=== PATIENT | male | born 1970 | race Caucasian/White ===

== ENCOUNTER 2019-12-23 07:11 | Outpatient (REF) | payer OTHER, SELFPAY ==
[2019-12-23 08:20] LABS: Cholesterol 139 mg/dL; Glucose Fasting 111 mg/dL (60-99); HDL Cholesterol 47 mg/dL; LDL Cholesterol Calculated 76 mg/dl; Triglycerides 81 mg/dL
== END 2019-12-23 07:12 | disposition home or self-care (01) ==
LOC: HO.LAB 07:11
PROVIDERS: PCP Internal Medicine; Visit Provider Internal Medicine
DX: E78.5 Hyperlipidemia, unspecified (principal)
CPT/HCPCS: 80061; 82947

== ENCOUNTER 2019-12-30 07:09 | Outpatient (REF) | payer OTHER, SELFPAY ==
[2019-12-30 07:51] LABS: MANUAL DIFF FLAG NO
[2019-12-30 07:54] LABS: Basophils Percent Auto 0.4 % (0-2); Eosinophils Absolute Auto 0.1 X10*3/uL (0.0-0.4); Eosinophils Percent Auto 0.7 % (0-4); Hematocrit 39.2 % (42-52); Hemoglobin 12.3 g/dl (14.0-18.0); Imm Gran Abs Auto 0.08 X10*3/uL (0.00-0.03); Imm Gran Pct Auto 0.8 % (0.0-0.4); Lymphocytes Absolute Auto 1.4 X10*3/uL (1.2-4.9); Lymphocytes Percent Auto 13.1 % (20-40); Mean Corpuscular HGB Conc 31.4 g/dl (31.0-36.0); Mean Corpuscular Hemoglobin 32.3 pg (27.0-33.0); Mean Corpuscular Volume 102.9 fL (80-98); Mean Platelet Volume 11.1 fL (9.4-12.4); Monocytes Absolute Auto 0.8 X10*3/uL (0.1-1.2); Monocytes Percent Auto 7.6 % (2-11); Neut%MD 77.4 %; Neutrophils Absolute Auto 8.1 X10*3/uL (2.0-8.3); Neutrophils Percent Auto 77.4 % (45-73); Platelet Count 202 X10*3/uL (160-400); Red Blood Count 3.81 X10*6/uL (4.60-5.80); Red Cell Distribution Width 12.9 % (11.0-16.0); WBCANC 10.4 X10*3/uL; White Blood Count 10.4 X10*3/uL (4.8-10.8)
== END 2019-12-30 07:10 | disposition home or self-care (01) ==
LOC: HO.LABR 07:09
PROVIDERS: PCP Internal Medicine; Visit Provider Psychiatry & Neurology Psychiatry
DX: Z79.899 Other long term (current) drug therapy (principal)
CPT/HCPCS: 36415; 85025

== ENCOUNTER 2020-01-03 14:52 | Outpatient (REF) | payer OTHER, SELFPAY | END 2020-01-03 14:53 | disposition home or self-care (01) | LOC: HO.LAB 14:52 | PROVIDERS: PCP Internal Medicine; Visit Provider Internal Medicine | DX: Z13.89 Encounter for screening for other disorder (principal) ==

== ENCOUNTER 2020-02-06 15:05 | Inpatient (IN) | payer OTHER, SELFPAY ==
[2020-02-06 15:47] VITALS: BP 142/86; PULSE 100; RESP 18; TEMP 37.3; O2SAT 98; BMI 25.6
--- NOTE | 2020-02-06 15:50 | ED.PSYCH ---
HPI - Psych General Chief Complaint: Psychiatric Symptoms Stated Complaint: crisis Time Seen by Provider: 02/06/20 15:50 Source: patient Mode of arrival: ambulatory Limitations: no limitations History of Present Illness HPI Narrative: This is a 50-year-old male presents ambulatory via triage apparently comes to the emergency room as advised by his therapist for disorganized behavior/delusional behavior. Patient reports he has history of schizoaffective disorder however in his primary care note is only documented history of bipolar disorder he is on several mood stabilizers and reports that he feels he is overmedicated and would like to have his medications check. Patient upon interview offers no medical complaints but does states that he was wrongly diagnosed in 1985 with schizoaffective disorder after he reported his suspicions on ?the clearing? of 1975; where airway had their memories ?erased?. Patient is calm states he has been running more poems recently. Denies any suicidal homicidal ideation. complaint: hallucinations Onset (ago): day(s) Relieving factors: none Exacerbating factors: none Related Data Home Medications Medication Instructions Recorded Confirmed albuterol sulfate 2 puff INHALATION Q4H 12/29/19 02/06/20 benztropine 1 tab PO DAILY 12/29/19 02/06/20 docusate sodium [DOK] 1 cap PO BID 12/29/19 02/06/20 famotidine 2 tab PO BID 12/29/19 01/26/20 fluticasone propion-salmeterol 1 puff PO BID 12/29/19 02/06/20 [Wixela Inhub] ibuprofen 1 tab PO Q8H 12/29/19 01/26/20 lithium carbonate 2 tab PO BID 12/29/19 02/06/20 perphenazine 1 tab PO TID 12/29/19 02/06/20 tamsulosin 1 cap PO DAILY 12/29/19 02/06/20 vitamin E 1 cap PO BID 12/29/19 02/06/20 clozapine 100 mg tablet 500 mg PO BEDTIME 01/26/20 02/06/20 hydroxyzine pamoate 1 cap PO TID PRN 02/06/20 02/06/20 perphenazine 2 mg PO BID-TID 02/06/20 02/06/20 Previous Rx's Medication Instructions Recorded cimetidine 300 mg tablet 300 mg PO Q12H #180 tab 10/22/20 lovastatin 40 mg tablet 40 mg PO DAILY #90 tab 01/29/20 Allergies Allergy/AdvReac Type Severity Reaction Status Date / Time divalproex sodium Allergy Severe PANCREATITI Verified 01/26/20 14:46 [From DEPAKOTE] S haloperidol [From Haldol] Allergy Intermediate DYSTONIC Verified 01/26/20 14:46 REACTION Review of Systems Review of Systems: Constitutional: No Weight loss, No Fever, No Chills, No Night Sweats, No Fatigue, No Malaise ENT/Mouth: No Hearing loss, No Ear Pain, No Nasal Congestion, No Sinus Pain, No Hoarseness, No sore throat, No Rhinorrhea, No Swallowing Difficulty Eyes: No Eye Pain, No Swelling, No Redness, No Foreign Body, No Discharge, No Vision Changes Cardiovascular: No Chest Pain, No SOB, No Dyspnea on Exertion, No Orthopnea, No Edema, No Palpitations Respiratory: No Cough, No Sputum, No Wheezing, No Smoke Exposure, No Dyspnea Gastrointestinal: No Nausea, No Vomiting, No Diarrhea, No Constipation, No abdominal Pain, No Hematochezia, No Melena Genitourinary: no irregular bleeding, No Dysuria, No Urinary Frequency, No Hematuria, No Urinary Incontinence, No Urgency, No Flank Pain, No Urinary Flow Changes, No Hesitancy Musculoskeletal: No joint pain, No Myalgias, No Joint Swelling Skin: No Skin Lesions, No rash Neuro: No Weakness, No Numbness, No Paresthesias, No Loss of Consciousness, No Dizziness, No Headache Psych: As noted in HPI, No Depression, No SI/HI/AH/VH, No Social Issues Heme/Lymph: No Bruising, No Bleeding,No Lymphadenopathy Endocrine: No Polyuria, No Polydipsia, No Temperature Intolerance Yes all other systems are reviewed and are negative [facility] Past Medical History Medical History COPD (chronic obstructive pulmonary disease) Elevated cholesterol GERD (gastroesophageal reflux disease) Schizoaffective disorder Surgical History History of bilateral cataract extraction History of bunionectomy History of excision of mass Family History Family History (Updated 12/28/19 @ 10:13 by GARY Moore) Father Diabetes Mother No problems noted. Paternal Grandfather Gastric cancer Social History Social History Alcohol intake: current Alcohol intake frequency: a few times a month Alcohol type: beer Smoking Status: Current every day smoker Packs Per Day: 1 Cigarettes Per Day: 20.0 Years Smoked: 36 Smoked in Last 30 Days: Yes Second Hand Smoke Exposure: No Use of substances other than those prescribed or required for medical reasons: No Advance Directives: No Advance Directives Information Provided: Yes Physical Exam Vital Signs: Vital Signs: Last Vital Signs Temp 99.2 F 02/06/20 16:03 Pulse 100 02/06/20 16:03 Resp 18 02/06/20 16:03 BP 142/86 H 02/06/20 16:03 Pulse Ox 98 02/06/20 16:03 Body Mass Index 25.6 Reviewed Const: Other: disheveled appearing General: cooperative; No acute distress or intoxicated appearing Nutritional Appearance: average body habitus Orientation/consciousness: patient oriented x3 HENMT: Head: Yes normal to inspection Ears: hearing grossly normal bilaterally Eyes: General: appearance normal, both eyes and all related structures Visual Jerez: normal visual jerez by confrontation Neck: Neck: Yes normal visual inspection and No tender Thyroid: Thyroid normal Chest: Chest palpation & inspection: normal inspection of the chest Resp: Effort & Inspection: normal respiratory effort Cardio: Jugular venous distension: no JVD GI: Inspection: Yes normal to inspection Percussion: Yes normal to percussion Auscultation: normal bowel sounds : General: Yes no CVA tenderness Back/Spine/Pelvis: Back: no CVA tenderness Skin: General skin exam: no rashes or lesions noted Neuro: General: patient oriented x3 Extrem: General: Yes normal to inspection Course Course Course Narrative: 1550 Offers no medical complaints. Will go ahead initiate medical screening labs as well as lithium level and COVID-19 for medical clearance and obtain psychiatric evaluation by crisis team. Plan reviewed patient agreeable. 2000 Has remained stable throughout the course of the ED stay here. Lab work overall stable with UA still pending. I was informed that [facility] and had already evaluated patient the field and is a bed search already. Medically clear at this time for psychiatric placement. 2100 Sign-out to Patricia SOFIA pending psychiatric placement offers no other complaints. Med rec completed. He is on Clozaril psych consult placed. MDM - Psych Restraints Face to Face Assessment: Face to Face Assessment: Current Situation: After assessment of the patient, a review of the pertinent medical record and a discussion with nursing staff, I feel the patient requires a restrain intervention. Reaction To: [] Medical Condition: [] Behavioral State: [] Continued Need: [] Lab Data Result diagrams: 02/06/20 16:22 02/06/20 16:22 Labs: Lab Results 02/06/20 02/06/20 02/06/20 Range/Units 16:22 16:22 16:22 WBC 12.1 H (4.8-10.8) X10*3/uL RBC 4.37 L (4.60-5.80) X10*6/uL Hgb 14.0 (14.0-18.0) g/dl Hct 43.3 (42-52) % MCV 99.1 H (80-98) fL MCH 32.0 (27.0-33.0) pg MCHC 32.3 (31.0-36.0) g/dl RDW 12.7 (11.0-16.0) % Plt Count 220 (160-400) X10*3/uL MPV 10.4 (9.4-12.4) fL Immature Gran % (Auto) 0.5 H (0.0-0.4) % Neut % (Auto) 78.2 H (45-73) % Lymph % (Auto) 14.4 L (20-40) % [place] % (Auto) 5.9 (2-11) % Eos % (Auto) 0.7 (0-4) % Baso % (Auto) 0.3 (0-2) % Lymph # (Auto) 1.7 (1.2-4.9) X10*3/uL [place] # (Auto) 0.7 (0.1-1.2) X10*3/uL Eos # (Auto) 0.1 (0.0-0.4) X10*3/uL Baso # (Auto) 0.0 (0.0-0.2) X10*3/uL Abs Immat Gran (auto) 0.06 H (0.00-0.03) X10*3/uL Absolute Neuts (auto) 9.5 H (2.0-8.3) X10*3/uL Absolute Nucleated RBC 0.000 (0.0-0.012) X10*3/uL Nucleated RBC % (auto) 0.0 (0.0-0.2) /100WBC Sodium 138 (135-145) mmol/L Potassium 4.4 (3.3-5.1) mmol/l Chloride 105 (96-108) mmol/L Carbon Dioxide 25 (22-29) mmol/L Anion Gap 12 (12-20) BUN 12 (9-16) mg/dL Creatinine 1.00 (0.5-1.4) mg/dL Estim Creat Clear Calc 105.6 Estimated GFR > 60 Random Glucose 99 (60-115) mg/dL Calcium 9.0 (8.4-10.2) mg/dL Total Bilirubin 1.4 H (0.0-1.0) mg/dL AST 13 (5-37) U/L ALT 19 (0-40) U/L Alkaline Phosphatase 78 (39-117) U/L Total Protein 7.0 (6.5-8.0) g/dL Albumin 4.5 (3.5-5.0) g/dL Urine Color Urine Appearance Urine pH (5.0-8.0) Ur Specific [place] (1.005-1.025) Urine Protein (NEG-TRACE) MG/DL Urine Glucose (UA) (NEG) MG/DL Urine Ketones (NEG) MG/DL Urine Blood (NEG) Urine Nitrite (NEG) Ur Leukocyte Esterase (NEG) Urine Opiates Screen (Not Detect) Ur Barbiturates Screen (Not Detect) Ur Phencyclidine Scrn (Not Detect) Ur Amphetamines Screen (Not Detect) U Benzodiazepines Scrn (Not Detect) [place] 0.88 (0.60-1.20) mmol/L Urine Cocaine Screen (Not Detect) U Marijuana (THC) Screen (Not Detect) Ethyl Alcohol mg/dL COVID-19 (CARLY) (Negative) COVID-19 Clin Com 02/06/20 02/06/20 02/06/20 Range/Units 16:22 16:26 19:46 WBC (4.8-10.8) X10*3/uL RBC (4.60-5.80) X10*6/uL Hgb (14.0-18.0) g/dl Hct (42-52) % MCV (80-98) fL MCH (27.0-33.0) pg MCHC (31.0-36.0) g/dl RDW (11.0-16.0) % Plt Count (160-400) X10*3/uL MPV (9.4-12.4) fL Immature Gran % (Auto) (0.0-0.4) % Neut % (Auto) (45-73) % Lymph % (Auto) (20-40) % [place] % (Auto) (2-11) % Eos % (Auto) (0-4) % Baso % (Auto) (0-2) % Lymph # (Auto) (1.2-4.9) X10*3/uL [place] # (Auto) (0.1-1.2) X10*3/uL Eos # (Auto) (0.0-0.4) X10*3/uL Baso # (Auto) (0.0-0.2) X10*3/uL Abs Immat Gran (auto) (0.00-0.03) X10*3/uL Absolute Neuts (auto) (2.0-8.3) X10*3/uL Absolute Nucleated RBC (0.0-0.012) X10*3/uL Nucleated RBC % (auto) (0.0-0.2) /100WBC Sodium (135-145) mmol/L Potassium (3.3-5.1) mmol/l Chloride (96-108) mmol/L Carbon Dioxide (22-29) mmol/L Anion Gap (12-20) BUN (9-16) mg/dL Creatinine (0.5-1.4) mg/dL Estim Creat Clear Calc Estimated GFR Random Glucose (60-115) mg/dL Calcium (8.4-10.2) mg/dL Total Bilirubin (0.0-1.0) mg/dL AST (5-37) U/L ALT (0-40) U/L Alkaline Phosphatase (39-117) U/L Total Protein (6.5-8.0) g/dL Albumin (3.5-5.0) g/dL Urine Color YELLOW Urine Appearance CLEAR Urine pH 7.0 (5.0-8.0) Ur Specific [place] 1.015 (1.005-1.025) Urine Protein NEG (NEG-TRACE) MG/DL Urine Glucose (UA) NEG (NEG) MG/DL Urine Ketones NEG (NEG) MG/DL Urine Blood NEG (NEG) Urine Nitrite NEG (NEG) Ur Leukocyte Esterase NEG (NEG) Urine Opiates Screen (Not Detect) Ur Barbiturates Screen (Not Detect) Ur Phencyclidine Scrn (Not Detect) Ur Amphetamines Screen (Not Detect) U Benzodiazepines Scrn (Not Detect) [place] (0.60-1.20) mmol/L Urine Cocaine Screen (Not Detect) U Marijuana (THC) Screen (Not Detect) Ethyl Alcohol < 10 mg/dL COVID-19 (CARLY) Negative (Negative) COVID-19 Clin Com See Note 02/06/20 Range/Units 19:46 WBC (4.8-10.8) X10*3/uL RBC (4.60-5.80) X10*6/uL Hgb (14.0-18.0) g/dl Hct (42-52) % MCV (80-98) fL MCH (27.0-33.0) pg MCHC (31.0-36.0) g/dl RDW (11.0-16.0) % Plt Count (160-400) X10*3/uL MPV (9.4-12.4) fL Immature Gran % (Auto) (0.0-0.4) % Neut % (Auto) (45-73) % Lymph % (Auto) (20-40) % [place] % (Auto) (2-11) % Eos % (Auto) (0-4) % Baso % (Auto) (0-2) % Lymph # (Auto) (1.2-4.9) X10*3/uL [place] # (Auto) (0.1-1.2) X10*3/uL Eos # (Auto) (0.0-0.4) X10*3/uL Baso # (Auto) (0.0-0.2) X10*3/uL Abs Immat Gran (auto) (0.00-0.03) X10*3/uL Absolute Neuts (auto) (2.0-8.3) X10*3/uL Absolute Nucleated RBC (0.0-0.012) X10*3/uL Nucleated RBC % (auto) (0.0-0.2) /100WBC Sodium (135-145) mmol/L Potassium (3.3-5.1) mmol/l Chloride (96-108) mmol/L Carbon Dioxide (22-29) mmol/L Anion Gap (12-20) BUN (9-16) mg/dL Creatinine (0.5-1.4) mg/dL Estim Creat Clear Calc Estimated GFR Random Glucose (60-115) mg/dL Calcium (8.4-10.2) mg/dL Total Bilirubin (0.0-1.0) mg/dL AST (5-37) U/L ALT (0-40) U/L Alkaline Phosphatase (39-117) U/L Total Protein (6.5-8.0) g/dL Albumin (3.5-5.0) g/dL Urine Color Urine Appearance Urine pH (5.0-8.0) Ur Specific [place] (1.005-1.025) Urine Protein (NEG-TRACE) MG/DL Urine Glucose (UA) (NEG) MG/DL Urine Ketones (NEG) MG/DL Urine Blood (NEG) Urine Nitrite (NEG) Ur Leukocyte Esterase (NEG) Urine Opiates Screen Not Detected (Not Detect) Ur Barbiturates Screen Not Detected (Not Detect) Ur Phencyclidine Scrn Not Detected (Not Detect) Ur Amphetamines Screen Not Detected (Not Detect) U Benzodiazepines Scrn Not Detected (Not Detect) [place] (0.60-1.20) mmol/L Urine Cocaine Screen Not Detected (Not Detect) U Marijuana (THC) Screen Not Detected (Not Detect) Ethyl Alcohol mg/dL COVID-19 (CARLY) (Negative) COVID-19 Clin Com Discharge Plan Discharge Clinical Impression: Bipolar disorder, Depression Prescriptions: No Action cimetidine 300 mg tablet 300 mg PO Q12H Qty: 180 RF: 8 lovastatin 40 mg tablet 40 mg PO DAILY Qty: 90 RF: 0 perphenazine 4 mg tablet 2 mg PO BID-TID RF: 0 hydroxyzine pamoate 50 mg capsule 1 cap PO TID PRN (Reason: Anxiety) RF: 0 fluticasone propion-salmeterol [Wixela Inhub] 250-50 mcg/dose blister with device 1 puff PO BID RF: 0 ibuprofen 800 mg tablet 1 tab PO Q8H RF: 0 lithium carbonate 300 mg tablet extended release 2 tab PO BID RF: 0 famotidine 20 mg tablet 2 tab PO BID RF: 0 tamsulosin 0.4 mg capsule 1 cap PO DAILY RF: 0 benztropine 1 mg tablet 1 tab PO DAILY RF: 0 docusate sodium [DOK] 100 mg capsule 1 cap PO BID RF: 0 albuterol sulfate 90 mcg/actuation HFA aerosol inhaler 2 puff inhalation Q4H RF: 0 vitamin E 400 unit capsule 1 cap PO BID RF: 0 perphenazine 16 mg tablet 1 tab PO TID RF: 0 clozapine 100 mg tablet 500 mg PO BEDTIME RF: 0
[2020-02-06 16:03] VITALS: BP 142/86; PULSE 100; RESP 18; TEMP 37.3; O2SAT 98
[2020-02-06 16:27] LABS: MANUAL DIFF FLAG NO
[2020-02-06 16:31] LABS: Basophils Percent Auto 0.3 % (0-2); Eosinophils Absolute Auto 0.1 X10*3/uL (0.0-0.4); Eosinophils Percent Auto 0.7 % (0-4); Hematocrit 43.3 % (42-52); Imm Gran Abs Auto 0.06 X10*3/uL (0.00-0.03); Imm Gran Pct Auto 0.5 % (0.0-0.4); Lymphocytes Absolute Auto 1.7 X10*3/uL (1.2-4.9); Lymphocytes Percent Auto 14.4 % (20-40); Mean Corpuscular HGB Conc 32.3 g/dl (31.0-36.0); Mean Corpuscular Volume 99.1 fL (80-98); Mean Platelet Volume 10.4 fL (9.4-12.4); Monocytes Absolute Auto 0.7 X10*3/uL (0.1-1.2); Monocytes Percent Auto 5.9 % (2-11); Neutrophils Absolute Auto 9.5 X10*3/uL (2.0-8.3); Neutrophils Percent Auto 78.2 % (45-73); Platelet Count 220 X10*3/uL (160-400); Red Blood Count 4.37 X10*6/uL (4.60-5.80); Red Cell Distribution Width 12.7 % (11.0-16.0); White Blood Count 12.1 X10*3/uL (4.8-10.8)
[2020-02-06 16:49] LABS: COVID-19 Test Negative (Negative); IDNOW Serial# 9DD0AD1C
[2020-02-06 16:51] LABS: Lithium 0.88 mmol/L (0.60-1.20)
[2020-02-06 16:56] LABS: Ethanol < 10 mg/dL
[2020-02-06 16:58] LABS: Alanine Aminotransferase 19 U/L (0-40); Albumin Level 4.5 g/dL (3.5-5.0); Alkaline Phosphatase 78 U/L (39-117); Anion Gap 12 (12-20); Aspartate Amino Transferase 13 U/L (5-37); Bilirubin Total 1.4 mg/dL (0.0-1.0); Blood Urea Nitrogen 12 mg/dL (9-16); Carbon Dioxide 25 mmol/L (22-29); Chloride 105 mmol/L (96-108); Creatinine Clr Calc Pharmacy 105.6; Estimated Glomerular Filt Rate > 60; Glucose Random 99 mg/dL (60-115); Potassium 4.4 mmol/l (3.3-5.1); Sodium 138 mmol/L (135-145)
--- NOTE | 2020-02-06 19:31 | PC.NURSE ---
Patient just showered/changed attire/provided urine sample/sent to lab/pending result/denied distress/cam & cooperative/communicates need well/will continue to monitor.
[2020-02-06] MEDS: Lithium Carbonate ER 300 MG TABLET.ER 600 MG PO (19:59)
[2020-02-06] MEDS: Docusate Sodium 100 MG CAPSULE PO (19:59)
[2020-02-06] MEDS: Perphenazine 8 MG TABLET 16 MG PO (19:59)
[2020-02-06 20:15] LABS: Glucose Urine UA NEG (NEG); Leukocyte Esterase Urine NEG (NEG); Nitrite Urine NEG (NEG); Specific Gravity - Urine 1.015 (1.005-1.025); Urine Blood NEG (NEG); Urine Ketones NEG (NEG); Urine Protein NEG (NEG-TRACE)
[2020-02-06] MEDS: Famotidine 20 MG TABLET PO (20:15)
[2020-02-06 20:20] LABS: Amphetamine Screen Urine Not Detected (Not Detect); Appearance Urine CLEAR; Barbiturates, Urine Not Detected (Not Detect); Benzodiazepines Screen Urine Not Detected (Not Detect); Cannabinoid Screen Urine Not Detected (Not Detect); Cocaine Screen Urine Not Detected (Not Detect); Color Urine YELLOW; Opiate Screen Urine Not Detected (Not Detect); Phencyclidine Screen Urine Not Detected (Not Detect)
--- NOTE | 2020-02-06 20:38 | PC.NURSE ---
Patient compliant with HS PO medication, patient has good insight of medication, clozaril was not approved by the provider because patient strongly beliefs that SOB that he experienced during night is from Clozaril/ per patient research supports SOB as rare side effects of Clozaril. Patient calm and pleasant. will continue to monitor.
[2020-02-06] MEDS: hydrOXYzine HCL 50 MG TABLET PO (21:03)
--- NOTE | 2020-02-06 21:15 | PC.NURSE ---
Patient reported anxiety 5/10, PRN Atarax 5 mg administered as ordered/accepted/offered warm blanket/patient back to bed, awake, lying on side, will continue to monitor.
[2020-02-06 22:02] LABS: Amorphous Sediment Urine TRACE /LPF; Mucus Urine TRACE /LPF; RBC Urine 0-2 /HPF (0); Squamous Epithelial Cell Urine TRACE /LPF; WBC Urine 0-2 /HPF (0-4)
[2020-02-06 22:03] LABS: Hyaline Casts Urine 0-2 /LPF
[2020-02-06] MEDS: Albuterol Sulfate 90 MCG 8 GM INHALER 2 PUFF INHALE (22:19)
[2020-02-06] MEDS: Perphenazine 4 MG TABLET 2 MG PO (22:19)
--- NOTE | 2020-02-06 22:20 | PC.NURSE ---
Patient in bed appears sleeping at this time, no distress observed/reported, respiration +/=/non-labored bilaterally, will continue to monitor.
[2020-02-06 23:24] VITALS: BP 104/59; PULSE 73; RESP 17; TEMP 36.6; O2SAT 96
--- NOTE | 2020-02-07 | ECG_ITS ---
Test Reason : MEDICAL CLEARANCE Blood Pressure : / mmHG Vent. Rate : 062 BPM Atrial Rate : 062 BPM P-R Int : 168 ms QRS Dur : 096 ms QT Int : 424 ms P-R-T Axes : 073 093 077 degrees QTc Int : 430 ms Normal sinus rhythm Possible Left atrial enlargement Rightward axis Septal infarct (cited on or before 04-NOV-2019) Abnormal ECG When compared with ECG of 04-NOV-2019 19:53, Questionable change in initial forces of Septal leads T wave inversion no longer evident in Inferior leads Referred By: Lovely Fierro Electronically Signed By:EMILEE BECKWITH MD
[2020-02-07 06:48] VITALS: BP 117/71; PULSE 69; RESP 17; TEMP 36.7; O2SAT 98
--- NOTE | 2020-02-07 06:49 | PC.NURSE ---
Report recieved. Pt currently watching tv, calm and cooperative, denies complaints. PT is inpatient bedsearch.
[2020-02-07] MEDS: Albuterol Sulfate 90 MCG 8 GM INHALER 2 PUFF INHALE ×3 (08:43→23:06)
[2020-02-07] MEDS: Tamsulosin HCL 0.4 MG CAPSULE PO (08:43)
[2020-02-07] MEDS: Fluticasone/Vilanterol 100/25 BLST.W.DEV 1 PUFF INHALE (08:43)
[2020-02-07] MEDS: Pravastatin Sodium 40 MG TABLET PO (08:43)
[2020-02-07] MEDS: Famotidine 20 MG TABLET PO ×2 (08:43→21:46)
[2020-02-07] MEDS: Benztropine Mesylate 1 MG TABLET PO (08:43)
[2020-02-07] MEDS: Docusate Sodium 100 MG CAPSULE PO ×2 (08:43→20:44)
[2020-02-07] MEDS: Lithium Carbonate ER 300 MG TABLET.ER 600 MG PO ×2 (08:44→20:43)
[2020-02-07] MEDS: Perphenazine 2 MG TABLET PO ×2 (08:44→20:44)
[2020-02-07] MEDS: Perphenazine 8 MG TABLET 16 MG PO ×3 (08:44→20:44)
[2020-02-07] MEDS: Nicotine Polacrilex 2 MG GUM BUCCAL (09:28)
[2020-02-07 10:40] VITALS: BP 127/84; PULSE 76; RESP 15; TEMP 36.6; O2SAT 99
[2020-02-07] MEDS: hydrOXYzine HCL 50 MG TABLET PO (10:58)
[2020-02-07 15:27] VITALS: BP 119/69; PULSE 80; RESP 18; TEMP 36.3; O2SAT 98
--- NOTE | 2020-02-07 15:36 | PC.NURSE ---
PT currently speaking with staff, calm and cooperative, pleasant in conversation. PT denies complaints, pt aware of plan for admission to later today.
--- NOTE | 2020-02-07 17:51 | MHC.CARE ---
CARE team met with this patient in ED pod room 3 to facilitate transfer/admission to . Patient is being admitted voluntarily and signed CV.
[2020-02-07 18:00] VITALS: BP 90/52; PULSE 65; RESP 16; TEMP 36.4; O2SAT 94
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
[2020-02-07] MEDS: Flu Vacc QS2020-21(6mos up)/PF 0.5 ML SYRINGE IM (20:01)
[2020-02-08 05:10] VITALS: BP 120/74; PULSE 70; RESP 16; TEMP 36.2; O2SAT 98
--- NOTE | 2020-02-08 06:36 | P.HPPS_ITS ---
HPI Chief Complaint: bipolar Sources of Information: patient interviewed, chart reviewed and crisis/core team assessment reviewed Additional Sources of Information: Old records at [facility] not accessible HPI Narrative: Self /therapisr/t referred to ED after having panic attack while driving. States Cedric Ross is messing with his mind and sending satellite signals to affect him. Feels he stops breathing bc of Clozaril. Long Hx of Schizoaffective disorder. States he is 13 the generation relative to Gamaliel Grant and Berry Ngo. Talked about the 1975 clearing when the govt erased peoples memory . Has been med compliant. Was in [facility] 01/13-01/22/20. Is well connected with [facility] providers. Hx grandiosity: I am world famous Past Psychiatric History: Hx X area hospitalizations. Last was at [facility] in 2018. M[facility] in 2008. Cloz (1990), Li (2008), Perphenazine (2012). Sees Pietro Leos APRN. Medical Evaluation Reviewed: Yes [facility] Medical History COPD (chronic obstructive pulmonary disease) Elevated cholesterol GERD (gastroesophageal reflux disease) Schizoaffective disorder Narrative: enlarged prostate Surgical History History of bilateral cataract extraction History of bunionectomy History of excision of mass Family History: None known Social History: single, no kids, never , on SSDI. B and r locally. Has 2 older and 2 younger sister. F is advocate for him. M involved too. Lives in own apt Substance History: None Trauma History: None Diagnostics Vital Signs (24Hr): Vital Signs - 24 hr 02/07/20 06:48 02/07/20 10:40 02/07/20 15:27 Temperature 98.0 F 97.9 F 97.3 F Pulse Rate 69 76 80 Respiratory Rate 17 15 18 Blood Pressure 117/71 127/84 119/69 Pulse Oximetry 98 99 98 02/07/20 18:00 Temperature 97.5 F Pulse Rate 65 Respiratory Rate 16 Blood Pressure 90/52 L Pulse Oximetry 94 Body Mass Index 25.6 Labs Results: 02/06/20 16:22 02/06/20 16:22 Labs: Laboratory Results - last 48 hr 02/06/20 02/06/20 02/06/20 16:22 16:22 16:22 WBC 12.1 H RBC 4.37 L Hgb 14.0 Hct 43.3 MCV 99.1 H MCH 32.0 MCHC 32.3 RDW 12.7 Plt Count 220 MPV 10.4 Immature Gran % (Auto) 0.5 H Neut % (Auto) 78.2 H Lymph % (Auto) 14.4 L Dunn % (Auto) 5.9 Eos % (Auto) 0.7 Baso % (Auto) 0.3 Lymph # (Auto) 1.7 Dunn # (Auto) 0.7 Eos # (Auto) 0.1 Baso # (Auto) 0.0 Abs Immat Gran (auto) 0.06 H Absolute Neuts (auto) 9.5 H Absolute Nucleated RBC 0.000 Nucleated RBC % (auto) 0.0 Sodium 138 Potassium 4.4 Chloride 105 Carbon Dioxide 25 Anion Gap 12 BUN 12 Creatinine 1.00 Estim Creat Clear Calc 105.6 Estimated GFR > 60 Random Glucose 99 Calcium 9.0 Total Bilirubin 1.4 H AST 13 ALT 19 Alkaline Phosphatase 78 Total Protein 7.0 Albumin 4.5 Urine Color Urine Appearance Urine pH Ur Specific [place] Urine Protein Urine Glucose (UA) Urine Ketones Urine Blood Urine Nitrite Ur Leukocyte Esterase Urine RBC Urine WBC Ur Squamous Epith Cells Amorphous Sediment Urine Bacteria Hyaline Casts Urine Mucus Urine Opiates Screen Ur Barbiturates Screen Ur Phencyclidine Scrn Ur Amphetamines Screen U Benzodiazepines Scrn [place] 0.88 Urine Cocaine Screen U Marijuana (THC) Screen Ethyl Alcohol COVID-19 (CARLY) COVID-19 Clin Com 02/06/20 02/06/20 02/06/20 16:22 16:26 19:46 WBC RBC Hgb Hct MCV MCH MCHC RDW Plt Count MPV Immature Gran % (Auto) Neut % (Auto) Lymph % (Auto) Dunn % (Auto) Eos % (Auto) Baso % (Auto) Lymph # (Auto) Dunn # (Auto) Eos # (Auto) Baso # (Auto) Abs Immat Gran (auto) Absolute Neuts (auto) Absolute Nucleated RBC Nucleated RBC % (auto) Sodium Potassium Chloride Carbon Dioxide Anion Gap BUN Creatinine Estim Creat Clear Calc Estimated GFR Random Glucose Calcium Total Bilirubin AST ALT Alkaline Phosphatase Total Protein Albumin Urine Color YELLOW Urine Appearance CLEAR Urine pH 7.0 Ur Specific [place] 1.015 Urine Protein NEG Urine Glucose (UA) NEG Urine Ketones NEG Urine Blood NEG Urine Nitrite NEG Ur Leukocyte Esterase NEG Urine RBC 0-2 Urine WBC 0-2 Ur Squamous Epith Cells TRACE Amorphous Sediment TRACE Urine Bacteria NONE Hyaline Casts 0-2 Urine Mucus TRACE Urine Opiates Screen Ur Barbiturates Screen Ur Phencyclidine Scrn Ur Amphetamines Screen U Benzodiazepines Scrn [place] Urine Cocaine Screen U Marijuana (THC) Screen Ethyl Alcohol < 10 COVID-19 (CARLY) Negative COVID-19 Clin Com See Note 02/06/20 19:46 WBC RBC Hgb Hct MCV MCH MCHC RDW Plt Count MPV Immature Gran % (Auto) Neut % (Auto) Lymph % (Auto) Dunn % (Auto) Eos % (Auto) Baso % (Auto) Lymph # (Auto) Dunn # (Auto) Eos # (Auto) Baso # (Auto) Abs Immat Gran (auto) Absolute Neuts (auto) Absolute Nucleated RBC Nucleated RBC % (auto) Sodium Potassium Chloride Carbon Dioxide Anion Gap BUN Creatinine Estim Creat Clear Calc Estimated GFR Random Glucose Calcium Total Bilirubin AST ALT Alkaline Phosphatase Total Protein Albumin Urine Color Urine Appearance Urine pH Ur Specific [place] Urine Protein Urine Glucose (UA) Urine Ketones Urine Blood Urine Nitrite Ur Leukocyte Esterase Urine RBC Urine WBC Ur Squamous Epith Cells Amorphous Sediment Urine Bacteria Hyaline Casts Urine Mucus Urine Opiates Screen Not Detected Ur Barbiturates Screen Not Detected Ur Phencyclidine Scrn Not Detected Ur Amphetamines Screen Not Detected U Benzodiazepines Scrn Not Detected [place] Urine Cocaine Screen Not Detected U Marijuana (THC) Screen Not Detected Ethyl Alcohol COVID-19 (CARLY) COVID-19 Clin Com Meds/Allergies Meds Home Medications Acetaminophen (Acetaminophen 325 Mg Tablet) 650 mg PO Q6H PRN PRN Reason: Headache/Pain Mild Scale (1-3) Al Hydroxide/Mg Hydroxide (Magnesium Hydrox/Alum Hydrox 30 Ml Oral.Susp) 30 ml PO Q6H PRN PRN Reason: Heartburn/Nausea Albuterol Sulfate (Albuterol Sulfate 90 Mcg 8 Gm Inhaler) 2 puff INHALE Q4H [facility] Last Admin: 02/08/20 11:26 Dose: Not Given Documented by: Benztropine Mesylate (Benztropine Mesylate 1 Mg Tablet) 1 mg PO DAILY [facility] Last Admin: 02/08/20 08:31 Dose: 1 mg Documented by: Docusate Sodium (Docusate Sodium 100 Mg Capsule) 100 mg PO BID [facility] Last Admin: 02/08/20 08:30 Dose: 100 mg Documented by: Famotidine (Famotidine 20 Mg Tablet) 20 mg PO BID [facility] Last Admin: 02/08/20 08:31 Dose: 20 mg Documented by: Fluticasone/Vilanterol (Fluticasone/Vilanterol 100/25 Blst.W.Dev) 1 puff INHALE RDAILY [facility] Last Admin: 02/08/20 08:31 Dose: 1 puff Documented by: Hydroxyzine HCl (Hydroxyzine Hcl 50 Mg Tablet) 50 mg PO TID PRN PRN Reason: Anxiety Last Admin: 02/08/20 10:49 Dose: 50 mg Documented by: [place] Carbonate ([place] Carbonate Er 300 Mg Tablet.Er) 600 mg PO BID [facility] Last Admin: 02/08/20 08:30 Dose: 600 mg Documented by: Magnesium Hydroxide (Milk Of Magnesia 30 Ml Oral.Susp) 30 ml PO DAILY PRN PRN Reason: Constipation Nicotine (Nicotine 21 Mg Patch.Td24) 21 mg TRANSDERMA DAILY [facility] Last Admin: 02/08/20 08:34 Dose: Not Given Documented by: Perphenazine (Perphenazine 8 Mg Tablet) 16 mg PO TID [facility] Last Admin: 02/08/20 08:31 Dose: 16 mg Documented by: Perphenazine (Perphenazine 2 Mg Tablet) 2 mg PO BID [facility] Last Admin: 02/08/20 08:31 Dose: 2 mg Documented by: Pravastatin Sodium (Pravastatin Sodium 40 Mg Tablet) 40 mg PO DAILY [facility] Last Admin: 02/08/20 08:31 Dose: 40 mg Documented by: Tamsulosin HCl (Tamsulosin Hcl 0.4 Mg Capsule) 0.4 mg PO DAILY [facility] Last Admin: 02/08/20 08:31 Dose: 0.4 mg Documented by: Trazodone HCl (Trazodone Hcl 50 Mg Tablet) 50 mg PO BEDTIME PRN PRN Reason: Insomnia Vitamin E (Vitamin E (Dl,Tocopheryl Acet) 180 Mg (400 Unit) Capsule) 180 mg PO DAILY [facility] Last Admin: 02/08/20 08:31 Dose: 180 mg Documented by: Allergies Allergies Allergy/AdvReac Type Severity Reaction Status Date / Time divalproex sodium Allergy Severe PANCREATITI Verified 01/26/20 14:46 [From DEPAKOTE] S haloperidol [From Haldol] Allergy Intermediate DYSTONIC Verified 01/26/20 14:46 REACTION Mental Status Exam Mental Status Exam Patient Appearance: Appropriate and Unkempt Patient Orientation: Person, Place, Time and Situation Level of Consciousness: Awake Patient Behavior: Appropriate, Guarded and Fearful Mood Description: Appropriate and Flat Affect Description: Anxious Patient Cognition Impaired: No Ability to Follow Directions: Excellent Speech Pattern: Clear Memory Description: Intact Hallucinations: None Delusions: Being Controlled, Paranoid Ideation, Grandiose, Thought Insert/Delete, Ideas of Reference and Bizarre Thought Process: Intact Thought Content: positive for Suicidal Ideation (denies) and positive for Homicidal Ideation (denies) Abnormal Motor Activity Signs and Symptoms: Tremors (tics noted) Judgement: Poor Assessment & Plan Assessment & Plan (1) Schizoaffective disorder: Status: Acute Code(s): F25.9 - Schizoaffective disorder, unspecified Assessment and Plan: q15/cv Collateral. I left msg for ALANNA Leos Ct meds Check Cloz level ? early TD. Groups Patient educated on: diagnosis Informed Consent: understands Reason for continued inpatient stay Substantial Risk for: inability to function and rapid decompensation
[2020-02-08 07:00] VITALS: BMI 25.3
[2020-02-08] MEDS: Docusate Sodium 100 MG CAPSULE PO ×2 (08:30→20:13)
[2020-02-08] MEDS: Lithium Carbonate ER 300 MG TABLET.ER 600 MG PO ×2 (08:30→20:13)
[2020-02-08] MEDS: Vitamin E (Dl,Tocopheryl Acet) 180 MG (400 UNIT) CAPSULE PO (08:31)
[2020-02-08] MEDS: Tamsulosin HCL 0.4 MG CAPSULE PO (08:31)
[2020-02-08] MEDS: Pravastatin Sodium 40 MG TABLET PO (08:31)
[2020-02-08] MEDS: Famotidine 20 MG TABLET PO ×2 (08:31→20:13)
[2020-02-08] MEDS: Benztropine Mesylate 1 MG TABLET PO (08:31)
[2020-02-08] MEDS: Perphenazine 2 MG TABLET PO ×2 (08:31→20:13)
[2020-02-08] MEDS: Perphenazine 8 MG TABLET 16 MG PO ×3 (08:31→20:13)
[2020-02-08] MEDS: Fluticasone/Vilanterol 100/25 BLST.W.DEV 1 PUFF INHALE (08:31)
[2020-02-08] MEDS: hydrOXYzine HCL 50 MG TABLET PO ×2 (10:49→16:18)
[2020-02-08] MEDS: Magnesium Citrate 300 ML SOLUTION 150 ML PO (14:15)
[2020-02-08 18:00] VITALS: BP 119/68; PULSE 72; TEMP 36.3
[2020-02-09 05:10] VITALS: BP 117/66; PULSE 60; RESP 16; TEMP 36.4; O2SAT 97
--- NOTE | 2020-02-09 06:22 | HO.PSYCHPN ---
Subjective Subjective Date of Service: 02/09/20 Reason For Visit: bipolar Subjective Notes: Conditional Voluntary Interim History: Remains psychotic but quiet blank look. Responses are delayed. Ct med changes. Cloz pending. Early TD noted Medication Compliance: Yes Side effects from medications: Yes Attending Groups: Yes Review of Systems Review of Systems Constitutional: No Weight loss, No Fever, No Chills, No Night Sweats, No Fatigue, No Malaise ENT/Mouth: No Hearing loss, No Ear Pain, No Nasal Congestion, No Sinus Pain, No Hoarseness, No sore throat, No Rhinorrhea, No Swallowing Difficulty Eyes: No Eye Pain, No Swelling, No Redness, No Foreign Body, No Discharge, No Vision Changes Cardiovascular: No Chest Pain, No SOB, No Dyspnea on Exertion, No Orthopnea, No Edema, No Palpitations Respiratory: No Cough, No Sputum, No Wheezing, No Smoke Exposure, No Dyspnea Gastrointestinal: No Nausea, No Vomiting, No Diarrhea, No Constipation, No abdominal Pain, No Hematochezia, No Melena Genitourinary: no irregular bleeding, No Dysuria, No Urinary Frequency, No Hematuria, No Urinary Incontinence, No Urgency, No Flank Pain, No Urinary Flow Changes, No Hesitancy Musculoskeletal: No joint pain, No Myalgias, No Joint Swelling Skin: No Skin Lesions, No rash Neuro: No Weakness, No Numbness, No Paresthesias, No Loss of Consciousness, No Dizziness, No Headache Psych: As noted in HPI, No Depression, No SI/HI/AH/VH, No Social Issues Heme/Lymph: No Bruising, No Bleeding,No Lymphadenopathy Endocrine: No Polyuria, No Polydipsia, No Temperature Intolerance Mental Status Exam Mental Status Exam Patient Appearance: Appropriate and Unkempt Patient Orientation: Person, Place, Time and Situation Level of Consciousness: Awake Patient Behavior: Appropriate, Guarded and Fearful Mood Description: Appropriate and Flat Affect Description: Anxious Patient Cognition Impaired: No Ability to Follow Directions: Excellent Speech Pattern: Clear Memory Description: Intact Diagnostics Vital Signs (24Hr): Vital Signs - 24 hr 02/08/20 18:00 Temperature 97.4 F Pulse Rate 72 Blood Pressure 119/68 Body Mass Index 25.3 Labs Results: 02/06/20 16:22 02/06/20 16:22 Medications Medications Current Medications Generic Name Dose Route Start Last Admin Trade Name Freq PRN Reason Stop Dose Admin Acetaminophen 650 mg 02/07/20 16:35 Acetaminophen 325 Mg Tablet PO Q6H PRN Headache/Pain Mild Scale (1-3) Al Hydroxide/Mg Hydroxide 30 ml 02/07/20 16:35 Magnesium Hydrox/Alum Hydrox 30 Ml Oral.Susp PO Q6H PRN Heartburn/Nausea Albuterol Sulfate 2 puff 02/08/20 13:43 Albuterol Sulfate 90 Mcg 8 Gm Inhaler INHALE Q4H PRN Shortness of Breath/Wheezing Benztropine Mesylate 1 mg 02/07/20 09:00 02/08/20 08:31 Benztropine Mesylate 1 Mg Tablet PO 1 mg DAILY [facility]Y Administration Docusate Sodium 100 mg 02/06/20 21:00 02/08/20 20:13 Docusate Sodium 100 Mg Capsule PO 100 mg BID [facility]Y Administration Famotidine 20 mg 02/06/20 21:00 02/08/20 20:13 Famotidine 20 Mg Tablet PO 20 mg BID [facility]Y Administration Fluticasone/Vilanterol 1 puff 02/07/20 08:00 02/08/20 08:31 Fluticasone/Vilanterol 100/25 Blst.W.Dev INHALE 1 puff RDAILY [facility] Administration Hydroxyzine HCl 50 mg 02/06/20 18:39 02/08/20 16:18 Hydroxyzine Hcl 50 Mg Tablet PO 50 mg TID PRN Administration Anxiety [place] Carbonate 600 mg 02/06/20 21:00 02/08/20 20:13 [place] Carbonate Er 300 Mg Tablet.Er PO 600 mg BID [facility]Y Administration Magnesium Hydroxide 30 ml 02/07/20 16:35 Milk Of Magnesia 30 Ml Oral.Susp PO DAILY PRN Constipation Nicotine 21 mg 02/07/20 16:40 02/08/20 08:34 Nicotine 21 Mg Patch.Td24 TRANSDERMA Not Given DAILY [facility]Y Perphenazine 16 mg 02/06/20 21:00 02/08/20 20:13 Perphenazine 8 Mg Tablet PO 16 mg TID [facility]Y Administration Perphenazine 2 mg 02/07/20 09:00 02/08/20 20:13 Perphenazine 2 Mg Tablet PO 2 mg BID [facility] Administration Pravastatin Sodium 40 mg 02/07/20 09:00 02/08/20 08:31 Pravastatin Sodium 40 Mg Tablet PO 40 mg DAILY [facility] Administration Tamsulosin HCl 0.4 mg 02/07/20 09:00 02/08/20 08:31 Tamsulosin Hcl 0.4 Mg Capsule PO 0.4 mg DAILY [facility] Administration Trazodone HCl 50 mg 02/07/20 16:35 Trazodone Hcl 50 Mg Tablet PO BEDTIME PRN Insomnia Vitamin E 180 mg 02/08/20 09:00 02/08/20 08:31 Vitamin E (Dl,Tocopheryl Acet) 180 Mg (400 Unit) Capsule PO 180 mg DAILY [facility] Administration Allergies Allergies Allergy/AdvReac Type Severity Reaction Status Date / Time divalproex sodium Allergy Severe PANCREATITI Verified 01/26/20 14:46 [From DEPAKOTE] S haloperidol [From Haldol] Allergy Intermediate DYSTONIC Verified 01/26/20 14:46 REACTION Assessment & Plan Assessment & Plan (1) Schizoaffective disorder: Status: Acute Code(s): F25.9 - Schizoaffective disorder, unspecified Assessment and Plan: q15/cv Collateral. I left ms for ALANNA Leos Ct meds Check Cloz level ? early TD. Groups Greater than 50% of the session was spent on counseling and/or coordination of care
[2020-02-09] MEDS: Lithium Carbonate ER 300 MG TABLET.ER 600 MG PO ×2 (09:20→20:29)
[2020-02-09] MEDS: Benztropine Mesylate 1 MG TABLET PO ×2 (09:20→20:29)
[2020-02-09] MEDS: Fluticasone/Vilanterol 100/25 BLST.W.DEV 1 PUFF INHALE (09:20)
[2020-02-09] MEDS: Perphenazine 2 MG TABLET PO (09:20)
[2020-02-09] MEDS: Perphenazine 8 MG TABLET 16 MG PO ×3 (09:20→20:29)
[2020-02-09] MEDS: Tamsulosin HCL 0.4 MG CAPSULE PO (09:20)
[2020-02-09] MEDS: Docusate Sodium 100 MG CAPSULE PO ×2 (09:20→20:29)
[2020-02-09] MEDS: Vitamin E (Dl,Tocopheryl Acet) 180 MG (400 UNIT) CAPSULE PO (09:20)
[2020-02-09] MEDS: Famotidine 20 MG TABLET PO ×2 (09:20→20:29)
[2020-02-09] MEDS: Pravastatin Sodium 40 MG TABLET PO (09:20)
[2020-02-09 18:00] VITALS: BP 122/66; PULSE 60; TEMP 36
[2020-02-09] MEDS: Albuterol Sulfate 90 MCG 8 GM INHALER 2 PUFF INHALE (20:33)
[2020-02-09] MEDS: hydrOXYzine HCL 50 MG TABLET PO (20:56)
[2020-02-10 06:00] VITALS: BP 130/60; PULSE 99; TEMP 36.2
[2020-02-10] MEDS: Tamsulosin HCL 0.4 MG CAPSULE PO (08:52)
[2020-02-10] MEDS: Pravastatin Sodium 40 MG TABLET PO (08:52)
[2020-02-10] MEDS: Perphenazine 8 MG TABLET 16 MG PO ×3 (08:53→20:40)
[2020-02-10] MEDS: Docusate Sodium 100 MG CAPSULE PO ×2 (08:53→20:40)
[2020-02-10] MEDS: Lithium Carbonate ER 300 MG TABLET.ER 600 MG PO ×2 (08:53→20:41)
[2020-02-10] MEDS: Famotidine 20 MG TABLET PO ×2 (08:53→20:40)
[2020-02-10] MEDS: Vitamin E (Dl,Tocopheryl Acet) 180 MG (400 UNIT) CAPSULE PO (08:53)
[2020-02-10] MEDS: Benztropine Mesylate 1 MG TABLET PO ×2 (08:54→20:40)
[2020-02-10] MEDS: Fluticasone/Vilanterol 100/25 BLST.W.DEV 1 PUFF INHALE (09:54)
[2020-02-10] MEDS: hydrOXYzine HCL 50 MG TABLET PO ×2 (09:55→18:03)
--- NOTE | 2020-02-10 10:53 | HO.PSYCHPN ---
Subjective Subjective Date of Service: 02/10/20 Reason For Visit: bipolar Subjective Notes: Conditional Voluntary Interim History: Standing in [facility] in [facility], and appropriately asking a mask Medication Compliance: Yes Side effects from medications: No Attending Groups: No Review of Systems Acute medical concerns: No Medical Review of Systems: unchanged Review of Systems: denies twitching muscles or eps Review of Systems Review of Systems denies eps/or tics Mental Status Exam Mental Status Exam Patient Appearance: Well Grooomed Patient Orientation: Person, Place and Situation Level of Consciousness: Awake Patient Behavior: Guarded, Posturing and Cooperative Mood Description: Calm Affect Description: Blunted Patient Cognition Impaired: No Ability to Follow Directions: Fair Speech Pattern: Clear and Impoverished Delusions: Paranoid Ideation ( fly me to [place] ) Thought Process: Illogical Thought Content: positive for Slowed Thinking Abnormal Motor Activity Signs and Symptoms: Psychomotor Retardation and Muscle Rigidity Judgement: Fair Diagnostics Vital Signs (24Hr): Vital Signs - 24 hr 02/09/20 18:00 02/10/20 06:00 Temperature 96.8 F 97.1 F Pulse Rate 60 99 Blood Pressure 122/66 130/60 Body Mass Index 25.3 Labs Results: 02/06/20 16:22 02/06/20 16:22 Medications Medications Current Medications Generic Name Dose Route Start Last Admin Trade Name Freq PRN Reason Stop Dose Admin Acetaminophen 650 mg 02/07/20 16:35 Acetaminophen 325 Mg Tablet PO Q6H PRN Headache/Pain Mild Scale (1-3) Al Hydroxide/Mg Hydroxide 30 ml 02/07/20 16:35 Magnesium Hydrox/Alum Hydrox 30 Ml Oral.Susp PO Q6H PRN Heartburn/Nausea Albuterol Sulfate 2 puff 02/08/20 13:43 02/09/20 20:33 Albuterol Sulfate 90 Mcg 8 Gm Inhaler INHALE 2 puff Q4H PRN Administration Shortness of Breath/Wheezing Benztropine Mesylate 1 mg 02/09/20 21:00 02/10/20 08:54 Benztropine Mesylate 1 Mg Tablet PO 1 mg BID [facility]Y Administration Docusate Sodium 100 mg 02/06/20 21:00 02/10/20 08:53 Docusate Sodium 100 Mg Capsule PO 100 mg BID [facility] Administration Famotidine 20 mg 02/06/20 21:00 02/10/20 08:53 Famotidine 20 Mg Tablet PO 20 mg BID [facility] Administration Fluticasone/Vilanterol 1 puff 02/07/20 08:00 02/10/20 09:54 Fluticasone/Vilanterol 100/25 Blst.W.Dev INHALE 1 puff RDAILY [facility] Administration Hydroxyzine HCl 50 mg 02/06/20 18:39 02/10/20 09:55 Hydroxyzine Hcl 50 Mg Tablet PO 50 mg TID PRN Administration Anxiety [place] Carbonate 600 mg 02/06/20 21:00 02/10/20 08:53 [place] Carbonate Er 300 Mg Tablet.Er PO 600 mg BID [facility]Y Administration Magnesium Hydroxide 30 ml 02/07/20 16:35 Milk Of Magnesia 30 Ml Oral.Susp PO DAILY PRN Constipation Nicotine 21 mg 02/07/20 16:40 02/10/20 10:00 Nicotine 21 Mg Patch.Td24 TRANSDERMA Not Given DAILY [facility] Perphenazine 16 mg 02/06/20 21:00 02/10/20 08:53 Perphenazine 8 Mg Tablet PO 16 mg TID [facility] Administration Pravastatin Sodium 40 mg 02/07/20 09:00 02/10/20 08:52 Pravastatin Sodium 40 Mg Tablet PO 40 mg DAILY [facility] Administration Tamsulosin HCl 0.4 mg 02/07/20 09:00 02/10/20 08:52 Tamsulosin Hcl 0.4 Mg Capsule PO 0.4 mg DAILY [facility] Administration Trazodone HCl 50 mg 02/07/20 16:35 Trazodone Hcl 50 Mg Tablet PO BEDTIME PRN Insomnia Vitamin E 180 mg 02/08/20 09:00 02/10/20 08:53 Vitamin E (Dl,Tocopheryl Acet) 180 Mg (400 Unit) Capsule PO 180 mg DAILY [facility] Administration Allergies Allergies Allergy/AdvReac Type Severity Reaction Status Date / Time divalproex sodium Allergy Severe PANCREATITI Verified 01/26/20 14:46 [From DEPAKOTE] S haloperidol [From Haldol] Allergy Intermediate DYSTONIC Verified 01/26/20 14:46 REACTION Assessment & Plan Assessment & Plan (1) Schizoaffective disorder: Status: Acute Code(s): F25.9 - Schizoaffective disorder, unspecified Assessment and Plan: restart clozapine mistakenly off it a few days Greater than 50% of the session was spent on counseling and/or coordination of care
[2020-02-10 16:38] VITALS: BP 147/78; PULSE 101; TEMP 36.6; O2SAT 96
[2020-02-10] MEDS: cloZAPine 25 MG TABLET 50 MG PO (20:40)
[2020-02-11 06:00] VITALS: BP 97/54; PULSE 55; TEMP 36.4
[2020-02-11] MEDS: Fluticasone/Vilanterol 100/25 BLST.W.DEV 1 PUFF INHALE (09:28)
[2020-02-11] MEDS: Vitamin E (Dl,Tocopheryl Acet) 180 MG (400 UNIT) CAPSULE PO (09:30)
[2020-02-11] MEDS: Tamsulosin HCL 0.4 MG CAPSULE PO (09:30)
[2020-02-11] MEDS: Nicotine 21 MG PATCH.TD24 TRANSDERMA (09:30)
[2020-02-11] MEDS: Lithium Carbonate ER 300 MG TABLET.ER 600 MG PO ×2 (09:30→20:42)
[2020-02-11] MEDS: Docusate Sodium 100 MG CAPSULE PO ×2 (09:30→20:43)
[2020-02-11] MEDS: Famotidine 20 MG TABLET PO ×2 (09:31→20:42)
[2020-02-11] MEDS: Perphenazine 8 MG TABLET 16 MG PO ×3 (09:31→20:43)
[2020-02-11] MEDS: Benztropine Mesylate 1 MG TABLET PO ×2 (09:31→20:43)
[2020-02-11] MEDS: Pravastatin Sodium 40 MG TABLET PO (09:31)
--- NOTE | 2020-02-11 11:34 | HO.PSYCHPN ---
Subjective Subjective Date of Service: 02/11/20 Reason For Visit: bipolar Subjective Notes: Conditional Voluntary Interim History: Pt complaining of bilateral edema in his ankles lower legs started back on clozapine 50mg last pm just noticed edema in shower today Medication Compliance: Yes Side effects from medications: Yes (? bilateral +1 edema) Attending Groups: Intermittent Review of Systems Acute medical concerns: Yes bilateral edema Medical Review of Systems: changed Review of Systems: see above, also pt reports he stopped breathing last night-denies hx of sleep apnea Mental Status Exam Mental Status Exam Patient Appearance: Well Grooomed Patient Orientation: Person, Place and Situation Level of Consciousness: Awake Patient Behavior: Guarded, Posturing and Cooperative Mood Description: Calm Affect Description: Blunted Patient Cognition Impaired: No Ability to Follow Directions: Fair Speech Pattern: Clear and Impoverished Delusions: Paranoid Ideation ( fly me to [place] ) Thought Process: Illogical Thought Content: positive for Slowed Thinking Abnormal Motor Activity Signs and Symptoms: Psychomotor Retardation and Muscle Rigidity Judgement: Fair Diagnostics Vital Signs (24Hr): Vital Signs - 24 hr 02/10/20 16:38 02/11/20 06:00 Temperature 97.8 F 97.6 F Pulse Rate 101 H 55 Blood Pressure 147/78 H 97/54 L Pulse Oximetry 96 Body Mass Index 25.3 Labs Results: 02/06/20 16:22 02/06/20 16:22 Medications Medications Current Medications Generic Name Dose Route Start Last Admin Trade Name Freq PRN Reason Stop Dose Admin Acetaminophen 650 mg 02/07/20 16:35 Acetaminophen 325 Mg Tablet PO Q6H PRN Headache/Pain Mild Scale (1-3) Al Hydroxide/Mg Hydroxide 30 ml 02/07/20 16:35 Magnesium Hydrox/Alum Hydrox 30 Ml Oral.Susp PO Q6H PRN Heartburn/Nausea Albuterol Sulfate 2 puff 02/08/20 13:43 02/09/20 20:33 Albuterol Sulfate 90 Mcg 8 Gm Inhaler INHALE 2 puff Q4H PRN Administration Shortness of Breath/Wheezing Benztropine Mesylate 1 mg 02/09/20 21:00 02/11/20 09:31 Benztropine Mesylate 1 Mg Tablet PO 1 mg BID DAVY Administration Clozapine 50 mg 02/10/20 21:00 02/10/20 20:40 Clozapine 25 Mg Tablet PO 50 mg BEDTIME DAVY Administration Docusate Sodium 100 mg 02/06/20 21:00 02/11/20 09:30 Docusate Sodium 100 Mg Capsule PO 100 mg BID DAVY Administration Famotidine 20 mg 02/06/20 21:00 02/11/20 09:31 Famotidine 20 Mg Tablet PO 20 mg BID DAVY Administration Fluticasone/Vilanterol 1 puff 02/07/20 08:00 02/11/20 09:28 Fluticasone/Vilanterol 100/25 Blst.W.Dev INHALE 1 puff RDAILY [facility] Administration Hydroxyzine HCl 50 mg 02/06/20 18:39 02/10/20 18:03 Hydroxyzine Hcl 50 Mg Tablet PO 50 mg TID PRN Administration Anxiety [place] Carbonate 600 mg 02/06/20 21:00 02/11/20 09:30 [place] Carbonate Er 300 Mg Tablet.Er PO 600 mg BID DAVY Administration Magnesium Hydroxide 30 ml 02/07/20 16:35 Milk Of Magnesia 30 Ml Oral.Susp PO DAILY PRN Constipation Nicotine 21 mg 02/07/20 16:40 02/11/20 09:30 Nicotine 21 Mg Patch.Td24 TRANSDERMA 21 mg DAILY [facility]Y Administration Perphenazine 16 mg 02/06/20 21:00 02/11/20 09:31 Perphenazine 8 Mg Tablet PO 16 mg TID DAVY Administration Pravastatin Sodium 40 mg 02/07/20 09:00 02/11/20 09:31 Pravastatin Sodium 40 Mg Tablet PO 40 mg DAILY [facility] Administration Tamsulosin HCl 0.4 mg 02/07/20 09:00 02/11/20 09:30 Tamsulosin Hcl 0.4 Mg Capsule PO 0.4 mg DAILY [facility]Y Administration Trazodone HCl 50 mg 02/07/20 16:35 Trazodone Hcl 50 Mg Tablet PO BEDTIME PRN Insomnia Vitamin E 180 mg 02/08/20 09:00 02/11/20 09:30 Vitamin E (Dl,Tocopheryl Acet) 180 Mg (400 Unit) Capsule PO 180 mg DAILY [facility]Y Administration Allergies Allergies Allergy/AdvReac Type Severity Reaction Status Date / Time divalproex sodium Allergy Severe PANCREATITI Verified 01/26/20 14:46 [From DEPAKOTE] S haloperidol [From Haldol] Allergy Intermediate DYSTONIC Verified 01/26/20 14:46 REACTION Assessment & Plan Assessment & Plan (1) Schizoaffective disorder: Status: Acute Code(s): F25.9 - Schizoaffective disorder, unspecified Assessment and Plan: split dosing on clozapine 25mg bid instead of 50mg qhs (2) Edema leg: Status: Acute Code(s): R60.0 - Localized edema Assessment and Plan: will try elevation and kylah stockings may need to see hospitalist if continues Greater than 50% of the session was spent on counseling and/or coordination of care
[2020-02-11 17:31] VITALS: BP 115/65; PULSE 81; TEMP 37.4; O2SAT 100
[2020-02-11 18:08] VITALS: TEMP 36.9
[2020-02-11] MEDS: hydrOXYzine HCL 50 MG TABLET PO (18:16)
[2020-02-11] MEDS: cloZAPine 25 MG TABLET PO (20:43)
[2020-02-11 20:58] VITALS: TEMP 36.9
[2020-02-11 23:36] VITALS: BP 130/77; PULSE 82; TEMP 36.9; O2SAT 99
[2020-02-12 06:20] VITALS: BP 106/59; PULSE 60; RESP 18; TEMP 36.8; O2SAT 97
--- NOTE | 2020-02-12 06:46 | HO.PSYCHPN ---
Subjective Subjective Date of Service: 02/12/20 Reason For Visit: bipolar Interim History: Back on Clozapine. Thought blocking/delayed responses. Odd affect. Monitor Edema feet. TEDS+ and leg elevation. Review of Systems Review of Systems denies eps/or tics Mental Status Exam Mental Status Exam Patient Appearance: Well Grooomed Patient Orientation: Person, Place and Situation Level of Consciousness: Awake Patient Behavior: Guarded, Posturing and Cooperative Mood Description: Calm Affect Description: Blunted Patient Cognition Impaired: No Ability to Follow Directions: Fair Speech Pattern: Clear and Impoverished Memory Description: Intact Diagnostics Vital Signs (24Hr): Vital Signs - 24 hr 02/11/20 17:31 02/11/20 18:08 02/11/20 20:58 Temperature 99.4 F 98.5 F 98.4 F Pulse Rate 81 Blood Pressure 115/65 Pulse Oximetry 100 02/11/20 23:36 Temperature 98.5 F Pulse Rate 82 Blood Pressure 130/77 Pulse Oximetry 99 Body Mass Index 25.3 Labs Results: 02/06/20 16:22 02/06/20 16:22 Medications Medications Current Medications Generic Name Dose Route Start Last Admin Trade Name Freq PRN Reason Stop Dose Admin Acetaminophen 650 mg 02/07/20 16:35 Acetaminophen 325 Mg Tablet PO Q6H PRN Headache/Pain Mild Scale (1-3) Al Hydroxide/Mg Hydroxide 30 ml 02/07/20 16:35 Magnesium Hydrox/Alum Hydrox 30 Ml Oral.Susp PO Q6H PRN Heartburn/Nausea Albuterol Sulfate 2 puff 02/08/20 13:43 02/09/20 20:33 Albuterol Sulfate 90 Mcg 8 Gm Inhaler INHALE 2 puff Q4H PRN Administration Shortness of Breath/Wheezing Benztropine Mesylate 1 mg 02/09/20 21:00 02/11/20 20:43 Benztropine Mesylate 1 Mg Tablet PO 1 mg BID DAVY Administration Clozapine 25 mg 02/11/20 21:00 02/11/20 20:43 Clozapine 25 Mg Tablet PO 25 mg BID DAVY Administration Docusate Sodium 100 mg 02/06/20 21:00 02/11/20 20:43 Docusate Sodium 100 Mg Capsule PO 100 mg BID DAVY Administration Famotidine 20 mg 02/06/20 21:00 02/11/20 20:42 Famotidine 20 Mg Tablet PO 20 mg BID DAVY Administration Fluticasone/Vilanterol 1 puff 02/07/20 08:00 02/11/20 09:28 Fluticasone/Vilanterol 100/25 Blst.W.Dev INHALE 1 puff RDAILY DAVY Administration Hydroxyzine HCl 50 mg 02/06/20 18:39 02/11/20 18:16 Hydroxyzine Hcl 50 Mg Tablet PO 50 mg TID PRN Administration Anxiety [place] Carbonate 600 mg 02/06/20 21:00 02/11/20 20:42 [place] Carbonate Er 300 Mg Tablet.Er PO 600 mg BID DAVY Administration Magnesium Hydroxide 30 ml 02/07/20 16:35 Milk Of Magnesia 30 Ml Oral.Susp PO DAILY PRN Constipation Nicotine 21 mg 02/07/20 16:40 02/11/20 09:30 Nicotine 21 Mg Patch.Td24 TRANSDERMA 21 mg DAILY DAVY Administration Perphenazine 16 mg 02/06/20 21:00 02/11/20 20:43 Perphenazine 8 Mg Tablet PO 16 mg TID DAVY Administration Pravastatin Sodium 40 mg 02/07/20 09:00 02/11/20 09:31 Pravastatin Sodium 40 Mg Tablet PO 40 mg DAILY DAVY Administration Tamsulosin HCl 0.4 mg 02/07/20 09:00 02/11/20 09:30 Tamsulosin Hcl 0.4 Mg Capsule PO 0.4 mg DAILY DAVY Administration Trazodone HCl 50 mg 02/07/20 16:35 Trazodone Hcl 50 Mg Tablet PO BEDTIME PRN Insomnia Vitamin E 180 mg 02/08/20 09:00 02/11/20 09:30 Vitamin E (Dl,Tocopheryl Acet) 180 Mg (400 Unit) Capsule PO 180 mg DAILY DAVY Administration Allergies Allergies Allergy/AdvReac Type Severity Reaction Status Date / Time divalproex sodium Allergy Severe PANCREATITI Verified 01/26/20 14:46 [From DEPAKOTE] S haloperidol [From Haldol] Allergy Intermediate DYSTONIC Verified 01/26/20 14:46 REACTION Assessment & Plan Assessment & Plan (1) Schizoaffective disorder: Status: Acute Code(s): F25.9 - Schizoaffective disorder, unspecified Assessment and Plan: Increase clozapine (2) Edema leg: Status: Acute Code(s): R60.0 - Localized edema Assessment and Plan: will try elevation and kylah stockings may need to see hospitalist if continues Ct Clozapine Greater than 50% of the session was spent on counseling and/or coordination of care
[2020-02-12] MEDS: Lithium Carbonate ER 300 MG TABLET.ER 600 MG PO ×2 (09:14→20:05)
[2020-02-12] MEDS: Tamsulosin HCL 0.4 MG CAPSULE PO (09:14)
[2020-02-12] MEDS: Docusate Sodium 100 MG CAPSULE PO ×2 (09:14→20:05)
[2020-02-12] MEDS: Famotidine 20 MG TABLET PO ×2 (09:14→20:05)
[2020-02-12] MEDS: cloZAPine 25 MG TABLET PO (09:14)
[2020-02-12] MEDS: Benztropine Mesylate 1 MG TABLET PO ×2 (09:14→20:05)
[2020-02-12] MEDS: Pravastatin Sodium 40 MG TABLET PO (09:14)
[2020-02-12] MEDS: Perphenazine 8 MG TABLET 16 MG PO ×3 (09:14→20:05)
[2020-02-12] MEDS: Vitamin E (Dl,Tocopheryl Acet) 180 MG (400 UNIT) CAPSULE PO (09:15)
[2020-02-12] MEDS: Fluticasone/Vilanterol 100/25 BLST.W.DEV 1 PUFF INHALE (09:15)
[2020-02-12 15:36] LABS: MANUAL DIFF FLAG NO
[2020-02-12 15:37] LABS: Basophils Absolute Auto 0.1 X10*3/uL (0.0-0.2); Basophils Percent Auto 0.4 % (0-2); Eosinophils Absolute Auto 0.1 X10*3/uL (0.0-0.4); Eosinophils Percent Auto 0.7 % (0-4); Hemoglobin 11.9 g/dl (14.0-18.0); Imm Gran Abs Auto 0.09 X10*3/uL (0.00-0.03); Imm Gran Pct Auto 0.6 % (0.0-0.4); Mean Corpuscular HGB Conc 32.2 g/dl (31.0-36.0); Mean Corpuscular Hemoglobin 32.6 pg (27.0-33.0); Mean Corpuscular Volume 101.4 fL (80-98); Mean Platelet Volume 10.6 fL (9.4-12.4); Monocytes Absolute Auto 1.1 X10*3/uL (0.1-1.2); Monocytes Percent Auto 7.2 % (2-11); Neutrophils Absolute Auto 11.8 X10*3/uL (2.0-8.3); Neutrophils Percent Auto 78.1 % (45-73); Platelet Count 165 X10*3/uL (160-400); Red Blood Count 3.65 X10*6/uL (4.60-5.80); Red Cell Distribution Width 12.6 % (11.0-16.0); White Blood Count 15.1 X10*3/uL (4.8-10.8)
[2020-02-12 17:35] VITALS: BP 106/59; PULSE 64; TEMP 36.6
[2020-02-12] MEDS: cloZAPine 100 MG TABLET PO (20:05)
[2020-02-12] MEDS: Albuterol Sulfate 90 MCG 8 GM INHALER 2 PUFF INHALE (20:07)
[2020-02-12] MEDS: hydrOXYzine HCL 50 MG TABLET PO (20:09)
[2020-02-13 06:05] VITALS: BP 114/64; PULSE 56; RESP 18; TEMP 36.4; O2SAT 97
[2020-02-13] MEDS: Perphenazine 8 MG TABLET 16 MG PO ×3 (08:17→20:05)
[2020-02-13] MEDS: Docusate Sodium 100 MG CAPSULE PO ×2 (08:17→20:06)
[2020-02-13] MEDS: Pravastatin Sodium 40 MG TABLET PO (08:17)
[2020-02-13] MEDS: Tamsulosin HCL 0.4 MG CAPSULE PO (08:17)
[2020-02-13] MEDS: Lithium Carbonate ER 300 MG TABLET.ER 600 MG PO ×2 (08:17→20:07)
[2020-02-13] MEDS: Famotidine 20 MG TABLET PO ×2 (08:17→20:08)
[2020-02-13] MEDS: Benztropine Mesylate 1 MG TABLET PO ×2 (08:17→20:08)
[2020-02-13] MEDS: Vitamin E (Dl,Tocopheryl Acet) 180 MG (400 UNIT) CAPSULE PO (08:17)
[2020-02-13] MEDS: Fluticasone/Vilanterol 100/25 BLST.W.DEV 1 PUFF INHALE (08:18)
[2020-02-13 10:28] LABS: Clozapine (Clozaril) 51 mcg/L; Norclozapine 98 mcg/L (25-400)
--- NOTE | 2020-02-13 10:57 | P.PNPSI_ITS ---
Subjective Subjective Date of Service: 02/13/20 Reason For Visit: bipolar Interim History: Remains fixated on Clozaril causing respiratory arrest. Bizarre content. Psychoeducation re Clozapine.Increase dose as tolerated Medication Compliance: Yes Side effects from medications: No Attending Groups: Yes Review of Systems Review of Systems Noted for tics Mental Status Exam Mental Status Exam Patient Appearance: Well Grooomed Patient Orientation: Person, Place and Situation Level of Consciousness: Awake Patient Behavior: Guarded, Posturing and Cooperative Mood Description: Calm Affect Description: Blunted Patient Cognition Impaired: No Ability to Follow Directions: Fair Speech Pattern: Clear and Impoverished Memory Description: Intact Diagnostics Vital Signs (24Hr): Vital Signs - 24 hr 02/13/20 18:10 02/14/20 06:55 Temperature 97.7 F 97.2 F Pulse Rate 69 54 Respiratory Rate 18 Blood Pressure 133/65 106/58 L Pulse Oximetry 98 Body Mass Index 25.3 Labs Results: 02/12/20 15:27 02/06/20 16:22 Labs: Laboratory Results - last 48 hr 02/08/20 02/12/20 07:58 15:27 WBC 15.1 H RBC 3.65 L Hgb 11.9 L Hct 37.0 L MCV 101.4 H MCH 32.6 MCHC 32.2 RDW 12.6 Plt Count 165 MPV 10.6 Immature Gran % (Auto) 0.6 H Neut % (Auto) 78.1 H Lymph % (Auto) 13.0 L [place] % (Auto) 7.2 Eos % (Auto) 0.7 Baso % (Auto) 0.4 Lymph # (Auto) 2.0 [place] # (Auto) 1.1 Eos # (Auto) 0.1 Baso # (Auto) 0.1 Abs Immat Gran (auto) 0.09 H Absolute Neuts (auto) 11.8 H Absolute Nucleated RBC 0.000 Nucleated RBC % (auto) 0.0 Clozapine 51 Norclozapine 98 Medications Medications Current Medications Generic Name Dose Route Start Last Admin Trade Name Freq PRN Reason Stop Dose Admin Acetaminophen 650 mg 02/07/20 16:35 Acetaminophen 325 Mg Tablet PO Q6H PRN Headache/Pain Mild Scale (1-3) Al Hydroxide/Mg Hydroxide 30 ml 02/07/20 16:35 Magnesium Hydrox/Alum Hydrox 30 Ml Oral.Susp PO Q6H PRN Heartburn/Nausea Albuterol Sulfate 2 puff 02/08/20 13:43 02/12/20 20:07 Albuterol Sulfate 90 Mcg 8 Gm Inhaler INHALE 2 puff Q4H PRN Administration Shortness of Breath/Wheezing Benztropine Mesylate 1 mg 02/09/20 21:00 02/14/20 08:40 Benztropine Mesylate 1 Mg Tablet PO 1 mg BID DAVY Administration Clozapine 200 mg 02/14/20 21:00 Clozapine 100 Mg Tablet PO BEDTIME DAVY Docusate Sodium 100 mg 02/06/20 21:00 02/14/20 08:40 Docusate Sodium 100 Mg Capsule PO 100 mg BID DAVY Administration Famotidine 20 mg 02/06/20 21:00 02/14/20 08:40 Famotidine 20 Mg Tablet PO 20 mg BID DAVY Administration Fluticasone/Vilanterol 1 puff 02/07/20 08:00 02/14/20 08:40 Fluticasone/Vilanterol 100/25 Blst.W.Dev INHALE 1 puff RDAILY [facility] Administration Hydroxyzine HCl 50 mg 02/06/20 18:39 02/13/20 20:08 Hydroxyzine Hcl 50 Mg Tablet PO 50 mg TID PRN Administration Anxiety [place] Carbonate 600 mg 02/06/20 21:00 02/14/20 08:40 [place] Carbonate Er 300 Mg Tablet.Er PO 600 mg BID DAVY Administration Magnesium Hydroxide 30 ml 02/07/20 16:35 Milk Of Magnesia 30 Ml Oral.Susp PO DAILY PRN Constipation Nicotine 21 mg 02/07/20 16:40 02/14/20 08:41 Nicotine 21 Mg Patch.Td24 TRANSDERMA Not Given DAILY [facility] Perphenazine 16 mg 02/06/20 21:00 02/14/20 08:40 Perphenazine 8 Mg Tablet PO 16 mg TID [facility] Administration Pravastatin Sodium 40 mg 02/07/20 09:00 02/14/20 08:40 Pravastatin Sodium 40 Mg Tablet PO 40 mg DAILY DAVY Administration Tamsulosin HCl 0.4 mg 02/07/20 09:00 02/14/20 08:40 Tamsulosin Hcl 0.4 Mg Capsule PO 0.4 mg DAILY DAVY Administration Trazodone HCl 50 mg 02/07/20 16:35 Trazodone Hcl 50 Mg Tablet PO BEDTIME PRN Insomnia Vitamin E 180 mg 02/08/20 09:00 02/14/20 08:40 Vitamin E (Dl,Tocopheryl Acet) 180 Mg (400 Unit) Capsule PO 180 mg DAILY DAVY Administration Allergies Allergies Allergy/AdvReac Type Severity Reaction Status Date / Time divalproex sodium Allergy Severe PANCREATITI Verified 01/26/20 14:46 [From DEPAKOTE] S haloperidol [From Haldol] Allergy Intermediate DYSTONIC Verified 01/26/20 14:46 REACTION Assessment & Plan Assessment & Plan (1) Schizoaffective disorder: Status: Acute Code(s): F25.9 - Schizoaffective disorder, unspecified Assessment and Plan: Increase clozapine . Check CBC (2) Edema leg: Status: Acute Code(s): R60.0 - Localized edema Assessment and Plan: will try elevation and kylah stockings may need to see hospitalist if continues Ct Clozapine Greater than 50% of the session was spent on counseling and/or coordination of care
[2020-02-13 18:10] VITALS: BP 133/65; PULSE 69; TEMP 36.5
[2020-02-13] MEDS: cloZAPine 25 MG TABLET 50 MG PO (20:07)
[2020-02-13] MEDS: hydrOXYzine HCL 50 MG TABLET PO (20:08)
[2020-02-13] MEDS: cloZAPine 100 MG TABLET PO (20:08)
[2020-02-14 06:55] VITALS: BP 106/58; PULSE 54; RESP 18; TEMP 36.2; O2SAT 98
[2020-02-14] MEDS: Tamsulosin HCL 0.4 MG CAPSULE PO (08:40)
[2020-02-14] MEDS: Perphenazine 8 MG TABLET 16 MG PO ×3 (08:40→20:17)
[2020-02-14] MEDS: Benztropine Mesylate 1 MG TABLET PO ×2 (08:40→20:16)
[2020-02-14] MEDS: Pravastatin Sodium 40 MG TABLET PO (08:40)
[2020-02-14] MEDS: Famotidine 20 MG TABLET PO ×2 (08:40→20:16)
[2020-02-14] MEDS: Lithium Carbonate ER 300 MG TABLET.ER 600 MG PO ×2 (08:40→20:17)
[2020-02-14] MEDS: Fluticasone/Vilanterol 100/25 BLST.W.DEV 1 PUFF INHALE (08:40)
[2020-02-14] MEDS: Vitamin E (Dl,Tocopheryl Acet) 180 MG (400 UNIT) CAPSULE PO (08:40)
[2020-02-14] MEDS: Docusate Sodium 100 MG CAPSULE PO ×2 (08:40→20:17)
--- NOTE | 2020-02-14 10:43 | P.PNPSI_ITS ---
Subjective Subjective Date of Service: 02/14/20 Reason For Visit: bipolar Interim History: Remains fixated on Clozaril causing respiratory arrest. No hypersalivation. Appeard delusional. Pt showed me his daily poems (word salad noted). Bizarre content. Psychoeducation re Clozapine.Increase dose as tolerated Review of Systems Review of Systems Noted for tics Mental Status Exam Mental Status Exam Patient Appearance: Well Grooomed Patient Orientation: Person, Place and Situation Level of Consciousness: Awake Patient Behavior: Guarded, Posturing and Cooperative Mood Description: Calm Affect Description: Blunted Patient Cognition Impaired: No Ability to Follow Directions: Fair Speech Pattern: Clear and Impoverished Memory Description: Intact Diagnostics Vital Signs (24Hr): Vital Signs - 24 hr 02/13/20 18:10 02/14/20 06:55 Temperature 97.7 F 97.2 F Pulse Rate 69 54 Respiratory Rate 18 Blood Pressure 133/65 106/58 L Pulse Oximetry 98 Body Mass Index 25.3 Labs Results: 02/12/20 15:27 02/06/20 16:22 Labs: Laboratory Results - last 48 hr 02/08/20 02/12/20 07:58 15:27 WBC 15.1 H RBC 3.65 L Hgb 11.9 L Hct 37.0 L MCV 101.4 H MCH 32.6 MCHC 32.2 RDW 12.6 Plt Count 165 MPV 10.6 Immature Gran % (Auto) 0.6 H Neut % (Auto) 78.1 H Lymph % (Auto) 13.0 L [place] % (Auto) 7.2 Eos % (Auto) 0.7 Baso % (Auto) 0.4 Lymph # (Auto) 2.0 [place] # (Auto) 1.1 Eos # (Auto) 0.1 Baso # (Auto) 0.1 Abs Immat Gran (auto) 0.09 H Absolute Neuts (auto) 11.8 H Absolute Nucleated RBC 0.000 Nucleated RBC % (auto) 0.0 Clozapine 51 Norclozapine 98 Medications Medications Current Medications Generic Name Dose Route Start Last Admin Trade Name Freq PRN Reason Stop Dose Admin Acetaminophen 650 mg 02/07/20 16:35 Acetaminophen 325 Mg Tablet PO Q6H PRN Headache/Pain Mild Scale (1-3) Al Hydroxide/Mg Hydroxide 30 ml 02/07/20 16:35 Magnesium Hydrox/Alum Hydrox 30 Ml Oral.Susp PO Q6H PRN Heartburn/Nausea Albuterol Sulfate 2 puff 02/08/20 13:43 02/12/20 20:07 Albuterol Sulfate 90 Mcg 8 Gm Inhaler INHALE 2 puff Q4H PRN Administration Shortness of Breath/Wheezing Benztropine Mesylate 1 mg 02/09/20 21:00 02/14/20 08:40 Benztropine Mesylate 1 Mg Tablet PO 1 mg BID DAVY Administration Clozapine 50 mg 02/13/20 21:00 02/13/20 20:07 Clozapine 25 Mg Tablet PO 50 mg BEDTIME DAVY Administration Clozapine 100 mg 02/13/20 21:00 02/13/20 20:08 Clozapine 100 Mg Tablet PO 100 mg BEDTIME DAVY Administration Docusate Sodium 100 mg 02/06/20 21:00 02/14/20 08:40 Docusate Sodium 100 Mg Capsule PO 100 mg BID DAVY Administration Famotidine 20 mg 02/06/20 21:00 02/14/20 08:40 Famotidine 20 Mg Tablet PO 20 mg BID DAVY Administration Fluticasone/Vilanterol 1 puff 02/07/20 08:00 02/14/20 08:40 Fluticasone/Vilanterol 100/25 Blst.W.Dev INHALE 1 puff RDAILY DAVY Administration Hydroxyzine HCl 50 mg 02/06/20 18:39 02/13/20 20:08 Hydroxyzine Hcl 50 Mg Tablet PO 50 mg TID PRN Administration Anxiety [place] Carbonate 600 mg 02/06/20 21:00 02/14/20 08:40 [place] Carbonate Er 300 Mg Tablet.Er PO 600 mg BID DAVY Administration Magnesium Hydroxide 30 ml 02/07/20 16:35 Milk Of Magnesia 30 Ml Oral.Susp PO DAILY PRN Constipation Nicotine 21 mg 02/07/20 16:40 02/14/20 08:41 Nicotine 21 Mg Patch.Td24 TRANSDERMA Not Given DAILY DAVY Perphenazine 16 mg 02/06/20 21:00 02/14/20 08:40 Perphenazine 8 Mg Tablet PO 16 mg TID DAVY Administration Pravastatin Sodium 40 mg 02/07/20 09:00 02/14/20 08:40 Pravastatin Sodium 40 Mg Tablet PO 40 mg DAILY DAVY Administration Tamsulosin HCl 0.4 mg 02/07/20 09:00 02/14/20 08:40 Tamsulosin Hcl 0.4 Mg Capsule PO 0.4 mg DAILY DAVY Administration Trazodone HCl 50 mg 02/07/20 16:35 Trazodone Hcl 50 Mg Tablet PO BEDTIME PRN Insomnia Vitamin E 180 mg 02/08/20 09:00 02/14/20 08:40 Vitamin E (Dl,Tocopheryl Acet) 180 Mg (400 Unit) Capsule PO 180 mg DAILY DAVY Administration Allergies Allergies Allergy/AdvReac Type Severity Reaction Status Date / Time divalproex sodium Allergy Severe PANCREATITI Verified 01/26/20 14:46 [From DEPAKOTE] S haloperidol [From Haldol] Allergy Intermediate DYSTONIC Verified 01/26/20 14:46 REACTION Assessment & Plan Assessment & Plan (1) Schizoaffective disorder: Status: Acute Code(s): F25.9 - Schizoaffective disorder, unspecified Assessment and Plan: Increase clozapine . Check CBC (2) Edema leg: Status: Acute Code(s): R60.0 - Localized edema Assessment and Plan: will try elevation and kylah stockings may need to see hospitalist if continues Ct Clozapine Greater than 50% of the session was spent on counseling and/or coordination of care
--- NOTE | 2020-02-14 10:57 | HO.PSYCHPN ---
Subjective Subjective Date of Service: 02/14/20 Reason For Visit: bipolar Subjective Notes: Conditional Voluntary Interim History: Remains fixated on Clozaril causing respiratory arrest. No hypersalivation. Appeard delusional. Pt showed me his daily poems (word salad noted). Bizarre content. Psychoeducation re Clozapine.Increase dose as tolerated Medication Compliance: Yes Attending Groups: No Review of Systems Review of Systems Noted for tics Mental Status Exam Mental Status Exam Patient Appearance: Well Grooomed Patient Orientation: Person, Place and Situation Level of Consciousness: Awake Patient Behavior: Guarded, Posturing and Cooperative Mood Description: Calm Affect Description: Blunted Patient Cognition Impaired: No Ability to Follow Directions: Fair Speech Pattern: Clear and Impoverished Memory Description: Intact Diagnostics Vital Signs (24Hr): Vital Signs - 24 hr 02/13/20 18:10 02/14/20 06:55 Temperature 97.7 F 97.2 F Pulse Rate 69 54 Respiratory Rate 18 Blood Pressure 133/65 106/58 L Pulse Oximetry 98 Body Mass Index 25.3 Labs Results: 02/12/20 15:27 02/06/20 16:22 Labs: Laboratory Results - last 48 hr 02/08/20 02/12/20 07:58 15:27 WBC 15.1 H RBC 3.65 L Hgb 11.9 L Hct 37.0 L MCV 101.4 H MCH 32.6 MCHC 32.2 RDW 12.6 Plt Count 165 MPV 10.6 Immature Gran % (Auto) 0.6 H Neut % (Auto) 78.1 H Lymph % (Auto) 13.0 L [place] % (Auto) 7.2 Eos % (Auto) 0.7 Baso % (Auto) 0.4 Lymph # (Auto) 2.0 [place] # (Auto) 1.1 Eos # (Auto) 0.1 Baso # (Auto) 0.1 Abs Immat Gran (auto) 0.09 H Absolute Neuts (auto) 11.8 H Absolute Nucleated RBC 0.000 Nucleated RBC % (auto) 0.0 Clozapine 51 Norclozapine 98 Medications Medications Current Medications Generic Name Dose Route Start Last Admin Trade Name Freq PRN Reason Stop Dose Admin Acetaminophen 650 mg 02/07/20 16:35 Acetaminophen 325 Mg Tablet PO Q6H PRN Headache/Pain Mild Scale (1-3) Al Hydroxide/Mg Hydroxide 30 ml 02/07/20 16:35 Magnesium Hydrox/Alum Hydrox 30 Ml Oral.Susp PO Q6H PRN Heartburn/Nausea Albuterol Sulfate 2 puff 02/08/20 13:43 02/12/20 20:07 Albuterol Sulfate 90 Mcg 8 Gm Inhaler INHALE 2 puff Q4H PRN Administration Shortness of Breath/Wheezing Benztropine Mesylate 1 mg 02/09/20 21:00 02/14/20 08:40 Benztropine Mesylate 1 Mg Tablet PO 1 mg BID DAVY Administration Clozapine 200 mg 02/14/20 21:00 Clozapine 100 Mg Tablet PO BEDTIME DAVY Docusate Sodium 100 mg 02/06/20 21:00 02/14/20 08:40 Docusate Sodium 100 Mg Capsule PO 100 mg BID DAVY Administration Famotidine 20 mg 02/06/20 21:00 02/14/20 08:40 Famotidine 20 Mg Tablet PO 20 mg BID DAVY Administration Fluticasone/Vilanterol 1 puff 02/07/20 08:00 02/14/20 08:40 Fluticasone/Vilanterol 100/25 Blst.W.Dev INHALE 1 puff RDAILY DAVY Administration Hydroxyzine HCl 50 mg 02/06/20 18:39 02/13/20 20:08 Hydroxyzine Hcl 50 Mg Tablet PO 50 mg TID PRN Administration Anxiety [place] Carbonate 600 mg 02/06/20 21:00 02/14/20 08:40 [place] Carbonate Er 300 Mg Tablet.Er PO 600 mg BID DAVY Administration Magnesium Hydroxide 30 ml 02/07/20 16:35 Milk Of Magnesia 30 Ml Oral.Susp PO DAILY PRN Constipation Nicotine 21 mg 02/07/20 16:40 02/14/20 08:41 Nicotine 21 Mg Patch.Td24 TRANSDERMA Not Given DAILY DAVY Perphenazine 16 mg 02/06/20 21:00 02/14/20 08:40 Perphenazine 8 Mg Tablet PO 16 mg TID DAVY Administration Pravastatin Sodium 40 mg 02/07/20 09:00 02/14/20 08:40 Pravastatin Sodium 40 Mg Tablet PO 40 mg DAILY DAVY Administration Tamsulosin HCl 0.4 mg 02/07/20 09:00 02/14/20 08:40 Tamsulosin Hcl 0.4 Mg Capsule PO 0.4 mg DAILY DAVY Administration Trazodone HCl 50 mg 02/07/20 16:35 Trazodone Hcl 50 Mg Tablet PO BEDTIME PRN Insomnia Vitamin E 180 mg 02/08/20 09:00 02/14/20 08:40 Vitamin E (Dl,Tocopheryl Acet) 180 Mg (400 Unit) Capsule PO 180 mg DAILY DAVY Administration Allergies Allergies Allergy/AdvReac Type Severity Reaction Status Date / Time divalproex sodium Allergy Severe PANCREATITI Verified 01/26/20 14:46 [From DEPAKOTE] S haloperidol [From Haldol] Allergy Intermediate DYSTONIC Verified 01/26/20 14:46 REACTION Assessment & Plan Assessment & Plan (1) Schizoaffective disorder: Status: Acute Code(s): F25.9 - Schizoaffective disorder, unspecified Assessment and Plan: Increase clozapine . Check CBC (2) Edema leg: Status: Acute Code(s): R60.0 - Localized edema Assessment and Plan: will try elevation and kylah stockings may need to see hospitalist if continues Ct Clozapine Greater than 50% of the session was spent on counseling and/or coordination of care
[2020-02-14] MEDS: hydrOXYzine HCL 50 MG TABLET PO (16:16)
[2020-02-14 18:00] VITALS: BP 129/86; PULSE 86; TEMP 35.9
[2020-02-14] MEDS: cloZAPine 100 MG TABLET 200 MG PO (20:17)
[2020-02-15 06:00] VITALS: BP 111/63; PULSE 74; RESP 16; TEMP 36.4; O2SAT 98
[2020-02-15 07:00] VITALS: BMI 26.1
--- NOTE | 2020-02-15 07:44 | HO.PSYCHPN ---
Subjective Subjective Date of Service: 02/15/20 Reason For Visit: bipolar Interim History: Remains fixated on Clozaril causing respiratory arrest. Bizarre content. Psychoeducationre Clozapine. However is not refusing Clozaril. Low levels noted Review of Systems Review of Systems Noted for tics Mental Status Exam Mental Status Exam Patient Appearance: Well Grooomed Patient Orientation: Person, Place and Situation Level of Consciousness: Awake Patient Behavior: Guarded, Posturing and Cooperative Mood Description: Calm Affect Description: Blunted Patient Cognition Impaired: No Ability to Follow Directions: Fair Speech Pattern: Clear and Impoverished Memory Description: Intact Diagnostics Vital Signs (24Hr): Vital Signs - 24 hr 02/14/20 18:00 Temperature 96.7 F L Pulse Rate 86 Blood Pressure 129/86 Body Mass Index 25.3 Labs Results: 02/12/20 15:27 02/06/20 16:22 Labs: Laboratory Results - last 48 hr 02/08/20 07:58 Clozapine 51 Norclozapine 98 Medications Medications Current Medications Generic Name Dose Route Start Last Admin Trade Name Freq PRN Reason Stop Dose Admin Acetaminophen 650 mg 02/07/20 16:35 Acetaminophen 325 Mg Tablet PO Q6H PRN Headache/Pain Mild Scale (1-3) Al Hydroxide/Mg Hydroxide 30 ml 02/07/20 16:35 Magnesium Hydrox/Alum Hydrox 30 Ml Oral.Susp PO Q6H PRN Heartburn/Nausea Albuterol Sulfate 2 puff 02/08/20 13:43 02/12/20 20:07 Albuterol Sulfate 90 Mcg 8 Gm Inhaler INHALE 2 puff Q4H PRN Administration Shortness of Breath/Wheezing Benztropine Mesylate 1 mg 02/09/20 21:00 02/14/20 20:16 Benztropine Mesylate 1 Mg Tablet PO 1 mg BID DAVY Administration Clozapine 200 mg 02/14/20 21:00 02/14/20 20:17 Clozapine 100 Mg Tablet PO 200 mg BEDTIME DAVY Administration Docusate Sodium 100 mg 02/06/20 21:00 02/14/20 20:17 Docusate Sodium 100 Mg Capsule PO 100 mg BID DAVY Administration Famotidine 20 mg 02/06/20 21:00 02/14/20 20:16 Famotidine 20 Mg Tablet PO 20 mg BID DAVY Administration Fluticasone/Vilanterol 1 puff 02/07/20 08:00 02/14/20 08:40 Fluticasone/Vilanterol 100/25 Blst.W.Dev INHALE 1 puff RDAILY DAVY Administration Hydroxyzine HCl 50 mg 02/06/20 18:39 02/14/20 16:16 Hydroxyzine Hcl 50 Mg Tablet PO 50 mg TID PRN Administration Anxiety [place] Carbonate 600 mg 02/06/20 21:00 02/14/20 20:17 [place] Carbonate Er 300 Mg Tablet.Er PO 600 mg BID DAVY Administration Magnesium Hydroxide 30 ml 02/07/20 16:35 Milk Of Magnesia 30 Ml Oral.Susp PO DAILY PRN Constipation Nicotine 21 mg 02/07/20 16:40 02/14/20 08:41 Nicotine 21 Mg Patch.Td24 TRANSDERMA Not Given DAILY DAVY Perphenazine 16 mg 02/06/20 21:00 02/14/20 20:17 Perphenazine 8 Mg Tablet PO 16 mg TID DAVY Administration Pravastatin Sodium 40 mg 02/07/20 09:00 02/14/20 08:40 Pravastatin Sodium 40 Mg Tablet PO 40 mg DAILY DAVY Administration Tamsulosin HCl 0.4 mg 02/07/20 09:00 02/14/20 08:40 Tamsulosin Hcl 0.4 Mg Capsule PO 0.4 mg DAILY DAVY Administration Trazodone HCl 50 mg 02/07/20 16:35 Trazodone Hcl 50 Mg Tablet PO BEDTIME PRN Insomnia Vitamin E 180 mg 02/08/20 09:00 02/14/20 08:40 Vitamin E (Dl,Tocopheryl Acet) 180 Mg (400 Unit) Capsule PO 180 mg DAILY DAVY Administration Allergies Allergies Allergy/AdvReac Type Severity Reaction Status Date / Time divalproex sodium Allergy Severe PANCREATITI Verified 01/26/20 14:46 [From DEPAKOTE] S haloperidol [From Haldol] Allergy Intermediate DYSTONIC Verified 01/26/20 14:46 REACTION Assessment & Plan Assessment & Plan (1) Schizoaffective disorder: Status: Acute Code(s): F25.9 - Schizoaffective disorder, unspecified Assessment and Plan: Increase clozapine . Check CBC (2) Edema leg: Status: Acute Code(s): R60.0 - Localized edema Assessment and Plan: will try elevation and kylah stockings may need to see hospitalist if continues Ct Clozapine Greater than 50% of the session was spent on counseling and/or coordination of care
[2020-02-15] MEDS: Vitamin E (Dl,Tocopheryl Acet) 180 MG (400 UNIT) CAPSULE PO (09:57)
[2020-02-15] MEDS: Benztropine Mesylate 1 MG TABLET PO ×2 (09:57→20:22)
[2020-02-15] MEDS: Famotidine 20 MG TABLET PO ×2 (09:57→20:23)
[2020-02-15] MEDS: Docusate Sodium 100 MG CAPSULE PO ×2 (09:58→20:22)
[2020-02-15] MEDS: Tamsulosin HCL 0.4 MG CAPSULE PO (09:58)
[2020-02-15] MEDS: Lithium Carbonate ER 300 MG TABLET.ER 600 MG PO ×2 (09:58→20:22)
[2020-02-15] MEDS: Perphenazine 8 MG TABLET 16 MG PO ×3 (09:58→20:22)
[2020-02-15] MEDS: Pravastatin Sodium 40 MG TABLET PO (09:58)
[2020-02-15] MEDS: Fluticasone/Vilanterol 100/25 BLST.W.DEV 1 PUFF INHALE (10:03)
[2020-02-15] MEDS: hydrOXYzine HCL 50 MG TABLET PO (14:23)
[2020-02-15 17:49] VITALS: BP 110/62; PULSE 60; TEMP 37.1
[2020-02-15 18:00] VITALS: BP 110/62; PULSE 60; TEMP 37.1
[2020-02-15] MEDS: cloZAPine 100 MG TABLET 200 MG PO (20:23)
[2020-02-16 06:15] VITALS: BP 91/53; PULSE 52; RESP 18; TEMP 36.4; O2SAT 97
--- NOTE | 2020-02-16 07:47 | HO.PSYCHPN ---
Subjective Subjective Date of Service: 02/16/20 Reason For Visit: bipolar Interim History: Remains fixated on Clozaril causing respiratory arrest. Bizarre content. Psychoeducationre Clozapine. However is not refusing Clozaril. Low levels noted Review of Systems Review of Systems Noted for tics Mental Status Exam Mental Status Exam Patient Appearance: Well Grooomed Patient Orientation: Person, Place and Situation Level of Consciousness: Awake Patient Behavior: Guarded, Posturing and Cooperative Mood Description: Calm Affect Description: Blunted Patient Cognition Impaired: No Ability to Follow Directions: Fair Speech Pattern: Clear and Impoverished Memory Description: Intact Diagnostics Vital Signs (24Hr): Vital Signs - 24 hr 02/15/20 17:49 02/15/20 18:00 02/16/20 06:15 Temperature 98.8 F 98.8 F 97.5 F Pulse Rate 60 60 52 Respiratory Rate 18 Blood Pressure 110/62 110/62 91/53 L Pulse Oximetry 97 Body Mass Index 26.1 Labs Results: 02/16/20 07:57 02/06/20 16:22 Medications Medications Current Medications Generic Name Dose Route Start Last Admin Trade Name Freq PRN Reason Stop Dose Admin Acetaminophen 650 mg 02/07/20 16:35 Acetaminophen 325 Mg Tablet PO Q6H PRN Headache/Pain Mild Scale (1-3) Al Hydroxide/Mg Hydroxide 30 ml 02/07/20 16:35 Magnesium Hydrox/Alum Hydrox 30 Ml Oral.Susp PO Q6H PRN Heartburn/Nausea Albuterol Sulfate 2 puff 02/08/20 13:43 02/12/20 20:07 Albuterol Sulfate 90 Mcg 8 Gm Inhaler INHALE 2 puff Q4H PRN Administration Shortness of Breath/Wheezing Benztropine Mesylate 1 mg 02/09/20 21:00 02/15/20 20:22 Benztropine Mesylate 1 Mg Tablet PO 1 mg BID DAVY Administration Clozapine 200 mg 02/14/20 21:00 02/15/20 20:23 Clozapine 100 Mg Tablet PO 200 mg BEDTIME DAVY Administration Docusate Sodium 100 mg 02/06/20 21:00 02/15/20 20:22 Docusate Sodium 100 Mg Capsule PO 100 mg BID DAVY Administration Famotidine 20 mg 02/06/20 21:00 02/15/20 20:23 Famotidine 20 Mg Tablet PO 20 mg BID DAVY Administration Fluticasone/Vilanterol 1 puff 02/07/20 08:00 02/15/20 10:03 Fluticasone/Vilanterol 100/25 Blst.W.Dev INHALE 1 puff RDAILY DAVY Administration Hydroxyzine HCl 50 mg 02/06/20 18:39 02/15/20 14:23 Hydroxyzine Hcl 50 Mg Tablet PO 50 mg TID PRN Administration Anxiety [place] Carbonate 600 mg 02/06/20 21:00 02/15/20 20:22 [place] Carbonate Er 300 Mg Tablet.Er PO 600 mg BID DAVY Administration Magnesium Hydroxide 30 ml 02/07/20 16:35 Milk Of Magnesia 30 Ml Oral.Susp PO DAILY PRN Constipation Nicotine 21 mg 02/07/20 16:40 02/15/20 09:58 Nicotine 21 Mg Patch.Td24 TRANSDERMA Not Given DAILY [facility] Perphenazine 16 mg 02/06/20 21:00 02/15/20 20:22 Perphenazine 8 Mg Tablet PO 16 mg TID [facility] Administration Pravastatin Sodium 40 mg 02/07/20 09:00 02/15/20 09:58 Pravastatin Sodium 40 Mg Tablet PO 40 mg DAILY [facility] Administration Tamsulosin HCl 0.4 mg 02/07/20 09:00 02/15/20 09:58 Tamsulosin Hcl 0.4 Mg Capsule PO 0.4 mg DAILY DAVY Administration Trazodone HCl 50 mg 02/07/20 16:35 Trazodone Hcl 50 Mg Tablet PO BEDTIME PRN Insomnia Vitamin E 180 mg 02/08/20 09:00 02/15/20 09:57 Vitamin E (Dl,Tocopheryl Acet) 180 Mg (400 Unit) Capsule PO 180 mg DAILY DAVY Administration Allergies Allergies Allergy/AdvReac Type Severity Reaction Status Date / Time divalproex sodium Allergy Severe PANCREATITI Verified 01/26/20 14:46 [From DEPAKOTE] S haloperidol [From Haldol] Allergy Intermediate DYSTONIC Verified 01/26/20 14:46 REACTION Assessment & Plan Assessment & Plan (1) Schizoaffective disorder: Status: Acute Code(s): F25.9 - Schizoaffective disorder, unspecified Assessment and Plan: Increase clozapine . Check CBC (2) Edema leg: Status: Acute Code(s): R60.0 - Localized edema Assessment and Plan: will try elevation and kylah stockings may need to see hospitalist if continues Ct Clozapine Greater than 50% of the session was spent on counseling and/or coordination of care
[2020-02-16 08:13] LABS: MANUAL DIFF FLAG NO
[2020-02-16 08:18] LABS: Basophils Percent Auto 0.4 % (0-2); Eosinophils Absolute Auto 0.1 X10*3/uL (0.0-0.4); Eosinophils Percent Auto 1.4 % (0-4); Hematocrit 39.6 % (42-52); Hemoglobin 12.5 g/dl (14.0-18.0); Imm Gran Abs Auto 0.04 X10*3/uL (0.00-0.03); Imm Gran Pct Auto 0.6 % (0.0-0.4); Lymphocytes Absolute Auto 1.7 X10*3/uL (1.2-4.9); Lymphocytes Percent Auto 24.1 % (20-40); Mean Corpuscular HGB Conc 31.6 g/dl (31.0-36.0); Mean Corpuscular Hemoglobin 31.9 pg (27.0-33.0); Mean Platelet Volume 10.2 fL (9.4-12.4); Monocytes Absolute Auto 0.6 X10*3/uL (0.1-1.2); Neutrophils Absolute Auto 4.5 X10*3/uL (2.0-8.3); Neutrophils Percent Auto 65.5 % (45-73); Platelet Count 217 X10*3/uL (160-400); Red Blood Count 3.92 X10*6/uL (4.60-5.80); Red Cell Distribution Width 12.6 % (11.0-16.0); White Blood Count 6.9 X10*3/uL (4.8-10.8)
[2020-02-16] MEDS: Vitamin E (Dl,Tocopheryl Acet) 180 MG (400 UNIT) CAPSULE PO (08:25)
[2020-02-16] MEDS: Benztropine Mesylate 1 MG TABLET PO ×2 (08:25→20:20)
[2020-02-16] MEDS: Famotidine 20 MG TABLET PO ×2 (08:25→20:20)
[2020-02-16] MEDS: Tamsulosin HCL 0.4 MG CAPSULE PO (08:25)
[2020-02-16] MEDS: Perphenazine 8 MG TABLET 16 MG PO ×3 (08:25→20:20)
[2020-02-16] MEDS: Docusate Sodium 100 MG CAPSULE PO ×2 (08:25→20:19)
[2020-02-16] MEDS: Lithium Carbonate ER 300 MG TABLET.ER 600 MG PO ×2 (08:25→20:20)
[2020-02-16] MEDS: Pravastatin Sodium 40 MG TABLET PO (08:25)
[2020-02-16] MEDS: Fluticasone/Vilanterol 100/25 BLST.W.DEV 1 PUFF INHALE (08:26)
[2020-02-16 18:00] VITALS: BP 113/54; PULSE 57; TEMP 36.6
[2020-02-16] MEDS: hydrOXYzine HCL 50 MG TABLET PO (18:33)
[2020-02-16] MEDS: cloZAPine 100 MG TABLET 200 MG PO (20:21)
[2020-02-17 05:25] VITALS: BP 100/61; PULSE 82; RESP 18; TEMP 36.2; O2SAT 98
--- NOTE | 2020-02-17 07:21 | HO.PSYCHPN ---
Subjective Subjective Date of Service: 02/17/20 Reason For Visit: bipolar Interim History: Remains fixated on Clozaril causing respiratory arrest. Bizarre content. Psychoeducationre Clozapine. However is not refusing Clozaril. Low levels noted. Increase Cloz as tolerated. Persistent c/o apnea. Will get Pulm conult Review of Systems Review of Systems Noted for tics Mental Status Exam Mental Status Exam Patient Appearance: Well Grooomed Patient Orientation: Person, Place and Situation Level of Consciousness: Awake Patient Behavior: Guarded, Posturing and Cooperative Mood Description: Calm Affect Description: Blunted Patient Cognition Impaired: No Ability to Follow Directions: Fair Speech Pattern: Clear and Impoverished Memory Description: Intact Diagnostics Vital Signs (24Hr): Vital Signs - 24 hr 02/16/20 18:00 02/17/20 05:25 Temperature 98 F 97.2 F Pulse Rate 57 82 Respiratory Rate 18 Blood Pressure 113/54 L 100/61 Pulse Oximetry 98 Body Mass Index 26.1 Labs Results: 02/16/20 07:57 02/06/20 16:22 Labs: Laboratory Results - last 48 hr 02/16/20 07:57 WBC 6.9 RBC 3.92 L Hgb 12.5 L Hct 39.6 L MCV 101.0 H MCH 31.9 MCHC 31.6 RDW 12.6 Plt Count 217 D MPV 10.2 Immature Gran % (Auto) 0.6 H Neut % (Auto) 65.5 Lymph % (Auto) 24.1 [place] % (Auto) 8.0 Eos % (Auto) 1.4 Baso % (Auto) 0.4 Lymph # (Auto) 1.7 [place] # (Auto) 0.6 Eos # (Auto) 0.1 Baso # (Auto) 0.0 Abs Immat Gran (auto) 0.04 H Absolute Neuts (auto) 4.5 Absolute Nucleated RBC 0.000 Nucleated RBC % (auto) 0.0 Medications Medications Current Medications Generic Name Dose Route Start Last Admin Trade Name Freq PRN Reason Stop Dose Admin Acetaminophen 650 mg 02/07/20 16:35 Acetaminophen 325 Mg Tablet PO Q6H PRN Headache/Pain Mild Scale (1-3) Al Hydroxide/Mg Hydroxide 30 ml 02/07/20 16:35 Magnesium Hydrox/Alum Hydrox 30 Ml Oral.Susp PO Q6H PRN Heartburn/Nausea Albuterol Sulfate 2 puff 02/08/20 13:43 02/12/20 20:07 Albuterol Sulfate 90 Mcg 8 Gm Inhaler INHALE 2 puff Q4H PRN Administration Shortness of Breath/Wheezing Benztropine Mesylate 1 mg 02/09/20 21:00 02/16/20 20:20 Benztropine Mesylate 1 Mg Tablet PO 1 mg BID DAVY Administration Clozapine 200 mg 02/14/20 21:00 02/16/20 20:21 Clozapine 100 Mg Tablet PO 200 mg BEDTIME DAVY Administration Docusate Sodium 100 mg 02/06/20 21:00 02/16/20 20:19 Docusate Sodium 100 Mg Capsule PO 100 mg BID DAVY Administration Famotidine 20 mg 02/06/20 21:00 02/16/20 20:20 Famotidine 20 Mg Tablet PO 20 mg BID DAVY Administration Fluticasone/Vilanterol 1 puff 02/07/20 08:00 02/16/20 08:26 Fluticasone/Vilanterol 100/25 Blst.W.Dev INHALE 1 puff RDAILY DAVY Administration Hydroxyzine HCl 50 mg 02/06/20 18:39 02/16/20 18:33 Hydroxyzine Hcl 50 Mg Tablet PO 50 mg TID PRN Administration Anxiety [place] Carbonate 600 mg 02/06/20 21:00 02/16/20 20:20 [place] Carbonate Er 300 Mg Tablet.Er PO 600 mg BID DAVY Administration Magnesium Hydroxide 30 ml 02/07/20 16:35 Milk Of Magnesia 30 Ml Oral.Susp PO DAILY PRN Constipation Nicotine 21 mg 02/07/20 16:40 02/16/20 08:26 Nicotine 21 Mg Patch.Td24 TRANSDERMA Not Given DAILY [facility] Perphenazine 16 mg 02/06/20 21:00 02/16/20 20:20 Perphenazine 8 Mg Tablet PO 16 mg TID DAVY Administration Pravastatin Sodium 40 mg 02/07/20 09:00 02/16/20 08:25 Pravastatin Sodium 40 Mg Tablet PO 40 mg DAILY DAVY Administration Tamsulosin HCl 0.4 mg 02/07/20 09:00 02/16/20 08:25 Tamsulosin Hcl 0.4 Mg Capsule PO 0.4 mg DAILY DAVY Administration Trazodone HCl 50 mg 02/07/20 16:35 Trazodone Hcl 50 Mg Tablet PO BEDTIME PRN Insomnia Vitamin E 180 mg 02/08/20 09:00 02/16/20 08:25 Vitamin E (Dl,Tocopheryl Acet) 180 Mg (400 Unit) Capsule PO 180 mg DAILY DAVY Administration Allergies Allergies Allergy/AdvReac Type Severity Reaction Status Date / Time divalproex sodium Allergy Severe PANCREATITI Verified 01/26/20 14:46 [From DEPAKOTE] S haloperidol [From Haldol] Allergy Intermediate DYSTONIC Verified 01/26/20 14:46 REACTION Assessment & Plan Assessment & Plan (1) Schizoaffective disorder: Status: Acute Code(s): F25.9 - Schizoaffective disorder, unspecified Assessment and Plan: Increase clozapine . Check CBC (2) Edema leg: Status: Acute Code(s): R60.0 - Localized edema Assessment and Plan: will try elevation and kylah stockings may need to see hospitalist if continues Ct Clozapine Greater than 50% of the session was spent on counseling and/or coordination of care
[2020-02-17] MEDS: Fluticasone/Vilanterol 100/25 BLST.W.DEV 1 PUFF INHALE (09:29)
[2020-02-17] MEDS: hydrOXYzine HCL 50 MG TABLET PO (09:29)
[2020-02-17] MEDS: Pravastatin Sodium 40 MG TABLET PO (09:29)
[2020-02-17] MEDS: Benztropine Mesylate 1 MG TABLET PO ×2 (09:29→20:24)
[2020-02-17] MEDS: Vitamin E (Dl,Tocopheryl Acet) 180 MG (400 UNIT) CAPSULE PO (09:29)
[2020-02-17] MEDS: Perphenazine 8 MG TABLET 16 MG PO ×3 (09:29→20:25)
[2020-02-17] MEDS: Lithium Carbonate ER 300 MG TABLET.ER 600 MG PO ×2 (09:29→20:24)
[2020-02-17] MEDS: Tamsulosin HCL 0.4 MG CAPSULE PO (09:29)
[2020-02-17] MEDS: Docusate Sodium 100 MG CAPSULE PO ×2 (09:29→20:24)
[2020-02-17] MEDS: Famotidine 20 MG TABLET PO ×2 (09:29→20:24)
[2020-02-17 16:39] VITALS: BP 108/64; PULSE 88; TEMP 36.6
[2020-02-17] MEDS: cloZAPine 25 MG TABLET 250 MG PO (20:24)
[2020-02-17] MEDS: Albuterol Sulfate 90 MCG 8 GM INHALER 2 PUFF INHALE (21:06)
[2020-02-18 06:05] VITALS: BP 108/68; PULSE 64; RESP 18; TEMP 36.3; O2SAT 98
[2020-02-18] MEDS: Famotidine 20 MG TABLET PO ×2 (08:35→20:14)
[2020-02-18] MEDS: Perphenazine 8 MG TABLET 16 MG PO ×3 (08:35→20:14)
[2020-02-18] MEDS: Benztropine Mesylate 1 MG TABLET PO ×2 (08:35→20:14)
[2020-02-18] MEDS: Vitamin E (Dl,Tocopheryl Acet) 180 MG (400 UNIT) CAPSULE PO (08:35)
[2020-02-18] MEDS: Fluticasone/Vilanterol 100/25 BLST.W.DEV 1 PUFF INHALE (08:35)
[2020-02-18] MEDS: Lithium Carbonate ER 300 MG TABLET.ER 600 MG PO ×2 (08:35→20:14)
[2020-02-18] MEDS: Docusate Sodium 100 MG CAPSULE PO ×2 (08:35→20:14)
[2020-02-18] MEDS: Pravastatin Sodium 40 MG TABLET PO (08:35)
[2020-02-18] MEDS: Tamsulosin HCL 0.4 MG CAPSULE PO (08:35)
[2020-02-18] MEDS: hydrOXYzine HCL 50 MG TABLET PO ×2 (08:39→20:29)
--- NOTE | 2020-02-18 08:45 | HO.PSYCHPN ---
Subjective Subjective Date of Service: 02/18/20 Reason For Visit: bipolar Interim History: Increase Cloz as tolerated. Persistent c/o apnea. Will get Pulm conult. Mood more stable. Accepting Cloz. Edema reduced Review of Systems Review of Systems Noted for tics Mental Status Exam Mental Status Exam Patient Appearance: Well Grooomed Patient Orientation: Person, Place and Situation Level of Consciousness: Awake Patient Behavior: Guarded, Posturing and Cooperative Mood Description: Calm Affect Description: Blunted Patient Cognition Impaired: No Ability to Follow Directions: Fair Speech Pattern: Clear and Impoverished Memory Description: Intact Diagnostics Vital Signs (24Hr): Vital Signs - 24 hr 02/17/20 16:39 02/18/20 06:05 Temperature 97.8 F 97.4 F Pulse Rate 88 64 Respiratory Rate 18 Blood Pressure 108/64 108/68 Pulse Oximetry 98 Body Mass Index 26.1 Labs Results: 02/16/20 07:57 02/06/20 16:22 Medications Medications Current Medications Generic Name Dose Route Start Last Admin Trade Name Freq PRN Reason Stop Dose Admin Acetaminophen 650 mg 02/07/20 16:35 Acetaminophen 325 Mg Tablet PO Q6H PRN Headache/Pain Mild Scale (1-3) Al Hydroxide/Mg Hydroxide 30 ml 02/07/20 16:35 Magnesium Hydrox/Alum Hydrox 30 Ml Oral.Susp PO Q6H PRN Heartburn/Nausea Albuterol Sulfate 2 puff 02/08/20 13:43 02/17/20 21:06 Albuterol Sulfate 90 Mcg 8 Gm Inhaler INHALE 2 puff Q4H PRN Administration Shortness of Breath/Wheezing Benztropine Mesylate 1 mg 02/09/20 21:00 02/18/20 08:35 Benztropine Mesylate 1 Mg Tablet PO 1 mg BID DAVY Administration Clozapine 250 mg 02/17/20 21:00 02/17/20 20:24 Clozapine 25 Mg Tablet PO 250 mg BEDTIME DAVY Administration Docusate Sodium 100 mg 02/06/20 21:00 02/18/20 08:35 Docusate Sodium 100 Mg Capsule PO 100 mg BID DAVY Administration Famotidine 20 mg 02/06/20 21:00 02/18/20 08:35 Famotidine 20 Mg Tablet PO 20 mg BID DAVY Administration Fluticasone/Vilanterol 1 puff 02/07/20 08:00 02/18/20 08:35 Fluticasone/Vilanterol 100/25 Blst.W.Dev INHALE 1 puff RDAILY DAVY Administration Hydroxyzine HCl 50 mg 02/06/20 18:39 02/18/20 08:39 Hydroxyzine Hcl 50 Mg Tablet PO 50 mg TID PRN Administration Anxiety [place] Carbonate 600 mg 02/06/20 21:00 02/18/20 08:35 [place] Carbonate Er 300 Mg Tablet.Er PO 600 mg BID DAVY Administration Magnesium Hydroxide 30 ml 02/07/20 16:35 Milk Of Magnesia 30 Ml Oral.Susp PO DAILY PRN Constipation Nicotine 21 mg 02/07/20 16:40 02/18/20 08:37 Nicotine 21 Mg Patch.Td24 TRANSDERMA Not Given DAILY DAVY Perphenazine 16 mg 02/06/20 21:00 02/18/20 08:35 Perphenazine 8 Mg Tablet PO 16 mg TID DAVY Administration Pravastatin Sodium 40 mg 02/07/20 09:00 02/18/20 08:35 Pravastatin Sodium 40 Mg Tablet PO 40 mg DAILY DAVY Administration Tamsulosin HCl 0.4 mg 02/07/20 09:00 02/18/20 08:35 Tamsulosin Hcl 0.4 Mg Capsule PO 0.4 mg DAILY DAVY Administration Trazodone HCl 50 mg 02/07/20 16:35 Trazodone Hcl 50 Mg Tablet PO BEDTIME PRN Insomnia Vitamin E 180 mg 02/08/20 09:00 02/18/20 08:35 Vitamin E (Dl,Tocopheryl Acet) 180 Mg (400 Unit) Capsule PO 180 mg DAILY DAVY Administration Allergies Allergies Allergy/AdvReac Type Severity Reaction Status Date / Time divalproex sodium Allergy Severe PANCREATITI Verified 01/26/20 14:46 [From DEPAKOTE] S haloperidol [From Haldol] Allergy Intermediate DYSTONIC Verified 01/26/20 14:46 REACTION Assessment & Plan Assessment & Plan (1) Schizoaffective disorder: Status: Acute Code(s): F25.9 - Schizoaffective disorder, unspecified Assessment and Plan: Increase clozapine . Check CBC (2) Edema leg: Status: Acute Code(s): R60.0 - Localized edema Assessment and Plan: will try elevation and kylah stockings may need to see hospitalist if continues Ct Clozapine Greater than 50% of the session was spent on counseling and/or coordination of care
[2020-02-18 18:00] VITALS: BP 102/58; PULSE 67; TEMP 36.8
[2020-02-18] MEDS: cloZAPine 25 MG TABLET 250 MG PO (20:14)
[2020-02-18] MEDS: Albuterol Sulfate 90 MCG 8 GM INHALER 2 PUFF INHALE (20:29)
[2020-02-19 05:45] VITALS: BP 110/60; PULSE 67; RESP 18; TEMP 36.3; O2SAT 97
--- NOTE | 2020-02-19 08:33 | P.PNPSI_ITS ---
Subjective Subjective Date of Service: 02/19/20 Reason For Visit: bipolar Interim History: Increase Cloz as tolerated. Persistent c/o apnea. Will get Pulm conult. Mood more stable. Accepting Cloz. Edema reduced. Odd philosophical preoccupations. Now doubts issues related to Trump. Piano fingers noted. Early TD Review of Systems Review of Systems Noted for tics Mental Status Exam Mental Status Exam Patient Appearance: Well Grooomed Patient Orientation: Person, Place and Situation Level of Consciousness: Awake Patient Behavior: Guarded, Posturing and Cooperative Mood Description: Calm Affect Description: Blunted Patient Cognition Impaired: No Ability to Follow Directions: Fair Speech Pattern: Clear and Impoverished Memory Description: Intact Diagnostics Vital Signs (24Hr): Vital Signs - 24 hr 02/18/20 18:00 02/19/20 05:45 Temperature 98.2 F 97.3 F Pulse Rate 67 67 Respiratory Rate 18 Blood Pressure 102/58 L 110/60 Pulse Oximetry 97 Body Mass Index 26.1 Labs Results: 02/16/20 07:57 02/06/20 16:22 Medications Medications Current Medications Generic Name Dose Route Start Last Admin Trade Name Freq PRN Reason Stop Dose Admin Acetaminophen 650 mg 02/07/20 16:35 Acetaminophen 325 Mg Tablet PO Q6H PRN Headache/Pain Mild Scale (1-3) Al Hydroxide/Mg Hydroxide 30 ml 02/07/20 16:35 Magnesium Hydrox/Alum Hydrox 30 Ml Oral.Susp PO Q6H PRN Heartburn/Nausea Albuterol Sulfate 2 puff 02/08/20 13:43 02/18/20 20:29 Albuterol Sulfate 90 Mcg 8 Gm Inhaler INHALE 2 puff Q4H PRN Administration Shortness of Breath/Wheezing Benztropine Mesylate 1 mg 02/09/20 21:00 02/18/20 20:14 Benztropine Mesylate 1 Mg Tablet PO 1 mg BID DAVY Administration Clozapine 250 mg 02/17/20 21:00 02/18/20 20:14 Clozapine 25 Mg Tablet PO 250 mg BEDTIME DAVY Administration Docusate Sodium 100 mg 02/06/20 21:00 02/18/20 20:14 Docusate Sodium 100 Mg Capsule PO 100 mg BID DAVY Administration Famotidine 20 mg 02/06/20 21:00 02/18/20 20:14 Famotidine 20 Mg Tablet PO 20 mg BID DAVY Administration Fluticasone/Vilanterol 1 puff 02/07/20 08:00 02/18/20 08:35 Fluticasone/Vilanterol 100/25 Blst.W.Dev INHALE 1 puff RDAILY DAVY Administration Hydroxyzine HCl 50 mg 02/06/20 18:39 02/18/20 20:29 Hydroxyzine Hcl 50 Mg Tablet PO 50 mg TID PRN Administration Anxiety [place] Carbonate 600 mg 02/06/20 21:00 02/18/20 20:14 [place] Carbonate Er 300 Mg Tablet.Er PO 600 mg BID DAVY Administration Magnesium Hydroxide 30 ml 02/07/20 16:35 Milk Of Magnesia 30 Ml Oral.Susp PO DAILY PRN Constipation Nicotine 21 mg 02/07/20 16:40 02/18/20 08:37 Nicotine 21 Mg Patch.Td24 TRANSDERMA Not Given DAILY [facility] Perphenazine 16 mg 02/06/20 21:00 02/18/20 20:14 Perphenazine 8 Mg Tablet PO 16 mg TID [facility] Administration Pravastatin Sodium 40 mg 02/07/20 09:00 02/18/20 08:35 Pravastatin Sodium 40 Mg Tablet PO 40 mg DAILY DAVY Administration Tamsulosin HCl 0.4 mg 02/07/20 09:00 02/18/20 08:35 Tamsulosin Hcl 0.4 Mg Capsule PO 0.4 mg DAILY DAVY Administration Trazodone HCl 50 mg 02/07/20 16:35 Trazodone Hcl 50 Mg Tablet PO BEDTIME PRN Insomnia Vitamin E 180 mg 02/08/20 09:00 02/18/20 08:35 Vitamin E (Dl,Tocopheryl Acet) 180 Mg (400 Unit) Capsule PO 180 mg DAILY DAVY Administration Allergies Allergies Allergy/AdvReac Type Severity Reaction Status Date / Time divalproex sodium Allergy Severe PANCREATITI Verified 01/26/20 14:46 [From DEPAKOTE] S haloperidol [From Haldol] Allergy Intermediate DYSTONIC Verified 01/26/20 14:46 REACTION Assessment & Plan Assessment & Plan (1) Schizoaffective disorder: Status: Acute Code(s): F25.9 - Schizoaffective disorder, unspecified Assessment and Plan: Increase clozapine . Check CBC (2) Edema leg: Status: Acute Code(s): R60.0 - Localized edema Assessment and Plan: will try elevation and kylah stockings may need to see hospitalist if continues Ct Clozapine Greater than 50% of the session was spent on counseling and/or coordination of care
[2020-02-19] MEDS: Tamsulosin HCL 0.4 MG CAPSULE PO (08:45)
[2020-02-19] MEDS: Vitamin E (Dl,Tocopheryl Acet) 180 MG (400 UNIT) CAPSULE PO (08:45)
[2020-02-19] MEDS: Docusate Sodium 100 MG CAPSULE PO ×2 (08:45→20:49)
[2020-02-19] MEDS: Benztropine Mesylate 1 MG TABLET PO ×2 (08:45→20:50)
[2020-02-19] MEDS: Lithium Carbonate ER 300 MG TABLET.ER 600 MG PO ×2 (08:45→20:50)
[2020-02-19] MEDS: Famotidine 20 MG TABLET PO ×2 (08:45→20:49)
[2020-02-19] MEDS: Pravastatin Sodium 40 MG TABLET PO (08:45)
[2020-02-19] MEDS: Perphenazine 8 MG TABLET 16 MG PO ×3 (08:46→20:48)
[2020-02-19] MEDS: Fluticasone/Vilanterol 100/25 BLST.W.DEV 1 PUFF INHALE (09:17)
[2020-02-19] MEDS: hydrOXYzine HCL 50 MG TABLET PO ×2 (10:59→20:50)
--- NOTE | 2020-02-19 17:45 | PM.CNPUL ---
History of Present Illness History of Present Illness Consult date: 02/19/20 Requesting physician: Chadd Gaytan Reason for consult: other (Sleep apnea) Chief complaint: bipolar Narrative: 50-year-old gentleman, active 30+ pack-year smoker, with underlying history of COPD, bipolar and schizoaffective disorder currently hospitalized on N5 was complaining of episodes of dyspnea at night the as pulmonary consultation was requested. Of note patient has a normal sleep study from November of 2018 showing no apneas or hypopneas or significant desaturations. Patient believes that he has episodes of dyspnea on apnea at night a related to his psychiatric medications. Review of Systems Constitutional: Constitutional: Denies headache(s), Denies malaise and Reports snoring Eyes: Eyes: Denies change in vision and Denies loss of vision ENT: Denies headache(s) Cardiovascular: Cardiovascular: Denies chest pain, Denies dyspnea, Denies dyspnea on exertion and Denies orthopnea Respiratory: Respiratory: Denies cough, Denies dyspnea, Denies dyspnea on exertion, Reports snoring and Denies wheezing Gastrointestinal: Gastrointestinal: Denies constipation and Denies diarrhea Genitourinary: Genitourinary: Denies dysuria and Denies urinary incontinence Musculoskeletal: Musculoskeletal: Denies muscle weakness and Denies numbness Integumentary/Breasts: Skin/Breast: Denies rash Neurologic: Denies headache(s), Denies loss of vision and Denies numbness Endocrine: Endocrine: Denies cold intolerance and Denies heat intolerance Hematologic/Lymphatic: Hematologic/Lymphatic: Denies easy bleeding and Denies easy bruising PMFSH Past Medical History Medical History COPD (chronic obstructive pulmonary disease) Elevated cholesterol GERD (gastroesophageal reflux disease) Schizoaffective disorder Family History Family History Father Diabetes Mother No problems noted. Paternal Grandfather Gastric cancer Surgical History Surgical History History of bilateral cataract extraction History of bunionectomy History of excision of mass Social History Social History Household Members: None Housing: Apartment Do you presently have visiting nurse or other home services: No Alcohol intake: current Alcohol intake frequency: a few times a month Alcohol type: beer Smoking Status: Current every day smoker Tobacco Type: Cigarette Packs Per Day: 1 Cigarettes Per Day: 20.0 Years Smoked: 36 Smoked in Last 30 Days: Yes Patient Interested in Nicotine Replacement: No Patient Given Instructions on How to Stop Smoking: Yes Date Education Initiated: 02/07/20 Second Hand Smoke Exposure: No Use of substances other than those prescribed or required for medical reasons: No Currently Displaying Signs/Symptoms of Drug Intoxication Withdrawal: No Have you been hit, kicked, punched, or otherwise hurt by someone within the past year? If so, by whom?: No Do you feel safe in your current relationship?: No Current Relationship Is there a partner from a previous relationship who is making you feel unsafe now?: No Are you made to feel afraid or neglected: No Advance Directives: No Advance Directives Information Provided: Yes Do you have thoughts of harming others: None Do you have a plan to hurt others: No Plan Recently lost weight without trying: No service: No Sexual orientation: did not discuss Meds Allergies Allergy/AdvReac Type Severity Reaction Status Date / Time divalproex sodium Allergy Severe PANCREATITI Verified 01/26/20 14:46 [From DEPAKOTE] S haloperidol [From Haldol] Allergy Intermediate DYSTONIC Verified 01/26/20 14:46 REACTION Home Medications Medication Instructions Recorded Confirmed Type albuterol sulfate 2 puff INHALATION Q4H 12/29/19 02/06/20 History benztropine 1 tab PO DAILY 12/29/19 02/06/20 History docusate sodium [DOK] 1 cap PO BID 12/29/19 02/06/20 History famotidine 2 tab PO BID 12/29/19 01/26/20 History fluticasone propion-salmeterol 1 puff PO BID 12/29/19 02/06/20 History [Rajeshela Inhub] ibuprofen 1 tab PO Q8H 12/29/19 01/26/20 History lithium carbonate 2 tab PO BID 12/29/19 02/06/20 History perphenazine 1 tab PO TID 12/29/19 02/06/20 History tamsulosin 1 cap PO DAILY 12/29/19 02/06/20 History vitamin E 1 cap PO BID 12/29/19 02/06/20 History clozapine 100 mg tablet 500 mg PO BEDTIME 01/26/20 02/06/20 History hydroxyzine pamoate 1 cap PO TID PRN 02/06/20 02/06/20 History perphenazine 4 mg PO BID@0900,1400 02/06/20 02/07/20 History perphenazine 8 mg PO BEDTIME 02/07/20 02/07/20 History Physical Exam Vital Signs: Vital Signs: Last Vital Signs Temp 97.3 F 02/19/20 05:45 Pulse 67 02/19/20 05:45 Resp 18 02/19/20 05:45 BP 110/60 02/19/20 05:45 Pulse Ox 97 02/19/20 05:45 Body Mass Index 26.1 Const: General: no acute distress, alert and awake Eyes: Sclerae: sclerae normal EOM: EOMs intact bilaterally Neck: Neck: Yes no lymphadenopathy, Yes trachea midline and Yes supple Resp: Effort & Inspection: normal respiratory effort and no respiratory distress Auscultation: clear to auscultation bilaterally Cardio: Rate: regular rate Rhythm: regular rhythm Heart sounds: no gallops, no murmurs and no rubs GI: Palpation (GI): Soft to palpation and Other GI palpation findings present ( Nontender) Auscultation: normal bowel sounds Extrem: General: Yes no pedal edema, No clubbing and No cyanosis Results Laboratory Findings CBC and BMP: 02/16/20 07:57 02/06/20 16:22 Abnormal lab findings: Abnormal Labs 02/06/20 02/06/20 02/12/20 16:22 16:22 15:27 WBC 12.1 H 15.1 H RBC 4.37 L 3.65 L Hgb 11.9 L Hct 37.0 L MCV 99.1 H 101.4 H Immature Gran % (Auto) 0.5 H 0.6 H Neut % (Auto) 78.2 H 78.1 H Lymph % (Auto) 14.4 L 13.0 L Abs Immat Gran (auto) 0.06 H 0.09 H Absolute Neuts (auto) 9.5 H 11.8 H Total Bilirubin 1.4 H 02/16/20 07:57 WBC RBC 3.92 L Hgb 12.5 L Hct 39.6 L MCV 101.0 H Immature Gran % (Auto) 0.6 H Neut % (Auto) Lymph % (Auto) Abs Immat Gran (auto) 0.04 H Absolute Neuts (auto) Total Bilirubin Assessment and Plan (1) Apnea: Status: Acute Impression: Subjective apnea with essentially normal sleep study 14 months prior. Patient believes that his apnea episodes related to his psychiatric medications. Recommendations: Would performed an overnight oximetry study.
[2020-02-19 18:20] VITALS: PULSE 90; TEMP 36.8
[2020-02-19] MEDS: cloZAPine 100 MG TABLET 300 MG PO (20:49)
--- NOTE | 2020-02-20 05:19 | HO.PSYCHPN ---
Subjective Subjective Date of Service: 02/20/20 Reason For Visit: bipolar Interim History: Appreciate Dr Espinoza input. Overnight oximetry pending Odd philosophical preoccupations. Now doubts issues related to Trump. Piano fingers noted. Early TD Review of Systems Review of Systems Noted for tics Constitutional: Denies headache(s) Eyes: Denies loss of vision Denies headache(s) Musculoskeletal: Denies numbness Denies headache(s), Denies loss of vision and Denies numbness Mental Status Exam Mental Status Exam Patient Appearance: Well Grooomed Patient Orientation: Person, Place and Situation Level of Consciousness: Awake Patient Behavior: Guarded, Posturing and Cooperative Mood Description: Calm Affect Description: Blunted Patient Cognition Impaired: No Ability to Follow Directions: Fair Speech Pattern: Clear and Impoverished Memory Description: Intact Diagnostics Vital Signs (24Hr): Vital Signs - 24 hr 02/19/20 05:45 02/19/20 18:20 Temperature 97.3 F 98.2 F Pulse Rate 67 90 Respiratory Rate 18 Blood Pressure 110/60 Pulse Oximetry 97 Body Mass Index 26.1 Labs Results: 02/20/20 08:06 02/06/20 16:22 Medications Medications Current Medications Generic Name Dose Route Start Last Admin Trade Name Freq PRN Reason Stop Dose Admin Acetaminophen 650 mg 02/07/20 16:35 Acetaminophen 325 Mg Tablet PO Q6H PRN Headache/Pain Mild Scale (1-3) Al Hydroxide/Mg Hydroxide 30 ml 02/07/20 16:35 Magnesium Hydrox/Alum Hydrox 30 Ml Oral.Susp PO Q6H PRN Heartburn/Nausea Albuterol Sulfate 2 puff 02/08/20 13:43 02/18/20 20:29 Albuterol Sulfate 90 Mcg 8 Gm Inhaler INHALE 2 puff Q4H PRN Administration Shortness of Breath/Wheezing Benztropine Mesylate 1 mg 02/09/20 21:00 02/19/20 20:50 Benztropine Mesylate 1 Mg Tablet PO 1 mg BID DAVY Administration Clozapine 300 mg 02/19/20 21:00 02/19/20 20:49 Clozapine 100 Mg Tablet PO 300 mg BEDTIME DAVY Administration Docusate Sodium 100 mg 02/06/20 21:00 02/19/20 20:49 Docusate Sodium 100 Mg Capsule PO 100 mg BID DAVY Administration Famotidine 20 mg 02/06/20 21:00 02/19/20 20:49 Famotidine 20 Mg Tablet PO 20 mg BID DAVY Administration Fluticasone/Vilanterol 1 puff 02/07/20 08:00 02/19/20 09:17 Fluticasone/Vilanterol 100/25 Blst.W.Dev INHALE 1 puff RDAILY DAVY Administration Hydroxyzine HCl 50 mg 02/06/20 18:39 02/19/20 20:50 Hydroxyzine Hcl 50 Mg Tablet PO 50 mg TID PRN Administration Anxiety [place] Carbonate 600 mg 02/06/20 21:00 02/19/20 20:50 [place] Carbonate Er 300 Mg Tablet.Er PO 600 mg BID DAVY Administration Magnesium Hydroxide 30 ml 02/07/20 16:35 Milk Of Magnesia 30 Ml Oral.Susp PO DAILY PRN Constipation Nicotine 21 mg 02/07/20 16:40 02/19/20 08:46 Nicotine 21 Mg Patch.Td24 TRANSDERMA Not Given DAILY [facility] Perphenazine 16 mg 02/06/20 21:00 02/19/20 20:48 Perphenazine 8 Mg Tablet PO 16 mg TID DAVY Administration Pravastatin Sodium 40 mg 02/07/20 09:00 02/19/20 08:45 Pravastatin Sodium 40 Mg Tablet PO 40 mg DAILY DAVY Administration Tamsulosin HCl 0.4 mg 02/07/20 09:00 02/19/20 08:45 Tamsulosin Hcl 0.4 Mg Capsule PO 0.4 mg DAILY DAVY Administration Trazodone HCl 50 mg 02/07/20 16:35 Trazodone Hcl 50 Mg Tablet PO BEDTIME PRN Insomnia Vitamin E 180 mg 02/08/20 09:00 02/19/20 08:45 Vitamin E (Dl,Tocopheryl Acet) 180 Mg (400 Unit) Capsule PO 180 mg DAILY DAVY Administration Allergies Allergies Allergy/AdvReac Type Severity Reaction Status Date / Time divalproex sodium Allergy Severe PANCREATITI Verified 01/26/20 14:46 [From DEPAKOTE] S haloperidol [From Haldol] Allergy Intermediate DYSTONIC Verified 01/26/20 14:46 REACTION Assessment & Plan Assessment & Plan (1) Apnea: Status: Acute Code(s): R06.81 - Apnea, not elsewhere classified (2) Schizoaffective disorder: Status: Acute Code(s): F25.9 - Schizoaffective disorder, unspecified (3) Bipolar disorder: Status: Acute Code(s): F31.9 - Bipolar disorder, unspecified Assessment and Plan: Impression: Subjective apnea with essentially normal sleep study 14 months prior. Patient believes that his apnea episodes related to his psychiatric medications. Recommendations: Would performed an overnight oximetry study. Ct Cloz. Check level Greater than 50% of the session was spent on counseling and/or coordination of care
[2020-02-20 06:25] VITALS: BP 101/57; PULSE 60; RESP 18; TEMP 37.1; O2SAT 95
[2020-02-20 08:22] LABS: MANUAL DIFF FLAG NO
[2020-02-20 08:32] LABS: Basophils Percent Auto 0.4 % (0-2); Eosinophils Absolute Auto 0.1 X10*3/uL (0.0-0.4); Eosinophils Percent Auto 1.2 % (0-4); Hematocrit 39.5 % (42-52); Imm Gran Abs Auto 0.06 X10*3/uL (0.00-0.03); Imm Gran Pct Auto 0.8 % (0.0-0.4); Lymphocytes Absolute Auto 1.7 X10*3/uL (1.2-4.9); Mean Corpuscular HGB Conc 32.9 g/dl (31.0-36.0); Mean Corpuscular Hemoglobin 32.6 pg (27.0-33.0); Mean Platelet Volume 10.2 fL (9.4-12.4); Monocytes Absolute Auto 0.7 X10*3/uL (0.1-1.2); Monocytes Percent Auto 8.8 % (2-11); Neutrophils Absolute Auto 4.9 X10*3/uL (2.0-8.3); Neutrophils Percent Auto 65.8 % (45-73); Platelet Count 205 X10*3/uL (160-400); Red Blood Count 3.99 X10*6/uL (4.60-5.80); Red Cell Distribution Width 12.4 % (11.0-16.0); White Blood Count 7.4 X10*3/uL (4.8-10.8)
[2020-02-20] MEDS: Benztropine Mesylate 1 MG TABLET PO ×2 (09:17→20:28)
[2020-02-20] MEDS: Vitamin E (Dl,Tocopheryl Acet) 180 MG (400 UNIT) CAPSULE PO (09:17)
[2020-02-20] MEDS: Tamsulosin HCL 0.4 MG CAPSULE PO (09:17)
[2020-02-20] MEDS: Famotidine 20 MG TABLET PO ×2 (09:17→20:27)
[2020-02-20] MEDS: Perphenazine 8 MG TABLET 16 MG PO ×3 (09:17→20:27)
[2020-02-20] MEDS: Lithium Carbonate ER 300 MG TABLET.ER 600 MG PO ×2 (09:17→20:30)
[2020-02-20] MEDS: Pravastatin Sodium 40 MG TABLET PO (09:18)
[2020-02-20] MEDS: Docusate Sodium 100 MG CAPSULE PO ×2 (09:18→20:26)
[2020-02-20] MEDS: hydrOXYzine HCL 50 MG TABLET PO ×3 (09:19→20:27)
[2020-02-20] MEDS: Fluticasone/Vilanterol 100/25 BLST.W.DEV 1 PUFF INHALE (09:19)
[2020-02-20 18:00] VITALS: BP 121/70; PULSE 64; TEMP 36.7; O2SAT 97
[2020-02-20] MEDS: cloZAPine 100 MG TABLET 300 MG PO (20:27)
[2020-02-20] MEDS: Albuterol Sulfate 90 MCG 8 GM INHALER 2 PUFF INHALE (21:24)
[2020-02-21 05:50] VITALS: BP 110/70; PULSE 81; RESP 18; TEMP 36.4; O2SAT 97
--- NOTE | 2020-02-21 07:57 | HO.PSYCHPN ---
Subjective Subjective Date of Service: 02/21/20 Reason For Visit: bipolar Interim History: Odd philosophical preoccupations. Now doubts issues related to Trump. Piano fingers noted. Early TD. Defer Dc to Fri. Cloz level pending Review of Systems Review of Systems Noted for tics Constitutional: Denies headache(s) Eyes: Denies loss of vision Denies headache(s) Musculoskeletal: Denies numbness Denies headache(s), Denies loss of vision and Denies numbness Mental Status Exam Mental Status Exam Patient Appearance: Well Grooomed Patient Orientation: Person, Place and Situation Level of Consciousness: Awake Patient Behavior: Guarded, Posturing and Cooperative Mood Description: Calm Affect Description: Blunted Patient Cognition Impaired: No Ability to Follow Directions: Fair Speech Pattern: Clear and Impoverished Memory Description: Intact Diagnostics Vital Signs (24Hr): Vital Signs - 24 hr 02/20/20 18:00 02/21/20 05:50 Temperature 98.0 F 97.6 F Pulse Rate 64 81 Respiratory Rate 18 Blood Pressure 121/70 110/70 Pulse Oximetry 97 97 Body Mass Index 26.1 Labs Results: 02/20/20 08:06 02/06/20 16:22 Labs: Laboratory Results - last 48 hr 02/20/20 08:06 WBC 7.4 RBC 3.99 L Hgb 13.0 L Hct 39.5 L MCV 99.0 H MCH 32.6 MCHC 32.9 RDW 12.4 Plt Count 205 MPV 10.2 Immature Gran % (Auto) 0.8 H Neut % (Auto) 65.8 Lymph % (Auto) 23.0 [place] % (Auto) 8.8 Eos % (Auto) 1.2 Baso % (Auto) 0.4 Lymph # (Auto) 1.7 [place] # (Auto) 0.7 Eos # (Auto) 0.1 Baso # (Auto) 0.0 Abs Immat Gran (auto) 0.06 H Absolute Neuts (auto) 4.9 Absolute Nucleated RBC 0.000 Nucleated RBC % (auto) 0.0 Medications Medications Current Medications Generic Name Dose Route Start Last Admin Trade Name Freq PRN Reason Stop Dose Admin Acetaminophen 650 mg 02/07/20 16:35 Acetaminophen 325 Mg Tablet PO Q6H PRN Headache/Pain Mild Scale (1-3) Al Hydroxide/Mg Hydroxide 30 ml 02/07/20 16:35 Magnesium Hydrox/Alum Hydrox 30 Ml Oral.Susp PO Q6H PRN Heartburn/Nausea Albuterol Sulfate 2 puff 02/08/20 13:43 02/20/20 21:24 Albuterol Sulfate 90 Mcg 8 Gm Inhaler INHALE 2 puff Q4H PRN Administration Shortness of Breath/Wheezing Benztropine Mesylate 1 mg 02/09/20 21:00 02/20/20 20:28 Benztropine Mesylate 1 Mg Tablet PO 1 mg BID DAVY Administration Clozapine 300 mg 02/19/20 21:00 02/20/20 20:27 Clozapine 100 Mg Tablet PO 300 mg BEDTIME DAVY Administration Docusate Sodium 100 mg 02/06/20 21:00 02/20/20 20:26 Docusate Sodium 100 Mg Capsule PO 100 mg BID DAVY Administration Famotidine 20 mg 02/06/20 21:00 02/20/20 20:27 Famotidine 20 Mg Tablet PO 20 mg BID DAVY Administration Fluticasone/Vilanterol 1 puff 02/07/20 08:00 02/20/20 09:19 Fluticasone/Vilanterol 100/25 Blst.W.Dev INHALE 1 puff RDAILY DAVY Administration Hydroxyzine HCl 50 mg 02/06/20 18:39 02/20/20 20:27 Hydroxyzine Hcl 50 Mg Tablet PO 50 mg TID PRN Administration Anxiety [place] Carbonate 600 mg 02/06/20 21:00 02/20/20 20:30 [place] Carbonate Er 300 Mg Tablet.Er PO 600 mg BID DAVY Administration Magnesium Hydroxide 30 ml 02/07/20 16:35 Milk Of Magnesia 30 Ml Oral.Susp PO DAILY PRN Constipation Nicotine 21 mg 02/07/20 16:40 02/20/20 09:20 Nicotine 21 Mg Patch.Td24 TRANSDERMA Not Given DAILY DAVY Perphenazine 16 mg 02/06/20 21:00 02/20/20 20:27 Perphenazine 8 Mg Tablet PO 16 mg TID DAVY Administration Pravastatin Sodium 40 mg 02/07/20 09:00 02/20/20 09:18 Pravastatin Sodium 40 Mg Tablet PO 40 mg DAILY DAVY Administration Tamsulosin HCl 0.4 mg 02/07/20 09:00 02/20/20 09:17 Tamsulosin Hcl 0.4 Mg Capsule PO 0.4 mg DAILY DAVY Administration Trazodone HCl 50 mg 02/07/20 16:35 Trazodone Hcl 50 Mg Tablet PO BEDTIME PRN Insomnia Vitamin E 180 mg 02/08/20 09:00 02/20/20 09:17 Vitamin E (Dl,Tocopheryl Acet) 180 Mg (400 Unit) Capsule PO 180 mg DAILY DAVY Administration Allergies Allergies Allergy/AdvReac Type Severity Reaction Status Date / Time divalproex sodium Allergy Severe PANCREATITI Verified 01/26/20 14:46 [From DEPAKOTE] S haloperidol [From Haldol] Allergy Intermediate DYSTONIC Verified 01/26/20 14:46 REACTION Assessment & Plan Assessment & Plan (1) Apnea: Status: Acute Code(s): R06.81 - Apnea, not elsewhere classified (2) Schizoaffective disorder: Status: Acute Code(s): F25.9 - Schizoaffective disorder, unspecified (3) Bipolar disorder: Status: Acute Code(s): F31.9 - Bipolar disorder, unspecified Assessment and Plan: Impression: Subjective apnea with essentially normal sleep study 14 months prior. Patient believes that his apnea episodes related to his psychiatric medications. Recommendations: Would performed an overnight oximetry study. Ct Cloz. Check level Greater than 50% of the session was spent on counseling and/or coordination of care
[2020-02-21] MEDS: Fluticasone/Vilanterol 100/25 BLST.W.DEV 1 PUFF INHALE (08:32)
[2020-02-21] MEDS: Tamsulosin HCL 0.4 MG CAPSULE PO (08:33)
[2020-02-21] MEDS: Lithium Carbonate ER 300 MG TABLET.ER 600 MG PO ×2 (08:33→20:43)
[2020-02-21] MEDS: Pravastatin Sodium 40 MG TABLET PO (08:34)
[2020-02-21] MEDS: Perphenazine 8 MG TABLET 16 MG PO ×3 (08:35→20:43)
[2020-02-21] MEDS: Docusate Sodium 100 MG CAPSULE PO ×2 (10:56→20:43)
[2020-02-21] MEDS: Benztropine Mesylate 1 MG TABLET PO ×2 (10:56→20:44)
[2020-02-21] MEDS: Famotidine 20 MG TABLET PO ×2 (10:56→20:44)
[2020-02-21] MEDS: Vitamin E (Dl,Tocopheryl Acet) 180 MG (400 UNIT) CAPSULE PO (10:57)
[2020-02-21 18:00] VITALS: BP 150/82; PULSE 76; TEMP 36.6
[2020-02-21] MEDS: cloZAPine 100 MG TABLET 300 MG PO (20:44)
[2020-02-21] MEDS: hydrOXYzine HCL 50 MG TABLET PO (20:44)
[2020-02-21] MEDS: Albuterol Sulfate 90 MCG 8 GM INHALER 2 PUFF INHALE (21:09)
[2020-02-22 05:45] VITALS: BP 117/71; PULSE 73; RESP 16; TEMP 36.4; O2SAT 97
[2020-02-22] MEDS: Famotidine 20 MG TABLET PO ×2 (08:53→20:02)
[2020-02-22] MEDS: Docusate Sodium 100 MG CAPSULE PO ×2 (08:53→20:02)
[2020-02-22] MEDS: Tamsulosin HCL 0.4 MG CAPSULE PO (08:53)
[2020-02-22] MEDS: Fluticasone/Vilanterol 100/25 BLST.W.DEV 1 PUFF INHALE (08:53)
[2020-02-22] MEDS: Pravastatin Sodium 40 MG TABLET PO (08:53)
[2020-02-22] MEDS: Lithium Carbonate ER 300 MG TABLET.ER 600 MG PO ×2 (08:53→20:03)
[2020-02-22] MEDS: Perphenazine 8 MG TABLET 16 MG PO ×3 (08:53→20:02)
[2020-02-22] MEDS: Vitamin E (Dl,Tocopheryl Acet) 180 MG (400 UNIT) CAPSULE PO (08:53)
[2020-02-22] MEDS: Benztropine Mesylate 1 MG TABLET PO ×2 (08:53→20:02)
[2020-02-22 11:31] VITALS: BMI 26.5
[2020-02-22] MEDS: hydrOXYzine HCL 50 MG TABLET PO ×2 (12:17→20:44)
--- NOTE | 2020-02-22 14:05 | HO.PSYCHPN ---
Subjective Subjective Date of Service: 02/22/20 Reason For Visit: bipolar Interim History: Improving but residual psychotic preoccupations remain. DC Tomorrow. noted. Early TD. Review of Systems Review of Systems Noted for tics Constitutional: Denies headache(s) Eyes: Denies loss of vision Denies headache(s) Musculoskeletal: Denies numbness Denies headache(s), Denies loss of vision and Denies numbness Mental Status Exam Mental Status Exam Patient Appearance: Well Grooomed Patient Orientation: Person, Place and Situation Level of Consciousness: Awake Patient Behavior: Guarded, Posturing and Cooperative Mood Description: Calm Affect Description: Blunted Patient Cognition Impaired: No Ability to Follow Directions: Fair Speech Pattern: Clear and Impoverished Memory Description: Intact Diagnostics Vital Signs (24Hr): Vital Signs - 24 hr 02/21/20 18:00 02/22/20 05:45 Temperature 97.8 F 97.6 F Pulse Rate 76 73 Respiratory Rate 16 Blood Pressure 150/82 H 117/71 Pulse Oximetry 97 Body Mass Index 26.5 Labs Results: 02/20/20 08:06 02/06/20 16:22 Medications Medications Current Medications Generic Name Dose Route Start Last Admin Trade Name Freq PRN Reason Stop Dose Admin Acetaminophen 650 mg 02/07/20 16:35 Acetaminophen 325 Mg Tablet PO Q6H PRN Headache/Pain Mild Scale (1-3) Al Hydroxide/Mg Hydroxide 30 ml 02/07/20 16:35 Magnesium Hydrox/Alum Hydrox 30 Ml Oral.Susp PO Q6H PRN Heartburn/Nausea Albuterol Sulfate 2 puff 02/08/20 13:43 02/21/20 21:09 Albuterol Sulfate 90 Mcg 8 Gm Inhaler INHALE 2 puff Q4H PRN Administration Shortness of Breath/Wheezing Benztropine Mesylate 1 mg 02/09/20 21:00 02/22/20 08:53 Benztropine Mesylate 1 Mg Tablet PO 1 mg BID DAVY Administration Clozapine 300 mg 02/19/20 21:00 02/21/20 20:44 Clozapine 100 Mg Tablet PO 300 mg BEDTIME DAVY Administration Docusate Sodium 100 mg 02/06/20 21:00 02/22/20 08:53 Docusate Sodium 100 Mg Capsule PO 100 mg BID DAVY Administration Famotidine 20 mg 02/06/20 21:00 02/22/20 08:53 Famotidine 20 Mg Tablet PO 20 mg BID DAVY Administration Fluticasone/Vilanterol 1 puff 02/07/20 08:00 02/22/20 08:53 Fluticasone/Vilanterol 100/25 Blst.W.Dev INHALE 1 puff RDAILY DAVY Administration Hydroxyzine HCl 50 mg 02/06/20 18:39 02/22/20 12:17 Hydroxyzine Hcl 50 Mg Tablet PO 50 mg TID PRN Administration Anxiety [place] Carbonate 600 mg 02/06/20 21:00 02/22/20 08:53 [place] Carbonate Er 300 Mg Tablet.Er PO 600 mg BID DAVY Administration Magnesium Hydroxide 30 ml 02/07/20 16:35 Milk Of Magnesia 30 Ml Oral.Susp PO DAILY PRN Constipation Nicotine 21 mg 02/07/20 16:40 02/22/20 08:56 Nicotine 21 Mg Patch.Td24 TRANSDERMA Not Given DAILY DAVY Perphenazine 16 mg 02/06/20 21:00 02/22/20 08:53 Perphenazine 8 Mg Tablet PO 16 mg TID DAVY Administration Pravastatin Sodium 40 mg 02/07/20 09:00 02/22/20 08:53 Pravastatin Sodium 40 Mg Tablet PO 40 mg DAILY DAVY Administration Tamsulosin HCl 0.4 mg 02/07/20 09:00 02/22/20 08:53 Tamsulosin Hcl 0.4 Mg Capsule PO 0.4 mg DAILY DAVY Administration Trazodone HCl 50 mg 02/07/20 16:35 Trazodone Hcl 50 Mg Tablet PO BEDTIME PRN Insomnia Vitamin E 180 mg 02/08/20 09:00 02/22/20 08:53 Vitamin E (Dl,Tocopheryl Acet) 180 Mg (400 Unit) Capsule PO 180 mg DAILY DAVY Administration Allergies Allergies Allergy/AdvReac Type Severity Reaction Status Date / Time divalproex sodium Allergy Severe PANCREATITI Verified 01/26/20 14:46 [From DEPAKOTE] S haloperidol [From Haldol] Allergy Intermediate DYSTONIC Verified 01/26/20 14:46 REACTION Assessment & Plan Assessment & Plan (1) Apnea: Status: Acute Code(s): R06.81 - Apnea, not elsewhere classified (2) Schizoaffective disorder: Status: Acute Code(s): F25.9 - Schizoaffective disorder, unspecified (3) Bipolar disorder: Status: Acute Code(s): F31.9 - Bipolar disorder, unspecified Assessment and Plan: Impression: Subjective apnea with essentially normal sleep study 14 months prior. Patient believes that his apnea episodes related to his psychiatric medications. Recommendations: Would performed an overnight oximetry study. Ct Cloz. Check level Greater than 50% of the session was spent on counseling and/or coordination of care
[2020-02-22 18:00] VITALS: BP 120/68; PULSE 63; TEMP 36.6
[2020-02-22] MEDS: cloZAPine 100 MG TABLET 300 MG PO (20:02)
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
[2020-02-23 05:55] VITALS: BP 105/63; PULSE 56; RESP 18; TEMP 36.8; O2SAT 97
[2020-02-23] MEDS: Famotidine 20 MG TABLET PO (08:32)
[2020-02-23] MEDS: Docusate Sodium 100 MG CAPSULE PO (08:33)
[2020-02-23] MEDS: Vitamin E (Dl,Tocopheryl Acet) 180 MG (400 UNIT) CAPSULE PO (08:33)
[2020-02-23] MEDS: Pravastatin Sodium 40 MG TABLET PO (08:33)
[2020-02-23] MEDS: Lithium Carbonate ER 300 MG TABLET.ER 600 MG PO (08:33)
[2020-02-23] MEDS: Fluticasone/Vilanterol 100/25 BLST.W.DEV 1 PUFF INHALE (08:33)
[2020-02-23] MEDS: Tamsulosin HCL 0.4 MG CAPSULE PO (08:33)
[2020-02-23] MEDS: Benztropine Mesylate 1 MG TABLET PO (08:33)
[2020-02-23] MEDS: Perphenazine 8 MG TABLET 16 MG PO (09:08)
[2020-02-25 14:07] LABS: Clozapine (Clozaril) 214 mcg/L; Norclozapine 129 mcg/L (25-400)
== END 2020-02-23 13:00 | disposition home or self-care (01) | DRG 885 ==
LOC: HO.ED 21:40 → HO.PM5 02-07 17:36
PROVIDERS: Nurse Practitioner Primary Care; Admitting Provider Psychiatry & Neurology Psychiatry; Emergency Provider Emergency Medicine Emergency Medical Services; PCP Internal Medicine; Visit Provider Psychiatry & Neurology Psychiatry
DX: F25.0 Schizoaffective disorder, bipolar type (principal); K21.9 Gastro-esophageal reflux disease without esophagitis; Z23 Encounter for immunization; R06.81 Apnea, not elsewhere classified; R60.0 Localized edema; Z20.828 Contact with and (suspected) exposure to other viral communicable diseases; F17.210 Nicotine dependence, cigarettes, uncomplicated; Z71.6 Tobacco abuse counseling; Z79.51 Long term (current) use of inhaled steroids; Z79.899 Other long term (current) drug therapy
CPT/HCPCS: 36415; 80053; 80159; 80178; 80307; 80320; 81001; 85025; 87635; 90686; 93005; 99223; 99232; 99239; 99285

== ENCOUNTER 2020-03-16 07:11 | Outpatient (REF) | payer OTHER, SELFPAY ==
[2020-03-16 07:53] LABS: MANUAL DIFF FLAG NO
[2020-03-16 07:54] LABS: Basophils Percent Auto 0.4 % (0-2); Eosinophils Absolute Auto 0.1 X10*3/uL (0.0-0.4); Eosinophils Percent Auto 0.8 % (0-4); Hematocrit 42.8 % (42-52); Hemoglobin 13.8 g/dl (14.0-18.0); Imm Gran Abs Auto 0.04 X10*3/uL (0.00-0.03); Imm Gran Pct Auto 0.4 % (0.0-0.4); Lymphocytes Absolute Auto 1.5 X10*3/uL (1.2-4.9); Lymphocytes Percent Auto 15.4 % (20-40); Mean Corpuscular HGB Conc 32.2 g/dl (31.0-36.0); Mean Corpuscular Hemoglobin 32.2 pg (27.0-33.0); Mean Platelet Volume 10.6 fL (9.4-12.4); Monocytes Absolute Auto 0.8 X10*3/uL (0.1-1.2); Monocytes Percent Auto 7.9 % (2-11); Neut%MD 75.1 %; Neutrophils Absolute Auto 7.5 X10*3/uL (2.0-8.3); Neutrophils Percent Auto 75.1 % (45-73); Platelet Count 207 X10*3/uL (160-400); Red Blood Count 4.28 X10*6/uL (4.60-5.80); Red Cell Distribution Width 12.9 % (11.0-16.0)
== END 2020-03-16 07:12 | disposition home or self-care (01) ==
LOC: HO.LABR 07:11
PROVIDERS: PCP Internal Medicine; Visit Provider Psychiatry & Neurology Psychiatry
DX: Z79.899 Other long term (current) drug therapy (principal)
CPT/HCPCS: 36415; 85025; 85048

== ENCOUNTER 2020-04-13 07:22 | Outpatient (REF) | payer OTHER, SELFPAY ==
[2020-04-13 08:43] LABS: MANUAL DIFF FLAG NO
[2020-04-13 08:49] LABS: Basophils Absolute Auto 0.1 X10*3/uL (0.0-0.2); Basophils Percent Auto 0.5 % (0-2); Eosinophils Absolute Auto 0.1 X10*3/uL (0.0-0.4); Eosinophils Percent Auto 0.7 % (0-4); Hemoglobin 13.7 g/dl (14.0-18.0); Imm Gran Abs Auto 0.05 X10*3/uL (0.00-0.03); Imm Gran Pct Auto 0.4 % (0.0-0.4); Lymphocytes Absolute Auto 1.8 X10*3/uL (1.2-4.9); Lymphocytes Percent Auto 14.7 % (20-40); Mean Corpuscular HGB Conc 31.9 g/dl (31.0-36.0); Mean Corpuscular Hemoglobin 31.4 pg (27.0-33.0); Mean Corpuscular Volume 98.4 fL (80-98); Mean Platelet Volume 10.9 fL (9.4-12.4); Monocytes Absolute Auto 0.9 X10*3/uL (0.1-1.2); Monocytes Percent Auto 7.5 % (2-11); Neut%MD 76.2 %; Neutrophils Absolute Auto 9.5 X10*3/uL (2.0-8.3); Neutrophils Percent Auto 76.2 % (45-73); Platelet Count 240 X10*3/uL (160-400); Red Blood Count 4.37 X10*6/uL (4.60-5.80); Red Cell Distribution Width 12.7 % (11.0-16.0); WBCANC 12.5 X10*3/uL; White Blood Count 12.5 X10*3/uL (4.8-10.8)
== END 2020-04-13 07:23 | disposition home or self-care (01) ==
LOC: HO.LABR 07:22
PROVIDERS: PCP Internal Medicine; Visit Provider Psychiatry & Neurology Psychiatry
DX: Z79.899 Other long term (current) drug therapy (principal)
CPT/HCPCS: 36415; 85025; 85048

== ENCOUNTER 2020-05-11 06:54 | Outpatient (REF) | payer OTHER, SELFPAY ==
[2020-05-11 07:21] LABS: MANUAL DIFF FLAG NO
[2020-05-11 07:29] LABS: Basophils Absolute Auto 0.1 X10*3/uL (0.0-0.2); Basophils Percent Auto 0.6 % (0-2); Eosinophils Absolute Auto 0.1 X10*3/uL (0.0-0.4); Eosinophils Percent Auto 0.8 % (0-4); Hematocrit 43.9 % (42-52); Hemoglobin 14.4 g/dl (14.0-18.0); Imm Gran Abs Auto 0.05 X10*3/uL (0.00-0.03); Imm Gran Pct Auto 0.5 % (0.0-0.4); Lymphocytes Absolute Auto 1.3 X10*3/uL (1.2-4.9); Lymphocytes Percent Auto 13.5 % (20-40); Mean Corpuscular HGB Conc 32.8 g/dl (31.0-36.0); Mean Corpuscular Hemoglobin 31.9 pg (27.0-33.0); Mean Corpuscular Volume 97.3 fL (80-98); Mean Platelet Volume 10.1 fL (9.4-12.4); Monocytes Absolute Auto 0.6 X10*3/uL (0.1-1.2); Monocytes Percent Auto 5.6 % (2-11); Neutrophils Absolute Auto 7.9 X10*3/uL (2.0-8.3); Platelet Count 198 X10*3/uL (160-400); Red Blood Count 4.51 X10*6/uL (4.60-5.80); Red Cell Distribution Width 12.7 % (11.0-16.0); White Blood Count 9.9 X10*3/uL (4.8-10.8)
[2020-05-11 08:10] LABS: Cholesterol 147 mg/dL; HDL Cholesterol 48 mg/dL; LDL Cholesterol Calculated 77 mg/dl; Triglycerides 111 mg/dL
== END 2020-05-11 06:55 | disposition home or self-care (01) ==
LOC: HO.LABR 06:54
PROVIDERS: PCP Internal Medicine; Visit Provider Psychiatry & Neurology Psychiatry
DX: Z79.899 Other long term (current) drug therapy (principal); E11.9 Type 2 diabetes mellitus without complications
CPT/HCPCS: 36415; 80061; 85025

== ENCOUNTER → 2020-05-28 14:03 | Outpatient (BNVA) | payer OTHER, SELFPAY | PROVIDERS: PCP Internal Medicine; Visit Provider Urology | DX: Z13.89 Encounter for screening for other disorder (principal) | CPT/HCPCS: Q3014 ==

== ENCOUNTER 2020-06-08 07:12 | Outpatient (REF) | payer OTHER, SELFPAY ==
[2020-06-08 07:35] LABS: MANUAL DIFF FLAG NO
[2020-06-08 08:05] LABS: Basophils Percent Auto 0.4 % (0-2); Eosinophils Percent Auto 0.4 % (0-4); Hematocrit 44.3 % (42-52); Hemoglobin 14.2 g/dl (14.0-18.0); Imm Gran Abs Auto 0.04 X10*3/uL (0.00-0.03); Imm Gran Pct Auto 0.4 % (0.0-0.4); Lymphocytes Absolute Auto 1.5 X10*3/uL (1.2-4.9); Lymphocytes Percent Auto 15.5 % (20-40); Mean Corpuscular HGB Conc 32.1 g/dl (31.0-36.0); Mean Corpuscular Hemoglobin 31.1 pg (27.0-33.0); Mean Corpuscular Volume 97.1 fL (80-98); Mean Platelet Volume 10.7 fL (9.4-12.4); Monocytes Absolute Auto 0.7 X10*3/uL (0.1-1.2); Monocytes Percent Auto 7.4 % (2-11); Neut%MD 75.9 %; Neutrophils Absolute Auto 7.1 X10*3/uL (2.0-8.3); Neutrophils Percent Auto 75.9 % (45-73); Platelet Count 233 X10*3/uL (160-400); Red Blood Count 4.56 X10*6/uL (4.60-5.80); Red Cell Distribution Width 12.8 % (11.0-16.0); WBCANC 9.4 X10*3/uL; White Blood Count 9.4 X10*3/uL (4.8-10.8)
== END 2020-06-08 07:13 | disposition home or self-care (01) ==
LOC: HO.LABR 07:12
PROVIDERS: PCP Internal Medicine; Visit Provider Psychiatry & Neurology Psychiatry
DX: Z79.899 Other long term (current) drug therapy (principal)
CPT/HCPCS: 36415; 85025; 85048

== ENCOUNTER 2020-06-10 08:24 | Day surgery (SDC) | payer OTHER, SELFPAY ==
--- NOTE | 2020-06-03 12:57 | HO.ANESPROP2 ---
HPI - Anesthesia Eval Consult details Narrative: 50yo M for Laser Ablation Prostate PMFSH Active Problems Active Problems: All Active Problems (Updated 05/31/20 @ 10:47 by Jessica Wall) Dyspnea (Acute) BPH w urinary obs/LUTS (Acute) Urinary retention with incomplete bladder emptying (Acute) Hyperlipidemia (Acute) Past Medical History Medical History Anxiety COPD (chronic obstructive pulmonary disease) Difficulty sleeping Elevated cholesterol GERD (gastroesophageal reflux disease) Hx of pancreatitis Hyperlipidemia Schizoaffective disorder Smoker Family History Family History Father Diabetes Mother No problems noted. Paternal Grandfather Gastric cancer Family history of problems with anesthesia: No Surgical History Surgical History History of bilateral cataract extraction History of bunionectomy History of excision of mass Hx of colonoscopy History of Problems with Anesthesia: No Social History Social History Household Members: None Housing: Apartment Alcohol intake: current Alcohol intake frequency: a few times a week Alcohol type: beer Smoking Status: Current every day smoker Tobacco Type: Cigarette Packs Per Day: 1 Cigarettes Per Day: 20.0 Years Smoked: ~30 Second Hand Smoke Exposure: No service: No Sexual orientation: did not discuss Narrative Narrative: No recent illness. NO CP/SOB with activity/ADLs. Meds Allergies Allergy/AdvReac Type Severity Reaction Status Date / Time divalproex sodium Allergy Severe PANCREATITI Verified 06/10/20 08:46 [From DEPAKOTE] S haloperidol [From Haldol] Allergy Intermediate DYSTONIC Verified 06/10/20 08:46 REACTION Home Medications Medication Instructions Recorded Confirmed Last Taken Type cimetidine 1 tab PO Q12H 05/31/20 05/31/20 Unknown History hydroxyzine pamoate 1 cap PO TID PRN 05/31/20 05/31/20 Unknown History Exam Exam Date and Time: June 03, 2020 1257 Narrative Narrative: EKG 02/2020 Vent. Rate : 062 BPM Atrial Rate : 062 BPM P-R Int : 168 ms QRS Dur : 096 ms QT Int : 424 ms P-R-T Axes : 073 093 077 degrees QTc Int : 430 ms Normal sinus rhythm Possible Left atrial enlargement Rightward axis Septal infarct (cited on or before 04-NOV-2019) Abnormal ECG When compared with ECG of 04-NOV-2019 19:53, Questionable change in initial forces of Septal leads T wave inversion no longer evident in Inferior leads Airway Mallampati Class: I TM Dist: >3cm Neck ROM: Limited ( Stiff neck for a couple days , denies disc issue) Loose/Missing/Broken Teeth: Yes (8&9 missing, molar missing) Heart: RRR Lungs: Coarse bases, clears with cough Faint expiratory wheeze throughtout. Encouraged inhaler use at home. Assessment and Plan Assessment Anesthesia Assessment: Anesthesia Plan Discussed, Smoking Cess. Discussed and PAT Visit
[2020-06-03 13:08] VITALS: BMI 27.0
[2020-06-10] VITALS (10 sets, daily range): BP systolic 103–129; BP diastolic 66–79; PULSE 62–84; RESP 16–18; TEMP 36.1–37.2; O2SAT 97–99
[2020-06-10] MEDS: Lactated Ringers 1,000 ML 100 ML IVCONT (09:11)
[2020-06-10] MEDS: levoFLOXacin 500 MG TABLET PO (09:15)
--- NOTE | 2020-06-10 10:24 | MHC.SHP ---
Pre-Procedural Eval Section A The patient is an INPATIENT: No Changes since office visit: No Cold of Flu in the past 2 weeks, No New Medical Problems, No Changes in Medication and No Patient answered all questions The History & Physical has been completed within 30 days and I have reviewed it.: Yes Section B Chief Complaint: retention of urine Allergies: Allergies Allergy/AdvReac Type Severity Reaction Status Date / Time divalproex sodium Allergy Severe PANCREATITI Verified 06/10/20 08:46 [From DEPAKOTE] S haloperidol [From Haldol] Allergy Intermediate DYSTONIC Verified 06/10/20 08:46 REACTION Plan Diagnosis/Plan: Unchanged ([employer] laser enucleation of the prostate) I have reviewed the history and physical and performed a pertinent physical examination on my patient. No changes have occurred unless specified.
--- NOTE | 2020-06-10 11:08 | W.PM.OPN ---
Operative Note Operative Note Date of Service: 06/10/20 Narrative: PreOperative Diagnosis: Bladder outlet obstruction Post Operative Diagnosis: Bladder outlet obstruction, prostatic calcifications Procedure: GreenLight laser enucleation of the prostate Surgeon: Dr Rufino Alberto Anesthesia: General Indications for procedure: History of bladder outlet obstruction. Treated with alpha-shayne and other medications. Still with symptoms. On cystoscopy in office has tight bladder neck. Recommendation for prostate procedure with laser enucleation of prostate. It has been discussed. Focus was placed on development of retrograde examination which is a normal part of this procedure. Procedure: After informed consent was verified the patient was brought to the operating room and placed in a supine position. Anesthesia was administered per protocol. Patient was placed in modified dorsal lithotomy position and prepped and draped in a sterile fashion. Safety pause time-out was confirmed. Antibiotics have been given. Twenty-four Estonian laser cystoscope was inserted per urethra. No abnormalities found the anterior posterior urethra. The bladder was filled on both ureteric orifices were seen in normal position away from our area of interest. Using a GreenLight laser settings of 80 w incisions were made at the 5 and 7 o'clock position. They were taken down and then laterally on each side. They were brought from the bladder neck down to the level of the veru. These defined the lateral aspects of the median lobe area. The median lobe was ablated and enucleated tissue removed. During this component the procedure there were a large number of small stones noted on the junction with the surgical capsule. These were freed and released. Decision was made not to proceed with ablation of the lateral lobes as the stones in median lobe will likely the cause of much of his frequency and urgency. When this was completed debris and pieces of prostate removed from the bladder. Both ureteric orifices were reviewed again in shown to be patent in away from any areas of energy damage. The apical area was reviewed in any stray ooze was controlled. A 22 Estonian 30 cc balloon Rodríguez catheter was placed over stylet into the bladder. Clear efflux was obtained. 30 cc was placed in the balloon and gentle traction was placed. A snap was used to hold tension once the patient will be moved and transported. Once transportation its finish this novel be removed. A belladonna and opiate suppository was placed for postprocedure pain management. He tolerated procedure well was extubated in the operating and transferred in a stable condition to the recovery area. Pathology: Prostate tissue Drains: Rodríguez catheter
[2020-06-10] MEDS: ondansetron HCL 4 MG/2 ML VIAL IVPUSH (12:05)
[2020-06-10] MEDS: traMADoL HCL 50 MG TABLET PO (12:31)
== END 2020-06-10 13:20 | disposition home or self-care (01) ==
PROVIDERS: PCP Internal Medicine; Visit Provider Urology
PROC: 0V507ZZ Destruction of Prostate, Via Natural or Artificial Opening (ICD-10-PCS; CPT 52648; principal; 2020-06-10 10:20)
DX: N40.1 Benign prostatic hyperplasia with lower urinary tract symptoms (principal); N32.0 Bladder-neck obstruction; R33.8 Other retention of urine; N42.0 Calculus of prostate; J44.9 Chronic obstructive pulmonary disease, unspecified; F17.210 Nicotine dependence, cigarettes, uncomplicated; Z79.899 Other long term (current) drug therapy
CPT/HCPCS: 52648; 88305; J1100; J2405; J2550; J3010

== ENCOUNTER 2020-06-11 03:48 | Emergency (ER) | payer OTHER, SELFPAY ==
[2020-06-11 04:02] VITALS: PULSE 93; RESP 18; TEMP 37.1; O2SAT 98; BMI 24.4
--- NOTE | 2020-06-11 05:20 | ED_ITS ---
HPI - Male Genitourinary General Chief complaint: Urogenital-Male Stated complaint: F/C ISSUE PER PT Time Seen by Provider: 06/11/20 05:20 History of Present Illness HPI Narrative: 50-year-old male has some issues with his Rodríguez catheter. Came in to ensure that his Rodríguez is working. Patient has no specific complaints. No fever no chills. The Rodríguez catheter is draining. Related Data Home Medications Medication Instructions Recorded Confirmed cimetidine 1 tab PO Q12H 05/31/20 05/31/20 hydroxyzine pamoate 1 cap PO TID PRN 05/31/20 05/31/20 Previous Rx's Medication Instructions Recorded albuterol sulfate 2 puff INHALATION Q4H 30 Days #1 g 02/23/20 benztropine 1 mg PO BID 30 Days #60 tab 02/23/20 clozapine 300 mg PO BEDTIME 30 Days #90 tab 02/23/20 docusate sodium 100 mg PO BID 30 Days #60 cap 02/23/20 fluticasone propion-salmeterol 1 puff PO BID 30 Days #1 ea 02/23/20 [Wixela Inhub] lithium carbonate 600 mg PO BID 30 Days #120 tab 02/23/20 perphenazine 16 mg PO TID 30 Days #180 tab 02/23/20 tamsulosin 1 cap PO DAILY 30 Days #30 cap 02/23/20 vitamin E 1 cap PO BID 30 Days #30 cap 02/23/20 lovastatin 40 mg tablet 40 mg PO DAILY 30 Days #30 tab 06/05/20 tramadol 50 mg PO Q6H PRN #14 tab 06/10/20 trimethoprim 100 mg PO Q12H 10 Days #20 tab 06/10/20 Allergies Allergy/AdvReac Type Severity Reaction Status Date / Time divalproex sodium Allergy Severe PANCREATITI Verified 06/10/20 08:46 [From DEPAKOTE] S haloperidol [From Haldol] Allergy Intermediate DYSTONIC Verified 06/10/20 08:46 REACTION Review of Systems Review of Systems: Constitutional: No Weight loss, No Fever, No Chills, No Night Sweats, No Fatigue, No Malaise ENT/Mouth: No Hearing loss, No Ear Pain, No Nasal Congestion, No Sinus Pain, No Hoarseness, No sore throat, No Rhinorrhea, No Swallowing Difficulty Eyes: No Eye Pain, No Swelling, No Redness, No Foreign Body, No Discharge, No Vision Changes Cardiovascular: No Chest Pain, No SOB, No Dyspnea on Exertion, No Orthopnea, No Edema, No Palpitations Respiratory: No Cough, No Sputum, No Wheezing, No Smoke Exposure, No Dyspnea Gastrointestinal: No Nausea, No Vomiting, No Diarrhea, No Constipation, No abdominal Pain, No Hematochezia, No Melena Genitourinary: no irregular bleeding, No Dysuria, No Urinary Frequency, No Hematuria, No Urinary Incontinence, No Urgency, No Flank Pain, No Urinary Flow Changes, No Hesitancy Musculoskeletal: No joint pain, No Myalgias, No Joint Swelling Skin: No Skin Lesions, No rash Neuro: No Weakness, No Numbness, No Paresthesias, No Loss of Consciousness, No Dizziness, No Headache Psych: No Anxiety/Panic, No Depression, No SI/HI/AH/VH, No Social Issues, Heme/Lymph: No Bruising, No Bleeding,No Lymphadenopathy Endocrine: No Polyuria, No Polydipsia, No Temperature Intolerance [facility] Past Medical History Medical History Anxiety COPD (chronic obstructive pulmonary disease) Difficulty sleeping Elevated cholesterol GERD (gastroesophageal reflux disease) Hx of pancreatitis Hyperlipidemia Schizoaffective disorder Smoker Surgical History History of bilateral cataract extraction History of bunionectomy History of excision of mass Hx of colonoscopy Family History Family History Father Diabetes Mother No problems noted. Paternal Grandfather Gastric cancer Social History Social History Household Members: None Housing: Apartment Alcohol intake: current Alcohol intake frequency: a few times a week Alcohol type: beer Smoking Status: Current every day smoker Tobacco Type: Cigarette Packs Per Day: 1 Cigarettes Per Day: 20.0 Years Smoked: ~30 Second Hand Smoke Exposure: No Advance Directives: No service: No Sexual orientation: did not discuss Physical Exam Vital Signs: Vital Signs: Last Vital Signs Temp 98.7 F 06/11/20 04:02 Pulse 93 06/11/20 04:02 Resp 18 06/11/20 04:02 Pulse Ox 98 06/11/20 04:02 Body Mass Index 24.4 Appearance: Alert. Oriented X3. No acute distress. Eyes: Pupils equal, round and reactive to light. ENT: Pharynx normal. Neck: Normal inspection. Neck supple. No lymph nodes noted. No crepitus CVS: Normal heart rate and rhythm. Pulses normal. Normal S1 and S2 Respiratory: No respiratory distress. Breath sounds normal. No Wheezing. No rales Abdomen: Soft and nontender. No rigidity. No distention. good BS x4 Skin: Skin warm and dry. Normal skin color. Normal skin turgor. Extremities: No lower extremity edema. Neurovascular intact to all extremities. No Lacerations. No Rash Neuro: Oriented X 3. No motor deficit. No sensory deficit. Moving all extermities. No slurred speech MDM - Male Genitourinary MDM Narrative Medical decision making narrative: Well-appearing the Rodríguez catheter is currently working. Draining well. No distress. Patient given reassurance will discharge patient home. Discharge Plan Discharge Clinical Impression: Chronic indwelling Rodríguez catheter Patient Disposition: Home, Self-Care Instructions: Rodríguez Catheter Placement and Care (ED) Prescriptions: No Action lovastatin 40 mg tablet 40 mg PO DAILY 30 Days Qty: 30 RF: 8 clozapine 100 mg Tablet 300 mg PO BEDTIME 30 Days Qty: 90 RF: 0 lithium carbonate 300 mg Tablet Extended Release 600 mg PO BID 30 Days Qty: 120 RF: 0 benztropine 1 mg Tablet 1 mg PO BID 30 Days Qty: 60 RF: 0 docusate sodium 100 mg Capsule 100 mg PO BID 30 Days Qty: 60 RF: 0 perphenazine 8 mg Tablet 16 mg PO TID 30 Days Qty: 180 RF: 0 fluticasone propion-salmeterol [Wixela Inhub] 250-50 mcg/dose blister with device 1 puff PO BID 30 Days Qty: 1 RF: 0 tamsulosin 0.4 mg capsule 1 cap PO DAILY 30 Days Qty: 30 RF: 0 albuterol sulfate 90 mcg/actuation HFA aerosol inhaler 2 puff inhalation Q4H 30 Days Qty: 1 RF: 0 vitamin E 400 unit capsule 1 cap PO BID 30 Days Qty: 30 RF: 0 hydroxyzine pamoate 50 mg capsule 1 cap PO TID PRN (Reason: anxiety) RF: 0 cimetidine 300 mg tablet 1 tab PO Q12H RF: 0 tramadol 50 mg tablet 50 mg PO Q6H PRN (Reason: pain (scale score 4-6)) Qty: 14 RF: 0 trimethoprim 100 mg tablet 100 mg PO Q12H 10 Days Qty: 20 RF: 0 Referrals: Rufino Alberto MD [Physician] - 2 days
== END 2020-06-11 08:50 | disposition home or self-care (01) ==
PROVIDERS: Emergency Provider Emergency Medicine Emergency Medical Services; PCP Internal Medicine
DX: Z03.89 Encounter for observation for other suspected diseases and conditions ruled out (principal); Z96.0 Presence of urogenital implants; E78.5 Hyperlipidemia, unspecified; K21.9 Gastro-esophageal reflux disease without esophagitis; F17.210 Nicotine dependence, cigarettes, uncomplicated
CPT/HCPCS: 99283

== ENCOUNTER → 2020-06-13 08:35 | Outpatient (BNVA) | payer OTHER, SELFPAY | PROVIDERS: PCP Internal Medicine; Visit Provider Urology | DX: N40.1 Benign prostatic hyperplasia with lower urinary tract symptoms (principal); N13.8 Other obstructive and reflux uropathy | CPT/HCPCS: 51700; 99212 ==

== ENCOUNTER 2020-07-06 07:08 | Outpatient (REF) | payer OTHER, SELFPAY ==
[2020-07-06 07:31] LABS: MANUAL DIFF FLAG NO
[2020-07-06 07:43] LABS: Basophils Percent Auto 0.4 % (0-2); Eosinophils Absolute Auto 0.1 X10*3/uL (0.0-0.4); Eosinophils Percent Auto 0.8 % (0-4); Hematocrit 44.3 % (42-52); Hemoglobin 14.3 g/dl (14.0-18.0); Imm Gran Abs Auto 0.03 X10*3/uL (0.00-0.03); Imm Gran Pct Auto 0.3 % (0.0-0.4); Lymphocytes Absolute Auto 1.5 X10*3/uL (1.2-4.9); Lymphocytes Percent Auto 15.8 % (20-40); Mean Corpuscular HGB Conc 32.3 g/dl (31.0-36.0); Mean Corpuscular Hemoglobin 31.6 pg (27.0-33.0); Mean Corpuscular Volume 97.8 fL (80-98); Mean Platelet Volume 10.6 fL (9.4-12.4); Monocytes Absolute Auto 0.6 X10*3/uL (0.1-1.2); Monocytes Percent Auto 6.7 % (2-11); Neutrophils Absolute Auto 7.3 X10*3/uL (2.0-8.3); Platelet Count 207 X10*3/uL (160-400); Red Blood Count 4.53 X10*6/uL (4.60-5.80); Red Cell Distribution Width 13.6 % (11.0-16.0); WBCANC 9.6 X10*3/uL; White Blood Count 9.6 X10*3/uL (4.8-10.8)
== END 2020-07-06 07:09 | disposition home or self-care (01) ==
LOC: HO.LAB 07:08
PROVIDERS: PCP Internal Medicine; Visit Provider Psychiatry & Neurology Psychiatry
DX: Z79.899 Other long term (current) drug therapy (principal)
CPT/HCPCS: 36415; 85025; 85048

== ENCOUNTER → 2020-07-19 13:21 | Outpatient (BNVA) | payer OTHER, SELFPAY | PROVIDERS: PCP Internal Medicine; Visit Provider Urology | DX: N40.1 Benign prostatic hyperplasia with lower urinary tract symptoms (principal); N13.8 Other obstructive and reflux uropathy | CPT/HCPCS: 51798; 99212 ==

== ENCOUNTER 2020-08-03 07:10 | Outpatient (REF) | payer OTHER, SELFPAY ==
[2020-08-03 07:39] LABS: MANUAL DIFF FLAG NO
[2020-08-03 07:48] LABS: Basophils Absolute Auto 0.1 X10*3/uL (0.0-0.2); Basophils Percent Auto 0.3 % (0-2); Eosinophils Absolute Auto 0.1 X10*3/uL (0.0-0.4); Eosinophils Percent Auto 0.6 % (0-4); Hematocrit 45.4 % (42-52); Hemoglobin 14.6 g/dl (14.0-18.0); Imm Gran Pct Auto 0.6 % (0.0-0.4); Lymphocytes Absolute Auto 1.6 X10*3/uL (1.2-4.9); Lymphocytes Percent Auto 9.6 % (20-40); Mean Corpuscular HGB Conc 32.2 g/dl (31.0-36.0); Mean Corpuscular Hemoglobin 31.7 pg (27.0-33.0); Mean Corpuscular Volume 98.5 fL (80-98); Mean Platelet Volume 10.9 fL (9.4-12.4); Monocytes Absolute Auto 0.8 X10*3/uL (0.1-1.2); Monocytes Percent Auto 4.9 % (2-11); Neutrophils Absolute Auto 14.1 X10*3/uL (2.0-8.3); Platelet Count 212 X10*3/uL (160-400); Red Blood Count 4.61 X10*6/uL (4.60-5.80); Red Cell Distribution Width 13.5 % (11.0-16.0); WBCANC 16.8 X10*3/uL; White Blood Count 16.8 X10*3/uL (4.8-10.8)
== END 2020-08-03 07:11 | disposition home or self-care (01) ==
LOC: HO.LABR 07:10
PROVIDERS: PCP Internal Medicine; Visit Provider Psychiatry & Neurology Psychiatry
DX: Z79.899 Other long term (current) drug therapy (principal)
CPT/HCPCS: 36415; 85025; 85048

== ENCOUNTER 2020-08-31 07:00 | Outpatient (REF) | payer OTHER, SELFPAY ==
[2020-08-31 07:39] LABS: MANUAL DIFF FLAG NO
[2020-08-31 07:54] LABS: Basophils Percent Auto 0.4 % (0-2); Eosinophils Absolute Auto 0.1 X10*3/uL (0.0-0.4); Hematocrit 43.2 % (42-52); Imm Gran Abs Auto 0.11 X10*3/uL (0.00-0.03); Lymphocytes Absolute Auto 1.6 X10*3/uL (1.2-4.9); Lymphocytes Percent Auto 14.6 % (20-40); Mean Corpuscular HGB Conc 32.4 g/dl (31.0-36.0); Mean Corpuscular Hemoglobin 31.8 pg (27.0-33.0); Mean Corpuscular Volume 98.2 fL (80-98); Mean Platelet Volume 11.3 fL (9.4-12.4); Monocytes Absolute Auto 0.7 X10*3/uL (0.1-1.2); Neutrophils Absolute Auto 8.6 X10*3/uL (2.0-8.3); Platelet Count 204 X10*3/uL (160-400); Red Cell Distribution Width 13.2 % (11.0-16.0); WBCANC 11.2 X10*3/uL; White Blood Count 11.2 X10*3/uL (4.8-10.8)
== END 2020-08-31 07:01 | disposition home or self-care (01) ==
LOC: HO.LABR 07:00
PROVIDERS: PCP Internal Medicine; Visit Provider Psychiatry & Neurology Psychiatry
DX: Z79.899 Other long term (current) drug therapy (principal)
CPT/HCPCS: 36415; 85025; 85048

== ENCOUNTER 2020-09-28 07:08 | Outpatient (REF) | payer OTHER, SELFPAY ==
[2020-09-28 07:49] LABS: Imm Gran Abs Auto 0.02 X10*3/uL (0.00-0.03); Imm Gran Pct Auto 0.3 % (0.0-0.4); MANUAL DIFF FLAG SCAN; Mean Corpuscular HGB Conc 32.6 g/dl (31.0-36.0); Mean Corpuscular Volume 96.5 fL (80-98); PLT CLUMP 1; SCAN SMEAR FLAG 1
[2020-09-28 07:51] LABS: Basophils Percent Auto 0.3 % (0-2); Hematocrit 40.8 % (42-52); Hemoglobin 13.3 g/dl (14.0-18.0); Mean Corpuscular Hemoglobin 31.4 pg (27.0-33.0); Mean Platelet Volume 11.8 fL (9.4-12.4); Monocytes Absolute Auto 0.7 X10*3/uL (0.1-1.2); Monocytes Percent Auto 9.9 % (2-11); Neut%MD 44.5 %; Neutrophils Percent Auto 44.5 % (45-73); Red Blood Count 4.23 X10*6/uL (4.60-5.80); Red Cell Distribution Width 13.2 % (11.0-16.0); WBCANC 6.7 X10*3/uL; White Blood Count 6.7 X10*3/uL (4.8-10.8)
[2020-09-28 08:32] LABS: Platelet Count 130 X10*3/uL (160-400)
[2020-09-28 12:40] LABS: SLIDE REVIEW VERIFIED
== END 2020-09-28 07:09 | disposition home or self-care (01) ==
LOC: HO.LABR 07:08
PROVIDERS: PCP Internal Medicine; Visit Provider Psychiatry & Neurology Psychiatry
DX: Z79.899 Other long term (current) drug therapy (principal)
CPT/HCPCS: 36415; 85025

== ENCOUNTER 2020-10-26 07:47 | Outpatient (REF) | payer OTHER, SELFPAY ==
[2020-10-26 08:48] LABS: MANUAL DIFF FLAG NO
[2020-10-26 08:59] LABS: Basophils Percent Auto 0.4 % (0-2); Eosinophils Absolute Auto 0.1 X10*3/uL (0.0-0.4); Eosinophils Percent Auto 1.1 % (0-4); Hematocrit 42.8 % (42-52); Imm Gran Abs Auto 0.02 X10*3/uL (0.00-0.03); Imm Gran Pct Auto 0.3 % (0.0-0.4); Lymphocytes Absolute Auto 2.4 X10*3/uL (1.2-4.9); Lymphocytes Percent Auto 31.6 % (20-40); Mean Corpuscular HGB Conc 32.7 g/dl (31.0-36.0); Mean Corpuscular Hemoglobin 31.9 pg (27.0-33.0); Mean Corpuscular Volume 97.5 fL (80-98); Mean Platelet Volume 11.3 fL (9.4-12.4); Monocytes Absolute Auto 0.5 X10*3/uL (0.1-1.2); Neut%MD 59.6 %; Neutrophils Absolute Auto 4.5 X10*3/uL (2.0-8.3); Neutrophils Percent Auto 59.6 % (45-73); Platelet Count 188 X10*3/uL (160-400); Red Blood Count 4.39 X10*6/uL (4.60-5.80); Red Cell Distribution Width 13.6 % (11.0-16.0); WBCANC 7.5 X10*3/uL; White Blood Count 7.5 X10*3/uL (4.8-10.8)
[2020-10-26 09:41] LABS: PSA,Total (Free>4and<10) 0.41 ng/mL (0.00-4.00)
== END 2020-10-26 07:48 | disposition home or self-care (01) ==
LOC: HO.LABR 07:47
PROVIDERS: Urology; PCP Internal Medicine; Visit Provider Psychiatry & Neurology Psychiatry
DX: N40.1 Benign prostatic hyperplasia with lower urinary tract symptoms (principal); N13.8 Other obstructive and reflux uropathy; Z79.899 Other long term (current) drug therapy; Z12.5 Encounter for screening for malignant neoplasm of prostate
CPT/HCPCS: 36415; 84153; 85025

== ENCOUNTER → 2020-10-31 14:03 | Outpatient (BNVA) | payer OTHER, SELFPAY | PROVIDERS: PCP Internal Medicine; Visit Provider Urology | DX: Q55.29 Other congenital malformations of testis and scrotum (principal); N40.1 Benign prostatic hyperplasia with lower urinary tract symptoms; N13.8 Other obstructive and reflux uropathy | CPT/HCPCS: Q3014 ==

== ENCOUNTER 2020-11-23 08:09 | Outpatient (REF) | payer OTHER, SELFPAY ==
[2020-11-23 09:05] LABS: MANUAL DIFF FLAG NO
[2020-11-23 09:12] LABS: Basophils Absolute Auto 0.1 X10*3/uL (0.0-0.2); Basophils Percent Auto 0.5 % (0-2); Eosinophils Absolute Auto 0.1 X10*3/uL (0.0-0.4); Eosinophils Percent Auto 0.8 % (0-4); Hematocrit 45.5 % (42-52); Hemoglobin 14.7 g/dl (14.0-18.0); Imm Gran Abs Auto 0.03 X10*3/uL (0.00-0.03); Imm Gran Pct Auto 0.3 % (0.0-0.4); Lymphocytes Absolute Auto 1.9 X10*3/uL (1.2-4.9); Lymphocytes Percent Auto 19.6 % (20-40); Mean Corpuscular HGB Conc 32.3 g/dl (31.0-36.0); Mean Corpuscular Hemoglobin 32.2 pg (27.0-33.0); Mean Corpuscular Volume 99.8 fL (80-98); Mean Platelet Volume 11.4 fL (9.4-12.4); Monocytes Absolute Auto 0.6 X10*3/uL (0.1-1.2); Monocytes Percent Auto 6.3 % (2-11); Neut%MD 72.5 %; Neutrophils Percent Auto 72.5 % (45-73); Platelet Count 195 X10*3/uL (160-400); Red Blood Count 4.56 X10*6/uL (4.60-5.80); Red Cell Distribution Width 13.5 % (11.0-16.0); WBCANC 9.6 X10*3/uL; White Blood Count 9.6 X10*3/uL (4.8-10.8)
== END 2020-11-23 08:10 | disposition home or self-care (01) ==
LOC: HO.LABR 08:09
PROVIDERS: PCP Internal Medicine; Visit Provider Psychiatry & Neurology Psychiatry
DX: Z79.899 Other long term (current) drug therapy (principal)
CPT/HCPCS: 36415; 85025

== ENCOUNTER 2020-12-19 14:02 | Outpatient (REF) | payer OTHER, SELFPAY ==
--- NOTE | ~2020-12-19 | XR_ITS ---
EXAMINATION: XR CHEST CLINICAL INFORMATION: Hemoptysis. COMPARISON: CT abdomen 11/01/2019. TECHNIQUE: 2 views of the chest were obtained. FINDINGS: No significant abnormality is noted involving the heart, lungs, mediastinum, bony thorax or soft tissues. Some minimal left basilar atelectasis/scarring is seen similar to that which can be seen on the 11/01/2019 CT abdomen. XR/XR chest 2V IMPRESSION: No acute intrathoracic disease. Minimal left basilar atelectasis/scarring.
== END 2020-12-19 14:03 | disposition home or self-care (01) ==
LOC: HO.XRAY 14:02
PROVIDERS: PCP Internal Medicine; Visit Provider Internal Medicine
DX: R04.2 Hemoptysis (principal)
CPT/HCPCS: 71046

== ENCOUNTER 2021-01-04 07:38 | Outpatient (REF) | payer OTHER, SELFPAY ==
[2021-01-04 07:48] LABS: MANUAL DIFF FLAG NO
[2021-01-04 07:58] LABS: Basophils Percent Auto 0.4 % (0-2); Eosinophils Absolute Auto 0.1 X10*3/uL (0.0-0.4); Eosinophils Percent Auto 1.1 % (0-4); Hematocrit 45.7 % (42.0-52.0); Imm Gran Abs Auto 0.03 X10*3/uL (0.00-0.03); Imm Gran Pct Auto 0.3 % (0.0-0.4); Lymphocytes Absolute Auto 2.2 X10*3/uL (1.2-4.9); Lymphocytes Percent Auto 24.8 % (20-40); Mean Corpuscular HGB Conc 32.8 g/dl (31.0-36.0); Mean Corpuscular Hemoglobin 31.8 pg (27.0-33.0); Mean Corpuscular Volume 96.8 fL (80.0-98.0); Mean Platelet Volume 10.5 fL (9.4-12.4); Monocytes Absolute Auto 0.6 X10*3/uL (0.1-1.2); Monocytes Percent Auto 7.1 % (2-11); Neutrophils Absolute Auto 5.96 x10*3/uL (2.0-8.3); Neutrophils Percent Auto 66.3 % (45-73); Platelet Count 189 X10*3/uL (160-400); Red Blood Count 4.72 X10*6/uL (4.60-5.80)
== END 2021-01-04 07:39 | disposition home or self-care (01) ==
LOC: HO.LABR 07:38
PROVIDERS: PCP Internal Medicine; Visit Provider Psychiatry & Neurology Psychiatry
DX: Z79.899 Other long term (current) drug therapy (principal)
CPT/HCPCS: 36415; 85025

== ENCOUNTER 2021-01-06 13:41 | Outpatient (REF) | payer OTHER, SELFPAY | END 2021-01-06 13:42 | disposition home or self-care (01) | LOC: HO.LAB 13:41 | PROVIDERS: PCP Internal Medicine; Visit Provider Internal Medicine | DX: Z20.822 Contact with and (suspected) exposure to COVID-19 (principal); R06.00 Dyspnea, unspecified | CPT/HCPCS: U0003; U0005 ==

== ENCOUNTER 2021-01-11 07:26 | Outpatient (REF) | payer OTHER, SELFPAY ==
[2021-01-11 07:33] LABS: MANUAL DIFF FLAG NO
[2021-01-11 08:10] LABS: Basophils Percent Auto 0.5 % (0-2); Eosinophils Absolute Auto 0.1 X10*3/uL (0.0-0.4); Eosinophils Percent Auto 1.2 % (0-4); Hematocrit 43.7 % (42.0-52.0); Hemoglobin 14.2 g/dl (14.0-18.0); Imm Gran Abs Auto 0.03 X10*3/uL (0.00-0.03); Imm Gran Pct Auto 0.4 % (0.0-0.4); Lymphocytes Absolute Auto 1.8 X10*3/uL (1.2-4.9); Lymphocytes Percent Auto 22.9 % (20-40); Mean Corpuscular HGB Conc 32.5 g/dl (31.0-36.0); Mean Corpuscular Hemoglobin 32.1 pg (27.0-33.0); Mean Corpuscular Volume 98.6 fL (80.0-98.0); Mean Platelet Volume 10.7 fL (9.4-12.4); Monocytes Absolute Auto 0.6 X10*3/uL (0.1-1.2); Monocytes Percent Auto 7.5 % (2-11); Neutrophils Absolute Auto 5.2 x10*3/uL (2.0-8.3); Neutrophils Percent Auto 67.5 % (45-73); Platelet Count 176 X10*3/uL (160-400); Red Blood Count 4.43 X10*6/uL (4.60-5.80); Red Cell Distribution Width 12.5 % (11.0-16.0); White Blood Count 7.7 X10*3/uL (4.8-10.8)
[2021-01-11 08:36] LABS: Alanine Aminotransferase 68 U/L (0-40); Albumin Level 4.3 g/dL (3.5-5.0); Alkaline Phosphatase 69 U/L (39-117); Anion Gap 7 (12-20); Aspartate Amino Transferase 33 U/L (5-37); Bilirubin Total 2.3 mg/dL (0.0-1.0); Blood Urea Nitrogen 11 mg/dL (9-16); Calcium 8.9 mg/dL (8.4-10.2); Carbon Dioxide 29 mmol/L (22-29); Chloride 109 mmol/L (96-108); Cholesterol 154 mg/dL; Estimated Glomerular Filt Rate > 60; Glucose Fasting 109 mg/dL (60-99); HDL Cholesterol 43 mg/dL; LDL Cholesterol Calculated 79 mg/dl; Potassium 4.3 mmol/L (3.3-5.1); Sodium 141 mmol/L (135-145); Total Protein 6.6 g/dL (6.5-8.0); Triglycerides 164 mg/dL
[2021-01-11 08:55] LABS: Thyroid Stimulating Hormone 2.91 uIU/mL (0.32-4.0)
== END 2021-01-11 07:27 | disposition home or self-care (01) ==
LOC: HO.LAB 07:26
PROVIDERS: PCP Internal Medicine; Visit Provider Internal Medicine
DX: Z00.00 Encounter for general adult medical examination without abnormal findings (principal); N39.0 Urinary tract infection, site not specified
CPT/HCPCS: 36415; 80053; 80061; 84443; 85025

== ENCOUNTER 2021-02-08 07:40 | Outpatient (REF) | payer OTHER, SELFPAY ==
[2021-02-08 07:48] LABS: MANUAL DIFF FLAG NO
[2021-02-08 09:39] LABS: Basophils Percent Auto 0.4 % (0-2); Eosinophils Absolute Auto 0.1 X10*3/uL (0.0-0.4); Eosinophils Percent Auto 1.2 % (0-4); Hematocrit 40.9 % (42.0-52.0); Hemoglobin 13.1 g/dl (14.0-18.0); Imm Gran Abs Auto 0.03 X10*3/uL (0.00-0.03); Imm Gran Pct Auto 0.3 % (0.0-0.4); Lymphocytes Absolute Auto 2.3 X10*3/uL (1.2-4.9); Lymphocytes Percent Auto 23.4 % (20-40); Mean Corpuscular Hemoglobin 31.3 pg (27.0-33.0); Mean Corpuscular Volume 97.6 fL (80.0-98.0); Mean Platelet Volume 11.1 fL (9.4-12.4); Monocytes Absolute Auto 0.7 X10*3/uL (0.1-1.2); Monocytes Percent Auto 7.2 % (2-11); Neut%MD 67.5 %; Neutrophils Absolute Auto 6.7 x10*3/uL (2.0-8.3); Neutrophils Percent Auto 67.5 % (45-73); Platelet Count 199 X10*3/uL (160-400); Red Blood Count 4.19 X10*6/uL (4.60-5.80); Red Cell Distribution Width 12.9 % (11.0-16.0)
== END 2021-02-08 07:41 | disposition home or self-care (01) ==
LOC: HO.LAB 07:40
PROVIDERS: PCP Internal Medicine; Visit Provider Psychiatry & Neurology Psychiatry
DX: Z79.899 Other long term (current) drug therapy (principal)
CPT/HCPCS: 36415; 85025

== ENCOUNTER 2021-02-13 15:23 | Outpatient (REF) | payer OTHER, SELFPAY ==
--- NOTE | ~2021-02-13 | US_ITS ---
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 COMPARISON: Ultrasound scrotum, most recent 09/01/2018. TECHNIQUE: A sonogram of the scrotum was performed assessing wagoner-scale appearance and color Doppler flow. Spectral Doppler analysis of the arterial and venous flow were performed in the testes bilaterally. FINDINGS: RIGHT: Right testicle measures 5.0 x 2.3 x 3.5 cm, volume 21.2 mL. No focal testicular parenchymal lesions are visualized. Spectral Doppler analysis of the arterial and venous flow is normal in the right testis. Right epididymal head is normal in size. There is a triangular shaped echogenic area adjacent to the epididymal head is superior testicle that measures 6 x 5 x 6 mm and is unchanged. No right varicocele is seen. There is a small right hydrocele. Right epididymal Doppler flow is normal. LEFT: Left testicle measures 5.1 x 2.2 x 3.4 cm, volume 19.9 mL. No focal testicular parenchymal lesions are visualized. Spectral Doppler analysis of the arterial and venous flow is normal in the left testis. Left epididymal head is normal in size. There is a 6 x 5 x 6 mm left epididymal head cyst. No left varicocele is seen. There is a small left hydrocele. Left epididymal Doppler flow is normal. US/US scrotum IMPRESSION: Stable echogenic area adjacent to the right epididymal head is superior right testicle. Stable small left epididymal head cyst. Small bilateral hydroceles.
== END 2021-02-13 15:24 | disposition home or self-care (01) ==
LOC: HO.US 15:23
PROVIDERS: PCP Internal Medicine; Visit Provider Urology
DX: N43.3 Hydrocele, unspecified (principal)
CPT/HCPCS: 76870

== ENCOUNTER → 2021-02-18 10:28 | Outpatient (BNVA) | payer OTHER, SELFPAY | PROVIDERS: PCP Internal Medicine; Visit Provider Urology | DX: N40.1 Benign prostatic hyperplasia with lower urinary tract symptoms (principal); N13.8 Other obstructive and reflux uropathy | CPT/HCPCS: 51798; 99212 ==

== ENCOUNTER 2021-03-15 09:52 | Outpatient (REF) | payer OTHER, SELFPAY ==
[2021-03-15 10:01] LABS: MANUAL DIFF FLAG NO
[2021-03-15 11:12] LABS: Basophils Percent Auto 0.4 % (0-2); Eosinophils Absolute Auto 0.1 X10*3/uL (0.0-0.4); Eosinophils Percent Auto 0.8 % (0-4); Hematocrit 37.7 % (42.0-52.0); Imm Gran Pct Auto 1.3 % (0.0-0.4); Lymphocytes Absolute Auto 1.8 X10*3/uL (1.2-4.9); Lymphocytes Percent Auto 22.6 % (20-40); Mean Corpuscular HGB Conc 31.8 g/dl (31.0-36.0); Mean Corpuscular Hemoglobin 31.2 pg (27.0-33.0); Mean Corpuscular Volume 97.9 fL (80.0-98.0); Mean Platelet Volume 11.3 fL (9.4-12.4); Monocytes Absolute Auto 0.6 X10*3/uL (0.1-1.2); Neut%MD 66.9 %; Neutrophils Absolute Auto 5.2 x10*3/uL (2.0-8.3); Neutrophils Percent Auto 66.9 % (45-73); Platelet Count 289 X10*3/uL (160-400); Red Blood Count 3.85 X10*6/uL (4.60-5.80); Red Cell Distribution Width 13.2 % (11.0-16.0); WBCANC 7.8 X10*3/uL; White Blood Count 7.8 X10*3/uL (4.8-10.8)
== END 2021-03-15 09:53 | disposition home or self-care (01) ==
LOC: HO.LAB 09:52
PROVIDERS: PCP Internal Medicine; Visit Provider Psychiatry & Neurology Psychiatry
DX: Z79.899 Other long term (current) drug therapy (principal)
CPT/HCPCS: 36415; 85025

== ENCOUNTER 2021-04-19 07:45 | Outpatient (REF) | payer OTHER, SELFPAY ==
[2021-04-19 07:57] LABS: MANUAL DIFF FLAG NO
[2021-04-19 08:41] LABS: Basophils Absolute Auto 0.1 X10*3/uL (0.0-0.2); Basophils Percent Auto 0.5 % (0-2); Eosinophils Absolute Auto 0.2 X10*3/uL (0.0-0.4); Eosinophils Percent Auto 1.7 % (0-4); Hemoglobin 13.6 g/dl (14.0-18.0); Imm Gran Abs Auto 0.06 X10*3/uL (0.00-0.03); Imm Gran Pct Auto 0.6 % (0.0-0.4); Lymphocytes Absolute Auto 2.7 X10*3/uL (1.2-4.9); Lymphocytes Percent Auto 28.2 % (20-40); Mean Corpuscular HGB Conc 32.4 g/dl (31.0-36.0); Mean Corpuscular Hemoglobin 31.6 pg (27.0-33.0); Mean Corpuscular Volume 97.4 fL (80.0-98.0); Mean Platelet Volume 10.8 fL (9.4-12.4); Monocytes Absolute Auto 0.7 X10*3/uL (0.1-1.2); Monocytes Percent Auto 7.1 % (2-11); Neut%MD 61.9 %; Neutrophils Absolute Auto 5.9 x10*3/uL (2.0-8.3); Neutrophils Percent Auto 61.9 % (45-73); Platelet Count 211 X10*3/uL (160-400); Red Blood Count 4.31 X10*6/uL (4.60-5.80); Red Cell Distribution Width 12.5 % (11.0-16.0); WBCANC 9.5 X10*3/uL; White Blood Count 9.5 X10*3/uL (4.8-10.8)
== END 2021-04-19 07:46 | disposition home or self-care (01) ==
LOC: HO.LABR 07:45
PROVIDERS: Clinical Nurse Specialist Psychiatric/Mental Health, Adult; PCP Internal Medicine; Visit Provider Psychiatry & Neurology Psychiatry
DX: Z79.899 Other long term (current) drug therapy (principal)
CPT/HCPCS: 36415; 85025

== ENCOUNTER 2021-06-07 10:27 | Outpatient (REF) | payer OTHER, SELFPAY ==
[2021-06-07 07:58] LABS: MANUAL DIFF FLAG NO
[2021-06-07 09:28] LABS: Basophils Absolute Auto 0.1 X10*3/uL (0.0-0.2); Basophils Percent Auto 0.6 % (0-2); Eosinophils Absolute Auto 0.1 X10*3/uL (0.0-0.4); Eosinophils Percent Auto 0.9 % (0-4); Hematocrit 42.7 % (42.0-52.0); Hemoglobin 13.8 g/dl (14.0-18.0); Imm Gran Abs Auto 0.04 X10*3/uL (0.00-0.03); Imm Gran Pct Auto 0.4 % (0.0-0.4); Lymphocytes Absolute Auto 2.4 X10*3/uL (1.2-4.9); Lymphocytes Percent Auto 26.7 % (20-40); Mean Corpuscular HGB Conc 32.3 g/dl (31.0-36.0); Mean Corpuscular Hemoglobin 31.6 pg (27.0-33.0); Mean Corpuscular Volume 97.7 fL (80.0-98.0); Mean Platelet Volume 11.2 fL (9.4-12.4); Monocytes Absolute Auto 0.6 X10*3/uL (0.1-1.2); Monocytes Percent Auto 6.6 % (2-11); Neut%MD 64.8 %; Neutrophils Absolute Auto 5.9 x10*3/uL (2.0-8.3); Neutrophils Percent Auto 64.8 % (45-73); Platelet Count 209 X10*3/uL (160-400); Red Blood Count 4.37 X10*6/uL (4.60-5.80); Red Cell Distribution Width 12.4 % (11.0-16.0)
== END 2021-06-07 10:28 | disposition home or self-care (01) ==
LOC: HO.LABR 10:27
PROVIDERS: PCP Internal Medicine; Visit Provider Psychiatry & Neurology Psychiatry
DX: Z79.899 Other long term (current) drug therapy (principal)
CPT/HCPCS: 36415; 85025

== ENCOUNTER 2021-07-19 07:41 | Outpatient (REF) | payer OTHER, SELFPAY ==
[2021-07-19 07:55] LABS: MANUAL DIFF FLAG NO
[2021-07-19 08:50] LABS: Basophils Absolute Auto 0.1 X10*3/uL (0.0-0.2); Basophils Percent Auto 0.5 % (0-2); Eosinophils Absolute Auto 0.1 X10*3/uL (0.0-0.4); Eosinophils Percent Auto 1.4 % (0-4); Hematocrit 40.5 % (42.0-52.0); Hemoglobin 13.1 g/dl (14.0-18.0); Imm Gran Abs Auto 0.03 X10*3/uL (0.00-0.03); Imm Gran Pct Auto 0.3 % (0.0-0.4); Lymphocytes Absolute Auto 2.1 X10*3/uL (1.2-4.9); Lymphocytes Percent Auto 22.2 % (20-40); Mean Corpuscular HGB Conc 32.3 g/dl (31.0-36.0); Mean Corpuscular Hemoglobin 31.7 pg (27.0-33.0); Mean Corpuscular Volume 98.1 fL (80.0-98.0); Mean Platelet Volume 10.8 fL (9.4-12.4); Monocytes Absolute Auto 0.7 X10*3/uL (0.1-1.2); Monocytes Percent Auto 6.9 % (2-11); Neut%MD 68.7 %; Neutrophils Absolute Auto 6.6 x10*3/uL (2.0-8.3); Neutrophils Percent Auto 68.7 % (45-73); Platelet Count 228 X10*3/uL (160-400); Red Blood Count 4.13 X10*6/uL (4.60-5.80); Red Cell Distribution Width 12.2 % (11.0-16.0); WBCANC 9.6 X10*3/uL; White Blood Count 9.6 X10*3/uL (4.8-10.8)
== END 2021-07-19 07:42 | disposition home or self-care (01) ==
LOC: HO.LABR 07:41
PROVIDERS: PCP Internal Medicine; Visit Provider Psychiatry & Neurology Psychiatry
DX: Z79.899 Other long term (current) drug therapy (principal)
CPT/HCPCS: 36415; 85025

== ENCOUNTER → 2021-08-14 13:56 | Outpatient (BNVA) | payer OTHER, SELFPAY | PROVIDERS: PCP Internal Medicine; Visit Provider Physician Assistant | DX: R19.7 Diarrhea, unspecified (principal) | CPT/HCPCS: 99202; 99212 ==

== ENCOUNTER 2021-08-16 07:18 | Outpatient (REF) | payer OTHER, SELFPAY ==
[2021-08-16 07:39] LABS: MANUAL DIFF FLAG NO
[2021-08-16 08:35] LABS: Basophils Absolute Auto 0.1 X10*3/uL (0.0-0.2); Basophils Percent Auto 0.7 % (0-2); Eosinophils Absolute Auto 0.2 X10*3/uL (0.0-0.4); Hematocrit 41.3 % (42.0-52.0); Hemoglobin 13.6 g/dl (14.0-18.0); Imm Gran Abs Auto 0.03 X10*3/uL (0.00-0.03); Imm Gran Pct Auto 0.4 % (0.0-0.4); Lymphocytes Absolute Auto 2.4 X10*3/uL (1.2-4.9); Lymphocytes Percent Auto 31.2 % (20-40); Mean Corpuscular HGB Conc 32.9 g/dl (31.0-36.0); Mean Corpuscular Hemoglobin 31.5 pg (27.0-33.0); Mean Corpuscular Volume 95.6 fL (80.0-98.0); Monocytes Absolute Auto 0.5 X10*3/uL (0.1-1.2); Monocytes Percent Auto 6.3 % (2-11); Neutrophils Absolute Auto 4.6 x10*3/uL (2.0-8.3); Neutrophils Percent Auto 59.4 % (45-73); Platelet Count 204 X10*3/uL (160-400); Red Blood Count 4.32 X10*6/uL (4.60-5.80); Red Cell Distribution Width 11.9 % (11.0-16.0); White Blood Count 7.6 X10*3/uL (4.8-10.8)
[2021-08-16 08:58] LABS: C Reactive Protein 0.07 mg/dL (< or = 0.50)
[2021-08-16 09:10] LABS: Thyroid Stimulating Hormone 4.77 uIU/mL (0.32-4.0)
[2021-08-16 09:16] LABS: Erythrocyte Sedimentation Rate 7 MM/HR (0-15)
[2021-08-16 12:39] LABS: CDiff Gene PCR NEGATIVE (Negative)
[2021-08-20 20:36] LABS: Fecal Fat Qualitative Normal (Normal)
[2021-08-23 07:36] LABS: Transglutaminase IgA <1.0 U/mL
[2021-08-23 16:36] LABS: Pancreatic Elastase-1 275 mcg/g
== END 2021-08-16 07:19 | disposition home or self-care (01) ==
LOC: HO.LABR 07:18
PROVIDERS: Physician Assistant; PCP Internal Medicine; Visit Provider Psychiatry & Neurology Psychiatry
DX: R19.7 Diarrhea, unspecified (principal); K59.09 Other constipation; Z79.899 Other long term (current) drug therapy
CPT/HCPCS: 36415; 82656; 82705; 84443; 85025; 85652; 86140; 86364; 87177; 87209; 87493

== ENCOUNTER → 2021-08-21 08:57 | Outpatient (BNVA) | payer OTHER, SELFPAY | PROVIDERS: PCP Internal Medicine; Visit Provider Urology | DX: N40.1 Benign prostatic hyperplasia with lower urinary tract symptoms (principal); N13.8 Other obstructive and reflux uropathy | CPT/HCPCS: 51798; 99212 ==

== ENCOUNTER 2021-09-13 07:23 | Outpatient (REF) | payer OTHER, SELFPAY ==
[2021-09-13 07:34] LABS: MANUAL DIFF FLAG NO
[2021-09-13 07:47] LABS: Basophils Percent Auto 0.5 % (0-2); Eosinophils Absolute Auto 0.1 X10*3/uL (0.0-0.4); Hematocrit 39.4 % (42.0-52.0); Hemoglobin 13.2 g/dl (14.0-18.0); Imm Gran Abs Auto 0.02 X10*3/uL (0.00-0.03); Imm Gran Pct Auto 0.2 % (0.0-0.4); Lymphocytes Absolute Auto 2.3 X10*3/uL (1.2-4.9); Lymphocytes Percent Auto 27.9 % (20-40); Mean Corpuscular HGB Conc 33.5 g/dl (31.0-36.0); Mean Corpuscular Hemoglobin 32.3 pg (27.0-33.0); Mean Corpuscular Volume 96.3 fL (80.0-98.0); Mean Platelet Volume 10.6 fL (9.4-12.4); Monocytes Absolute Auto 0.6 X10*3/uL (0.1-1.2); Monocytes Percent Auto 7.7 % (2-11); Neutrophils Absolute Auto 5.1 x10*3/uL (2.0-8.3); Neutrophils Percent Auto 62.7 % (45-73); Platelet Count 191 X10*3/uL (160-400); Red Blood Count 4.09 X10*6/uL (4.60-5.80); Red Cell Distribution Width 12.2 % (11.0-16.0); White Blood Count 8.1 X10*3/uL (4.8-10.8)
== END 2021-09-13 07:24 | disposition home or self-care (01) ==
LOC: HO.LABR 07:23
PROVIDERS: PCP Internal Medicine; Visit Provider Psychiatry & Neurology Psychiatry
DX: Z79.899 Other long term (current) drug therapy (principal)
CPT/HCPCS: 36415; 85025

== ENCOUNTER 2021-09-27 07:15 | Outpatient (REF) | payer OTHER, SELFPAY ==
[2021-09-27 08:19] LABS: Cholesterol 165 mg/dL; HDL Cholesterol 36 mg/dL; LDL Cholesterol Calculated 59 mg/dl; Triglycerides 351 mg/dL
== END 2021-09-27 07:16 | disposition home or self-care (01) ==
LOC: HO.LAB 07:15
PROVIDERS: PCP Internal Medicine; Visit Provider Internal Medicine
DX: E78.5 Hyperlipidemia, unspecified (principal)
CPT/HCPCS: 36415; 80061

== ENCOUNTER 2021-10-11 07:16 | Outpatient (REF) | payer OTHER, SELFPAY ==
[2021-10-11 07:25] LABS: MANUAL DIFF FLAG NO
[2021-10-11 07:59] LABS: Basophils Percent Auto 0.4 % (0-2); Eosinophils Absolute Auto 0.1 X10*3/uL (0.0-0.4); Eosinophils Percent Auto 0.9 % (0-4); Hematocrit 42.7 % (42.0-52.0); Hemoglobin 14.4 g/dl (14.0-18.0); Imm Gran Abs Auto 0.03 X10*3/uL (0.00-0.03); Imm Gran Pct Auto 0.3 % (0.0-0.4); Lymphocytes Percent Auto 20.6 % (20-40); Mean Corpuscular HGB Conc 33.7 g/dl (31.0-36.0); Mean Corpuscular Hemoglobin 31.4 pg (27.0-33.0); Mean Corpuscular Volume 93.2 fL (80.0-98.0); Mean Platelet Volume 11.3 fL (9.4-12.4); Monocytes Absolute Auto 0.6 X10*3/uL (0.1-1.2); Monocytes Percent Auto 5.7 % (2-11); Neutrophils Absolute Auto 7.1 x10*3/uL (2.0-8.3); Neutrophils Percent Auto 72.1 % (45-73); Platelet Count 194 X10*3/uL (160-400); Red Blood Count 4.58 X10*6/uL (4.60-5.80); White Blood Count 9.9 X10*3/uL (4.8-10.8)
== END 2021-10-11 07:17 | disposition home or self-care (01) ==
LOC: HO.LABR 07:16
PROVIDERS: PCP Internal Medicine; Visit Provider Psychiatry & Neurology Psychiatry
DX: Z79.899 Other long term (current) drug therapy (principal)
CPT/HCPCS: 36415; 85025

== ENCOUNTER 2021-10-14 13:39 | Inpatient (IN) | payer OTHER, SELFPAY ==
[2021-10-14 14:50] VITALS: BP 151/104; PULSE 81; RESP 16; TEMP 37; O2SAT 96; BMI 27.5
--- NOTE | 2021-10-14 16:35 | PC.NURSE ---
patient recollected to t/w that for medical issues he has dx of gerd, elevate cholesterol, schizoaffective, maybe ptsd. he reports that around the time of his fathers there was a gas problem around his house (like a leak). states he doesnt use drugs or etoh excepting beers 3 beers 3-4 times a week. reports smoking cigarettes in the past and being amenable to receiving nicotine gum. denies hallucinations. received covid vaccines, moderna. lives alone. reports current with medications and seems to want help.
[2021-10-14 16:46] LABS: Amphetamine Screen Urine Not Detected (Not Detect); Barbiturates, Urine Not Detected (Not Detect); Benzodiazepines Screen Urine Not Detected (Not Detect); Cannabinoid Screen Urine Not Detected (Not Detect); Cocaine Screen Urine Not Detected (Not Detect); Fentanyl, urine Not Detected (Not Detect); Opiate Screen Urine Not Detected (Not Detect); Phencyclidine Screen Urine Not Detected (Not Detect)
[2021-10-14 16:47] LABS: COVID-19 Test Negative (Negative)
[2021-10-14] MEDS: LORazepam 1 MG TABLET 2 MG PO (17:00)
--- NOTE | 2021-10-14 17:23 | ED_ITS ---
HPI - Psych General Chief Complaint: Psychiatric Symptoms Stated Complaint: Crisis Time Seen by Provider: 10/14/21 16:03 Source: patient Mode of arrival: ambulatory History of Present Illness HPI Narrative: 51-year-old male presents with ?feeling like he is going to have a nervous breakdown? and states that he has taken himself off of closet rule because it is like ?metaphorically being water boarded?. In addition, patient has stop taking lithium as he feels it is leading to him having diarrhea. He states that he is interested in getting started on different medications and states that he really likes Seroquel. He has been feeling sad since the of his father and states that he has hundreds of delusions of grandeur in his mind. He denies any suicidal or homicidal ideation Related Data Home Medications Medication Instructions Recorded Confirmed hydroxyzine pamoate 50 mg capsule 1 cap PO TID PRN anxiety 05/31/20 10/14/21 clozapine 100 mg tablet 200 mg PO DAILY 01/06/21 09/24/21 fluticasone 250 mcg-salmeterol 50 1 inh inhalation BID 08/21/21 10/14/21 mcg/dose blistr powdr for inhalation (Wixela Inhub) benztropine 1 mg tablet 1 mg PO BEDTIME 10/14/21 Previous Rx's Medication Instructions Recorded lithium carbonate 300 mg 600 mg PO BID 30 days #120 tabs 02/23/20 tablet,extended release perphenazine 8 mg tablet 16 mg PO TID 30 days #180 tabs 02/23/20 vitamin E 268 mg (400 unit) capsule 1 cap PO BID 30 days #30 caps 02/23/20 cimetidine 300 mg tablet 300 mg PO Q12H #90 tabs 01/10/21 lovastatin 40 mg tablet 40 mg PO DAILY 30 days #30 tabs 02/27/21 albuterol sulfate 90 mcg/actuation 2 puff inhalation Q4H 30 days #1 g 06/12/21 aerosol inhaler loperamide 2 mg capsule (Imodium 2 mg PO Q6H PRN loose stool #30 07/01/21 A-D) caps nicotine (polacrilex) 4 mg gum 4 mg buccal Q1H #100 ea 08/11/21 methylcellulose (laxative) 500 mg 500 mg PO BID #60 tabs 08/14/21 tablet (Citrucel) Allergies Allergy/AdvReac Type Severity Reaction Status Date / Time divalproex sodium Allergy Severe PANCREATITI Verified 09/24/21 09:22 [From DEPAKOTE] S haloperidol [From Haldol] Allergy Intermediate DYSTONIC Verified 09/24/21 09:22 REACTION Review of Systems Review of Systems: Pertinent positives and negatives as stated in HPI 10 point review of systems is otherwise negative. PMFSH Past Medical History Source: nursing notes reviewed Medical History Anxiety COPD (chronic obstructive pulmonary disease) Difficulty sleeping Elevated cholesterol GERD (gastroesophageal reflux disease) Hx of pancreatitis Hyperlipidemia Obesity Schizoaffective disorder Smoker Surgical History History of bilateral cataract extraction History of bunionectomy History of excision of mass Hx of colonoscopy Family History Family History Father Diabetes Mother No problems noted. Paternal Grandfather Gastric cancer Social History Social History Household Members: None Housing: Apartment Are you a primary director of career services to a significant other at home: No Do you presently have visiting nurse or other home services: No Alcohol intake: current Alcohol intake frequency: a few times a week Alcohol type: beer Patient Tobacco Use Status: Former Tobacco user Tobacco use type: Cigarette Years Smoked: ~30 e-Cigarette/Vaping Use: Never Used Second Hand Smoke Exposure: No Advance Directives: No Advance Directives Information Provided: No service: No Current occupational status: disabled Sexual orientation: did not discuss Cognitive needs: No Hearing needs: No Vision needs: No Physical Exam Vital Signs: Vital Signs: Last Vital Signs Temp 98.6 F 10/14/21 14:50 Pulse 81 10/14/21 14:50 Resp 16 10/14/21 14:50 BP 151/104 H 10/14/21 14:50 Pulse Ox 96 10/14/21 14:50 O2 Del Method 10/14/21 14:50 BMI result Body Mass Index 27.5 VITAL SIGNS: Reviewed. GENERAL: Well developed, well nourished, in no acute distress. HEAD: Normocephalic/atraumatic EYES: PERRLA, EOMI EARS: Ext canals without abnormality OROPHARYNX: no oral lesions noted, posterior pharynx clear LUNGS: Normal breath sounds. No adventitious sounds or accessory muscle use. SpO2<96> CARDIOVASCULAR: Regular rate and rhythm without noted murmurs ABDOMEN: Soft, non-tender, non-distended with bowel sounds. NEUROLOGIC: Alert and oriented x 4. Strength and sensation to light touch were grossly intact x 4, cranial nerves 2-12 are grossly intact. PSYCH: Calm, cooperative, delusional Course Course Course Narrative: 51-year-old male with history and clinical presentation consistent with decompensation and delusions after taking himself off of clozapine and lithium. He denies suicidal homicidal ideation. Reevaluation(s) Reevaluation #1: Patient placed in physician observation because the patient needed more time for medical clearance and N evaluation. At the time observation was started the patient's vital signs were stable, patient is alert, neuro: Nonfocal, CV RRR, lungs clear Time: 17:46 [facility] - Psych Lab Data Labs: Lab Results 10/14/21 10/14/21 Range/Units 16:20 16:22 Urine Opiates Screen Not Detected (Not Detect) Urine Fentanyl Screen Not Detected (Not Detect) Ur Barbiturates Screen Not Detected (Not Detect) Ur Phencyclidine Scrn Not Detected (Not Detect) Ur Amphetamines Screen Not Detected (Not Detect) U Benzodiazepines Scrn Not Detected (Not Detect) Urine Cocaine Screen Not Detected (Not Detect) U Marijuana (THC) Screen Not Detected (Not Detect) COVID-19 (CARLY) Negative (Negative) COVID-19 Clin Com See Note Discharge Plan Discharge Clinical Impression: Schizoaffective disorder, Delusional disorder Patient Disposition: Still a Patient Prescriptions: No Action cimetidine 300 mg tablet 300 mg PO Q12H Qty: 90 8RF lovastatin 40 mg tablet 40 mg PO DAILY 30 Days Qty: 30 8RF albuterol sulfate 90 mcg/actuation HFA aerosol inhaler 2 puff inhalation Q4H 30 Days Qty: 1 7RF nicotine (polacrilex) 4 mg gum 4 mg buccal Q1H Qty: 100 8RF lithium carbonate 300 mg Tablet Extended Release 600 mg PO BID 30 Days Qty: 120 0RF perphenazine 8 mg Tablet 16 mg PO TID 30 Days Qty: 180 0RF vitamin E 400 unit capsule 1 cap PO BID 30 Days Qty: 30 0RF hydroxyzine pamoate 50 mg capsule 1 cap PO TID PRN (Reason: anxiety) benztropine 1 mg tablet 1 mg PO BEDTIME clozapine 100 mg tablet 200 mg PO DAILY loperamide [Imodium A-D] 2 mg capsule 2 mg PO Q6H PRN (Reason: loose stool) Qty: 30 7RF fluticasone propion-salmeterol [Wixela Inhub] 250-50 mcg/dose blister with device 1 inh inhalation BID Citrucel 500 mg tablet 500 mg PO BID Qty: 60 5RF
[2021-10-14] MEDS: Nicotine Polacrilex 2 MG GUM BUCCAL (18:29)
[2021-10-14 19:07] LABS: MANUAL DIFF FLAG NO
[2021-10-14 19:29] LABS: Alanine Aminotransferase 35 U/L (0-40); Albumin Level 4.6 g/dL (3.5-5.0); Alkaline Phosphatase 68 U/L (39-117); Anion Gap 15 (12-20); Aspartate Amino Transferase 24 U/L (5-37); Blood Urea Nitrogen 11 mg/dL (9-16); Calcium 9.3 mg/dL (8.4-10.2); Carbon Dioxide 23 mmol/L (22-29); Chloride 105 mmol/L (96-108); Creatinine Clr Calc Pharmacy 91.6; Estimated Glomerular Filt Rate > 60; Ethanol < 10 mg/dL; Glucose Random 144 mg/dL (60-115); Potassium 3.5 mmol/L (3.3-5.1); Sodium 139 mmol/L (135-145); Total Protein 7.1 g/dL (6.5-8.0)
[2021-10-14 19:34] LABS: Basophils Absolute Auto 0.1 X10*3/uL (0.0-0.2); Basophils Percent Auto 0.7 % (0-2); Eosinophils Absolute Auto 0.1 X10*3/uL (0.0-0.4); Eosinophils Percent Auto 0.6 % (0-4); Hematocrit 40.2 % (42.0-52.0); Hemoglobin 13.6 g/dl (14.0-18.0); Imm Gran Abs Auto 0.06 X10*3/uL (0.00-0.03); Imm Gran Pct Auto 0.7 % (0.0-0.4); Lymphocytes Absolute Auto 2.5 X10*3/uL (1.2-4.9); Lymphocytes Percent Auto 29.2 % (20-40); Mean Corpuscular HGB Conc 33.8 g/dl (31.0-36.0); Mean Corpuscular Hemoglobin 31.1 pg (27.0-33.0); Mean Corpuscular Volume 91.8 fL (80.0-98.0); Mean Platelet Volume 11.2 fL (9.4-12.4); Monocytes Absolute Auto 0.5 X10*3/uL (0.1-1.2); Monocytes Percent Auto 5.6 % (2-11); Neutrophils Absolute Auto 5.3 x10*3/uL (2.0-8.3); Neutrophils Percent Auto 63.2 % (45-73); Platelet Count 192 X10*3/uL (160-400); Red Blood Count 4.38 X10*6/uL (4.60-5.80); Red Cell Distribution Width 12.2 % (11.0-16.0); White Blood Count 8.4 X10*3/uL (4.8-10.8)
[2021-10-14] MEDS: Perphenazine 8 MG TABLET 16 MG PO (21:12)
[2021-10-14] MEDS: hydrOXYzine HCL 50 MG TABLET PO (21:12)
[2021-10-14] MEDS: Nicotine Polacrilex 2 MG GUM 4 MG BUCCAL ×2 (21:13→22:29)
[2021-10-14] MEDS: Famotidine 20 MG TABLET PO (21:13)
--- NOTE | 2021-10-15 | ECG_ITS ---
Test Reason : med clearance Blood Pressure : / mmHG Vent. Rate : 057 BPM Atrial Rate : 057 BPM P-R Int : 166 ms QRS Dur : 102 ms QT Int : 448 ms P-R-T Axes : 045 084 061 degrees QTc Int : 436 ms Sinus bradycardia Otherwise normal ECG When compared with ECG of 07-FEB-2020 08:59, Criteria for Septal infarct are no longer Present Referred By: Cece Shanks Electronically Signed By:KAMILA LEROY
[2021-10-15 00:55] VITALS: BP 121/85; PULSE 80; RESP 16; TEMP 36.3; O2SAT 98
[2021-10-15] MEDS: Nicotine Polacrilex 2 MG GUM 4 MG BUCCAL ×6 (00:57→19:49)
--- NOTE | 2021-10-15 05:51 | PC.NURSE ---
Patient slept through the night, no distress observed/reported, patient engaged well with [facility] clinician during assessment, disposition per [facility] is section 12 inpatient bed search, medication compliant, behavior non concerning, VSS, will continue to monitor.
--- NOTE | 2021-10-15 07:19 | PC.NURSE ---
patient appears to remain at rest at present respirations are even and unlabored patient appears in no distress
[2021-10-15] MEDS: Fluticasone/Vilanterol 100/25 BLST.W.DEV 1 PUFF INHALE (09:30)
[2021-10-15] MEDS: Famotidine 20 MG TABLET PO ×2 (09:31→21:37)
[2021-10-15] MEDS: Perphenazine 8 MG TABLET 16 MG PO ×3 (09:31→21:37)
[2021-10-15 09:32] VITALS: BP 128/78; PULSE 74; RESP 16; TEMP 36.8; O2SAT 97
[2021-10-15 14:46] VITALS: BP 133/67; PULSE 73; RESP 17; TEMP 35.7; O2SAT 99
[2021-10-15 18:00] VITALS: BP 107/101; PULSE 91; RESP 18; TEMP 36.3; O2SAT 96
[2021-10-15] MEDS: hydrOXYzine HCL 25 MG TABLET PO (18:18)
[2021-10-15] MEDS: Pravastatin Sodium 40 MG TABLET PO (21:37)
[2021-10-15] MEDS: Vitamin E (Dl,Tocopheryl Acet) 180 MG (400 UNIT) CAPSULE PO (21:37)
[2021-10-16 06:00] VITALS: BP 136/83; PULSE 63; RESP 20; TEMP 36.9; O2SAT 100
[2021-10-16 09:03] LABS: Estimated Average Glucose 114 mg/dL; Hemoglobin A1C 134.9429 umol/L; Hemoglobin A1c % 5.6 %
[2021-10-16 09:10] LABS: Cholesterol 173 mg/dL; HDL Cholesterol 39 mg/dL; LDL Cholesterol Calculated 93 mg/dl; Magnesium 2.1 mg/dL (1.6-2.6); Triglycerides 208 mg/dL
[2021-10-16] MEDS: Perphenazine 8 MG TABLET 16 MG PO ×3 (09:12→19:47)
[2021-10-16] MEDS: Vitamin E (Dl,Tocopheryl Acet) 180 MG (400 UNIT) CAPSULE PO ×2 (09:12→19:47)
[2021-10-16] MEDS: Famotidine 20 MG TABLET PO ×2 (09:13→19:47)
[2021-10-16] MEDS: Fluticasone/Vilanterol 100/25 BLST.W.DEV 1 PUFF INHALE (09:13)
[2021-10-16 09:34] LABS: Free T4 (Free Thyroxine) 0.88 ng/dL (0.71-1.85); Thyroid Stimulating Hormone 2.68 uIU/mL (0.32-4.0)
[2021-10-16] MEDS: Nicotine Polacrilex 2 MG GUM BUCCAL ×2 (09:34→21:07)
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
[2021-10-16 13:16] LABS: Folate 9.9 ng/mL (> or = 4.0); Vitamin B12 433 pg/mL (200-900)
[2021-10-16] MEDS: Nicotine Polacrilex 2 MG GUM 4 MG BUCCAL ×2 (13:26→16:19)
[2021-10-16] MEDS: QUEtiapine Fumarate 100 MG TABLET PO ×2 (14:16→19:47)
[2021-10-16] MEDS: Acetaminophen 325 MG TABLET 650 MG PO (17:10)
[2021-10-16 18:00] VITALS: BP 126/79; PULSE 76; RESP 16; TEMP 36.6; O2SAT 99
[2021-10-16] MEDS: Pravastatin Sodium 40 MG TABLET PO (19:48)
[2021-10-16] MEDS: hydrOXYzine HCL 50 MG TABLET PO (21:48)
[2021-10-16] MEDS: traZODone HCL 50 MG TABLET PO (23:01)
[2021-10-17] MEDS: Nicotine Polacrilex 2 MG GUM 4 MG BUCCAL ×5 (04:09→17:57)
[2021-10-17 06:00] VITALS: BP 128/76; PULSE 78; RESP 18; TEMP 36.6; O2SAT 99
[2021-10-17] MEDS: Famotidine 20 MG TABLET PO ×2 (08:47→19:50)
[2021-10-17] MEDS: Vitamin E (Dl,Tocopheryl Acet) 180 MG (400 UNIT) CAPSULE PO ×2 (08:47→19:49)
[2021-10-17] MEDS: Fluticasone/Vilanterol 100/25 BLST.W.DEV 1 PUFF INHALE (08:47)
[2021-10-17] MEDS: Perphenazine 8 MG TABLET 16 MG PO ×3 (08:47→19:49)
[2021-10-17] MEDS: QUEtiapine Fumarate 50 MG TABLET PO (14:36)
--- NOTE | 2021-10-17 14:48 | HO.PSYCHPN ---
Subjective Subjective Date of Service: 10/17/21 Reason For Visit: Schizoaffetive disorder, bipolar type Interim History: Patient remains With odd and disorganized behavior, doing Bizarre movements in the hallway, talking to himself, sometimes blurting out Irrelevant words to others as they passed by, sometimes singing to himself, making odd hand gestures. He remains pleasant and friendly on approach. He said he slept well last night. Would like Seroquel to be increased. Manager Of Transportation discussed his recent history and he says he is still hurt and sad about his father's passing. However he explained that he stopped taking both lithium and clozapine several months prior to his father's (database report writer misunderstood and thought it was following his father's ). Denies AVH and says he has never had voices. No SI or HI Mental Status Exam Mental Status Exam Narrative: Pt is alert and oriented; behavior is cooperative, friendly but odd; patient is not in distress; dressed in casual attire unkempt but with adequate hygiene; mood is described as sad...hurt and affect labile; eye contact appropriate; Speech is moderately pressured; normal volume and prosody; moderate psychomotor agitation present; thought process disorganized but can be goal directed; Thought content is on father, medication, and numerous random things; delusional thinking, some paranoia; no SI/HI. Denies AVH; internal preoccupation; Patients insight and judgment are impaired Diagnostics Vital Signs (24Hr): Vital Signs - 24 hr 10/16/21 18:00 10/17/21 06:00 Temperature 97.8 F 97.9 F Pulse Rate 76 78 Respiratory Rate 16 18 Blood Pressure 126/79 128/76 Pulse Oximetry 99 99 Oxygen Delivery Method Room Air BMI result Body Mass Index 27.5 Labs Results: 10/14/21 19:01 10/14/21 19:01 Labs: Laboratory Results - last 48 hr 10/16/21 10/16/21 10/16/21 07:56 07:56 07:56 Estimat Average Glucose 114 Hemoglobin A1c % 5.6 Magnesium 2.1 Triglycerides 208 Cholesterol 173 LDL Cholesterol, Calc 93 HDL Cholesterol 39 Vitamin B12 433 Folate 9.9 TSH 2.68 Free T4 0.88 Medications Medications Current Medications Acetaminophen (Acetaminophen 325 Mg Tablet) 650 mg PO Q6H PRN PRN Reason: Headache/Pain Mild Scale (1-3) Last Admin: 10/16/21 17:10 Dose: 650 mg Al Hydroxide/Mg Hydroxide (Magnesium Hydrox/Alum Hydrox 30 Ml Oral.Susp) 30 ml PO Q6H PRN PRN Reason: Heartburn/Nausea Albuterol Sulfate (Albuterol Sulfate 90 Mcg 8 Gm Inhaler) 2 puff INHALE RQ4H PRN PRN Reason: Shortness of Breath/Wheezing Famotidine (Famotidine 20 Mg Tablet) 20 mg PO Q12H [facility] Last Admin: 10/17/21 08:47 Dose: 20 mg Fluticasone/Vilanterol (Fluticasone/Vilanterol 100/25 Blst.W.Dev) 1 puff INHALE RDAILY [facility] Last Admin: 10/17/21 08:47 Dose: 1 puff Hydroxyzine HCl (Hydroxyzine Hcl 50 Mg Tablet) 50 mg PO TID PRN PRN Reason: anxiety Last Admin: 10/16/21 21:48 Dose: 50 mg Hydroxyzine HCl (Hydroxyzine Hcl 25 Mg Tablet) 25 mg PO Q6H PRN PRN Reason: Anxiety Last Admin: 10/15/21 18:18 Dose: 25 mg Loperamide HCl (Loperamide Hcl 2 Mg Capsule) 2 mg PO Q6H PRN PRN Reason: loose stool Magnesium Hydroxide (Milk Of Magnesia 30 Ml Oral.Susp) 30 ml PO DAILY PRN PRN Reason: Constipation Nicotine Polacrilex (Nicotine Polacrilex 2 Mg Gum) 2 mg BUCCAL QID PRN PRN Reason: Nicotine Cravings Last Admin: 10/16/21 21:07 Dose: 2 mg Nicotine Polacrilex (Nicotine Polacrilex 2 Mg Gum) 4 mg BUCCAL Q1H PRN PRN Reason: Nicotine Cravings Last Admin: 10/17/21 13:27 Dose: 4 mg Perphenazine (Perphenazine 8 Mg Tablet) 16 mg PO TID [facility] Last Admin: 10/17/21 14:36 Dose: 16 mg Pharmacy Consult (Consult Rx Perform Med Rec) 1 each MISCELLANE ONCE PRN PRN Reason: Consult order Pravastatin Sodium (Pravastatin Sodium 40 Mg Tablet) 40 mg PO BEDTIME [facility] Last Admin: 10/16/21 19:48 Dose: 40 mg Quetiapine Fumarate (Quetiapine Fumarate 200 Mg Tablet) 200 mg PO BEDTIME [facility] Quetiapine Fumarate (Quetiapine Fumarate 50 Mg Tablet) 50 mg PO BID@0900,1400 [facility] Last Admin: 10/17/21 14:36 Dose: 50 mg Trazodone HCl (Trazodone Hcl 50 Mg Tablet) 50 mg PO BEDTIME PRN PRN Reason: Insomnia Last Admin: 10/16/21 23:01 Dose: 50 mg Vitamin E (Vitamin E (Dl,Tocopheryl Acet) 180 Mg (400 Unit) Capsule) 180 mg PO BID [facility] Last Admin: 10/17/21 08:47 Dose: 180 mg Allergies Allergies Allergy/AdvReac Type Severity Reaction Status Date / Time divalproex sodium Allergy Severe PANCREATITI Verified 09/24/21 09:22 [From DEPAKOTE] S haloperidol [From Haldol] Allergy Intermediate DYSTONIC Verified 09/24/21 09:22 REACTION Assessment & Plan Assessment & Plan (1) Schizoaffective disorder: Status: Acute Code(s): F25.9 - Schizoaffective disorder, unspecified Plan Patient is a 51-year-old male with history of schizoaffective disorder who presents for increasing symptoms and med noncompliance in the face of his father's recent . Patient reports that his father this past September; he's sad about it but shared a fond memory with database report writer. Since then he stopped taking Clozaril and lithium -patient has odd behaviors, disorganized speech and is [id number] in manic due to the combined effect of dealing with father and coming off Clozaril and lithium; patient is pleasant and friendly however -patient willing to start Seroquel which he said he took decades ago and was helpful; not willing to try much else at the moment 10/17 patient remains mild to moderately manic with somewhat/bizarre behaviors, internally preoccupied; is friendly and polite otherwise. Would like Seroquel increased. Patient used to be client of [facility]; now that his father is gone he may again require such services. Social Work inquiring Plan: CV Q 15 minute checks Continue perphenazine 16 mg t.i.d. Increase to Seroquel 200 mg q.h.s.; Will continue to titrate as needed Added Seroquel 50 mg b.i.d. at not in the morning and 14:00 Will try to get collateral since patient's baseline is unclear Considering re-application for DMH/ACCS services I spent minutes with the patient and/or on the patient floor today, greater than?50% of which was spent counseling/coordinating care. Patient educated on: medication risk/benefits Informed Consent: understands Reason for contiued inpatient stay Substantial Risk for: inability to function
[2021-10-17] MEDS: Nicotine Polacrilex 2 MG GUM BUCCAL (16:09)
[2021-10-17 18:00] VITALS: BP 138/72; PULSE 73
[2021-10-17] MEDS: QUEtiapine Fumarate 200 MG TABLET PO (19:49)
[2021-10-17] MEDS: Pravastatin Sodium 40 MG TABLET PO (19:50)
[2021-10-18] MEDS: Acetaminophen 325 MG TABLET 650 MG PO ×2 (02:49→16:17)
[2021-10-18] MEDS: Nicotine Polacrilex 2 MG GUM BUCCAL ×2 (02:51→22:16)
[2021-10-18 05:47] VITALS: BP 152/84; PULSE 71; RESP 16; TEMP 36.1; O2SAT 99
[2021-10-18] MEDS: Nicotine Polacrilex 2 MG GUM 4 MG BUCCAL ×5 (06:26→20:28)
[2021-10-18] MEDS: Vitamin E (Dl,Tocopheryl Acet) 180 MG (400 UNIT) CAPSULE PO ×2 (08:18→20:28)
[2021-10-18] MEDS: QUEtiapine Fumarate 50 MG TABLET PO (08:18)
[2021-10-18] MEDS: Fluticasone/Vilanterol 100/25 BLST.W.DEV 1 PUFF INHALE (08:18)
[2021-10-18] MEDS: Perphenazine 8 MG TABLET 16 MG PO ×3 (08:18→20:28)
[2021-10-18] MEDS: Famotidine 20 MG TABLET PO ×2 (08:18→20:28)
--- NOTE | 2021-10-18 10:33 | HO.PSYCHPN ---
Subjective Subjective Date of Service: 10/18/21 Reason For Visit: Schizoaffetive disorder, bipolar type Interim History: remains manic, disorganized speech, behavior; little sleep. Has increasingly angry speech and making some violent comments...talked about kicking literary writer's shins like Aroldo Perez; when literary writer confronted this he said I rather say it then do it. Patient was initially angry at literary writer regarding a conversation yesterday about Depakote; he calm down but then started saying random unrelated words and the conversation became difficult. However he did say he wanted increase Seroquel Patient also intermittently muttering under his breath, about murdering people as he walks by peers. Also singing to himself, saying random unrelated words, sometimes to himself sometimes to others, intermittently intrusive with peers. Patient making odd hand gestures and appears internally preoccupied. Patient reports having urinary retention which he says is just in the hospital but that at home he urinates just fine.. A bladder scan revealed excessive urine in the bladder but patient refused straight calf and was able to urinate on his own. It is not clear if he is having urinary retention or if he is holding his bladder causing higher bladder scan values. He says he used to be on Flomax in the community and like to restart that. Mental Status Exam Mental Status Exam Narrative: Pt is alert and oriented; behavior is cooperative, mostly friendly but sometimes has an angry edge; patient is not in distress; dressed in casual attire unkempt but with adequate hygiene; mood is described as i'm pissed and affect labile; eye contact appropriate; Speech is moderately pressured; normal volume and prosody; moderate psychomotor agitation present; thought process disorganized but can be goal directed; Thought content is on father, medication, and numerous random things; delusional thinking, some paranoia; no SI/HI. Denies AVH; internal preoccupation; Patients insight and judgment are impaired Diagnostics Vital Signs (24Hr): Vital Signs - 24 hr 10/17/21 18:00 10/18/21 05:47 Temperature 97 F Pulse Rate 73 71 Respiratory Rate 16 Blood Pressure 138/72 152/84 H Pulse Oximetry 99 Oxygen Delivery Method Room Air BMI result Body Mass Index 27.5 Labs Results: 10/14/21 19:01 10/14/21 19:01 Labs: Laboratory Results - last 48 hr 10/16/21 07:56 Vitamin B12 433 Folate 9.9 Medications Medications Current Medications Acetaminophen (Acetaminophen 325 Mg Tablet) 650 mg PO Q6H PRN PRN Reason: Headache/Pain Mild Scale (1-3) Last Admin: 10/18/21 02:49 Dose: 650 mg Al Hydroxide/Mg Hydroxide (Magnesium Hydrox/Alum Hydrox 30 Ml Oral.Susp) 30 ml PO Q6H PRN PRN Reason: Heartburn/Nausea Albuterol Sulfate (Albuterol Sulfate 90 Mcg 8 Gm Inhaler) 2 puff INHALE RQ4H PRN PRN Reason: Shortness of Breath/Wheezing Famotidine (Famotidine 20 Mg Tablet) 20 mg PO Q12H [facility] Last Admin: 10/18/21 08:18 Dose: 20 mg Fluticasone/Vilanterol (Fluticasone/Vilanterol 100/25 Blst.W.Dev) 1 puff INHALE RDAILY [facility] Last Admin: 10/18/21 08:18 Dose: 1 puff Hydroxyzine HCl (Hydroxyzine Hcl 50 Mg Tablet) 50 mg PO TID PRN PRN Reason: anxiety Last Admin: 10/16/21 21:48 Dose: 50 mg Hydroxyzine HCl (Hydroxyzine Hcl 25 Mg Tablet) 25 mg PO Q6H PRN PRN Reason: Anxiety Last Admin: 10/15/21 18:18 Dose: 25 mg Loperamide HCl (Loperamide Hcl 2 Mg Capsule) 2 mg PO Q6H PRN PRN Reason: loose stool Magnesium Hydroxide (Milk Of Magnesia 30 Ml Oral.Susp) 30 ml PO DAILY PRN PRN Reason: Constipation Nicotine Polacrilex (Nicotine Polacrilex 2 Mg Gum) 2 mg BUCCAL QID PRN PRN Reason: Nicotine Cravings Last Admin: 10/18/21 02:51 Dose: 2 mg Nicotine Polacrilex (Nicotine Polacrilex 2 Mg Gum) 4 mg BUCCAL Q1H PRN PRN Reason: Nicotine Cravings Last Admin: 10/18/21 09:56 Dose: 4 mg Perphenazine (Perphenazine 8 Mg Tablet) 16 mg PO TID [facility] Last Admin: 10/18/21 08:18 Dose: 16 mg Pharmacy Consult (Consult Rx Perform Med Rec) 1 each MISCELLANE ONCE PRN PRN Reason: Consult order Pravastatin Sodium (Pravastatin Sodium 40 Mg Tablet) 40 mg PO BEDTIME [facility] Last Admin: 10/17/21 19:50 Dose: 40 mg Quetiapine Fumarate (Quetiapine Fumarate 400 Mg Tablet) 400 mg PO BEDTIME [facility] Quetiapine Fumarate (Quetiapine Fumarate 100 Mg Tablet) 100 mg PO BID@0900,1400 [facility] Trazodone HCl (Trazodone Hcl 50 Mg Tablet) 50 mg PO BEDTIME PRN PRN Reason: Insomnia Last Admin: 10/16/21 23:01 Dose: 50 mg Vitamin E (Vitamin E (Dl,Tocopheryl Acet) 180 Mg (400 Unit) Capsule) 180 mg PO BID [facility] Last Admin: 10/18/21 08:18 Dose: 180 mg Allergies Allergies Allergy/AdvReac Type Severity Reaction Status Date / Time divalproex sodium Allergy Severe PANCREATITI Verified 09/24/21 09:22 [From DEPAKOTE] S haloperidol [From Haldol] Allergy Intermediate DYSTONIC Verified 09/24/21 09:22 REACTION Assessment & Plan Assessment & Plan (1) Schizoaffective disorder: Status: Acute Code(s): F25.9 - Schizoaffective disorder, unspecified Plan Patient is a 51-year-old male with history of schizoaffective disorder who presents for increasing symptoms and med noncompliance in the face of his father's recent . Patient reports that his father this past September; he's sad about it but shared a fond memory with literary writer. Since then he stopped taking Clozaril and lithium -patient has odd behaviors, disorganized speech and is [id number] in manic due to the combined effect of dealing with father and coming off Clozaril and lithium; patient is pleasant and friendly however -patient willing to start Seroquel which he said he took decades ago and was helpful; not willing to try much else at the moment 10/17 patient remains mild to moderately manic with somewhat/bizarre behaviors, internally preoccupied; is friendly and polite otherwise. Would like Seroquel increased. Patient used to be client of [facility]; now that his father is gone he may again require such services. Social Work inquiring 10/18 increasing angry age to patient's dialoguing; a little more intrusive with others and confrontational but still easily redirected. Would like Flomax which he says he took as an outpatient. Not sure if patient has urinary retention or is just holding his urine as he was able to go on his own to avoid being straight cathed. Agrees to increasing Seroquel Plan: CV Q 15 minute checks Start Flomax 0.4 mg q.h.s. Continue perphenazine 16 mg t.i.d. Increase to Seroquel 400mg q.h.s.; Will continue to titrate as needed Increase daytime Seroquel to Seroquel 100 mg b.i.d. at not in the morning and 14:00 Will try to get collateral since patient's baseline is unclear Considering re-application for DMH/ACCS services I spent minutes with the patient and/or on the patient floor today, greater than?50% of which was spent counseling/coordinating care. Patient educated on: medication risk/benefits and medical condition Reason for contiued inpatient stay Substantial Risk for: inability to function
[2021-10-18] MEDS: QUEtiapine Fumarate 100 MG TABLET PO (14:29)
[2021-10-18 18:00] VITALS: BP 142/78; RESP 136; TEMP 36.6; O2SAT 99
[2021-10-18] MEDS: Tamsulosin HCL 0.4 MG CAPSULE PO (20:28)
[2021-10-18] MEDS: QUEtiapine Fumarate 400 MG TABLET PO (20:28)
[2021-10-18] MEDS: Pravastatin Sodium 40 MG TABLET PO (20:28)
[2021-10-19 06:00] VITALS: BP 122/79; PULSE 87; RESP 16; TEMP 36.6; O2SAT 99
[2021-10-19] MEDS: Nicotine Polacrilex 2 MG GUM BUCCAL (06:32)
[2021-10-19] MEDS: Acetaminophen 325 MG TABLET 650 MG PO ×2 (06:32→17:01)
[2021-10-19] MEDS: Fluticasone/Vilanterol 100/25 BLST.W.DEV 1 PUFF INHALE ×2 (08:12→18:21)
[2021-10-19] MEDS: Famotidine 20 MG TABLET PO ×2 (08:13→19:34)
[2021-10-19] MEDS: Vitamin E (Dl,Tocopheryl Acet) 180 MG (400 UNIT) CAPSULE PO ×2 (08:13→19:35)
[2021-10-19] MEDS: Perphenazine 8 MG TABLET 16 MG PO ×3 (08:13→19:35)
[2021-10-19] MEDS: QUEtiapine Fumarate 100 MG TABLET PO ×2 (08:13→14:13)
[2021-10-19] MEDS: Nicotine Polacrilex 2 MG GUM 4 MG BUCCAL ×4 (09:59→19:45)
--- NOTE | 2021-10-19 12:58 | P.PNPSI_ITS ---
Subjective Subjective Date of Service: 10/19/21 Reason For Visit: Schizoaffetive disorder, bipolar type Interim History: Patient says he slept well last night. He also said he thinks the Flomax helped and that he has been able to go to the bathroom much more easily. Patient remains disorganized, but a little less intense today and little less intrusive. Not rambling as much. Still difficult to engage in a meaningful conversation/discussion Mental Status Exam Mental Status Exam Narrative: Pt is alert and oriented; behavior is cooperative, mostly friendly but sometimes has an angry edge; patient is not in distress; dressed in casual attire unkempt but with adequate hygiene; mood is described as good and affect labile; eye contact appropriate; Speech is moderately pressured; normal volume and prosody; moderate psychomotor agitation present; thought process disorganized but can be goal directed; Thought content is on father, medication, and numerous random thi ngs; delusional thinking, some paranoia; no SI/HI. Denies AVH; internal preoccupation; Patients insight and judgment are impaired Diagnostics Vital Signs (24Hr): Vital Signs - 24 hr 10/18/21 18:00 10/19/21 06:00 Temperature 98 F 97.9 F Pulse Rate 87 Respiratory Rate 136 H 16 Blood Pressure 142/78 H 122/79 Pulse Oximetry 99 99 Oxygen Delivery Method Room Air Room Air BMI result Body Mass Index 27.5 Labs Results: 10/14/21 19:01 10/14/21 19:01 Medications Medications Current Medications Acetaminophen (Acetaminophen 325 Mg Tablet) 650 mg PO Q6H PRN PRN Reason: Headache/Pain Mild Scale (1-3) Last Admin: 10/19/21 06:32 Dose: 650 mg Al Hydroxide/Mg Hydroxide (Magnesium Hydrox/Alum Hydrox 30 Ml Oral.Susp) 30 ml PO Q6H PRN PRN Reason: Heartburn/Nausea Albuterol Sulfate (Albuterol Sulfate 90 Mcg 8 Gm Inhaler) 2 puff INHALE RQ4H PRN PRN Reason: Shortness of Breath/Wheezing Famotidine (Famotidine 20 Mg Tablet) 20 mg PO Q12H [facility] Last Admin: 10/19/21 08:13 Dose: 20 mg Fluticasone/Vilanterol (Fluticasone/Vilanterol 100/25 Blst.W.Dev) 1 puff INHALE RDAILY [facility] Last Admin: 10/19/21 08:12 Dose: 1 puff Hydroxyzine HCl (Hydroxyzine Hcl 50 Mg Tablet) 50 mg PO TID PRN PRN Reason: anxiety Last Admin: 10/16/21 21:48 Dose: 50 mg Hydroxyzine HCl (Hydroxyzine Hcl 25 Mg Tablet) 25 mg PO Q6H PRN PRN Reason: Anxiety Last Admin: 10/15/21 18:18 Dose: 25 mg Loperamide HCl (Loperamide Hcl 2 Mg Capsule) 2 mg PO Q6H PRN PRN Reason: loose stool Magnesium Hydroxide (Milk Of Magnesia 30 Ml Oral.Susp) 30 ml PO DAILY PRN PRN Reason: Constipation Nicotine Polacrilex (Nicotine Polacrilex 2 Mg Gum) 2 mg BUCCAL QID PRN PRN Reason: Nicotine Cravings Last Admin: 10/19/21 06:32 Dose: 2 mg Nicotine Polacrilex (Nicotine Polacrilex 2 Mg Gum) 4 mg BUCCAL Q1H PRN PRN Reason: Nicotine Cravings Last Admin: 10/19/21 09:59 Dose: 4 mg Perphenazine (Perphenazine 8 Mg Tablet) 16 mg PO TID [facility] Last Admin: 10/19/21 08:13 Dose: 16 mg Pharmacy Consult (Consult Rx Perform Med Rec) 1 each MISCELLANE ONCE PRN PRN Reason: Consult order Pravastatin Sodium (Pravastatin Sodium 40 Mg Tablet) 40 mg PO BEDTIME [facility] Last Admin: 10/18/21 20:28 Dose: 40 mg Quetiapine Fumarate (Quetiapine Fumarate 400 Mg Tablet) 400 mg PO BEDTIME [facility] Last Admin: 10/18/21 20:28 Dose: 400 mg Quetiapine Fumarate (Quetiapine Fumarate 100 Mg Tablet) 100 mg PO BID@0900,1400 [facility] Last Admin: 10/19/21 08:13 Dose: 100 mg Tamsulosin HCl (Tamsulosin Hcl 0.4 Mg Capsule) 0.4 mg PO BEDTIME [facility] Last Admin: 10/18/21 20:28 Dose: 0.4 mg Trazodone HCl (Trazodone Hcl 50 Mg Tablet) 50 mg PO BEDTIME PRN PRN Reason: Insomnia Last Admin: 10/16/21 23:01 Dose: 50 mg Vitamin E (Vitamin E (Dl,Tocopheryl Acet) 180 Mg (400 Unit) Capsule) 180 mg PO BID [facility] Last Admin: 10/19/21 08:13 Dose: 180 mg Allergies Allergies Allergy/AdvReac Type Severity Reaction Status Date / Time divalproex sodium Allergy Severe PANCREATITI Verified 09/24/21 09:22 [From DEPAKOTE] S haloperidol [From Haldol] Allergy Intermediate DYSTONIC Verified 09/24/21 09:22 REACTION Assessment & Plan Assessment & Plan (1) Schizoaffective disorder: Status: Acute Code(s): F25.9 - Schizoaffective disorder, unspecified Plan Patient is a 51-year-old male with history of schizoaffective disorder who presents for increasing symptoms and med noncompliance in the face of his father's recent . Patient reports that his father this past September; he's sad about it but shared a fond memory with designer/writer. Since then he stopped taking Clozaril and lithium -patient has odd behaviors, disorganized speech and is mcfz-ko-vagqzlwmwy in manic due to the combined effect of dealing with father and coming off Clozaril and lithium; patient is pleasant and friendly however -patient willing to start Seroquel which he said he took decades ago and was helpful; not willing to try much else at the moment 10/17 patient remains mild to moderately manic with somewhat/bizarre behaviors, internally preoccupied; is friendly and polite otherwise. Would like Seroquel increased. Patient used to be client of [facility]; now that his father is gone he may again require such services. Social Work inquiring 10/18 increasing angry age to patient's dialoguing; a little more intrusive with others and confrontational but still easily redirected. Would like Flomax which he says he took as an outpatient. Not sure if patient has urinary retention or is just holding his urine as he was able to go on his own to avoid being straight cathed. Agrees to increasing Seroquel 10/19 patient reports sleeping well last night; little less intense, a little less manic today. Perhaps increased Seroquel dose is taking effect. Will continue to monitor Plan: CV Q 15 minute checks Continue Flomax 0.4 mg q.h.s.; patient finds helpful Continue perphenazine 16 mg t.i.d. Continue Seroquel 400mg q.h.s.; Will continue to titrate as needed Continue daytime Seroquel to Seroquel 100 mg b.i.d. at not in the morning and 14:00; may consider including this and nighttime dose to help with adherence as an outpatient Will try to get collateral since patient's baseline is unclear Considering re-application for [facility]H/ACCS services I spent minutes with the patient and/or on the patient floor today, greater than?50% of which was spent counseling/coordinating care. Reason for contiued inpatient stay Substantial Risk for: rapid decompensation
[2021-10-19] MEDS: Milk of Magnesia 30 ML ORAL.SUSP PO (14:13)
[2021-10-19 17:11] VITALS: BP 119/78; PULSE 95; RESP 16; TEMP 36.6; O2SAT 99
[2021-10-19] MEDS: Tamsulosin HCL 0.4 MG CAPSULE PO (19:34)
[2021-10-19] MEDS: QUEtiapine Fumarate 400 MG TABLET PO (19:34)
[2021-10-19] MEDS: Pravastatin Sodium 40 MG TABLET PO (19:35)
[2021-10-20 06:00] VITALS: BP 116/68; PULSE 83; RESP 19; TEMP 36.6; O2SAT 99
[2021-10-20] MEDS: Nicotine Polacrilex 2 MG GUM 4 MG BUCCAL ×5 (06:45→21:12)
[2021-10-20] MEDS: Vitamin E (Dl,Tocopheryl Acet) 180 MG (400 UNIT) CAPSULE PO ×2 (08:16→21:12)
[2021-10-20] MEDS: Perphenazine 8 MG TABLET 16 MG PO ×3 (08:16→21:12)
[2021-10-20] MEDS: QUEtiapine Fumarate 100 MG TABLET PO ×2 (08:18→14:07)
[2021-10-20] MEDS: Famotidine 20 MG TABLET PO ×2 (08:18→21:13)
--- NOTE | 2021-10-20 10:15 | HO.PSYCHPN ---
Subjective Subjective Date of Service: 10/20/21 Reason For Visit: Schizoaffetive disorder, bipolar type Interim History: pt reports he's feeling better. He says he's not yet back to his regular self but almost.. He says he thinks he should go up a higher on Seroquel because it would take me [ginny] down a little more. Of note, patient is more organized in speech and behavior; he still will blurt out random, unrelated words, but he's been able to get back to the conversation and overall remain linear for longer time. That said, he made a comment today to staff that he should go to [place] since he had thoughts of wanting to hit a peer on unit (specific peer on unit is loud and intrusive and triggering for patient). Pt himself has not been aggressive, and family reports no hx of aggression he reports sleeping well; able to urinate and no longer constipated. Mental Status Exam Mental Status Exam Narrative: Pt is alert and oriented; behavior is cooperative, little more organized; patient is not in distress; dressed in casual attire unkemt; mood is described as good and affect labile; eye contact appropriate; Speech is no longer pressured; normal volume and prosody; mild psychomotor agitation present; thought process is more linear and for longer; Thought content is on feeling better, numerous random things; some delusional thinking; no SI/HI. Denies AVH; internal preoccupation; Patients insight and judgment are impaired but improved. Diagnostics Vital Signs (24Hr): Vital Signs - 24 hr 10/19/21 17:11 10/20/21 06:00 Temperature 97.8 F 97.8 F Pulse Rate 95 83 Respiratory Rate 16 19 Blood Pressure 119/78 116/68 Pulse Oximetry 99 99 Oxygen Delivery Method Room Air Room Air BMI result Body Mass Index 27.5 Labs Results: 10/14/21 19:01 10/14/21 19:01 Medications Medications Current Medications Acetaminophen (Acetaminophen 325 Mg Tablet) 650 mg PO Q6H PRN PRN Reason: Headache/Pain Mild Scale (1-3) Last Admin: 10/19/21 17:01 Dose: 650 mg Al Hydroxide/Mg Hydroxide (Magnesium Hydrox/Alum Hydrox 30 Ml Oral.Susp) 30 ml PO Q6H PRN PRN Reason: Heartburn/Nausea Albuterol Sulfate (Albuterol Sulfate 90 Mcg 8 Gm Inhaler) 2 puff INHALE RQ4H PRN PRN Reason: Shortness of Breath/Wheezing Famotidine (Famotidine 20 Mg Tablet) 20 mg PO Q12H [facility] Last Admin: 10/20/21 08:18 Dose: 20 mg Fluticasone/Vilanterol (Fluticasone/Vilanterol 100/25 Blst.W.Dev) 1 puff INHALE RDAILY [facility] Last Admin: 10/19/21 18:21 Dose: 1 puff Hydroxyzine HCl (Hydroxyzine Hcl 50 Mg Tablet) 50 mg PO TID PRN PRN Reason: anxiety Last Admin: 10/16/21 21:48 Dose: 50 mg Hydroxyzine HCl (Hydroxyzine Hcl 25 Mg Tablet) 25 mg PO Q6H PRN PRN Reason: Anxiety Last Admin: 10/15/21 18:18 Dose: 25 mg Loperamide HCl (Loperamide Hcl 2 Mg Capsule) 2 mg PO Q6H PRN PRN Reason: loose stool Magnesium Hydroxide (Milk Of Magnesia 30 Ml Oral.Susp) 30 ml PO DAILY PRN PRN Reason: Constipation Last Admin: 10/19/21 14:13 Dose: 30 ml Nicotine Polacrilex (Nicotine Polacrilex 2 Mg Gum) 2 mg BUCCAL QID PRN PRN Reason: Nicotine Cravings Last Admin: 10/19/21 06:32 Dose: 2 mg Nicotine Polacrilex (Nicotine Polacrilex 2 Mg Gum) 4 mg BUCCAL Q1H PRN PRN Reason: Nicotine Cravings Last Admin: 10/20/21 06:45 Dose: 4 mg Perphenazine (Perphenazine 8 Mg Tablet) 16 mg PO TID [facility] Last Admin: 10/20/21 08:16 Dose: 16 mg Pharmacy Consult (Consult Rx Perform Med Rec) 1 each MISCELLANE ONCE PRN PRN Reason: Consult order Pravastatin Sodium (Pravastatin Sodium 40 Mg Tablet) 40 mg PO BEDTIME [facility] Last Admin: 10/19/21 19:35 Dose: 40 mg Quetiapine Fumarate (Quetiapine Fumarate 400 Mg Tablet) 400 mg PO BEDTIME [facility] Last Admin: 10/19/21 19:34 Dose: 400 mg Quetiapine Fumarate (Quetiapine Fumarate 100 Mg Tablet) 100 mg PO BID@0900,1400 [facility] Last Admin: 10/20/21 08:18 Dose: 100 mg Tamsulosin HCl (Tamsulosin Hcl 0.4 Mg Capsule) 0.4 mg PO BEDTIME [facility] Last Admin: 10/19/21 19:34 Dose: 0.4 mg Trazodone HCl (Trazodone Hcl 50 Mg Tablet) 50 mg PO BEDTIME PRN PRN Reason: Insomnia Last Admin: 10/16/21 23:01 Dose: 50 mg Vitamin E (Vitamin E (Dl,Tocopheryl Acet) 180 Mg (400 Unit) Capsule) 180 mg PO BID [facility] Last Admin: 10/20/21 08:16 Dose: 180 mg Allergies Allergies Allergy/AdvReac Type Severity Reaction Status Date / Time divalproex sodium Allergy Severe PANCREATITI Verified 09/24/21 09:22 [From DEPAKOTE] S haloperidol [From Haldol] Allergy Intermediate DYSTONIC Verified 09/24/21 09:22 REACTION Assessment & Plan Assessment & Plan (1) Schizoaffective disorder: Status: Acute Code(s): F25.9 - Schizoaffective disorder, unspecified Plan Patient is a 51-year-old male with history of schizoaffective disorder who presents for increasing symptoms and med noncompliance in the face of his father's recent . Patient reports that his father this past September; he's sad about it but shared a fond memory with sign writer letterer or painter. Since then he stopped taking Clozaril and lithium -patient has odd behaviors, disorganized speech and is inwj-sh-lrmysdpjes in manic due to the combined effect of dealing with father and coming off Clozaril and lithium; patient is pleasant and friendly however -patient willing to start Seroquel which he said he took decades ago and was helpful; not willing to try much else at the moment 10/17 patient remains mild to moderately manic with somewhat/bizarre behaviors, internally preoccupied; is friendly and polite otherwise. Would like Seroquel increased. Patient used to be client of [facility]; now that his father is gone he may again require such services. Social Work inquiring 10/18 increasing angry age to patient's dialoguing; a little more intrusive with others and confrontational but still easily redirected. Would like Flomax which he says he took as an outpatient. Not sure if patient has urinary retention or is just holding his urine as he was able to go on his own to avoid being straight cathed. Agrees to increasing Seroquel 10/19 patient reports sleeping well last night; little less intense, a little less manic today. Perhaps increased Seroquel dose is taking effect. Will continue to monitor 10/20 pt seems a little more organized in both speech and behavior; will see if he can further stabilize on current Seroquel dose before raising Plan: CV Q 15 minute checks Continue Flomax 0.4 mg q.h.s.; patient finds helpful Continue perphenazine 16 mg t.i.d. Continue Seroquel 400mg q.h.s.; Will continue to titrate as needed Continue daytime Seroquel to Seroquel 100 mg b.i.d. at not in the morning and 14:00; may consider including this and nighttime dose to help with adherence as an outpatient Will try to get collateral since patient's baseline is unclear Considering re-application for DMH/ACCS services I spent minutes with the patient and/or on the patient floor today, greater than?50% of which was spent counseling/coordinating care. Patient educated on: diagnosis and medication risk/benefits Informed Consent: understands and further education needed Reason for contiued inpatient stay Substantial Risk for: rapid decompensation
[2021-10-20] MEDS: hydrOXYzine HCL 50 MG TABLET PO (11:57)
[2021-10-20] MEDS: Nicotine Polacrilex 2 MG GUM BUCCAL (16:10)
[2021-10-20 18:00] VITALS: RESP 16; TEMP 36.5
[2021-10-20] MEDS: Acetaminophen 325 MG TABLET 650 MG PO (21:12)
[2021-10-20] MEDS: Tamsulosin HCL 0.4 MG CAPSULE PO (21:13)
[2021-10-20] MEDS: Pravastatin Sodium 40 MG TABLET PO (21:13)
[2021-10-20] MEDS: QUEtiapine Fumarate 400 MG TABLET PO (21:13)
[2021-10-20] MEDS: Fluticasone/Vilanterol 100/25 BLST.W.DEV 1 PUFF INHALE (23:12)
[2021-10-21] MEDS: Nicotine Polacrilex 2 MG GUM 4 MG BUCCAL ×4 (02:47→18:14)
[2021-10-21] MEDS: Acetaminophen 325 MG TABLET 650 MG PO (03:51)
[2021-10-21] MEDS: hydrOXYzine HCL 50 MG TABLET PO ×2 (03:51→18:15)
[2021-10-21 05:23] VITALS: BP 125/70; PULSE 75; RESP 17; TEMP 36; O2SAT 97
[2021-10-21] MEDS: Fluticasone/Vilanterol 100/25 BLST.W.DEV 1 PUFF INHALE (07:52)
[2021-10-21] MEDS: QUEtiapine Fumarate 100 MG TABLET PO ×2 (07:53→14:46)
[2021-10-21] MEDS: Vitamin E (Dl,Tocopheryl Acet) 180 MG (400 UNIT) CAPSULE PO ×2 (07:53→20:08)
[2021-10-21] MEDS: Perphenazine 8 MG TABLET 16 MG PO ×3 (07:53→20:08)
[2021-10-21] MEDS: Famotidine 20 MG TABLET PO ×2 (07:53→20:08)
[2021-10-21 08:23] VITALS: BP 125/70; PULSE 75; RESP 17; TEMP 36; O2SAT 97
--- NOTE | 2021-10-21 16:51 | HO.PSYCHPN ---
Subjective Subjective Date of Service: 10/21/21 Reason For Visit: Schizoaffetive disorder, bipolar type Interim History: Patient more able to have a linear, back and forth conversation without being interrupted by random, irrelevant comments. However continues to be disorganized and start talking about inappropriate sometimes sexual things with staff, unaware of their inappropriateness. Difficult to redirect. Patient thinks that he is leveling out but is thinking he could use higher dose of Seroquel. Mental Status Exam Mental Status Exam Narrative: Pt is alert and oriented; behavior is cooperative, little more organized; patient is not in distress; dressed in casual attire unkemt; mood is described as good and affect labile; eye contact appropriate; Speech is no longer pressured; normal volume and prosody; mild psychomotor agitation present; thought process is more linear and for longer; Thought content is on feeling better, numerous random things; some delusional thinking; no SI/HI. Denies AVH; internal preoccupation; Patients insight and judgment are impaired but improved. Diagnostics Vital Signs (24Hr): Vital Signs - 24 hr 10/20/21 18:00 10/21/21 05:23 10/21/21 08:23 Temperature 97.7 F 96.8 F 96.8 F Pulse Rate 75 75 Respiratory Rate 16 17 17 Blood Pressure 125/70 125/70 Pulse Oximetry 97 97 Oxygen Delivery Method Room Air Room Air BMI result Body Mass Index 27.5 Labs Results: 10/14/21 19:01 10/14/21 19:01 Medications Medications Current Medications Acetaminophen (Acetaminophen 325 Mg Tablet) 650 mg PO Q6H PRN PRN Reason: Headache/Pain Mild Scale (1-3) Last Admin: 10/21/21 03:51 Dose: 650 mg Al Hydroxide/Mg Hydroxide (Magnesium Hydrox/Alum Hydrox 30 Ml Oral.Susp) 30 ml PO Q6H PRN PRN Reason: Heartburn/Nausea Albuterol Sulfate (Albuterol Sulfate 90 Mcg 8 Gm Inhaler) 2 puff INHALE RQ4H PRN PRN Reason: Shortness of Breath/Wheezing Famotidine (Famotidine 20 Mg Tablet) 20 mg PO Q12H [facility] Last Admin: 10/21/21 07:53 Dose: 20 mg Fluticasone/Vilanterol (Fluticasone/Vilanterol 100/25 Blst.W.Dev) 1 puff INHALE BID [facility] Hydroxyzine HCl (Hydroxyzine Hcl 50 Mg Tablet) 50 mg PO TID PRN PRN Reason: anxiety Last Admin: 10/21/21 03:51 Dose: 50 mg Hydroxyzine HCl (Hydroxyzine Hcl 25 Mg Tablet) 25 mg PO Q6H PRN PRN Reason: Anxiety Last Admin: 10/15/21 18:18 Dose: 25 mg Loperamide HCl (Loperamide Hcl 2 Mg Capsule) 2 mg PO Q6H PRN PRN Reason: loose stool Magnesium Hydroxide (Milk Of Magnesia 30 Ml Oral.Susp) 30 ml PO DAILY PRN PRN Reason: Constipation Last Admin: 10/19/21 14:13 Dose: 30 ml Nicotine Polacrilex (Nicotine Polacrilex 2 Mg Gum) 4 mg BUCCAL Q1H PRN PRN Reason: Nicotine Cravings Last Admin: 10/21/21 10:00 Dose: 4 mg Perphenazine (Perphenazine 8 Mg Tablet) 16 mg PO TID [facility] Last Admin: 10/21/21 14:46 Dose: 16 mg Pharmacy Consult (Consult Rx Perform Med Rec) 1 each MISCELLANE ONCE PRN PRN Reason: Consult order Pravastatin Sodium (Pravastatin Sodium 40 Mg Tablet) 40 mg PO BEDTIME [facility] Last Admin: 10/20/21 21:13 Dose: 40 mg Quetiapine Fumarate (Quetiapine Fumarate 100 Mg Tablet) 100 mg PO BID@0900,1400 [facility] Last Admin: 10/21/21 14:46 Dose: 100 mg Quetiapine Fumarate (Quetiapine Fumarate 100 Mg Tablet) 500 mg PO BEDTIME [facility] Tamsulosin HCl (Tamsulosin Hcl 0.4 Mg Capsule) 0.4 mg PO BEDTIME [facility] Last Admin: 10/20/21 21:13 Dose: 0.4 mg Trazodone HCl (Trazodone Hcl 50 Mg Tablet) 50 mg PO BEDTIME PRN PRN Reason: Insomnia Last Admin: 10/16/21 23:01 Dose: 50 mg Vitamin E (Vitamin E (Dl,Tocopheryl Acet) 180 Mg (400 Unit) Capsule) 180 mg PO BID [facility] Last Admin: 10/21/21 07:53 Dose: 180 mg Allergies Allergies Allergy/AdvReac Type Severity Reaction Status Date / Time divalproex sodium Allergy Severe PANCREATITI Verified 09/24/21 09:22 [From DEPAKOTE] S haloperidol [From Haldol] Allergy Intermediate DYSTONIC Verified 09/24/21 09:22 REACTION Assessment & Plan Assessment & Plan (1) Schizoaffective disorder: Status: Acute Code(s): F25.9 - Schizoaffective disorder, unspecified Plan Patient is a 51-year-old male with history of schizoaffective disorder who presents for increasing symptoms and med noncompliance in the face of his father's recent . Patient reports that his father this past September; he's sad about it but shared a fond memory with process description writer. Since then he stopped taking Clozaril and lithium -patient has odd behaviors, disorganized speech and is nure-ze-xuszrnuuus in manic due to the combined effect of dealing with father and coming off Clozaril and lithium; patient is pleasant and friendly however -patient willing to start Seroquel which he said he took decades ago and was helpful; not willing to try much else at the moment 10/17 patient remains mild to moderately manic with somewhat/bizarre behaviors, internally preoccupied; is friendly and polite otherwise. Would like Seroquel increased. Patient used to be client of [facility]; now that his father is gone he may again require such services. Social Work inquiring 10/18 increasing angry age to patient's dialoguing; a little more intrusive with others and confrontational but still easily redirected. Would like Flomax which he says he took as an outpatient. Not sure if patient has urinary retention or is just holding his urine as he was able to go on his own to avoid being straight cathed. Agrees to increasing Seroquel 10/19 patient reports sleeping well last night; little less intense, a little less manic today. Perhaps increased Seroquel dose is taking effect. Will continue to monitor 10/20 pt seems a little more organized in both speech and behavior; will see if he can further stabilize on current Seroquel dose before raising Plan: CV Q 15 minute checks Continue Flomax 0.4 mg q.h.s.; patient finds helpful Continue perphenazine 16 mg t.i.d. Increased to Seroquel 500mg q.h.s.; Will continue to titrate as needed Continue daytime Seroquel to Seroquel 100 mg b.i.d. at not in the morning and 14:00; may consider including this and nighttime dose to help with adherence as an outpatient Will try to get collateral since patient's baseline is unclear Considering re-application for [facility]H/ACCS services I spent minutes with the patient and/or on the patient floor today, greater than?50% of which was spent counseling/coordinating care. Patient educated on: diagnosis and medication risk/benefits Informed Consent: understands Reason for contiued inpatient stay Substantial Risk for: rapid decompensation
[2021-10-21 18:00] VITALS: BP 137/76; PULSE 101; RESP 16; TEMP 36.6; O2SAT 98
[2021-10-21] MEDS: QUEtiapine Fumarate 100 MG TABLET 500 MG PO (20:08)
[2021-10-21] MEDS: Pravastatin Sodium 40 MG TABLET PO (20:08)
[2021-10-21] MEDS: Tamsulosin HCL 0.4 MG CAPSULE PO (20:09)
[2021-10-22] MEDS: Acetaminophen 325 MG TABLET 650 MG PO (05:55)
[2021-10-22] MEDS: Nicotine Polacrilex 2 MG GUM 4 MG BUCCAL ×5 (05:55→18:23)
[2021-10-22] MEDS: hydrOXYzine HCL 50 MG TABLET PO ×2 (05:57→18:22)
[2021-10-22 06:00] VITALS: BP 137/77; PULSE 69; RESP 16; TEMP 36.3; O2SAT 99
[2021-10-22] MEDS: Vitamin E (Dl,Tocopheryl Acet) 180 MG (400 UNIT) CAPSULE PO ×2 (09:27→19:29)
[2021-10-22] MEDS: Perphenazine 8 MG TABLET 16 MG PO ×3 (09:27→19:29)
[2021-10-22] MEDS: QUEtiapine Fumarate 100 MG TABLET PO ×2 (09:27→14:45)
[2021-10-22] MEDS: Famotidine 20 MG TABLET PO ×2 (09:28→19:29)
[2021-10-22] MEDS: Fluticasone/Vilanterol 100/25 BLST.W.DEV 1 PUFF INHALE ×3 (09:33→21:04)
--- NOTE | 2021-10-22 16:01 | HO.PSYCHPN ---
Subjective Subjective Date of Service: 10/22/21 Reason For Visit: Schizoaffetive disorder, bipolar type Interim History: Vacillates between organized and disorganized Mental Status Exam Mental Status Exam Narrative: Pt is alert and oriented; behavior is cooperative, little more organized; patient is not in distress; dressed in casual attire unkemt; mood is described as good and affect labile; eye contact appropriate; Speech is no longer pressured; normal volume and prosody; mild psychomotor agitation present; thought process is more linear and for longer; Thought content is on feeling better, numerous random things; some delusional thinking; no SI/HI. Denies AVH; internal preoccupation; Patients insight and judgment are impaired but improved. Diagnostics Vital Signs (24Hr): Vital Signs - 24 hr 10/21/21 18:00 10/22/21 06:00 Temperature 97.8 F 97.3 F Pulse Rate 101 H 69 Respiratory Rate 16 16 Blood Pressure 137/76 137/77 Pulse Oximetry 98 99 Oxygen Delivery Method Room Air Room Air BMI result Body Mass Index 27.5 Labs Results: 10/14/21 19:01 10/14/21 19:01 Medications Medications Current Medications Acetaminophen (Acetaminophen 325 Mg Tablet) 650 mg PO Q6H PRN PRN Reason: Headache/Pain Mild Scale (1-3) Last Admin: 10/22/21 05:55 Dose: 650 mg Al Hydroxide/Mg Hydroxide (Magnesium Hydrox/Alum Hydrox 30 Ml Oral.Susp) 30 ml PO Q6H PRN PRN Reason: Heartburn/Nausea Albuterol Sulfate (Albuterol Sulfate 90 Mcg 8 Gm Inhaler) 2 puff INHALE RQ4H PRN PRN Reason: Shortness of Breath/Wheezing Famotidine (Famotidine 20 Mg Tablet) 20 mg PO Q12H [facility] Last Admin: 10/22/21 09:28 Dose: 20 mg Fluticasone/Vilanterol (Fluticasone/Vilanterol 100/25 Blst.W.Dev) 1 puff INHALE BID [facility] Last Admin: 10/22/21 09:33 Dose: 1 puff Hydroxyzine HCl (Hydroxyzine Hcl 50 Mg Tablet) 50 mg PO TID PRN PRN Reason: anxiety Last Admin: 10/22/21 05:57 Dose: 50 mg Hydroxyzine HCl (Hydroxyzine Hcl 25 Mg Tablet) 25 mg PO Q6H PRN PRN Reason: Anxiety Last Admin: 10/15/21 18:18 Dose: 25 mg Loperamide HCl (Loperamide Hcl 2 Mg Capsule) 2 mg PO Q6H PRN PRN Reason: loose stool Magnesium Hydroxide (Milk Of Magnesia 30 Ml Oral.Susp) 30 ml PO DAILY PRN PRN Reason: Constipation Last Admin: 10/19/21 14:13 Dose: 30 ml Nicotine Polacrilex (Nicotine Polacrilex 2 Mg Gum) 4 mg BUCCAL Q1H PRN PRN Reason: Nicotine Cravings Last Admin: 10/22/21 14:48 Dose: 4 mg Perphenazine (Perphenazine 8 Mg Tablet) 16 mg PO TID [facility] Last Admin: 10/22/21 14:45 Dose: 16 mg Pharmacy Consult (Consult Rx Perform Med Rec) 1 each MISCELLANE ONCE PRN PRN Reason: Consult order Pravastatin Sodium (Pravastatin Sodium 40 Mg Tablet) 40 mg PO BEDTIME [facility] Last Admin: 10/21/21 20:08 Dose: 40 mg Quetiapine Fumarate (Quetiapine Fumarate 100 Mg Tablet) 100 mg PO BID@0900,1400 [facility] Last Admin: 10/22/21 14:45 Dose: 100 mg Quetiapine Fumarate (Quetiapine Fumarate 100 Mg Tablet) 500 mg PO BEDTIME [facility] Last Admin: 10/21/21 20:08 Dose: 500 mg Tamsulosin HCl (Tamsulosin Hcl 0.4 Mg Capsule) 0.4 mg PO BEDTIME [facility] Last Admin: 10/21/21 20:09 Dose: 0.4 mg Trazodone HCl (Trazodone Hcl 50 Mg Tablet) 50 mg PO BEDTIME PRN PRN Reason: Insomnia Last Admin: 10/16/21 23:01 Dose: 50 mg Vitamin E (Vitamin E (Dl,Tocopheryl Acet) 180 Mg (400 Unit) Capsule) 180 mg PO BID [facility] Last Admin: 10/22/21 09:27 Dose: 180 mg Allergies Allergies Allergy/AdvReac Type Severity Reaction Status Date / Time divalproex sodium Allergy Severe PANCREATITI Verified 09/24/21 09:22 [From DEPAKOTE] S haloperidol [From Haldol] Allergy Intermediate DYSTONIC Verified 09/24/21 09:22 REACTION Assessment & Plan Assessment & Plan (1) Schizoaffective disorder: Status: Acute Code(s): F25.9 - Schizoaffective disorder, unspecified Plan Patient is a 51-year-old male with history of schizoaffective disorder who presents for increasing symptoms and med noncompliance in the face of his father's recent . Patient reports that his father this past September; he's sad about it but shared a fond memory with pattern chart writer. Since then he stopped taking Clozaril and lithium -patient has odd behaviors, disorganized speech and is jciq-[id number] in manic due to the combined effect of dealing with father and coming off Clozaril and lithium; patient is pleasant and friendly however -patient willing to start Seroquel which he said he took decades ago and was helpful; not willing to try much else at the moment 10/17 patient remains mild to moderately manic with somewhat/bizarre behaviors, internally preoccupied; is friendly and polite otherwise. Would like Seroquel increased. Patient used to be client of [facility]; now that his father is gone he may again require such services. Social Work inquiring 10/18 increasing angry age to patient's dialoguing; a little more intrusive with others and confrontational but still easily redirected. Would like Flomax which he says he took as an outpatient. Not sure if patient has urinary retention or is just holding his urine as he was able to go on his own to avoid being straight cathed. Agrees to increasing Seroquel 10/19 patient reports sleeping well last night; little less intense, a little less manic today. Perhaps increased Seroquel dose is taking effect. Will continue to monitor 10/20 pt seems a little more organized in both speech and behavior; will see if he can further stabilize on current Seroquel dose before raising 10/21 remains vacillating between organized/disorganized need more collateral about baseline Plan: CV Q 15 minute checks Continue Flomax 0.4 mg q.h.s.; patient finds helpful Continue perphenazine 16 mg t.i.d. Increased to Seroquel 500mg q.h.s.; Will continue to titrate as needed Continue daytime Seroquel to Seroquel 100 mg b.i.d. at not in the morning and 14:00; may consider including this and nighttime dose to help with adherence as an outpatient Will try to get collateral since patient's baseline is unclear Considering re-application for [facility] services I spent minutes with the patient and/or on the patient floor today, greater than?50% of which was spent counseling/coordinating care. Patient educated on: diagnosis and medication risk/benefits Reason for contiued inpatient stay Substantial Risk for: rapid decompensation
[2021-10-22 18:14] VITALS: BP 120/63; PULSE 85; TEMP 36.1; O2SAT 99
[2021-10-22] MEDS: Ibuprofen 600 MG TABLET PO (18:22)
[2021-10-22] MEDS: hydrOXYzine HCL 25 MG TABLET PO (18:22)
[2021-10-22] MEDS: Pravastatin Sodium 40 MG TABLET PO (19:28)
[2021-10-22] MEDS: QUEtiapine Fumarate 100 MG TABLET 500 MG PO (19:29)
[2021-10-22] MEDS: Tamsulosin HCL 0.4 MG CAPSULE PO (19:29)
[2021-10-23] MEDS: hydrOXYzine HCL 50 MG TABLET PO ×2 (04:10→16:12)
[2021-10-23] MEDS: Nicotine Polacrilex 2 MG GUM 4 MG BUCCAL ×5 (04:10→21:38)
[2021-10-23] MEDS: Ibuprofen 600 MG TABLET PO ×2 (04:10→21:38)
[2021-10-23 06:00] VITALS: BP 128/75; PULSE 72; RESP 17; TEMP 36.3; O2SAT 99
[2021-10-23 07:00] VITALS: BMI 29.2
[2021-10-23] MEDS: Famotidine 20 MG TABLET PO ×2 (08:12→20:05)
[2021-10-23] MEDS: QUEtiapine Fumarate 100 MG TABLET PO ×2 (08:12→14:05)
[2021-10-23] MEDS: Vitamin E (Dl,Tocopheryl Acet) 180 MG (400 UNIT) CAPSULE PO ×2 (08:15→20:05)
[2021-10-23] MEDS: Perphenazine 8 MG TABLET 16 MG PO ×3 (08:15→20:05)
--- NOTE | 2021-10-23 10:20 | P.PNPSI_ITS ---
Subjective Subjective Date of Service: 10/23/21 Reason For Visit: Schizoaffetive disorder, bipolar type Interim History: pt Remains With disorganized speech though it has improved Maisha says 6-09/14 but says it baseline he really hardly ever says anything unusual or disorganized Patient did not sleep last night; he says it is because his roommate had flatulence Mental Status Exam Mental Status Exam Narrative: Pt is alert and oriented; behavior is cooperative, little more organized; patient is not in distress; dressed in casual attire unkemt; mood is described as good and affect labile; eye contact appropriate; Speech is no longer pressured; normal volume and prosody; mild psychomotor agitation present; thought process is more linear and for longer; Thought content is on feeling better, numerous random things; some delusional thinking; no SI/HI. Denies AVH; internal preoccupation; Patients insight and judgment are impaired but improved. Diagnostics Vital Signs (24Hr): Vital Signs - 24 hr 10/22/21 18:14 10/23/21 06:00 Temperature 97 F 97.3 F Pulse Rate 85 72 Respiratory Rate 17 Blood Pressure 120/63 128/75 Pulse Oximetry 99 99 Oxygen Delivery Method Room Air BMI result Body Mass Index 29.2 Labs Results: 10/14/21 19:01 10/14/21 19:01 Medications Medications Current Medications Acetaminophen (Acetaminophen 325 Mg Tablet) 650 mg PO Q6H PRN PRN Reason: Headache/Pain Mild Scale (1-3) Last Admin: 10/22/21 05:55 Dose: 650 mg Al Hydroxide/Mg Hydroxide (Magnesium Hydrox/Alum Hydrox 30 Ml Oral.Susp) 30 ml PO Q6H PRN PRN Reason: Heartburn/Nausea Albuterol Sulfate (Albuterol Sulfate 90 Mcg 8 Gm Inhaler) 2 puff INHALE RQ4H PRN PRN Reason: Shortness of Breath/Wheezing Famotidine (Famotidine 20 Mg Tablet) 20 mg PO Q12H [facility] Last Admin: 10/23/21 08:12 Dose: 20 mg Fluticasone/Vilanterol (Fluticasone/Vilanterol 100/25 Blst.W.Dev) 1 puff INHALE BID [facility] Last Admin: 10/22/21 21:04 Dose: 1 puff Hydroxyzine HCl (Hydroxyzine Hcl 50 Mg Tablet) 50 mg PO TID PRN PRN Reason: anxiety Last Admin: 10/23/21 04:10 Dose: 50 mg Hydroxyzine HCl (Hydroxyzine Hcl 25 Mg Tablet) 25 mg PO Q6H PRN PRN Reason: Anxiety Last Admin: 10/22/21 18:22 Dose: 25 mg Ibuprofen (Ibuprofen 600 Mg Tablet) 600 mg PO Q8H PRN PRN Reason: Pain, Mild (Pain Scale 1-3) Last Admin: 10/23/21 04:10 Dose: 600 mg Loperamide HCl (Loperamide Hcl 2 Mg Capsule) 2 mg PO Q6H PRN PRN Reason: loose stool Magnesium Hydroxide (Milk Of Magnesia 30 Ml Oral.Susp) 30 ml PO DAILY PRN PRN Reason: Constipation Last Admin: 10/19/21 14:13 Dose: 30 ml Nicotine Polacrilex (Nicotine Polacrilex 2 Mg Gum) 4 mg BUCCAL Q1H PRN PRN Reason: Nicotine Cravings Last Admin: 10/23/21 06:55 Dose: 4 mg Perphenazine (Perphenazine 8 Mg Tablet) 16 mg PO TID [facility] Last Admin: 10/23/21 08:15 Dose: 16 mg Pharmacy Consult (Consult Rx Perform Med Rec) 1 each MISCELLANE ONCE PRN PRN Reason: Consult order Pravastatin Sodium (Pravastatin Sodium 40 Mg Tablet) 40 mg PO BEDTIME [facility] Last Admin: 10/22/21 19:28 Dose: 40 mg Quetiapine Fumarate (Quetiapine Fumarate 100 Mg Tablet) 100 mg PO BID@0900,1400 [facility] Last Admin: 10/23/21 08:12 Dose: 100 mg Quetiapine Fumarate (Quetiapine Fumarate 100 Mg Tablet) 500 mg PO BEDTIME [facility] Last Admin: 10/22/21 19:29 Dose: 500 mg Tamsulosin HCl (Tamsulosin Hcl 0.4 Mg Capsule) 0.4 mg PO BEDTIME [facility] Last Admin: 10/22/21 19:29 Dose: 0.4 mg Trazodone HCl (Trazodone Hcl 50 Mg Tablet) 50 mg PO BEDTIME PRN PRN Reason: Insomnia Last Admin: 10/16/21 23:01 Dose: 50 mg Vitamin E (Vitamin E (Dl,Tocopheryl Acet) 180 Mg (400 Unit) Capsule) 180 mg PO BID [facility] Last Admin: 10/23/21 08:15 Dose: 180 mg Allergies Allergies Allergy/AdvReac Type Severity Reaction Status Date / Time divalproex sodium Allergy Severe PANCREATITI Verified 09/24/21 09:22 [From DEPAKOTE] S haloperidol [From Haldol] Allergy Intermediate DYSTONIC Verified 09/24/21 09:22 REACTION Assessment & Plan Assessment & Plan (1) Schizoaffective disorder: Status: Acute Code(s): F25.9 - Schizoaffective disorder, unspecified Plan Patient is a 51-year-old male with history of schizoaffective disorder who presents for increasing symptoms and med noncompliance in the face of his father's recent . Patient reports that his father this past September; he's sad about it but shared a fond memory with auto service writer. Since then he stopped taking Clozaril and lithium -patient has odd behaviors, disorganized speech and is fmbu-ic-eegwmbqkum in manic due to the combined effect of dealing with father and coming off Clozaril and lithium; patient is pleasant and friendly however -patient willing to start Seroquel which he said he took decades ago and was helpful; not willing to try much else at the moment 10/17 patient remains mild to moderately manic with somewhat/bizarre behaviors, internally preoccupied; is friendly and polite otherwise. Would like Seroquel increased. Patient used to be client of [facility]; now that his father is gone he may again require such services. Social Work inquiring 10/18 increasing angry age to patient's dialoguing; a little more intrusive with others and confrontational but still easily redirected. Would like Flomax which he says he took as an outpatient. Not sure if patient has urinary retention or is just holding his urine as he was able to go on his own to avoid being straight cathed. Agrees to increasing Seroquel 10/19 patient reports sleeping well last night; little less intense, a little less manic today. Perhaps increased Seroquel dose is taking effect. Will continue to monitor 10/20 pt seems a little more organized in both speech and behavior; will see if he can further stabilize on current Seroquel dose before raising /16 remains vacillating between organized/disorganized need more collateral about baseline Plan: CV Q 15 minute checks Continue Flomax 0.4 mg q.h.s.; patient finds helpful Continue perphenazine 16 mg t.i.d. Increased to Seroquel 500mg q.h.s.; Will continue to titrate as needed Continue daytime Seroquel to Seroquel 100 mg b.i.d. at not in the morning and 14:00; may consider including this and nighttime dose to help with adherence as an outpatient Will try to get collateral since patient's baseline is unclear Considering re-application for [facility] services I spent minutes with the patient and/or on the patient floor today, greater than?50% of which was spent counseling/coordinating care. Patient educated on: diagnosis and medication risk/benefits Reason for contiued inpatient stay Substantial Risk for: rapid decompensation
[2021-10-23 18:00] VITALS: BP 119/78; PULSE 89; RESP 16; TEMP 36.5; O2SAT 99
[2021-10-23] MEDS: QUEtiapine Fumarate 100 MG TABLET 500 MG PO (20:04)
[2021-10-23] MEDS: Tamsulosin HCL 0.4 MG CAPSULE PO (20:05)
[2021-10-23] MEDS: Pravastatin Sodium 40 MG TABLET PO (20:05)
[2021-10-24] MEDS: hydrOXYzine HCL 25 MG TABLET PO (03:43)
[2021-10-24] MEDS: Nicotine Polacrilex 2 MG GUM 4 MG BUCCAL ×5 (04:50→21:53)
[2021-10-24 06:00] VITALS: BP 129/79; PULSE 97; TEMP 36.3; O2SAT 98
[2021-10-24] MEDS: Ibuprofen 600 MG TABLET PO ×2 (06:04→18:39)
[2021-10-24] MEDS: QUEtiapine Fumarate 100 MG TABLET PO ×2 (08:37→13:19)
[2021-10-24] MEDS: Famotidine 20 MG TABLET PO ×2 (08:37→19:44)
[2021-10-24] MEDS: Perphenazine 8 MG TABLET 16 MG PO ×3 (08:38→19:44)
[2021-10-24] MEDS: Vitamin E (Dl,Tocopheryl Acet) 180 MG (400 UNIT) CAPSULE PO ×2 (08:40→19:43)
[2021-10-24] MEDS: Fluticasone/Vilanterol 100/25 BLST.W.DEV 1 PUFF INHALE ×2 (09:04→10:13)
[2021-10-24] MEDS: QUEtiapine Fumarate 200 MG TABLET PO (14:40)
--- NOTE | 2021-10-24 17:01 | P.PNPSI_ITS ---
Subjective Subjective Date of Service: 10/24/21 Reason For Visit: Schizoaffetive disorder, bipolar type Interim History: Able to be organized while talking 1:1 However this does not last and he will again start talking about bizarre unrelated things. Agrees to go up on Seroquel. Again did not sleep last night he agrees to trazodone (contract writer reviewed risks/side effects include improve priaprism and patient agrees to continue with trial) Mental Status Exam Mental Status Exam Narrative: Pt is alert and oriented; behavior is cooperative, little more organized; patient is not in distress; dressed in casual attire unkemt; mood is described as good and affect labile; eye contact appropriate; Speech is no longer pressured; normal volume and prosody; mild psychomotor agitation present; thought process is more linear and for longer; Thought content is on feeling better, numerous random things; some delusional thinking; no SI/HI. Denies AVH; internal preoccupation; Patients insight and judgment are impaired but improved. Diagnostics Vital Signs (24Hr): Vital Signs - 24 hr 10/23/21 18:00 10/24/21 06:00 Temperature 97.7 F 97.3 F Pulse Rate 89 97 Respiratory Rate 16 Blood Pressure 119/78 129/79 Pulse Oximetry 99 98 Oxygen Delivery Method Room Air BMI result Body Mass Index 29.2 Labs Results: 10/14/21 19:01 10/14/21 19:01 Medications Medications Current Medications Acetaminophen (Acetaminophen 325 Mg Tablet) 650 mg PO Q6H PRN PRN Reason: Headache/Pain Mild Scale (1-3) Last Admin: 10/22/21 05:55 Dose: 650 mg Al Hydroxide/Mg Hydroxide (Magnesium Hydrox/Alum Hydrox 30 Ml Oral.Susp) 30 ml PO Q6H PRN PRN Reason: Heartburn/Nausea Albuterol Sulfate (Albuterol Sulfate 90 Mcg 8 Gm Inhaler) 2 puff INHALE RQ4H PRN PRN Reason: Shortness of Breath/Wheezing Ascorbic Acid (Ascorbic Acid 250 Mg Tablet) 250 mg PO DAILY [facility] Famotidine (Famotidine 20 Mg Tablet) 20 mg PO Q12H [facility] Last Admin: 10/24/21 08:37 Dose: 20 mg Fluticasone/Vilanterol (Fluticasone/Vilanterol 100/25 Blst.W.Dev) 1 puff INHALE RDAILY [facility] Last Admin: 10/24/21 10:13 Dose: 1 puff Hydroxyzine HCl (Hydroxyzine Hcl 50 Mg Tablet) 50 mg PO TID PRN PRN Reason: anxiety Last Admin: 10/23/21 16:12 Dose: 50 mg Hydroxyzine HCl (Hydroxyzine Hcl 25 Mg Tablet) 25 mg PO Q6H PRN PRN Reason: Anxiety Last Admin: 10/24/21 03:43 Dose: 25 mg Ibuprofen (Ibuprofen 600 Mg Tablet) 600 mg PO Q8H PRN PRN Reason: Pain, Mild (Pain Scale 1-3) Last Admin: 10/24/21 06:04 Dose: 600 mg Loperamide HCl (Loperamide Hcl 2 Mg Capsule) 2 mg PO Q6H PRN PRN Reason: loose stool Magnesium Hydroxide (Milk Of Magnesia 30 Ml Oral.Susp) 30 ml PO DAILY PRN PRN Reason: Constipation Last Admin: 10/19/21 14:13 Dose: 30 ml Nicotine Polacrilex (Nicotine Polacrilex 2 Mg Gum) 4 mg BUCCAL Q1H PRN PRN Reason: Nicotine Cravings Last Admin: 10/24/21 13:23 Dose: 4 mg Perphenazine (Perphenazine 8 Mg Tablet) 16 mg PO TID [facility] Last Admin: 10/24/21 14:40 Dose: 16 mg Pharmacy Consult (Consult Rx Perform Med Rec) 1 each MISCELLANE ONCE PRN PRN Reason: Consult order Pravastatin Sodium (Pravastatin Sodium 40 Mg Tablet) 40 mg PO BEDTIME [facility] Last Admin: 10/23/21 20:05 Dose: 40 mg Quetiapine Fumarate (Quetiapine Fumarate 300 Mg Tablet) 600 mg PO BEDTIME [facility] Quetiapine Fumarate (Quetiapine Fumarate 200 Mg Tablet) 200 mg PO BID@0900,1400 [facility] Last Admin: 10/24/21 14:40 Dose: 200 mg Tamsulosin HCl (Tamsulosin Hcl 0.4 Mg Capsule) 0.4 mg PO BEDTIME [facility] Last Admin: 10/23/21 20:05 Dose: 0.4 mg Trazodone HCl (Trazodone Hcl 50 Mg Tablet) 50 mg PO BEDTIME [facility] Vitamin E (Vitamin E (Dl,Tocopheryl Acet) 180 Mg (400 Unit) Capsule) 180 mg PO BID [facility] Last Admin: 10/24/21 08:40 Dose: 180 mg Allergies Allergies Allergy/AdvReac Type Severity Reaction Status Date / Time divalproex sodium Allergy Severe PANCREATITI Verified 09/24/21 09:22 [From DEPAKOTE] S haloperidol [From Haldol] Allergy Intermediate DYSTONIC Verified 09/24/21 09:22 REACTION Assessment & Plan Assessment & Plan (1) Schizoaffective disorder: Status: Acute Code(s): F25.9 - Schizoaffective disorder, unspecified Plan Patient is a 51-year-old male with history of schizoaffective disorder who presents for increasing symptoms and med noncompliance in the face of his father's recent . Patient reports that his father this past September; he's sad about it but shared a fond memory with contract writer. Since then he stopped taking Clozaril and lithium -patient has odd behaviors, disorganized speech and is [id number] in manic due to the combined effect of dealing with father and coming off Clozaril and lithium; patient is pleasant and friendly however -patient willing to start Seroquel which he said he took decades ago and was helpful; not willing to try much else at the moment 10/17 patient remains mild to moderately manic with somewhat/bizarre behaviors, internally preoccupied; is friendly and polite otherwise. Would like Seroquel increased. Patient used to be client of [facility]; now that his father is gone he may again require such services. Social Work inquiring 10/18 increasing angry age to patient's dialoguing; a little more intrusive with others and confrontational but still easily redirected. Would like Flomax which he says he took as an outpatient. Not sure if patient has urinary retention or is just holding his urine as he was able to go on his own to avoid being straight cathed. Agrees to increasing Seroquel 10/19 patient reports sleeping well last night; little less intense, a little less manic today. Perhaps increased Seroquel dose is taking effect. Will continue to monitor 10/20 pt seems a little more organized in both speech and behavior; will see if he can further stabilize on current Seroquel dose before raising 10/21 remains vacillating between organized/disorganized need more collateral about baseline 10/22 agrees to go up on Seroquel; He is already at a high dose of perphenazine; if patient does not further stabilize and go back to sleeping will have to consider another medication Plan: CV Q 15 minute checks Continue Flomax 0.4 mg q.h.s.; patient finds helpful Continue perphenazine 16 mg t.i.d. Increased to Seroquel 200mg BID 0900/1400 and 400mg q.h.s.; start trazodone 50mg qhs scheduled Continue daytime Seroquel to Seroquel 100 mg b.i.d. at not in the morning and 14:00; may consider including this and nighttime dose to help with adherence as an outpatient Will try to get collateral since patient's baseline is unclear Considering re-application for [facility] services I spent minutes with the patient and/or on the patient floor today, greater than?50% of which was spent counseling/coordinating care. Patient educated on: diagnosis and medication risk/benefits Informed Consent: understands Reason for contiued inpatient stay Substantial Risk for: rapid decompensation
[2021-10-24 18:00] VITALS: BP 132/78; PULSE 89; RESP 16; TEMP 36.5; O2SAT 99
[2021-10-24] MEDS: Milk of Magnesia 30 ML ORAL.SUSP PO (19:43)
[2021-10-24] MEDS: Tamsulosin HCL 0.4 MG CAPSULE PO (19:43)
[2021-10-24] MEDS: Pravastatin Sodium 40 MG TABLET PO (19:43)
[2021-10-24] MEDS: QUEtiapine Fumarate 400 MG TABLET PO (19:44)
[2021-10-24] MEDS: traZODone HCL 50 MG TABLET PO ×2 (19:44→23:37)
[2021-10-24] MEDS: hydrOXYzine HCL 50 MG TABLET PO (23:37)
[2021-10-25] MEDS: Nicotine Polacrilex 2 MG GUM 4 MG BUCCAL ×5 (04:12→21:53)
[2021-10-25 04:47] VITALS: BP 127/72; PULSE 87; RESP 16; TEMP 36.1; O2SAT 100
[2021-10-25] MEDS: Fluticasone/Vilanterol 100/25 BLST.W.DEV 1 PUFF INHALE ×2 (08:14→08:23)
[2021-10-25] MEDS: Vitamin E (Dl,Tocopheryl Acet) 180 MG (400 UNIT) CAPSULE PO ×2 (08:15→21:48)
[2021-10-25] MEDS: Ascorbic Acid 250 MG TABLET PO (08:15)
[2021-10-25] MEDS: Perphenazine 8 MG TABLET 16 MG PO ×3 (08:16→21:48)
[2021-10-25] MEDS: Famotidine 20 MG TABLET PO ×2 (08:17→21:48)
[2021-10-25] MEDS: QUEtiapine Fumarate 200 MG TABLET PO ×2 (08:18→14:13)
[2021-10-25 17:07] VITALS: BP 127/64; PULSE 74; RESP 18; TEMP 36.7; O2SAT 98
[2021-10-25] MEDS: hydrOXYzine HCL 50 MG TABLET PO (18:49)
[2021-10-25] MEDS: Ibuprofen 600 MG TABLET PO (18:49)
--- NOTE | 2021-10-25 20:42 | HO.PSYCHPN ---
Subjective Subjective Date of Service: 10/25/21 Reason For Visit: Schizoaffetive disorder, bipolar type Interim History: Patient hardly slept last night. He said he had 3 bad dreams. He is not sure if it is due to the trazodone but he is willing to continue it. [employer] Egg Gatherer discussed the potential need to restart clozapine but maybe just at a low dose. Patient completely refuses and says he rather add Thorazine if needed. Both agree to continue on Seroquel for now and will pursue helping patient get sleep. Mental Status Exam Mental Status Exam Narrative: Pt is alert and oriented; behavior is cooperative, more organized but can become bizarre as well; patient is not in distress; dressed in casual attire unkempt; mood is described as good and affect labile; eye contact appropriate; Speech is no longer pressured; normal volume and prosody; mild psychomotor agitation present; thought process is more linear and for longer; Thought content is on feeling better, numerous random things; some delusional thinking; no SI/HI. Denies AVH; internal preoccupation; Patients insight and judgment are impaired but improved. Diagnostics Vital Signs (24Hr): Vital Signs - 24 hr 10/25/21 04:47 10/25/21 17:07 Temperature 97 F 98.0 F Pulse Rate 87 74 Respiratory Rate 16 18 Blood Pressure 127/72 127/64 Pulse Oximetry 100 98 Oxygen Delivery Method Room Air Room Air BMI result Body Mass Index 29.2 Labs Results: 10/14/21 19:01 10/14/21 19:01 Medications Medications Current Medications Acetaminophen (Acetaminophen 325 Mg Tablet) 650 mg PO Q6H PRN PRN Reason: Headache/Pain Mild Scale (1-3) Last Admin: 10/22/21 05:55 Dose: 650 mg Al Hydroxide/Mg Hydroxide (Magnesium Hydrox/Alum Hydrox 30 Ml Oral.Susp) 30 ml PO Q6H PRN PRN Reason: Heartburn/Nausea Albuterol Sulfate (Albuterol Sulfate 90 Mcg 8 Gm Inhaler) 2 puff INHALE RQ4H PRN PRN Reason: Shortness of Breath/Wheezing Ascorbic Acid (Ascorbic Acid 250 Mg Tablet) 250 mg PO DAILY [facility] Last Admin: 10/25/21 08:15 Dose: 250 mg Famotidine (Famotidine 20 Mg Tablet) 20 mg PO Q12H [facility] Last Admin: 10/25/21 08:17 Dose: 20 mg Fluticasone/Vilanterol (Fluticasone/Vilanterol 100/25 Blst.W.Dev) 1 puff INHALE RDAILY [facility] Last Admin: 10/25/21 08:23 Dose: 1 puff Hydroxyzine HCl (Hydroxyzine Hcl 50 Mg Tablet) 50 mg PO TID PRN PRN Reason: anxiety Last Admin: 10/25/21 18:49 Dose: 50 mg Hydroxyzine HCl (Hydroxyzine Hcl 25 Mg Tablet) 25 mg PO Q6H PRN PRN Reason: Anxiety Last Admin: 10/24/21 03:43 Dose: 25 mg Ibuprofen (Ibuprofen 600 Mg Tablet) 600 mg PO Q8H PRN PRN Reason: Pain, Mild (Pain Scale 1-3) Last Admin: 10/25/21 18:49 Dose: 600 mg Loperamide HCl (Loperamide Hcl 2 Mg Capsule) 2 mg PO Q6H PRN PRN Reason: loose stool Magnesium Hydroxide (Milk Of Magnesia 30 Ml Oral.Susp) 30 ml PO DAILY PRN PRN Reason: Constipation Last Admin: 10/24/21 19:43 Dose: 30 ml Nicotine Polacrilex (Nicotine Polacrilex 2 Mg Gum) 4 mg BUCCAL Q1H PRN PRN Reason: Nicotine Cravings Last Admin: 10/25/21 18:49 Dose: 4 mg Perphenazine (Perphenazine 8 Mg Tablet) 16 mg PO TID [facility] Last Admin: 10/25/21 14:13 Dose: 16 mg Pharmacy Consult (Consult Rx Perform Med Rec) 1 each MISCELLANE ONCE PRN PRN Reason: Consult order Pravastatin Sodium (Pravastatin Sodium 40 Mg Tablet) 40 mg PO BEDTIME [facility] Last Admin: 10/24/21 19:43 Dose: 40 mg Quetiapine Fumarate (Quetiapine Fumarate 200 Mg Tablet) 200 mg PO BID@0900,1400 [facility] Last Admin: 10/25/21 14:13 Dose: 200 mg Quetiapine Fumarate (Quetiapine Fumarate 400 Mg Tablet) 400 mg PO BEDTIME [facility] Last Admin: 10/24/21 19:44 Dose: 400 mg Tamsulosin HCl (Tamsulosin Hcl 0.4 Mg Capsule) 0.4 mg PO BEDTIME [facility] Last Admin: 10/24/21 19:43 Dose: 0.4 mg Trazodone HCl (Trazodone Hcl 50 Mg Tablet) 50 mg PO BEDTIME [facility] Last Admin: 10/24/21 23:37 Dose: 50 mg Vitamin E (Vitamin E (Dl,Tocopheryl Acet) 180 Mg (400 Unit) Capsule) 180 mg PO BID [facility] Last Admin: 10/25/21 08:15 Dose: 180 mg Allergies Allergies Allergy/AdvReac Type Severity Reaction Status Date / Time divalproex sodium Allergy Severe PANCREATITI Verified 09/24/21 09:22 [From DEPAKOTE] S haloperidol [From Haldol] Allergy Intermediate DYSTONIC Verified 09/24/21 09:22 REACTION Assessment & Plan Assessment & Plan (1) Schizoaffective disorder: Status: Acute Code(s): F25.9 - Schizoaffective disorder, unspecified Plan Patient is a 51-year-old male with history of schizoaffective disorder who presents for increasing symptoms and med noncompliance in the face of his father's recent . Patient reports that his father this past September; he's sad about it but shared a fond memory with commercial loan underwriter. Since then he stopped taking Clozaril and lithium -patient has odd behaviors, disorganized speech and is [id number] in manic due to the combined effect of dealing with father and coming off Clozaril and lithium; patient is pleasant and friendly however -patient willing to start Seroquel which he said he took decades ago and was helpful; not willing to try much else at the moment 10/17 patient remains mild to moderately manic with somewhat/bizarre behaviors, internally preoccupied; is friendly and polite otherwise. Would like Seroquel increased. Patient used to be client of [facility]; now that his father is gone he may again require such services. Social Work inquiring 10/18 increasing angry age to patient's dialoguing; a little more intrusive with others and confrontational but still easily redirected. Would like Flomax which he says he took as an outpatient. Not sure if patient has urinary retention or is just holding his urine as he was able to go on his own to avoid being straight cathed. Agrees to increasing Seroquel 10/19 patient reports sleeping well last night; little less intense, a little less manic today. Perhaps increased Seroquel dose is taking effect. Will continue to monitor 10/20 pt seems a little more organized in both speech and behavior; will see if he can further stabilize on current Seroquel dose before raising 10/21 remains vacillating between organized/disorganized need more collateral about baseline 10/22 agrees to go up on Seroquel; He is already at a high dose of perphenazine; if patient does not further stabilize and go back to sleeping will have to consider another medication 10/25 Not sleeping; does not want to get back on clozapine even at a very low dose. Says prefers Thorazine if needed. Still disorganized with speech and behavior though less manicky than on admission Plan: CV Q 15 minute checks Continue Flomax 0.4 mg q.h.s.; patient finds helpful Continue perphenazine 16 mg t.i.d. ContinueSeroquel 200mg BID 0900/1400 and 400mg q.h.s.; Continue trazodone 50mg qhs scheduled Will continue to use collateral Regarding patient's baseline re-application for DMH/ACCS services I spent minutes with the patient and/or on the patient floor today, greater than?50% of which was spent counseling/coordinating care. Patient educated on: diagnosis and medication risk/benefits Informed Consent: understands Reason for contiued inpatient stay Substantial Risk for: inability to function and rapid decompensation
[2021-10-25] MEDS: Tamsulosin HCL 0.4 MG CAPSULE PO (21:48)
[2021-10-25] MEDS: traZODone HCL 50 MG TABLET PO (21:48)
[2021-10-25] MEDS: Pravastatin Sodium 40 MG TABLET PO (21:48)
[2021-10-25] MEDS: QUEtiapine Fumarate 400 MG TABLET PO (21:48)
[2021-10-26] MEDS: hydrOXYzine HCL 25 MG TABLET PO (03:34)
[2021-10-26] MEDS: Ibuprofen 600 MG TABLET PO ×2 (03:34→18:34)
[2021-10-26] MEDS: Nicotine Polacrilex 2 MG GUM 4 MG BUCCAL ×5 (03:35→20:42)
[2021-10-26 05:35] VITALS: BP 140/76; PULSE 70; RESP 16; TEMP 36.2; O2SAT 98
[2021-10-26] MEDS: Vitamin E (Dl,Tocopheryl Acet) 180 MG (400 UNIT) CAPSULE PO ×2 (08:12→20:38)
[2021-10-26] MEDS: Fluticasone/Vilanterol 100/25 BLST.W.DEV 1 PUFF INHALE (08:12)
[2021-10-26] MEDS: Perphenazine 8 MG TABLET 16 MG PO ×3 (08:12→20:38)
[2021-10-26] MEDS: Famotidine 20 MG TABLET PO ×2 (08:13→20:37)
[2021-10-26] MEDS: QUEtiapine Fumarate 200 MG TABLET PO ×2 (08:13→14:04)
[2021-10-26] MEDS: Ascorbic Acid 250 MG TABLET PO (08:13)
--- NOTE | 2021-10-26 14:03 | P.PNPSI_ITS ---
Subjective Subjective Date of Service: 10/26/21 Reason For Visit: Schizoaffetive disorder, bipolar type Interim History: Patient again did not sleep much. He says he did Sleep, but staff says Hardly so. Patient a little more edgy today, accusing abstract writer of lying about something and raising his voice that lying is wrong. A little difficult to redirect but was able to back off. Patient agrees to increased dose of trazodone. Mild tongue fasciculation Mental Status Exam Mental Status Exam Narrative: Pt is alert and oriented; behavior is cooperative but a little more irritable, edgy, little more disorganized; patient is not in distress; dressed in casual attire, unkempt; mood is described as good and affect labile; eye contact A little intense; Speech is a little pressured; normal volume and prosody; mild psychomotor agitation present; thought process is more linear and for longer; Thought content is on feeling better, numerous random things; some delusional t hinking; no SI/HI. Denies AVH; internal preoccupation; Patients insight and judgment are impaired but improved. Diagnostics Vital Signs (24Hr): Vital Signs - 24 hr 10/25/21 17:07 10/26/21 05:35 Temperature 98.0 F 97.2 F Pulse Rate 74 70 Respiratory Rate 18 16 Blood Pressure 127/64 140/76 H Pulse Oximetry 98 98 Oxygen Delivery Method Room Air Room Air BMI result Body Mass Index 29.2 Labs Results: 10/14/21 19:01 10/14/21 19:01 Medications Medications Current Medications Acetaminophen (Acetaminophen 325 Mg Tablet) 650 mg PO Q6H PRN PRN Reason: Headache/Pain Mild Scale (1-3) Last Admin: 10/22/21 05:55 Dose: 650 mg Al Hydroxide/Mg Hydroxide (Magnesium Hydrox/Alum Hydrox 30 Ml Oral.Susp) 30 ml PO Q6H PRN PRN Reason: Heartburn/Nausea Albuterol Sulfate (Albuterol Sulfate 90 Mcg 8 Gm Inhaler) 2 puff INHALE RQ4H PRN PRN Reason: Shortness of Breath/Wheezing Ascorbic Acid (Ascorbic Acid 250 Mg Tablet) 250 mg PO DAILY [facility] Last Admin: 10/26/21 08:13 Dose: 250 mg Famotidine (Famotidine 20 Mg Tablet) 20 mg PO Q12H [facility] Last Admin: 10/26/21 08:13 Dose: 20 mg Fluticasone/Vilanterol (Fluticasone/Vilanterol 100/25 Blst.W.Dev) 1 puff INHALE RDAILY [facility] Last Admin: 10/26/21 08:12 Dose: 1 puff Hydroxyzine HCl (Hydroxyzine Hcl 50 Mg Tablet) 50 mg PO TID PRN PRN Reason: anxiety Last Admin: 10/25/21 18:49 Dose: 50 mg Hydroxyzine HCl (Hydroxyzine Hcl 25 Mg Tablet) 25 mg PO Q6H PRN PRN Reason: Anxiety Last Admin: 10/26/21 03:34 Dose: 25 mg Ibuprofen (Ibuprofen 600 Mg Tablet) 600 mg PO Q8H PRN PRN Reason: Pain, Mild (Pain Scale 1-3) Last Admin: 10/26/21 03:34 Dose: 600 mg Loperamide HCl (Loperamide Hcl 2 Mg Capsule) 2 mg PO Q6H PRN PRN Reason: loose stool Magnesium Hydroxide (Milk Of Magnesia 30 Ml Oral.Susp) 30 ml PO DAILY PRN PRN Reason: Constipation Last Admin: 10/24/21 19:43 Dose: 30 ml Nicotine Polacrilex (Nicotine Polacrilex 2 Mg Gum) 4 mg BUCCAL Q1H PRN PRN Reason: Nicotine Cravings Last Admin: 10/26/21 08:13 Dose: 4 mg Perphenazine (Perphenazine 8 Mg Tablet) 16 mg PO TID [facility] Last Admin: 10/26/21 08:12 Dose: 16 mg Pharmacy Consult (Consult Rx Perform Med Rec) 1 each MISCELLANE ONCE PRN PRN Reason: Consult order Pravastatin Sodium (Pravastatin Sodium 40 Mg Tablet) 40 mg PO BEDTIME [facility] Last Admin: 10/25/21 21:48 Dose: 40 mg Quetiapine Fumarate (Quetiapine Fumarate 200 Mg Tablet) 200 mg PO BID@0900,1400 [facility] Last Admin: 10/26/21 08:13 Dose: 200 mg Quetiapine Fumarate (Quetiapine Fumarate 400 Mg Tablet) 400 mg PO BEDTIME [facility] Last Admin: 10/25/21 21:48 Dose: 400 mg Tamsulosin HCl (Tamsulosin Hcl 0.4 Mg Capsule) 0.4 mg PO BEDTIME [facility] Last Admin: 10/25/21 21:48 Dose: 0.4 mg Trazodone HCl (Trazodone Hcl 100 Mg Tablet) 100 mg PO BEDTIME [facility] Trazodone HCl (Trazodone Hcl 50 Mg Tablet) 50 mg PO BEDTIME PRN PRN Reason: continued insomnia Vitamin E (Vitamin E (Dl,Tocopheryl Acet) 180 Mg (400 Unit) Capsule) 180 mg PO BID [facility] Last Admin: 10/26/21 08:12 Dose: 180 mg Allergies Allergies Allergy/AdvReac Type Severity Reaction Status Date / Time divalproex sodium Allergy Severe PANCREATITI Verified 09/24/21 09:22 [From DEPAKOTE] S haloperidol [From Haldol] Allergy Intermediate DYSTONIC Verified 09/24/21 09:22 REACTION Assessment & Plan Assessment & Plan (1) Schizoaffective disorder: Status: Acute Code(s): F25.9 - Schizoaffective disorder, unspecified Plan Patient is a 51-year-old male with history of schizoaffective disorder who p resents for increasing symptoms and med noncompliance in the face of his father's recent . Patient reports that his father this past September; he's sad about it but shared a fond memory with abstract writer. Since then he stopped taking Clozaril and lithium -patient has odd behaviors, disorganized speech and is [id number] in manic due to the combined effect of dealing with father and coming off Clozaril and lithium; patient is pleasant and friendly however -patient willing to start Seroquel which he said he took decades ago and was helpful; not willing to try much else at the moment 10/17 patient remains mild to moderately manic with somewhat/bizarre behaviors, internally preoccupied; is friendly and polite otherwise. Would like Seroquel increased. Patient used to be client of [facility]; now that his father is gone he may again require such services. Social Work inquiring 10/18 increasing angry age to patient's dialoguing; a little more intrusive with others and confrontational but still easily redirected. Would like Flomax which he says he took as an outpatient. Not sure if patient has urinary retention or is just holding his urine as he was able to go on his own to avoid being straight cathed. Agrees to increasing Seroquel 10/19 patient reports sleeping well last night; little less intense, a little less manic today. Perhaps increased Seroquel dose is taking effect. Will continue to monitor 10/20 pt seems a little more organized in both speech and behavior; will see if he can further stabilize on current Seroquel dose before raising 10/21 remains vacillating between organized/disorganized need more collateral about baseline 10/22 agrees to go up on Seroquel; He is already at a high dose of perphenazine; if patient does not further stabilize and go back to sleeping will have to consider another medication 10/25 Not sleeping; does not want to get back on clozapine even at a very low dose. Says prefers Thorazine if needed. Still disorganized with speech and b ehavior though less manicky than on admission 11/26 again not sleeping; patient a little more edgy and irritable today. Will try to help patient sleep with increased trazodone; hoping not to have to add another antipsychotic Plan: CV Q 15 minute checks Continue Flomax 0.4 mg q.h.s.; patient finds helpful Continue perphenazine 16 mg t.i.d. Continue Seroquel 200mg BID 0900/1400 and 400mg q.h.s.; INCREASED TO trazodone 100mg qhs scheduled with 50mg prn Will continue to use collateral Regarding patient's baseline re-application for DMH/ACCS services I spent minutes with the patient and/or on the patient floor today, greater than?50% of which was spent counseling/coordinating care. Patient educated on: diagnosis and medication risk/benefits Informed Consent: understands Reason for contiued inpatient stay Substantial Risk for: inability to function and rapid decompensation
[2021-10-26 15:49] VITALS: BP 127/80; PULSE 78; RESP 16; TEMP 36.7; O2SAT 96
[2021-10-26] MEDS: Tamsulosin HCL 0.4 MG CAPSULE PO (20:37)
[2021-10-26] MEDS: Pravastatin Sodium 40 MG TABLET PO (20:37)
[2021-10-26] MEDS: QUEtiapine Fumarate 400 MG TABLET PO (20:37)
[2021-10-26] MEDS: traZODone HCL 100 MG TABLET PO (20:38)
[2021-10-27] MEDS: hydrOXYzine HCL 25 MG TABLET PO ×2 (00:04→16:19)
[2021-10-27] MEDS: traZODone HCL 50 MG TABLET PO (00:30)
[2021-10-27 06:00] VITALS: BP 139/82; PULSE 67; RESP 18; TEMP 36; O2SAT 96
[2021-10-27] MEDS: Vitamin E (Dl,Tocopheryl Acet) 180 MG (400 UNIT) CAPSULE PO ×2 (08:38→21:43)
[2021-10-27] MEDS: Famotidine 20 MG TABLET PO ×2 (08:38→21:41)
[2021-10-27] MEDS: QUEtiapine Fumarate 200 MG TABLET PO ×2 (08:38→14:12)
[2021-10-27] MEDS: Ascorbic Acid 250 MG TABLET PO (08:38)
[2021-10-27] MEDS: Perphenazine 8 MG TABLET 16 MG PO ×3 (08:38→21:43)
[2021-10-27] MEDS: Fluticasone/Vilanterol 100/25 BLST.W.DEV 1 PUFF INHALE (08:41)
[2021-10-27] MEDS: Nicotine Polacrilex 2 MG GUM 4 MG BUCCAL ×4 (09:21→22:41)
[2021-10-27] MEDS: Ibuprofen 600 MG TABLET PO ×2 (09:26→19:37)
--- NOTE | 2021-10-27 10:24 | P.PNPSI_ITS ---
Subjective Subjective Date of Service: 10/27/21 Reason For Visit: Schizoaffetive disorder, bipolar type Interim History: pt says he slept last night, first time in a while. He says he still feels some amount of being revved up; race and sports book writer discussed meds and it was agreed to see if increased sleep would help resolve symptoms before starting another mood stabilizer. Remains with odd behavior, punching air. Told race and sports book writer I was doing this and demonstrated to race and sports book writer how he was hitting his palm on the corner of the wall... nurse said i should stop... pt asked if his hand was ok and why it hurt, but accepted writers explanation that it was because he was hitting in on corner. Mental Status Exam Mental Status Exam Narrative: Pt is alert and oriented; behavior is cooperative but a little irritable, little more disorganized; patient is not in distress; dressed in casual attire, unkempt; mood is described as good and affect labile; eye contact A little intense; Speech is a little pressured; normal volume and prosody; mild psychomotor agitation present; thought process is more linear and for longer; Thought content is on feeling better, numerous random things; some delusional thinking; no SI/HI. Denies AVH; internal preoccupation; Patients insight and judgment are impaired but improved. Diagnostics Vital Signs (24Hr): Vital Signs - 24 hr 10/26/21 15:49 10/27/21 06:00 Temperature 98.1 F 96.8 F Pulse Rate 78 67 Respiratory Rate 16 18 Blood Pressure 127/80 139/82 Pulse Oximetry 96 96 Oxygen Delivery Method Room Air Room Air BMI result Body Mass Index 29.2 Labs Results: 10/14/21 19:01 10/14/21 19:01 Medications Medications Current Medications Acetaminophen (Acetaminophen 325 Mg Tablet) 650 mg PO Q6H PRN PRN Reason: Headache/Pain Mild Scale (1-3) Last Admin: 10/22/21 05:55 Dose: 650 mg Al Hydroxide/Mg Hydroxide (Magnesium Hydrox/Alum Hydrox 30 Ml Oral.Susp) 30 ml PO Q6H PRN PRN Reason: Heartburn/Nausea Albuterol Sulfate (Albuterol Sulfate 90 Mcg 8 Gm Inhaler) 2 puff INHALE RQ4H PRN PRN Reason: Shortness of Breath/Wheezing Ascorbic Acid (Ascorbic Acid 250 Mg Tablet) 250 mg PO DAILY [facility] Last Admin: 10/27/21 08:38 Dose: 250 mg Famotidine (Famotidine 20 Mg Tablet) 20 mg PO Q12H [facility] Last Admin: 10/27/21 08:38 Dose: 20 mg Fluticasone/Vilanterol (Fluticasone/Vilanterol 100/25 Blst.W.Dev) 1 puff INHALE RDAILY [facility] Last Admin: 10/27/21 08:41 Dose: 1 puff Hydroxyzine HCl (Hydroxyzine Hcl 50 Mg Tablet) 50 mg PO TID PRN PRN Reason: anxiety Last Admin: 10/25/21 18:49 Dose: 50 mg Hydroxyzine HCl (Hydroxyzine Hcl 25 Mg Tablet) 25 mg PO Q6H PRN PRN Reason: Anxiety Last Admin: 10/27/21 00:04 Dose: 25 mg Ibuprofen (Ibuprofen 600 Mg Tablet) 600 mg PO Q8H PRN PRN Reason: Pain, Mild (Pain Scale 1-3) Last Admin: 10/27/21 09:26 Dose: 600 mg Loperamide HCl (Loperamide Hcl 2 Mg Capsule) 2 mg PO Q6H PRN PRN Reason: loose stool Magnesium Hydroxide (Milk Of Magnesia 30 Ml Oral.Susp) 30 ml PO DAILY PRN PRN Reason: Constipation Last Admin: 10/24/21 19:43 Dose: 30 ml Nicotine Polacrilex (Nicotine Polacrilex 2 Mg Gum) 4 mg BUCCAL Q1H PRN PRN Reason: Nicotine Cravings Last Admin: 10/27/21 09:21 Dose: 4 mg Perphenazine (Perphenazine 8 Mg Tablet) 16 mg PO TID [facility] Last Admin: 10/27/21 08:38 Dose: 16 mg Pharmacy Consult (Consult Rx Perform Med Rec) 1 each MISCELLANE ONCE PRN PRN Reason: Consult order Pravastatin Sodium (Pravastatin Sodium 40 Mg Tablet) 40 mg PO BEDTIME [facility] Last Admin: 10/26/21 20:37 Dose: 40 mg Quetiapine Fumarate (Quetiapine Fumarate 200 Mg Tablet) 200 mg PO BID@0900,1400 [facility] Last Admin: 10/27/21 08:38 Dose: 200 mg Quetiapine Fumarate (Quetiapine Fumarate 400 Mg Tablet) 400 mg PO BEDTIME [facility] Last Admin: 10/26/21 20:37 Dose: 400 mg Tamsulosin HCl (Tamsulosin Hcl 0.4 Mg Capsule) 0.4 mg PO BEDTIME [facility] Last Admin: 10/26/21 20:37 Dose: 0.4 mg Trazodone HCl (Trazodone Hcl 100 Mg Tablet) 100 mg PO BEDTIME [facility] Last Admin: 10/26/21 20:38 Dose: 100 mg Trazodone HCl (Trazodone Hcl 50 Mg Tablet) 50 mg PO BEDTIME PRN PRN Reason: continued insomnia Last Admin: 10/27/21 00:30 Dose: 50 mg Vitamin E (Vitamin E (Dl,Tocopheryl Acet) 180 Mg (400 Unit) Capsule) 180 mg PO BID [facility] Last Admin: 10/27/21 08:38 Dose: 180 mg Allergies Allergies Allergy/AdvReac Type Severity Reaction Status Date / Time divalproex sodium Allergy Severe PANCREATITI Verified 09/24/21 09:22 [From DEPAKOTE] S haloperidol [From Haldol] Allergy Intermediate DYSTONIC Verified 09/24/21 09:22 REACTION Assessment & Plan Assessment & Plan (1) Schizoaffective disorder: Status: Acute Code(s): F25.9 - Schizoaffective disorder, unspecified Plan Patient is a 51-year-old male with history of schizoaffective disorder who prese [facility] for increasing symptoms and med noncompliance in the face of his father's recent . Patient reports that his father this past September; he's sad about it but shared a fond memory with race and sports book writer. Since then he stopped taking Clozaril and lithium -patient has odd behaviors, disorganized speech and is [id number] in manic due to the combined effect of dealing with father and coming off Clozaril and lithium; patient is pleasant and friendly however -patient willing to start Seroquel which he said he took decades ago and was helpful; not willing to try much else at the moment 10/17 patient remains mild to moderately manic with somewhat/bizarre behaviors, internally preoccupied; is friendly and polite otherwise. Would like Seroquel increased. Patient used to be client of [facility]; now that his father is gone he may again require such services. Social Work inquiring 10/18 increasing angry age to patient's dialoguing; a little more intrusive with others and confrontational but still easily redirected. Would like Flomax which he says he took as an outpatient. Not sure if patient has urinary retention or is just holding his urine as he was able to go on his own to avoid being straight cathed. Agrees to increasing Seroquel 10/19 patient reports sleeping well last night; little less intense, a little less manic today. Perhaps increased Seroquel dose is taking effect. Will continue to monitor 10/20 pt seems a little more organized in both speech and behavior; will see if he can further stabilize on current Seroquel dose before raising 10/21 remains vacillating between organized/disorganized need more collateral about baseline 10/22 agrees to go up on Seroquel; He is already at a high dose of perphenazine; if patient does not further stabilize and go back to sleeping will have to consider another medication 10/25 Not sleeping; does not want to get back on clozapine even at a very low dose. Says prefers Thorazine if needed. Still disorganized with speech and behavior though less manicky than on admission 10/26 again not sleeping; patient a little more edgy and irritable today. Will try to help patient sleep with increased trazodone; hoping not to have to add a nother antipsychotic Plan: CV Q 15 minute checks Continue Flomax 0.4 mg q.h.s.; patient finds helpful Continue perphenazine 16 mg t.i.d. Continue Seroquel 200mg BID 0900/1400 and Continue Seroquel 400mg q.h.s.; INCREASED TO trazodone 100mg qhs scheduled with 50mg prn Will continue to use collateral Regarding patient's baseline re-application for DMH/ACCS services I spent minutes with the patient and/or on the patient floor today, greater than?50% of which was spent counseling/coordinating care. Patient educated on: diagnosis and medication risk/benefits Informed Consent: understands Reason for contiued inpatient stay Substantial Risk for: inability to function and rapid decompensation
[2021-10-27 16:15] VITALS: BP 123/71; PULSE 98; TEMP 36.6
[2021-10-27] MEDS: hydrOXYzine HCL 50 MG TABLET PO (21:42)
[2021-10-27] MEDS: QUEtiapine Fumarate 400 MG TABLET PO (21:42)
[2021-10-27] MEDS: Pravastatin Sodium 40 MG TABLET PO (21:44)
[2021-10-27] MEDS: traZODone HCL 100 MG TABLET PO (21:44)
[2021-10-27] MEDS: Tamsulosin HCL 0.4 MG CAPSULE PO (21:44)
[2021-10-28] MEDS: Nicotine Polacrilex 2 MG GUM 4 MG BUCCAL ×4 (04:01→18:18)
[2021-10-28 06:00] VITALS: BP 122/71; PULSE 75; RESP 16; TEMP 36; O2SAT 98
[2021-10-28] MEDS: Ibuprofen 600 MG TABLET PO ×2 (07:45→18:20)
[2021-10-28] MEDS: Perphenazine 8 MG TABLET 16 MG PO ×3 (08:30→21:13)
[2021-10-28] MEDS: Famotidine 20 MG TABLET PO ×2 (08:30→21:10)
[2021-10-28] MEDS: QUEtiapine Fumarate 200 MG TABLET PO ×2 (08:30→13:50)
[2021-10-28] MEDS: Vitamin E (Dl,Tocopheryl Acet) 180 MG (400 UNIT) CAPSULE PO ×2 (08:30→21:13)
[2021-10-28] MEDS: Ascorbic Acid 250 MG TABLET PO (08:30)
[2021-10-28] MEDS: Fluticasone/Vilanterol 100/25 BLST.W.DEV 1 PUFF INHALE (08:30)
--- NOTE | 2021-10-28 15:48 | P.PNPSI_ITS ---
Subjective Subjective Date of Service: 10/28/21 Reason For Visit: Schizoaffetive disorder, bipolar type Interim History: Patient irritable today, started raising his voice to telegraphic typewriter repairer accusing him of trying to get him to take Depakote, misunderstanding the past conversation. Patient did not like the idea of increasing Seroquel. [employer] Worker asked him again if he was willing to try lithium since his sister said during their conversation he was willing to retry it. Initially patient said this was not the case and continued to refuse, citing diarrhea. However he talked to his sister and then approach telegraphic typewriter repairer saying that he be willing to try it at a very low dose to see if he could tolerate it. Mental Status Exam Mental Status Exam Narrative: Pt is alert and oriented; behavior is cooperative but a little irritable, little more disorganized; patient is not in distress; dressed in casual attire, unkempt; mood is described as good and affect labile; eye contact A little intense; Speech is a little pressured; normal volume and prosody; mild psychomotor agitation present; thought process is more linear and for longer; Thought content is on feeling better, numerous random things; some delusional thinking; no SI/HI. Denies AVH; internal preoccupation; Patients insight and judgment are impaired but improved. Diagnostics Vital Signs (24Hr): Vital Signs - 24 hr 10/27/21 16:15 10/28/21 06:00 Temperature 97.8 F 96.8 F Pulse Rate 98 75 Respiratory Rate 16 Blood Pressure 123/71 122/71 Pulse Oximetry 98 Oxygen Delivery Method Room Air BMI result Body Mass Index 29.2 Labs Results: 10/14/21 19:01 10/14/21 19:01 Medications Medications Current Medications Acetaminophen (Acetaminophen 325 Mg Tablet) 650 mg PO Q6H PRN PRN Reason: Headache/Pain Mild Scale (1-3) Last Admin: 10/22/21 05:55 Dose: 650 mg Al Hydroxide/Mg Hydroxide (Magnesium Hydrox/Alum Hydrox 30 Ml Oral.Susp) 30 ml PO Q6H PRN PRN Reason: Heartburn/Nausea Albuterol Sulfate (Albuterol Sulfate 90 Mcg 8 Gm Inhaler) 2 puff INHALE RQ4H PRN PRN Reason: Shortness of Breath/Wheezing Ascorbic Acid (Ascorbic Acid 250 Mg Tablet) 250 mg PO DAILY [facility] Last Admin: 10/28/21 08:30 Dose: 250 mg Famotidine (Famotidine 20 Mg Tablet) 20 mg PO Q12H [facility] Last Admin: 10/28/21 08:30 Dose: 20 mg Fluticasone/Vilanterol (Fluticasone/Vilanterol 100/25 Blst.W.Dev) 1 puff INHALE RDAILY [facility] Last Admin: 10/28/21 08:30 Dose: 1 puff Hydroxyzine HCl (Hydroxyzine Hcl 50 Mg Tablet) 50 mg PO TID PRN PRN Reason: anxiety Last Admin: 10/27/21 21:42 Dose: 50 mg Hydroxyzine HCl (Hydroxyzine Hcl 25 Mg Tablet) 25 mg PO Q6H PRN PRN Reason: Anxiety Last Admin: 10/27/21 16:19 Dose: 25 mg Ibuprofen (Ibuprofen 600 Mg Tablet) 600 mg PO Q8H PRN PRN Reason: Pain, Mild (Pain Scale 1-3) Last Admin: 10/28/21 07:45 Dose: 600 mg [place] Carbonate ([place] Carbonate 300 Mg Tablet) 150 mg PO BEDTIME [facility] Loperamide HCl (Loperamide Hcl 2 Mg Capsule) 2 mg PO Q6H PRN PRN Reason: loose stool Magnesium Hydroxide (Milk Of Magnesia 30 Ml Oral.Susp) 30 ml PO DAILY PRN PRN Reason: Constipation Last Admin: 10/24/21 19:43 Dose: 30 ml Nicotine Polacrilex (Nicotine Polacrilex 2 Mg Gum) 4 mg BUCCAL Q1H PRN PRN Reason: Nicotine Cravings Last Admin: 10/28/21 13:50 Dose: 4 mg Perphenazine (Perphenazine 8 Mg Tablet) 16 mg PO TID [facility] Last Admin: 10/28/21 15:13 Dose: 16 mg Pharmacy Consult (Consult Rx Perform Med Rec) 1 each MISCELLANE ONCE PRN PRN Reason: Consult order Pravastatin Sodium (Pravastatin Sodium 40 Mg Tablet) 40 mg PO BEDTIME [facility] Last Admin: 10/27/21 21:44 Dose: 40 mg Quetiapine Fumarate (Quetiapine Fumarate 200 Mg Tablet) 200 mg PO BID@0900,1400 [facility] Last Admin: 10/28/21 13:50 Dose: 200 mg Quetiapine Fumarate (Quetiapine Fumarate 400 Mg Tablet) 400 mg PO BEDTIME [facility] Tamsulosin HCl (Tamsulosin Hcl 0.4 Mg Capsule) 0.4 mg PO BEDTIME [facility] Last Admin: 10/27/21 21:44 Dose: 0.4 mg Trazodone HCl (Trazodone Hcl 100 Mg Tablet) 100 mg PO BEDTIME [facility] Last Admin: 10/27/21 21:44 Dose: 100 mg Trazodone HCl (Trazodone Hcl 50 Mg Tablet) 50 mg PO BEDTIME PRN PRN Reason: continued insomnia Last Admin: 10/27/21 00:30 Dose: 50 mg Vitamin E (Vitamin E (Dl,Tocopheryl Acet) 180 Mg (400 Unit) Capsule) 180 mg PO BID [facility] Last Admin: 10/28/21 08:30 Dose: 180 mg Allergies Allergies Allergy/AdvReac Type Severity Reaction Status Date / Time divalproex sodium Allergy Severe PANCREATITI Verified 09/24/21 09:22 [From DEPAKOTE] S haloperidol [From Haldol] Allergy Intermediate DYSTONIC Verified 09/24/21 09:22 REACTION Assessment & Plan Assessment & Plan (1) Schizoaffective disorder: Status: Acute Code(s): F25.9 - Schizoaffective disorder, unspecified Plan Patient is a 51-year-old male with history of schizoaffective disorder who presents for increasing symptoms and med noncompliance in the face of his father's recent . 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 Since then he stopped taking Clozaril and lithium -patient has odd behaviors, disorganized speech and is [id number] in manic due to the combined effect of dealing with father and coming off Clozaril and lithium; patient is pleasant and friendly however -patient willing to start Seroquel which he said he took decades ago and was helpful; not willing to try much else at the moment 10/17 patient remains mild to moderately manic with somewhat/bizarre behaviors, internally preoccupied; is friendly and polite otherwise. Would like Seroquel increased. Patient used to be client of [facility]; now that his father is gone he may again require such services. Social Work inquiring 10/18 increasing angry age to patient's dialoguing; a little more intrusive with others and confrontational but still easily redirected. Would like Flomax which he says he took as an outpatient. Not sure if patient has urinary retention or is just holding his urine as he was able to go on his own to avoid being straight cathed. Agrees to increasing Seroquel 10/19 patient reports sleeping well last night; little less intense, a little less manic today. Perhaps increased Seroquel dose is taking effect. Will continue to monitor 10/20 pt seems a little more organized in both speech and behavior; will see if he can further stabilize on current Seroquel dose before raising 10/21 remains vacillating between organized/disorganized need more collateral about baseline 10/22 agrees to go up on Seroquel; He is already at a high dose of perphenazine; if patient does not further stabilize and go back to sleeping will have to consider another medication 10/25 Not sleeping; does not want to get back on clozapine even at a very low dose. Says prefers Thorazine if needed. Still disorganized with speech and behavior though less manicky than on admission 10/26 again not sleeping; patient a little more edgy and irritable today. Will try to help patient sleep with increased trazodone; hoping not to have to add another antipsychotic 10/28 patient irritable; agrees to retry lithium at a low dose to see if it can augment Seroquel and be enough. He says he gets diarrhea he is going to stop lithium Plan: CV Q 15 minute checks START [place] ER 300mgmg qhs; ER which can mitigate side-effects; will see if tolerates Continue Flomax 0.4 mg q.h.s.; patient finds helpful Continue perphenazine 16 mg t.i.d. Continue Seroquel 200mg BID 0900/1400 and Continue Seroquel 400mg q.h.s.; INCREASED TO trazodone 100mg qhs scheduled with 50mg prn Will continue to use collateral Regarding patient's baseline re-application for DMH/ACCS services I spent minutes with the patient and/or on the patient floor today, greater than?50% of which was spent counseling/coordinating care. Patient educated on: medication risk/benefits Reason for contiued inpatient stay Substantial Risk for: rapid decompensation
[2021-10-28 19:30] VITALS: BP 131/85; PULSE 84; TEMP 36.7; O2SAT 100
[2021-10-28] MEDS: Tamsulosin HCL 0.4 MG CAPSULE PO (21:09)
[2021-10-28] MEDS: traZODone HCL 100 MG TABLET PO (21:10)
[2021-10-28] MEDS: QUEtiapine Fumarate 400 MG TABLET PO (21:12)
[2021-10-28] MEDS: Lithium Carbonate 300 MG TABLET 150 MG PO (21:12)
[2021-10-28] MEDS: Pravastatin Sodium 40 MG TABLET PO (21:13)
[2021-10-28] MEDS: hydrOXYzine HCL 50 MG TABLET PO (22:03)
[2021-10-29] MEDS: Nicotine Polacrilex 2 MG GUM 4 MG BUCCAL ×8 (03:34→20:28)
[2021-10-29] MEDS: Ibuprofen 600 MG TABLET PO ×2 (03:35→22:03)
[2021-10-29] MEDS: hydrOXYzine HCL 50 MG TABLET PO ×3 (05:45→21:53)
[2021-10-29 05:47] VITALS: BP 110/68; PULSE 88; RESP 20; TEMP 36.4; O2SAT 98
[2021-10-29] MEDS: Perphenazine 8 MG TABLET 16 MG PO ×3 (08:22→21:54)
[2021-10-29] MEDS: Ascorbic Acid 250 MG TABLET PO (08:22)
[2021-10-29] MEDS: QUEtiapine Fumarate 200 MG TABLET PO ×2 (08:22→14:13)
[2021-10-29] MEDS: Famotidine 20 MG TABLET PO ×2 (08:22→22:02)
[2021-10-29] MEDS: Vitamin E (Dl,Tocopheryl Acet) 180 MG (400 UNIT) CAPSULE PO ×2 (08:22→21:53)
[2021-10-29] MEDS: Fluticasone/Vilanterol 100/25 BLST.W.DEV 1 PUFF INHALE (08:23)
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
[2021-10-29 18:00] VITALS: BP 139/98; PULSE 98; TEMP 36.7; O2SAT 98
[2021-10-29 21:45] VITALS: BP 119/60; PULSE 92; TEMP 36.2
[2021-10-29] MEDS: Prazosin HCL 1 MG CAPSULE 2 MG PO (21:53)
[2021-10-29] MEDS: traZODone HCL 100 MG TABLET PO (22:01)
[2021-10-29] MEDS: Tamsulosin HCL 0.4 MG CAPSULE PO (22:02)
[2021-10-29] MEDS: Pravastatin Sodium 40 MG TABLET PO (22:02)
[2021-10-29] MEDS: Lithium Carbonate 300 MG TABLET 150 MG PO (22:02)
[2021-10-29] MEDS: QUEtiapine Fumarate 400 MG TABLET PO (22:03)
[2021-10-30] MEDS: Nicotine Polacrilex 2 MG GUM 4 MG BUCCAL ×6 (03:50→20:29)
[2021-10-30 06:13] VITALS: BP 128/78; PULSE 71; O2SAT 97
[2021-10-30 07:00] VITALS: BMI 29.4
[2021-10-30] MEDS: QUEtiapine Fumarate 200 MG TABLET PO ×2 (08:33→14:14)
[2021-10-30] MEDS: Ascorbic Acid 250 MG TABLET PO (08:33)
[2021-10-30] MEDS: Perphenazine 8 MG TABLET 16 MG PO ×3 (08:33→21:52)
[2021-10-30] MEDS: Vitamin E (Dl,Tocopheryl Acet) 180 MG (400 UNIT) CAPSULE PO ×2 (08:33→21:52)
[2021-10-30] MEDS: Famotidine 20 MG TABLET PO ×2 (08:33→21:52)
[2021-10-30] MEDS: Fluticasone/Vilanterol 100/25 BLST.W.DEV 1 PUFF INHALE (08:35)
[2021-10-30] MEDS: Ibuprofen 600 MG TABLET PO ×2 (11:40→21:55)
[2021-10-30] MEDS: hydrOXYzine HCL 50 MG TABLET PO ×2 (11:41→22:49)
--- NOTE | 2021-10-30 17:42 | HO.PSYCHPN ---
Subjective Subjective Date of Service: 10/30/21 Reason For Visit: Schizoaffetive disorder, bipolar type Subjective Notes: Andrews Warning and Conditional Voluntary Interim History: I spoke with pt's team and evaluated pt this evening. He reports he has been having problems with my stomach, fearful of diarrhea. Pt asks that I speak with his sister, Maisha. Says I dont want it no more for lithium. Says even if I prescribe it, he will stop taking it when he leaves. Says prazosin helped, knocked me out, no nightmares. Discussed tegretol ER with pt and he is agreeable. Reviewed risks and benefits, provided educational handout. Sister is agreeable with plan, feels seroquel is not gonna cut it and wants it augmented with mood stabilizer as he has historically done well with mood stabilizers. Medication Compliance: Yes Side effects from medications: Yes Attending Groups: Intermittent Review of Systems Acute medical concerns: No Medical Review of Systems: unchanged Mental Status Exam Mental Status Exam Narrative: Pt is alert and oriented; behavior is cooperative but a little irritable, little more disorganized; patient is not in distress; dressed in casual attire, unkempt;? mood is described as good and affect labile; eye contact A little intense; Speech is a little pressured; normal volume and prosody; mild psychomotor agitation present; thought process is more linear and for longer; Thought content is on feeling better, numerous random things; some delusional thinking; no SI/HI. Denies AVH;? internal preoccupation; Patients insight and judgment are impaired but improved. Diagnostics Vital Signs (24Hr): Vital Signs - 24 hr 10/29/21 18:00 10/29/21 21:45 10/30/21 06:13 Temperature 98.1 F 97.2 F Pulse Rate 98 92 71 Blood Pressure 139/98 H 119/60 128/78 Pulse Oximetry 98 97 Oxygen Delivery Method Room Air BMI result Body Mass Index 29.4 Labs Results: 10/14/21 19:01 10/14/21 19:01 Medications Medications Current Medications Acetaminophen (Acetaminophen 325 Mg Tablet) 650 mg PO Q6H PRN PRN Reason: Headache/Pain Mild Scale (1-3) Last Admin: 10/22/21 05:55 Dose: 650 mg Al Hydroxide/Mg Hydroxide (Magnesium Hydrox/Alum Hydrox 30 Ml Oral.Susp) 30 ml PO Q6H PRN PRN Reason: Heartburn/Nausea Albuterol Sulfate (Albuterol Sulfate 90 Mcg 8 Gm Inhaler) 2 puff INHALE RQ4H PRN PRN Reason: Shortness of Breath/Wheezing Ascorbic Acid (Ascorbic Acid 250 Mg Tablet) 250 mg PO DAILY [facility] Last Admin: 10/30/21 08:33 Dose: 250 mg Famotidine (Famotidine 20 Mg Tablet) 20 mg PO Q12H [facility] Last Admin: 10/30/21 08:33 Dose: 20 mg Fluticasone/Vilanterol (Fluticasone/Vilanterol 100/25 Blst.W.Dev) 1 puff INHALE RDAILY [facility] Last Admin: 10/30/21 08:35 Dose: 1 puff Hydroxyzine HCl (Hydroxyzine Hcl 50 Mg Tablet) 50 mg PO TID PRN PRN Reason: anxiety Last Admin: 10/30/21 11:41 Dose: 50 mg Hydroxyzine HCl (Hydroxyzine Hcl 25 Mg Tablet) 25 mg PO Q6H PRN PRN Reason: Anxiety Last Admin: 10/27/21 16:19 Dose: 25 mg Ibuprofen (Ibuprofen 600 Mg Tablet) 600 mg PO Q8H PRN PRN Reason: Pain, Mild (Pain Scale 1-3) Last Admin: 10/30/21 11:40 Dose: 600 mg [place] Carbonate ([place] Carbonate 300 Mg Tablet) 150 mg PO BEDTIME [facility] Last Admin: 10/29/21 22:02 Dose: 150 mg Loperamide HCl (Loperamide Hcl 2 Mg Capsule) 2 mg PO Q6H PRN PRN Reason: loose stool Magnesium Hydroxide (Milk Of Magnesia 30 Ml Oral.Susp) 30 ml PO DAILY PRN PRN Reason: Constipation Last Admin: 10/24/21 19:43 Dose: 30 ml Nicotine Polacrilex (Nicotine Polacrilex 2 Mg Gum) 4 mg BUCCAL Q1H PRN PRN Reason: Nicotine Cravings Last Admin: 10/30/21 16:50 Dose: 4 mg Perphenazine (Perphenazine 8 Mg Tablet) 16 mg PO TID [facility] Last Admin: 10/30/21 14:14 Dose: 16 mg Pharmacy Consult (Consult Rx Perform Med Rec) 1 each MISCELLANE ONCE PRN PRN Reason: Consult order Pravastatin Sodium (Pravastatin Sodium 40 Mg Tablet) 40 mg PO BEDTIME [facility] Last Admin: 10/29/21 22:02 Dose: 40 mg Prazosin HCl (Prazosin Hcl 1 Mg Capsule) 2 mg PO BEDTIME [facility]; Protocol Last Admin: 10/29/21 21:53 Dose: 2 mg Quetiapine Fumarate (Quetiapine Fumarate 200 Mg Tablet) 200 mg PO BID@0900,1400 [facility] Last Admin: 10/30/21 14:14 Dose: 200 mg Quetiapine Fumarate (Quetiapine Fumarate 400 Mg Tablet) 400 mg PO BEDTIME [facility] Last Admin: 10/29/21 22:03 Dose: 400 mg Tamsulosin HCl (Tamsulosin Hcl 0.4 Mg Capsule) 0.4 mg PO BEDTIME [facility] Last Admin: 10/29/21 22:02 Dose: 0.4 mg Trazodone HCl (Trazodone Hcl 100 Mg Tablet) 100 mg PO BEDTIME [facility] Last Admin: 10/29/21 22:01 Dose: 100 mg Trazodone HCl (Trazodone Hcl 50 Mg Tablet) 50 mg PO BEDTIME PRN PRN Reason: continued insomnia Last Admin: 10/27/21 00:30 Dose: 50 mg Vitamin E (Vitamin E (Dl,Tocopheryl Acet) 180 Mg (400 Unit) Capsule) 180 mg PO BID [facility] Last Admin: 10/30/21 08:33 Dose: 180 mg Allergies Allergies Allergy/AdvReac Type Severity Reaction Status Date / Time divalproex sodium Allergy Severe PANCREATITI Verified 09/24/21 09:22 [From DEPAKOTE] S haloperidol [From Haldol] Allergy Intermediate DYSTONIC Verified 09/24/21 09:22 REACTION Assessment & Plan Assessment & Plan (1) Schizoaffective disorder: Status: Acute Code(s): F25.9 - Schizoaffective disorder, unspecified Plan Patient is a 51-year-old male with history of schizoaffective disorder who presents for increasing symptoms and med noncompliance in the face of his father's recent . 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 Since then he stopped taking Clozaril and lithium -patient has odd behaviors, disorganized speech and is [id number] in manic due to the combined effect of dealing with father and coming off Clozaril and lithium; patient is pleasant and friendly however -patient willing to start Seroquel which he said he took decades ago and was helpful; not willing to try much else at the moment 10/17 patient remains mild to moderately manic with somewhat/bizarre behaviors, internally preoccupied; is friendly and polite otherwise. Would like Seroquel increased. Patient used to be client of [facility]; now that his father is gone he may again require such services. Social Work inquiring 10/18 increasing angry age to patient's dialoguing; a little more intrusive with others and confrontational but still easily redirected. Would like Flomax which he says he took as an outpatient. Not sure if patient has urinary retention or is just holding his urine as he was able to go on his own to avoid being straight cathed. Agrees to increasing Seroquel 10/19 patient reports sleeping well last night; little less intense, a little less manic today. Perhaps increased Seroquel dose is taking effect. Will continue to monitor 10/20 pt seems a little more organized in both speech and behavior; will see if he can further stabilize on current Seroquel dose before raising 10/21 remains vacillating between organized/disorganized need more collateral about baseline 10/22 agrees to go up on Seroquel; He is already at a high dose of perphenazine; if patient does not further stabilize and go back to sleeping will have to consider another medication 10/25 Not sleeping; does not want to get back on clozapine even at a very low dose. Says prefers Thorazine if needed. Still disorganized with speech and behavior though less manicky than on admission 10/26 again not sleeping; patient a little more edgy and irritable today. Will try to help patient sleep with increased trazodone; hoping not to have to add another antipsychotic 10/28 patient irritable; agrees to retry lithium at a low dose to see if it can augment Seroquel and be enough. He says he gets diarrhea he is going to stop lithium 10/29 d/c lithium, start tegretol ER 100 mg BID for mood stability Plan: CV Q 15 minute checks START [place] ER 300mgmg qhs; ER which can mitigate side-effects; will see if tolerates Continue Flomax 0.4 mg q.h.s.; patient finds helpful Continue perphenazine 16 mg t.i.d. Continue Seroquel 200mg BID 0900/1400 and Continue Seroquel 400mg q.h.s.; INCREASED TO trazodone 100mg qhs scheduled with 50mg prn Will continue to use collateral Regarding patient's baseline re-application for DMH/ACCS services I spent minutes with the patient and/or on the patient floor today, greater than?50% of which was spent counseling/coordinating care. Patient educated on: diagnosis, medication risk/benefits and therapeutic strategies Reason for contiued inpatient stay Substantial Risk for: inability to function, rapid decompensation and med/psych decompensation
[2021-10-30 18:00] VITALS: BP 149/77; PULSE 92; RESP 18; TEMP 36.6; O2SAT 97
[2021-10-30] MEDS: Prazosin HCL 1 MG CAPSULE 2 MG PO (21:51)
[2021-10-30] MEDS: QUEtiapine Fumarate 400 MG TABLET PO (21:52)
[2021-10-30] MEDS: traZODone HCL 100 MG TABLET PO (21:52)
[2021-10-30] MEDS: carBAMazepine ER 100 MG TAB.ER.12H PO (21:52)
[2021-10-30] MEDS: Pravastatin Sodium 40 MG TABLET PO (21:52)
[2021-10-30] MEDS: Tamsulosin HCL 0.4 MG CAPSULE PO (21:52)
[2021-10-31] MEDS: Nicotine Polacrilex 2 MG GUM 4 MG BUCCAL ×8 (05:13→22:21)
[2021-10-31 05:51] VITALS: BP 99/59; PULSE 88; TEMP 35.9
[2021-10-31] MEDS: Fluticasone/Vilanterol 100/25 BLST.W.DEV 1 PUFF INHALE (08:24)
[2021-10-31] MEDS: Perphenazine 8 MG TABLET 16 MG PO ×3 (08:25→22:21)
[2021-10-31] MEDS: QUEtiapine Fumarate 200 MG TABLET PO ×2 (08:25→14:17)
[2021-10-31] MEDS: Famotidine 20 MG TABLET PO ×2 (08:25→22:21)
[2021-10-31] MEDS: carBAMazepine ER 100 MG TAB.ER.12H PO ×2 (08:25→22:21)
[2021-10-31] MEDS: Ascorbic Acid 250 MG TABLET PO (08:25)
[2021-10-31] MEDS: Vitamin E (Dl,Tocopheryl Acet) 180 MG (400 UNIT) CAPSULE PO ×2 (08:25→22:20)
[2021-10-31] MEDS: Ibuprofen 600 MG TABLET PO ×3 (09:20→22:23)
[2021-10-31] MEDS: hydrOXYzine HCL 50 MG TABLET PO ×3 (09:21→22:23)
[2021-10-31 22:20] VITALS: BP 137/95; PULSE 83; RESP 14; TEMP 36.5
[2021-10-31] MEDS: Prazosin HCL 1 MG CAPSULE 2 MG PO (22:20)
[2021-10-31] MEDS: traZODone HCL 100 MG TABLET PO (22:21)
[2021-10-31] MEDS: QUEtiapine Fumarate 400 MG TABLET PO (22:21)
[2021-10-31] MEDS: Pravastatin Sodium 40 MG TABLET PO (22:21)
[2021-10-31] MEDS: traZODone HCL 50 MG TABLET PO (22:21)
[2021-10-31] MEDS: Tamsulosin HCL 0.4 MG CAPSULE PO (22:21)
--- NOTE | 2021-10-31 23:03 | P.PNPSI_ITS ---
Subjective Subjective Date of Service: 10/31/21 Reason For Visit: Schizoaffetive disorder, bipolar type Interim History: I spoke with pt's team and evaluated him this evening. He says he feels like the tegretol ER is working, took me right down, i'm not getting riled up, denies SE. Says he wants to turn his poetry into music. Continues with bizarre statements but overall appropriate. Says Im such good medication now. Says prazosin is working good, sleep is good, no nightmares. Mood is good. Says he has mostly been in his room but this is so he can read and meditate. Medication Compliance: Yes Side effects from medications: No Attending Groups: Intermittent Review of Systems Acute medical concerns: No Medical Review of Systems: unchanged Mental Status Exam Mental Status Exam Narrative: Pt is alert and oriented; behavior is cooperative but a little irritable, little more disorganized; patient is not in distress; dressed in casual attire, unkempt;? mood is described as good and affect labile; eye contact A little in tense; Speech is a little pressured; normal volume and prosody; mild psychomotor agitation present; thought process is more linear and for longer; Thought content is on feeling better, numerous random things; some delusional thinking; no SI/HI. Denies AVH;? internal preoccupation; Patients insight and judgment are impaired but improved. Diagnostics Vital Signs (24Hr): Vital Signs - 24 hr 10/31/21 05:51 10/31/21 22:20 Temperature 96.7 F L 97.7 F Pulse Rate 88 83 Respiratory Rate 14 Blood Pressure 99/59 L 137/95 H BMI result Body Mass Index 29.4 Labs Results: 10/14/21 19:01 10/14/21 19:01 Medications Medications Current Medications Acetaminophen (Acetaminophen 325 Mg Tablet) 650 mg PO Q6H PRN PRN Reason: Headache/Pain Mild Scale (1-3) Last Admin: 10/22/21 05:55 Dose: 650 mg Al Hydroxide/Mg Hydroxide (Magnesium Hydrox/Alum Hydrox 30 Ml Oral.Susp) 30 ml PO Q6H PRN PRN Reason: Heartburn/Nausea Albuterol Sulfate (Albuterol Sulfate 90 Mcg 8 Gm Inhaler) 2 puff INHALE RQ4H PRN PRN Reason: Shortness of Breath/Wheezing Ascorbic Acid (Ascorbic Acid 250 Mg Tablet) 250 mg PO DAILY [facility] Last Admin: 10/31/21 08:25 Dose: 250 mg Carbamazepine (Carbamazepine Er 100 Mg Tab.Er.12h) 100 mg PO BID [facility] Last Admin: 10/31/21 22:21 Dose: 100 mg Famotidine (Famotidine 20 Mg Tablet) 20 mg PO Q12H [facility] Last Admin: 10/31/21 22:21 Dose: 20 mg Fluticasone/Vilanterol (Fluticasone/Vilanterol 100/25 Blst.W.Dev) 1 puff INHALE RDAILY [facility] Last Admin: 10/31/21 08:24 Dose: 1 puff Hydroxyzine HCl (Hydroxyzine Hcl 50 Mg Tablet) 50 mg PO TID PRN PRN Reason: anxiety Last Admin: 10/31/21 22:23 Dose: 50 mg Hydroxyzine HCl (Hydroxyzine Hcl 25 Mg Tablet) 25 mg PO Q6H PRN PRN Reason: Anxiety Last Admin: 10/27/21 16:19 Dose: 25 mg Ibuprofen (Ibuprofen 600 Mg Tablet) 600 mg PO Q8H PRN PRN Reason: Pain, Mild (Pain Scale 1-3) Last Admin: 10/31/21 22:23 Dose: 600 mg Loperamide HCl (Loperamide Hcl 2 Mg Capsule) 2 mg PO Q6H PRN PRN Reason: loose stool Magnesium Hydroxide (Milk Of Magnesia 30 Ml Oral.Susp) 30 ml PO DAILY PRN PRN Reason: Constipation Last Admin: 10/24/21 19:43 Dose: 30 ml Nicotine Polacrilex (Nicotine Polacrilex 2 Mg Gum) 4 mg BUCCAL Q1H PRN PRN Reason: Nicotine Cravings Last Admin: 10/31/21 22:21 Dose: 4 mg Perphenazine (Perphenazine 8 Mg Tablet) 16 mg PO TID [facility] Last Admin: 10/31/21 22:21 Dose: 16 mg Pravastatin Sodium (Pravastatin Sodium 40 Mg Tablet) 40 mg PO BEDTIME [facility] Last Admin: 10/31/21 22:21 Dose: 40 mg Prazosin HCl (Prazosin Hcl 1 Mg Capsule) 2 mg PO BEDTIME [facility]; Protocol Last Admin: 10/31/21 22:20 Dose: 2 mg Quetiapine Fumarate (Quetiapine Fumarate 200 Mg Tablet) 200 mg PO BID@0900,1400 [facility] Last Admin: 10/31/21 14:17 Dose: 200 mg Quetiapine Fumarate (Quetiapine Fumarate 400 Mg Tablet) 400 mg PO BEDTIME [facility] Last Admin: 10/31/21 22:21 Dose: 400 mg Tamsulosin HCl (Tamsulosin Hcl 0.4 Mg Capsule) 0.4 mg PO BEDTIME [facility] Last Admin: 10/31/21 22:21 Dose: 0.4 mg Trazodone HCl (Trazodone Hcl 100 Mg Tablet) 100 mg PO BEDTIME [facility] Last Admin: 10/31/21 22:21 Dose: 100 mg Trazodone HCl (Trazodone Hcl 50 Mg Tablet) 50 mg PO BEDTIME PRN PRN Reason: continued insomnia Last Admin: 10/31/21 22:21 Dose: 50 mg Vitamin E (Vitamin E (Dl,Tocopheryl Acet) 180 Mg (400 Unit) Capsule) 180 mg PO BID [facility] Last Admin: 10/31/21 22:20 Dose: 180 mg Allergies Allergies Allergy/AdvReac Type Severity Reaction Status Date / Time divalproex sodium Allergy Severe PANCREATITI Verified 09/24/21 09:22 [From DEPAKOTE] S haloperidol [From Haldol] Allergy Intermediate DYSTONIC Verified 09/24/21 09:22 REACTION Assessment & Plan Assessment & Plan (1) Schizoaffective disorder: Status: Acute Code(s): F25.9 - Schizoaffective disorder, unspecified Plan Patient is a 51-year-old male with history of schizoaffective disorder who presents for increasing symptoms and med noncompliance in the face of his father's recent . 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 Since then he stopped taking Clozaril and lithium -patient has odd behaviors, disorganized speech and is [id number] in manic due to the combined effect of dealing with father and coming off Clozaril and lithium; patient is pleasant and friendly however -patient willing to start Seroquel which he said he took decades ago and was helpful; not willing to try much else at the moment 10/17 patient remains mild to moderately manic with somewhat/bizarre behaviors, internally preoccupied; is friendly and polite otherwise. Would like Seroquel increased. Patient used to be client of [facility]; now that his father is gone he may again require such services. Social Work inquiring 10/18 increasing angry age to patient's dialoguing; a little more intrusive with others and confrontational but still easily redirected. Would like Flomax which he says he took as an outpatient. Not sure if patient has urinary retention or is just holding his urine as he was able to go on his own to avoid being straight cathed. Agrees to increasing Seroquel 10/19 patient reports sleeping well last night; little less intense, a little less manic today. Perhaps increased Seroquel dose is taking effect. Will continue to monitor 10/20 pt seems a little more organized in both speech and behavior; will see if he can further stabilize on current Seroquel dose before raising 10/21 remains vacillating between organized/disorganized need more collateral about baseline 10/22 agrees to go up on Seroquel; He is already at a high dose of perphenazine; if patient does not further stabilize and go back to sleeping will have to consider another medication 10/25 Not sleeping; does not want to get back on clozapine even at a very low dose. Says prefers Thorazine if needed. Still disorganized with speech and behavior though less manicky than on admission 10/26 again not sleeping; patient a little more edgy and irritable today. Will try to help patient sleep with increased trazodone; hoping not to have to add another antipsychotic 10/28 patient irritable; agrees to retry lithium at a low dose to see if it can augment Seroquel and be enough. He says he gets diarrhea he is going to stop lithium 10/29 Pt continues lithium trial. Will trial prazosin for nightmares, hyperarousal.d/c lithium, 10/30 start tegretol ER 100 mg BID for mood stability 10/31 continue tegretol ER trial, denies adverse effects Plan: CV Q 15 minute checks START [place] ER 300mgmg qhs; ER which can mitigate side-effects; will see if tolerates Continue Flomax 0.4 mg q.h.s.; patient finds helpful Continue perphenazine 16 mg t.i.d. Continue Seroquel 200mg BID 0900/1400 and Continue Seroquel 400mg q.h.s.; INCREASED TO trazodone 100mg qhs scheduled with 50mg prn Will continue to use collateral Regarding patient's baseline re-application for DMH/ACCS services I spent minutes with the patient and/or on the patient floor today, greater than?50% of which was spent counseling/coordinating care. Patient educated on: diagnosis, medication risk/benefits and therapeutic strategies Reason for contiued inpatient stay Substantial Risk for: rapid decompensation and med/psych decompensation
[2021-11-01] MEDS: Nicotine Polacrilex 2 MG GUM 4 MG BUCCAL ×7 (05:18→22:51)
[2021-11-01 06:00] VITALS: BP 125/81; PULSE 85; RESP 18; TEMP 36.4; O2SAT 97
[2021-11-01] MEDS: Perphenazine 8 MG TABLET 16 MG PO ×3 (07:55→22:49)
[2021-11-01] MEDS: Vitamin E (Dl,Tocopheryl Acet) 180 MG (400 UNIT) CAPSULE PO ×2 (07:56→22:51)
[2021-11-01] MEDS: Ibuprofen 600 MG TABLET PO ×2 (07:56→18:12)
[2021-11-01] MEDS: carBAMazepine ER 100 MG TAB.ER.12H PO ×2 (07:56→22:49)
[2021-11-01] MEDS: Ascorbic Acid 250 MG TABLET PO (07:56)
[2021-11-01] MEDS: QUEtiapine Fumarate 200 MG TABLET PO ×2 (07:56→14:10)
[2021-11-01] MEDS: Famotidine 20 MG TABLET PO ×2 (07:56→22:49)
[2021-11-01] MEDS: hydrOXYzine HCL 25 MG TABLET PO ×2 (07:56→22:51)
[2021-11-01] MEDS: Fluticasone/Vilanterol 100/25 BLST.W.DEV 1 PUFF INHALE (08:28)
[2021-11-01 18:00] VITALS: BP 128/76; PULSE 87; RESP 18; TEMP 36.2
[2021-11-01] MEDS: hydrOXYzine HCL 50 MG TABLET PO (18:12)
--- NOTE | 2021-11-01 20:24 | P.PNPSI_ITS ---
Subjective Subjective Date of Service: 11/01/21 Reason For Visit: Schizoaffetive disorder, bipolar type Interim History: Denies current sx. Reading [place] [employer] which he discussed. Discussed med regime and hx of efficacy with combination of Navane, Platea, Klonopin. Prefers Klonopin as he finds it most effective. Tolerating Tegretol, asks that it not be increased at this time. I feel good . Medication Compliance: Yes Side effects from medications: No Attending Groups: Intermittent Review of Systems Acute medical concerns: No Medical Review of Systems: unchanged Mental Status Exam Mental Status Exam Patient Appearance: Appropriate Patient Orientation: Person, Place, Time and Situation Level of Consciousness: Alert Patient Behavior: Talkative and Good Eye Contact Mood Description: Blunted Affect Description: Blunted Patient Cognition Impaired: No Ability to Follow Directions: Good Speech Pattern: Spontaneous Speech Memory Description: Intact Hallucinations: None Delusions: Grandiose and Present Thought Content: positive for Ethel and positive for Circumstantial Depressive Symptoms: Thoughts of /Suicide (denies) Judgement: Fair Diagnostics Vital Signs (24Hr): Vital Signs - 24 hr 10/31/21 22:20 11/01/21 06:00 Temperature 97.7 F 97.5 F Pulse Rate 83 85 Respiratory Rate 14 18 Blood Pressure 137/95 H 125/81 Pulse Oximetry 97 Oxygen Delivery Method Room Air BMI result Body Mass Index 29.4 Labs Results: 10/14/21 19:01 10/14/21 19:01 Medications Medications Current Medications Acetaminophen (Acetaminophen 325 Mg Tablet) 650 mg PO Q6H PRN PRN Reason: Headache/Pain Mild Scale (1-3) Last Admin: 10/22/21 05:55 Dose: 650 mg Al Hydroxide/Mg Hydroxide (Magnesium Hydrox/Alum Hydrox 30 Ml Oral.Susp) 30 ml PO Q6H PRN PRN Reason: Heartburn/Nausea Albuterol Sulfate (Albuterol Sulfate 90 Mcg 8 Gm Inhaler) 2 puff INHALE RQ4H PRN PRN Reason: Shortness of Breath/Wheezing Ascorbic Acid (Ascorbic Acid 250 Mg Tablet) 250 mg PO DAILY [facility] Last Admin: 11/01/21 07:56 Dose: 250 mg Carbamazepine (Carbamazepine Er 100 Mg Tab.Er.12h) 100 mg PO BID [facility] Last Admin: 11/01/21 07:56 Dose: 100 mg Famotidine (Famotidine 20 Mg Tablet) 20 mg PO Q12H [facility] Last Admin: 11/01/21 07:56 Dose: 20 mg Fluticasone/Vilanterol (Fluticasone/Vilanterol 100/25 Blst.W.Dev) 1 puff INHALE RDAILY [facility] Last Admin: 11/01/21 08:28 Dose: 1 puff Hydroxyzine HCl (Hydroxyzine Hcl 25 Mg Tablet) 25 mg PO Q6H PRN PRN Reason: Anxiety Last Admin: 11/01/21 07:56 Dose: 25 mg Ibuprofen (Ibuprofen 600 Mg Tablet) 600 mg PO Q8H PRN PRN Reason: Pain, Mild (Pain Scale 1-3) Last Admin: 11/01/21 18:12 Dose: 600 mg Loperamide HCl (Loperamide Hcl 2 Mg Capsule) 2 mg PO Q6H PRN PRN Reason: loose stool Magnesium Hydroxide (Milk Of Magnesia 30 Ml Oral.Susp) 30 ml PO DAILY PRN PRN Reason: Constipation Last Admin: 10/24/21 19:43 Dose: 30 ml Nicotine Polacrilex (Nicotine Polacrilex 2 Mg Gum) 4 mg BUCCAL Q1H PRN PRN Reason: Nicotine Cravings Last Admin: 11/01/21 18:12 Dose: 4 mg Perphenazine (Perphenazine 8 Mg Tablet) 16 mg PO TID [facility] Last Admin: 11/01/21 14:10 Dose: 16 mg Pravastatin Sodium (Pravastatin Sodium 40 Mg Tablet) 40 mg PO BEDTIME [facility] Last Admin: 10/31/21 22:21 Dose: 40 mg Prazosin HCl (Prazosin Hcl 1 Mg Capsule) 2 mg PO BEDTIME [facility]; Protocol Last Admin: 10/31/21 22:20 Dose: 2 mg Quetiapine Fumarate (Quetiapine Fumarate 200 Mg Tablet) 200 mg PO BID@0900,1400 [facility] Last Admin: 11/01/21 14:10 Dose: 200 mg Quetiapine Fumarate (Quetiapine Fumarate 400 Mg Tablet) 400 mg PO BEDTIME [facility] Last Admin: 10/31/21 22:21 Dose: 400 mg Tamsulosin HCl (Tamsulosin Hcl 0.4 Mg Capsule) 0.4 mg PO BEDTIME [facility] Last Admin: 10/31/21 22:21 Dose: 0.4 mg Trazodone HCl (Trazodone Hcl 100 Mg Tablet) 100 mg PO BEDTIME [facility] Last Admin: 10/31/21 22:21 Dose: 100 mg Trazodone HCl (Trazodone Hcl 50 Mg Tablet) 50 mg PO BEDTIME PRN PRN Reason: continued insomnia Last Admin: 10/31/21 22:21 Dose: 50 mg Vitamin E (Vitamin E (Dl,Tocopheryl Acet) 180 Mg (400 Unit) Capsule) 180 mg PO BID [facility] Last Admin: 11/01/21 07:56 Dose: 180 mg Allergies Allergies Allergy/AdvReac Type Severity Reaction Status Date / Time divalproex sodium Allergy Severe PANCREATITI Verified 09/24/21 09:22 [From DEPAKOTE] S haloperidol [From Haldol] Allergy Intermediate DYSTONIC Verified 09/24/21 09:22 REACTION Assessment & Plan Assessment & Plan (1) Schizoaffective disorder: Status: Acute Code(s): F25.9 - Schizoaffective disorder, unspecified Plan Patient is a 51-year-old male with history of schizoaffective disorder who pres ents for increasing symptoms and med noncompliance in the face of his father's recent . Patient reports that his father this past September; he's sad about it but shared a fond memory with communications writer. Since then he stopped taking Clozaril and lithium -patient has odd behaviors, disorganized speech and is [id number] in manic due to the combined effect of dealing with father and coming off Clozaril and lithium; patient is pleasant and friendly however -patient willing to start Seroquel which he said he took decades ago and was helpful; not willing to try much else at the moment 10/17 patient remains mild to moderately manic with somewhat/bizarre behaviors, internally preoccupied; is friendly and polite otherwise. Would like Seroquel increased. Patient used to be client of [facility]; now that his father is gone he may again require such services. Social Work inquiring 10/18 increasing angry age to patient's dialoguing; a little more intrusive with others and confrontational but still easily redirected. Would like Flomax which he says he took as an outpatient. Not sure if patient has urinary retention or is just holding his urine as he was able to go on his own to avoid being straight cathed. Agrees to increasing Seroquel 10/19 patient reports sleeping well last night; little less intense, a little less manic today. Perhaps increased Seroquel dose is taking effect. Will continue to monitor 10/20 pt seems a little more organized in both speech and behavior; will see if he can further stabilize on current Seroquel dose before raising 10/21 remains vacillating between organized/disorganized need more collateral about baseline 10/22 agrees to go up on Seroquel; He is already at a high dose of perphenazine; if patient does not further stabilize and go back to sleeping will have to consider another medication 10/25 Not sleeping; does not want to get back on clozapine even at a very low dose. Says prefers Thorazine if needed. Still disorganized with speech and behavior though less manicky than on admission 10/26 again not sleeping; patient a little more edgy and irritable today. Will try to help patient sleep with increased trazodone; hoping not to have to add another antipsychotic 10/28 patient irritable; agrees to retry lithium at a low dose to see if it can augment Seroquel and be enough. He says he gets diarrhea he is going to stop lithium 10/29 Pt continues lithium trial. Will trial prazosin for nightmares, hyperarousal.d/c lithium, 10/30 start tegretol ER 100 mg BID for mood stability 10/31 continue tegretol ER trial, denies adverse effects 11/01/21 Continue current plan of care Plan: CV Q 15 minute checks START Platea ER 300mgmg qhs; ER which can mitigate side-effects; will see if tolerates Continue Flomax 0.4 mg q.h.s.; patient finds helpful Continue perphenazine 16 mg t.i.d. Continue Seroquel 200mg BID 0900/1400 and Continue Seroquel 400mg q.h.s.; INCREASED TO trazodone 100mg qhs scheduled with 50mg prn Will continue to use collateral Regarding patient's baseline re-application for [facility]H/ACCS services I spent minutes with the patient and/or on the patient floor today, greater than?50% of which was spent counseling/coordinating care. Patient educated on: therapeutic strategies Informed Consent: understands and further education needed Reason for contiued inpatient stay Substantial Risk for: rapid decompensation
[2021-11-01] MEDS: Prazosin HCL 1 MG CAPSULE 2 MG PO (22:50)
[2021-11-01] MEDS: Pravastatin Sodium 40 MG TABLET PO (22:50)
[2021-11-01] MEDS: Tamsulosin HCL 0.4 MG CAPSULE PO (22:50)
[2021-11-01] MEDS: QUEtiapine Fumarate 400 MG TABLET PO (22:50)
[2021-11-01] MEDS: traZODone HCL 100 MG TABLET PO (22:51)
[2021-11-02 06:00] VITALS: BP 115/67; PULSE 94; RESP 18; TEMP 35.9; O2SAT 96
[2021-11-02] MEDS: hydrOXYzine HCL 25 MG TABLET PO ×3 (06:42→16:11)
[2021-11-02] MEDS: Ibuprofen 600 MG TABLET PO ×2 (06:47→15:57)
[2021-11-02] MEDS: Nicotine Polacrilex 2 MG GUM 4 MG BUCCAL ×6 (06:47→22:07)
[2021-11-02] MEDS: Vitamin E (Dl,Tocopheryl Acet) 180 MG (400 UNIT) CAPSULE PO ×2 (09:12→22:43)
[2021-11-02] MEDS: Perphenazine 8 MG TABLET 16 MG PO ×3 (09:12→22:41)
[2021-11-02] MEDS: Fluticasone/Vilanterol 100/25 BLST.W.DEV 1 PUFF INHALE (09:12)
[2021-11-02] MEDS: Famotidine 20 MG TABLET PO ×2 (09:12→22:43)
[2021-11-02] MEDS: QUEtiapine Fumarate 200 MG TABLET PO ×2 (09:12→13:21)
[2021-11-02] MEDS: Ascorbic Acid 250 MG TABLET PO (09:12)
[2021-11-02] MEDS: carBAMazepine ER 100 MG TAB.ER.12H PO ×2 (09:12→22:42)
[2021-11-02 09:18] VITALS: BP 128/26; PULSE 93; RESP 18; TEMP 36.3; O2SAT 97
--- NOTE | 2021-11-02 17:44 | P.PNPSI_ITS ---
Subjective Subjective Date of Service: 11/02/21 Reason For Visit: Schizoaffetive disorder, bipolar type Interim History: Atarax increased to 50 mg per pt request as he finds it helpful. No identification of symptoms today. Reports sleep and appetite are intact. Social, visable, tangential at times. Supportive of room-mate, asking about discharge Medication Compliance: Yes Side effects from medications: No Attending Groups: Yes Review of Systems Acute medical concerns: No Medical Review of Systems: unchanged Mental Status Exam Mental Status Exam Patient Appearance: Appropriate Patient Orientation: Person, Place, Time and Situation Level of Consciousness: Alert Patient Behavior: Talkative and Cooperative Mood Description: Labile Affect Description: Labile Patient Cognition Impaired: Yes Ability to Follow Directions: Good Speech Pattern: Spontaneous Speech, Rambling and Rapid Memory Description: Episodic Impaired Hallucinations: None Delusions: Grandiose Perceptual Disturbances: Depersonalization and Derealization Thought Process: Racing, Illogical and Distracted Thought Content: positive for Flight of Ideas, positive for Circumstantial, positive for Loose Associations and positive for Tangential Abnormal Motor Activity Signs and Symptoms: Restlessness Judgement: Fair Diagnostics Vital Signs (24Hr): Vital Signs - 24 hr 11/01/21 18:00 11/02/21 06:00 11/02/21 09:18 Temperature 97.2 F 96.6 F L 97.3 F Pulse Rate 87 94 93 Respiratory Rate 18 18 18 Blood Pressure 128/76 115/67 128/26 L Pulse Oximetry 96 97 Oxygen Delivery Method Room Air Room Air BMI result Body Mass Index 29.4 Labs Results: 10/14/21 19:01 10/14/21 19:01 Medications Medications Current Medications Acetaminophen (Acetaminophen 325 Mg Tablet) 650 mg PO Q6H PRN PRN Reason: Headache/Pain Mild Scale (1-3) Last Admin: 10/22/21 05:55 Dose: 650 mg Al Hydroxide/Mg Hydroxide (Magnesium Hydrox/Alum Hydrox 30 Ml Oral.Susp) 30 ml PO Q6H PRN PRN Reason: Heartburn/Nausea Albuterol Sulfate (Albuterol Sulfate 90 Mcg 8 Gm Inhaler) 2 puff INHALE RQ4H PRN PRN Reason: Shortness of Breath/Wheezing Ascorbic Acid (Ascorbic Acid 250 Mg Tablet) 250 mg PO DAILY [facility] Last Admin: 11/02/21 09:12 Dose: 250 mg Carbamazepine (Carbamazepine Er 100 Mg Tab.Er.12h) 100 mg PO BID [facility] Last Admin: 11/02/21 09:12 Dose: 100 mg Famotidine (Famotidine 20 Mg Tablet) 20 mg PO Q12H [facility] Last Admin: 11/02/21 09:12 Dose: 20 mg Fluticasone/Vilanterol (Fluticasone/Vilanterol 100/25 Blst.W.Dev) 1 puff INHALE RDAILY [facility] Last Admin: 11/02/21 09:12 Dose: 1 puff Hydroxyzine HCl (Hydroxyzine Hcl 50 Mg Tablet) 50 mg PO Q6H PRN PRN Reason: Anxiety Ibuprofen (Ibuprofen 600 Mg Tablet) 600 mg PO Q8H PRN PRN Reason: Pain, Mild (Pain Scale 1-3) Last Admin: 11/02/21 15:57 Dose: 600 mg Loperamide HCl (Loperamide Hcl 2 Mg Capsule) 2 mg PO Q6H PRN PRN Reason: loose stool Magnesium Hydroxide (Milk Of Magnesia 30 Ml Oral.Susp) 30 ml PO DAILY PRN PRN Reason: Constipation Last Admin: 10/24/21 19:43 Dose: 30 ml Nicotine Polacrilex (Nicotine Polacrilex 2 Mg Gum) 4 mg BUCCAL Q1H PRN PRN Reason: Nicotine Cravings Last Admin: 11/02/21 15:57 Dose: 4 mg Perphenazine (Perphenazine 8 Mg Tablet) 16 mg PO TID [facility] Last Admin: 11/02/21 14:32 Dose: 16 mg Pravastatin Sodium (Pravastatin Sodium 40 Mg Tablet) 40 mg PO BEDTIME [facility] Last Admin: 11/01/21 22:50 Dose: 40 mg Prazosin HCl (Prazosin Hcl 1 Mg Capsule) 2 mg PO BEDTIME [facility]; Protocol Last Admin: 11/01/21 22:50 Dose: 2 mg Quetiapine Fumarate (Quetiapine Fumarate 200 Mg Tablet) 200 mg PO BID@0900,1400 [facility] Last Admin: 11/02/21 13:21 Dose: 200 mg Quetiapine Fumarate (Quetiapine Fumarate 400 Mg Tablet) 400 mg PO BEDTIME [facility] Last Admin: 11/01/21 22:50 Dose: 400 mg Tamsulosin HCl (Tamsulosin Hcl 0.4 Mg Capsule) 0.4 mg PO BEDTIME [facility] Last Admin: 11/01/21 22:50 Dose: 0.4 mg Trazodone HCl (Trazodone Hcl 100 Mg Tablet) 100 mg PO BEDTIME [facility] Last Admin: 11/01/21 22:51 Dose: 100 mg Trazodone HCl (Trazodone Hcl 50 Mg Tablet) 50 mg PO BEDTIME PRN PRN Reason: continued insomnia Last Admin: 10/31/21 22:21 Dose: 50 mg Vitamin E (Vitamin E (Dl,Tocopheryl Acet) 180 Mg (400 Unit) Capsule) 180 mg PO BID [facility] Last Admin: 11/02/21 09:12 Dose: 180 mg Allergies Allergies Allergy/AdvReac Type Severity Reaction Status Date / Time divalproex sodium Allergy Severe PANCREATITI Verified 09/24/21 09:22 [From DEPAKOTE] S haloperidol [From Haldol] Allergy Intermediate DYSTONIC Verified 09/24/21 09:22 REACTION Assessment & Plan Assessment & Plan (1) Schizoaffective disorder: Status: Acute Code(s): F25.9 - Schizoaffective disorder, unspecified Plan Patient is a 51-year-old male with history of schizoaffective disorder who presents for increasing symptoms and med noncompliance in the face of his father's recent . Patient reports that his father this past September; he's sad about it but shared a fond memory with freelance copywriter. Since then he stopped taking Clozaril and lithium -patient has odd behaviors, disorganized speech and is [id number] in manic due to the combined effect of dealing with father and coming off Clozaril and lithium; patient is pleasant and friendly however -patient willing to start Seroquel which he said he took decades ago and was helpful; not willing to try much else at the moment 10/17 patient remains mild to moderately manic with somewhat/bizarre behaviors, internally preoccupied; is friendly and polite otherwise. Would like Seroquel increased. Patient used to be client of [facility]; now that his father is gone he may again require such services. Social Work inquiring 10/18 increasing angry age to patient's dialoguing; a little more intrusive with others and confrontational but still easily redirected. Would like Flomax which he says he took as an outpatient. Not sure if patient has urinary retention or is just holding his urine as he was able to go on his own to avoid being straight cathed. Agrees to increasing Seroquel 8/14 patient reports sleeping well last night; little less intense, a little l ess manic today. Perhaps increased Seroquel dose is taking effect. Will continue to monitor 10/20 pt seems a little more organized in both speech and behavior; will see if he can further stabilize on current Seroquel dose before raising 10/21 remains vacillating between organized/disorganized need more collateral about baseline 10/22 agrees to go up on Seroquel; He is already at a high dose of perphenazine; if patient does not further stabilize and go back to sleeping will have to consider another medication 10/25 Not sleeping; does not want to get back on clozapine even at a very low dose. Says prefers Thorazine if needed. Still disorganized with speech and behavior though less manicky than on admission 10/26 again not sleeping; patient a little more edgy and irritable today. Will try to help patient sleep with increased trazodone; hoping not to have to add another antipsychotic 10/28 patient irritable; agrees to retry lithium at a low dose to see if it can augment Seroquel and be enough. He says he gets diarrhea he is going to stop lithium 10/29 Pt continues lithium trial. Will trial prazosin for nightmares, hyperarousal.d/c lithium, 10/30 start tegretol ER 100 mg BID for mood stability 10/31 continue tegretol ER trial, denies adverse effects 11/01/21 Continue current plan of care 11/02/21 Continue current plan of care Plan: CV Q 15 minute checks START [place] ER 300mgmg qhs; ER which can mitigate side-effects; will see if tolerates Continue Flomax 0.4 mg q.h.s.; patient finds helpful Continue perphenazine 16 mg t.i.d. Continue Seroquel 200mg BID 0900/1400 and Continue Seroquel 400mg q.h.s.; INCREASED TO trazodone 100mg qhs scheduled with 50mg prn Will continue to use collateral Regarding patient's baseline re-application for [facility]H/ACCS services I spent minutes with the patient and/or on the patient floor today, greater than?50% of which was spent counseling/coordinating care. Patient educated on: therapeutic strategies Informed Consent: further education needed Reason for contiued inpatient stay Substantial Risk for: inability to function and rapid decompensation
[2021-11-02 18:00] VITALS: BP 135/77; PULSE 143; RESP 20; TEMP 36.6; O2SAT 96
[2021-11-02] MEDS: Pravastatin Sodium 40 MG TABLET PO (22:42)
[2021-11-02] MEDS: traZODone HCL 100 MG TABLET PO (22:42)
[2021-11-02] MEDS: Tamsulosin HCL 0.4 MG CAPSULE PO (22:42)
[2021-11-02] MEDS: hydrOXYzine HCL 50 MG TABLET PO (22:42)
[2021-11-02] MEDS: Prazosin HCL 1 MG CAPSULE 2 MG PO (22:42)
[2021-11-02] MEDS: QUEtiapine Fumarate 400 MG TABLET PO (22:43)
[2021-11-02] MEDS: Milk of Magnesia 30 ML ORAL.SUSP PO (22:44)
[2021-11-03] MEDS: Nicotine Polacrilex 2 MG GUM 4 MG BUCCAL ×9 (02:23→23:24)
[2021-11-03 06:00] VITALS: BP 115/64; PULSE 94; RESP 16; TEMP 35.9; O2SAT 96
[2021-11-03] MEDS: Ibuprofen 600 MG TABLET PO ×2 (06:58→22:18)
[2021-11-03] MEDS: hydrOXYzine HCL 50 MG TABLET PO ×3 (06:58→22:18)
[2021-11-03] MEDS: Perphenazine 8 MG TABLET 16 MG PO ×3 (08:38→22:17)
[2021-11-03] MEDS: Famotidine 20 MG TABLET PO ×2 (08:38→22:17)
[2021-11-03] MEDS: QUEtiapine Fumarate 200 MG TABLET PO ×2 (08:38→14:40)
[2021-11-03] MEDS: Ascorbic Acid 250 MG TABLET PO (08:38)
[2021-11-03] MEDS: carBAMazepine ER 100 MG TAB.ER.12H PO ×2 (08:38→22:18)
[2021-11-03] MEDS: Fluticasone/Vilanterol 100/25 BLST.W.DEV 1 PUFF INHALE (09:21)
[2021-11-03] MEDS: Vitamin E (Dl,Tocopheryl Acet) 180 MG (400 UNIT) CAPSULE PO ×2 (09:21→22:17)
--- NOTE | 2021-11-03 10:26 | P.PNPSI_ITS ---
Subjective Subjective Date of Service: 11/03/21 Reason For Visit: Schizoaffetive disorder, bipolar type Interim History: Patient reports that he is feeling a lot better. He says the medications he is taking now I really taking him down faster and that he feels a lot less hyper. He still is having trouble sleeping and agrees to increasing trazodone. Patient likes the new medication Tegretol and does not to consider lithium again. Throughout the discussion patient was able to have an organized conversation about his medications and about his past manic behaviors. He also offered to have teletypewriter operator read his journal which he says will give teletypewriter operator a better idea of what is in [his] mind. He says that how covering provider diagnosed him with PTSD and started him on prazosin and that he has not had a nightmare for 3 days. Patient thinks that he is ready to go home but is deferring to treatment team and family's perspective. As the conversation went on, patient did have a navas gential moment of sharing about a traumatic experience surfing. Mental Status Exam Mental Status Exam Narrative: Pt is alert and oriented; behavior is cooperative, calm; mostly organized; patient is not in distress; dressed in hospital attire, unkempt lucero but adequate hygiene; mood is described as a lot better and affect congruent, more calm; eye contact appropriate; Speech normal rate, volume and prosody; no psychomotor agitation present; thought process is more linear and for longer; Thought content is on feeling better, treatment; can still get random and tangential;no SI/HI. Denies AVH; some internal preoccupation; Patients insight and judgment are impaired but improved. Diagnostics Vital Signs (24Hr): Vital Signs - 24 hr 11/02/21 18:00 11/03/21 06:00 Temperature 97.8 F 96.6 F L Pulse Rate 143 H 94 Respiratory Rate 20 16 Blood Pressure 135/77 115/64 Pulse Oximetry 96 96 Oxygen Delivery Method Room Air BMI result Body Mass Index 29.4 Labs Results: 10/14/21 19:01 10/14/21 19:01 Medications Medications Current Medications Acetaminophen (Acetaminophen 325 Mg Tablet) 650 mg PO Q6H PRN PRN Reason: Headache/Pain Mild Scale (1-3) Last Admin: 10/22/21 05:55 Dose: 650 mg Al Hydroxide/Mg Hydroxide (Magnesium Hydrox/Alum Hydrox 30 Ml Oral.Susp) 30 ml PO Q6H PRN PRN Reason: Heartburn/Nausea Albuterol Sulfate (Albuterol Sulfate 90 Mcg 8 Gm Inhaler) 2 puff INHALE RQ4H KS N PRN Reason: Shortness of Breath/Wheezing Ascorbic Acid (Ascorbic Acid 250 Mg Tablet) 250 mg PO DAILY [facility] Last Admin: 11/03/21 08:38 Dose: 250 mg Carbamazepine (Carbamazepine Er 100 Mg Tab.Er.12h) 100 mg PO BID [facility] Last Admin: 11/03/21 08:38 Dose: 100 mg Famotidine (Famotidine 20 Mg Tablet) 20 mg PO Q12H [facility] Last Admin: 11/03/21 08:38 Dose: 20 mg Fluticasone/Vilanterol (Fluticasone/Vilanterol 100/25 Blst.W.Dev) 1 puff INHALE RDAILY [facility] Last Admin: 11/03/21 09:21 Dose: 1 puff Hydroxyzine HCl (Hydroxyzine Hcl 50 Mg Tablet) 50 mg PO Q6H PRN PRN Reason: Anxiety Last Admin: 11/03/21 06:58 Dose: 50 mg Ibuprofen (Ibuprofen 600 Mg Tablet) 600 mg PO Q8H PRN PRN Reason: Pain, Mild (Pain Scale 1-3) Last Admin: 11/03/21 06:58 Dose: 600 mg Loperamide HCl (Loperamide Hcl 2 Mg Capsule) 2 mg PO Q6H PRN PRN Reason: loose stool Magnesium Hydroxide (Milk Of Magnesia 30 Ml Oral.Susp) 30 ml PO DAILY PRN PRN Reason: Constipation Last Admin: 11/02/21 22:44 Dose: 30 ml Nicotine Polacrilex (Nicotine Polacrilex 2 Mg Gum) 4 mg BUCCAL Q1H PRN PRN Reason: Nicotine Cravings Last Admin: 11/03/21 06:59 Dose: 4 mg Perphenazine (Perphenazine 8 Mg Tablet) 16 mg PO TID [facility] Last Admin: 11/03/21 08:38 Dose: 16 mg Pravastatin Sodium (Pravastatin Sodium 40 Mg Tablet) 40 mg PO BEDTIME [facility] Last Admin: 11/02/21 22:42 Dose: 40 mg Prazosin HCl (Prazosin Hcl 1 Mg Capsule) 2 mg PO BEDTIME [facility]; Protocol Last Admin: 11/02/21 22:42 Dose: 2 mg Quetiapine Fumarate (Quetiapine Fumarate 200 Mg Tablet) 200 mg PO BID@0900,1400 [facility] Last Admin: 11/03/21 08:38 Dose: 200 mg Quetiapine Fumarate (Quetiapine Fumarate 400 Mg Tablet) 400 mg PO BEDTIME [facility] Last Admin: 11/02/21 22:43 Dose: 400 mg Tamsulosin HCl (Tamsulosin Hcl 0.4 Mg Capsule) 0.4 mg PO BEDTIME [facility] Last Admin: 11/02/21 22:42 Dose: 0.4 mg Trazodone HCl (Trazodone Hcl 100 Mg Tablet) 100 mg PO BEDTIME [facility] Last Admin: 11/02/21 22:42 Dose: 100 mg Trazodone HCl (Trazodone Hcl 50 Mg Tablet) 50 mg PO BEDTIME PRN PRN Reason: continued insomnia Last Admin: 10/31/21 22:21 Dose: 50 mg Vitamin E (Vitamin E (Dl,Tocopheryl Acet) 180 Mg (400 Unit) Capsule) 180 mg PO BID [facility] Last Admin: 11/03/21 09:21 Dose: 180 mg Allergies Allergies Allergy/AdvReac Type Severity Reaction Status Date / Time divalproex sodium Allergy Severe PANCREATITI Verified 09/24/21 09:22 [From DEPAKOTE] S haloperidol [From Haldol] Allergy Intermediate DYSTONIC Verified 09/24/21 09:22 REACTION Assessment & Plan Assessment & Plan (1) Schizoaffective disorder: Status: Acute Code(s): F25.9 - Schizoaffective disorder, unspecified Plan Patient is a 51-year-old male with history of schizoaffective disorder who presents for increasing symptoms and med noncompliance in the face of his father's recent . Patient reports that his father this past September; he's sad about it but shared a fond memory with teletypewriter operator. Since then he stopped taking Clozaril and lithium -patient has odd behaviors, disorganized speech and is [id number] in manic due to the combined effect of dealing with father and coming off Clozaril and lithium; patient is pleasant and friendly however -patient willing to start Seroquel which he said he took decades ago and was helpful; not willing to try much else at the moment 10/17 patient remains mild to moderately manic with somewhat/bizarre behaviors, internally preoccupied; is friendly and polite otherwise. Would like Seroquel increased. Patient used to be client of [facility]; now that his father is gone he may again require such services. Social Work inquiring 10/18 increasing angry age to patient's dialoguing; a little more intrusive with others and confrontational but still easily redirected. Would like Flomax which he says he took as an outpatient. Not sure if patient has urinary retention or is just holding his urine as he was able to go on his own to avoid being straight cathed. Agrees to increasing Seroquel 10/19 patient reports sleeping well last night; little less intense, a little less manic today. Perhaps increased Seroquel dose is taking effect. Will continue to monitor 10/20 pt seems a little more organized in both speech and behavior; will see if he can further stabilize on current Seroquel dose before raising 10/21 remains vacillating between organized/disorganized need more collateral about baseline 10/22 agrees to go up on Seroquel; He is already at a high dose of perphenazine; if patient does not further stabilize and go back to sleeping will have to consider another medication 10/25 Not sleeping; does not want to get back on clozapine even at a very low dose. Says prefers Thorazine if needed. Still disorganized with speech and behavior though less manicky than on admission 10/26 again not sleeping; patient a little more edgy and irritable today. Will try to help patient sleep with increased trazodone; hoping not to have to add another antipsychotic 10/28 patient irritable; agrees to retry lithium at a low dose to see if it can augment Seroquel and be enough. He says he gets diarrhea he is going to stop lithium 10/29 Pt continues lithium trial. Will trial prazosin for nightmares, hyperarousal.d/c lithium, 10/30 start tegretol ER 100 mg BID for mood stability 10/31 continue tegretol ER trial, denies adverse effects 11/01/21 Continue current plan of care 11/02/21 Continue current plan of care 11/03/21 patient did not tolerate lithium; was started on Tegretol and reports he is feeling a lot better and less manic. Patient does is fact seem more organ ized in speech and remains so for longer. No nightmares since starting prazosin. Trouble sleeping and agrees to increase trazodone. Discussed medication dosing and side effects and patient understands and agrees to leave things the way they are for now. Will again get collateral on patient's gayle raj. [facility] being set up Plan: CV Q 15 minute checks Tegretol ER 100 mg b.i.d. Prazosin 1 mg q.h.s. for nightmares Continue Flomax 0.4 mg q.h.s.; patient finds helpful Continue perphenazine 16 mg t.i.d. Continue Seroquel 200mg BID 0900/1400 and Continue Seroquel 400mg q.h.s.; INCREASED TO trazodone 150mg qhs scheduled with 50mg prn Will continue to use collateral Regarding patient's baseline re-application for [facility] services I spent minutes with the patient and/or on the patient floor today, greater than?50% of which was spent counseling/coordinating care. Patient educated on: diagnosis and medication risk/benefits Informed Consent: understands Reason for contiued inpatient stay Substantial Risk for: stable for discharge
[2021-11-03 21:30] VITALS: BP 147/93; PULSE 83; RESP 16; TEMP 36.6; O2SAT 98
[2021-11-03] MEDS: Tamsulosin HCL 0.4 MG CAPSULE PO (22:17)
[2021-11-03] MEDS: Prazosin HCL 1 MG CAPSULE 2 MG PO (22:17)
[2021-11-03] MEDS: QUEtiapine Fumarate 400 MG TABLET PO (22:17)
[2021-11-03] MEDS: traZODone HCL 50 MG TABLET 150 MG PO (22:18)
[2021-11-03] MEDS: Pravastatin Sodium 40 MG TABLET PO (22:18)
[2021-11-04] MEDS: hydrOXYzine HCL 50 MG TABLET PO ×2 (05:18→13:18)
[2021-11-04] MEDS: Nicotine Polacrilex 2 MG GUM 4 MG BUCCAL ×5 (05:18→22:01)
[2021-11-04 06:00] VITALS: BP 121/72; PULSE 86; RESP 18; TEMP 36.4; O2SAT 97
[2021-11-04] MEDS: Vitamin E (Dl,Tocopheryl Acet) 180 MG (400 UNIT) CAPSULE PO ×2 (07:52→19:46)
[2021-11-04] MEDS: Ascorbic Acid 250 MG TABLET PO (07:52)
[2021-11-04] MEDS: Perphenazine 8 MG TABLET 16 MG PO ×3 (07:52→19:45)
[2021-11-04] MEDS: carBAMazepine ER 100 MG TAB.ER.12H PO ×2 (07:52→19:44)
[2021-11-04] MEDS: Famotidine 20 MG TABLET PO ×2 (07:52→19:45)
[2021-11-04] MEDS: QUEtiapine Fumarate 200 MG TABLET PO ×2 (07:52→13:18)
[2021-11-04] MEDS: Albuterol Sulfate 90 MCG 8 GM INHALER 2 PUFF INHALE (07:57)
[2021-11-04] MEDS: Fluticasone/Vilanterol 100/25 BLST.W.DEV 1 PUFF INHALE (08:41)
[2021-11-04 08:45] LABS: MANUAL DIFF FLAG NO
[2021-11-04 08:50] LABS: Basophils Percent Auto 0.5 % (0-2); Eosinophils Absolute Auto 0.1 X10*3/uL (0.0-0.4); Eosinophils Percent Auto 1.1 % (0-4); Hematocrit 40.1 % (42.0-52.0); Hemoglobin 13.4 g/dl (14.0-18.0); Imm Gran Abs Auto 0.03 X10*3/uL (0.00-0.03); Imm Gran Pct Auto 0.5 % (0.0-0.4); Lymphocytes Absolute Auto 1.6 X10*3/uL (1.2-4.9); Lymphocytes Percent Auto 24.9 % (20-40); Mean Corpuscular HGB Conc 33.4 g/dl (31.0-36.0); Mean Corpuscular Hemoglobin 31.4 pg (27.0-33.0); Mean Corpuscular Volume 93.9 fL (80.0-98.0); Mean Platelet Volume 10.6 fL (9.4-12.4); Monocytes Absolute Auto 0.6 X10*3/uL (0.1-1.2); Neutrophils Absolute Auto 4.1 x10*3/uL (2.0-8.3); Platelet Count 208 X10*3/uL (160-400); Red Blood Count 4.27 X10*6/uL (4.60-5.80); Red Cell Distribution Width 13.1 % (11.0-16.0); White Blood Count 6.5 X10*3/uL (4.8-10.8)
--- NOTE | 2021-11-04 09:04 | P.PNPSI_ITS ---
Subjective Subjective Date of Service: 11/04/21 Reason For Visit: Schizoaffetive disorder, bipolar type Interim History: Pt Slept better last night. Less odd in the milieu. Patient made an inappropriate joke with instructional writer but was redirectable. Mental Status Exam Mental Status Exam Narrative: Pt is alert and oriented; behavior is cooperative, calm; mostly organized; patient is not in distress; dressed in hospital attire, unkempt lucero but adequate hygiene; mood is described as good and affect congruent, more calm; eye contact appropriate; Speech normal rate, volume and prosody; no psychomotor agitation present; thought process is more linear and for longer; Thought content is on feeling better, treatment; can still get random and tangential;no SI/HI. Denies AVH; some internal preoccupation; Patients insight and judgment are impaired but improved and possibly at baseline. Diagnostics Vital Signs (24Hr): Vital Signs - 24 hr 11/03/21 21:30 11/04/21 06:00 Temperature 98 F 97.6 F Pulse Rate 83 86 Respiratory Rate 16 18 Blood Pressure 147/93 H 121/72 Pulse Oximetry 98 97 Oxygen Delivery Method Room Air BMI result Body Mass Index 29.4 Labs Results: 11/04/21 08:25 11/04/21 08:25 Labs: Laboratory Results - last 48 hr 11/04/21 08:25 WBC 6.5 RBC 4.27 L Hgb 13.4 L Hct 40.1 L MCV 93.9 MCH 31.4 MCHC 33.4 RDW 13.1 Plt Count 208 MPV 10.6 Immature Gran % (Auto) 0.5 H Neut % (Auto) 64.0 Lymph % (Auto) 24.9 Randolph % (Auto) 9.0 Eos % (Auto) 1.1 Baso % (Auto) 0.5 Lymph # (Auto) 1.6 Randolph # (Auto) 0.6 Eos # (Auto) 0.1 Baso # (Auto) 0.0 Abs Immat Gran (auto) 0.03 Absolute Neuts (auto) 4.1 Absolute Nucleated RBC 0.000 Nucleated RBC % (auto) 0.0 Medications Medications Current Medications Acetaminophen (Acetaminophen 325 Mg Tablet) 650 mg PO Q6H PRN PRN Reason: Headache/Pain Mild Scale (1-3) Last Admin: 10/22/21 05:55 Dose: 650 mg Al Hydroxide/Mg Hydroxide (Magnesium Hydrox/Alum Hydrox 30 Ml Oral.Susp) 30 ml PO Q6H PRN PRN Reason: Heartburn/Nausea Albuterol Sulfate (Albuterol Sulfate 90 Mcg 8 Gm Inhaler) 2 puff INHALE RQ4H PRN PRN Reason: Shortness of Breath/Wheezing Last Admin: 11/04/21 07:57 Dose: 2 puff Ascorbic Acid (Ascorbic Acid 250 Mg Tablet) 250 mg PO DAILY [facility] Last Admin: 11/04/21 07:52 Dose: 250 mg Carbamazepine (Carbamazepine Er 100 Mg Tab.Er.12h) 100 mg PO BID [facility] Last Admin: 11/04/21 07:52 Dose: 100 mg Famotidine (Famotidine 20 Mg Tablet) 20 mg PO Q12H [facility] Last Admin: 11/04/21 07:52 Dose: 20 mg Fluticasone/Vilanterol (Fluticasone/Vilanterol 100/25 Blst.W.Dev) 1 puff INHALE RDAILY [facility] Last Admin: 11/04/21 08:41 Dose: 1 puff Hydroxyzine HCl (Hydroxyzine Hcl 50 Mg Tablet) 50 mg PO Q6H PRN PRN Reason: Anxiety Last Admin: 11/04/21 05:18 Dose: 50 mg Ibuprofen (Ibuprofen 600 Mg Tablet) 600 mg PO Q8H PRN PRN Reason: Pain, Mild (Pain Scale 1-3) Last Admin: 11/03/21 22:18 Dose: 600 mg Loperamide HCl (Loperamide Hcl 2 Mg Capsule) 2 mg PO Q6H PRN PRN Reason: loose stool Magnesium Hydroxide (Milk Of Magnesia 30 Ml Oral.Susp) 30 ml PO DAILY PRN PRN Reason: Constipation Last Admin: 11/02/21 22:44 Dose: 30 ml Nicotine Polacrilex (Nicotine Polacrilex 2 Mg Gum) 4 mg BUCCAL Q1H PRN PRN Reason: Nicotine Cravings Last Admin: 11/04/21 07:53 Dose: 4 mg Perphenazine (Perphenazine 8 Mg Tablet) 16 mg PO TID [facility] Last Admin: 11/04/21 07:52 Dose: 16 mg Pravastatin Sodium (Pravastatin Sodium 40 Mg Tablet) 40 mg PO BEDTIME [facility] Last Admin: 11/03/21 22:18 Dose: 40 mg Prazosin HCl (Prazosin Hcl 1 Mg Capsule) 2 mg PO BEDTIME [facility]; Protocol Last Admin: 11/03/21 22:17 Dose: 2 mg Quetiapine Fumarate (Quetiapine Fumarate 200 Mg Tablet) 200 mg PO BID@0900,1400 [facility] Last Admin: 11/04/21 07:52 Dose: 200 mg Quetiapine Fumarate (Quetiapine Fumarate 400 Mg Tablet) 400 mg PO BEDTIME [facility] Last Admin: 11/03/21 22:17 Dose: 400 mg Tamsulosin HCl (Tamsulosin Hcl 0.4 Mg Capsule) 0.4 mg PO BEDTIME [facility] Last Admin: 11/03/21 22:17 Dose: 0.4 mg Trazodone HCl (Trazodone Hcl 50 Mg Tablet) 50 mg PO BEDTIME PRN PRN Reason: continued insomnia Last Admin: 10/31/21 22:21 Dose: 50 mg Trazodone HCl (Trazodone Hcl 50 Mg Tablet) 150 mg PO BEDTIME [facility] Last Admin: 11/03/21 22:18 Dose: 150 mg Vitamin E (Vitamin E (Dl,Tocopheryl Acet) 180 Mg (400 Unit) Capsule) 180 mg PO BID [facility] Last Admin: 11/04/21 07:52 Dose: 180 mg Allergies Allergies Allergy/AdvReac Type Severity Reaction Status Date / Time divalproex sodium Allergy Severe PANCREATITI Verified 09/24/21 09:22 [From DEPAKOTE] S haloperidol [From Haldol] Allergy Intermediate DYSTONIC Verified 09/24/21 09:22 REACTION Assessment & Plan Assessment & Plan (1) Schizoaffective disorder: Status: Acute Code(s): F25.9 - Schizoaffective disorder, unspecified Plan Patient is a 51-year-old male with history of schizoaffective disorder who presents for increasing symptoms and med noncompliance in the face of his father's recent . Patient reports that his father this past September; he's sad about it but shared a fond memory with instructional writer. Since then he stopped taking Clozaril and lithium -patient has odd behaviors, disorganized speech and is [id number] in manic due to the combined effect of dealing with father and coming off Clozaril and lithium; patient is pleasant and friendly however -patient willing to start Seroquel which he said he took decades ago and was helpful; not willing to try much else at the moment 10/17 patient remains mild to moderately manic with somewhat/bizarre behaviors, internally preoccupied; is friendly and polite otherwise. Would like Seroquel increased. Patient used to be client of [facility]; now that his father is gone he may again require such services. Social Work inquiring 10/18 increasing angry age to patient's dialoguing; a little more intrusive with others and confrontational but still easily redirected. Would like Flomax which he says he took as an outpatient. Not sure if patient has urinary retention or is just holding his urine as he was able to go on his own to avoid being straight cathed. Agrees to increasing Seroquel 10/19 patient reports sleeping well last night; little less intense, a little less manic today. Perhaps increased Seroquel dose is taking effect. Will continue to monitor 10/20 pt seems a little more organized in both speech and behavior; will see if he can further stabilize on current Seroquel dose before raising 10/21 remains vacillating between organized/disorganized need more collateral about baseline 10/22 agrees to go up on Seroquel; He is already at a high dose of perphenazine; if patient does not further stabilize and go back to sleeping will have to consider another medication 10/25 Not sleeping; does not want to get back on clozapine even at a very low dose. Says prefers Thorazine if needed. Still disorganized with speech and behavior though less manicky than on admission 10/26 again not sleeping; patient a little more edgy and irritable today. Will try to help patient sleep with increased trazodone; hoping not to have to add another antipsychotic 10/28 patient irritable; agrees to retry lithium at a low dose to see if it can augment Seroquel and be enough. He says he gets diarrhea he is going to stop li thium 10/29 Pt continues lithium trial. Will trial prazosin for nightmares, hyperarousal.d/c lithium, 10/30 start tegretol ER 100 mg BID for mood stability 10/31 continue tegretol ER trial, denies adverse effects 11/01/21 Continue current plan of care 11/02/21 Continue current plan of care 11/03/21 patient did not tolerate lithium; was started on Tegretol and reports he is feeling a lot better and less manic. Patient does is fact seem more organized in speech and remains so for longer. No nightmares since starting prazosin. Trouble sleeping and agrees to increase trazodone. Discussed medication dosing and side effects and patient understands and agrees to leave things the way they are for now. Will again get collateral on patient's baseline. [facility] being set up 11/04 slept through night last night; remains cooperative overall organized. Plan: CV Q 15 minute checks Tegretol ER 100 mg b.i.d. LABS reviewed: CBC, Lytes, Liver WNL Tegeretol level: 2.7 Which is subtherapeutic, however patient seems to be stable; will leave here for now this medication can be titrated as an outpatient if needed Prazosin 1 mg q.h.s. for nightmares Continue Flomax 0.4 mg q.h.s.; patient finds helpful Continue perphenazine 16 mg t.i.d. Continue Seroquel 200mg BID 0900/1400 and Continue Seroquel 400mg q.h.s.; INCREASED TO trazodone 150mg qhs scheduled with 50mg prn Will continue to use collateral Regarding patient's baseline re-application for [facility]/ACCS services I spent minutes with the patient and/or on the patient floor today, greater than?50% of which was spent counseling/coordinating care. Patient educated on: diagnosis Informed Consent: understands Reason for contiued inpatient stay Substantial Risk for: stable for discharge
[2021-11-04 09:09] LABS: Alanine Aminotransferase 34 U/L (0-40); Albumin Level 4.4 g/dL (3.5-5.0); Alkaline Phosphatase 72 U/L (39-117); Anion Gap 12 (12-20); Aspartate Amino Transferase 22 U/L (5-37); Bilirubin Direct 0.3 mg/dL (0.0-0.5); Bilirubin Total 0.7 mg/dL (0.0-1.0); Carbon Dioxide 26 mmol/L (22-29); Chloride 105 mmol/L (96-108); Potassium 4.8 mmol/L (3.3-5.1); Sodium 138 mmol/L (135-145); Total Protein 6.8 g/dL (6.5-8.0)
[2021-11-04 10:28] LABS: Carbamazepine Tegretol 2.7 mcg/mL (5.0-12.0)
--- NOTE | 2021-11-04 10:57 | TAR.NOTE ---
critical lab value of 2.7 MD cruz aware
[2021-11-04] MEDS: Ibuprofen 600 MG TABLET PO (13:17)
[2021-11-04 18:00] VITALS: BP 133/77; PULSE 88; TEMP 36.8; O2SAT 99
[2021-11-04] MEDS: Prazosin HCL 1 MG CAPSULE 2 MG PO (19:44)
[2021-11-04] MEDS: Tamsulosin HCL 0.4 MG CAPSULE PO (19:44)
[2021-11-04] MEDS: traZODone HCL 50 MG TABLET 150 MG PO (19:45)
[2021-11-04] MEDS: Pravastatin Sodium 40 MG TABLET PO (19:45)
[2021-11-04] MEDS: QUEtiapine Fumarate 400 MG TABLET PO (19:46)
[2021-11-05] MEDS: Nicotine Polacrilex 2 MG GUM 4 MG BUCCAL ×9 (03:34→22:05)
[2021-11-05] MEDS: Ibuprofen 600 MG TABLET PO ×2 (03:39→18:52)
[2021-11-05] MEDS: hydrOXYzine HCL 50 MG TABLET PO (03:40)
[2021-11-05 05:27] VITALS: BP 121/74; PULSE 77; RESP 18; TEMP 36.6; O2SAT 96
[2021-11-05] MEDS: Famotidine 20 MG TABLET PO ×2 (08:01→20:56)
[2021-11-05] MEDS: Vitamin E (Dl,Tocopheryl Acet) 180 MG (400 UNIT) CAPSULE PO ×2 (08:01→20:57)
[2021-11-05] MEDS: carBAMazepine ER 100 MG TAB.ER.12H PO ×2 (08:01→20:56)
[2021-11-05] MEDS: QUEtiapine Fumarate 200 MG TABLET PO ×2 (08:01→14:05)
[2021-11-05] MEDS: Ascorbic Acid 250 MG TABLET PO (08:01)
[2021-11-05] MEDS: Fluticasone/Vilanterol 100/25 BLST.W.DEV 1 PUFF INHALE (08:01)
[2021-11-05] MEDS: Perphenazine 8 MG TABLET 16 MG PO ×3 (08:01→20:56)
--- NOTE | 2021-11-05 14:05 | HO.PSYCHPN ---
Subjective Subjective Date of Service: 11/05/21 Reason For Visit: Schizoaffetive disorder, bipolar type Interim History: Sat with patient in read patient's poetry from A journal he entitled [employer] which he has been keeping for quite a while; underwriter solicitation director found protrude to be mostly random on associated words. Patient explained them to be just a words the came to his mind. Also looked through the Bible, patient wanting to find certain verses. Patient said he had trouble sleeping last night but does not want any increasing trazodone at this time. He earlier had said something to a staff person to the effect of I am going to torture staff with my mind. Student Life Dean asked what he meant and he said that there are certain staff people and he named 2 specific female staff, who have evil in their eyes... I look at her eyes [which] are so fucking evil... I know they [Eyes] are doing something evil... belittling, controlling. Student Life Dean Tried reality testing which was unsuccessful. No SI or HI. Patient agrees to increase in Tegretol and underwriter solicitation director reviewed dosing with him using [employer] michael. Patient sister will come for family meeting tomorrow Mental Status Exam Mental Status Exam Narrative: Pt is alert and oriented; behavior is cooperative, calm; mostly organized; patient is not in distress; dressed in hospital attire, unkempt lucero but adequate hygiene; mood is described as good and affect congruent, more calm; eye contact appropriate; Speech normal rate, volume and prosody; no psychomotor agitation present; thought process is more linear and for longer; Thought content is on feeling better, treatment; can still get random and tangential; Paranoid and delusional thinking present; no SI/HI. Denies AVH; some internal preoccupation; Patients insight and judgment are Improved but still impaired. Diagnostics Vital Signs (24Hr): Vital Signs - 24 hr 11/04/21 18:00 11/05/21 05:27 Temperature 98.2 F 97.8 F Pulse Rate 88 77 Respiratory Rate 18 Blood Pressure 133/77 121/74 Pulse Oximetry 99 96 Oxygen Delivery Method Room Air BMI result Body Mass Index 29.4 Labs Results: 11/04/21 08:25 11/04/21 08:25 Labs: Laboratory Results - last 48 hr 11/04/21 11/04/21 08:25 08:25 WBC 6.5 RBC 4.27 L Hgb 13.4 L Hct 40.1 L MCV 93.9 MCH 31.4 MCHC 33.4 RDW 13.1 Plt Count 208 MPV 10.6 Immature Gran % (Auto) 0.5 H Neut % (Auto) 64.0 Lymph % (Auto) 24.9 Gregory % (Auto) 9.0 Eos % (Auto) 1.1 Baso % (Auto) 0.5 Lymph # (Auto) 1.6 Gregory # (Auto) 0.6 Eos # (Auto) 0.1 Baso # (Auto) 0.0 Abs Immat Gran (auto) 0.03 Absolute Neuts (auto) 4.1 Absolute Nucleated RBC 0.000 Nucleated RBC % (auto) 0.0 Sodium 138 Potassium 4.8 D Chloride 105 Carbon Dioxide 26 Anion Gap 12 Total Bilirubin 0.7 Direct Bilirubin 0.3 AST 22 ALT 34 Alkaline Phosphatase 72 Total Protein 6.8 Albumin 4.4 Carbamazepine 2.7 L* Medications Medications Current Medications Acetaminophen (Acetaminophen 325 Mg Tablet) 650 mg PO Q6H PRN PRN Reason: Headache/Pain Mild Scale (1-3) Last Admin: 10/22/21 05:55 Dose: 650 mg Al Hydroxide/Mg Hydroxide (Magnesium Hydrox/Alum Hydrox 30 Ml Oral.Susp) 30 ml PO Q6H PRN PRN Reason: Heartburn/Nausea Albuterol Sulfate (Albuterol Sulfate 90 Mcg 8 Gm Inhaler) 2 puff INHALE RQ4H PRN PRN Reason: Shortness of Breath/Wheezing Last Admin: 11/04/21 07:57 Dose: 2 puff Ascorbic Acid (Ascorbic Acid 250 Mg Tablet) 250 mg PO DAILY [facility] Last Admin: 11/05/21 08:01 Dose: 250 mg Carbamazepine (Carbamazepine Er 100 Mg Tab.Er.12h) 150 mg PO BID [facility] Famotidine (Famotidine 20 Mg Tablet) 20 mg PO Q12H [facility] Last Admin: 11/05/21 08:01 Dose: 20 mg Fluticasone/Vilanterol (Fluticasone/Vilanterol 100/25 Blst.W.Dev) 1 puff INHALE RDAILY [facility] Last Admin: 11/05/21 08:01 Dose: 1 puff Hydroxyzine HCl (Hydroxyzine Hcl 50 Mg Tablet) 50 mg PO Q6H PRN PRN Reason: Anxiety Last Admin: 11/05/21 03:40 Dose: 50 mg Ibuprofen (Ibuprofen 600 Mg Tablet) 600 mg PO Q8H PRN PRN Reason: Pain, Mild (Pain Scale 1-3) Last Admin: 11/05/21 03:39 Dose: 600 mg Loperamide HCl (Loperamide Hcl 2 Mg Capsule) 2 mg PO Q6H PRN PRN Reason: loose stool Magnesium Hydroxide (Milk Of Magnesia 30 Ml Oral.Susp) 30 ml PO DAILY PRN PRN Reason: Constipation Last Admin: 11/02/21 22:44 Dose: 30 ml Nicotine Polacrilex (Nicotine Polacrilex 2 Mg Gum) 4 mg BUCCAL Q1H PRN PRN Reason: Nicotine Cravings Last Admin: 11/05/21 11:44 Dose: 4 mg Perphenazine (Perphenazine 8 Mg Tablet) 16 mg PO TID [facility] Last Admin: 11/05/21 08:01 Dose: 16 mg Pravastatin Sodium (Pravastatin Sodium 40 Mg Tablet) 40 mg PO BEDTIME [facility] Last Admin: 11/04/21 19:45 Dose: 40 mg Prazosin HCl (Prazosin Hcl 1 Mg Capsule) 2 mg PO BEDTIME [facility]; Protocol Last Admin: 11/04/21 19:44 Dose: 2 mg Quetiapine Fumarate (Quetiapine Fumarate 200 Mg Tablet) 200 mg PO BID@0900,1400 [facility] Last Admin: 11/05/21 08:01 Dose: 200 mg Quetiapine Fumarate (Quetiapine Fumarate 400 Mg Tablet) 400 mg PO BEDTIME [facility] Last Admin: 11/04/21 19:46 Dose: 400 mg Tamsulosin HCl (Tamsulosin Hcl 0.4 Mg Capsule) 0.4 mg PO BEDTIME [facility] Last Admin: 11/04/21 19:44 Dose: 0.4 mg Trazodone HCl (Trazodone Hcl 50 Mg Tablet) 50 mg PO BEDTIME PRN PRN Reason: continued insomnia Last Admin: 10/31/21 22:21 Dose: 50 mg Trazodone HCl (Trazodone Hcl 50 Mg Tablet) 150 mg PO BEDTIME [facility] Last Admin: 11/04/21 19:45 Dose: 150 mg Vitamin E (Vitamin E (Dl,Tocopheryl Acet) 180 Mg (400 Unit) Capsule) 180 mg PO BID [facility] Last Admin: 11/05/21 08:01 Dose: 180 mg Allergies Allergies Allergy/AdvReac Type Severity Reaction Status Date / Time divalproex sodium Allergy Severe PANCREATITI Verified 09/24/21 09:22 [From DEPAKOTE] S haloperidol [From Haldol] Allergy Intermediate DYSTONIC Verified 09/24/21 09:22 REACTION Assessment & Plan Assessment & Plan (1) Schizoaffective disorder: Status: Acute Code(s): F25.9 - Schizoaffective disorder, unspecified Plan Patient is a 51-year-old male with history of schizoaffective disorder who presents for increasing symptoms and med noncompliance in the face of his father's recent . Patient reports that his father this past September; he's sad about it but shared a fond memory with underwriter solicitation director. Since then he stopped taking Clozaril and lithium -patient has odd behaviors, disorganized speech and is [id number] in manic due to the combined effect of dealing with father and coming off Clozaril and lithium; patient is pleasant and friendly however -patient willing to start Seroquel which he said he took decades ago and was helpful; not willing to try much else at the moment 10/17 patient remains mild to moderately manic with somewhat/bizarre behaviors, internally preoccupied; is friendly and polite otherwise. Would like Seroquel increased. Patient used to be client of [facility]; now that his father is gone he may again require such services. Social Work inquiring 10/18 increasing angry age to patient's dialoguing; a little more intrusive with others and confrontational but still easily redirected. Would like Flomax which he says he took as an outpatient. Not sure if patient has urinary retention or is just holding his urine as he was able to go on his own to avoid being straight cathed. Agrees to increasing Seroquel 10/19 patient reports sleeping well last night; little less intense, a little less manic today. Perhaps increased Seroquel dose is taking effect. Will continue to monitor 10/20 pt seems a little more organized in both speech and behavior; will see if he can further stabilize on current Seroquel dose before raising 10/21 remains vacillating between organized/disorganized need more collateral about baseline 10/22 agrees to go up on Seroquel; He is already at a high dose of perphenazine; if patient does not further stabilize and go back to sleeping will have to consider another medication 10/25 Not sleeping; does not want to get back on clozapine even at a very low dose. Says prefers Thorazine if needed. Still disorganized with speech and behavior though less manicky than on admission 10/26 again not sleeping; patient a little more edgy and irritable today. Will try to help patient sleep with increased trazodone; hoping not to have to add another antipsychotic 10/28 patient irritable; agrees to retry lithium at a low dose to see if it can augment Seroquel and be enough. He says he gets diarrhea he is going to stop lithium 10/29 Pt continues lithium trial. Will trial prazosin for nightmares, hyperarousal.d/c lithium, 10/30 start tegretol ER 100 mg BID for mood stability 10/31 continue tegretol ER trial, denies adverse effects 11/01/21 Continue current plan of care 11/02/21 Continue current plan of care 11/03/21 patient did not tolerate lithium; was started on Tegretol and reports he is feeling a lot better and less manic. Patient does is fact seem more organized in speech and remains so for longer. No nightmares since starting prazosin. Trouble sleeping and agrees to increase trazodone. Discussed medication dosing and side effects and patient understands and agrees to leave things the way they are for now. Will again get collateral on patient's baseline. [facility] being set up 11/04 slept through night last night; remains cooperative overall organized. 11/05 Given continued paranoid delusional thinking, discussed and patient agreed with increasing Tegretol Plan: CV Q 15 minute checks INCREAsE TO Tegretol ER 100 mg daily AND 200mg qhs LABS reviewed: CBC, Lytes, Liver WNL Tegeretol level (on 100mg bid): 2.7 subtherapeutic, Prazosin 1 mg q.h.s. for nightmares Continue Flomax 0.4 mg q.h.s.; patient finds helpful Continue perphenazine 16 mg t.i.d. Continue Seroquel 200mg BID 0900/1400 and Continue Seroquel 400mg q.h.s.; INCREASED TO trazodone 150mg qhs scheduled with 50mg prn Will continue to use collateral Regarding patient's baseline re-application for [facility] services I spent minutes with the patient and/or on the patient floor today, greater than?50% of which was spent counseling/coordinating care. Patient educated on: diagnosis and medication risk/benefits Informed Consent: understands Reason for contiued inpatient stay Substantial Risk for: med/psych decompensation
[2021-11-05 17:11] VITALS: BP 129/76; PULSE 84; RESP 16; TEMP 36; O2SAT 97
[2021-11-05] MEDS: traZODone HCL 50 MG TABLET 150 MG PO (20:55)
[2021-11-05] MEDS: Pravastatin Sodium 40 MG TABLET PO (20:55)
[2021-11-05] MEDS: Tamsulosin HCL 0.4 MG CAPSULE PO (20:55)
[2021-11-05] MEDS: QUEtiapine Fumarate 400 MG TABLET PO (20:56)
[2021-11-05] MEDS: carBAMazepine ER 200 MG TAB.ER.12H PO (20:56)
[2021-11-05] MEDS: Prazosin HCL 1 MG CAPSULE 2 MG PO (20:59)
[2021-11-06] MEDS: hydrOXYzine HCL 50 MG TABLET PO ×4 (00:15→22:30)
[2021-11-06] MEDS: Nicotine Polacrilex 2 MG GUM 4 MG BUCCAL ×8 (04:35→21:57)
[2021-11-06 05:47] VITALS: BP 128/74; PULSE 80; TEMP 36.2; O2SAT 99
[2021-11-06] MEDS: Ibuprofen 600 MG TABLET PO ×2 (06:29→16:24)
[2021-11-06] MEDS: Famotidine 20 MG TABLET PO ×2 (08:07→22:28)
[2021-11-06] MEDS: Fluticasone/Vilanterol 100/25 BLST.W.DEV 1 PUFF INHALE (08:07)
[2021-11-06] MEDS: Perphenazine 8 MG TABLET 16 MG PO ×3 (08:07→22:28)
[2021-11-06] MEDS: Vitamin E (Dl,Tocopheryl Acet) 180 MG (400 UNIT) CAPSULE PO ×2 (08:07→22:30)
[2021-11-06] MEDS: QUEtiapine Fumarate 200 MG TABLET PO ×2 (08:07→13:59)
[2021-11-06] MEDS: Ascorbic Acid 250 MG TABLET PO (08:08)
[2021-11-06] MEDS: carBAMazepine ER 100 MG TAB.ER.12H PO ×2 (08:08→16:04)
[2021-11-06 08:28] VITALS: BMI 29.3
--- NOTE | 2021-11-06 15:23 | P.PNPSI_ITS ---
Subjective Subjective Date of Service: 11/06/21 Reason For Visit: Schizoaffetive disorder, bipolar type Interim History: Family meeting with patient's sister. Sister feels that Patient still revved up to which real estate underwriter agrees. Patient again talked about certain staff people having evil eyes however he says that today they must be behaving better because they know people are watching. Patient hardly slept last night however he said he did get a total of 6 hours since he takes naps during the day. At home it is his normal routine to go to sleep early in get up around 02:00 and read his books. During the meeting patient was very tangential and talking about various historical events with his father, with other kids, and was difficult to redirect to the discussion. He agrees to increased titration of Tegretol. Sister thinks to some degree that acuity on the unit is somewhat triggering for patient and that at home where it is more calm he will do better; however she agrees that medication needs to be titrated further before he stable enough Mental Status Exam Mental Status Exam Narrative: Pt is alert and oriented; behavior is cooperative, somewhat hyper; more disorganized today; patient is not in distress; dressed in casual attire, scruffy facial hair but adequate hygiene; mood is described as ok and affect more expansive; eye contact appropriate; Speech moderately pressured; normal volume, prosody; some psychomotor agitation present; thought process is goal oriented on some topics but becomes tangential; Thought content is on various past events; tangential; Paranoid and delusional thinking present; no SI/HI. Denies AVH; some internal preoccupation; Patients insight and judgment are Improved but still impaired. Diagnostics Vital Signs (24Hr): Vital Signs - 24 hr 11/05/21 17:11 11/06/21 05:47 Temperature 96.8 F 97.2 F Pulse Rate 84 80 Respiratory Rate 16 Blood Pressure 129/76 128/74 Pulse Oximetry 97 99 Oxygen Delivery Method Room Air Room Air BMI result Body Mass Index 29.3 Labs Results: 11/04/21 08:25 11/04/21 08:25 Medications Medications Current Medications Acetaminophen (Acetaminophen 325 Mg Tablet) 650 mg PO Q6H PRN PRN Reason: Headache/Pain Mild Scale (1-3) Last Admin: 10/22/21 05:55 Dose: 650 mg Al Hydroxide/Mg Hydroxide (Magnesium Hydrox/Alum Hydrox 30 Ml Oral.Susp) 30 ml PO Q6H PRN PRN Reason: Heartburn/Nausea Albuterol Sulfate (Albuterol Sulfate 90 Mcg 8 Gm Inhaler) 2 puff INHALE RQ4H PRN PRN Reason: Shortness of Breath/Wheezing Last Admin: 11/04/21 07:57 Dose: 2 puff Artificial Tears (Artificial Tears 15 Ml Drops) 2 drop EYE-BOTH Q4H PRN PRN Reason: Dry Eyes Ascorbic Acid (Ascorbic Acid 250 Mg Tablet) 250 mg PO DAILY [facility] Last Admin: 11/06/21 08:08 Dose: 250 mg Famotidine (Famotidine 20 Mg Tablet) 20 mg PO Q12H [facility] Last Admin: 11/06/21 08:07 Dose: 20 mg Fluticasone/Vilanterol (Fluticasone/Vilanterol 100/25 Blst.W.Dev) 1 puff INHALE RDAILY [facility] Last Admin: 11/06/21 08:07 Dose: 1 puff Hydroxyzine HCl (Hydroxyzine Hcl 50 Mg Tablet) 50 mg PO Q6H PRN PRN Reason: Anxiety Last Admin: 11/06/21 13:40 Dose: 50 mg Ibuprofen (Ibuprofen 600 Mg Tablet) 600 mg PO Q8H PRN PRN Reason: Pain, Mild (Pain Scale 1-3) Last Admin: 11/06/21 06:29 Dose: 600 mg Loperamide HCl (Loperamide Hcl 2 Mg Capsule) 2 mg PO Q6H PRN PRN Reason: loose stool Magnesium Hydroxide (Milk Of Magnesia 30 Ml Oral.Susp) 30 ml PO DAILY PRN PRN Reason: Constipation Last Admin: 11/02/21 22:44 Dose: 30 ml Nicotine Polacrilex (Nicotine Polacrilex 2 Mg Gum) 4 mg BUCCAL Q1H PRN PRN Reason: Nicotine Cravings Last Admin: 11/06/21 13:40 Dose: 4 mg Perphenazine (Perphenazine 8 Mg Tablet) 16 mg PO TID [facility] Last Admin: 11/06/21 13:59 Dose: 16 mg Pravastatin Sodium (Pravastatin Sodium 40 Mg Tablet) 40 mg PO BEDTIME [facility] Last Admin: 11/05/21 20:55 Dose: 40 mg Prazosin HCl (Prazosin Hcl 1 Mg Capsule) 2 mg PO BEDTIME [facility]; Protocol Last Admin: 08/31/22 20:59 Dose: 2 mg Quetiapine Fumarate (Quetiapine Fumarate 200 Mg Tablet) 200 mg PO BID@0900,1400 [facility] Last Admin: 11/06/21 13:59 Dose: 200 mg Quetiapine Fumarate (Quetiapine Fumarate 400 Mg Tablet) 400 mg PO BEDTIME [facility] Last Admin: 11/05/21 20:56 Dose: 400 mg Tamsulosin HCl (Tamsulosin Hcl 0.4 Mg Capsule) 0.4 mg PO BEDTIME [facility] Last Admin: 11/05/21 20:55 Dose: 0.4 mg Trazodone HCl (Trazodone Hcl 50 Mg Tablet) 50 mg PO BEDTIME PRN PRN Reason: continued insomnia Last Admin: 10/31/21 22:21 Dose: 50 mg Trazodone HCl (Trazodone Hcl 50 Mg Tablet) 150 mg PO BEDTIME [facility] Last Admin: 11/05/21 20:55 Dose: 150 mg Vitamin E (Vitamin E (Dl,Tocopheryl Acet) 180 Mg (400 Unit) Capsule) 180 mg PO BID [facility] Last Admin: 11/06/21 08:07 Dose: 180 mg Allergies Allergies Allergy/AdvReac Type Severity Reaction Status Date / Time divalproex sodium Allergy Severe PANCREATITI Verified 09/24/21 09:22 [From DEPAKOTE] S haloperidol [From Haldol] Allergy Intermediate DYSTONIC Verified 09/24/21 09:22 REACTION Assessment & Plan Assessment & Plan (1) Schizoaffective disorder: Status: Acute Code(s): F25.9 - Schizoaffective disorder, unspecified Plan Patient is a 51-year-old male with history of schizoaffective disorder who presents for increasing symptoms and med noncompliance in the face of his father's recent . Patient reports that his father this past September; he's sad about it but shared a fond memory with real estate underwriter. Since then he stopped taking Clozaril and lithium -patient has odd behaviors, disorganized speech and is [id number] in manic due to the combined effect of dealing with father and coming off Clozaril and lithium; patient is pleasant and friendly however -patient willing to start Seroquel which he said he took decades ago and was helpful; not willing to try much else at the moment 10/17 patient remains mild to moderately manic with somewhat/bizarre behaviors, internally preoccupied; is friendly and polite otherwise. Would like Seroquel increased. Patient used to be client of [facility]; now that his father is gone he may again require such services. Social Work inquiring 10/18 increasing angry age to patient's dialoguing; a little more intrusive with others and confrontational but still easily redirected. Would like Flomax which he says he took as an outpatient. Not sure if patient has urinary retention or is just holding his urine as he was able to go on his own to avoid being straight cathed. Agrees to increasing Seroquel 10/19 patient reports sleeping well last night; little less intense, a little less manic today. Perhaps increased Seroquel dose is taking effect. Will continue to monitor 10/20 pt seems a little more organized in both speech and behavior; will see if he can further stabilize on current Seroquel dose before raising 10/21 remains vacillating between organized/disorganized need more collateral about baseline 10/22 agrees to go up on Seroquel; He is already at a high dose of perphenazine; if patient does not further stabilize and go back to sleeping will have to consider another medication 10/25 Not sleeping; does not want to get back on clozapine even at a very low dose. Says prefers Thorazine if needed. Still disorganized with speech and behavior though less manicky than on admission 10/26 again not sleeping; patient a little more edgy and irritable today. Will try to help patient sleep with increased trazodone; hoping not to have to add another antipsychotic 10/28 patient irritable; agrees to retry lithium at a low dose to see if it can augment Seroquel and be enough. He says he gets diarrhea he is going to stop lithium 10/29 Pt continues lithium trial. Will trial prazosin for nightmares, hyperarousal.d/c lithium, 10/30 start tegretol ER 100 mg BID for mood stability 10/31 continue tegretol ER trial, denies adverse effects 11/01/21 Continue current plan of care 11/02/21 Continue current plan of care 11/03/21 patient did not tolerate lithium; was started on Tegretol and reports he is feeling a lot better and less manic. Patient does is fact seem more organized in speech and remains so for longer. No nightmares since starting prazosin. Trouble sleeping and agrees to increase trazodone. Discussed medication dosing and side effects and patient understands and agrees to leave things the way they are for now. Will again get collateral on patient's baseline. [facility] being set up 11/04 slept through night last night; remains cooperative overall organized. 11/05 Given continued paranoid delusional thinking, discussed and patient agreed with increasing Tegretol Plan: CV Q 15 minute checks INCREAsE TO Tegretol ER 200mg BID LABS reviewed: CBC, Lytes, Liver WNL Tegeretol level (on 100mg bid): 2.7 subtherapeutic, Prazosin 1 mg q.h.s. for nightmares Continue Flomax 0.4 mg q.h.s.; patient finds helpful Continue perphenazine 16 mg t.i.d. Continue Seroquel 200mg BID 0900/1400 and Continue Seroquel 400mg q.h.s.; INCREASED TO trazodone 150mg qhs scheduled with 50mg prn Will continue to use collateral Regarding patient's baseline re-application for DM/ACCS services I spent minutes with the patient and/or on the patient floor today, greater than?50% of which was spent counseling/coordinating care. Patient educated on: diagnosis and medication risk/benefits Informed Consent: understands Reason for contiued inpatient stay Substantial Risk for: rapid decompensation
[2021-11-06 17:12] VITALS: BP 128/82; PULSE 94; RESP 16; TEMP 36.6; O2SAT 99
[2021-11-06] MEDS: Artificial Tears 15 ML DROPS 2 DROP EYE-BOTH (18:49)
[2021-11-06] MEDS: carBAMazepine ER 200 MG TAB.ER.12H PO (22:28)
[2021-11-06] MEDS: Prazosin HCL 1 MG CAPSULE 2 MG PO (22:29)
[2021-11-06] MEDS: QUEtiapine Fumarate 400 MG TABLET PO (22:29)
[2021-11-06] MEDS: Pravastatin Sodium 40 MG TABLET PO (22:29)
[2021-11-06] MEDS: traZODone HCL 50 MG TABLET 150 MG PO (22:30)
[2021-11-06] MEDS: Tamsulosin HCL 0.4 MG CAPSULE PO (22:30)
[2021-11-06] MEDS: Albuterol Sulfate 90 MCG 8 GM INHALER 2 PUFF INHALE (22:34)
[2021-11-07] MEDS: Nicotine Polacrilex 2 MG GUM 4 MG BUCCAL ×8 (04:05→23:49)
[2021-11-07 05:44] VITALS: BP 138/78; PULSE 80; RESP 16; TEMP 36.3; O2SAT 97
[2021-11-07] MEDS: Perphenazine 8 MG TABLET 16 MG PO ×3 (08:52→19:32)
[2021-11-07] MEDS: Famotidine 20 MG TABLET PO ×2 (08:52→19:30)
[2021-11-07] MEDS: Vitamin E (Dl,Tocopheryl Acet) 180 MG (400 UNIT) CAPSULE PO ×2 (08:52→19:30)
[2021-11-07] MEDS: Ascorbic Acid 250 MG TABLET PO (08:52)
[2021-11-07] MEDS: QUEtiapine Fumarate 200 MG TABLET PO ×2 (08:52→13:24)
[2021-11-07] MEDS: carBAMazepine ER 200 MG TAB.ER.12H PO (08:52)
[2021-11-07] MEDS: Albuterol Sulfate 90 MCG 8 GM INHALER 2 PUFF INHALE (08:59)
[2021-11-07] MEDS: Artificial Tears 15 ML DROPS 2 DROP EYE-BOTH (08:59)
[2021-11-07] MEDS: Fluticasone/Vilanterol 100/25 BLST.W.DEV 1 PUFF INHALE (08:59)
[2021-11-07] MEDS: hydrOXYzine HCL 50 MG TABLET PO ×3 (09:36→23:49)
[2021-11-07] MEDS: Ibuprofen 600 MG TABLET PO ×3 (09:36→23:49)
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
[2021-11-07 16:33] VITALS: BP 125/70; PULSE 102; RESP 18; TEMP 36.7; O2SAT 97
[2021-11-07] MEDS: traZODone HCL 50 MG TABLET 150 MG PO (19:30)
[2021-11-07] MEDS: Tamsulosin HCL 0.4 MG CAPSULE PO (19:31)
[2021-11-07] MEDS: Prazosin HCL 1 MG CAPSULE 2 MG PO (19:31)
[2021-11-07] MEDS: Pravastatin Sodium 40 MG TABLET PO (19:31)
[2021-11-07] MEDS: QUEtiapine Fumarate 400 MG TABLET PO (19:31)
[2021-11-07] MEDS: carBAMazepine ER 100 MG TAB.ER.12H 300 MG PO (19:32)
[2021-11-08] MEDS: Albuterol Sulfate 90 MCG 8 GM INHALER 2 PUFF INHALE ×4 (03:43→20:10)
[2021-11-08] MEDS: Nicotine Polacrilex 2 MG GUM 4 MG BUCCAL ×8 (03:52→21:59)
[2021-11-08] MEDS: hydrOXYzine HCL 50 MG TABLET PO ×3 (03:52→22:45)
[2021-11-08 06:00] VITALS: BP 122/72; PULSE 84; RESP 16; TEMP 36.6; O2SAT 99
[2021-11-08] MEDS: Fluticasone/Vilanterol 100/25 BLST.W.DEV 1 PUFF INHALE (08:38)
[2021-11-08] MEDS: Artificial Tears 15 ML DROPS 2 DROP EYE-BOTH ×3 (08:38→20:14)
[2021-11-08] MEDS: Perphenazine 8 MG TABLET 16 MG PO ×3 (08:39→22:45)
[2021-11-08] MEDS: Ascorbic Acid 250 MG TABLET PO (08:39)
[2021-11-08] MEDS: Famotidine 20 MG TABLET PO ×2 (08:39→22:46)
[2021-11-08] MEDS: Ibuprofen 600 MG TABLET PO ×2 (08:39→18:40)
[2021-11-08] MEDS: carBAMazepine ER 100 MG TAB.ER.12H 300 MG PO ×2 (08:39→22:45)
[2021-11-08] MEDS: Vitamin E (Dl,Tocopheryl Acet) 180 MG (400 UNIT) CAPSULE PO ×2 (08:39→22:45)
[2021-11-08] MEDS: QUEtiapine Fumarate 200 MG TABLET PO ×2 (08:39→13:06)
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
[2021-11-08 16:41] VITALS: BP 152/91; PULSE 96; TEMP 36.7; O2SAT 97
[2021-11-08 22:45] VITALS: BP 162/94; PULSE 85; RESP 14; TEMP 36.9
[2021-11-08] MEDS: Pravastatin Sodium 40 MG TABLET PO (22:45)
[2021-11-08] MEDS: Tamsulosin HCL 0.4 MG CAPSULE PO (22:45)
[2021-11-08] MEDS: Prazosin HCL 1 MG CAPSULE 2 MG PO (22:45)
[2021-11-08] MEDS: QUEtiapine Fumarate 400 MG TABLET PO (22:46)
[2021-11-08] MEDS: traZODone HCL 50 MG TABLET 150 MG PO (22:46)
[2021-11-09] MEDS: Nicotine Polacrilex 2 MG GUM 4 MG BUCCAL ×7 (02:56→22:01)
[2021-11-09] MEDS: Ibuprofen 600 MG TABLET PO ×2 (03:00→16:14)
[2021-11-09] MEDS: Albuterol Sulfate 90 MCG 8 GM INHALER 2 PUFF INHALE ×4 (03:03→20:18)
[2021-11-09] MEDS: Artificial Tears 15 ML DROPS 2 DROP EYE-BOTH ×4 (03:03→20:17)
[2021-11-09] MEDS: hydrOXYzine HCL 50 MG TABLET PO ×3 (05:15→20:16)
[2021-11-09] MEDS: Milk of Magnesia 30 ML ORAL.SUSP PO ×2 (05:18→14:15)
[2021-11-09 06:00] VITALS: BP 116/63; PULSE 73; RESP 16; TEMP 36.4; O2SAT 98
[2021-11-09] MEDS: QUEtiapine Fumarate 200 MG TABLET PO ×2 (09:02→13:05)
[2021-11-09] MEDS: Perphenazine 8 MG TABLET 16 MG PO ×3 (09:02→22:35)
[2021-11-09] MEDS: Vitamin E (Dl,Tocopheryl Acet) 180 MG (400 UNIT) CAPSULE PO ×2 (09:02→22:35)
[2021-11-09] MEDS: Famotidine 20 MG TABLET PO ×2 (09:02→22:34)
[2021-11-09] MEDS: Ascorbic Acid 250 MG TABLET PO (09:02)
[2021-11-09] MEDS: Fluticasone/Vilanterol 100/25 BLST.W.DEV 1 PUFF INHALE (09:02)
[2021-11-09] MEDS: carBAMazepine ER 100 MG TAB.ER.12H 300 MG PO ×2 (10:01→22:35)
--- NOTE | 2021-11-09 15:40 | P.PNPSI_ITS ---
Subjective Subjective Date of Service: 11/09/21 Reason For Visit: Schizoaffetive disorder, bipolar type Interim History: hyperverbal, making bizarre claims. wandering the halls, seeks out MD several times on unit to inform MD of numerous implausibilities. per staff, verbal aggression with peer, able to be redirected. bizarre statements. attending to ADLs, taking meds. up all NOC. Mental Status Exam Mental Status Exam Narrative: Adequately dressed and groomed.? Cooperative, PMA of pacing the halls.? Speech incr rate, incr amount, nml loudness, nml tone, decr latency.? Thoughts d isorganized and bizarre.? Affect constricted, normo-intense, non-labile.? Mood not assessed.? No SI/HI/AVH expressed. Diagnostics Vital Signs (24Hr): Vital Signs - 24 hr 11/08/21 16:41 11/08/21 22:45 11/09/21 06:00 Temperature 98.1 F 98.5 F 97.6 F Pulse Rate 96 85 73 Respiratory Rate 14 16 Blood Pressure 152/91 H 162/94 H 116/63 Pulse Oximetry 97 98 Oxygen Delivery Method Room Air BMI result Body Mass Index 29.3 Labs Results: 11/04/21 08:25 11/04/21 08:25 Medications Medications Current Medications Acetaminophen (Acetaminophen 325 Mg Tablet) 650 mg PO Q6H PRN PRN Reason: Headache/Pain Mild Scale (1-3) Last Admin: 10/22/21 05:55 Dose: 650 mg Al Hydroxide/Mg Hydroxide (Magnesium Hydrox/Alum Hydrox 30 Ml Oral.Susp) 30 ml PO Q6H PRN PRN Reason: Heartburn/Nausea Albuterol Sulfate (Albuterol Sulfate 90 Mcg 8 Gm Inhaler) 2 puff INHALE RQ4H PRN PRN Reason: Shortness of Breath/Wheezing Last Admin: 11/09/21 09:01 Dose: 2 puff Artificial Tears (Artificial Tears 15 Ml Drops) 2 drop EYE-BOTH Q4H PRN PRN Reason: Dry Eyes Last Admin: 11/09/21 09:01 Dose: 2 drop Ascorbic Acid (Ascorbic Acid 250 Mg Tablet) 250 mg PO DAILY DAVY Last Admin: 11/09/21 09:02 Dose: 250 mg Carbamazepine (Carbamazepine Er 100 Mg Tab.Er.12h) 300 mg PO BID [facility] Last Admin: 11/09/21 10:01 Dose: 300 mg Famotidine (Famotidine 20 Mg Tablet) 20 mg PO Q12H [facility] Last Admin: 11/09/21 09:02 Dose: 20 mg Fluticasone/Vilanterol (Fluticasone/Vilanterol 100/25 Blst.W.Dev) 1 puff INHALE RDAILY [facility] Last Admin: 11/09/21 09:02 Dose: 1 puff Hydroxyzine HCl (Hydroxyzine Hcl 50 Mg Tablet) 50 mg PO Q6H PRN PRN Reason: Anxiety Last Admin: 11/09/21 13:05 Dose: 50 mg Ibuprofen (Ibuprofen 600 Mg Tablet) 600 mg PO Q8H PRN PRN Reason: Pain, Mild (Pain Scale 1-3) Last Admin: 11/09/21 03:00 Dose: 600 mg Loperamide HCl (Loperamide Hcl 2 Mg Capsule) 2 mg PO Q6H PRN PRN Reason: loose stool Magnesium Hydroxide (Milk Of Magnesia 30 Ml Oral.Susp) 30 ml PO DAILY PRN PRN Reason: Constipation Last Admin: 11/09/21 14:15 Dose: 30 ml Nicotine Polacrilex (Nicotine Polacrilex 2 Mg Gum) 4 mg BUCCAL Q1H PRN PRN Reason: Nicotine Cravings Last Admin: 11/09/21 14:16 Dose: 4 mg Perphenazine (Perphenazine 8 Mg Tablet) 16 mg PO TID [facility] Last Admin: 11/09/21 14:16 Dose: 16 mg Pravastatin Sodium (Pravastatin Sodium 40 Mg Tablet) 40 mg PO BEDTIME [facility] Last Admin: 11/08/21 22:45 Dose: 40 mg Prazosin HCl (Prazosin Hcl 1 Mg Capsule) 2 mg PO BEDTIME [facility]; Protocol Last Admin: 11/08/21 22:45 Dose: 2 mg Quetiapine Fumarate (Quetiapine Fumarate 200 Mg Tablet) 200 mg PO BID@0900,1400 [facility] Last Admin: 11/09/21 13:05 Dose: 200 mg Quetiapine Fumarate (Quetiapine Fumarate 400 Mg Tablet) 400 mg PO BEDTIME [facility] Last Admin: 11/08/21 22:46 Dose: 400 mg Tamsulosin HCl (Tamsulosin Hcl 0.4 Mg Capsule) 0.4 mg PO BEDTIME [facility] Last Admin: 11/08/21 22:45 Dose: 0.4 mg Trazodone HCl (Trazodone Hcl 50 Mg Tablet) 50 mg PO BEDTIME PRN PRN Reason: continued insomnia Last Admin: 10/31/21 22:21 Dose: 50 mg Trazodone HCl (Trazodone Hcl 50 Mg Tablet) 150 mg PO BEDTIME [facility] Last Admin: 11/08/21 22:46 Dose: 150 mg Vitamin E (Vitamin E (Dl,Tocopheryl Acet) 180 Mg (400 Unit) Capsule) 180 mg PO BID [facility] Last Admin: 11/09/21 09:02 Dose: 180 mg Allergies Allergies Allergy/AdvReac Type Severity Reaction Status Date / Time divalproex sodium Allergy Severe PANCREATITI Verified 09/24/21 09:22 [From DEPAKOTE] S haloperidol [From Haldol] Allergy Intermediate DYSTONIC Verified 09/24/21 09:22 REACTION Assessment & Plan Assessment & Plan (1) Schizoaffective disorder: Status: Acute Code(s): F25.9 - Schizoaffective disorder, unspecified Plan Patient is a 51-year-old male with history of schizoaffective disorder who presents for increasing symptoms and med noncompliance in the face of his father's recent . Patient reports that his father this past September; he's sad about it but shared a fond memory with lead technical writer. Since then he stopped taking Clozaril and lithium -patient has odd behaviors, disorganized speech and is [id number] in manic due to the combined effect of dealing with father and coming off Clozaril and lithium; patient is pleasant and friendly however -patient willing to start Seroquel which he said he took decades ago and was helpful; not willing to try much else at the moment 10/17 patient remains mild to moderately manic with somewhat/bizarre behaviors, internally preoccupied; is friendly and polite otherwise. Would like Seroquel increased. Patient used to be client of [facility]; now that his father is gone he may again require such services. Social Work inquiring 10/18 increasing angry age to patient's dialoguing; a little more intrusive with others and confrontational but still easily redirected. Would like Flomax which he says he took as an outpatient. Not sure if patient has urinary retention or is just holding his urine as he was able to go on his own to avoid being straight cathed. Agrees to increasing Seroquel 10/19 patient reports sleeping well last night; little less intense, a little less manic today. Perhaps increased Seroquel dose is taking effect. Will continue to monitor 10/20 pt seems a little more organized in both speech and behavior; will see if he can further stabilize on current Seroquel dose before raising 10/21 remains vacillating between organized/disorganized need more collateral about baseline 10/22 agrees to go up on Seroquel; He is already at a high dose of perphenazine; if patient does not further stabilize and go back to sleeping will have to consider another medication 10/25 Not sleeping; does not want to get back on clozapine even at a very low dose. Says prefers Thorazine if needed. Still disorganized with speech and behavior though less manicky than on admission 10/26 again not sleeping; patient a little more edgy and irritable today. Will try to help patient sleep with increased trazodone; hoping not to have to add another antipsychotic 10/28 patient irritable; agrees to retry lithium at a low dose to see if it can augment Seroquel and be enough. He says he gets diarrhea he is going to stop lithium 10/29 Pt continues lithium trial. Will trial prazosin for nightmares, hyperarousal.d/c lithium, 10/30 start tegretol ER 100 mg BID for mood stability 10/31 continue tegretol ER trial, denies adverse effects 11/01/21 Continue current plan of care 11/02/21 Continue current plan of care 11/03/21 patient did not tolerate lithium; was started on Tegretol and reports he is feeling a lot better and less manic. Patient does is fact seem more organized in speech and remains so for longer. No nightmares since starting prazosin. Trouble sleeping and agrees to increase trazodone. Discussed medication dosing and side effects and patient understands and agrees to leave things the way they are for now. Will again get collateral on patient's baseline. [facility] being set up 11/04 slept through night last night; remains cooperative overall organized. 11/05 Given continued paranoid delusional thinking, discussed and patient agreed with increasing Tegretol 11/08: continue current mgmt 11/09: continue current regimen. if pt does not sleep tonight, increase tegretol to 400 BID tomorrow. Plan: CV Q 15 minute checks INCREAsE TO Tegretol ER 200mg BID LABS reviewed: CBC, Lytes, Liver WNL Tegeretol level (on 100mg bid): 2.7 subtherapeutic, Prazosin 1 mg q.h.s. for nightmares Continue Flomax 0.4 mg q.h.s.; patient finds helpful Continue perphenazine 16 mg t.i.d. Continue Seroquel 200mg BID 0900/1400 and Continue Seroquel 400mg q.h.s.; INCREASED TO trazodone 150mg qhs scheduled with 50mg prn Will continue to use collateral Regarding patient's baseline re-application for [facility] services I spent ___20___ minutes with the patient and/or on the patient floor today, greater than?50% of which was spent counseling/coordinating care. Reason for contiued inpatient stay Substantial Risk for: harm to others, inability to function and rapid decompensation
[2021-11-09 18:00] VITALS: BP 123/72; PULSE 82; RESP 16; TEMP 36.5
[2021-11-09] MEDS: polyethylene glycoL 3350 17 GM POWD.PACK PO (20:36)
[2021-11-09] MEDS: Tamsulosin HCL 0.4 MG CAPSULE PO (22:34)
[2021-11-09] MEDS: Prazosin HCL 1 MG CAPSULE 2 MG PO (22:34)
[2021-11-09] MEDS: QUEtiapine Fumarate 400 MG TABLET PO (22:35)
[2021-11-09] MEDS: traZODone HCL 50 MG TABLET 150 MG PO (22:35)
[2021-11-09] MEDS: Pravastatin Sodium 40 MG TABLET PO (22:36)
[2021-11-10] MEDS: Magnesium Hydrox/Alum Hydrox 30 ML ORAL.SUSP PO ×2 (00:02→19:07)
[2021-11-10] MEDS: traZODone HCL 50 MG TABLET PO ×2 (00:02→23:55)
[2021-11-10] MEDS: Albuterol Sulfate 90 MCG 8 GM INHALER 2 PUFF INHALE ×4 (03:23→23:06)
[2021-11-10] MEDS: Artificial Tears 15 ML DROPS 2 DROP EYE-BOTH ×4 (03:23→23:06)
[2021-11-10] MEDS: Nicotine Polacrilex 2 MG GUM 4 MG BUCCAL ×7 (03:28→19:07)
[2021-11-10 06:00] VITALS: BP 121/76; PULSE 86; RESP 16; TEMP 36.7; O2SAT 99
[2021-11-10] MEDS: Fluticasone/Vilanterol 100/25 BLST.W.DEV 1 PUFF INHALE (08:33)
[2021-11-10] MEDS: carBAMazepine ER 100 MG TAB.ER.12H 300 MG PO (08:34)
[2021-11-10] MEDS: Perphenazine 8 MG TABLET 16 MG PO ×3 (08:34→22:42)
[2021-11-10] MEDS: hydrOXYzine HCL 50 MG TABLET PO ×2 (08:34→16:13)
[2021-11-10] MEDS: Vitamin E (Dl,Tocopheryl Acet) 180 MG (400 UNIT) CAPSULE PO ×2 (08:34→22:42)
[2021-11-10] MEDS: Ascorbic Acid 250 MG TABLET PO (08:34)
[2021-11-10] MEDS: Famotidine 20 MG TABLET PO ×2 (08:34→22:42)
[2021-11-10] MEDS: QUEtiapine Fumarate 200 MG TABLET PO ×2 (08:34→14:34)
--- NOTE | 2021-11-10 13:14 | P.PNPSI_ITS ---
Subjective Subjective Date of Service: 11/10/21 Reason For Visit: Schizoaffetive disorder, bipolar type Interim History: found sleeping in his room midday. rousable. c/o constipation (he got miralax last boris and then was ordered a suppository this morning). suggests increasing the tegretol dosing, as pt has not been sleeping at NOC, and pt agrees. per staff, bizarre, disorganized, broken sleep. had a visitor. Mental Status Exam Mental Status Exam Narrative: Adequately dressed and groomed.? Cooperative, PMA of pacing the halls.? Speech incr rate, incr amount, nml loudness, nml tone, decr latency.? Thoughts disorganized and bizarre.? Affect constricted, normo-intense, non-labile.? Mood not assessed.? No SI/HI/AVH expressed. Diagnostics Vital Signs (24Hr): Vital Signs - 24 hr 11/09/21 18:00 11/10/21 06:00 Temperature 97.7 F 98.1 F Pulse Rate 82 86 Respiratory Rate 16 16 Blood Pressure 123/72 121/76 Pulse Oximetry 99 BMI result Body Mass Index 29.3 Labs Results: 11/04/21 08:25 11/04/21 08:25 Medications Medications Current Medications Acetaminophen (Acetaminophen 325 Mg Tablet) 650 mg PO Q6H PRN PRN Reason: Headache/Pain Mild Scale (1-3) Last Admin: 10/22/21 05:55 Dose: 650 mg Al Hydroxide/Mg Hydroxide (Magnesium Hydrox/Alum Hydrox 30 Ml Oral.Susp) 30 ml PO Q6H PRN PRN Reason: Heartburn/Nausea Last Admin: 11/10/21 00:02 Dose: 30 ml Albuterol Sulfate (Albuterol Sulfate 90 Mcg 8 Gm Inhaler) 2 puff INHALE RQ4H PRN PRN Reason: Shortness of Breath/Wheezing Last Admin: 11/10/21 03:23 Dose: 2 puff Artificial Tears (Artificial Tears 15 Ml Drops) 2 drop EYE-BOTH Q4H PRN PRN Reason: Dry Eyes Last Admin: 11/10/21 12:15 Dose: 2 drop Ascorbic Acid (Ascorbic Acid 250 Mg Tablet) 250 mg PO DAILY DAVY Last Admin: 11/10/21 08:34 Dose: 250 mg Carbamazepine (Carbamazepine Er 100 Mg Tab.Er.12h) 300 mg PO BID DAVY Last Admin: 11/10/21 08:34 Dose: 300 mg Famotidine (Famotidine 20 Mg Tablet) 20 mg PO Q12H [facility] Last Admin: 11/10/21 08:34 Dose: 20 mg Fluticasone/Vilanterol (Fluticasone/Vilanterol 100/25 Blst.W.Dev) 1 puff INHALE RDAILY [facility] Last Admin: 11/10/21 08:33 Dose: 1 puff Hydroxyzine HCl (Hydroxyzine Hcl 50 Mg Tablet) 50 mg PO Q6H PRN PRN Reason: Anxiety Last Admin: 11/10/21 08:34 Dose: 50 mg Ibuprofen (Ibuprofen 600 Mg Tablet) 600 mg PO Q8H PRN PRN Reason: Pain, Mild (Pain Scale 1-3) Last Admin: 11/09/21 16:14 Dose: 600 mg Loperamide HCl (Loperamide Hcl 2 Mg Capsule) 2 mg PO Q6H PRN PRN Reason: loose stool Magnesium Hydroxide (Milk Of Magnesia 30 Ml Oral.Susp) 30 ml PO DAILY PRN PRN Reason: Constipation Last Admin: 11/09/21 14:15 Dose: 30 ml Nicotine Polacrilex (Nicotine Polacrilex 2 Mg Gum) 4 mg BUCCAL Q1H PRN PRN Reason: Nicotine Cravings Last Admin: 11/10/21 12:14 Dose: 4 mg Perphenazine (Perphenazine 8 Mg Tablet) 16 mg PO TID [facility] Last Admin: 11/10/21 08:34 Dose: 16 mg Pravastatin Sodium (Pravastatin Sodium 40 Mg Tablet) 40 mg PO BEDTIME [facility] Last Admin: 11/09/21 22:36 Dose: 40 mg Prazosin HCl (Prazosin Hcl 1 Mg Capsule) 2 mg PO BEDTIME [facility]; Protocol Last Admin: 11/09/21 22:34 Dose: 2 mg Quetiapine Fumarate (Quetiapine Fumarate 200 Mg Tablet) 200 mg PO BID@0900,1400 [facility] Last Admin: 11/10/21 08:34 Dose: 200 mg Quetiapine Fumarate (Quetiapine Fumarate 400 Mg Tablet) 400 mg PO BEDTIME [facility] Last Admin: 11/09/21 22:35 Dose: 400 mg Tamsulosin HCl (Tamsulosin Hcl 0.4 Mg Capsule) 0.4 mg PO BEDTIME [facility] Last Admin: 11/09/21 22:34 Dose: 0.4 mg Trazodone HCl (Trazodone Hcl 50 Mg Tablet) 50 mg PO BEDTIME PRN PRN Reason: continued insomnia Last Admin: 11/10/21 00:02 Dose: 50 mg Trazodone HCl (Trazodone Hcl 50 Mg Tablet) 150 mg PO BEDTIME [facility]Y Last Admin: 11/09/21 22:35 Dose: 150 mg Vitamin E (Vitamin E (Dl,Tocopheryl Acet) 180 Mg (400 Unit) Capsule) 180 mg PO BID [facility] Last Admin: 11/10/21 08:34 Dose: 180 mg Allergies Allergies Allergy/AdvReac Type Severity Reaction Status Date / Time divalproex sodium Allergy Severe PANCREATITI Verified 09/24/21 09:22 [From DEPAKOTE] S haloperidol [From Haldol] Allergy Intermediate DYSTONIC Verified 09/24/21 09:22 REACTION Assessment & Plan Assessment & Plan (1) Schizoaffective disorder: Status: Acute Code(s): F25.9 - Schizoaffective disorder, unspecified Plan Patient is a 51-year-old male with history of schizoaffective disorder who presents for increasing symptoms and med noncompliance in the face of his father's recent . Patient reports that his father this past September; he's sad about it but shared a fond memory with underwriter solicitation director. Since then he stopped taking Clozaril and lithium -patient has odd behaviors, disorganized speech and is [id number] in manic due to the combined effect of dealing with father and coming off Clozaril and lithium; patient is pleasant and friendly however -patient willing to start Seroquel which he said he took decades ago and was helpful; not willing to try much else at the moment 10/17 patient remains mild to moderately manic with somewhat/bizarre behaviors, internally preoccupied; is friendly and polite otherwise. Would like Seroquel increased. Patient used to be client of [facility]; now that his father is gone he may again require such services. Social Work inquiring 10/18 increasing angry age to patient's dialoguing; a little more intrusive with others and confrontational but still easily redirected. Would like Flomax which he says he took as an outpatient. Not sure if patient has urinary retention or is just holding his urine as he was able to go on his own to avoid being straight cathed. Agrees to increasing Seroquel 10/19 patient reports sleeping well last night; little less intense, a little less manic today. Perhaps increased Seroquel dose is taking effect. Will continue to monitor 10/20 pt seems a little more organized in both speech and behavior; will see if he can further stabilize on current Seroquel dose before raising 10/21 remains vacillating between organized/disorganized need more collateral about baseline 10/22 agrees to go up on Seroquel; He is already at a high dose of perphenazine; if patient does not further stabilize and go back to sleeping will have to consider another medication 10/25 Not sleeping; does not want to get back on clozapine even at a very low dose. Says prefers Thorazine if needed. Still disorganized with speech and behavior though less manicky than on admission 10/26 again not sleeping; patient a little more edgy and irritable today. Will try to help patient sleep with increased trazodone; hoping not to have to add another antipsychotic 10/28 patient irritable; agrees to retry lithium at a low dose to see if it can augment Seroquel and be enough. He says he gets diarrhea he is going to stop lithium 10/29 Pt continues lithium trial. Will trial prazosin for nightmares, hyperarousal.d/c lithium, 10/30 start tegretol ER 100 mg BID for mood stability 10/31 continue tegretol ER trial, denies adverse effects 11/01/21 Continue current plan of care 11/02/21 Continue current plan of care 11/03/21 patient did not tolerate lithium; was started on Tegretol and reports he is feeling a lot better and less manic. Patient does is fact seem more organized in speech and remains so for longer. No nightmares since starting prazosin. Trouble sleeping and agrees to increase trazodone. Discussed medication dosing and side effects and patient understands and agrees to leave things the way they are for now. Will again get collateral on patient's baseline. [facility] being set up 11/04 slept through night last night; remains cooperative overall organized. 11/05 Given continued paranoid delusional thinking, discussed and patient agreed with increasing Tegretol 11/08: continue current mgmt 11/09: continue current regimen. if pt does not sleep tonight, increase tegretol to 400 BID tomorrow. 11/10: no change in presentation. incr tegretol to 400 BID. Plan: CV Q 15 minute checks INCREAsE TO Tegretol ER 200mg BID LABS reviewed: CBC, Lytes, Liver WNL Tegeretol level (on 100mg bid): 2.7 subtherapeutic, Prazosin 1 mg q.h.s. for nightmares Continue Flomax 0.4 mg q.h.s.; patient finds helpful Continue perphenazine 16 mg t.i.d. Continue Seroquel 200mg BID 0900/1400 and Continue Seroquel 400mg q.h.s.; INCREASED TO trazodone 150mg qhs scheduled with 50mg prn Will continue to use collateral Regarding patient's baseline re-application for [facility] services I spent __20____ minutes with the patient and/or on the patient floor today, greater than?50% of which was spent counseling/coordinating care. Reason for contiued inpatient stay Substantial Risk for: inability to function and rapid decompensation
[2021-11-10 18:00] VITALS: BP 128/86; PULSE 77; TEMP 36.7; O2SAT 95
[2021-11-10] MEDS: Ibuprofen 600 MG TABLET PO (19:07)
[2021-11-10] MEDS: carBAMazepine ER 200 MG TAB.ER.12H 400 MG PO (22:37)
[2021-11-10] MEDS: Tamsulosin HCL 0.4 MG CAPSULE PO (22:37)
[2021-11-10] MEDS: Pravastatin Sodium 40 MG TABLET PO (22:37)
[2021-11-10] MEDS: QUEtiapine Fumarate 400 MG TABLET PO (22:38)
[2021-11-10] MEDS: traZODone HCL 50 MG TABLET 150 MG PO (22:38)
[2021-11-10] MEDS: Prazosin HCL 1 MG CAPSULE 2 MG PO (22:38)
[2021-11-11] MEDS: Albuterol Sulfate 90 MCG 8 GM INHALER 2 PUFF INHALE ×2 (01:39→18:25)
[2021-11-11] MEDS: Nicotine Polacrilex 2 MG GUM 4 MG BUCCAL ×8 (01:45→22:55)
[2021-11-11] MEDS: traZODone HCL 50 MG TABLET PO ×2 (03:11→23:41)
[2021-11-11] MEDS: hydrOXYzine HCL 50 MG TABLET PO ×3 (03:11→23:41)
[2021-11-11] MEDS: Ascorbic Acid 250 MG TABLET PO (08:30)
[2021-11-11] MEDS: Perphenazine 8 MG TABLET 16 MG PO ×3 (08:30→20:31)
[2021-11-11] MEDS: Famotidine 20 MG TABLET PO ×2 (08:30→20:31)
[2021-11-11] MEDS: QUEtiapine Fumarate 200 MG TABLET PO ×2 (08:30→14:22)
[2021-11-11] MEDS: Vitamin E (Dl,Tocopheryl Acet) 180 MG (400 UNIT) CAPSULE PO ×2 (08:30→20:30)
[2021-11-11] MEDS: carBAMazepine ER 200 MG TAB.ER.12H 400 MG PO ×2 (08:30→20:32)
[2021-11-11] MEDS: Fluticasone/Vilanterol 100/25 BLST.W.DEV 1 PUFF INHALE (08:31)
[2021-11-11 08:47] LABS: MANUAL DIFF FLAG NO
[2021-11-11 08:53] LABS: Basophils Percent Auto 0.7 % (0-2); Eosinophils Absolute Auto 0.1 X10*3/uL (0.0-0.4); Eosinophils Percent Auto 1.4 % (0-4); Hemoglobin 13.5 g/dl (14.0-18.0); Imm Gran Abs Auto 0.02 X10*3/uL (0.00-0.03); Imm Gran Pct Auto 0.3 % (0.0-0.4); Lymphocytes Absolute Auto 1.9 X10*3/uL (1.2-4.9); Lymphocytes Percent Auto 32.8 % (20-40); Mean Corpuscular HGB Conc 32.9 g/dl (31.0-36.0); Mean Corpuscular Hemoglobin 31.3 pg (27.0-33.0); Mean Corpuscular Volume 94.9 fL (80.0-98.0); Mean Platelet Volume 10.8 fL (9.4-12.4); Monocytes Absolute Auto 0.5 X10*3/uL (0.1-1.2); Monocytes Percent Auto 7.8 % (2-11); Neutrophils Absolute Auto 3.3 x10*3/uL (2.0-8.3); Platelet Count 220 X10*3/uL (160-400); Red Blood Count 4.32 X10*6/uL (4.60-5.80); Red Cell Distribution Width 12.9 % (11.0-16.0); White Blood Count 5.8 X10*3/uL (4.8-10.8)
[2021-11-11 09:18] LABS: Alanine Aminotransferase 27 U/L (0-40); Albumin Level 4.3 g/dL (3.5-5.0); Alkaline Phosphatase 74 U/L (39-117); Aspartate Amino Transferase 19 U/L (5-37); Bilirubin Direct 0.2 mg/dL (0.0-0.5); Bilirubin Total 0.6 mg/dL (0.0-1.0); Total Protein 6.7 g/dL (6.5-8.0)
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
[2021-11-11 10:32] LABS: Carbamazepine Tegretol 6.7 mcg/mL (5.0-12.0)
[2021-11-11 18:00] VITALS: BP 128/82; PULSE 82; RESP 16; TEMP 37; O2SAT 99
[2021-11-11] MEDS: Artificial Tears 15 ML DROPS 2 DROP EYE-BOTH (18:25)
[2021-11-11] MEDS: Prazosin HCL 1 MG CAPSULE 2 MG PO (20:30)
[2021-11-11] MEDS: Tamsulosin HCL 0.4 MG CAPSULE PO (20:30)
[2021-11-11] MEDS: Pravastatin Sodium 40 MG TABLET PO (20:31)
[2021-11-11] MEDS: QUEtiapine Fumarate 400 MG TABLET PO (20:31)
[2021-11-11] MEDS: traZODone HCL 50 MG TABLET 150 MG PO (20:32)
[2021-11-11] MEDS: Ibuprofen 600 MG TABLET PO (23:08)
[2021-11-12] MEDS: Nicotine Polacrilex 2 MG GUM 4 MG BUCCAL ×7 (04:39→22:09)
[2021-11-12] MEDS: Albuterol Sulfate 90 MCG 8 GM INHALER 2 PUFF INHALE ×3 (04:40→18:27)
[2021-11-12] MEDS: Artificial Tears 15 ML DROPS 2 DROP EYE-BOTH ×3 (04:40→18:27)
[2021-11-12 06:00] VITALS: BP 119/71; PULSE 85; RESP 18; TEMP 36; O2SAT 98
[2021-11-12] MEDS: Perphenazine 8 MG TABLET 16 MG PO ×3 (08:49→21:09)
[2021-11-12] MEDS: Ascorbic Acid 250 MG TABLET PO (08:49)
[2021-11-12] MEDS: Fluticasone/Vilanterol 100/25 BLST.W.DEV 1 PUFF INHALE (08:49)
[2021-11-12] MEDS: QUEtiapine Fumarate 200 MG TABLET PO ×2 (08:49→13:00)
[2021-11-12] MEDS: carBAMazepine ER 200 MG TAB.ER.12H 400 MG PO (08:49)
[2021-11-12] MEDS: Famotidine 20 MG TABLET PO ×2 (08:49→21:11)
[2021-11-12] MEDS: Vitamin E (Dl,Tocopheryl Acet) 180 MG (400 UNIT) CAPSULE PO ×2 (08:49→21:09)
--- NOTE | 2021-11-12 08:55 | P.PNPSI_ITS ---
Subjective Subjective Date of Service: 11/12/21 Reason For Visit: Schizoaffetive disorder, bipolar type Interim History: Patient walking around unit with some AH behaviors but mostly keeping to himself. In group the of the day he made a not comment about using a rubber band to strangulate 1 self. Steel Loader asked and he said well patient has come here wanting to kill himself I was just telling him how. He accepted that this is not appropriate; he has no SI himself. Discussed medications again and he feels that current medications are helping. He talked about history with Clozaril and says that he almost choked to on his own saliva because of excess elevation. This is why he does not want to return to the medication Patient placed 3 day notice says he feels ready to go home Mental Status Exam Mental Status Exam Narrative: Pt is alert and oriented; behavior is cooperative, organized mostly; sometimes odd behaviors at other times; intermittently makes inappropriate remarks to others but is redirectable; patient is not in distress; dressed in casual att [place], scruffy facial hair but adequate hygiene; mood is described as ok and affect congruent; eye contact appropriate; intermittent tongue fasciculation, likely TD; Speech normal rate, volume, prosody; no psychomotor agitation; thought process is goal oriented on some topics but can become tangential; Thought content is on discharge home; also on various past events; can be goal oriented when discussing specific topics; intermittent Paranoid and delusional thinking present; no SI/HI. Denies AVH; some internal preoccupation; Patients insight and judgment are Improved but still impaired however per family approaching baseline Diagnostics Vital Signs (24Hr): Vital Signs - 24 hr 11/11/21 18:00 11/12/21 06:00 Temperature 98.6 F 96.8 F Pulse Rate 82 85 Respiratory Rate 16 18 Blood Pressure 128/82 119/71 Pulse Oximetry 99 98 Oxygen Delivery Method Room Air Room Air BMI result Body Mass Index 29.3 Labs Results: 11/11/21 07:59 11/04/21 08:25 Labs: Laboratory Results - last 48 hr 11/11/21 11/11/21 07:59 07:59 WBC 5.8 RBC 4.32 L Hgb 13.5 L Hct 41.0 L MCV 94.9 MCH 31.3 MCHC 32.9 RDW 12.9 Plt Count 220 MPV 10.8 Immature Gran % (Auto) 0.3 Neut % (Auto) 57.0 Lymph % (Auto) 32.8 [place] % (Auto) 7.8 Eos % (Auto) 1.4 Baso % (Auto) 0.7 Lymph # (Auto) 1.9 [place] # (Auto) 0.5 Eos # (Auto) 0.1 Baso # (Auto) 0.0 Abs Immat Gran (auto) 0.02 Absolute Neuts (auto) 3.3 Absolute Nucleated RBC 0.000 Nucleated RBC % (auto) 0.0 Total Bilirubin 0.6 Direct Bilirubin 0.2 AST 19 ALT 27 Alkaline Phosphatase 74 Total Protein 6.7 Albumin 4.3 Carbamazepine 6.7 Medications Medications Current Medications Acetaminophen (Acetaminophen 325 Mg Tablet) 650 mg PO Q6H PRN PRN Reason: Headache/Pain Mild Scale (1-3) Last Admin: 10/22/21 05:55 Dose: 650 mg Al Hydroxide/Mg Hydroxide (Magnesium Hydrox/Alum Hydrox 30 Ml Oral.Susp) 30 ml PO Q6H PRN PRN Reason: Heartburn/Nausea Last Admin: 11/10/21 19:07 Dose: 30 ml Albuterol Sulfate (Albuterol Sulfate 90 Mcg 8 Gm Inhaler) 2 puff INHALE RQ4H PRN PRN Reason: Shortness of Breath/Wheezing Last Admin: 11/12/21 04:40 Dose: 2 puff Artificial Tears (Artificial Tears 15 Ml Drops) 2 drop EYE-BOTH Q4H PRN PRN Reason: Dry Eyes Last Admin: 11/12/21 04:40 Dose: 2 drop Ascorbic Acid (Ascorbic Acid 250 Mg Tablet) 250 mg PO DAILY [facility] Last Admin: 11/11/21 08:30 Dose: 250 mg Carbamazepine (Carbamazepine Er 200 Mg Tab.Er.12h) 400 mg PO BID [facility] Last Admin: 11/11/21 20:32 Dose: 400 mg Famotidine (Famotidine 20 Mg Tablet) 20 mg PO Q12H [facility] Last Admin: 11/11/21 20:31 Dose: 20 mg Fluticasone/Vilanterol (Fluticasone/Vilanterol 100/25 Blst.W.Dev) 1 puff INHALE RDAILY [facility] Last Admin: 11/11/21 08:31 Dose: 1 puff Hydroxyzine HCl (Hydroxyzine Hcl 50 Mg Tablet) 50 mg PO Q6H PRN PRN Reason: Anxiety Last Admin: 11/11/21 23:41 Dose: 50 mg Ibuprofen (Ibuprofen 600 Mg Tablet) 600 mg PO Q8H PRN PRN Reason: Pain, Mild (Pain Scale 1-3) Last Admin: 11/11/21 23:08 Dose: 600 mg Loperamide HCl (Loperamide Hcl 2 Mg Capsule) 2 mg PO Q6H PRN PRN Reason: loose stool Magnesium Hydroxide (Milk Of Magnesia 30 Ml Oral.Susp) 30 ml PO DAILY PRN PRN Reason: Constipation Last Admin: 11/09/21 14:15 Dose: 30 ml Nicotine Polacrilex (Nicotine Polacrilex 2 Mg Gum) 4 mg BUCCAL Q1H PRN PRN Reason: Nicotine Cravings Last Admin: 11/12/21 04:39 Dose: 4 mg Perphenazine (Perphenazine 8 Mg Tablet) 16 mg PO TID [facility] Last Admin: 11/11/21 20:31 Dose: 16 mg Pravastatin Sodium (Pravastatin Sodium 40 Mg Tablet) 40 mg PO BEDTIME [facility] Last Admin: 11/11/21 20:31 Dose: 40 mg Prazosin HCl (Prazosin Hcl 1 Mg Capsule) 2 mg PO BEDTIME [facility]; Protocol Last Admin: 11/11/21 20:30 Dose: 2 mg Quetiapine Fumarate (Quetiapine Fumarate 200 Mg Tablet) 200 mg PO BID@0900,1400 [facility] Last Admin: 11/11/21 14:22 Dose: 200 mg Quetiapine Fumarate (Quetiapine Fumarate 400 Mg Tablet) 400 mg PO BEDTIME [facility] Last Admin: 11/11/21 20:31 Dose: 400 mg Tamsulosin HCl (Tamsulosin Hcl 0.4 Mg Capsule) 0.4 mg PO BEDTIME [facility] Last Admin: 11/11/21 20:30 Dose: 0.4 mg Trazodone HCl (Trazodone Hcl 50 Mg Tablet) 50 mg PO BEDTIME PRN PRN Reason: continued insomnia Last Admin: 11/11/21 23:41 Dose: 50 mg Trazodone HCl (Trazodone Hcl 50 Mg Tablet) 150 mg PO BEDTIME [facility] Last Admin: 11/11/21 20:32 Dose: 150 mg Vitamin E (Vitamin E (Dl,Tocopheryl Acet) 180 Mg (400 Unit) Capsule) 180 mg PO BID [facility] Last Admin: 11/11/21 20:30 Dose: 180 mg Allergies Allergies Allergy/AdvReac Type Severity Reaction Status Date / Time divalproex sodium Allergy Severe PANCREATITI Verified 09/24/21 09:22 [From DEPAKOTE] S haloperidol [From Haldol] Allergy Intermediate DYSTONIC Verified 09/24/21 09:22 REACTION Assessment & Plan Assessment & Plan (1) Schizoaffective disorder: Status: Acute Code(s): F25.9 - Schizoaffective disorder, unspecified Plan Patient is a 51-year-old male with history of schizoaffective disorder who presents for increasing symptoms and med noncompliance in the face of his father's recent . Patient reports that his father this past September; he's sad about it but shared a fond memory with commercial insurance underwriter. Since then he stopped taking Clozaril and lithium -patient has odd behaviors, disorganized speech and is keij-od-hseplgymre in manic due to the combined effect of dealing with father and coming off Clozaril and lithium; patient is pleasant and friendly however -patient willing to start Seroquel which he said he took decades ago and was helpful; not willing to try much else at the moment 10/17 patient remains mild to moderately manic with somewhat/bizarre behaviors, internally preoccupied; is friendly and polite otherwise. Would like Seroquel increased. [facility]; now that his father is gone he may again require such services. Social Work inquiring 10/18 increasing angry age to patient's dialoguing; a little more intrusive with others and confrontational but still easily redirected. Would like Flomax which he says he took as an outpatient. Not sure if patient has urinary retention or is just holding his urine as he was able to go on his own to avoid being straight cathed. Agrees to increasing Seroquel 10/19 patient reports sleeping well last night; little less intense, a little less manic today. Perhaps increased Seroquel dose is taking effect. Will continue to monitor 10/20 pt seems a little more organized in both speech and behavior; will see if he can further stabilize on current Seroquel dose before raising 10/21 remains vacillating between organized/disorganized need more collateral about baseline 10/22 agrees to go up on Seroquel; He is already at a high dose of perphenazine; if patient does not further stabilize and go back to sleeping will have to consider another medication 10/25 Not sleeping; does not want to get back on clozapine even at a very low dose. Says prefers Thorazine if needed. Still disorganized with speech and behavior though less manicky than on admission 10/26 again not sleeping; patient a little more edgy and irritable today. Will try to help patient sleep with increased trazodone; hoping not to have to add another antipsychotic 10/28 patient irritable; agrees to retry lithium at a low dose to see if it can augment Seroquel and be enough. He says he gets diarrhea he is going to stop lithium 10/29 Pt continues lithium trial. Will trial prazosin for nightmares, h yperarousal.d/c lithium, 10/30 start tegretol ER 100 mg BID for mood stability 10/31 continue tegretol ER trial, denies adverse effects 11/01/21 Continue current plan of care 11/02/21 Continue current plan of care 11/03/21 patient did not tolerate lithium; was started on Tegretol and reports he is feeling a lot better and less manic. Patient does is fact seem more organized in speech and remains so for longer. No nightmares since starting prazosin. Trouble sleeping and agrees to increase trazodone. Discussed medication dosing and side effects and patient understands and agrees to leave things the way they are for now. Will again get collateral on patient's baseline. [facility] 11/04 slept through night last night; remains cooperative overall organized. 11/05 Given continued paranoid delusional thinking, discussed and patient agreed with increasing Tegretol 11/08: continue current mgmt 11/09: continue current regimen.? if pt does not sleep tonight, increase tegretol to 400 BID tomorrow. 11/10: no change in presentation.? incr tegretol to 400 BID. 11/11 patient is better than on admission though not at baseline. It is not clear if he will be able to achieve baseline without clozapine. Also not clear if targeted symptoms are decreasing hypomania or decreasing disorganized/psychotic symptoms which is complicated by the theoretical risk that increasing Tegretol can lower the efficacy of Seroquel. Patient amenable to increasing Tegretol but wary of increasing Seroquel passed FDA recommended max dose. Will leave Tegretol at 400 b.i.d. for another day or so; patient's sister said she is going to get another family member to try to convince patient to take a little bit of clozapine. 11/12 stabilizing Plan: 3 day notice Q 15 minute checks INCREAsEd TO Tegretol ER 500mg BID *(may lower efficacy of Seroquel) LABS reviewed: CBC, Lytes, Liver WNL Tegeretol level (on 100mg bid): 2.7 subtherapeutic, Prazosin 1 mg q.h.s. for nightmares Continue Flomax 0.4 mg q.h.s.; patient finds helpful Continue perphenazine 16 mg t.i.d. Continue Seroquel 200mg BID 0900/1400 and Continue Seroquel 400mg q.h.s.; INCREASED TO trazodone 150mg qhs scheduled with 50mg prn Will continue to use collateral Regarding patient's baseline re-application for [facility] services I spent minutes with the patient and/or on the patient floor today, greater than?50% of which was spent counseling/coordinating care. Patient educated on: diagnosis and medication risk/benefits Informed Consent: understands Reason for contiued inpatient stay Substantial Risk for: med/psych decompensation
[2021-11-12] MEDS: hydrOXYzine HCL 50 MG TABLET PO ×2 (10:41→18:28)
[2021-11-12 17:44] VITALS: BP 132/82; PULSE 95; RESP 16; TEMP 36.4; O2SAT 99
[2021-11-12] MEDS: Ibuprofen 600 MG TABLET PO (18:27)
[2021-11-12] MEDS: traZODone HCL 50 MG TABLET 150 MG PO (21:09)
[2021-11-12] MEDS: Prazosin HCL 1 MG CAPSULE 2 MG PO (21:09)
[2021-11-12] MEDS: QUEtiapine Fumarate 400 MG TABLET PO (21:09)
[2021-11-12] MEDS: Tamsulosin HCL 0.4 MG CAPSULE PO (21:09)
[2021-11-12] MEDS: Pravastatin Sodium 40 MG TABLET PO (21:09)
[2021-11-12] MEDS: carBAMazepine ER 100 MG TAB.ER.12H 500 MG PO (21:10)
--- NOTE | 2021-11-12 23:56 | PC.NURSE ---
pt signed a 3 day notice on wednesday11/12/2021. up on wednesday11/17/2021.
[2021-11-13] MEDS: Nicotine Polacrilex 2 MG GUM 4 MG BUCCAL ×6 (03:21→23:58)
[2021-11-13] MEDS: Artificial Tears 15 ML DROPS 2 DROP EYE-BOTH ×2 (05:06→23:58)
[2021-11-13] MEDS: Albuterol Sulfate 90 MCG 8 GM INHALER 2 PUFF INHALE ×2 (05:06→23:57)
[2021-11-13] MEDS: hydrOXYzine HCL 50 MG TABLET PO ×2 (05:22→23:58)
[2021-11-13 06:00] VITALS: BP 132/79; PULSE 83; RESP 16; TEMP 36.4; O2SAT 97
[2021-11-13 07:00] VITALS: BMI 29.6
[2021-11-13] MEDS: Ascorbic Acid 250 MG TABLET PO (08:03)
[2021-11-13] MEDS: Perphenazine 8 MG TABLET 16 MG PO ×3 (08:03→22:19)
[2021-11-13] MEDS: Vitamin E (Dl,Tocopheryl Acet) 180 MG (400 UNIT) CAPSULE PO ×2 (08:03→22:23)
[2021-11-13] MEDS: Famotidine 20 MG TABLET PO ×2 (08:03→22:21)
[2021-11-13] MEDS: carBAMazepine ER 100 MG TAB.ER.12H 500 MG PO ×2 (08:03→22:21)
[2021-11-13] MEDS: QUEtiapine Fumarate 200 MG TABLET PO ×2 (08:03→14:17)
[2021-11-13] MEDS: Fluticasone/Vilanterol 100/25 BLST.W.DEV 1 PUFF INHALE (08:04)
--- NOTE | 2021-11-13 12:36 | HO.PSYCHPN ---
Subjective Subjective Date of Service: 11/13/21 Reason For Visit: Schizoaffetive disorder, bipolar type Interim History: Late entry for patient seen 11/13 Patient remains mostly the same; some odd behaviors but not intrusive to others. Says he wants to continue with the Tegretol; discussed that his sister called and talked about lithium but patient says he rather not and wants to stay with Tegretol. Mental Status Exam Mental Status Exam Narrative: Pt is alert and oriented; behavior is cooperative, organized mostly; sometimes odd behaviors at other times; intermittently makes inappropriate remarks to others but is redirectable; patient is not in distress; dressed in casual attire, scruffy facial hair but adequate hygiene; mood is described as ok and affect congruent; eye contact appropriate; intermittent tongue fasciculation, likely TD; Speech normal rate, volume, prosody; no psychomotor agitation; thought process is goal oriented on some topics but can become tangential; Thought content is on discharge home; also on various past events; can be goal oriented when discussing specific topics; intermittent Paranoid and delusional thinking present; no SI/HI. Denies AVH; some internal preoccupation; Patients insight and judgment are Improved but still impaired however per family approaching baseline Diagnostics Vital Signs (24Hr): Vital Signs - 24 hr 11/13/21 18:10 11/14/21 06:00 Temperature 97.2 F 97.4 F Pulse Rate 89 88 Respiratory Rate 18 Blood Pressure 115/73 124/78 Pulse Oximetry 99 BMI result Body Mass Index 29.6 Labs Results: 11/11/21 07:59 11/04/21 08:25 Medications Medications Current Medications Acetaminophen (Acetaminophen 325 Mg Tablet) 650 mg PO Q6H PRN PRN Reason: Headache/Pain Mild Scale (1-3) Last Admin: 10/22/21 05:55 Dose: 650 mg Al Hydroxide/Mg Hydroxide (Magnesium Hydrox/Alum Hydrox 30 Ml Oral.Susp) 30 ml PO Q6H PRN PRN Reason: Heartburn/Nausea Last Admin: 11/13/21 16:51 Dose: 30 ml Albuterol Sulfate (Albuterol Sulfate 90 Mcg 8 Gm Inhaler) 2 puff INHALE RQ4H PRN PRN Reason: Shortness of Breath/Wheezing Last Admin: 11/14/21 06:07 Dose: 2 puff Artificial Tears (Artificial Tears 15 Ml Drops) 2 drop EYE-BOTH Q4H PRN PRN Reason: Dry Eyes Last Admin: 11/14/21 06:07 Dose: 2 drop Ascorbic Acid (Ascorbic Acid 250 Mg Tablet) 250 mg PO DAILY [facility] Last Admin: 11/14/21 08:28 Dose: 250 mg Bacitracin (Bacitracin Oint 14 Gm Tube) 1 appl TOPICAL DAILY [facility]; Protocol Last Admin: 11/14/21 10:12 Dose: 1 appl Carbamazepine (Carbamazepine Er 100 Mg Tab.Er.12h) 500 mg PO BID [facility] Last Admin: 11/14/21 10:02 Dose: 500 mg Famotidine (Famotidine 20 Mg Tablet) 20 mg PO Q12H [facility] Last Admin: 11/14/21 08:28 Dose: 20 mg Fluticasone/Vilanterol (Fluticasone/Vilanterol 100/25 Blst.W.Dev) 1 puff INHALE RDAILY [facility] Last Admin: 11/14/21 10:02 Dose: 1 puff Hydroxyzine HCl (Hydroxyzine Hcl 50 Mg Tablet) 50 mg PO Q6H PRN PRN Reason: Anxiety Last Admin: 11/14/21 06:07 Dose: 50 mg Ibuprofen (Ibuprofen 600 Mg Tablet) 600 mg PO Q8H PRN PRN Reason: Pain, Mild (Pain Scale 1-3) Last Admin: 11/13/21 23:58 Dose: 600 mg Loperamide HCl (Loperamide Hcl 2 Mg Capsule) 2 mg PO Q6H PRN PRN Reason: loose stool Magnesium Hydroxide (Milk Of Magnesia 30 Ml Oral.Susp) 30 ml PO DAILY PRN PRN Reason: Constipation Last Admin: 11/09/21 14:15 Dose: 30 ml Nicotine Polacrilex (Nicotine Polacrilex 2 Mg Gum) 4 mg BUCCAL Q1H PRN PRN Reason: Nicotine Cravings Last Admin: 11/14/21 06:07 Dose: 4 mg Perphenazine (Perphenazine 8 Mg Tablet) 16 mg PO TID [facility] Last Admin: 11/14/21 08:28 Dose: 16 mg Pravastatin Sodium (Pravastatin Sodium 40 Mg Tablet) 40 mg PO BEDTIME [facility] Last Admin: 11/13/21 22:23 Dose: 40 mg Prazosin HCl (Prazosin Hcl 1 Mg Capsule) 2 mg PO BEDTIME [facility]; Protocol Last Admin: 11/13/21 22:24 Dose: 2 mg Quetiapine Fumarate (Quetiapine Fumarate 200 Mg Tablet) 200 mg PO BID@0900,1400 [facility] Last Admin: 11/14/21 08:28 Dose: 200 mg Quetiapine Fumarate (Quetiapine Fumarate 400 Mg Tablet) 400 mg PO BEDTIME [facility] Last Admin: 11/13/21 22:23 Dose: 400 mg Tamsulosin HCl (Tamsulosin Hcl 0.4 Mg Capsule) 0.4 mg PO BEDTIME [facility] Last Admin: 11/13/21 22:24 Dose: 0.4 mg Trazodone HCl (Trazodone Hcl 50 Mg Tablet) 50 mg PO BEDTIME PRN PRN Reason: continued insomnia Last Admin: 11/11/21 23:41 Dose: 50 mg Trazodone HCl (Trazodone Hcl 50 Mg Tablet) 150 mg PO BEDTIME [facility] Last Admin: 11/13/21 22:20 Dose: 150 mg Vitamin E (Vitamin E (Dl,Tocopheryl Acet) 180 Mg (400 Unit) Capsule) 180 mg PO BID [facility] Last Admin: 11/14/21 08:28 Dose: 180 mg Allergies Allergies Allergy/AdvReac Type Severity Reaction Status Date / Time divalproex sodium Allergy Severe PANCREATITI Verified 09/24/21 09:22 [From DEPAKOTE] S haloperidol [From Haldol] Allergy Intermediate DYSTONIC Verified 09/24/21 09:22 REACTION Assessment & Plan Assessment & Plan (1) Schizoaffective disorder: Status: Acute Code(s): F25.9 - Schizoaffective disorder, unspecified Plan Patient is a 51-year-old male with history of schizoaffective disorder who presents for increasing symptoms and med noncompliance in the face of his father's recent . Patient reports that his father this past September; he's sad about it but shared a fond memory with adjusto writer operator. Since then he stopped taking Clozaril and lithium -patient has odd behaviors, disorganized speech and is [id number] in manic due to the combined effect of dealing with father and coming off Clozaril and lithium; patient is pleasant and friendly however -patient willing to start Seroquel which he said he took decades ago and was helpful; not willing to try much else at the moment 10/17 patient remains mild to moderately manic with somewhat/bizarre behaviors, internally preoccupied; is friendly and polite otherwise. Would like Seroquel increased. Patient used to be client of [facility]; now that his father is gone he may again require such services. Social Work inquiring 10/18 increasing angry age to patient's dialoguing; a little more intrusive with others and confrontational but still easily redirected. Would like Flomax which he says he took as an outpatient. Not sure if patient has urinary retention or is just holding his urine as he was able to go on his own to avoid being straight cathed. Agrees to increasing Seroquel 10/19 patient reports sleeping well last night; little less intense, a little less manic today. Perhaps increased Seroquel dose is taking effect. Will continue to monitor 10/20 pt seems a little more organized in both speech and behavior; will see if he can further stabilize on current Seroquel dose before raising 10/21 remains vacillating between organized/disorganized need more collateral about baseline 10/22 agrees to go up on Seroquel; He is already at a high dose of perphenazine; if patient does not further stabilize and go back to sleeping will have to consider another medication 10/25 Not sleeping; does not want to get back on clozapine even at a very low dose. Says prefers Thorazine if needed. Still disorganized with speech and behavior though less manicky than on admission 10/26 again not sleeping; patient a little more edgy and irritable today. Will try to help patient sleep with increased trazodone; hoping not to have to add another antipsychotic 10/28 patient irritable; agrees to retry lithium at a low dose to see if it can augment Seroquel and be enough. He says he gets diarrhea he is going to stop lithium 10/29 Pt continues lithium trial. Will trial prazosin for nightmares, hyperarousal.d/c lithium, 10/30 start tegretol ER 100 mg BID for mood stability 10/31 continue tegretol ER trial, denies adverse effects 11/01/21 Continue current plan of care 11/02/21 Continue current plan of care 11/03/21 patient did not tolerate lithium; was started on Tegretol and reports he is feeling a lot better and less manic. Patient does is fact seem more organized in speech and remains so for longer. No nightmares since starting prazosin. Trouble sleeping and agrees to increase trazodone. Discussed medication dosing and side effects and patient understands and agrees to leave things the way they are for now. Will again get collateral on patient's baseline. [facility] being set up 11/04 slept through night last night; remains cooperative overall organized. 11/05 Given continued paranoid delusional thinking, discussed and patient agreed with increasing Tegretol 11/08: continue current mgmt 11/09: continue current regimen.? if pt does not sleep tonight, increase tegretol to 400 BID tomorrow. 11/10: no change in presentation.? incr tegretol to 400 BID. 11/11 patient is better than on admission though not at baseline. It is not clear if he will be able to achieve baseline without clozapine. Also not clear if targeted symptoms are decreasing hypomania or decreasing disorganized/psychotic symptoms which is complicated by the theoretical risk that increasing Tegretol can lower the efficacy of Seroquel. Patient amenable to increasing Tegretol but wary of increasing Seroquel passed FDA recommended max dose. Will leave Tegretol at 400 b.i.d. for another day or so; patient's sister said she is going to get another family member to try to convince patient to take a little bit of clozapine. 11/12 stabilizing Plan: 3 day notice Q 15 minute checks Tegretol ER 500mg BID *(may lower efficacy of Seroquel) LABS reviewed: CBC, Lytes, Liver WNL Tegeretol level (on 100mg bid): 2.7 subtherapeutic, Prazosin 1 mg q.h.s. for nightmares Continue Flomax 0.4 mg q.h.s.; patient finds helpful Continue perphenazine 16 mg t.i.d. Continue Seroquel 200mg BID 0900/1400 and Continue Seroquel 400mg q.h.s.; INCREASED TO trazodone 150mg qhs scheduled with 50mg prn Will continue to use collateral Regarding patient's baseline re-application for [facility]/ACCS services I spent minutes with the patient and/or on the patient floor today, greater than?50% of which was spent counseling/coordinating care. Patient educated on: medication risk/benefits Informed Consent: understands Reason for contiued inpatient stay Substantial Risk for: stable for discharge
[2021-11-13] MEDS: Magnesium Hydrox/Alum Hydrox 30 ML ORAL.SUSP PO (16:51)
[2021-11-13 18:10] VITALS: BP 115/73; PULSE 89; TEMP 36.2
[2021-11-13] MEDS: traZODone HCL 50 MG TABLET 150 MG PO (22:20)
[2021-11-13] MEDS: Pravastatin Sodium 40 MG TABLET PO (22:23)
[2021-11-13] MEDS: QUEtiapine Fumarate 400 MG TABLET PO (22:23)
[2021-11-13] MEDS: Prazosin HCL 1 MG CAPSULE 2 MG PO (22:24)
[2021-11-13] MEDS: Tamsulosin HCL 0.4 MG CAPSULE PO (22:24)
[2021-11-13] MEDS: Ibuprofen 600 MG TABLET PO (23:58)
[2021-11-14 06:00] VITALS: BP 124/78; PULSE 88; RESP 18; TEMP 36.3; O2SAT 99
[2021-11-14] MEDS: Nicotine Polacrilex 2 MG GUM 4 MG BUCCAL ×6 (06:07→23:50)
[2021-11-14] MEDS: hydrOXYzine HCL 50 MG TABLET PO ×4 (06:07→22:50)
[2021-11-14] MEDS: Artificial Tears 15 ML DROPS 2 DROP EYE-BOTH ×4 (06:07→23:44)
[2021-11-14] MEDS: Albuterol Sulfate 90 MCG 8 GM INHALER 2 PUFF INHALE ×4 (06:07→23:44)
[2021-11-14] MEDS: Perphenazine 8 MG TABLET 16 MG PO ×3 (08:28→22:49)
[2021-11-14] MEDS: Vitamin E (Dl,Tocopheryl Acet) 180 MG (400 UNIT) CAPSULE PO ×2 (08:28→22:49)
[2021-11-14] MEDS: Ascorbic Acid 250 MG TABLET PO (08:28)
[2021-11-14] MEDS: Famotidine 20 MG TABLET PO ×2 (08:28→22:50)
[2021-11-14] MEDS: QUEtiapine Fumarate 200 MG TABLET PO ×2 (08:28→14:29)
[2021-11-14] MEDS: carBAMazepine ER 100 MG TAB.ER.12H 500 MG PO ×2 (10:02→22:49)
[2021-11-14] MEDS: Fluticasone/Vilanterol 100/25 BLST.W.DEV 1 PUFF INHALE (10:02)
[2021-11-14] MEDS: Bacitracin Oint 14 GM TUBE 1 APPL TOPICAL (10:12)
[2021-11-14] MEDS: Ibuprofen 600 MG TABLET PO ×2 (12:35→22:50)
--- NOTE | 2021-11-14 12:39 | HO.PSYCHPN ---
Subjective Subjective Date of Service: 11/14/21 Reason For Visit: Schizoaffetive disorder, bipolar type Interim History: Patient reports good mood, enjoying doing art work. No complaints and no requests. Says he is looking forward to going Wednesday. Not intrusive to others. Patient's sister reports that he is pretty much back to his regular self Mental Status Exam Mental Status Exam Narrative: Pt is alert and oriented; behavior is cooperative, organized mostly; sometimes odd behaviors at other times; intermittently makes inappropriate remarks to others but is redirectable; patient is not in distress; dressed in casual attire, scruffy facial hair but adequate hygiene; mood is described as ok and affect congruent; eye contact appropriate; intermittent tongue fasciculation, likely TD; Speech normal rate, volume, prosody; no psychomotor agitation; thought process is goal oriented on some topics but can become tangential; Thought content is on discharge home; also on various past events; can be goal oriented when discussing specific topics; intermittent Paranoid and delusional thinking present; no SI/HI. Denies AVH; some internal preoccupation; Patients insight and judgment are adequate and at baseline Diagnostics Vital Signs (24Hr): Vital Signs - 24 hr 11/13/21 18:10 11/14/21 06:00 Temperature 97.2 F 97.4 F Pulse Rate 89 88 Respiratory Rate 18 Blood Pressure 115/73 124/78 Pulse Oximetry 99 BMI result Body Mass Index 29.6 Labs Results: 11/11/21 07:59 11/04/21 08:25 Medications Medications Current Medications Acetaminophen (Acetaminophen 325 Mg Tablet) 650 mg PO Q6H PRN PRN Reason: Headache/Pain Mild Scale (1-3) Last Admin: 10/22/21 05:55 Dose: 650 mg Al Hydroxide/Mg Hydroxide (Magnesium Hydrox/Alum Hydrox 30 Ml Oral.Susp) 30 ml PO Q6H PRN PRN Reason: Heartburn/Nausea Last Admin: 11/13/21 16:51 Dose: 30 ml Albuterol Sulfate (Albuterol Sulfate 90 Mcg 8 Gm Inhaler) 2 puff INHALE RQ4H PRN PRN Reason: Shortness of Breath/Wheezing Last Admin: 11/14/21 12:37 Dose: 2 puff Artificial Tears (Artificial Tears 15 Ml Drops) 2 drop EYE-BOTH Q4H PRN PRN Reason: Dry Eyes Last Admin: 11/14/21 12:37 Dose: 2 drop Ascorbic Acid (Ascorbic Acid 250 Mg Tablet) 250 mg PO DAILY [facility] Last Admin: 11/14/21 08:28 Dose: 250 mg Bacitracin (Bacitracin Oint 14 Gm Tube) 1 appl TOPICAL DAILY [facility]; Protocol Last Admin: 11/14/21 10:12 Dose: 1 appl Carbamazepine (Carbamazepine Er 100 Mg Tab.Er.12h) 500 mg PO BID [facility] Last Admin: 11/14/21 10:02 Dose: 500 mg Famotidine (Famotidine 20 Mg Tablet) 20 mg PO Q12H [facility] Last Admin: 11/14/21 08:28 Dose: 20 mg Fluticasone/Vilanterol (Fluticasone/Vilanterol 100/25 Blst.W.Dev) 1 puff INHALE RDAILY [facility] Last Admin: 11/14/21 10:02 Dose: 1 puff Hydroxyzine HCl (Hydroxyzine Hcl 50 Mg Tablet) 50 mg PO Q6H PRN PRN Reason: Anxiety Last Admin: 11/14/21 12:35 Dose: 50 mg Ibuprofen (Ibuprofen 600 Mg Tablet) 600 mg PO Q8H PRN PRN Reason: Pain, Mild (Pain Scale 1-3) Last Admin: 11/14/21 12:35 Dose: 600 mg Loperamide HCl (Loperamide Hcl 2 Mg Capsule) 2 mg PO Q6H PRN PRN Reason: loose stool Magnesium Hydroxide (Milk Of Magnesia 30 Ml Oral.Susp) 30 ml PO DAILY PRN PRN Reason: Constipation Last Admin: 11/09/21 14:15 Dose: 30 ml Nicotine Polacrilex (Nicotine Polacrilex 2 Mg Gum) 4 mg BUCCAL Q1H PRN PRN Reason: Nicotine Cravings Last Admin: 11/14/21 06:07 Dose: 4 mg Perphenazine (Perphenazine 8 Mg Tablet) 16 mg PO TID [facility] Last Admin: 11/14/21 08:28 Dose: 16 mg Pravastatin Sodium (Pravastatin Sodium 40 Mg Tablet) 40 mg PO BEDTIME [facility] Last Admin: 11/13/21 22:23 Dose: 40 mg Prazosin HCl (Prazosin Hcl 1 Mg Capsule) 2 mg PO BEDTIME [facility]; Protocol Last Admin: 11/13/21 22:24 Dose: 2 mg Quetiapine Fumarate (Quetiapine Fumarate 200 Mg Tablet) 200 mg PO BID@0900,1400 [facility] Last Admin: 11/14/21 08:28 Dose: 200 mg Quetiapine Fumarate (Quetiapine Fumarate 400 Mg Tablet) 400 mg PO BEDTIME [facility] Last Admin: 11/13/21 22:23 Dose: 400 mg Tamsulosin HCl (Tamsulosin Hcl 0.4 Mg Capsule) 0.4 mg PO BEDTIME [facility] Last Admin: 11/13/21 22:24 Dose: 0.4 mg Trazodone HCl (Trazodone Hcl 50 Mg Tablet) 50 mg PO BEDTIME PRN PRN Reason: continued insomnia Last Admin: 11/11/21 23:41 Dose: 50 mg Trazodone HCl (Trazodone Hcl 50 Mg Tablet) 150 mg PO BEDTIME [facility] Last Admin: 11/13/21 22:20 Dose: 150 mg Vitamin E (Vitamin E (Dl,Tocopheryl Acet) 180 Mg (400 Unit) Capsule) 180 mg PO BID [facility] Last Admin: 11/14/21 08:28 Dose: 180 mg Allergies Allergies Allergy/AdvReac Type Severity Reaction Status Date / Time divalproex sodium Allergy Severe PANCREATITI Verified 09/24/21 09:22 [From DEPAKOTE] S haloperidol [From Haldol] Allergy Intermediate DYSTONIC Verified 09/24/21 09:22 REACTION Assessment & Plan Assessment & Plan (1) Schizoaffective disorder: Status: Acute Code(s): F25.9 - Schizoaffective disorder, unspecified Plan Patient is a 51-year-old male with history of schizoaffective disorder who presents for increasing symptoms and med noncompliance in the face of his father's recent . Patient reports that his father this past September; he's sad about it but shared a fond memory with resume writer. Since then he stopped taking Clozaril and lithium -patient has odd behaviors, disorganized speech and is [id number] in manic due to the combined effect of dealing with father and coming off Clozaril and lithium; patient is pleasant and friendly however -patient willing to start Seroquel which he said he took decades ago and was helpful; not willing to try much else at the moment 10/17 patient remains mild to moderately manic with somewhat/bizarre behaviors, internally preoccupied; is friendly and polite otherwise. Would like Seroquel increased. Patient used to be client of [facility]; now that his father is gone he may again require such services. Social Work inquiring 10/18 increasing angry age to patient's dialoguing; a little more intrusive with others and confrontational but still easily redirected. Would like Flomax which he says he took as an outpatient. Not sure if patient has urinary retention or is just holding his urine as he was able to go on his own to avoid being straight cathed. Agrees to increasing Seroquel 10/19 patient reports sleeping well last night; little less intense, a little less manic today. Perhaps increased Seroquel dose is taking effect. Will continue to monitor 10/20 pt seems a little more organized in both speech and behavior; will see if he can further stabilize on current Seroquel dose before raising 10/21 remains vacillating between organized/disorganized need more collateral about baseline 10/22 agrees to go up on Seroquel; He is already at a high dose of perphenazine; if patient does not further stabilize and go back to sleeping will have to consider another medication 10/25 Not sleeping; does not want to get back on clozapine even at a very low dose. Says prefers Thorazine if needed. Still disorganized with speech and behavior though less manicky than on admission 10/26 again not sleeping; patient a little more edgy and irritable today. Will try to help patient sleep with increased trazodone; hoping not to have to add another antipsychotic 10/28 patient irritable; agrees to retry lithium at a low dose to see if it can augment Seroquel and be enough. He says he gets diarrhea he is going to stop lithium 10/29 Pt continues lithium trial. Will trial prazosin for nightmares, hyperarousal.d/c lithium, 10/30 start tegretol ER 100 mg BID for mood stability 10/31 continue tegretol ER trial, denies adverse effects 11/01/21 Continue current plan of care 11/02/21 Continue current plan of care 11/03/21 patient did not tolerate lithium; was started on Tegretol and reports he is feeling a lot better and less manic. Patient does is fact seem more organized in speech and remains so for longer. No nightmares since starting prazosin. Trouble sleeping and agrees to increase trazodone. Discussed medication dosing and side effects and patient understands and agrees to leave things the way they are for now. Will again get collateral on patient's baseline. [facility] being set up 11/04 slept through night last night; remains cooperative overall organized. 11/05 Given continued paranoid delusional thinking, discussed and patient agreed with increasing Tegretol 11/08: continue current mgmt 11/09: continue current regimen.? if pt does not sleep tonight, increase tegretol to 400 BID tomorrow. 11/10: no change in presentation.? incr tegretol to 400 BID. 11/11 patient is better than on admission though not at baseline. It is not clear if he will be able to achieve baseline without clozapine. Also not clear if targeted symptoms are decreasing hypomania or decreasing disorganized/psychotic symptoms which is complicated by the theoretical risk that increasing Tegretol can lower the efficacy of Seroquel. Patient amenable to increasing Tegretol but wary of increasing Seroquel passed FDA recommended max dose. Will leave Tegretol at 400 b.i.d. for another day or so; patient's sister said she is going to get another family member to try to convince patient to take a little bit of clozapine. 11/12 stabilizing 11/14 less odd, and calm; still makes odd comments and has odd behaviors at times but not really intrusive to others. Family says he is pretty much at baseline Plan: 3 day notice Q 15 minute checks Tegretol ER 500mg BID *(may lower efficacy of Seroquel) LABS reviewed: CBC, Lytes, Liver WNL Tegeretol level (on 100mg bid): 2.7 subtherapeutic, Prazosin 1 mg q.h.s. for nightmares Continue Flomax 0.4 mg q.h.s.; patient finds helpful Continue perphenazine 16 mg t.i.d. Continue Seroquel 200mg BID 0900/1400 and Continue Seroquel 400mg q.h.s.; INCREASED TO trazodone 150mg qhs scheduled with 50mg prn Will continue to use collateral Regarding patient's baseline re-application for [facility]CS services I spent minutes with the patient and/or on the patient floor today, greater than?50% of which was spent counseling/coordinating care. Patient educated on: medication risk/benefits Informed Consent: understands Reason for contiued inpatient stay Substantial Risk for: stable for discharge
[2021-11-14 18:00] VITALS: BP 149/79; PULSE 73; RESP 16; TEMP 36.9
[2021-11-14] MEDS: traZODone HCL 50 MG TABLET 150 MG PO (22:49)
[2021-11-14] MEDS: Prazosin HCL 1 MG CAPSULE 2 MG PO (22:49)
[2021-11-14] MEDS: QUEtiapine Fumarate 400 MG TABLET PO (22:50)
[2021-11-14] MEDS: Tamsulosin HCL 0.4 MG CAPSULE PO (22:50)
[2021-11-14] MEDS: Pravastatin Sodium 40 MG TABLET PO (22:50)
[2021-11-14] MEDS: traZODone HCL 50 MG TABLET PO (23:45)
[2021-11-15] MEDS: Nicotine Polacrilex 2 MG GUM 4 MG BUCCAL ×9 (04:33→23:12)
[2021-11-15] MEDS: Artificial Tears 15 ML DROPS 2 DROP EYE-BOTH ×4 (04:37→23:52)
[2021-11-15 06:00] VITALS: BP 138/85; PULSE 78; RESP 16; TEMP 36.1; O2SAT 98
[2021-11-15] MEDS: hydrOXYzine HCL 50 MG TABLET PO ×3 (06:46→23:50)
[2021-11-15] MEDS: Albuterol Sulfate 90 MCG 8 GM INHALER 2 PUFF INHALE ×4 (06:48→23:52)
[2021-11-15] MEDS: Ibuprofen 600 MG TABLET PO ×3 (06:50→23:53)
[2021-11-15] MEDS: Fluticasone/Vilanterol 100/25 BLST.W.DEV 1 PUFF INHALE (08:24)
[2021-11-15] MEDS: carBAMazepine ER 100 MG TAB.ER.12H 500 MG PO ×2 (08:25→20:07)
[2021-11-15] MEDS: Ascorbic Acid 250 MG TABLET PO (08:25)
[2021-11-15] MEDS: QUEtiapine Fumarate 200 MG TABLET PO ×2 (08:25→14:50)
[2021-11-15] MEDS: Vitamin E (Dl,Tocopheryl Acet) 180 MG (400 UNIT) CAPSULE PO ×2 (08:25→20:08)
[2021-11-15] MEDS: Perphenazine 8 MG TABLET 16 MG PO ×3 (08:25→20:08)
[2021-11-15] MEDS: Famotidine 20 MG TABLET PO ×2 (08:26→20:08)
--- NOTE | 2021-11-15 14:13 | P.PNPSI_ITS ---
Subjective Subjective Date of Service: 11/15/21 Reason For Visit: Schizoaffetive disorder, bipolar type Subjective Notes: 3 Day Interim History: Met with patient. Discussed with Nursing. per note 11/14/21: less odd, and calm; still makes odd comments and has odd behaviors at times but not really intrusive to others. Family says he is pretty much at baseline Has been hypersexual. Sleep poor. Today he reports wanting discharge but is extremely difficult to make out in terms of having an organized conversation. Was talking about philosphy and his name is Gokul, then talked about we had then having a female dentist then having a cousin that was on the [place]. Review of Systems Review of Systems Yes Unobtainable due to mental status Mental Status Exam Mental Status Exam Narrative: Fair self-care. Pressured. Loose associations. No evidence of SI or HI. Does appear internally preoccupied. Insight and judgment limited Diagnostics Vital Signs (24Hr): Vital Signs - 24 hr 11/14/21 18:00 11/15/21 06:00 Temperature 98.4 F 97.0 F Pulse Rate 73 78 Respiratory Rate 16 16 Blood Pressure 149/79 H 138/85 Pulse Oximetry 98 BMI result Body Mass Index 29.6 Labs Results: 11/11/21 07:59 11/04/21 08:25 Medications Medications Current Medications Acetaminophen (Acetaminophen 325 Mg Tablet) 650 mg PO Q6H PRN PRN Reason: Headache/Pain Mild Scale (1-3) Last Admin: 10/22/21 05:55 Dose: 650 mg Al Hydroxide/Mg Hydroxide (Magnesium Hydrox/Alum Hydrox 30 Ml Oral.Susp) 30 ml PO Q6H PRN PRN Reason: Heartburn/Nausea Last Admin: 11/13/21 16:51 Dose: 30 ml Albuterol Sulfate (Albuterol Sulfate 90 Mcg 8 Gm Inhaler) 2 puff INHALE RQ4H PRN PRN Reason: Shortness of Breath/Wheezing Last Admin: 11/15/21 11:46 Dose: 2 puff Artificial Tears (Artificial Tears 15 Ml Drops) 2 drop EYE-BOTH Q4H PRN PRN Reason: Dry Eyes Last Admin: 11/15/21 11:46 Dose: 2 drop Ascorbic Acid (Ascorbic Acid 250 Mg Tablet) 250 mg PO DAILY DAVY Last Admin: 11/15/21 08:25 Dose: 250 mg Bacitracin (Bacitracin Oint 14 Gm Tube) 1 appl TOPICAL DAILY [facility]; Protocol Last Admin: 11/15/21 09:36 Dose: Not Given Carbamazepine (Carbamazepine Er 100 Mg Tab.Er.12h) 500 mg PO BID [facility] Last Admin: 11/15/21 08:25 Dose: 500 mg Famotidine (Famotidine 20 Mg Tablet) 20 mg PO Q12H [facility] Last Admin: 11/15/21 08:26 Dose: 20 mg Fluticasone/Vilanterol (Fluticasone/Vilanterol 100/25 Blst.W.Dev) 1 puff INHALE RDAILY [facility] Last Admin: 11/15/21 08:24 Dose: 1 puff Hydroxyzine HCl (Hydroxyzine Hcl 50 Mg Tablet) 50 mg PO Q6H PRN PRN Reason: Anxiety Last Admin: 11/15/21 06:46 Dose: 50 mg Ibuprofen (Ibuprofen 600 Mg Tablet) 600 mg PO Q8H PRN PRN Reason: Pain, Mild (Pain Scale 1-3) Last Admin: 11/15/21 06:50 Dose: 600 mg Loperamide HCl (Loperamide Hcl 2 Mg Capsule) 2 mg PO Q6H PRN PRN Reason: loose stool Magnesium Hydroxide (Milk Of Magnesia 30 Ml Oral.Susp) 30 ml PO DAILY PRN PRN Reason: Constipation Last Admin: 11/09/21 14:15 Dose: 30 ml Nicotine Polacrilex (Nicotine Polacrilex 2 Mg Gum) 4 mg BUCCAL Q1H PRN PRN Reason: Nicotine Cravings Last Admin: 11/15/21 11:40 Dose: 4 mg Perphenazine (Perphenazine 8 Mg Tablet) 16 mg PO TID [facility]Y Last Admin: 11/15/21 08:25 Dose: 16 mg Pravastatin Sodium (Pravastatin Sodium 40 Mg Tablet) 40 mg PO BEDTIME [facility] Last Admin: 11/14/21 22:50 Dose: 40 mg Prazosin HCl (Prazosin Hcl 1 Mg Capsule) 2 mg PO BEDTIME [facility]; Protocol Last Admin: 11/14/21 22:49 Dose: 2 mg Quetiapine Fumarate (Quetiapine Fumarate 200 Mg Tablet) 200 mg PO BID@0900,1400 [facility] Last Admin: 11/15/21 08:25 Dose: 200 mg Quetiapine Fumarate (Quetiapine Fumarate 400 Mg Tablet) 400 mg PO BEDTIME [facility] Last Admin: 11/14/21 22:50 Dose: 400 mg Sodium Biphosphate/Sodium Phosphate (Sodium Phosphate,[place]-Dibasic 133 Ml Enema) 133 ml [place] DAILY PRN PRN Reason: Constipation Tamsulosin HCl (Tamsulosin Hcl 0.4 Mg Capsule) 0.4 mg PO BEDTIME [facility] Last Admin: 11/14/21 22:50 Dose: 0.4 mg Trazodone HCl (Trazodone Hcl 50 Mg Tablet) 50 mg PO BEDTIME PRN PRN Reason: continued insomnia Last Admin: 11/14/21 23:45 Dose: 50 mg Trazodone HCl (Trazodone Hcl 50 Mg Tablet) 150 mg PO BEDTIME [facility] Last Admin: 11/14/21 22:49 Dose: 150 mg Vitamin E (Vitamin E (Dl,Tocopheryl Acet) 180 Mg (400 Unit) Capsule) 180 mg PO BID [facility] Last Admin: 11/15/21 08:25 Dose: 180 mg Allergies Allergies Allergy/AdvReac Type Severity Reaction Status Date / Time divalproex sodium Allergy Severe PANCREATITI Verified 09/24/21 09:22 [From DEPAKOTE] S haloperidol [From Haldol] Allergy Intermediate DYSTONIC Verified 09/24/21 09:22 REACTION Assessment & Plan Assessment & Plan (1) Schizoaffective disorder: Status: Acute Code(s): F25.9 - Schizoaffective disorder, unspecified Plan Patient is a 51-year-old male with history of schizoaffective disorder who presents for increasing symptoms and med noncompliance in the face of his father's recent . Patient reports that his father this past September; he's sad about it but shared a fond memory with creative services writer. Since then he stopped taking Clozaril and lithium -patient has odd behaviors, disorganized speech and is [id number] in manic due to the combined effect of dealing with father and coming off Clozaril and lithium; patient is pleasant and friendly however -patient willing to start Seroquel which he said he took decades ago and was helpful; not willing to try much else at the moment 10/17 patient remains mild to moderately manic with somewhat/bizarre behaviors, internally preoccupied; is friendly and polite otherwise. Would like Seroquel increased. Patient used to be client of [facility]; now that his father is gone he may again require such services. Social Work inquiring 10/18 increasing angry age to patient's dialoguing; a little more intrusive with others and confrontational but still easily redirected. Would like Flomax which he says he took as an outpatient. Not sure if patient has urinary retention or is just holding his urine as he was able to go on his own to avoid being straight cathed. Agrees to increasing Seroquel 10/19 patient reports sleeping well last night; little less intense, a little less manic today. Perhaps increased Seroquel dose is taking effect. Will continue to monitor 10/20 pt seems a little more organized in both speech and behavior; will see if he can further stabilize on current Seroquel dose before raising 10/21 remains vacillating between organized/disorganized need more collateral about baseline 10/22 agrees to go up on Seroquel; He is already at a high dose of perphenazine; if patient does not further stabilize and go back to sleeping will have to consider another medication 10/25 Not sleeping; does not want to get back on clozapine even at a very low dose. Says prefers Thorazine if needed. Still disorganized with speech and behavior though less manicky than on admission 10/26 again not sleeping; patient a little more edgy and irritable today. Will try to help patient sleep with increased trazodone; hoping not to have to add another antipsychotic 10/28 patient irritable; agrees to retry lithium at a low dose to see if it can augment Seroquel and be enough. He says he gets diarrhea he is going to stop lithium 10/29 Pt continues lithium trial. Will trial prazosin for nightmares, hyperarousal.d/c lithium, 10/30 start tegretol ER 100 mg BID for mood stability 10/31 continue tegretol ER trial, denies adverse effects 11/01/21 Continue current plan of care 11/02/21 Continue current plan of care 11/03/21 patient did not tolerate lithium; was started on Tegretol and reports he is feeling a lot better and less manic. Patient does is fact seem more organized in speech and remains so for longer. No nightmares since starting prazosin. Trouble sleeping and agrees to increase trazodone. Discussed medication dosing and side effects and patient understands and agrees to leave things the way they are for now. Will again get collateral on patient's baseline. [facility] being set up 11/04 slept through night last night; remains cooperative overall organized. 11/05 Given continued paranoid delusional thinking, discussed and patient agreed with increasing Tegretol 11/08: continue current mgmt 11/09: continue current regimen.? if pt does not sleep tonight, increase tegretol to 400 BID tomorrow. 11/10: no change in presentation.? incr tegretol to 400 BID. 11/11 patient is better than on admission though not at baseline. It is not clear if he will be able to achieve baseline without clozapine. Also not clear if targeted symptoms are decreasing hypomania or decreasing disorganized/psychotic symptoms which is complicated by the theoretical risk that increasing Tegretol can lower the efficacy of Seroquel. Patient amenable to increasing Tegretol but wary of increasing Seroquel passed FDA recommended max dose. Will leave Tegretol at 400 b.i.d. for another day or so; patient's sister said she is going to get another family member to try to convince patient to take a little bit of clozapine. 11/12 stabilizing 11/14 less odd, and calm; still makes odd comments and has odd behaviors at times but not really intrusive to others. Family says he is pretty much at baseline 11/15/2021: No changes to current treatment plan Plan: 3 day notice Q 15 minute checks Tegretol ER 500mg BID *(may lower efficacy of Seroquel) LABS reviewed: CBC, Lytes, Liver WNL Tegeretol level (on 100mg bid): 2.7 subtherapeutic, Prazosin 1 mg q.h.s. for nightmares Continue Flomax 0.4 mg q.h.s.; patient finds helpful Continue perphenazine 16 mg t.i.d. Continue Seroquel 200mg BID 0900/1400 and Continue Seroquel 400mg q.h.s.; INCREASED TO trazodone 150mg qhs scheduled with 50mg prn Will continue to use collateral Regarding patient's baseline re-application for DM/ACCS services I spent minutes with the patient and/or on the patient floor today, soo parkinson?50% of which was spent counseling/coordinating care. Reason for contiued inpatient stay Substantial Risk for: rapid decompensation
[2021-11-15 18:00] VITALS: BP 119/78; PULSE 82; RESP 16; TEMP 36.4; O2SAT 98
[2021-11-15] MEDS: Bacitracin Oint 14 GM TUBE 1 APPL TOPICAL (18:31)
[2021-11-15] MEDS: Pravastatin Sodium 40 MG TABLET PO (20:07)
[2021-11-15] MEDS: Tamsulosin HCL 0.4 MG CAPSULE PO (20:08)
[2021-11-15] MEDS: Prazosin HCL 1 MG CAPSULE 2 MG PO (20:08)
[2021-11-15] MEDS: QUEtiapine Fumarate 400 MG TABLET PO (20:08)
[2021-11-15] MEDS: traZODone HCL 50 MG TABLET 150 MG PO (20:09)
[2021-11-16] MEDS: Nicotine Polacrilex 2 MG GUM 4 MG BUCCAL ×7 (00:19→20:54)
[2021-11-16] MEDS: traZODone HCL 50 MG TABLET PO (00:44)
--- NOTE | 2021-11-16 02:45 | PC.NURSE ---
Pt was at the med window numerous times throughout the shift, including every hour for nicotine gum. He was not receptive to reminders on the recommended method of using the gum, but after several attempts to encourage him to stop chewing the gum nonstop, he agreed to try ?pocketing? per recommended use and accepted written instructions as a reminder. ??Pt requested ointment for several short fingernails he said was the result of ?self-mutilation.? Pt was observed continuing to chew his fingernails even while describing it as self-mutilation. He was not receptive to redirection. ??Pt was educated Trazodone has a short window of effectiveness and to take it only if he is going to bed. Pt verbalized understanding and agreed.
[2021-11-16] MEDS: hydrOXYzine HCL 50 MG TABLET PO ×2 (06:24→17:01)
[2021-11-16] MEDS: carBAMazepine ER 100 MG TAB.ER.12H 500 MG PO ×2 (08:32→22:45)
[2021-11-16] MEDS: Ascorbic Acid 250 MG TABLET PO (08:32)
[2021-11-16] MEDS: Famotidine 20 MG TABLET PO ×2 (08:32→22:46)
[2021-11-16] MEDS: Vitamin E (Dl,Tocopheryl Acet) 180 MG (400 UNIT) CAPSULE PO ×2 (08:32→22:46)
[2021-11-16] MEDS: Fluticasone/Vilanterol 100/25 BLST.W.DEV 1 PUFF INHALE (08:32)
[2021-11-16] MEDS: QUEtiapine Fumarate 200 MG TABLET PO ×2 (08:33→14:16)
[2021-11-16] MEDS: Perphenazine 8 MG TABLET 16 MG PO ×3 (08:33→22:46)
--- NOTE | 2021-11-16 11:35 | P.PNPSI_ITS ---
Subjective Subjective Date of Service: 11/16/21 Reason For Visit: Schizoaffetive disorder, bipolar type Subjective Notes: 3 Day Interim History: Met with patient. Discussed with Nursing. Did appear more organized today. It has been less hypersexual. Remains focused on discharge. Still internally preoccupied at times. Note this is likely consistent with baseline. Has cuts on his hands, that appear to be healing okay without evidence of cellulitis.. Medication Compliance: Yes Side effects from medications: No Attending Groups: No Review of Systems Acute medical concerns: No Review of Systems Review of Systems Unremarkable Mental Status Exam Mental Status Exam Narrative: Fair self-care. Less pressure. More organized. Denied depression. No evidence of SI or HI. Does appear internally preoccupied. Insight and judgment limited Diagnostics Vital Signs (24Hr): Vital Signs - 24 hr 11/15/21 18:00 Temperature 97.6 F Pulse Rate 82 Respiratory Rate 16 Blood Pressure 119/78 Pulse Oximetry 98 Oxygen Delivery Method Room Air BMI result Body Mass Index 29.6 Labs Results: 11/11/21 07:59 11/04/21 08:25 Medications Medications Current Medications Acetaminophen (Acetaminophen 325 Mg Tablet) 650 mg PO Q6H PRN PRN Reason: Headache/Pain Mild Scale (1-3) Last Admin: 10/22/21 05:55 Dose: 650 mg Al Hydroxide/Mg Hydroxide (Magnesium Hydrox/Alum Hydrox 30 Ml Oral.Susp) 30 ml PO Q6H PRN PRN Reason: Heartburn/Nausea Last Admin: 11/13/21 16:51 Dose: 30 ml Albuterol Sulfate (Albuterol Sulfate 90 Mcg 8 Gm Inhaler) 2 puff INHALE RQ4H PRN PRN Reason: Shortness of Breath/Wheezing Last Admin: 11/15/21 23:52 Dose: 2 puff Artificial Tears (Artificial Tears 15 Ml Drops) 2 drop EYE-BOTH Q4H PRN PRN Reason: Dry Eyes Last Admin: 11/15/21 23:52 Dose: 2 drop Ascorbic Acid (Ascorbic Acid 250 Mg Tablet) 250 mg PO DAILY DAVY Last Admin: 11/16/21 08:32 Dose: 250 mg Bacitracin (Bacitracin Oint 14 Gm Tube) 1 appl TOPICAL DAILY [facility]; Protocol Last Admin: 11/16/21 08:35 Dose: Not Given Carbamazepine (Carbamazepine Er 100 Mg Tab.Er.12h) 500 mg PO BID [facility] Last Admin: 11/16/21 08:32 Dose: 500 mg Famotidine (Famotidine 20 Mg Tablet) 20 mg PO Q12H [facility] Last Admin: 11/16/21 08:32 Dose: 20 mg Fluticasone/Vilanterol (Fluticasone/Vilanterol 100/25 Blst.W.Dev) 1 puff INHALE RDAILY [facility] Last Admin: 11/16/21 08:32 Dose: 1 puff Hydroxyzine HCl (Hydroxyzine Hcl 50 Mg Tablet) 50 mg PO Q6H PRN PRN Reason: Anxiety Last Admin: 11/16/21 06:24 Dose: 50 mg Ibuprofen (Ibuprofen 600 Mg Tablet) 600 mg PO Q8H PRN PRN Reason: Pain, Mild (Pain Scale 1-3) Last Admin: 11/15/21 23:53 Dose: 600 mg Loperamide HCl (Loperamide Hcl 2 Mg Capsule) 2 mg PO Q6H PRN PRN Reason: loose stool Magnesium Hydroxide (Milk Of Magnesia 30 Ml Oral.Susp) 30 ml PO DAILY PRN PRN Reason: Constipation Last Admin: 11/09/21 14:15 Dose: 30 ml Nicotine Polacrilex (Nicotine Polacrilex 2 Mg Gum) 4 mg BUCCAL Q1H PRN PRN Reason: Nicotine Cravings Last Admin: 11/16/21 08:33 Dose: 4 mg Perphenazine (Perphenazine 8 Mg Tablet) 16 mg PO TID [facility] Last Admin: 11/16/21 08:33 Dose: 16 mg Pravastatin Sodium (Pravastatin Sodium 40 Mg Tablet) 40 mg PO BEDTIME [facility] Last Admin: 11/15/21 20:07 Dose: 40 mg Prazosin HCl (Prazosin Hcl 1 Mg Capsule) 2 mg PO BEDTIME [facility]; Protocol Last Admin: 11/15/21 20:08 Dose: 2 mg Quetiapine Fumarate (Quetiapine Fumarate 200 Mg Tablet) 200 mg PO BID@0900,1400 [facility] Last Admin: 11/16/21 08:33 Dose: 200 mg Quetiapine Fumarate (Quetiapine Fumarate 400 Mg Tablet) 400 mg PO BEDTIME [facility] Last Admin: 11/15/21 20:08 Dose: 400 mg Sodium Biphosphate/Sodium Phosphate (Sodium Phosphate,[place]-Dibasic 133 Ml Enema) 133 ml [place] DAILY PRN PRN Reason: Constipation Tamsulosin HCl (Tamsulosin Hcl 0.4 Mg Capsule) 0.4 mg PO BEDTIME [facility] Last Admin: 11/15/21 20:08 Dose: 0.4 mg Trazodone HCl (Trazodone Hcl 50 Mg Tablet) 50 mg PO BEDTIME PRN PRN Reason: continued insomnia Last Admin: 11/16/21 00:44 Dose: 50 mg Trazodone HCl (Trazodone Hcl 50 Mg Tablet) 150 mg PO BEDTIME [facility] Last Admin: 11/15/21 20:09 Dose: 150 mg Vitamin E (Vitamin E (Dl,Tocopheryl Acet) 180 Mg (400 Unit) Capsule) 180 mg PO BID [facility] Last Admin: 11/16/21 08:32 Dose: 180 mg Allergies Allergies Allergy/AdvReac Type Severity Reaction Status Date / Time divalproex sodium Allergy Severe PANCREATITI Verified 09/24/21 09:22 [From DEPAKOTE] S haloperidol [From Haldol] Allergy Intermediate DYSTONIC Verified 09/24/21 09:22 REACTION Assessment & Plan Assessment & Plan (1) Schizoaffective disorder: Status: Acute Code(s): F25.9 - Schizoaffective disorder, unspecified Plan Patient is a 51-year-old male with history of schizoaffective disorder who presents for increasing symptoms and med noncompliance in the face of his father's recent . Patient reports that his father this past September; he's sad about it but shared a fond memory with com writer. Since then he stopped taking Clozaril and lithium -patient has odd behaviors, disorganized speech and is [id number] in manic due to the combined effect of dealing with father and coming off Clozaril and lithium; patient is pleasant and friendly however -patient willing to start Seroquel which he said he took decades ago and was helpful; not willing to try much else at the moment 10/17 patient remains mild to moderately manic with somewhat/bizarre behaviors, internally preoccupied; is friendly and polite otherwise. Would like Seroquel increased. Patient used to be client of [facility]; now that his father is gone he may again require such services. Social Work inquiring 10/18 increasing angry age to patient's dialoguing; a little more intrusive with others and confrontational but still easily redirected. Would like Flomax which he says he took as an outpatient. Not sure if patient has urinary retention or is just holding his urine as he was able to go on his own to avoid being straight cathed. Agrees to increasing Seroquel 10/19 patient reports sleeping well last night; little less intense, a little less manic today. Perhaps increased Seroquel dose is taking effect. Will continue to monitor 10/20 pt seems a little more organized in both speech and behavior; will see if he can further stabilize on current Seroquel dose before raising 10/21 remains vacillating between organized/disorganized need more collateral about baseline 10/22 agrees to go up on Seroquel; He is already at a high dose of perphenazine; if patient does not further stabilize and go back to sleeping will have to consider another medication 10/25 Not sleeping; does not want to get back on clozapine even at a very low dose. Says prefers Thorazine if needed. Still disorganized with speech and behavior though less manicky than on admission 10/26 again not sleeping; patient a little more edgy and irritable today. Will try to help patient sleep with increased trazodone; hoping not to have to add another antipsychotic 10/28 patient irritable; agrees to retry lithium at a low dose to see if it can augment Seroquel and be enough. He says he gets diarrhea he is going to stop lithium 10/29 Pt continues lithium trial. Will trial prazosin for nightmares, hyperarousal.d/c lithium, 10/30 start tegretol ER 100 mg BID for mood stability 10/31 continue tegretol ER trial, denies adverse effects 11/01/21 Continue current plan of care 11/02/21 Continue current plan of care 11/03/21 patient did not tolerate lithium; was started on Tegretol and reports he is feeling a lot better and less manic. Patient does is fact seem more organized in speech and remains so for longer. No nightmares since starting prazosin. Trouble sleeping and agrees to increase trazodone. Discussed medication dosing and side effects and patient understands and agrees to leave things the way they are for now. Will again get collateral on patient's baseline. [facility] being set up 11/04 slept through night last night; remains cooperative overall organized. 11/05 Given continued paranoid delusional thinking, discussed and patient agreed with increasing Tegretol 11/08: continue current mgmt 11/09: continue current regimen.? if pt does not sleep tonight, increase tegretol to 400 BID tomorrow. 11/10: no change in presentation.? incr tegretol to 400 BID. 11/11 patient is better than on admission though not at baseline. It is not clear if he will be able to achieve baseline without clozapine. Also not clear if targeted symptoms are decreasing hypomania or decreasing disorganized/psychotic symptoms which is complicated by the theoretical risk that increasing Tegretol can lower the efficacy of Seroquel. Patient amenable to increasing Tegretol but wary of increasing Seroquel passed FDA recommended max dose. Will leave Tegretol at 400 b.i.d. for another day or so; patient's sister said she is going to get another family member to try to convince patient to take a little bit of clozapine. 11/12 stabilizing 11/14 less odd, and calm; still makes odd comments and has odd behaviors at times but not really intrusive to others. Family says he is pretty much at baseline 11/16/2021: No changes to current treatment plan Plan: 3 day notice Q 15 minute checks Tegretol ER 500mg BID *(may lower efficacy of Seroquel) LABS reviewed: CBC, Lytes, Liver WNL Tegeretol level (on 100mg bid): 2.7 subtherapeutic, Prazosin 1 mg q.h.s. for nightmares Continue Flomax 0.4 mg q.h.s.; patient finds helpful Continue perphenazine 16 mg t.i.d. Continue Seroquel 200mg BID 0900/1400 and Continue Seroquel 400mg q.h.s.; INCREASED TO trazodone 150mg qhs scheduled with 50mg prn Will continue to use collateral Regarding patient's baseline re-application for [facility] services I spent minutes with the patient and/or on the patient floor today, greater than?50% of which was spent counseling/coordinating care. Reason for contiued inpatient stay Substantial Risk for: inability to function
[2021-11-16 19:09] VITALS: BP 149/88; PULSE 94; RESP 18; TEMP 36.7; O2SAT 98
[2021-11-16] MEDS: Pravastatin Sodium 40 MG TABLET PO (22:45)
[2021-11-16] MEDS: QUEtiapine Fumarate 400 MG TABLET PO (22:46)
[2021-11-16] MEDS: Tamsulosin HCL 0.4 MG CAPSULE PO (22:46)
[2021-11-17] MEDS: traZODone HCL 50 MG TABLET 150 MG PO (00:09)
[2021-11-17] MEDS: Prazosin HCL 1 MG CAPSULE 2 MG PO (00:10)
[2021-11-17] MEDS: Ibuprofen 600 MG TABLET PO (00:11)
[2021-11-17] MEDS: hydrOXYzine HCL 50 MG TABLET PO (00:14)
[2021-11-17] MEDS: Artificial Tears 15 ML DROPS 2 DROP EYE-BOTH (00:15)
[2021-11-17] MEDS: Nicotine Polacrilex 2 MG GUM 4 MG BUCCAL ×3 (04:27→11:00)
[2021-11-17 06:00] VITALS: BP 131/82; PULSE 84; RESP 18; TEMP 36.4; O2SAT 98
[2021-11-17] MEDS: Ascorbic Acid 250 MG TABLET PO (08:03)
[2021-11-17] MEDS: QUEtiapine Fumarate 200 MG TABLET PO (08:03)
[2021-11-17] MEDS: carBAMazepine ER 100 MG TAB.ER.12H 500 MG PO (08:03)
[2021-11-17] MEDS: Perphenazine 8 MG TABLET 16 MG PO (08:03)
[2021-11-17] MEDS: Vitamin E (Dl,Tocopheryl Acet) 180 MG (400 UNIT) CAPSULE PO (08:03)
[2021-11-17] MEDS: Famotidine 20 MG TABLET PO (08:04)
[2021-11-17 08:12] LABS: Alanine Aminotransferase 31 U/L (0-40); Albumin Level 4.4 g/dL (3.5-5.0); Alkaline Phosphatase 80 U/L (39-117); Aspartate Amino Transferase 23 U/L (5-37); Bilirubin Direct 0.2 mg/dL (0.0-0.5); Bilirubin Total 0.4 mg/dL (0.0-1.0); Total Protein 6.9 g/dL (6.5-8.0)
[2021-11-17 08:30] LABS: Carbamazepine Tegretol 6.8 mcg/mL (5.0-12.0)
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
[2021-11-17] MEDS: Fluticasone/Vilanterol 100/25 BLST.W.DEV 1 PUFF INHALE (09:34)
== END 2021-11-17 13:35 | disposition home or self-care (01) | DRG 885 ==
LOC: HO.ED 17:48 → HO.PM5 10-15 13:31
PROVIDERS: Clinical Nurse Specialist Psychiatric/Mental Health, Adult; Admitting Provider Psychiatry & Neurology Psychiatry; Emergency Provider Student in an Organized Health Care Education/Training Program; PCP Internal Medicine; Visit Provider Psychiatry & Neurology Psychiatry
DX: F25.0 Schizoaffective disorder, bipolar type (principal); J44.9 Chronic obstructive pulmonary disease, unspecified; K21.9 Gastro-esophageal reflux disease without esophagitis; E78.5 Hyperlipidemia, unspecified; K59.00 Constipation, unspecified; Z20.822 Contact with and (suspected) exposure to COVID-19; Z91.14 Patient's other noncompliance with medication regimen; Z87.891 Personal history of nicotine dependence; Z88.8 Allergy status to other drugs, medicaments and biological substances; Z79.51 Long term (current) use of inhaled steroids; Z79.899 Other long term (current) drug therapy
CPT/HCPCS: 36415; 80051; 80053; 80061; 80076; 80156; 80307; 82077; 82607; 82746; 83036; 83735; 84439; 84443; 85025; 87635; 93005; 99285

== ENCOUNTER 2021-11-24 15:04 | Outpatient (REF) | payer OTHER, SELFPAY ==
--- NOTE | ~2021-11-24 | XR_ITS ---
EXAMINATION: XR HAND, RIGHT CLINICAL INFORMATION: Right hand pain COMPARISON: None TECHNIQUE: PA, lateral, and oblique views of the right hand. FINDINGS: The bones and soft tissues are normal. No fracture. Alignment is anatomic. Joint spaces are maintained. No erosions or soft tissue calcifications. XR/XR hand RT 2V IMPRESSION: Normal right hand.
[2021-11-24 16:21] LABS: Cholesterol 202 mg/dL; HDL Cholesterol 44 mg/dL; LDL Cholesterol Calculated 137 mg/dl; Triglycerides 108 mg/dL
== END 2021-11-24 15:05 | disposition home or self-care (01) ==
LOC: HO.XRAY 15:04
PROVIDERS: PCP Internal Medicine; Visit Provider Internal Medicine
DX: E78.5 Hyperlipidemia, unspecified (principal); M79.641 Pain in right hand
CPT/HCPCS: 36415; 73120; 80061

== ENCOUNTER 2021-12-01 13:23 | Inpatient (IN) | payer OTHER, SELFPAY ==
[2021-12-01] VITALS (16 sets, daily range): BP systolic 118–138; BP diastolic 77–92; PULSE 70–109; RESP 16–22; O2SAT 96–99; BMI 26.2
--- NOTE | ~2021-12-01 | US_ITS ---
EXAMINATION: US VENOUS ULTRASOUND WITH DOPPLER LOWER EXTREMITY, BILATERAL CLINICAL INFORMATION:Pedal edema bilaterally COMPARISON: None TECHNIQUE: Ultrasound of the deep veins is performed from the hip to the calf with compression sonography and color and pulse Doppler assessment. Spectral analysis with color-flow imaging is performed. FINDINGS: RIGHT: There is normal venous compression and respiratory variation and augmented flow. The visualized common femoral vein, superficial femoral vein, profunda femoral vein, popliteal vein, and the trifurcation region shows no evidence of deep venous thrombosis. There is no significant popliteal fossa cyst. Right femoral vein is dilated. The right peroneal vein is not seen LEFT: There is normal venous compression and respiratory variation and augmented flow. The visualized common femoral vein, superficial femoral vein, profunda femoral vein, popliteal vein, and the trifurcation region shows no evidence of deep venous thrombosis. There is no significant popliteal fossa cyst. Left peroneal vein and left posterior tibial vein are not seen If the patient's symptoms persist, followup ultrasound in 5 days 7 days might be of value to exclude proximal propagation from a non-visualized calf vein. US/US venous duplex LE IMPRESSION: No DVT demonstrated in the bilateral lower extremity.
--- NOTE | 2021-12-01 13:54 | ED.PSYCH ---
HPI - Psych General Chief Complaint: Psychiatric Symptoms Stated Complaint: SECTION 12 CRISIS Time Seen by Provider: 12/01/21 13:45 Source: patient, EMS and police Mode of arrival: EMS Limitations: no limitations History of Present Illness HPI Narrative: 51-year-old male came in for evaluation of acute psychosis patient was under Section 12 by the police. Patient with known history of schizoaffective disorder found to have increasing symptoms and med noncompliance, patient came in with pressured speech on interrupt bowl, patient is not redirectable, difficult to focus with the examiner. Related Data Previous Rx's Medication Instructions Recorded lovastatin 40 mg tablet 40 mg PO DAILY 30 days #30 tabs 02/27/21 albuterol sulfate 90 mcg/actuation 2 puff inhalation Q4H PRN 11/17/21 aerosol inhaler shortness of breath or wheezing 30 days #1 g ascorbic acid (vitamin C) 250 mg 250 mg PO DAILY 30 days #30 tabs 11/17/21 tablet carbamazepine 400 mg 400 mg PO BID 30 days #60 tabs 11/17/21 tablet,extended release,12 hr cimetidine 300 mg tablet 300 mg PO Q12H 30 days #60 tabs 11/17/21 fluticasone 250 mcg-salmeterol 50 1 inh inhalation BID 30 days #60 ea 11/17/21 mcg/dose blistr powdr for inhalation hydroxyzine pamoate 50 mg capsule 50 mg PO TID PRN anxiety 30 days 11/17/21 #90 caps magnesium hydroxide 400 mg/5 mL 30 ml PO DAILY PRN Constipation 30 11/17/21 oral suspension (Milk of Magnesia) days #355 mL methylcellulose (laxative) 500 mg 500 mg PO BID 30 days #60 tabs 11/17/21 tablet (Citrucel) nicotine (polacrilex) 4 mg gum 4 mg buccal Q1H 30 days #100 ea 11/17/21 perphenazine 8 mg tablet 16 mg PO TID 30 days #180 tabs 11/17/21 polyvinyl alcohol 1.4 % eye drops 2 drp ophthalmic (eye) Q4H PRN Dry 11/17/21 (Artificial Tears (polyvinyl Eyes 30 days #15 mL alcohol)) prazosin 2 mg capsule 2 mg PO BEDTIME 30 days #30 caps 11/17/21 quetiapine 200 mg tablet 200 mg PO BID@0900,1400 30 days 11/17/21 #60 tabs quetiapine 400 mg tablet 400 mg PO BEDTIME 30 days #30 tabs 11/17/21 tamsulosin 0.4 mg capsule 0.4 mg PO BEDTIME 30 days #30 caps 11/17/21 trazodone 150 mg tablet 150 mg PO BEDTIME 30 days #30 tabs 11/17/21 vitamin E 268 mg (400 unit) capsule 1 cap PO BID 30 days #30 caps 11/17/21 carbamazepine 200 mg 400 mg PO BID 30 days #120 caps 11/18/21 capsule,extended release [id number] perphenazine 16 mg tablet 16 mg PO TID 30 days #90 tabs 11/18/21 prazosin 2 mg capsule 2 mg PO BEDTIME 30 days #30 caps 11/18/21 quetiapine 200 mg tablet (Seroquel) 200 mg PO BID@0900,1400 30 days 11/18/21 #60 tabs quetiapine 400 mg tablet (Seroquel) 400 mg PO BEDTIME 30 days #30 tabs 11/18/21 trazodone 150 mg tablet 150 mg PO BEDTIME insomnia 30 days 11/18/21 #30 tabs Allergies Allergy/AdvReac Type Severity Reaction Status Date / Time divalproex sodium Allergy Severe PANCREATITI Verified 11/24/21 14:34 [From DEPAKOTE] S haloperidol [From Haldol] Allergy Intermediate DYSTONIC Verified 11/24/21 14:34 REACTION Review of Systems Review of Systems: Yes Unobtainable due to mental status [facility] Past Medical History Medical History Anxiety COPD (chronic obstructive pulmonary disease) Difficulty sleeping Elevated cholesterol GERD (gastroesophageal reflux disease) Hx of pancreatitis Hyperlipidemia Obesity Schizoaffective disorder Smoker Surgical History History of bilateral cataract extraction History of bunionectomy History of excision of mass Hx of colonoscopy Family History Family History Father Diabetes Mother No problems noted. Paternal Grandfather Gastric cancer Social History Social History Household Members: None Housing: Apartment Are you a primary adult caregiver to a significant other at home: No Do you presently have visiting nurse or other home services: No Alcohol intake: current Alcohol intake frequency: a few times a week Alcohol type: beer Patient Tobacco Use Status: Former Tobacco user Tobacco use type: Cigarette Years Smoked: ~30 e-Cigarette/Vaping Use: Never Used Second Hand Smoke Exposure: No Advance Directives: No Advance Directives Information Provided: No service: No Current occupational status: disabled Sexual orientation: Did not discuss Cognitive needs: No Hearing needs: No Vision needs: No Physical Exam Vital Signs: Vital Signs: Last Vital Signs Pulse 76 12/01/21 19:19 Resp 19 12/01/21 19:19 BP 129/88 12/01/21 19:19 Pulse Ox 97 12/01/21 19:19 O2 Del Method 12/01/21 19:19 BMI result Body Mass Index 26.2 Vital signs have been reviewed as appeared to be correct. Blood pressure normal. Heart rate normal. Respiration rate normal. Temperature normal. Oxygen saturation normal. Appearance: No acute distress. Head: Normal external exam. Normocephalic. Atraumatic. No Jeronimo signs noted. No raccoon eyes noted Eyes: PERRLA. EOMI. Conjunctiva and sclera normal. Eyelids normal. ENT: TM's Normal. Pharynx normal. Uvula midline. Moist mucous membranes. No trismus noted. No drooling noted. No muffled voice noted. Neck: Normal inspection. Neck supple. FROM. No adenopathy. Thyroid Normal. No meningeal signs. No neck mass noted. CVS: Normal heart rate and rhythm. Heart sound normal. No murmurs noted. Pulses normal throughout. Respiratory: No respiratory distress. Painless inspiration. Breath sounds normal. No wheezes/rales/rhonchi noted. Chest nontender. No accessory muscle usage noted or decreased air movement noted. Abdomen: Soft and nontender. Bowel sounds normal in all 4 quadrants. No distention noted. No organomegaly noted. No visible injury noted. Back: No CVA tenderness. Full range of motion noted. Skin: Skin warm and dry. Normal skin color. Normal skin turgor. No rashes/lesions/lacerations noted. Extremities: No lower extremity edema. Extremities exhibit normal range of motion. Extremities nontender. Neuro: Oriented X 3. Cranial nerve exam: II-XII are grossly intact No motor deficit. No sensory deficit. Reflexes normal. Patient Orientation: Person, Place, Time and Situation, okay hygiene and grooming. Fair eye contact, attentive, no tics or tremors. Level of Consciousness: Awake, Appropriate and Alert Patient Behavior: Guarded, unCooperative and Anxious Mood Description: Constricted, Blunted and Apprehensive Affect Description: Constricted, Blunted and Apprehensive Patient Cognition Impaired: No Ability to Follow Directions: Excellent Speech Pattern: pressured speech, uninterrupt below, Memory Description: Intact, Immediate Intact and Short Term Intact Hallucinations: None Delusions: Not Present Thought Process: Intact Thought Content: denies Suicidal Ideation and denies Homicidal Ideation. Depressive Symptoms: Not present. Judgement and Insight: Limited . Course Course Course Narrative: 18:30; 51-year-old male came in with acute psychosis required multiple doses of Zyprexa to calm down, patient was placed in position observation until then evaluated and seen by Chrissie. Reevaluation(s) Reevaluation #1: Evaluated by Chrissie, inpatient bed psych is underway. Time: 21:00 [facility] - Psych Restraints 1: Face to Face Assessment: Current Situation: After assessment of the patient, a review of the pertinent medical record and a discussion with nursing staff, I feel the patient requires a restraint intervention. Reaction To: [] Medical Condition: [] Behavioral State: [] Continued Need: [] Lab Data Attestation: I reviewed the patient's lab results. Result diagrams: 12/01/21 14:30 12/01/21 14:30 Labs: Lab Results 12/01/21 12/01/21 12/01/21 Range/Units 14:30 14:30 14:50 WBC 7.5 (4.8-10.8) X10*3/uL RBC 4.06 L (4.60-5.80) X10*6/uL Hgb 12.5 L (14.0-18.0) g/dl Hct 38.4 L (42.0-52.0) % MCV 94.6 (80.0-98.0) fL MCH 30.8 (27.0-33.0) pg MCHC 32.6 (31.0-36.0) g/dl RDW 12.8 (11.0-16.0) % Plt Count 209 (160-400) X10*3/uL MPV 10.4 (9.4-12.4) fL Immature Gran % (Auto) 0.4 (0.0-0.4) % Neut % (Auto) 81.8 H (45-73) % Lymph % (Auto) 10.7 L (20-40) % [place] % (Auto) 6.4 (2-11) % Eos % (Auto) 0.3 (0-4) % Baso % (Auto) 0.4 (0-2) % Lymph # (Auto) 0.8 L (1.2-4.9) X10*3/uL [place] # (Auto) 0.5 (0.1-1.2) X10*3/uL Eos # (Auto) 0.0 (0.0-0.4) X10*3/uL Baso # (Auto) 0.0 (0.0-0.2) X10*3/uL Abs Immat Gran (auto) 0.03 (0.00-0.03) X10*3/uL Absolute Neuts (auto) 6.2 (2.0-8.3) x10*3/uL Absolute Nucleated RBC 0.000 (0.0-0.012) X10*3/uL Nucleated RBC % (auto) 0.0 (0.0-0.2) /100WBC Sodium 142 (135-145) mmol/L Potassium 4.5 (3.3-5.1) mmol/L Chloride 109 H (96-108) mmol/L Carbon Dioxide 23 (22-29) mmol/L Anion Gap 15 (12-20) BUN 12 (9-16) mg/dL Creatinine 0.89 (0.5-1.4) mg/dL Estim Creat Clear Calc 117.3 Estimated GFR > 60 Random Glucose 106 (60-115) mg/dL Calcium 8.9 (8.4-10.2) mg/dL Total Bilirubin 0.4 (0.0-1.0) mg/dL Direct Bilirubin 0.2 (0.0-0.5) mg/dL AST 20 (5-37) U/L ALT 33 (0-40) U/L Alkaline Phosphatase 68 (39-117) U/L Total Protein 6.2 L (6.5-8.0) g/dL Albumin 4.1 (3.5-5.0) g/dL Lipase 9 (8-78) U/L TSH 1.26 (0.32-4.0) uIU/mL Urine Color Urine Appearance Urine pH (5.0-9.0) Ur Specific [place] (1.005-1.025) Urine Protein (Neg-Trace) mg/dL Urine Glucose (UA) (Negative) mg/dL Urine Ketones (Negative) mg/dL Urine Blood (Negative) Urine Nitrite (Negative) Ur Leukocyte Esterase (Negative) Urine Opiates Screen (Not Detect) Urine Fentanyl Screen (Not Detect) Ur Barbiturates Screen (Not Detect) Ur Phencyclidine Scrn (Not Detect) Ur Amphetamines Screen (Not Detect) U Benzodiazepines Scrn (Not Detect) Urine Cocaine Screen (Not Detect) U Marijuana (THC) Screen (Not Detect) COVID-19 (CARLY) Negative (Negative) COVID-19 Clin Com See Note 12/01/21 12/01/21 Range/Units 16:52 16:52 WBC (4.8-10.8) X10*3/uL RBC (4.60-5.80) X10*6/uL Hgb (14.0-18.0) g/dl Hct (42.0-52.0) % MCV (80.0-98.0) fL MCH (27.0-33.0) pg MCHC (31.0-36.0) g/dl RDW (11.0-16.0) % Plt Count (160-400) X10*3/uL MPV (9.4-12.4) fL Immature Gran % (Auto) (0.0-0.4) % Neut % (Auto) (45-73) % Lymph % (Auto) (20-40) % [place] % (Auto) (2-11) % Eos % (Auto) (0-4) % Baso % (Auto) (0-2) % Lymph # (Auto) (1.2-4.9) X10*3/uL [place] # (Auto) (0.1-1.2) X10*3/uL Eos # (Auto) (0.0-0.4) X10*3/uL Baso # (Auto) (0.0-0.2) X10*3/uL Abs Immat Gran (auto) (0.00-0.03) X10*3/uL Absolute Neuts (auto) (2.0-8.3) x10*3/uL Absolute Nucleated RBC (0.0-0.012) X10*3/uL Nucleated RBC % (auto) (0.0-0.2) /100WBC Sodium (135-145) mmol/L Potassium (3.3-5.1) mmol/L Chloride (96-108) mmol/L Carbon Dioxide (22-29) mmol/L Anion Gap (12-20) BUN (9-16) mg/dL Creatinine (0.5-1.4) mg/dL Estim Creat Clear Calc Estimated GFR Random Glucose (60-115) mg/dL Calcium (8.4-10.2) mg/dL Total Bilirubin (0.0-1.0) mg/dL Direct Bilirubin (0.0-0.5) mg/dL AST (5-37) U/L ALT (0-40) U/L Alkaline Phosphatase (39-117) U/L Total Protein (6.5-8.0) g/dL Albumin (3.5-5.0) g/dL Lipase (8-78) U/L TSH (0.32-4.0) uIU/mL Urine Color Yellow Urine Appearance Clear Urine pH 7.0 (5.0-9.0) Ur Specific [place] 1.010 (1.005-1.025) Urine Protein Negative (Neg-Trace) mg/dL Urine Glucose (UA) Negative (Negative) mg/dL Urine Ketones Negative (Negative) mg/dL Urine Blood Negative (Negative) Urine Nitrite Negative (Negative) Ur Leukocyte Esterase Negative (Negative) Urine Opiates Screen Not Detected (Not Detect) Urine Fentanyl Screen Not Detected (Not Detect) Ur Barbiturates Screen Not Detected (Not Detect) Ur Phencyclidine Scrn Not Detected (Not Detect) Ur Amphetamines Screen Not Detected (Not Detect) U Benzodiazepines Scrn Not Detected (Not Detect) Urine Cocaine Screen Not Detected (Not Detect) U Marijuana (THC) Screen Not Detected (Not Detect) COVID-19 (CARLY) (Negative) COVID-19 Clin Com Discharge Plan Discharge Clinical Impression: Schizoaffective disorder, Acute psychosis Patient Disposition: Admitted As Inpatient
--- NOTE | 2021-12-01 14:02 | ECG_ITS ---
Test Reason : ACCUTE PSYCHOSIS Blood Pressure : / mmHG Vent. Rate : 076 BPM Atrial Rate : 076 BPM P-R Int : 178 ms QRS Dur : 096 ms QT Int : 378 ms P-R-T Axes : 036 091 016 degrees QTc Int : 425 ms Normal sinus rhythm Rightward axis Borderline ECG When compared with ECG of 15-OCT-2021 11:21, Heart rate has increased Referred By: Tres Torres Electronically Signed By:LAVELLE BARROS
[2021-12-01] MEDS: OLANZapine 10 MG VIAL IM ×2 (14:45→17:39)
[2021-12-01 14:52] LABS: Basophils Percent Auto 0.4 % (0-2); Eosinophils Percent Auto 0.3 % (0-4); Hematocrit 38.4 % (42.0-52.0); Hemoglobin 12.5 g/dl (14.0-18.0); Imm Gran Abs Auto 0.03 X10*3/uL (0.00-0.03); Imm Gran Pct Auto 0.4 % (0.0-0.4); Lymphocytes Absolute Auto 0.8 X10*3/uL (1.2-4.9); Lymphocytes Percent Auto 10.7 % (20-40); MANUAL DIFF FLAG NO; Mean Corpuscular HGB Conc 32.6 g/dl (31.0-36.0); Mean Corpuscular Hemoglobin 30.8 pg (27.0-33.0); Mean Corpuscular Volume 94.6 fL (80.0-98.0); Mean Platelet Volume 10.4 fL (9.4-12.4); Monocytes Absolute Auto 0.5 X10*3/uL (0.1-1.2); Monocytes Percent Auto 6.4 % (2-11); Neutrophils Absolute Auto 6.2 x10*3/uL (2.0-8.3); Neutrophils Percent Auto 81.8 % (45-73); Platelet Count 209 X10*3/uL (160-400); Red Blood Count 4.06 X10*6/uL (4.60-5.80); Red Cell Distribution Width 12.8 % (11.0-16.0); White Blood Count 7.5 X10*3/uL (4.8-10.8)
[2021-12-01 15:09] LABS: Alanine Aminotransferase 33 U/L (0-40); Albumin Level 4.1 g/dL (3.5-5.0); Alkaline Phosphatase 68 U/L (39-117); Anion Gap 15 (12-20); Aspartate Amino Transferase 20 U/L (5-37); Bilirubin Direct 0.2 mg/dL (0.0-0.5); Bilirubin Total 0.4 mg/dL (0.0-1.0); Blood Urea Nitrogen 12 mg/dL (9-16); Calcium 8.9 mg/dL (8.4-10.2); Carbon Dioxide 23 mmol/L (22-29); Chloride 109 mmol/L (96-108); Creatinine Clr Calc Pharmacy 117.3; Estimated Glomerular Filt Rate > 60; Glucose Random 106 mg/dL (60-115); Lipase 9 U/L (8-78); Potassium 4.5 mmol/L (3.3-5.1); Sodium 142 mmol/L (135-145); Total Protein 6.2 g/dL (6.5-8.0)
[2021-12-01 15:31] LABS: Thyroid Stimulating Hormone 1.26 uIU/mL (0.32-4.0)
[2021-12-01 15:37] LABS: COVID-19 Test Negative (Negative); IDNOW Serial# 55D5AD1C
--- NOTE | 2021-12-01 16:29 | PC.NURSE ---
Pt resting comfortably on stretcher, speaking nonsensically. no apparent distress, pt states i'm feeling pretty good for right now
[2021-12-01 17:02] LABS: Appearance Urine Clear; Color Urine Yellow; Glucose Urine UA Negative (Negative); Leukocyte Esterase Urine Negative (Negative); Nitrite Urine Negative (Negative); Urine Blood Negative (Negative); Urine Ketones Negative (Negative); Urine Protein Negative (Neg-Trace)
[2021-12-01] MEDS: Nicotine Polacrilex Lozenge 4 MG LOZENGE BUCCAL (17:06)
[2021-12-01 17:19] LABS: Amphetamine Screen Urine Not Detected (Not Detect); Barbiturates, Urine Not Detected (Not Detect); Benzodiazepines Screen Urine Not Detected (Not Detect); Cannabinoid Screen Urine Not Detected (Not Detect); Cocaine Screen Urine Not Detected (Not Detect); Fentanyl, urine Not Detected (Not Detect); Opiate Screen Urine Not Detected (Not Detect); Phencyclidine Screen Urine Not Detected (Not Detect)
[2021-12-01] MEDS: Nicotine Polacrilex 2 MG GUM BUCCAL (20:49)
[2021-12-02 00:03] VITALS: BP 143/87; PULSE 70; RESP 18; TEMP 36.7; O2SAT 99
[2021-12-02 01:01] VITALS: BP 170/101; PULSE 76; RESP 18; TEMP 36.4; O2SAT 98
[2021-12-02] MEDS: Nicotine Polacrilex 2 MG GUM BUCCAL (01:04)
[2021-12-02] MEDS: traZODone HCL 50 MG TABLET 150 MG PO ×2 (02:52→22:36)
[2021-12-02] MEDS: Nicotine Polacrilex 2 MG GUM 4 MG BUCCAL ×10 (02:52→22:11)
[2021-12-02] MEDS: Prazosin HCL 1 MG CAPSULE 2 MG PO ×2 (02:52→22:35)
[2021-12-02] MEDS: Tamsulosin HCL 0.4 MG CAPSULE PO ×2 (02:52→22:35)
[2021-12-02] MEDS: QUEtiapine Fumarate 400 MG TABLET PO ×2 (02:52→22:35)
[2021-12-02] MEDS: Famotidine 20 MG TABLET PO ×2 (02:52→14:42)
[2021-12-02] MEDS: Perphenazine 8 MG TABLET 16 MG PO ×4 (03:04→22:35)
--- NOTE | 2021-12-02 06:44 | PC.NURSE ---
Patient slept 3 + hours, no distress observed/reported, medication compliant, thought content grossly paranoid and deeply preoccupied by yarsani thought, thought process incoherent, patient was assessed by care team, disposition is section 12 inpatient Bed search, behavior unpredictable, VSS, will continue to monitor.
--- NOTE | 2021-12-02 07:20 | PC.NURSE ---
patient appears to remain at rest but at present chats with staff talking about sary cunningham, kate, ways to kill self, drugs... pressured FOI chat...patient appears primarily not distressed.
[2021-12-02] MEDS: QUEtiapine Fumarate 200 MG TABLET PO ×2 (09:11→13:25)
[2021-12-02] MEDS: carBAMazepine ER 200 MG TAB.ER.12H 400 MG PO ×2 (09:11→22:34)
[2021-12-02] MEDS: Ascorbic Acid 250 MG TABLET PO (09:19)
[2021-12-02] MEDS: Vitamin E (Dl,Tocopheryl Acet) 180 MG (400 UNIT) CAPSULE PO ×2 (09:20→22:36)
[2021-12-02] MEDS: Pravastatin Sodium 40 MG TABLET PO (10:30)
--- NOTE | 2021-12-02 12:58 | PC.NURSE ---
client seems to try and provoke staff sometimes when he doesnt like an answer but overall resilient.
[2021-12-02 13:05] VITALS: BP 139/95; PULSE 95; RESP 18; TEMP 36.7; O2SAT 95
[2021-12-02] MEDS: hydrOXYzine HCL 50 MG TABLET PO ×2 (13:25→23:58)
--- NOTE | 2021-12-02 16:48 | PC.ADMIT ---
Patient is an 51 y/o [place] speaking male admitted to the [facility] ED and admitted to the M[facility] unit at 1545 on a CV. Pt was driving erratically outside the [employer] office, doing donuts on the lawn. Pt was agitated, disorganized, delusional and not redirectable. Pt was brought to the ED by EMS on a sect 12. Pt was recently discharged from on 11/27/21. Pt was on [place] and Clozaril which he stopped taking due to side effects this past summer and is believed to have recently stopped his medication after being at [facility]. Medical history includes Asthma, COPD, GERD, hx of Pancreatitis. Allergies are Haldol and Depakote. Pt presented with pressured speech, disorganized, restlessness, perseverative on politics and the , Flight of ideas, and distractability. Most the admission was completed from [facility] as pt was unable to remain focus. Pt was angry that he was on M3 or [facility]. Pt continued to say, you have a lot of high up people at you for putting on here! Pt also said, when I was here on they turned the chip off in my head, you better not turn it on . Pt refused to sign REINIER or belongings. Pt left interview to pace on the unit.
[2021-12-02] MEDS: traZODone HCL 50 MG TABLET PO (23:58)
[2021-12-03] MEDS: Nicotine Polacrilex 2 MG GUM 4 MG BUCCAL ×10 (04:30→22:37)
[2021-12-03 06:00] VITALS: BP 155/92; PULSE 79; RESP 20; TEMP 36.5; O2SAT 98
[2021-12-03] MEDS: Vitamin E (Dl,Tocopheryl Acet) 180 MG (400 UNIT) CAPSULE PO ×2 (08:12→22:02)
[2021-12-03] MEDS: Perphenazine 8 MG TABLET 16 MG PO ×3 (08:12→22:01)
[2021-12-03] MEDS: QUEtiapine Fumarate 200 MG TABLET PO ×2 (08:12→13:33)
[2021-12-03] MEDS: Famotidine 20 MG TABLET PO ×2 (08:13→22:02)
[2021-12-03] MEDS: Ascorbic Acid 250 MG TABLET PO (08:13)
[2021-12-03] MEDS: carBAMazepine ER 200 MG TAB.ER.12H 400 MG PO (08:13)
[2021-12-03 09:24] LABS: Alanine Aminotransferase 36 U/L (0-40); Albumin Level 4.5 g/dL (3.5-5.0); Alkaline Phosphatase 81 U/L (39-117); Anion Gap 14 (12-20); Aspartate Amino Transferase 24 U/L (5-37); Bilirubin Total 0.8 mg/dL (0.0-1.0); Blood Urea Nitrogen 13 mg/dL (9-16); Calcium 9.6 mg/dL (8.4-10.2); Carbon Dioxide 25 mmol/L (22-29); Chloride 103 mmol/L (96-108); Cholesterol 244 mg/dL; Creatinine Clr Calc Pharmacy 130.5; Estimated Glomerular Filt Rate > 60; Glucose Fasting 113 mg/dL (60-99); HDL Cholesterol 38 mg/dL; LDL Cholesterol Calculated 169 mg/dl; Potassium 4.4 mmol/L (3.3-5.1); Sodium 138 mmol/L (135-145); Total Protein 6.9 g/dL (6.5-8.0); Triglycerides 186 mg/dL
[2021-12-03 09:44] LABS: Thyroid Stimulating Hormone 1.89 uIU/mL (0.32-4.0)
[2021-12-03] MEDS: Fluticasone/Vilanterol 100/25 BLST.W.DEV 1 PUFF INHALE (10:14)
[2021-12-03] MEDS: Artificial Tears 15 ML DROPS 2 DROP EYE-BOTH (10:14)
[2021-12-03 10:36] LABS: Folate 11.6 ng/mL (> or = 4.0); Vitamin B12 355 pg/mL (200-900)
[2021-12-03] MEDS: Ibuprofen 600 MG TABLET PO (13:33)
[2021-12-03] MEDS: hydrOXYzine HCL 50 MG TABLET PO (13:36)
--- NOTE | 2021-12-03 13:56 | HO.PSYADMNOT ---
HPI Date of Service: 12/03/21 Chief Complaint: psychosis HPI Narrative: pt was BIBA to ED after having been found doing donuts in his vehicle outside [facility] [place] offices. he was described in the crisis note as agitated, disorganized, delusional, and not redirectable. he reported he has a chip in his head, that he is a direct relative of the Ngo family and heir to the throne. per crisis eval, during the interview pt made several vague, aggressive, statements directed at political figures. on interview with MD, pt presented as disorganized, delusional (chip in head), pressured. he was aware he was in a psychiatric facility, but he was not sure whether or not he has a mental illness. he was very clear that he is not hear for treatment or help, but rather that he is here to help others. he specifically mentioned trying to convince peers to take their medications. he reports his mood is fine and denies SI/HI/AVH. c/o side effects of clozaril (choking, constipation, thinking he was having sex with little kids with my toes ) and lithium (diarrhea). Past Psychiatric History: schizoaffective disorder, bipolar type Dx. Hx X area hospitalizations. Last was at [facility] 10/15/21 - 11/17/21, before that Prov in 2018. M5 in 2008. Cloz (1991), Li (2009), Perphenazine (2013). Sees Pietro Leos APRN. h/o physical aggression, agitated behaviors. no known h/o SA. has reported SIB of self-mutilation of his fingers, covered by bandaids, but it is unclear if this is delusional. Medical Evaluation Reviewed: Yes [facility] Medical History Anxiety COPD (chronic obstructive pulmonary disease) Difficulty sleeping Elevated cholesterol GERD (gastroesophageal reflux disease) Hx of pancreatitis Hyperlipidemia Obesity Schizoaffective disorder Smoker Surgical History History of bilateral cataract extraction History of bunionectomy History of excision of mass Hx of colonoscopy Family History: None known Social History: single, no kids, never , on SSDI. Completed [facility] locally. Has 2 older and 2 younger sister. F is advocate for him. M involved too. Lives in own apt but had much support from his father who is now (as of 09/2021). Substance History: reportedly occasionally uses alcohol Trauma History: None Diagnostics Vital Signs (24Hr): Vital Signs - 24 hr 12/03/21 06:00 Temperature 97.7 F Pulse Rate 79 Respiratory Rate 20 Blood Pressure 155/92 H Pulse Oximetry 98 Oxygen Delivery Method Room Air BMI result Body Mass Index 26.2 Labs Results: 12/01/21 14:30 12/03/21 08:33 Labs: Laboratory Results - last 48 hr 12/01/21 12/01/21 12/01/21 14:30 14:30 14:50 WBC 7.5 RBC 4.06 L Hgb 12.5 L Hct 38.4 L MCV 94.6 MCH 30.8 MCHC 32.6 RDW 12.8 Plt Count 209 MPV 10.4 Immature Gran % (Auto) 0.4 Neut % (Auto) 81.8 H Lymph % (Auto) 10.7 L [place] % (Auto) 6.4 Eos % (Auto) 0.3 Baso % (Auto) 0.4 Lymph # (Auto) 0.8 L [place] # (Auto) 0.5 Eos # (Auto) 0.0 Baso # (Auto) 0.0 Abs Immat Gran (auto) 0.03 Absolute Neuts (auto) 6.2 Absolute Nucleated RBC 0.000 Nucleated RBC % (auto) 0.0 Sodium 142 Potassium 4.5 Chloride 109 H Carbon Dioxide 23 Anion Gap 15 BUN 12 Creatinine 0.89 Estim Creat Clear Calc 117.3 Estimated GFR > 60 Random Glucose 106 Fasting Glucose Calcium 8.9 Total Bilirubin 0.4 Direct Bilirubin 0.2 AST 20 ALT 33 Alkaline Phosphatase 68 Total Protein 6.2 L Albumin 4.1 Triglycerides Cholesterol LDL Cholesterol, Calc HDL Cholesterol Lipase 9 Vitamin B12 Folate TSH 1.26 Urine Color Urine Appearance Urine pH Ur Specific [place] Urine Protein Urine Glucose (UA) Urine Ketones Urine Blood Urine Nitrite Ur Leukocyte Esterase Urine Opiates Screen Urine Fentanyl Screen Ur Barbiturates Screen Ur Phencyclidine Scrn Ur Amphetamines Screen U Benzodiazepines Scrn Urine Cocaine Screen U Marijuana (THC) Screen COVID-19 (CARLY) Negative COVID-19 Clin Com See Note 12/01/21 12/01/21 12/03/21 16:52 16:52 08:33 WBC RBC Hgb Hct MCV MCH MCHC RDW Plt Count MPV Immature Gran % (Auto) Neut % (Auto) Lymph % (Auto) [place] % (Auto) Eos % (Auto) Baso % (Auto) Lymph # (Auto) [place] # (Auto) Eos # (Auto) Baso # (Auto) Abs Immat Gran (auto) Absolute Neuts (auto) Absolute Nucleated RBC Nucleated RBC % (auto) Sodium 138 Potassium 4.4 Chloride 103 Carbon Dioxide 25 Anion Gap 14 BUN 13 Creatinine 0.80 Estim Creat Clear Calc 130.5 Estimated GFR > 60 Random Glucose Fasting Glucose 113 H Calcium 9.6 D Total Bilirubin 0.8 Direct Bilirubin AST 24 ALT 36 Alkaline Phosphatase 81 Total Protein 6.9 Albumin 4.5 Triglycerides 186 Cholesterol 244 D LDL Cholesterol, Calc 169 HDL Cholesterol 38 Lipase Vitamin B12 Folate TSH 1.89 Urine Color Yellow Urine Appearance Clear Urine pH 7.0 Ur Specific [place] 1.010 Urine Protein Negative Urine Glucose (UA) Negative Urine Ketones Negative Urine Blood Negative Urine Nitrite Negative Ur Leukocyte Esterase Negative Urine Opiates Screen Not Detected Urine Fentanyl Screen Not Detected Ur Barbiturates Screen Not Detected Ur Phencyclidine Scrn Not Detected Ur Amphetamines Screen Not Detected U Benzodiazepines Scrn Not Detected Urine Cocaine Screen Not Detected U Marijuana (THC) Screen Not Detected COVID-19 (CARLY) COVID-19 [employer] 12/03/21 08:33 WBC RBC Hgb Hct MCV MCH MCHC RDW Plt Count MPV Immature Gran % (Auto) Neut % (Auto) Lymph % (Auto) [place] % (Auto) Eos % (Auto) Baso % (Auto) Lymph # (Auto) [place] # (Auto) Eos # (Auto) Baso # (Auto) Abs Immat Gran (auto) Absolute Neuts (auto) Absolute Nucleated RBC Nucleated RBC % (auto) Sodium Potassium Chloride Carbon Dioxide Anion Gap BUN Creatinine Estim Creat Clear Calc Estimated GFR Random Glucose Fasting Glucose Calcium Total Bilirubin Direct Bilirubin AST ALT Alkaline Phosphatase Total Protein Albumin Triglycerides Cholesterol LDL Cholesterol, Calc HDL Cholesterol Lipase Vitamin B12 355 Folate 11.6 TSH Urine Color Urine Appearance Urine pH Ur Specific [place] Urine Protein Urine Glucose (UA) Urine Ketones Urine Blood Urine Nitrite Ur Leukocyte Esterase Urine Opiates Screen Urine Fentanyl Screen Ur Barbiturates Screen Ur Phencyclidine Scrn Ur Amphetamines Screen U Benzodiazepines Scrn Urine Cocaine Screen U Marijuana (THC) Screen COVID-19 (CARLY) COVID-19 Clin Com Meds/Allergies Allergies Allergies Allergy/AdvReac Type Severity Reaction Status Date / Time divalproex sodium Allergy Severe PANCREATITI Verified 11/24/21 14:34 [From DEPAKOTE] S haloperidol [From Haldol] Allergy Intermediate DYSTONIC Verified 11/24/21 14:34 REACTION Mental Status Exam Mental Status Exam Narrative: Pt is alert and oriented; behavior is cooperative, disorganized, intermittently agitated; dressed in hospital [place], adequate hygiene; mood is described as fine and affect variable; eye contact appropriate; Speech incr rate, volume. nml prosody, decr latency; psychomotor agitation; thought process disorganized; delusional thinking present; no SI/HI. Denies SI/HI/AVH. Patients insight and judgment are impaired. Assessment & Plan Assessment & Plan (1) Schizoaffective disorder: Status: Acute Code(s): F25.9 - Schizoaffective disorder, unspecified Plan continue home meds for now. CV rejected as pt unable to appreciate the circumstances of his admission. will need commitment and benedicto's order. T/C restarting clozaril and lithium, on which pt did well for many years, reportedly. Patient educated on: diagnosis and medication risk/benefits Reason for continued inpatient stay Substantial Risk for: harm to self, harm to others and inability to function
[2021-12-03] MEDS: Simethicone 80 MG TAB.CHEW PO (16:49)
[2021-12-03] MEDS: Tamsulosin HCL 0.4 MG CAPSULE PO (22:00)
[2021-12-03] MEDS: Prazosin HCL 1 MG CAPSULE 2 MG PO (22:01)
[2021-12-03] MEDS: carBAMazepine ER 200 MG TAB.ER.12H 600 MG PO (22:01)
[2021-12-03] MEDS: traZODone HCL 50 MG TABLET 150 MG PO (22:01)
[2021-12-03] MEDS: QUEtiapine Fumarate 400 MG TABLET PO (22:02)
[2021-12-03 22:12] VITALS: BP 141/98; PULSE 85; TEMP 36.3; O2SAT 97
[2021-12-04] MEDS: traZODone HCL 50 MG TABLET PO ×2 (00:06→22:33)
[2021-12-04] MEDS: hydrOXYzine HCL 50 MG TABLET PO ×3 (00:06→22:35)
[2021-12-04] MEDS: Nicotine Polacrilex 2 MG GUM 4 MG BUCCAL ×12 (00:43→23:23)
[2021-12-04] MEDS: Acetaminophen 325 MG TABLET 650 MG PO ×3 (03:27→22:33)
[2021-12-04] MEDS: Magnesium Hydrox/Alum Hydrox 30 ML ORAL.SUSP PO (03:50)
[2021-12-04] MEDS: Artificial Tears 15 ML DROPS 2 DROP EYE-BOTH (06:15)
[2021-12-04] MEDS: Albuterol Sulfate 90 MCG 8 GM INHALER 2 PUFF INHALE (06:49)
[2021-12-04] MEDS: Simethicone 80 MG TAB.CHEW PO ×2 (07:59→20:14)
[2021-12-04] MEDS: Perphenazine 8 MG TABLET 16 MG PO ×3 (08:20→22:32)
[2021-12-04] MEDS: carBAMazepine ER 200 MG TAB.ER.12H 600 MG PO ×2 (08:20→22:33)
[2021-12-04] MEDS: Ascorbic Acid 250 MG TABLET PO (08:20)
[2021-12-04] MEDS: QUEtiapine Fumarate 200 MG TABLET PO ×2 (08:20→13:24)
[2021-12-04] MEDS: Famotidine 20 MG TABLET PO ×2 (08:20→22:31)
[2021-12-04] MEDS: Vitamin E (Dl,Tocopheryl Acet) 180 MG (400 UNIT) CAPSULE PO ×2 (08:20→22:32)
[2021-12-04 09:00] VITALS: BP 140/87; PULSE 80; RESP 18; TEMP 36.6; O2SAT 99
[2021-12-04] MEDS: Fluticasone/Vilanterol 100/25 BLST.W.DEV 1 PUFF INHALE (12:18)
[2021-12-04] MEDS: clonazePAM 0.5 MG TABLET PO (14:02)
--- NOTE | 2021-12-04 14:49 | HO.PSYCHPN ---
Subjective Subjective Date of Service: 12/04/21 Reason For Visit: psychosis Interim History: pt seen sleeping in bed, not rousable to loud voice. per staff, wandering, bizarre. eating well. c/o restless sleep. no anx/dep. pressured. scratched head until it bled. sexualized talk. did not sleep overnight. asking for klonopin, dosing of 1 mg TID started 11/25 by outpt provider verified. also c/o painful ulcers in his mouth, asking for oral anti-fungal. no other complaints or requests. per collateral from sister, she believes pt needs to be on lithium. Mental Status Exam Mental Status Exam Narrative: sleeping in bed, reposeful. Diagnostics Vital Signs (24Hr): Vital Signs - 24 hr 12/03/21 22:12 Temperature 97.4 F Pulse Rate 85 Blood Pressure 141/98 H Pulse Oximetry 97 Oxygen Delivery Method Room Air BMI result Body Mass Index 26.2 Labs Results: 12/01/21 14:30 12/03/21 08:33 Labs: Laboratory Results - last 48 hr 12/03/21 12/03/21 08:33 08:33 Sodium 138 Potassium 4.4 Chloride 103 Carbon Dioxide 25 Anion Gap 14 BUN 13 Creatinine 0.80 Estim Creat Clear Calc 130.5 Estimated GFR > 60 Fasting Glucose 113 H Calcium 9.6 D Total Bilirubin 0.8 AST 24 ALT 36 Alkaline Phosphatase 81 Total Protein 6.9 Albumin 4.5 Triglycerides 186 Cholesterol 244 D LDL Cholesterol, Calc 169 HDL Cholesterol 38 Vitamin B12 355 Folate 11.6 TSH 1.89 Medications Medications Current Medications Acetaminophen (Acetaminophen 325 Mg Tablet) 650 mg PO Q6H PRN PRN Reason: Headache/Pain Mild Scale (1-3) Last Admin: 12/04/21 13:42 Dose: 650 mg Al Hydroxide/Mg Hydroxide (Magnesium Hydrox/Alum Hydrox 30 Ml Oral.Susp) 30 ml PO Q6H PRN PRN Reason: Heartburn/Nausea Last Admin: 12/04/21 03:50 Dose: 30 ml Albuterol Sulfate (Albuterol Sulfate 90 Mcg 8 Gm Inhaler) 2 puff INHALE Q4H PRN PRN Reason: shortness of breath or wheezing Last Admin: 12/04/21 06:49 Dose: 2 puff Artificial Tears (Artificial Tears 15 Ml Drops) 2 drop EYE-BOTH Q4H PRN PRN Reason: Dry Eyes Last Admin: 12/04/21 06:15 Dose: 2 drop Ascorbic Acid (Ascorbic Acid 250 Mg Tablet) 250 mg PO DAILY [facility] Last Admin: 12/04/21 08:20 Dose: 250 mg Carbamazepine (Carbamazepine Er 200 Mg Tab.Er.12h) 600 mg PO BID [facility] Last Admin: 12/04/21 08:20 Dose: 600 mg Clonazepam (Clonazepam 0.5 Mg Tablet) 0.5 mg PO BID@0900,1500 [facility] Last Admin: 12/04/21 14:02 Dose: 0.5 mg Clonazepam (Clonazepam 1 Mg Tablet) 1 mg PO BEDTIME [facility] Famotidine (Famotidine 20 Mg Tablet) 20 mg PO BID [facility] Last Admin: 12/04/21 08:20 Dose: 20 mg Fluticasone/Vilanterol (Fluticasone/Vilanterol 100/25 Blst.W.Dev) 1 puff INHALE DAILY [facility] Last Admin: 12/04/21 12:18 Dose: 1 puff Hydroxyzine HCl (Hydroxyzine Hcl 50 Mg Tablet) 50 mg PO TID PRN PRN Reason: anxiety Last Admin: 12/03/21 13:36 Dose: 50 mg Hydroxyzine HCl (Hydroxyzine Hcl 50 Mg Tablet) 50 mg PO Q6H PRN PRN Reason: Anxiety Last Admin: 12/04/21 00:06 Dose: 50 mg Lidocaine/Diphenhydr/Alum/Mg/Simeth (Mag&Al/Sim/Diphenhyd/Lidocaine 10 Ml Oral.Susp) 10 ml PO Q4H PRN; Protocol PRN Reason: oral mucous membrane ulcer jeremiah Magnesium Hydroxide (Milk Of Magnesia 30 Ml Oral.Susp) 30 ml PO DAILY PRN PRN Reason: Constipation Magnesium Hydroxide (Milk Of Magnesia 30 Ml Oral.Susp) 30 ml PO DAILY PRN PRN Reason: Constipation Nicotine Polacrilex (Nicotine Polacrilex 2 Mg Gum) 4 mg BUCCAL Q1H PRN PRN Reason: Nicotine Cravings Last Admin: 12/04/21 13:29 Dose: 4 mg Perphenazine (Perphenazine 8 Mg Tablet) 16 mg PO TID [facility] Last Admin: 12/04/21 14:02 Dose: 16 mg Pravastatin Sodium (Pravastatin Sodium 40 Mg Tablet) 40 mg PO DAILY [facility] Last Admin: 12/04/21 08:23 Dose: Not Given Prazosin HCl (Prazosin Hcl 1 Mg Capsule) 2 mg PO BEDTIME [facility]; Protocol Last Admin: 12/03/21 22:01 Dose: 2 mg Psyllium Hydrophilic Mucilloid (Psyllium Seed 3.4 Gm Powd.Pack) 3.4 gm PO BID [facility] Last Admin: 12/04/21 09:34 Dose: Not Given Quetiapine Fumarate (Quetiapine Fumarate 200 Mg Tablet) 200 mg PO BID@0900,1400 [facility] Last Admin: 12/04/21 13:24 Dose: 200 mg Quetiapine Fumarate (Quetiapine Fumarate 400 Mg Tablet) 400 mg PO BEDTIME [facility] Last Admin: 12/03/21 22:02 Dose: 400 mg Simethicone (Simethicone 80 Mg Tab.Chew) 80 mg PO QIDWMHS PRN PRN Reason: flatulence Last Admin: 12/04/21 07:59 Dose: 80 mg Tamsulosin HCl (Tamsulosin Hcl 0.4 Mg Capsule) 0.4 mg PO BEDTIME [facility] Last Admin: 12/03/21 22:00 Dose: 0.4 mg Trazodone HCl (Trazodone Hcl 50 Mg Tablet) 150 mg PO BEDTIME [facility] Last Admin: 12/03/21 22:01 Dose: 150 mg Trazodone HCl (Trazodone Hcl 50 Mg Tablet) 50 mg PO BEDTIME PRN PRN Reason: Insomnia Last Admin: 12/04/21 00:06 Dose: 50 mg Vitamin E (Vitamin E (Dl,Tocopheryl Acet) 180 Mg (400 Unit) Capsule) 180 mg PO BID [facility] Last Admin: 12/04/21 08:20 Dose: 180 mg Allergies Allergies Allergy/AdvReac Type Severity Reaction Status Date / Time divalproex sodium Allergy Severe PANCREATITI Verified 11/24/21 14:34 [From DEPAKOTE] S haloperidol [From Haldol] Allergy Intermediate DYSTONIC Verified 11/24/21 14:34 REACTION Assessment & Plan Assessment & Plan (1) Schizoaffective disorder: Status: Acute Code(s): F25.9 - Schizoaffective disorder, unspecified Plan continue home meds for now. CV rejected as pt unable to appreciate the circumstances of his admission. will need commitment and benedicto's order. T/C restarting clozaril and lithium, on which pt did well for many years, reportedly. tegretol increased from 400 BID to 600 BID at admission. klonopin 0.5/0.5/1 reinstated 12/04 (outpt provider had started it 11/25 at 1 mg TID). magic mouthwash started for oral ulcers. I spent __25____ minutes with the patient and/or on the patient floor today, greater than?50% of which was spent counseling/coordinating care. Reason for contiued inpatient stay Substantial Risk for: harm to self, harm to others, inability to function and rapid decompensation
[2021-12-04] MEDS: Mag&Al/Sim/Diphenhyd/Lidocaine 10 ML ORAL.SUSP PO ×2 (15:28→21:08)
[2021-12-04] MEDS: Milk of Magnesia 30 ML ORAL.SUSP PO (18:30)
[2021-12-04 20:50] VITALS: BP 130/84; PULSE 75; RESP 16; TEMP 36.4; O2SAT 97
[2021-12-04] MEDS: Prazosin HCL 1 MG CAPSULE 2 MG PO (21:03)
[2021-12-04] MEDS: QUEtiapine Fumarate 400 MG TABLET PO (22:31)
[2021-12-04] MEDS: traZODone HCL 50 MG TABLET 150 MG PO (22:32)
[2021-12-04] MEDS: clonazePAM 1 MG TABLET PO (22:32)
[2021-12-04] MEDS: Tamsulosin HCL 0.4 MG CAPSULE PO (22:33)
[2021-12-05] MEDS: Nicotine Polacrilex 2 MG GUM 4 MG BUCCAL ×8 (00:34→23:42)
[2021-12-05] MEDS: Artificial Tears 15 ML DROPS 2 DROP EYE-BOTH ×2 (00:34→20:24)
[2021-12-05] MEDS: Albuterol Sulfate 90 MCG 8 GM INHALER 2 PUFF INHALE ×2 (00:34→20:23)
[2021-12-05 08:15] VITALS: BP 131/82; PULSE 89; RESP 17; TEMP 36.3; O2SAT 99
[2021-12-05] MEDS: Vitamin E (Dl,Tocopheryl Acet) 180 MG (400 UNIT) CAPSULE PO ×2 (08:27→22:39)
[2021-12-05] MEDS: Perphenazine 8 MG TABLET 16 MG PO ×3 (08:27→22:39)
[2021-12-05] MEDS: Pravastatin Sodium 40 MG TABLET PO (08:28)
[2021-12-05] MEDS: Ascorbic Acid 250 MG TABLET PO (08:28)
[2021-12-05] MEDS: Famotidine 20 MG TABLET PO ×2 (08:28→22:39)
[2021-12-05] MEDS: clonazePAM 0.5 MG TABLET PO ×2 (08:28→14:39)
[2021-12-05] MEDS: QUEtiapine Fumarate 200 MG TABLET PO ×2 (08:29→14:39)
[2021-12-05] MEDS: Fluticasone/Vilanterol 100/25 BLST.W.DEV 1 PUFF INHALE (08:31)
[2021-12-05] MEDS: carBAMazepine ER 200 MG TAB.ER.12H 600 MG PO ×2 (08:39→22:38)
[2021-12-05] MEDS: Acetaminophen 325 MG TABLET 650 MG PO ×3 (08:39→20:19)
[2021-12-05] MEDS: hydrOXYzine HCL 50 MG TABLET PO ×2 (08:39→14:39)
--- NOTE | 2021-12-05 14:19 | P.PNPSI_ITS ---
Subjective Subjective Date of Service: 12/05/21 Reason For Visit: psychosis Interim History: pt in bed asleep, as he was yesterday, does not rouse himself to loud voice. per staff, slept well last night. showered. bacitracin to head. pressured speech. Mental Status Exam Mental Status Exam Narrative: sleeping in bed, reposeful. Diagnostics Vital Signs (24Hr): Vital Signs - 24 hr 12/04/21 20:50 12/05/21 08:15 Temperature 97.6 F 97.3 F Pulse Rate 75 89 Respiratory Rate 16 17 Blood Pressure 130/84 131/82 Pulse Oximetry 97 99 Oxygen Delivery Method Room Air Room Air BMI result Body Mass Index 26.2 Labs Results: 12/01/21 14:30 12/03/21 08:33 Medications Medications Current Medications Acetaminophen (Acetaminophen 325 Mg Tablet) 650 mg PO Q6H PRN PRN Reason: Headache/Pain Mild Scale (1-3) Last Admin: 12/05/21 08:39 Dose: 650 mg Al Hydroxide/Mg Hydroxide (Magnesium Hydrox/Alum Hydrox 30 Ml Oral.Susp) 30 ml PO Q6H PRN PRN Reason: Heartburn/Nausea Last Admin: 12/04/21 03:50 Dose: 30 ml Albuterol Sulfate (Albuterol Sulfate 90 Mcg 8 Gm Inhaler) 2 puff INHALE Q4H PRN PRN Reason: shortness of breath or wheezing Last Admin: 12/05/21 00:34 Dose: 2 puff Artificial Tears (Artificial Tears 15 Ml Drops) 2 drop EYE-BOTH Q4H PRN PRN Reason: Dry Eyes Last Admin: 12/05/21 00:34 Dose: 2 drop Ascorbic Acid (Ascorbic Acid 250 Mg Tablet) 250 mg PO DAILY [facility] [place] Last Admin: 12/05/21 08:28 Dose: 250 mg Carbamazepine (Carbamazepine Er 200 Mg Tab.Er.12h) 600 mg PO BID [facility] [place] Last Admin: 12/05/21 08:39 Dose: 600 mg Clonazepam (Clonazepam 0.5 Mg Tablet) 0.5 mg PO BID@0900,1500 [facility] [place] Last Admin: 12/05/21 08:28 Dose: 0.5 mg Clonazepam (Clonazepam 1 Mg Tablet) 1 mg PO BEDTIME [facility] Last Admin: 12/04/21 22:32 Dose: 1 mg Famotidine (Famotidine 20 Mg Tablet) 20 mg PO BID [facility] [place] Last Admin: 12/05/21 08:28 Dose: 20 mg Fluticasone/Vilanterol (Fluticasone/Vilanterol 100/25 Blst.W.Dev) 1 puff INHALE DAILY [facility] [place] Last Admin: 12/05/21 08:31 Dose: 1 puff Hydroxyzine HCl (Hydroxyzine Hcl 50 Mg Tablet) 50 mg PO TID PRN PRN Reason: anxiety Last Admin: 12/05/21 08:39 Dose: 50 mg Hydroxyzine HCl (Hydroxyzine Hcl 50 Mg Tablet) 50 mg PO Q6H PRN PRN Reason: Anxiety Last Admin: 12/04/21 21:03 Dose: 50 mg Lidocaine/Diphenhydr/Alum/Mg/Simeth (Mag&Al/Sim/Diphenhyd/Lidocaine 10 Ml Oral.Susp) 10 ml PO Q4H PRN; Protocol PRN Reason: oral mucous membrane ulcer jeremiah Last Admin: 12/04/21 21:08 Dose: 10 ml Magnesium Hydroxide (Milk Of Magnesia 30 Ml Oral.Susp) 30 ml PO DAILY PRN PRN Reason: Constipation Last Admin: 12/04/21 18:30 Dose: 30 ml Magnesium Hydroxide (Milk Of Magnesia 30 Ml Oral.Susp) 30 ml PO DAILY PRN PRN Reason: Constipation Nicotine Polacrilex (Nicotine Polacrilex 2 Mg Gum) 4 mg BUCCAL Q1H PRN PRN Reason: Nicotine Cravings Last Admin: 12/05/21 08:39 Dose: 4 mg Perphenazine (Perphenazine 8 Mg Tablet) 16 mg PO TID [facility] Last Admin: 12/05/21 08:27 Dose: 16 mg Pravastatin Sodium (Pravastatin Sodium 40 Mg Tablet) 40 mg PO DAILY [facility] Last Admin: 12/05/21 08:28 Dose: 40 mg Prazosin HCl (Prazosin Hcl 1 Mg Capsule) 2 mg PO BEDTIME [facility]; Protocol Last Admin: 12/04/21 21:03 Dose: 2 mg Psyllium Hydrophilic Mucilloid (Psyllium Seed 3.4 Gm Powd.Pack) 3.4 gm PO BID [facility] Last Admin: 12/05/21 08:31 Dose: Not Given Quetiapine Fumarate (Quetiapine Fumarate 200 Mg Tablet) 200 mg PO BID@0900,1400 [facility] Last Admin: 09/30/22 08:29 Dose: 200 mg Quetiapine Fumarate (Quetiapine Fumarate 400 Mg Tablet) 400 mg PO BEDTIME [facility] Last Admin: 12/04/21 22:31 Dose: 400 mg Simethicone (Simethicone 80 Mg Tab.Chew) 80 mg PO QIDWMHS PRN PRN Reason: flatulence Last Admin: 12/04/21 20:14 Dose: 80 mg Tamsulosin HCl (Tamsulosin Hcl 0.4 Mg Capsule) 0.4 mg PO BEDTIME [facility] Last Admin: 12/04/21 22:33 Dose: 0.4 mg Trazodone HCl (Trazodone Hcl 50 Mg Tablet) 150 mg PO BEDTIME [facility] Last Admin: 12/04/21 22:32 Dose: 150 mg Trazodone HCl (Trazodone Hcl 50 Mg Tablet) 50 mg PO BEDTIME PRN PRN Reason: Insomnia Last Admin: 12/04/21 22:33 Dose: 50 mg Vitamin E (Vitamin E (Dl,Tocopheryl Acet) 180 Mg (400 Unit) Capsule) 180 mg PO BID [facility] Last Admin: 12/05/21 08:27 Dose: 180 mg Allergies Allergies Allergy/AdvReac Type Severity Reaction Status Date / Time divalproex sodium Allergy Severe PANCREATITI Verified 11/24/21 14:34 [From DEPAKOTE] S haloperidol [From Haldol] Allergy Intermediate DYSTONIC Verified 11/24/21 14:34 REACTION Assessment & Plan Assessment & Plan (1) Schizoaffective disorder: Status: Acute Code(s): F25.9 - Schizoaffective disorder, unspecified Plan 12/03: continue home meds for now. CV rejected as pt unable to appreciate the circumstances of his admission. will need commitment and benedicto's order. T/C restarting clozaril and lithium, on which pt did well for many years, reportedly. tegretol increased from 400 BID to 600 BID at admission. 12/04: klonopin 0.5/0.5/1 reinstated 12/04 (outpt provider had started it 11/25 at 1 mg TID). magic mouthwash started for oral ulcers. 12/05: slept well last night, still pressured and disorganized. continue current mgmt. I spent __15____ minutes with the patient and/or on the patient floor today, greater than?50% of which was spent counseling/coordinating care. Reason for contiued inpatient stay Substantial Risk for: inability to function and rapid decompensation
[2021-12-05] MEDS: Simethicone 80 MG TAB.CHEW PO ×2 (15:27→20:20)
[2021-12-05] MEDS: Mag&Al/Sim/Diphenhyd/Lidocaine 10 ML ORAL.SUSP PO (15:56)
[2021-12-05 22:35] VITALS: BP 162/80; PULSE 84; RESP 18; TEMP 36.7; O2SAT 98
[2021-12-05] MEDS: Prazosin HCL 1 MG CAPSULE 2 MG PO (22:39)
[2021-12-05] MEDS: QUEtiapine Fumarate 400 MG TABLET PO (22:39)
[2021-12-05] MEDS: Tamsulosin HCL 0.4 MG CAPSULE PO (22:39)
[2021-12-05] MEDS: clonazePAM 1 MG TABLET PO (22:39)
[2021-12-05] MEDS: traZODone HCL 50 MG TABLET 150 MG PO (22:39)
[2021-12-06] MEDS: Mag&Al/Sim/Diphenhyd/Lidocaine 10 ML ORAL.SUSP PO ×3 (00:41→16:27)
[2021-12-06] MEDS: Nicotine Polacrilex 2 MG GUM 4 MG BUCCAL ×12 (01:17→23:27)
[2021-12-06] MEDS: Magnesium Hydrox/Alum Hydrox 30 ML ORAL.SUSP PO (01:17)
[2021-12-06] MEDS: Acetaminophen 325 MG TABLET 650 MG PO ×2 (07:21→14:06)
[2021-12-06] MEDS: Simethicone 80 MG TAB.CHEW PO (07:21)
[2021-12-06] MEDS: hydrOXYzine HCL 50 MG TABLET PO ×2 (07:22→16:27)
[2021-12-06 08:40] VITALS: BP 136/79; PULSE 87; RESP 18; TEMP 36.5; O2SAT 99
[2021-12-06] MEDS: Vitamin E (Dl,Tocopheryl Acet) 180 MG (400 UNIT) CAPSULE PO ×2 (09:09→23:50)
[2021-12-06] MEDS: carBAMazepine ER 200 MG TAB.ER.12H 600 MG PO ×2 (09:10→23:50)
[2021-12-06] MEDS: Famotidine 20 MG TABLET PO ×2 (09:15→23:50)
[2021-12-06] MEDS: Ascorbic Acid 250 MG TABLET PO (09:17)
[2021-12-06] MEDS: Perphenazine 8 MG TABLET 16 MG PO ×3 (09:17→23:50)
[2021-12-06] MEDS: clonazePAM 0.5 MG TABLET PO ×2 (09:17→14:08)
[2021-12-06] MEDS: QUEtiapine Fumarate 200 MG TABLET PO ×2 (09:18→14:08)
[2021-12-06] MEDS: Fluticasone/Vilanterol 100/25 BLST.W.DEV 1 PUFF INHALE (09:20)
[2021-12-06] MEDS: Albuterol Sulfate 90 MCG 8 GM INHALER 2 PUFF INHALE ×3 (11:31→23:58)
[2021-12-06] MEDS: Artificial Tears 15 ML DROPS 2 DROP EYE-BOTH ×3 (11:33→23:57)
[2021-12-06 13:57] VITALS: BP 147/71; PULSE 74; RESP 18; TEMP 36.6; O2SAT 100
[2021-12-06] MEDS: Milk of Magnesia 30 ML ORAL.SUSP PO (14:56)
--- NOTE | 2021-12-06 15:52 | HO.PSYCHPN ---
Subjective Subjective Date of Service: 12/06/21 Reason For Visit: psychosis Subjective Notes: Section 12B Healthcare Proxy: No Guardianship: No Medical Problems Affecting Mental Status: No Interim History: Pt shows provider his writing, wants to know if they can understand it , as only particular people can- identifies it as poetry - encouraged pt to write down his thoughts- but this provider might not get it- it was still good to have a place for them. Pt reported to nursing no bm in 5 days- would like ducolax suppository that works for him Unable to ask him the standard questions about sleep, risk to self- he just talks right through anything provider said Medication Compliance: Yes Side effects from medications: Yes (constipation) Attending Groups: Intermittent Review of Systems Acute medical concerns: No Mental Status Exam Mental Status Exam Narrative: mostly kempt, mildly unshaven , intense eye contact Patient Orientation: Person, Place, Time and Situation Level of Consciousness: Awake and Appropriate Patient Behavior: Talkative and Hypersexual Mood Description: Expansive Affect Description: Calm Ability to Follow Directions: Fair (hard to redirect) Speech Pattern: Rambling, Animated and Pressured Thought Process: Illogical Thought Content: positive for Disoriented, positive for Racing, positive for Loose Associations and positive for Disorganized Judgement: Fair Diagnostics Vital Signs (24Hr): Vital Signs - 24 hr 12/05/21 22:35 12/06/21 08:40 12/06/21 13:57 Temperature 98.0 F 97.7 F 97.8 F Pulse Rate 84 87 74 Respiratory Rate 18 18 18 Blood Pressure 162/80 H 136/79 147/71 H Pulse Oximetry 98 99 100 Oxygen Delivery Method Room Air Room Air Room Air BMI result Body Mass Index 26.2 Labs Results: 12/01/21 14:30 12/03/21 08:33 Medications Medications Current Medications Acetaminophen (Acetaminophen 325 Mg Tablet) 650 mg PO Q6H PRN PRN Reason: Headache/Pain Mild Scale (1-3) Last Admin: 12/06/21 14:06 Dose: 650 mg Al Hydroxide/Mg Hydroxide (Magnesium Hydrox/Alum Hydrox 30 Ml Oral.Susp) 30 ml PO Q6H PRN PRN Reason: Heartburn/Nausea Last Admin: 12/06/21 01:17 Dose: 30 ml Albuterol Sulfate (Albuterol Sulfate 90 Mcg 8 Gm Inhaler) 2 puff INHALE Q4H PRN PRN Reason: shortness of breath or wheezing Last Admin: 12/06/21 11:31 Dose: 2 puff Artificial Tears (Artificial Tears 15 Ml Drops) 2 drop EYE-BOTH Q4H PRN PRN Reason: Dry Eyes Last Admin: 12/06/21 11:33 Dose: 2 drop Ascorbic Acid (Ascorbic Acid 250 Mg Tablet) 250 mg PO DAILY [facility] [place] Last Admin: 12/06/21 09:17 Dose: 250 mg Carbamazepine (Carbamazepine Er 200 Mg Tab.Er.12h) 600 mg PO BID [facility] [place] Last Admin: 12/06/21 09:10 Dose: 600 mg Clonazepam (Clonazepam 0.5 Mg Tablet) 0.5 mg PO BID@0900,1500 [facility] [place] Last Admin: 12/06/21 14:08 Dose: 0.5 mg Clonazepam (Clonazepam 1 Mg Tablet) 1 mg PO BEDTIME [facility] Last Admin: 12/05/21 22:39 Dose: 1 mg Famotidine (Famotidine 20 Mg Tablet) 20 mg PO BID [facility] [place] Last Admin: 12/06/21 09:15 Dose: 20 mg Fluticasone/Vilanterol (Fluticasone/Vilanterol 100/25 Blst.W.Dev) 1 puff INHALE DAILY [facility] [place] Last Admin: 12/06/21 09:20 Dose: 1 puff Hydroxyzine HCl (Hydroxyzine Hcl 50 Mg Tablet) 50 mg PO TID PRN PRN Reason: anxiety Last Admin: 12/05/21 14:39 Dose: 50 mg Hydroxyzine HCl (Hydroxyzine Hcl 50 Mg Tablet) 50 mg PO Q6H PRN PRN Reason: Anxiety Last Admin: 12/06/21 07:22 Dose: 50 mg Lidocaine/Diphenhydr/Alum/Mg/Simeth (Mag&Al/Sim/Diphenhyd/Lidocaine 10 Ml Oral.Susp) 10 ml PO Q4H PRN; Protocol PRN Reason: oral mucous membrane ulcer jeremiah Last Admin: 12/06/21 11:34 Dose: 10 ml Magnesium Hydroxide (Milk Of Magnesia 30 Ml Oral.Susp) 30 ml PO DAILY PRN PRN Reason: Constipation Last Admin: 12/06/21 14:56 Dose: 30 ml Magnesium Hydroxide (Milk Of Magnesia 30 Ml Oral.Susp) 30 ml PO DAILY PRN PRN Reason: Constipation Nicotine Polacrilex (Nicotine Polacrilex 2 Mg Gum) 4 mg BUCCAL Q1H PRN PRN Reason: Nicotine Cravings Last Admin: 12/06/21 14:43 Dose: 4 mg Perphenazine (Perphenazine 8 Mg Tablet) 16 mg PO TID [facility] [place] Last Admin: 12/06/21 14:07 Dose: 16 mg Pravastatin Sodium (Pravastatin Sodium 40 Mg Tablet) 40 mg PO DAILY [facility] Last Admin: 12/06/21 09:26 Dose: Not Given Prazosin HCl (Prazosin Hcl 1 Mg Capsule) 2 mg PO BEDTIME [facility] [place]; Protocol Last Admin: 12/05/21 22:39 Dose: 2 mg Psyllium Hydrophilic Mucilloid (Psyllium Seed 3.4 Gm Powd.Pack) 3.4 gm PO BID [facility] [place] Last Admin: 12/06/21 11:40 Dose: Not Given Quetiapine Fumarate (Quetiapine Fumarate 200 Mg Tablet) 200 mg PO BID@0900,1400 [facility] [place] Last Admin: 12/06/21 14:08 Dose: 200 mg Quetiapine Fumarate (Quetiapine Fumarate 400 Mg Tablet) 400 mg PO BEDTIME [facility] Last Admin: 12/05/21 22:39 Dose: 400 mg Simethicone (Simethicone 80 Mg Tab.Chew) 80 mg PO QIDWMHS PRN PRN Reason: flatulence Last Admin: 12/06/21 07:21 Dose: 80 mg Tamsulosin HCl (Tamsulosin Hcl 0.4 Mg Capsule) 0.4 mg PO BEDTIME [facility] Last Admin: 12/05/21 22:39 Dose: 0.4 mg Trazodone HCl (Trazodone Hcl 50 Mg Tablet) 150 mg PO BEDTIME [facility] Last Admin: 12/05/21 22:39 Dose: 150 mg Trazodone HCl (Trazodone Hcl 50 Mg Tablet) 50 mg PO BEDTIME PRN PRN Reason: Insomnia Last Admin: 12/04/21 22:33 Dose: 50 mg Vitamin E (Vitamin E (Dl,Tocopheryl Acet) 180 Mg (400 Unit) Capsule) 180 mg PO BID [facility] Last Admin: 12/06/21 09:09 Dose: 180 mg Allergies Allergies Allergy/AdvReac Type Severity Reaction Status Date / Time divalproex sodium Allergy Severe PANCREATITI Verified 11/24/21 14:34 [From DEPAKOTE] S haloperidol [From Haldol] Allergy Intermediate DYSTONIC Verified 11/24/21 14:34 REACTION Assessment & Plan Assessment & Plan (1) Schizoaffective disorder: Status: Acute Code(s): F25.9 - Schizoaffective disorder, unspecified Assessment and Plan: has has alot of recent med changes will wait and see effects other than current co constipation- Plan 12/03: continue home meds for now. CV rejected as pt unable to appreciate the circumstances of his admission. will need commitment and benedicto's order. T/C restarting clozaril and lithium, on which pt did well for many years, reportedly. tegretol increased from 400 BID to 600 BID at admission. 12/04: klonopin 0.5/0.5/1 reinstated 12/04 (outpt provider had started it 11/25 at 1 mg TID). magic mouthwash started for oral ulcers. 12/05: slept well last night, still pressured and disorganized. continue current mgmt. I spent minutes with the patient and/or on the patient floor today, greater than?50% of which was spent counseling/coordinating care. Patient educated on: therapeutic strategies Informed Consent: further education needed Reason for contiued inpatient stay Substantial Risk for: inability to function and rapid decompensation
[2021-12-06] MEDS: bisacodyL 10 MG SUPP.RECT PR (21:14)
[2021-12-06 23:45] VITALS: BP 155/83; PULSE 84; RESP 18; TEMP 36.2; O2SAT 98
[2021-12-06] MEDS: traZODone HCL 50 MG TABLET 150 MG PO (23:49)
[2021-12-06] MEDS: QUEtiapine Fumarate 400 MG TABLET PO (23:50)
[2021-12-06] MEDS: Tamsulosin HCL 0.4 MG CAPSULE PO (23:50)
[2021-12-06] MEDS: clonazePAM 1 MG TABLET PO (23:50)
[2021-12-06] MEDS: Prazosin HCL 1 MG CAPSULE 2 MG PO (23:50)
[2021-12-07] MEDS: Nicotine Polacrilex 2 MG GUM 4 MG BUCCAL ×11 (00:29→22:36)
[2021-12-07] MEDS: Acetaminophen 325 MG TABLET 650 MG PO ×2 (06:02→23:28)
[2021-12-07] MEDS: hydrOXYzine HCL 50 MG TABLET PO ×2 (06:02→23:28)
[2021-12-07 08:30] VITALS: BP 142/79; PULSE 79; RESP 18; TEMP 36.5; O2SAT 99
[2021-12-07] MEDS: Famotidine 20 MG TABLET PO ×2 (08:57→22:33)
[2021-12-07] MEDS: QUEtiapine Fumarate 200 MG TABLET PO ×2 (08:58→14:29)
[2021-12-07] MEDS: Perphenazine 8 MG TABLET 16 MG PO ×3 (08:59→22:34)
[2021-12-07] MEDS: clonazePAM 0.5 MG TABLET PO (09:00)
[2021-12-07] MEDS: Vitamin E (Dl,Tocopheryl Acet) 180 MG (400 UNIT) CAPSULE PO ×2 (09:00→22:35)
[2021-12-07] MEDS: Ascorbic Acid 250 MG TABLET PO (09:01)
[2021-12-07] MEDS: Simethicone 80 MG TAB.CHEW PO (09:32)
[2021-12-07] MEDS: carBAMazepine ER 200 MG TAB.ER.12H 600 MG PO ×2 (09:53→22:31)
[2021-12-07] MEDS: Fluticasone/Vilanterol 100/25 BLST.W.DEV 1 PUFF INHALE (10:04)
[2021-12-07] MEDS: Albuterol Sulfate 90 MCG 8 GM INHALER 2 PUFF INHALE ×3 (10:06→23:27)
[2021-12-07] MEDS: Artificial Tears 15 ML DROPS 2 DROP EYE-BOTH ×3 (10:09→23:28)
--- NOTE | 2021-12-07 10:35 | HO.PSYCHPN ---
Subjective Subjective Date of Service: 12/07/21 Reason For Visit: psychosis Subjective Notes: Section 12B Healthcare Proxy: No Guardianship: No Medical Problems Affecting Mental Status: No Interim History: Pt had episode of soiling after mom and ducolax suppository- reported no bm x 5 days- scartched at his head- till bleeding- has some scabs/bandaids on top of head Pt also reported by nursing to be hyperverbal, hypersexual telling a staff that he might rape her. Pt cotinued hyperverbal with loose assoications that are hard to follow- Medication Compliance: Yes Side effects from medications: Yes (constipation) Attending Groups: Intermittent Review of Systems Acute medical concerns: No Medical Review of Systems: unchanged Mental Status Exam Mental Status Exam Patient Appearance: Disheveled, Inappropriate and Unkempt Patient Orientation: Person, Place, Time and Situation Level of Consciousness: Awake, Alert and Inappropriate Patient Behavior: Talkative, Distractible and Good Eye Contact Mood Description: Labile and Expansive Ability to Follow Directions: Fair Speech Pattern: Rambling, Pressured and Includes Profanity Hallucinations: Auditory Delusions: Paranoid Ideation Thought Process: Illogical Thought Content: positive for Loose Associations Abnormal Motor Activity Signs and Symptoms: Aggression (verbal to staff) Judgement: Poor Diagnostics Vital Signs (24Hr): Vital Signs - 24 hr 12/06/21 13:57 12/06/21 23:45 Temperature 97.8 F 97.2 F Pulse Rate 74 84 Respiratory Rate 18 18 Blood Pressure 147/71 H 155/83 H Pulse Oximetry 100 98 Oxygen Delivery Method Room Air Room Air BMI result Body Mass Index 26.2 Labs Results: 12/01/21 14:30 12/03/21 08:33 Medications Medications Current Medications Acetaminophen (Acetaminophen 325 Mg Tablet) 650 mg PO Q6H PRN PRN Reason: Headache/Pain Mild Scale (1-3) Last Admin: 12/07/21 06:02 Dose: 650 mg Al Hydroxide/Mg Hydroxide (Magnesium Hydrox/Alum Hydrox 30 Ml Oral.Susp) 30 ml PO Q6H PRN PRN Reason: Heartburn/Nausea Last Admin: 12/06/21 01:17 Dose: 30 ml Albuterol Sulfate (Albuterol Sulfate 90 Mcg 8 Gm Inhaler) 2 puff INHALE Q4H PRN PRN Reason: shortness of breath or wheezing Last Admin: 12/07/21 10:06 Dose: 2 puff Artificial Tears (Artificial Tears 15 Ml Drops) 2 drop EYE-BOTH Q4H PRN PRN Reason: Dry Eyes Last Admin: 12/07/21 10:09 Dose: 2 drop Ascorbic Acid (Ascorbic Acid 250 Mg Tablet) 250 mg PO DAILY [facility] Last Admin: 12/07/21 09:01 Dose: 250 mg Bisacodyl (Bisacodyl 10 Mg Supp.Rect) 10 mg [place] BEDTIME PRN PRN Reason: Constipation Last Admin: 12/06/21 21:14 Dose: 10 mg Carbamazepine (Carbamazepine Er 200 Mg Tab.Er.12h) 600 mg PO BID [facility] Last Admin: 12/07/21 09:53 Dose: 600 mg Clonazepam (Clonazepam 1 Mg Tablet) 1 mg PO BEDTIME [facility] Last Admin: 12/06/21 23:50 Dose: 1 mg Famotidine (Famotidine 20 Mg Tablet) 20 mg PO BID [facility] Last Admin: 12/07/21 08:57 Dose: 20 mg Fluticasone/Vilanterol (Fluticasone/Vilanterol 100/25 Blst.W.Dev) 1 puff INHALE DAILY [facility] Last Admin: 12/07/21 10:04 Dose: 1 puff Hydroxyzine HCl (Hydroxyzine Hcl 50 Mg Tablet) 50 mg PO Q6H PRN PRN Reason: Anxiety Last Admin: 12/07/21 06:02 Dose: 50 mg Lidocaine/Diphenhydr/Alum/Mg/Simeth (Mag&Al/Sim/Diphenhyd/Lidocaine 10 Ml Oral.Susp) 10 ml PO Q4H PRN; Protocol PRN Reason: oral mucous membrane ulcer jeremiah Last Admin: 12/06/21 16:27 Dose: 10 ml Magnesium Hydroxide (Milk Of Magnesia 30 Ml Oral.Susp) 30 ml PO DAILY PRN PRN Reason: Constipation Last Admin: 12/06/21 14:56 Dose: 30 ml Magnesium Hydroxide (Milk Of Magnesia 30 Ml Oral.Susp) 30 ml PO DAILY PRN PRN Reason: Constipation Nicotine Polacrilex (Nicotine Polacrilex 2 Mg Gum) 4 mg BUCCAL Q1H PRN PRN Reason: Nicotine Cravings Last Admin: 12/07/21 09:54 Dose: 4 mg Olanzapine (Olanzapine 5 Mg Tablet) 5 mg PO Q4H PRN PRN Reason: ginny/psychosis Perphenazine (Perphenazine 8 Mg Tablet) 16 mg PO TID [facility] Last Admin: 12/07/21 08:59 Dose: 16 mg Pravastatin Sodium (Pravastatin Sodium 40 Mg Tablet) 40 mg PO DAILY [facility] Last Admin: 12/07/21 09:57 Dose: Not Given Prazosin HCl (Prazosin Hcl 1 Mg Capsule) 2 mg PO BEDTIME [facility]; Protocol Last Admin: 12/06/21 23:50 Dose: 2 mg Psyllium Hydrophilic Mucilloid (Psyllium Seed 3.4 Gm Powd.Pack) 3.4 gm PO BID [facility] Last Admin: 12/07/21 10:06 Dose: Not Given Quetiapine Fumarate (Quetiapine Fumarate 200 Mg Tablet) 200 mg PO BID@0900,1400 [facility] Last Admin: 12/07/21 08:58 Dose: 200 mg Quetiapine Fumarate (Quetiapine Fumarate 400 Mg Tablet) 400 mg PO BEDTIME [facility] Last Admin: 12/06/21 23:50 Dose: 400 mg Simethicone (Simethicone 80 Mg Tab.Chew) 80 mg PO QIDWMHS PRN PRN Reason: flatulence Last Admin: 12/07/21 09:32 Dose: 80 mg Tamsulosin HCl (Tamsulosin Hcl 0.4 Mg Capsule) 0.4 mg PO BEDTIME [facility] Last Admin: 12/06/21 23:50 Dose: 0.4 mg Trazodone HCl (Trazodone Hcl 50 Mg Tablet) 150 mg PO BEDTIME [facility] Last Admin: 12/06/21 23:49 Dose: 150 mg Trazodone HCl (Trazodone Hcl 50 Mg Tablet) 50 mg PO BEDTIME PRN PRN Reason: Insomnia Last Admin: 12/04/21 22:33 Dose: 50 mg Vitamin E (Vitamin E (Dl,Tocopheryl Acet) 180 Mg (400 Unit) Capsule) 180 mg PO BID [facility] Last Admin: 12/07/21 09:00 Dose: 180 mg Allergies Allergies Allergy/AdvReac Type Severity Reaction Status Date / Time divalproex sodium Allergy Severe PANCREATITI Verified 11/24/21 14:34 [From DEPAKOTE] S haloperidol [From Haldol] Allergy Intermediate DYSTONIC Verified 11/24/21 14:34 REACTION Assessment & Plan Assessment & Plan (1) Schizoaffective disorder: Status: Acute Code(s): F25.9 - Schizoaffective disorder, unspecified Assessment and Plan: \continues really quite manic and disorganized, inc clonazepam and add prn of olanzapine for psychosis already on max seroquel Plan 12/03: continue home meds for now. CV rejected as pt unable to appreciate the circumstances of his admission. will need commitment and benedicto's order. T/C restarting clozaril and lithium, on which pt did well for many years, reportedly. tegretol increased from 400 BID to 600 BID at admission. 12/04: klonopin 0.5/0.5/1 reinstated 12/04 (outpt provider had started it 11/25 at 1 mg TID). magic mouthwash started for oral ulcers. 12/05: slept well last night, still pressured and disorganized. continue current mgmt. I spent minutes with the patient and/or on the patient floor today, greater than?50% of which was spent counseling/coordinating care. Patient educated on: medication risk/benefits and therapeutic strategies Informed Consent: further education needed Reason for contiued inpatient stay Substantial Risk for: harm to others and rapid decompensation
[2021-12-07] MEDS: Mag&Al/Sim/Diphenhyd/Lidocaine 10 ML ORAL.SUSP PO ×2 (11:42→15:30)
[2021-12-07 14:16] VITALS: BP 134/63; PULSE 79; RESP 18; TEMP 36.6; O2SAT 100
[2021-12-07] MEDS: clonazePAM 1 MG TABLET PO ×2 (14:31→22:32)
[2021-12-07] MEDS: Prazosin HCL 1 MG CAPSULE 2 MG PO (22:33)
[2021-12-07] MEDS: Tamsulosin HCL 0.4 MG CAPSULE PO (22:34)
[2021-12-07] MEDS: QUEtiapine Fumarate 400 MG TABLET PO (22:35)
[2021-12-07] MEDS: traZODone HCL 50 MG TABLET 150 MG PO (22:35)
[2021-12-07 22:40] VITALS: BP 158/101; PULSE 101; RESP 18; TEMP 36.6; O2SAT 97
[2021-12-08] MEDS: Mag&Al/Sim/Diphenhyd/Lidocaine 10 ML ORAL.SUSP PO ×3 (00:58→21:52)
[2021-12-08] MEDS: Nicotine Polacrilex 2 MG GUM 4 MG BUCCAL ×8 (01:40→22:48)
[2021-12-08 09:23] VITALS: BP 135/87; PULSE 84; RESP 18; TEMP 36.4; O2SAT 99
[2021-12-08] MEDS: Fluticasone/Vilanterol 100/25 BLST.W.DEV 1 PUFF INHALE (09:23)
[2021-12-08] MEDS: carBAMazepine ER 200 MG TAB.ER.12H 600 MG PO ×2 (09:24→22:35)
[2021-12-08] MEDS: QUEtiapine Fumarate 200 MG TABLET PO ×2 (09:25→14:27)
[2021-12-08] MEDS: Ascorbic Acid 250 MG TABLET PO (09:25)
[2021-12-08] MEDS: Perphenazine 8 MG TABLET 16 MG PO ×3 (09:25→22:36)
[2021-12-08] MEDS: clonazePAM 1 MG TABLET PO ×3 (09:25→22:37)
[2021-12-08] MEDS: Vitamin E (Dl,Tocopheryl Acet) 180 MG (400 UNIT) CAPSULE PO ×2 (09:25→22:36)
[2021-12-08] MEDS: Famotidine 20 MG TABLET PO ×2 (09:26→22:36)
--- NOTE | 2021-12-08 09:54 | PC.NURSE ---
Patient got upset when given pravastatin with morning medications. Patient threw pill at this RN and stated That is poison that eats at your insides. Why would you try to poison me .
[2021-12-08] MEDS: Simethicone 80 MG TAB.CHEW PO ×2 (14:30→20:36)
[2021-12-08] MEDS: Albuterol Sulfate 90 MCG 8 GM INHALER 2 PUFF INHALE ×2 (14:32→20:25)
[2021-12-08] MEDS: Artificial Tears 15 ML DROPS 2 DROP EYE-BOTH ×2 (14:32→20:25)
[2021-12-08] MEDS: Acetaminophen 325 MG TABLET 650 MG PO ×2 (14:32→20:35)
--- NOTE | 2021-12-08 15:41 | HO.PSYCHPN ---
Subjective Subjective Date of Service: 12/08/21 Reason For Visit: psychosis Interim History: pressured, disorganized. moderately labile. unable to feel that mutually cogent communication is taking place. 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 reports he is working on power and coping skills here. moderately agitated when commitment and medications order are discussed. pt's sister yanely called, spent 10 minutes discussing case with her. per staff, 12b up today. making sexualized comments to female staff. sister visited. up late playing cards. per MARVEL melton, pt said to her this morning, let's just go to the sex room. let's have sex. also per MARVEL melton, he threatened to kick his roommate in the balls and kill him. Mental Status Exam Mental Status Exam Narrative: Pt is alert and oriented; behavior is cooperative, disorganized, intermittently agitated; dressed in hospital carlin, adequate hygiene; affect variable, hyper-intense, mod-labile; eye contact intense; Speech incr rate, volume. nml prosody, decr latency; psychomotor agitation; thought process disorganized; delusional thinking present; no SI/HI/AVH expressed. Patients insight and judgment are impaired. Diagnostics Vital Signs (24Hr): Vital Signs - 24 hr 12/07/21 22:40 12/08/21 09:23 Temperature 97.9 F 97.6 F Pulse Rate 101 H 84 Respiratory Rate 18 18 Blood Pressure 158/101 H 135/87 Pulse Oximetry 97 99 Oxygen Delivery Method Room Air Room Air BMI result Body Mass Index 26.2 Labs Results: 12/01/21 14:30 12/03/21 08:33 Medications Medications Current Medications Acetaminophen (Acetaminophen 325 Mg Tablet) 650 mg PO Q6H PRN PRN Reason: Headache/Pain Mild Scale (1-3) Last Admin: 12/08/21 14:32 Dose: 650 mg Al Hydroxide/Mg Hydroxide (Magnesium Hydrox/Alum Hydrox 30 Ml Oral.Susp) 30 ml PO Q6H PRN PRN Reason: Heartburn/Nausea Last Admin: 12/06/21 01:17 Dose: 30 ml Albuterol Sulfate (Albuterol Sulfate 90 Mcg 8 Gm Inhaler) 2 puff INHALE Q4H PRN PRN Reason: shortness of breath or wheezing Last Admin: 12/08/21 14:32 Dose: 2 puff Artificial Tears (Artificial Tears 15 Ml Drops) 2 drop EYE-BOTH Q4H PRN PRN Reason: Dry Eyes Last Admin: 12/08/21 14:32 Dose: 2 drop Ascorbic Acid (Ascorbic Acid 250 Mg Tablet) 250 mg PO DAILY [facility] Last Admin: 12/08/21 09:25 Dose: 250 mg Bisacodyl (Bisacodyl 10 Mg Supp.Rect) 10 mg [place] BEDTIME PRN PRN Reason: Constipation Last Admin: 12/06/21 21:14 Dose: 10 mg Carbamazepine (Carbamazepine Er 200 Mg Tab.Er.12h) 600 mg PO BID [facility] Last Admin: 12/08/21 09:24 Dose: 600 mg Clonazepam (Clonazepam 1 Mg Tablet) 1 mg PO BEDTIME [facility] Last Admin: 12/07/21 22:32 Dose: 1 mg Clonazepam (Clonazepam 1 Mg Tablet) 1 mg PO BID@0900,1500 [facility] Last Admin: 12/08/21 14:26 Dose: 1 mg Famotidine (Famotidine 20 Mg Tablet) 20 mg PO BID [facility] Last Admin: 12/08/21 09:26 Dose: 20 mg Fluticasone/Vilanterol (Fluticasone/Vilanterol 100/25 Blst.W.Dev) 1 puff INHALE DAILY [facility] Last Admin: 12/08/21 09:23 Dose: 1 puff Hydroxyzine HCl (Hydroxyzine Hcl 50 Mg Tablet) 50 mg PO Q6H PRN PRN Reason: Anxiety Last Admin: 12/07/21 23:28 Dose: 50 mg Lidocaine/Diphenhydr/Alum/Mg/Simeth (Mag&Al/Sim/Diphenhyd/Lidocaine 10 Ml Oral.Susp) 10 ml PO Q4H PRN; Protocol PRN Reason: oral mucous membrane ulcer jeremiah Last Admin: 12/08/21 15:29 Dose: 10 ml Magnesium Hydroxide (Milk Of Magnesia 30 Ml Oral.Susp) 30 ml PO DAILY PRN PRN Reason: Constipation Last Admin: 12/06/21 14:56 Dose: 30 ml Nicotine Polacrilex (Nicotine Polacrilex 2 Mg Gum) 4 mg BUCCAL Q1H PRN PRN Reason: Nicotine Cravings Last Admin: 12/08/21 13:51 Dose: 4 mg Olanzapine (Olanzapine 5 Mg Tablet) 5 mg PO Q4H PRN PRN Reason: ginny/psychosis Perphenazine (Perphenazine 8 Mg Tablet) 16 mg PO TID [facility] Last Admin: 12/08/21 14:27 Dose: 16 mg Pravastatin Sodium (Pravastatin Sodium 40 Mg Tablet) 40 mg PO DAILY [facility] Last Admin: 12/08/21 09:29 Dose: Not Given Prazosin HCl (Prazosin Hcl 1 Mg Capsule) 2 mg PO BEDTIME [facility]; Protocol Last Admin: 12/07/21 22:33 Dose: 2 mg Psyllium Hydrophilic Mucilloid (Psyllium Seed 3.4 Gm Powd.Pack) 3.4 gm PO BID [facility] Last Admin: 12/08/21 09:26 Dose: Not Given Quetiapine Fumarate (Quetiapine Fumarate 200 Mg Tablet) 200 mg PO BID@0900,1400 [facility] Last Admin: 12/08/21 14:27 Dose: 200 mg Quetiapine Fumarate (Quetiapine Fumarate 400 Mg Tablet) 400 mg PO BEDTIME [facility] Last Admin: 12/07/21 22:35 Dose: 400 mg Simethicone (Simethicone 80 Mg Tab.Chew) 80 mg PO QIDWMHS PRN PRN Reason: flatulence Last Admin: 12/08/21 14:30 Dose: 80 mg Tamsulosin HCl (Tamsulosin Hcl 0.4 Mg Capsule) 0.4 mg PO BEDTIME [facility] Last Admin: 12/07/21 22:34 Dose: 0.4 mg Trazodone HCl (Trazodone Hcl 50 Mg Tablet) 150 mg PO BEDTIME [facility] Last Admin: 12/07/21 22:35 Dose: 150 mg Trazodone HCl (Trazodone Hcl 50 Mg Tablet) 50 mg PO BEDTIME PRN PRN Reason: Insomnia Last Admin: 12/04/21 22:33 Dose: 50 mg Vitamin E (Vitamin E (Dl,Tocopheryl Acet) 180 Mg (400 Unit) Capsule) 180 mg PO BID [facility] Last Admin: 12/08/21 09:25 Dose: 180 mg Allergies Allergies Allergy/AdvReac Type Severity Reaction Status Date / Time divalproex sodium Allergy Severe PANCREATITI Verified 11/24/21 14:34 [From DEPAKOTE] S haloperidol [From Haldol] Allergy Intermediate DYSTONIC Verified 11/24/21 14:34 REACTION Assessment & Plan Assessment & Plan (1) Schizoaffective disorder: Status: Acute Code(s): F25.9 - Schizoaffective disorder, unspecified Assessment and Plan: continues really quite manic and disorganized, inc clonazepam and add prn of olanzapine for psychosis already on max seroquel Plan 12/03: continue home meds for now. CV rejected as pt unable to appreciate the circumstances of his admission. will need commitment and benedicto's order. T/C restarting clozaril and lithium, on which pt did well for many years, reportedly. tegretol increased from 400 BID to 600 BID at admission. 12/04: klonopin 0.5/0.5/1 reinstated 12/04 (outpt provider had started it 11/25 at 1 mg TID). magic mouthwash started for oral ulcers. 12/05: slept well last night, still pressured and disorganized. continue current mgmt. 12/08: 12b up, applied for commitment and meds. making sexually inappropriate comments/suggestions to staff, threatening violence and toward male peer. I spent ___35___ minutes with the patient and/or on the patient floor today, greater than?50% of which was spent counseling/coordinating care. Reason for contiued inpatient stay Substantial Risk for: harm to self, harm to others and inability to function
--- NOTE | 2021-12-08 15:54 | PC.NURSE ---
Late entry note for 11:00: Patient and roommate got into verbal alteration. Cedric stated to roommate I am going to kick you in the balls , and I am going to kill you . Patients had to be and room changes were made. Patient then stated to this RN lets go to the sex room. Lets have sex .
[2021-12-08] MEDS: hydrOXYzine HCL 50 MG TABLET PO (20:25)
[2021-12-08 22:30] VITALS: BP 142/88; PULSE 83; RESP 18; TEMP 36.6; O2SAT 100
[2021-12-08] MEDS: Prazosin HCL 1 MG CAPSULE 2 MG PO (22:35)
[2021-12-08] MEDS: Tamsulosin HCL 0.4 MG CAPSULE PO (22:36)
[2021-12-08] MEDS: QUEtiapine Fumarate 400 MG TABLET PO (22:36)
[2021-12-08] MEDS: traZODone HCL 50 MG TABLET 150 MG PO (22:36)
[2021-12-09] MEDS: traZODone HCL 50 MG TABLET PO (00:06)
[2021-12-09] MEDS: Nicotine Polacrilex 2 MG GUM 4 MG BUCCAL ×8 (04:00→22:42)
[2021-12-09] MEDS: Mag&Al/Sim/Diphenhyd/Lidocaine 10 ML ORAL.SUSP PO (04:37)
[2021-12-09 09:48] VITALS: BP 131/77; PULSE 73; RESP 16; TEMP 36.6; O2SAT 98
[2021-12-09] MEDS: Fluticasone/Vilanterol 100/25 BLST.W.DEV 1 PUFF INHALE (09:49)
[2021-12-09] MEDS: Perphenazine 8 MG TABLET 16 MG PO ×3 (09:50→22:32)
[2021-12-09] MEDS: carBAMazepine ER 200 MG TAB.ER.12H 600 MG PO ×2 (09:50→22:31)
[2021-12-09] MEDS: Ascorbic Acid 250 MG TABLET PO (09:50)
[2021-12-09] MEDS: Vitamin E (Dl,Tocopheryl Acet) 180 MG (400 UNIT) CAPSULE PO ×2 (09:50→22:32)
[2021-12-09] MEDS: Famotidine 20 MG TABLET PO ×2 (09:51→22:33)
[2021-12-09] MEDS: clonazePAM 1 MG TABLET PO ×2 (09:51→13:59)
[2021-12-09] MEDS: QUEtiapine Fumarate 200 MG TABLET PO ×2 (09:51→13:59)
[2021-12-09] MEDS: Lithium Carbonate ER 450 MG TABLET.ER PO ×2 (09:58→22:33)
[2021-12-09] MEDS: Artificial Tears 15 ML DROPS 2 DROP EYE-BOTH ×2 (11:05→19:54)
[2021-12-09] MEDS: Acetaminophen 325 MG TABLET 650 MG PO ×2 (11:05→19:54)
[2021-12-09] MEDS: hydrOXYzine HCL 50 MG TABLET PO ×2 (11:05→19:54)
[2021-12-09] MEDS: Albuterol Sulfate 90 MCG 8 GM INHALER 2 PUFF INHALE ×2 (11:05→19:54)
--- NOTE | 2021-12-09 15:12 | P.PNPSI_ITS ---
Subjective Subjective Date of Service: 12/09/21 Reason For Visit: psychosis Interim History: stable presentation. pressured, disorganized. intermittent ability to communicate something germane or meaningful. seems amenable to taking lithium. per staff, needing redirection for inappropriate gestures, language. standing on chairs. denying Sx. Mental Status Exam Mental Status Exam Narrative: Pt is alert and oriented; behavior is cooperative, disorganized, intermittently agitated; dressed in hospital carlin, adequate hygiene; affect variable, hyper- intense, mod-labile; eye contact intense; Speech incr rate, volume. nml prosody, decr latency; psychomotor agitation; thought process disorganized; delusional thinking present; no SI/HI/AVH expressed. Patients insight and judgm ent are impaired. Diagnostics Vital Signs (24Hr): Vital Signs - 24 hr 12/08/21 22:30 12/09/21 09:48 Temperature 97.9 F 97.9 F Pulse Rate 83 73 Respiratory Rate 18 16 Blood Pressure 142/88 H 131/77 Pulse Oximetry 100 98 Oxygen Delivery Method Room Air Room Air BMI result Body Mass Index 26.2 Labs Results: 12/01/21 14:30 12/03/21 08:33 Medications Medications Current Medications Acetaminophen (Acetaminophen 325 Mg Tablet) 650 mg PO Q6H PRN PRN Reason: Headache/Pain Mild Scale (1-3) Last Admin: 12/09/21 11:05 Dose: 650 mg Al Hydroxide/Mg Hydroxide (Magnesium Hydrox/Alum Hydrox 30 Ml Oral.Susp) 30 ml PO Q6H PRN PRN Reason: Heartburn/Nausea Last Admin: 12/06/21 01:17 Dose: 30 ml Albuterol Sulfate (Albuterol Sulfate 90 Mcg 8 Gm Inhaler) 2 puff INHALE Q4H PRN PRN Reason: shortness of breath or wheezing Last Admin: 12/09/21 11:05 Dose: 2 puff Artificial Tears (Artificial Tears 15 Ml Drops) 2 drop EYE-BOTH Q4H PRN PRN Reason: Dry Eyes Last Admin: 12/09/21 11:05 Dose: 2 drop Ascorbic Acid (Ascorbic Acid 250 Mg Tablet) 250 mg PO DAILY [facility] Last Admin: 12/09/21 09:50 Dose: 250 mg Bisacodyl (Bisacodyl 10 Mg Supp.Rect) 10 mg [place] BEDTIME PRN PRN Reason: Constipation Last Admin: 12/06/21 21:14 Dose: 10 mg Carbamazepine (Carbamazepine Er 200 Mg Tab.Er.12h) 600 mg PO BID [facility] Last Admin: 12/09/21 09:50 Dose: 600 mg Clonazepam (Clonazepam 1 Mg Tablet) 1 mg PO BEDTIME [facility] Last Admin: 12/08/21 22:37 Dose: 1 mg Clonazepam (Clonazepam 1 Mg Tablet) 1 mg PO BID@0900,1500 [facility] Last Admin: 12/09/21 13:59 Dose: 1 mg Famotidine (Famotidine 20 Mg Tablet) 20 mg PO BID [facility] Last Admin: 12/09/21 09:51 Dose: 20 mg Fluticasone/Vilanterol (Fluticasone/Vilanterol 100/25 Blst.W.Dev) 1 puff INHALE DAILY [facility] Last Admin: 12/09/21 09:49 Dose: 1 puff Hydroxyzine HCl (Hydroxyzine Hcl 50 Mg Tablet) 50 mg PO Q6H PRN PRN Reason: Anxiety Last Admin: 12/09/21 11:05 Dose: 50 mg Lidocaine/Diphenhydr/Alum/Mg/Simeth (Mag&Al/Sim/Diphenhyd/Lidocaine 10 Ml Oral. Susp) 10 ml PO Q4H PRN; Protocol PRN Reason: oral mucous membrane ulcer jeremiah Last Admin: 12/09/21 04:37 Dose: 10 ml Arion Carbonate (Arion Carbonate Er 450 Mg Tablet.Er) 450 mg PO BID [facility] Last Admin: 12/09/21 09:58 Dose: 450 mg Magnesium Hydroxide (Milk Of Magnesia 30 Ml Oral.Susp) 30 ml PO DAILY PRN PRN Reason: Constipation Last Admin: 12/06/21 14:56 Dose: 30 ml Nicotine Polacrilex (Nicotine Polacrilex 2 Mg Gum) 4 mg BUCCAL Q1H PRN PRN Reason: Nicotine Cravings Last Admin: 12/09/21 13:58 Dose: 4 mg Olanzapine (Olanzapine 5 Mg Tablet) 5 mg PO Q4H PRN PRN Reason: ginny/psychosis Perphenazine (Perphenazine 8 Mg Tablet) 16 mg PO TID [facility] Last Admin: 12/09/21 14:00 Dose: 16 mg Pravastatin Sodium (Pravastatin Sodium 40 Mg Tablet) 40 mg PO DAILY [facility] Last Admin: 12/09/21 09:52 Dose: Not Given Prazosin HCl (Prazosin Hcl 1 Mg Capsule) 2 mg PO BEDTIME [facility]; Protocol Last Admin: 12/08/21 22:35 Dose: 2 mg Psyllium Hydrophilic Mucilloid (Psyllium Seed 3.4 Gm Powd.Pack) 3.4 gm PO BID [facility] Last Admin: 12/09/21 09:52 Dose: Not Given Quetiapine Fumarate (Quetiapine Fumarate 200 Mg Tablet) 200 mg PO BID@0900,1400 [facility] Last Admin: 12/09/21 13:59 Dose: 200 mg Quetiapine Fumarate (Quetiapine Fumarate 400 Mg Tablet) 400 mg PO BEDTIME [facility] Last Admin: 12/08/21 22:36 Dose: 400 mg Simethicone (Simethicone 80 Mg Tab.Chew) 80 mg PO QIDWMHS PRN PRN Reason: flatulence Last Admin: 12/08/21 20:36 Dose: 80 mg Tamsulosin HCl (Tamsulosin Hcl 0.4 Mg Capsule) 0.4 mg PO BEDTIME [facility] Last Admin: 12/08/21 22:36 Dose: 0.4 mg Trazodone HCl (Trazodone Hcl 50 Mg Tablet) 150 mg PO BEDTIME [facility] Last Admin: 12/08/21 22:36 Dose: 150 mg Trazodone HCl (Trazodone Hcl 50 Mg Tablet) 50 mg PO BEDTIME PRN PRN Reason: Insomnia Last Admin: 12/09/21 00:06 Dose: 50 mg Vitamin E (Vitamin E (Dl,Tocopheryl Acet) 180 Mg (400 Unit) Capsule) 180 mg PO BID [facility] Last Admin: 12/09/21 09:50 Dose: 180 mg Allergies Allergies Allergy/AdvReac Type Severity Reaction Status Date / Time divalproex sodium Allergy Severe PANCREATITI Verified 11/24/21 14:34 [From DEPAKOTE] S haloperidol [From Haldol] Allergy Intermediate DYSTONIC Verified 11/24/21 14:34 REACTION Assessment & Plan Assessment & Plan (1) Schizoaffective disorder: Status: Acute Code(s): F25.9 - Schizoaffective disorder, unspecified Assessment and Plan: continues really quite manic and disorganized, inc clonazepam and add prn of olanzapine for psychosis already on max seroquel Plan 12/03: continue home meds for now. CV rejected as pt unable to appreciate the circumstances of his admission. will need commitment and benedicto's order. T/C restarting clozaril and lithium, on which pt did well for many years, reportedly. tegretol increased from 400 BID to 600 BID at admission. 12/04: klonopin 0.5/0.5/1 reinstated 12/04 (outpt provider had started it 11/25 at 1 mg TID). magic mouthwash started for oral ulcers. 12/05: slept well last night, still pressured and disorganized. continue current mgmt. 12/08: 12b up, applied for commitment and meds. making sexually inappropriate comments/suggestions to staff, threatening violence and toward male peer. 12/09: same presentation as yesterday. started lithium 450 mg BID today. I spent __20____ minutes with the patient and/or on the patient floor today, greater than?50% of which was spent counseling/coordinating care. Reason for contiued inpatient stay Substantial Risk for: harm to self, harm to others, inability to function and rapid decompensation
[2021-12-09] MEDS: OLANZapine 5 MG TABLET PO (19:59)
[2021-12-09 20:00] VITALS: BP 120/77; PULSE 83; TEMP 36.6; O2SAT 100
[2021-12-09] MEDS: traZODone HCL 50 MG TABLET 150 MG PO (22:32)
[2021-12-09] MEDS: Prazosin HCL 1 MG CAPSULE 2 MG PO (22:32)
[2021-12-09] MEDS: Tamsulosin HCL 0.4 MG CAPSULE PO (22:33)
[2021-12-09] MEDS: QUEtiapine Fumarate 400 MG TABLET PO (22:33)
[2021-12-10] MEDS: Nicotine Polacrilex 2 MG GUM 4 MG BUCCAL ×8 (01:00→22:42)
[2021-12-10] MEDS: Artificial Tears 15 ML DROPS 2 DROP EYE-BOTH ×3 (01:34→23:29)
[2021-12-10] MEDS: Acetaminophen 325 MG TABLET 650 MG PO ×2 (01:34→13:36)
[2021-12-10] MEDS: Albuterol Sulfate 90 MCG 8 GM INHALER 2 PUFF INHALE ×3 (01:35→23:29)
[2021-12-10] MEDS: OLANZapine 5 MG TABLET PO ×3 (01:35→23:14)
[2021-12-10] MEDS: hydrOXYzine HCL 50 MG TABLET PO ×3 (01:35→23:13)
[2021-12-10] MEDS: Simethicone 80 MG TAB.CHEW PO ×3 (01:35→20:53)
[2021-12-10] MEDS: traZODone HCL 50 MG TABLET PO (01:35)
[2021-12-10 08:25] VITALS: BP 136/80; PULSE 75; TEMP 36.3; O2SAT 100
[2021-12-10] MEDS: Lithium Carbonate ER 450 MG TABLET.ER PO ×2 (08:52→23:15)
[2021-12-10] MEDS: carBAMazepine ER 200 MG TAB.ER.12H 600 MG PO ×2 (08:53→23:13)
[2021-12-10] MEDS: Ascorbic Acid 250 MG TABLET PO (08:53)
[2021-12-10] MEDS: Perphenazine 8 MG TABLET 16 MG PO ×3 (08:53→23:15)
[2021-12-10] MEDS: QUEtiapine Fumarate 200 MG TABLET PO ×2 (08:53→13:36)
[2021-12-10] MEDS: clonazePAM 1 MG TABLET PO ×2 (08:54→15:31)
[2021-12-10] MEDS: Vitamin E (Dl,Tocopheryl Acet) 180 MG (400 UNIT) CAPSULE PO ×2 (08:54→23:13)
[2021-12-10] MEDS: Famotidine 20 MG TABLET PO ×2 (08:54→23:15)
[2021-12-10] MEDS: Fluticasone/Vilanterol 100/25 BLST.W.DEV 1 PUFF INHALE (08:59)
--- NOTE | 2021-12-10 14:18 | HO.PSYCHPN ---
Subjective Subjective Date of Service: 12/10/21 Reason For Visit: psychosis Interim History: asleep in bed, minimally rousable. no questions or concerns for MD. per staff, anxious and restless yesterday. hyper-verbal. disorganized with pacing. no SI/HI. states he is only sleeping 4 hours. sexually inappropriate comments. went to bed at 0200. got extra zyprexa for sleep. Mental Status Exam Mental Status Exam Narrative: Pt is asleep in bed, minimally rousable. repeatedly falling back asleep. no questions or complaints for MD. Diagnostics Vital Signs (24Hr): Vital Signs - 24 hr 12/09/21 20:00 12/10/21 08:25 Temperature 97.8 F 97.3 F Pulse Rate 83 75 Blood Pressure 120/77 136/80 Pulse Oximetry 100 100 Oxygen Delivery Method Room Air Room Air BMI result Body Mass Index 26.2 Labs Results: 12/01/21 14:30 12/03/21 08:33 Medications Medications Current Medications Acetaminophen (Acetaminophen 325 Mg Tablet) 650 mg PO Q6H PRN PRN Reason: Headache/Pain Mild Scale (1-3) Last Admin: 12/10/21 13:36 Dose: 650 mg Al Hydroxide/Mg Hydroxide (Magnesium Hydrox/Alum Hydrox 30 Ml Oral.Susp) 30 ml PO Q6H PRN PRN Reason: Heartburn/Nausea Last Admin: 12/06/21 01:17 Dose: 30 ml Albuterol Sulfate (Albuterol Sulfate 90 Mcg 8 Gm Inhaler) 2 puff INHALE Q4H PRN PRN Reason: shortness of breath or wheezing Last Admin: 12/10/21 13:40 Dose: 2 puff Artificial Tears (Artificial Tears 15 Ml Drops) 2 drop EYE-BOTH Q4H PRN PRN Reason: Dry Eyes Last Admin: 12/10/21 13:39 Dose: 2 drop Ascorbic Acid (Ascorbic Acid 250 Mg Tablet) 250 mg PO DAILY DAVY Last Admin: 12/10/21 08:53 Dose: 250 mg Bisacodyl (Bisacodyl 10 Mg Supp.Rect) 10 mg [place] BEDTIME PRN PRN Reason: Constipation Last Admin: 12/06/21 21:14 Dose: 10 mg Carbamazepine (Carbamazepine Er 200 Mg Tab.Er.12h) 600 mg PO BID DAVY Last Admin: 12/10/21 08:53 Dose: 600 mg Clonazepam (Clonazepam 1 Mg Tablet) 1 mg PO BID@0900,1500 [facility] [place] Last Admin: 12/10/21 08:54 Dose: 1 mg Famotidine (Famotidine 20 Mg Tablet) 20 mg PO BID [facility] [place] Last Admin: 12/10/21 08:54 Dose: 20 mg Fluticasone/Vilanterol (Fluticasone/Vilanterol 100/25 Blst.W.Dev) 1 puff INHALE DAILY [facility] [place] Last Admin: 12/10/21 08:59 Dose: 1 puff Hydroxyzine HCl (Hydroxyzine Hcl 50 Mg Tablet) 50 mg PO Q6H PRN PRN Reason: Anxiety Last Admin: 12/10/21 13:36 Dose: 50 mg Lidocaine/Diphenhydr/Alum/Mg/Simeth (Mag&Al/Sim/Diphenhyd/Lidocaine 10 Ml Oral.Susp) 10 ml PO Q4H PRN; Protocol PRN Reason: oral mucous membrane ulcer jeremiah Last Admin: 12/09/21 04:37 Dose: 10 ml [place] Carbonate ([place] Carbonate Er 450 Mg Tablet.Er) 450 mg PO BID [facility] [place] Last Admin: 12/10/21 08:52 Dose: 450 mg Magnesium Hydroxide (Milk Of Magnesia 30 Ml Oral.Susp) 30 ml PO DAILY PRN PRN Reason: Constipation Last Admin: 12/06/21 14:56 Dose: 30 ml Nicotine Polacrilex (Nicotine Polacrilex 2 Mg Gum) 4 mg [place]CCAL Q1H PRN PRN Reason: Nicotine Cravings Last Admin: 12/10/21 13:36 Dose: 4 mg Olanzapine (Olanzapine 5 Mg Tablet) 5 mg PO Q4H PRN PRN Reason: ginny/psychosis Last Admin: 12/10/21 13:36 Dose: 5 mg Perphenazine (Perphenazine 8 Mg Tablet) 16 mg PO TID [facility] [place] Last Admin: 12/10/21 08:53 Dose: 16 mg Pravastatin Sodium (Pravastatin Sodium 40 Mg Tablet) 40 mg PO DAILY [facility] [place] Last Admin: 12/10/21 08:52 Dose: Not Given Prazosin HCl (Prazosin Hcl 1 Mg Capsule) 2 mg PO BEDTIME [facility] [place]; Protocol Last Admin: 12/09/21 22:32 Dose: 2 mg Psyllium Hydrophilic Mucilloid (Psyllium Seed 3.4 Gm Powd.Pack) 3.4 gm PO BID [facility] [place] Last Admin: 12/10/21 08:51 Dose: Not Given Quetiapine Fumarate (Quetiapine Fumarate 200 Mg Tablet) 200 mg PO BID@0900,1400 [facility] [place] Last Admin: 12/10/21 13:36 Dose: 200 mg Quetiapine Fumarate (Quetiapine Fumarate 400 Mg Tablet) 400 mg PO BEDTIME [facility] [place] Last Admin: 12/09/21 22:33 Dose: 400 mg Simethicone (Simethicone 80 Mg Tab.Chew) 80 mg PO QIDWMHS PRN PRN Reason: flatulence Last Admin: 12/10/21 13:37 Dose: 80 mg Tamsulosin HCl (Tamsulosin Hcl 0.4 Mg Capsule) 0.4 mg PO BEDTIME [facility] [place] Last Admin: 12/09/21 22:33 Dose: 0.4 mg Trazodone HCl (Trazodone Hcl 50 Mg Tablet) 150 mg PO BEDTIME [facility] [place] Last Admin: 12/09/21 22:32 Dose: 150 mg Trazodone HCl (Trazodone Hcl 50 Mg Tablet) 50 mg PO BEDTIME PRN PRN Reason: Insomnia Last Admin: 12/10/21 01:35 Dose: 50 mg Vitamin E (Vitamin E (Dl,Tocopheryl Acet) 180 Mg (400 Unit) Capsule) 180 mg PO BID [facility] [place] Last Admin: 12/10/21 08:54 Dose: 180 mg Allergies Allergies Allergy/AdvReac Type Severity Reaction Status Date / Time divalproex sodium Allergy Severe PANCREATITI Verified 11/24/21 14:34 [From DEPAKOTE] S haloperidol [From Haldol] Allergy Intermediate DYSTONIC Verified 11/24/21 14:34 REACTION Assessment & Plan Assessment & Plan (1) Schizoaffective disorder: Status: Acute Code(s): F25.9 - Schizoaffective disorder, unspecified Assessment and Plan: continues really quite manic and disorganized, inc clonazepam and add prn of olanzapine for psychosis already on max seroquel Plan 12/03: continue home meds for now. CV rejected as pt unable to appreciate the circumstances of his admission. will need commitment and benedicto's order. T/C restarting clozaril and lithium, on which pt did well for many years, reportedly. tegretol increased from 400 BID to 600 BID at admission. 12/04: klonopin 0.5/0.5/1 reinstated 12/04 (outpt provider had started it 11/25 at 1 mg TID). magic mouthwash started for oral ulcers. 12/05: slept well last night, still pressured and disorganized. continue current mgmt. 12/08: 12b up, applied for commitment and meds. making sexually inappropriate comments/suggestions to staff, threatening violence and toward male peer. 12/09: same presentation as yesterday. started lithium 450 mg BID today. 12/10: no change in presentation, compliant with lithium. I spent ___20___ minutes with the patient and/or on the patient floor today, greater than?50% of which was spent counseling/coordinating care. Reason for contiued inpatient stay Substantial Risk for: harm to self, harm to others, inability to function and rapid decompensation
[2021-12-10] MEDS: Mag&Al/Sim/Diphenhyd/Lidocaine 10 ML ORAL.SUSP PO (16:10)
[2021-12-10] MEDS: Magnesium Hydrox/Alum Hydrox 30 ML ORAL.SUSP PO (19:22)
[2021-12-10] MEDS: Prazosin HCL 1 MG CAPSULE 2 MG PO (23:12)
[2021-12-10] MEDS: QUEtiapine Fumarate 400 MG TABLET PO (23:12)
[2021-12-10] MEDS: traZODone HCL 50 MG TABLET 150 MG PO (23:13)
[2021-12-10] MEDS: Tamsulosin HCL 0.4 MG CAPSULE PO (23:14)
[2021-12-10 23:22] VITALS: BP 129/67; PULSE 75; TEMP 36.2; O2SAT 98
[2021-12-11] MEDS: Nicotine Polacrilex 2 MG GUM 4 MG BUCCAL ×4 (00:20→11:41)
[2021-12-11] MEDS: traZODone HCL 50 MG TABLET PO ×2 (02:49→23:51)
[2021-12-11] MEDS: OLANZapine 5 MG TABLET PO ×2 (02:49→23:56)
[2021-12-11] MEDS: Acetaminophen 325 MG TABLET 650 MG PO ×3 (02:49→23:49)
[2021-12-11 07:00] VITALS: BMI 29.8
[2021-12-11 08:45] VITALS: BP 140/93; PULSE 92; RESP 18; TEMP 36.1; O2SAT 96
[2021-12-11] MEDS: Vitamin E (Dl,Tocopheryl Acet) 180 MG (400 UNIT) CAPSULE PO ×2 (08:47→23:50)
[2021-12-11] MEDS: carBAMazepine ER 200 MG TAB.ER.12H 600 MG PO ×2 (08:47→23:48)
[2021-12-11] MEDS: Ascorbic Acid 250 MG TABLET PO (08:48)
[2021-12-11] MEDS: clonazePAM 1 MG TABLET PO ×2 (08:48→15:12)
[2021-12-11] MEDS: Famotidine 20 MG TABLET PO ×2 (08:49→23:50)
[2021-12-11] MEDS: Lithium Carbonate ER 450 MG TABLET.ER PO ×2 (08:49→23:50)
[2021-12-11] MEDS: QUEtiapine Fumarate 200 MG TABLET PO ×2 (08:50→13:35)
[2021-12-11] MEDS: Perphenazine 8 MG TABLET 16 MG PO ×3 (08:50→23:52)
[2021-12-11] MEDS: Fluticasone/Vilanterol 100/25 BLST.W.DEV 1 PUFF INHALE (08:52)
[2021-12-11] MEDS: Artificial Tears 15 ML DROPS 2 DROP EYE-BOTH ×2 (15:11→23:53)
[2021-12-11] MEDS: Albuterol Sulfate 90 MCG 8 GM INHALER 2 PUFF INHALE ×2 (15:11→23:53)
[2021-12-11] MEDS: hydrOXYzine HCL 50 MG TABLET PO ×2 (15:13→23:49)
--- NOTE | 2021-12-11 16:35 | HO.PSYCHPN ---
Subjective Subjective Date of Service: 12/11/21 Reason For Visit: psychosis Interim History: little change in presentation, perhaps slightly less pressured, better able to attend to interaction and communicate. looked at pt's legs, which did appear to be mildly edematous. he was unable to provide a reasonable Hx for when they became so, but seemed to mention lithium in connection. also viewed plantar fissure. pt denied any tongue swelling or problems, only saying he has been biting it repeatedly, accidentally, due to chewing nicorette. MD offered to switch his Rx to lozenges so as to avoid this problem, and he agreed. also suggested DC of prazosin to see if edema improved and pravachol bcse pt was refusing to take it anyway. per staff, bizarre gestures. lightly punching grossman. attended art group. loose, racing thoughts, RIS. says he is eating and sleeping well. mostly calm and cooperative. Mental Status Exam Mental Status Exam Narrative: Pt is alert and oriented; behavior is cooperative, disorganized, non-agitated; dressed in hospital carlin, adequate hygiene; affect variable, hyper-intense, non-labile; eye contact intense; Speech incr rate, nml loudness. nml prosody, decr latency; thought process disorganized; delusional thinking present; no SI/HI/AVH expressed. Patients insight and judgment are impaired. Diagnostics Vital Signs (24Hr): Vital Signs - 24 hr 12/10/21 23:22 12/11/21 08:45 Temperature 97.2 F 96.9 F Pulse Rate 75 92 Respiratory Rate 18 Blood Pressure 129/67 140/93 H Pulse Oximetry 98 96 Oxygen Delivery Method Room Air Room Air BMI result Body Mass Index 29.8 Labs Results: 12/01/21 14:30 12/03/21 08:33 Medications Medications Current Medications Acetaminophen (Acetaminophen 325 Mg Tablet) 650 mg PO Q6H PRN PRN Reason: Headache/Pain Mild Scale (1-3) Last Admin: 12/11/21 15:13 Dose: 650 mg Al Hydroxide/Mg Hydroxide (Magnesium Hydrox/Alum Hydrox 30 Ml Oral.Susp) 30 ml PO Q6H PRN PRN Reason: Heartburn/Nausea Last Admin: 12/10/21 19:22 Dose: 30 ml Albuterol Sulfate (Albuterol Sulfate 90 Mcg 8 Gm Inhaler) 2 puff INHALE Q4H PRN PRN Reason: shortness of breath or wheezing Last Admin: 12/11/21 15:11 Dose: 2 puff Artificial Tears (Artificial Tears 15 Ml Drops) 2 drop EYE-BOTH Q4H PRN PRN Reason: Dry Eyes Last Admin: 12/11/21 15:11 Dose: 2 drop Ascorbic Acid (Ascorbic Acid 250 Mg Tablet) 250 mg PO DAILY [facility] Last Admin: 12/11/21 08:48 Dose: 250 mg Bisacodyl (Bisacodyl 10 Mg Supp.Rect) 10 mg [place] BEDTIME PRN PRN Reason: Constipation Last Admin: 12/06/21 21:14 Dose: 10 mg Carbamazepine (Carbamazepine Er 200 Mg Tab.Er.12h) 600 mg PO BID [facility] Last Admin: 12/11/21 08:47 Dose: 600 mg Clonazepam (Clonazepam 1 Mg Tablet) 1 mg PO BID@0900,1500 [facility] Last Admin: 12/11/21 15:12 Dose: 1 mg Famotidine (Famotidine 20 Mg Tablet) 20 mg PO BID [facility] Last Admin: 12/11/21 08:49 Dose: 20 mg Fluticasone/Vilanterol (Fluticasone/Vilanterol 100/25 Blst.W.Dev) 1 puff INHALE DAILY [facility] Last Admin: 12/11/21 08:52 Dose: 1 puff Hydroxyzine HCl (Hydroxyzine Hcl 50 Mg Tablet) 50 mg PO Q6H PRN PRN Reason: Anxiety Last Admin: 12/11/21 15:13 Dose: 50 mg Lidocaine/Diphenhydr/Alum/Mg/Simeth (Mag&Al/Sim/Diphenhyd/Lidocaine 10 Ml Oral.Susp) 10 ml PO Q4H PRN; Protocol PRN Reason: oral mucous membrane ulcer jeremiah Last Admin: 12/10/21 16:10 Dose: 10 ml [place] Carbonate ([place] Carbonate Er 450 Mg Tablet.Er) 450 mg PO BID [facility] Last Admin: 12/11/21 08:49 Dose: 450 mg Magnesium Hydroxide (Milk Of Magnesia 30 Ml Oral.Susp) 30 ml PO DAILY PRN PRN Reason: Constipation Last Admin: 12/06/21 14:56 Dose: 30 ml Nicotine Polacrilex (Nicotine Polacrilex Lozenge 4 Mg Lozenge) 4 mg BUCCAL Q1H PRN PRN Reason: Nicotine Cravings Olanzapine (Olanzapine 5 Mg Tablet) 5 mg PO Q4H PRN PRN Reason: ginny/psychosis Last Admin: 12/11/21 02:49 Dose: 5 mg Perphenazine (Perphenazine 8 Mg Tablet) 16 mg PO TID [facility] Last Admin: 12/11/21 15:12 Dose: 16 mg Psyllium Hydrophilic Mucilloid (Psyllium Seed 3.4 Gm Powd.Pack) 3.4 gm PO BID [facility] Last Admin: 12/11/21 08:55 Dose: Not Given Quetiapine Fumarate (Quetiapine Fumarate 200 Mg Tablet) 200 mg PO BID@0900,1400 [facility] Last Admin: 12/11/21 13:35 Dose: 200 mg Quetiapine Fumarate (Quetiapine Fumarate 400 Mg Tablet) 400 mg PO BEDTIME [facility] Last Admin: 12/10/21 23:12 Dose: 400 mg Simethicone (Simethicone 80 Mg Tab.Chew) 80 mg PO QIDWMHS PRN PRN Reason: flatulence Last Admin: 12/10/21 20:53 Dose: 80 mg Tamsulosin HCl (Tamsulosin Hcl 0.4 Mg Capsule) 0.4 mg PO BEDTIME [facility] Last Admin: 12/10/21 23:14 Dose: 0.4 mg Trazodone HCl (Trazodone Hcl 50 Mg Tablet) 150 mg PO BEDTIME [facility] Last Admin: 12/10/21 23:13 Dose: 150 mg Trazodone HCl (Trazodone Hcl 50 Mg Tablet) 50 mg PO BEDTIME PRN PRN Reason: Insomnia Last Admin: 12/11/21 02:49 Dose: 50 mg Vitamin E (Vitamin E (Dl,Tocopheryl Acet) 180 Mg (400 Unit) Capsule) 180 mg PO BID [facility] Last Admin: 12/11/21 08:47 Dose: 180 mg Allergies Allergies Allergy/AdvReac Type Severity Reaction Status Date / Time divalproex sodium Allergy Severe PANCREATITI Verified 11/24/21 14:34 [From DEPAKOTE] S haloperidol [From Haldol] Allergy Intermediate DYSTONIC Verified 11/24/21 14:34 REACTION Assessment & Plan Assessment & Plan (1) Schizoaffective disorder: Status: Acute Code(s): F25.9 - Schizoaffective disorder, unspecified Assessment and Plan: continues really quite manic and disorganized, inc clonazepam and add prn of olanzapine for psychosis already on max seroquel Plan 12/03: continue home meds for now. CV rejected as pt unable to appreciate the circumstances of his admission. will need commitment and benedicto's order. T/C restarting clozaril and lithium, on which pt did well for many years, reportedly. tegretol increased from 400 BID to 600 BID at admission. 12/04: klonopin 0.5/0.5/1 reinstated 12/04 (outpt provider had started it 11/25 at 1 mg TID). magic mouthwash started for oral ulcers. 12/05: slept well last night, still pressured and disorganized. continue current mgmt. 12/08: 12b up, applied for commitment and meds. making sexually inappropriate comments/suggestions to staff, threatening violence and toward male peer. 12/09: same presentation as yesterday. started lithium 450 mg BID today. 12/10: no change in presentation, compliant with lithium. 12/11: DC prazosin to see if B/L pedal edema decreases. DC pravachol as pt is refusing it. order lac-hydrin for plantar fissure. otherwise continue previous mgmt. perhaps slight decrease in pressure and disorganization. I spent ___35___ minutes with the patient and/or on the patient floor today, greater than?50% of which was spent counseling/coordinating care. Reason for contiued inpatient stay Substantial Risk for: harm to self, harm to others, inability to function and med/psych decompensation
[2021-12-11] MEDS: Nicotine Polacrilex Lozenge 4 MG LOZENGE BUCCAL ×3 (19:23→23:49)
[2021-12-11] MEDS: Ammonium Lactate 12 % Lotion 226 GM BOTTLE 1 APPL TOPICAL ×2 (19:23→23:46)
[2021-12-11 23:47] VITALS: BP 123/79; PULSE 82; RESP 18; TEMP 36.4; O2SAT 96
[2021-12-11] MEDS: Simethicone 80 MG TAB.CHEW PO (23:47)
[2021-12-11] MEDS: Tamsulosin HCL 0.4 MG CAPSULE PO (23:48)
[2021-12-11] MEDS: traZODone HCL 50 MG TABLET 150 MG PO (23:51)
[2021-12-11] MEDS: QUEtiapine Fumarate 400 MG TABLET PO (23:51)
[2021-12-12] MEDS: traZODone HCL 50 MG TABLET PO (01:41)
[2021-12-12] MEDS: Nicotine Polacrilex Lozenge 4 MG LOZENGE BUCCAL ×2 (05:28→10:24)
[2021-12-12 09:00] VITALS: BP 149/90; PULSE 92; RESP 16; TEMP 36.4; O2SAT 99
[2021-12-12] MEDS: Perphenazine 8 MG TABLET 16 MG PO ×3 (10:06→22:43)
[2021-12-12] MEDS: Fluticasone/Vilanterol 100/25 BLST.W.DEV 1 PUFF INHALE (10:06)
[2021-12-12] MEDS: Ascorbic Acid 250 MG TABLET PO (10:07)
[2021-12-12] MEDS: QUEtiapine Fumarate 200 MG TABLET PO ×2 (10:07→14:00)
[2021-12-12] MEDS: Vitamin E (Dl,Tocopheryl Acet) 180 MG (400 UNIT) CAPSULE PO ×2 (10:07→22:43)
[2021-12-12] MEDS: Famotidine 20 MG TABLET PO ×2 (10:07→22:43)
[2021-12-12] MEDS: Lithium Carbonate ER 450 MG TABLET.ER PO ×2 (10:07→22:43)
[2021-12-12] MEDS: clonazePAM 1 MG TABLET PO (10:08)
[2021-12-12] MEDS: carBAMazepine ER 200 MG TAB.ER.12H 600 MG PO ×2 (10:08→22:42)
[2021-12-12] MEDS: Acetaminophen 325 MG TABLET 650 MG PO (10:23)
[2021-12-12] MEDS: Artificial Tears 15 ML DROPS 2 DROP EYE-BOTH ×2 (10:24→23:00)
[2021-12-12] MEDS: Nicotine Polacrilex 2 MG GUM BUCCAL (12:08)
--- NOTE | 2021-12-12 12:31 | HO.PSYCHPN ---
Subjective Subjective Date of Service: 12/12/21 Reason For Visit: psychosis Interim History: same presentation as yesterday, a bit better ability to get his meaning across. yet remains very pressured and disorganized. no GI complaints. per staff, denying psych Sx. less inappropriate. slept 0100 - 0530. Mental Status Exam Mental Status Exam Narrative: Pt is alert and oriented; behavior is cooperative, disorganized, non-agitated; dressed in hospital carlin, adequate hygiene; affect variable, hyper-intense, min-labile; eye contact intense; Speech incr rate, nml loudness. nml prosody, decr latency; thought process disorganized; delusional thinking present; no SI/HI/AVH expressed. Patients insight and judgment are impaired. Diagnostics Vital Signs (24Hr): Vital Signs - 24 hr 12/11/21 23:47 Temperature 97.5 F Pulse Rate 82 Respiratory Rate 18 Blood Pressure 123/79 Pulse Oximetry 96 Oxygen Delivery Method Room Air BMI result Body Mass Index 29.8 Labs Results: 12/01/21 14:30 12/03/21 08:33 Medications Medications Current Medications Acetaminophen (Acetaminophen 325 Mg Tablet) 650 mg PO Q6H PRN PRN Reason: Headache/Pain Mild Scale (1-3) Last Admin: 12/12/21 10:23 Dose: 650 mg Al Hydroxide/Mg Hydroxide (Magnesium Hydrox/Alum Hydrox 30 Ml Oral.Susp) 30 ml PO Q6H PRN PRN Reason: Heartburn/Nausea Last Admin: 12/10/21 19:22 Dose: 30 ml Albuterol Sulfate (Albuterol Sulfate 90 Mcg 8 Gm Inhaler) 2 puff INHALE Q4H PRN PRN Reason: shortness of breath or wheezing Last Admin: 12/11/21 23:53 Dose: 2 puff Artificial Tears (Artificial Tears 15 Ml Drops) 2 drop EYE-BOTH Q4H PRN PRN Reason: Dry Eyes Last Admin: 12/12/21 10:24 Dose: 2 drop Ascorbic Acid (Ascorbic Acid 250 Mg Tablet) 250 mg PO DAILY DAVY Last Admin: 12/12/21 10:07 Dose: 250 mg Bisacodyl (Bisacodyl 10 Mg Supp.Rect) 10 mg [place] BEDTIME PRN PRN Reason: Constipation Last Admin: 12/06/21 21:14 Dose: 10 mg Carbamazepine (Carbamazepine Er 200 Mg Tab.Er.12h) 600 mg PO BID [facility] Last Admin: 12/12/21 10:08 Dose: 600 mg Clonazepam (Clonazepam 1 Mg Tablet) 1 mg PO BID@0900,1500 [facility] Last Admin: 12/12/21 10:08 Dose: 1 mg Famotidine (Famotidine 20 Mg Tablet) 20 mg PO BID [facility] Last Admin: 12/12/21 10:07 Dose: 20 mg Fluticasone/Vilanterol (Fluticasone/Vilanterol 100/25 Blst.W.Dev) 1 puff INHALE DAILY [facility] Last Admin: 12/12/21 10:06 Dose: 1 puff Hydroxyzine HCl (Hydroxyzine Hcl 50 Mg Tablet) 50 mg PO Q6H PRN PRN Reason: Anxiety Last Admin: 12/11/21 23:49 Dose: 50 mg Lactic Acid (Ammonium Lactate 12 % Lotion 226 Gm Bottle) 1 appl TOPICAL BID [facility]; Protocol Last Admin: 12/11/21 23:46 Dose: 1 appl Lidocaine/Diphenhydr/Alum/Mg/Simeth (Mag&Al/Sim/Diphenhyd/Lidocaine 10 Ml Oral.Susp) 10 ml PO Q4H PRN; Protocol PRN Reason: oral mucous membrane ulcer jeremiah Last Admin: 12/10/21 16:10 Dose: 10 ml [place] Carbonate ([place] Carbonate Er 450 Mg Tablet.Er) 450 mg PO BID [facility] Last Admin: 12/12/21 10:07 Dose: 450 mg Magnesium Hydroxide (Milk Of Magnesia 30 Ml Oral.Susp) 30 ml PO DAILY PRN PRN Reason: Constipation Last Admin: 12/06/21 14:56 Dose: 30 ml Nicotine Polacrilex (Nicotine Polacrilex 2 Mg Gum) 4 mg [place] Q1H PRN PRN Reason: Nicotine Cravings Olanzapine (Olanzapine 5 Mg Tablet) 5 mg PO Q4H PRN PRN Reason: ginny/psychosis Last Admin: 12/11/21 23:56 Dose: 5 mg Perphenazine (Perphenazine 8 Mg Tablet) 16 mg PO TID [facility] Last Admin: 12/12/21 10:06 Dose: 16 mg Psyllium Hydrophilic Mucilloid (Psyllium Seed 3.4 Gm Powd.Pack) 3.4 gm PO BID [facility] Last Admin: 12/12/21 10:14 Dose: Not Given Quetiapine Fumarate (Quetiapine Fumarate 200 Mg Tablet) 200 mg PO BID@0900,1400 [facility] Last Admin: 12/12/21 10:07 Dose: 200 mg Quetiapine Fumarate (Quetiapine Fumarate 400 Mg Tablet) 400 mg PO BEDTIME [facility] Last Admin: 12/11/21 23:51 Dose: 400 mg Simethicone (Simethicone 80 Mg Tab.Chew) 80 mg PO QIDWMHS PRN PRN Reason: flatulence Last Admin: 12/11/21 23:47 Dose: 80 mg Tamsulosin HCl (Tamsulosin Hcl 0.4 Mg Capsule) 0.4 mg PO BEDTIME [facility] Last Admin: 12/11/21 23:48 Dose: 0.4 mg Trazodone HCl (Trazodone Hcl 50 Mg Tablet) 150 mg PO BEDTIME [facility] Last Admin: 12/11/21 23:51 Dose: 150 mg Trazodone HCl (Trazodone Hcl 50 Mg Tablet) 50 mg PO BEDTIME PRN PRN Reason: Insomnia Last Admin: 12/12/21 01:41 Dose: 50 mg Vitamin E (Vitamin E (Dl,Tocopheryl Acet) 180 Mg (400 Unit) Capsule) 180 mg PO BID [facility] Last Admin: 12/12/21 10:07 Dose: 180 mg Allergies Allergies Allergy/AdvReac Type Severity Reaction Status Date / Time divalproex sodium Allergy Severe PANCREATITI Verified 11/24/21 14:34 [From DEPAKOTE] S haloperidol [From Haldol] Allergy Intermediate DYSTONIC Verified 11/24/21 14:34 REACTION Assessment & Plan Assessment & Plan (1) Schizoaffective disorder: Status: Acute Code(s): F25.9 - Schizoaffective disorder, unspecified Assessment and Plan: continues really quite manic and disorganized, inc clonazepam and add prn of olanzapine for psychosis already on max seroquel Plan 12/03: continue home meds for now. CV rejected as pt unable to appreciate the circumstances of his admission. will need commitment and benedicto's order. T/C restarting clozaril and lithium, on which pt did well for many years, reportedly. tegretol increased from 400 BID to 600 BID at admission. 12/04: klonopin 0.5/0.5/1 reinstated 12/04 (outpt provider had started it 9/20 at 1 mg TID). magic mouthwash started for oral ulcers. 12/05: slept well last night, still pressured and disorganized. continue current mgmt. 12/08: 12b up, applied for commitment and meds. making sexually inappropriate comments/suggestions to staff, threatening violence and toward male peer. 12/09: same presentation as yesterday. started lithium 450 mg BID today. 12/10: no change in presentation, compliant with lithium. 12/11: DC prazosin to see if B/L pedal edema decreases. DC pravachol as pt is refusing it. order lac-hydrin for plantar fissure. otherwise continue previous mgmt. perhaps slight decrease in pressure and disorganization. 12/12: pedal edema no worse, perhaps better. no GI side effects from lithium. fissure looks improved with cream. check lithium, tegretol, associated labs on wednesday (ordered). titrate lithium as indicated. I spent ___25___ minutes with the patient and/or on the patient floor today, greater than?50% of which was spent counseling/coordinating care. Reason for contiued inpatient stay Substantial Risk for: harm to self, harm to others, inability to function and rapid decompensation
[2021-12-12] MEDS: Ammonium Lactate 12 % Lotion 226 GM BOTTLE 1 APPL TOPICAL (13:44)
[2021-12-12] MEDS: Nicotine Polacrilex 2 MG GUM 4 MG BUCCAL ×5 (14:11→23:00)
[2021-12-12] MEDS: Mag&Al/Sim/Diphenhyd/Lidocaine 10 ML ORAL.SUSP PO (18:49)
[2021-12-12 21:02] VITALS: BP 131/78; PULSE 76; RESP 16; TEMP 36.6; O2SAT 100
[2021-12-12] MEDS: traZODone HCL 50 MG TABLET 150 MG PO (22:42)
[2021-12-12] MEDS: Tamsulosin HCL 0.4 MG CAPSULE PO (22:43)
[2021-12-12] MEDS: QUEtiapine Fumarate 400 MG TABLET PO (22:43)
[2021-12-12] MEDS: Albuterol Sulfate 90 MCG 8 GM INHALER 2 PUFF INHALE (23:00)
[2021-12-12] MEDS: OLANZapine 5 MG TABLET PO (23:00)
[2021-12-13] MEDS: hydrOXYzine HCL 50 MG TABLET PO ×2 (00:53→09:15)
[2021-12-13] MEDS: traZODone HCL 50 MG TABLET PO ×2 (00:53→02:12)
[2021-12-13] MEDS: Nicotine Polacrilex 2 MG GUM 4 MG BUCCAL ×10 (01:28→23:40)
[2021-12-13 06:00] VITALS: BP 137/77; PULSE 66; RESP 20; TEMP 36.4; O2SAT 100
[2021-12-13] MEDS: Vitamin E (Dl,Tocopheryl Acet) 180 MG (400 UNIT) CAPSULE PO ×2 (08:50→22:37)
[2021-12-13] MEDS: Fluticasone/Vilanterol 100/25 BLST.W.DEV 1 PUFF INHALE (08:51)
[2021-12-13] MEDS: carBAMazepine ER 200 MG TAB.ER.12H 600 MG PO ×2 (08:51→22:35)
[2021-12-13] MEDS: QUEtiapine Fumarate 200 MG TABLET PO ×2 (08:51→15:20)
[2021-12-13] MEDS: Ascorbic Acid 250 MG TABLET PO (08:51)
[2021-12-13] MEDS: Lithium Carbonate ER 450 MG TABLET.ER PO ×2 (08:51→22:35)
[2021-12-13] MEDS: Perphenazine 8 MG TABLET 16 MG PO ×3 (08:51→22:35)
[2021-12-13] MEDS: Famotidine 20 MG TABLET PO ×2 (08:51→22:36)
[2021-12-13] MEDS: Artificial Tears 15 ML DROPS 2 DROP EYE-BOTH (08:54)
[2021-12-13] MEDS: Albuterol Sulfate 90 MCG 8 GM INHALER 2 PUFF INHALE (08:54)
[2021-12-13] MEDS: Acetaminophen 325 MG TABLET 650 MG PO ×2 (09:15→22:36)
--- NOTE | 2021-12-13 12:29 | HO.PSYCHPN ---
Subjective Subjective Date of Service: 12/13/21 Reason For Visit: psychosis Interim History: manic, bizarre, intrusive, somewhat threatening posturing, blaming underwriter solicitation director for something, but not clear what. Made threat about breaking writers neck. Said to underwriter solicitation director you broke my heart and made me hate you. Then stuck his tongue out and did a little dance. He said he has not gotten diarrhea yet from [place] but is expecting it to come soon. sister visited wondering if needing to change antipsychotic, doubting seroqeul is working Diagnostics Vital Signs (24Hr): Vital Signs - 24 hr 12/12/21 21:02 12/13/21 06:00 Temperature 97.9 F 97.6 F Pulse Rate 76 66 Respiratory Rate 16 20 Blood Pressure 131/78 137/77 Pulse Oximetry 100 100 Oxygen Delivery Method Room Air Room Air BMI result Body Mass Index 29.8 Labs Results: 12/01/21 14:30 12/03/21 08:33 Medications Medications Current Medications Acetaminophen (Acetaminophen 325 Mg Tablet) 650 mg PO Q6H PRN PRN Reason: Headache/Pain Mild Scale (1-3) Last Admin: 12/13/21 09:15 Dose: 650 mg Al Hydroxide/Mg Hydroxide (Magnesium Hydrox/Alum Hydrox 30 Ml Oral.Susp) 30 ml PO Q6H PRN PRN Reason: Heartburn/Nausea Last Admin: 12/10/21 19:22 Dose: 30 ml Albuterol Sulfate (Albuterol Sulfate 90 Mcg 8 Gm Inhaler) 2 puff INHALE Q4H PRN PRN Reason: shortness of breath or wheezing Last Admin: 12/13/21 08:54 Dose: 2 puff Artificial Tears (Artificial Tears 15 Ml Drops) 2 drop EYE-BOTH Q4H PRN PRN Reason: Dry Eyes Last Admin: 12/13/21 08:54 Dose: 2 drop Ascorbic Acid (Ascorbic Acid 250 Mg Tablet) 250 mg PO DAILY [facility] Last Admin: 12/13/21 08:51 Dose: 250 mg Bisacodyl (Bisacodyl 10 Mg Supp.Rect) 10 mg MS BEDTIME PRN PRN Reason: Constipation Last Admin: 12/06/21 21:14 Dose: 10 mg Carbamazepine (Carbamazepine Er 200 Mg Tab.Er.12h) 600 mg PO BID [facility] Last Admin: 10/08/22 08:51 Dose: 600 mg Famotidine (Famotidine 20 Mg Tablet) 20 mg PO BID [facility] Last Admin: 12/13/21 08:51 Dose: 20 mg Fluticasone/Vilanterol (Fluticasone/Vilanterol 100/25 Blst.W.Dev) 1 puff INHALE DAILY [facility] Last Admin: 12/13/21 08:51 Dose: 1 puff Hydroxyzine HCl (Hydroxyzine Hcl 50 Mg Tablet) 50 mg PO Q6H PRN PRN Reason: Anxiety Last Admin: 12/13/21 09:15 Dose: 50 mg Lactic Acid (Ammonium Lactate 12 % Lotion 226 Gm Bottle) 1 appl TOPICAL BID [facility]; Protocol Last Admin: 12/13/21 10:12 Dose: Not Given Lidocaine/Diphenhydr/Alum/Mg/Simeth (Mag&Al/Sim/Diphenhyd/Lidocaine 10 Ml Oral.Susp) 10 ml PO Q4H PRN; Protocol PRN Reason: oral mucous membrane ulcer jeremiah Last Admin: 12/12/21 18:49 Dose: 10 ml [place] Carbonate ([place] Carbonate Er 450 Mg Tablet.Er) 450 mg PO BID [facility] Last Admin: 12/13/21 08:51 Dose: 450 mg Magnesium Hydroxide (Milk Of Magnesia 30 Ml Oral.Susp) 30 ml PO DAILY PRN PRN Reason: Constipation Last Admin: 12/06/21 14:56 Dose: 30 ml Nicotine Polacrilex (Nicotine Polacrilex 2 Mg Gum) 4 mg BUCCAL Q1H PRN PRN Reason: Nicotine Cravings Last Admin: 12/13/21 10:13 Dose: 4 mg Olanzapine (Olanzapine 5 Mg Tablet) 5 mg PO Q4H PRN PRN Reason: ginny/psychosis Last Admin: 12/12/21 23:00 Dose: 5 mg Perphenazine (Perphenazine 8 Mg Tablet) 16 mg PO TID [facility] Last Admin: 12/13/21 08:51 Dose: 16 mg Psyllium Hydrophilic Mucilloid (Psyllium Seed 3.4 Gm Powd.Pack) 3.4 gm PO BID [facility] Last Admin: 12/13/21 10:12 Dose: Not Given Quetiapine Fumarate (Quetiapine Fumarate 200 Mg Tablet) 200 mg PO BID@0900,1400 [facility] Last Admin: 12/13/21 08:51 Dose: 200 mg Quetiapine Fumarate (Quetiapine Fumarate 400 Mg Tablet) 400 mg PO BEDTIME [facility] Last Admin: 12/12/21 22:43 Dose: 400 mg Simethicone (Simethicone 80 Mg Tab.Chew) 80 mg PO QIDWMHS PRN PRN Reason: flatulence Last Admin: 12/11/21 23:47 Dose: 80 mg Tamsulosin HCl (Tamsulosin Hcl 0.4 Mg Capsule) 0.4 mg PO BEDTIME [facility] Last Admin: 12/12/21 22:43 Dose: 0.4 mg Trazodone HCl (Trazodone Hcl 50 Mg Tablet) 150 mg PO BEDTIME [facility] Last Admin: 12/12/21 22:42 Dose: 150 mg Trazodone HCl (Trazodone Hcl 50 Mg Tablet) 50 mg PO BEDTIME PRN PRN Reason: Insomnia Last Admin: 12/13/21 02:12 Dose: 50 mg Vitamin E (Vitamin E (Dl,Tocopheryl Acet) 180 Mg (400 Unit) Capsule) 180 mg PO BID [facility] Last Admin: 12/13/21 08:50 Dose: 180 mg Allergies Allergies Allergy/AdvReac Type Severity Reaction Status Date / Time divalproex sodium Allergy Severe PANCREATITI Verified 11/24/21 14:34 [From DEPAKOTE] S haloperidol [From Haldol] Allergy Intermediate DYSTONIC Verified 11/24/21 14:34 REACTION Assessment & Plan Assessment & Plan (1) Schizoaffective disorder: Status: Acute Code(s): F25.9 - Schizoaffective disorder, unspecified Assessment and Plan: continues really quite manic and disorganized, inc clonazepam and add prn of olanzapine for psychosis already on max seroquel Plan 12/03: continue home meds for now. CV rejected as pt unable to appreciate the circumstances of his admission. will need commitment and benedicto's order. T/C restarting clozaril and lithium, on which pt did well for many years, reportedly. tegretol increased from 400 BID to 600 BID at admission. 12/04: klonopin 0.5/0.5/1 reinstated 12/04 (outpt provider had started it 11/25 at 1 mg TID). magic mouthwash started for oral ulcers. 12/05: slept well last night, still pressured and disorganized. continue current mgmt. 12/08: 12b up, applied for commitment and meds. making sexually inappropriate comments/suggestions to staff, threatening violence and toward male peer. 12/09: same presentation as yesterday. started lithium 450 mg BID today. 12/10: no change in presentation, compliant with lithium. 12/11: DC prazosin to see if B/L pedal edema decreases. DC pravachol as pt is refusing it. order lac-hydrin for plantar fissure. otherwise continue previous mgmt. perhaps slight decrease in pressure and disorganization. 12/12: pedal edema no worse, perhaps better. no GI side effects from lithium. fissure looks improved with cream. check lithium, tegretol, associated labs on wednesday (ordered). titrate lithium as indicated. 12/13 pt manic, disorganized, intrusive, blaming, threatening (told underwriter solicitation director someone would come over and break his neck) -consider switching to Zyprexa from seroquel I spent minutes with the patient and/or on the patient floor today, greater than?50% of which was spent counseling/coordinating care. Reason for contiued inpatient stay Substantial Risk for: inability to function
[2021-12-13 18:00] VITALS: BP 139/80; PULSE 78; RESP 16; TEMP 36.6; O2SAT 98
[2021-12-13] MEDS: traZODone HCL 50 MG TABLET 150 MG PO (22:35)
[2021-12-13] MEDS: Tamsulosin HCL 0.4 MG CAPSULE PO (22:36)
[2021-12-13] MEDS: QUEtiapine Fumarate 400 MG TABLET PO (22:36)
[2021-12-14] MEDS: traZODone HCL 50 MG TABLET PO ×2 (01:05→22:29)
[2021-12-14] MEDS: Albuterol Sulfate 90 MCG 8 GM INHALER 2 PUFF INHALE ×2 (01:06→08:53)
[2021-12-14] MEDS: hydrOXYzine HCL 50 MG TABLET PO ×3 (01:06→22:30)
[2021-12-14] MEDS: Artificial Tears 15 ML DROPS 2 DROP EYE-BOTH ×3 (01:06→22:48)
[2021-12-14] MEDS: Ammonium Lactate 12 % Lotion 226 GM BOTTLE 1 APPL TOPICAL ×3 (01:07→22:49)
[2021-12-14] MEDS: Nicotine Polacrilex 2 MG GUM 4 MG BUCCAL ×12 (04:16→23:54)
[2021-12-14 08:35] VITALS: BP 127/80; PULSE 88; RESP 20; TEMP 36.2; O2SAT 95
[2021-12-14 08:39] LABS: MANUAL DIFF FLAG NO
[2021-12-14] MEDS: Perphenazine 8 MG TABLET 16 MG PO ×3 (08:46→22:30)
[2021-12-14] MEDS: Famotidine 20 MG TABLET PO ×2 (08:46→22:31)
[2021-12-14] MEDS: Vitamin E (Dl,Tocopheryl Acet) 180 MG (400 UNIT) CAPSULE PO ×2 (08:46→22:30)
[2021-12-14] MEDS: carBAMazepine ER 200 MG TAB.ER.12H 600 MG PO ×2 (08:46→22:29)
[2021-12-14] MEDS: Ascorbic Acid 250 MG TABLET PO (08:46)
[2021-12-14 08:47] LABS: Basophils Percent Auto 0.4 % (0-2); Eosinophils Absolute Auto 0.1 X10*3/uL (0.0-0.4); Eosinophils Percent Auto 1.2 % (0-4); Hematocrit 42.9 % (42.0-52.0); Imm Gran Abs Auto 0.04 X10*3/uL (0.00-0.03); Imm Gran Pct Auto 0.5 % (0.0-0.4); Lymphocytes Absolute Auto 1.2 X10*3/uL (1.2-4.9); Lymphocytes Percent Auto 16.9 % (20-40); Mean Corpuscular HGB Conc 32.6 g/dl (31.0-36.0); Mean Corpuscular Hemoglobin 30.7 pg (27.0-33.0); Mean Corpuscular Volume 94.1 fL (80.0-98.0); Mean Platelet Volume 10.2 fL (9.4-12.4); Monocytes Absolute Auto 0.5 X10*3/uL (0.1-1.2); Monocytes Percent Auto 7.2 % (2-11); Neutrophils Absolute Auto 5.4 x10*3/uL (2.0-8.3); Neutrophils Percent Auto 73.8 % (45-73); Platelet Count 222 X10*3/uL (160-400); Red Blood Count 4.56 X10*6/uL (4.60-5.80); Red Cell Distribution Width 13.1 % (11.0-16.0); White Blood Count 7.4 X10*3/uL (4.8-10.8)
[2021-12-14] MEDS: Lithium Carbonate ER 450 MG TABLET.ER PO ×2 (08:47→22:32)
[2021-12-14] MEDS: Fluticasone/Vilanterol 100/25 BLST.W.DEV 1 PUFF INHALE (08:53)
[2021-12-14 08:55] LABS: Lithium 0.54 mmol/L (0.60-1.20)
[2021-12-14 09:00] LABS: Alanine Aminotransferase 32 U/L (0-40); Albumin Level 4.4 g/dL (3.5-5.0); Alkaline Phosphatase 77 U/L (39-117); Anion Gap 13 (12-20); Aspartate Amino Transferase 22 U/L (5-37); Bilirubin Direct 0.2 mg/dL (0.0-0.5); Bilirubin Total 0.4 mg/dL (0.0-1.0); Blood Urea Nitrogen 18 mg/dL (9-16); Calcium 9.4 mg/dL (8.4-10.2); Carbon Dioxide 26 mmol/L (22-29); Chloride 105 mmol/L (96-108); Creatinine Clr Calc Pharmacy 135.1; Estimated Glomerular Filt Rate > 60; Glucose Random 105 mg/dL (60-115); Potassium 4.3 mmol/L (3.3-5.1); Sodium 140 mmol/L (135-145); Total Protein 6.8 g/dL (6.5-8.0)
[2021-12-14 10:01] LABS: Carbamazepine Tegretol 7.7 mcg/mL (5.0-12.0)
[2021-12-14] MEDS: Acetaminophen 325 MG TABLET 650 MG PO ×2 (10:44→22:32)
[2021-12-14] MEDS: QUEtiapine Fumarate 200 MG TABLET PO ×2 (10:45→14:10)
--- NOTE | 2021-12-14 15:08 | HO.PSYCHPN ---
Subjective Subjective Date of Service: 12/14/21 Reason For Visit: psychosis Interim History: remains manic, intrusive, disorganized and grandiose; says he is going to take away writers power referencing that he and his family are 2nd to the throne. Reviewed labs and lithium level with patient who said he is very anxious that he will eventually get diarrhea with lithium. He does not want increased. He is also upset that prazosin was not continued and said he has been having nightmares. Patient reports he is constipated and wants an enema; however he has been refusing all p.o. medication for constipation and continues to refuse it, saying he wants an enema. As patient has been sexually inappropriate with staff over this admission, will hold off an enema for now and continue to encourage p.o. medication. Mental Status Exam Mental Status Exam Narrative: Pt is alert and oriented; behavior is marginally cooperative, intrusive, argumentative and hyper; patient is not in distress; dressed in hospital gown, adequate hygiene; mood is described as ok and affect constricted; eye contact appropriate but can also be intense; Speech moderately pressured; normal volume, prosody; psychomotor agitation present; thought process is goal oriented on some topics but becomes tangential; Thought content is on various past events and on treatment; Paranoid and delusional and grandiose thinking present; no SI/HI. Denies AVH, though internal preoccupation; Patients insight and judgment are impaired. Diagnostics Vital Signs (24Hr): Vital Signs - 24 hr 12/13/21 18:00 12/14/21 08:35 Temperature 97.9 F 97.2 F Pulse Rate 78 88 Respiratory Rate 16 20 Blood Pressure 139/80 127/80 Pulse Oximetry 98 95 Oxygen Delivery Method Room Air Room Air BMI result Body Mass Index 29.8 Labs Results: 12/14/21 07:58 12/14/21 07:58 Labs: Laboratory Results - last 48 hr 12/14/21 12/14/21 12/14/21 07:58 07:58 07:58 WBC 7.4 RBC 4.56 L Hgb 14.0 Hct 42.9 MCV 94.1 MCH 30.7 MCHC 32.6 RDW 13.1 Plt Count 222 MPV 10.2 Immature Gran % (Auto) 0.5 H Neut % (Auto) 73.8 H Lymph % (Auto) 16.9 L [place] % (Auto) 7.2 Eos % (Auto) 1.2 Baso % (Auto) 0.4 Lymph # (Auto) 1.2 [place] # (Auto) 0.5 Eos # (Auto) 0.1 Baso # (Auto) 0.0 Abs Immat Gran (auto) 0.04 H Absolute Neuts (auto) 5.4 Absolute Nucleated RBC 0.000 Nucleated RBC % (auto) 0.0 Sodium 140 Potassium 4.3 Chloride 105 Carbon Dioxide 26 Anion Gap 13 BUN 18 H Creatinine 0.86 Estim Creat Clear Calc 135.1 Estimated GFR > 60 Random Glucose 105 Calcium 9.4 Total Bilirubin 0.4 Direct Bilirubin 0.2 AST 22 ALT 32 Alkaline Phosphatase 77 Total Protein 6.8 Albumin 4.4 Carbamazepine 7.7 [place] 0.54 L Medications Medications Current Medications Acetaminophen (Acetaminophen 325 Mg Tablet) 650 mg PO Q6H PRN PRN Reason: Headache/Pain Mild Scale (1-3) Last Admin: 12/14/21 10:44 Dose: 650 mg Al Hydroxide/Mg Hydroxide (Magnesium Hydrox/Alum Hydrox 30 Ml Oral.Susp) 30 ml PO Q6H PRN PRN Reason: Heartburn/Nausea Last Admin: 12/10/21 19:22 Dose: 30 ml Albuterol Sulfate (Albuterol Sulfate 90 Mcg 8 Gm Inhaler) 2 puff INHALE Q4H PRN PRN Reason: shortness of breath or wheezing Last Admin: 12/14/21 08:53 Dose: 2 puff Artificial Tears (Artificial Tears 15 Ml Drops) 2 drop EYE-BOTH Q4H PRN PRN Reason: Dry Eyes Last Admin: 12/14/21 08:53 Dose: 2 drop Ascorbic Acid (Ascorbic Acid 250 Mg Tablet) 250 mg PO DAILY [facility] Last Admin: 12/14/21 08:46 Dose: 250 mg Bisacodyl (Bisacodyl 10 Mg Supp.Rect) 10 mg UT BEDTIME PRN PRN Reason: Constipation Last Admin: 12/06/21 21:14 Dose: 10 mg Carbamazepine (Carbamazepine Er 200 Mg Tab.Er.12h) 600 mg PO BID [facility] Last Admin: 12/14/21 08:46 Dose: 600 mg Famotidine (Famotidine 20 Mg Tablet) 20 mg PO BID [facility] Last Admin: 12/14/21 08:46 Dose: 20 mg Fluticasone/Vilanterol (Fluticasone/Vilanterol 100/25 Blst.W.Dev) 1 puff INHALE DAILY [facility] Last Admin: 12/14/21 08:53 Dose: 1 puff Hydroxyzine HCl (Hydroxyzine Hcl 50 Mg Tablet) 50 mg PO Q6H PRN PRN Reason: Anxiety Last Admin: 12/14/21 10:44 Dose: 50 mg Lactic Acid (Ammonium Lactate 12 % Lotion 226 Gm Bottle) 1 appl TOPICAL BID [facility]; Protocol Last Admin: 12/14/21 10:47 Dose: 1 appl Lidocaine/Diphenhydr/Alum/Mg/Simeth (Mag&Al/Sim/Diphenhyd/Lidocaine 10 Ml Oral.Susp) 10 ml PO Q4H PRN; Protocol PRN Reason: oral mucous membrane ulcer jeremiah Last Admin: 12/12/21 18:49 Dose: 10 ml [place] Carbonate ([place] Carbonate Er 450 Mg Tablet.Er) 450 mg PO BID [facility] Last Admin: 12/14/21 08:47 Dose: 450 mg Magnesium Hydroxide (Milk Of Magnesia 30 Ml Oral.Susp) 30 ml PO DAILY PRN PRN Reason: Constipation Last Admin: 12/06/21 14:56 Dose: 30 ml Nicotine Polacrilex (Nicotine Polacrilex 2 Mg Gum) 4 mg BUCCAL Q1H PRN PRN Reason: Nicotine Cravings Last Admin: 12/14/21 14:10 Dose: 4 mg Olanzapine (Olanzapine 5 Mg Tablet) 5 mg PO Q4H PRN PRN Reason: ginny/psychosis Last Admin: 12/12/21 23:00 Dose: 5 mg Perphenazine (Perphenazine 8 Mg Tablet) 16 mg PO TID [facility] Last Admin: 12/14/21 14:10 Dose: 16 mg Psyllium Hydrophilic Mucilloid (Psyllium Seed 3.4 Gm Powd.Pack) 3.4 gm PO BID [facility] Last Admin: 12/14/21 10:39 Dose: Not Given Quetiapine Fumarate (Quetiapine Fumarate 200 Mg Tablet) 200 mg PO BID@0900,1400 [facility] Last Admin: 12/14/21 14:10 Dose: 200 mg Quetiapine Fumarate (Quetiapine Fumarate 400 Mg Tablet) 400 mg PO BEDTIME [facility] Last Admin: 12/13/21 22:36 Dose: 400 mg Simethicone (Simethicone 80 Mg Tab.Chew) 80 mg PO QIDWMHS PRN PRN Reason: flatulence Last Admin: 12/11/21 23:47 Dose: 80 mg Tamsulosin HCl (Tamsulosin Hcl 0.4 Mg Capsule) 0.4 mg PO BEDTIME [facility] Last Admin: 12/13/21 22:36 Dose: 0.4 mg Trazodone HCl (Trazodone Hcl 50 Mg Tablet) 150 mg PO BEDTIME [facility] Last Admin: 12/13/21 22:35 Dose: 150 mg Trazodone HCl (Trazodone Hcl 50 Mg Tablet) 50 mg PO BEDTIME PRN PRN Reason: Insomnia Last Admin: 12/14/21 01:05 Dose: 50 mg Vitamin E (Vitamin E (Dl,Tocopheryl Acet) 180 Mg (400 Unit) Capsule) 180 mg PO BID [facility] Last Admin: 12/14/21 08:46 Dose: 180 mg Allergies Allergies Allergy/AdvReac Type Severity Reaction Status Date / Time divalproex sodium Allergy Severe PANCREATITI Verified 11/24/21 14:34 [From DEPAKOTE] S haloperidol [From Haldol] Allergy Intermediate DYSTONIC Verified 11/24/21 14:34 REACTION Assessment & Plan Assessment & Plan (1) Schizoaffective disorder: Status: Acute Code(s): F25.9 - Schizoaffective disorder, unspecified Assessment and Plan: continues really quite manic and disorganized, inc clonazepam and add prn of olanzapine for psychosis already on max seroquel Plan 12/03: continue home meds for now. CV rejected as pt unable to appreciate the circumstances of his admission. will need commitment and benedicto's order. T/C restarting clozaril and lithium, on which pt did well for many years, reportedly. tegretol increased from 400 BID to 600 BID at admission. 12/04: klonopin 0.5/0.5/1 reinstated 12/04 (outpt provider had started it 11/25 at 1 mg TID). magic mouthwash started for oral ulcers. 12/05: slept well last night, still pressured and disorganized. continue current mgmt. 12/08: 12b up, applied for commitment and meds. making sexually inappropriate comments/suggestions to staff, threatening violence and toward male peer. 12/09: same presentation as yesterday. started lithium 450 mg BID today. 12/10: no change in presentation, compliant with lithium. 12/11: DC prazosin to see if B/L pedal edema decreases. DC pravachol as pt is refusing it. order lac-hydrin for plantar fissure. otherwise continue previous mgmt. perhaps slight decrease in pressure and disorganization. 12/12: pedal edema no worse, perhaps better. no GI side effects from lithium. fissure looks improved with cream. check lithium, tegretol, associated labs on wednesday (ordered). titrate lithium as indicated. 12/13 pt manic, disorganized, intrusive, blaming, threatening (told abstract writer someone would come over and break his neck) -consider switching to Zyprexa from seroquel 12/14 her is manic, intrusive irritable, grandiose Felida level subtherapeutic; however patient is very anxious about this medication causing side effects and at this time abstract writer thinks it might be better to leave it is current dose since patient continues to take it and trying to increase it may very well cause him to refuse it altogether; he is also on Tegretol. Perhaps switching antipsychotics to Zyprexa is warranted. Patient says he has never taken Zyprexa before. Patient typically knows his medication history however usually when someone gets on clozapine it is because most other medications have not worked. Felida has just reached at steady state so will hold off making medication adjustments right now to see if there can be any further benefit observed from currently lithium dose and medication regimen. Patient reports constipation and wants an enema; however he has been consistently refusing all p.o. medications for constipation; since patient has been intermittently sexually inappropriate with staff, abstract writer continues to encourage patient taking p.o. medications before ordering an enema I spent minutes with the patient and/or on the patient floor today, greater than?50% of which was spent counseling/coordinating care. Patient educated on: diagnosis, medication risk/benefits and medical condition Informed Consent: does not understand and further education needed Reason for contiued inpatient stay Substantial Risk for: inability to function
[2021-12-14] MEDS: Milk of Magnesia 30 ML ORAL.SUSP PO (16:16)
[2021-12-14 21:37] VITALS: BP 157/92; PULSE 84; RESP 18; TEMP 36.4; O2SAT 99
[2021-12-14] MEDS: traZODone HCL 50 MG TABLET 150 MG PO (22:29)
[2021-12-14] MEDS: Simethicone 80 MG TAB.CHEW PO (22:30)
[2021-12-14] MEDS: Tamsulosin HCL 0.4 MG CAPSULE PO (22:30)
[2021-12-14] MEDS: QUEtiapine Fumarate 400 MG TABLET PO (22:31)
[2021-12-14] MEDS: OLANZapine 5 MG TABLET PO (22:32)
[2021-12-14] MEDS: Mag&Al/Sim/Diphenhyd/Lidocaine 10 ML ORAL.SUSP PO (22:33)
--- NOTE | 2021-12-14 23:44 | PC.NURSE ---
BM-reports multiple lg BM's this evening
[2021-12-15] MEDS: Nicotine Polacrilex 2 MG GUM 4 MG BUCCAL ×9 (01:23→23:18)
--- NOTE | 2021-12-15 03:15 | PC.NURSE ---
mental status-pt presenting as verbally pressured and agitated. ''I'm going to hit that psychiatrist (Arabella) can you believe he wanted to give me clozaril?'' ''who the hell does he think he is'' ''they are all fucking wacks'' intrusive with peers causing others around him to become dysregulated. eye contact intense, does not allow for push back from staff due to being hyperverbal. ''I can destroy this place with my mind'' there appears to be an intensity/tenseness about his presentation.
[2021-12-15] MEDS: hydrOXYzine HCL 50 MG TABLET PO ×2 (03:58→23:27)
[2021-12-15] MEDS: Acetaminophen 325 MG TABLET 650 MG PO ×3 (03:59→23:14)
[2021-12-15 08:15] VITALS: BP 138/91; PULSE 76; RESP 16; TEMP 36.6; O2SAT 98
[2021-12-15] MEDS: Famotidine 20 MG TABLET PO ×2 (09:06→23:15)
[2021-12-15] MEDS: Perphenazine 8 MG TABLET 16 MG PO ×3 (09:06→23:13)
[2021-12-15] MEDS: Fluticasone/Vilanterol 100/25 BLST.W.DEV 1 PUFF INHALE (09:06)
[2021-12-15] MEDS: Ascorbic Acid 250 MG TABLET PO (09:07)
[2021-12-15] MEDS: Lithium Carbonate ER 450 MG TABLET.ER PO ×2 (09:07→23:12)
[2021-12-15] MEDS: Vitamin E (Dl,Tocopheryl Acet) 180 MG (400 UNIT) CAPSULE PO ×2 (09:07→23:12)
[2021-12-15] MEDS: carBAMazepine ER 200 MG TAB.ER.12H 600 MG PO ×2 (09:07→23:11)
[2021-12-15] MEDS: QUEtiapine Fumarate 200 MG TABLET PO ×2 (09:07→15:33)
[2021-12-15] MEDS: Artificial Tears 15 ML DROPS 2 DROP EYE-BOTH ×2 (09:13→23:17)
[2021-12-15] MEDS: Ammonium Lactate 12 % Lotion 226 GM BOTTLE 1 APPL TOPICAL ×2 (09:17→23:17)
--- NOTE | 2021-12-15 10:44 | PC.NURSE ---
ll nursing documentation in this chart from 12/15/2021 0800am through 10:30 am was completed by Clary Dobbs RN. I was loggied in in error as Mei Nichols RN.
[2021-12-15] MEDS: clonazePAM 1 MG TABLET PO ×3 (12:46→23:14)
--- NOTE | 2021-12-15 15:13 | P.PNPSI_ITS ---
Subjective Subjective Date of Service: 12/15/21 Reason For Visit: psychosis Interim History: Initially talking nonsense to journalists and other writers on approach. He then stopped and said that he did have a bowel movement yesterday and was grateful for the p.o. medication. Patient remains intrusive, disorganized speech and behavior. Still very anxious about lithium. Clonazepam had fallen off and was restarted Mental Status Exam Mental Status Exam Narrative: Pt is alert and oriented; behavior is marginally cooperative, intrusive, argumentative and hyper; patient is not in distress; dressed in hospital gown, adequate hygiene; mood is described as ok and affect constricted; eye cont act appropriate but can also be intense; Speech moderately pressured; normal volume, prosody; psychomotor agitation present; thought process is goal oriented on some topics but becomes tangential; Thought content is on various past events and on treatment; Paranoid and delusional and grandiose thinking present; no SI/HI. Denies AVH, though internal preoccupation; Patients insight and judgment are impaired. Diagnostics Vital Signs (24Hr): Vital Signs - 24 hr 12/14/21 21:37 12/15/21 08:15 Temperature 97.6 F 97.9 F Pulse Rate 84 76 Respiratory Rate 18 16 Blood Pressure 157/92 H 138/91 H Pulse Oximetry 99 98 Oxygen Delivery Method Room Air Room Air BMI result Body Mass Index 29.8 Labs Results: 12/14/21 07:58 12/14/21 07:58 Labs: Laboratory Results - last 48 hr 12/14/21 12/14/21 12/14/21 07:58 07:58 07:58 WBC 7.4 RBC 4.56 L Hgb 14.0 Hct 42.9 MCV 94.1 MCH 30.7 MCHC 32.6 RDW 13.1 Plt Count 222 MPV 10.2 Immature Gran % (Auto) 0.5 H Neut % (Auto) 73.8 H Lymph % (Auto) 16.9 L [place] % (Auto) 7.2 Eos % (Auto) 1.2 Baso % (Auto) 0.4 Lymph # (Auto) 1.2 [place] # (Auto) 0.5 Eos # (Auto) 0.1 Baso # (Auto) 0.0 Abs Immat Gran (auto) 0.04 H Absolute Neuts (auto) 5.4 Absolute Nucleated RBC 0.000 Nucleated RBC % (auto) 0.0 Sodium 140 Potassium 4.3 Chloride 105 Carbon Dioxide 26 Anion Gap 13 BUN 18 H Creatinine 0.86 Estim Creat Clear Calc 135.1 Estimated GFR > 60 Random Glucose 105 Calcium 9.4 Total Bilirubin 0.4 Direct Bilirubin 0.2 AST 22 ALT 32 Alkaline Phosphatase 77 Total Protein 6.8 Albumin 4.4 Carbamazepine 7.7 [place] 0.54 L Medications Medications Current Medications Acetaminophen (Acetaminophen 325 Mg Tablet) 650 mg PO Q6H PRN PRN Reason: Headache/Pain Mild Scale (1-3) Last Admin: 12/15/21 03:59 Dose: 650 mg Al Hydroxide/Mg Hydroxide (Magnesium Hydrox/Alum Hydrox 30 Ml Oral.Susp) 30 ml PO Q6H PRN PRN Reason: Heartburn/Nausea Last Admin: 12/10/21 19:22 Dose: 30 ml Albuterol Sulfate (Albuterol Sulfate 90 Mcg 8 Gm Inhaler) 2 puff INHALE Q4H PRN PRN Reason: shortness of breath or wheezing Last Admin: 12/14/21 08:53 Dose: 2 puff Artificial Tears (Artificial Tears 15 Ml Drops) 2 drop EYE-BOTH Q4H PRN PRN Reason: Dry Eyes Last Admin: 12/15/21 09:13 Dose: 2 drop Ascorbic Acid (Ascorbic Acid 250 Mg Tablet) 250 mg PO DAILY [facility] Last Admin: 12/15/21 09:07 Dose: 250 mg Bisacodyl (Bisacodyl 10 Mg Supp.Rect) 10 mg HI BEDTIME PRN PRN Reason: Constipation Last Admin: 12/06/21 21:14 Dose: 10 mg Carbamazepine (Carbamazepine Er 200 Mg Tab.Er.12h) 600 mg PO BID [facility] Last Admin: 12/15/21 09:07 Dose: 600 mg Clonazepam (Clonazepam 1 Mg Tablet) 1 mg PO TID [facility] Famotidine (Famotidine 20 Mg Tablet) 20 mg PO BID [facility] Last Admin: 12/15/21 09:06 Dose: 20 mg Fluticasone/Vilanterol (Fluticasone/Vilanterol 100/25 Blst.W.Dev) 1 puff INHALE DAILY [facility] Last Admin: 12/15/21 09:06 Dose: 1 puff Hydroxyzine HCl (Hydroxyzine Hcl 50 Mg Tablet) 50 mg PO Q6H PRN PRN Reason: Anxiety Last Admin: 12/15/21 03:58 Dose: 50 mg Lactic Acid (Ammonium Lactate 12 % Lotion 226 Gm Bottle) 1 appl TOPICAL BID [facility]; Protocol Last Admin: 12/15/21 09:17 Dose: 1 appl Lidocaine/Diphenhydr/Alum/Mg/Simeth (Mag&Al/Sim/Diphenhyd/Lidocaine 10 Ml Oral.Susp) 10 ml PO Q4H PRN; Protocol PRN Reason: oral mucous membrane ulcer jeremiah Last Admin: 12/14/21 22:33 Dose: 10 ml [place] Carbonate ([place] Carbonate Er 450 Mg Tablet.Er) 450 mg PO BID [facility] Last Admin: 12/15/21 09:07 Dose: 450 mg Magnesium Hydroxide (Milk Of Magnesia 30 Ml Oral.Susp) 30 ml PO DAILY PRN PRN Reason: Constipation Last Admin: 12/14/21 16:16 Dose: 30 ml Nicotine Polacrilex (Nicotine Polacrilex 2 Mg Gum) 4 mg BUCCAL Q1H PRN PRN Reason: Nicotine Cravings Last Admin: 12/15/21 12:38 Dose: 4 mg Olanzapine (Olanzapine 5 Mg Tablet) 5 mg PO Q4H PRN PRN Reason: ginny/psychosis Last Admin: 12/14/21 22:32 Dose: 5 mg Perphenazine (Perphenazine 8 Mg Tablet) 16 mg PO TID [facility] Last Admin: 12/15/21 09:06 Dose: 16 mg Prazosin HCl (Prazosin Hcl 1 Mg Capsule) 1 mg PO BEDTIME [facility]; Protocol Last Admin: 12/14/21 22:50 Dose: Not Given Psyllium Hydrophilic Mucilloid (Psyllium Seed 3.4 Gm Powd.Pack) 3.4 gm PO BID [facility] Last Admin: 12/15/21 09:27 Dose: Not Given Quetiapine Fumarate (Quetiapine Fumarate 200 Mg Tablet) 200 mg PO BID@0900,1400 [facility] Last Admin: 12/15/21 09:07 Dose: 200 mg Quetiapine Fumarate (Quetiapine Fumarate 400 Mg Tablet) 400 mg PO BEDTIME [facility] Last Admin: 12/14/21 22:31 Dose: 400 mg Simethicone (Simethicone 80 Mg Tab.Chew) 80 mg PO QIDWMHS PRN PRN Reason: flatulence Last Admin: 12/14/21 22:30 Dose: 80 mg Tamsulosin HCl (Tamsulosin Hcl 0.4 Mg Capsule) 0.4 mg PO BEDTIME [facility] Last Admin: 12/14/21 22:30 Dose: 0.4 mg Trazodone HCl (Trazodone Hcl 50 Mg Tablet) 150 mg PO BEDTIME [facility] Last Admin: 12/14/21 22:29 Dose: 150 mg Trazodone HCl (Trazodone Hcl 50 Mg Tablet) 50 mg PO BEDTIME PRN PRN Reason: Insomnia Last Admin: 12/14/21 22:29 Dose: 50 mg Vitamin E (Vitamin E (Dl,Tocopheryl Acet) 180 Mg (400 Unit) Capsule) 180 mg PO BID [facility] Last Admin: 12/15/21 09:07 Dose: 180 mg Allergies Allergies Allergy/AdvReac Type Severity Reaction Status Date / Time divalproex sodium Allergy Severe PANCREATITI Verified 11/24/21 14:34 [From DEPAKOTE] S haloperidol [From Haldol] Allergy Intermediate DYSTONIC Verified 11/24/21 14:34 REACTION Assessment & Plan Assessment & Plan (1) Schizoaffective disorder: Status: Acute Code(s): F25.9 - Schizoaffective disorder, unspecified Assessment and Plan: continues really quite manic and disorganized, inc clonazepam and add prn of olanzapine for psychosis already on max seroquel Plan 12/03: continue home meds for now. CV rejected as pt unable to appreciate the circumstances of his admission. will need commitment and benedicto's order. T/C restarting clozaril and lithium, on which pt did well for many years, reportedly. tegretol increased from 400 BID to 600 BID at admission. 12/04: klonopin 0.5/0.5/1 reinstated 12/04 (outpt provider had started it 11/25 at 1 mg TID). magic mouthwash started for oral ulcers. 12/05: slept well last night, still pressured and disorganized. continue current mgmt. 12/08: 12b up, applied for commitment and meds. making sexually inappropriate comments/suggestions to staff, threatening violence and toward male peer. 12/09: same presentation as yesterday. started lithium 450 mg BID today. 12/10: no change in presentation, compliant with lithium. 12/11: DC prazosin to see if B/L pedal edema decreases. DC pravachol as pt is refusing it. order lac-hydrin for plantar fissure. otherwise continue previous mgmt. perhaps slight decrease in pressure and disorganization. 12/12: pedal edema no worse, perhaps better. no GI side effects from lithium. fissure looks improved with cream. check lithium, tegretol, associated labs on wednesday (ordered). titrate lithium as indicated. 12/13 pt manic, disorganized, intrusive, blaming, threatening (told journalists and other writers someone would come over and break his neck) -consider switching to Zyprexa from seroquel 12/14 her is manic, intrusive irritable, grandiose [place] level subtherapeutic; however patient is very anxious about this medication causing side effects and at this time journalists and other writers thinks it might be better to leave it is current dose since patient continues to take it and trying to increase it may very well cause him to refuse it altogether; he is also on Tegretol. Perhaps switching antipsychotics to Zyprexa is warranted. Patient says he has never taken Zyprexa before. Patient typically knows his medication history however usually when someone gets on clozapine it is because most other medications have not worked. [place] has just reached at steady state so will hold off making medication adjustments right now to see if there can be any further benefit observed from currently lithium dose and medication regimen. 12/15 no change; clonazepam at started off and was not restarted. Patient did take p.o. laxatives and had a bowel movement says he feels better. I spent minutes with the patient and/or on the patient floor today, greater than?50% of which was spent counseling/coordinating care. Patient educated on: diagnosis and medication risk/benefits Reason for contiued inpatient stay Substantial Risk for: inability to function
[2021-12-15 21:00] VITALS: BP 124/66; PULSE 79; RESP 18; TEMP 36.8; O2SAT 97
[2021-12-15] MEDS: Mag&Al/Sim/Diphenhyd/Lidocaine 10 ML ORAL.SUSP PO (21:39)
[2021-12-15] MEDS: OLANZapine 5 MG TABLET PO (23:11)
[2021-12-15] MEDS: QUEtiapine Fumarate 400 MG TABLET PO (23:12)
[2021-12-15] MEDS: traZODone HCL 50 MG TABLET PO (23:15)
[2021-12-15] MEDS: traZODone HCL 50 MG TABLET 150 MG PO (23:15)
[2021-12-15] MEDS: Tamsulosin HCL 0.4 MG CAPSULE PO (23:15)
[2021-12-15] MEDS: Albuterol Sulfate 90 MCG 8 GM INHALER 2 PUFF INHALE (23:18)
[2021-12-15] MEDS: Simethicone 80 MG TAB.CHEW PO (23:27)
[2021-12-16] MEDS: Nicotine Polacrilex 2 MG GUM 4 MG BUCCAL ×7 (06:00→21:03)
[2021-12-16 08:00] VITALS: BP 126/75; PULSE 70; RESP 16; TEMP 36.2; O2SAT 99
[2021-12-16] MEDS: Ascorbic Acid 250 MG TABLET PO (08:00)
[2021-12-16] MEDS: Famotidine 20 MG TABLET PO ×2 (08:00→22:45)
[2021-12-16] MEDS: Vitamin E (Dl,Tocopheryl Acet) 180 MG (400 UNIT) CAPSULE PO ×2 (08:00→22:44)
[2021-12-16] MEDS: QUEtiapine Fumarate 200 MG TABLET PO ×2 (08:01→14:05)
[2021-12-16] MEDS: clonazePAM 1 MG TABLET PO ×2 (08:01→14:04)
[2021-12-16] MEDS: Lithium Carbonate ER 450 MG TABLET.ER PO ×2 (08:01→22:44)
[2021-12-16] MEDS: carBAMazepine ER 200 MG TAB.ER.12H 600 MG PO (08:01)
[2021-12-16] MEDS: Perphenazine 8 MG TABLET 16 MG PO ×3 (08:01→22:44)
[2021-12-16] MEDS: Fluticasone/Vilanterol 100/25 BLST.W.DEV 1 PUFF INHALE (08:06)
[2021-12-16] MEDS: Ammonium Lactate 12 % Lotion 226 GM BOTTLE 1 APPL TOPICAL (08:06)
[2021-12-16] MEDS: Artificial Tears 15 ML DROPS 2 DROP EYE-BOTH ×2 (08:06→23:06)
[2021-12-16] MEDS: hydrOXYzine HCL 50 MG TABLET PO ×3 (08:06→23:04)
[2021-12-16] MEDS: Mag&Al/Sim/Diphenhyd/Lidocaine 10 ML ORAL.SUSP PO ×2 (08:06→23:05)
[2021-12-16] MEDS: Acetaminophen 325 MG TABLET 650 MG PO ×2 (08:08→23:05)
[2021-12-16] MEDS: Albuterol Sulfate 90 MCG 8 GM INHALER 2 PUFF INHALE ×2 (08:09→23:06)
--- NOTE | 2021-12-16 16:20 | HO.PSYCHPN ---
Subjective Subjective Date of Service: 12/16/21 Reason For Visit: psychosis Interim History: remains pressured, difficult to understand, bizarre, tangential, delusional. yet, some nuggets of intelligible communication are embedded in the background noise. agreeable to increase tegretol to see if it improves his condition, as he appears to have edema from lithium. had been off prazosin for several days, which did not appear to improve his edema at all. prazosin restarted at 1 mg QHS by dulce over w/, increase back to prior dose of 2 mg tonight. per staff, active, appropriate in groups. klonopin fell off over w/ resulting in some decompensation but was restarted yesterday to good effect. slept overnight. pedal edema continues. Mental Status Exam Mental Status Exam Narrative: Pt is alert and oriented; behavior is cooperative, disorganized, non-agitated; dressed in hospital carlin, adequate hygiene; affect variable, hyper-intense, min-labile; eye contact intense; Speech incr rate, nml loudness. nml prosody, decr latency; thought process disorganized; delusional thinking present; no SI/HI/AVH expressed. Patients insight and judgment are impaired. Diagnostics Vital Signs (24Hr): Vital Signs - 24 hr 12/15/21 21:00 12/16/21 08:00 Temperature 98.2 F 97.2 F Pulse Rate 79 70 Respiratory Rate 18 16 Blood Pressure 124/66 126/75 Pulse Oximetry 97 99 Oxygen Delivery Method Room Air Room Air BMI result Body Mass Index 29.8 Labs Results: 12/14/21 07:58 12/14/21 07:58 Medications Medications Current Medications Acetaminophen (Acetaminophen 325 Mg Tablet) 650 mg PO Q6H PRN PRN Reason: Headache/Pain Mild Scale (1-3) Last Admin: 12/16/21 08:08 Dose: 650 mg Al Hydroxide/Mg Hydroxide (Magnesium Hydrox/Alum Hydrox 30 Ml Oral.Susp) 30 ml PO Q6H PRN PRN Reason: Heartburn/Nausea Last Admin: 12/10/21 19:22 Dose: 30 ml Albuterol Sulfate (Albuterol Sulfate 90 Mcg 8 Gm Inhaler) 2 puff INHALE Q4H PRN PRN Reason: shortness of breath or wheezing Last Admin: 12/16/21 08:09 Dose: 2 puff Artificial Tears (Artificial Tears 15 Ml Drops) 2 drop EYE-BOTH Q4H PRN PRN Reason: Dry Eyes Last Admin: 12/16/21 08:06 Dose: 2 drop Ascorbic Acid (Ascorbic Acid 250 Mg Tablet) 250 mg PO DAILY [facility] Last Admin: 12/16/21 08:00 Dose: 250 mg Bisacodyl (Bisacodyl 10 Mg Supp.Rect) 10 mg DC BEDTIME PRN PRN Reason: Constipation Last Admin: 12/06/21 21:14 Dose: 10 mg Carbamazepine (Carbamazepine Er 200 Mg Tab.Er.12h) 600 mg PO DAILY [facility] Carbamazepine (Carbamazepine Er 200 Mg Tab.Er.12h) 800 mg PO BEDTIME [facility] Famotidine (Famotidine 20 Mg Tablet) 20 mg PO BID [facility] Last Admin: 12/16/21 08:00 Dose: 20 mg Fluticasone/Vilanterol (Fluticasone/Vilanterol 100/25 Blst.W.Dev) 1 puff INHALE DAILY [facility] Last Admin: 12/16/21 08:06 Dose: 1 puff Hydroxyzine HCl (Hydroxyzine Hcl 50 Mg Tablet) 50 mg PO Q6H PRN PRN Reason: Anxiety Last Admin: 12/16/21 08:06 Dose: 50 mg Lactic Acid (Ammonium Lactate 12 % Lotion 226 Gm Bottle) 1 appl TOPICAL BID [facility]; Protocol Last Admin: 12/16/21 08:06 Dose: 1 appl Lidocaine/Diphenhydr/Alum/Mg/Simeth (Mag&Al/Sim/Diphenhyd/Lidocaine 10 Ml Oral.Susp) 10 ml PO Q4H PRN; Protocol PRN Reason: oral mucous membrane ulcer jeremiah Last Admin: 12/16/21 08:06 Dose: 10 ml [place] Carbonate ([place] Carbonate Er 450 Mg Tablet.Er) 450 mg PO BID [facility] Last Admin: 12/16/21 08:01 Dose: 450 mg Magnesium Hydroxide (Milk Of Magnesia 30 Ml Oral.Susp) 30 ml PO DAILY PRN PRN Reason: Constipation Last Admin: 12/14/21 16:16 Dose: 30 ml Nicotine Polacrilex (Nicotine Polacrilex 2 Mg Gum) 4 mg BUCCAL Q1H PRN PRN Reason: Nicotine Cravings Last Admin: 12/16/21 15:00 Dose: 4 mg Olanzapine (Olanzapine 5 Mg Tablet) 5 mg PO Q4H PRN PRN Reason: ginny/psychosis Last Admin: 12/15/21 23:11 Dose: 5 mg Perphenazine (Perphenazine 8 Mg Tablet) 16 mg PO TID [facility] Last Admin: 12/16/21 14:04 Dose: 16 mg Prazosin HCl (Prazosin Hcl 1 Mg Capsule) 2 mg PO BEDTIME [facility]; Protocol Psyllium Hydrophilic Mucilloid (Psyllium Seed 3.4 Gm Powd.Pack) 3.4 gm PO BID [facility] Last Admin: 12/16/21 08:04 Dose: Not Given Quetiapine Fumarate (Quetiapine Fumarate 200 Mg Tablet) 200 mg PO BID@0900,1400 [facility] Last Admin: 12/16/21 14:05 Dose: 200 mg Quetiapine Fumarate (Quetiapine Fumarate 400 Mg Tablet) 400 mg PO BEDTIME [facility] Last Admin: 12/15/21 23:12 Dose: 400 mg Simethicone (Simethicone 80 Mg Tab.Chew) 80 mg PO QIDWMHS PRN PRN Reason: flatulence Last Admin: 12/15/21 23:27 Dose: 80 mg Tamsulosin HCl (Tamsulosin Hcl 0.4 Mg Capsule) 0.4 mg PO BEDTIME [facility] Last Admin: 12/15/21 23:15 Dose: 0.4 mg Trazodone HCl (Trazodone Hcl 50 Mg Tablet) 150 mg PO BEDTIME [facility] Last Admin: 12/15/21 23:15 Dose: 150 mg Trazodone HCl (Trazodone Hcl 50 Mg Tablet) 50 mg PO BEDTIME PRN PRN Reason: Insomnia Last Admin: 12/15/21 23:15 Dose: 50 mg Vitamin E (Vitamin E (Dl,Tocopheryl Acet) 180 Mg (400 Unit) Capsule) 180 mg PO BID [facility] Last Admin: 12/16/21 08:00 Dose: 180 mg Allergies Allergies Allergy/AdvReac Type Severity Reaction Status Date / Time divalproex sodium Allergy Severe PANCREATITI Verified 11/24/21 14:34 [From DEPAKOTE] S haloperidol [From Haldol] Allergy Intermediate DYSTONIC Verified 11/24/21 14:34 REACTION Assessment & Plan Assessment & Plan (1) Schizoaffective disorder: Status: Acute Code(s): F25.9 - Schizoaffective disorder, unspecified Assessment and Plan: continues really quite manic and disorganized, inc clonazepam and add prn of olanzapine for psychosis already on max seroquel Plan 12/03: continue home meds for now. CV rejected as pt unable to appreciate the circumstances of his admission. will need commitment and benedicto's order. T/C restarting clozaril and lithium, on which pt did well for many years, reportedly. tegretol increased from 400 BID to 600 BID at admission. 12/04: klonopin 0.5/0.5/1 reinstated 12/04 (outpt provider had started it 11/25 at 1 mg TID). magic mouthwash started for oral ulcers. 12/05: slept well last night, still pressured and disorganized. continue current mgmt. 12/08: 12b up, applied for commitment and meds. making sexually inappropriate comments/suggestions to staff, threatening violence and toward male peer. 12/09: same presentation as yesterday. started lithium 450 mg BID today. 12/10: no change in presentation, compliant with lithium. 12/11: DC prazosin to see if B/L pedal edema decreases. DC pravachol as pt is refusing it. order lac-hydrin for plantar fissure. otherwise continue previous mgmt. perhaps slight decrease in pressure and disorganization. 12/12: pedal edema no worse, perhaps better. no GI side effects from lithium. fissure looks improved with cream. check lithium, tegretol, associated labs on wednesday (ordered). titrate lithium as indicated. 12/13 pt manic, disorganized, intrusive, blaming, threatening (told ad copy writer someone would come over and break his neck) -consider switching to Zyprexa from seroquel 12/14 her is manic, intrusive irritable, grandiose [place] level subtherapeutic; however patient is very anxious about this medication causing side effects and at this time ad copy writer thinks it might be better to leave it is current dose since patient continues to take it and trying to increase it may very well cause him to refuse it altogether; he is also on Tegretol. Perhaps switching antipsychotics to Zyprexa is warranted. Patient says he has never taken Zyprexa before. Patient typically knows his medication history however usually when someone gets on clozapine it is because most other medications have not worked. [place] has just reached at steady state so will hold off making medication adjustments right now to see if there can be any further benefit observed from currently lithium dose and medication regimen. 12/15 no change; clonazepam at started off and was not restarted. Patient did take p.o. laxatives and had a bowel movement says he feels better. 12/16: increase tegretol from 600 BID to 600/800 tonight, as level around 7. lithium sub-therapeutic but pt resistant to increase, will see how much better he can get on higher tegretol dosing. T/C switching anti-psychotic to zyprexa, as pt has done well on clozaril in the past. TEDs obtained for pedal edema. I spent __25____ minutes with the patient and/or on the patient floor today, greater than?50% of which was spent counseling/coordinating care. Reason for contiued inpatient stay Substantial Risk for: harm to self, harm to others, inability to function and rapid decompensation
[2021-12-16] MEDS: QUEtiapine Fumarate 400 MG TABLET PO (22:42)
[2021-12-16] MEDS: Prazosin HCL 1 MG CAPSULE 2 MG PO (22:42)
[2021-12-16] MEDS: traZODone HCL 50 MG TABLET 150 MG PO (22:43)
[2021-12-16] MEDS: carBAMazepine ER 200 MG TAB.ER.12H 800 MG PO (22:45)
[2021-12-16] MEDS: Tamsulosin HCL 0.4 MG CAPSULE PO (22:45)
[2021-12-16 23:00] VITALS: BP 120/73; PULSE 86; RESP 18; TEMP 36.6; O2SAT 99
[2021-12-16] MEDS: OLANZapine 5 MG TABLET PO (23:04)
[2021-12-16] MEDS: Simethicone 80 MG TAB.CHEW PO (23:04)
[2021-12-17] MEDS: Nicotine Polacrilex 2 MG GUM 4 MG BUCCAL ×10 (00:06→22:09)
--- NOTE | 2021-12-17 03:48 | PC.NURSE ---
Cedric has refused to go to bed. Patient presents with hyperverbal speech making delusional statements about persons in the hospital accessing his chip in his brain. Patient has remained in behavioral control.
[2021-12-17] MEDS: Simethicone 80 MG TAB.CHEW PO (04:07)
[2021-12-17 09:12] VITALS: BP 140/91; PULSE 91; RESP 20; TEMP 36.6; O2SAT 95
[2021-12-17] MEDS: Vitamin E (Dl,Tocopheryl Acet) 180 MG (400 UNIT) CAPSULE PO ×2 (10:46→22:56)
[2021-12-17] MEDS: Lithium Carbonate ER 450 MG TABLET.ER PO ×2 (10:46→22:55)
[2021-12-17] MEDS: QUEtiapine Fumarate 200 MG TABLET PO ×2 (10:46→14:44)
[2021-12-17] MEDS: Ascorbic Acid 250 MG TABLET PO (10:46)
[2021-12-17] MEDS: Perphenazine 8 MG TABLET 16 MG PO ×3 (10:46→22:57)
[2021-12-17] MEDS: carBAMazepine ER 200 MG TAB.ER.12H 600 MG PO (10:46)
[2021-12-17] MEDS: Famotidine 20 MG TABLET PO ×2 (10:46→22:55)
[2021-12-17] MEDS: Fluticasone/Vilanterol 100/25 BLST.W.DEV 1 PUFF INHALE (10:49)
[2021-12-17] MEDS: Artificial Tears 15 ML DROPS 2 DROP EYE-BOTH ×2 (10:50→23:08)
[2021-12-17 13:59] LABS: COVID-19 Test Negative (Negative)
[2021-12-17] MEDS: Mag&Al/Sim/Diphenhyd/Lidocaine 10 ML ORAL.SUSP PO (14:45)
[2021-12-17] MEDS: hydrOXYzine HCL 50 MG TABLET PO (14:47)
[2021-12-17] MEDS: Acetaminophen 325 MG TABLET 650 MG PO ×2 (14:47→23:08)
--- NOTE | 2021-12-17 16:28 | P.PNPSI_ITS ---
Subjective Subjective Date of Service: 12/17/21 Reason For Visit: psychosis Interim History: continues less verbose and more cooperative, at least until the end of the interview when pt began gesturing as if sticking his fingers into MD's temples and talking about being able to kill someone just by placing high pressure on both sides of the skull with his fingers. NA staff sufficiently alarmed at pt's loud voice and gestures as seen from the hernández that NA remained outside the doorway until interview was completed. until that point, pt interacted with MD in a [id number], business-like, sort of fashion, betraying a bit of stand- offishness. it is unclear what elicited this aggression from pt at the end of the interview. nicotine dosing decreased, pt aware, as he reportedly received 48 mg of nicotine yesterday. per staff, pleasant, redirectable. wearing TEDs. attended art group. disorganized, talkative.; med-compliant. safe. c/o having a microchip implanted in his head on eves. Mental Status Exam Mental Status Exam Narrative: Pt is alert and oriented; behavior is cooperative, disorganized, variably agitated; dressed in hospital carlin, adequate hygiene; affect variable, hyper- intense, min-labile; eye contact intense; Speech incr rate, loudness. nml prosody, decr latency; thought process disorganized; delusional thinking present; no SI/HI/AVH expressed. Patients insight and judgment are impaired. Diagnostics Vital Signs (24Hr): Vital Signs - 24 hr 12/16/21 23:00 12/17/21 09:12 Temperature 97.8 F 97.8 F Pulse Rate 86 91 Respiratory Rate 18 20 Blood Pressure 120/73 140/91 H Pulse Oximetry 99 95 Oxygen Delivery Method Room Air Room Air BMI result Body Mass Index 29.8 Labs Results: 12/14/21 07:58 12/14/21 07:58 Labs: Laboratory Results - last 48 hr 12/17/21 13:00 COVID-19 (CARLY) Negative COVID-19 Clin Com See Note Medications Medications Current Medications Acetaminophen (Acetaminophen 325 Mg Tablet) 650 mg PO Q6H PRN PRN Reason: Headache/Pain Mild Scale (1-3) Last Admin: 12/17/21 14:47 Dose: 650 mg Al Hydroxide/Mg Hydroxide (Magnesium Hydrox/Alum Hydrox 30 Ml Oral.Susp) 30 ml PO Q6H PRN PRN Reason: Heartburn/Nausea Last Admin: 12/10/21 19:22 Dose: 30 ml Albuterol Sulfate (Albuterol Sulfate 90 Mcg 8 Gm Inhaler) 2 puff INHALE Q4H PRN PRN Reason: shortness of breath or wheezing Last Admin: 12/16/21 23:06 Dose: 2 puff Artificial Tears (Artificial Tears 15 Ml Drops) 2 drop EYE-BOTH Q4H PRN PRN Reason: Dry Eyes Last Admin: 12/17/21 10:50 Dose: 2 drop Ascorbic Acid (Ascorbic Acid 250 Mg Tablet) 250 mg PO DAILY DAVY Last Admin: 12/17/21 10:46 Dose: 250 mg Bisacodyl (Bisacodyl 10 Mg Supp.Rect) 10 mg ND BEDTIME PRN PRN Reason: Constipation Last Admin: 12/06/21 21:14 Dose: 10 mg Carbamazepine (Carbamazepine Er 200 Mg Tab.Er.12h) 600 mg PO DAILY DAVY Last Admin: 12/17/21 10:46 Dose: 600 mg Carbamazepine (Carbamazepine Er 200 Mg Tab.Er.12h) 800 mg PO BEDTIME DAVY Last Admin: 12/16/21 22:45 Dose: 800 mg Famotidine (Famotidine 20 Mg Tablet) 20 mg PO BID DAVY Last Admin: 12/17/21 10:46 Dose: 20 mg Fluticasone/Vilanterol (Fluticasone/Vilanterol 100/25 Blst.W.Dev) 1 puff INHALE DAILY [facility] Last Admin: 12/17/21 10:49 Dose: 1 puff Hydroxyzine HCl (Hydroxyzine Hcl 50 Mg Tablet) 50 mg PO Q6H PRN PRN Reason: Anxiety Last Admin: 12/17/21 14:47 Dose: 50 mg Lactic Acid (Ammonium Lactate 12 % Lotion 226 Gm Bottle) 1 appl TOPICAL BID DAVY; Protocol Last Admin: 12/17/21 10:49 Dose: Not Given Lidocaine/Diphenhydr/Alum/Mg/Simeth (Mag&Al/Sim/Diphenhyd/Lidocaine 10 Ml Oral.Susp) 10 ml PO Q4H PRN; Protocol PRN Reason: oral mucous membrane ulcer jeremiah Last Admin: 12/17/21 14:45 Dose: 10 ml [place] Carbonate ([place] Carbonate Er 450 Mg Tablet.Er) 450 mg PO BID DAVY Last Admin: 12/17/21 10:46 Dose: 450 mg Magnesium Hydroxide (Milk Of Magnesia 30 Ml Oral.Susp) 30 ml PO DAILY PRN PRN Reason: Constipation Last Admin: 12/14/21 16:16 Dose: 30 ml Nicotine Polacrilex (Nicotine Polacrilex 2 Mg Gum) 4 mg BUCCAL Q2H PRN PRN Reason: Nicotine Cravings Last Admin: 12/17/21 16:14 Dose: 4 mg Olanzapine (Olanzapine 5 Mg Tablet) 5 mg PO Q4H PRN PRN Reason: ginny/psychosis Last Admin: 12/16/21 23:04 Dose: 5 mg Perphenazine (Perphenazine 8 Mg Tablet) 16 mg PO TID [facility] Last Admin: 12/17/21 14:44 Dose: 16 mg Prazosin HCl (Prazosin Hcl 1 Mg Capsule) 2 mg PO BEDTIME [facility]; Protocol Last Admin: 12/16/21 22:42 Dose: 2 mg Psyllium Hydrophilic Mucilloid (Psyllium Seed 3.4 Gm Powd.Pack) 3.4 gm PO BID [facility] Last Admin: 12/17/21 10:53 Dose: Not Given Quetiapine Fumarate (Quetiapine Fumarate 200 Mg Tablet) 200 mg PO BID@0900,1400 [facility] Last Admin: 12/17/21 14:44 Dose: 200 mg Quetiapine Fumarate (Quetiapine Fumarate 400 Mg Tablet) 400 mg PO BEDTIME [facility] Last Admin: 12/16/21 22:42 Dose: 400 mg Simethicone (Simethicone 80 Mg Tab.Chew) 80 mg PO QIDWMHS PRN PRN Reason: flatulence Last Admin: 12/17/21 04:07 Dose: 80 mg Tamsulosin HCl (Tamsulosin Hcl 0.4 Mg Capsule) 0.4 mg PO BEDTIME DAVY Last Admin: 12/16/21 22:45 Dose: 0.4 mg Trazodone HCl (Trazodone Hcl 50 Mg Tablet) 150 mg PO BEDTIME DAVY Last Admin: 12/16/21 22:43 Dose: 150 mg Trazodone HCl (Trazodone Hcl 50 Mg Tablet) 50 mg PO BEDTIME PRN PRN Reason: Insomnia Last Admin: 12/15/21 23:15 Dose: 50 mg Vitamin E (Vitamin E (Dl,Tocopheryl Acet) 180 Mg (400 Unit) Capsule) 180 mg PO BID [facility] Last Admin: 12/17/21 10:46 Dose: 180 mg Allergies Allergies Allergy/AdvReac Type Severity Reaction Status Date / Time divalproex sodium Allergy Severe PANCREATITI Verified 11/24/21 14:34 [From DEPAKOTE] S haloperidol [From Haldol] Allergy Intermediate DYSTONIC Verified 11/24/21 14:34 REACTION Assessment & Plan Assessment & Plan (1) Schizoaffective disorder: Status: Acute Code(s): F25.9 - Schizoaffective disorder, unspecified Assessment and Plan: continues really quite manic and disorganized, inc clonazepam and add prn of olanzapine for psychosis already on max seroquel Plan 12/03: continue home meds for now. CV rejected as pt unable to appreciate the circumstances of his admission. will need commitment and benedicto's order. T/C restarting clozaril and lithium, on which pt did well for many years, reportedly. tegretol increased from 400 BID to 600 BID at admission. 12/04: klonopin 0.5/0.5/1 reinstated 12/04 (outpt provider had started it 11/25 at 1 mg TID). magic mouthwash started for oral ulcers. 12/05: slept well last night, still pressured and disorganized. continue current mgmt. 12/08: 12b up, applied for commitment and meds. making sexually inappropriate comments/suggestions to staff, threatening violence and toward male peer. 12/09: same presentation as yesterday. started lithium 450 mg BID today. 12/10: no change in presentation, compliant with lithium. 12/11: DC prazosin to see if B/L pedal edema decreases. DC pravachol as pt is refusing it. order lac-hydrin for plantar fissure. otherwise continue previous mgmt. perhaps slight decrease in pressure and disorganization. 12/12: pedal edema no worse, perhaps better. no GI side effects from lithium. fissure looks improved with cream. check lithium, tegretol, associated labs on wednesday (ordered). titrate lithium as indicated. 12/13 pt manic, disorganized, intrusive, blaming, threatening (told poem writer someone would come over and break his neck) -consider switching to Zyprexa from seroquel 12/14 her is manic, intrusive irritable, grandiose [place] level subtherapeutic; however patient is very anxious about this medication causing side effects and at this time poem writer thinks it might be better to leave it is current dose since patient continues to take it and trying to increase it may very well cause him to refuse it altogether; he is also on Tegretol. Perhaps switching antipsychotics to Zyprexa is warranted. Patient says he has never taken Zyprexa before. Patient typically knows his medication history however usually when someone gets on clozapine it is because most other medications have not worked. [place] has just reached at steady state so will hold off making medication adjustments right now to see if there can be any further benefit observed from currently lithium dose and medication regimen. 12/15 no change; clonazepam at started off and was not restarted. Patient did take p.o. laxatives and had a bowel movement says he feels better. 12/16: increase tegretol from 600 BID to 600/800 tonight, as level around 7. lithium sub-therapeutic but pt resistant to increase, will see how much better he can get on higher tegretol dosing. T/C switching anti-psychotic to zyprexa, as pt has done well on clozaril in the past. TEDs obtained for pedal edema. 12/17: no change in mgmt. presentation not substantially changed. some agitation today. I spent ___25___ minutes with the patient and/or on the patient floor today, greater than?50% of which was spent counseling/coordinating care. Reason for contiued inpatient stay Substantial Risk for: harm to self, harm to others, inability to function and rapid decompensation
[2021-12-17 22:55] VITALS: BP 141/96; PULSE 80; RESP 16; TEMP 36.4; O2SAT 100
[2021-12-17] MEDS: Prazosin HCL 1 MG CAPSULE 2 MG PO (22:56)
[2021-12-17] MEDS: carBAMazepine ER 200 MG TAB.ER.12H 800 MG PO (22:56)
[2021-12-17] MEDS: traZODone HCL 50 MG TABLET 150 MG PO (22:57)
[2021-12-17] MEDS: QUEtiapine Fumarate 400 MG TABLET PO (22:57)
[2021-12-17] MEDS: Tamsulosin HCL 0.4 MG CAPSULE PO (22:57)
[2021-12-17] MEDS: OLANZapine 5 MG TABLET PO (23:08)
[2021-12-17] MEDS: Albuterol Sulfate 90 MCG 8 GM INHALER 2 PUFF INHALE (23:08)
[2021-12-18] MEDS: Nicotine Polacrilex 2 MG GUM 4 MG BUCCAL ×9 (00:09→22:39)
[2021-12-18] MEDS: Artificial Tears 15 ML DROPS 2 DROP EYE-BOTH ×3 (04:12→22:42)
[2021-12-18] MEDS: hydrOXYzine HCL 50 MG TABLET PO ×3 (04:12→22:39)
[2021-12-18] MEDS: Simethicone 80 MG TAB.CHEW PO ×3 (04:14→22:37)
[2021-12-18 07:00] VITALS: BMI 30.3
[2021-12-18 08:15] VITALS: BP 128/82; PULSE 76; RESP 20; TEMP 36.6; O2SAT 99
[2021-12-18] MEDS: Albuterol Sulfate 90 MCG 8 GM INHALER 2 PUFF INHALE ×2 (08:30→22:42)
[2021-12-18] MEDS: Fluticasone/Vilanterol 100/25 BLST.W.DEV 1 PUFF INHALE (08:30)
[2021-12-18] MEDS: QUEtiapine Fumarate 200 MG TABLET PO ×2 (08:31→14:03)
[2021-12-18] MEDS: Ascorbic Acid 250 MG TABLET PO (08:31)
[2021-12-18] MEDS: Famotidine 20 MG TABLET PO ×2 (08:31→22:39)
[2021-12-18] MEDS: carBAMazepine ER 200 MG TAB.ER.12H 600 MG PO (08:31)
[2021-12-18] MEDS: Vitamin E (Dl,Tocopheryl Acet) 180 MG (400 UNIT) CAPSULE PO ×2 (08:31→22:39)
[2021-12-18] MEDS: Lithium Carbonate ER 450 MG TABLET.ER PO ×2 (08:31→22:39)
[2021-12-18] MEDS: Perphenazine 8 MG TABLET 16 MG PO ×3 (08:31→22:39)
[2021-12-18] MEDS: OLANZapine 5 MG TABLET PO ×2 (14:02→22:38)
[2021-12-18] MEDS: Acetaminophen 325 MG TABLET 650 MG PO ×2 (14:02→22:39)
--- NOTE | 2021-12-18 15:06 | HO.PSYCHPN ---
Subjective Subjective Date of Service: 12/18/21 Reason For Visit: psychosis Interim History: no substantial change in presentation. found sleeping in bed late morning. some meaningful communication under the constant disorganized chatter. informed his tegretol dosing will be increased as of tomorrow. per staff, isolative. not attending groups. eating, c/o restless sleep. hyperverbal overnight. took all PRNs. slept about 2 hours overnight. Mental Status Exam Mental Status Exam Narrative: Pt is found sleeping in bed but is rousable to voice; behavior is cooperative, disorganized, not agitated; dressed in hospital carlin, adequate hygiene; affect hyper-intense, non-labile; eye contact intense; Speech incr rate, nml loudness. nml prosody, decr latency; thought process disorganized; delusional thinking present; no SI/HI/AVH expressed. Patients insight and judgment are impaired. Diagnostics Vital Signs (24Hr): Vital Signs - 24 hr 12/17/21 22:55 12/18/21 08:15 Temperature 97.6 F 97.8 F Pulse Rate 80 76 Respiratory Rate 16 20 Blood Pressure 141/96 H 128/82 Pulse Oximetry 100 99 Oxygen Delivery Method Room Air Room Air BMI result Body Mass Index 30.3 Labs Results: 12/14/21 07:58 12/14/21 07:58 Labs: Laboratory Results - last 48 hr 12/17/21 13:00 COVID-19 ([facility]) Negative COVID-19 Clin Com See Note Medications Medications Current Medications Acetaminophen (Acetaminophen 325 Mg Tablet) 650 mg PO Q6H PRN PRN Reason: Headache/Pain Mild Scale (1-3) Last Admin: 12/18/21 14:02 Dose: 650 mg Al Hydroxide/Mg Hydroxide (Magnesium Hydrox/Alum Hydrox 30 Ml Oral.Susp) 30 ml PO Q6H PRN PRN Reason: Heartburn/Nausea Last Admin: 12/10/21 19:22 Dose: 30 ml Albuterol Sulfate (Albuterol Sulfate 90 Mcg 8 Gm Inhaler) 2 puff INHALE Q4H PRN PRN Reason: shortness of breath or wheezing Last Admin: 12/18/21 08:30 Dose: 2 puff Artificial Tears (Artificial Tears 15 Ml Drops) 2 drop EYE-BOTH Q4H PRN PRN Reason: Dry Eyes Last Admin: 12/18/21 08:31 Dose: 2 drop Ascorbic Acid (Ascorbic Acid 250 Mg Tablet) 250 mg PO DAILY [facility] Last Admin: 12/18/21 08:31 Dose: 250 mg Bisacodyl (Bisacodyl 10 Mg Supp.Rect) 10 mg DE BEDTIME PRN PRN Reason: Constipation Last Admin: 12/06/21 21:14 Dose: 10 mg Carbamazepine (Carbamazepine Er 200 Mg Tab.Er.12h) 800 mg PO BEDTIME DAVY Last Admin: 12/17/21 22:56 Dose: 800 mg Carbamazepine (Carbamazepine Er 200 Mg Tab.Er.12h) 800 mg PO DAILY [facility] Famotidine (Famotidine 20 Mg Tablet) 20 mg PO BID DAVY Last Admin: 12/18/21 08:31 Dose: 20 mg Fluticasone/Vilanterol (Fluticasone/Vilanterol 100/25 Blst.W.Dev) 1 puff INHALE DAILY [facility] Last Admin: 12/18/21 08:30 Dose: 1 puff Hydroxyzine HCl (Hydroxyzine Hcl 50 Mg Tablet) 50 mg PO Q6H PRN PRN Reason: Anxiety Last Admin: 12/18/21 14:02 Dose: 50 mg Lactic Acid (Ammonium Lactate 12 % Lotion 226 Gm Bottle) 1 appl TOPICAL BID [facility]; Protocol Last Admin: 12/18/21 10:37 Dose: Not Given Lidocaine/Diphenhydr/Alum/Mg/Simeth (Mag&Al/Sim/Diphenhyd/Lidocaine 10 Ml Oral.Susp) 10 ml PO Q4H PRN; Protocol PRN Reason: oral mucous membrane ulcer jeremiah Last Admin: 12/17/21 14:45 Dose: 10 ml [place] Carbonate ([place] Carbonate Er 450 Mg Tablet.Er) 450 mg PO BID [facility] Last Admin: 12/18/21 08:31 Dose: 450 mg Magnesium Hydroxide (Milk Of Magnesia 30 Ml Oral.Susp) 30 ml PO DAILY PRN PRN Reason: Constipation Last Admin: 12/14/21 16:16 Dose: 30 ml Nicotine Polacrilex (Nicotine Polacrilex 2 Mg Gum) 4 mg BUCCAL Q2H PRN PRN Reason: Nicotine Cravings Last Admin: 12/18/21 14:03 Dose: 4 mg Olanzapine (Olanzapine 5 Mg Tablet) 5 mg PO Q4H PRN PRN Reason: ginny/psychosis Last Admin: 12/18/21 14:02 Dose: 5 mg Perphenazine (Perphenazine 8 Mg Tablet) 16 mg PO TID [facility] Last Admin: 12/18/21 14:03 Dose: 16 mg Prazosin HCl (Prazosin Hcl 1 Mg Capsule) 2 mg PO BEDTIME [facility]; Protocol Last Admin: 12/17/21 22:56 Dose: 2 mg Psyllium Hydrophilic Mucilloid (Psyllium Seed 3.4 Gm Powd.Pack) 3.4 gm PO BID [facility] Last Admin: 12/18/21 08:32 Dose: Not Given Quetiapine Fumarate (Quetiapine Fumarate 200 Mg Tablet) 200 mg PO BID@0900,1400 [facility] Last Admin: 12/18/21 14:03 Dose: 200 mg Quetiapine Fumarate (Quetiapine Fumarate 400 Mg Tablet) 400 mg PO BEDTIME [facility] Last Admin: 12/17/21 22:57 Dose: 400 mg Simethicone (Simethicone 80 Mg Tab.Chew) 80 mg PO QIDWMHS PRN PRN Reason: flatulence Last Admin: 12/18/21 14:02 Dose: 80 mg Tamsulosin HCl (Tamsulosin Hcl 0.4 Mg Capsule) 0.4 mg PO BEDTIME [facility] Last Admin: 12/17/21 22:57 Dose: 0.4 mg Trazodone HCl (Trazodone Hcl 50 Mg Tablet) 150 mg PO BEDTIME [facility] Last Admin: 12/17/21 22:57 Dose: 150 mg Trazodone HCl (Trazodone Hcl 50 Mg Tablet) 50 mg PO BEDTIME PRN PRN Reason: Insomnia Last Admin: 12/15/21 23:15 Dose: 50 mg Vitamin E (Vitamin E (Dl,Tocopheryl Acet) 180 Mg (400 Unit) Capsule) 180 mg PO BID [facility] Last Admin: 12/18/21 08:31 Dose: 180 mg Allergies Allergies Allergy/AdvReac Type Severity Reaction Status Date / Time divalproex sodium Allergy Severe PANCREATITI Verified 11/24/21 14:34 [From DEPAKOTE] S haloperidol [From Haldol] Allergy Intermediate DYSTONIC Verified 11/24/21 14:34 REACTION Assessment & Plan Assessment & Plan (1) Schizoaffective disorder: Status: Acute Code(s): F25.9 - Schizoaffective disorder, unspecified Assessment and Plan: continues really quite manic and disorganized, inc clonazepam and add prn of olanzapine for psychosis already on max seroquel Plan 12/03: continue home meds for now. CV rejected as pt unable to appreciate the circumstances of his admission. will need commitment and benedicto's order. T/C restarting clozaril and lithium, on which pt did well for many years, reportedly. tegretol increased from 400 BID to 600 BID at admission. 12/04: klonopin 0.5/0.5/1 reinstated 12/04 (outpt provider had started it 11/25 at 1 mg TID). magic mouthwash started for oral ulcers. 12/05: slept well last night, still pressured and disorganized. continue current mgmt. 12/08: 12b up, applied for commitment and meds. making sexually inappropriate comments/suggestions to staff, threatening violence and toward male peer. 12/09: same presentation as yesterday. started lithium 450 mg BID today. 12/10: no change in presentation, compliant with lithium. 12/11: DC prazosin to see if B/L pedal edema decreases. DC pravachol as pt is refusing it. order lac-hydrin for plantar fissure. otherwise continue previous mgmt. perhaps slight decrease in pressure and disorganization. 12/12: pedal edema no worse, perhaps better. no GI side effects from lithium. fissure looks improved with cream. check lithium, tegretol, associated labs on wednesday (ordered). titrate lithium as indicated. 12/13 pt manic, disorganized, intrusive, blaming, threatening (told technical writer and editor someone would come over and break his neck) -consider switching to Zyprexa from seroquel 12/14 her is manic, intrusive irritable, grandiose [place] level subtherapeutic; however patient is very anxious about this medication causing side effects and at this time technical writer and editor thinks it might be better to leave it is current dose since patient continues to take it and trying to increase it may very well cause him to refuse it altogether; he is also on Tegretol. Perhaps switching antipsychotics to Zyprexa is warranted. Patient says he has never taken Zyprexa before. Patient typically knows his medication history however usually when someone gets on clozapine it is because most other medications have not worked. [place] has just reached at steady state so will hold off making medication adjustments right now to see if there can be any further benefit observed from currently lithium dose and medication regimen. 12/15 no change; clonazepam at started off and was not restarted. Patient did take p.o. laxatives and had a bowel movement says he feels better. 12/16: increase tegretol from 600 BID to 600/800 tonight, as level around 7. lithium sub-therapeutic but pt resistant to increase, will see how much better he can get on higher tegretol dosing. T/C switching anti-psychotic to zyprexa, as pt has done well on clozaril in the past. TEDs obtained for pedal edema. 12/17: no change in mgmt. presentation not substantially changed. some agitation today. 12/18: presentation essentially unchanged. no agitation today, sleeping late morning. I spent ___20___ minutes with the patient and/or on the patient floor today, greater than?50% of which was spent counseling/coordinating care. Reason for contiued inpatient stay Substantial Risk for: inability to function and rapid decompensation
[2021-12-18] MEDS: clonazePAM 1 MG TABLET PO ×2 (15:47→22:38)
[2021-12-18 20:00] VITALS: BP 138/75; PULSE 70; RESP 16; O2SAT 100
[2021-12-18] MEDS: QUEtiapine Fumarate 400 MG TABLET PO (22:38)
[2021-12-18] MEDS: traZODone HCL 50 MG TABLET 150 MG PO (22:38)
[2021-12-18] MEDS: carBAMazepine ER 200 MG TAB.ER.12H 800 MG PO (22:38)
[2021-12-18] MEDS: Tamsulosin HCL 0.4 MG CAPSULE PO (22:39)
[2021-12-18] MEDS: Prazosin HCL 1 MG CAPSULE 2 MG PO (22:39)
[2021-12-19] MEDS: Nicotine Polacrilex 2 MG GUM 4 MG BUCCAL ×7 (00:42→20:44)
[2021-12-19 06:00] VITALS: BP 132/77; PULSE 72; RESP 18; TEMP 36.6; O2SAT 100
[2021-12-19] MEDS: Ammonium Lactate 12 % Lotion 226 GM BOTTLE 1 APPL TOPICAL ×2 (06:32→20:36)
[2021-12-19] MEDS: Acetaminophen 325 MG TABLET 650 MG PO ×3 (07:51→20:38)
[2021-12-19] MEDS: Fluticasone/Vilanterol 100/25 BLST.W.DEV 1 PUFF INHALE (08:39)
[2021-12-19] MEDS: carBAMazepine ER 200 MG TAB.ER.12H 800 MG PO ×2 (08:40→20:38)
[2021-12-19] MEDS: clonazePAM 1 MG TABLET PO ×3 (08:40→20:44)
[2021-12-19] MEDS: Perphenazine 8 MG TABLET 16 MG PO ×3 (08:40→20:37)
[2021-12-19] MEDS: Ascorbic Acid 250 MG TABLET PO (08:41)
[2021-12-19] MEDS: Lithium Carbonate ER 450 MG TABLET.ER PO ×2 (08:41→20:38)
[2021-12-19] MEDS: Famotidine 20 MG TABLET PO ×2 (08:41→20:37)
[2021-12-19] MEDS: QUEtiapine Fumarate 200 MG TABLET PO ×2 (08:41→14:28)
[2021-12-19] MEDS: OLANZapine 5 MG TABLET PO ×3 (08:42→20:39)
[2021-12-19] MEDS: Vitamin E (Dl,Tocopheryl Acet) 180 MG (400 UNIT) CAPSULE PO ×2 (08:43→20:44)
[2021-12-19] MEDS: hydrOXYzine HCL 50 MG TABLET PO ×3 (08:53→20:39)
[2021-12-19 11:48] LABS: COVID-19 Test Negative (Negative)
--- NOTE | 2021-12-19 17:20 | P.PNPSI_ITS ---
Subjective Subjective Date of Service: 12/19/21 Reason For Visit: psychosis Subjective Notes: Andresw Warning Interim History: I spoke with pt's team. Pt's RN concerned with bilateral pedal edema. Discussed with hospitalist. Per pt, im trying. He does not like his meds, says he is willing to take anything but lithium (due to diarrhea), clozaril, (due to sedation), or depakote (pancreatitis). Pt is still concerned with diarrhea, insists no matter what happens it is inevitable. Noticed that pt's speech is slurred, says its because he just took mediation. Mood is alright. Says he is trying to get enough sleep. Has been writing in his journal, 6 pages in but says he cant read, says he needs an eye doctor, not a new issue. 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 dizziness, headache GI: No c/o Nausea, Vomiting, diarrhea, constipation or heartburn Diagnostics Vital Signs (24Hr): Vital Signs - 24 hr 12/18/21 20:00 12/19/21 06:00 Temperature 97.8 F Pulse Rate 70 72 Respiratory Rate 16 18 Blood Pressure 138/75 132/77 Pulse Oximetry 100 100 Oxygen Delivery Method Room Air Room Air BMI result Body Mass Index 30.3 Labs Results: 12/14/21 07:58 12/19/21 18:51 Labs: Laboratory Results - last 48 hr 12/19/21 11:00 COVID-19 (CARLY) Negative COVID-19 Clin Com See Note Medications Medications Current Medications Acetaminophen (Acetaminophen 325 Mg Tablet) 650 mg PO Q6H PRN PRN Reason: Headache/Pain Mild Scale (1-3) Last Admin: 12/19/21 14:36 Dose: 650 mg Al Hydroxide/Mg Hydroxide (Magnesium Hydrox/Alum Hydrox 30 Ml Oral.Susp) 30 ml PO Q6H PRN PRN Reason: Heartburn/Nausea Last Admin: 12/10/21 19:22 Dose: 30 ml Albuterol Sulfate (Albuterol Sulfate 90 Mcg 8 Gm Inhaler) 2 puff INHALE Q4H PRN PRN Reason: shortness of breath or wheezing Last Admin: 12/18/21 22:42 Dose: 2 puff Artificial Tears (Artificial Tears 15 Ml Drops) 2 drop EYE-BOTH Q4H PRN PRN Reason: Dry Eyes Last Admin: 12/18/21 22:42 Dose: 2 drop Ascorbic Acid (Ascorbic Acid 250 Mg Tablet) 250 mg PO DAILY DAVY Last Admin: 12/19/21 08:41 Dose: 250 mg Bisacodyl (Bisacodyl 10 Mg Supp.Rect) 10 mg FL BEDTIME PRN PRN Reason: Constipation Last Admin: 12/06/21 21:14 Dose: 10 mg Carbamazepine (Carbamazepine Er 200 Mg Tab.Er.12h) 800 mg PO BEDTIME DAVY Last Admin: 12/18/21 22:38 Dose: 800 mg Carbamazepine (Carbamazepine Er 200 Mg Tab.Er.12h) 800 mg PO DAILY DAVY Last Admin: 12/19/21 08:40 Dose: 800 mg Clonazepam (Clonazepam 1 Mg Tablet) 1 mg PO TID DAVY Last Admin: 12/19/21 14:28 Dose: 1 mg Famotidine (Famotidine 20 Mg Tablet) 20 mg PO BID DAVY Last Admin: 12/19/21 08:41 Dose: 20 mg Fluticasone/Vilanterol (Fluticasone/Vilanterol 100/25 Blst.W.Dev) 1 puff INHALE DAILY [facility] Last Admin: 12/19/21 08:39 Dose: 1 puff Hydroxyzine HCl (Hydroxyzine Hcl 50 Mg Tablet) 50 mg PO Q6H PRN PRN Reason: Anxiety Last Admin: 12/19/21 14:28 Dose: 50 mg Lactic Acid (Ammonium Lactate 12 % Lotion 226 Gm Bottle) 1 appl TOPICAL BID DAVY; Protocol Last Admin: 12/19/21 06:32 Dose: 1 appl Lidocaine/Diphenhydr/Alum/Mg/Simeth (Mag&Al/Sim/Diphenhyd/Lidocaine 10 Ml Oral.Susp) 10 ml PO Q4H PRN; Protocol PRN Reason: oral mucous membrane ulcer jeremiah Last Admin: 12/17/21 14:45 Dose: 10 ml [place] Carbonate ([place] Carbonate Er 450 Mg Tablet.Er) 450 mg PO BID DAVY Last Admin: 12/19/21 08:41 Dose: 450 mg Magnesium Hydroxide (Milk Of Magnesia 30 Ml Oral.Susp) 30 ml PO DAILY PRN PRN Reason: Constipation Last Admin: 12/14/21 16:16 Dose: 30 ml Nicotine Polacrilex (Nicotine Polacrilex 2 Mg Gum) 4 mg BUCCAL Q2H PRN PRN Reason: Nicotine Cravings Last Admin: 12/19/21 17:15 Dose: 4 mg Olanzapine (Olanzapine 5 Mg Tablet) 5 mg PO Q4H PRN PRN Reason: ginny/psychosis Last Admin: 12/19/21 14:28 Dose: 5 mg Perphenazine (Perphenazine 8 Mg Tablet) 16 mg PO TID DAVY Last Admin: 12/19/21 14:28 Dose: 16 mg Prazosin HCl (Prazosin Hcl 1 Mg Capsule) 2 mg PO BEDTIME [facility]; Protocol Last Admin: 12/18/21 22:39 Dose: 2 mg Psyllium Hydrophilic Mucilloid (Psyllium Seed 3.4 Gm Powd.Pack) 3.4 gm PO BID DAVY Last Admin: 12/19/21 08:39 Dose: 3.4 gm Quetiapine Fumarate (Quetiapine Fumarate 200 Mg Tablet) 200 mg PO BID@0900,1400 [facility] Last Admin: 12/19/21 14:28 Dose: 200 mg Quetiapine Fumarate (Quetiapine Fumarate 400 Mg Tablet) 400 mg PO BEDTIME DAVY Last Admin: 12/18/21 22:38 Dose: 400 mg Simethicone (Simethicone 80 Mg Tab.Chew) 80 mg PO QIDWMHS PRN PRN Reason: flatulence Last Admin: 12/18/21 22:37 Dose: 80 mg Tamsulosin HCl (Tamsulosin Hcl 0.4 Mg Capsule) 0.4 mg PO BEDTIME DAVY Last Admin: 12/18/21 22:39 Dose: 0.4 mg Trazodone HCl (Trazodone Hcl 50 Mg Tablet) 150 mg PO BEDTIME DAVY Last Admin: 12/18/21 22:38 Dose: 150 mg Trazodone HCl (Trazodone Hcl 50 Mg Tablet) 50 mg PO BEDTIME PRN PRN Reason: Insomnia Last Admin: 12/15/21 23:15 Dose: 50 mg Vitamin E (Vitamin E (Dl,Tocopheryl Acet) 180 Mg (400 Unit) Capsule) 180 mg PO BID [facility] Last Admin: 12/19/21 08:43 Dose: 180 mg Allergies Allergies Allergy/AdvReac Type Severity Reaction Status Date / Time divalproex sodium Allergy Severe PANCREATITI Verified 11/24/21 14:34 [From DEPAKOTE] S haloperidol [From Haldol] Allergy Intermediate DYSTONIC Verified 11/24/21 14:34 REACTION Assessment & Plan Assessment & Plan (1) Schizoaffective disorder: Status: Acute Code(s): F25.9 - Schizoaffective disorder, unspecified Assessment and Plan: continues really quite manic and disorganized, inc clonazepam and add prn of olanzapine for psychosis already on max seroquel Plan 12/03: continue home meds for now. CV rejected as pt unable to appreciate the circumstances of his admission. will need commitment and benedicto's order. T/C restarting clozaril and lithium, on which pt did well for many years, reportedly. tegretol increased from 400 BID to 600 BID at admission. 12/04: klonopin 0.5/0.5/1 reinstated 12/04 (outpt provider had started it 11/25 at 1 mg TID). magic mouthwash started for oral ulcers. 12/05: slept well last night, still pressured and disorganized. continue current mgmt. 12/08: 12b up, applied for commitment and meds. making sexually inappropriate comments/suggestions to staff, threatening violence and toward male peer. 12/09: same presentation as yesterday. started lithium 450 mg BID today. 12/10: no change in presentation, compliant with lithium. 12/11: DC prazosin to see if B/L pedal edema decreases. DC pravachol as pt is refusing it. order lac-hydrin for plantar fissure. otherwise continue previous mgmt. perhaps slight decrease in pressure and disorganization. 12/12: pedal edema no worse, perhaps better. no GI side effects from lithium. fissure looks improved with cream. check lithium, tegretol, associated labs on wednesday (ordered). titrate lithium as indicated. 12/13 pt manic, disorganized, intrusive, blaming, threatening (told freelance writer someone would come over and break his neck) -consider switching to Zyprexa from seroquel 12/14 her is manic, intrusive irritable, grandiose [place] level subtherapeutic; however patient is very anxious about this medication causing side effects and at this time freelance writer thinks it might be better to leave it is current dose since patient continues to take it and trying to increase it may very well cause him to refuse it altogether; he is also on Tegretol. Perhaps switching antipsychotics to Zyprexa is warranted. Patient says he has never taken Zyprexa before. Patient typically knows his medication history however usually when someone gets on clozapine it is because most other medications have not worked. [place] has just reached at steady state so will hold off making medication adjustments right now to see if there can be any further benefit observed from currently lithium dose and medication regimen. 12/15 no change; clonazepam at started off and was not restarted. Patient did take p.o. laxatives and had a bowel movement says he feels better. 12/16: increase tegretol from 600 BID to 600/800 tonight, as level around 7. lithium sub-therapeutic but pt resistant to increase, will see how much better he can get on higher tegretol dosing. T/C switching anti-psychotic to zyprexa, as pt has done well on clozaril in the past. TEDs obtained for pedal edema. 12/17: no change in mgmt. presentation not substantially changed. some agitation today. 12/18: presentation essentially unchanged. no agitation today, sleeping late morning. 12/19: Assessed for pedal edema, spoke with hospitalist, BNP, BMP wnl, venous doppler wnl. Per hospitalist, continue with TEDs, may consider low dose lasix. I spent minutes with the patient and/or on the patient floor today, greater than?50% of which was spent counseling/coordinating care. Patient educated on: diagnosis, medication risk/benefits and therapeutic strategies Reason for contiued inpatient stay Substantial Risk for: inability to function, rapid decompensation and med/psych decompensation
[2021-12-19 19:19] LABS: Anion Gap 11 (12-20); Blood Urea Nitrogen 15 mg/dL (9-16); Calcium 8.5 mg/dL (8.4-10.2); Carbon Dioxide 28 mmol/L (22-29); Chloride 106 mmol/L (96-108); Creatinine Clr Calc Pharmacy 123.2; Estimated Glomerular Filt Rate > 60; Glucose Random 168 mg/dL (60-115); Potassium 4.3 mmol/L (3.3-5.1); Sodium 141 mmol/L (135-145)
[2021-12-19 19:24] LABS: B Type Natriuretic Peptide 21 pg/mL (<100)
[2021-12-19 20:36] VITALS: BP 160/85; PULSE 82; RESP 18; TEMP 36.2; O2SAT 99
[2021-12-19] MEDS: Albuterol Sulfate 90 MCG 8 GM INHALER 2 PUFF INHALE (20:36)
[2021-12-19] MEDS: Simethicone 80 MG TAB.CHEW PO (20:37)
[2021-12-19] MEDS: traZODone HCL 50 MG TABLET 150 MG PO (20:37)
[2021-12-19] MEDS: Artificial Tears 15 ML DROPS 2 DROP EYE-BOTH (20:37)
[2021-12-19] MEDS: traZODone HCL 50 MG TABLET PO ×2 (20:38→22:20)
[2021-12-19] MEDS: Tamsulosin HCL 0.4 MG CAPSULE PO (20:39)
[2021-12-19] MEDS: QUEtiapine Fumarate 400 MG TABLET PO (20:39)
[2021-12-19] MEDS: Prazosin HCL 1 MG CAPSULE 2 MG PO (20:39)
[2021-12-20] MEDS: Nicotine Polacrilex 2 MG GUM 4 MG BUCCAL ×9 (00:12→22:53)
[2021-12-20] MEDS: Artificial Tears 15 ML DROPS 2 DROP EYE-BOTH ×2 (00:15→22:46)
[2021-12-20] MEDS: Mag&Al/Sim/Diphenhyd/Lidocaine 10 ML ORAL.SUSP PO (02:20)
[2021-12-20 06:00] VITALS: BP 141/84; PULSE 79; RESP 16; TEMP 36.7; O2SAT 100
[2021-12-20] MEDS: Ammonium Lactate 12 % Lotion 226 GM BOTTLE 1 APPL TOPICAL ×2 (06:55→22:54)
[2021-12-20] MEDS: Famotidine 20 MG TABLET PO ×2 (08:15→22:51)
[2021-12-20] MEDS: Lithium Carbonate ER 450 MG TABLET.ER PO ×2 (08:15→22:51)
[2021-12-20] MEDS: Fluticasone/Vilanterol 100/25 BLST.W.DEV 1 PUFF INHALE (08:15)
[2021-12-20] MEDS: Ascorbic Acid 250 MG TABLET PO (08:15)
[2021-12-20] MEDS: carBAMazepine ER 200 MG TAB.ER.12H 800 MG PO ×2 (08:16→22:51)
[2021-12-20] MEDS: Perphenazine 8 MG TABLET 16 MG PO ×3 (08:16→22:50)
[2021-12-20] MEDS: clonazePAM 1 MG TABLET PO ×3 (08:16→22:51)
[2021-12-20] MEDS: Vitamin E (Dl,Tocopheryl Acet) 180 MG (400 UNIT) CAPSULE PO ×2 (08:16→22:52)
[2021-12-20] MEDS: QUEtiapine Fumarate 200 MG TABLET PO ×2 (08:16→14:59)
[2021-12-20] MEDS: Acetaminophen 325 MG TABLET 650 MG PO ×3 (08:27→22:48)
[2021-12-20] MEDS: OLANZapine 5 MG TABLET PO ×3 (08:27→22:50)
[2021-12-20] MEDS: hydrOXYzine HCL 50 MG TABLET PO ×3 (08:27→22:48)
--- NOTE | 2021-12-20 15:21 | HO.PSYCHPN ---
Subjective Subjective Date of Service: 12/20/21 Reason For Visit: psychosis Interim History: no change in presentation from recent days, but trend is that he is more calm. bizarre unintelligible statements for the most part. per staff, slept 10:30 - 12 last night and has been awake since. pleasantly psychotic. some talk today about being able to harm others, generally speaking, but not in a directed or threatening way. pedal edema continues, wearing TEDs. Mental Status Exam Mental Status Exam Narrative: up and about the unit; behavior is cooperative, disorganized, not agitated; dressed in hospital carlin, adequate hygiene; affect hyper-intense, non-labile; eye contact intense; Speech incr rate, nml loudness. nml prosody, decr latency; thought process disorganized; delusional thinking present; no SI/HI/AVH expressed. Patients insight and judgment are impaired. Diagnostics Vital Signs (24Hr): Vital Signs - 24 hr 12/19/21 20:36 12/20/21 06:00 Temperature 97.2 F 98.1 F Pulse Rate 82 79 Respiratory Rate 18 16 Blood Pressure 160/85 H 141/84 H Pulse Oximetry 99 100 Oxygen Delivery Method Room Air Room Air BMI result Body Mass Index 30.3 Labs Results: 12/14/21 07:58 12/19/21 18:51 Labs: Laboratory Results - last 48 hr 12/19/21 12/19/21 12/19/21 11:00 18:51 18:51 Sodium 141 Potassium 4.3 Chloride 106 Carbon Dioxide 28 Anion Gap 11 L BUN 15 Creatinine 0.95 Estim Creat Clear Calc 123.2 Estimated GFR > 60 Random Glucose 168 H D Calcium 8.5 D B-Natriuretic Peptide 21 COVID-19 (CARLY) Negative COVID-19 Clin Com See Note Imaging Radiology Impressions: ITS Impressions Venous Duplex 12/19/21 20:16 IMPRESSION: No DVT demonstrated in the bilateral lower extremity. Medications Medications Current Medications Acetaminophen (Acetaminophen 325 Mg Tablet) 650 mg PO Q6H PRN PRN Reason: Headache/Pain Mild Scale (1-3) Last Admin: 12/20/21 14:59 Dose: 650 mg Al Hydroxide/Mg Hydroxide (Magnesium Hydrox/Alum Hydrox 30 Ml Oral.Susp) 30 ml PO Q6H PRN PRN Reason: Heartburn/Nausea Last Admin: 12/10/21 19:22 Dose: 30 ml Albuterol Sulfate (Albuterol Sulfate 90 Mcg 8 Gm Inhaler) 2 puff INHALE Q4H PRN PRN Reason: shortness of breath or wheezing Last Admin: 12/19/21 20:36 Dose: 2 puff Artificial Tears (Artificial Tears 15 Ml Drops) 2 drop EYE-BOTH Q4H PRN PRN Reason: Dry Eyes Last Admin: 12/20/21 00:15 Dose: 2 drop Ascorbic Acid (Ascorbic Acid 250 Mg Tablet) 250 mg PO DAILY DAVY Last Admin: 12/20/21 08:15 Dose: 250 mg Bisacodyl (Bisacodyl 10 Mg Supp.Rect) 10 mg OK BEDTIME PRN PRN Reason: Constipation Last Admin: 12/06/21 21:14 Dose: 10 mg Carbamazepine (Carbamazepine Er 200 Mg Tab.Er.12h) 800 mg PO BEDTIME DAVY Last Admin: 12/19/21 20:38 Dose: 800 mg Carbamazepine (Carbamazepine Er 200 Mg Tab.Er.12h) 800 mg PO DAILY DAVY Last Admin: 12/20/21 08:16 Dose: 800 mg Clonazepam (Clonazepam 1 Mg Tablet) 1 mg PO TID DAVY Last Admin: 12/20/21 14:59 Dose: 1 mg Famotidine (Famotidine 20 Mg Tablet) 20 mg PO BID DAVY Last Admin: 12/20/21 08:15 Dose: 20 mg Fluticasone/Vilanterol (Fluticasone/Vilanterol 100/25 Blst.W.Dev) 1 puff INHALE DAILY [facility]Y Last Admin: 12/20/21 08:15 Dose: 1 puff Hydroxyzine HCl (Hydroxyzine Hcl 50 Mg Tablet) 50 mg PO Q6H PRN PRN Reason: Anxiety Last Admin: 12/20/21 14:59 Dose: 50 mg Lactic Acid (Ammonium Lactate 12 % Lotion 226 Gm Bottle) 1 appl TOPICAL BID DAVY; Protocol Last Admin: 12/20/21 06:55 Dose: 1 appl Lidocaine/Diphenhydr/Alum/Mg/Simeth (Mag&Al/Sim/Diphenhyd/Lidocaine 10 Ml Oral.Susp) 10 ml PO Q4H PRN; Protocol PRN Reason: oral mucous membrane ulcer jeremiah Last Admin: 12/20/21 02:20 Dose: 10 ml [place] Carbonate ([place] Carbonate Er 450 Mg Tablet.Er) 450 mg PO BID [facility] Last Admin: 12/20/21 08:15 Dose: 450 mg Magnesium Hydroxide (Milk Of Magnesia 30 Ml Oral.Susp) 30 ml PO DAILY PRN PRN Reason: Constipation Last Admin: 12/14/21 16:16 Dose: 30 ml Nicotine Polacrilex (Nicotine Polacrilex 2 Mg Gum) 4 mg BUCCAL Q2H PRN PRN Reason: Nicotine Cravings Last Admin: 12/20/21 14:06 Dose: 4 mg Olanzapine (Olanzapine 5 Mg Tablet) 5 mg PO Q4H PRN PRN Reason: ginny/psychosis Last Admin: 12/20/21 14:59 Dose: 5 mg Perphenazine (Perphenazine 8 Mg Tablet) 16 mg PO TID DAVY Last Admin: 12/20/21 14:59 Dose: 16 mg Prazosin HCl (Prazosin Hcl 1 Mg Capsule) 2 mg PO BEDTIME DAVY; Protocol Last Admin: 12/19/21 20:39 Dose: 2 mg Psyllium Hydrophilic Mucilloid (Psyllium Seed 3.4 Gm Powd.Pack) 3.4 gm PO BID DAVY Last Admin: 12/20/21 08:27 Dose: 3.4 gm Quetiapine Fumarate (Quetiapine Fumarate 200 Mg Tablet) 200 mg PO BID@0900,1400 [facility] Last Admin: 12/20/21 14:59 Dose: 200 mg Quetiapine Fumarate (Quetiapine Fumarate 400 Mg Tablet) 400 mg PO BEDTIME DAVY Last Admin: 12/19/21 20:39 Dose: 400 mg Simethicone (Simethicone 80 Mg Tab.Chew) 80 mg PO QIDWMHS PRN PRN Reason: flatulence Last Admin: 12/19/21 20:37 Dose: 80 mg Tamsulosin HCl (Tamsulosin Hcl 0.4 Mg Capsule) 0.4 mg PO BEDTIME DAVY Last Admin: 12/19/21 20:39 Dose: 0.4 mg Trazodone HCl (Trazodone Hcl 50 Mg Tablet) 150 mg PO BEDTIME DAVY Last Admin: 12/19/21 20:37 Dose: 150 mg Trazodone HCl (Trazodone Hcl 50 Mg Tablet) 50 mg PO BEDTIME PRN PRN Reason: Insomnia Last Admin: 12/19/21 22:20 Dose: 50 mg Vitamin E (Vitamin E (Dl,Tocopheryl Acet) 180 Mg (400 Unit) Capsule) 180 mg PO BID DAVY Last Admin: 12/20/21 08:16 Dose: 180 mg Allergies Allergies Allergy/AdvReac Type Severity Reaction Status Date / Time divalproex sodium Allergy Severe PANCREATITI Verified 11/24/21 14:34 [From DEPAKOTE] S haloperidol [From Haldol] Allergy Intermediate DYSTONIC Verified 11/24/21 14:34 REACTION Assessment & Plan Assessment & Plan (1) Schizoaffective disorder: Status: Acute Code(s): F25.9 - Schizoaffective disorder, unspecified Assessment and Plan: continues really quite manic and disorganized, inc clonazepam and add prn of olanzapine for psychosis already on max seroquel Plan 12/03: continue home meds for now. CV rejected as pt unable to appreciate the circumstances of his admission. will need commitment and benedicto's order. T/C restarting clozaril and lithium, on which pt did well for many years, reportedly. tegretol increased from 400 BID to 600 BID at admission. 12/04: klonopin 0.5/0.5/1 reinstated 12/04 (outpt provider had started it 11/25 at 1 mg TID). magic mouthwash started for oral ulcers. 12/05: slept well last night, still pressured and disorganized. continue current mgmt. 12/08: 12b up, applied for commitment and meds. making sexually inappropriate comments/suggestions to staff, threatening violence and toward male peer. 12/09: same presentation as yesterday. started lithium 450 mg BID today. 12/10: no change in presentation, compliant with lithium. 12/11: DC prazosin to see if B/L pedal edema decreases. DC pravachol as pt is refusing it. order lac-hydrin for plantar fissure. otherwise continue previous mgmt. perhaps slight decrease in pressure and disorganization. 12/12: pedal edema no worse, perhaps better. no GI side effects from lithium. fissure looks improved with cream. check lithium, tegretol, associated labs on wednesday (ordered). titrate lithium as indicated. 12/13 pt manic, disorganized, intrusive, blaming, threatening (told writer editor someone would come over and break his neck) -consider switching to Zyprexa from seroquel 12/14 her is manic, intrusive irritable, grandiose [place] level subtherapeutic; however patient is very anxious about this medication causing side effects and at this time writer editor thinks it might be better to leave it is current dose since patient continues to take it and trying to increase it may very well cause him to refuse it altogether; he is also on Tegretol. Perhaps switching antipsychotics to Zyprexa is warranted. Patient says he has never taken Zyprexa before. Patient typically knows his medication history however usually when someone gets on clozapine it is because most other medications have not worked. [place] has just reached at steady state so will hold off making medication adjustments right now to see if there can be any further benefit observed from currently lithium dose and medication regimen. 12/15 no change; clonazepam at started off and was not restarted. Patient did take p.o. laxatives and had a bowel movement says he feels better. 12/16: increase tegretol from 600 BID to 600/800 tonight, as level around 7. lithium sub-therapeutic but pt resistant to increase, will see how much better he can get on higher tegretol dosing. T/C switching anti-psychotic to zyprexa, as pt has done well on clozaril in the past. TEDs obtained for pedal edema. 12/17: no change in mgmt. presentation not substantially changed. some agitation today. 12/18: presentation essentially unchanged. no agitation today, sleeping late morning. 12/19: Assessed for pedal edema, spoke with hospitalist, BNP, BMP wnl, venous doppler wnl. Per hospitalist, continue with TEDs, may consider low dose lasix. 12/20: stable presentation. continue current mgmt. check tegretol level about a week after dose increase. trending more calm than earlier in his stay but remains very psychotic. T/C trial of olanzapine. I spent ___15___ minutes with the patient and/or on the patient floor today, greater than?50% of which was spent counseling/coordinating care. Reason for contiued inpatient stay Substantial Risk for: harm to self, harm to others, inability to function and rapid decompensation
[2021-12-20] MEDS: Milk of Magnesia 30 ML ORAL.SUSP PO (15:28)
[2021-12-20 20:33] VITALS: BP 139/73; PULSE 78; RESP 18; TEMP 37.1; O2SAT 100
[2021-12-20 22:48] VITALS: BP 145/77; PULSE 81; RESP 18; TEMP 36.6; O2SAT 98
[2021-12-20] MEDS: Simethicone 80 MG TAB.CHEW PO (22:49)
[2021-12-20] MEDS: traZODone HCL 50 MG TABLET 150 MG PO (22:50)
[2021-12-20] MEDS: traZODone HCL 50 MG TABLET PO (22:50)
[2021-12-20] MEDS: QUEtiapine Fumarate 400 MG TABLET PO (22:51)
[2021-12-20] MEDS: Prazosin HCL 1 MG CAPSULE 2 MG PO (22:52)
[2021-12-20] MEDS: Tamsulosin HCL 0.4 MG CAPSULE PO (22:53)
[2021-12-21] MEDS: Nicotine Polacrilex 2 MG GUM 4 MG BUCCAL ×5 (00:20→20:16)
[2021-12-21 08:05] VITALS: BP 117/62; PULSE 70; RESP 18; TEMP 36.8; O2SAT 98
[2021-12-21] MEDS: Acetaminophen 325 MG TABLET 650 MG PO ×2 (10:30→18:36)
[2021-12-21] MEDS: Perphenazine 8 MG TABLET 16 MG PO ×3 (10:31→20:15)
[2021-12-21] MEDS: QUEtiapine Fumarate 200 MG TABLET PO ×2 (10:31→14:53)
[2021-12-21] MEDS: hydrOXYzine HCL 50 MG TABLET PO (10:31)
[2021-12-21] MEDS: Ascorbic Acid 250 MG TABLET PO (10:31)
[2021-12-21] MEDS: carBAMazepine ER 200 MG TAB.ER.12H 800 MG PO ×2 (10:31→20:15)
[2021-12-21] MEDS: Lithium Carbonate ER 450 MG TABLET.ER PO (10:31)
[2021-12-21] MEDS: Vitamin E (Dl,Tocopheryl Acet) 180 MG (400 UNIT) CAPSULE PO ×2 (10:31→20:16)
[2021-12-21] MEDS: clonazePAM 1 MG TABLET PO ×3 (10:31→20:16)
[2021-12-21] MEDS: OLANZapine 5 MG TABLET PO (10:31)
[2021-12-21] MEDS: Famotidine 20 MG TABLET PO ×2 (10:32→20:15)
[2021-12-21 11:02] LABS: COVID-19 Test Positive (Negative); IDNOW Serial# 55D5AD1C
[2021-12-21] MEDS: Throat Lozenge, Medicated LOZENGE 1 LOZENGE MUCOUS MEM ×2 (11:05→18:45)
[2021-12-21] MEDS: Fluticasone/Vilanterol 100/25 BLST.W.DEV 1 PUFF INHALE (11:05)
[2021-12-21 13:26] VITALS: BP 93/54; PULSE 74; RESP 17; TEMP 36.7; O2SAT 94
--- NOTE | 2021-12-21 14:53 | P.PNPSI_ITS ---
Subjective Subjective Date of Service: 12/21/21 Reason For Visit: psychosis Interim History: sleeping in his room, easily rousable. shows MD his foot. swollen, red, tender RLE. denies other problems, no other questions. per staff COVID POS. possible right foot cellulitis. slept 5.5 hours pleasant and not hyperverbal. satting 94% on RA. Mental Status Exam Mental Status Exam Narrative: sleeping in his room. behavior is cooperative, not agitated; dressed in hospital carlin, adequate hygiene; affect normo-intense, non-labile; Speech incr rate, decr loudness. nml prosody, incr latency; thought process largely organized; no SI/HI/AVH expressed. Patients insight and judgment are impaired. Diagnostics Vital Signs (24Hr): Vital Signs - 24 hr 12/20/21 22:48 12/20/21 20:33 12/21/21 08:05 Temperature 97.8 F 98.7 F 98.3 F Pulse Rate 81 78 70 Respiratory Rate 18 18 18 Blood Pressure 145/77 H 139/73 117/62 Pulse Oximetry 98 100 98 Oxygen Delivery Method Room Air Room Air Room Air 12/21/21 13:26 Temperature 98.1 F Pulse Rate 74 Respiratory Rate 17 Blood Pressure 93/54 L Pulse Oximetry 94 Oxygen Delivery Method Room Air BMI result Body Mass Index 30.3 Labs Results: 12/14/21 07:58 12/19/21 18:51 Labs: Laboratory Results - last 48 hr 12/19/21 12/19/21 12/21/21 18:51 18:51 10:18 Sodium 141 Potassium 4.3 Chloride 106 Carbon Dioxide 28 Anion Gap 11 L BUN 15 Creatinine 0.95 Estim Creat Clear Calc 123.2 Estimated GFR > 60 Random Glucose 168 H D Calcium 8.5 D B-Natriuretic Peptide 21 COVID-19 (CARLY) Positive A COVID-19 Clin Com See Note Imaging Radiology Impressions: ITS Impressions Venous Duplex 12/19/21 20:16 IMPRESSION: No DVT demonstrated in the bilateral lower extremity. Medications Medications Current Medications Acetaminophen (Acetaminophen 325 Mg Tablet) 650 mg PO Q6H PRN PRN Reason: Headache/Pain Mild Scale (1-3) Last Admin: 12/21/21 10:30 Dose: 650 mg Al Hydroxide/Mg Hydroxide (Magnesium Hydrox/Alum Hydrox 30 Ml Oral.Susp) 30 ml PO Q6H PRN PRN Reason: Heartburn/Nausea Last Admin: 12/10/21 19:22 Dose: 30 ml Albuterol Sulfate (Albuterol Sulfate 90 Mcg 8 Gm Inhaler) 2 puff INHALE Q4H PRN PRN Reason: shortness of breath or wheezing Last Admin: 12/19/21 20:36 Dose: 2 puff Artificial Tears (Artificial Tears 15 Ml Drops) 2 drop EYE-BOTH Q4H PRN PRN Reason: Dry Eyes Last Admin: 12/20/21 22:46 Dose: 2 drop Ascorbic Acid (Ascorbic Acid 250 Mg Tablet) 250 mg PO DAILY [facility] Last Admin: 12/21/21 10:31 Dose: 250 mg Benzocaine (Throat Lozenge, Medicated Lozenge) 1 lozenge MUCOUS MEM Q1H PRN PRN Reason: Sore Throat Last Admin: 12/21/21 11:05 Dose: 1 lozenge Bisacodyl (Bisacodyl 10 Mg Supp.Rect) 10 mg [place] BEDTIME PRN PRN Reason: Constipation Last Admin: 12/06/21 21:14 Dose: 10 mg Carbamazepine (Carbamazepine Er 200 Mg Tab.Er.12h) 800 mg PO BEDTIME [facility] Last Admin: 12/20/21 22:51 Dose: 800 mg Carbamazepine (Carbamazepine Er 200 Mg Tab.Er.12h) 800 mg PO DAILY [facility] Last Admin: 12/21/21 10:31 Dose: 800 mg Clonazepam (Clonazepam 1 Mg Tablet) 1 mg PO TID [facility] Last Admin: 12/21/21 10:31 Dose: 1 mg Famotidine (Famotidine 20 Mg Tablet) 20 mg PO BID [facility] Last Admin: 12/21/21 10:32 Dose: 20 mg Fluticasone/Vilanterol (Fluticasone/Vilanterol 100/25 Blst.W.Dev) 1 puff INHALE DAILY [facility] Last Admin: 12/21/21 11:05 Dose: 1 puff Hydroxyzine HCl (Hydroxyzine Hcl 50 Mg Tablet) 50 mg PO Q6H PRN PRN Reason: Anxiety Last Admin: 12/21/21 10:31 Dose: 50 mg Lactic Acid (Ammonium Lactate 12 % Lotion 226 Gm Bottle) 1 appl TOPICAL BID [facility]; Protocol Last Admin: 12/21/21 10:32 Dose: Not Given Lidocaine/Diphenhydr/Alum/Mg/Simeth (Mag&Al/Sim/Diphenhyd/Lidocaine 10 Ml Oral.Susp) 10 ml PO Q4H PRN; Protocol PRN Reason: oral mucous membrane ulcer jeremiah Last Admin: 12/20/21 02:20 Dose: 10 ml Amasa Carbonate (Amasa Carbonate Er 450 Mg Tablet.Er) 450 mg PO BID [facility] Last Admin: 12/21/21 10:31 Dose: 450 mg Magnesium Hydroxide (Milk Of Magnesia 30 Ml Oral.Susp) 30 ml PO DAILY PRN PRN Reason: Constipation Last Admin: 12/20/21 15:28 Dose: 30 ml Nicotine Polacrilex (Nicotine Polacrilex 2 Mg Gum) 4 mg BUCCAL Q2H PRN PRN Reason: Nicotine Cravings Last Admin: 12/21/21 07:42 Dose: 4 mg Olanzapine (Olanzapine 5 Mg Tablet) 5 mg PO Q4H PRN PRN Reason: ginny/psychosis Last Admin: 12/21/21 10:31 Dose: 5 mg Perphenazine (Perphenazine 8 Mg Tablet) 16 mg PO TID [facility] Last Admin: 12/21/21 10:31 Dose: 16 mg Prazosin HCl (Prazosin Hcl 1 Mg Capsule) 2 mg PO BEDTIME [facility]; Protocol Last Admin: 12/20/21 22:52 Dose: 2 mg Psyllium Hydrophilic Mucilloid (Psyllium Seed 3.4 Gm Powd.Pack) 3.4 gm PO BID [facility] Last Admin: 12/21/21 10:31 Dose: 3.4 gm Quetiapine Fumarate (Quetiapine Fumarate 200 Mg Tablet) 200 mg PO BID@0900,1400 [facility] Last Admin: 12/21/21 10:31 Dose: 200 mg Quetiapine Fumarate (Quetiapine Fumarate 400 Mg Tablet) 400 mg PO BEDTIME [facility] Last Admin: 12/20/21 22:51 Dose: 400 mg Simethicone (Simethicone 80 Mg Tab.Chew) 80 mg PO QIDWMHS PRN PRN Reason: flatulence Last Admin: 12/20/21 22:49 Dose: 80 mg Tamsulosin HCl (Tamsulosin Hcl 0.4 Mg Capsule) 0.4 mg PO BEDTIME [facility] Last Admin: 12/20/21 22:53 Dose: 0.4 mg Trazodone HCl (Trazodone Hcl 50 Mg Tablet) 150 mg PO BEDTIME [facility] Last Admin: 12/20/21 22:50 Dose: 150 mg Trazodone HCl (Trazodone Hcl 50 Mg Tablet) 50 mg PO BEDTIME PRN PRN Reason: Insomnia Last Admin: 12/20/21 22:50 Dose: 50 mg Vitamin E (Vitamin E (Dl,Tocopheryl Acet) 180 Mg (400 Unit) Capsule) 180 mg PO BID [facility] Last Admin: 12/21/21 10:31 Dose: 180 mg Allergies Allergies Allergy/AdvReac Type Severity Reaction Status Date / Time divalproex sodium Allergy Severe PANCREATITI Verified 11/24/21 14:34 [From DEPAKOTE] S haloperidol [From Haldol] Allergy Intermediate DYSTONIC Verified 11/24/21 14:34 REACTION Assessment & Plan Assessment & Plan (1) Schizoaffective disorder: Status: Acute Code(s): F25.9 - Schizoaffective disorder, unspecified Assessment and Plan: continues really quite manic and disorganized, inc clonazepam and add prn of olanzapine for psychosis already on max seroquel Plan 12/03: continue home meds for now. CV rejected as pt unable to appreciate the circumstances of his admission. will need commitment and benedicto's order. T/C restarting clozaril and lithium, on which pt did well for many years, reportedly. tegretol increased from 400 BID to 600 BID at admission. 12/04: klonopin 0.5/0.5/1 reinstated 12/04 (outpt provider had started it 11/25 at 1 mg TID). magic mouthwash started for oral ulcers. 12/05: slept well last night, still pressured and disorganized. continue current mgmt. 12/08: 12b up, applied for commitment and meds. making sexually inappropriate comments/suggestions to staff, threatening violence and toward male peer. 12/09: same presentation as yesterday. started lithium 450 mg BID today. 12/10: no change in presentation, compliant with lithium. 12/11: DC prazosin to see if B/L pedal edema decreases. DC pravachol as pt is refusing it. order lac-hydrin for plantar fissure. otherwise continue previous mgmt. perhaps slight decrease in pressure and disorganization. 12/12: pedal edema no worse, perhaps better. no GI side effects from lithium. fissure looks improved with cream. check lithium, tegretol, associated labs on wednesday (ordered). titrate lithium as indicated. 12/13 pt manic, disorganized, intrusive, blaming, threatening (told resume writer some one would come over and break his neck) -consider switching to Zyprexa from seroquel 12/14 her is manic, intrusive irritable, grandiose Amasa level subtherapeutic; however patient is very anxious about this medication causing side effects and at this time resume writer thinks it might be better to leave it is current dose since patient continues to take it and trying to increase it may very well cause him to refuse it altogether; he is also on Tegretol. Perhaps switching antipsychotics to Zyprexa is warranted. Patient says he has never taken Zyprexa before. Patient typically knows his medication history however usually when someone gets on clozapine it is because most other medications have not worked. Amasa has just reached at steady state so will hold off making medication adjustments right now to see if there can be any further benefit observed from currently lithium dose and medication regimen. 12/15 no change; clonazepam at started off and was not restarted. Patient did take p.o. laxatives and had a bowel movement says he feels better. 12/16: increase tegretol from 600 BID to 600/800 tonight, as level around 7. lithium sub-therapeutic but pt resistant to increase, will see how much better he can get on higher tegretol dosing. T/C switching anti-psychotic to zyprexa, as pt has done well on clozaril in the past. TEDs obtained for pedal edema. 12/17: no change in mgmt. presentation not substantially changed. some agitation today. 12/18: presentation essentially unchanged. no agitation today, sleeping late morning. 12/19: Assessed for pedal edema, spoke with hospitalist, BNP, BMP wnl, venous doppler wnl. Per hospitalist, continue with TEDs, may consider low dose lasix. 12/20: stable presentation. continue current mgmt. check tegretol level about a week after dose increase. trending more calm than earlier in his stay but remains very psychotic. T/C trial of olanzapine. 12/21: taper and DC lithium and it appears to be having unsustainable physical side effects (B/L LE edema, now possibly with cellulitis). also tested COVID POS today, satting mid 902 on RA. hospitalist consult placed for eval of COVID severity and R/O cellulitis. T/C olanzapine trial once lithium has been DCed. I spent ___25___ minutes with the patient and/or on the patient floor today, greater than?50% of which was spent counseling/coordinating care. Reason for contiued inpatient stay Substantial Risk for: harm to self, harm to others, inability to function and rapid decompensation
[2021-12-21 15:03] VITALS: BP 127/65; PULSE 80; RESP 18; TEMP 36.1; O2SAT 100
--- NOTE | 2021-12-21 15:31 | PC.NURSE ---
Cedric slept the large majority of this shift. (8:30 am to 3 pm)This morning near 8am he complained, I don't feel good. VSS. I put his DEBORAH stockings on - bilateral feet, lower legs 3+ pitting edema. Right foot is red, hot to touch, painful to touch. Cedric fell asleep after I put his teds on, slept through breakfast. I woke him to give am meds at which time he c/o sore throat. He had a productive cough with thick yellow mucous. At that time he was swabbed and tested positive for covid. He was moved into a single room at which time he demonstrated unsteady gait and difficulty staying awake. Cedric was unable to participate in contact meeting due to illness. Dr Jimenez informed of all above information
--- NOTE | 2021-12-21 16:43 | HO.HSGERICON ---
History of Present Illness Data of Consult Service Date: 12/21/21 Primary Care Provider: Unknown Physician HPI Reason for consult: concern for R foot infection, symptomatic Covid-19 infection 51yo M with bipolar-type schizoaffective disorder admitted to on 12/03/21. Restarted on lithium and developed pedal edema. Using TEDs. Developed red area on dorsum of R foot today that is painful. Denies fevers or purulent drainage. No hx of MRSA infection or other abscesses, though he is not the best historian. Denies chills. Not a diabetic. He also tested positive for Covid-19 infection today. He's been exposed to other patients on with Covid-19. He tested negative on 12/19/21. Last night he develoepd a sore throat. Denies fever, chills, cough, or dyspnea. SaO2 on room air is 100%. He does have COPD. Review of Systems Review of Systems: Yes all other systems are reviewed and are negative [facility] Medical History Anxiety COPD (chronic obstructive pulmonary disease) Difficulty sleeping Elevated cholesterol GERD (gastroesophageal reflux disease) Hx of pancreatitis Hyperlipidemia Obesity Schizoaffective disorder Smoker Family History Father Diabetes Mother No problems noted. Paternal Grandfather Gastric cancer Surgical History History of bilateral cataract extraction History of bunionectomy History of excision of mass Hx of colonoscopy Social History Household Members: None Housing: Apartment Are you a primary home care liaison to a significant other at home: No Do you presently have visiting nurse or other home services: No Unable to assess alcohol history related to: Unknown Alcohol intake: current Alcohol intake frequency: a few times a week Alcohol type: beer Patient Tobacco Use Status: Former Tobacco user Quit Date: 12/2020 Tobacco use type: Cigarette Cigarettes Per Day: 0.5 Years Smoked: unknown Smoked in Last 30 Days: No e-Cigarette/Vaping Use: Never Used Patient Interested in Nicotine Replacement: No Patient Given Instructions on How to Stop Smoking: Yes Date Education Initiated: 12/02/21 Second Hand Smoke Exposure: No Use of substances other than those prescribed or required for medical reasons: No Currently Displaying Signs/Symptoms of Drug Intoxication Withdrawal: No Any prior treatment program specific to substance use: No Have you been hit, kicked, punched, or otherwise hurt by someone within the past year? If so, by whom?: No Do you feel safe in your current relationship?: No Current Relationship Is there a partner from a previous relationship who is making you feel unsafe now?: No Are you made to feel afraid or neglected: No Advance Directives: No Advance Directives Information Provided: No Guardian: No Do you have thoughts of harming others: None Do you have a plan to hurt others: No Plan Recently lost weight without trying: No Eating poorly because of decreased appetite: No Nutrition Risks: No Nutritional Risk Poor oral hygiene: Yes service: No Current occupational status: disabled Sexual orientation: Straight/Heterosexual Cognitive needs: No Hearing needs: No Vision needs: No Meds Allergies Allergy/AdvReac Type Severity Reaction Status Date / Time divalproex sodium Allergy Severe PANCREATITI Verified 11/24/21 14:34 [From DEPAKOTE] S haloperidol [From Haldol] Allergy Intermediate DYSTONIC Verified 11/24/21 14:34 REACTION Active Medications: Current Medications Acetaminophen (Acetaminophen 325 Mg Tablet) 650 mg PO Q6H PRN PRN Reason: Headache/Pain Mild Scale (1-3) Last Admin: 12/21/21 10:30 Dose: 650 mg Al Hydroxide/Mg Hydroxide (Magnesium Hydrox/Alum Hydrox 30 Ml Oral.Susp) 30 ml PO Q6H PRN PRN Reason: Heartburn/Nausea Last Admin: 12/10/21 19:22 Dose: 30 ml Albuterol Sulfate (Albuterol Sulfate 90 Mcg 8 Gm Inhaler) 2 puff INHALE Q4H PRN PRN Reason: shortness of breath or wheezing Last Admin: 12/19/21 20:36 Dose: 2 puff Artificial Tears (Artificial Tears 15 Ml Drops) 2 drop EYE-BOTH Q4H PRN PRN Reason: Dry Eyes Last Admin: 12/20/21 22:46 Dose: 2 drop Ascorbic Acid (Ascorbic Acid 250 Mg Tablet) 250 mg PO DAILY [facility] Last Admin: 12/21/21 10:31 Dose: 250 mg Benzocaine (Throat Lozenge, Medicated Lozenge) 1 lozenge MUCOUS MEM Q1H PRN PRN Reason: Sore Throat Last Admin: 12/21/21 11:05 Dose: 1 lozenge Bisacodyl (Bisacodyl 10 Mg Supp.Rect) 10 mg [place] BEDTIME PRN PRN Reason: Constipation Last Admin: 12/06/21 21:14 Dose: 10 mg Carbamazepine (Carbamazepine Er 200 Mg Tab.Er.12h) 800 mg PO BEDTIME [facility]Y Last Admin: 12/20/21 22:51 Dose: 800 mg Carbamazepine (Carbamazepine Er 200 Mg Tab.Er.12h) 800 mg PO DAILY [facility] Last Admin: 12/21/21 10:31 Dose: 800 mg Clonazepam (Clonazepam 1 Mg Tablet) 1 mg PO TID [facility] Last Admin: 12/21/21 14:53 Dose: 1 mg Famotidine (Famotidine 20 Mg Tablet) 20 mg PO BID [facility] Last Admin: 12/21/21 10:32 Dose: 20 mg Fluticasone/Vilanterol (Fluticasone/Vilanterol 100/25 Blst.W.Dev) 1 puff INHALE DAILY [facility] Last Admin: 12/21/21 11:05 Dose: 1 puff Hydroxyzine HCl (Hydroxyzine Hcl 50 Mg Tablet) 50 mg PO Q6H PRN PRN Reason: Anxiety Last Admin: 12/21/21 10:31 Dose: 50 mg Lactic Acid (Ammonium Lactate 12 % Lotion 226 Gm Bottle) 1 appl TOPICAL BID [facility]; Protocol Last Admin: 12/21/21 10:32 Dose: Not Given Lidocaine/Diphenhydr/Alum/Mg/Simeth (Mag&Al/Sim/Diphenhyd/Lidocaine 10 Ml Oral.Susp) 10 ml PO Q4H PRN; Protocol PRN Reason: oral mucous membrane ulcer jeremiah Last Admin: 12/20/21 02:20 Dose: 10 ml [place] Carbonate ([place] Carbonate Er 300 Mg Tablet.Er) 300 mg PO BID [facility] Magnesium Hydroxide (Milk Of Magnesia 30 Ml Oral.Susp) 30 ml PO DAILY PRN PRN Reason: Constipation Last Admin: 12/20/21 15:28 Dose: 30 ml Nicotine Polacrilex (Nicotine Polacrilex 2 Mg Gum) 4 mg BUCCAL Q2H PRN PRN Reason: Nicotine Cravings Last Admin: 12/21/21 14:53 Dose: 4 mg Olanzapine (Olanzapine 5 Mg Tablet) 5 mg PO Q4H PRN PRN Reason: ginny/psychosis Last Admin: 12/21/21 10:31 Dose: 5 mg Perphenazine (Perphenazine 8 Mg Tablet) 16 mg PO TID [facility] Last Admin: 12/21/21 14:53 Dose: 16 mg Prazosin HCl (Prazosin Hcl 1 Mg Capsule) 2 mg PO BEDTIME [facility]; Protocol Last Admin: 12/20/21 22:52 Dose: 2 mg Psyllium Hydrophilic Mucilloid (Psyllium Seed 3.4 Gm Powd.Pack) 3.4 gm PO BID [facility] Last Admin: 12/21/21 10:31 Dose: 3.4 gm Quetiapine Fumarate (Quetiapine Fumarate 200 Mg Tablet) 200 mg PO BID@0900,1400 [facility] Last Admin: 12/21/21 14:53 Dose: 200 mg Quetiapine Fumarate (Quetiapine Fumarate 400 Mg Tablet) 400 mg PO BEDTIME [facility] Last Admin: 12/20/21 22:51 Dose: 400 mg Simethicone (Simethicone 80 Mg Tab.Chew) 80 mg PO QIDWMHS PRN PRN Reason: flatulence Last Admin: 12/20/21 22:49 Dose: 80 mg Tamsulosin HCl (Tamsulosin Hcl 0.4 Mg Capsule) 0.4 mg PO BEDTIME [facility] Last Admin: 12/20/21 22:53 Dose: 0.4 mg Trazodone HCl (Trazodone Hcl 50 Mg Tablet) 150 mg PO BEDTIME [facility] Last Admin: 12/20/21 22:50 Dose: 150 mg Trazodone HCl (Trazodone Hcl 50 Mg Tablet) 50 mg PO BEDTIME PRN PRN Reason: Insomnia Last Admin: 12/20/21 22:50 Dose: 50 mg Vitamin E (Vitamin E (Dl,Tocopheryl Acet) 180 Mg (400 Unit) Capsule) 180 mg PO BID [facility] Last Admin: 12/21/21 10:31 Dose: 180 mg Results Labs CBC and Chem 7: 12/14/21 07:58 12/19/21 18:51 Labs: Laboratory Results - last 24 hr 12/21/21 10:18 COVID-19 (CARLY) Positive A COVID-19 Clin Com See Note Assessment and Plan (1) Cellulitis: Status: Acute (2) COVID-19: Status: Acute Plan 51yo M with COPD, HLD, obesity, BPH, ex-smoker, bipolar-type schizoaffective disorder admitted to [facility]. Developed infection of R foot yesterday as well as symptomatic Covid-19 infection without hypoxia. # nonpurulent cellulitis - doxycycline x7d. no need for blood culture. monitor clinically for improvement. # Covid-19 infection - not hypoxic; no steroids indicated. Paxlovid contraindicated by use of carbamezapine. can give 3 days of IV remdesivir as alternative. Monitor SaO2 qshift. beginning 12/20/21, isolation x5d then mask-wearing x5d Thank you for this consultation. We are signing off the case at this time. Please communicate with us if any new medical questions arise. Physical Exam Vital Signs: Last Vital Signs Temp 96.9 F 12/21/21 15:03 Pulse 80 12/21/21 15:03 Resp 188 H 12/21/21 15:03 BP 127/65 12/21/21 15:03 Pulse Ox 100 12/21/21 15:03 O2 Del Method 12/21/21 15:03 BMI result Body Mass Index 30.3 Gen: in no acute distress HEENT: sclera anicteric, moist mucus membranes Neck: supple Lungs: clear to auscultation bilaterally Heart: regular rate and rhythm, no murmurs Abd: soft, non-tender, non-distended Ext: 1+ bilateral extremity edema Skin: warm/well-perfused; on the dorsum of the R foot is an area of edema, induration, and tenderness without fluctuance Neuro: alert, no focal findings Psych: impaired insight Neuro Cranial nerves: Yes CN's II-XII intact bilaterally
[2021-12-21] MEDS: Remdesivir 200 MG in 0.9 % Sodium Chloride 210 ML 105 MG IV (18:13)
[2021-12-21 18:34] VITALS: RESP 19; TEMP 37.2; O2SAT 91
--- NOTE | 2021-12-21 18:37 | PC.NURSE ---
Patient has spent the whole day in bed - atypical for him. He ate breakfast, declined lunch and dinner also atypical for him. Seen by Dr Puga, IV antiviral started. During IV access placement he was noted coughing. O2 sat 91% and Temp 99. He is diaphoretic. Dr Jimenez informed. He is in communication with Dr Puga.
[2021-12-21] MEDS: Lithium Carbonate ER 300 MG TABLET.ER PO (20:15)
[2021-12-21] MEDS: traZODone HCL 50 MG TABLET 150 MG PO (20:16)
[2021-12-21] MEDS: Tamsulosin HCL 0.4 MG CAPSULE PO (20:16)
[2021-12-21] MEDS: QUEtiapine Fumarate 400 MG TABLET PO (20:16)
[2021-12-21] MEDS: Prazosin HCL 1 MG CAPSULE 2 MG PO (20:16)
[2021-12-21 21:00] VITALS: BP 107/56; PULSE 80; RESP 20; TEMP 37.1; O2SAT 90
--- NOTE | 2021-12-22 00:41 | PC.NURSE ---
12/21/21 - 2099 spO2 at 90%. Pt able to sit up w/assistance and eat some of his dinner. Took PO meds, drank 12oz po fluids. Later on assessment, spO2 87-90%, RR 24, pt drowsy but rouses to voice. Hospitalist consulted. While awake, spO2 91-93%, advised to monitor and may need to start O2 if it stays below 90%. RR while asleep 26.
[2021-12-22 01:46] VITALS: O2SAT 91
[2021-12-22] MEDS: Nicotine Polacrilex 2 MG GUM 4 MG BUCCAL ×8 (02:36→21:42)
[2021-12-22] MEDS: Fluticasone/Vilanterol 100/25 BLST.W.DEV 1 PUFF INHALE (08:02)
[2021-12-22] MEDS: carBAMazepine ER 200 MG TAB.ER.12H 800 MG PO ×2 (08:03→21:28)
[2021-12-22] MEDS: Vitamin E (Dl,Tocopheryl Acet) 180 MG (400 UNIT) CAPSULE PO ×2 (08:04→21:28)
[2021-12-22] MEDS: Lithium Carbonate ER 300 MG TABLET.ER PO (08:04)
[2021-12-22] MEDS: clonazePAM 1 MG TABLET PO ×3 (08:04→21:27)
[2021-12-22] MEDS: QUEtiapine Fumarate 200 MG TABLET PO ×2 (08:04→15:11)
[2021-12-22] MEDS: Ascorbic Acid 250 MG TABLET PO (08:04)
[2021-12-22] MEDS: Famotidine 20 MG TABLET PO ×2 (08:05→21:27)
[2021-12-22] MEDS: Perphenazine 8 MG TABLET 16 MG PO ×3 (08:05→21:29)
[2021-12-22 08:19] VITALS: BP 123/70; PULSE 80; RESP 18; TEMP 36.9; O2SAT 94
[2021-12-22 12:19] VITALS: BP 115/66; PULSE 75; RESP 19; TEMP 35.7; O2SAT 94
[2021-12-22] MEDS: Acetaminophen 325 MG TABLET 650 MG PO ×2 (12:21→20:12)
--- NOTE | 2021-12-22 14:20 | HO.PSYCHPN ---
Subjective Subjective Date of Service: 12/22/21 Reason For Visit: psychosis Interim History: found resting in bed, IV access placed. calm, cooperative. less voluble and tangential today. notes decrease in lithium dosing, MD explains taper, pt thanks MD for that. c/o rhinorrhea and aches/pains. MD offers to start ibuprofen, as lithium is being tapered and is currently at a very low dose. no other complaints or requests. Mental Status Exam Mental Status Exam Narrative: supine on his bed. behavior is cooperative, not agitated; dressed in hospital carlin, adequate hygiene; affect normo-intense, non-labile; Speech incr rate, nml loudness. nml prosody, latency; thought process largely organized; no SI/HI/AVH expressed. Patients insight and judgment are impaired. Diagnostics Vital Signs (24Hr): Vital Signs - 24 hr 12/21/21 15:03 12/21/21 18:34 12/21/21 21:00 Temperature 96.9 F 99.0 F 98.8 F Pulse Rate 80 80 Respiratory Rate 18 19 20 Blood Pressure 127/65 107/56 L Pulse Oximetry 100 91 L 90 L Oxygen Delivery Method Room Air Room Air Room Air 12/22/21 01:46 12/22/21 08:19 12/22/21 12:19 Temperature 98.5 F 96.3 F L Pulse Rate 80 75 Respiratory Rate 18 19 Blood Pressure 123/70 115/66 Pulse Oximetry 91 L 94 94 Oxygen Delivery Method Room Air Room Air Room Air BMI result Body Mass Index 30.3 Labs Results: 12/14/21 07:58 12/19/21 18:51 Labs: Laboratory Results - last 48 hr 12/21/21 10:18 COVID-19 ([facility]) Positive A COVID-19 Clin Com See Note Imaging Radiology Impressions: ITS Impressions Venous Duplex 12/19/21 20:16 IMPRESSION: No DVT demonstrated in the bilateral lower extremity. Medications Medications Current Medications Acetaminophen (Acetaminophen 325 Mg Tablet) 650 mg PO Q6H PRN PRN Reason: Headache/Pain Mild Scale (1-3) Last Admin: 12/22/21 12:21 Dose: 650 mg Al Hydroxide/Mg Hydroxide (Magnesium Hydrox/Alum Hydrox 30 Ml Oral.Susp) 30 ml PO Q6H PRN PRN Reason: Heartburn/Nausea Last Admin: 12/10/21 19:22 Dose: 30 ml Albuterol Sulfate (Albuterol Sulfate 90 Mcg 8 Gm Inhaler) 2 puff INHALE Q4H PRN PRN Reason: shortness of breath or wheezing Last Admin: 12/19/21 20:36 Dose: 2 puff Artificial Tears (Artificial Tears 15 Ml Drops) 2 drop EYE-BOTH Q4H PRN PRN Reason: Dry Eyes Last Admin: 12/20/21 22:46 Dose: 2 drop Ascorbic Acid (Ascorbic Acid 250 Mg Tablet) 250 mg PO DAILY [facility] Last Admin: 12/22/21 08:04 Dose: 250 mg Benzocaine (Throat Lozenge, Medicated Lozenge) 1 lozenge MUCOUS MEM Q1H PRN PRN Reason: Sore Throat Last Admin: 12/21/21 18:45 Dose: 1 lozenge Bisacodyl (Bisacodyl 10 Mg Supp.Rect) 10 mg NC BEDTIME PRN PRN Reason: Constipation Last Admin: 12/06/21 21:14 Dose: 10 mg Carbamazepine (Carbamazepine Er 200 Mg Tab.Er.12h) 800 mg PO BEDTIME [facility] Last Admin: 12/21/21 20:15 Dose: 800 mg Carbamazepine (Carbamazepine Er 200 Mg Tab.Er.12h) 800 mg PO DAILY [facility] Last Admin: 12/22/21 08:03 Dose: 800 mg Clonazepam (Clonazepam 1 Mg Tablet) 1 mg PO TID [facility] Last Admin: 12/22/21 08:04 Dose: 1 mg Doxycycline Hyclate (Doxycycline Hyclate 100 Mg Tablet) 100 mg PO Q12H [facility] Stop: 12/28/21 06:01 Last Admin: 12/22/21 05:32 Dose: 100 mg Famotidine (Famotidine 20 Mg Tablet) 20 mg PO BID [facility] Last Admin: 12/22/21 08:05 Dose: 20 mg Fluticasone/Vilanterol (Fluticasone/Vilanterol 100/25 Blst.W.Dev) 1 puff INHALE DAILY [facility] Last Admin: 12/22/21 08:02 Dose: 1 puff Hydroxyzine HCl (Hydroxyzine Hcl 50 Mg Tablet) 50 mg PO Q6H PRN PRN Reason: Anxiety Last Admin: 12/21/21 10:31 Dose: 50 mg Remdesivir 100 mg/ Sodium (Chloride) 230 mls @ 115 mls/hr IV Q24H [facility] Stop: 12/23/21 19:59 Ibuprofen (Ibuprofen 600 Mg Tablet) 600 mg PO Q6H PRN PRN Reason: aches and pains Lactic Acid (Ammonium Lactate 12 % Lotion 226 Gm Bottle) 1 appl TOPICAL BID [facility]; Protocol Last Admin: 12/22/21 08:05 Dose: Not Given Lidocaine/Diphenhydr/Alum/Mg/Simeth (Mag&Al/Sim/Diphenhyd/Lidocaine 10 Ml Oral.Susp) 10 ml PO Q4H PRN; Protocol PRN Reason: oral mucous membrane ulcer jeremiah Last Admin: 12/20/21 02:20 Dose: 10 ml [place] Carbonate ([place] Carbonate Er 300 Mg Tablet.Er) 150 mg PO BID [facility] Magnesium Hydroxide (Milk Of Magnesia 30 Ml Oral.Susp) 30 ml PO DAILY PRN PRN Reason: Constipation Last Admin: 12/20/21 15:28 Dose: 30 ml Nicotine Polacrilex (Nicotine Polacrilex 2 Mg Gum) 4 mg BUCCAL Q2H PRN PRN Reason: Nicotine Cravings Last Admin: 12/22/21 13:19 Dose: 4 mg Olanzapine (Olanzapine 5 Mg Tablet) 5 mg PO Q4H PRN PRN Reason: ginny/psychosis Last Admin: 12/21/21 10:31 Dose: 5 mg Perphenazine (Perphenazine 8 Mg Tablet) 16 mg PO TID [facility] Last Admin: 12/22/21 08:05 Dose: 16 mg Prazosin HCl (Prazosin Hcl 1 Mg Capsule) 2 mg PO BEDTIME [facility]; Protocol Last Admin: 12/21/21 20:16 Dose: 2 mg Psyllium Hydrophilic Mucilloid (Psyllium Seed 3.4 Gm Powd.Pack) 3.4 gm PO BID [facility] Last Admin: 12/22/21 08:19 Dose: Not Given Quetiapine Fumarate (Quetiapine Fumarate 200 Mg Tablet) 200 mg PO BID@0900,1400 [facility] Last Admin: 12/22/21 08:04 Dose: 200 mg Quetiapine Fumarate (Quetiapine Fumarate 400 Mg Tablet) 400 mg PO BEDTIME [facility] Last Admin: 12/21/21 20:16 Dose: 400 mg Simethicone (Simethicone 80 Mg Tab.Chew) 80 mg PO QIDWMHS PRN PRN Reason: flatulence Last Admin: 12/20/21 22:49 Dose: 80 mg Tamsulosin HCl (Tamsulosin Hcl 0.4 Mg Capsule) 0.4 mg PO BEDTIME [facility] Last Admin: 12/21/21 20:16 Dose: 0.4 mg Trazodone HCl (Trazodone Hcl 50 Mg Tablet) 150 mg PO BEDTIME [facility] Last Admin: 12/21/21 20:16 Dose: 150 mg Trazodone HCl (Trazodone Hcl 50 Mg Tablet) 50 mg PO BEDTIME PRN PRN Reason: Insomnia Last Admin: 12/20/21 22:50 Dose: 50 mg Vitamin E (Vitamin E (Dl,Tocopheryl Acet) 180 Mg (400 Unit) Capsule) 180 mg PO BID [facility] Last Admin: 12/22/21 08:04 Dose: 180 mg Allergies Allergies Allergy/AdvReac Type Severity Reaction Status Date / Time divalproex sodium Allergy Severe PANCREATITI Verified 11/24/21 14:34 [From DEPAKOTE] S haloperidol [From Haldol] Allergy Intermediate DYSTONIC Verified 11/24/21 14:34 REACTION Assessment & Plan Assessment & Plan (1) Cellulitis: Status: Acute Code(s): L03.90 - Cellulitis, unspecified Assessment and Plan: 51yo M with COPD, HLD, obesity, BPH, ex-smoker, bipolar-type schizoaffective disorder admitted to [facility]. Developed infection of R foot yesterday as well as symptomatic Covid-19 infection without hypoxia. # nonpurulent cellulitis - doxycycline x7d. no need for blood culture. monitor clinically for improvement. (2) COVID-19: Status: Acute Code(s): U07.1 - COVID-19 Assessment and Plan: 51yo M with COPD, HLD, obesity, BPH, ex-smoker, bipolar-type schizoaffective disorder admitted to [facility]. Developed infection of R foot yesterday as well as symptomatic Covid-19 infection without hypoxia. # Covid-19 infection - not hypoxic; no steroids indicated. Paxlovid contraindicated by use of carbamezapine. can give 3 days of IV remdesivir as alternative. Monitor SaO2 qshift. beginning 12/20/21, isolation x5d then mask-wearing x5d (3) Schizoaffective disorder: Status: Acute Code(s): F25.9 - Schizoaffective disorder, unspecified Plan 12/03: continue home meds for now. CV rejected as pt unable to appreciate the circumstances of his admission. will need commitment and benedicto's order. T/C restarting clozaril and lithium, on which pt did well for many years, reportedly. tegretol increased from 400 BID to 600 BID at admission. 12/04: klonopin 0.5/0.5/1 reinstated 12/04 (outpt provider had started it 11/25 at 1 mg TID). magic mouthwash started for oral ulcers. 12/05: slept well last night, still pressured and disorganized.? continue current mgmt. 12/08: 12b up, applied for commitment and meds.? making sexually inappropriate comments/suggestions to staff, threatening violence and toward male peer. 12/09: same presentation as yesterday.? started lithium 450 mg BID today. 12/10: no change in presentation, compliant with lithium. 12/11: DC prazosin to see if B/L pedal edema decreases.? DC pravachol as pt is refusing it.? order lac-hydrin for plantar fissure.? otherwise continue previous mgmt.? perhaps slight decrease in pressure and disorganization. 12/12: pedal edema no worse, perhaps better.? no GI side effects from lithium.? fissure looks improved with cream.? check lithium, tegretol, associated labs on wednesday (ordered).? titrate lithium as indicated. 12/13 pt manic, disorganized, intrusive, blaming, threatening (told radio script writer someone would come over and break his neck) -consider switching to Zyprexa from seroquel 12/14 her is manic, intrusive irritable, grandiose [place] level subtherapeutic; however patient is very anxious about this medication causing side effects and at this time radio script writer thinks it might be better to leave it is current dose since patient continues to take it and trying to increase it may very well cause him to refuse it altogether; he is also on Tegretol.? Perhaps switching antipsychotics to Zyprexa is warranted.? Patient says he has never taken Zyprexa before.? Patient typically knows his medication history however usually when someone gets on clozapine it is because most other medications have not worked.? [place] has just reached at steady state so will hold off making medication adjustments right now to see if there can be any further benefit observed from currently lithium dose and medication regimen. 12/15 no change; clonazepam at started off and was not restarted.? Patient did take p.o. laxatives and had a bowel movement says he feels better. 12/16:? increase tegretol from 600 BID to 600/800 tonight, as level around 7.? lithium sub-therapeutic but pt resistant to increase, will see how much better he can get on higher tegretol dosing.? T/C switching anti-psychotic to zyprexa, as pt has done well on clozaril in the past.? TEDs obtained for pedal edema. 12/17: no change in mgmt.? presentation not substantially changed.? some agitation today. 12/18: presentation essentially unchanged.? no agitation today, sleeping late morning. 12/19: Assessed for pedal edema, spoke with hospitalist, BNP, BMP wnl, venous doppler wnl. Per hospitalist, continue with TEDs, may consider low dose lasix. 12/20: stable presentation.? continue current mgmt.? check tegretol level about a week after dose increase.? trending more calm than earlier in his stay but remains very psychotic.? T/C trial of olanzapine. 12/21:? taper and DC lithium and it appears to be having unsustainable physical side effects (B/L LE edema, now possibly with cellulitis).? also tested COVID POS today, satting mid 902 on RA.? hospitalist consult placed for eval of COVID severity and R/O cellulitis.? T/C olanzapine trial once lithium has been DCed. 12/22: stable, appears medically better than yesterday. continue lithium taper, to 150 BID tonight and tomorrow morning. start ibuprofen for better pain control with COVID. continue antibiotic and antiviral. I spent ___20___ minutes with the patient and/or on the patient floor today, greater than?50% of which was spent counseling/coordinating care. Reason for contiued inpatient stay Substantial Risk for: inability to function and rapid decompensation
[2021-12-22 15:22] VITALS: BP 134/70; PULSE 74; RESP 18; TEMP 35.9; O2SAT 93
[2021-12-22] MEDS: Remdesivir 100 MG in 0.9 % Sodium Chloride 230 ML 115 MG IV (18:42)
[2021-12-22] MEDS: Ibuprofen 600 MG TABLET PO (19:43)
[2021-12-22 20:30] VITALS: BP 120/72; PULSE 74; RESP 18; TEMP 36.4; O2SAT 93
[2021-12-22] MEDS: Lithium Carbonate ER 300 MG TABLET.ER 150 MG PO (21:27)
[2021-12-22] MEDS: Prazosin HCL 1 MG CAPSULE 2 MG PO (21:28)
[2021-12-22] MEDS: traZODone HCL 50 MG TABLET 150 MG PO (21:28)
[2021-12-22] MEDS: Tamsulosin HCL 0.4 MG CAPSULE PO (21:28)
[2021-12-22] MEDS: QUEtiapine Fumarate 400 MG TABLET PO (21:28)
[2021-12-22] MEDS: hydrOXYzine HCL 50 MG TABLET PO (21:28)
[2021-12-23] VITALS: O2SAT 93
[2021-12-23] MEDS: Ibuprofen 600 MG TABLET PO ×3 (01:55→22:10)
[2021-12-23] MEDS: traZODone HCL 50 MG TABLET PO (01:55)
[2021-12-23] MEDS: OLANZapine 5 MG TABLET PO ×2 (01:55→22:09)
[2021-12-23] MEDS: Nicotine Polacrilex 2 MG GUM 4 MG BUCCAL ×7 (01:55→22:37)
[2021-12-23] MEDS: Artificial Tears 15 ML DROPS 2 DROP EYE-BOTH (02:03)
[2021-12-23] MEDS: Throat Lozenge, Medicated LOZENGE 1 LOZENGE MUCOUS MEM (03:04)
[2021-12-23 04:00] VITALS: O2SAT 93
[2021-12-23 08:00] VITALS: BP 142/83; PULSE 75; RESP 16; TEMP 35.7; O2SAT 100
[2021-12-23] MEDS: carBAMazepine ER 200 MG TAB.ER.12H 800 MG PO ×2 (08:59→22:10)
[2021-12-23] MEDS: Vitamin E (Dl,Tocopheryl Acet) 180 MG (400 UNIT) CAPSULE PO ×2 (08:59→22:09)
[2021-12-23] MEDS: Ascorbic Acid 250 MG TABLET PO (08:59)
[2021-12-23] MEDS: QUEtiapine Fumarate 200 MG TABLET PO ×2 (08:59→14:28)
[2021-12-23] MEDS: Lithium Carbonate ER 300 MG TABLET.ER 150 MG PO (09:00)
[2021-12-23] MEDS: clonazePAM 1 MG TABLET PO ×3 (09:00→22:10)
[2021-12-23] MEDS: Perphenazine 8 MG TABLET 16 MG PO ×3 (09:00→22:10)
[2021-12-23] MEDS: Famotidine 20 MG TABLET PO ×2 (09:01→22:09)
[2021-12-23] MEDS: Fluticasone/Vilanterol 100/25 BLST.W.DEV 1 PUFF INHALE (09:01)
[2021-12-23] MEDS: hydrOXYzine HCL 50 MG TABLET PO ×2 (10:53→22:09)
[2021-12-23 12:00] VITALS: O2SAT 99
[2021-12-23] MEDS: Remdesivir 100 MG in 0.9 % Sodium Chloride 230 ML 115 MG IV (17:57)
[2021-12-23 20:00] VITALS: O2SAT 98
[2021-12-23] MEDS: traZODone HCL 50 MG TABLET 150 MG PO (22:09)
[2021-12-23] MEDS: Tamsulosin HCL 0.4 MG CAPSULE PO (22:10)
[2021-12-23] MEDS: Prazosin HCL 1 MG CAPSULE 2 MG PO (22:10)
[2021-12-23] MEDS: QUEtiapine Fumarate 400 MG TABLET PO (22:10)
[2021-12-23 22:40] VITALS: BP 133/79; PULSE 71; RESP 20; TEMP 36.1; O2SAT 99
[2021-12-24] VITALS: O2SAT 94
[2021-12-24] MEDS: Throat Lozenge, Medicated LOZENGE 1 LOZENGE MUCOUS MEM ×2 (03:31→06:56)
[2021-12-24] MEDS: Nicotine Polacrilex 2 MG GUM 4 MG BUCCAL ×6 (03:32→22:17)
[2021-12-24] MEDS: Albuterol Sulfate 90 MCG 8 GM INHALER 2 PUFF INHALE (03:32)
[2021-12-24] MEDS: Artificial Tears 15 ML DROPS 2 DROP EYE-BOTH (03:32)
[2021-12-24 03:56] VITALS: BP 126/69; PULSE 84; RESP 14; TEMP 36.3; O2SAT 94
[2021-12-24] MEDS: Famotidine 20 MG TABLET PO ×2 (08:04→20:45)
[2021-12-24] MEDS: Perphenazine 8 MG TABLET 16 MG PO ×3 (08:05→20:46)
[2021-12-24] MEDS: QUEtiapine Fumarate 200 MG TABLET PO ×2 (08:05→16:49)
[2021-12-24] MEDS: carBAMazepine ER 200 MG TAB.ER.12H 800 MG PO ×2 (08:05→20:45)
[2021-12-24] MEDS: Vitamin E (Dl,Tocopheryl Acet) 180 MG (400 UNIT) CAPSULE PO ×2 (08:05→20:45)
[2021-12-24] MEDS: clonazePAM 1 MG TABLET PO ×3 (08:05→20:46)
[2021-12-24] MEDS: Ascorbic Acid 250 MG TABLET PO (08:06)
[2021-12-24] MEDS: Fluticasone/Vilanterol 100/25 BLST.W.DEV 1 PUFF INHALE (08:07)
[2021-12-24 08:20] VITALS: BP 118/78; PULSE 66; RESP 17; TEMP 37.1; O2SAT 98
--- NOTE | 2021-12-24 12:12 | HO.PSYCHPN ---
Subjective Subjective Date of Service: 12/24/21 Reason For Visit: psychosis Subjective Notes: Conditional Voluntary Interim History: Pt in bed, reporting feeling tired but better than previous days. Afebrile, O2 sats>93 on room air. Pt denies SI/HI. Interview limited as pt reported that he is tired and wants to sleep. Per nursing, pt more active in evening, non sensical at times, writing poems. No aggression towards self or others. Medication Compliance: Yes Side effects from medications: No Attending Groups: No Review of Systems Review of Systems CVS: No c/o chest pain, palpitations, no SOB TEST CELL TECHNICIAN: No c/o dizziness, headache GI: No c/o Nausea, Vomiting, diarrhea, constipation or heartburn Yes all other systems are reviewed and are negative and Unobtainable due to mental status Mental Status Exam Mental Status Exam Narrative: supine on his bed. behavior is cooperative, not agitated; dressed in hospital carlin, adequate hygiene; affect normo-intense, non-labile; Speech incr rate, nml loudness. nml prosody, latency; thought process largely organized; no SI/HI/AVH expressed. Patients insight and judgment are impaired. Diagnostics Vital Signs (24Hr): Vital Signs - 24 hr 12/23/21 20:00 12/23/21 22:40 12/24/21 00:00 Temperature 97.0 F Pulse Rate 71 Respiratory Rate 20 Blood Pressure 133/79 Pulse Oximetry 98 99 94 Oxygen Delivery Method Room Air Room Air Room Air 12/24/21 03:56 12/24/21 08:20 Temperature 97.4 F 98.7 F Pulse Rate 84 66 Respiratory Rate 14 17 Blood Pressure 126/69 118/78 Pulse Oximetry 94 98 Oxygen Delivery Method Room Air Room Air BMI result Body Mass Index 30.3 Labs Results: 12/14/21 07:58 12/19/21 18:51 Imaging Radiology Impressions: ITS Impressions Venous Duplex 12/19/21 20:16 IMPRESSION: No DVT demonstrated in the bilateral lower extremity. Medications Medications Current Medications Acetaminophen (Acetaminophen 325 Mg Tablet) 650 mg PO Q6H PRN PRN Reason: Headache/Pain Mild Scale (1-3) Last Admin: 12/22/21 20:12 Dose: 650 mg Al Hydroxide/Mg Hydroxide (Magnesium Hydrox/Alum Hydrox 30 Ml Oral.Susp) 30 ml PO Q6H PRN PRN Reason: Heartburn/Nausea Last Admin: 12/10/21 19:22 Dose: 30 ml Albuterol Sulfate (Albuterol Sulfate 90 Mcg 8 Gm Inhaler) 2 puff INHALE Q4H PRN PRN Reason: shortness of breath or wheezing Last Admin: 12/24/21 03:32 Dose: 2 puff Artificial Tears (Artificial Tears 15 Ml Drops) 2 drop EYE-BOTH Q4H PRN PRN Reason: Dry Eyes Last Admin: 12/24/21 03:32 Dose: 2 drop Ascorbic Acid (Ascorbic Acid 250 Mg Tablet) 250 mg PO DAILY [facility] Last Admin: 12/24/21 08:06 Dose: 250 mg Benzocaine (Throat Lozenge, Medicated Lozenge) 1 lozenge MUCOUS MEM Q1H PRN PRN Reason: Sore Throat Last Admin: 12/24/21 06:56 Dose: 1 lozenge Bisacodyl (Bisacodyl 10 Mg Supp.Rect) 10 mg MS BEDTIME PRN PRN Reason: Constipation Last Admin: 12/06/21 21:14 Dose: 10 mg Carbamazepine (Carbamazepine Er 200 Mg Tab.Er.12h) 800 mg PO BEDTIME [facility] Last Admin: 12/23/21 22:10 Dose: 800 mg Carbamazepine (Carbamazepine Er 200 Mg Tab.Er.12h) 800 mg PO DAILY [facility] Last Admin: 12/24/21 08:05 Dose: 800 mg Clonazepam (Clonazepam 1 Mg Tablet) 1 mg PO TID [facility] Last Admin: 12/24/21 08:05 Dose: 1 mg Doxycycline Hyclate (Doxycycline Hyclate 100 Mg Tablet) 100 mg PO Q12H [facility] Stop: 12/28/21 06:01 Last Admin: 12/24/21 06:45 Dose: 100 mg Famotidine (Famotidine 20 Mg Tablet) 20 mg PO BID [facility] Last Admin: 12/24/21 08:04 Dose: 20 mg Fluticasone/Vilanterol (Fluticasone/Vilanterol 100/25 Blst.W.Dev) 1 puff INHALE DAILY [facility] Last Admin: 12/24/21 08:07 Dose: 1 puff Hydroxyzine HCl (Hydroxyzine Hcl 50 Mg Tablet) 50 mg PO Q6H PRN PRN Reason: Anxiety Last Admin: 12/23/21 22:09 Dose: 50 mg Ibuprofen (Ibuprofen 600 Mg Tablet) 600 mg PO Q6H PRN PRN Reason: aches and pains Last Admin: 12/23/21 22:10 Dose: 600 mg Lactic Acid (Ammonium Lactate 12 % Lotion 226 Gm Bottle) 1 appl TOPICAL BID [facility]; Protocol Last Admin: 12/24/21 08:20 Dose: Not Given Lidocaine/Diphenhydr/Alum/Mg/Simeth (Mag&Al/Sim/Diphenhyd/Lidocaine 10 Ml Oral.Susp) 10 ml PO Q4H PRN; Protocol PRN Reason: oral mucous membrane ulcer jeremiah Last Admin: 12/20/21 02:20 Dose: 10 ml Magnesium Hydroxide (Milk Of Magnesia 30 Ml Oral.Susp) 30 ml PO DAILY PRN PRN Reason: Constipation Last Admin: 12/20/21 15:28 Dose: 30 ml Nicotine Polacrilex (Nicotine Polacrilex 2 Mg Gum) 4 mg BUCCAL Q2H PRN PRN Reason: Nicotine Cravings Last Admin: 12/24/21 08:02 Dose: 4 mg Olanzapine (Olanzapine 5 Mg Tablet) 5 mg PO Q4H PRN PRN Reason: ginny/psychosis Last Admin: 12/23/21 22:09 Dose: 5 mg Perphenazine (Perphenazine 8 Mg Tablet) 16 mg PO TID [facility] Last Admin: 12/24/21 08:05 Dose: 16 mg Prazosin HCl (Prazosin Hcl 1 Mg Capsule) 2 mg PO BEDTIME [facility]; Protocol Last Admin: 12/23/21 22:10 Dose: 2 mg Psyllium Hydrophilic Mucilloid (Psyllium Seed 3.4 Gm Powd.Pack) 3.4 gm PO BID [facility] Last Admin: 12/24/21 08:02 Dose: 3.4 gm Quetiapine Fumarate (Quetiapine Fumarate 200 Mg Tablet) 200 mg PO BID@0900,1400 [facility] Last Admin: 12/24/21 08:05 Dose: 200 mg Quetiapine Fumarate (Quetiapine Fumarate 400 Mg Tablet) 400 mg PO BEDTIME [facility] Last Admin: 12/23/21 22:10 Dose: 400 mg Simethicone (Simethicone 80 Mg Tab.Chew) 80 mg PO QIDWMHS PRN PRN Reason: flatulence Last Admin: 12/20/21 22:49 Dose: 80 mg Tamsulosin HCl (Tamsulosin Hcl 0.4 Mg Capsule) 0.4 mg PO BEDTIME [facility] Last Admin: 12/23/21 22:10 Dose: 0.4 mg Trazodone HCl (Trazodone Hcl 50 Mg Tablet) 150 mg PO BEDTIME [facility] Last Admin: 12/23/21 22:09 Dose: 150 mg Trazodone HCl (Trazodone Hcl 50 Mg Tablet) 50 mg PO BEDTIME PRN PRN Reason: Insomnia Last Admin: 12/23/21 01:55 Dose: 50 mg Vitamin E (Vitamin E (Dl,Tocopheryl Acet) 180 Mg (400 Unit) Capsule) 180 mg PO BID [facility] Last Admin: 12/24/21 08:05 Dose: 180 mg Allergies Allergies Allergy/AdvReac Type Severity Reaction Status Date / Time divalproex sodium Allergy Severe PANCREATITI Verified 11/24/21 14:34 [From DEPAKOTE] S haloperidol [From Haldol] Allergy Intermediate DYSTONIC Verified 11/24/21 14:34 REACTION Assessment & Plan Assessment & Plan (1) Schizoaffective disorder: Status: Acute Code(s): F25.9 - Schizoaffective disorder, unspecified (2) Cellulitis: Status: Acute Code(s): L03.90 - Cellulitis, unspecified Assessment and Plan: 51yo M with COPD, HLD, obesity, BPH, ex-smoker, bipolar-type schizoaffective disorder admitted to [facility]. Developed infection of R foot yesterday as well as symptomatic Covid-19 infection without hypoxia. # nonpurulent cellulitis - doxycycline x7d. no need for blood culture. monitor clinically for improvement. (3) COVID-19: Status: Acute Code(s): U07.1 - COVID-19 Assessment and Plan: 51yo M with COPD, HLD, obesity, BPH, ex-smoker, bipolar-type schizoaffective disorder admitted to [facility]. Developed infection of R foot yesterday as well as symptomatic Covid-19 infection without hypoxia. # Covid-19 infection - not hypoxic; no steroids indicated. Paxlovid contraindicated by use of carbamezapine. can give 3 days of IV remdesivir as alternative. Monitor SaO2 qshift. beginning 12/20/21, isolation x5d then mask-wearing x5d Plan 12/03: continue home meds for now. CV rejected as pt unable to appreciate the circumstances of his admission. will need commitment and benedicto's order. T/C restarting clozaril and lithium, on which pt did well for many years, reportedly. tegretol increased from 400 BID to 600 BID at admission. 12/04: klonopin 0.5/0.5/1 reinstated 12/04 (outpt provider had started it 11/25 at 1 mg TID). magic mouthwash started for oral ulcers. 12/05: slept well last night, still pressured and disorganized.? continue current mgmt. 12/08: 12b up, applied for commitment and meds.? making sexually inappropriate comments/suggestions to staff, threatening violence and toward male peer. 12/09: same presentation as yesterday.? started lithium 450 mg BID today. 12/10: no change in presentation, compliant with lithium. 12/11: DC prazosin to see if B/L pedal edema decreases.? DC pravachol as pt is refusing it.? order lac-hydrin for plantar fissure.? otherwise continue previous mgmt.? perhaps slight decrease in pressure and disorganization. 12/12: pedal edema no worse, perhaps better.? no GI side effects from lithium.? fissure looks improved with cream.? check lithium, tegretol, associated labs on wednesday (ordered).? titrate lithium as indicated. 12/13 pt manic, disorganized, intrusive, blaming, threatening (told sports writer someone would come over and break his neck) -consider switching to Zyprexa from seroquel 12/14 her is manic, intrusive irritable, grandiose [place] level subtherapeutic; however patient is very anxious about this medication causing side effects and at this time sports writer thinks it might be better to leave it is current dose since patient continues to take it and trying to increase it may very well cause him to refuse it altogether; he is also on Tegretol.? Perhaps switching antipsychotics to Zyprexa is warranted.? Patient says he has never taken Zyprexa before.? Patient typically knows his medication history however usually when someone gets on clozapine it is because most other medications have not worked.? [place] has just reached at steady state so will hold off making medication adjustments right now to see if there can be any further benefit observed from currently lithium dose and medication regimen. 12/15 no change; clonazepam at started off and was not restarted.? Patient did take p.o. laxatives and had a bowel movement says he feels better. 12/16:? increase tegretol from 600 BID to 600/800 tonight, as level around 7.? lithium sub-therapeutic but pt resistant to increase, will see how much better he can get on higher tegretol dosing.? T/C switching anti-psychotic to zyprexa, as pt has done well on clozaril in the past.? TEDs obtained for pedal edema. 12/17: no change in mgmt.? presentation not substantially changed.? some agitation today. 12/18: presentation essentially unchanged.? no agitation today, sleeping late morning. 12/19: Assessed for pedal edema, spoke with hospitalist, BNP, BMP wnl, venous doppler wnl. Per hospitalist, continue with TEDs, may consider low dose lasix. 12/20: stable presentation.? continue current mgmt.? check tegretol level about a week after dose increase.? trending more calm than earlier in his stay but remains very psychotic.? T/C trial of olanzapine. 12/21:? taper and DC lithium and it appears to be having unsustainable physical side effects (B/L LE edema, now possibly with cellulitis).? also tested COVID POS today, satting mid 902 on RA.? hospitalist consult placed for eval of COVID severity and R/O cellulitis.? T/C olanzapine trial once lithium has been DCed. 12/22: stable, appears medically better than yesterday. continue lithium taper, to 150 BID tonight and tomorrow morning. start ibuprofen for better pain control with COVID. continue antibiotic and antiviral. 12/24 continue current tx. O2 sat >93, no s/s of respiratory distress. afebrile. I spent minutes with the patient and/or on the patient floor today, greater than?50% of which was spent counseling/coordinating care. Reason for contiued inpatient stay Substantial Risk for: inability to function
[2021-12-24 13:30] VITALS: O2SAT 99
[2021-12-24] MEDS: Ibuprofen 600 MG TABLET PO (13:48)
[2021-12-24] MEDS: hydrOXYzine HCL 50 MG TABLET PO (13:48)
[2021-12-24 16:00] VITALS: RESP 16
[2021-12-24 20:00] VITALS: BP 111/53; PULSE 69; RESP 16; TEMP 37; O2SAT 98
[2021-12-24] MEDS: QUEtiapine Fumarate 400 MG TABLET PO (20:45)
[2021-12-24] MEDS: Tamsulosin HCL 0.4 MG CAPSULE PO (20:46)
[2021-12-24] MEDS: Prazosin HCL 1 MG CAPSULE 2 MG PO (20:46)
[2021-12-24] MEDS: traZODone HCL 50 MG TABLET 150 MG PO (20:46)
[2021-12-25] VITALS: O2SAT 95
[2021-12-25] MEDS: Nicotine Polacrilex 2 MG GUM 4 MG BUCCAL ×6 (03:14→21:09)
[2021-12-25] MEDS: Ammonium Lactate 12 % Lotion 226 GM BOTTLE 1 APPL TOPICAL ×2 (03:15→05:54)
[2021-12-25 03:31] VITALS: BP 131/70; PULSE 79; TEMP 36.4; O2SAT 96
[2021-12-25] MEDS: Throat Lozenge, Medicated LOZENGE 1 LOZENGE MUCOUS MEM (05:54)
[2021-12-25] MEDS: Ibuprofen 600 MG TABLET PO ×2 (08:15→16:27)
[2021-12-25] MEDS: Vitamin E (Dl,Tocopheryl Acet) 180 MG (400 UNIT) CAPSULE PO ×2 (08:28→21:09)
[2021-12-25] MEDS: Ascorbic Acid 250 MG TABLET PO (08:28)
[2021-12-25] MEDS: carBAMazepine ER 200 MG TAB.ER.12H 800 MG PO ×2 (08:29→21:13)
[2021-12-25] MEDS: clonazePAM 1 MG TABLET PO ×3 (08:29→21:09)
[2021-12-25] MEDS: Perphenazine 8 MG TABLET 16 MG PO ×3 (08:29→21:09)
[2021-12-25] MEDS: Famotidine 20 MG TABLET PO ×2 (08:29→21:10)
[2021-12-25] MEDS: QUEtiapine Fumarate 200 MG TABLET PO ×2 (08:29→13:55)
[2021-12-25] MEDS: Fluticasone/Vilanterol 100/25 BLST.W.DEV 1 PUFF INHALE (09:26)
[2021-12-25 10:36] VITALS: BP 127/76; PULSE 72; TEMP 35.9; O2SAT 97
[2021-12-25] MEDS: Acetaminophen 325 MG TABLET 650 MG PO ×2 (11:57→21:08)
[2021-12-25] MEDS: Milk of Magnesia 30 ML ORAL.SUSP PO (12:09)
--- NOTE | 2021-12-25 13:06 | HO.PSYCHPN ---
Subjective Subjective Date of Service: 12/25/21 Reason For Visit: psychosis Interim History: found seated at his desk coloring. offers his poetry to be read by , MD humors him for a page. shows MD his LLE, on which rash has not progressed and which has become less purpuric and more red in areas as well as appearing as bruised over much of the surface. edema mildly improved, erythematous patch on volar surface of foot as well. asks for expectorant. no other complaints or requests at the moment. per staff, denies anx/dep. appears to be RIS. med and meal compliant. pleasant, tangential. slept 11-3. Mental Status Exam Mental Status Exam Narrative: seated at desk coloring. behavior is cooperative, not agitated; dressed in hospital carlin, adequate hygiene; affect normo-intense, non-labile; Speech incr rate, nml loudness, nml amount. nml prosody, latency; thought process largely organized; no SI/HI/AVH expressed. Patients insight and judgment are impaired. Diagnostics Vital Signs (24Hr): Vital Signs - 24 hr 12/24/21 13:30 12/24/21 20:00 12/24/21 16:00 Temperature 98.6 F Pulse Rate 69 Respiratory Rate 16 16 Blood Pressure 111/53 L Pulse Oximetry 99 98 Oxygen Delivery Method Room Air Room Air 12/25/21 00:00 12/25/21 03:31 12/25/21 10:36 Temperature 97.5 F 96.7 F L Pulse Rate 79 72 Respiratory Rate Blood Pressure 131/70 127/76 Pulse Oximetry 95 96 97 Oxygen Delivery Method Room Air Room Air Room Air BMI result Body Mass Index 30.3 Labs Results: 12/14/21 07:58 12/19/21 18:51 Imaging Radiology Impressions: ITS Impressions Venous Duplex 12/19/21 20:16 IMPRESSION: No DVT demonstrated in the bilateral lower extremity. Medications Medications Current Medications Acetaminophen (Acetaminophen 325 Mg Tablet) 650 mg PO Q6H PRN PRN Reason: Headache/Pain Mild Scale (1-3) Last Admin: 12/25/21 11:57 Dose: 650 mg Al Hydroxide/Mg Hydroxide (Magnesium Hydrox/Alum Hydrox 30 Ml Oral.Susp) 30 ml PO Q6H PRN PRN Reason: Heartburn/Nausea Last Admin: 12/10/21 19:22 Dose: 30 ml Albuterol Sulfate (Albuterol Sulfate 90 Mcg 8 Gm Inhaler) 2 puff INHALE Q4H PRN PRN Reason: shortness of breath or wheezing Last Admin: 12/24/21 03:32 Dose: 2 puff Artificial Tears (Artificial Tears 15 Ml Drops) 2 drop EYE-BOTH Q4H PRN PRN Reason: Dry Eyes Last Admin: 12/24/21 03:32 Dose: 2 drop Ascorbic Acid (Ascorbic Acid 250 Mg Tablet) 250 mg PO DAILY [facility] Last Admin: 12/25/21 08:28 Dose: 250 mg Benzocaine (Throat Lozenge, Medicated Lozenge) 1 lozenge MUCOUS MEM Q1H PRN PRN Reason: Sore Throat Last Admin: 12/25/21 05:54 Dose: 1 lozenge Bisacodyl (Bisacodyl 10 Mg Supp.Rect) 10 mg [place] BEDTIME PRN PRN Reason: Constipation Last Admin: 12/06/21 21:14 Dose: 10 mg Carbamazepine (Carbamazepine Er 200 Mg Tab.Er.12h) 800 mg PO BEDTIME [facility] Last Admin: 12/24/21 20:45 Dose: 800 mg Carbamazepine (Carbamazepine Er 200 Mg Tab.Er.12h) 800 mg PO DAILY [facility] Last Admin: 12/25/21 08:29 Dose: 800 mg Clonazepam (Clonazepam 1 Mg Tablet) 1 mg PO TID [facility] Last Admin: 12/25/21 08:29 Dose: 1 mg Doxycycline Hyclate (Doxycycline Hyclate 100 Mg Tablet) 100 mg PO Q12H [facility] Stop: 12/28/21 06:01 Last Admin: 12/25/21 05:54 Dose: 100 mg Famotidine (Famotidine 20 Mg Tablet) 20 mg PO BID [facility] Last Admin: 12/25/21 08:29 Dose: 20 mg Fluticasone/Vilanterol (Fluticasone/Vilanterol 100/25 Blst.W.Dev) 1 puff INHALE DAILY [facility] Last Admin: 12/25/21 09:26 Dose: 1 puff Guaifenesin (Guaifenesin La 600 Mg Tab.Er.12h) 600 mg PO BID PRN PRN Reason: thick secretions Hydroxyzine HCl (Hydroxyzine Hcl 50 Mg Tablet) 50 mg PO Q6H PRN PRN Reason: Anxiety Last Admin: 12/24/21 13:48 Dose: 50 mg Ibuprofen (Ibuprofen 600 Mg Tablet) 600 mg PO Q6H PRN PRN Reason: aches and pains Last Admin: 12/25/21 08:15 Dose: 600 mg Lactic Acid (Ammonium Lactate 12 % Lotion 226 Gm Bottle) 1 appl TOPICAL BID [facility]; Protocol Last Admin: 12/25/21 05:54 Dose: 1 appl Lidocaine/Diphenhydr/Alum/Mg/Simeth (Mag&Al/Sim/Diphenhyd/Lidocaine 10 Ml Oral.Susp) 10 ml PO Q4H PRN; Protocol PRN Reason: oral mucous membrane ulcer jeremiah Last Admin: 12/20/21 02:20 Dose: 10 ml Magnesium Hydroxide (Milk Of Magnesia 30 Ml Oral.Susp) 30 ml PO DAILY PRN PRN Reason: Constipation Last Admin: 12/25/21 12:09 Dose: 30 ml Nicotine Polacrilex (Nicotine Polacrilex 2 Mg Gum) 4 mg BUCCAL Q2H PRN PRN Reason: Nicotine Cravings Last Admin: 12/25/21 11:57 Dose: 4 mg Olanzapine (Olanzapine 5 Mg Tablet) 5 mg PO Q4H PRN PRN Reason: ginny/psychosis Last Admin: 12/23/21 22:09 Dose: 5 mg Perphenazine (Perphenazine 8 Mg Tablet) 16 mg PO TID [facility] Last Admin: 12/25/21 08:29 Dose: 16 mg Prazosin HCl (Prazosin Hcl 1 Mg Capsule) 2 mg PO BEDTIME [facility]; Protocol Last Admin: 12/24/21 20:46 Dose: 2 mg Psyllium Hydrophilic Mucilloid (Psyllium Seed 3.4 Gm Powd.Pack) 3.4 gm PO BID [facility] Last Admin: 12/25/21 09:27 Dose: 3.4 gm Quetiapine Fumarate (Quetiapine Fumarate 200 Mg Tablet) 200 mg PO BID@0900,1400 [facility] Last Admin: 12/25/21 08:29 Dose: 200 mg Quetiapine Fumarate (Quetiapine Fumarate 400 Mg Tablet) 400 mg PO BEDTIME [facility] Last Admin: 12/24/21 20:45 Dose: 400 mg Simethicone (Simethicone 80 Mg Tab.Chew) 80 mg PO QIDWMHS PRN PRN Reason: flatulence Last Admin: 12/20/21 22:49 Dose: 80 mg Tamsulosin HCl (Tamsulosin Hcl 0.4 Mg Capsule) 0.4 mg PO BEDTIME [facility] Last Admin: 12/24/21 20:46 Dose: 0.4 mg Trazodone HCl (Trazodone Hcl 50 Mg Tablet) 150 mg PO BEDTIME [facility] Last Admin: 12/24/21 20:46 Dose: 150 mg Trazodone HCl (Trazodone Hcl 50 Mg Tablet) 50 mg PO BEDTIME PRN PRN Reason: Insomnia Last Admin: 12/23/21 01:55 Dose: 50 mg Vitamin E (Vitamin E (Dl,Tocopheryl Acet) 180 Mg (400 Unit) Capsule) 180 mg PO BID [facility] Last Admin: 12/25/21 08:28 Dose: 180 mg Allergies Allergies Allergy/AdvReac Type Severity Reaction Status Date / Time divalproex sodium Allergy Severe PANCREATITI Verified 11/24/21 14:34 [From DEPAKOTE] S haloperidol [From Haldol] Allergy Intermediate DYSTONIC Verified 11/24/21 14:34 REACTION Assessment & Plan Assessment & Plan (1) Schizoaffective disorder: Status: Acute Code(s): F25.9 - Schizoaffective disorder, unspecified (2) Cellulitis: Status: Acute Code(s): L03.90 - Cellulitis, unspecified Assessment and Plan: 51yo M with COPD, HLD, obesity, BPH, ex-smoker, bipolar-type schizoaffective disorder admitted to [facility]. Developed infection of R foot yesterday as well as symptomatic Covid-19 infection without hypoxia. # nonpurulent cellulitis - doxycycline x7d. no need for blood culture. monitor clinically for improvement. (3) COVID-19: Status: Acute Code(s): U07.1 - COVID-19 Assessment and Plan: 51yo M with COPD, HLD, obesity, BPH, ex-smoker, bipolar-type schizoaffective disorder admitted to [facility]. Developed infection of R foot yesterday as well as symptomatic Covid-19 infection without hypoxia. # Covid-19 infection - not hypoxic; no steroids indicated. Paxlovid contraindicated by use of carbamezapine. can give 3 days of IV remdesivir as alternative. Monitor SaO2 qshift. beginning 12/20/21, isolation x5d then mask-wearing x5d Plan 12/03: continue home meds for now. CV rejected as pt unable to appreciate the circumstances of his admission. will need commitment and benedicto's order. T/C restarting clozaril and lithium, on which pt did well for many years, reportedly. tegretol increased from 400 BID to 600 BID at admission. 12/04: klonopin 0.5/0.5/1 reinstated 12/04 (outpt provider had started it 11/25 at 1 mg TID). magic mouthwash started for oral ulcers. 12/05: slept well last night, still pressured and disorganized.? continue current mgmt. 12/08: 12b up, applied for commitment and meds.? making sexually inappropriate comments/suggestions to staff, threatening violence and toward male peer. 12/09: same presentation as yesterday.? started lithium 450 mg BID today. 12/10: no change in presentation, compliant with lithium. 12/11: DC prazosin to see if B/L pedal edema decreases.? DC pravachol as pt is refusing it.? order lac-hydrin for plantar fissure.? otherwise continue previous mgmt.? perhaps slight decrease in pressure and disorganization. 12/12: pedal edema no worse, perhaps better.? no GI side effects from lithium.? fissure looks improved with cream.? check lithium, tegretol, associated labs on wednesday (ordered).? titrate lithium as indicated. 12/13 pt manic, disorganized, intrusive, blaming, threatening (told board writer someone would come over and break his neck) -consider switching to Zyprexa from seroquel 12/14 her is manic, intrusive irritable, grandiose Radley level subtherapeutic; however patient is very anxious about this medication causing side effects and at this time board writer thinks it might be better to leave it is current dose since patient continues to take it and trying to increase it may very well cause him to refuse it altogether; he is also on Tegretol.? Perhaps switching antipsychotics to Zyprexa is warranted.? Patient says he has never taken Zyprexa before.? Patient typically knows his medication history however usually when someone gets on clozapine it is because most other medications have not worked.? Radley has just reached at steady state so will hold off making medication adjustments right now to see if there can be any further benefit observed from currently lithium dose and medication regimen. 12/15 no change; clonazepam at started off and was not restarted.? Patient did take p.o. laxatives and had a bowel movement says he feels better. 12/16:? increase tegretol from 600 BID to 600/800 tonight, as level around 7.? lithium sub-therapeutic but pt resistant to increase, will see how much better he can get on higher tegretol dosing.? T/C switching anti-psychotic to zyprexa, as pt has done well on clozaril in the past.? TEDs obtained for pedal edema. 12/17: no change in mgmt.? presentation not substantially changed.? some agitation today. 12/18: presentation essentially unchanged.? no agitation today, sleeping late morning. 12/19: Assessed for pedal edema, spoke with hospitalist, BNP, BMP wnl, venous doppler wnl. Per hospitalist, continue with TEDs, may consider low dose lasix. 12/20: stable presentation.? continue current mgmt.? check tegretol level about a week after dose increase.? trending more calm than earlier in his stay but remains very psychotic.? T/C trial of olanzapine. 12/21:? taper and DC lithium and it appears to be having unsustainable physical side effects (B/L LE edema, now possibly with cellulitis).? also tested COVID POS today, satting mid 902 on RA.? hospitalist consult placed for eval of COVID severity and R/O cellulitis.? T/C olanzapine trial once lithium has been DCed. 12/22: stable, appears medically better than yesterday. continue lithium taper, to 150 BID tonight and tomorrow morning. start ibuprofen for better pain control with COVID. continue antibiotic and antiviral. 12/24 continue current tx. O2 sat >93, no s/s of respiratory distress. afebrile. 12/25: course of remdesivir complete, doxy ongoing. rash has not spread, likely related to edema and dependent limbs. less purpuric and more pinpoint red with bruising. edema improved. c/o productive cough, expectorant Rx'ed. otherwise continue current mgmt. per CDC guidelines, persons with moderate COVID (which includes having oxygen saturation less than 94%) should isolate for 10 days. I spent ___25___ minutes with the patient and/or on the patient floor today, greater than?50% of which was spent counseling/coordinating care. Reason for contiued inpatient stay Substantial Risk for: inability to function and rapid decompensation
[2021-12-25 21:05] VITALS: BP 147/85; PULSE 70; RESP 20; TEMP 35.4; O2SAT 96
[2021-12-25] MEDS: Tamsulosin HCL 0.4 MG CAPSULE PO (21:08)
[2021-12-25] MEDS: traZODone HCL 50 MG TABLET 150 MG PO (21:09)
[2021-12-25] MEDS: QUEtiapine Fumarate 400 MG TABLET PO (21:10)
[2021-12-25] MEDS: Prazosin HCL 1 MG CAPSULE 2 MG PO (21:10)
[2021-12-26] MEDS: Nicotine Polacrilex 2 MG GUM 4 MG BUCCAL ×8 (00:11→17:27)
[2021-12-26] MEDS: OLANZapine 5 MG TABLET PO ×3 (02:16→17:27)
[2021-12-26] MEDS: traZODone HCL 50 MG TABLET PO (02:17)
[2021-12-26 06:00] VITALS: BP 150/85; PULSE 88; TEMP 36.7; O2SAT 97
[2021-12-26] MEDS: Albuterol Sulfate 90 MCG 8 GM INHALER 2 PUFF INHALE ×2 (08:41→21:31)
[2021-12-26] MEDS: Fluticasone/Vilanterol 100/25 BLST.W.DEV 1 PUFF INHALE (08:41)
[2021-12-26] MEDS: Perphenazine 8 MG TABLET 16 MG PO ×3 (08:42→21:31)
[2021-12-26] MEDS: Vitamin E (Dl,Tocopheryl Acet) 180 MG (400 UNIT) CAPSULE PO ×2 (08:42→21:31)
[2021-12-26] MEDS: Acetaminophen 325 MG TABLET 650 MG PO ×2 (08:42→14:36)
[2021-12-26] MEDS: QUEtiapine Fumarate 200 MG TABLET PO ×2 (08:42→14:37)
[2021-12-26] MEDS: clonazePAM 1 MG TABLET PO ×3 (08:42→21:32)
[2021-12-26] MEDS: carBAMazepine ER 200 MG TAB.ER.12H 800 MG PO ×2 (08:42→21:32)
[2021-12-26] MEDS: Ascorbic Acid 250 MG TABLET PO (08:42)
[2021-12-26] MEDS: Famotidine 20 MG TABLET PO ×2 (08:43→21:31)
[2021-12-26] MEDS: Ammonium Lactate 12 % Lotion 226 GM BOTTLE 1 APPL TOPICAL (08:44)
[2021-12-26] MEDS: Ibuprofen 600 MG TABLET PO ×2 (12:29→21:32)
[2021-12-26] MEDS: hydrOXYzine HCL 50 MG TABLET PO ×2 (12:29→21:31)
--- NOTE | 2021-12-26 12:47 | P.PNPSI_ITS ---
Subjective Subjective Date of Service: 12/26/21 Reason For Visit: psychosis Interim History: calm, cooperative. asleep but rousable. shares coloring of what he describes as [place] americ[place]. allows MD to read a page of his poetry. notes his feet remain edematous and rash remains, but neither has worsened. no other complaints or requests. MD informed pt labs to be drawn on wednesday. per staff, COVID POS, in quarantine. flight of ideas, cooperative with care. edema 2+ in LE B/L. wearing TEDs. up all NOC. had zyprexa and trazodone PRNs at 0200. sleeping during days however. Mental Status Exam Mental Status Exam Narrative: asleep in his bed, rousable to loud voice. behavior is cooperative, not agitated; dressed in hospital carlin, adequate hygiene; affect normo-intense, non-labile; Speech incr rate, nml loudness, nml amount. nml prosody, latency; thought process largely organized; no SI/HI/AVH expressed. Patients insight and judgment are impaired. Diagnostics Vital Signs (24Hr): Vital Signs - 24 hr 12/25/21 21:05 12/26/21 06:00 Temperature 95.7 F L 98.1 F Pulse Rate 70 88 Respiratory Rate 20 Blood Pressure 147/85 H 150/85 H Pulse Oximetry 96 97 Oxygen Delivery Method Room Air Room Air BMI result Body Mass Index 30.3 Labs Results: 12/14/21 07:58 12/19/21 18:51 Imaging Radiology Impressions: ITS Impressions Venous Duplex 12/19/21 20:16 IMPRESSION: No DVT demonstrated in the bilateral lower extremity. Medications Medications Current Medications Acetaminophen (Acetaminophen 325 Mg Tablet) 650 mg PO Q6H PRN PRN Reason: Headache/Pain Mild Scale (1-3) Last Admin: 12/26/21 08:42 Dose: 650 mg Al Hydroxide/Mg Hydroxide (Magnesium Hydrox/Alum Hydrox 30 Ml Oral.Susp) 30 ml PO Q6H PRN PRN Reason: Heartburn/Nausea Last Admin: 12/10/21 19:22 Dose: 30 ml Albuterol Sulfate (Albuterol Sulfate 90 Mcg 8 Gm Inhaler) 2 puff INHALE Q4H PRN PRN Reason: shortness of breath or wheezing Last Admin: 12/26/21 08:41 Dose: 2 puff Artificial Tears (Artificial Tears 15 Ml Drops) 2 drop EYE-BOTH Q4H PRN PRN Reason: Dry Eyes Last Admin: 12/24/21 03:32 Dose: 2 drop Ascorbic Acid (Ascorbic Acid 250 Mg Tablet) 250 mg PO DAILY [facility] Last Admin: 12/26/21 08:42 Dose: 250 mg Benzocaine (Throat Lozenge, Medicated Lozenge) 1 lozenge MUCOUS MEM Q1H PRN PRN Reason: Sore Throat Last Admin: 12/25/21 05:54 Dose: 1 lozenge Bisacodyl (Bisacodyl 10 Mg Supp.Rect) 10 mg [place] BEDTIME PRN PRN Reason: Constipation Last Admin: 12/06/21 21:14 Dose: 10 mg Carbamazepine (Carbamazepine Er 200 Mg Tab.Er.12h) 800 mg PO BEDTIME [facility] Last Admin: 12/25/21 21:13 Dose: 800 mg Carbamazepine (Carbamazepine Er 200 Mg Tab.Er.12h) 800 mg PO DAILY [facility] Last Admin: 12/26/21 08:42 Dose: 800 mg Clonazepam (Clonazepam 1 Mg Tablet) 1 mg PO TID [facility] Last Admin: 12/26/21 08:42 Dose: 1 mg Doxycycline Hyclate (Doxycycline Hyclate 100 Mg Tablet) 100 mg PO Q12H [facility] Stop: 12/28/21 06:01 Last Admin: 12/26/21 07:12 Dose: 100 mg Famotidine (Famotidine 20 Mg Tablet) 20 mg PO BID [facility] Last Admin: 12/26/21 08:43 Dose: 20 mg Fluticasone/Vilanterol (Fluticasone/Vilanterol 100/25 Blst.W.Dev) 1 puff INHALE DAILY [facility] Last Admin: 12/26/21 08:41 Dose: 1 puff Guaifenesin (Guaifenesin La 600 Mg Tab.Er.12h) 600 mg PO BID PRN PRN Reason: thick secretions Hydroxyzine HCl (Hydroxyzine Hcl 50 Mg Tablet) 50 mg PO Q6H PRN PRN Reason: Anxiety Last Admin: 12/26/21 12:29 Dose: 50 mg Ibuprofen (Ibuprofen 600 Mg Tablet) 600 mg PO Q6H PRN PRN Reason: aches and pains Last Admin: 12/26/21 12:29 Dose: 600 mg Lactic Acid (Ammonium Lactate 12 % Lotion 226 Gm Bottle) 1 appl TOPICAL BID [facility]; Protocol Last Admin: 12/26/21 08:44 Dose: 1 appl Lidocaine/Diphenhydr/Alum/Mg/Simeth (Mag&Al/Sim/Diphenhyd/Lidocaine 10 Ml Oral.Susp) 10 ml PO Q4H PRN; Protocol PRN Reason: oral mucous membrane ulcer jeremiah Last Admin: 12/20/21 02:20 Dose: 10 ml Magnesium Hydroxide (Milk Of Magnesia 30 Ml Oral.Susp) 30 ml PO DAILY PRN PRN Reason: Constipation Last Admin: 12/25/21 12:09 Dose: 30 ml Nicotine Polacrilex (Nicotine Polacrilex 2 Mg Gum) 4 mg BUCCAL Q2H PRN PRN Reason: Nicotine Cravings Last Admin: 12/26/21 12:29 Dose: 4 mg Olanzapine (Olanzapine 5 Mg Tablet) 5 mg PO Q4H PRN PRN Reason: ginny/psychosis Last Admin: 12/26/21 12:29 Dose: 5 mg Perphenazine (Perphenazine 8 Mg Tablet) 16 mg PO TID [facility] Last Admin: 12/26/21 08:42 Dose: 16 mg Prazosin HCl (Prazosin Hcl 1 Mg Capsule) 2 mg PO BEDTIME [facility]; Protocol Last Admin: 12/25/21 21:10 Dose: 2 mg Psyllium Hydrophilic Mucilloid (Psyllium Seed 3.4 Gm Powd.Pack) 3.4 gm PO BID [facility] Last Admin: 12/26/21 08:41 Dose: 3.4 gm Quetiapine Fumarate (Quetiapine Fumarate 200 Mg Tablet) 200 mg PO BID@0900,1400 [facility] Last Admin: 12/26/21 08:42 Dose: 200 mg Quetiapine Fumarate (Quetiapine Fumarate 400 Mg Tablet) 400 mg PO BEDTIME [facility] Last Admin: 12/25/21 21:10 Dose: 400 mg Simethicone (Simethicone 80 Mg Tab.Chew) 80 mg PO QIDWMHS PRN PRN Reason: flatulence Last Admin: 12/20/21 22:49 Dose: 80 mg Tamsulosin HCl (Tamsulosin Hcl 0.4 Mg Capsule) 0.4 mg PO BEDTIME [facility] Last Admin: 12/25/21 21:08 Dose: 0.4 mg Trazodone HCl (Trazodone Hcl 50 Mg Tablet) 150 mg PO BEDTIME [facility] Last Admin: 12/25/21 21:09 Dose: 150 mg Trazodone HCl (Trazodone Hcl 50 Mg Tablet) 50 mg PO BEDTIME PRN PRN Reason: Insomnia Last Admin: 12/26/21 02:17 Dose: 50 mg Vitamin E (Vitamin E (Dl,Tocopheryl Acet) 180 Mg (400 Unit) Capsule) 180 mg PO BID [facility] Last Admin: 12/26/21 08:42 Dose: 180 mg Allergies Allergies Allergy/AdvReac Type Severity Reaction Status Date / Time divalproex sodium Allergy Severe PANCREATITI Verified 11/24/21 14:34 [From DEPAKOTE] S haloperidol [From Haldol] Allergy Intermediate DYSTONIC Verified 11/24/21 14:34 REACTION Assessment & Plan Assessment & Plan (1) Schizoaffective disorder: Status: Acute Code(s): F25.9 - Schizoaffective disorder, unspecified (2) Cellulitis: Status: Acute Code(s): L03.90 - Cellulitis, unspecified Assessment and Plan: 51yo M with COPD, HLD, obesity, BPH, ex-smoker, bipolar-type schizoaffective disorder admitted to [facility]. Developed infection of R foot yesterday as well as symptomatic Covid-19 infection without hypoxia. # nonpurulent cellulitis - doxycycline x7d. no need for blood culture. monitor clinically for i mprovement. (3) COVID-19: Status: Acute Code(s): U07.1 - COVID-19 Assessment and Plan: 51yo M with COPD, HLD, obesity, BPH, ex-smoker, bipolar-type schizoaffective disorder admitted to [facility]. Developed infection of R foot yesterday as well as symptomatic Covid-19 infection without hypoxia. # Covid-19 infection - not hypoxic; no steroids indicated. Paxlovid contraindicated by use of carbamezapine. can give 3 days of IV remdesivir as alternative. Monitor SaO2 qshift. beginning 12/20/21, isolation x5d then mask-wearing x5d Plan 12/03: continue home meds for now. CV rejected as pt unable to appreciate the circumstances of his admission. will need commitment and benedicto's order. T/C restarting clozaril and lithium, on which pt did well for many years, reportedly. tegretol increased from 400 BID to 600 BID at admission. 12/04: klonopin 0.5/0.5/1 reinstated 12/04 (outpt provider had started it 11/25 at 1 mg TID). magic mouthwash started for oral ulcers. 12/05: slept well last night, still pressured and disorganized.? continue current mgmt. 12/08: 12b up, applied for commitment and meds.? making sexually inappropriate comments/suggestions to staff, threatening violence and toward male peer. 12/09: same presentation as yesterday.? started lithium 450 mg BID today. 12/10: no change in presentation, compliant with lithium. 12/11: DC prazosin to see if B/L pedal edema decreases.? DC pravachol as pt is refusing it.? order lac-hydrin for plantar fissure.? otherwise continue previous mgmt.? perhaps slight decrease in pressure and disorganization. 12/12: pedal edema no worse, perhaps better.? no GI side effects from lithium.? fissure looks improved with cream.? check lithium, tegretol, associated labs on wednesday (ordered).? titrate lithium as indicated. 12/13 pt manic, disorganized, intrusive, blaming, threatening (told fiction and nonfiction writer prose someone would come over and break his neck) -consider switching to Zyprexa from seroquel 12/14 her is manic, intrusive irritable, grandiose Azle level subtherapeutic; however patient is very anxious about this medication causing side effects and at this time fiction and nonfiction writer prose thinks it might be better to leave it is current dose since patient continues to take it and trying to increase it may very well cause him to refuse it altogether; he is also on Tegretol.? Perhaps switching antipsychotics to Zyprexa is warranted.? Patient says he has never taken Zyprexa before.? Patient typically knows his medication history however usually when someone gets on clozapine it is because most other medications have not worked.? Azle has just reached at steady state so will hold off making medication adjustments right now to see if there can be any further benefit observed from currently lithium dose and medication regimen. 12/15 no change; clonazepam at started off and was not restarted.? Patient did take p.o. laxatives and had a bowel movement says he feels better. 12/16:? increase tegretol from 600 BID to 600/800 tonight, as level around 7.? lithium sub-therapeutic but pt resistant to increase, will see how much better he can get on higher tegretol dosing.? T/C switching anti-psychotic to zyprexa, as pt has done well on clozaril in the past.? TEDs obtained for pedal edema. 12/17: no change in mgmt.? presentation not substantially changed.? some agitation today. 12/18: presentation essentially unchanged.? no agitation today, sleeping late morning. 12/19: Assessed for pedal edema, spoke with hospitalist, BNP, BMP wnl, venous doppler wnl. Per hospitalist, continue with TEDs, may consider low dose lasix. 12/20: stable presentation.? continue current mgmt.? check tegretol level about a week after dose increase.? trending more calm than earlier in his stay but remains very psychotic.? T/C trial of olanzapine. 12/21:? taper and DC lithium and it appears to be having unsustainable physical side effects (B/L LE edema, now possibly with cellulitis).? also tested COVID POS today, satting mid 902 on RA.? hospitalist consult placed for eval of COVID severity and R/O cellulitis.? T/C olanzapine trial once lithium has been DCed. 12/22: stable, appears medically better than yesterday. continue lithium taper, to 150 BID tonight and tomorrow morning. start ibuprofen for better pain control with COVID. continue antibiotic and antiviral. 12/24 continue current tx. O2 sat >93, no s/s of respiratory distress. afebrile. 12/25: course of remdesivir complete, doxy ongoing. rash has not spread, likely related to edema and dependent limbs. less purpuric and more pinpoint red with bruising. edema improved. c/o productive cough, expectorant Rx'ed. otherwise continue current mgmt. per CDC guidelines, persons with moderate COVID (which includes having oxygen saturation less than 94%) should isolate for 10 days. 12/26: stable, in quarantine day #6 of . continue current mgmt. check labs on wednesday morning. I spent ___20___ minutes with the patient and/or on the patient floor today, greater than?50% of which was spent counseling/coordinating care. Reason for contiued inpatient stay Substantial Risk for: inability to function and rapid decompensation
[2021-12-26] MEDS: Throat Lozenge, Medicated LOZENGE 1 LOZENGE MUCOUS MEM (14:37)
[2021-12-26] MEDS: guaiFENesin LA 600 MG TAB.ER.12H PO (14:37)
[2021-12-26 20:30] VITALS: BP 148/88; PULSE 70; RESP 18; TEMP 36.1; O2SAT 100
[2021-12-26] MEDS: Artificial Tears 15 ML DROPS 2 DROP EYE-BOTH (21:31)
[2021-12-26] MEDS: Prazosin HCL 1 MG CAPSULE 2 MG PO (21:31)
[2021-12-26] MEDS: QUEtiapine Fumarate 400 MG TABLET PO (21:32)
[2021-12-26] MEDS: traZODone HCL 50 MG TABLET 150 MG PO (21:32)
[2021-12-26] MEDS: Tamsulosin HCL 0.4 MG CAPSULE PO (21:32)
[2021-12-27] MEDS: Nicotine Polacrilex 2 MG GUM 4 MG BUCCAL ×9 (01:15→21:47)
[2021-12-27 06:00] VITALS: BP 166/93; PULSE 76; TEMP 35.5
[2021-12-27] MEDS: Throat Lozenge, Medicated LOZENGE 1 LOZENGE MUCOUS MEM (06:54)
[2021-12-27] MEDS: carBAMazepine ER 200 MG TAB.ER.12H 800 MG PO ×2 (08:48→21:46)
[2021-12-27] MEDS: clonazePAM 1 MG TABLET PO ×3 (08:48→21:45)
[2021-12-27] MEDS: Famotidine 20 MG TABLET PO ×2 (08:48→21:45)
[2021-12-27] MEDS: QUEtiapine Fumarate 200 MG TABLET PO ×2 (08:48→13:31)
[2021-12-27] MEDS: Perphenazine 8 MG TABLET 16 MG PO ×3 (08:48→21:46)
[2021-12-27] MEDS: Ascorbic Acid 250 MG TABLET PO (08:48)
--- NOTE | 2021-12-27 10:04 | HO.PSYCHPN ---
Subjective Subjective Date of Service: 12/27/21 Reason For Visit: psychosis Subjective Notes: Conditional Voluntary Healthcare Proxy: No Guardianship: No Medical Problems Affecting Mental Status: Yes (COVID+) Interim History: Patient was seen and discussed in rounds today. Records and plans were reviewed. He continues to be in isolation because of being COVID positive. He has been pleasant. Continues to be somewhat hyperverbal. Eating and sleeping adequately. Using his PRNs adequately but is requesting to increase his neck or at to q.1 hour which is what he was taking previously. This was changed. No SI. Continues to have lower extremity edema and he is off lithium for now. Medication Compliance: Yes Side effects from medications: No Attending Groups: No Review of Systems Review of Systems Lower extremity edema Yes all other systems are reviewed and are negative Diagnostics Vital Signs (24Hr): Vital Signs - 24 hr 12/26/21 20:30 12/27/21 06:00 Temperature 96.9 F 96 F L Pulse Rate 70 76 Respiratory Rate 18 Blood Pressure 148/88 H 166/93 H Pulse Oximetry 100 Oxygen Delivery Method Room Air BMI result Body Mass Index 30.3 Labs Results: 12/14/21 07:58 12/19/21 18:51 Imaging Radiology Impressions: ITS Impressions Venous Duplex 12/19/21 20:16 IMPRESSION: No DVT demonstrated in the bilateral lower extremity. Medications Medications Current Medications Acetaminophen (Acetaminophen 325 Mg Tablet) 650 mg PO Q6H PRN PRN Reason: Headache/Pain Mild Scale (1-3) Last Admin: 12/26/21 14:36 Dose: 650 mg Al Hydroxide/Mg Hydroxide (Magnesium Hydrox/Alum Hydrox 30 Ml Oral.Susp) 30 ml PO Q6H PRN PRN Reason: Heartburn/Nausea Last Admin: 12/10/21 19:22 Dose: 30 ml Albuterol Sulfate (Albuterol Sulfate 90 Mcg 8 Gm Inhaler) 2 puff INHALE Q4H PRN PRN Reason: shortness of breath or wheezing Last Admin: 12/26/21 21:31 Dose: 2 puff Artificial Tears (Artificial Tears 15 Ml Drops) 2 drop EYE-BOTH Q4H PRN PRN Reason: Dry Eyes Last Admin: 12/26/21 21:31 Dose: 2 drop Ascorbic Acid (Ascorbic Acid 250 Mg Tablet) 250 mg PO DAILY [facility] Last Admin: 12/27/21 08:48 Dose: 250 mg Benzocaine (Throat Lozenge, Medicated Lozenge) 1 lozenge MUCOUS MEM Q1H PRN PRN Reason: Sore Throat Last Admin: 12/27/21 06:54 Dose: 1 lozenge Bisacodyl (Bisacodyl 10 Mg Supp.Rect) 10 mg [place] BEDTIME PRN PRN Reason: Constipation Last Admin: 12/06/21 21:14 Dose: 10 mg Carbamazepine (Carbamazepine Er 200 Mg Tab.Er.12h) 800 mg PO BEDTIME [facility]Y Last Admin: 12/26/21 21:32 Dose: 800 mg Carbamazepine (Carbamazepine Er 200 Mg Tab.Er.12h) 800 mg PO DAILY [facility] Last Admin: 12/27/21 08:48 Dose: 800 mg Clonazepam (Clonazepam 1 Mg Tablet) 1 mg PO TID [facility] Last Admin: 12/27/21 08:48 Dose: 1 mg Doxycycline Hyclate (Doxycycline Hyclate 100 Mg Tablet) 100 mg PO Q12H [facility] Stop: 12/28/21 06:01 Last Admin: 12/27/21 06:43 Dose: 100 mg Famotidine (Famotidine 20 Mg Tablet) 20 mg PO BID [facility] Last Admin: 12/27/21 08:48 Dose: 20 mg Fluticasone/Vilanterol (Fluticasone/Vilanterol 100/25 Blst.W.Dev) 1 puff INHALE DAILY [facility] Last Admin: 12/26/21 08:41 Dose: 1 puff Guaifenesin (Guaifenesin La 600 Mg Tab.Er.12h) 600 mg PO BID PRN PRN Reason: thick secretions Last Admin: 12/26/21 14:37 Dose: 600 mg Hydroxyzine HCl (Hydroxyzine Hcl 50 Mg Tablet) 50 mg PO Q6H PRN PRN Reason: Anxiety Last Admin: 12/26/21 21:31 Dose: 50 mg Ibuprofen (Ibuprofen 600 Mg Tablet) 600 mg PO Q6H PRN PRN Reason: aches and pains Last Admin: 12/26/21 21:32 Dose: 600 mg Lactic Acid (Ammonium Lactate 12 % Lotion 226 Gm Bottle) 1 appl TOPICAL BID [facility]; Protocol Last Admin: 12/27/21 08:50 Dose: Not Given Lidocaine/Diphenhydr/Alum/Mg/Simeth (Mag&Al/Sim/Diphenhyd/Lidocaine 10 Ml Oral.Susp) 10 ml PO Q4H PRN; Protocol PRN Reason: oral mucous membrane ulcer jeremiah Last Admin: 12/20/21 02:20 Dose: 10 ml Magnesium Hydroxide (Milk Of Magnesia 30 Ml Oral.Susp) 30 ml PO DAILY PRN PRN Reason: Constipation Last Admin: 12/25/21 12:09 Dose: 30 ml Nicotine Polacrilex (Nicotine Polacrilex 2 Mg Gum) 4 mg BUCCAL Q2H PRN PRN Reason: Nicotine Cravings Last Admin: 12/27/21 06:54 Dose: 4 mg Olanzapine (Olanzapine 5 Mg Tablet) 5 mg PO Q4H PRN PRN Reason: ginny/psychosis Last Admin: 12/26/21 17:27 Dose: 5 mg Perphenazine (Perphenazine 8 Mg Tablet) 16 mg PO TID [facility] Last Admin: 12/27/21 08:48 Dose: 16 mg Prazosin HCl (Prazosin Hcl 1 Mg Capsule) 2 mg PO BEDTIME [facility]; Protocol Last Admin: 12/26/21 21:31 Dose: 2 mg Psyllium Hydrophilic Mucilloid (Psyllium Seed 3.4 Gm Powd.Pack) 3.4 gm PO BID [facility] Last Admin: 12/27/21 08:47 Dose: Not Given Quetiapine Fumarate (Quetiapine Fumarate 200 Mg Tablet) 200 mg PO BID@0900,1400 [facility] Last Admin: 12/27/21 08:48 Dose: 200 mg Quetiapine Fumarate (Quetiapine Fumarate 400 Mg Tablet) 400 mg PO BEDTIME [facility] Last Admin: 12/26/21 21:32 Dose: 400 mg Simethicone (Simethicone 80 Mg Tab.Chew) 80 mg PO QIDWMHS PRN PRN Reason: flatulence Last Admin: 12/20/21 22:49 Dose: 80 mg Tamsulosin HCl (Tamsulosin Hcl 0.4 Mg Capsule) 0.4 mg PO BEDTIME [facility] Last Admin: 12/26/21 21:32 Dose: 0.4 mg Trazodone HCl (Trazodone Hcl 50 Mg Tablet) 150 mg PO BEDTIME [facility] Last Admin: 12/26/21 21:32 Dose: 150 mg Trazodone HCl (Trazodone Hcl 50 Mg Tablet) 50 mg PO BEDTIME PRN PRN Reason: Insomnia Last Admin: 12/26/21 02:17 Dose: 50 mg Vitamin E (Vitamin E (Dl,Tocopheryl Acet) 180 Mg (400 Unit) Capsule) 180 mg PO BID [facility] Last Admin: 12/26/21 21:31 Dose: 180 mg Allergies Allergies Allergy/AdvReac Type Severity Reaction Status Date / Time divalproex sodium Allergy Severe PANCREATITI Verified 11/24/21 14:34 [From DEPAKOTE] S haloperidol [From Haldol] Allergy Intermediate DYSTONIC Verified 11/24/21 14:34 REACTION Assessment & Plan Assessment & Plan (1) Schizoaffective disorder: Status: Acute Code(s): F25.9 - Schizoaffective disorder, unspecified (2) Cellulitis: Status: Acute Code(s): L03.90 - Cellulitis, unspecified Assessment and Plan: 51yo M with COPD, HLD, obesity, BPH, ex-smoker, bipolar-type schizoaffective disorder admitted to [facility]. Developed infection of R foot yesterday as well as symptomatic Covid-19 infection without hypoxia. # nonpurulent cellulitis - doxycycline x7d. no need for blood culture. monitor clinically for improvement. (3) COVID-19: Status: Acute Code(s): U07.1 - COVID-19 Assessment and Plan: 51yo M with COPD, HLD, obesity, BPH, ex-smoker, bipolar-type schizoaffective disorder admitted to [facility]. Developed infection of R foot yesterday as well as symptomatic Covid-19 infection without hypoxia. # Covid-19 infection - not hypoxic; no steroids indicated. Paxlovid contraindicated by use of carbamezapine. can give 3 days of IV remdesivir as alternative. Monitor SaO2 qshift. beginning 12/20/21, isolation x5d then mask-wearing x5d Plan 12/03: continue home meds for now. CV rejected as pt unable to appreciate the circumstances of his admission. will need commitment and benedicto's order. T/C restarting clozaril and lithium, on which pt did well for many years, reportedly. tegretol increased from 400 BID to 600 BID at admission. 12/04: klonopin 0.5/0.5/1 reinstated 12/04 (outpt provider had started it 11/25 at 1 mg TID). magic mouthwash started for oral ulcers. 12/05: slept well last night, still pressured and disorganized.? continue current mgmt. 12/08: 12b up, applied for commitment and meds.? making sexually inappropriate comments/suggestions to staff, threatening violence and toward male peer. 12/09: same presentation as yesterday.? started lithium 450 mg BID today. 12/10: no change in presentation, compliant with lithium. 12/11: DC prazosin to see if B/L pedal edema decreases.? DC pravachol as pt is refusing it.? order lac-hydrin for plantar fissure.? otherwise continue previous mgmt.? perhaps slight decrease in pressure and disorganization. 12/12: pedal edema no worse, perhaps better.? no GI side effects from lithium.? fissure looks improved with cream.? check lithium, tegretol, associated labs on wednesday (ordered).? titrate lithium as indicated. 12/13 pt manic, disorganized, intrusive, blaming, threatening (told copywriter someone would come over and break his neck) -consider switching to Zyprexa from seroquel 12/14 her is manic, intrusive irritable, grandiose [place] level subtherapeutic; however patient is very anxious about this medication causing side effects and at this time copywriter thinks it might be better to leave it is current dose since patient continues to take it and trying to increase it may very well cause him to refuse it altogether; he is also on Tegretol.? Perhaps switching antipsychotics to Zyprexa is warranted.? Patient says he has never taken Zyprexa before.? Patient typically knows his medication history however usually when someone gets on clozapine it is because most other medications have not worked.? [place] has just reached at steady state so will hold off making medication adjustments right now to see if there can be any further benefit observed from currently lithium dose and medication regimen. 12/15 no change; clonazepam at started off and was not restarted.? Patient did take p.o. laxatives and had a bowel movement says he feels better. 12/16:? increase tegretol from 600 BID to 600/800 tonight, as level around 7.? lithium sub-therapeutic but pt resistant to increase, will see how much better he can get on higher tegretol dosing.? T/C switching anti-psychotic to zyprexa, as pt has done well on clozaril in the past.? TEDs obtained for pedal edema. 12/17: no change in mgmt.? presentation not substantially changed.? some agitation today. 12/18: presentation essentially unchanged.? no agitation today, sleeping late morning. 12/19: Assessed for pedal edema, spoke with hospitalist, BNP, BMP wnl, venous doppler wnl. Per hospitalist, continue with TEDs, may consider low dose lasix. 12/20: stable presentation.? continue current mgmt.? check tegretol level about a week after dose increase.? trending more calm than earlier in his stay but remains very psychotic.? T/C trial of olanzapine. 12/21:? taper and DC lithium and it appears to be having unsustainable physical side effects (B/L LE edema, now possibly with cellulitis).? also tested COVID POS today, satting mid 902 on RA.? hospitalist consult placed for eval of COVID severity and R/O cellulitis.? T/C olanzapine trial once lithium has been DCed. 12/22: stable, appears medically better than yesterday. continue lithium taper, to 150 BID tonight and tomorrow morning. start ibuprofen for better pain control with COVID. continue antibiotic and antiviral. 12/24 continue current tx. O2 sat >93, no s/s of respiratory distress. afebrile. 12/25: course of remdesivir complete, doxy ongoing. rash has not spread, likely related to edema and dependent limbs. less purpuric and more pinpoint red with bruising. edema improved. c/o productive cough, expectorant Rx'ed. otherwise continue current mgmt. per CDC guidelines, persons with moderate COVID (which includes having oxygen saturation less than 94%) should isolate for 10 days. 12/26: stable, in quarantine day #6 of . continue current mgmt. check labs on wednesday morning. 12/27: Continue current regimen and plans. Continue quarantine. I spent minutes with the patient and/or on the patient floor today, greater than?50% of which was spent counseling/coordinating care. Reason for contiued inpatient stay Substantial Risk for: med/psych decompensation
[2021-12-27] MEDS: Vitamin E (Dl,Tocopheryl Acet) 180 MG (400 UNIT) CAPSULE PO ×2 (10:35→21:47)
[2021-12-27] MEDS: hydrOXYzine HCL 50 MG TABLET PO ×2 (11:24→21:49)
[2021-12-27] MEDS: Ibuprofen 600 MG TABLET PO ×2 (11:24→21:47)
[2021-12-27 21:30] VITALS: BP 146/76; PULSE 72; RESP 169; TEMP 35.5; O2SAT 99
[2021-12-27] MEDS: Prazosin HCL 1 MG CAPSULE 2 MG PO (21:46)
[2021-12-27] MEDS: traZODone HCL 50 MG TABLET 150 MG PO (21:46)
[2021-12-27] MEDS: Tamsulosin HCL 0.4 MG CAPSULE PO (21:46)
[2021-12-27] MEDS: OLANZapine 5 MG TABLET PO (21:46)
[2021-12-27] MEDS: Artificial Tears 15 ML DROPS 2 DROP EYE-BOTH (21:47)
[2021-12-27] MEDS: QUEtiapine Fumarate 400 MG TABLET PO (21:47)
[2021-12-27] MEDS: guaiFENesin LA 600 MG TAB.ER.12H PO (22:33)
[2021-12-28] MEDS: Nicotine Polacrilex 2 MG GUM 4 MG BUCCAL ×7 (00:30→22:52)
[2021-12-28] MEDS: carBAMazepine ER 200 MG TAB.ER.12H 800 MG PO ×2 (09:14→22:32)
[2021-12-28] MEDS: Ascorbic Acid 250 MG TABLET PO (09:14)
[2021-12-28] MEDS: QUEtiapine Fumarate 200 MG TABLET PO ×2 (09:14→14:15)
[2021-12-28] MEDS: Perphenazine 8 MG TABLET 16 MG PO ×3 (09:14→22:32)
[2021-12-28] MEDS: Famotidine 20 MG TABLET PO ×2 (09:14→22:33)
[2021-12-28] MEDS: clonazePAM 1 MG TABLET PO ×3 (09:14→22:32)
[2021-12-28] MEDS: Vitamin E (Dl,Tocopheryl Acet) 180 MG (400 UNIT) CAPSULE PO ×2 (09:14→22:32)
[2021-12-28 09:34] VITALS: BP 153/87; PULSE 73; RESP 16; TEMP 36.1; O2SAT 99
--- NOTE | 2021-12-28 10:10 | P.PNPSI_ITS ---
Subjective Subjective Date of Service: 12/28/21 Reason For Visit: psychosis Subjective Notes: Conditional Voluntary Healthcare Proxy: No Guardianship: No Medical Problems Affecting Mental Status: Yes (COVID+) Interim History: Patient was seen and discussed in rounds today. Records and plans were reviewed. He continues to be in isolation because of being COVID positive. He has been stable physically. No complaints or symptoms. He continues to have some edema, 3+. He has been taking his neck red gums hourly and I suggested for him to start decreasing get because the increase was a temporary step and he states that this is the dose he is used to and he will never stop using Nicoret te gums. He denies any side effects. No SI. No changes were made today. Eating and sleeping adequately. Medication Compliance: Yes Side effects from medications: No Attending Groups: No Review of Systems Review of Systems Lower extremity edema Yes all other systems are reviewed and are negative Mental Status Exam Mental Status Exam Narrative: In today's visit he is alert, pleasant and interactive. Normal speech. Moderate eye contact. Affect is appropriate and varied. No acute signs of psychosis. No SI. No auditory or visual hallucinations. No overt delusions. He is grossly cognitively intact. Judgment is marginally intact Diagnostics Vital Signs (24Hr): Vital Signs - 24 hr 12/27/21 21:30 12/28/21 09:34 Temperature 96 F L 97 F Pulse Rate 72 73 Respiratory Rate 169 H 16 Blood Pressure 146/76 H 153/87 H Pulse Oximetry 99 99 Oxygen Delivery Method Room Air Room Air BMI result Body Mass Index 30.3 Labs Results: 12/14/21 07:58 12/19/21 18:51 Imaging Radiology Impressions: ITS Impressions Venous Duplex 12/19/21 20:16 IMPRESSION: No DVT demonstrated in the bilateral lower extremity. Medications Medications Current Medications Acetaminophen (Acetaminophen 325 Mg Tablet) 650 mg PO Q6H PRN PRN Reason: Headache/Pain Mild Scale (1-3) Last Admin: 12/26/21 14:36 Dose: 650 mg Al Hydroxide/Mg Hydroxide (Magnesium Hydrox/Alum Hydrox 30 Ml Oral.Susp) 30 ml PO Q6H PRN PRN Reason: Heartburn/Nausea Last Admin: 12/10/21 19:22 Dose: 30 ml Albuterol Sulfate (Albuterol Sulfate 90 Mcg 8 Gm Inhaler) 2 puff INHALE Q4H PRN PRN Reason: shortness of breath or wheezing Last Admin: 12/26/21 21:31 Dose: 2 puff Artificial Tears (Artificial Tears 15 Ml Drops) 2 drop EYE-BOTH Q4H PRN PRN Reason: Dry Eyes Last Admin: 12/27/21 21:47 Dose: 2 drop Ascorbic Acid (Ascorbic Acid 250 Mg Tablet) 250 mg PO DAILY [facility] Last Admin: 12/28/21 09:14 Dose: 250 mg Benzocaine (Throat Lozenge, Medicated Lozenge) 1 lozenge MUCOUS MEM Q1H PRN PRN Reason: Sore Throat Last Admin: 12/27/21 06:54 Dose: 1 lozenge Bisacodyl (Bisacodyl 10 Mg Supp.Rect) 10 mg [place] BEDTIME PRN PRN Reason: Constipation Last Admin: 12/06/21 21:14 Dose: 10 mg Carbamazepine (Carbamazepine Er 200 Mg Tab.Er.12h) 800 mg PO BEDTIME [facility] Last Admin: 12/27/21 21:46 Dose: 800 mg Carbamazepine (Carbamazepine Er 200 Mg Tab.Er.12h) 800 mg PO DAILY [facility] Last Admin: 12/28/21 09:14 Dose: 800 mg Clonazepam (Clonazepam 1 Mg Tablet) 1 mg PO TID [facility] Last Admin: 12/28/21 09:14 Dose: 1 mg Famotidine (Famotidine 20 Mg Tablet) 20 mg PO BID [facility] Last Admin: 12/28/21 09:14 Dose: 20 mg Fluticasone/Vilanterol (Fluticasone/Vilanterol 100/25 Blst.W.Dev) 1 puff INHALE DAILY [facility] Last Admin: 12/28/21 09:33 Dose: Not Given Guaifenesin (Guaifenesin La 600 Mg Tab.Er.12h) 600 mg PO BID PRN PRN Reason: thick secretions Last Admin: 12/27/21 22:33 Dose: 600 mg Hydroxyzine HCl (Hydroxyzine Hcl 50 Mg Tablet) 50 mg PO Q6H PRN PRN Reason: Anxiety Last Admin: 12/27/21 21:49 Dose: 50 mg Ibuprofen (Ibuprofen 600 Mg Tablet) 600 mg PO Q6H PRN PRN Reason: aches and pains Last Admin: 12/27/21 21:47 Dose: 600 mg Lactic Acid (Ammonium Lactate 12 % Lotion 226 Gm Bottle) 1 appl TOPICAL BID [facility]; Protocol Last Admin: 12/28/21 09:33 Dose: Not Given Lidocaine/Diphenhydr/Alum/Mg/Simeth (Mag&Al/Sim/Diphenhyd/Lidocaine 10 Ml Oral.Susp) 10 ml PO Q4H PRN; Protocol PRN Reason: oral mucous membrane ulcer jeremiah Last Admin: 12/20/21 02:20 Dose: 10 ml Magnesium Hydroxide (Milk Of Magnesia 30 Ml Oral.Susp) 30 ml PO DAILY PRN PRN Reason: Constipation Last Admin: 12/25/21 12:09 Dose: 30 ml Nicotine Polacrilex (Nicotine Polacrilex 2 Mg Gum) 4 mg BUCCAL Q1H PRN PRN Reason: Nicotine Cravings Last Admin: 12/28/21 05:19 Dose: 4 mg Olanzapine (Olanzapine 5 Mg Tablet) 5 mg PO Q4H PRN PRN Reason: ginny/psychosis Last Admin: 12/27/21 21:46 Dose: 5 mg Perphenazine (Perphenazine 8 Mg Tablet) 16 mg PO TID [facility] Last Admin: 12/28/21 09:14 Dose: 16 mg Prazosin HCl (Prazosin Hcl 1 Mg Capsule) 2 mg PO BEDTIME [facility]; Protocol Last Admin: 12/27/21 21:46 Dose: 2 mg Psyllium Hydrophilic Mucilloid (Psyllium Seed 3.4 Gm Powd.Pack) 3.4 gm PO BID [facility] Last Admin: 12/28/21 09:14 Dose: Not Given Quetiapine Fumarate (Quetiapine Fumarate 200 Mg Tablet) 200 mg PO BID@0900,1400 [facility] Last Admin: 12/28/21 09:14 Dose: 200 mg Quetiapine Fumarate (Quetiapine Fumarate 400 Mg Tablet) 400 mg PO BEDTIME [facility] Last Admin: 12/27/21 21:47 Dose: 400 mg Simethicone (Simethicone 80 Mg Tab.Chew) 80 mg PO QIDWMHS PRN PRN Reason: flatulence Last Admin: 12/20/21 22:49 Dose: 80 mg Tamsulosin HCl (Tamsulosin Hcl 0.4 Mg Capsule) 0.4 mg PO BEDTIME [facility] Last Admin: 12/27/21 21:46 Dose: 0.4 mg Trazodone HCl (Trazodone Hcl 50 Mg Tablet) 150 mg PO BEDTIME [facility] Last Admin: 12/27/21 21:46 Dose: 150 mg Trazodone HCl (Trazodone Hcl 50 Mg Tablet) 50 mg PO BEDTIME PRN PRN Reason: Insomnia Last Admin: 12/26/21 02:17 Dose: 50 mg Vitamin E (Vitamin E (Dl,Tocopheryl Acet) 180 Mg (400 Unit) Capsule) 180 mg PO BID [facility] Last Admin: 12/28/21 09:14 Dose: 180 mg Allergies Allergies Allergy/AdvReac Type Severity Reaction Status Date / Time divalproex sodium Allergy Severe PANCREATITI Verified 11/24/21 14:34 [From DEPAKOTE] S haloperidol [From Haldol] Allergy Intermediate DYSTONIC Verified 11/24/21 14:34 REACTION Assessment & Plan Assessment & Plan (1) Schizoaffective disorder: Status: Acute Code(s): F25.9 - Schizoaffective disorder, unspecified (2) Cellulitis: Status: Acute Code(s): L03.90 - Cellulitis, unspecified Assessment and Plan: 51yo M with COPD, HLD, obesity, BPH, ex-smoker, bipolar-type schizoaffective disorder admitted to [facility]. Developed infection of R foot yesterday as well as symptomatic Covid-19 infection without hypoxia. # nonpurulent cellulitis - doxycycline x7d. no need for blood culture. monitor clinically for improvement. (3) COVID-19: Status: Acute Code(s): U07.1 - COVID-19 Assessment and Plan: 51yo M with COPD, HLD, obesity, BPH, ex-smoker, bipolar-type schizoaffective disorder admitted to [facility]. Developed infection of R foot yesterday as well as sy mptomatic Covid-19 infection without hypoxia. # Covid-19 infection - not hypoxic; no steroids indicated. Paxlovid contraindicated by use of carbamezapine. can give 3 days of IV remdesivir as alternative. Monitor SaO2 qshift. beginning 12/20/21, isolation x5d then mask-wearing x5d Plan 12/03: continue home meds for now. CV rejected as pt unable to appreciate the circumstances of his admission. will need commitment and benedicto's order. T/C restarting clozaril and lithium, on which pt did well for many years, reportedly. tegretol increased from 400 BID to 600 BID at admission. 12/04: klonopin 0.5/0.5/1 reinstated 12/04 (outpt provider had started it 11/25 at 1 mg TID). magic mouthwash started for oral ulcers. 12/05: slept well last night, still pressured and disorganized.? continue current mgmt. 12/08: 12b up, applied for commitment and meds.? making sexually inappropriate comments/suggestions to staff, threatening violence and toward male peer. 12/09: same presentation as yesterday.? started lithium 450 mg BID today. 12/10: no change in presentation, compliant with lithium. 12/11: DC prazosin to see if B/L pedal edema decreases.? DC pravachol as pt is refusing it.? order lac-hydrin for plantar fissure.? otherwise continue previous mgmt.? perhaps slight decrease in pressure and disorganization. 12/12: pedal edema no worse, perhaps better.? no GI side effects from lithium.? fissure looks improved with cream.? check lithium, tegretol, associated labs on wednesday (ordered).? titrate lithium as indicated. 12/13 pt manic, disorganized, intrusive, blaming, threatening (told technical document writer someone would come over and break his neck) -consider switching to Zyprexa from seroquel 12/14 her is manic, intrusive irritable, grandiose [place] level subtherapeutic; however patient is very anxious about this medication causing side effects and at this time technical document writer thinks it might be better to leave it is current dose since patient continues to take it and trying to increase it may very well cause him to refuse it altogether; he is also on Tegretol.? Perhaps switching antipsychotics to Zyprexa is warranted.? Patient says he has never taken Zyprexa before.? Patient typically knows his medication history however usually when someone gets on clozapine it is because most other medications have not worked.? [place] has just reached at steady state so will hold off making medication adjustments right now to see if there can be any further benefit observed from currently lithium dose and medication regimen. 12/15 no change; clonazepam at started off and was not restarted.? Patient did take p.o. laxatives and had a bowel movement says he feels better. 12/16:? increase tegretol from 600 BID to 600/800 tonight, as level around 7.? lithium sub-therapeutic but pt resistant to increase, will see how much better he can get on higher tegretol dosing.? T/C switching anti-psychotic to zyprexa, as pt has done well on clozaril in the past.? TEDs obtained for pedal edema. 12/17: no change in mgmt.? presentation not substantially changed.? some [place]sl[place] tation today. 12/18: presentation essentially unchanged.? no agitation today, sleeping late morning. 12/19: Assessed for pedal edema, spoke with hospitalist, BNP, BMP wnl, venous doppler wnl. Per hospitalist, continue with TEDs, may consider low dose lasix. 12/20: stable presentation.? continue current mgmt.? check tegretol level about a week after dose increase.? trending more calm than earlier in his stay but remains very psychotic.? T/C trial of olanzapine. 12/21:? taper and DC lithium and it appears to be having unsustainable physical side effects (B/L LE edema, now possibly with cellulitis).? also tested COVID POS today, satting mid 902 on RA.? hospitalist consult placed for eval of COVID severity and R/O cellulitis.? T/C olanzapine trial once lithium has been DCed. 12/22: stable, appears medically better than yesterday. continue lithium taper, to 150 BID tonight and tomorrow morning. start ibuprofen for better pain control with COVID. continue antibiotic and antiviral. 12/24 continue current tx. O2 sat >93, no s/s of respiratory distress. afebrile. 12/25: course of remdesivir complete, doxy ongoing. rash has not spread, likely related to edema and dependent limbs. less purpuric and more pinpoint red with bruising. edema improved. c/o productive cough, expectorant Rx'ed. otherwise continue current mgmt. per CDC guidelines, persons with moderate COVID (which includes having oxygen saturation less than 94%) should isolate for 10 days. 12/26: stable, in quarantine day #6 of 10. continue current mgmt. check labs on wednesday morning. 12/27: Continue current regimen and plans. Continue quarantine. 12/28: Continue current plans and regimen I spent minutes with the patient and/or on the patient floor today, greater than?50% of which was spent counseling/coordinating care. Reason for contiued inpatient stay Substantial Risk for: med/psych decompensation
[2021-12-28] MEDS: OLANZapine 5 MG TABLET PO (14:26)
[2021-12-28] MEDS: hydrOXYzine HCL 50 MG TABLET PO (14:26)
[2021-12-28] MEDS: Ibuprofen 600 MG TABLET PO ×2 (14:26→22:33)
[2021-12-28 21:00] VITALS: BP 148/83; PULSE 75; RESP 18; TEMP 36.1; O2SAT 100
[2021-12-28] MEDS: Prazosin HCL 1 MG CAPSULE 2 MG PO (22:31)
[2021-12-28] MEDS: Tamsulosin HCL 0.4 MG CAPSULE PO (22:31)
[2021-12-28] MEDS: traZODone HCL 50 MG TABLET 150 MG PO (22:32)
[2021-12-28] MEDS: QUEtiapine Fumarate 400 MG TABLET PO (22:32)
[2021-12-29] MEDS: Nicotine Polacrilex 2 MG GUM 4 MG BUCCAL ×8 (01:40→20:42)
[2021-12-29] MEDS: Ammonium Lactate 12 % Lotion 226 GM BOTTLE 1 APPL TOPICAL (02:30)
[2021-12-29] MEDS: Vitamin E (Dl,Tocopheryl Acet) 180 MG (400 UNIT) CAPSULE PO ×2 (08:36→20:59)
[2021-12-29] MEDS: carBAMazepine ER 200 MG TAB.ER.12H 800 MG PO ×2 (08:36→20:59)
[2021-12-29] MEDS: Perphenazine 8 MG TABLET 16 MG PO ×3 (08:36→20:59)
[2021-12-29] MEDS: Ibuprofen 600 MG TABLET PO ×3 (08:37→20:59)
[2021-12-29] MEDS: QUEtiapine Fumarate 200 MG TABLET PO ×2 (08:37→14:39)
[2021-12-29] MEDS: Ascorbic Acid 250 MG TABLET PO (08:37)
[2021-12-29] MEDS: hydrOXYzine HCL 50 MG TABLET PO ×3 (08:37→20:59)
[2021-12-29] MEDS: clonazePAM 1 MG TABLET PO ×3 (08:37→20:59)
[2021-12-29] MEDS: Famotidine 20 MG TABLET PO (08:38)
[2021-12-29 08:53] VITALS: BP 128/79; PULSE 78; RESP 18; TEMP 35.7; O2SAT 99
[2021-12-29 09:04] LABS: MANUAL DIFF FLAG NO
[2021-12-29 09:14] LABS: Basophils Percent Auto 0.3 % (0-2); Eosinophils Absolute Auto 0.2 X10*3/uL (0.0-0.4); Eosinophils Percent Auto 2.6 % (0-4); Hemoglobin 13.2 g/dl (14.0-18.0); Imm Gran Abs Auto 0.03 X10*3/uL (0.00-0.03); Imm Gran Pct Auto 0.5 % (0.0-0.4); Lymphocytes Absolute Auto 1.6 X10*3/uL (1.2-4.9); Lymphocytes Percent Auto 26.7 % (20-40); Mean Corpuscular HGB Conc 32.2 g/dl (31.0-36.0); Mean Corpuscular Hemoglobin 30.1 pg (27.0-33.0); Mean Corpuscular Volume 93.4 fL (80.0-98.0); Mean Platelet Volume 9.9 fL (9.4-12.4); Monocytes Absolute Auto 0.5 X10*3/uL (0.1-1.2); Monocytes Percent Auto 8.9 % (2-11); Neutrophils Absolute Auto 3.7 x10*3/uL (2.0-8.3); Platelet Count 246 X10*3/uL (160-400); Red Blood Count 4.39 X10*6/uL (4.60-5.80); Red Cell Distribution Width 12.6 % (11.0-16.0)
[2021-12-29 09:47] LABS: Alanine Aminotransferase 30 U/L (0-40); Alkaline Phosphatase 73 U/L (39-117); Anion Gap 15 (12-20); Aspartate Amino Transferase 20 U/L (5-37); Bilirubin Direct 0.2 mg/dL (0.0-0.5); Bilirubin Total 0.3 mg/dL (0.0-1.0); Blood Urea Nitrogen 16 mg/dL (9-16); Calcium 8.9 mg/dL (8.4-10.2); Carbon Dioxide 26 mmol/L (22-29); Chloride 105 mmol/L (96-108); Creatinine Clr Calc Pharmacy 134.5; Estimated Glomerular Filt Rate > 60; Glucose Random 92 mg/dL (60-115); Potassium 4.6 mmol/L (3.3-5.1); Sodium 141 mmol/L (135-145); Total Protein 6.3 g/dL (6.5-8.0)
--- NOTE | 2021-12-29 14:08 | P.PNPSI_ITS ---
Subjective Subjective Date of Service: 12/29/21 Reason For Visit: psychosis Interim History: pt roused from a sound slumber in his bed in early afternoon. calm and cooperative until MD leaving room, when pt throws ball very hard against the wall. MD counsels pt bouncing ball calmly an din a controlled manner is OK, but not as he just did it. non-sequitur response. pt appears substantially worse than he was last week (when still having some lithium in his system). tegretol level 8. disorganized spontaneously but also able to have brief bits of directed and productive conversation. Mental Status Exam Mental Status Exam Narrative: prone on his bed asleep, rousable to loud voice. behavior is cooperative and calm, mildly agitated at the end of the interview; dressed in hospital carlin, adequate hygiene; affect normo-intense, min-labile; Speech incr rate, nml loudness. nml prosody, decr latency; thought process largely disorganized; no SI/HI/AVH expressed. Patients insight and judgment are impaired. Diagnostics Vital Signs (24Hr): Vital Signs - 24 hr 12/28/21 21:00 12/29/21 08:53 Temperature 96.9 F 96.2 F L Pulse Rate 75 78 Respiratory Rate 18 18 Blood Pressure 148/83 H 128/79 Pulse Oximetry 100 99 Oxygen Delivery Method Room Air Room Air BMI result Body Mass Index 30.3 Labs Results: 12/29/21 08:55 12/29/21 08:55 Labs: Laboratory Results - last 48 hr 12/29/21 12/29/21 08:55 08:55 WBC 6.0 RBC 4.39 L Hgb 13.2 L Hct 41.0 L MCV 93.4 MCH 30.1 MCHC 32.2 RDW 12.6 Plt Count 246 MPV 9.9 Immature Gran % (Auto) 0.5 H Neut % (Auto) 61.0 Lymph % (Auto) 26.7 [place] % (Auto) 8.9 Eos % (Auto) 2.6 Baso % (Auto) 0.3 Lymph # (Auto) 1.6 [place] # (Auto) 0.5 Eos # (Auto) 0.2 Baso # (Auto) 0.0 Abs Immat Gran (auto) 0.03 Absolute Neuts (auto) 3.7 Absolute Nucleated RBC 0.000 Nucleated RBC % (auto) 0.0 Sodium 141 Potassium 4.6 Chloride 105 Carbon Dioxide 26 Anion Gap 15 BUN 16 Creatinine 0.87 Estim Creat Clear Calc 134.5 Estimated GFR > 60 Random Glucose 92 D Calcium 8.9 Total Bilirubin 0.3 Direct Bilirubin 0.2 AST 20 ALT 30 Alkaline Phosphatase 73 Total Protein 6.3 L Albumin 4.0 Carbamazepine 8.0 Imaging Radiology Impressions: ITS Impressions Venous Duplex 12/19/21 20:16 IMPRESSION: No DVT demonstrated in the bilateral lower extremity. Medications Medications Current Medications Acetaminophen (Acetaminophen 325 Mg Tablet) 650 mg PO Q6H PRN PRN Reason: Headache/Pain Mild Scale (1-3) Last Admin: 12/26/21 14:36 Dose: 650 mg Al Hydroxide/Mg Hydroxide (Magnesium Hydrox/Alum Hydrox 30 Ml Oral.Susp) 30 ml PO Q6H PRN PRN Reason: Heartburn/Nausea Last Admin: 12/10/21 19:22 Dose: 30 ml Albuterol Sulfate (Albuterol Sulfate 90 Mcg 8 Gm Inhaler) 2 puff INHALE Q4H PRN PRN Reason: shortness of breath or wheezing Last Admin: 12/26/21 21:31 Dose: 2 puff Artificial Tears (Artificial Tears 15 Ml Drops) 2 drop EYE-BOTH Q4H PRN PRN Reason: Dry Eyes Last Admin: 12/27/21 21:47 Dose: 2 drop Ascorbic Acid (Ascorbic Acid 250 Mg Tablet) 250 mg PO DAILY [facility] Last Admin: 12/29/21 08:37 Dose: 250 mg Benzocaine (Throat Lozenge, Medicated Lozenge) 1 lozenge MUCOUS MEM Q1H PRN PRN Reason: Sore Throat Last Admin: 12/27/21 06:54 Dose: 1 lozenge Bisacodyl (Bisacodyl 10 Mg Supp.Rect) 10 mg TX BEDTIME PRN PRN Reason: Constipation Last Admin: 12/06/21 21:14 Dose: 10 mg Carbamazepine (Carbamazepine Er 200 Mg Tab.Er.12h) 800 mg PO BEDTIME [facility]Y Last Admin: 12/28/21 22:32 Dose: 800 mg Carbamazepine (Carbamazepine Er 200 Mg Tab.Er.12h) 800 mg PO DAILY [facility] [place] Last Admin: 12/29/21 08:36 Dose: 800 mg Clonazepam (Clonazepam 1 Mg Tablet) 1 mg PO TID [facility] Last Admin: 12/29/21 08:37 Dose: 1 mg Famotidine (Famotidine 20 Mg Tablet) 20 mg PO BID DAVY Last Admin: 12/29/21 08:38 Dose: 20 mg Fluticasone/Vilanterol (Fluticasone/Vilanterol 100/25 Blst.W.Dev) 1 puff INHALE DAILY [facility] Last Admin: 12/29/21 09:01 Dose: Not Given Guaifenesin (Guaifenesin La 600 Mg Tab.Er.12h) 600 mg PO BID PRN PRN Reason: thick secretions Last Admin: 12/27/21 22:33 Dose: 600 mg Hydroxyzine HCl (Hydroxyzine Hcl 50 Mg Tablet) 50 mg PO Q6H PRN PRN Reason: Anxiety Last Admin: 12/29/21 08:37 Dose: 50 mg Ibuprofen (Ibuprofen 600 Mg Tablet) 600 mg PO Q6H PRN PRN Reason: aches and pains Last Admin: 12/29/21 08:37 Dose: 600 mg Lactic Acid (Ammonium Lactate 12 % Lotion 226 Gm Bottle) 1 appl TOPICAL BID DAVY; Protocol Last Admin: 12/29/21 09:01 Dose: Not Given Lidocaine/Diphenhydr/Alum/Mg/Simeth (Mag&Al/Sim/Diphenhyd/Lidocaine 10 Ml Oral.Susp) 10 ml PO Q4H PRN; Protocol PRN Reason: oral mucous membrane ulcer jeremiah Last Admin: 12/20/21 02:20 Dose: 10 ml Magnesium Hydroxide (Milk Of Magnesia 30 Ml Oral.Susp) 30 ml PO DAILY PRN PRN Reason: Constipation Last Admin: 12/25/21 12:09 Dose: 30 ml Nicotine Polacrilex (Nicotine Polacrilex 2 Mg Gum) 4 mg BUCCAL Q1H PRN PRN Reason: Nicotine Cravings Last Admin: 12/29/21 08:35 Dose: 4 mg Olanzapine (Olanzapine 5 Mg Tablet) 5 mg PO Q4H PRN PRN Reason: ginny/psychosis Last Admin: 12/28/21 14:26 Dose: 5 mg Perphenazine (Perphenazine 8 Mg Tablet) 16 mg PO TID DAVY Last Admin: 12/29/21 08:36 Dose: 16 mg Prazosin HCl (Prazosin Hcl 1 Mg Capsule) 2 mg PO BEDTIME DAVY; Protocol Last Admin: 12/28/21 22:31 Dose: 2 mg Psyllium Hydrophilic Mucilloid (Psyllium Seed 3.4 Gm Powd.Pack) 3.4 gm PO BID [facility] Last Admin: 12/29/21 09:01 Dose: Not Given Quetiapine Fumarate (Quetiapine Fumarate 200 Mg Tablet) 200 mg PO BID@0900,1400 [facility] Last Admin: 12/29/21 08:37 Dose: 200 mg Quetiapine Fumarate (Quetiapine Fumarate 400 Mg Tablet) 400 mg PO BEDTIME [facility] [place] Last Admin: 12/28/21 22:32 Dose: 400 mg Simethicone (Simethicone 80 Mg Tab.Chew) 80 mg PO QIDWMHS PRN PRN Reason: flatulence Last Admin: 12/20/21 22:49 Dose: 80 mg Tamsulosin HCl (Tamsulosin Hcl 0.4 Mg Capsule) 0.4 mg PO BEDTIME [facility] [place] Last Admin: 12/28/21 22:31 Dose: 0.4 mg Trazodone HCl (Trazodone Hcl 50 Mg Tablet) 150 mg PO BEDTIME [facility] [place] Last Admin: 12/28/21 22:32 Dose: 150 mg Trazodone HCl (Trazodone Hcl 50 Mg Tablet) 50 mg PO BEDTIME PRN PRN Reason: Insomnia Last Admin: 12/26/21 02:17 Dose: 50 mg Vitamin E (Vitamin E (Dl,Tocopheryl Acet) 180 Mg (400 Unit) Capsule) 180 mg PO BID [facility] [place] Last Admin: 12/29/21 08:36 Dose: 180 mg Allergies Allergies Allergy/AdvReac Type Severity Reaction Status Date / Time divalproex sodium Allergy Severe PANCREATITI Verified 11/24/21 14:34 [From DEPAKOTE] S haloperidol [From Haldol] Allergy Intermediate DYSTONIC Verified 11/24/21 14:34 REACTION Assessment & Plan Assessment & Plan (1) Schizoaffective disorder: Status: Acute Code(s): F25.9 - Schizoaffective disorder, unspecified (2) Cellulitis: Status: Acute Code(s): L03.90 - Cellulitis, unspecified Assessment and Plan: 51yo M with COPD, HLD, obesity, BPH, ex-smoker, bipolar-type schizoaffective disorder admitted to [facility]. Developed infection of R foot yesterday as well as symptomatic Covid-19 infection without hypoxia. # nonpurulent cellulitis - doxycycline x7d. no need for blood culture. monitor clinically for improvement. (3) COVID-19: Status: Acute Code(s): U07.1 - COVID-19 Assessment and Plan: 51yo M with COPD, HLD, obesity, BPH, ex-smoker, bipolar-type schizoaffective disorder admitted to [facility]. Developed infection of R foot yesterday as well as symptomatic Covid-19 infection without hypoxia. # Covid-19 infection - not hypoxic; no steroids indicated. Paxlovid contraindicated by use of carbamezapine. can give 3 days of IV remdesivir as alternative. Monitor SaO2 qshift. beginning 12/20/21, isolation x5d then mask-wearing x5d Plan 12/03: continue home meds for now. CV rejected as pt unable to appreciate the circumstances of his admission. will need commitment and benedicto's order. T/C restarting clozaril and lithium, on which pt did well for many years, reportedly. tegretol increased from 400 BID to 600 BID at admission. 12/04: klonopin 0.5/0.5/1 reinstated 12/04 (outpt provider had started it 11/25 at 1 mg TID). magic mouthwash started for oral ulcers. 12/05: slept well last night, still pressured and disorganized.? continue current mgmt. 12/08: 12b up, applied for commitment and meds.? making sexually inappropriate comments/suggestions to staff, threatening violence and toward male peer. 12/09: same presentation as yesterday.? started lithium 450 mg BID today. 12/10: no change in presentation, compliant with lithium. 12/11: DC prazosin to see if B/L pedal edema decreases.? DC pravachol as pt is refusing it.? order lac-hydrin for plantar fissure.? otherwise continue previous mgmt.? perhaps slight decrease in pressure and disorganization. 12/12: pedal edema no worse, perhaps better.? no GI side effects from lithium.? fissure looks improved with cream.? check lithium, tegretol, associated labs on wednesday (ordered).? titrate lithium as indicated. 12/13 pt manic, disorganized, intrusive, blaming, threatening (told radio news writer someone would come over and break his neck) -consider switching to Zyprexa from seroquel 12/14 her is manic, intrusive irritable, grandiose [place] level subtherapeutic; however patient is very anxious about this medication causing side effects and at this time radio news writer thinks it might be better to leave it is current dose since patient continues to take it and trying to increase it may very well cause him to refuse it altogether; he is also on Tegretol.? Perhaps switching antipsychotics to Zyprexa is warranted.? Patient says he has never taken Zyprexa before.? Patient typically knows his medication history however usually when someone gets on clozapine it is because most other medications have not worked.? [place] has just reached at steady state so will hold off making medication adjustments right now to see if there can be any further benefit observed from currently lithium dose and medication regimen. 12/15 no change; clonazepam at started off and was not restarted.? Patient did take p.o. laxatives and had a bowel movement says he feels better. 12/16:? increase tegretol from 600 BID to 600/800 tonight, as level around 7.? lithium sub-therapeutic but pt resistant to increase, will see how much better he can get on higher tegretol dosing.? T/C switching anti-psychotic to zyprexa, as pt has done well on clozaril in the past.? TEDs obtained for pedal edema. 12/17: no change in mgmt.? presentation not substantially changed.? some agitation today. 12/18: presentation essentially unchanged.? no agitation today, sleeping late morning. 12/19: Assessed for pedal edema, spoke with hospitalist, BNP, BMP wnl, venous doppler wnl. Per hospitalist, continue with TEDs, may consider low dose lasix. 12/20: stable presentation.? continue current mgmt.? check tegretol level about a week after dose increase.? trending more calm than earlier in his stay but remains very psychotic.? T/C trial of olanzapine. 12/21:? taper and DC lithium and it appears to be having unsustainable physical side effects (B/L LE edema, now possibly with cellulitis).? also tested COVID POS today, satting mid 902 on RA.? hospitalist consult placed for eval of COVID severity and R/O cellulitis.? T/C olanzapine trial once lithium has been DCed. 12/22: stable, appears medically better than yesterday. continue lithium taper, to 150 BID tonight and tomorrow morning. start ibuprofen for better pain contr ol with COVID. continue antibiotic and antiviral. 12/24 continue current tx. O2 sat >93, no s/s of respiratory distress. afebrile. 12/25: course of remdesivir complete, doxy ongoing. rash has not spread, likely related to edema and dependent limbs. less purpuric and more pinpoint red with bruising. edema improved. c/o productive cough, expectorant Rx'ed. otherwise continue current mgmt. per CDC guidelines, persons with moderate COVID (which includes having oxygen saturation less than 94%) should isolate for 10 days. 12/26: stable, in quarantine day #6 of . continue current mgmt. check labs on wednesday morning. 12/27: Continue current regimen and plans. Continue quarantine. 12/28: Continue current plans and regimen 12/29: increasingly disorganized and hyperverbal since DC of lithium. B/L pedal edema dose seem to be improving. day #9 of quarantine. tegretol level 8, other labs unremarkable aside from anemia. I spent ___25___ minutes with the patient and/or on the patient floor today, greater than?50% of which was spent counseling/coordinating care. Reason for contiued inpatient stay Substantial Risk for: inability to function and rapid decompensation
[2021-12-29] MEDS: OLANZapine 5 MG TABLET PO ×2 (14:39→20:59)
[2021-12-29 19:30] VITALS: BP 135/86; PULSE 70; RESP 18; TEMP 36.1; O2SAT 99
[2021-12-29] MEDS: traZODone HCL 50 MG TABLET 150 MG PO (20:58)
[2021-12-29] MEDS: Prazosin HCL 1 MG CAPSULE 2 MG PO (20:58)
[2021-12-29] MEDS: QUEtiapine Fumarate 400 MG TABLET PO (20:59)
[2021-12-29] MEDS: Tamsulosin HCL 0.4 MG CAPSULE PO (20:59)
[2021-12-29] MEDS: traZODone HCL 50 MG TABLET PO (20:59)
[2021-12-30] MEDS: Milk of Magnesia 30 ML ORAL.SUSP PO (00:14)
[2021-12-30] MEDS: Nicotine Polacrilex 2 MG GUM 4 MG BUCCAL ×11 (00:14→23:59)
[2021-12-30] MEDS: Vitamin E (Dl,Tocopheryl Acet) 180 MG (400 UNIT) CAPSULE PO ×2 (08:27→21:53)
[2021-12-30] MEDS: clonazePAM 1 MG TABLET PO ×3 (08:27→21:53)
[2021-12-30] MEDS: Ascorbic Acid 250 MG TABLET PO (08:27)
[2021-12-30] MEDS: hydrOXYzine HCL 50 MG TABLET PO ×3 (08:27→22:30)
[2021-12-30] MEDS: Perphenazine 8 MG TABLET 16 MG PO ×3 (08:27→21:52)
[2021-12-30] MEDS: carBAMazepine ER 200 MG TAB.ER.12H 800 MG PO ×2 (08:28→21:54)
[2021-12-30] MEDS: Ibuprofen 600 MG TABLET PO ×2 (08:28→14:22)
[2021-12-30] MEDS: QUEtiapine Fumarate 200 MG TABLET PO ×3 (08:28→22:30)
[2021-12-30] MEDS: Famotidine 20 MG TABLET PO ×2 (08:28→21:54)
[2021-12-30 08:49] VITALS: BP 130/78; PULSE 76; RESP 16; TEMP 35.8; O2SAT 100
--- NOTE | 2021-12-30 15:48 | HO.PSYCHPN ---
Subjective Subjective Date of Service: 12/30/21 Reason For Visit: psychosis Interim History: found sleeping in his bed late morning, rousable to loud voice. calm, cooperative. shows MD his lower extremities, which appear ever less edematous. some blotchy erythema visible. discuss trying zyprexa in place of another of his anti-psychotics. pt appears ambivalent. continues more disorganized and hyperverbal than when on lithium. discussed exiting quarantine . per staff, perseverative re cleanliness. cleaned and scrubbed floor of his room overnight. hyperverbal, positive interactions. no sleep overnight. Mental Status Exam Mental Status Exam Narrative: prone on his bed asleep, rousable to loud voice. behavior is cooperative and calm; dressed in hospital carlin, adequate hygiene; affect normo-intense, non-labile; Speech incr rate, nml loudness. nml prosody, decr latency; thought process largely disorganized; no SI/HI/AVH expressed. Patients insight and judgment are impaired. Diagnostics Vital Signs (24Hr): Vital Signs - 24 hr 12/29/21 19:30 12/30/21 08:49 Temperature 97 F 96.5 F L Pulse Rate 70 76 Respiratory Rate 18 16 Blood Pressure 135/86 130/78 Pulse Oximetry 99 100 Oxygen Delivery Method Room Air Room Air BMI result Body Mass Index 30.3 Labs Results: 12/29/21 08:55 12/29/21 08:55 Labs: Laboratory Results - last 48 hr 12/29/21 12/29/21 08:55 08:55 WBC 6.0 RBC 4.39 L Hgb 13.2 L Hct 41.0 L MCV 93.4 MCH 30.1 MCHC 32.2 RDW 12.6 Plt Count 246 MPV 9.9 Immature Gran % (Auto) 0.5 H Neut % (Auto) 61.0 Lymph % (Auto) 26.7 Barnes % (Auto) 8.9 Eos % (Auto) 2.6 Baso % (Auto) 0.3 Lymph # (Auto) 1.6 Barnes # (Auto) 0.5 Eos # (Auto) 0.2 Baso # (Auto) 0.0 Abs Immat Gran (auto) 0.03 Absolute Neuts (auto) 3.7 Absolute Nucleated RBC 0.000 Nucleated RBC % (auto) 0.0 Sodium 141 Potassium 4.6 Chloride 105 Carbon Dioxide 26 Anion Gap 15 BUN 16 Creatinine 0.87 Estim Creat Clear Calc 134.5 Estimated GFR > 60 Random Glucose 92 D Calcium 8.9 Total Bilirubin 0.3 Direct Bilirubin 0.2 AST 20 ALT 30 Alkaline Phosphatase 73 Total Protein 6.3 L Albumin 4.0 Carbamazepine 8.0 Imaging Radiology Impressions: ITS Impressions Venous Duplex 12/19/21 20:16 IMPRESSION: No DVT demonstrated in the bilateral lower extremity. Medications Medications Current Medications Acetaminophen (Acetaminophen 325 Mg Tablet) 650 mg PO Q6H PRN PRN Reason: Headache/Pain Mild Scale (1-3) Last Admin: 12/26/21 14:36 Dose: 650 mg Al Hydroxide/Mg Hydroxide (Magnesium Hydrox/Alum Hydrox 30 Ml Oral.Susp) 30 ml PO Q6H PRN PRN Reason: Heartburn/Nausea Last Admin: 12/10/21 19:22 Dose: 30 ml Albuterol Sulfate (Albuterol Sulfate 90 Mcg 8 Gm Inhaler) 2 puff INHALE Q4H PRN PRN Reason: shortness of breath or wheezing Last Admin: 12/26/21 21:31 Dose: 2 puff Artificial Tears (Artificial Tears 15 Ml Drops) 2 drop EYE-BOTH Q4H PRN PRN Reason: Dry Eyes Last Admin: 12/27/21 21:47 Dose: 2 drop Ascorbic Acid (Ascorbic Acid 250 Mg Tablet) 250 mg PO DAILY [facility] Last Admin: 12/30/21 08:27 Dose: 250 mg Benzocaine (Throat Lozenge, Medicated Lozenge) 1 lozenge MUCOUS MEM Q1H PRN PRN Reason: Sore Throat Last Admin: 12/27/21 06:54 Dose: 1 lozenge Bisacodyl (Bisacodyl 10 Mg Supp.Rect) 10 mg NC BEDTIME PRN PRN Reason: Constipation Last Admin: 12/06/21 21:14 Dose: 10 mg Carbamazepine (Carbamazepine Er 200 Mg Tab.Er.12h) 800 mg PO BEDTIME [facility] Last Admin: 12/29/21 20:59 Dose: 800 mg Carbamazepine (Carbamazepine Er 200 Mg Tab.Er.12h) 800 mg PO DAILY [facility] Last Admin: 12/30/21 08:28 Dose: 800 mg Famotidine (Famotidine 20 Mg Tablet) 20 mg PO BID [facility] Last Admin: 12/30/21 08:28 Dose: 20 mg Fluticasone/Vilanterol (Fluticasone/Vilanterol 100/25 Blst.W.Dev) 1 puff INHALE DAILY [facility] Last Admin: 12/30/21 10:05 Dose: Not Given Guaifenesin (Guaifenesin La 600 Mg Tab.Er.12h) 600 mg PO BID PRN PRN Reason: thick secretions Last Admin: 12/27/21 22:33 Dose: 600 mg Hydroxyzine HCl (Hydroxyzine Hcl 50 Mg Tablet) 50 mg PO Q6H PRN PRN Reason: Anxiety Last Admin: 12/30/21 14:22 Dose: 50 mg Ibuprofen (Ibuprofen 600 Mg Tablet) 600 mg PO Q6H PRN PRN Reason: aches and pains Last Admin: 12/30/21 14:22 Dose: 600 mg Lactic Acid (Ammonium Lactate 12 % Lotion 226 Gm Bottle) 1 appl TOPICAL BID [facility]Y; Protocol Last Admin: 12/30/21 08:51 Dose: Not Given Lidocaine/Diphenhydr/Alum/Mg/Simeth (Mag&Al/Sim/Diphenhyd/Lidocaine 10 Ml Oral.Susp) 10 ml PO Q4H PRN; Protocol PRN Reason: oral mucous membrane ulcer jeremiah Last Admin: 12/20/21 02:20 Dose: 10 ml Magnesium Hydroxide (Milk Of Magnesia 30 Ml Oral.Susp) 30 ml PO DAILY PRN PRN Reason: Constipation Last Admin: 12/30/21 00:14 Dose: 30 ml Nicotine Polacrilex (Nicotine Polacrilex 2 Mg Gum) 4 mg BUCCAL Q1H PRN PRN Reason: Nicotine Cravings Last Admin: 12/30/21 14:22 Dose: 4 mg Olanzapine (Olanzapine 5 Mg Tablet) 5 mg PO Q4H PRN PRN Reason: ginny/psychosis Last Admin: 12/29/21 20:59 Dose: 5 mg Olanzapine (Olanzapine Odt 10 Mg Tab.Rapdis) 30 mg TRANSLINGU BEDTIME [facility] Perphenazine (Perphenazine 8 Mg Tablet) 16 mg PO TID [facility] Last Admin: 12/30/21 14:22 Dose: 16 mg Prazosin HCl (Prazosin Hcl 1 Mg Capsule) 2 mg PO BEDTIME [facility]; Protocol Last Admin: 12/29/21 20:58 Dose: 2 mg Psyllium Hydrophilic Mucilloid (Psyllium Seed 3.4 Gm Powd.Pack) 3.4 gm PO BID [facility] Last Admin: 12/30/21 08:29 Dose: 3.4 gm Quetiapine Fumarate (Quetiapine Fumarate 200 Mg Tablet) 200 mg PO BID@0900,1400 [facility] Last Admin: 12/30/21 14:22 Dose: 200 mg Quetiapine Fumarate (Quetiapine Fumarate 400 Mg Tablet) 400 mg PO BEDTIME [facility] Last Admin: 12/29/21 20:59 Dose: 400 mg Simethicone (Simethicone 80 Mg Tab.Chew) 80 mg PO QIDWMHS PRN PRN Reason: flatulence Last Admin: 12/20/21 22:49 Dose: 80 mg Tamsulosin HCl (Tamsulosin Hcl 0.4 Mg Capsule) 0.4 mg PO BEDTIME [facility] Last Admin: 12/29/21 20:59 Dose: 0.4 mg Trazodone HCl (Trazodone Hcl 50 Mg Tablet) 150 mg PO BEDTIME [facility] Last Admin: 12/29/21 20:58 Dose: 150 mg Trazodone HCl (Trazodone Hcl 50 Mg Tablet) 50 mg PO BEDTIME PRN PRN Reason: Insomnia Last Admin: 12/29/21 20:59 Dose: 50 mg Vitamin E (Vitamin E (Dl,Tocopheryl Acet) 180 Mg (400 Unit) Capsule) 180 mg PO BID [facility] Last Admin: 12/30/21 08:27 Dose: 180 mg Allergies Allergies Allergy/AdvReac Type Severity Reaction Status Date / Time divalproex sodium Allergy Severe PANCREATITI Verified 11/24/21 14:34 [From DEPAKOTE] S haloperidol [From Haldol] Allergy Intermediate DYSTONIC Verified 11/24/21 14:34 REACTION Assessment & Plan Assessment & Plan (1) Schizoaffective disorder: Status: Acute Code(s): F25.9 - Schizoaffective disorder, unspecified (2) Cellulitis: Status: Acute Code(s): L03.90 - Cellulitis, unspecified Assessment and Plan: 51yo M with COPD, HLD, obesity, BPH, ex-smoker, bipolar-type schizoaffective disorder admitted to [facility]. Developed infection of R foot yesterday as well as symptomatic Covid-19 infection without hypoxia. # nonpurulent cellulitis - doxycycline x7d. no need for blood culture. monitor clinically for improvement. (3) COVID-19: Status: Acute Code(s): U07.1 - COVID-19 Assessment and Plan: 51yo M with COPD, HLD, obesity, BPH, ex-smoker, bipolar-type schizoaffective disorder admitted to [facility]. Developed infection of R foot yesterday as well as symptomatic Covid-19 infection without hypoxia. # Covid-19 infection - not hypoxic; no steroids indicated. Paxlovid contraindicated by use of carbamezapine. can give 3 days of IV remdesivir as alternative. Monitor SaO2 qshift. beginning 12/20/21, isolation x5d then mask-wearing x5d Plan 12/03: continue home meds for now. CV rejected as pt unable to appreciate the circumstances of his admission. will need commitment and benedicto's order. T/C restarting clozaril and lithium, on which pt did well for many years, reportedly. tegretol increased from 400 BID to 600 BID at admission. 12/04: klonopin 0.5/0.5/1 reinstated 12/04 (outpt provider had started it 11/25 at 1 mg TID). magic mouthwash started for oral ulcers. 12/05: slept well last night, still pressured and disorganized.? continue current mgmt. 12/08: 12b up, applied for commitment and meds.? making sexually inappropriate comments/suggestions to staff, threatening violence and toward male peer. 12/09: same presentation as yesterday.? started lithium 450 mg BID today. 12/10: no change in presentation, compliant with lithium. 12/11: DC prazosin to see if B/L pedal edema decreases.? DC pravachol as pt is refusing it.? order lac-hydrin for plantar fissure.? otherwise continue previous mgmt.? perhaps slight decrease in pressure and disorganization. 12/12: pedal edema no worse, perhaps better.? no GI side effects from lithium.? fissure looks improved with cream.? check lithium, tegretol, associated labs on wednesday (ordered).? titrate lithium as indicated. 12/13 pt manic, disorganized, intrusive, blaming, threatening (told remote mortgage underwriter someone would come over and break his neck) -consider switching to Zyprexa from seroquel 12/14 her is manic, intrusive irritable, grandiose Mccall level subtherapeutic; however patient is very anxious about this medication causing side effects and at this time remote mortgage underwriter thinks it might be better to leave it is current dose since patient continues to take it and trying to increase it may very well cause him to refuse it altogether; he is also on Tegretol.? Perhaps switching antipsychotics to Zyprexa is warranted.? Patient says he has never taken Zyprexa before.? Patient typically knows his medication history however usually when someone gets on clozapine it is because most other medications have not worked.? Mccall has just reached at steady state so will hold off making medication adjustments right now to see if there can be any further benefit observed from currently lithium dose and medication regimen. 12/15 no change; clonazepam at started off and was not restarted.? Patient did take p.o. laxatives and had a bowel movement says he feels better. 12/16:? increase tegretol from 600 BID to 600/800 tonight, as level around 7.? lithium sub-therapeutic but pt resistant to increase, will see how much better he can get on higher tegretol dosing.? T/C switching anti-psychotic to zyprexa, as pt has done well on clozaril in the past.? TEDs obtained for pedal edema. 12/17: no change in mgmt.? presentation not substantially changed.? some agitation today. 12/18: presentation essentially unchanged.? no agitation today, sleeping late morning. 12/19: Assessed for pedal edema, spoke with hospitalist, BNP, BMP wnl, venous doppler wnl. Per hospitalist, continue with TEDs, may consider low dose lasix. 12/20: stable presentation.? continue current mgmt.? check tegretol level about a week after dose increase.? trending more calm than earlier in his stay but remains very psychotic.? T/C trial of olanzapine. 12/21:? taper and DC lithium and it appears to be having unsustainable physical side effects (B/L LE edema, now possibly with cellulitis).? also tested COVID POS today, satting mid 902 on RA.? hospitalist consult placed for eval of COVID severity and R/O cellulitis.? T/C olanzapine trial once lithium has been DCed. 12/22: stable, appears medically better than yesterday. continue lithium taper, to 150 BID tonight and tomorrow morning. start ibuprofen for better pain control with COVID. continue antibiotic and antiviral. 12/24 continue current tx. O2 sat >93, no s/s of respiratory distress. afebrile. 12/25: course of remdesivir complete, doxy ongoing. rash has not spread, likely related to edema and dependent limbs. less purpuric and more pinpoint red with bruising. edema improved. c/o productive cough, expectorant Rx'ed. otherwise continue current mgmt. per CDC guidelines, persons with moderate COVID (which includes having oxygen saturation less than 94%) should isolate for 10 days. 12/26: stable, in quarantine day #6 of . continue current mgmt. check labs on wednesday morning. 12/27: Continue current regimen and plans. Continue quarantine. 12/28: Continue current plans and regimen 12/29: increasingly disorganized and hyperverbal since DC of lithium. B/L pedal edema dose seem to be improving. day #9 of quarantine. tegretol level 8, other labs unremarkable aside from anemia. 12/30: obsessively scrubbing floor overnight, up all NOC. sleeping during day. more disorganized, hyperverbal. DC seroquel and start olanzapine 30 mg QHS. seroquel 200 mg PRNs for insomnia. I spent __25____ minutes with the patient and/or on the patient floor today, greater than?50% of which was spent counseling/coordinating care. Reason for contiued inpatient stay Substantial Risk for: inability to function and rapid decompensation
[2021-12-30] MEDS: Acetaminophen 325 MG TABLET 650 MG PO (18:04)
[2021-12-30] MEDS: OLANZapine ODT 10 MG TAB.RAPDIS 30 MG TRANSLINGU (21:52)
[2021-12-30] MEDS: Prazosin HCL 1 MG CAPSULE 2 MG PO (21:53)
[2021-12-30] MEDS: traZODone HCL 50 MG TABLET 150 MG PO (21:53)
[2021-12-30] MEDS: Tamsulosin HCL 0.4 MG CAPSULE PO (21:53)
[2021-12-30 22:00] VITALS: BP 143/89; PULSE 75; RESP 18; O2SAT 99
[2021-12-30] MEDS: Artificial Tears 15 ML DROPS 2 DROP EYE-BOTH (22:30)
[2021-12-30] MEDS: Ammonium Lactate 12 % Lotion 226 GM BOTTLE 1 APPL TOPICAL (23:59)
[2021-12-31] MEDS: Magnesium Hydrox/Alum Hydrox 30 ML ORAL.SUSP PO (00:09)
[2021-12-31] MEDS: Nicotine Polacrilex 2 MG GUM 4 MG BUCCAL ×9 (02:26→23:38)
[2021-12-31] MEDS: Ibuprofen 600 MG TABLET PO (04:58)
[2021-12-31] MEDS: Vitamin E (Dl,Tocopheryl Acet) 180 MG (400 UNIT) CAPSULE PO ×2 (10:34→23:30)
[2021-12-31] MEDS: Fluticasone/Vilanterol 100/25 BLST.W.DEV 1 PUFF INHALE (10:34)
[2021-12-31] MEDS: clonazePAM 1 MG TABLET PO ×3 (10:34→22:29)
[2021-12-31] MEDS: Famotidine 20 MG TABLET PO ×2 (10:35→22:30)
[2021-12-31] MEDS: carBAMazepine ER 200 MG TAB.ER.12H 800 MG PO ×2 (10:35→22:29)
[2021-12-31] MEDS: Perphenazine 8 MG TABLET 16 MG PO ×3 (10:35→22:30)
[2021-12-31] MEDS: Ascorbic Acid 250 MG TABLET PO (10:35)
[2021-12-31 11:47] VITALS: BP 138/89; PULSE 69; RESP 14; TEMP 35.9; O2SAT 100
[2021-12-31] MEDS: Ammonium Lactate 12 % Lotion 226 GM BOTTLE 1 APPL TOPICAL ×2 (11:58→23:38)
--- NOTE | 2021-12-31 14:40 | P.PNPSI_ITS ---
Subjective Subjective Date of Service: 12/31/21 Reason For Visit: psychosis Interim History: allowed out of quarantine today. disorganized, bizarre, non-sensical at times. at other times able to reply to questions with cogent responses. states his pedal edema is just not getting that much better; interested in a one-time dose of lasix tomorrow, which will be accommodated. states the medication last night knocked me right out. no other requests or complaints. per staff, compliant, pleasant. non-sensical, bizarre. eating/sleeping. med-compliant. Mental Status Exam Mental Status Exam Narrative: up and about the unit, dressed in [facility]. behavior is cooperative with mild agitation of lightly punching/hitting grossman; adequate hygiene; affect normo-intense, non-labile; Speech incr rate, nml loudness. nml prosody, decr latency; thought process largely disorganized; no SI/HI/AVH expressed. Patients insight and judgment are impaired. Diagnostics Vital Signs (24Hr): Vital Signs - 24 hr 12/30/21 22:00 12/31/21 11:47 Temperature 96.6 F L Pulse Rate 75 69 Respiratory Rate 18 14 Blood Pressure 143/89 H 138/89 Pulse Oximetry 99 100 Oxygen Delivery Method Room Air Room Air BMI result Body Mass Index 30.3 Labs Results: 12/29/21 08:55 12/29/21 08:55 Imaging Radiology Impressions: ITS Impressions Venous Duplex 12/19/21 20:16 IMPRESSION: No DVT demonstrated in the bilateral lower extremity. Medications Medications Current Medications Acetaminophen (Acetaminophen 325 Mg Tablet) 650 mg PO Q6H PRN PRN Reason: Headache/Pain Mild Scale (1-3) Last Admin: 12/30/21 18:04 Dose: 650 mg Al Hydroxide/Mg Hydroxide (Magnesium Hydrox/Alum Hydrox 30 Ml Oral.Susp) 30 ml PO Q6H PRN PRN Reason: Heartburn/Nausea Last Admin: 12/31/21 00:09 Dose: 30 ml Albuterol Sulfate (Albuterol Sulfate 90 Mcg 8 Gm Inhaler) 2 puff INHALE Q4H PRN PRN Reason: shortness of breath or wheezing Last Admin: 12/26/21 21:31 Dose: 2 puff Artificial Tears (Artificial Tears 15 Ml Drops) 2 drop EYE-BOTH Q4H PRN PRN Reason: Dry Eyes Last Admin: 12/30/21 22:30 Dose: 2 drop Ascorbic Acid (Ascorbic Acid 250 Mg Tablet) 250 mg PO DAILY REPLACED BY [facility] Last Admin: 12/31/21 10:35 Dose: 250 mg Benzocaine (Throat Lozenge, Medicated Lozenge) 1 lozenge MUCOUS MEM Q1H PRN PRN Reason: Sore Throat Last Admin: 12/27/21 06:54 Dose: 1 lozenge Bisacodyl (Bisacodyl 10 Mg Supp.Rect) 10 mg [place] BEDTIME PRN PRN Reason: Constipation Last Admin: 12/06/21 21:14 Dose: 10 mg Carbamazepine (Carbamazepine Er 200 Mg Tab.Er.12h) 800 mg PO BEDTIME DAVY Last Admin: 12/30/21 21:54 Dose: 800 mg Carbamazepine (Carbamazepine Er 200 Mg Tab.Er.12h) 800 mg PO DAILY REPLACED BY [facility] Last Admin: 12/31/21 10:35 Dose: 800 mg Clonazepam (Clonazepam 1 Mg Tablet) 1 mg PO TID REPLACED BY [facility] Last Admin: 12/31/21 10:34 Dose: 1 mg Famotidine (Famotidine 20 Mg Tablet) 20 mg PO BID REPLACED BY [facility] Last Admin: 12/31/21 10:35 Dose: 20 mg Fluticasone/Vilanterol (Fluticasone/Vilanterol 100/25 Blst.W.Dev) 1 puff INHALE DAILY REPLACED BY [facility] Last Admin: 12/31/21 10:34 Dose: 1 puff Guaifenesin (Guaifenesin La 600 Mg Tab.Er.12h) 600 mg PO BID PRN PRN Reason: thick secretions Last Admin: 12/27/21 22:33 Dose: 600 mg Hydroxyzine HCl (Hydroxyzine Hcl 50 Mg Tablet) 50 mg PO Q6H PRN PRN Reason: Anxiety Last Admin: 12/30/21 22:30 Dose: 50 mg Ibuprofen (Ibuprofen 600 Mg Tablet) 600 mg PO Q6H PRN PRN Reason: aches and pains Last Admin: 12/31/21 04:58 Dose: 600 mg Lactic Acid (Ammonium Lactate 12 % Lotion 226 Gm Bottle) 1 appl TOPICAL BID DAVY; Protocol Last Admin: 12/31/21 11:58 Dose: 1 appl Lidocaine/Diphenhydr/Alum/Mg/Simeth (Mag&Al/Sim/Diphenhyd/Lidocaine 10 Ml Oral.Susp) 10 ml PO Q4H PRN; Protocol PRN Reason: oral mucous membrane ulcer jermeiah Last Admin: 12/20/21 02:20 Dose: 10 ml Magnesium Hydroxide (Milk Of Magnesia 30 Ml Oral.Susp) 30 ml PO DAILY PRN PRN Reason: Constipation Last Admin: 12/30/21 00:14 Dose: 30 ml Nicotine Polacrilex (Nicotine Polacrilex 2 Mg Gum) 4 mg BUCCAL Q1H PRN PRN Reason: Nicotine Cravings Last Admin: 12/31/21 10:35 Dose: 4 mg Olanzapine (Olanzapine 5 Mg Tablet) 5 mg PO Q4H PRN PRN Reason: ginny/psychosis Last Admin: 12/29/21 20:59 Dose: 5 mg Olanzapine (Olanzapine Odt 10 Mg Tab.Rapdis) 30 mg TRANSLINGU BEDTIME DAVY Last Admin: 12/30/21 21:52 Dose: 30 mg Perphenazine (Perphenazine 8 Mg Tablet) 16 mg PO TID DAVY Last Admin: 12/31/21 10:35 Dose: 16 mg Prazosin HCl (Prazosin Hcl 1 Mg Capsule) 2 mg PO BEDTIME DAVY; Protocol Last Admin: 12/30/21 21:53 Dose: 2 mg Psyllium Hydrophilic Mucilloid (Psyllium Seed 3.4 Gm Powd.Pack) 3.4 gm PO BID DAVY Last Admin: 12/31/21 10:34 Dose: 3.4 gm Quetiapine Fumarate (Quetiapine Fumarate 200 Mg Tablet) 200 mg PO BID@0900,1400 DAVY Last Admin: 12/30/21 14:22 Dose: 200 mg Quetiapine Fumarate (Quetiapine Fumarate 400 Mg Tablet) 400 mg PO BEDTIME DAVY Last Admin: 12/29/21 20:59 Dose: 400 mg Quetiapine Fumarate (Quetiapine Fumarate 200 Mg Tablet) 200 mg PO Q2H PRN PRN Reason: insomnia Last Admin: 12/30/21 22:30 Dose: 200 mg Simethicone (Simethicone 80 Mg Tab.Chew) 80 mg PO QIDWMHS PRN PRN Reason: flatulence Last Admin: 12/20/21 22:49 Dose: 80 mg Tamsulosin HCl (Tamsulosin Hcl 0.4 Mg Capsule) 0.4 mg PO BEDTIME DAVY Last Admin: 12/30/21 21:53 Dose: 0.4 mg Trazodone HCl (Trazodone Hcl 50 Mg Tablet) 150 mg PO BEDTIME DAVY Last Admin: 12/30/21 21:53 Dose: 150 mg Trazodone HCl (Trazodone Hcl 50 Mg Tablet) 50 mg PO BEDTIME PRN PRN Reason: Insomnia Last Admin: 12/29/21 20:59 Dose: 50 mg Vitamin E (Vitamin E (Dl,Tocopheryl Acet) 180 Mg (400 Unit) Capsule) 180 mg PO BID DAVY Last Admin: 12/31/21 10:34 Dose: 180 mg Allergies Allergies Allergy/AdvReac Type Severity Reaction Status Date / Time divalproex sodium Allergy Severe PANCREATITI Verified 11/24/21 14:34 [From DEPAKOTE] S haloperidol [From Haldol] Allergy Intermediate DYSTONIC Verified 11/24/21 14:34 REACTION Assessment & Plan Assessment & Plan (1) Schizoaffective disorder: Status: Acute Code(s): F25.9 - Schizoaffective disorder, unspecified (2) Cellulitis: Status: Acute Code(s): L03.90 - Cellulitis, unspecified Assessment and Plan: 51yo M with COPD, HLD, obesity, BPH, ex-smoker, bipolar-type schizoaffective disorder admitted to [facility]. Developed infection of R foot yesterday as well as symptomatic Covid-19 infection without hypoxia. # nonpurulent cellulitis - doxycycline x7d. no need for blood culture. monitor clinically for improvement. (3) COVID-19: Status: Acute Code(s): U07.1 - COVID-19 Assessment and Plan: 51yo M with COPD, HLD, obesity, BPH, ex-smoker, bipolar-type schizoaffective disorder admitted to [facility]. Developed infection of R foot yesterday as well as symptomatic Covid-19 infection without hypoxia. # Covid-19 infection - not hypoxic; no steroids indicated. Paxlovid contraindicated by use of carbamezapine. can give 3 days of IV remdesivir as alternative. Monitor SaO2 qshift. beginning 12/20/21, isolation x5d then mask-wearing x5d Plan 12/03: continue home meds for now. CV rejected as pt unable to appreciate the circumstances of his admission. will need commitment and benedicto's order. T/C restarting clozaril and lithium, on which pt did well for many years, reportedly. tegretol increased from 400 BID to 600 BID at admission. 12/04: klonopin 0.5/0.5/1 reinstated 12/04 (outpt provider had started it 11/25 at 1 mg TID). magic mouthwash started for oral ulcers. 12/05: slept well last night, still pressured and disorganized.? continue current mgmt. 12/08: 12b up, applied for commitment and meds.? making sexually inappropriate comments/suggestions to staff, threatening violence and toward male peer. 12/09: same presentation as yesterday.? started lithium 450 mg BID today. 12/10: no change in presentation, compliant with lithium. 12/11: DC prazosin to see if B/L pedal edema decreases.? DC pravachol as pt is refusing it.? order lac-hydrin for plantar fissure.? otherwise continue previous mgmt.? perhaps slight decrease in pressure and disorganization. 12/12: pedal edema no worse, perhaps better.? no GI side effects from lithium.? fissure looks improved with cream.? check lithium, tegretol, associated labs on wednesday (ordered).? titrate lithium as indicated. 12/13 pt manic, disorganized, intrusive, blaming, threatening (told magazine writer someon e would come over and break his neck) -consider switching to Zyprexa from seroquel 12/14 her is manic, intrusive irritable, grandiose Grenelefe level subtherapeutic; however patient is very anxious about this medication causing side effects and at this time magazine writer thinks it might be better to leave it is current dose since patient continues to take it and trying to increase it may very well cause him to refuse it altogether; he is also on Tegretol.? Perhaps switching antipsychotics to Zyprexa is warranted.? Patient says he has never taken Zyprexa before.? Patient typically knows his medication history however usually when someone gets on clozapine it is because most other medications have not worked.? Grenelefe has just reached at steady state so will hold off making medication adjustments right now to see if there can be any further benefit observed from currently lithium dose and medication regimen. 12/15 no change; clonazepam at started off and was not restarted.? Patient did take p.o. laxatives and had a bowel movement says he feels better. 12/16:? increase tegretol from 600 BID to 600/800 tonight, as level around 7.? lithium sub-therapeutic but pt resistant to increase, will see how much better he can get on higher tegretol dosing.? T/C switching anti-psychotic to zyprexa, as pt has done well on clozaril in the past.? TEDs obtained for pedal edema. 12/17: no change in mgmt.? presentation not substantially changed.? some agitation today. 12/18: presentation essentially unchanged.? no agitation today, sleeping late morning. 12/19: Assessed for pedal edema, spoke with hospitalist, BNP, BMP wnl, venous doppler wnl. Per hospitalist, continue with TEDs, may consider low dose lasix. 12/20: stable presentation.? continue current mgmt.? check tegretol level about a week after dose increase.? trending more calm than earlier in his stay but remains very psychotic.? T/C trial of olanzapine. 12/21:? taper and DC lithium and it appears to be having unsustainable physical side effects (B/L LE edema, now possibly with cellulitis).? also tested COVID POS today, satting mid 902 on RA.? hospitalist consult placed for eval of COVID severity and R/O cellulitis.? T/C olanzapine trial once lithium has been DCed. 12/22: stable, appears medically better than yesterday. continue lithium taper, to 150 BID tonight and tomorrow morning. start ibuprofen for better pain control with COVID. continue antibiotic and antiviral. 12/24 continue current tx. O2 sat >93, no s/s of respiratory distress. afebrile. 12/25: course of remdesivir complete, doxy ongoing. rash has not spread, likely related to edema and dependent limbs. less purpuric and more pinpoint red with bruising. edema improved. c/o productive cough, expectorant Rx'ed. otherwise continue current mgmt. per CDC guidelines, persons with moderate COVID (which includes having oxygen saturation less than 94%) should isolate for 10 days. 12/26: stable, in quarantine day #6 of 10. continue current mgmt. check labs o n wednesday morning. 12/27: Continue current regimen and plans. Continue quarantine. 12/28: Continue current plans and regimen 12/29: increasingly disorganized and hyperverbal since DC of lithium. B/L pedal edema dose seem to be improving. day #9 of quarantine. tegretol level 8, other labs unremarkable aside from anemia. 12/30: obsessively scrubbing floor overnight, up all NOC. sleeping during day. more disorganized, hyperverbal. DC seroquel and start olanzapine 30 mg QHS. seroquel 200 mg PRNs for insomnia. 12/31: c/o persisting edema. perhaps lithium is not the largest offender; the only other change has been increasing tegretol dosing (edema identified as a side effect only in post-marketing, [facility] las[facility] 20 mg one time tomorrow morning. otherwise continue current mgmt. slept well last night with zyprexa at HS. I spent ___20___ minutes with the patient and/or on the patient floor today, greater than?50% of which was spent counseling/coordinating care. Reason for contiued inpatient stay Substantial Risk for: inability to function and rapid decompensation
[2021-12-31] MEDS: OLANZapine ODT 10 MG TAB.RAPDIS 30 MG TRANSLINGU (22:29)
[2021-12-31] MEDS: traZODone HCL 50 MG TABLET 150 MG PO (22:30)
[2021-12-31] MEDS: Tamsulosin HCL 0.4 MG CAPSULE PO (22:30)
[2021-12-31] MEDS: Prazosin HCL 1 MG CAPSULE 2 MG PO (22:30)
[2021-12-31 22:34] VITALS: BP 146/81; PULSE 80; TEMP 36.7; O2SAT 100
[2022-01-01] MEDS: Nicotine Polacrilex 2 MG GUM 4 MG BUCCAL ×9 (01:16→22:54)
[2022-01-01] MEDS: Ammonium Lactate 12 % Lotion 226 GM BOTTLE 1 APPL TOPICAL (06:58)
[2022-01-01 07:00] VITALS: BMI 31.4
[2022-01-01 08:00] VITALS: BP 140/92; PULSE 84; RESP 18; TEMP 36.7; O2SAT 98
[2022-01-01] MEDS: Perphenazine 8 MG TABLET 16 MG PO ×3 (08:01→22:30)
[2022-01-01] MEDS: carBAMazepine ER 200 MG TAB.ER.12H 800 MG PO ×2 (08:01→22:29)
[2022-01-01] MEDS: Vitamin E (Dl,Tocopheryl Acet) 180 MG (400 UNIT) CAPSULE PO ×2 (08:02→22:30)
[2022-01-01] MEDS: clonazePAM 1 MG TABLET PO ×3 (08:02→22:29)
[2022-01-01] MEDS: Furosemide 20 MG TABLET PO (08:02)
[2022-01-01] MEDS: Ascorbic Acid 250 MG TABLET PO (08:03)
[2022-01-01] MEDS: Famotidine 20 MG TABLET PO ×2 (08:03→22:28)
[2022-01-01] MEDS: Ibuprofen 600 MG TABLET PO (08:07)
[2022-01-01] MEDS: hydrOXYzine HCL 50 MG TABLET PO (08:07)
[2022-01-01] MEDS: Milk of Magnesia 30 ML ORAL.SUSP PO (08:52)
--- NOTE | 2022-01-01 13:38 | P.PNPSI_ITS ---
Subjective Subjective Date of Service: 01/01/22 Reason For Visit: psychosis Interim History: seems less hyperverbal, more organized today. c/o abd pain 1-3/10 in the past 24H which he thinks may be related to straining his muscles while defecating yesterday. also c/o toe dyscoloration. encouraged to wear stockings while up and about but to take them off when in bed and to raise his legs above his heart level by placing them on pillows. c/o pedal edema, which appears to still be th e case below the ankle. agreeable to three days of lasix 40 mg after reporting that he did not urinate much after the 20 mg this morning. per staff, pleasant, calm, cooperative. tangential. denies AH. eating and sleeping well. IOPR, paranoia. c/o sore feet. slept [id number]. Mental Status Exam Mental Status Exam Narrative: up and about the unit, dressed in [facility]. behavior is cooperative with mild agitation of lightly punching/hitting grossman; adequate hygiene; affect normo-intense, non-labile; Speech incr rate, nmlo amount, nml loudness. nml prosody, decr latency; thought process more organized than in recent days. no SI/HI/AVH expressed. Patients insight and judgment are impaired. Diagnostics Vital Signs (24Hr): Vital Signs - 24 hr 12/31/21 22:34 01/01/22 08:00 Temperature 98.1 F 98.1 F Pulse Rate 80 84 Respiratory Rate 18 Blood Pressure 146/81 H 140/92 H Pulse Oximetry 100 98 Oxygen Delivery Method Room Air Room Air BMI result Body Mass Index 31.4 Labs Results: 12/29/21 08:55 12/29/21 08:55 Imaging Radiology Impressions: ITS Impressions Venous Duplex 12/19/21 20:16 IMPRESSION: No DVT demonstrated in the bilateral lower extremity. Medications Medications Current Medications Acetaminophen (Acetaminophen 325 Mg Tablet) 650 mg PO Q6H PRN PRN Reason: Headache/Pain Mild Scale (1-3) Last Admin: 12/30/21 18:04 Dose: 650 mg Al Hydroxide/Mg Hydroxide (Magnesium Hydrox/Alum Hydrox 30 Ml Oral.Susp) 30 ml PO Q6H PRN PRN Reason: Heartburn/Nausea Last Admin: 12/31/21 00:09 Dose: 30 ml Albuterol Sulfate (Albuterol Sulfate 90 Mcg 8 Gm Inhaler) 2 puff INHALE Q4H PRN PRN Reason: shortness of breath or wheezing Last Admin: 12/26/21 21:31 Dose: 2 puff Artificial Tears (Artificial Tears 15 Ml Drops) 2 drop EYE-BOTH Q4H PRN PRN Reason: Dry Eyes Last Admin: 12/30/21 22:30 Dose: 2 drop Ascorbic Acid (Ascorbic Acid 250 Mg Tablet) 250 mg PO DAILY [facility] Last Admin: 01/01/22 08:03 Dose: 250 mg Benzocaine (Throat Lozenge, Medicated Lozenge) 1 lozenge MUCOUS MEM Q1H PRN PRN Reason: Sore Throat Last Admin: 12/27/21 06:54 Dose: 1 lozenge Bisacodyl (Bisacodyl 10 Mg Supp.Rect) 10 mg [place] BEDTIME PRN PRN Reason: Constipation Last Admin: 12/06/21 21:14 Dose: 10 mg Carbamazepine (Carbamazepine Er 200 Mg Tab.Er.12h) 800 mg PO BEDTIME DAVY Last Admin: 12/31/21 22:29 Dose: 800 mg Carbamazepine (Carbamazepine Er 200 Mg Tab.Er.12h) 800 mg PO DAILY [facility] Last Admin: 01/01/22 08:01 Dose: 800 mg Clonazepam (Clonazepam 1 Mg Tablet) 1 mg PO TID [facility] Last Admin: 01/01/22 08:02 Dose: 1 mg Famotidine (Famotidine 20 Mg Tablet) 20 mg PO BID [facility] Last Admin: 01/01/22 08:03 Dose: 20 mg Fluticasone/Vilanterol (Fluticasone/Vilanterol 100/25 Blst.W.Dev) 1 puff INHALE DAILY [facility] Last Admin: 01/01/22 08:12 Dose: Not Given Furosemide (Furosemide 40 Mg Tablet) 40 mg PO DAILY [facility]; Protocol Stop: 01/04/22 09:01 Guaifenesin (Guaifenesin La 600 Mg Tab.Er.12h) 600 mg PO BID PRN PRN Reason: thick secretions Last Admin: 12/27/21 22:33 Dose: 600 mg Hydroxyzine HCl (Hydroxyzine Hcl 50 Mg Tablet) 50 mg PO Q6H PRN PRN Reason: Anxiety Last Admin: 01/01/22 08:07 Dose: 50 mg Ibuprofen (Ibuprofen 600 Mg Tablet) 600 mg PO Q6H PRN PRN Reason: aches and pains Last Admin: 01/01/22 08:07 Dose: 600 mg Lactic Acid (Ammonium Lactate 12 % Lotion 226 Gm Bottle) 1 appl TOPICAL BID DAVY; Protocol Last Admin: 01/01/22 06:58 Dose: 1 appl Lidocaine/Diphenhydr/Alum/Mg/Simeth (Mag&Al/Sim/Diphenhyd/Lidocaine 10 Ml Oral.Susp) 10 ml PO Q4H PRN; Protocol PRN Reason: oral mucous membrane ulcer jeremiah Last Admin: 12/20/21 02:20 Dose: 10 ml Magnesium Hydroxide (Milk Of Magnesia 30 Ml Oral.Susp) 30 ml PO DAILY PRN PRN Reason: Constipation Last Admin: 01/01/22 08:52 Dose: 30 ml Nicotine Polacrilex (Nicotine Polacrilex 2 Mg Gum) 4 mg BUCCAL Q1H PRN PRN Reason: Nicotine Cravings Last Admin: 01/01/22 11:59 Dose: 4 mg Olanzapine (Olanzapine 5 Mg Tablet) 5 mg PO Q4H PRN PRN Reason: ginny/psychosis Last Admin: 12/29/21 20:59 Dose: 5 mg Olanzapine (Olanzapine Odt 10 Mg Tab.Rapdis) 30 mg TRANSLINGU BEDTIME DAVY Last Admin: 12/31/21 22:29 Dose: 30 mg Perphenazine (Perphenazine 8 Mg Tablet) 16 mg PO TID DAVY Last Admin: 01/01/22 08:01 Dose: 16 mg Prazosin HCl (Prazosin Hcl 1 Mg Capsule) 2 mg PO BEDTIME DAVY; Protocol Last Admin: 12/31/21 22:30 Dose: 2 mg Psyllium Hydrophilic Mucilloid (Psyllium Seed 3.4 Gm Powd.Pack) 3.4 gm PO BID DAVY Last Admin: 01/01/22 08:12 Dose: Not Given Quetiapine Fumarate (Quetiapine Fumarate 200 Mg Tablet) 200 mg PO BID@0900,1400 DAVY Last Admin: 12/30/21 14:22 Dose: 200 mg Quetiapine Fumarate (Quetiapine Fumarate 400 Mg Tablet) 400 mg PO BEDTIME DAVY Last Admin: 12/29/21 20:59 Dose: 400 mg Quetiapine Fumarate (Quetiapine Fumarate 200 Mg Tablet) 200 mg PO Q2H PRN PRN Reason: insomnia Last Admin: 12/30/21 22:30 Dose: 200 mg Simethicone (Simethicone 80 Mg Tab.Chew) 80 mg PO QIDWMHS PRN PRN Reason: flatulence Last Admin: 12/20/21 22:49 Dose: 80 mg Tamsulosin HCl (Tamsulosin Hcl 0.4 Mg Capsule) 0.4 mg PO BEDTIME DAVY Last Admin: 12/31/21 22:30 Dose: 0.4 mg Trazodone HCl (Trazodone Hcl 50 Mg Tablet) 150 mg PO BEDTIME DAVY Last Admin: 12/31/21 22:30 Dose: 150 mg Trazodone HCl (Trazodone Hcl 50 Mg Tablet) 50 mg PO BEDTIME PRN PRN Reason: Insomnia Last Admin: 12/29/21 20:59 Dose: 50 mg Vitamin E (Vitamin E (Dl,Tocopheryl Acet) 180 Mg (400 Unit) Capsule) 180 mg PO BID DAVY Last Admin: 01/01/22 08:02 Dose: 180 mg Allergies Allergies Allergy/AdvReac Type Severity Reaction Status Date / Time divalproex sodium Allergy Severe PANCREATITI Verified 11/24/21 14:34 [From DEPAKOTE] S haloperidol [From Haldol] Allergy Intermediate DYSTONIC Verified 11/24/21 14:34 REACTION Assessment & Plan Assessment & Plan (1) Schizoaffective disorder: Status: Acute Code(s): F25.9 - Schizoaffective disorder, unspecified (2) Cellulitis: Status: Acute Code(s): L03.90 - Cellulitis, unspecified Assessment and Plan: 51yo M with COPD, HLD, obesity, BPH, ex-smoker, bipolar-type schizoaffective disorder admitted to [facility]. Developed infection of R foot yesterday as well as symptomatic Covid-19 infection without hypoxia. # nonpurulent cellulitis - doxycycline x7d. no need for blood culture. monitor clinically for improvement. (3) COVID-19: Status: Acute Code(s): U07.1 - COVID-19 Assessment and Plan: 51yo M with COPD, HLD, obesity, BPH, ex-smoker, bipolar-type schizoaffective disorder admitted to [facility]. Developed infection of R foot yesterday as well as symptomatic Covid-19 infection without hypoxia. # Covid-19 infection - not hypoxic; no steroids indicated. Paxlovid contraindicated by use of carbamezapine. can give 3 days of IV remdesivir as alternative. Monitor SaO2 qshift. beginning 12/20/21, isolation x5d then mask-wearing x5d Plan 12/03: continue home meds for now. CV rejected as pt unable to appreciate the circumstances of his admission. will need commitment and benedicto's order. T/C restarting clozaril and lithium, on which pt did well for many years, reportedly. tegretol increased from 400 BID to 600 BID at admission. 12/04: klonopin 0.5/0.5/1 reinstated 12/04 (outpt provider had started it 11/25 at 1 mg TID). magic mouthwash started for oral ulcers. 12/05: slept well last night, still pressured and disorganized.? continue current mgmt. 12/08: 12b up, applied for commitment and meds.? making sexually inappropriate comments/suggestions to staff, threatening violence and toward male peer. 12/09: same presentation as yesterday.? started lithium 450 mg BID today. 12/10: no change in presentation, compliant with lithium. 12/11: DC prazosin to see if B/L pedal edema decreases.? DC pravachol as pt is refusing it.? order lac-hydrin for plantar fissure.? otherwise continue previous mgmt.? perhaps slight decrease in pressure and disorganization. 12/12: pedal edema no worse, perhaps better.? no GI side effects from lithium.? fissure looks improved with cream.? check lithium, tegretol, associated labs on wednesday (ordered).? titrate lithium as indicated. 12/13 pt manic, disorganized, intrusive, blaming, threatening (told [facility] underwriter someone would come over and break his neck) -consider switching to Zyprexa from seroquel 12/14 her is manic, intrusive irritable, grandiose [place] level subtherapeutic; however patient is very anxious about this medication causing side effects and at this time va underwriter thinks it might be better to leave it is current dose since patient continues to take it and trying to increase it may very well cause him to refuse it altogether; he is also on Tegretol.? Perhaps switching antipsychotics to Zyprexa is warranted.? Patient says he has never taken Zyprexa before.? Patient typically knows his medication history however usually when someone gets on clozapine it is because most other medications have not worked.? [place] has just reached at steady state so will hold off making medication adjustments right now to see if there can be any further benefit observed from currently lithium dose and medication regimen. 12/15 no change; clonazepam at started off and was not restarted.? Patient did take p.o. laxatives and had a bowel movement says he feels better. 12/16:? increase tegretol from 600 BID to 600/800 tonight, as level around 7.? lithium sub-therapeutic but pt resistant to increase, will see how much better he can get on higher tegretol dosing.? T/C switching anti-psychotic to zyprexa, as pt has done well on clozaril in the past.? TEDs obtained for pedal edema. 12/17: no change in mgmt.? presentation not substantially changed.? some agitat ion today. 12/18: presentation essentially unchanged.? no agitation today, sleeping late morning. 12/19: Assessed for pedal edema, spoke with hospitalist, BNP, BMP wnl, venous doppler wnl. Per hospitalist, continue with TEDs, may consider low dose lasix. 12/20: stable presentation.? continue current mgmt.? check tegretol level about a week after dose increase.? trending more calm than earlier in his stay but remains very psychotic.? T/C trial of olanzapine. 12/21:? taper and DC lithium and it appears to be having unsustainable physical side effects (B/L LE edema, now possibly with cellulitis).? also tested COVID POS today, satting mid 902 on RA.? hospitalist consult placed for eval of COVID severity and R/O cellulitis.? T/C olanzapine trial once lithium has been DCed. 12/22: stable, appears medically better than yesterday. continue lithium taper, to 150 BID tonight and tomorrow morning. start ibuprofen for better pain control with COVID. continue antibiotic and antiviral. 12/24 continue current tx. O2 sat >93, no s/s of respiratory distress. afebrile. 12/25: course of remdesivir complete, doxy ongoing. rash has not spread, likely related to edema and dependent limbs. less purpuric and more pinpoint red with bruising. edema improved. c/o productive cough, expectorant Rx'ed. otherwise continue current mgmt. per CDC guidelines, persons with moderate COVID (which includes having oxygen saturation less than 94%) should isolate for 10 days. 12/26: stable, in quarantine day #6 of . continue current mgmt. check labs on wednesday morning. 12/27: Continue current regimen and plans. Continue quarantine. 12/28: Continue current plans and regimen 12/29: increasingly disorganized and hyperverbal since DC of lithium. B/L pedal edema dose seem to be improving. day #9 of quarantine. tegretol level 8, other labs unremarkable aside from anemia. 12/30: obsessively scrubbing floor overnight, up all NOC. sleeping during day. more disorganized, hyperverbal. DC seroquel and start olanzapine 30 mg QHS. seroquel 200 mg PRNs for insomnia. 12/31: c/o persisting edema. perhaps lithium is not the largest offender; the only other change has been increasing tegretol dosing (edema identified as a side effect only in post-marketing, [facility] lasix 20 mg one time tomorrow morning. otherwise continue current mgmt. slept well last night with zyprexa at HS. 01/01: slept 3 hours overnight. give lasix 40 mg daily x 3 days as 20 mg dose this morning was not effective. pedal edema remains below the ankle. continue current mgmt otherwise. I spent __20____ minutes with the patient and/or on the patient floor today, gre ater than?50% of which was spent counseling/coordinating care. Reason for contiued inpatient stay Substantial Risk for: inability to function and rapid decompensation
[2022-01-01 21:05] VITALS: BP 154/81; PULSE 81; RESP 16; TEMP 36.8; O2SAT 100
[2022-01-01] MEDS: Prazosin HCL 1 MG CAPSULE 2 MG PO (22:28)
[2022-01-01] MEDS: Tamsulosin HCL 0.4 MG CAPSULE PO (22:29)
[2022-01-01] MEDS: OLANZapine ODT 10 MG TAB.RAPDIS 30 MG TRANSLINGU (22:29)
[2022-01-01] MEDS: traZODone HCL 50 MG TABLET 150 MG PO (22:38)
[2022-01-02] MEDS: Nicotine Polacrilex 2 MG GUM 4 MG BUCCAL ×11 (00:42→23:04)
[2022-01-02 08:00] VITALS: BP 147/85; PULSE 84; TEMP 36.2; O2SAT 99
[2022-01-02] MEDS: carBAMazepine ER 200 MG TAB.ER.12H 800 MG PO ×2 (08:11→22:52)
[2022-01-02] MEDS: Fluticasone/Vilanterol 100/25 BLST.W.DEV 1 PUFF INHALE (08:11)
[2022-01-02] MEDS: Furosemide 40 MG TABLET PO (08:12)
[2022-01-02] MEDS: Perphenazine 8 MG TABLET 16 MG PO ×3 (08:12→22:53)
[2022-01-02] MEDS: Ascorbic Acid 250 MG TABLET PO (08:13)
[2022-01-02] MEDS: Vitamin E (Dl,Tocopheryl Acet) 180 MG (400 UNIT) CAPSULE PO ×2 (08:13→22:53)
[2022-01-02] MEDS: Famotidine 20 MG TABLET PO ×2 (08:13→22:55)
[2022-01-02] MEDS: clonazePAM 1 MG TABLET PO ×3 (08:18→22:57)
--- NOTE | 2022-01-02 14:42 | HO.PSYCHPN ---
Subjective Subjective Date of Service: 01/02/22 Reason For Visit: psychosis Interim History: displays some lability and tangentiality, but generally calm and able to have reality-based and productive interactions. reports feet remain swollen but he took the lasix 40 mg this morning and did urinate a lot afterward. agrees to continue the plan to diurese for the weekend and follow below the ankle edema B/L and to see how 30 mg zyprexa at HS dose for him. per staff, visible, pleasant. some kicking of the wall. denies SI/AVH/ rapid speech. up until 0340. Mental Status Exam Mental Status Exam Narrative: up and about the unit, dressed in [facility]. behavior is cooperative; adequate hygiene; affect normo-intense, min-labile; Speech incr rate, nml amount, nml loudness. nml prosody, decr latency; thought process continues more organized. no SI/HI/AVH expressed. Patients insight and judgment are impaired. Diagnostics Vital Signs (24Hr): Vital Signs - 24 hr 01/01/22 21:05 01/02/22 08:00 Temperature 98.2 F 97.2 F Pulse Rate 81 84 Respiratory Rate 16 Blood Pressure 154/81 H 147/85 H Pulse Oximetry 100 99 Oxygen Delivery Method Room Air Room Air BMI result Body Mass Index 31.4 Labs Results: 12/29/21 08:55 12/29/21 08:55 Imaging Radiology Impressions: ITS Impressions Venous Duplex 12/19/21 20:16 IMPRESSION: No DVT demonstrated in the bilateral lower extremity. Medications Medications Current Medications Acetaminophen (Acetaminophen 325 Mg Tablet) 650 mg PO Q6H PRN PRN Reason: Headache/Pain Mild Scale (1-3) Last Admin: 12/30/21 18:04 Dose: 650 mg Al Hydroxide/Mg Hydroxide (Magnesium Hydrox/Alum Hydrox 30 Ml Oral.Susp) 30 ml PO Q6H PRN PRN Reason: Heartburn/Nausea Last Admin: 12/31/21 00:09 Dose: 30 ml Albuterol Sulfate (Albuterol Sulfate 90 Mcg 8 Gm Inhaler) 2 puff INHALE Q4H PRN PRN Reason: shortness of breath or wheezing Last Admin: 12/26/21 21:31 Dose: 2 puff Artificial Tears (Artificial Tears 15 Ml Drops) 2 drop EYE-BOTH Q4H PRN PRN Reason: Dry Eyes Last Admin: 12/30/21 22:30 Dose: 2 drop Ascorbic Acid (Ascorbic Acid 250 Mg Tablet) 250 mg PO DAILY DAVY Last Admin: 01/02/22 08:13 Dose: 250 mg Benzocaine (Throat Lozenge, Medicated Lozenge) 1 lozenge MUCOUS MEM Q1H PRN PRN Reason: Sore Throat Last Admin: 12/27/21 06:54 Dose: 1 lozenge Bisacodyl (Bisacodyl 10 Mg Supp.Rect) 10 mg MN BEDTIME PRN PRN Reason: Constipation Last Admin: 12/06/21 21:14 Dose: 10 mg Carbamazepine (Carbamazepine Er 200 Mg Tab.Er.12h) 800 mg PO BEDTIME DAVY Last Admin: 01/01/22 22:29 Dose: 800 mg Carbamazepine (Carbamazepine Er 200 Mg Tab.Er.12h) 800 mg PO DAILY [facility] Last Admin: 01/02/22 08:11 Dose: 800 mg Clonazepam (Clonazepam 1 Mg Tablet) 1 mg PO TID [facility] Last Admin: 01/02/22 08:18 Dose: 1 mg Famotidine (Famotidine 20 Mg Tablet) 20 mg PO BID [facility] Last Admin: 01/02/22 08:13 Dose: 20 mg Fluticasone/Vilanterol (Fluticasone/Vilanterol 100/25 Blst.W.Dev) 1 puff INHALE DAILY [facility] Last Admin: 01/02/22 08:11 Dose: 1 puff Furosemide (Furosemide 40 Mg Tablet) 40 mg PO DAILY DAVY; Protocol Stop: 01/04/22 09:01 Last Admin: 01/02/22 08:12 Dose: 40 mg Guaifenesin (Guaifenesin La 600 Mg Tab.Er.12h) 600 mg PO BID PRN PRN Reason: thick secretions Last Admin: 12/27/21 22:33 Dose: 600 mg Hydroxyzine HCl (Hydroxyzine Hcl 50 Mg Tablet) 50 mg PO Q6H PRN PRN Reason: Anxiety Last Admin: 01/01/22 08:07 Dose: 50 mg Ibuprofen (Ibuprofen 600 Mg Tablet) 600 mg PO Q6H PRN PRN Reason: aches and pains Last Admin: 01/01/22 08:07 Dose: 600 mg Lactic Acid (Ammonium Lactate 12 % Lotion 226 Gm Bottle) 1 appl TOPICAL BID DAVY; Protocol Last Admin: 01/02/22 08:20 Dose: Not Given Lidocaine/Diphenhydr/Alum/Mg/Simeth (Mag&Al/Sim/Diphenhyd/Lidocaine 10 Ml Oral.Susp) 10 ml PO Q4H PRN; Protocol PRN Reason: oral mucous membrane ulcer jeremiah Last Admin: 12/20/21 02:20 Dose: 10 ml Magnesium Hydroxide (Milk Of Magnesia 30 Ml Oral.Susp) 30 ml PO DAILY PRN PRN Reason: Constipation Last Admin: 01/01/22 08:52 Dose: 30 ml Nicotine Polacrilex (Nicotine Polacrilex 2 Mg Gum) 4 mg BUCCAL Q1H PRN PRN Reason: Nicotine Cravings Last Admin: 01/02/22 13:19 Dose: 4 mg Olanzapine (Olanzapine 5 Mg Tablet) 5 mg PO Q4H PRN PRN Reason: ginny/psychosis Last Admin: 12/29/21 20:59 Dose: 5 mg Olanzapine (Olanzapine Odt 10 Mg Tab.Rapdis) 30 mg TRANSLINGU BEDTIME DAVY Last Admin: 01/01/22 22:29 Dose: 30 mg Perphenazine (Perphenazine 8 Mg Tablet) 16 mg PO TID DAVY Last Admin: 01/02/22 08:12 Dose: 16 mg Prazosin HCl (Prazosin Hcl 1 Mg Capsule) 2 mg PO BEDTIME DAVY; Protocol Last Admin: 01/01/22 22:28 Dose: 2 mg Psyllium Hydrophilic Mucilloid (Psyllium Seed 3.4 Gm Powd.Pack) 3.4 gm PO BID DAVY Last Admin: 01/02/22 08:21 Dose: Not Given Quetiapine Fumarate (Quetiapine Fumarate 200 Mg Tablet) 200 mg PO BID@0900,1400 DAVY Last Admin: 12/30/21 14:22 Dose: 200 mg Quetiapine Fumarate (Quetiapine Fumarate 400 Mg Tablet) 400 mg PO BEDTIME DAVY Last Admin: 12/29/21 20:59 Dose: 400 mg Quetiapine Fumarate (Quetiapine Fumarate 200 Mg Tablet) 200 mg PO Q2H PRN PRN Reason: insomnia Last Admin: 12/30/21 22:30 Dose: 200 mg Simethicone (Simethicone 80 Mg Tab.Chew) 80 mg PO QIDWMHS PRN PRN Reason: flatulence Last Admin: 12/20/21 22:49 Dose: 80 mg Tamsulosin HCl (Tamsulosin Hcl 0.4 Mg Capsule) 0.4 mg PO BEDTIME [facility] Last Admin: 01/01/22 22:29 Dose: 0.4 mg Trazodone HCl (Trazodone Hcl 50 Mg Tablet) 150 mg PO BEDTIME [facility] Last Admin: 01/01/22 22:38 Dose: 150 mg Trazodone HCl (Trazodone Hcl 50 Mg Tablet) 50 mg PO BEDTIME PRN PRN Reason: Insomnia Last Admin: 12/29/21 20:59 Dose: 50 mg Vitamin E (Vitamin E (Dl,Tocopheryl Acet) 180 Mg (400 Unit) Capsule) 180 mg PO BID [facility] Last Admin: 01/02/22 08:13 Dose: 180 mg Allergies Allergies Allergy/AdvReac Type Severity Reaction Status Date / Time divalproex sodium Allergy Severe PANCREATITI Verified 11/24/21 14:34 [From DEPAKOTE] S haloperidol [From Haldol] Allergy Intermediate DYSTONIC Verified 11/24/21 14:34 REACTION Assessment & Plan Assessment & Plan (1) Schizoaffective disorder: Status: Acute Code(s): F25.9 - Schizoaffective disorder, unspecified (2) Cellulitis: Status: Acute Code(s): L03.90 - Cellulitis, unspecified Assessment and Plan: 51yo M with COPD, HLD, obesity, BPH, ex-smoker, bipolar-type schizoaffective disorder admitted to [facility]. Developed infection of R foot yesterday as well as symptomatic Covid-19 infection without hypoxia. # nonpurulent cellulitis - doxycycline x7d. no need for blood culture. monitor clinically for improvement. (3) COVID-19: Status: Acute Code(s): U07.1 - COVID-19 Assessment and Plan: 51yo M with COPD, HLD, obesity, BPH, ex-smoker, bipolar-type schizoaffective disorder admitted to [facility]. Developed infection of R foot yesterday as well as symptomatic Covid-19 infection without hypoxia. # Covid-19 infection - not hypoxic; no steroids indicated. Paxlovid contraindicated by use of carbamezapine. can give 3 days of IV remdesivir as alternative. Monitor SaO2 qshift. beginning 12/20/21, isolation x5d then mask-wearing x5d Plan 12/03: continue home meds for now. CV rejected as pt unable to appreciate the circumstances of his admission. will need commitment and benedicto's order. T/C restarting clozaril and lithium, on which pt did well for many years, reportedly. tegretol increased from 400 BID to 600 BID at admission. 12/04: klonopin 0.5/0.5/1 reinstated 12/04 (outpt provider had started it 11/25 at 1 mg TID). magic mouthwash started for oral ulcers. 12/05: slept well last night, still pressured and disorganized.? continue current mgmt. 12/08: 12b up, applied for commitment and meds.? making sexually inappropriate comments/suggestions to staff, threatening violence and toward male peer. 12/09: same presentation as yesterday.? started lithium 450 mg BID today. 12/10: no change in presentation, compliant with lithium. 12/11: DC prazosin to see if B/L pedal edema decreases.? DC pravachol as pt is refusing it.? order lac-hydrin for plantar fissure.? otherwise continue previous mgmt.? perhaps slight decrease in pressure and disorganization. 12/12: pedal edema no worse, perhaps better.? no GI side effects from lithium.? fissure looks improved with cream.? check lithium, tegretol, associated labs on wednesday (ordered).? titrate lithium as indicated. 12/13 pt manic, disorganized, intrusive, blaming, threatening (told press writer someone would come over and break his neck) -consider switching to Zyprexa from seroquel 12/14 her is manic, intrusive irritable, grandiose [place] level subtherapeutic; however patient is very anxious about this medication causing side effects and at this time press writer thinks it might be better to leave it is current dose since patient continues to take it and trying to increase it may very well cause him to refuse it altogether; he is also on Tegretol.? Perhaps switching antipsychotics to Zyprexa is warranted.? Patient says he has never taken Zyprexa before.? Patient typically knows his medication history however usually when someone gets on clozapine it is because most other medications have not worked.? [place] has just reached at steady state so will hold off making medication adjustments right now to see if there can be any further benefit observed from currently lithium dose and medication regimen. 12/15 no change; clonazepam at started off and was not restarted.? Patient did take p.o. laxatives and had a bowel movement says he feels better. 12/16:? increase tegretol from 600 BID to 600/800 tonight, as level around 7.? lithium sub-therapeutic but pt resistant to increase, will see how much better he can get on higher tegretol dosing.? T/C switching anti-psychotic to zyprexa, as pt has done well on clozaril in the past.? TEDs obtained for pedal edema. 12/17: no change in mgmt.? presentation not substantially changed.? some agitation today. 12/18: presentation essentially unchanged.? no agitation today, sleeping late morning. 12/19: Assessed for pedal edema, spoke with hospitalist, BNP, BMP wnl, venous doppler wnl. Per hospitalist, continue with TEDs, may consider low dose lasix. 12/20: stable presentation.? continue current mgmt.? check tegretol level about a week after dose increase.? trending more calm than earlier in his stay but remains very psychotic.? T/C trial of olanzapine. 12/21:? taper and DC lithium and it appears to be having unsustainable physical side effects (B/L LE edema, now possibly with cellulitis).? also tested COVID POS today, satting mid 902 on RA.? hospitalist consult placed for eval of COVID severity and R/O cellulitis.? T/C olanzapine trial once lithium has been DCed. 12/22: stable, appears medically better than yesterday. continue lithium taper, to 150 BID tonight and tomorrow morning. start ibuprofen for better pain control with COVID. continue antibiotic and antiviral. 12/24 continue current tx. O2 sat >93, no s/s of respiratory distress. afebrile. 12/25: course of remdesivir complete, doxy ongoing. rash has not spread, likely related to edema and dependent limbs. less purpuric and more pinpoint red with bruising. edema improved. c/o productive cough, expectorant Rx'ed. otherwise continue current mgmt. per CDC guidelines, persons with moderate COVID (which includes having oxygen saturation less than 94%) should isolate for 10 days. 12/26: stable, in quarantine day #6 of . continue current mgmt. check labs on wednesday morning. 12/27: Continue current regimen and plans. Continue quarantine. 12/28: Continue current plans and regimen 12/29: increasingly disorganized and hyperverbal since DC of lithium. B/L pedal edema dose seem to be improving. day #9 of quarantine. tegretol level 8, other labs unremarkable aside from anemia. 12/30: obsessively scrubbing floor overnight, up all NOC. sleeping during day. more disorganized, hyperverbal. DC seroquel and start olanzapine 30 mg QHS. seroquel 200 mg PRNs for insomnia. 12/31: c/o persisting edema. perhaps lithium is not the largest offender; the only other change has been increasing tegretol dosing (edema identified as a side effect only in post-marketing, frequency not provided by update). lasix 20 mg one time tomorrow morning. otherwise continue current mgmt. slept well last night with zyprexa at HS. 01/01: slept 3 hours overnight. give lasix 40 mg daily x 3 days as 20 mg dose this morning was not effective. pedal edema remains below the ankle. continue current mgmt otherwise. 01/02: continues to have only several hours of sleep at night. reports good diuresis on lasix 40. continue to monitor pedal edema and efficacy of olanzapine + tegretol (and perphenazine) regimen. I spent __20____ minutes with the patient and/or on the patient floor today, greater than?50% of which was spent counseling/coordinating care. Reason for contiued inpatient stay Substantial Risk for: harm to self, harm to others, inability to function and rapid decompensation
[2022-01-02 22:40] VITALS: BP 129/88; PULSE 102; RESP 18; TEMP 36.5; O2SAT 96
[2022-01-02] MEDS: Artificial Tears 15 ML DROPS 2 DROP EYE-BOTH (22:42)
[2022-01-02] MEDS: OLANZapine ODT 10 MG TAB.RAPDIS 30 MG TRANSLINGU (22:49)
[2022-01-02] MEDS: Tamsulosin HCL 0.4 MG CAPSULE PO (22:53)
[2022-01-02] MEDS: traZODone HCL 50 MG TABLET 150 MG PO (22:53)
[2022-01-02] MEDS: Prazosin HCL 1 MG CAPSULE 2 MG PO (22:54)
[2022-01-02] MEDS: traZODone HCL 50 MG TABLET PO (22:54)
[2022-01-02] MEDS: OLANZapine 5 MG TABLET PO (22:55)
[2022-01-02] MEDS: hydrOXYzine HCL 50 MG TABLET PO (22:55)
[2022-01-02] MEDS: Ibuprofen 600 MG TABLET PO (23:11)
[2022-01-03] MEDS: Nicotine Polacrilex 2 MG GUM 4 MG BUCCAL ×10 (01:01→23:24)
[2022-01-03] MEDS: Ammonium Lactate 12 % Lotion 226 GM BOTTLE 1 APPL TOPICAL (02:15)
[2022-01-03] MEDS: OLANZapine 5 MG TABLET PO ×2 (06:46→23:31)
[2022-01-03] MEDS: guaiFENesin LA 600 MG TAB.ER.12H PO ×2 (06:46→23:25)
[2022-01-03] MEDS: Ibuprofen 600 MG TABLET PO ×2 (06:47→23:31)
[2022-01-03] MEDS: hydrOXYzine HCL 50 MG TABLET PO (06:48)
[2022-01-03 08:00] VITALS: BP 133/85; PULSE 84; RESP 18; TEMP 36.6; O2SAT 100
[2022-01-03] MEDS: carBAMazepine ER 200 MG TAB.ER.12H 800 MG PO ×2 (08:34→23:25)
[2022-01-03] MEDS: Vitamin E (Dl,Tocopheryl Acet) 180 MG (400 UNIT) CAPSULE PO ×2 (08:34→23:28)
[2022-01-03] MEDS: Perphenazine 8 MG TABLET 16 MG PO ×3 (08:35→23:28)
[2022-01-03] MEDS: Furosemide 40 MG TABLET PO (08:36)
[2022-01-03] MEDS: clonazePAM 1 MG TABLET PO ×3 (08:38→23:32)
[2022-01-03] MEDS: Famotidine 20 MG TABLET PO ×2 (08:39→23:31)
[2022-01-03] MEDS: Ascorbic Acid 250 MG TABLET PO (08:39)
[2022-01-03] MEDS: Fluticasone/Vilanterol 100/25 BLST.W.DEV 1 PUFF INHALE (08:40)
--- NOTE | 2022-01-03 09:04 | HO.PSYCHPN ---
Subjective Subjective Date of Service: 01/03/22 Reason For Visit: psychosis Subjective Notes: Conditional Voluntary Interim History: Pt in bed. He denies any concerns other than bilat edema, some suspiciousness about it stating I don't trust anyone here, but later reassured by statement that his primary psychiatrist will be back on Wednesday. He denies SI/HI. Speech at times is unintelligible. No aggression towards self or others. Medication Compliance: Yes Side effects from medications: No Review of Systems Review of Systems Lower extremity edema Yes all other systems are reviewed and are negative and Unobtainable due to mental status Mental Status Exam Mental Status Exam Narrative: up and about the unit, dressed in [facility]. behavior is cooperative; adequate hygiene; affect normo-intense, min-labile; Speech incr rate, nml amount, nml loudness. nml prosody, decr latency; thought process continues more organized. no SI/HI/AVH expressed. Patients insight and judgment are impaired. Diagnostics Vital Signs (24Hr): Vital Signs - 24 hr 01/04/22 08:05 Temperature 97.7 F Pulse Rate 68 Respiratory Rate 18 Blood Pressure 115/63 Pulse Oximetry 95 Oxygen Delivery Method Room Air BMI result Body Mass Index 31.4 Labs Results: 12/29/21 08:55 12/29/21 08:55 Imaging Radiology Impressions: ITS Impressions Venous Duplex 12/19/21 20:16 IMPRESSION: No DVT demonstrated in the bilateral lower extremity. Medications Medications Current Medications Acetaminophen (Acetaminophen 325 Mg Tablet) 650 mg PO Q6H PRN PRN Reason: Headache/Pain Mild Scale (1-3) Last Admin: 12/30/21 18:04 Dose: 650 mg Al Hydroxide/Mg Hydroxide (Magnesium Hydrox/Alum Hydrox 30 Ml Oral.Susp) 30 ml PO Q6H PRN PRN Reason: Heartburn/Nausea Last Admin: 12/31/21 00:09 Dose: 30 ml Albuterol Sulfate (Albuterol Sulfate 90 Mcg 8 Gm Inhaler) 2 puff INHALE Q4H PRN PRN Reason: shortness of breath or wheezing Last Admin: 12/26/21 21:31 Dose: 2 puff Artificial Tears (Artificial Tears 15 Ml Drops) 2 drop EYE-BOTH Q4H PRN PRN Reason: Dry Eyes Last Admin: 01/04/22 22:55 Dose: 2 drop Ascorbic Acid (Ascorbic Acid 250 Mg Tablet) 250 mg PO DAILY [facility] Last Admin: 01/04/22 09:06 Dose: 250 mg Benzocaine (Throat Lozenge, Medicated Lozenge) 1 lozenge MUCOUS MEM Q1H PRN PRN Reason: Sore Throat Last Admin: 12/27/21 06:54 Dose: 1 lozenge Bisacodyl (Bisacodyl 10 Mg Supp.Rect) 10 mg WA BEDTIME PRN PRN Reason: Constipation Last Admin: 12/06/21 21:14 Dose: 10 mg Carbamazepine (Carbamazepine Er 200 Mg Tab.Er.12h) 800 mg PO BEDTIME [facility] Last Admin: 01/04/22 22:52 Dose: 800 mg Carbamazepine (Carbamazepine Er 200 Mg Tab.Er.12h) 800 mg PO DAILY [facility] Last Admin: 01/04/22 09:05 Dose: 800 mg Clonazepam (Clonazepam 1 Mg Tablet) 1 mg PO TID [facility] Last Admin: 01/05/22 00:07 Dose: 1 mg Famotidine (Famotidine 20 Mg Tablet) 20 mg PO BID [facility] Last Admin: 01/04/22 22:53 Dose: 20 mg Fluticasone/Vilanterol (Fluticasone/Vilanterol 100/25 Blst.W.Dev) 1 puff INHALE DAILY [facility] Last Admin: 01/04/22 09:05 Dose: 1 puff Guaifenesin (Guaifenesin La 600 Mg Tab.Er.12h) 600 mg PO BID PRN PRN Reason: thick secretions Last Admin: 01/03/22 23:25 Dose: 600 mg Hydroxyzine HCl (Hydroxyzine Hcl 50 Mg Tablet) 50 mg PO Q6H PRN PRN Reason: Anxiety Last Admin: 01/03/22 06:48 Dose: 50 mg Ibuprofen (Ibuprofen 600 Mg Tablet) 600 mg PO Q6H PRN PRN Reason: aches and pains Last Admin: 01/04/22 14:28 Dose: 600 mg Lactic Acid (Ammonium Lactate 12 % Lotion 226 Gm Bottle) 1 appl TOPICAL BID [facility]; Protocol Last Admin: 01/04/22 23:18 Dose: Not Given Lidocaine/Diphenhydr/Alum/Mg/Simeth (Mag&Al/Sim/Diphenhyd/Lidocaine 10 Ml Oral.Susp) 10 ml PO Q4H PRN; Protocol PRN Reason: oral mucous membrane ulcer jeremiah Last Admin: 12/20/21 02:20 Dose: 10 ml Magnesium Hydroxide (Milk Of Magnesia 30 Ml Oral.Susp) 30 ml PO DAILY PRN PRN Reason: Constipation Last Admin: 01/04/22 14:27 Dose: 30 ml Nicotine Polacrilex (Nicotine Polacrilex 2 Mg Gum) 4 mg BUCCAL Q1H PRN PRN Reason: Nicotine Cravings Last Admin: 01/05/22 04:29 Dose: 4 mg Olanzapine (Olanzapine 5 Mg Tablet) 5 mg PO Q4H PRN PRN Reason: ginny/psychosis Last Admin: 01/03/22 23:31 Dose: 5 mg Olanzapine (Olanzapine Odt 10 Mg Tab.Rapdis) 30 mg TRANSLINGU BEDTIME [facility] Last Admin: 01/04/22 22:52 Dose: 30 mg Perphenazine (Perphenazine 8 Mg Tablet) 16 mg PO TID [facility] Last Admin: 01/04/22 22:52 Dose: 16 mg Prazosin HCl (Prazosin Hcl 1 Mg Capsule) 2 mg PO BEDTIME [facility]; Protocol Last Admin: 01/04/22 22:52 Dose: 2 mg Psyllium Hydrophilic Mucilloid (Psyllium Seed 3.4 Gm Powd.Pack) 3.4 gm PO BID [facility] Last Admin: 01/04/22 22:55 Dose: 3.4 gm Quetiapine Fumarate (Quetiapine Fumarate 200 Mg Tablet) 200 mg PO BID@0900,1400 [facility] Last Admin: 12/30/21 14:22 Dose: 200 mg Quetiapine Fumarate (Quetiapine Fumarate 400 Mg Tablet) 400 mg PO BEDTIME [facility] Last Admin: 12/29/21 20:59 Dose: 400 mg Quetiapine Fumarate (Quetiapine Fumarate 200 Mg Tablet) 200 mg PO Q2H PRN PRN Reason: insomnia Last Admin: 12/30/21 22:30 Dose: 200 mg Simethicone (Simethicone 80 Mg Tab.Chew) 80 mg PO QIDWMHS PRN PRN Reason: flatulence Last Admin: 12/20/21 22:49 Dose: 80 mg Tamsulosin HCl (Tamsulosin Hcl 0.4 Mg Capsule) 0.4 mg PO BEDTIME [facility] Last Admin: 01/04/22 22:52 Dose: 0.4 mg Trazodone HCl (Trazodone Hcl 50 Mg Tablet) 150 mg PO BEDTIME [facility] Last Admin: 01/04/22 22:52 Dose: 150 mg Trazodone HCl (Trazodone Hcl 50 Mg Tablet) 50 mg PO BEDTIME PRN PRN Reason: Insomnia Last Admin: 01/02/22 22:54 Dose: 50 mg Vitamin E (Vitamin E (Dl,Tocopheryl Acet) 180 Mg (400 Unit) Capsule) 180 mg PO BID [facility] Last Admin: 01/04/22 22:51 Dose: 180 mg Allergies Allergies Allergy/AdvReac Type Severity Reaction Status Date / Time divalproex sodium Allergy Severe PANCREATITI Verified 11/24/21 14:34 [From DEPAKOTE] S haloperidol [From Haldol] Allergy Intermediate DYSTONIC Verified 11/24/21 14:34 REACTION Assessment & Plan Assessment & Plan (1) Schizoaffective disorder: Status: Acute Code(s): F25.9 - Schizoaffective disorder, unspecified (2) Cellulitis: Status: Acute Code(s): L03.90 - Cellulitis, unspecified Assessment and Plan: 51yo M with COPD, HLD, obesity, BPH, ex-smoker, bipolar-type schizoaffective disorder admitted to [facility]. Developed infection of R foot yesterday as well as symptomatic Covid-19 infection without hypoxia. # nonpurulent cellulitis - doxycycline x7d. no need for blood culture. monitor clinically for improvement. (3) COVID-19: Status: Acute Code(s): U07.1 - COVID-19 Assessment and Plan: 51yo M with COPD, HLD, obesity, BPH, ex-smoker, bipolar-type schizoaffective disorder admitted to [facility]. Developed infection of R foot yesterday as well as symptomatic Covid-19 infection without hypoxia. # Covid-19 infection - not hypoxic; no steroids indicated. Paxlovid contraindicated by use of carbamezapine. can give 3 days of IV remdesivir as alternative. Monitor SaO2 qshift. beginning 12/20/21, isolation x5d then mask-wearing x5d Plan 12/03: continue home meds for now. CV rejected as pt unable to appreciate the circumstances of his admission. will need commitment and benedicto's order. T/C restarting clozaril and lithium, on which pt did well for many years, reportedly. tegretol increased from 400 BID to 600 BID at admission. 12/04: klonopin 0.5/0.5/1 reinstated 12/04 (outpt provider had started it 11/25 at 1 mg TID). magic mouthwash started for oral ulcers. 12/05: slept well last night, still pressured and disorganized.? continue current mgmt. 12/08: 12b up, applied for commitment and meds.? making sexually inappropriate comments/suggestions to staff, threatening violence and toward male peer. 12/09: same presentation as yesterday.? started lithium 450 mg BID today. 12/10: no change in presentation, compliant with lithium. 12/11: DC prazosin to see if B/L pedal edema decreases.? DC pravachol as pt is refusing it.? order lac-hydrin for plantar fissure.? otherwise continue previous mgmt.? perhaps slight decrease in pressure and disorganization. 12/12: pedal edema no worse, perhaps better.? no GI side effects from lithium.? fissure looks improved with cream.? check lithium, tegretol, associated labs on wednesday (ordered).? titrate lithium as indicated. 12/13 pt manic, disorganized, intrusive, blaming, threatening (told filing writer someone would come over and break his neck) -consider switching to Zyprexa from seroquel 12/14 her is manic, intrusive irritable, grandiose [place] level subtherapeutic; however patient is very anxious about this medication causing side effects and at this time filing writer thinks it might be better to leave it is current dose since patient continues to take it and trying to increase it may very well cause him to refuse it altogether; he is also on Tegretol.? Perhaps switching antipsychotics to Zyprexa is warranted.? Patient says he has never taken Zyprexa before.? Patient typically knows his medication history however usually when someone gets on clozapine it is because most other medications have not worked.? [place] has just reached at steady state so will hold off making medication adjustments right now to see if there can be any further benefit observed from currently lithium dose and medication regimen. 12/15 no change; clonazepam at started off and was not restarted.? Patient did take p.o. laxatives and had a bowel movement says he feels better. 12/16:? increase tegretol from 600 BID to 600/800 tonight, as level around 7.? lithium sub-therapeutic but pt resistant to increase, will see how much better he can get on higher tegretol dosing.? T/C switching anti-psychotic to zyprexa, as pt has done well on clozaril in the past.? TEDs obtained for pedal edema. 12/17: no change in mgmt.? presentation not substantially changed.? some agitation today. 12/18: presentation essentially unchanged.? no agitation today, sleeping late morning. 12/19: Assessed for pedal edema, spoke with hospitalist, BNP, BMP wnl, venous doppler wnl. Per hospitalist, continue with TEDs, may consider low dose lasix. 12/20: stable presentation.? continue current mgmt.? check tegretol level about a week after dose increase.? trending more calm than earlier in his stay but remains very psychotic.? T/C trial of olanzapine. 12/21:? taper and DC lithium and it appears to be having unsustainable physical side effects (B/L LE edema, now possibly with cellulitis).? also tested COVID POS today, satting mid 902 on RA.? hospitalist consult placed for eval of COVID severity and R/O cellulitis.? T/C olanzapine trial once lithium has been DCed. 12/22: stable, appears medically better than yesterday. continue lithium taper, to 150 BID tonight and tomorrow morning. start ibuprofen for better pain control with COVID. continue antibiotic and antiviral. 12/24 continue current tx. O2 sat >93, no s/s of respiratory distress. afebrile. 12/25: course of remdesivir complete, doxy ongoing. rash has not spread, likely related to edema and dependent limbs. less purpuric and more pinpoint red with bruising. edema improved. c/o productive cough, expectorant Rx'ed. otherwise continue current mgmt. per CDC guidelines, persons with moderate COVID (which includes having oxygen saturation less than 94%) should isolate for 10 days. 12/26: stable, in quarantine day #6 of . continue current mgmt. check labs on wednesday morning. 12/27: Continue current regimen and plans. Continue quarantine. 12/28: Continue current plans and regimen 12/29: increasingly disorganized and hyperverbal since DC of lithium. B/L pedal edema dose seem to be improving. day #9 of quarantine. tegretol level 8, other labs unremarkable aside from anemia. 12/30: obsessively scrubbing floor overnight, up all NOC. sleeping during day. more disorganized, hyperverbal. DC seroquel and start olanzapine 30 mg QHS. seroquel 200 mg PRNs for insomnia. 12/31: c/o persisting edema. perhaps lithium is not the largest offender; the only other change has been increasing tegretol dosing (edema identified as a side effect only in post-marketing, frequency not provided by [facility]). lasix 20 mg one time tomorrow morning. otherwise continue current mgmt. slept well last night with zyprexa at HS. 01/01: slept 3 hours overnight. give lasix 40 mg daily x 3 days as 20 mg dose this morning was not effective. pedal edema remains below the ankle. continue current mgmt otherwise. 01/02: continues to have only several hours of sleep at night. reports good diuresis on lasix 40. continue to monitor pedal edema and efficacy of olanzapine + tegretol (and perphenazine) regimen. 01/03 continue current plan. I spent minutes with the patient and/or on the patient floor today, greater than?50% of which was spent counseling/coordinating care. Reason for contiued inpatient stay Substantial Risk for: inability to function
[2022-01-03] MEDS: Milk of Magnesia 30 ML ORAL.SUSP PO (18:43)
[2022-01-03] MEDS: OLANZapine ODT 10 MG TAB.RAPDIS 30 MG TRANSLINGU (23:28)
[2022-01-03] MEDS: Tamsulosin HCL 0.4 MG CAPSULE PO (23:29)
[2022-01-03] MEDS: Artificial Tears 15 ML DROPS 2 DROP EYE-BOTH (23:49)
[2022-01-03 23:50] VITALS: BP 108/79; PULSE 77; RESP 18; TEMP 36.4; O2SAT 96
[2022-01-03] MEDS: Prazosin HCL 1 MG CAPSULE 2 MG PO (23:51)
[2022-01-04] MEDS: Nicotine Polacrilex 2 MG GUM 4 MG BUCCAL ×9 (02:33→22:48)
[2022-01-04 08:05] VITALS: BP 115/63; PULSE 68; RESP 18; TEMP 36.5; O2SAT 95
[2022-01-04] MEDS: Vitamin E (Dl,Tocopheryl Acet) 180 MG (400 UNIT) CAPSULE PO ×2 (09:03→22:51)
[2022-01-04] MEDS: Perphenazine 8 MG TABLET 16 MG PO ×3 (09:03→22:52)
[2022-01-04] MEDS: clonazePAM 1 MG TABLET PO ×2 (09:04→14:28)
[2022-01-04] MEDS: carBAMazepine ER 200 MG TAB.ER.12H 800 MG PO ×2 (09:05→22:52)
[2022-01-04] MEDS: Fluticasone/Vilanterol 100/25 BLST.W.DEV 1 PUFF INHALE (09:05)
[2022-01-04] MEDS: Ascorbic Acid 250 MG TABLET PO (09:06)
[2022-01-04] MEDS: Furosemide 40 MG TABLET PO (09:06)
[2022-01-04] MEDS: Famotidine 20 MG TABLET PO ×2 (09:08→22:53)
[2022-01-04] MEDS: Ammonium Lactate 12 % Lotion 226 GM BOTTLE 1 APPL TOPICAL (09:08)
--- NOTE | 2022-01-04 11:08 | HO.PSYCHPN ---
Subjective Subjective Date of Service: 01/04/22 Reason For Visit: psychosis Subjective Notes: Conditional Voluntary Interim History: Pt visible on the unit. Again reports concern about edema of ember LE. When this junior technical writer asked if I can take a look, pt declined and again reassured he will be seeing his psychiatrist on Wednesday. He denies SI/HI. Some suspiciousness. Slept through the night. No behavioral concerns. Speech at times unintelligible. Medication Compliance: Yes Side effects from medications: No Review of Systems Review of Systems Lower extremity edema Yes all other systems are reviewed and are negative and Unobtainable due to mental status Mental Status Exam Mental Status Exam Narrative: up and about the unit, dressed in [facility]. behavior is cooperative; adequate hygiene; affect normo-intense, min-labile; Speech incr rate, nml amount, nml loudness. nml prosody, decr latency; thought process continues more organized. no SI/HI/AVH expressed. Patients insight and judgment are impaired. Diagnostics Vital Signs (24Hr): Vital Signs - 24 hr 01/04/22 08:05 Temperature 97.7 F Pulse Rate 68 Respiratory Rate 18 Blood Pressure 115/63 Pulse Oximetry 95 Oxygen Delivery Method Room Air BMI result Body Mass Index 31.4 Labs Results: 12/29/21 08:55 12/29/21 08:55 Imaging Radiology Impressions: ITS Impressions Venous Duplex 12/19/21 20:16 IMPRESSION: No DVT demonstrated in the bilateral lower extremity. Medications Medications Current Medications Acetaminophen (Acetaminophen 325 Mg Tablet) 650 mg PO Q6H PRN PRN Reason: Headache/Pain Mild Scale (1-3) Last Admin: 12/30/21 18:04 Dose: 650 mg Al Hydroxide/Mg Hydroxide (Magnesium Hydrox/Alum Hydrox 30 Ml Oral.Susp) 30 ml PO Q6H PRN PRN Reason: Heartburn/Nausea Last Admin: 12/31/21 00:09 Dose: 30 ml Albuterol Sulfate (Albuterol Sulfate 90 Mcg 8 Gm Inhaler) 2 puff INHALE Q4H PRN PRN Reason: shortness of breath or wheezing Last Admin: 12/26/21 21:31 Dose: 2 puff Artificial Tears (Artificial Tears 15 Ml Drops) 2 drop EYE-BOTH Q4H PRN PRN Reason: Dry Eyes Last Admin: 01/04/22 22:55 Dose: 2 drop Ascorbic Acid (Ascorbic Acid 250 Mg Tablet) 250 mg PO DAILY [facility] Last Admin: 01/04/22 09:06 Dose: 250 mg Benzocaine (Throat Lozenge, Medicated Lozenge) 1 lozenge MUCOUS MEM Q1H PRN PRN Reason: Sore Throat Last Admin: 12/27/21 06:54 Dose: 1 lozenge Bisacodyl (Bisacodyl 10 Mg Supp.Rect) 10 mg NC BEDTIME PRN PRN Reason: Constipation Last Admin: 12/06/21 21:14 Dose: 10 mg Carbamazepine (Carbamazepine Er 200 Mg Tab.Er.12h) 800 mg PO BEDTIME [facility] Last Admin: 01/04/22 22:52 Dose: 800 mg Carbamazepine (Carbamazepine Er 200 Mg Tab.Er.12h) 800 mg PO DAILY [facility] Last Admin: 01/04/22 09:05 Dose: 800 mg Clonazepam (Clonazepam 1 Mg Tablet) 1 mg PO TID [facility] Last Admin: 01/05/22 00:07 Dose: 1 mg Famotidine (Famotidine 20 Mg Tablet) 20 mg PO BID [facility] Last Admin: 01/04/22 22:53 Dose: 20 mg Fluticasone/Vilanterol (Fluticasone/Vilanterol 100/25 Blst.W.Dev) 1 puff INHALE DAILY [facility] Last Admin: 01/04/22 09:05 Dose: 1 puff Guaifenesin (Guaifenesin La 600 Mg Tab.Er.12h) 600 mg PO BID PRN PRN Reason: thick secretions Last Admin: 01/03/22 23:25 Dose: 600 mg Hydroxyzine HCl (Hydroxyzine Hcl 50 Mg Tablet) 50 mg PO Q6H PRN PRN Reason: Anxiety Last Admin: 01/03/22 06:48 Dose: 50 mg Ibuprofen (Ibuprofen 600 Mg Tablet) 600 mg PO Q6H PRN PRN Reason: aches and pains Last Admin: 01/04/22 14:28 Dose: 600 mg Lactic Acid (Ammonium Lactate 12 % Lotion 226 Gm Bottle) 1 appl TOPICAL BID [facility]; Protocol Last Admin: 01/04/22 23:18 Dose: Not Given Lidocaine/Diphenhydr/Alum/Mg/Simeth (Mag&Al/Sim/Diphenhyd/Lidocaine 10 Ml Oral.Susp) 10 ml PO Q4H PRN; Protocol PRN Reason: oral mucous membrane ulcer jeremiah Last Admin: 12/20/21 02:20 Dose: 10 ml Magnesium Hydroxide (Milk Of Magnesia 30 Ml Oral.Susp) 30 ml PO DAILY PRN PRN Reason: Constipation Last Admin: 01/04/22 14:27 Dose: 30 ml Nicotine Polacrilex (Nicotine Polacrilex 2 Mg Gum) 4 mg BUCCAL Q1H PRN PRN Reason: Nicotine Cravings Last Admin: 01/05/22 04:29 Dose: 4 mg Olanzapine (Olanzapine 5 Mg Tablet) 5 mg PO Q4H PRN PRN Reason: ginny/psychosis Last Admin: 01/03/22 23:31 Dose: 5 mg Olanzapine (Olanzapine Odt 10 Mg Tab.Rapdis) 30 mg TRANSLINGU BEDTIME [facility] Last Admin: 01/04/22 22:52 Dose: 30 mg Perphenazine (Perphenazine 8 Mg Tablet) 16 mg PO TID [facility] Last Admin: 01/04/22 22:52 Dose: 16 mg Prazosin HCl (Prazosin Hcl 1 Mg Capsule) 2 mg PO BEDTIME [facility]; Protocol Last Admin: 01/04/22 22:52 Dose: 2 mg Psyllium Hydrophilic Mucilloid (Psyllium Seed 3.4 Gm Powd.Pack) 3.4 gm PO BID [facility] Last Admin: 01/04/22 22:55 Dose: 3.4 gm Quetiapine Fumarate (Quetiapine Fumarate 200 Mg Tablet) 200 mg PO BID@0900,1400 [facility] Last Admin: 12/30/21 14:22 Dose: 200 mg Quetiapine Fumarate (Quetiapine Fumarate 400 Mg Tablet) 400 mg PO BEDTIME [facility] Last Admin: 12/29/21 20:59 Dose: 400 mg Quetiapine Fumarate (Quetiapine Fumarate 200 Mg Tablet) 200 mg PO Q2H PRN PRN Reason: insomnia Last Admin: 12/30/21 22:30 Dose: 200 mg Simethicone (Simethicone 80 Mg Tab.Chew) 80 mg PO QIDWMHS PRN PRN Reason: flatulence Last Admin: 12/20/21 22:49 Dose: 80 mg Tamsulosin HCl (Tamsulosin Hcl 0.4 Mg Capsule) 0.4 mg PO BEDTIME [facility] Last Admin: 01/04/22 22:52 Dose: 0.4 mg Trazodone HCl (Trazodone Hcl 50 Mg Tablet) 150 mg PO BEDTIME [facility] Last Admin: 01/04/22 22:52 Dose: 150 mg Trazodone HCl (Trazodone Hcl 50 Mg Tablet) 50 mg PO BEDTIME PRN PRN Reason: Insomnia Last Admin: 01/02/22 22:54 Dose: 50 mg Vitamin E (Vitamin E (Dl,Tocopheryl Acet) 180 Mg (400 Unit) Capsule) 180 mg PO BID [facility] Last Admin: 01/04/22 22:51 Dose: 180 mg Allergies Allergies Allergy/AdvReac Type Severity Reaction Status Date / Time divalproex sodium Allergy Severe PANCREATITI Verified 11/24/21 14:34 [From DEPAKOTE] S haloperidol [From Haldol] Allergy Intermediate DYSTONIC Verified 11/24/21 14:34 REACTION Assessment & Plan Assessment & Plan (1) Schizoaffective disorder: Status: Acute Code(s): F25.9 - Schizoaffective disorder, unspecified (2) Cellulitis: Status: Acute Code(s): L03.90 - Cellulitis, unspecified Assessment and Plan: 51yo M with COPD, HLD, obesity, BPH, ex-smoker, bipolar-type schizoaffective disorder admitted to [facility]. Developed infection of R foot yesterday as well as symptomatic Covid-19 infection without hypoxia. # nonpurulent cellulitis - doxycycline x7d. no need for blood culture. monitor clinically for improvement. (3) COVID-19: Status: Acute Code(s): U07.1 - COVID-19 Assessment and Plan: 51yo M with COPD, HLD, obesity, BPH, ex-smoker, bipolar-type schizoaffective disorder admitted to [facility]. Developed infection of R foot yesterday as well as symptomatic Covid-19 infection without hypoxia. # Covid-19 infection - not hypoxic; no steroids indicated. Paxlovid contraindicated by use of carbamezapine. can give 3 days of IV remdesivir as alternative. Monitor SaO2 qshift. beginning 12/20/21, isolation x5d then mask-wearing x5d Plan 12/03: continue home meds for now. CV rejected as pt unable to appreciate the circumstances of his admission. will need commitment and benedicto's order. T/C restarting clozaril and lithium, on which pt did well for many years, reportedly. tegretol increased from 400 BID to 600 BID at admission. 12/04: klonopin 0.5/0.5/1 reinstated 12/04 (outpt provider had started it 11/25 at 1 mg TID). magic mouthwash started for oral ulcers. 12/05: slept well last night, still pressured and disorganized.? continue current mgmt. 12/08: 12b up, applied for commitment and meds.? making sexually inappropriate comments/suggestions to staff, threatening violence and toward male peer. 12/09: same presentation as yesterday.? started lithium 450 mg BID today. 12/10: no change in presentation, compliant with lithium. 12/11: DC prazosin to see if B/L pedal edema decreases.? DC pravachol as pt is refusing it.? order lac-hydrin for plantar fissure.? otherwise continue previous mgmt.? perhaps slight decrease in pressure and disorganization. 12/12: pedal edema no worse, perhaps better.? no GI side effects from lithium.? fissure looks improved with cream.? check lithium, tegretol, associated labs on wednesday (ordered).? titrate lithium as indicated. 12/13 pt manic, disorganized, intrusive, blaming, threatening (told junior technical writer someone would come over and break his neck) -consider switching to Zyprexa from seroquel 12/14 her is manic, intrusive irritable, grandiose [place] level subtherapeutic; however patient is very anxious about this medication causing side effects and at this time junior technical writer thinks it might be better to leave it is current dose since patient continues to take it and trying to increase it may very well cause him to refuse it altogether; he is also on Tegretol.? Perhaps switching antipsychotics to Zyprexa is warranted.? Patient says he has never taken Zyprexa before.? Patient typically knows his medication history however usually when someone gets on clozapine it is because most other medications have not worked.? [place] has just reached at steady state so will hold off making medication adjustments right now to see if there can be any further benefit observed from currently lithium dose and medication regimen. 12/15 no change; clonazepam at started off and was not restarted.? Patient did take p.o. laxatives and had a bowel movement says he feels better. 12/16:? increase tegretol from 600 BID to 600/800 tonight, as level around 7.? lithium sub-therapeutic but pt resistant to increase, will see how much better he can get on higher tegretol dosing.? T/C switching anti-psychotic to zyprexa, as pt has done well on clozaril in the past.? TEDs obtained for pedal edema. 12/17: no change in mgmt.? presentation not substantially changed.? some agitation today. 12/18: presentation essentially unchanged.? no agitation today, sleeping late morning. 12/19: Assessed for pedal edema, spoke with hospitalist, BNP, BMP wnl, venous doppler wnl. Per hospitalist, continue with TEDs, may consider low dose lasix. 12/20: stable presentation.? continue current mgmt.? check tegretol level about a week after dose increase.? trending more calm than earlier in his stay but remains very psychotic.? T/C trial of olanzapine. 12/21:? taper and DC lithium and it appears to be having unsustainable physical side effects (B/L LE edema, now possibly with cellulitis).? also tested COVID POS today, satting mid 902 on RA.? hospitalist consult placed for eval of COVID severity and R/O cellulitis.? T/C olanzapine trial once lithium has been DCed. 12/22: stable, appears medically better than yesterday. continue lithium taper, to 150 BID tonight and tomorrow morning. start ibuprofen for better pain control with COVID. continue antibiotic and antiviral. 12/24 continue current tx. O2 sat >93, no s/s of respiratory distress. afebrile. 12/25: course of remdesivir complete, doxy ongoing. rash has not spread, likely related to edema and dependent limbs. less purpuric and more pinpoint red with bruising. edema improved. c/o productive cough, expectorant Rx'ed. otherwise continue current mgmt. per CDC guidelines, persons with moderate COVID (which includes having oxygen saturation less than 94%) should isolate for 10 days. 12/26: stable, in quarantine day #6 of . continue current mgmt. check labs on wednesday morning. 12/27: Continue current regimen and plans. Continue quarantine. 12/28: Continue current plans and regimen 12/29: increasingly disorganized and hyperverbal since DC of lithium. B/L pedal edema dose seem to be improving. day #9 of quarantine. tegretol level 8, other labs unremarkable aside from anemia. 12/30: obsessively scrubbing floor overnight, up all NOC. sleeping during day. more disorganized, hyperverbal. DC seroquel and start olanzapine 30 mg QHS. seroquel 200 mg PRNs for insomnia. 12/31: c/o persisting edema. perhaps lithium is not the largest offender; the only other change has been increasing tegretol dosing (edema identified as a side effect only in post-marketing, [facility] lasix 20 mg one time tomorrow morning. otherwise continue current mgmt. slept well last night with zyprexa at HS. 01/01: slept 3 hours overnight. give lasix 40 mg daily x 3 days as 20 mg dose this morning was not effective. pedal edema remains below the ankle. continue current mgmt otherwise. 01/02: continues to have only several hours of sleep at night. reports good diuresis on lasix 40. continue to monitor pedal edema and efficacy of olanzapine + tegretol (and perphenazine) regimen. 01/03 continue current plan. 01/04 continue tx. I spent minutes with the patient and/or on the patient floor today, greater than?50% of which was spent counseling/coordinating care. Reason for contiued inpatient stay Substantial Risk for: inability to function
[2022-01-04] MEDS: Milk of Magnesia 30 ML ORAL.SUSP PO (14:27)
[2022-01-04] MEDS: Ibuprofen 600 MG TABLET PO (14:28)
[2022-01-04] MEDS: Tamsulosin HCL 0.4 MG CAPSULE PO (22:52)
[2022-01-04] MEDS: traZODone HCL 50 MG TABLET 150 MG PO (22:52)
[2022-01-04] MEDS: OLANZapine ODT 10 MG TAB.RAPDIS 30 MG TRANSLINGU (22:52)
[2022-01-04] MEDS: Prazosin HCL 1 MG CAPSULE 2 MG PO (22:52)
[2022-01-04] MEDS: Artificial Tears 15 ML DROPS 2 DROP EYE-BOTH (22:55)
[2022-01-05] MEDS: clonazePAM 1 MG TABLET PO ×4 (00:07→23:20)
[2022-01-05] MEDS: Nicotine Polacrilex 2 MG GUM 4 MG BUCCAL ×7 (00:32→23:19)
[2022-01-05] MEDS: hydrOXYzine HCL 50 MG TABLET PO ×3 (05:16→23:19)
[2022-01-05] MEDS: Ibuprofen 600 MG TABLET PO ×2 (05:16→14:09)
[2022-01-05] MEDS: OLANZapine 5 MG TABLET PO ×2 (05:18→14:09)
[2022-01-05] MEDS: Artificial Tears 15 ML DROPS 2 DROP EYE-BOTH ×3 (05:18→23:36)
[2022-01-05 06:00] VITALS: BP 134/72; PULSE 87; RESP 17; TEMP 36.2; O2SAT 98
[2022-01-05] MEDS: Ammonium Lactate 12 % Lotion 226 GM BOTTLE 1 APPL TOPICAL (09:59)
[2022-01-05] MEDS: carBAMazepine ER 200 MG TAB.ER.12H 800 MG PO ×2 (10:00→23:22)
[2022-01-05] MEDS: Perphenazine 8 MG TABLET 16 MG PO ×3 (10:00→23:20)
[2022-01-05] MEDS: Vitamin E (Dl,Tocopheryl Acet) 180 MG (400 UNIT) CAPSULE PO ×2 (10:01→23:23)
[2022-01-05] MEDS: Ascorbic Acid 250 MG TABLET PO (10:01)
[2022-01-05] MEDS: Famotidine 20 MG TABLET PO ×2 (10:02→23:23)
[2022-01-05] MEDS: Fluticasone/Vilanterol 100/25 BLST.W.DEV 1 PUFF INHALE (10:04)
--- NOTE | 2022-01-05 14:10 | P.PNPSI_ITS ---
Subjective Subjective Date of Service: 01/05/22 Reason For Visit: psychosis Interim History: found seated at his desk coloring. calm, cooperative. not irritable, but pleasant in general. asking about discharge. reporting his feet continue to be red and swollen. no other complaints or requests. per staff, visible, social. hyperverbal. c/o fingers poking him in the butt. tangential. responds to redirection. slept 7-9 last night, up until 0430. Mental Status Exam Mental Status Exam Narrative: up and about the unit, dressed in [facility]. behavior is cooperative; adequate hygiene; affect normo-intense, non-labile; Speech incr rate, nml amount, nml loudness. nml prosody, decr latency; thought process continues more organized. delusional. no SI/HI/AVH expressed. Patients insight and judgment are impaired. Diagnostics Vital Signs (24Hr): Vital Signs - 24 hr 01/05/22 06:00 Temperature 97.2 F Pulse Rate 87 Respiratory Rate 17 Blood Pressure 134/72 Pulse Oximetry 98 Oxygen Delivery Method Room Air BMI result Body Mass Index 31.4 Labs Results: 12/29/21 08:55 12/29/21 08:55 Imaging Radiology Impressions: ITS Impressions Venous Duplex 12/19/21 20:16 IMPRESSION: No DVT demonstrated in the bilateral lower extremity. Medications Medications Current Medications Acetaminophen (Acetaminophen 325 Mg Tablet) 650 mg PO Q6H PRN PRN Reason: Headache/Pain Mild Scale (1-3) Last Admin: 12/30/21 18:04 Dose: 650 mg Al Hydroxide/Mg Hydroxide (Magnesium Hydrox/Alum Hydrox 30 Ml Oral.Susp) 30 ml PO Q6H PRN PRN Reason: Heartburn/Nausea Last Admin: 12/31/21 00:09 Dose: 30 ml Albuterol Sulfate (Albuterol Sulfate 90 Mcg 8 Gm Inhaler) 2 puff INHALE Q4H PRN PRN Reason: shortness of breath or wheezing Last Admin: 12/26/21 21:31 Dose: 2 puff Artificial Tears (Artificial Tears 15 Ml Drops) 2 drop EYE-BOTH Q4H PRN PRN Reason: Dry Eyes Last Admin: 01/05/22 05:18 Dose: 2 drop Ascorbic Acid (Ascorbic Acid 250 Mg Tablet) 250 mg PO DAILY DAVY Last Admin: 01/05/22 10:01 Dose: 250 mg Benzocaine (Throat Lozenge, Medicated Lozenge) 1 lozenge MUCOUS MEM Q1H PRN PRN Reason: Sore Throat Last Admin: 12/27/21 06:54 Dose: 1 lozenge Bisacodyl (Bisacodyl 10 Mg Supp.Rect) 10 mg OR BEDTIME PRN PRN Reason: Constipation Last Admin: 12/06/21 21:14 Dose: 10 mg Carbamazepine (Carbamazepine Er 200 Mg Tab.Er.12h) 800 mg PO BEDTIME DAVY Last Admin: 01/04/22 22:52 Dose: 800 mg Carbamazepine (Carbamazepine Er 200 Mg Tab.Er.12h) 800 mg PO DAILY DAVY Last Admin: 01/05/22 10:00 Dose: 800 mg Clonazepam (Clonazepam 1 Mg Tablet) 1 mg PO TID DAVY Last Admin: 01/05/22 10:01 Dose: 1 mg Famotidine (Famotidine 20 Mg Tablet) 20 mg PO BID DAVY Last Admin: 01/05/22 10:02 Dose: 20 mg Fluticasone/Vilanterol (Fluticasone/Vilanterol 100/25 Blst.W.Dev) 1 puff INHALE DAILY DAVY Last Admin: 01/05/22 10:04 Dose: 1 puff Guaifenesin (Guaifenesin La 600 Mg Tab.Er.12h) 600 mg PO BID PRN PRN Reason: thick secretions Last Admin: 01/03/22 23:25 Dose: 600 mg Hydroxyzine HCl (Hydroxyzine Hcl 50 Mg Tablet) 50 mg PO Q6H PRN PRN Reason: Anxiety Last Admin: 01/05/22 05:16 Dose: 50 mg Ibuprofen (Ibuprofen 600 Mg Tablet) 600 mg PO Q6H PRN PRN Reason: aches and pains Last Admin: 01/05/22 05:16 Dose: 600 mg Lactic Acid (Ammonium Lactate 12 % Lotion 226 Gm Bottle) 1 appl TOPICAL BID DAVY; Protocol Last Admin: 01/05/22 09:59 Dose: 1 appl Lidocaine/Diphenhydr/Alum/Mg/Simeth (Mag&Al/Sim/Diphenhyd/Lidocaine 10 Ml Oral.Susp) 10 ml PO Q4H PRN; Protocol PRN Reason: oral mucous membrane ulcer jeremiah Last Admin: 12/20/21 02:20 Dose: 10 ml Magnesium Hydroxide (Milk Of Magnesia 30 Ml Oral.Susp) 30 ml PO DAILY PRN PRN Reason: Constipation Last Admin: 01/04/22 14:27 Dose: 30 ml Nicotine Polacrilex (Nicotine Polacrilex 2 Mg Gum) 4 mg BUCCAL Q1H PRN PRN Reason: Nicotine Cravings Last Admin: 01/05/22 10:04 Dose: 4 mg Olanzapine (Olanzapine 5 Mg Tablet) 5 mg PO Q4H PRN PRN Reason: ginny/psychosis Last Admin: 01/05/22 05:18 Dose: 5 mg Olanzapine (Olanzapine Odt 10 Mg Tab.Rapdis) 30 mg TRANSLINGU BEDTIME DAVY Last Admin: 01/04/22 22:52 Dose: 30 mg Perphenazine (Perphenazine 8 Mg Tablet) 16 mg PO TID DAVY Last Admin: 01/05/22 10:00 Dose: 16 mg Prazosin HCl (Prazosin Hcl 1 Mg Capsule) 2 mg PO BEDTIME DAVY; Protocol Last Admin: 01/04/22 22:52 Dose: 2 mg Psyllium Hydrophilic Mucilloid (Psyllium Seed 3.4 Gm Powd.Pack) 3.4 gm PO BID DAVY Last Admin: 01/05/22 09:59 Dose: 3.4 gm Quetiapine Fumarate (Quetiapine Fumarate 200 Mg Tablet) 200 mg PO BID@0900,1400 DAVY Last Admin: 12/30/21 14:22 Dose: 200 mg Quetiapine Fumarate (Quetiapine Fumarate 400 Mg Tablet) 400 mg PO BEDTIME DAVY Last Admin: 12/29/21 20:59 Dose: 400 mg Quetiapine Fumarate (Quetiapine Fumarate 200 Mg Tablet) 200 mg PO Q2H PRN PRN Reason: insomnia Last Admin: 12/30/21 22:30 Dose: 200 mg Simethicone (Simethicone 80 Mg Tab.Chew) 80 mg PO QIDWMHS PRN PRN Reason: flatulence Last Admin: 12/20/21 22:49 Dose: 80 mg Tamsulosin HCl (Tamsulosin Hcl 0.4 Mg Capsule) 0.4 mg PO BEDTIME DAVY Last Admin: 01/04/22 22:52 Dose: 0.4 mg Trazodone HCl (Trazodone Hcl 50 Mg Tablet) 150 mg PO BEDTIME DAVY Last Admin: 01/04/22 22:52 Dose: 150 mg Trazodone HCl (Trazodone Hcl 50 Mg Tablet) 50 mg PO BEDTIME PRN PRN Reason: Insomnia Last Admin: 01/02/22 22:54 Dose: 50 mg Vitamin E (Vitamin E (Dl,Tocopheryl Acet) 180 Mg (400 Unit) Capsule) 180 mg PO BID DAVY Last Admin: 01/05/22 10:01 Dose: 180 mg Allergies Allergies Allergy/AdvReac Type Severity Reaction Status Date / Time divalproex sodium Allergy Severe PANCREATITI Verified 11/24/21 14:34 [From DEPAKOTE] S haloperidol [From Haldol] Allergy Intermediate DYSTONIC Verified 11/24/21 14:34 REACTION Assessment & Plan Assessment & Plan (1) Schizoaffective disorder: Status: Acute Code(s): F25.9 - Schizoaffective disorder, unspecified (2) Cellulitis: Status: Acute Code(s): L03.90 - Cellulitis, unspecified Assessment and Plan: 51yo M with COPD, HLD, obesity, BPH, ex-smoker, bipolar-type schizoaffective disorder admitted to [facility]. Developed infection of R foot yesterday as well as symptomatic Covid-19 infection without hypoxia. # nonpurulent cellulitis - doxycycline x7d. no need for blood culture. monitor clinically for improvement. (3) COVID-19: Status: Acute Code(s): U07.1 - COVID-19 Assessment and Plan: 51yo M with COPD, HLD, obesity, BPH, ex-smoker, bipolar-type schizoaffective dis order admitted to [facility]. Developed infection of R foot yesterday as well as symptomatic Covid-19 infection without hypoxia. # Covid-19 infection - not hypoxic; no steroids indicated. Paxlovid contraindicated by use of carbamezapine. can give 3 days of IV remdesivir as alternative. Monitor SaO2 qshift. beginning 12/20/21, isolation x5d then mask-wearing x5d Plan 12/03: continue home meds for now. CV rejected as pt unable to appreciate the circumstances of his admission. will need commitment and benedicto's order. T/C restarting clozaril and lithium, on which pt did well for many years, reportedly. tegretol increased from 400 BID to 600 BID at admission. 12/04: klonopin 0.5/0.5/1 reinstated 12/04 (outpt provider had started it 11/25 at 1 mg TID). magic mouthwash started for oral ulcers. 12/05: slept well last night, still pressured and disorganized.? continue current mgmt. 12/08: 12b up, applied for commitment and meds.? making sexually inappropriate comments/suggestions to staff, threatening violence and toward male peer. 12/09: same presentation as yesterday.? started lithium 450 mg BID today. 12/10: no change in presentation, compliant with lithium. 12/11: DC prazosin to see if B/L pedal edema decreases.? DC pravachol as pt is refusing it.? order lac-hydrin for plantar fissure.? otherwise continue previous mgmt.? perhaps slight decrease in pressure and disorganization. 12/12: pedal edema no worse, perhaps better.? no GI side effects from lithium.? fissure looks improved with cream.? check lithium, tegretol, associated labs on wednesday (ordered).? titrate lithium as indicated. 12/13 pt manic, disorganized, intrusive, blaming, threatening (told ad copy writer someone would come over and break his neck) -consider switching to Zyprexa from seroquel 12/14 her is manic, intrusive irritable, grandiose Sublette level subtherapeutic; however patient is very anxious about this medication causing side effects and at this time ad copy writer thinks it might be better to leave it is current dose since patient continues to take it and trying to increase it may very well cause him to refuse it altogether; he is also on Tegretol.? Perhaps switching antipsychotics to Zyprexa is warranted.? Patient says he has never taken Zyprexa before.? Patient typically knows his medication history however usually when someone gets on clozapine it is because most other medications have not worked.? Sublette has just reached at steady state so will hold off making medication adjustments right now to see if there can be any further benefit observed from currently lithium dose and medication regimen. 12/15 no change; clonazepam at started off and was not restarted.? Patient did take p.o. laxatives and had a bowel movement says he feels better. 12/16:? increase tegretol from 600 BID to 600/800 tonight, as level around 7.? lithium sub-therapeutic but pt resistant to increase, will see how much better he can get on higher tegretol dosing.? T/C switching anti-psychotic to zyprexa, as pt has done well on clozaril in the past.? TEDs obtained for pedal edema. 12/17: no change in mgmt.? presentation not substantially changed.? some agitation today. 12/18: presentation essentially unchanged.? no agitation today, sleeping late morning. 12/19: Assessed for pedal edema, spoke with hospitalist, BNP, BMP wnl, venous doppler wnl. Per hospitalist, continue with TEDs, may consider low dose lasix. 12/20: stable presentation.? continue current mgmt.? check tegretol level about a week after dose increase.? trending more calm than earlier in his stay but remains very psychotic.? T/C trial of olanzapine. 12/21:? taper and DC lithium and it appears to be having unsustainable physical side effects (B/L LE edema, now possibly with cellulitis).? also tested COVID P OS today, satting mid 902 on RA.? hospitalist consult placed for eval of COVID severity and R/O cellulitis.? T/C olanzapine trial once lithium has been DCed. 12/22: stable, appears medically better than yesterday. continue lithium taper, to 150 BID tonight and tomorrow morning. start ibuprofen for better pain control with COVID. continue antibiotic and antiviral. 12/24 continue current tx. O2 sat >93, no s/s of respiratory distress. afebrile. 12/25: course of remdesivir complete, doxy ongoing. rash has not spread, likely related to edema and dependent limbs. less purpuric and more pinpoint red with bruising. edema improved. c/o productive cough, expectorant Rx'ed. otherwise continue current mgmt. per CDC guidelines, persons with moderate COVID (which includes having oxygen saturation less than 94%) should isolate for 10 days. 12/26: stable, in quarantine day #6 of 10. continue current mgmt. check labs on wednesday morning. 12/27: Continue current regimen and plans. Continue quarantine. 12/28: Continue current plans and regimen 10/24: increasingly disorganized and hyperverbal since DC of lithium. B/L pedal edema dose seem to be improving. day #9 of quarantine. tegretol level 8, other labs unremarkable aside from anemia. 12/30: obsessively scrubbing floor overnight, up all NOC. sleeping during day. more disorganized, hyperverbal. DC seroquel and start olanzapine 30 mg QHS. seroquel 200 mg PRNs for insomnia. 12/31: c/o persisting edema. perhaps lithium is not the largest offender; the only other change has been increasing tegretol dosing (edema identified as a side effect only in post-marketing, frequency not provided by [facility]). lasix 20 mg one time tomorrow morning. otherwise continue current mgmt. slept well last night with zyprexa at HS. 01/01: slept 3 hours overnight. give lasix 40 mg daily x 3 days as 20 mg dose this morning was not effective. pedal edema remains below the ankle. continue current mgmt otherwise. 01/02: continues to have only several hours of sleep at night. reports good diuresis on lasix 40. continue to monitor pedal edema and efficacy of olanzapine + tegretol (and perphenazine) regimen. 01/03 continue current plan. 01/04 continue tx. 01/05: no change to Tx plan. I spent __25____ minutes with the patient and/or on the patient floor today, greater than?50% of which was spent counseling/coordinating care. Reason for contiued inpatient stay Substantial Risk for: inability to function and rapid decompensation
[2022-01-05 23:13] VITALS: BP 124/95; PULSE 83; RESP 16; TEMP 36.4; O2SAT 96
[2022-01-05] MEDS: Tamsulosin HCL 0.4 MG CAPSULE PO (23:19)
[2022-01-05] MEDS: Prazosin HCL 1 MG CAPSULE 2 MG PO (23:19)
[2022-01-05] MEDS: OLANZapine ODT 10 MG TAB.RAPDIS 30 MG TRANSLINGU (23:20)
[2022-01-05] MEDS: traZODone HCL 50 MG TABLET 150 MG PO (23:24)
[2022-01-05] MEDS: Albuterol Sulfate 90 MCG 8 GM INHALER 2 PUFF INHALE (23:33)
[2022-01-06] MEDS: Nicotine Polacrilex 2 MG GUM 4 MG BUCCAL ×10 (02:42→20:02)
[2022-01-06] MEDS: Ibuprofen 600 MG TABLET PO ×2 (06:15→14:38)
[2022-01-06] MEDS: hydrOXYzine HCL 50 MG TABLET PO (06:15)
[2022-01-06] MEDS: OLANZapine 5 MG TABLET PO (06:15)
[2022-01-06 08:04] VITALS: BP 144/73; PULSE 64; RESP 17; TEMP 36.2; O2SAT 99
[2022-01-06] MEDS: Vitamin E (Dl,Tocopheryl Acet) 180 MG (400 UNIT) CAPSULE PO ×2 (08:05→21:17)
[2022-01-06] MEDS: carBAMazepine ER 200 MG TAB.ER.12H 800 MG PO ×2 (08:06→21:15)
[2022-01-06] MEDS: Perphenazine 8 MG TABLET 16 MG PO ×3 (08:06→21:17)
[2022-01-06] MEDS: Ascorbic Acid 250 MG TABLET PO (08:06)
[2022-01-06] MEDS: Famotidine 20 MG TABLET PO ×2 (08:06→21:17)
[2022-01-06] MEDS: Ammonium Lactate 12 % Lotion 226 GM BOTTLE 1 APPL TOPICAL (08:07)
[2022-01-06] MEDS: Fluticasone/Vilanterol 100/25 BLST.W.DEV 1 PUFF INHALE (08:07)
[2022-01-06] MEDS: clonazePAM 1 MG TABLET PO ×3 (08:07→21:16)
[2022-01-06] MEDS: Furosemide 20 MG TABLET PO (11:07)
--- NOTE | 2022-01-06 12:23 | HO.PSYCHPN ---
Subjective Subjective Date of Service: 01/06/22 Reason For Visit: psychosis Interim History: calm, cooperative. not pressured, more organized than prior. appears improved. agreeable to increase HS zyprexa to 40 mg and to restart lasix 20 mg daily. no complaints or requests. per staff, visible. reading in his room. hyperverbal, disorganized. slept much of the the day yesterday. went to bed at 11, slept well. 1+ pitting edema in legs B/L. Mental Status Exam Mental Status Exam Narrative: up and about the unit, dressed in [facility]. behavior is cooperative; adequate hygiene; affect normo-intense, non-labile; Speech incr rate, nml amount, nml loudness. nml prosody, nml latency; thought process continues more organized. delusional. no SI/HI/AVH expressed. Patients insight and judgment are impaired. Diagnostics Vital Signs (24Hr): Vital Signs - 24 hr 01/05/22 23:13 01/06/22 08:04 Temperature 97.6 F 97.1 F Pulse Rate 83 64 Respiratory Rate 16 17 Blood Pressure 124/95 H 144/73 H Pulse Oximetry 96 99 Oxygen Delivery Method Room Air Room Air BMI result Body Mass Index 31.4 Labs Results: 12/29/21 08:55 12/29/21 08:55 Imaging Radiology Impressions: ITS Impressions Venous Duplex 12/19/21 20:16 IMPRESSION: No DVT demonstrated in the bilateral lower extremity. Medications Medications Current Medications Acetaminophen (Acetaminophen 325 Mg Tablet) 650 mg PO Q6H PRN PRN Reason: Headache/Pain Mild Scale (1-3) Last Admin: 12/30/21 18:04 Dose: 650 mg Al Hydroxide/Mg Hydroxide (Magnesium Hydrox/Alum Hydrox 30 Ml Oral.Susp) 30 ml PO Q6H PRN PRN Reason: Heartburn/Nausea Last Admin: 12/31/21 00:09 Dose: 30 ml Albuterol Sulfate (Albuterol Sulfate 90 Mcg 8 Gm Inhaler) 2 puff INHALE Q4H PRN PRN Reason: shortness of breath or wheezing Last Admin: 01/05/22 23:33 Dose: 2 puff Artificial Tears (Artificial Tears 15 Ml Drops) 2 drop EYE-BOTH Q4H PRN PRN Reason: Dry Eyes Last Admin: 01/05/22 23:36 Dose: 2 drop Ascorbic Acid (Ascorbic Acid 250 Mg Tablet) 250 mg PO DAILY ADVY Last Admin: 01/06/22 08:06 Dose: 250 mg Benzocaine (Throat Lozenge, Medicated Lozenge) 1 lozenge MUCOUS MEM Q1H PRN PRN Reason: Sore Throat Last Admin: 12/27/21 06:54 Dose: 1 lozenge Bisacodyl (Bisacodyl 10 Mg Supp.Rect) 10 mg OR BEDTIME PRN PRN Reason: Constipation Last Admin: 12/06/21 21:14 Dose: 10 mg Carbamazepine (Carbamazepine Er 200 Mg Tab.Er.12h) 800 mg PO BEDTIME DAVY Last Admin: 01/05/22 23:22 Dose: 800 mg Carbamazepine (Carbamazepine Er 200 Mg Tab.Er.12h) 800 mg PO DAILY DAVY Last Admin: 01/06/22 08:06 Dose: 800 mg Clonazepam (Clonazepam 1 Mg Tablet) 1 mg PO TID DAVY Last Admin: 01/06/22 08:07 Dose: 1 mg Famotidine (Famotidine 20 Mg Tablet) 20 mg PO BID DAVY Last Admin: 01/06/22 08:06 Dose: 20 mg Fluticasone/Vilanterol (Fluticasone/Vilanterol 100/25 Blst.W.Dev) 1 puff INHALE DAILY [facility] Last Admin: 01/06/22 08:07 Dose: 1 puff Furosemide (Furosemide 20 Mg Tablet) 20 mg PO DAILY DAVY; Protocol Last Admin: 01/06/22 11:07 Dose: 20 mg Guaifenesin (Guaifenesin La 600 Mg Tab.Er.12h) 600 mg PO BID PRN PRN Reason: thick secretions Last Admin: 01/03/22 23:25 Dose: 600 mg Hydroxyzine HCl (Hydroxyzine Hcl 50 Mg Tablet) 50 mg PO Q6H PRN PRN Reason: Anxiety Last Admin: 01/06/22 06:15 Dose: 50 mg Ibuprofen (Ibuprofen 600 Mg Tablet) 600 mg PO Q6H PRN PRN Reason: aches and pains Last Admin: 01/06/22 06:15 Dose: 600 mg Lactic Acid (Ammonium Lactate 12 % Lotion 226 Gm Bottle) 1 appl TOPICAL BID DAVY; Protocol Last Admin: 01/06/22 08:07 Dose: 1 appl Lidocaine/Diphenhydr/Alum/Mg/Simeth (Mag&Al/Sim/Diphenhyd/Lidocaine 10 Ml Oral.Susp) 10 ml PO Q4H PRN; Protocol PRN Reason: oral mucous membrane ulcer jeremiah Last Admin: 12/20/21 02:20 Dose: 10 ml Magnesium Hydroxide (Milk Of Magnesia 30 Ml Oral.Susp) 30 ml PO DAILY PRN PRN Reason: Constipation Last Admin: 01/04/22 14:27 Dose: 30 ml Nicotine Polacrilex (Nicotine Polacrilex 2 Mg Gum) 4 mg BUCCAL Q1H PRN PRN Reason: Nicotine Cravings Last Admin: 01/06/22 11:08 Dose: 4 mg Olanzapine (Olanzapine Odt 10 Mg Tab.Rapdis) 40 mg TRANSLINGU BEDTIME DAVY Perphenazine (Perphenazine 8 Mg Tablet) 16 mg PO TID DAVY Last Admin: 01/06/22 08:06 Dose: 16 mg Prazosin HCl (Prazosin Hcl 1 Mg Capsule) 2 mg PO BEDTIME DAVY; Protocol Last Admin: 01/05/22 23:19 Dose: 2 mg Psyllium Hydrophilic Mucilloid (Psyllium Seed 3.4 Gm Powd.Pack) 3.4 gm PO BID DAVY Last Admin: 01/06/22 08:05 Dose: 3.4 gm Quetiapine Fumarate (Quetiapine Fumarate 200 Mg Tablet) 200 mg PO BID@0900,1400 DAVY Last Admin: 12/30/21 14:22 Dose: 200 mg Quetiapine Fumarate (Quetiapine Fumarate 400 Mg Tablet) 400 mg PO BEDTIME DAVY Last Admin: 12/29/21 20:59 Dose: 400 mg Quetiapine Fumarate (Quetiapine Fumarate 200 Mg Tablet) 200 mg PO Q2H PRN PRN Reason: insomnia Last Admin: 12/30/21 22:30 Dose: 200 mg Simethicone (Simethicone 80 Mg Tab.Chew) 80 mg PO QIDWMHS PRN PRN Reason: flatulence Last Admin: 12/20/21 22:49 Dose: 80 mg Tamsulosin HCl (Tamsulosin Hcl 0.4 Mg Capsule) 0.4 mg PO BEDTIME DAVY Last Admin: 01/05/22 23:19 Dose: 0.4 mg Trazodone HCl (Trazodone Hcl 50 Mg Tablet) 150 mg PO BEDTIME DAVY Last Admin: 01/05/22 23:24 Dose: 150 mg Trazodone HCl (Trazodone Hcl 50 Mg Tablet) 50 mg PO BEDTIME PRN PRN Reason: Insomnia Last Admin: 01/02/22 22:54 Dose: 50 mg Vitamin E (Vitamin E (Dl,Tocopheryl Acet) 180 Mg (400 Unit) Capsule) 180 mg PO BID DAVY Last Admin: 01/06/22 08:05 Dose: 180 mg Allergies Allergies Allergy/AdvReac Type Severity Reaction Status Date / Time divalproex sodium Allergy Severe PANCREATITI Verified 11/24/21 14:34 [From DEPAKOTE] S haloperidol [From Haldol] Allergy Intermediate DYSTONIC Verified 11/24/21 14:34 REACTION Assessment & Plan Assessment & Plan (1) Schizoaffective disorder: Status: Acute Code(s): F25.9 - Schizoaffective disorder, unspecified (2) Cellulitis: Status: Acute Code(s): L03.90 - Cellulitis, unspecified Assessment and Plan: 51yo M with COPD, HLD, obesity, BPH, ex-smoker, bipolar-type schizoaffective disorder admitted to [facility]. Developed infection of R foot yesterday as well as symptomatic Covid-19 infection without hypoxia. # nonpurulent cellulitis - doxycycline x7d. no need for blood culture. monitor clinically for improvement. (3) COVID-19: Status: Acute Code(s): U07.1 - COVID-19 Assessment and Plan: 51yo M with COPD, HLD, obesity, BPH, ex-smoker, bipolar-type schizoaffective disorder admitted to [facility]. Developed infection of R foot yesterday as well as symptomatic Covid-19 infection without hypoxia. # Covid-19 infection - not hypoxic; no steroids indicated. Paxlovid contraindicated by use of carbamezapine. can give 3 days of IV remdesivir as alternative. Monitor SaO2 qshift. beginning 12/20/21, isolation x5d then mask-wearing x5d Plan 12/03: continue home meds for now. CV rejected as pt unable to appreciate the circumstances of his admission. will need commitment and benedicto's order. T/C restarting clozaril and lithium, on which pt did well for many years, reportedly. tegretol increased from 400 BID to 600 BID at admission. 12/04: klonopin 0.5/0.5/1 reinstated 12/04 (outpt provider had started it 11/25 at 1 mg TID). magic mouthwash started for oral ulcers. 12/05: slept well last night, still pressured and disorganized.? continue current mgmt. 12/08: 12b up, applied for commitment and meds.? making sexually inappropriate comments/suggestions to staff, threatening violence and toward male peer. 12/09: same presentation as yesterday.? started lithium 450 mg BID today. 12/10: no change in presentation, compliant with lithium. 12/11: DC prazosin to see if B/L pedal edema decreases.? DC pravachol as pt is refusing it.? order lac-hydrin for plantar fissure.? otherwise continue previous mgmt.? perhaps slight decrease in pressure and disorganization. 12/12: pedal edema no worse, perhaps better.? no GI side effects from lithium.? fissure looks improved with cream.? check lithium, tegretol, associated labs on wednesday (ordered).? titrate lithium as indicated. 12/13 pt manic, disorganized, intrusive, blaming, threatening (told signwriter someone would come over and break his neck) -consider switching to Zyprexa from seroquel 12/14 her is manic, intrusive irritable, grandiose [place] level subtherapeutic; however patient is very anxious about this medication causing side effects and at this time signwriter thinks it might be better to leave it is current dose since patient continues to take it and trying to increase it may very well cause him to refuse it altogether; he is also on Tegretol.? Perhaps switching antipsychotics to Zyprexa is warranted.? Patient says he has never taken Zyprexa before.? Patient typically knows his medication history however usually when someone gets on clozapine it is because most other medications have not worked.? [place] has just reached at steady state so will hold off making medication adjustments right now to see if there can be any further benefit observed from currently lithium dose and medication regimen. 12/15 no change; clonazepam at started off and was not restarted.? Patient did take p.o. laxatives and had a bowel movement says he feels better. 12/16:? increase tegretol from 600 BID to 600/800 tonight, as level around 7.? lithium sub-therapeutic but pt resistant to increase, will see how much better he can get on higher tegretol dosing.? T/C switching anti-psychotic to zyprexa, as pt has done well on clozaril in the past.? TEDs obtained for pedal edema. 12/17: no change in mgmt.? presentation not substantially changed.? some agitation today. 12/18: presentation essentially unchanged.? no agitation today, sleeping late morning. 12/19: Assessed for pedal edema, spoke with hospitalist, BNP, BMP wnl, venous doppler wnl. Per hospitalist, continue with TEDs, may consider low dose lasix. 12/20: stable presentation.? continue current mgmt.? check tegretol level about a week after dose increase.? trending more calm than earlier in his stay but remains very psychotic.? T/C trial of olanzapine. 12/21:? taper and DC lithium and it appears to be having unsustainable physical side effects (B/L LE edema, now possibly with cellulitis).? also tested COVID POS today, satting mid 902 on RA.? hospitalist consult placed for eval of COVID severity and R/O cellulitis.? T/C olanzapine trial once lithium has been DCed. 12/22: stable, appears medically better than yesterday. continue lithium taper, to 150 BID tonight and tomorrow morning. start ibuprofen for better pain control with COVID. continue antibiotic and antiviral. 12/24 continue current tx. O2 sat >93, no s/s of respiratory distress. afebrile. 12/25: course of remdesivir complete, doxy ongoing. rash has not spread, likely related to edema and dependent limbs. less purpuric and more pinpoint red with bruising. edema improved. c/o productive cough, expectorant Rx'ed. otherwise continue current mgmt. per CDC guidelines, persons with moderate COVID (which includes having oxygen saturation less than 94%) should isolate for 10 days. 12/26: stable, in quarantine day #6 of . continue current mgmt. check labs on wednesday morning. 12/27: Continue current regimen and plans. Continue quarantine. 12/28: Continue current plans and regimen 12/29: increasingly disorganized and hyperverbal since DC of lithium. B/L pedal edema dose seem to be improving. day #9 of quarantine. tegretol level 8, other labs unremarkable aside from anemia. 12/30: obsessively scrubbing floor overnight, up all NOC. sleeping during day. more disorganized, hyperverbal. DC seroquel and start olanzapine 30 mg QHS. seroquel 200 mg PRNs for insomnia. 12/31: c/o persisting edema. perhaps lithium is not the largest offender; the only other change has been increasing tegretol dosing (edema identified as a side effect only in post-marketing, frequency not provided by [facility]). lasix 20 mg one time tomorrow morning. otherwise continue current mgmt. slept well last night with zyprexa at HS. 01/01: slept 3 hours overnight. give lasix 40 mg daily x 3 days as 20 mg dose this morning was not effective. pedal edema remains below the ankle. continue current mgmt otherwise. 01/02: continues to have only several hours of sleep at night. reports good diuresis on lasix 40. continue to monitor pedal edema and efficacy of olanzapine + tegretol (and perphenazine) regimen. 01/03 continue current plan. 01/04 continue tx. 01/05: no change to Tx plan. 01/06: increase zyprexa to 40 mg at HS, restart lasix 20 mg daily for pedal edema. trending more organized and less pressured, but by no means well. I spent __20____ minutes with the patient and/or on the patient floor today, greater than?50% of which was spent counseling/coordinating care. Reason for contiued inpatient stay Substantial Risk for: inability to function and rapid decompensation
[2022-01-06 21:13] VITALS: BP 109/60; PULSE 70; TEMP 36.3; O2SAT 96
[2022-01-06] MEDS: OLANZapine ODT 10 MG TAB.RAPDIS 40 MG TRANSLINGU (21:16)
[2022-01-06] MEDS: traZODone HCL 50 MG TABLET 150 MG PO (21:16)
[2022-01-06] MEDS: Prazosin HCL 1 MG CAPSULE 2 MG PO (21:17)
[2022-01-06] MEDS: Tamsulosin HCL 0.4 MG CAPSULE PO (21:17)
[2022-01-07] MEDS: Nicotine Polacrilex 2 MG GUM 4 MG BUCCAL ×10 (00:23→18:26)
[2022-01-07] MEDS: Ammonium Lactate 12 % Lotion 226 GM BOTTLE 1 APPL TOPICAL (06:09)
[2022-01-07] MEDS: carBAMazepine ER 200 MG TAB.ER.12H 800 MG PO ×2 (08:50→21:54)
[2022-01-07] MEDS: Furosemide 20 MG TABLET PO (08:51)
[2022-01-07] MEDS: Famotidine 20 MG TABLET PO ×2 (08:51→21:55)
[2022-01-07] MEDS: Perphenazine 8 MG TABLET 16 MG PO ×3 (08:51→21:54)
[2022-01-07] MEDS: Ascorbic Acid 250 MG TABLET PO (08:51)
[2022-01-07] MEDS: clonazePAM 1 MG TABLET PO ×3 (08:51→21:54)
[2022-01-07] MEDS: Fluticasone/Vilanterol 100/25 BLST.W.DEV 1 PUFF INHALE (09:43)
[2022-01-07] MEDS: Albuterol Sulfate 90 MCG 8 GM INHALER 2 PUFF INHALE (09:43)
[2022-01-07] MEDS: Vitamin E (Dl,Tocopheryl Acet) 180 MG (400 UNIT) CAPSULE PO ×2 (09:44→21:54)
[2022-01-07 09:54] VITALS: BP 155/81; PULSE 77; RESP 20; TEMP 36.6; O2SAT 100
--- NOTE | 2022-01-07 13:54 | P.PNPSI_ITS ---
Subjective Subjective Date of Service: 01/07/22 Reason For Visit: psychosis Interim History: pt reports staff member said something mean to his roommate and that is why pt threatened to break staff's neck. he stated he of course wouldn't do that and doesn't even know how. otherwise states he feels reasonably well. feet remain edematous but he is elevating at HS and wearing stockings during the day. states his sister told him he may be ready to return home by next week. per staff, expressed paranoia that someone spat in his food so didn't eat the meal. talkative, intrusive. i'll break your fucking neck to counselor. slept 12:30 to 04:30. Mental Status Exam Mental Status Exam Narrative: up and about the unit, dressed in [facility]. behavior is cooperative; adequate hygiene; affect normo-intense, non-labile; Speech incr rate, nml amount, nml loudness. nml prosody, nml latency; thought process continues more organized. delusional. no SI/HI/AVH expressed. Patients insight and judgment are impaired. Diagnostics Vital Signs (24Hr): Vital Signs - 24 hr 01/06/22 21:13 01/07/22 09:54 Temperature 97.4 F 97.9 F Pulse Rate 70 77 Respiratory Rate 20 Blood Pressure 109/60 155/81 H Pulse Oximetry 96 100 Oxygen Delivery Method Room Air Room Air BMI result Body Mass Index 31.4 Labs Results: 12/29/21 08:55 12/29/21 08:55 Imaging Radiology Impressions: ITS Impressions Venous Duplex 12/19/21 20:16 IMPRESSION: No DVT demonstrated in the bilateral lower extremity. Medications Medications Current Medications Acetaminophen (Acetaminophen 325 Mg Tablet) 650 mg PO Q6H PRN PRN Reason: Headache/Pain Mild Scale (1-3) Last Admin: 12/30/21 18:04 Dose: 650 mg Al Hydroxide/Mg Hydroxide (Magnesium Hydrox/Alum Hydrox 30 Ml Oral.Susp) 30 ml PO Q6H PRN PRN Reason: Heartburn/Nausea Last Admin: 12/31/21 00:09 Dose: 30 ml Albuterol Sulfate (Albuterol Sulfate 90 Mcg 8 Gm Inhaler) 2 puff INHALE Q4H PRN PRN Reason: shortness of breath or wheezing Last Admin: 01/07/22 09:43 Dose: 2 puff Artificial Tears (Artificial Tears 15 Ml Drops) 2 drop EYE-BOTH Q4H PRN PRN Reason: Dry Eyes Last Admin: 01/05/22 23:36 Dose: 2 drop Ascorbic Acid (Ascorbic Acid 250 Mg Tablet) 250 mg PO DAILY COUNT INCLUDES THE [facility] Last Admin: 01/07/22 08:51 Dose: 250 mg Benzocaine (Throat Lozenge, Medicated Lozenge) 1 lozenge MUCOUS MEM Q1H PRN PRN Reason: Sore Throat Last Admin: 12/27/21 06:54 Dose: 1 lozenge Bisacodyl (Bisacodyl 10 Mg Supp.Rect) 10 mg AK BEDTIME PRN PRN Reason: Constipation Last Admin: 12/06/21 21:14 Dose: 10 mg Carbamazepine (Carbamazepine Er 200 Mg Tab.Er.12h) 800 mg PO BEDTIME DAVY Last Admin: 01/06/22 21:15 Dose: 800 mg Carbamazepine (Carbamazepine Er 200 Mg Tab.Er.12h) 800 mg PO DAILY COUNT INCLUDES THE [facility] Last Admin: 01/07/22 08:50 Dose: 800 mg Clonazepam (Clonazepam 1 Mg Tablet) 1 mg PO TID COUNT INCLUDES THE [facility] Last Admin: 01/07/22 08:51 Dose: 1 mg Famotidine (Famotidine 20 Mg Tablet) 20 mg PO BID COUNT INCLUDES THE [facility] Last Admin: 01/07/22 08:51 Dose: 20 mg Fluticasone/Vilanterol (Fluticasone/Vilanterol 100/25 Blst.W.Dev) 1 puff INHALE DAILY COUNT INCLUDES THE [facility] Last Admin: 01/07/22 09:43 Dose: 1 puff Furosemide (Furosemide 20 Mg Tablet) 20 mg PO DAILY COUNT INCLUDES THE [facility]; Protocol Last Admin: 01/07/22 08:51 Dose: 20 mg Guaifenesin (Guaifenesin La 600 Mg Tab.Er.12h) 600 mg PO BID PRN PRN Reason: thick secretions Last Admin: 01/03/22 23:25 Dose: 600 mg Hydroxyzine HCl (Hydroxyzine Hcl 50 Mg Tablet) 50 mg PO Q6H PRN PRN Reason: Anxiety Last Admin: 01/06/22 06:15 Dose: 50 mg Ibuprofen (Ibuprofen 600 Mg Tablet) 600 mg PO Q6H PRN PRN Reason: aches and pains Last Admin: 01/06/22 14:38 Dose: 600 mg Lactic Acid (Ammonium Lactate 12 % Lotion 226 Gm Bottle) 1 appl TOPICAL BID DAVY; Protocol Last Admin: 01/07/22 06:09 Dose: 1 appl Lidocaine/Diphenhydr/Alum/Mg/Simeth (Mag&Al/Sim/Diphenhyd/Lidocaine 10 Ml Oral.Susp) 10 ml PO Q4H PRN; Protocol PRN Reason: oral mucous membrane ulcer jeremiah Last Admin: 12/20/21 02:20 Dose: 10 ml Magnesium Hydroxide (Milk Of Magnesia 30 Ml Oral.Susp) 30 ml PO DAILY PRN PRN Reason: Constipation Last Admin: 01/04/22 14:27 Dose: 30 ml Nicotine Polacrilex (Nicotine Polacrilex 2 Mg Gum) 4 mg BUCCAL Q1H PRN PRN Reason: Nicotine Cravings Last Admin: 01/07/22 11:57 Dose: 4 mg Olanzapine (Olanzapine Odt 10 Mg Tab.Rapdis) 40 mg TRANSLINGU BEDTIME DAVY Last Admin: 01/06/22 21:16 Dose: 40 mg Perphenazine (Perphenazine 8 Mg Tablet) 16 mg PO TID DAVY Last Admin: 01/07/22 08:51 Dose: 16 mg Prazosin HCl (Prazosin Hcl 1 Mg Capsule) 2 mg PO BEDTIME DAVY; Protocol Last Admin: 01/06/22 21:17 Dose: 2 mg Psyllium Hydrophilic Mucilloid (Psyllium Seed 3.4 Gm Powd.Pack) 3.4 gm PO BID DAVY Last Admin: 01/07/22 08:50 Dose: 3.4 gm Quetiapine Fumarate (Quetiapine Fumarate 200 Mg Tablet) 200 mg PO BID@0900,1400 DAVY Last Admin: 12/30/21 14:22 Dose: 200 mg Quetiapine Fumarate (Quetiapine Fumarate 400 Mg Tablet) 400 mg PO BEDTIME DAVY Last Admin: 12/29/21 20:59 Dose: 400 mg Quetiapine Fumarate (Quetiapine Fumarate 200 Mg Tablet) 200 mg PO Q2H PRN PRN Reason: insomnia/agitation Simethicone (Simethicone 80 Mg Tab.Chew) 80 mg PO QIDWMHS PRN PRN Reason: flatulence Last Admin: 12/20/21 22:49 Dose: 80 mg Tamsulosin HCl (Tamsulosin Hcl 0.4 Mg Capsule) 0.4 mg PO BEDTIME DAVY Last Admin: 01/06/22 21:17 Dose: 0.4 mg Trazodone HCl (Trazodone Hcl 50 Mg Tablet) 150 mg PO BEDTIME DAVY Last Admin: 01/06/22 21:16 Dose: 150 mg Trazodone HCl (Trazodone Hcl 50 Mg Tablet) 50 mg PO BEDTIME PRN PRN Reason: Insomnia Last Admin: 01/02/22 22:54 Dose: 50 mg Vitamin E (Vitamin E (Dl,Tocopheryl Acet) 180 Mg (400 Unit) Capsule) 180 mg PO BID COUNT INCLUDES THE [facility] Last Admin: 01/07/22 09:44 Dose: 180 mg Allergies Allergies Allergy/AdvReac Type Severity Reaction Status Date / Time divalproex sodium Allergy Severe PANCREATITI Verified 11/24/21 14:34 [From DEPAKOTE] S haloperidol [From Haldol] Allergy Intermediate DYSTONIC Verified 11/24/21 14:34 REACTION Assessment & Plan Assessment & Plan (1) Schizoaffective disorder: Status: Acute Code(s): F25.9 - Schizoaffective disorder, unspecified (2) Cellulitis: Status: Acute Code(s): L03.90 - Cellulitis, unspecified Assessment and Plan: 51yo M with COPD, HLD, obesity, BPH, ex-smoker, bipolar-type schizoaffective disorder admitted to [facility]. Developed infection of R foot yesterday as well as symptomatic Covid-19 infection without hypoxia. # nonpurulent cellulitis - doxycycline x7d. no need for blood culture. monitor clinically for improvement. (3) COVID-19: Status: Acute Code(s): U07.1 - COVID-19 Assessment and Plan: 51yo M with COPD, HLD, obesity, BPH, ex-smoker, bipolar-type schizoaffective disorder admitted to [facility]. Developed infection of R foot yesterday as well as symptomatic Covid-19 infection without hypoxia. # Covid-19 infection - not hypoxic; no steroids indicated. Paxlovid contraindicated by use of carbamezapine. can give 3 days of IV remdesivir as alternative. Monitor SaO2 qshift. beginning 12/20/21, isolation x5d then mask-wearing x5d Plan 12/03: continue home meds for now. CV rejected as pt unable to appreciate the circumstances of his admission. will need commitment and benedicto's order. T/C restarting clozaril and lithium, on which pt did well for many years, reportedly. tegretol increased from 400 BID to 600 BID at admission. 12/04: klonopin 0.5/0.5/1 reinstated 12/04 (outpt provider had started it 11/25 at 1 mg TID). magic mouthwash started for oral ulcers. 12/05: slept well last night, still pressured and disorganized.? continue current mgmt. 12/08: 12b up, applied for commitment and meds.? making sexually inappropriate comments/suggestions to staff, threatening violence and toward male peer. 12/09: same presentation as yesterday.? started lithium 450 mg BID today. 12/10: no change in presentation, compliant with lithium. 12/11: DC prazosin to see if B/L pedal edema decreases.? DC pravachol as pt is refusing it.? order lac-hydrin for plantar fissure.? otherwise continue previous mgmt.? perhaps slight decrease in pressure and disorganization. 12/12: pedal edema no worse, perhaps better.? no GI side effects from lithium.? fissure looks improved with cream.? check lithium, tegretol, associated labs on wednesday (ordered).? titrate lithium as indicated. 12/13 pt manic, disorganized, intrusive, blaming, threatening (told technical writer and editor someone would come over and break his neck) -consider switching to Zyprexa from seroquel 12/14 her is manic, intrusive irritable, grandiose [place] level subtherapeutic; however patient is very anxious about this medication causing side effects and at this time technical writer and editor thinks it might be better to leave it is current dose since patient continues to take it and trying to increase it may very well cause him to refuse it altogether; he is also on Tegretol.? Perhaps switching antipsychotics to Zyprexa is warranted.? Patient says he has never taken Zyprexa before.? Patient typically knows his medication history however usually when someone gets on clozapine it is because most other medications have not worked.? [place] has just reached at steady state so will hold off making medication adjustments right now to see if there can be any further benefit observed from currently lithium dose and medication regimen. 12/15 no change; clonazepam at started off and was not restarted.? Patient did take p.o. laxatives and had a bowel movement says he feels better. 12/16:? increase tegretol from 600 BID to 600/800 tonight, as level around 7.? lithium sub-therapeutic but pt resistant to increase, will see how much better he can get on higher tegretol dosing.? T/C switching anti-psychotic to zyprexa, as pt has done well on clozaril in the past.? TEDs obtained for pedal edema. 12/17: no change in mgmt.? presentation not substantially changed.? some agitation today. 12/18: presentation essentially unchanged.? no agitation today, sleeping late morning. 12/19: Assessed for pedal edema, spoke with hospitalist, BNP, BMP wnl, venous doppler wnl. Per hospitalist, continue with TEDs, may consider low dose lasix. 12/20: stable presentation.? continue current mgmt.? check tegretol level about a week after dose increase.? trending more calm than earlier in his stay but remains very psychotic.? T/C trial of olanzapine. 12/21:? taper and DC lithium and it appears to be having unsustainable physical side effects (B/L LE edema, now possibly with cellulitis).? also tested COVID POS today, satting mid 902 on RA.? hospitalist consult placed for eval of COVID severity and R/O cellulitis.? T/C olanzapine trial once lithium has been DCed. 12/22: stable, appears medically better than yesterday. continue lithium taper, to 150 BID tonight and tomorrow morning. start ibuprofen for better pain control with COVID. continue antibiotic and antiviral. 12/24 continue current tx. O2 sat >93, no s/s of respiratory distress. afebrile. 12/25: course of remdesivir complete, doxy ongoing. rash has not spread, likely related to edema and dependent limbs. less purpuric and more pinpoint red with bruising. edema improved. c/o productive cough, expectorant Rx'ed. otherwise continue current mgmt. per CDC guidelines, persons with moderate COVID (which includes having oxygen saturation less than 94%) should isolate for 10 days. 12/26: stable, in quarantine day #6 of . continue current mgmt. check labs on wednesday morning. 12/27: Continue current regimen and plans. Continue quarantine. 12/28: Continue current plans and regimen 12/29: increasingly disorganized and hyperverbal since DC of lithium. B/L pedal edema dose seem to be improving. day #9 of quarantine. tegretol level 8, other labs unremarkable aside from anemia. 12/30: obsessively scrubbing floor overnight, up all NOC. sleeping during day. more disorganized, hyperverbal. DC seroquel and start olanzapine 30 mg QHS. seroquel 200 mg PRNs for insomnia. 12/31: c/o persisting edema. perhaps lithium is not the largest offender; the only other change has been increasing tegretol dosing (edema identified as a sabine e effect only in post-marketing, frequency not provided by update). lasix 20 mg one time tomorrow morning. otherwise continue current mgmt. slept well last night with zyprexa at HS. 01/01: slept 3 hours overnight. give lasix 40 mg daily x 3 days as 20 mg dose this morning was not effective. pedal edema remains below the ankle. continue current mgmt otherwise. 01/02: continues to have only several hours of sleep at night. reports good diuresis on lasix 40. continue to monitor pedal edema and efficacy of olanzapine + tegretol (and perphenazine) regimen. 01/03 continue current plan. 01/04 continue tx. 01/05: no change to Tx plan. 01/06: increase zyprexa to 40 mg at HS, restart lasix 20 mg daily for pedal edema. trending more organized and less pressured, but by no means well. 01/07: continues to appear less pressured and more organized. paranoia persists. I spent ___20___ minutes with the patient and/or on the patient floor today, greater than?50% of which was spent counseling/coordinating care. Reason for contiued inpatient stay Substantial Risk for: inability to function and rapid decompensation
[2022-01-07] MEDS: Ibuprofen 600 MG TABLET PO (15:07)
[2022-01-07] MEDS: hydrOXYzine HCL 50 MG TABLET PO (15:08)
[2022-01-07] MEDS: Magnesium Hydrox/Alum Hydrox 30 ML ORAL.SUSP PO (15:08)
--- NOTE | 2022-01-07 16:47 | PC.NURSE ---
Pt has 2+edema on bilateral lower legs. Skin is dry and intact. Pt c/o pain, using Motrin with good effect. Pt wearing knee high TEDS and elevating feet.
[2022-01-07] MEDS: OLANZapine ODT 10 MG TAB.RAPDIS 40 MG TRANSLINGU (21:54)
[2022-01-07] MEDS: traZODone HCL 50 MG TABLET 150 MG PO (21:54)
[2022-01-07] MEDS: Tamsulosin HCL 0.4 MG CAPSULE PO (21:55)
[2022-01-07] MEDS: Prazosin HCL 1 MG CAPSULE 2 MG PO (21:55)
[2022-01-07 22:03] VITALS: BP 120/60; PULSE 78; TEMP 36.3; O2SAT 96
[2022-01-08] MEDS: Nicotine Polacrilex 2 MG GUM 4 MG BUCCAL ×12 (00:06→22:52)
[2022-01-08] MEDS: Ammonium Lactate 12 % Lotion 226 GM BOTTLE 1 APPL TOPICAL ×3 (01:01→22:39)
[2022-01-08] MEDS: Ibuprofen 600 MG TABLET PO ×2 (04:14→22:44)
[2022-01-08] MEDS: QUEtiapine Fumarate 200 MG TABLET PO ×2 (04:14→22:46)
[2022-01-08] MEDS: hydrOXYzine HCL 50 MG TABLET PO ×3 (04:14→22:39)
[2022-01-08 07:00] VITALS: BMI 30.7
[2022-01-08 08:00] VITALS: BP 146/86; PULSE 74; RESP 16; TEMP 36.9; O2SAT 99
[2022-01-08] MEDS: carBAMazepine ER 200 MG TAB.ER.12H 800 MG PO ×2 (08:36→22:40)
[2022-01-08] MEDS: Vitamin E (Dl,Tocopheryl Acet) 180 MG (400 UNIT) CAPSULE PO ×2 (08:37→22:44)
[2022-01-08] MEDS: Fluticasone/Vilanterol 100/25 BLST.W.DEV 1 PUFF INHALE (08:37)
[2022-01-08] MEDS: Famotidine 20 MG TABLET PO ×2 (08:37→22:44)
[2022-01-08] MEDS: Ascorbic Acid 250 MG TABLET PO (08:37)
[2022-01-08] MEDS: Furosemide 20 MG TABLET PO (08:37)
[2022-01-08] MEDS: Perphenazine 8 MG TABLET 16 MG PO ×3 (08:37→22:46)
[2022-01-08] MEDS: clonazePAM 1 MG TABLET PO ×3 (08:37→22:45)
--- NOTE | 2022-01-08 14:42 | P.PNPSI_ITS ---
Subjective Subjective Date of Service: 01/08/22 Reason For Visit: psychosis Interim History: calm, cooperative. hyperverbal, digressive/bizarre content. seen with RENEE rivera, who is new to the case. discuss pt's edema and BP, pt aware of lasix dose increase and in agreement. no other complaints or requests. discuss upcoming [facility] mtg next wednesday. no other complaints or requests. per staff, visible, groups, social. eating, safe. napping days, slept on and off last night. Mental Status Exam Mental Status Exam Narrative: up and about the unit, dressed in [facility]. behavior is cooperative; adequate hygiene; affect normo-intense, non-labile; Speech incr rate and amou nt, nml loudness. nml prosody, decr latency; thought process more disorganized today. no SI/HI/AVH expressed. Patients insight and judgment are impaired. Diagnostics Vital Signs (24Hr): Vital Signs - 24 hr 01/07/22 22:03 01/08/22 08:00 Temperature 97.4 F 98.4 F Pulse Rate 78 74 Respiratory Rate 16 Blood Pressure 120/60 146/86 H Pulse Oximetry 96 99 Oxygen Delivery Method Room Air Room Air BMI result Body Mass Index 30.7 Labs Results: 12/29/21 08:55 12/29/21 08:55 Imaging Radiology Impressions: ITS Impressions Venous Duplex 12/19/21 20:16 IMPRESSION: No DVT demonstrated in the bilateral lower extremity. Medications Medications Current Medications Acetaminophen (Acetaminophen 325 Mg Tablet) 650 mg PO Q6H PRN PRN Reason: Headache/Pain Mild Scale (1-3) Last Admin: 12/30/21 18:04 Dose: 650 mg Al Hydroxide/Mg Hydroxide (Magnesium Hydrox/Alum Hydrox 30 Ml Oral.Susp) 30 ml PO Q6H PRN PRN Reason: Heartburn/Nausea Last Admin: 01/07/22 15:08 Dose: 30 ml Albuterol Sulfate (Albuterol Sulfate 90 Mcg 8 Gm Inhaler) 2 puff INHALE Q4H PRN PRN Reason: shortness of breath or wheezing Last Admin: 01/07/22 09:43 Dose: 2 puff Artificial Tears (Artificial Tears 15 Ml Drops) 2 drop EYE-BOTH Q4H PRN PRN Reason: Dry Eyes Last Admin: 01/05/22 23:36 Dose: 2 drop Ascorbic Acid (Ascorbic Acid 250 Mg Tablet) 250 mg PO DAILY DAVY Last Admin: 01/08/22 08:37 Dose: 250 mg Benzocaine (Throat Lozenge, Medicated Lozenge) 1 lozenge MUCOUS MEM Q1H PRN PRN Reason: Sore Throat Last Admin: 12/27/21 06:54 Dose: 1 lozenge Bisacodyl (Bisacodyl 10 Mg Supp.Rect) 10 mg OK BEDTIME PRN PRN Reason: Constipation Last Admin: 12/06/21 21:14 Dose: 10 mg Carbamazepine (Carbamazepine Er 200 Mg Tab.Er.12h) 800 mg PO BEDTIME DAVY Last Admin: 01/07/22 21:54 Dose: 800 mg Carbamazepine (Carbamazepine Er 200 Mg Tab.Er.12h) 800 mg PO DAILY [facility] Last Admin: 01/08/22 08:36 Dose: 800 mg Clonazepam (Clonazepam 1 Mg Tablet) 1 mg PO TID DAVY Last Admin: 01/08/22 08:37 Dose: 1 mg Famotidine (Famotidine 20 Mg Tablet) 20 mg PO BID [facility] Last Admin: 01/08/22 08:37 Dose: 20 mg Fluticasone/Vilanterol (Fluticasone/Vilanterol 100/25 Blst.W.Dev) 1 puff INHALE DAILY [facility] Last Admin: 01/08/22 08:37 Dose: 1 puff Furosemide (Furosemide 40 Mg Tablet) 40 mg PO DAILY [facility]; Protocol Guaifenesin (Guaifenesin La 600 Mg Tab.Er.12h) 600 mg PO BID PRN PRN Reason: thick secretions Last Admin: 01/03/22 23:25 Dose: 600 mg Hydroxyzine HCl (Hydroxyzine Hcl 50 Mg Tablet) 50 mg PO Q6H PRN PRN Reason: Anxiety Last Admin: 01/08/22 04:14 Dose: 50 mg Ibuprofen (Ibuprofen 600 Mg Tablet) 600 mg PO Q6H PRN PRN Reason: aches and pains Last Admin: 01/08/22 04:14 Dose: 600 mg Lactic Acid (Ammonium Lactate 12 % Lotion 226 Gm Bottle) 1 appl TOPICAL BID DAVY; Protocol Last Admin: 01/08/22 10:41 Dose: 1 appl Lidocaine/Diphenhydr/Alum/Mg/Simeth (Mag&Al/Sim/Diphenhyd/Lidocaine 10 Ml Oral.Susp) 10 ml PO Q4H PRN; Protocol PRN Reason: oral mucous membrane ulcer jeremiah Last Admin: 12/20/21 02:20 Dose: 10 ml Magnesium Hydroxide (Milk Of Magnesia 30 Ml Oral.Susp) 30 ml PO DAILY PRN PRN Reason: Constipation Last Admin: 01/04/22 14:27 Dose: 30 ml Nicotine Polacrilex (Nicotine Polacrilex 2 Mg Gum) 4 mg BUCCAL Q1H PRN PRN Reason: Nicotine Cravings Last Admin: 01/08/22 14:24 Dose: 4 mg Olanzapine (Olanzapine Odt 10 Mg Tab.Rapdis) 40 mg TRANSLINGU BEDTIME DAVY Last Admin: 01/07/22 21:54 Dose: 40 mg Perphenazine (Perphenazine 8 Mg Tablet) 16 mg PO TID DAVY Last Admin: 01/08/22 08:37 Dose: 16 mg Prazosin HCl (Prazosin Hcl 1 Mg Capsule) 2 mg PO BEDTIME DAVY; Protocol Last Admin: 01/07/22 21:55 Dose: 2 mg Psyllium Hydrophilic Mucilloid (Psyllium Seed 3.4 Gm Powd.Pack) 3.4 gm PO BID DAVY Last Admin: 01/08/22 08:37 Dose: 3.4 gm Quetiapine Fumarate (Quetiapine Fumarate 200 Mg Tablet) 200 mg PO BID@0900,1400 DAVY Last Admin: 12/30/21 14:22 Dose: 200 mg Quetiapine Fumarate (Quetiapine Fumarate 400 Mg Tablet) 400 mg PO BEDTIME DAVY Last Admin: 12/29/21 20:59 Dose: 400 mg Quetiapine Fumarate (Quetiapine Fumarate 200 Mg Tablet) 200 mg PO Q2H PRN PRN Reason: insomnia/agitation Last Admin: 01/08/22 04:14 Dose: 200 mg Simethicone (Simethicone 80 Mg Tab.Chew) 80 mg PO QIDWMHS PRN PRN Reason: flatulence Last Admin: 12/20/21 22:49 Dose: 80 mg Tamsulosin HCl (Tamsulosin Hcl 0.4 Mg Capsule) 0.4 mg PO BEDTIME DAVY Last Admin: 01/07/22 21:55 Dose: 0.4 mg Trazodone HCl (Trazodone Hcl 50 Mg Tablet) 150 mg PO BEDTIME DAVY Last Admin: 01/07/22 21:54 Dose: 150 mg Trazodone HCl (Trazodone Hcl 50 Mg Tablet) 50 mg PO BEDTIME PRN PRN Reason: Insomnia Last Admin: 01/02/22 22:54 Dose: 50 mg Vitamin E (Vitamin E (Dl,Tocopheryl Acet) 180 Mg (400 Unit) Capsule) 180 mg PO BID DAVY Last Admin: 01/08/22 08:37 Dose: 180 mg Allergies Allergies Allergy/AdvReac Type Severity Reaction Status Date / Time divalproex sodium Allergy Severe PANCREATITI Verified 11/24/21 14:34 [From DEPAKOTE] S haloperidol [From Haldol] Allergy Intermediate DYSTONIC Verified 11/24/21 14:34 REACTION Assessment & Plan Assessment & Plan (1) Schizoaffective disorder: Status: Acute Code(s): F25.9 - Schizoaffective disorder, unspecified (2) Cellulitis: Status: Acute Code(s): L03.90 - Cellulitis, unspecified Assessment and Plan: 51yo M with COPD, HLD, obesity, BPH, ex-smoker, bipolar-type schizoaffective disorder admitted to [facility]. Developed infection of R foot yesterday as well as symptomatic Covid-19 infection without hypoxia. # nonpurulent cellulitis - doxycycline x7d. no need for blood culture. monitor clinically for improvement. (3) COVID-19: Status: Acute Code(s): U07.1 - COVID-19 Assessment and Plan: 51yo M with COPD, HLD, obesity, BPH, ex-smoker, bipolar-type schizoaffective disorder admitted to [facility]. Developed infection of R foot yesterday as well as symptomatic Covid-19 infection without hypoxia. # Covid-19 infection - not hypoxic; no steroids indicated. Paxlovid contraindicated by use of carbamezapine. can give 3 days of IV remdesivir as alternative. Monitor SaO2 qshift. beginning 12/20/21, isolation x5d then mask-wearing x5d Plan 12/03: continue home meds for now. CV rejected as pt unable to appreciate the circumstances of his admission. will need commitment and benedicto's order. T/C restarting clozaril and lithium, on which pt did well for many years, reportedly. tegretol increased from 400 BID to 600 BID at admission. 12/04: klonopin 0.5/0.5/1 reinstated 12/04 (outpt provider had started it 11/25 at 1 mg TID). magic mouthwash started for oral ulcers. 12/05: slept well last night, still pressured and disorganized.? continue current mgmt. 12/08: 12b up, applied for commitment and meds.? making sexually inappropriate comments/suggestions to staff, threatening violence and toward male peer. 12/09: same presentation as yesterday.? started lithium 450 mg BID today. 12/10: no change in presentation, compliant with lithium. 12/11: DC prazosin to see if B/L pedal edema decreases.? DC pravachol as pt is refusing it.? order lac-hydrin for plantar fissure.? otherwise continue previous mgmt.? perhaps slight decrease in pressure and disorganization. 12/12: pedal edema no worse, perhaps better.? no GI side effects from lithium.? fissure looks improved with cream.? check lithium, tegretol, associated labs on wednesday (ordered).? titrate lithium as indicated. 12/13 pt manic, disorganized, intrusive, blaming, threatening (told commercial lines underwriter someone would come over and break his neck) -consider switching to Zyprexa from seroquel 12/14 her is manic, intrusive irritable, grandiose [place] level subtherapeutic; however patient is very anxious about this medication causing side effects and at this time commercial lines underwriter thinks it might be better to leave it is current dose since patient continues to take it and trying to increase it may very well cause him to refuse it altogether; he is also on Tegretol.? Perhaps switching antipsychotics to Zyprexa is warranted.? Patient says he has never taken Zyprexa before.? Patient typically knows his medication history however usually when someone gets on clozapine it is because most other medications have not worked.? [place] has just reached at steady state so will hold off making medication adjustments right now to see if there can be any further benefit observed from currently lithium dose and medication regimen. 12/15 no change; clonazepam at started off and was not restarted.? Patient did take p.o. laxatives and had a bowel movement says he feels better. 12/16:? increase tegretol from 600 BID to 600/800 tonight, as level around 7.? lithium sub-therapeutic but pt resistant to increase, will see how much better he can get on higher tegretol dosing.? T/C switching anti-psychotic to zyprexa, as pt has done well on clozaril in the past.? TEDs obtained for pedal edema. 12/17: no change in mgmt.? presentation not substantially changed.? some agitation today. 12/18: presentation essentially unchanged.? no agitation today, sleeping late morning. 12/19: Assessed for pedal edema, spoke with hospitalist, BNP, BMP wnl, venous doppler wnl. Per hospitalist, continue with TEDs, may consider low dose lasix. 12/20: stable presentation.? continue current mgmt.? check tegretol level about a week after dose increase.? trending more calm than earlier in his stay but remains very psychotic.? T/C trial of olanzapine. 12/21:? taper and DC lithium and it appears to be having unsustainable physical side effects (B/L LE edema, now possibly with cellulitis).? also tested COVID POS today, satting mid 902 on RA.? hospitalist consult placed for eval of COVID severity and R/O cellulitis.? T/C olanzapine trial once lithium has been DCed. 12/22: stable, appears medically better than yesterday. continue lithium taper, to 150 BID tonight and tomorrow morning. start ibuprofen for better pain control with COVID. continue antibiotic and antiviral. 12/24 continue current tx. O2 sat >93, no s/s of respiratory distress. afebrile. 12/25: course of remdesivir complete, doxy ongoing. rash has not spread, likely related to edema and dependent limbs. less purpuric and more pinpoint red with bruising. edema improved. c/o productive cough, expectorant Rx'ed. otherwise continue current mgmt. per CDC guidelines, persons with moderate COVID (which includes having oxygen saturation less than 94%) should isolate for 10 days. 12/26: stable, in quarantine day #6 of 10. continue current mgmt. check labs on wednesday morning. 12/27: Continue current regimen and plans. Continue quarantine. 10/23: Continue current plans and regimen 12/29: increasingly disorganized and hyperverbal since DC of lithium. B/L pedal edema dose seem to be improving. day #9 of quarantine. tegretol level 8, other labs unremarkable aside from anemia. 12/30: obsessively scrubbing floor overnight, up all NOC. sleeping during day. more disorganized, hyperverbal. DC seroquel and start olanzapine 30 mg QHS. seroquel 200 mg PRNs for insomnia. 12/31: c/o persisting edema. perhaps lithium is not the largest offender; the only other change has been increasing tegretol dosing (edema identified as a side effect only in post-marketing, frequency not provided by [facility]). lasix 20 mg one time tomorrow morning. otherwise continue current mgmt. slept well last night with zyprexa at HS. 01/01: slept 3 hours overnight. give lasix 40 mg daily x 3 days as 20 mg dose this morning was not effective. pedal edema remains below the ankle. continue current mgmt otherwise. 01/02: continues to have only several hours of sleep at night. reports good diuresis on lasix 40. continue to monitor pedal edema and efficacy of olanzapine + tegretol (and perphenazine) regimen. 01/03 continue current plan. 01/04 continue tx. 01/05: no change to Tx plan. 01/06: increase zyprexa to 40 mg at HS, restart lasix 20 mg daily for pedal edema. trending more organized and less pressured, but by no means well. 01/07: continues to appear less pressured and more organized. paranoia persists. 01/08: more disorganized and pressured today. met with new RENEE. [facility] mtg next wednesday. lasix increased to 40 mg to combat edema. I spent __25____ minutes with the patient and/or on the patient floor today, greater than?50% of which was spent counseling/coordinating care. Reason for contiued inpatient stay Substantial Risk for: harm to others, inability to function and rapid decompensation
[2022-01-08 21:00] VITALS: BP 119/74; PULSE 101; RESP 20; TEMP 36.5; O2SAT 95
[2022-01-08] MEDS: Tamsulosin HCL 0.4 MG CAPSULE PO (22:41)
[2022-01-08] MEDS: OLANZapine ODT 10 MG TAB.RAPDIS 40 MG TRANSLINGU (22:41)
[2022-01-08] MEDS: Prazosin HCL 1 MG CAPSULE 2 MG PO (22:46)
[2022-01-08] MEDS: traZODone HCL 50 MG TABLET 150 MG PO (22:47)
[2022-01-08] MEDS: traZODone HCL 50 MG TABLET PO (22:47)
[2022-01-08] MEDS: Artificial Tears 15 ML DROPS 2 DROP EYE-BOTH (23:09)
[2022-01-09] MEDS: Nicotine Polacrilex 2 MG GUM 4 MG BUCCAL ×7 (04:54→22:29)
[2022-01-09 06:00] VITALS: BP 134/78; PULSE 95; RESP 18; TEMP 36.7; O2SAT 95
[2022-01-09] MEDS: Albuterol Sulfate 90 MCG 8 GM INHALER 2 PUFF INHALE (06:34)
[2022-01-09] MEDS: Ibuprofen 600 MG TABLET PO (06:35)
[2022-01-09] MEDS: QUEtiapine Fumarate 200 MG TABLET PO ×3 (06:35→16:56)
[2022-01-09] MEDS: hydrOXYzine HCL 50 MG TABLET PO (06:35)
[2022-01-09] MEDS: Ammonium Lactate 12 % Lotion 226 GM BOTTLE 1 APPL TOPICAL ×2 (08:30→22:36)
[2022-01-09] MEDS: Perphenazine 8 MG TABLET 16 MG PO ×3 (08:30→22:17)
[2022-01-09] MEDS: Fluticasone/Vilanterol 100/25 BLST.W.DEV 1 PUFF INHALE (08:30)
[2022-01-09] MEDS: carBAMazepine ER 200 MG TAB.ER.12H 800 MG PO ×2 (08:31→22:18)
[2022-01-09] MEDS: Ascorbic Acid 250 MG TABLET PO (08:31)
[2022-01-09] MEDS: clonazePAM 1 MG TABLET PO ×3 (08:31→22:17)
[2022-01-09] MEDS: Vitamin E (Dl,Tocopheryl Acet) 180 MG (400 UNIT) CAPSULE PO ×2 (08:32→22:17)
[2022-01-09] MEDS: Famotidine 20 MG TABLET PO ×2 (08:32→22:18)
[2022-01-09] MEDS: Furosemide 40 MG TABLET PO (08:32)
--- NOTE | 2022-01-09 16:10 | HO.PSYCHPN ---
Subjective Subjective Date of Service: 01/09/22 Reason For Visit: psychosis Interim History: pt sleeping in his bed, not rousable to loud voice. not observed in the milieu later in the day. per staff, hyperverbal, rapid speech. active, appropriate. good appetite, good sleep (11:45 - 0500). Mental Status Exam Mental Status Exam Narrative: sleeping soundly under the covers of his bed, face placid and serene Diagnostics Vital Signs (24Hr): Vital Signs - 24 hr 01/08/22 21:00 01/09/22 06:00 Temperature 97.7 F 98.1 F Pulse Rate 101 H 95 Respiratory Rate 20 18 Blood Pressure 119/74 134/78 Pulse Oximetry 95 95 Oxygen Delivery Method Room Air Room Air BMI result Body Mass Index 30.7 Labs Results: 12/29/21 08:55 12/29/21 08:55 Imaging Radiology Impressions: ITS Impressions Venous Duplex 12/19/21 20:16 IMPRESSION: No DVT demonstrated in the bilateral lower extremity. Medications Medications Current Medications Acetaminophen (Acetaminophen 325 Mg Tablet) 650 mg PO Q6H PRN PRN Reason: Headache/Pain Mild Scale (1-3) Last Admin: 12/30/21 18:04 Dose: 650 mg Al Hydroxide/Mg Hydroxide (Magnesium Hydrox/Alum Hydrox 30 Ml Oral.Susp) 30 ml PO Q6H PRN PRN Reason: Heartburn/Nausea Last Admin: 01/07/22 15:08 Dose: 30 ml Albuterol Sulfate (Albuterol Sulfate 90 Mcg 8 Gm Inhaler) 2 puff INHALE Q4H PRN PRN Reason: shortness of breath or wheezing Last Admin: 01/09/22 06:34 Dose: 2 puff Artificial Tears (Artificial Tears 15 Ml Drops) 2 drop EYE-BOTH Q4H PRN PRN Reason: Dry Eyes Last Admin: 01/08/22 23:09 Dose: 2 drop Ascorbic Acid (Ascorbic Acid 250 Mg Tablet) 250 mg PO DAILY DAVY Last Admin: 01/09/22 08:31 Dose: 250 mg Benzocaine (Throat Lozenge, Medicated Lozenge) 1 lozenge MUCOUS MEM Q1H PRN PRN Reason: Sore Throat Last Admin: 12/27/21 06:54 Dose: 1 lozenge Bisacodyl (Bisacodyl 10 Mg Supp.Rect) 10 mg MS BEDTIME PRN PRN Reason: Constipation Last Admin: 12/06/21 21:14 Dose: 10 mg Carbamazepine (Carbamazepine Er 200 Mg Tab.Er.12h) 800 mg PO BEDTIME DAVY Last Admin: 01/08/22 22:40 Dose: 800 mg Carbamazepine (Carbamazepine Er 200 Mg Tab.Er.12h) 800 mg PO DAILY DAVY Last Admin: 01/09/22 08:31 Dose: 800 mg Clonazepam (Clonazepam 1 Mg Tablet) 1 mg PO TID DAVY Last Admin: 01/09/22 14:48 Dose: 1 mg Famotidine (Famotidine 20 Mg Tablet) 20 mg PO BID DAVY Last Admin: 01/09/22 08:32 Dose: 20 mg Fluticasone/Vilanterol (Fluticasone/Vilanterol 100/25 Blst.W.Dev) 1 puff INHALE DAILY [facility] Last Admin: 01/09/22 08:30 Dose: 1 puff Furosemide (Furosemide 40 Mg Tablet) 40 mg PO DAILY DAVY; Protocol Last Admin: 01/09/22 08:32 Dose: 40 mg Guaifenesin (Guaifenesin La 600 Mg Tab.Er.12h) 600 mg PO BID PRN PRN Reason: thick secretions Last Admin: 01/03/22 23:25 Dose: 600 mg Hydroxyzine HCl (Hydroxyzine Hcl 50 Mg Tablet) 50 mg PO Q6H PRN PRN Reason: Anxiety Last Admin: 01/09/22 06:35 Dose: 50 mg Ibuprofen (Ibuprofen 600 Mg Tablet) 600 mg PO Q6H PRN PRN Reason: aches and pains Last Admin: 01/09/22 06:35 Dose: 600 mg Lactic Acid (Ammonium Lactate 12 % Lotion 226 Gm Bottle) 1 appl TOPICAL BID DAVY; Protocol Last Admin: 01/09/22 08:30 Dose: 1 appl Lidocaine/Diphenhydr/Alum/Mg/Simeth (Mag&Al/Sim/Diphenhyd/Lidocaine 10 Ml Oral.Susp) 10 ml PO Q4H PRN; Protocol PRN Reason: oral mucous membrane ulcer jeremiah Last Admin: 12/20/21 02:20 Dose: 10 ml Magnesium Hydroxide (Milk Of Magnesia 30 Ml Oral.Susp) 30 ml PO DAILY PRN PRN Reason: Constipation Last Admin: 01/04/22 14:27 Dose: 30 ml Nicotine Polacrilex (Nicotine Polacrilex 2 Mg Gum) 4 mg BUCCAL Q1H PRN PRN Reason: Nicotine Cravings Last Admin: 01/09/22 14:48 Dose: 4 mg Olanzapine (Olanzapine Odt 10 Mg Tab.Rapdis) 40 mg TRANSLINGU BEDTIME [facility] Last Admin: 01/08/22 22:41 Dose: 40 mg Perphenazine (Perphenazine 8 Mg Tablet) 16 mg PO TID [facility] Last Admin: 01/09/22 14:48 Dose: 16 mg Prazosin HCl (Prazosin Hcl 1 Mg Capsule) 2 mg PO BEDTIME DAVY; Protocol Last Admin: 01/08/22 22:46 Dose: 2 mg Psyllium Hydrophilic Mucilloid (Psyllium Seed 3.4 Gm Powd.Pack) 3.4 gm PO BID [facility] Last Admin: 01/09/22 08:30 Dose: 3.4 gm Quetiapine Fumarate (Quetiapine Fumarate 200 Mg Tablet) 200 mg PO BID@0900,1400 [facility] Last Admin: 12/30/21 14:22 Dose: 200 mg Quetiapine Fumarate (Quetiapine Fumarate 400 Mg Tablet) 400 mg PO BEDTIME [facility] Last Admin: 12/29/21 20:59 Dose: 400 mg Quetiapine Fumarate (Quetiapine Fumarate 200 Mg Tablet) 200 mg PO Q2H PRN PRN Reason: insomnia/agitation Last Admin: 01/09/22 08:32 Dose: 200 mg Simethicone (Simethicone 80 Mg Tab.Chew) 80 mg PO QIDWMHS PRN PRN Reason: flatulence Last Admin: 12/20/21 22:49 Dose: 80 mg Tamsulosin HCl (Tamsulosin Hcl 0.4 Mg Capsule) 0.4 mg PO BEDTIME [facility] Last Admin: 01/08/22 22:41 Dose: 0.4 mg Trazodone HCl (Trazodone Hcl 50 Mg Tablet) 150 mg PO BEDTIME DAVY Last Admin: 01/08/22 22:47 Dose: 150 mg Trazodone HCl (Trazodone Hcl 50 Mg Tablet) 50 mg PO BEDTIME PRN PRN Reason: Insomnia Last Admin: 01/08/22 22:47 Dose: 50 mg Vitamin E (Vitamin E (Dl,Tocopheryl Acet) 180 Mg (400 Unit) Capsule) 180 mg PO BID [facility] Last Admin: 01/09/22 08:32 Dose: 180 mg Allergies Allergies Allergy/AdvReac Type Severity Reaction Status Date / Time divalproex sodium Allergy Severe PANCREATITI Verified 11/24/21 14:34 [From DEPAKOTE] S haloperidol [From Haldol] Allergy Intermediate DYSTONIC Verified 11/24/21 14:34 REACTION Assessment & Plan Assessment & Plan (1) Schizoaffective disorder: Status: Acute Code(s): F25.9 - Schizoaffective disorder, unspecified (2) Cellulitis: Status: Acute Code(s): L03.90 - Cellulitis, unspecified Assessment and Plan: 51yo M with COPD, HLD, obesity, BPH, ex-smoker, bipolar-type schizoaffective disorder admitted to [facility]. Developed infection of R foot yesterday as well as symptomatic Covid-19 infection without hypoxia. # nonpurulent cellulitis - doxycycline x7d. no need for blood culture. monitor clinically for improvement. (3) COVID-19: Status: Acute Code(s): U07.1 - COVID-19 Assessment and Plan: 51yo M with COPD, HLD, obesity, BPH, ex-smoker, bipolar-type schizoaffective disorder admitted to [facility]. Developed infection of R foot yesterday as well as symptomatic Covid-19 infection without hypoxia. # Covid-19 infection - not hypoxic; no steroids indicated. Paxlovid contraindicated by use of carbamezapine. can give 3 days of IV remdesivir as alternative. Monitor SaO2 qshift. beginning 12/20/21, isolation x5d then mask-wearing x5d Plan 12/03: continue home meds for now. CV rejected as pt unable to appreciate the circumstances of his admission. will need commitment and benedicto's order. T/C restarting clozaril and lithium, on which pt did well for many years, reportedly. tegretol increased from 400 BID to 600 BID at admission. 12/04: klonopin 0.5/0.5/1 reinstated 12/04 (outpt provider had started it 11/25 at 1 mg TID). magic mouthwash started for oral ulcers. 12/05: slept well last night, still pressured and disorganized.? continue current mgmt. 12/08: 12b up, applied for commitment and meds.? making sexually inappropriate comments/suggestions to staff, threatening violence and toward male peer. 12/09: same presentation as yesterday.? started lithium 450 mg BID today. 12/10: no change in presentation, compliant with lithium. 12/11: DC prazosin to see if B/L pedal edema decreases.? DC pravachol as pt is refusing it.? order lac-hydrin for plantar fissure.? otherwise continue previous mgmt.? perhaps slight decrease in pressure and disorganization. 12/12: pedal edema no worse, perhaps better.? no GI side effects from lithium.? fissure looks improved with cream.? check lithium, tegretol, associated labs on wednesday (ordered).? titrate lithium as indicated. 12/13 pt manic, disorganized, intrusive, blaming, threatening (told ghost writer someone would come over and break his neck) -consider switching to Zyprexa from seroquel 12/14 her is manic, intrusive irritable, grandiose [place] level subtherapeutic; however patient is very anxious about this medication causing side effects and at this time ghost writer thinks it might be better to leave it is current dose since patient continues to take it and trying to increase it may very well cause him to refuse it altogether; he is also on Tegretol.? Perhaps switching antipsychotics to Zyprexa is warranted.? Patient says he has never taken Zyprexa before.? Patient typically knows his medication history however usually when someone gets on clozapine it is because most other medications have not worked.? [place] has just reached at steady state so will hold off making medication adjustments right now to see if there can be any further benefit observed from currently lithium dose and medication regimen. 12/15 no change; clonazepam at started off and was not restarted.? Patient did take p.o. laxatives and had a bowel movement says he feels better. 12/16:? increase tegretol from 600 BID to 600/800 tonight, as level around 7.? lithium sub-therapeutic but pt resistant to increase, will see how much better he can get on higher tegretol dosing.? T/C switching anti-psychotic to zyprexa, as pt has done well on clozaril in the past.? TEDs obtained for pedal edema. 12/17: no change in mgmt.? presentation not substantially changed.? some agitation today. 12/18: presentation essentially unchanged.? no agitation today, sleeping late morning. 12/19: Assessed for pedal edema, spoke with hospitalist, BNP, BMP wnl, venous doppler wnl. Per hospitalist, continue with TEDs, may consider low dose lasix. 12/20: stable presentation.? continue current mgmt.? check tegretol level about a week after dose increase.? trending more calm than earlier in his stay but remains very psychotic.? T/C trial of olanzapine. 12/21:? taper and DC lithium and it appears to be having unsustainable physical side effects (B/L LE edema, now possibly with cellulitis).? also tested COVID POS today, satting mid 902 on RA.? hospitalist consult placed for eval of COVID severity and R/O cellulitis.? T/C olanzapine trial once lithium has been DCed. 12/22: stable, appears medically better than yesterday. continue lithium taper, to 150 BID tonight and tomorrow morning. start ibuprofen for better pain control with COVID. continue antibiotic and antiviral. 12/24 continue current tx. O2 sat >93, no s/s of respiratory distress. afebrile. 12/25: course of remdesivir complete, doxy ongoing. rash has not spread, likely related to edema and dependent limbs. less purpuric and more pinpoint red with bruising. edema improved. c/o productive cough, expectorant Rx'ed. otherwise continue current mgmt. per CDC guidelines, persons with moderate COVID (which includes having oxygen saturation less than 94%) should isolate for 10 days. 12/26: stable, in quarantine day #6 of . continue current mgmt. check labs on wednesday morning. 12/27: Continue current regimen and plans. Continue quarantine. 12/28: Continue current plans and regimen 12/29: increasingly disorganized and hyperverbal since DC of lithium. B/L pedal edema dose seem to be improving. day #9 of quarantine. tegretol level 8, other labs unremarkable aside from anemia. 12/30: obsessively scrubbing floor overnight, up all NOC. sleeping during day. more disorganized, hyperverbal. DC seroquel and start olanzapine 30 mg QHS. seroquel 200 mg PRNs for insomnia. 12/31: c/o persisting edema. perhaps lithium is not the largest offender; the only other change has been increasing tegretol dosing (edema identified as a side effect only in post-marketing, frequency not provided by update). lasix 20 mg one time tomorrow morning. otherwise continue current mgmt. slept well last night with zyprexa at HS. 01/01: slept 3 hours overnight. give lasix 40 mg daily x 3 days as 20 mg dose this morning was not effective. pedal edema remains below the ankle. continue current mgmt otherwise. 01/02: continues to have only several hours of sleep at night. reports good diuresis on lasix 40. continue to monitor pedal edema and efficacy of olanzapine + tegretol (and perphenazine) regimen. 01/03 continue current plan. 01/04 continue tx. 01/05: no change to Tx plan. 01/06: increase zyprexa to 40 mg at HS, restart lasix 20 mg daily for pedal edema. trending more organized and less pressured, but by no means well. 01/07: continues to appear less pressured and more organized. paranoia persists. 01/08: more disorganized and pressured today. met with new [facility] mtg next wednesday. lasix increased to 40 mg to combat edema. 01/09: sleeping day shift. reportedly slept 5 hours last night. no change in presentation otherwise. continue current mgmt. I spent ___15___ minutes with the patient and/or on the patient floor today, greater than?50% of which was spent counseling/coordinating care. Reason for contiued inpatient stay Substantial Risk for: inability to function and rapid decompensation
[2022-01-09] MEDS: Prazosin HCL 1 MG CAPSULE 2 MG PO (22:16)
[2022-01-09] MEDS: OLANZapine ODT 10 MG TAB.RAPDIS 40 MG TRANSLINGU (22:17)
[2022-01-09] MEDS: traZODone HCL 50 MG TABLET 150 MG PO (22:17)
[2022-01-09] MEDS: Tamsulosin HCL 0.4 MG CAPSULE PO (22:18)
[2022-01-09 22:26] VITALS: BP 142/77; PULSE 74; TEMP 35.9; O2SAT 100
[2022-01-10] MEDS: Nicotine Polacrilex 2 MG GUM 4 MG BUCCAL ×10 (02:11→22:54)
[2022-01-10 08:38] VITALS: BP 133/85; PULSE 85; RESP 17; TEMP 36.4; O2SAT 97
[2022-01-10] MEDS: Fluticasone/Vilanterol 100/25 BLST.W.DEV 1 PUFF INHALE (08:40)
[2022-01-10] MEDS: Ammonium Lactate 12 % Lotion 226 GM BOTTLE 1 APPL TOPICAL ×2 (08:40→22:53)
[2022-01-10] MEDS: carBAMazepine ER 200 MG TAB.ER.12H 800 MG PO ×2 (08:42→22:39)
[2022-01-10] MEDS: hydrOXYzine HCL 50 MG TABLET PO (08:43)
[2022-01-10] MEDS: Ibuprofen 600 MG TABLET PO (08:43)
[2022-01-10] MEDS: Vitamin E (Dl,Tocopheryl Acet) 180 MG (400 UNIT) CAPSULE PO ×2 (08:43→22:39)
[2022-01-10] MEDS: Ascorbic Acid 250 MG TABLET PO (08:44)
[2022-01-10] MEDS: Furosemide 40 MG TABLET PO (08:44)
[2022-01-10] MEDS: Perphenazine 8 MG TABLET 16 MG PO ×3 (08:44→22:40)
[2022-01-10] MEDS: Famotidine 20 MG TABLET PO ×2 (08:44→22:40)
--- NOTE | 2022-01-10 10:22 | P.PNPSI_ITS ---
Subjective Subjective Date of Service: 01/10/22 Reason For Visit: psychosis Interim History: pt walking in hallway; pt still hyperverbal, rapid speech. active, appropriate. good appetite, good sleep (11:45 - 0500). not wanting to wear Sukumar stocking because stretch out and worn and unable to understand that nursing can help him wash them. Medication Compliance: Yes Side effects from medications: No Attending Groups: No Review of Systems Acute medical concerns: No Medical Review of Systems: unchanged Review of Systems Review of Systems Lower extremity edema Yes all other systems are reviewed and are negative and Unobtainable due to mental status Mental Status Exam Mental Status Exam Patient Appearance: Disheveled, Inappropriate and Unkempt Patient Orientation: Person, Place, Time and Situation Level of Consciousness: Awake, Alert and Inappropriate Patient Behavior: Talkative, Distractible and Good Eye Contact Mood Description: Labile and Expansive Affect Description: Calm Ability to Follow Directions: Fair Speech Pattern: Rambling, Pressured and Includes Profanity Thought Content: positive for Preoccupation Abnormal Motor Activity Signs and Symptoms: Restlessness Judgement: Poor Diagnostics Vital Signs (24Hr): Vital Signs - 24 hr 01/09/22 22:26 01/10/22 08:38 Temperature 96.7 F L 97.6 F Pulse Rate 74 85 Respiratory Rate 17 Blood Pressure 142/77 H 133/85 Pulse Oximetry 100 97 Oxygen Delivery Method Room Air Room Air BMI result Body Mass Index 30.7 Labs Results: 12/29/21 08:55 12/29/21 08:55 Imaging Radiology Impressions: ITS Impressions Venous Duplex 12/19/21 20:16 IMPRESSION: No DVT demonstrated in the bilateral lower extremity. Medications Medications Current Medications Acetaminophen (Acetaminophen 325 Mg Tablet) 650 mg PO Q6H PRN PRN Reason: Headache/Pain Mild Scale (1-3) Last Admin: 12/30/21 18:04 Dose: 650 mg Al Hydroxide/Mg Hydroxide (Magnesium Hydrox/Alum Hydrox 30 Ml Oral.Susp) 30 ml PO Q6H PRN PRN Reason: Heartburn/Nausea Last Admin: 01/07/22 15:08 Dose: 30 ml Albuterol Sulfate (Albuterol Sulfate 90 Mcg 8 Gm Inhaler) 2 puff INHALE Q4H PRN PRN Reason: shortness of breath or wheezing Last Admin: 01/09/22 06:34 Dose: 2 puff Artificial Tears (Artificial Tears 15 Ml Drops) 2 drop EYE-BOTH Q4H PRN PRN Reason: Dry Eyes Last Admin: 01/08/22 23:09 Dose: 2 drop Ascorbic Acid (Ascorbic Acid 250 Mg Tablet) 250 mg PO DAILY DAVY Last Admin: 01/10/22 08:44 Dose: 250 mg Benzocaine (Throat Lozenge, Medicated Lozenge) 1 lozenge MUCOUS MEM Q1H PRN PRN Reason: Sore Throat Last Admin: 12/27/21 06:54 Dose: 1 lozenge Bisacodyl (Bisacodyl 10 Mg Supp.Rect) 10 mg WI BEDTIME PRN PRN Reason: Constipation Last Admin: 12/06/21 21:14 Dose: 10 mg Carbamazepine (Carbamazepine Er 200 Mg Tab.Er.12h) 800 mg PO BEDTIME DAVY Last Admin: 01/09/22 22:18 Dose: 800 mg Carbamazepine (Carbamazepine Er 200 Mg Tab.Er.12h) 800 mg PO DAILY DAVY Last Admin: 01/10/22 08:42 Dose: 800 mg Famotidine (Famotidine 20 Mg Tablet) 20 mg PO BID [facility] Last Admin: 01/10/22 08:44 Dose: 20 mg Fluticasone/Vilanterol (Fluticasone/Vilanterol 100/25 Blst.W.Dev) 1 puff INHALE DAILY [facility] Last Admin: 01/10/22 08:40 Dose: 1 puff Furosemide (Furosemide 40 Mg Tablet) 40 mg PO DAILY [facility]; Protocol Last Admin: 01/10/22 08:44 Dose: 40 mg Guaifenesin (Guaifenesin La 600 Mg Tab.Er.12h) 600 mg PO BID PRN PRN Reason: thick secretions Last Admin: 01/03/22 23:25 Dose: 600 mg Hydroxyzine HCl (Hydroxyzine Hcl 50 Mg Tablet) 50 mg PO Q6H PRN PRN Reason: Anxiety Last Admin: 01/10/22 08:43 Dose: 50 mg Ibuprofen (Ibuprofen 600 Mg Tablet) 600 mg PO Q6H PRN PRN Reason: aches and pains Last Admin: 01/10/22 08:43 Dose: 600 mg Lactic Acid (Ammonium Lactate 12 % Lotion 226 Gm Bottle) 1 appl TOPICAL BID DAVY; Protocol Last Admin: 01/10/22 08:40 Dose: 1 appl Lidocaine/Diphenhydr/Alum/Mg/Simeth (Mag&Al/Sim/Diphenhyd/Lidocaine 10 Ml Oral.Susp) 10 ml PO Q4H PRN; Protocol PRN Reason: oral mucous membrane ulcer jeremiah Last Admin: 12/20/21 02:20 Dose: 10 ml Magnesium Hydroxide (Milk Of Magnesia 30 Ml Oral.Susp) 30 ml PO DAILY PRN PRN Reason: Constipation Last Admin: 01/04/22 14:27 Dose: 30 ml Nicotine Polacrilex (Nicotine Polacrilex 2 Mg Gum) 4 mg BUCCAL Q1H PRN PRN Reason: Nicotine Cravings Last Admin: 01/10/22 10:20 Dose: 4 mg Olanzapine (Olanzapine Odt 10 Mg Tab.Rapdis) 40 mg TRANSLINGU BEDTIME DAVY Last Admin: 01/09/22 22:17 Dose: 40 mg Perphenazine (Perphenazine 8 Mg Tablet) 16 mg PO TID DAVY Last Admin: 01/10/22 08:44 Dose: 16 mg Prazosin HCl (Prazosin Hcl 1 Mg Capsule) 2 mg PO BEDTIME DAVY; Protocol Last Admin: 01/09/22 22:16 Dose: 2 mg Psyllium Hydrophilic Mucilloid (Psyllium Seed 3.4 Gm Powd.Pack) 3.4 gm PO BID DAVY Last Admin: 01/10/22 08:41 Dose: 3.4 gm Quetiapine Fumarate (Quetiapine Fumarate 200 Mg Tablet) 200 mg PO BID@0900,1400 DAVY Last Admin: 12/30/21 14:22 Dose: 200 mg Quetiapine Fumarate (Quetiapine Fumarate 400 Mg Tablet) 400 mg PO BEDTIME DAVY Last Admin: 12/29/21 20:59 Dose: 400 mg Quetiapine Fumarate (Quetiapine Fumarate 200 Mg Tablet) 200 mg PO Q2H PRN PRN Reason: insomnia/agitation Last Admin: 01/09/22 16:56 Dose: 200 mg Simethicone (Simethicone 80 Mg Tab.Chew) 80 mg PO QIDWMHS PRN PRN Reason: flatulence Last Admin: 12/20/21 22:49 Dose: 80 mg Tamsulosin HCl (Tamsulosin Hcl 0.4 Mg Capsule) 0.4 mg PO BEDTIME DAVY Last Admin: 01/09/22 22:18 Dose: 0.4 mg Trazodone HCl (Trazodone Hcl 50 Mg Tablet) 150 mg PO BEDTIME DAVY Last Admin: 01/09/22 22:17 Dose: 150 mg Trazodone HCl (Trazodone Hcl 50 Mg Tablet) 50 mg PO BEDTIME PRN PRN Reason: Insomnia Last Admin: 01/08/22 22:47 Dose: 50 mg Vitamin E (Vitamin E (Dl,Tocopheryl Acet) 180 Mg (400 Unit) Capsule) 180 mg PO BID DAVY Last Admin: 01/10/22 08:43 Dose: 180 mg Allergies Allergies Allergy/AdvReac Type Severity Reaction Status Date / Time divalproex sodium Allergy Severe PANCREATITI Verified 11/24/21 14:34 [From DEPAKOTE] S haloperidol [From Haldol] Allergy Intermediate DYSTONIC Verified 11/24/21 14:34 REACTION Assessment & Plan Assessment & Plan (1) Schizoaffective disorder: Status: Acute Code(s): F25.9 - Schizoaffective disorder, unspecified (2) Cellulitis: Status: Acute Code(s): L03.90 - Cellulitis, unspecified Assessment and Plan: 51yo M with COPD, HLD, obesity, BPH, ex-smoker, bipolar-type schizoaffective disorder admitted to [facility]. Developed infection of R foot yesterday as well as symptomatic Covid-19 infection without hypoxia. # nonpurulent cellulitis - doxycycline x7d. no need for blood culture. monitor clinically for improvement. (3) COVID-19: Status: Acute Code(s): U07.1 - COVID-19 Assessment and Plan: 51yo M with COPD, HLD, obesity, BPH, ex-smoker, bipolar-type schizoaffective disorder admitted to [facility]. Developed infection of R foot yesterday as well as symptomatic Covid-19 infection without hypoxia. # Covid-19 infection - not hypoxic; no steroids indicated. Paxlovid contraindicated by use of carbamezapine. can give 3 days of IV remdesivir as alternative. Monitor SaO2 qshift. beginning 12/20/21, isolation x5d then mask-wearing x5d Plan 12/03: continue home meds for now. CV rejected as pt unable to appreciate the circumstances of his admission. will need commitment and benedicto's order. T/C restarting clozaril and lithium, on which pt did well for many years, reportedly. tegretol increased from 400 BID to 600 BID at admission. 12/04: klonopin 0.5/0.5/1 reinstated 12/04 (outpt provider had started it 11/25 at 1 mg TID). magic mouthwash started for oral ulcers. 12/05: slept well last night, still pressured and disorganized.? continue current mgmt. 12/08: 12b up, applied for commitment and meds.? making sexually inappropriate comments/suggestions to staff, threatening violence and toward male peer. 12/09: same presentation as yesterday.? started lithium 450 mg BID today. 12/10: no change in presentation, compliant with lithium. 12/11: DC prazosin to see if B/L pedal edema decreases.? DC pravachol as pt is refusing it.? order lac-hydrin for plantar fissure.? otherwise continue previous mgmt.? perhaps slight decrease in pressure and disorganization. 12/12: pedal edema no worse, perhaps better.? no GI side effects from lithium.? fissure looks improved with cream.? check lithium, tegretol, associated labs on wednesday (ordered).? titrate lithium as indicated. 12/13 pt manic, disorganized, intrusive, blaming, threatening (told underwriter someone would come over and break his neck) -consider switching to Zyprexa from seroquel 12/14 her is manic, intrusive irritable, grandiose [place] level subtherapeutic; however patient is very anxious about this medication causing side effects and at this time underwriter thinks it might be better to leave it is current dose since patient continues to take it and trying to increase it may very well cause him to refuse it altogether; he is also on Tegretol.? Perhaps switching antipsychotics to Zyprexa is warranted.? Patient says he has never taken Zyprexa before.? Patient typically knows his medication history however usually when someone gets on clozapine it is because most other medications have not worked.? [place] has just reached at steady state so will hold off making medication adjustments right now to see if there can be any f urther benefit observed from currently lithium dose and medication regimen. 12/15 no change; clonazepam at started off and was not restarted.? Patient did take p.o. laxatives and had a bowel movement says he feels better. 12/16:? increase tegretol from 600 BID to 600/800 tonight, as level around 7.? lithium sub-therapeutic but pt resistant to increase, will see how much better he can get on higher tegretol dosing.? T/C switching anti-psychotic to zyprexa, as pt has done well on clozaril in the past.? TEDs obtained for pedal edema. 12/17: no change in mgmt.? presentation not substantially changed.? some agitation today. 12/18: presentation essentially unchanged.? no agitation today, sleeping late morning. 12/19: Assessed for pedal edema, spoke with hospitalist, BNP, BMP wnl, venous doppler wnl. Per hospitalist, continue with TEDs, may consider low dose lasix. 12/20: stable presentation.? continue current mgmt.? check tegretol level about a week after dose increase.? trending more calm than earlier in his stay but remains very psychotic.? T/C trial of olanzapine. 12/21:? taper and DC lithium and it appears to be having unsustainable physical side effects (B/L LE edema, now possibly with cellulitis).? also tested COVID POS today, satting mid 902 on RA.? hospitalist consult placed for eval of COVID severity and R/O cellulitis.? T/C olanzapine trial once lithium has been DCed. 12/22: stable, appears medically better than yesterday. continue lithium taper, to 150 BID tonight and tomorrow morning. start ibuprofen for better pain control with COVID. continue antibiotic and antiviral. 12/24 continue current tx. O2 sat >93, no s/s of respiratory distress. afebrile. 12/25: course of remdesivir complete, doxy ongoing. rash has not spread, likely related to edema and dependent limbs. less purpuric and more pinpoint red with bruising. edema improved. c/o productive cough, expectorant Rx'ed. otherwise continue current mgmt. per CDC guidelines, persons with moderate COVID (which includes having oxygen saturation less than 94%) should isolate for 10 days. 12/26: stable, in quarantine day #6 of . continue current mgmt. check labs on wednesday morning. 12/27: Continue current regimen and plans. Continue quarantine. 12/28: Continue current plans and regimen 12/29: increasingly disorganized and hyperverbal since DC of lithium. B/L pedal edema dose seem to be improving. day #9 of quarantine. tegretol level 8, other labs unremarkable aside from anemia. 12/30: obsessively scrubbing floor overnight, up all NOC. sleeping during day. more disorganized, hyperverbal. DC seroquel and start olanzapine 30 mg QHS. seroquel 200 mg PRNs for insomnia. 12/31: c/o persisting edema. perhaps lithium is not the largest offender; the only other change has been increasing tegretol dosing (edema identified as a side effect only in post-marketing, frequency not provided by update). lasix 20 mg one time tomorrow morning. otherwise continue current mgmt. slept well last night with zyprexa at HS. 01/01: slept 3 hours overnight. give lasix 40 mg daily x 3 days as 20 mg dose this morning was not effective. pedal edema remains below the ankle. continue current mgmt otherwise. 01/02: continues to have only several hours of sleep at night. reports good diuresis on lasix 40. continue to monitor pedal edema and efficacy of olanzapine + tegretol (and perphenazine) regimen. 01/03 continue current plan. 01/04 continue tx. 01/05: no change to Tx plan. 01/06: increase zyprexa to 40 mg at HS, restart lasix 20 mg daily for pedal edema. trending more organized and less pressured, but by no means well. 01/07: continues to appear less pressured and more organized. paranoia persists. 01/08: more disorganized and pressured today. met with new [facility] mtg next wednesday. lasix increased to 40 mg to combat edema. 01/09: sleeping day shift. reportedly slept 5 hours last night. no change in presentation otherwise. continue current mgmt. 01/10/Continue treatment plan including HOLD on scheduled seroquel I spent ___15___ minutes with the patient and/or on the patient floor today, greater than?50% of which was spent counseling/coordinating care. Reason for contiued inpatient stay Substantial Risk for: harm to self, harm to others, inability to function and ra pid decompensation
[2022-01-10] MEDS: clonazePAM 1 MG TABLET PO ×3 (11:04→22:40)
[2022-01-10 22:15] VITALS: BP 140/74; PULSE 73; TEMP 36.6; O2SAT 97
[2022-01-10] MEDS: Tamsulosin HCL 0.4 MG CAPSULE PO (22:38)
[2022-01-10] MEDS: traZODone HCL 50 MG TABLET 150 MG PO (22:39)
[2022-01-10] MEDS: OLANZapine ODT 10 MG TAB.RAPDIS 40 MG TRANSLINGU (22:40)
[2022-01-10] MEDS: Prazosin HCL 1 MG CAPSULE 2 MG PO (22:41)
[2022-01-11] MEDS: Nicotine Polacrilex 2 MG GUM 4 MG BUCCAL ×8 (00:35→23:17)
[2022-01-11] MEDS: QUEtiapine Fumarate 200 MG TABLET PO ×2 (00:44→08:31)
[2022-01-11] MEDS: hydrOXYzine HCL 50 MG TABLET PO ×3 (00:44→15:41)
[2022-01-11 08:27] VITALS: BP 141/80; PULSE 76; RESP 19; TEMP 36.4; O2SAT 99
[2022-01-11] MEDS: Fluticasone/Vilanterol 100/25 BLST.W.DEV 1 PUFF INHALE (08:28)
[2022-01-11] MEDS: Ammonium Lactate 12 % Lotion 226 GM BOTTLE 1 APPL TOPICAL (08:28)
[2022-01-11] MEDS: clonazePAM 1 MG TABLET PO ×2 (08:31→15:20)
[2022-01-11] MEDS: Perphenazine 8 MG TABLET 16 MG PO ×2 (08:31→15:20)
[2022-01-11] MEDS: Vitamin E (Dl,Tocopheryl Acet) 180 MG (400 UNIT) CAPSULE PO (08:31)
[2022-01-11] MEDS: carBAMazepine ER 200 MG TAB.ER.12H 800 MG PO (08:32)
[2022-01-11] MEDS: Ibuprofen 600 MG TABLET PO (08:32)
[2022-01-11] MEDS: Famotidine 20 MG TABLET PO (08:33)
[2022-01-11] MEDS: Furosemide 40 MG TABLET PO (08:33)
[2022-01-11] MEDS: Ascorbic Acid 250 MG TABLET PO (08:34)
--- NOTE | 2022-01-11 18:16 | HO.PSYCHPN ---
Subjective Subjective Date of Service: 01/11/22 Reason For Visit: psychosis Interim History: pt walking in hallway; pt a bit more organized today; less hyperverbal, rapid speech. denies hallucinations. reports he feels safe on unit; denies SI or HI. He is more active, appropriate. good appetite, good sleep Medication Compliance: Yes Side effects from medications: No Attending Groups: No Review of Systems Acute medical concerns: No Medical Review of Systems: unchanged Review of Systems Review of Systems Lower extremity edema Yes all other systems are reviewed and are negative and Unobtainable due to mental status Mental Status Exam Mental Status Exam Narrative: sleeping soundly under the covers of his bed, face placid and serene Patient Appearance: Disheveled, Inappropriate and Unkempt Patient Orientation: Person, Place, Time and Situation Level of Consciousness: Awake, Alert and Inappropriate Patient Behavior: Talkative, Distractible and Good Eye Contact Mood Description: Labile and Expansive Affect Description: Calm Ability to Follow Directions: Fair Speech Pattern: Rambling, Pressured and Includes Profanity Abnormal Motor Activity Signs and Symptoms: Restlessness Judgement: Fair Diagnostics Vital Signs (24Hr): Vital Signs - 24 hr 01/10/22 22:15 01/11/22 08:27 Temperature 97.8 F 97.6 F Pulse Rate 73 76 Respiratory Rate 19 Blood Pressure 140/74 H 141/80 H Pulse Oximetry 97 99 Oxygen Delivery Method Room Air Room Air BMI result Body Mass Index 30.7 Labs Results: 12/29/21 08:55 12/29/21 08:55 Imaging Radiology Impressions: ITS Impressions Venous Duplex 12/19/21 20:16 IMPRESSION: No DVT demonstrated in the bilateral lower extremity. Medications Medications Current Medications Acetaminophen (Acetaminophen 325 Mg Tablet) 650 mg PO Q6H PRN PRN Reason: Headache/Pain Mild Scale (1-3) Last Admin: 12/30/21 18:04 Dose: 650 mg Al Hydroxide/Mg Hydroxide (Magnesium Hydrox/Alum Hydrox 30 Ml Oral.Susp) 30 ml PO Q6H PRN PRN Reason: Heartburn/Nausea Last Admin: 01/07/22 15:08 Dose: 30 ml Albuterol Sulfate (Albuterol Sulfate 90 Mcg 8 Gm Inhaler) 2 puff INHALE Q4H PRN PRN Reason: shortness of breath or wheezing Last Admin: 01/09/22 06:34 Dose: 2 puff Artificial Tears (Artificial Tears 15 Ml Drops) 2 drop EYE-BOTH Q4H PRN PRN Reason: Dry Eyes Last Admin: 01/08/22 23:09 Dose: 2 drop Ascorbic Acid (Ascorbic Acid 250 Mg Tablet) 250 mg PO DAILY [facility] Last Admin: 01/11/22 08:34 Dose: 250 mg Benzocaine (Throat Lozenge, Medicated Lozenge) 1 lozenge MUCOUS MEM Q1H PRN PRN Reason: Sore Throat Last Admin: 12/27/21 06:54 Dose: 1 lozenge Bisacodyl (Bisacodyl 10 Mg Supp.Rect) 10 mg VT BEDTIME PRN PRN Reason: Constipation Last Admin: 12/06/21 21:14 Dose: 10 mg Carbamazepine (Carbamazepine Er 200 Mg Tab.Er.12h) 800 mg PO BEDTIME DAVY Last Admin: 01/10/22 22:39 Dose: 800 mg Carbamazepine (Carbamazepine Er 200 Mg Tab.Er.12h) 800 mg PO DAILY [facility] Last Admin: 01/11/22 08:32 Dose: 800 mg Clonazepam (Clonazepam 1 Mg Tablet) 1 mg PO TID [facility] Last Admin: 01/11/22 15:20 Dose: 1 mg Famotidine (Famotidine 20 Mg Tablet) 20 mg PO BID [facility] Last Admin: 01/11/22 08:33 Dose: 20 mg Fluticasone/Vilanterol (Fluticasone/Vilanterol 100/25 Blst.W.Dev) 1 puff INHALE DAILY [facility] Last Admin: 01/11/22 08:28 Dose: 1 puff Furosemide (Furosemide 40 Mg Tablet) 40 mg PO DAILY [facility]; Protocol Last Admin: 01/11/22 08:33 Dose: 40 mg Guaifenesin (Guaifenesin La 600 Mg Tab.Er.12h) 600 mg PO BID PRN PRN Reason: thick secretions Last Admin: 01/03/22 23:25 Dose: 600 mg Hydroxyzine HCl (Hydroxyzine Hcl 50 Mg Tablet) 50 mg PO Q6H PRN PRN Reason: Anxiety Last Admin: 01/11/22 15:41 Dose: 50 mg Ibuprofen (Ibuprofen 600 Mg Tablet) 600 mg PO Q6H PRN PRN Reason: aches and pains Last Admin: 01/11/22 08:32 Dose: 600 mg Lactic Acid (Ammonium Lactate 12 % Lotion 226 Gm Bottle) 1 appl TOPICAL BID DAVY; Protocol Last Admin: 01/11/22 08:28 Dose: 1 appl Lidocaine/Diphenhydr/Alum/Mg/Simeth (Mag&Al/Sim/Diphenhyd/Lidocaine 10 Ml Oral.Susp) 10 ml PO Q4H PRN; Protocol PRN Reason: oral mucous membrane ulcer jeremiah Last Admin: 12/20/21 02:20 Dose: 10 ml Magnesium Hydroxide (Milk Of Magnesia 30 Ml Oral.Susp) 30 ml PO DAILY PRN PRN Reason: Constipation Last Admin: 01/04/22 14:27 Dose: 30 ml Nicotine Polacrilex (Nicotine Polacrilex 2 Mg Gum) 4 mg BUCCAL Q1H PRN PRN Reason: Nicotine Cravings Last Admin: 01/11/22 15:20 Dose: 4 mg Olanzapine (Olanzapine Odt 10 Mg Tab.Rapdis) 40 mg TRANSLINGU BEDTIME DAVY Last Admin: 01/10/22 22:40 Dose: 40 mg Perphenazine (Perphenazine 8 Mg Tablet) 16 mg PO TID DAVY Last Admin: 01/11/22 15:20 Dose: 16 mg Prazosin HCl (Prazosin Hcl 1 Mg Capsule) 2 mg PO BEDTIME DAVY; Protocol Last Admin: 01/10/22 22:41 Dose: 2 mg Psyllium Hydrophilic Mucilloid (Psyllium Seed 3.4 Gm Powd.Pack) 3.4 gm PO BID DAVY Last Admin: 01/11/22 08:30 Dose: 3.4 gm Quetiapine Fumarate (Quetiapine Fumarate 200 Mg Tablet) 200 mg PO BID@0900,1400 [facility] Last Admin: 12/30/21 14:22 Dose: 200 mg Quetiapine Fumarate (Quetiapine Fumarate 400 Mg Tablet) 400 mg PO BEDTIME DAVY Last Admin: 12/29/21 20:59 Dose: 400 mg Quetiapine Fumarate (Quetiapine Fumarate 200 Mg Tablet) 200 mg PO Q2H PRN PRN Reason: insomnia/agitation Last Admin: 01/11/22 08:31 Dose: 200 mg Simethicone (Simethicone 80 Mg Tab.Chew) 80 mg PO QIDWMHS PRN PRN Reason: flatulence Last Admin: 12/20/21 22:49 Dose: 80 mg Tamsulosin HCl (Tamsulosin Hcl 0.4 Mg Capsule) 0.4 mg PO BEDTIME [facility] Last Admin: 01/10/22 22:38 Dose: 0.4 mg Trazodone HCl (Trazodone Hcl 50 Mg Tablet) 150 mg PO BEDTIME [facility] Last Admin: 01/10/22 22:39 Dose: 150 mg Trazodone HCl (Trazodone Hcl 50 Mg Tablet) 50 mg PO BEDTIME PRN PRN Reason: Insomnia Last Admin: 01/08/22 22:47 Dose: 50 mg Vitamin E (Vitamin E (Dl,Tocopheryl Acet) 180 Mg (400 Unit) Capsule) 180 mg PO BID [facility] Last Admin: 01/11/22 08:31 Dose: 180 mg Allergies Allergies Allergy/AdvReac Type Severity Reaction Status Date / Time divalproex sodium Allergy Severe PANCREATITI Verified 11/24/21 14:34 [From DEPAKOTE] S haloperidol [From Haldol] Allergy Intermediate DYSTONIC Verified 11/24/21 14:34 REACTION Assessment & Plan Assessment & Plan (1) Schizoaffective disorder: Status: Acute Code(s): F25.9 - Schizoaffective disorder, unspecified (2) Cellulitis: Status: Acute Code(s): L03.90 - Cellulitis, unspecified Assessment and Plan: 51yo M with COPD, HLD, obesity, BPH, ex-smoker, bipolar-type schizoaffective disorder admitted to [facility]. Developed infection of R foot yesterday as well as symptomatic Covid-19 infection without hypoxia. # nonpurulent cellulitis - doxycycline x7d. no need for blood culture. monitor clinically for improvement. (3) COVID-19: Status: Acute Code(s): U07.1 - COVID-19 Assessment and Plan: 51yo M with COPD, HLD, obesity, BPH, ex-smoker, bipolar-type schizoaffective disorder admitted to [facility]. Developed infection of R foot yesterday as well as symptomatic Covid-19 infection without hypoxia. # Covid-19 infection - not hypoxic; no steroids indicated. Paxlovid contraindicated by use of carbamezapine. can give 3 days of IV remdesivir as alternative. Monitor SaO2 qshift. beginning 12/20/21, isolation x5d then mask-wearing x5d Plan 12/03: continue home meds for now. CV rejected as pt unable to appreciate the circumstances of his admission. will need commitment and benedicto's order. T/C restarting clozaril and lithium, on which pt did well for many years, reportedly. tegretol increased from 400 BID to 600 BID at admission. 12/04: klonopin 0.5/0.5/1 reinstated 12/04 (outpt provider had started it 11/25 at 1 mg TID). magic mouthwash started for oral ulcers. 12/05: slept well last night, still pressured and disorganized.? continue current mgmt. 12/08: 12b up, applied for commitment and meds.? making sexually inappropriate comments/suggestions to staff, threatening violence and toward male peer. 12/09: same presentation as yesterday.? started lithium 450 mg BID today. 12/10: no change in presentation, compliant with lithium. 12/11: DC prazosin to see if B/L pedal edema decreases.? DC pravachol as pt is refusing it.? order lac-hydrin for plantar fissure.? otherwise continue previous mgmt.? perhaps slight decrease in pressure and disorganization. 12/12: pedal edema no worse, perhaps better.? no GI side effects from lithium.? fissure looks improved with cream.? check lithium, tegretol, associated labs on wednesday (ordered).? titrate lithium as indicated. 12/13 pt manic, disorganized, intrusive, blaming, threatening (told health underwriter someone would come over and break his neck) -consider switching to Zyprexa from seroquel 12/14 her is manic, intrusive irritable, grandiose Adwolf level subtherapeutic; however patient is very anxious about this medication causing side effects and at this time health underwriter thinks it might be better to leave it is current dose since patient continues to take it and trying to increase it may very well cause him to refuse it altogether; he is also on Tegretol.? Perhaps switching antipsychotics to Zyprexa is warranted.? Patient says he has never taken Zyprexa before.? Patient typically knows his medication history however usually when someone gets on clozapine it is because most other medications have not worked.? Adwolf has just reached at steady state so will hold off making medication adjustments right now to see if there can be any further benefit observed from currently lithium dose and medication regimen. 12/15 no change; clonazepam at started off and was not restarted.? Patient did take p.o. laxatives and had a bowel movement says he feels better. 12/16:? increase tegretol from 600 BID to 600/800 tonight, as level around 7.? lithium sub-therapeutic but pt resistant to increase, will see how much better he can get on higher tegretol dosing.? T/C switching anti-psychotic to zyprexa, as pt has done well on clozaril in the past.? TEDs obtained for pedal edema. 12/17: no change in mgmt.? presentation not substantially changed.? some agitation today. 12/18: presentation essentially unchanged.? no agitation today, sleeping late morning. 12/19: Assessed for pedal edema, spoke with hospitalist, BNP, BMP wnl, venous doppler wnl. Per hospitalist, continue with TEDs, may consider low dose lasix. 12/20: stable presentation.? continue current mgmt.? check tegretol level about a week after dose increase.? trending more calm than earlier in his stay but remains very psychotic.? T/C trial of olanzapine. 12/21:? taper and DC lithium and it appears to be having unsustainable physical side effects (B/L LE edema, now possibly with cellulitis).? also tested COVID POS today, satting mid 902 on RA.? hospitalist consult placed for eval of COVID severity and R/O cellulitis.? T/C olanzapine trial once lithium has been DCed. 12/22: stable, appears medically better than yesterday. continue lithium taper, to 150 BID tonight and tomorrow morning. start ibuprofen for better pain control with COVID. continue antibiotic and antiviral. 12/24 continue current tx. O2 sat >93, no s/s of respiratory distress. afebrile. 12/25: course of remdesivir complete, doxy ongoing. rash has not spread, likely related to edema and dependent limbs. less purpuric and more pinpoint red with bruising. edema improved. c/o productive cough, expectorant Rx'ed. otherwise continue current mgmt. per CDC guidelines, persons with moderate COVID (which includes having oxygen saturation less than 94%) should isolate for 10 days. 10/21: stable, in quarantine day #6 of . continue current mgmt. check labs on wednesday morning. 12/27: Continue current regimen and plans. Continue quarantine. 12/28: Continue current plans and regimen 12/29: increasingly disorganized and hyperverbal since DC of lithium. B/L pedal edema dose seem to be improving. day #9 of quarantine. tegretol level 8, other labs unremarkable aside from anemia. 12/30: obsessively scrubbing floor overnight, up all NOC. sleeping during day. more disorganized, hyperverbal. DC seroquel and start olanzapine 30 mg QHS. seroquel 200 mg PRNs for insomnia. 12/31: c/o persisting edema. perhaps lithium is not the largest offender; the only other change has been increasing tegretol dosing (edema identified as a side effect only in post-marketing, frequency not provided by update). lasix 20 mg one time tomorrow morning. otherwise continue current mgmt. slept well last night with zyprexa at HS. 01/01: slept 3 hours overnight. give lasix 40 mg daily x 3 days as 20 mg dose this morning was not effective. pedal edema remains below the ankle. continue current mgmt otherwise. 01/02: continues to have only several hours of sleep at night. reports good diuresis on lasix 40. continue to monitor pedal edema and efficacy of olanzapine + tegretol (and perphenazine) regimen. 01/03 continue current plan. 01/04 continue tx. 01/05: no change to Tx plan. 01/06: increase zyprexa to 40 mg at HS, restart lasix 20 mg daily for pedal edema. trending more organized and less pressured, but by no means well. 01/07: continues to appear less pressured and more organized. paranoia persists. 01/08: more disorganized and pressured today. met with new RENEE[facility] mtg next wednesday. lasix increased to 40 mg to combat edema. 01/09: sleeping day shift. reportedly slept 5 hours last night. no change in presentation otherwise. continue current mgmt. 01/10/Continue treatment plan including HOLD on scheduled seroquel 01/11 Contnue current treatment plan I spent ___15___ minutes with the patient and/or on the patient floor today, greater than?50% of which was spent counseling/coordinating care. Reason for contiued inpatient stay Substantial Risk for: harm to self, harm to others, inability to function and rapid decompensation
[2022-01-12 00:35] VITALS: BP 138/83; PULSE 91; RESP 18; TEMP 36.4; O2SAT 95
[2022-01-12] MEDS: Vitamin E (Dl,Tocopheryl Acet) 180 MG (400 UNIT) CAPSULE PO ×3 (00:39→21:25)
[2022-01-12] MEDS: carBAMazepine ER 200 MG TAB.ER.12H 800 MG PO ×3 (00:39→21:25)
[2022-01-12] MEDS: Famotidine 20 MG TABLET PO ×3 (00:39→21:24)
[2022-01-12] MEDS: clonazePAM 1 MG TABLET PO ×4 (00:39→21:27)
[2022-01-12] MEDS: traZODone HCL 50 MG TABLET 150 MG PO ×2 (00:39→21:24)
[2022-01-12] MEDS: Tamsulosin HCL 0.4 MG CAPSULE PO ×2 (00:39→21:25)
[2022-01-12] MEDS: Perphenazine 8 MG TABLET 16 MG PO ×4 (00:40→21:24)
[2022-01-12] MEDS: Prazosin HCL 1 MG CAPSULE 2 MG PO ×2 (00:40→21:24)
[2022-01-12] MEDS: OLANZapine ODT 10 MG TAB.RAPDIS 40 MG TRANSLINGU ×2 (00:40→21:25)
[2022-01-12] MEDS: Nicotine Polacrilex 2 MG GUM 4 MG BUCCAL ×10 (00:53→20:22)
[2022-01-12] MEDS: Ammonium Lactate 12 % Lotion 226 GM BOTTLE 1 APPL TOPICAL ×2 (01:00→08:19)
[2022-01-12 08:17] VITALS: BP 137/85; PULSE 76; RESP 18; TEMP 36.4; O2SAT 99
[2022-01-12] MEDS: Fluticasone/Vilanterol 100/25 BLST.W.DEV 1 PUFF INHALE (08:19)
[2022-01-12] MEDS: Ibuprofen 600 MG TABLET PO ×2 (08:21→21:44)
[2022-01-12] MEDS: Ascorbic Acid 250 MG TABLET PO (08:22)
[2022-01-12] MEDS: hydrOXYzine HCL 50 MG TABLET PO ×3 (08:22→21:25)
[2022-01-12] MEDS: Furosemide 40 MG TABLET PO (08:22)
[2022-01-12] MEDS: Magnesium Hydrox/Alum Hydrox 30 ML ORAL.SUSP PO (08:43)
[2022-01-12] MEDS: Artificial Tears 15 ML DROPS 2 DROP EYE-BOTH (15:29)
--- NOTE | 2022-01-12 16:08 | HO.PSYCHPN ---
Subjective Subjective Date of Service: 01/12/22 Reason For Visit: psychosis Interim History: calm, cooperative. lying in bed reading. reports he is feeling relatively well. asks his meds be changed so he doesn't get seroquel during the day bcse taking it with klonopin knocked him out all day. aks about D/C. proposes mtg with his sister, to which he agrees. per staff, edema in L/E B/L. eating, sleeping well. reading, writing. SW arranged for mtg with sister wednesday. Mental Status Exam Mental Status Exam Narrative: mostly in his room, dressed in [facility]. behavior is cooperative; adequate hygiene; affect normo-intense, non-labile; Speech incr rate, nml amount, nml loudness. nml prosody, decr latency; thought process more organized today. no delusions expressed. no SI/HI/AVH expressed. Patients insight and judgment are impaired. Diagnostics Vital Signs (24Hr): Vital Signs - 24 hr 01/12/22 00:35 01/12/22 08:17 Temperature 97.6 F 97.5 F Pulse Rate 91 76 Respiratory Rate 18 18 Blood Pressure 138/83 137/85 Pulse Oximetry 95 99 Oxygen Delivery Method Room Air Room Air BMI result Body Mass Index 30.7 Labs Results: 12/29/21 08:55 12/29/21 08:55 Imaging Radiology Impressions: ITS Impressions Venous Duplex 12/19/21 20:16 IMPRESSION: No DVT demonstrated in the bilateral lower extremity. Medications Medications Current Medications Acetaminophen (Acetaminophen 325 Mg Tablet) 650 mg PO Q6H PRN PRN Reason: Headache/Pain Mild Scale (1-3) Last Admin: 12/30/21 18:04 Dose: 650 mg Al Hydroxide/Mg Hydroxide (Magnesium Hydrox/Alum Hydrox 30 Ml Oral.Susp) 30 ml PO Q6H PRN PRN Reason: Heartburn/Nausea Last Admin: 01/12/22 08:43 Dose: 30 ml Albuterol Sulfate (Albuterol Sulfate 90 Mcg 8 Gm Inhaler) 2 puff INHALE Q4H PRN PRN Reason: shortness of breath or wheezing Last Admin: 01/09/22 06:34 Dose: 2 puff Artificial Tears (Artificial Tears 15 Ml Drops) 2 drop EYE-BOTH Q4H PRN PRN Reason: Dry Eyes Last Admin: 01/12/22 15:29 Dose: 2 drop Ascorbic Acid (Ascorbic Acid 250 Mg Tablet) 250 mg PO DAILY DAVY Last Admin: 01/12/22 08:22 Dose: 250 mg Benzocaine (Throat Lozenge, Medicated Lozenge) 1 lozenge MUCOUS MEM Q1H PRN PRN Reason: Sore Throat Last Admin: 12/27/21 06:54 Dose: 1 lozenge Bisacodyl (Bisacodyl 10 Mg Supp.Rect) 10 mg DC BEDTIME PRN PRN Reason: Constipation Last Admin: 12/06/21 21:14 Dose: 10 mg Carbamazepine (Carbamazepine Er 200 Mg Tab.Er.12h) 800 mg PO BEDTIME DAVY Last Admin: 01/12/22 00:39 Dose: 800 mg Carbamazepine (Carbamazepine Er 200 Mg Tab.Er.12h) 800 mg PO DAILY DAVY Last Admin: 01/12/22 08:21 Dose: 800 mg Clonazepam (Clonazepam 1 Mg Tablet) 1 mg PO TID DAVY Last Admin: 01/12/22 13:59 Dose: 1 mg Famotidine (Famotidine 20 Mg Tablet) 20 mg PO BID DAVY Last Admin: 01/12/22 08:22 Dose: 20 mg Fluticasone/Vilanterol (Fluticasone/Vilanterol 100/25 Blst.W.Dev) 1 puff INHALE DAILY DAVY Last Admin: 01/12/22 08:19 Dose: 1 puff Furosemide (Furosemide 40 Mg Tablet) 40 mg PO DAILY DAVY; Protocol Last Admin: 01/12/22 08:22 Dose: 40 mg Guaifenesin (Guaifenesin La 600 Mg Tab.Er.12h) 600 mg PO BID PRN PRN Reason: thick secretions Last Admin: 01/03/22 23:25 Dose: 600 mg Hydroxyzine HCl (Hydroxyzine Hcl 50 Mg Tablet) 50 mg PO Q6H PRN PRN Reason: Anxiety Last Admin: 01/12/22 15:29 Dose: 50 mg Ibuprofen (Ibuprofen 600 Mg Tablet) 600 mg PO Q6H PRN PRN Reason: aches and pains Last Admin: 01/12/22 08:21 Dose: 600 mg Lactic Acid (Ammonium Lactate 12 % Lotion 226 Gm Bottle) 1 appl TOPICAL BID DAVY; Protocol Last Admin: 01/12/22 08:19 Dose: 1 appl Lidocaine/Diphenhydr/Alum/Mg/Simeth (Mag&Al/Sim/Diphenhyd/Lidocaine 10 Ml Oral.Susp) 10 ml PO Q4H PRN; Protocol PRN Reason: oral mucous membrane ulcer jeremiah Last Admin: 12/20/21 02:20 Dose: 10 ml Magnesium Hydroxide (Milk Of Magnesia 30 Ml Oral.Susp) 30 ml PO DAILY PRN PRN Reason: Constipation Last Admin: 01/04/22 14:27 Dose: 30 ml Nicotine Polacrilex (Nicotine Polacrilex 2 Mg Gum) 4 mg BUCCAL Q1H PRN PRN Reason: Nicotine Cravings Last Admin: 01/12/22 15:29 Dose: 4 mg Olanzapine (Olanzapine Odt 10 Mg Tab.Rapdis) 40 mg TRANSLINGU BEDTIME DAVY Last Admin: 01/12/22 00:40 Dose: 40 mg Perphenazine (Perphenazine 8 Mg Tablet) 16 mg PO TID DAVY Last Admin: 01/12/22 13:59 Dose: 16 mg Prazosin HCl (Prazosin Hcl 1 Mg Capsule) 2 mg PO BEDTIME DAVY; Protocol Last Admin: 01/12/22 00:40 Dose: 2 mg Psyllium Hydrophilic Mucilloid (Psyllium Seed 3.4 Gm Powd.Pack) 3.4 gm PO BID DAVY Last Admin: 01/12/22 08:19 Dose: 3.4 gm Quetiapine Fumarate (Quetiapine Fumarate 200 Mg Tablet) 200 mg PO Q2H PRN PRN Reason: insomnia/agitation Last Admin: 01/11/22 08:31 Dose: 200 mg Simethicone (Simethicone 80 Mg Tab.Chew) 80 mg PO QIDWMHS PRN PRN Reason: flatulence Last Admin: 12/20/21 22:49 Dose: 80 mg Tamsulosin HCl (Tamsulosin Hcl 0.4 Mg Capsule) 0.4 mg PO BEDTIME DAVY Last Admin: 01/12/22 00:39 Dose: 0.4 mg Trazodone HCl (Trazodone Hcl 50 Mg Tablet) 150 mg PO BEDTIME DAVY Last Admin: 01/12/22 00:39 Dose: 150 mg Trazodone HCl (Trazodone Hcl 50 Mg Tablet) 50 mg PO BEDTIME PRN PRN Reason: Insomnia Last Admin: 01/08/22 22:47 Dose: 50 mg Vitamin E (Vitamin E (Dl,Tocopheryl Acet) 180 Mg (400 Unit) Capsule) 180 mg PO BID DAVY Last Admin: 01/12/22 08:22 Dose: 180 mg Allergies Allergies Allergy/AdvReac Type Severity Reaction Status Date / Time divalproex sodium Allergy Severe PANCREATITI Verified 11/24/21 14:34 [From DEPAKOTE] S haloperidol [From Haldol] Allergy Intermediate DYSTONIC Verified 11/24/21 14:34 REACTION Assessment & Plan Assessment & Plan (1) Schizoaffective disorder: Status: Acute Code(s): F25.9 - Schizoaffective disorder, unspecified (2) Cellulitis: Status: Acute Code(s): L03.90 - Cellulitis, unspecified Assessment and Plan: 51yo M with COPD, HLD, obesity, BPH, ex-smoker, bipolar-type schizoaffective disorder admitted to [facility]. Developed infection of R foot yesterday as well as symptomatic Covid-19 infection without hypoxia. # nonpurulent cellulitis - doxycycline x7d. no need for blood culture. monitor clinically for improvement. (3) COVID-19: Status: Acute Code(s): U07.1 - COVID-19 Assessment and Plan: 51yo M with COPD, HLD, obesity, BPH, ex-smoker, bipolar-type schizoaffective disorder admitted to [facility]. Developed infection of R foot yesterday as well as symptomatic Covid-19 infection without hypoxia. # Covid-19 infection - not hypoxic; no steroids indicated. Paxlovid contraindicated by use of carbamezapine. can give 3 days of IV remdesivir as alternative. Monitor SaO2 qshift. beginning 12/20/21, isolation x5d then mask-wearing x5d Plan 12/03: continue home meds for now. CV rejected as pt unable to appreciate the circumstances of his admission. will need commitment and benedicto's order. T/C restarting clozaril and lithium, on which pt did well for many years, reportedly. tegretol increased from 400 BID to 600 BID at admission. 12/04: klonopin 0.5/0.5/1 reinstated 12/04 (outpt provider had started it 11/25 at 1 mg TID). magic mouthwash started for oral ulcers. 12/05: slept well last night, still pressured and disorganized.? continue current mgmt. 12/08: 12b up, applied for commitment and meds.? making sexually inappropriate comments/suggestions to staff, threatening violence and toward male peer. 12/09: same presentation as yesterday.? started lithium 450 mg BID today. 12/10: no change in presentation, compliant with lithium. 12/11: DC prazosin to see if B/L pedal edema decreases.? DC pravachol as pt is refusing it.? order lac-hydrin for plantar fissure.? otherwise continue previous mgmt.? perhaps slight decrease in pressure and disorganization. 12/12: pedal edema no worse, perhaps better.? no GI side effects from lithium.? fissure looks improved with cream.? check lithium, tegretol, associated labs on wednesday (ordered).? titrate lithium as indicated. 12/13 pt manic, disorganized, intrusive, blaming, threatening (told selling underwriter someone would come over and break his neck) -consider switching to Zyprexa from seroquel 12/14 her is manic, intrusive irritable, grandiose [place] level subtherapeutic; however patient is very anxious about this medication causing side effects and at this time selling underwriter thinks it might be better to leave it is current dose since patient continues to take it and trying to increase it may very well cause him to refuse it altogether; he is also on Tegretol.? Perhaps switching antipsychotics to Zyprexa is warranted.? Patient says he has never taken Zyprexa before.? Patient typically knows his medication history however usually when someone gets on clozapine it is because most other medications have not worked.? [place] has just reached at steady state so will hold off making medication adjustments right now to see if there can be any further benefit observed from currently lithium dose and medication regimen. 12/15 no change; clonazepam at started off and was not restarted.? Patient did take p.o. laxatives and had a bowel movement says he feels better. 12/16:? increase tegretol from 600 BID to 600/800 tonight, as level around 7.? lithium sub-therapeutic but pt resistant to increase, will see how much better he can get on higher tegretol dosing.? T/C switching anti-psychotic to zyprexa, as pt has done well on clozaril in the past.? TEDs obtained for pedal edema. 12/17: no change in mgmt.? presentation not substantially changed.? some agitation today. 12/18: presentation essentially unchanged.? no agitation today, sleeping late morning. 12/19: Assessed for pedal edema, spoke with hospitalist, BNP, BMP wnl, venous doppler wnl. Per hospitalist, continue with TEDs, may consider low dose lasix. 12/20: stable presentation.? continue current mgmt.? check tegretol level about a week after dose increase.? trending more calm than earlier in his stay but remains very psychotic.? T/C trial of olanzapine. 12/21:? taper and DC lithium and it appears to be having unsustainable physical side effects (B/L LE edema, now possibly with cellulitis).? also tested COVID POS today, satting mid 902 on RA.? hospitalist consult placed for eval of COVID severity and R/O cellulitis.? T/C olanzapine trial once lithium has been DCed. 12/22: stable, appears medically better than yesterday. continue lithium taper, to 150 BID tonight and tomorrow morning. start ibuprofen for better pain control with COVID. continue antibiotic and antiviral. 12/24 continue current tx. O2 sat >93, no s/s of respiratory distress. afebrile. 12/25: course of remdesivir complete, doxy ongoing. rash has not spread, likely related to edema and dependent limbs. less purpuric and more pinpoint red with bruising. edema improved. c/o productive cough, expectorant Rx'ed. otherwise continue current mgmt. per CDC guidelines, persons with moderate COVID (which includes having oxygen saturation less than 94%) should isolate for 10 days. 12/26: stable, in quarantine day #6 of . continue current mgmt. check labs on wednesday morning. 12/27: Continue current regimen and plans. Continue quarantine. 12/28: Continue current plans and regimen 12/29: increasingly disorganized and hyperverbal since DC of lithium. B/L pedal edema dose seem to be improving. day #9 of quarantine. tegretol level 8, other labs unremarkable aside from anemia. 12/30: obsessively scrubbing floor overnight, up all NOC. sleeping during day. more disorganized, hyperverbal. DC seroquel and start olanzapine 30 mg QHS. seroquel 200 mg PRNs for insomnia. 12/31: c/o persisting edema. perhaps lithium is not the largest offender; the only other change has been increasing tegretol dosing (edema identified as a side effect only in post-marketing, frequency not provided by update). lasix 20 mg one time tomorrow morning. otherwise continue current mgmt. slept well last night with zyprexa at HS. 01/01: slept 3 hours overnight. give lasix 40 mg daily x 3 days as 20 mg dose this morning was not effective. pedal edema remains below the ankle. continue current mgmt otherwise. 01/02: continues to have only several hours of sleep at night. reports good diuresis on lasix 40. continue to monitor pedal edema and efficacy of olanzapine + tegretol (and perphenazine) regimen. 01/03 continue current plan. 01/04 continue tx. 01/05: no change to Tx plan. 01/06: increase zyprexa to 40 mg at HS, restart lasix 20 mg daily for pedal edema. trending more organized and less pressured, but by no means well. 01/07: continues to appear less pressured and more organized. paranoia persists. 01/08: more disorganized and pressured today. met with new [facility] mtg next wednesday. lasix increased to 40 mg to combat edema. 01/09: sleeping day shift. reportedly slept 5 hours last night. no change in presentation otherwise. continue current mgmt. 01/10/Continue treatment plan including HOLD on scheduled seroquel 01/11 Contnue current treatment plan 01/12: continue current mgmt. more calm and organized today than last week. mtg with sister tuesday 01/16. I spent ___25___ minutes with the patient and/or on the patient floor today, greater than?50% of which was spent counseling/coordinating care. Reason for contiued inpatient stay Substantial Risk for: inability to function and rapid decompensation
[2022-01-12 20:45] VITALS: BP 130/73; PULSE 74; RESP 18; TEMP 36.2; O2SAT 99
[2022-01-12] MEDS: QUEtiapine Fumarate 200 MG TABLET PO (21:24)
[2022-01-13] MEDS: Nicotine Polacrilex 2 MG GUM 4 MG BUCCAL ×12 (01:11→20:32)
[2022-01-13] MEDS: carBAMazepine ER 200 MG TAB.ER.12H 800 MG PO ×2 (08:07→21:16)
[2022-01-13] MEDS: Vitamin E (Dl,Tocopheryl Acet) 180 MG (400 UNIT) CAPSULE PO ×2 (08:08→21:17)
[2022-01-13] MEDS: Furosemide 40 MG TABLET PO (08:08)
[2022-01-13] MEDS: Ascorbic Acid 250 MG TABLET PO (08:08)
[2022-01-13] MEDS: Famotidine 20 MG TABLET PO ×2 (08:08→21:17)
[2022-01-13] MEDS: Perphenazine 8 MG TABLET 16 MG PO ×3 (08:08→21:16)
[2022-01-13] MEDS: clonazePAM 1 MG TABLET PO ×3 (08:09→21:16)
[2022-01-13] MEDS: Ammonium Lactate 12 % Lotion 226 GM BOTTLE 1 APPL TOPICAL ×2 (08:13→22:14)
[2022-01-13] MEDS: Fluticasone/Vilanterol 100/25 BLST.W.DEV 1 PUFF INHALE (08:13)
[2022-01-13 08:15] VITALS: BP 127/76; PULSE 77; RESP 18; TEMP 36.8; O2SAT 100
--- NOTE | 2022-01-13 16:25 | HO.PSYCHPN ---
Subjective Subjective Date of Service: 01/13/22 Reason For Visit: psychosis Interim History: pt is calm and cooperative. rapid and dysarthric speech makes him a bit difficult to understand. defensive, initially states he will not do GINNA bcse he feels MD is trying to prove he is unable to live on his own. MD assures him it is to do the opposite - to prove that he CAN live on his own. he states he will do it. MD informs pt of visit from sister scheduled for this wednesday, pt has no objections. pt spontaneously describes a recent conflict with a peer that arose from a misunderstanding and which he was able to work out satisfactorily directly with the peer. per staff, pedal edema improving. med and meal compliant. loose, no SI/HI. slept most of 7 hours overnight. reading in his room. head-banging this morning to music. Mental Status Exam Mental Status Exam Narrative: dressed in street clothes. behavior is cooperative; adequate hygiene; affect normo-intense, non-labile, somewhat defensive/irritable; Speech incr rate, nml amount, nml loudness. nml prosody, decr latency; thought process more organized today. no delusions expressed. no SI/HI/AVH expressed. Patients insight and judgment are impaired. Diagnostics Vital Signs (24Hr): Vital Signs - 24 hr 01/12/22 20:45 01/13/22 08:15 Temperature 97.1 F 98.2 F Pulse Rate 74 77 Respiratory Rate 18 18 Blood Pressure 130/73 127/76 Pulse Oximetry 99 100 Oxygen Delivery Method Room Air Room Air BMI result Body Mass Index 30.7 Labs Results: 12/29/21 08:55 12/29/21 08:55 Imaging Radiology Impressions: ITS Impressions Venous Duplex 12/19/21 20:16 IMPRESSION: No DVT demonstrated in the bilateral lower extremity. Medications Medications Current Medications Acetaminophen (Acetaminophen 325 Mg Tablet) 650 mg PO Q6H PRN PRN Reason: Headache/Pain Mild Scale (1-3) Last Admin: 12/30/21 18:04 Dose: 650 mg Al Hydroxide/Mg Hydroxide (Magnesium Hydrox/Alum Hydrox 30 Ml Oral.Susp) 30 ml PO Q6H PRN PRN Reason: Heartburn/Nausea Last Admin: 01/12/22 08:43 Dose: 30 ml Albuterol Sulfate (Albuterol Sulfate 90 Mcg 8 Gm Inhaler) 2 puff INHALE Q4H PRN PRN Reason: shortness of breath or wheezing Last Admin: 01/09/22 06:34 Dose: 2 puff Artificial Tears (Artificial Tears 15 Ml Drops) 2 drop EYE-BOTH Q4H PRN PRN Reason: Dry Eyes Last Admin: 01/12/22 15:29 Dose: 2 drop Ascorbic Acid (Ascorbic Acid 250 Mg Tablet) 250 mg PO DAILY [facility] Last Admin: 01/13/22 08:08 Dose: 250 mg Benzocaine (Throat Lozenge, Medicated Lozenge) 1 lozenge MUCOUS MEM Q1H PRN PRN Reason: Sore Throat Last Admin: 12/27/21 06:54 Dose: 1 lozenge Bisacodyl (Bisacodyl 10 Mg Supp.Rect) 10 mg OK BEDTIME PRN PRN Reason: Constipation Last Admin: 12/06/21 21:14 Dose: 10 mg Carbamazepine (Carbamazepine Er 200 Mg Tab.Er.12h) 800 mg PO BEDTIME [facility] Last Admin: 01/12/22 21:25 Dose: 800 mg Carbamazepine (Carbamazepine Er 200 Mg Tab.Er.12h) 800 mg PO DAILY [facility] Last Admin: 01/13/22 08:07 Dose: 800 mg Clonazepam (Clonazepam 1 Mg Tablet) 1 mg PO TID [facility] Last Admin: 01/13/22 15:13 Dose: 1 mg Famotidine (Famotidine 20 Mg Tablet) 20 mg PO BID [facility] Last Admin: 01/13/22 08:08 Dose: 20 mg Fluticasone/Vilanterol (Fluticasone/Vilanterol 100/25 Blst.W.Dev) 1 puff INHALE DAILY [facility] Last Admin: 01/13/22 08:13 Dose: 1 puff Furosemide (Furosemide 40 Mg Tablet) 40 mg PO DAILY [facility]; Protocol Last Admin: 01/13/22 08:08 Dose: 40 mg Guaifenesin (Guaifenesin La 600 Mg Tab.Er.12h) 600 mg PO BID PRN PRN Reason: thick secretions Last Admin: 01/03/22 23:25 Dose: 600 mg Hydroxyzine HCl (Hydroxyzine Hcl 50 Mg Tablet) 50 mg PO Q6H PRN PRN Reason: Anxiety Last Admin: 01/12/22 21:25 Dose: 50 mg Ibuprofen (Ibuprofen 600 Mg Tablet) 600 mg PO Q6H PRN PRN Reason: aches and pains Last Admin: 01/12/22 21:44 Dose: 600 mg Lactic Acid (Ammonium Lactate 12 % Lotion 226 Gm Bottle) 1 appl TOPICAL BID [facility]Y; Protocol Last Admin: 01/13/22 08:13 Dose: 1 appl Lidocaine/Diphenhydr/Alum/Mg/Simeth (Mag&Al/Sim/Diphenhyd/Lidocaine 10 Ml Oral.Susp) 10 ml PO Q4H PRN; Protocol PRN Reason: oral mucous membrane ulcer jeremiah Last Admin: 12/20/21 02:20 Dose: 10 ml Magnesium Hydroxide (Milk Of Magnesia 30 Ml Oral.Susp) 30 ml PO DAILY PRN PRN Reason: Constipation Last Admin: 01/04/22 14:27 Dose: 30 ml Nicotine Polacrilex (Nicotine Polacrilex 2 Mg Gum) 4 mg BUCCAL Q1H PRN PRN Reason: Nicotine Cravings Last Admin: 01/13/22 15:26 Dose: 4 mg Olanzapine (Olanzapine Odt 10 Mg Tab.Rapdis) 40 mg TRANSLINGU BEDTIME [facility] Last Admin: 01/12/22 21:25 Dose: 40 mg Perphenazine (Perphenazine 8 Mg Tablet) 16 mg PO TID [facility] Last Admin: 01/13/22 15:13 Dose: 16 mg Prazosin HCl (Prazosin Hcl 1 Mg Capsule) 2 mg PO BEDTIME [facility]; Protocol Last Admin: 01/12/22 21:24 Dose: 2 mg Psyllium Hydrophilic Mucilloid (Psyllium Seed 3.4 Gm Powd.Pack) 3.4 gm PO BID [facility] Last Admin: 01/13/22 08:07 Dose: 3.4 gm Quetiapine Fumarate (Quetiapine Fumarate 200 Mg Tablet) 200 mg PO Q2H PRN PRN Reason: insomnia/agitation Last Admin: 01/12/22 21:24 Dose: 200 mg Simethicone (Simethicone 80 Mg Tab.Chew) 80 mg PO QIDWMHS PRN PRN Reason: flatulence Last Admin: 12/20/21 22:49 Dose: 80 mg Tamsulosin HCl (Tamsulosin Hcl 0.4 Mg Capsule) 0.4 mg PO BEDTIME [facility] Last Admin: 01/12/22 21:25 Dose: 0.4 mg Trazodone HCl (Trazodone Hcl 50 Mg Tablet) 150 mg PO BEDTIME [facility] Last Admin: 01/12/22 21:24 Dose: 150 mg Trazodone HCl (Trazodone Hcl 50 Mg Tablet) 50 mg PO BEDTIME PRN PRN Reason: Insomnia Last Admin: 01/08/22 22:47 Dose: 50 mg Vitamin E (Vitamin E (Dl,Tocopheryl Acet) 180 Mg (400 Unit) Capsule) 180 mg PO BID [facility] Last Admin: 01/13/22 08:08 Dose: 180 mg Allergies Allergies Allergy/AdvReac Type Severity Reaction Status Date / Time divalproex sodium Allergy Severe PANCREATITI Verified 11/24/21 14:34 [From DEPAKOTE] S haloperidol [From Haldol] Allergy Intermediate DYSTONIC Verified 11/24/21 14:34 REACTION Assessment & Plan Assessment & Plan (1) Schizoaffective disorder: Status: Acute Code(s): F25.9 - Schizoaffective disorder, unspecified (2) Cellulitis: Status: Acute Code(s): L03.90 - Cellulitis, unspecified Assessment and Plan: 51yo M with COPD, HLD, obesity, BPH, ex-smoker, bipolar-type schizoaffective disorder admitted to [facility]. Developed infection of R foot yesterday as well as symptomatic Covid-19 infection without hypoxia. # nonpurulent cellulitis - doxycycline x7d. no need for blood culture. monitor clinically for improvement. (3) COVID-19: Status: Acute Code(s): U07.1 - COVID-19 Assessment and Plan: 51yo M with COPD, HLD, obesity, BPH, ex-smoker, bipolar-type schizoaffective disorder admitted to [facility]. Developed infection of R foot yesterday as well as symptomatic Covid-19 infection without hypoxia. # Covid-19 infection - not hypoxic; no steroids indicated. Paxlovid contraindicated by use of carbamezapine. can give 3 days of IV remdesivir as alternative. Monitor SaO2 qshift. beginning 12/20/21, isolation x5d then mask-wearing x5d Plan 12/03: continue home meds for now. CV rejected as pt unable to appreciate the circumstances of his admission. will need commitment and benedicto's order. T/C restarting clozaril and lithium, on which pt did well for many years, reportedly. tegretol increased from 400 BID to 600 BID at admission. 12/04: klonopin 0.5/0.5/1 reinstated 12/04 (outpt provider had started it 11/25 at 1 mg TID). magic mouthwash started for oral ulcers. 12/05: slept well last night, still pressured and disorganized.? continue current mgmt. 12/08: 12b up, applied for commitment and meds.? making sexually inappropriate comments/suggestions to staff, threatening violence and toward male peer. 12/09: same presentation as yesterday.? started lithium 450 mg BID today. 12/10: no change in presentation, compliant with lithium. 12/11: DC prazosin to see if B/L pedal edema decreases.? DC pravachol as pt is refusing it.? order lac-hydrin for plantar fissure.? otherwise continue previous mgmt.? perhaps slight decrease in pressure and disorganization. 12/12: pedal edema no worse, perhaps better.? no GI side effects from lithium.? fissure looks improved with cream.? check lithium, tegretol, associated labs on wednesday (ordered).? titrate lithium as indicated. 12/13 pt manic, disorganized, intrusive, blaming, threatening (told keno writer/runner someone would come over and break his neck) -consider switching to Zyprexa from seroquel 12/14 her is manic, intrusive irritable, grandiose [place] level subtherapeutic; however patient is very anxious about this medication causing side effects and at this time keno writer/runner thinks it might be better to leave it is current dose since patient continues to take it and trying to increase it may very well cause him to refuse it altogether; he is also on Tegretol.? Perhaps switching antipsychotics to Zyprexa is warranted.? Patient says he has never taken Zyprexa before.? Patient typically knows his medication history however usually when someone gets on clozapine it is because most other medications have not worked.? [place] has just reached at steady state so will hold off making medication adjustments right now to see if there can be any further benefit observed from currently lithium dose and medication regimen. 12/15 no change; clonazepam at started off and was not restarted.? Patient did take p.o. laxatives and had a bowel movement says he feels better. 12/16:? increase tegretol from 600 BID to 600/800 tonight, as level around 7.? lithium sub-therapeutic but pt resistant to increase, will see how much better he can get on higher tegretol dosing.? T/C switching anti-psychotic to zyprexa, as pt has done well on clozaril in the past.? TEDs obtained for pedal edema. 12/17: no change in mgmt.? presentation not substantially changed.? some agitation today. 12/18: presentation essentially unchanged.? no agitation today, sleeping late morning. 12/19: Assessed for pedal edema, spoke with hospitalist, BNP, BMP wnl, venous doppler wnl. Per hospitalist, continue with TEDs, may consider low dose lasix. 12/20: stable presentation.? continue current mgmt.? check tegretol level about a week after dose increase.? trending more calm than earlier in his stay but remains very psychotic.? T/C trial of olanzapine. 12/21:? taper and DC lithium and it appears to be having unsustainable physical side effects (B/L LE edema, now possibly with cellulitis).? also tested COVID POS today, satting mid 902 on RA.? hospitalist consult placed for eval of COVID severity and R/O cellulitis.? T/C olanzapine trial once lithium has been DCed. 12/22: stable, appears medically better than yesterday. continue lithium taper, to 150 BID tonight and tomorrow morning. start ibuprofen for better pain control with COVID. continue antibiotic and antiviral. 12/24 continue current tx. O2 sat >93, no s/s of respiratory distress. afebrile. 12/25: course of remdesivir complete, doxy ongoing. rash has not spread, likely related to edema and dependent limbs. less purpuric and more pinpoint red with bruising. edema improved. c/o productive cough, expectorant Rx'ed. otherwise continue current mgmt. per CDC guidelines, persons with moderate COVID (which includes having oxygen saturation less than 94%) should isolate for 10 days. 12/26: stable, in quarantine day #6 of . continue current mgmt. check labs on wednesday morning. 12/27: Continue current regimen and plans. Continue quarantine. 12/28: Continue current plans and regimen 12/29: increasingly disorganized and hyperverbal since DC of lithium. B/L pedal edema dose seem to be improving. day #9 of quarantine. tegretol level 8, other labs unremarkable aside from anemia. 12/30: obsessively scrubbing floor overnight, up all NOC. sleeping during day. more disorganized, hyperverbal. DC seroquel and start olanzapine 30 mg QHS. seroquel 200 mg PRNs for insomnia. 12/31: c/o persisting edema. perhaps lithium is not the largest offender; the only other change has been increasing tegretol dosing (edema identified as a side effect only in post-marketing, frequency not provided by update). lasix 20 mg one time tomorrow morning. otherwise continue current mgmt. slept well last night with zyprexa at HS. 01/01: slept 3 hours overnight. give lasix 40 mg daily x 3 days as 20 mg dose this morning was not effective. pedal edema remains below the ankle. continue current mgmt otherwise. 01/02: continues to have only several hours of sleep at night. reports good diuresis on lasix 40. continue to monitor pedal edema and efficacy of olanzapine + tegretol (and perphenazine) regimen. 01/03 continue current plan. 01/04 continue tx. 01/05: no change to Tx plan. 01/06: increase zyprexa to 40 mg at HS, restart lasix 20 mg daily for pedal edema. trending more organized and less pressured, but by no means well. 01/07: continues to appear less pressured and more organized. paranoia persists. 01/08: more disorganized and pressured today. met with new RENEE. [facility] mtg next wednesday. lasix increased to 40 mg to combat edema. 01/09: sleeping day shift. reportedly slept 5 hours last night. no change in presentation otherwise. continue current mgmt. 01/10/Continue treatment plan including HOLD on scheduled seroquel 01/11 Contnue current treatment plan 01/12: continue current mgmt. more calm and organized today than last week. mtg with sister tuesday 01/16. 01/13: continue current mgmt. continues more organized and calm. pursuing GINNA. I spent ___25___ minutes with the patient and/or on the patient floor today, greater than?50% of which was spent counseling/coordinating care. Reason for contiued inpatient stay Substantial Risk for: inability to function and rapid decompensation
[2022-01-13 20:55] VITALS: BP 113/72; PULSE 97; TEMP 36.1; O2SAT 100
[2022-01-13] MEDS: OLANZapine ODT 10 MG TAB.RAPDIS 40 MG TRANSLINGU (21:15)
[2022-01-13] MEDS: traZODone HCL 50 MG TABLET 150 MG PO (21:15)
[2022-01-13] MEDS: QUEtiapine Fumarate 200 MG TABLET PO (21:16)
[2022-01-13] MEDS: hydrOXYzine HCL 50 MG TABLET PO (21:16)
[2022-01-13] MEDS: Prazosin HCL 1 MG CAPSULE 2 MG PO (21:16)
[2022-01-13] MEDS: Tamsulosin HCL 0.4 MG CAPSULE PO (21:17)
[2022-01-14] MEDS: Nicotine Polacrilex 2 MG GUM 4 MG BUCCAL ×12 (04:22→23:35)
[2022-01-14 08:10] VITALS: BP 137/69; PULSE 84; RESP 18; TEMP 36.7; O2SAT 98
[2022-01-14] MEDS: Vitamin E (Dl,Tocopheryl Acet) 180 MG (400 UNIT) CAPSULE PO ×2 (08:13→21:07)
[2022-01-14] MEDS: Furosemide 40 MG TABLET PO (08:14)
[2022-01-14] MEDS: Ascorbic Acid 250 MG TABLET PO (08:14)
[2022-01-14] MEDS: Famotidine 20 MG TABLET PO ×2 (08:14→21:08)
[2022-01-14] MEDS: carBAMazepine ER 200 MG TAB.ER.12H 800 MG PO ×2 (08:14→21:05)
[2022-01-14] MEDS: clonazePAM 1 MG TABLET PO ×3 (08:14→21:09)
[2022-01-14] MEDS: Ammonium Lactate 12 % Lotion 226 GM BOTTLE 1 APPL TOPICAL (08:16)
[2022-01-14] MEDS: Fluticasone/Vilanterol 100/25 BLST.W.DEV 1 PUFF INHALE (08:16)
[2022-01-14] MEDS: Perphenazine 8 MG TABLET 16 MG PO ×3 (08:16→21:06)
--- NOTE | 2022-01-14 15:03 | P.PNPSI_ITS ---
Subjective Subjective Date of Service: 01/14/22 Reason For Visit: psychosis Interim History: calm, cooperative. rapid, dysarthric speech. linear and logical as far as could be ascertained, however, and germane to present circumstances. states he took seroquel and klonopin last night and slept very well. per staff, visible, talkative. attending groups. spinning in the hernández. pleasant. reading, eating. slept 10:30 through 0500. Mental Status Exam Mental Status Exam Narrative: dressed in street clothes. behavior is cooperative; adequate hygiene; affect normo-intense, non-labile; Speech incr rate, nml amount, nml loudness. nml prosody, decr latency; thought process more organized today. no delusions expressed. no SI/HI/AVH expressed. Patients insight and judgment are impaired. Diagnostics Vital Signs (24Hr): Vital Signs - 24 hr 01/13/22 20:55 01/14/22 08:10 Temperature 97.0 F 98.0 F Pulse Rate 97 84 Respiratory Rate 18 Blood Pressure 113/72 137/69 Pulse Oximetry 100 98 Oxygen Delivery Method Room Air Room Air BMI result Body Mass Index 30.7 Labs Results: 12/29/21 08:55 12/29/21 08:55 Imaging Radiology Impressions: ITS Impressions Venous Duplex 12/19/21 20:16 IMPRESSION: No DVT demonstrated in the bilateral lower extremity. Medications Medications Current Medications Acetaminophen (Acetaminophen 325 Mg Tablet) 650 mg PO Q6H PRN PRN Reason: Headache/Pain Mild Scale (1-3) Last Admin: 12/30/21 18:04 Dose: 650 mg Al Hydroxide/Mg Hydroxide (Magnesium Hydrox/Alum Hydrox 30 Ml Oral.Susp) 30 ml PO Q6H PRN PRN Reason: Heartburn/Nausea Last Admin: 01/12/22 08:43 Dose: 30 ml Albuterol Sulfate (Albuterol Sulfate 90 Mcg 8 Gm Inhaler) 2 puff INHALE Q4H PRN PRN Reason: shortness of breath or wheezing Last Admin: 01/09/22 06:34 Dose: 2 puff Artificial Tears (Artificial Tears 15 Ml Drops) 2 drop EYE-BOTH Q4H PRN PRN Reason: Dry Eyes Last Admin: 01/12/22 15:29 Dose: 2 drop Ascorbic Acid (Ascorbic Acid 250 Mg Tablet) 250 mg PO DAILY DAVY Last Admin: 01/14/22 08:14 Dose: 250 mg Benzocaine (Throat Lozenge, Medicated Lozenge) 1 lozenge MUCOUS MEM Q1H PRN PRN Reason: Sore Throat Last Admin: 12/27/21 06:54 Dose: 1 lozenge Bisacodyl (Bisacodyl 10 Mg Supp.Rect) 10 mg HI BEDTIME PRN PRN Reason: Constipation Last Admin: 12/06/21 21:14 Dose: 10 mg Carbamazepine (Carbamazepine Er 200 Mg Tab.Er.12h) 800 mg PO BEDTIME DAVY Last Admin: 01/13/22 21:16 Dose: 800 mg Carbamazepine (Carbamazepine Er 200 Mg Tab.Er.12h) 800 mg PO DAILY DAVY Last Admin: 01/14/22 08:14 Dose: 800 mg Clonazepam (Clonazepam 1 Mg Tablet) 1 mg PO TID DAVY Last Admin: 01/14/22 15:00 Dose: 1 mg Famotidine (Famotidine 20 Mg Tablet) 20 mg PO BID [facility] Last Admin: 01/14/22 08:14 Dose: 20 mg Fluticasone/Vilanterol (Fluticasone/Vilanterol 100/25 Blst.W.Dev) 1 puff INHALE DAILY [facility] Last Admin: 01/14/22 08:16 Dose: 1 puff Furosemide (Furosemide 40 Mg Tablet) 40 mg PO DAILY [facility]; Protocol Last Admin: 01/14/22 08:14 Dose: 40 mg Guaifenesin (Guaifenesin La 600 Mg Tab.Er.12h) 600 mg PO BID PRN PRN Reason: thick secretions Last Admin: 01/03/22 23:25 Dose: 600 mg Hydroxyzine HCl (Hydroxyzine Hcl 50 Mg Tablet) 50 mg PO Q6H PRN PRN Reason: Anxiety Last Admin: 01/13/22 21:16 Dose: 50 mg Ibuprofen (Ibuprofen 600 Mg Tablet) 600 mg PO Q6H PRN PRN Reason: aches and pains Last Admin: 01/12/22 21:44 Dose: 600 mg Lactic Acid (Ammonium Lactate 12 % Lotion 226 Gm Bottle) 1 appl TOPICAL BID DAVY; Protocol Last Admin: 01/14/22 08:16 Dose: 1 appl Lidocaine/Diphenhydr/Alum/Mg/Simeth (Mag&Al/Sim/Diphenhyd/Lidocaine 10 Ml Oral.Susp) 10 ml PO Q4H PRN; Protocol PRN Reason: oral mucous membrane ulcer jeremiah Last Admin: 12/20/21 02:20 Dose: 10 ml Magnesium Hydroxide (Milk Of Magnesia 30 Ml Oral.Susp) 30 ml PO DAILY PRN PRN Reason: Constipation Last Admin: 01/04/22 14:27 Dose: 30 ml Nicotine Polacrilex (Nicotine Polacrilex 2 Mg Gum) 4 mg BUCCAL Q1H PRN PRN Reason: Nicotine Cravings Last Admin: 01/14/22 15:00 Dose: 4 mg Olanzapine (Olanzapine Odt 10 Mg Tab.Rapdis) 40 mg TRANSLINGU BEDTIME DAVY Last Admin: 01/13/22 21:15 Dose: 40 mg Perphenazine (Perphenazine 8 Mg Tablet) 16 mg PO TID DAVY Last Admin: 01/14/22 15:00 Dose: 16 mg Prazosin HCl (Prazosin Hcl 1 Mg Capsule) 2 mg PO BEDTIME DAVY; Protocol Last Admin: 01/13/22 21:16 Dose: 2 mg Psyllium Hydrophilic Mucilloid (Psyllium Seed 3.4 Gm Powd.Pack) 3.4 gm PO BID DAVY Last Admin: 01/14/22 08:14 Dose: 3.4 gm Quetiapine Fumarate (Quetiapine Fumarate 200 Mg Tablet) 200 mg PO Q2H PRN PRN Reason: insomnia/agitation Last Admin: 01/13/22 21:16 Dose: 200 mg Simethicone (Simethicone 80 Mg Tab.Chew) 80 mg PO QIDWMHS PRN PRN Reason: flatulence Last Admin: 12/20/21 22:49 Dose: 80 mg Tamsulosin HCl (Tamsulosin Hcl 0.4 Mg Capsule) 0.4 mg PO BEDTIME DAVY Last Admin: 01/13/22 21:17 Dose: 0.4 mg Trazodone HCl (Trazodone Hcl 50 Mg Tablet) 150 mg PO BEDTIME DAVY Last Admin: 01/13/22 21:15 Dose: 150 mg Trazodone HCl (Trazodone Hcl 50 Mg Tablet) 50 mg PO BEDTIME PRN PRN Reason: Insomnia Last Admin: 01/08/22 22:47 Dose: 50 mg Vitamin E (Vitamin E (Dl,Tocopheryl Acet) 180 Mg (400 Unit) Capsule) 180 mg PO BID DAVY Last Admin: 01/14/22 08:13 Dose: 180 mg Allergies Allergies Allergy/AdvReac Type Severity Reaction Status Date / Time divalproex sodium Allergy Severe PANCREATITI Verified 11/24/21 14:34 [From DEPAKOTE] S haloperidol [From Haldol] Allergy Intermediate DYSTONIC Verified 11/24/21 14:34 REACTION Assessment & Plan Assessment & Plan (1) Schizoaffective disorder: Status: Acute Code(s): F25.9 - Schizoaffective disorder, unspecified (2) Cellulitis: Status: Acute Code(s): L03.90 - Cellulitis, unspecified Assessment and Plan: 51yo M with COPD, HLD, obesity, BPH, ex-smoker, bipolar-type schizoaffective disorder admitted to [facility]. Developed infection of R foot yesterday as well as symptomatic Covid-19 infection without hypoxia. # nonpurulent cellulitis - doxycycline x7d. no need for blood culture. monitor clinically for improvement. (3) COVID-19: Status: Acute Code(s): U07.1 - COVID-19 Assessment and Plan: 51yo M with COPD, HLD, obesity, BPH, ex-smoker, bipolar-type schizoaffective disorder admitted to [facility]. Developed infection of R foot yesterday as well as symptomatic Covid-19 infection without hypoxia. # Covid-19 infection - not hypoxic; no steroids indicated. Paxlovid contraindicated by use of carbamezapine. can give 3 days of IV remdesivir as alternative. Monitor SaO2 qshift. beginning 12/20/21, isolation x5d then mask-wearing x5d Plan 12/03: continue home meds for now. CV rejected as pt unable to appreciate the circumstances of his admission. will need commitment and benedicto's order. T/C restarting clozaril and lithium, on which pt did well for many years, reportedly. tegretol increased from 400 BID to 600 BID at admission. 12/04: klonopin 0.5/0.5/1 reinstated 12/04 (outpt provider had started it 11/25 at 1 mg TID). magic mouthwash started for oral ulcers. 12/05: slept well last night, still pressured and disorganized.? continue current mgmt. 10/3: 12b up, applied for commitment and meds.? making sexually inappropriate comments/suggestions to staff, threatening violence and toward male peer. 12/09: same presentation as yesterday.? started lithium 450 mg BID today. 12/10: no change in presentation, compliant with lithium. 12/11: DC prazosin to see if B/L pedal edema decreases.? DC pravachol as pt is refusing it.? order lac-hydrin for plantar fissure.? otherwise continue previous mgmt.? perhaps slight decrease in pressure and disorganization. 12/12: pedal edema no worse, perhaps better.? no GI side effects from lithium.? fissure looks improved with cream.? check lithium, tegretol, associated labs on wednesday (ordered).? titrate lithium as indicated. 12/13 pt manic, disorganized, intrusive, blaming, threatening (told proposal manager writer someone would come over and break his neck) -consider switching to Zyprexa from seroquel 12/14 her is manic, intrusive irritable, grandiose [place] level subtherapeutic; however patient is very anxious about this medication causing side effects and at this time proposal manager writer thinks it might be better to leave it is current dose since patient continues to take it and trying to increase it may very well cause him to refuse it altogether; he is also on T egretol.? Perhaps switching antipsychotics to Zyprexa is warranted.? Patient says he has never taken Zyprexa before.? Patient typically knows his medication history however usually when someone gets on clozapine it is because most other medications have not worked.? [place] has just reached at steady state so will hold off making medication adjustments right now to see if there can be any further benefit observed from currently lithium dose and medication regimen. 12/15 no change; clonazepam at started off and was not restarted.? Patient did take p.o. laxatives and had a bowel movement says he feels better. 12/16:? increase tegretol from 600 BID to 600/800 tonight, as level around 7.? lithium sub-therapeutic but pt resistant to increase, will see how much better he can get on higher tegretol dosing.? T/C switching anti-psychotic to zyprexa, as pt has done well on clozaril in the past.? TEDs obtained for pedal edema. 12/17: no change in mgmt.? presentation not substantially changed.? some agitation today. 12/18: presentation essentially unchanged.? no agitation today, sleeping late mo rning. 12/19: Assessed for pedal edema, spoke with hospitalist, BNP, BMP wnl, venous doppler wnl. Per hospitalist, continue with TEDs, may consider low dose lasix. 12/20: stable presentation.? continue current mgmt.? check tegretol level about a week after dose increase.? trending more calm than earlier in his stay but remains very psychotic.? T/C trial of olanzapine. 12/21:? taper and DC lithium and it appears to be having unsustainable physical side effects (B/L LE edema, now possibly with cellulitis).? also tested COVID POS today, satting mid 902 on RA.? hospitalist consult placed for eval of COVID severity and R/O cellulitis.? T/C olanzapine trial once lithium has been DCed. 12/22: stable, appears medically better than yesterday. continue lithium taper, to 150 BID tonight and tomorrow morning. start ibuprofen for better pain control with COVID. continue antibiotic and antiviral. 12/24 continue current tx. O2 sat >93, no s/s of respiratory distress. afebrile. 12/25: course of remdesivir complete, doxy ongoing. rash has not spread, likely related to edema and dependent limbs. less purpuric and more pinpoint red with bruising. edema improved. c/o productive cough, expectorant Rx'ed. otherwise continue current mgmt. per CDC guidelines, persons with moderate COVID (which includes having oxygen saturation less than 94%) should isolate for 10 days. 12/26: stable, in quarantine day #6 of . continue current mgmt. check labs on wednesday morning. 12/27: Continue current regimen and plans. Continue quarantine. 12/28: Continue current plans and regimen 12/29: increasingly disorganized and hyperverbal since DC of lithium. B/L pedal edema dose seem to be improving. day #9 of quarantine. tegretol level 8, other labs unremarkable aside from anemia. 12/30: obsessively scrubbing floor overnight, up all NOC. sleeping during day. more disorganized, hyperverbal. DC seroquel and start olanzapine 30 mg QHS. seroquel 200 mg PRNs for insomnia. 12/31: c/o persisting edema. perhaps lithium is not the largest offender; the only other change has been increasing tegretol dosing (edema identified as a side effect only in post-marketing, frequency not provided by update). lasix 20 mg one time tomorrow morning. otherwise continue current mgmt. slept well last night with zyprexa at HS. 01/01: slept 3 hours overnight. give lasix 40 mg daily x 3 days as 20 mg dose this morning was not effective. pedal edema remains below the ankle. continue current mgmt otherwise. 01/02: continues to have only several hours of sleep at night. reports good diuresis on lasix 40. continue to monitor pedal edema and efficacy of olanzapine + tegretol (and perphenazine) regimen. 01/03 continue current plan. 01/04 continue tx. 01/05: no change to Tx plan. 01/06: increase zyprexa to 40 mg at HS, restart lasix 20 mg daily for pedal edema. trending more organized and less pressured, but by no means well. 01/07: continues to appear less pressured and more organized. paranoia persists. 01/08: more disorganized and pressured today. met with new [facility] mtg next wednesday. lasix increased to 40 mg to combat edema. 01/09: sleeping day shift. reportedly slept 5 hours last night. no change in presentation otherwise. continue current mgmt. 01/10/Continue treatment plan including HOLD on scheduled seroquel 01/11 Contnue current treatment plan 01/12: continue current mgmt. more calm and organized today than last week. mtg with sister tuesday 01/16. 01/13: continue current mgmt. continues more organized and calm. pursuing GINNA. 01/14: no change in mgmt. continues more linear, logical, topical. awaiting OT testing results. mtg with sister wednesday. I spent ___20___ minutes with the patient and/or on the patient floor today, greater than?50% of which was spent counseling/coordinating care. Reason for contiued inpatient stay Substantial Risk for: inability to function and rapid decompensation
[2022-01-14 18:00] VITALS: BP 150/78; PULSE 75; RESP 18; TEMP 36.1; O2SAT 99
[2022-01-14] MEDS: Ibuprofen 600 MG TABLET PO (21:05)
[2022-01-14] MEDS: traZODone HCL 50 MG TABLET 150 MG PO (21:07)
[2022-01-14] MEDS: Prazosin HCL 1 MG CAPSULE 2 MG PO (21:08)
[2022-01-14] MEDS: OLANZapine ODT 10 MG TAB.RAPDIS 40 MG TRANSLINGU (21:08)
[2022-01-14] MEDS: Tamsulosin HCL 0.4 MG CAPSULE PO (21:09)
[2022-01-14] MEDS: hydrOXYzine HCL 50 MG TABLET PO (21:09)
[2022-01-15] MEDS: Ammonium Lactate 12 % Lotion 226 GM BOTTLE 1 APPL TOPICAL ×2 (00:01→13:04)
[2022-01-15 06:00] VITALS: BP 154/91; PULSE 85; RESP 20; TEMP 36.6; O2SAT 100
[2022-01-15] MEDS: Nicotine Polacrilex 2 MG GUM 4 MG BUCCAL ×8 (06:05→20:39)
[2022-01-15 07:00] VITALS: BMI 30.7
[2022-01-15] MEDS: Famotidine 20 MG TABLET PO (08:32)
[2022-01-15] MEDS: clonazePAM 1 MG TABLET PO ×2 (08:32→17:20)
[2022-01-15] MEDS: carBAMazepine ER 200 MG TAB.ER.12H 800 MG PO (08:32)
[2022-01-15] MEDS: Furosemide 40 MG TABLET PO (08:32)
[2022-01-15] MEDS: Ascorbic Acid 250 MG TABLET PO (08:32)
[2022-01-15] MEDS: Perphenazine 8 MG TABLET 16 MG PO ×2 (08:32→15:57)
[2022-01-15] MEDS: Vitamin E (Dl,Tocopheryl Acet) 180 MG (400 UNIT) CAPSULE PO (08:32)
[2022-01-15] MEDS: Fluticasone/Vilanterol 100/25 BLST.W.DEV 1 PUFF INHALE (09:50)
--- NOTE | 2022-01-15 14:33 | HO.PSYCHPN ---
Subjective Subjective Date of Service: 01/15/22 Reason For Visit: psychosis Interim History: calm, cooperative. able to be linear and topical in directed conversation, spontaneously tangential and loose. feeling well, no complaints or requests. per staff, distractible, psychotic. reading and writing. concerned he failed his OT test. slept from [place] to 0630. paranoid about new staff doing CO in [place] for peer. Mental Status Exam Mental Status Exam Narrative: dressed in street clothes. behavior is cooperative; adequate hygiene; affect normo-intense, non-labile; Speech incr rate, nml amount, nml loudness. nml prosody, decr latency; thought process linear in directed conversation, spontaneously tangential and loose. no delusions expressed. no SI/HI/AVH expressed. Patients insight and judgment are impaired. Diagnostics Vital Signs (24Hr): Vital Signs - 24 hr 01/14/22 18:00 01/15/22 06:00 Temperature 97 F 97.8 F Pulse Rate 75 85 Respiratory Rate 18 20 Blood Pressure 150/78 H 154/91 H Pulse Oximetry 99 100 Oxygen Delivery Method Room Air Room Air BMI result Body Mass Index 30.7 Labs Results: 12/29/21 08:55 12/29/21 08:55 Imaging Radiology Impressions: ITS Impressions Venous Duplex 12/19/21 20:16 IMPRESSION: No DVT demonstrated in the bilateral lower extremity. Medications Medications Current Medications Acetaminophen (Acetaminophen 325 Mg Tablet) 650 mg PO Q6H PRN PRN Reason: Headache/Pain Mild Scale (1-3) Last Admin: 12/30/21 18:04 Dose: 650 mg Al Hydroxide/Mg Hydroxide (Magnesium Hydrox/Alum Hydrox 30 Ml Oral.Susp) 30 ml PO Q6H PRN PRN Reason: Heartburn/Nausea Last Admin: 01/12/22 08:43 Dose: 30 ml Albuterol Sulfate (Albuterol Sulfate 90 Mcg 8 Gm Inhaler) 2 puff INHALE Q4H PRN PRN Reason: shortness of breath or wheezing Last Admin: 01/09/22 06:34 Dose: 2 puff Artificial Tears (Artificial Tears 15 Ml Drops) 2 drop EYE-BOTH Q4H PRN PRN Reason: Dry Eyes Last Admin: 01/12/22 15:29 Dose: 2 drop Ascorbic Acid (Ascorbic Acid 250 Mg Tablet) 250 mg PO DAILY DAVY Last Admin: 01/15/22 08:32 Dose: 250 mg Benzocaine (Throat Lozenge, Medicated Lozenge) 1 lozenge MUCOUS MEM Q1H PRN PRN Reason: Sore Throat Last Admin: 12/27/21 06:54 Dose: 1 lozenge Bisacodyl (Bisacodyl 10 Mg Supp.Rect) 10 mg WA BEDTIME PRN PRN Reason: Constipation Last Admin: 12/06/21 21:14 Dose: 10 mg Carbamazepine (Carbamazepine Er 200 Mg Tab.Er.12h) 800 mg PO BEDTIME DAVY Last Admin: 01/14/22 21:05 Dose: 800 mg Carbamazepine (Carbamazepine Er 200 Mg Tab.Er.12h) 800 mg PO DAILY DAVY Last Admin: 01/15/22 08:32 Dose: 800 mg Famotidine (Famotidine 20 Mg Tablet) 20 mg PO BID DAVY Last Admin: 01/15/22 08:32 Dose: 20 mg Fluticasone/Vilanterol (Fluticasone/Vilanterol 100/25 Blst.W.Dev) 1 puff INHALE DAILY DAVY Last Admin: 01/15/22 09:50 Dose: 1 puff Furosemide (Furosemide 40 Mg Tablet) 40 mg PO DAILY DAVY; Protocol Last Admin: 01/15/22 08:32 Dose: 40 mg Guaifenesin (Guaifenesin La 600 Mg Tab.Er.12h) 600 mg PO BID PRN PRN Reason: thick secretions Last Admin: 01/03/22 23:25 Dose: 600 mg Hydroxyzine HCl (Hydroxyzine Hcl 50 Mg Tablet) 50 mg PO Q6H PRN PRN Reason: Anxiety Last Admin: 01/14/22 21:09 Dose: 50 mg Ibuprofen (Ibuprofen 600 Mg Tablet) 600 mg PO Q6H PRN PRN Reason: aches and pains Last Admin: 01/14/22 21:05 Dose: 600 mg Lactic Acid (Ammonium Lactate 12 % Lotion 226 Gm Bottle) 1 appl TOPICAL BID DAVY; Protocol Last Admin: 01/15/22 13:04 Dose: 1 appl Lidocaine/Diphenhydr/Alum/Mg/Simeth (Mag&Al/Sim/Diphenhyd/Lidocaine 10 Ml Oral.Susp) 10 ml PO Q4H PRN; Protocol PRN Reason: oral mucous membrane ulcer jeremiah Last Admin: 12/20/21 02:20 Dose: 10 ml Magnesium Hydroxide (Milk Of Magnesia 30 Ml Oral.Susp) 30 ml PO DAILY PRN PRN Reason: Constipation Last Admin: 01/04/22 14:27 Dose: 30 ml Nicotine Polacrilex (Nicotine Polacrilex 2 Mg Gum) 4 mg BUCCAL Q1H PRN PRN Reason: Nicotine Cravings Last Admin: 01/15/22 13:57 Dose: 4 mg Olanzapine (Olanzapine Odt 10 Mg Tab.Rapdis) 40 mg TRANSLINGU BEDTIME DAVY Last Admin: 01/14/22 21:08 Dose: 40 mg Perphenazine (Perphenazine 8 Mg Tablet) 16 mg PO TID DAVY Last Admin: 01/15/22 08:32 Dose: 16 mg Prazosin HCl (Prazosin Hcl 1 Mg Capsule) 2 mg PO BEDTIME DAVY; Protocol Last Admin: 01/14/22 21:08 Dose: 2 mg Psyllium Hydrophilic Mucilloid (Psyllium Seed 3.4 Gm Powd.Pack) 3.4 gm PO BID DAVY Last Admin: 01/15/22 08:33 Dose: 3.4 gm Quetiapine Fumarate (Quetiapine Fumarate 200 Mg Tablet) 200 mg PO Q2H PRN PRN Reason: insomnia/agitation Last Admin: 01/13/22 21:16 Dose: 200 mg Simethicone (Simethicone 80 Mg Tab.Chew) 80 mg PO QIDWMHS PRN PRN Reason: flatulence Last Admin: 12/20/21 22:49 Dose: 80 mg Tamsulosin HCl (Tamsulosin Hcl 0.4 Mg Capsule) 0.4 mg PO BEDTIME DAVY Last Admin: 01/14/22 21:09 Dose: 0.4 mg Trazodone HCl (Trazodone Hcl 50 Mg Tablet) 150 mg PO BEDTIME DAVY Last Admin: 01/14/22 21:07 Dose: 150 mg Trazodone HCl (Trazodone Hcl 50 Mg Tablet) 50 mg PO BEDTIME PRN PRN Reason: Insomnia Last Admin: 01/08/22 22:47 Dose: 50 mg Vitamin E (Vitamin E (Dl,Tocopheryl Acet) 180 Mg (400 Unit) Capsule) 180 mg PO BID DAVY Last Admin: 01/15/22 08:32 Dose: 180 mg Allergies Allergies Allergy/AdvReac Type Severity Reaction Status Date / Time divalproex sodium Allergy Severe PANCREATITI Verified 11/24/21 14:34 [From DEPAKOTE] S haloperidol [From Haldol] Allergy Intermediate DYSTONIC Verified 11/24/21 14:34 REACTION Assessment & Plan Assessment & Plan (1) Schizoaffective disorder: Status: Acute Code(s): F25.9 - Schizoaffective disorder, unspecified (2) Cellulitis: Status: Acute Code(s): L03.90 - Cellulitis, unspecified Assessment and Plan: 51yo M with COPD, HLD, obesity, BPH, ex-smoker, bipolar-type schizoaffective disorder admitted to [facility]. Developed infection of R foot yesterday as well as symptomatic Covid-19 infection without hypoxia. # nonpurulent cellulitis - doxycycline x7d. no need for blood culture. monitor clinically for improvement. (3) COVID-19: Status: Acute Code(s): U07.1 - COVID-19 Assessment and Plan: 51yo M with COPD, HLD, obesity, BPH, ex-smoker, bipolar-type schizoaffective disorder admitted to [facility]. Developed infection of R foot yesterday as well as symptomatic Covid-19 infection without hypoxia. # Covid-19 infection - not hypoxic; no steroids indicated. Paxlovid contraindicated by use of carbamezapine. can give 3 days of IV remdesivir as alternative. Monitor SaO2 qshift. beginning 12/20/21, isolation x5d then mask-wearing x5d Plan 12/03: continue home meds for now. CV rejected as pt unable to appreciate the circumstances of his admission. will need commitment and benedicto's order. T/C restarting clozaril and lithium, on which pt did well for many years, reportedly. tegretol increased from 400 BID to 600 BID at admission. 12/04: klonopin 0.5/0.5/1 reinstated 12/04 (outpt provider had started it 11/25 at 1 mg TID). magic mouthwash started for oral ulcers. 12/05: slept well last night, still pressured and disorganized.? continue current mgmt. 12/08: 12b up, applied for commitment and meds.? making sexually inappropriate comments/suggestions to staff, threatening violence and toward male peer. 12/09: same presentation as yesterday.? started lithium 450 mg BID today. 12/10: no change in presentation, compliant with lithium. 12/11: DC prazosin to see if B/L pedal edema decreases.? DC pravachol as pt is refusing it.? order lac-hydrin for plantar fissure.? otherwise continue previous mgmt.? perhaps slight decrease in pressure and disorganization. 12/12: pedal edema no worse, perhaps better.? no GI side effects from lithium.? fissure looks improved with cream.? check lithium, tegretol, associated labs on wednesday (ordered).? titrate lithium as indicated. 12/13 pt manic, disorganized, intrusive, blaming, threatening (told engineering technical writer someone would come over and break his neck) -consider switching to Zyprexa from seroquel 12/14 her is manic, intrusive irritable, grandiose [place] level subtherapeutic; however patient is very anxious about this medication causing side effects and at this time engineering technical writer thinks it might be better to leave it is current dose since patient continues to take it and trying to increase it may very well cause him to refuse it altogether; he is also on Tegretol.? Perhaps switching antipsychotics to Zyprexa is warranted.? Patient says he has never taken Zyprexa before.? Patient typically knows his medication history however usually when someone gets on clozapine it is because most other medications have not worked.? [place] has just reached at steady state so will hold off making medication adjustments right now to see if there can be any further benefit observed from currently lithium dose and medication regimen. 12/15 no change; clonazepam at started off and was not restarted.? Patient did take p.o. laxatives and had a bowel movement says he feels better. 12/16:? increase tegretol from 600 BID to 600/800 tonight, as level around 7.? lithium sub-therapeutic but pt resistant to increase, will see how much better he can get on higher tegretol dosing.? T/C switching anti-psychotic to zyprexa, as pt has done well on clozaril in the past.? TEDs obtained for pedal edema. 12/17: no change in mgmt.? presentation not substantially changed.? some agitation today. 12/18: presentation essentially unchanged.? no agitation today, sleeping late morning. 12/19: Assessed for pedal edema, spoke with hospitalist, BNP, BMP wnl, venous doppler wnl. Per hospitalist, continue with TEDs, may consider low dose lasix. 12/20: stable presentation.? continue current mgmt.? check tegretol level about a week after dose increase.? trending more calm than earlier in his stay but remains very psychotic.? T/C trial of olanzapine. 12/21:? taper and DC lithium and it appears to be having unsustainable physical side effects (B/L LE edema, now possibly with cellulitis).? also tested COVID POS today, satting mid 902 on RA.? hospitalist consult placed for eval of COVID severity and R/O cellulitis.? T/C olanzapine trial once lithium has been DCed. 12/22: stable, appears medically better than yesterday. continue lithium taper, to 150 BID tonight and tomorrow morning. start ibuprofen for better pain control with COVID. continue antibiotic and antiviral. 12/24 continue current tx. O2 sat >93, no s/s of respiratory distress. afebrile. 12/25: course of remdesivir complete, doxy ongoing. rash has not spread, likely related to edema and dependent limbs. less purpuric and more pinpoint red with bruising. edema improved. c/o productive cough, expectorant Rx'ed. otherwise continue current mgmt. per CDC guidelines, persons with moderate COVID (which includes having oxygen saturation less than 94%) should isolate for 10 days. 12/26: stable, in quarantine day #6 of . continue current mgmt. check labs on wednesday morning. 12/27: Continue current regimen and plans. Continue quarantine. 12/28: Continue current plans and regimen 12/29: increasingly disorganized and hyperverbal since DC of lithium. B/L pedal edema dose seem to be improving. day #9 of quarantine. tegretol level 8, other labs unremarkable aside from anemia. 12/30: obsessively scrubbing floor overnight, up all NOC. sleeping during day. more disorganized, hyperverbal. DC seroquel and start olanzapine 30 mg QHS. seroquel 200 mg PRNs for insomnia. 12/31: c/o persisting edema. perhaps lithium is not the largest offender; the only other change has been increasing tegretol dosing (edema identified as a side effect only in post-marketing, [facility] lasix 20 mg one time tomorrow morning. otherwise continue current mgmt. slept well last night with zyprexa at HS. 01/01: slept 3 hours overnight. give lasix 40 mg daily x 3 days as 20 mg dose this morning was not effective. pedal edema remains below the ankle. continue current mgmt otherwise. 01/02: continues to have only several hours of sleep at night. reports good diuresis on lasix 40. continue to monitor pedal edema and efficacy of olanzapine + tegretol (and perphenazine) regimen. 01/03 continue current plan. 01/04 continue tx. 01/05: no change to Tx plan. 01/06: increase zyprexa to 40 mg at HS, restart lasix 20 mg daily for pedal edema. trending more organized and less pressured, but by no means well. 01/07: continues to appear less pressured and more organized. paranoia persists. 01/08: more disorganized and pressured today. met with new [facility] mtg next wednesday. lasix increased to 40 mg to combat edema. 01/09: sleeping day shift. reportedly slept 5 hours last night. no change in presentation otherwise. continue current mgmt. 01/10/Continue treatment plan including HOLD on scheduled seroquel 01/11 Contnue current treatment plan 01/12: continue current mgmt. more calm and organized today than last week. mtg with sister tuesday 01/16. 01/13: continue current mgmt. continues more organized and calm. pursuing GINNA. 01/14: no change in mgmt. continues more linear, logical, topical. awaiting OT testing results. mtg with sister wednesday. 01/15: stable, no complaints or requests. scored 4.6 on OT testing, meaning he may live on his own with support at the level of check-ins weekly. mtg with sister tomorrow. I spent __25____ minutes with the patient and/or on the patient floor today, greater than?50% of which was spent counseling/coordinating care. Reason for contiued inpatient stay Substantial Risk for: inability to function and rapid decompensation
[2022-01-16 01:50] VITALS: BP 128/74; PULSE 67; RESP 16; TEMP 36.4; O2SAT 97
[2022-01-16] MEDS: carBAMazepine ER 200 MG TAB.ER.12H 800 MG PO ×3 (01:51→23:09)
[2022-01-16] MEDS: Nicotine Polacrilex 2 MG GUM 4 MG BUCCAL ×9 (01:52→22:40)
[2022-01-16] MEDS: Perphenazine 8 MG TABLET 16 MG PO ×4 (01:52→23:10)
[2022-01-16] MEDS: Vitamin E (Dl,Tocopheryl Acet) 180 MG (400 UNIT) CAPSULE PO ×3 (01:52→23:08)
[2022-01-16] MEDS: hydrOXYzine HCL 50 MG TABLET PO ×3 (01:53→23:09)
[2022-01-16] MEDS: Ibuprofen 600 MG TABLET PO ×3 (01:53→23:09)
[2022-01-16] MEDS: Famotidine 20 MG TABLET PO ×3 (01:53→23:09)
[2022-01-16] MEDS: Tamsulosin HCL 0.4 MG CAPSULE PO ×2 (01:54→23:09)
[2022-01-16] MEDS: clonazePAM 1 MG TABLET PO ×4 (01:54→23:09)
[2022-01-16] MEDS: Prazosin HCL 1 MG CAPSULE 2 MG PO ×2 (01:54→23:10)
[2022-01-16] MEDS: OLANZapine ODT 10 MG TAB.RAPDIS 40 MG TRANSLINGU ×2 (01:54→23:36)
[2022-01-16] MEDS: traZODone HCL 50 MG TABLET 150 MG PO ×2 (01:55→23:10)
[2022-01-16] MEDS: traZODone HCL 50 MG TABLET PO ×2 (01:55→23:10)
[2022-01-16] MEDS: Artificial Tears 15 ML DROPS 2 DROP EYE-BOTH (03:32)
[2022-01-16 10:16] VITALS: BP 132/72; PULSE 81; RESP 18; TEMP 36.2; O2SAT 98
[2022-01-16] MEDS: Ammonium Lactate 12 % Lotion 226 GM BOTTLE 1 APPL TOPICAL (10:16)
[2022-01-16] MEDS: Fluticasone/Vilanterol 100/25 BLST.W.DEV 1 PUFF INHALE (10:16)
[2022-01-16] MEDS: Ascorbic Acid 250 MG TABLET PO (10:18)
[2022-01-16] MEDS: Furosemide 40 MG TABLET PO (10:19)
[2022-01-16 12:27] LABS: MANUAL DIFF FLAG NO
[2022-01-16 12:41] LABS: Basophils Percent Auto 0.7 % (0-2); Eosinophils Absolute Auto 0.2 X10*3/uL (0.0-0.4); Eosinophils Percent Auto 3.8 % (0-4); Hematocrit 42.6 % (42.0-52.0); Hemoglobin 13.8 g/dl (14.0-18.0); Imm Gran Abs Auto 0.03 X10*3/uL (0.00-0.03); Imm Gran Pct Auto 0.5 % (0.0-0.4); Lymphocytes Absolute Auto 1.2 X10*3/uL (1.2-4.9); Lymphocytes Percent Auto 21.3 % (20-40); Mean Corpuscular HGB Conc 32.4 g/dl (31.0-36.0); Mean Corpuscular Hemoglobin 30.9 pg (27.0-33.0); Mean Corpuscular Volume 95.3 fL (80.0-98.0); Mean Platelet Volume 10.2 fL (9.4-12.4); Monocytes Absolute Auto 0.7 X10*3/uL (0.1-1.2); Monocytes Percent Auto 11.3 % (2-11); Neutrophils Absolute Auto 3.6 x10*3/uL (2.0-8.3); Neutrophils Percent Auto 62.4 % (45-73); Platelet Count 202 X10*3/uL (160-400); Red Blood Count 4.47 X10*6/uL (4.60-5.80); Red Cell Distribution Width 13.1 % (11.0-16.0); White Blood Count 5.7 X10*3/uL (4.8-10.8)
--- NOTE | 2022-01-16 14:15 | P.PNPSI_ITS ---
Subjective Subjective Date of Service: 01/16/22 Reason For Visit: psychosis Interim History: mtg held with pt and his sister, RENEE ARTIS, and . pt reactive, irritable today at any discussion of his ability to live independently. talking about someone's head being on a platter and it's not going to be his, or saying RENEE ARTIS, and will be electrocuted. sister also generally reactive and rigid regarding discussion of patient's ability to live on his own, although more receptive to explanation and education. ultimately, sister felt it was imperative that pt get back on clozaril, a position MD supported and to which pt ultimately agreed. clozapine to be restarted this evening at 25 mg. per staff, some lability, loose and racing thoughts. not attending groups. eating and sleeping well. reported bad thoughts eves. slept about 6 hours overnight. Mental Status Exam Mental Status Exam Narrative: dressed in street clothes. behavior is cooperative; adequate hygiene; affect h yper-intense, labile; Speech incr rate, amount, loudness. nml prosody, decr latency; thought process tangential and loose. no delusions explicitly expressed. no SI/HI/AVH expressed. Patients insight and judgment are impaired. Diagnostics Vital Signs (24Hr): Vital Signs - 24 hr 01/16/22 01:50 01/16/22 10:16 Temperature 97.5 F 97.2 F Pulse Rate 67 81 Respiratory Rate 16 18 Blood Pressure 128/74 132/72 Pulse Oximetry 97 98 Oxygen Delivery Method Room Air Room Air BMI result Body Mass Index 30.7 Labs Results: 01/16/22 12:21 12/29/21 08:55 Labs: Laboratory Results - last 48 hr 01/16/22 12:21 WBC 5.7 RBC 4.47 L Hgb 13.8 L Hct 42.6 MCV 95.3 MCH 30.9 MCHC 32.4 RDW 13.1 Plt Count 202 MPV 10.2 Immature Gran % (Auto) 0.5 H Neut % (Auto) 62.4 Lymph % (Auto) 21.3 [place] % (Auto) 11.3 H Eos % (Auto) 3.8 Baso % (Auto) 0.7 Lymph # (Auto) 1.2 [place] # (Auto) 0.7 Eos # (Auto) 0.2 Baso # (Auto) 0.0 Abs Immat Gran (auto) 0.03 Absolute Neuts (auto) 3.6 Absolute Nucleated RBC 0.000 Nucleated RBC % (auto) 0.0 Imaging Radiology Impressions: ITS Impressions Venous Duplex 12/19/21 20:16 IMPRESSION: No DVT demonstrated in the bilateral lower extremity. Medications Medications Current Medications Acetaminophen (Acetaminophen 325 Mg Tablet) 650 mg PO Q6H PRN PRN Reason: Headache/Pain Mild Scale (1-3) Last Admin: 12/30/21 18:04 Dose: 650 mg Al Hydroxide/Mg Hydroxide (Magnesium Hydrox/Alum Hydrox 30 Ml Oral.Susp) 30 ml PO Q6H PRN PRN Reason: Heartburn/Nausea Last Admin: 01/12/22 08:43 Dose: 30 ml Albuterol Sulfate (Albuterol Sulfate 90 Mcg 8 Gm Inhaler) 2 puff INHALE Q4H PRN PRN Reason: shortness of breath or wheezing Last Admin: 01/09/22 06:34 Dose: 2 puff Artificial Tears (Artificial Tears 15 Ml Drops) 2 drop EYE-BOTH Q4H PRN PRN Reason: Dry Eyes Last Admin: 01/16/22 03:32 Dose: 2 drop Ascorbic Acid (Ascorbic Acid 250 Mg Tablet) 250 mg PO DAILY DAVY Last Admin: 01/16/22 10:18 Dose: 250 mg Benzocaine (Throat Lozenge, Medicated Lozenge) 1 lozenge MUCOUS MEM Q1H PRN PRN Reason: Sore Throat Last Admin: 12/27/21 06:54 Dose: 1 lozenge Bisacodyl (Bisacodyl 10 Mg Supp.Rect) 10 mg IA BEDTIME PRN PRN Reason: Constipation Last Admin: 12/06/21 21:14 Dose: 10 mg Carbamazepine (Carbamazepine Er 200 Mg Tab.Er.12h) 800 mg PO BEDTIME DAVY Last Admin: 01/16/22 01:51 Dose: 800 mg Carbamazepine (Carbamazepine Er 200 Mg Tab.Er.12h) 800 mg PO DAILY DAVY Last Admin: 01/16/22 10:17 Dose: 800 mg Clonazepam (Clonazepam 1 Mg Tablet) 1 mg PO TID DAVY Last Admin: 01/16/22 10:18 Dose: 1 mg Clozapine (Clozapine 25 Mg Tablet) 25 mg PO BEDTIME DAVY Famotidine (Famotidine 20 Mg Tablet) 20 mg PO BID DAVY Last Admin: 01/16/22 10:19 Dose: 20 mg Fluticasone/Vilanterol (Fluticasone/Vilanterol 100/25 Blst.W.Dev) 1 puff INHALE DAILY DAVY Last Admin: 01/16/22 10:16 Dose: 1 puff Furosemide (Furosemide 40 Mg Tablet) 40 mg PO DAILY DAVY; Protocol Last Admin: 01/16/22 10:19 Dose: 40 mg Guaifenesin (Guaifenesin La 600 Mg Tab.Er.12h) 600 mg PO BID PRN PRN Reason: thick secretions Last Admin: 01/03/22 23:25 Dose: 600 mg Hydroxyzine HCl (Hydroxyzine Hcl 50 Mg Tablet) 50 mg PO Q6H PRN PRN Reason: Anxiety Last Admin: 01/16/22 10:19 Dose: 50 mg Ibuprofen (Ibuprofen 600 Mg Tablet) 600 mg PO Q6H PRN PRN Reason: aches and pains Last Admin: 01/16/22 10:19 Dose: 600 mg Lactic Acid (Ammonium Lactate 12 % Lotion 226 Gm Bottle) 1 appl TOPICAL BID DAVY; Protocol Last Admin: 01/16/22 10:16 Dose: 1 appl Lidocaine/Diphenhydr/Alum/Mg/Simeth (Mag&Al/Sim/Diphenhyd/Lidocaine 10 Ml Oral.Susp) 10 ml PO Q4H PRN; Protocol PRN Reason: oral mucous membrane ulcer jeremiah Last Admin: 12/20/21 02:20 Dose: 10 ml Magnesium Hydroxide (Milk Of Magnesia 30 Ml Oral.Susp) 30 ml PO DAILY PRN PRN Reason: Constipation Last Admin: 01/04/22 14:27 Dose: 30 ml Nicotine Polacrilex (Nicotine Polacrilex 2 Mg Gum) 4 mg BUCCAL Q1H PRN PRN Reason: Nicotine Cravings Last Admin: 01/16/22 12:36 Dose: 4 mg Olanzapine (Olanzapine Odt 10 Mg Tab.Rapdis) 40 mg TRANSLINGU BEDTIME DAVY Last Admin: 01/16/22 01:54 Dose: 40 mg Perphenazine (Perphenazine 8 Mg Tablet) 16 mg PO TID DAVY Last Admin: 01/16/22 10:18 Dose: 16 mg Prazosin HCl (Prazosin Hcl 1 Mg Capsule) 2 mg PO BEDTIME DAVY; Protocol Last Admin: 01/16/22 01:54 Dose: 2 mg Psyllium Hydrophilic Mucilloid (Psyllium Seed 3.4 Gm Powd.Pack) 3.4 gm PO BID [facility] Last Admin: 01/16/22 10:17 Dose: 3.4 gm Quetiapine Fumarate (Quetiapine Fumarate 200 Mg Tablet) 200 mg PO Q2H PRN PRN Reason: insomnia/agitation Last Admin: 01/13/22 21:16 Dose: 200 mg Simethicone (Simethicone 80 Mg Tab.Chew) 80 mg PO QIDWMHS PRN PRN Reason: flatulence Last Admin: 12/20/21 22:49 Dose: 80 mg Tamsulosin HCl (Tamsulosin Hcl 0.4 Mg Capsule) 0.4 mg PO BEDTIME [facility] Last Admin: 01/16/22 01:54 Dose: 0.4 mg Trazodone HCl (Trazodone Hcl 50 Mg Tablet) 150 mg PO BEDTIME DAVY Last Admin: 01/16/22 01:55 Dose: 150 mg Trazodone HCl (Trazodone Hcl 50 Mg Tablet) 50 mg PO BEDTIME PRN PRN Reason: Insomnia Last Admin: 01/16/22 01:55 Dose: 50 mg Vitamin E (Vitamin E (Dl,Tocopheryl Acet) 180 Mg (400 Unit) Capsule) 180 mg PO BID [facility] Last Admin: 01/16/22 10:18 Dose: 180 mg Allergies Allergies Allergy/AdvReac Type Severity Reaction Status Date / Time divalproex sodium Allergy Severe PANCREATITI Verified 11/24/21 14:34 [From DEPAKOTE] S haloperidol [From Haldol] Allergy Intermediate DYSTONIC Verified 11/24/21 14:34 REACTION Assessment & Plan Assessment & Plan (1) Schizoaffective disorder: Status: Acute Code(s): F25.9 - Schizoaffective disorder, unspecified (2) Cellulitis: Status: Acute Code(s): L03.90 - Cellulitis, unspecified Assessment and Plan: 51yo M with COPD, HLD, obesity, BPH, ex-smoker, bipolar-type schizoaffective disorder admitted to [facility]. Developed infection of R foot yesterday as well as symptomatic Covid-19 infection without hypoxia. # nonpurulent cellulitis - doxycycline x7d. no need for blood culture. monitor clinically for improvement. (3) COVID-19: Status: Acute Code(s): U07.1 - COVID-19 Assessment and Plan: 51yo M with COPD, HLD, obesity, BPH, ex-smoker, bipolar-type schizoaffective disorder admitted to [facility]. Developed infection of R foot yesterday as well as sym ptomatic Covid-19 infection without hypoxia. # Covid-19 infection - not hypoxic; no steroids indicated. Paxlovid contraindicated by use of carbamezapine. can give 3 days of IV remdesivir as alternative. Monitor SaO2 qshift. beginning 12/20/21, isolation x5d then mask-wearing x5d Plan 12/03: continue home meds for now. CV rejected as pt unable to appreciate the circumstances of his admission. will need commitment and benedicto's order. T/C restarting clozaril and lithium, on which pt did well for many years, reportedly. tegretol increased from 400 BID to 600 BID at admission. 12/04: klonopin 0.5/0.5/1 reinstated 12/04 (outpt provider had started it 11/25 at 1 mg TID). magic mouthwash started for oral ulcers. 12/05: slept well last night, still pressured and disorganized.? continue current mgmt. 12/08: 12b up, applied for commitment and meds.? making sexually inappropriate comments/suggestions to staff, threatening violence and toward male peer. 12/09: same presentation as yesterday.? started lithium 450 mg BID today. 12/10: no change in presentation, compliant with lithium. 12/11: DC prazosin to see if B/L pedal edema decreases.? DC pravachol as pt is refusing it.? order lac-hydrin for plantar fissure.? otherwise continue previous mgmt.? perhaps slight decrease in pressure and disorganization. 12/12: pedal edema no worse, perhaps better.? no GI side effects from lithium.? fissure looks improved with cream.? check lithium, tegretol, associated labs on wednesday (ordered).? titrate lithium as indicated. 12/13 pt manic, disorganized, intrusive, blaming, threatening (told fha underwriter someone would come over and break his neck) -consider switching to Zyprexa from seroquel 12/14 her is manic, intrusive irritable, grandiose [place] level subtherapeutic; however patient is very anxious about this medication causing side effects and at this time fha underwriter thinks it might be better to leave it is current dose since patient continues to take it and trying to increase it may very well cause him to refuse it altogether; he is also on Tegretol.? Perhaps switching antipsychotics to Zyprexa is warranted.? Patient says he has never taken Zyprexa before.? Patient typically knows his medication history however usually when someone gets on clozapine it is because most other medications have not worked.? [place] has just reached at steady state so will hold off making medication adjustments right now to see if there can be any further benefit observed from currently lithium dose and medication regimen. 12/15 no change; clonazepam at started off and was not restarted.? Patient did take p.o. laxatives and had a bowel movement says he feels better. 12/16:? increase tegretol from 600 BID to 600/800 tonight, as level around 7.? lithium sub-therapeutic but pt resistant to increase, will see how much better he can get on higher tegretol dosing.? T/C switching anti-psychotic to zyprexa, as pt has done well on clozaril in the past.? TEDs obtained for pedal edema. 12/17: no change in mgmt.? presentation not substantially changed.? some agit ation today. 12/18: presentation essentially unchanged.? no agitation today, sleeping late morning. 12/19: Assessed for pedal edema, spoke with hospitalist, BNP, BMP wnl, venous doppler wnl. Per hospitalist, continue with TEDs, may consider low dose lasix. 12/20: stable presentation.? continue current mgmt.? check tegretol level about a week after dose increase.? trending more calm than earlier in his stay but remains very psychotic.? T/C trial of olanzapine. 12/21:? taper and DC lithium and it appears to be having unsustainable physical side effects (B/L LE edema, now possibly with cellulitis).? also tested COVID POS today, satting mid 902 on RA.? hospitalist consult placed for eval of COVID severity and R/O cellulitis.? T/C olanzapine trial once lithium has been DCed. 12/22: stable, appears medically better than yesterday. continue lithium taper, to 150 BID tonight and tomorrow morning. start ibuprofen for better pain control with COVID. continue antibiotic and antiviral. 12/24 continue current tx. O2 sat >93, no s/s of respiratory distress. afebrile. 12/25: course of remdesivir complete, doxy ongoing. rash has not spread, likely related to edema and dependent limbs. less purpuric and more pinpoint red with bruising. edema improved. c/o productive cough, expectorant Rx'ed. otherwise continue current mgmt. per CDC guidelines, persons with moderate COVID (which includes having oxygen saturation less than 94%) should isolate for 10 days. 12/26: stable, in quarantine day #6 of . continue current mgmt. check labs on wednesday morning. 12/27: Continue current regimen and plans. Continue quarantine. 12/28: Continue current plans and regimen 12/29: increasingly disorganized and hyperverbal since DC of lithium. B/L pedal edema dose seem to be improving. day #9 of quarantine. tegretol level 8, other labs unremarkable aside from anemia. 12/30: obsessively scrubbing floor overnight, up all NOC. sleeping during day. more disorganized, hyperverbal. DC seroquel and start olanzapine 30 mg QHS. seroquel 200 mg PRNs for insomnia. 12/31: c/o persisting edema. perhaps lithium is not the largest offender; the only other change has been increasing tegretol dosing (edema identified as a side effect only in post-marketing, frequency not provided by update). lasix 20 mg one time tomorrow morning. otherwise continue current mgmt. slept well last night with zyprexa at HS. 01/01: slept 3 hours overnight. give lasix 40 mg daily x 3 days as 20 mg dose this morning was not effective. pedal edema remains below the ankle. continue current mgmt otherwise. 01/02: continues to have only several hours of sleep at night. reports good diuresis on lasix 40. continue to monitor pedal edema and efficacy of olanzapine + tegretol (and perphenazine) regimen. 01/03 continue current plan. 01/04 continue tx. 01/05: no change to Tx plan. 01/06: increase zyprexa to 40 mg at HS, restart lasix 20 mg daily for pedal edema. trending more organized and less pressured, but by no means well. 01/07: continues to appear less pressured and more organized. paranoia persists. 01/08: more disorganized and pressured today. met with new RENEE. [facility] mtg next wednesday. lasix increased to 40 mg to combat edema. 01/09: sleeping day shift. reportedly slept 5 hours last night. no change in presentation otherwise. continue current mgmt. 01/10/Continue treatment plan including HOLD on scheduled seroquel 01/11 Contnue current treatment plan 01/12: continue current mgmt. more calm and organized today than last week. mtg with sister tuesday 01/16. 01/13: continue current mgmt. continues more organized and calm. pursuing GINNA. 01/14: no change in mgmt. continues more linear, logical, topical. awaiting OT testing results. mtg with sister wednesday. 01/15: stable, no complaints or requests. scored 4.6 on OT testing, meaning he may live on his own with support at the level of check-ins weekly. mtg with sister tomorrow. 01/16: mtg with sister, OT, MD RENEE. pt reactive, labile, disorganized, bizarre in the face of any discussion of his ability or lack thereof to live in dependently. at sister's urging, pt agreed to restart clozaril at 25 mg daily. I spent ___50___ minutes with the patient and/or on the patient floor today, greater than?50% of which was spent counseling/coordinating care. Reason for contiued inpatient stay Substantial Risk for: harm to self, harm to others, inability to function and rapid decompensation
[2022-01-16 22:55] VITALS: BP 137/77; PULSE 69; RESP 18; TEMP 36.4; O2SAT 100
[2022-01-16] MEDS: cloZAPine 25 MG TABLET PO (23:10)
[2022-01-17] MEDS: Nicotine Polacrilex 2 MG GUM 4 MG BUCCAL ×12 (00:19→23:54)
[2022-01-17] MEDS: Artificial Tears 15 ML DROPS 2 DROP EYE-BOTH ×2 (00:36→23:38)
[2022-01-17 09:45] VITALS: BP 136/84; PULSE 80; RESP 18; TEMP 36.6; O2SAT 98
[2022-01-17] MEDS: Fluticasone/Vilanterol 100/25 BLST.W.DEV 1 PUFF INHALE (09:47)
[2022-01-17] MEDS: Ammonium Lactate 12 % Lotion 226 GM BOTTLE 1 APPL TOPICAL (09:47)
[2022-01-17] MEDS: Ascorbic Acid 250 MG TABLET PO (09:48)
[2022-01-17] MEDS: Perphenazine 8 MG TABLET 16 MG PO ×3 (09:48→23:43)
[2022-01-17] MEDS: carBAMazepine ER 200 MG TAB.ER.12H 800 MG PO ×2 (09:49→23:42)
[2022-01-17] MEDS: Famotidine 20 MG TABLET PO ×2 (09:49→23:39)
[2022-01-17] MEDS: Vitamin E (Dl,Tocopheryl Acet) 180 MG (400 UNIT) CAPSULE PO ×2 (09:49→23:42)
[2022-01-17] MEDS: clonazePAM 1 MG TABLET PO ×3 (09:49→23:39)
[2022-01-17] MEDS: Furosemide 40 MG TABLET PO (09:49)
--- NOTE | 2022-01-17 13:18 | HO.PSYCHPN ---
Subjective Subjective Date of Service: 01/17/22 Reason For Visit: psychosis Interim History: pacing the halls. somewhat paranoid appearing, tense. once meeting with MD does become physiologically aroused, elevating voice, speaking over MD, pressured, angry affect, making vaguely threatening or menacing remarks to MD. the context is recently restarting clozapine last evening. pt states he will soon get edematous legs and will hold MD responsible. per staff, took clozaril last night. stable presentation. legs improved. Mental Status Exam Mental Status Exam Narrative: dressed in street clothes. behavior is cooperative; adequate hygiene; affect hyper-intense, labile; Speech incr rate, amount, loudness. nml prosody, decr latency; thought process tangential and loose. no delusions explicitly expressed. no SI/HI/AVH expressed. Patients insight and judgment are impaired. Diagnostics Vital Signs (24Hr): Vital Signs - 24 hr 01/16/22 22:55 01/17/22 09:45 Temperature 97.6 F 97.9 F Pulse Rate 69 80 Respiratory Rate 18 18 Blood Pressure 137/77 136/84 Pulse Oximetry 100 98 Oxygen Delivery Method Room Air Room Air BMI result Body Mass Index 30.7 Labs Results: 01/16/22 12:21 12/29/21 08:55 Labs: Laboratory Results - last 48 hr 01/16/22 12:21 WBC 5.7 RBC 4.47 L Hgb 13.8 L Hct 42.6 MCV 95.3 MCH 30.9 MCHC 32.4 RDW 13.1 Plt Count 202 MPV 10.2 Immature Gran % (Auto) 0.5 H Neut % (Auto) 62.4 Lymph % (Auto) 21.3 [place] % (Auto) 11.3 H Eos % (Auto) 3.8 Baso % (Auto) 0.7 Lymph # (Auto) 1.2 [place] # (Auto) 0.7 Eos # (Auto) 0.2 Baso # (Auto) 0.0 Abs Immat Gran (auto) 0.03 Absolute Neuts (auto) 3.6 Absolute Nucleated RBC 0.000 Nucleated RBC % (auto) 0.0 Imaging Radiology Impressions: ITS Impressions Venous Duplex 12/19/21 20:16 IMPRESSION: No DVT demonstrated in the bilateral lower extremity. Medications Medications Current Medications Acetaminophen (Acetaminophen 325 Mg Tablet) 650 mg PO Q6H PRN PRN Reason: Headache/Pain Mild Scale (1-3) Last Admin: 12/30/21 18:04 Dose: 650 mg Al Hydroxide/Mg Hydroxide (Magnesium Hydrox/Alum Hydrox 30 Ml Oral.Susp) 30 ml PO Q6H PRN PRN Reason: Heartburn/Nausea Last Admin: 01/12/22 08:43 Dose: 30 ml Albuterol Sulfate (Albuterol Sulfate 90 Mcg 8 Gm Inhaler) 2 puff INHALE Q4H PRN PRN Reason: shortness of breath or wheezing Last Admin: 01/09/22 06:34 Dose: 2 puff Artificial Tears (Artificial Tears 15 Ml Drops) 2 drop EYE-BOTH Q4H PRN PRN Reason: Dry Eyes Last Admin: 01/17/22 00:36 Dose: 2 drop Ascorbic Acid (Ascorbic Acid 250 Mg Tablet) 250 mg PO DAILY [facility] Last Admin: 01/17/22 09:48 Dose: 250 mg Benzocaine (Throat Lozenge, Medicated Lozenge) 1 lozenge MUCOUS MEM Q1H PRN PRN Reason: Sore Throat Last Admin: 12/27/21 06:54 Dose: 1 lozenge Bisacodyl (Bisacodyl 10 Mg Supp.Rect) 10 mg MA BEDTIME PRN PRN Reason: Constipation Last Admin: 12/06/21 21:14 Dose: 10 mg Carbamazepine (Carbamazepine Er 200 Mg Tab.Er.12h) 800 mg PO BEDTIME [facility] Last Admin: 01/16/22 23:09 Dose: 800 mg Carbamazepine (Carbamazepine Er 200 Mg Tab.Er.12h) 800 mg PO DAILY [facility] Last Admin: 01/17/22 09:49 Dose: 800 mg Clonazepam (Clonazepam 1 Mg Tablet) 1 mg PO TID [facility] Last Admin: 01/17/22 09:49 Dose: 1 mg Clozapine (Clozapine 25 Mg Tablet) 25 mg PO BEDTIME [facility] Last Admin: 01/16/22 23:10 Dose: 25 mg Famotidine (Famotidine 20 Mg Tablet) 20 mg PO BID [facility] Last Admin: 01/17/22 09:49 Dose: 20 mg Fluticasone/Vilanterol (Fluticasone/Vilanterol 100/25 Blst.W.Dev) 1 puff INHALE DAILY [facility] Last Admin: 01/17/22 09:47 Dose: 1 puff Furosemide (Furosemide 40 Mg Tablet) 40 mg PO DAILY [facility]; Protocol Last Admin: 01/17/22 09:49 Dose: 40 mg Guaifenesin (Guaifenesin La 600 Mg Tab.Er.12h) 600 mg PO BID PRN PRN Reason: thick secretions Last Admin: 01/03/22 23:25 Dose: 600 mg Hydroxyzine HCl (Hydroxyzine Hcl 50 Mg Tablet) 50 mg PO Q6H PRN PRN Reason: Anxiety Last Admin: 01/16/22 23:09 Dose: 50 mg Ibuprofen (Ibuprofen 600 Mg Tablet) 600 mg PO Q6H PRN PRN Reason: aches and pains Last Admin: 01/16/22 23:09 Dose: 600 mg Lactic Acid (Ammonium Lactate 12 % Lotion 226 Gm Bottle) 1 appl TOPICAL BID [facility]; Protocol Last Admin: 01/17/22 09:47 Dose: 1 appl Lidocaine/Diphenhydr/Alum/Mg/Simeth (Mag&Al/Sim/Diphenhyd/Lidocaine 10 Ml Oral.Susp) 10 ml PO Q4H PRN; Protocol PRN Reason: oral mucous membrane ulcer jeremiah Last Admin: 12/20/21 02:20 Dose: 10 ml Magnesium Hydroxide (Milk Of Magnesia 30 Ml Oral.Susp) 30 ml PO DAILY PRN PRN Reason: Constipation Last Admin: 01/04/22 14:27 Dose: 30 ml Nicotine Polacrilex (Nicotine Polacrilex 2 Mg Gum) 4 mg BUCCAL Q1H PRN PRN Reason: Nicotine Cravings Last Admin: 01/17/22 11:26 Dose: 4 mg Olanzapine (Olanzapine Odt 10 Mg Tab.Rapdis) 40 mg TRANSLINGU BEDTIME [facility] Last Admin: 01/16/22 23:36 Dose: 40 mg Perphenazine (Perphenazine 8 Mg Tablet) 16 mg PO TID [facility] Last Admin: 01/17/22 09:48 Dose: 16 mg Prazosin HCl (Prazosin Hcl 1 Mg Capsule) 2 mg PO BEDTIME [facility]; Protocol Last Admin: 01/16/22 23:10 Dose: 2 mg Psyllium Hydrophilic Mucilloid (Psyllium Seed 3.4 Gm Powd.Pack) 3.4 gm PO BID [facility] Last Admin: 01/17/22 09:48 Dose: 3.4 gm Quetiapine Fumarate (Quetiapine Fumarate 200 Mg Tablet) 200 mg PO Q2H PRN PRN Reason: insomnia/agitation Last Admin: 01/13/22 21:16 Dose: 200 mg Simethicone (Simethicone 80 Mg Tab.Chew) 80 mg PO QIDWMHS PRN PRN Reason: flatulence Last Admin: 12/20/21 22:49 Dose: 80 mg Tamsulosin HCl (Tamsulosin Hcl 0.4 Mg Capsule) 0.4 mg PO BEDTIME [facility] Last Admin: 01/16/22 23:09 Dose: 0.4 mg Trazodone HCl (Trazodone Hcl 50 Mg Tablet) 150 mg PO BEDTIME [facility] Last Admin: 01/16/22 23:10 Dose: 150 mg Trazodone HCl (Trazodone Hcl 50 Mg Tablet) 50 mg PO BEDTIME PRN PRN Reason: Insomnia Last Admin: 01/16/22 23:10 Dose: 50 mg Vitamin E (Vitamin E (Dl,Tocopheryl Acet) 180 Mg (400 Unit) Capsule) 180 mg PO BID [facility] Last Admin: 01/17/22 09:49 Dose: 180 mg Allergies Allergies Allergy/AdvReac Type Severity Reaction Status Date / Time divalproex sodium Allergy Severe PANCREATITI Verified 11/24/21 14:34 [From DEPAKOTE] S haloperidol [From Haldol] Allergy Intermediate DYSTONIC Verified 11/24/21 14:34 REACTION Assessment & Plan Assessment & Plan (1) Schizoaffective disorder: Status: Acute Code(s): F25.9 - Schizoaffective disorder, unspecified (2) Cellulitis: Status: Acute Code(s): L03.90 - Cellulitis, unspecified Assessment and Plan: 51yo M with COPD, HLD, obesity, BPH, ex-smoker, bipolar-type schizoaffective disorder admitted to [facility]. Developed infection of R foot yesterday as well as symptomatic Covid-19 infection without hypoxia. # nonpurulent cellulitis - doxycycline x7d. no need for blood culture. monitor clinically for improvement. (3) COVID-19: Status: Acute Code(s): U07.1 - COVID-19 Assessment and Plan: 51yo M with COPD, HLD, obesity, BPH, ex-smoker, bipolar-type schizoaffective disorder admitted to [facility]. Developed infection of R foot yesterday as well as symptomatic Covid-19 infection without hypoxia. # Covid-19 infection - not hypoxic; no steroids indicated. Paxlovid contraindicated by use of carbamezapine. can give 3 days of IV remdesivir as alternative. Monitor SaO2 qshift. beginning 12/20/21, isolation x5d then mask-wearing x5d Plan 12/03: continue home meds for now. CV rejected as pt unable to appreciate the circumstances of his admission. will need commitment and benedicto's order. T/C restarting clozaril and lithium, on which pt did well for many years, reportedly. tegretol increased from 400 BID to 600 BID at admission. 12/04: klonopin 0.5/0.5/1 reinstated 12/04 (outpt provider had started it 11/25 at 1 mg TID). magic mouthwash started for oral ulcers. 12/05: slept well last night, still pressured and disorganized.? continue current mgmt. 12/08: 12b up, applied for commitment and meds.? making sexually inappropriate comments/suggestions to staff, threatening violence and toward male peer. 12/09: same presentation as yesterday.? started lithium 450 mg BID today. 12/10: no change in presentation, compliant with lithium. 12/11: DC prazosin to see if B/L pedal edema decreases.? DC pravachol as pt is refusing it.? order lac-hydrin for plantar fissure.? otherwise continue previous mgmt.? perhaps slight decrease in pressure and disorganization. 12/12: pedal edema no worse, perhaps better.? no GI side effects from lithium.? fissure looks improved with cream.? check lithium, tegretol, associated labs on wednesday (ordered).? titrate lithium as indicated. 12/13 pt manic, disorganized, intrusive, blaming, threatening (told radio script writer someone would come over and break his neck) -consider switching to Zyprexa from seroquel 12/14 her is manic, intrusive irritable, grandiose [place] level subtherapeutic; however patient is very anxious about this medication causing side effects and at this time radio script writer thinks it might be better to leave it is current dose since patient continues to take it and trying to increase it may very well cause him to refuse it altogether; he is also on Tegretol.? Perhaps switching antipsychotics to Zyprexa is warranted.? Patient says he has never taken Zyprexa before.? Patient typically knows his medication history however usually when someone gets on clozapine it is because most other medications have not worked.? [place] has just reached at steady state so will hold off making medication adjustments right now to see if there can be any further benefit observed from currently lithium dose and medication regimen. 12/15 no change; clonazepam at started off and was not restarted.? Patient did take p.o. laxatives and had a bowel movement says he feels better. 12/16:? increase tegretol from 600 BID to 600/800 tonight, as level around 7.? lithium sub-therapeutic but pt resistant to increase, will see how much better he can get on higher tegretol dosing.? T/C switching anti-psychotic to zyprexa, as pt has done well on clozaril in the past.? TEDs obtained for pedal edema. 12/17: no change in mgmt.? presentation not substantially changed.? some agitation today. 12/18: presentation essentially unchanged.? no agitation today, sleeping late morning. 12/19: Assessed for pedal edema, spoke with hospitalist, BNP, BMP wnl, venous doppler wnl. Per hospitalist, continue with TEDs, may consider low dose lasix. 12/20: stable presentation.? continue current mgmt.? check tegretol level about a week after dose increase.? trending more calm than earlier in his stay but remains very psychotic.? T/C trial of olanzapine. 12/21:? taper and DC lithium and it appears to be having unsustainable physical side effects (B/L LE edema, now possibly with cellulitis).? also tested COVID POS today, satting mid 902 on RA.? hospitalist consult placed for eval of COVID severity and R/O cellulitis.? T/C olanzapine trial once lithium has been DCed. 12/22: stable, appears medically better than yesterday. continue lithium taper, to 150 BID tonight and tomorrow morning. start ibuprofen for better pain control with COVID. continue antibiotic and antiviral. 12/24 continue current tx. O2 sat >93, no s/s of respiratory distress. afebrile. 12/25: course of remdesivir complete, doxy ongoing. rash has not spread, likely related to edema and dependent limbs. less purpuric and more pinpoint red with bruising. edema improved. c/o productive cough, expectorant Rx'ed. otherwise continue current mgmt. per CDC guidelines, persons with moderate COVID (which includes having oxygen saturation less than 94%) should isolate for 10 days. 12/26: stable, in quarantine day #6 of . continue current mgmt. check labs on wednesday morning. 12/27: Continue current regimen and plans. Continue quarantine. 12/28: Continue current plans and regimen 12/29: increasingly disorganized and hyperverbal since DC of lithium. B/L pedal edema dose seem to be improving. day #9 of quarantine. tegretol level 8, other labs unremarkable aside from anemia. 12/30: obsessively scrubbing floor overnight, up all NOC. sleeping during day. more disorganized, hyperverbal. DC seroquel and start olanzapine 30 mg QHS. seroquel 200 mg PRNs for insomnia. 12/31: c/o persisting edema. perhaps lithium is not the largest offender; the only other change has been increasing tegretol dosing (edema identified as a side effect only in post-marketing, frequency not provided by update). lasix 20 mg one time tomorrow morning. otherwise continue current mgmt. slept well last night with zyprexa at HS. 01/01: slept 3 hours overnight. give lasix 40 mg daily x 3 days as 20 mg dose this morning was not effective. pedal edema remains below the ankle. continue current mgmt otherwise. 01/02: continues to have only several hours of sleep at night. reports good diuresis on lasix 40. continue to monitor pedal edema and efficacy of olanzapine + tegretol (and perphenazine) regimen. 01/03 continue current plan. 01/04 continue tx. 01/05: no change to Tx plan. 01/06: increase zyprexa to 40 mg at HS, restart lasix 20 mg daily for pedal edema. trending more organized and less pressured, but by no means well. 01/07: continues to appear less pressured and more organized. paranoia persists. 01/08: more disorganized and pressured today. met with new RENEE. [facility] mtg next wednesday. lasix increased to 40 mg to combat edema. 01/09: sleeping day shift. reportedly slept 5 hours last night. no change in presentation otherwise. continue current mgmt. 01/10/Continue treatment plan including HOLD on scheduled seroquel 01/11 Contnue current treatment plan 01/12: continue current mgmt. more calm and organized today than last week. mtg with sister tuesday 01/16. 01/13: continue current mgmt. continues more organized and calm. pursuing GINNA. 01/14: no change in mgmt. continues more linear, logical, topical. awaiting OT testing results. mtg with sister wednesday. 01/15: stable, no complaints or requests. scored 4.6 on OT testing, meaning he may live on his own with support at the level of check-ins weekly. mtg with sister tomorrow. 01/16: mtg with sister, OT, RENEE, . pt reactive, labile, disorganized, bizarre in the face of any discussion of his ability or lack thereof to live independently. at sister's urging, pt agreed to restart clozaril at 25 mg daily. 01/17: took clozapine 25 last night. increase dose again tomorrow. clearly agitated at the idea of being back on clozapine, quite hyper-aroused during interview with MD today. I spent ___15___ minutes with the patient and/or on the patient floor today, greater than?50% of which was spent counseling/coordinating care. Reason for contiued inpatient stay Substantial Risk for: harm to self, harm to others, inability to function and rapid decompensation
[2022-01-17] MEDS: hydrOXYzine HCL 50 MG TABLET PO ×2 (16:11→23:53)
[2022-01-17] MEDS: Milk of Magnesia 30 ML ORAL.SUSP PO (17:31)
[2022-01-17 23:38] VITALS: BP 119/67; PULSE 67; RESP 16; TEMP 36.4; O2SAT 97
[2022-01-17] MEDS: traZODone HCL 50 MG TABLET PO (23:39)
[2022-01-17] MEDS: traZODone HCL 50 MG TABLET 150 MG PO (23:39)
[2022-01-17] MEDS: cloZAPine 25 MG TABLET PO (23:39)
[2022-01-17] MEDS: OLANZapine ODT 10 MG TAB.RAPDIS 40 MG TRANSLINGU (23:40)
[2022-01-17] MEDS: Tamsulosin HCL 0.4 MG CAPSULE PO (23:40)
[2022-01-17] MEDS: Ibuprofen 600 MG TABLET PO (23:42)
[2022-01-17] MEDS: Prazosin HCL 1 MG CAPSULE 2 MG PO (23:47)
[2022-01-18] MEDS: Nicotine Polacrilex 2 MG GUM 4 MG BUCCAL ×9 (07:57→22:46)
[2022-01-18 08:12] VITALS: BP 117/76; PULSE 72; RESP 18; TEMP 36.6; O2SAT 99
[2022-01-18] MEDS: carBAMazepine ER 200 MG TAB.ER.12H 800 MG PO ×2 (08:24→22:01)
[2022-01-18] MEDS: Perphenazine 8 MG TABLET 16 MG PO ×3 (08:24→22:01)
[2022-01-18] MEDS: Vitamin E (Dl,Tocopheryl Acet) 180 MG (400 UNIT) CAPSULE PO ×2 (08:24→22:02)
[2022-01-18] MEDS: Furosemide 40 MG TABLET PO (08:25)
[2022-01-18] MEDS: Ascorbic Acid 250 MG TABLET PO (08:25)
[2022-01-18] MEDS: clonazePAM 1 MG TABLET PO ×3 (08:25→22:01)
[2022-01-18] MEDS: Famotidine 20 MG TABLET PO ×2 (08:25→22:00)
[2022-01-18] MEDS: Fluticasone/Vilanterol 100/25 BLST.W.DEV 1 PUFF INHALE (08:27)
[2022-01-18] MEDS: Ammonium Lactate 12 % Lotion 226 GM BOTTLE 1 APPL TOPICAL (08:27)
--- NOTE | 2022-01-18 17:57 | P.PNPSI_ITS ---
Subjective Subjective Date of Service: 01/18/22 Reason For Visit: psychosis Interim History: calm, cooperative initially. as interview progresses, pt becomes more agitated and paranoid toward MD. 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 he does note that the clozaril seems to be allowing him to talk less and exercise more of a filter over what he says. he describes it as it's shuttin' me up. he says, i'm not talking about things i shouldn't be talking about. per staff, denies Sx. fatigued. napping more. still spending much time in milieu. appears more bizarre than i nrecent days. Mental Status Exam Mental Status Exam Narrative: dressed in street clothes. behavior is cooperative; adequate hygiene; affect hyper-intense, labile; Speech incr rate, amount, loudness. nml prosody, decr latency; thought process tangential and loose. no delusions explicitly expressed. no SI/HI/AVH expressed. Patients insight and judgment are impaired. Diagnostics Vital Signs (24Hr): Vital Signs - 24 hr 01/17/22 23:38 01/18/22 08:12 Temperature 97.6 F 97.9 F Pulse Rate 67 72 Respiratory Rate 16 18 Blood Pressure 119/67 117/76 Pulse Oximetry 97 99 Oxygen Delivery Method Room Air Room Air BMI result Body Mass Index 30.7 Labs Results: 01/16/22 12:21 12/29/21 08:55 Imaging Radiology Impressions: ITS Impressions Venous Duplex 12/19/21 20:16 IMPRESSION: No DVT demonstrated in the bilateral lower extremity. Medications Medications Current Medications Acetaminophen (Acetaminophen 325 Mg Tablet) 650 mg PO Q6H PRN PRN Reason: Headache/Pain Mild Scale (1-3) Last Admin: 12/30/21 18:04 Dose: 650 mg Al Hydroxide/Mg Hydroxide (Magnesium Hydrox/Alum Hydrox 30 Ml Oral.Susp) 30 ml PO Q6H PRN PRN Reason: Heartburn/Nausea Last Admin: 01/12/22 08:43 Dose: 30 ml Albuterol Sulfate (Albuterol Sulfate 90 Mcg 8 Gm Inhaler) 2 puff INHALE Q4H PRN PRN Reason: shortness of breath or wheezing Last Admin: 01/09/22 06:34 Dose: 2 puff Artificial Tears (Artificial Tears 15 Ml Drops) 2 drop EYE-BOTH Q4H PRN PRN Reason: Dry Eyes Last Admin: 01/17/22 23:38 Dose: 2 drop Ascorbic Acid (Ascorbic Acid 250 Mg Tablet) 250 mg PO DAILY [facility] Last Admin: 01/18/22 08:25 Dose: 250 mg Benzocaine (Throat Lozenge, Medicated Lozenge) 1 lozenge MUCOUS MEM Q1H PRN PRN Reason: Sore Throat Last Admin: 12/27/21 06:54 Dose: 1 lozenge Bisacodyl (Bisacodyl 10 Mg Supp.Rect) 10 mg NC BEDTIME PRN PRN Reason: Constipation Last Admin: 12/06/21 21:14 Dose: 10 mg Carbamazepine (Carbamazepine Er 200 Mg Tab.Er.12h) 800 mg PO BEDTIME DAVY Last Admin: 01/17/22 23:42 Dose: 800 mg Carbamazepine (Carbamazepine Er 200 Mg Tab.Er.12h) 800 mg PO DAILY [facility] Last Admin: 01/18/22 08:24 Dose: 800 mg Clonazepam (Clonazepam 1 Mg Tablet) 1 mg PO TID [facility] Last Admin: 01/18/22 14:36 Dose: 1 mg Clozapine (Clozapine 25 Mg Tablet) 50 mg PO BEDTIME DAVY Famotidine (Famotidine 20 Mg Tablet) 20 mg PO BID [facility] Last Admin: 01/18/22 08:25 Dose: 20 mg Fluticasone/Vilanterol (Fluticasone/Vilanterol 100/25 Blst.W.Dev) 1 puff INHALE DAILY [facility] Last Admin: 01/18/22 08:27 Dose: 1 puff Furosemide (Furosemide 40 Mg Tablet) 40 mg PO DAILY [facility]; Protocol Last Admin: 01/18/22 08:25 Dose: 40 mg Guaifenesin (Guaifenesin La 600 Mg Tab.Er.12h) 600 mg PO BID PRN PRN Reason: thick secretions Last Admin: 01/03/22 23:25 Dose: 600 mg Hydroxyzine HCl (Hydroxyzine Hcl 50 Mg Tablet) 50 mg PO Q6H PRN PRN Reason: Anxiety Last Admin: 01/17/22 23:53 Dose: 50 mg Ibuprofen (Ibuprofen 600 Mg Tablet) 600 mg PO Q6H PRN PRN Reason: aches and pains Last Admin: 01/17/22 23:42 Dose: 600 mg Lactic Acid (Ammonium Lactate 12 % Lotion 226 Gm Bottle) 1 appl TOPICAL BID DAVY; Protocol Last Admin: 01/18/22 08:27 Dose: 1 appl Lidocaine/Diphenhydr/Alum/Mg/Simeth (Mag&Al/Sim/Diphenhyd/Lidocaine 10 Ml Oral. Susp) 10 ml PO Q4H PRN; Protocol PRN Reason: oral mucous membrane ulcer jeremiah Last Admin: 12/20/21 02:20 Dose: 10 ml Magnesium Hydroxide (Milk Of Magnesia 30 Ml Oral.Susp) 30 ml PO DAILY PRN PRN Reason: Constipation Last Admin: 01/17/22 17:31 Dose: 30 ml Nicotine Polacrilex (Nicotine Polacrilex 2 Mg Gum) 4 mg BUCCAL Q1H PRN PRN Reason: Nicotine Cravings Last Admin: 01/18/22 17:19 Dose: 4 mg Olanzapine (Olanzapine Odt 10 Mg Tab.Rapdis) 40 mg TRANSLINGU BEDTIME DAVY Last Admin: 01/17/22 23:40 Dose: 40 mg Perphenazine (Perphenazine 8 Mg Tablet) 16 mg PO TID DAVY Last Admin: 01/18/22 14:36 Dose: 16 mg Prazosin HCl (Prazosin Hcl 1 Mg Capsule) 2 mg PO BEDTIME DAVY; Protocol Last Admin: 01/17/22 23:47 Dose: 2 mg Psyllium Hydrophilic Mucilloid (Psyllium Seed 3.4 Gm Powd.Pack) 3.4 gm PO BID DAVY Last Admin: 01/18/22 08:24 Dose: 3.4 gm Quetiapine Fumarate (Quetiapine Fumarate 200 Mg Tablet) 200 mg PO Q2H PRN PRN Reason: insomnia/agitation Last Admin: 01/13/22 21:16 Dose: 200 mg Simethicone (Simethicone 80 Mg Tab.Chew) 80 mg PO QIDWMHS PRN PRN Reason: flatulence Last Admin: 12/20/21 22:49 Dose: 80 mg Tamsulosin HCl (Tamsulosin Hcl 0.4 Mg Capsule) 0.4 mg PO BEDTIME DAVY Last Admin: 01/17/22 23:40 Dose: 0.4 mg Trazodone HCl (Trazodone Hcl 50 Mg Tablet) 150 mg PO BEDTIME DAVY Last Admin: 01/17/22 23:39 Dose: 150 mg Trazodone HCl (Trazodone Hcl 50 Mg Tablet) 50 mg PO BEDTIME PRN PRN Reason: Insomnia Last Admin: 01/17/22 23:39 Dose: 50 mg Vitamin E (Vitamin E (Dl,Tocopheryl Acet) 180 Mg (400 Unit) Capsule) 180 mg PO BID DAVY Last Admin: 01/18/22 08:24 Dose: 180 mg Allergies Allergies Allergy/AdvReac Type Severity Reaction Status Date / Time divalproex sodium Allergy Severe PANCREATITI Verified 11/24/21 14:34 [From DEPAKOTE] S haloperidol [From Haldol] Allergy Intermediate DYSTONIC Verified 11/24/21 14:34 REACTION Assessment & Plan Assessment & Plan (1) Schizoaffective disorder: Status: Acute Code(s): F25.9 - Schizoaffective disorder, unspecified (2) Cellulitis: Status: Acute Code(s): L03.90 - Cellulitis, unspecified Assessment and Plan: 51yo M with COPD, HLD, obesity, BPH, ex-smoker, bipolar-type schizoaffective disorder admitted to [facility]. Developed infection of R foot yesterday as well as symptomatic Covid-19 infection without hypoxia. # nonpurulent cellulitis - doxycycline x7d. no need for blood culture. monitor clinically for improvement. (3) COVID-19: Status: Acute Code(s): U07.1 - COVID-19 Assessment and Plan: 51yo M with COPD, HLD, obesity, BPH, ex-smoker, bipolar-type schizoaffective disorder admitted to [facility]. Developed infection of R foot yesterday as well as symptomatic Covid-19 infection without hypoxia. # Covid-19 infection - not hypoxic; no steroids indicated. Paxlovid contraindicated by use of carbamezapine. can give 3 days of IV remdesivir as alternative. Monitor SaO2 qshift. beginning 12/20/21, isolation x5d then mask-wearing x5d Plan 12/03: continue home meds for now. CV rejected as pt unable to appreciate the circumstances of his admission. will need commitment and benedicto's order. T/C restarting clozaril and lithium, on which pt did well for many years, reportedly. tegretol increased from 400 BID to 600 BID at admission. 12/04: klonopin 0.5/0.5/1 reinstated 12/04 (outpt provider had started it 11/25 at 1 mg TID). magic mouthwash started for oral ulcers. 12/05: slept well last night, still pressured and disorganized.? continue current mgmt. 12/08: 12b up, applied for commitment and meds.? making sexually inappropriate comments/suggestions to staff, threatening violence and toward male peer. 12/09: same presentation as yesterday.? started lithium 450 mg BID today. 12/10: no change in presentation, compliant with lithium. 12/11: DC prazosin to see if B/L pedal edema decreases.? DC pravachol as pt is refusing it.? order lac-hydrin for plantar fissure.? otherwise continue previous mgmt.? perhaps slight decrease in pressure and disorganization. 12/12: pedal edema no worse, perhaps better.? no GI side effects from lithium.? fissure looks improved with cream.? check lithium, tegretol, associated labs on wednesday (ordered).? titrate lithium as indicated. 12/13 pt manic, disorganized, intrusive, blaming, threatening (told telegraphic typewriter operator chief someone would come over and break his neck) -consider switching to Zyprexa from seroquel 12/14 her is manic, intrusive irritable, grandiose Ludlow level subtherapeutic; however patient is very anxious about this medication causing side effects and at this time telegraphic typewriter operator chief thinks it might be better to leave it is current dose since patient continues to take it and trying to increase it may very well cause him to refuse it altogether; he is also on Tegretol.? Perhaps switching antipsychotics to Zyprexa is warranted.? Patient says he has never taken Zyprexa before.? Patient typically knows his medication history however usually when someone gets on clozapine it is because most other medications have not worked.? Ludlow has just reached at steady state so will hold off making medication adjustments right now to see if there can be any further benefit observed from currently lithium dose and medication regimen. 12/15 no change; clonazepam at started off and was not restarted.? Patient did take p.o. laxatives and had a bowel movement says he feels better. 12/16:? increase tegretol from 600 BID to 600/800 tonight, as level around 7.? lithium sub-therapeutic but pt resistant to increase, will see how much better he can get on higher tegretol dosing.? T/C switching anti-psychotic to zyprexa, as pt has done well on clozaril in the past.? TEDs obtained for pedal edema. 12/17: no change in mgmt.? presentation not substantially changed.? some agitation today. 12/18: presentation essentially unchanged.? no agitation today, sleeping late morning. 12/19: Assessed for pedal edema, spoke with hospitalist, BNP, BMP wnl, venous d oppler wnl. Per hospitalist, continue with TEDs, may consider low dose lasix. 12/20: stable presentation.? continue current mgmt.? check tegretol level about a week after dose increase.? trending more calm than earlier in his stay but remains very psychotic.? T/C trial of olanzapine. 12/21:? taper and DC lithium and it appears to be having unsustainable physical side effects (B/L LE edema, now possibly with cellulitis).? also tested COVID POS today, satting mid 902 on RA.? hospitalist consult placed for eval of COVID severity and R/O cellulitis.? T/C olanzapine trial once lithium has been DCed. 12/22: stable, appears medically better than yesterday. continue lithium taper, to 150 BID tonight and tomorrow morning. start ibuprofen for better pain control with COVID. continue antibiotic and antiviral. 12/24 continue current tx. O2 sat >93, no s/s of respiratory distress. afebrile. 12/25: course of remdesivir complete, doxy ongoing. rash has not spread, likely related to edema and dependent limbs. less purpuric and more pinpoint red with bruising. edema improved. c/o productive cough, expectorant Rx'ed. otherwise continue current mgmt. per CDC guidelines, persons with moderate COVID (which includes having oxygen saturation less than 94%) should isolate for 10 days. 12/26: stable, in quarantine day #6 of 10. continue current mgmt. check labs on wednesday morning. 12/27: Continue current regimen and plans. Continue quarantine. 12/28: Continue current plans and regimen 12/29: increasingly disorganized and hyperverbal since DC of lithium. B/L pedal edema dose seem to be improving. day #9 of quarantine. tegretol level 8, other labs unremarkable aside from anemia. 12/30: obsessively scrubbing floor overnight, up all NOC. sleeping during day. more disorganized, hyperverbal. DC seroquel and start olanzapine 30 mg QHS. seroquel 200 mg PRNs for insomnia. 12/31: c/o persisting edema. perhaps lithium is not the largest offender; the only other change has been increasing tegretol dosing (edema identified as a side effect only in post-marketing, frequency not provided by [facility]). lasix 20 mg one time tomorrow morning. otherwise continue current mgmt. slept well last night with zyprexa at HS. 01/01: slept 3 hours overnight. give lasix 40 mg daily x 3 days as 20 mg dose this morning was not effective. pedal edema remains below the ankle. continue current mgmt otherwise. 01/02: continues to have only several hours of sleep at night. reports good diuresis on lasix 40. continue to monitor pedal edema and efficacy of olanzapine + tegretol (and perphenazine) regimen. 01/03 continue current plan. 01/04 continue tx. 01/05: no change to Tx plan. 01/06: increase zyprexa to 40 mg at HS, restart lasix 20 mg daily for pedal edema. trending more organized and less pressured, but by no means well. 01/07: continues to appear less pressured and more organized. paranoia persists. 01/08: more disorganized and pressured today. met with new [facility] mtg next wednesday. lasix increased to 40 mg to combat edema. 01/09: sleeping day shift. reportedly slept 5 hours last night. no change in presentation otherwise. continue current mgmt. 01/10/Continue treatment plan including HOLD on scheduled seroquel 01/11 Contnue current treatment plan 01/12: continue current mgmt. more calm and organized today than last week. mtg with sister tuesday 01/16. 01/13: continue current mgmt. continues more organized and calm. pursuing GINNA. 01/14: no change in mgmt. continues more linear, logical, topical. awaiting OT testing results. mtg with sister wednesday. 01/15: stable, no complaints or requests. scored 4.6 on OT testing, meaning he may live on his own with support at the level of check-ins weekly. mtg with sister tomorrow. 01/16: mtg with sister, OT, SW, . pt reactive, labile, disorganized, bizarre in the face of any discussion of his ability or lack thereof to live independently. at sister's urging, pt agreed to restart clozaril at 25 mg daily. 01/17: took clozapine 25 last night. increase dose again tomorrow. clearly agitated at the idea of being back on clozapine, quite hyper-aroused during interview with MD today. 01/18: increase clozapine to 50 mg QHS as of tonight. pt reports subjective improvement since restarting clozapine, no such improvement observed by clinical staff. I spent ___15___ minutes with the patient and/or on the patient floor today, greater than?50% of which was spent counseling/coordinating care. Reason for contiued inpatient stay Substantial Risk for: inability to function and med/psych decompensation
[2022-01-18 18:00] VITALS: BP 132/81; PULSE 86; RESP 16; TEMP 36.7; O2SAT 93
[2022-01-18] MEDS: hydrOXYzine HCL 50 MG TABLET PO (20:38)
[2022-01-18] MEDS: cloZAPine 25 MG TABLET 50 MG PO (22:00)
[2022-01-18] MEDS: Prazosin HCL 1 MG CAPSULE 2 MG PO (22:01)
[2022-01-18] MEDS: Tamsulosin HCL 0.4 MG CAPSULE PO (22:01)
[2022-01-18] MEDS: traZODone HCL 50 MG TABLET 150 MG PO (22:02)
[2022-01-18] MEDS: OLANZapine ODT 10 MG TAB.RAPDIS 40 MG TRANSLINGU (22:02)
[2022-01-18] MEDS: traZODone HCL 50 MG TABLET PO ×2 (22:02→23:31)
[2022-01-18] MEDS: Albuterol Sulfate 90 MCG 8 GM INHALER 2 PUFF INHALE (22:20)
[2022-01-18] MEDS: Artificial Tears 15 ML DROPS 2 DROP EYE-BOTH (22:20)
[2022-01-19] MEDS: Nicotine Polacrilex 2 MG GUM 4 MG BUCCAL ×12 (06:43→22:57)
[2022-01-19 07:50] VITALS: BP 134/80; PULSE 73; RESP 17; TEMP 36.6; O2SAT 97
[2022-01-19] MEDS: Ammonium Lactate 12 % Lotion 226 GM BOTTLE 1 APPL TOPICAL (07:52)
[2022-01-19] MEDS: Fluticasone/Vilanterol 100/25 BLST.W.DEV 1 PUFF INHALE (07:52)
[2022-01-19] MEDS: Famotidine 20 MG TABLET PO ×2 (07:53→21:00)
[2022-01-19] MEDS: carBAMazepine ER 200 MG TAB.ER.12H 800 MG PO ×2 (07:53→21:00)
[2022-01-19] MEDS: clonazePAM 1 MG TABLET PO ×3 (07:54→22:52)
[2022-01-19] MEDS: Vitamin E (Dl,Tocopheryl Acet) 180 MG (400 UNIT) CAPSULE PO ×2 (07:54→21:00)
[2022-01-19] MEDS: Ascorbic Acid 250 MG TABLET PO (07:54)
[2022-01-19] MEDS: Furosemide 40 MG TABLET PO (07:54)
[2022-01-19] MEDS: Ibuprofen 600 MG TABLET PO ×2 (07:55→22:39)
[2022-01-19] MEDS: hydrOXYzine HCL 50 MG TABLET PO ×3 (07:55→22:39)
[2022-01-19] MEDS: Perphenazine 8 MG TABLET 16 MG PO ×3 (07:55→20:59)
--- NOTE | 2022-01-19 13:20 | HO.PSYCHPN ---
Subjective Subjective Date of Service: 01/19/22 Reason For Visit: psychosis Interim History: calm, cooperative. seen in his room, where he was holding a copy of iron goetz's Siddharta. he said he prefers [place], as they are shorter, and he digests the books he reads. states he is doing reasonably well, states the clozapine is shutting him up and making him stronger because he is revealing less about himself as a result. no questions or complaints otherwise. per staff, denies AVH. safe. +RIS. sleeping, eating. belly-bucked wall last night for no apparent reason, just for fun. Mental Status Exam Mental Status Exam Narrative: dressed in street clothes. behavior is cooperative; adequate hygiene; affect normo-intense, non-labile; Speech incr rate, nml amount, nml loudness. nml prosody, decr latency; thought process tangential and loose. no delusions explicitly expressed. no SI/HI/AVH expressed. Patients insight and judgment are impaired. Diagnostics Vital Signs (24Hr): Vital Signs - 24 hr 01/18/22 18:00 01/19/22 07:50 Temperature 98.0 F 97.9 F Pulse Rate 86 73 Respiratory Rate 16 17 Blood Pressure 132/81 134/80 Pulse Oximetry 93 97 Oxygen Delivery Method Room Air Room Air BMI result Body Mass Index 30.7 Labs Results: 01/16/22 12:21 12/29/21 08:55 Imaging Radiology Impressions: ITS Impressions Venous Duplex 12/19/21 20:16 IMPRESSION: No DVT demonstrated in the bilateral lower extremity. Medications Medications Current Medications Acetaminophen (Acetaminophen 325 Mg Tablet) 650 mg PO Q6H PRN PRN Reason: Headache/Pain Mild Scale (1-3) Last Admin: 12/30/21 18:04 Dose: 650 mg Al Hydroxide/Mg Hydroxide (Magnesium Hydrox/Alum Hydrox 30 Ml Oral.Susp) 30 ml PO Q6H PRN PRN Reason: Heartburn/Nausea Last Admin: 01/12/22 08:43 Dose: 30 ml Albuterol Sulfate (Albuterol Sulfate 90 Mcg 8 Gm Inhaler) 2 puff INHALE Q4H PRN PRN Reason: shortness of breath or wheezing Last Admin: 01/18/22 22:20 Dose: 2 puff Artificial Tears (Artificial Tears 15 Ml Drops) 2 drop EYE-BOTH Q4H PRN PRN Reason: Dry Eyes Last Admin: 01/18/22 22:20 Dose: 2 drop Ascorbic Acid (Ascorbic Acid 250 Mg Tablet) 250 mg PO DAILY [facility] Last Admin: 01/19/22 07:54 Dose: 250 mg Benzocaine (Throat Lozenge, Medicated Lozenge) 1 lozenge MUCOUS MEM Q1H PRN PRN Reason: Sore Throat Last Admin: 12/27/21 06:54 Dose: 1 lozenge Bisacodyl (Bisacodyl 10 Mg Supp.Rect) 10 mg NE BEDTIME PRN PRN Reason: Constipation Last Admin: 12/06/21 21:14 Dose: 10 mg Carbamazepine (Carbamazepine Er 200 Mg Tab.Er.12h) 800 mg PO BEDTIME DAVY Last Admin: 01/18/22 22:01 Dose: 800 mg Carbamazepine (Carbamazepine Er 200 Mg Tab.Er.12h) 800 mg PO DAILY [facility] Last Admin: 01/19/22 07:53 Dose: 800 mg Clonazepam (Clonazepam 1 Mg Tablet) 1 mg PO TID DAVY Last Admin: 01/19/22 07:54 Dose: 1 mg Clozapine (Clozapine 25 Mg Tablet) 50 mg PO BEDTIME DAVY Last Admin: 01/18/22 22:00 Dose: 50 mg Famotidine (Famotidine 20 Mg Tablet) 20 mg PO BID [facility] Last Admin: 01/19/22 07:53 Dose: 20 mg Fluticasone/Vilanterol (Fluticasone/Vilanterol 100/25 Blst.W.Dev) 1 puff INHALE DAILY [facility] Last Admin: 01/19/22 07:52 Dose: 1 puff Furosemide (Furosemide 40 Mg Tablet) 40 mg PO DAILY [facility]; Protocol Last Admin: 01/19/22 07:54 Dose: 40 mg Guaifenesin (Guaifenesin La 600 Mg Tab.Er.12h) 600 mg PO BID PRN PRN Reason: thick secretions Last Admin: 01/03/22 23:25 Dose: 600 mg Hydroxyzine HCl (Hydroxyzine Hcl 50 Mg Tablet) 50 mg PO Q6H PRN PRN Reason: Anxiety Last Admin: 01/19/22 07:55 Dose: 50 mg Ibuprofen (Ibuprofen 600 Mg Tablet) 600 mg PO Q6H PRN PRN Reason: aches and pains Last Admin: 01/19/22 07:55 Dose: 600 mg Lactic Acid (Ammonium Lactate 12 % Lotion 226 Gm Bottle) 1 appl TOPICAL BID DAVY; Protocol Last Admin: 01/19/22 07:52 Dose: 1 appl Lidocaine/Diphenhydr/Alum/Mg/Simeth (Mag&Al/Sim/Diphenhyd/Lidocaine 10 Ml Oral.Susp) 10 ml PO Q4H PRN; Protocol PRN Reason: oral mucous membrane ulcer jeremiah Last Admin: 12/20/21 02:20 Dose: 10 ml Magnesium Hydroxide (Milk Of Magnesia 30 Ml Oral.Susp) 30 ml PO DAILY PRN PRN Reason: Constipation Last Admin: 01/17/22 17:31 Dose: 30 ml Nicotine Polacrilex (Nicotine Polacrilex 2 Mg Gum) 4 mg BUCCAL Q1H PRN PRN Reason: Nicotine Cravings Last Admin: 01/19/22 11:59 Dose: 4 mg Olanzapine (Olanzapine Odt 10 Mg Tab.Rapdis) 40 mg TRANSLINGU BEDTIME DAVY Last Admin: 01/18/22 22:02 Dose: 40 mg Perphenazine (Perphenazine 8 Mg Tablet) 16 mg PO TID DAVY Last Admin: 01/19/22 07:55 Dose: 16 mg Prazosin HCl (Prazosin Hcl 1 Mg Capsule) 2 mg PO BEDTIME DAVY; Protocol Last Admin: 01/18/22 22:01 Dose: 2 mg Psyllium Hydrophilic Mucilloid (Psyllium Seed 3.4 Gm Powd.Pack) 3.4 gm PO BID DAVY Last Admin: 01/19/22 07:52 Dose: 3.4 gm Quetiapine Fumarate (Quetiapine Fumarate 200 Mg Tablet) 200 mg PO Q2H PRN PRN Reason: insomnia/agitation Last Admin: 01/13/22 21:16 Dose: 200 mg Simethicone (Simethicone 80 Mg Tab.Chew) 80 mg PO QIDWMHS PRN PRN Reason: flatulence Last Admin: 12/20/21 22:49 Dose: 80 mg Tamsulosin HCl (Tamsulosin Hcl 0.4 Mg Capsule) 0.4 mg PO BEDTIME DAVY Last Admin: 01/18/22 22:01 Dose: 0.4 mg Trazodone HCl (Trazodone Hcl 50 Mg Tablet) 150 mg PO BEDTIME DAVY Last Admin: 01/18/22 22:02 Dose: 150 mg Trazodone HCl (Trazodone Hcl 50 Mg Tablet) 50 mg PO BEDTIME PRN PRN Reason: Insomnia Last Admin: 01/18/22 23:31 Dose: 50 mg Vitamin E (Vitamin E (Dl,Tocopheryl Acet) 180 Mg (400 Unit) Capsule) 180 mg PO BID DAVY Last Admin: 01/19/22 07:54 Dose: 180 mg Allergies Allergies Allergy/AdvReac Type Severity Reaction Status Date / Time divalproex sodium Allergy Severe PANCREATITI Verified 11/24/21 14:34 [From DEPAKOTE] S haloperidol [From Haldol] Allergy Intermediate DYSTONIC Verified 11/24/21 14:34 REACTION Assessment & Plan Assessment & Plan (1) Schizoaffective disorder: Status: Acute Code(s): F25.9 - Schizoaffective disorder, unspecified (2) Cellulitis: Status: Acute Code(s): L03.90 - Cellulitis, unspecified Assessment and Plan: 51yo M with COPD, HLD, obesity, BPH, ex-smoker, bipolar-type schizoaffective disorder admitted to [facility]. Developed infection of R foot yesterday as well as symptomatic Covid-19 infection without hypoxia. # nonpurulent cellulitis - doxycycline x7d. no need for blood culture. monitor clinically for improvement. (3) COVID-19: Status: Acute Code(s): U07.1 - COVID-19 Assessment and Plan: 51yo M with COPD, HLD, obesity, BPH, ex-smoker, bipolar-type schizoaffective disorder admitted to [facility]. Developed infection of R foot yesterday as well as symptomatic Covid-19 infection without hypoxia. # Covid-19 infection - not hypoxic; no steroids indicated. Paxlovid contraindicated by use of carbamezapine. can give 3 days of IV remdesivir as alternative. Monitor SaO2 qshift. beginning 12/20/21, isolation x5d then mask-wearing x5d Plan 12/03: continue home meds for now. CV rejected as pt unable to appreciate the circumstances of his admission. will need commitment and benedicto's order. T/C restarting clozaril and lithium, on which pt did well for many years, reportedly. tegretol increased from 400 BID to 600 BID at admission. 12/04: klonopin 0.5/0.5/1 reinstated 12/04 (outpt provider had started it 11/25 at 1 mg TID). magic mouthwash started for oral ulcers. 12/05: slept well last night, still pressured and disorganized.? continue current mgmt. 12/08: 12b up, applied for commitment and meds.? making sexually inappropriate comments/suggestions to staff, threatening violence and toward male peer. 12/09: same presentation as yesterday.? started lithium 450 mg BID today. 12/10: no change in presentation, compliant with lithium. 12/11: DC prazosin to see if B/L pedal edema decreases.? DC pravachol as pt is refusing it.? order lac-hydrin for plantar fissure.? otherwise continue previous mgmt.? perhaps slight decrease in pressure and disorganization. 12/12: pedal edema no worse, perhaps better.? no GI side effects from lithium.? fissure looks improved with cream.? check lithium, tegretol, associated labs on wednesday (ordered).? titrate lithium as indicated. 12/13 pt manic, disorganized, intrusive, blaming, threatening (told senior underwriter someone would come over and break his neck) -consider switching to Zyprexa from seroquel 12/14 her is manic, intrusive irritable, grandiose Runge level subtherapeutic; however patient is very anxious about this medication causing side effects and at this time senior underwriter thinks it might be better to leave it is current dose since patient continues to take it and trying to increase it may very well cause him to refuse it altogether; he is also on Tegretol.? Perhaps switching antipsychotics to Zyprexa is warranted.? Patient says he has never taken Zyprexa before.? Patient typically knows his medication history however usually when someone gets on clozapine it is because most other medications have not worked.? Runge has just reached at steady state so will hold off making medication adjustments right now to see if there can be any further benefit observed from currently lithium dose and medication regimen. 12/15 no change; clonazepam at started off and was not restarted.? Patient did take p.o. laxatives and had a bowel movement says he feels better. 12/16:? increase tegretol from 600 BID to 600/800 tonight, as level around 7.? lithium sub-therapeutic but pt resistant to increase, will see how much better he can get on higher tegretol dosing.? T/C switching anti-psychotic to zyprexa, as pt has done well on clozaril in the past.? TEDs obtained for pedal edema. 12/17: no change in mgmt.? presentation not substantially changed.? some agitation today. 12/18: presentation essentially unchanged.? no agitation today, sleeping late morning. 12/19: Assessed for pedal edema, spoke with hospitalist, BNP, BMP wnl, venous doppler wnl. Per hospitalist, continue with TEDs, may consider low dose lasix. 12/20: stable presentation.? continue current mgmt.? check tegretol level about a week after dose increase.? trending more calm than earlier in his stay but remains very psychotic.? T/C trial of olanzapine. 12/21:? taper and DC lithium and it appears to be having unsustainable physical side effects (B/L LE edema, now possibly with cellulitis).? also tested COVID POS today, satting mid 902 on RA.? hospitalist consult placed for eval of COVID severity and R/O cellulitis.? T/C olanzapine trial once lithium has been DCed. 12/22: stable, appears medically better than yesterday. continue lithium taper, to 150 BID tonight and tomorrow morning. start ibuprofen for better pain control with COVID. continue antibiotic and antiviral. 12/24 continue current tx. O2 sat >93, no s/s of respiratory distress. afebrile. 12/25: course of remdesivir complete, doxy ongoing. rash has not spread, likely related to edema and dependent limbs. less purpuric and more pinpoint red with bruising. edema improved. c/o productive cough, expectorant Rx'ed. otherwise continue current mgmt. per CDC guidelines, persons with moderate COVID (which includes having oxygen saturation less than 94%) should isolate for 10 days. 12/26: stable, in quarantine day #6 of . continue current mgmt. check labs on wednesday morning. 12/27: Continue current regimen and plans. Continue quarantine. 12/28: Continue current plans and regimen 12/29: increasingly disorganized and hyperverbal since DC of lithium. B/L pedal edema dose seem to be improving. day #9 of quarantine. tegretol level 8, other labs unremarkable aside from anemia. 12/30: obsessively scrubbing floor overnight, up all NOC. sleeping during day. more disorganized, hyperverbal. DC seroquel and start olanzapine 30 mg QHS. seroquel 200 mg PRNs for insomnia. 12/31: c/o persisting edema. perhaps lithium is not the largest offender; the only other change has been increasing tegretol dosing (edema identified as a side effect only in post-marketing, frequency not provided by [facility]). lasix 20 mg one time tomorrow morning. otherwise continue current mgmt. slept well last night with zyprexa at HS. 01/01: slept 3 hours overnight. give lasix 40 mg daily x 3 days as 20 mg dose this morning was not effective. pedal edema remains below the ankle. continue current mgmt otherwise. 01/02: continues to have only several hours of sleep at night. reports good diuresis on lasix 40. continue to monitor pedal edema and efficacy of olanzapine + tegretol (and perphenazine) regimen. 01/03 continue current plan. 01/04 continue tx. 01/05: no change to Tx plan. 01/06: increase zyprexa to 40 mg at HS, restart lasix 20 mg daily for pedal edema. trending more organized and less pressured, but by no means well. 01/07: continues to appear less pressured and more organized. paranoia persists. 01/08: more disorganized and pressured today. met with new RENEE. [facility] mtg next wednesday. lasix increased to 40 mg to combat edema. 01/09: sleeping day shift. reportedly slept 5 hours last night. no change in presentation otherwise. continue current mgmt. 01/10/Continue treatment plan including HOLD on scheduled seroquel 01/11 Contnue current treatment plan 01/12: continue current mgmt. more calm and organized today than last week. mtg with sister tuesday 01/16. 01/13: continue current mgmt. continues more organized and calm. pursuing GINNA. 01/14: no change in mgmt. continues more linear, logical, topical. awaiting OT testing results. mtg with sister wednesday. 01/15: stable, no complaints or requests. scored 4.6 on OT testing, meaning he may live on his own with support at the level of check-ins weekly. mtg with sister tomorrow. 01/16: mtg with sister, OT, SW, . pt reactive, labile, disorganized, bizarre in the face of any discussion of his ability or lack thereof to live independently. at sister's urging, pt agreed to restart clozaril at 25 mg daily. 01/17: took clozapine 25 last night. increase dose again tomorrow. clearly agitated at the idea of being back on clozapine, quite hyper-aroused during interview with MD today. 01/18: increase clozapine to 50 mg QHS as of tonight. pt reports subjective improvement since restarting clozapine, no such improvement observed by clinical staff. 01/19: continue current mgmt. increase clozapine to 75 mg tomorrow. less labile and paranoid today. I spent ___15___ minutes with the patient and/or on the patient floor today, greater than?50% of which was spent counseling/coordinating care. Reason for contiued inpatient stay Substantial Risk for: inability to function and rapid decompensation
[2022-01-19] MEDS: Simethicone 80 MG TAB.CHEW PO (17:29)
[2022-01-19 19:22] VITALS: BP 125/68; PULSE 67; RESP 16; TEMP 36.4; O2SAT 98
[2022-01-19] MEDS: cloZAPine 25 MG TABLET 50 MG PO (20:58)
[2022-01-19] MEDS: traZODone HCL 50 MG TABLET 150 MG PO ×2 (20:59→22:39)
[2022-01-19] MEDS: Tamsulosin HCL 0.4 MG CAPSULE PO (20:59)
[2022-01-19] MEDS: OLANZapine ODT 10 MG TAB.RAPDIS 40 MG TRANSLINGU (20:59)
[2022-01-19] MEDS: Prazosin HCL 1 MG CAPSULE 2 MG PO (21:00)
[2022-01-19] MEDS: Albuterol Sulfate 90 MCG 8 GM INHALER 2 PUFF INHALE (22:39)
[2022-01-19] MEDS: Artificial Tears 15 ML DROPS 2 DROP EYE-BOTH (22:40)
[2022-01-20] MEDS: Nicotine Polacrilex 2 MG GUM 4 MG BUCCAL ×9 (05:36→23:12)
[2022-01-20] MEDS: Ibuprofen 600 MG TABLET PO (06:05)
[2022-01-20] MEDS: hydrOXYzine HCL 50 MG TABLET PO (06:05)
[2022-01-20 08:18] VITALS: BP 120/68; PULSE 73; RESP 20; TEMP 36.2; O2SAT 97
[2022-01-20] MEDS: Furosemide 40 MG TABLET PO (08:20)
[2022-01-20] MEDS: Famotidine 20 MG TABLET PO ×2 (08:20→22:47)
[2022-01-20] MEDS: carBAMazepine ER 200 MG TAB.ER.12H 800 MG PO ×2 (08:20→22:47)
[2022-01-20] MEDS: Perphenazine 8 MG TABLET 16 MG PO ×3 (08:21→22:49)
[2022-01-20] MEDS: clonazePAM 1 MG TABLET PO ×2 (08:21→14:31)
[2022-01-20] MEDS: Ascorbic Acid 250 MG TABLET PO (08:21)
[2022-01-20] MEDS: Vitamin E (Dl,Tocopheryl Acet) 180 MG (400 UNIT) CAPSULE PO ×2 (08:21→22:49)
[2022-01-20] MEDS: Fluticasone/Vilanterol 100/25 BLST.W.DEV 1 PUFF INHALE (09:59)
--- NOTE | 2022-01-20 14:14 | P.PNPSI_ITS ---
Subjective Subjective Date of Service: 01/20/22 Reason For Visit: psychosis Interim History: calm, cooperative. seated in his room eating a roast beef sandwich his sister brought in for him. denies any side effects from clozaril, informed we will increase to 75 mg tonight. no other complaints or requests. informed MD will be out for a week and kin will be covering. per staff, eating and sleeping well. denying all psych Sx but appear to be RIS. attending groups. slept 5.5 hrs overnight. Mental Status Exam Mental Status Exam Narrative: dressed in street clothes. behavior is cooperative; adequate hygiene; affect normo-intense, non-labile; Speech incr rate, nml amount, nml loudness. nml prosody, decr latency; thought process tangential and loose. no delusions explicitly expressed. no SI/HI/AVH expressed. Patients insight and judgment are impaired. Diagnostics Vital Signs (24Hr): Vital Signs - 24 hr 01/19/22 19:22 01/20/22 08:18 Temperature 97.5 F 97.1 F Pulse Rate 67 73 Respiratory Rate 16 20 Blood Pressure 125/68 120/68 Pulse Oximetry 98 97 Oxygen Delivery Method Room Air Room Air BMI result Body Mass Index 30.7 Labs Results: 01/16/22 12:21 12/29/21 08:55 Imaging Radiology Impressions: ITS Impressions Venous Duplex 12/19/21 20:16 IMPRESSION: No DVT demonstrated in the bilateral lower extremity. Medications Medications Current Medications Acetaminophen (Acetaminophen 325 Mg Tablet) 650 mg PO Q6H PRN PRN Reason: Headache/Pain Mild Scale (1-3) Last Admin: 12/30/21 18:04 Dose: 650 mg Al Hydroxide/Mg Hydroxide (Magnesium Hydrox/Alum Hydrox 30 Ml Oral.Susp) 30 ml PO Q6H PRN PRN Reason: Heartburn/Nausea Last Admin: 01/12/22 08:43 Dose: 30 ml Albuterol Sulfate (Albuterol Sulfate 90 Mcg 8 Gm Inhaler) 2 puff INHALE Q4H PRN PRN Reason: shortness of breath or wheezing Last Admin: 01/19/22 22:39 Dose: 2 puff Artificial Tears (Artificial Tears 15 Ml Drops) 2 drop EYE-BOTH Q4H PRN PRN Reason: Dry Eyes Last Admin: 01/19/22 22:40 Dose: 2 drop Ascorbic Acid (Ascorbic Acid 250 Mg Tablet) 250 mg PO DAILY DAVY Last Admin: 01/20/22 08:21 Dose: 250 mg Benzocaine (Throat Lozenge, Medicated Lozenge) 1 lozenge MUCOUS MEM Q1H PRN PRN Reason: Sore Throat Last Admin: 12/27/21 06:54 Dose: 1 lozenge Bisacodyl (Bisacodyl 10 Mg Supp.Rect) 10 mg OR BEDTIME PRN PRN Reason: Constipation Last Admin: 12/06/21 21:14 Dose: 10 mg Carbamazepine (Carbamazepine Er 200 Mg Tab.Er.12h) 800 mg PO BEDTIME DAVY Last Admin: 01/19/22 21:00 Dose: 800 mg Carbamazepine (Carbamazepine Er 200 Mg Tab.Er.12h) 800 mg PO DAILY DAVY Last Admin: 01/20/22 08:20 Dose: 800 mg Clonazepam (Clonazepam 1 Mg Tablet) 1 mg PO TID DAVY Last Admin: 01/20/22 08:21 Dose: 1 mg Clozapine (Clozapine 25 Mg Tablet) 75 mg PO BEDTIME DAVY Famotidine (Famotidine 20 Mg Tablet) 20 mg PO BID DAVY Last Admin: 01/20/22 08:20 Dose: 20 mg Fluticasone/Vilanterol (Fluticasone/Vilanterol 100/25 Blst.W.Dev) 1 puff INHALE DAILY [facility] Last Admin: 01/20/22 09:59 Dose: 1 puff Furosemide (Furosemide 40 Mg Tablet) 40 mg PO DAILY DAVY; Protocol Last Admin: 01/20/22 08:20 Dose: 40 mg Guaifenesin (Guaifenesin La 600 Mg Tab.Er.12h) 600 mg PO BID PRN PRN Reason: thick secretions Last Admin: 01/03/22 23:25 Dose: 600 mg Hydroxyzine HCl (Hydroxyzine Hcl 50 Mg Tablet) 50 mg PO Q6H PRN PRN Reason: Anxiety Last Admin: 01/20/22 06:05 Dose: 50 mg Ibuprofen (Ibuprofen 600 Mg Tablet) 600 mg PO Q6H PRN PRN Reason: aches and pains Last Admin: 01/20/22 06:05 Dose: 600 mg Lactic Acid (Ammonium Lactate 12 % Lotion 226 Gm Bottle) 1 appl TOPICAL BID DAVY; Protocol Last Admin: 01/20/22 08:21 Dose: Not Given Lidocaine/Diphenhydr/Alum/Mg/Simeth (Mag&Al/Sim/Diphenhyd/Lidocaine 10 Ml Oral.Susp) 10 ml PO Q4H PRN; Protocol PRN Reason: oral mucous membrane ulcer jeremiah Last Admin: 12/20/21 02:20 Dose: 10 ml Magnesium Hydroxide (Milk Of Magnesia 30 Ml Oral.Susp) 30 ml PO DAILY PRN PRN Reason: Constipation Last Admin: 01/17/22 17:31 Dose: 30 ml Nicotine Polacrilex (Nicotine Polacrilex 2 Mg Gum) 4 mg BUCCAL Q1H PRN PRN Reason: Nicotine Cravings Last Admin: 01/20/22 12:54 Dose: 4 mg Olanzapine (Olanzapine Odt 10 Mg Tab.Rapdis) 40 mg TRANSLINGU BEDTIME DAVY Last Admin: 01/19/22 20:59 Dose: 40 mg Perphenazine (Perphenazine 8 Mg Tablet) 16 mg PO TID DAVY Last Admin: 01/20/22 08:21 Dose: 16 mg Prazosin HCl (Prazosin Hcl 1 Mg Capsule) 2 mg PO BEDTIME DAVY; Protocol Last Admin: 01/19/22 21:00 Dose: 2 mg Psyllium Hydrophilic Mucilloid (Psyllium Seed 3.4 Gm Powd.Pack) 3.4 gm PO BID DAVY Last Admin: 01/20/22 08:22 Dose: 3.4 gm Quetiapine Fumarate (Quetiapine Fumarate 200 Mg Tablet) 200 mg PO Q2H PRN PRN Reason: insomnia/agitation Last Admin: 01/13/22 21:16 Dose: 200 mg Simethicone (Simethicone 80 Mg Tab.Chew) 80 mg PO QIDWMHS PRN PRN Reason: flatulence Last Admin: 01/19/22 17:29 Dose: 80 mg Tamsulosin HCl (Tamsulosin Hcl 0.4 Mg Capsule) 0.4 mg PO BEDTIME DAVY Last Admin: 01/19/22 20:59 Dose: 0.4 mg Trazodone HCl (Trazodone Hcl 50 Mg Tablet) 150 mg PO BEDTIME DAVY Last Admin: 01/19/22 22:39 Dose: 150 mg Trazodone HCl (Trazodone Hcl 50 Mg Tablet) 50 mg PO BEDTIME PRN PRN Reason: Insomnia Last Admin: 01/18/22 23:31 Dose: 50 mg Vitamin E (Vitamin E (Dl,Tocopheryl Acet) 180 Mg (400 Unit) Capsule) 180 mg PO BID DAVY Last Admin: 01/20/22 08:21 Dose: 180 mg Allergies Allergies Allergy/AdvReac Type Severity Reaction Status Date / Time divalproex sodium Allergy Severe PANCREATITI Verified 11/24/21 14:34 [From DEPAKOTE] S haloperidol [From Haldol] Allergy Intermediate DYSTONIC Verified 11/24/21 14:34 REACTION Assessment & Plan Assessment & Plan (1) Schizoaffective disorder: Status: Acute Code(s): F25.9 - Schizoaffective disorder, unspecified (2) Cellulitis: Status: Acute Code(s): L03.90 - Cellulitis, unspecified Assessment and Plan: 51yo M with COPD, HLD, obesity, BPH, ex-smoker, bipolar-type schizoaffective disorder admitted to [facility]. Developed infection of R foot yesterday as well as symptomatic Covid-19 infection without hypoxia. # nonpurulent cellulitis - doxycycline x7d. no need for blood culture. monitor clinically for improvement. (3) COVID-19: Status: Acute Code(s): U07.1 - COVID-19 Assessment and Plan: 51yo M with COPD, HLD, obesity, BPH, ex-smoker, bipolar-type schizoaffective disorder admitted to [facility]. Developed infection of R foot yesterday as well as symptomatic Covid-19 infection without hypoxia. # Covid-19 infection - not hypoxic; no steroids indicated. Paxlovid contraindicated by use of carbam ezapine. can give 3 days of IV remdesivir as alternative. Monitor SaO2 qshift. beginning 12/20/21, isolation x5d then mask-wearing x5d Plan 12/03: continue home meds for now. CV rejected as pt unable to appreciate the circumstances of his admission. will need commitment and benedicto's order. T/C restarting clozaril and lithium, on which pt did well for many years, reportedly. tegretol increased from 400 BID to 600 BID at admission. 12/04: klonopin 0.5/0.5/1 reinstated 12/04 (outpt provider had started it 11/25 at 1 mg TID). magic mouthwash started for oral ulcers. 12/05: slept well last night, still pressured and disorganized.? continue current mgmt. 12/08: 12b up, applied for commitment and meds.? making sexually inappropriate comments/suggestions to staff, threatening violence and toward male peer. 12/09: same presentation as yesterday.? started lithium 450 mg BID today. 12/10: no change in presentation, compliant with lithium. 12/11: DC prazosin to see if B/L pedal edema decreases.? DC pravachol as pt is refusing it.? order lac-hydrin for plantar fissure.? otherwise continue previous mgmt.? perhaps slight decrease in pressure and disorganization. 12/12: pedal edema no worse, perhaps better.? no GI side effects from lithium.? fissure looks improved with cream.? check lithium, tegretol, associated labs on wednesday (ordered).? titrate lithium as indicated. 12/13 pt manic, disorganized, intrusive, blaming, threatening (told typewriter aligner so meone would come over and break his neck) -consider switching to Zyprexa from seroquel 12/14 her is manic, intrusive irritable, grandiose [place] level subtherapeutic; however patient is very anxious about this medication causing side effects and at this time typewriter aligner thinks it might be better to leave it is current dose since patient continues to take it and trying to increase it may very well cause him to refuse it altogether; he is also on Tegretol.? Perhaps switching antipsychotics to Zyprexa is warranted.? Patient says he has never taken Zyprexa before.? Patient typically knows his medication history however usually when someone gets on clozapine it is because most other medications have not worked.? [place] has just reached at steady state so will hold off making medication adjustments right now to see if there can be any further benefit observed from currently lithium dose and medication regimen. 12/15 no change; clonazepam at started off and was not restarted.? Patient did take p.o. laxatives and had a bowel movement says he feels better. 12/16:? increase tegretol from 600 BID to 600/800 tonight, as level around 7.? lithium sub-therapeutic but pt resistant to increase, will see how much better he can get on higher tegretol dosing.? T/C switching anti-psychotic to zyprexa, as pt has done well on clozaril in the past.? TEDs obtained for pedal edema. 12/17: no change in mgmt.? presentation not substantially changed.? some agitation today. 12/18: presentation essentially unchanged.? no agitation today, sleeping late morning. 12/19: Assessed for pedal edema, spoke with hospitalist, BNP, BMP wnl, venous doppler wnl. Per hospitalist, continue with TEDs, may consider low dose lasix. 12/20: stable presentation.? continue current mgmt.? check tegretol level about a week after dose increase.? trending more calm than earlier in his stay but remains very psychotic.? T/C trial of olanzapine. 12/21:? taper and DC lithium and it appears to be having unsustainable physical side effects (B/L LE edema, now possibly with cellulitis).? also tested COVID POS today, satting mid 902 on RA.? hospitalist consult placed for eval of COVID severity and R/O cellulitis.? T/C olanzapine trial once lithium has been DCed. 12/22: stable, appears medically better than yesterday. continue lithium taper, to 150 BID tonight and tomorrow morning. start ibuprofen for better pain control with COVID. continue antibiotic and antiviral. 12/24 continue current tx. O2 sat >93, no s/s of respiratory distress. afebrile. 12/25: course of remdesivir complete, doxy ongoing. rash has not spread, likely related to edema and dependent limbs. less purpuric and more pinpoint red with bruising. edema improved. c/o productive cough, expectorant Rx'ed. otherwise continue current mgmt. per CDC guidelines, persons with moderate COVID (which includes having oxygen saturation less than 94%) should isolate for 10 days. 12/26: stable, in quarantine day #6 of . continue current mgmt. check labs on wednesday morning. 12/27: Continue current regimen and plans. Continue quarantine. 12/28: Continue current plans and regimen 12/29: increasingly disorganized and hyperverbal since DC of lithium. B/L pedal edema dose seem to be improving. day #9 of quarantine. tegretol level 8, other labs unremarkable aside from anemia. 12/30: obsessively scrubbing floor overnight, up all NOC. sleeping during day. more disorganized, hyperverbal. DC seroquel and start olanzapine 30 mg QHS. seroquel 200 mg PRNs for insomnia. 12/31: c/o persisting edema. perhaps lithium is not the largest offender; the only other change has been increasing tegretol dosing (edema identified as a side effect only in post-marketing, frequency not provided by [facility]). lasix 20 mg one time tomorrow morning. otherwise continue current mgmt. slept well last night with zyprexa at HS. 01/01: slept 3 hours overnight. give lasix 40 mg daily x 3 days as 20 mg dose this morning was not effective. pedal edema remains below the ankle. continue current mgmt otherwise. 01/02: continues to have only several hours of sleep at night. reports good diuresis on lasix 40. continue to monitor pedal edema and efficacy of o lanzapine + tegretol (and perphenazine) regimen. 01/03 continue current plan. 01/04 continue tx. 01/05: no change to Tx plan. 01/06: increase zyprexa to 40 mg at HS, restart lasix 20 mg daily for pedal edema. trending more organized and less pressured, but by no means well. 01/07: continues to appear less pressured and more organized. paranoia persists. 01/08: more disorganized and pressured today. met with new RENEE. [facility] mtg next wednesday. lasix increased to 40 mg to combat edema. 01/09: sleeping day shift. reportedly slept 5 hours last night. no change in presentation otherwise. continue current mgmt. 01/10/Continue treatment plan including HOLD on scheduled seroquel 01/11 Contnue current treatment plan 01/12: continue current mgmt. more calm and organized today than last week. mtg with sister tuesday 01/16. 01/13: continue current mgmt. continues more organized and calm. pursuing GINNA. 01/14: no change in mgmt. continues more linear, logical, topical. awaiting OT testing results. mtg with sister wednesday. 01/15: stable, no complaints or requests. scored 4.6 on OT testing, meaning he may live on his own with support at the level of check-ins weekly. mtg with sister tomorrow. 01/16: mtg with sister, OT, SWMD. pt reactive, labile, disorganized, bizarre in the face of any discussion of his ability or lack thereof to live independently. at sister's urging, pt agreed to restart clozaril at 25 mg daily. 01/17: took clozapine 25 last night. increase dose again tomorrow. clearly agitated at the idea of being back on clozapine, quite hyper-aroused during interview with MD today. 01/18: increase clozapine to 50 mg QHS as of tonight. pt reports subjective improvement since restarting clozapine, no such improvement observed by clinical staff. 01/19: continue current mgmt. increase clozapine to 75 mg tomorrow. less labile and paranoid today. 01/20: presentation as per yesterday. denies side effects from medication. increase clozapine to 75 mg as of this evening. I spent ___20___ minutes with the patient and/or on the patient floor today, greater than?50% of which was spent counseling/coordinating care. Reason for contiued inpatient stay Substantial Risk for: inability to function and rapid decompensation
[2022-01-20] MEDS: Simethicone 80 MG TAB.CHEW PO (16:37)
[2022-01-20 18:00] VITALS: BP 125/73; PULSE 70; RESP 16; TEMP 36.5; O2SAT 98
[2022-01-20] MEDS: Tamsulosin HCL 0.4 MG CAPSULE PO (22:47)
[2022-01-20] MEDS: traZODone HCL 50 MG TABLET 150 MG PO (22:48)
[2022-01-20] MEDS: cloZAPine 25 MG TABLET 75 MG PO (22:48)
[2022-01-20] MEDS: Prazosin HCL 1 MG CAPSULE 2 MG PO (22:49)
[2022-01-20] MEDS: OLANZapine ODT 10 MG TAB.RAPDIS 40 MG TRANSLINGU (22:49)
[2022-01-21] MEDS: Nicotine Polacrilex 2 MG GUM 4 MG BUCCAL ×10 (00:58→22:17)
--- NOTE | 2022-01-21 05:50 | PC.NURSE ---
(Late entry) 01/20/22 - At approx 2300, as this RN was attempting to give pt his medications, pt made an inappropriate comment with seemingly no relavance to the conversation. Pt stated you wanna come to this room for some fornication, some adultery? You wanna have sex? Pt was firmly redirected and told this was inappropriate. He then changed the subject. Later when staff made attempt to debrief about this incident he reported having no memory of saying this and was unsure why he would have said it.
[2022-01-21 08:37] VITALS: BP 132/70; PULSE 81; RESP 20; TEMP 36.7; O2SAT 94
[2022-01-21] MEDS: Furosemide 40 MG TABLET PO (08:38)
[2022-01-21] MEDS: Perphenazine 8 MG TABLET 16 MG PO ×3 (08:38→22:05)
[2022-01-21] MEDS: Vitamin E (Dl,Tocopheryl Acet) 180 MG (400 UNIT) CAPSULE PO ×2 (08:38→22:05)
[2022-01-21] MEDS: carBAMazepine ER 200 MG TAB.ER.12H 800 MG PO ×2 (08:39→22:04)
[2022-01-21] MEDS: Ascorbic Acid 250 MG TABLET PO (08:39)
[2022-01-21] MEDS: Famotidine 20 MG TABLET PO ×2 (08:39→22:04)
[2022-01-21] MEDS: Fluticasone/Vilanterol 100/25 BLST.W.DEV 1 PUFF INHALE (10:40)
--- NOTE | 2022-01-21 13:32 | P.PNPSI_ITS ---
Subjective Subjective Date of Service: 01/21/22 Reason For Visit: psychosis Subjective Notes: Section 8 Interim History: Pt reports difficulty sleeping in his room, due to roommate having excessive gas. Pt slept in sensory room. Per nursing, he had innapropriate boundaries with female RN asking her to have sex with him. No intrusive or physical advances and was able to be redirected. Today, pt reports doing well. He agrees to increase of clozaril to 100mg po qhs. Pt asks to monitor bilat swelling of legs with medication changes. He reports eating well. Speech more organized. No SI/HI. No behavioral concerns. Medication Compliance: Yes Review of Systems Review of Systems Lower extremity edema Yes all other systems are reviewed and are negative and Unobtainable due to mental status Mental Status Exam Mental Status Exam Narrative: dressed in street clothes. behavior is cooperative; adequate hygiene; affect normo-intense, non-labile; Speech incr rate, nml amount, nml loudness. nml prosody, decr latency; thought process tangential and loose. no delusions explicitly expressed. no SI/HI/AVH expressed. Patients insight and judgment are impaired. Diagnostics Vital Signs (24Hr): Vital Signs - 24 hr 01/20/22 18:00 01/21/22 08:37 Temperature 97.7 F 98.0 F Pulse Rate 70 81 Respiratory Rate 16 20 Blood Pressure 125/73 132/70 Pulse Oximetry 98 94 Oxygen Delivery Method Room Air Room Air BMI result Body Mass Index 30.7 Labs Results: 01/16/22 12:21 12/29/21 08:55 Imaging Radiology Impressions: ITS Impressions Venous Duplex 12/19/21 20:16 IMPRESSION: No DVT demonstrated in the bilateral lower extremity. Medications Medications Current Medications Acetaminophen (Acetaminophen 325 Mg Tablet) 650 mg PO Q6H PRN PRN Reason: Headache/Pain Mild Scale (1-3) Last Admin: 12/30/21 18:04 Dose: 650 mg Al Hydroxide/Mg Hydroxide (Magnesium Hydrox/Alum Hydrox 30 Ml Oral.Susp) 30 ml PO Q6H PRN PRN Reason: Heartburn/Nausea Last Admin: 01/12/22 08:43 Dose: 30 ml Albuterol Sulfate (Albuterol Sulfate 90 Mcg 8 Gm Inhaler) 2 puff INHALE Q4H PRN PRN Reason: shortness of breath or wheezing Last Admin: 01/19/22 22:39 Dose: 2 puff Artificial Tears (Artificial Tears 15 Ml Drops) 2 drop EYE-BOTH Q4H PRN PRN Reason: Dry Eyes Last Admin: 01/19/22 22:40 Dose: 2 drop Ascorbic Acid (Ascorbic Acid 250 Mg Tablet) 250 mg PO DAILY DAVY Last Admin: 01/21/22 08:39 Dose: 250 mg Benzocaine (Throat Lozenge, Medicated Lozenge) 1 lozenge MUCOUS MEM Q1H PRN PRN Reason: Sore Throat Last Admin: 12/27/21 06:54 Dose: 1 lozenge Bisacodyl (Bisacodyl 10 Mg Supp.Rect) 10 mg HI BEDTIME PRN PRN Reason: Constipation Last Admin: 12/06/21 21:14 Dose: 10 mg Carbamazepine (Carbamazepine Er 200 Mg Tab.Er.12h) 800 mg PO BEDTIME DAVY Last Admin: 01/20/22 22:47 Dose: 800 mg Carbamazepine (Carbamazepine Er 200 Mg Tab.Er.12h) 800 mg PO DAILY [facility] Last Admin: 01/21/22 08:39 Dose: 800 mg Clonazepam (Clonazepam 0.125 Mg Tab.Rapdis) 1 mg PO TID DAVY Clozapine (Clozapine 100 Mg Tablet) 100 mg PO BEDTIME DAVY Famotidine (Famotidine 20 Mg Tablet) 20 mg PO BID [facility] Last Admin: 01/21/22 08:39 Dose: 20 mg Fluticasone/Vilanterol (Fluticasone/Vilanterol 100/25 Blst.W.Dev) 1 puff INHALE DAILY [facility] Last Admin: 01/21/22 10:40 Dose: 1 puff Furosemide (Furosemide 40 Mg Tablet) 40 mg PO DAILY [facility]; Protocol Last Admin: 01/21/22 08:38 Dose: 40 mg Guaifenesin (Guaifenesin La 600 Mg Tab.Er.12h) 600 mg PO BID PRN PRN Reason: thick secretions Last Admin: 01/03/22 23:25 Dose: 600 mg Hydroxyzine HCl (Hydroxyzine Hcl 50 Mg Tablet) 50 mg PO Q6H PRN PRN Reason: Anxiety Last Admin: 01/20/22 06:05 Dose: 50 mg Ibuprofen (Ibuprofen 600 Mg Tablet) 600 mg PO Q6H PRN PRN Reason: aches and pains Last Admin: 01/20/22 06:05 Dose: 600 mg Lactic Acid (Ammonium Lactate 12 % Lotion 226 Gm Bottle) 1 appl TOPICAL BID DAVY; Protocol Last Admin: 01/21/22 08:39 Dose: Not Given Lidocaine/Diphenhydr/Alum/Mg/Simeth (Mag&Al/Sim/Diphenhyd/Lidocaine 10 Ml Oral.Susp) 10 ml PO Q4H PRN; Protocol PRN Reason: oral mucous membrane ulcer jeremiah Last Admin: 12/20/21 02:20 Dose: 10 ml Magnesium Hydroxide (Milk Of Magnesia 30 Ml Oral.Susp) 30 ml PO DAILY PRN PRN Reason: Constipation Last Admin: 01/17/22 17:31 Dose: 30 ml Nicotine Polacrilex (Nicotine Polacrilex 2 Mg Gum) 4 mg BUCCAL Q1H PRN PRN Reason: Nicotine Cravings Last Admin: 01/21/22 14:24 Dose: 4 mg Olanzapine (Olanzapine Odt 10 Mg Tab.Rapdis) 40 mg TRANSLINGU BEDTIME DAVY Last Admin: 01/20/22 22:49 Dose: 40 mg Perphenazine (Perphenazine 8 Mg Tablet) 16 mg PO TID DAVY Last Admin: 01/21/22 14:39 Dose: 16 mg Prazosin HCl (Prazosin Hcl 1 Mg Capsule) 2 mg PO BEDTIME DAVY; Protocol Last Admin: 01/20/22 22:49 Dose: 2 mg Psyllium Hydrophilic Mucilloid (Psyllium Seed 3.4 Gm Powd.Pack) 3.4 gm PO BID DAVY Last Admin: 01/21/22 09:01 Dose: 3.4 gm Quetiapine Fumarate (Quetiapine Fumarate 200 Mg Tablet) 200 mg PO Q2H PRN PRN Reason: insomnia/agitation Last Admin: 01/13/22 21:16 Dose: 200 mg Simethicone (Simethicone 80 Mg Tab.Chew) 80 mg PO QIDWMHS PRN PRN Reason: flatulence Last Admin: 01/20/22 16:37 Dose: 80 mg Tamsulosin HCl (Tamsulosin Hcl 0.4 Mg Capsule) 0.4 mg PO BEDTIME DAVY Last Admin: 01/20/22 22:47 Dose: 0.4 mg Trazodone HCl (Trazodone Hcl 50 Mg Tablet) 150 mg PO BEDTIME DAVY Last Admin: 01/20/22 22:48 Dose: 150 mg Trazodone HCl (Trazodone Hcl 50 Mg Tablet) 50 mg PO BEDTIME PRN PRN Reason: Insomnia Last Admin: 01/18/22 23:31 Dose: 50 mg Vitamin E (Vitamin E (Dl,Tocopheryl Acet) 180 Mg (400 Unit) Capsule) 180 mg PO BID DAVY Last Admin: 01/21/22 08:38 Dose: 180 mg Allergies Allergies Allergy/AdvReac Type Severity Reaction Status Date / Time divalproex sodium Allergy Severe PANCREATITI Verified 11/24/21 14:34 [From DEPAKOTE] S haloperidol [From Haldol] Allergy Intermediate DYSTONIC Verified 11/24/21 14:34 REACTION Assessment & Plan Assessment & Plan (1) Schizoaffective disorder: Status: Acute Code(s): F25.9 - Schizoaffective disorder, unspecified (2) Cellulitis: Status: Acute Code(s): L03.90 - Cellulitis, unspecified Assessment and Plan: 51yo M with COPD, HLD, obesity, BPH, ex-smoker, bipolar-type schizoaffective disorder admitted to [facility]. Developed infection of R foot yesterday as well as symptomatic Covid-19 infection without hypoxia. # nonpurulent cellulitis - doxycycline x7d. no need for blood culture. monitor clinically for improvement. (3) COVID-19: Status: Acute Code(s): U07.1 - COVID-19 Assessment and Plan: 51yo M with COPD, HLD, obesity, BPH, ex-smoker, bipolar-type schizoaffective disorder admitted to [facility]. Developed infection of R foot yesterday as well as symptomatic Covid-19 infection without hypoxia. # Covid-19 infection - not hypoxic; no steroids indicated. Paxlovid contraindicated by use of carbamezapine. can give 3 days of IV remdesivir as alternative. Monitor SaO2 qshift. beginning 12/20/21, isolation x5d then mask-wearing x5d Plan 12/03: continue home meds for now. CV rejected as pt unable to appreciate the circumstances of his admission. will need commitment and benedicto's order. T/C restarting clozaril and lithium, on which pt did well for many years, re portedly. tegretol increased from 400 BID to 600 BID at admission. 12/04: klonopin 0.5/0.5/1 reinstated 12/04 (outpt provider had started it 11/25 at 1 mg TID). magic mouthwash started for oral ulcers. 12/05: slept well last night, still pressured and disorganized.? continue current mgmt. 12/08: 12b up, applied for commitment and meds.? making sexually inappropriate comments/suggestions to staff, threatening violence and toward male peer. 12/09: same presentation as yesterday.? started lithium 450 mg BID today. 12/10: no change in presentation, compliant with lithium. 12/11: DC prazosin to see if B/L pedal edema decreases.? DC pravachol as pt is refusing it.? order lac-hydrin for plantar fissure.? otherwise continue previous mgmt.? perhaps slight decrease in pressure and disorganization. 12/12: pedal edema no worse, perhaps better.? no GI side effects from lithium.? fissure looks improved with cream.? check lithium, tegretol, associated labs on wednesday (ordered).? titrate lithium as indicated. 12/13 pt manic, disorganized, intrusive, blaming, threatening (told telegraphic typewriter operator someone would come over and break his neck) -consider switching to Zyprexa from seroquel 12/14 her is manic, intrusive irritable, grandiose Harmony level subtherapeutic; however patient is very anxious about this medication causing side effects and at this time telegraphic typewriter operator thinks it might be better to leave it is current dose since patient continues to take it and trying to increase it may very well cause him to refuse it altogether; he is also on Tegretol.? Perhaps switching antipsychotics to Zyprexa is warranted.? Patient says he has never taken Zyprexa before.? Patient typically knows his medication history however usually when someone gets on clozapine it is because most other medications have not worked.? Harmony has just reached at steady state so will hold off making medication adjustments right now to see if there can be any further benefit observed from currently lithium dose and medication regimen. 12/15 no change; clonazepam at started off and was not restarted.? Patient did take p.o. laxatives and had a bowel movement says he feels better. 12/16:? increase tegretol from 600 BID to 600/800 tonight, as level around 7.? lithium sub-therapeutic but pt resistant to increase, will see how much better he can get on higher tegretol dosing.? T/C switching anti-psychotic to zyprexa, as pt has done well on clozaril in the past.? TEDs obtained for pedal edema. 12/17: no change in mgmt.? presentation not substantially changed.? some agitation today. 12/18: presentation essentially unchanged.? no agitation today, sleeping late morning. 12/19: Assessed for pedal edema, spoke with hospitalist, BNP, BMP wnl, venous doppler wnl. Per hospitalist, continue with TEDs, may consider low dose lasix. 12/20: stable presentation.? continue current mgmt.? check tegretol level about a week after dose increase.? trending more calm than earlier in his stay but remains very psychotic.? T/C trial of olanzapine. 12/21:? taper and DC lithium and it appears to be having unsustainable physical side effects (B/L LE edema, now possibly with cellulitis).? also tested COVID POS today, satting mid 902 on RA.? hospitalist consult placed for eval of COVID severity and R/O cellulitis.? T/C olanzapine trial once lithium has been DCed. 12/22: stable, appears medically better than yesterday. continue lithium taper, to 150 BID tonight and tomorrow morning. start ibuprofen for better pain control with COVID. continue antibiotic and antiviral. 12/24 continue current tx. O2 sat >93, no s/s of respiratory distress. afebrile. 12/25: course of remdesivir complete, doxy ongoing. rash has not spread, likely related to edema and dependent limbs. less purpuric and more pinpoint red with bruising. edema improved. c/o productive cough, expectorant Rx'ed. otherwise continue current mgmt. per CDC guidelines, persons with moderate COVID (which includes having oxygen saturation less than 94%) should isolate for 10 days. 12/26: stable, in quarantine day #6 of 10. continue current mgmt. check labs on wednesday morning. 12/27: Continue current regimen and plans. Continue quarantine. 12/28: Continue current plans and regimen 12/29: increasingly disorganized and hyperverbal since DC of lithium. B/L pedal edema dose seem to be improving. day #9 of quarantine. tegretol level 8, other labs unremarkable aside from anemia. 12/30: obsessively scrubbing floor overnight, up all NOC. sleeping during day. more disorganized, hyperverbal. DC seroquel and start olanzapine 30 mg QHS. seroquel 200 mg PRNs for insomnia. 12/31: c/o persisting edema. perhaps lithium is not the largest offender; the only other change has been increasing tegretol dosing (edema identified as a side effect only in post-marketing, frequency not provided by [facility]). lasix 20 mg one time tomorrow morning. otherwise continue current mgmt. slept well last night with zyprexa at HS. 01/01: slept 3 hours overnight. give lasix 40 mg daily x 3 days as 20 mg dose this morning was not effective. pedal edema remains below the ankle. continue current mgmt otherwise. 01/02: continues to have only several hours of sleep at night. reports good diuresis on lasix 40. continue to monitor pedal edema and efficacy of olanzapine + tegretol (and perphenazine) regimen. 01/03 continue current plan. 01/04 continue tx. 01/05: no change to Tx plan. 01/06: increase zyprexa to 40 mg at HS, restart lasix 20 mg daily for pedal edema. trending more organized and less pressured, but by no means well. 01/07: continues to appear less pressured and more organized. paranoia persists. 01/08: more disorganized and pressured today. met with new RENEE. [facility] mtg next wednesday. lasix increased to 40 mg to combat edema. 01/09: sleeping day shift. reportedly slept 5 hours last night. no change in presentation otherwise. continue current mgmt. 01/10/Continue treatment plan including HOLD on scheduled seroquel 01/11 Contnue current treatment plan 01/12: continue current mgmt. more calm and organized today than last week. mtg with sister tuesday 01/16. 01/13: continue current mgmt. continues more organized and calm. pursuing GINNA. 01/14: no change in mgmt. continues more linear, logical, topical. awaiting OT testing results. mtg with sister wednesday. 01/15: stable, no complaints or requests. scored 4.6 on OT testing, meaning he may live on his own with support at the level of check-ins weekly. mtg with sister tomorrow. 01/16: mtg with sister, OT, MD RENEE. pt reactive, labile, disorganized, bizarre in the face of any discussion of his ability or lack thereof to live independently. at sister's urging, pt agreed to restart clozaril at 25 mg daily. 01/17: took clozapine 25 last night. increase dose again tomorrow. clearly agitated at the idea of being back on clozapine, quite hyper-aroused during interview with MD today. 01/18: increase clozapine to 50 mg QHS as of tonight. pt reports subjective improvement since restarting clozapine, no such improvement observed by clinical staff. 01/19: continue current mgmt. increase clozapine to 75 mg tomorrow. less labile and paranoid today. 01/20: presentation as per yesterday. denies side effects from medication. increase clozapine to 75 mg as of this evening. 01/21 increase clozaril to 100mg po qhs. continue other medications. I spent minutes with the patient and/or on the patient floor today, greater than?50% of which was spent counseling/coordinating care. Reason for contiued inpatient stay Substantial Risk for: inability to function
[2022-01-21] MEDS: clonazePAM 1 MG TABLET PO ×2 (17:03→22:53)
[2022-01-21] MEDS: hydrOXYzine HCL 50 MG TABLET PO (21:05)
[2022-01-21 21:50] VITALS: BP 132/84; PULSE 74; RESP 18; O2SAT 100
[2022-01-21] MEDS: Tamsulosin HCL 0.4 MG CAPSULE PO (22:04)
[2022-01-21] MEDS: OLANZapine ODT 10 MG TAB.RAPDIS 40 MG TRANSLINGU (22:04)
[2022-01-21] MEDS: cloZAPine 100 MG TABLET PO (22:05)
[2022-01-21] MEDS: Prazosin HCL 1 MG CAPSULE 2 MG PO (22:05)
[2022-01-21] MEDS: Artificial Tears 15 ML DROPS 2 DROP EYE-BOTH (22:15)
[2022-01-21] MEDS: traZODone HCL 50 MG TABLET 150 MG PO (22:53)
[2022-01-21] MEDS: Ammonium Lactate 12 % Lotion 226 GM BOTTLE 1 APPL TOPICAL (23:02)
[2022-01-21] MEDS: Magnesium Hydrox/Alum Hydrox 30 ML ORAL.SUSP PO (23:03)
[2022-01-22] MEDS: carBAMazepine ER 200 MG TAB.ER.12H 800 MG PO ×2 (10:05→23:23)
[2022-01-22] MEDS: Perphenazine 8 MG TABLET 16 MG PO ×3 (10:06→23:23)
[2022-01-22] MEDS: clonazePAM 1 MG TABLET PO ×3 (10:06→23:21)
[2022-01-22] MEDS: hydrOXYzine HCL 50 MG TABLET PO ×2 (10:06→16:22)
[2022-01-22] MEDS: Vitamin E (Dl,Tocopheryl Acet) 180 MG (400 UNIT) CAPSULE PO ×2 (10:06→23:22)
[2022-01-22] MEDS: Furosemide 40 MG TABLET PO (10:07)
[2022-01-22] MEDS: Ascorbic Acid 250 MG TABLET PO (10:07)
[2022-01-22] MEDS: Artificial Tears 15 ML DROPS 2 DROP EYE-BOTH (10:08)
[2022-01-22] MEDS: Famotidine 20 MG TABLET PO ×2 (10:08→23:22)
[2022-01-22] MEDS: Nicotine Polacrilex 2 MG GUM 4 MG BUCCAL ×7 (10:08→21:42)
[2022-01-22] MEDS: Fluticasone/Vilanterol 100/25 BLST.W.DEV 1 PUFF INHALE (10:08)
--- NOTE | 2022-01-22 10:42 | HO.PSYCHPN ---
Subjective Subjective Date of Service: 01/22/22 Reason For Visit: psychosis Subjective Notes: Conditional Voluntary Interim History: Pt reports itchiness on right arm. Pt reports sleep is better. He has been visible on the unit and appropriate with peers and staff. He denies SI/HI. Speech is disorganized at times and difficult to understand- mostly derailment. He is taking medications as prescribed, will add benadryl for itchiness, no signs of rash, but will continue monitor. Medication Compliance: Yes Review of Systems Review of Systems Lower extremity edema Yes all other systems are reviewed and are negative and Unobtainable due to mental status Mental Status Exam Mental Status Exam Narrative: dressed in street clothes.? behavior is cooperative; adequate hygiene;? affect normo-intense, non-labile;? Speech incr rate, nml amount, nml loudness.? nml prosody, decr latency; thought process tangential and loose. no delusions explicitly expressed.? no SI/HI/AVH expressed.? Patients insight and judgment are impaired. Diagnostics Vital Signs (24Hr): Vital Signs - 24 hr 01/23/22 08:32 01/23/22 21:01 Temperature 96.9 F 97.6 F Pulse Rate 81 82 Blood Pressure 132/76 135/74 Pulse Oximetry 98 99 Oxygen Delivery Method Room Air Room Air BMI result Body Mass Index 30.7 Labs Results: 01/16/22 12:21 12/29/21 08:55 Labs: Laboratory Results - last 48 hr 01/23/22 08:11 Absolute Neuts (auto) 3.5 Imaging Radiology Impressions: ITS Impressions Venous Duplex 12/19/21 20:16 IMPRESSION: No DVT demonstrated in the bilateral lower extremity. Medications Medications Current Medications Acetaminophen (Acetaminophen 325 Mg Tablet) 650 mg PO Q6H PRN PRN Reason: Headache/Pain Mild Scale (1-3) Last Admin: 12/30/21 18:04 Dose: 650 mg Al Hydroxide/Mg Hydroxide (Magnesium Hydrox/Alum Hydrox 30 Ml Oral.Susp) 30 ml PO Q6H PRN PRN Reason: Heartburn/Nausea Last Admin: 01/21/22 23:03 Dose: 30 ml Albuterol Sulfate (Albuterol Sulfate 90 Mcg 8 Gm Inhaler) 2 puff INHALE Q4H PRN PRN Reason: shortness of breath or wheezing Last Admin: 01/19/22 22:39 Dose: 2 puff Artificial Tears (Artificial Tears 15 Ml Drops) 2 drop EYE-BOTH Q4H PRN PRN Reason: Dry Eyes Last Admin: 01/22/22 10:08 Dose: 2 drop Ascorbic Acid (Ascorbic Acid 250 Mg Tablet) 250 mg PO DAILY [facility] Last Admin: 01/23/22 08:35 Dose: 250 mg Benzocaine (Throat Lozenge, Medicated Lozenge) 1 lozenge MUCOUS MEM Q1H PRN PRN Reason: Sore Throat Last Admin: 12/27/21 06:54 Dose: 1 lozenge Bisacodyl (Bisacodyl 10 Mg Supp.Rect) 10 mg ND BEDTIME PRN PRN Reason: Constipation Last Admin: 12/06/21 21:14 Dose: 10 mg Carbamazepine (Carbamazepine Er 200 Mg Tab.Er.12h) 800 mg PO BEDTIME [facility] Last Admin: 01/23/22 20:54 Dose: 800 mg Carbamazepine (Carbamazepine Er 200 Mg Tab.Er.12h) 800 mg PO DAILY [facility] Last Admin: 01/23/22 08:34 Dose: 800 mg Clonazepam (Clonazepam 1 Mg Tablet) 1 mg PO TID DAVY Last Admin: 01/23/22 20:55 Dose: 1 mg Clozapine (Clozapine 100 Mg Tablet) 100 mg PO BEDTIME [facility]Y Last Admin: 01/23/22 20:55 Dose: 100 mg Diphenhydramine HCl (Diphenhydramine Hcl 25 Mg Capsule) 50 mg PO Q6H PRN PRN Reason: Itching Last Admin: 01/24/22 05:52 Dose: 50 mg Famotidine (Famotidine 20 Mg Tablet) 20 mg PO BID DAVY Last Admin: 01/23/22 20:55 Dose: 20 mg Fluticasone/Vilanterol (Fluticasone/Vilanterol 100/25 Blst.W.Dev) 1 puff INHALE DAILY [facility]Y Last Admin: 01/23/22 08:37 Dose: 1 puff Furosemide (Furosemide 40 Mg Tablet) 40 mg PO DAILY [facility]; Protocol Last Admin: 01/23/22 08:35 Dose: 40 mg Guaifenesin (Guaifenesin La 600 Mg Tab.Er.12h) 600 mg PO BID PRN PRN Reason: thick secretions Last Admin: 01/03/22 23:25 Dose: 600 mg Hydroxyzine HCl (Hydroxyzine Hcl 50 Mg Tablet) 50 mg PO Q6H PRN PRN Reason: Anxiety Last Admin: 01/22/22 16:22 Dose: 50 mg Ibuprofen (Ibuprofen 600 Mg Tablet) 600 mg PO Q6H PRN PRN Reason: aches and pains Last Admin: 01/22/22 23:43 Dose: 600 mg Lactic Acid (Ammonium Lactate 12 % Lotion 226 Gm Bottle) 1 appl TOPICAL BID DAVY; Protocol Last Admin: 01/23/22 21:33 Dose: Not Given Lidocaine/Diphenhydr/Alum/Mg/Simeth (Mag&Al/Sim/Diphenhyd/Lidocaine 10 Ml Oral.Susp) 10 ml PO Q4H PRN; Protocol PRN Reason: oral mucous membrane ulcer jeremiah Last Admin: 12/20/21 02:20 Dose: 10 ml Magnesium Hydroxide (Milk Of Magnesia 30 Ml Oral.Susp) 30 ml PO DAILY PRN PRN Reason: Constipation Last Admin: 01/17/22 17:31 Dose: 30 ml Nicotine Polacrilex (Nicotine Polacrilex 2 Mg Gum) 4 mg BUCCAL Q1H PRN PRN Reason: Nicotine Cravings Last Admin: 01/24/22 06:55 Dose: 4 mg Olanzapine (Olanzapine Odt 10 Mg Tab.Rapdis) 40 mg TRANSLINGU BEDTIME DAVY Last Admin: 01/23/22 20:54 Dose: 40 mg Perphenazine (Perphenazine 8 Mg Tablet) 16 mg PO TID DAVY Last Admin: 01/23/22 20:55 Dose: 16 mg Prazosin HCl (Prazosin Hcl 1 Mg Capsule) 2 mg PO BEDTIME DAVY; Protocol Last Admin: 01/23/22 20:54 Dose: 2 mg Quetiapine Fumarate (Quetiapine Fumarate 200 Mg Tablet) 200 mg PO Q2H PRN PRN Reason: insomnia/agitation Last Admin: 01/13/22 21:16 Dose: 200 mg Senna/Docusate Sodium (Sennosides/Docusate Sodium Tablet) 1 tab PO BID DAVY Simethicone (Simethicone 80 Mg Tab.Chew) 80 mg PO QIDWMHS PRN PRN Reason: flatulence Last Admin: 01/20/22 16:37 Dose: 80 mg Tamsulosin HCl (Tamsulosin Hcl 0.4 Mg Capsule) 0.4 mg PO BEDTIME DAVY Last Admin: 01/23/22 20:54 Dose: 0.4 mg Trazodone HCl (Trazodone Hcl 50 Mg Tablet) 150 mg PO BEDTIME DAVY Last Admin: 01/23/22 20:54 Dose: 150 mg Trazodone HCl (Trazodone Hcl 50 Mg Tablet) 50 mg PO BEDTIME PRN PRN Reason: Insomnia Last Admin: 01/18/22 23:31 Dose: 50 mg Vitamin E (Vitamin E (Dl,Tocopheryl Acet) 180 Mg (400 Unit) Capsule) 180 mg PO BID DAVY Last Admin: 01/23/22 20:55 Dose: 180 mg Allergies Allergies Allergy/AdvReac Type Severity Reaction Status Date / Time divalproex sodium Allergy Severe PANCREATITI Verified 11/24/21 14:34 [From DEPAKOTE] S haloperidol [From Haldol] Allergy Intermediate DYSTONIC Verified 11/24/21 14:34 REACTION Assessment & Plan Assessment & Plan (1) Schizoaffective disorder: Status: Acute Code(s): F25.9 - Schizoaffective disorder, unspecified (2) Cellulitis: Status: Acute Code(s): L03.90 - Cellulitis, unspecified Assessment and Plan: 51yo M with COPD, HLD, obesity, BPH, ex-smoker, bipolar-type schizoaffective disorder admitted to [facility]. Developed infection of R foot yesterday as well as symptomatic Covid-19 infection without hypoxia. # nonpurulent cellulitis - doxycycline x7d. no need for blood culture. monitor clinically for improvement. (3) COVID-19: Status: Acute Code(s): U07.1 - COVID-19 Assessment and Plan: 51yo M with COPD, HLD, obesity, BPH, ex-smoker, bipolar-type schizoaffective disorder admitted to [facility]. Developed infection of R foot yesterday as well as symptomatic Covid-19 infection without hypoxia. # Covid-19 infection - not hypoxic; no steroids indicated. Paxlovid contraindicated by use of carbamezapine. can give 3 days of IV remdesivir as alternative. Monitor SaO2 qshift. beginning 12/20/21, isolation x5d then mask-wearing x5d Plan 12/03: continue home meds for now. CV rejected as pt unable to appreciate the circumstances of his admission. will need commitment and benedicto's order. T/C restarting clozaril and lithium, on which pt did well for many years, reportedly. tegretol increased from 400 BID to 600 BID at admission. 12/04: klonopin 0.5/0.5/1 reinstated 12/04 (outpt provider had started it 11/25 at 1 mg TID). magic mouthwash started for oral ulcers. 12/05: slept well last night, still pressured and disorganized.? continue current mgmt. 12/08: 12b up, applied for commitment and meds.? making sexually inappropriate comments/suggestions to staff, threatening violence and toward male peer. 12/09: same presentation as yesterday.? started lithium 450 mg BID today. 12/10: no change in presentation, compliant with lithium. 12/11: DC prazosin to see if B/L pedal edema decreases.? DC pravachol as pt is refusing it.? order lac-hydrin for plantar fissure.? otherwise continue previous mgmt.? perhaps slight decrease in pressure and disorganization. 12/12: pedal edema no worse, perhaps better.? no GI side effects from lithium.? fissure looks improved with cream.? check lithium, tegretol, associated labs on wednesday (ordered).? titrate lithium as indicated. 12/13 pt manic, disorganized, intrusive, blaming, threatening (told mortgage underwriter someone would come over and break his neck) -consider switching to Zyprexa from seroquel 12/14 her is manic, intrusive irritable, grandiose [place] level subtherapeutic; however patient is very anxious about this medication causing side effects and at this time mortgage underwriter thinks it might be better to leave it is current dose since patient continues to take it and trying to increase it may very well cause him to refuse it altogether; he is also on Tegretol.? Perhaps switching antipsychotics to Zyprexa is warranted.? Patient says he has never taken Zyprexa before.? Patient typically knows his medication history however usually when someone gets on clozapine it is because most other medications have not worked.? [place] has just reached at steady state so will hold off making medication adjustments right now to see if there can be any further benefit observed from currently lithium dose and medication regimen. 12/15 no change; clonazepam at started off and was not restarted.? Patient did take p.o. laxatives and had a bowel movement says he feels better. 12/16:? increase tegretol from 600 BID to 600/800 tonight, as level around 7.? lithium sub-therapeutic but pt resistant to increase, will see how much better he can get on higher tegretol dosing.? T/C switching anti-psychotic to zyprexa, as pt has done well on clozaril in the past.? TEDs obtained for pedal edema. 12/17: no change in mgmt.? presentation not substantially changed.? some agitation today. 12/18: presentation essentially unchanged.? no agitation today, sleeping late morning. 12/19: Assessed for pedal edema, spoke with hospitalist, BNP, BMP wnl, venous doppler wnl. Per hospitalist, continue with TEDs, may consider low dose lasix. 12/20: stable presentation.? continue current mgmt.? check tegretol level about a week after dose increase.? trending more calm than earlier in his stay but remains very psychotic.? T/C trial of olanzapine. 12/21:? taper and DC lithium and it appears to be having unsustainable physical side effects (B/L LE edema, now possibly with cellulitis).? also tested COVID POS today, satting mid 902 on RA.? hospitalist consult placed for eval of COVID severity and R/O cellulitis.? T/C olanzapine trial once lithium has been DCed. 12/22: stable, appears medically better than yesterday. continue lithium taper, to 150 BID tonight and tomorrow morning. start ibuprofen for better pain control with COVID. continue antibiotic and antiviral. 12/24 continue current tx. O2 sat >93, no s/s of respiratory distress. afebrile. 12/25: course of remdesivir complete, doxy ongoing. rash has not spread, likely related to edema and dependent limbs. less purpuric and more pinpoint red with bruising. edema improved. c/o productive cough, expectorant Rx'ed. otherwise continue current mgmt. per CDC guidelines, persons with moderate COVID (which includes having oxygen saturation less than 94%) should isolate for 10 days. 12/26: stable, in quarantine day #6 of 10. continue current mgmt. check labs on wednesday morning. 12/27: Continue current regimen and plans. Continue quarantine. 12/28: Continue current plans and regimen 12/29: increasingly disorganized and hyperverbal since DC of lithium. B/L pedal edema dose seem to be improving. day #9 of quarantine. tegretol level 8, other labs unremarkable aside from anemia. 12/30: obsessively scrubbing floor overnight, up all NOC. sleeping during day. more disorganized, hyperverbal. DC seroquel and start olanzapine 30 mg QHS. seroquel 200 mg PRNs for insomnia. 12/31: c/o persisting edema. perhaps lithium is not the largest offender; the only other change has been increasing tegretol dosing (edema identified as a side effect only in post-marketing, frequency not provided by update). lasix 20 mg one time tomorrow morning. otherwise continue current mgmt. slept well last night with zyprexa at HS. 01/01: slept 3 hours overnight. give lasix 40 mg daily x 3 days as 20 mg dose this morning was not effective. pedal edema remains below the ankle. continue current mgmt otherwise. 01/02: continues to have only several hours of sleep at night. reports good diuresis on lasix 40. continue to monitor pedal edema and efficacy of olanzapine + tegretol (and perphenazine) regimen. 01/03 continue current plan. 01/04 continue tx. 01/05: no change to Tx plan. 01/06: increase zyprexa to 40 mg at HS, restart lasix 20 mg daily for pedal edema. trending more organized and less pressured, but by no means well. 01/07: continues to appear less pressured and more organized. paranoia persists. 01/08: more disorganized and pressured today. met with new RENEE. [facility] mtg next wednesday. lasix increased to 40 mg to combat edema. 01/09: sleeping day shift. reportedly slept 5 hours last night. no change in presentation otherwise. continue current mgmt. 01/10/Continue treatment plan including HOLD on scheduled seroquel 01/11 Contnue current treatment plan 01/12: continue current mgmt. more calm and organized today than last week. mtg with sister tuesday 01/16. 01/13: continue current mgmt. continues more organized and calm. pursuing GINNA. 01/14: no change in mgmt. continues more linear, logical, topical. awaiting OT testing results. mtg with sister wednesday. 01/15: stable, no complaints or requests. scored 4.6 on OT testing, meaning he may live on his own with support at the level of check-ins weekly. mtg with sister tomorrow. 01/16: mtg with sister, OT, MD RENEE. pt reactive, labile, disorganized, bizarre in the face of any discussion of his ability or lack thereof to live independently. at sister's urging, pt agreed to restart clozaril at 25 mg daily. 01/17: took clozapine 25 last night. increase dose again tomorrow. clearly agitated at the idea of being back on clozapine, quite hyper-aroused during interview with MD today. 01/18: increase clozapine to 50 mg QHS as of tonight. pt reports subjective improvement since restarting clozapine, no such improvement observed by clinical staff. 01/19: continue current mgmt. increase clozapine to 75 mg tomorrow. less labile and paranoid today. 01/20: presentation as per yesterday. denies side effects from medication. increase clozapine to 75 mg as of this evening. 01/21 increase clozaril to 100mg po qhs. continue other medications. 01/22 continue current medications. add benadryl for itchiness. I spent minutes with the patient and/or on the patient floor today, greater than?50% of which was spent counseling/coordinating care. Reason for contiued inpatient stay Substantial Risk for: inability to function
[2022-01-22] MEDS: Ammonium Lactate 12 % Lotion 226 GM BOTTLE 1 APPL TOPICAL ×2 (10:52→23:41)
[2022-01-22] MEDS: diphenhydrAMINE HCL 25 MG CAPSULE 50 MG PO ×2 (17:26→23:42)
[2022-01-22 23:18] VITALS: BP 124/68; PULSE 70; RESP 18; TEMP 36.7; O2SAT 97
[2022-01-22] MEDS: OLANZapine ODT 10 MG TAB.RAPDIS 40 MG TRANSLINGU (23:21)
[2022-01-22] MEDS: Prazosin HCL 1 MG CAPSULE 2 MG PO (23:21)
[2022-01-22] MEDS: traZODone HCL 50 MG TABLET 150 MG PO (23:22)
[2022-01-22] MEDS: cloZAPine 100 MG TABLET PO (23:22)
[2022-01-22] MEDS: Tamsulosin HCL 0.4 MG CAPSULE PO (23:22)
[2022-01-22] MEDS: Ibuprofen 600 MG TABLET PO (23:43)
[2022-01-23] MEDS: Nicotine Polacrilex 2 MG GUM 4 MG BUCCAL ×9 (06:34→21:07)
[2022-01-23] MEDS: diphenhydrAMINE HCL 25 MG CAPSULE 50 MG PO ×2 (07:41→16:28)
[2022-01-23 08:27] LABS: Neut%MD 61.5 %; Neutrophils Absolute Auto 3.5 x10*3/uL (2.0-8.3); WBCANC 5.7 X10*3/uL
[2022-01-23 08:32] VITALS: BP 132/76; PULSE 81; TEMP 36.1; O2SAT 98
[2022-01-23] MEDS: Perphenazine 8 MG TABLET 16 MG PO ×3 (08:33→20:55)
[2022-01-23] MEDS: Vitamin E (Dl,Tocopheryl Acet) 180 MG (400 UNIT) CAPSULE PO ×2 (08:34→20:55)
[2022-01-23] MEDS: carBAMazepine ER 200 MG TAB.ER.12H 800 MG PO ×2 (08:34→20:54)
[2022-01-23] MEDS: Ascorbic Acid 250 MG TABLET PO (08:35)
[2022-01-23] MEDS: Furosemide 40 MG TABLET PO (08:35)
[2022-01-23] MEDS: Famotidine 20 MG TABLET PO ×2 (08:35→20:55)
[2022-01-23] MEDS: clonazePAM 1 MG TABLET PO ×3 (08:35→20:55)
[2022-01-23] MEDS: Fluticasone/Vilanterol 100/25 BLST.W.DEV 1 PUFF INHALE (08:37)
--- NOTE | 2022-01-23 13:45 | HO.PSYCHPN ---
Subjective Subjective Date of Service: 01/23/22 Reason For Visit: psychosis Subjective Notes: Section 8 Interim History: Pt reports increased itchiness, although reports benadryl helped somewhat and is less at least on arms. Otherwise, pt denies SI/HI. His speech still with derailment at times but much more able to have breif periods of meaningful conversation related to his medications and potential side effects. Per nursing, no behavioral concerns. Medication Compliance: Yes Side effects from medications: No Review of Systems Review of Systems Lower extremity edema Yes all other systems are reviewed and are negative and Unobtainable due to mental status Mental Status Exam Mental Status Exam Narrative: dressed in street clothes.? behavior is cooperative; adequate hygiene;? affect normo-intense, non-labile;? Speech incr rate, nml amount, nml loudness.? nml prosody, decr latency; thought process tangential and loose. no delusions explicitly expressed.? no SI/HI/AVH expressed.? Patients insight and judgment are impaired. Diagnostics Vital Signs (24Hr): Vital Signs - 24 hr 01/23/22 08:32 01/23/22 21:01 Temperature 96.9 F 97.6 F Pulse Rate 81 82 Blood Pressure 132/76 135/74 Pulse Oximetry 98 99 Oxygen Delivery Method Room Air Room Air BMI result Body Mass Index 30.7 Labs Results: 01/16/22 12:21 12/29/21 08:55 Labs: Laboratory Results - last 48 hr 01/23/22 08:11 Absolute Neuts (auto) 3.5 Imaging Radiology Impressions: ITS Impressions Venous Duplex 12/19/21 20:16 IMPRESSION: No DVT demonstrated in the bilateral lower extremity. Medications Medications Current Medications Acetaminophen (Acetaminophen 325 Mg Tablet) 650 mg PO Q6H PRN PRN Reason: Headache/Pain Mild Scale (1-3) Last Admin: 12/30/21 18:04 Dose: 650 mg Al Hydroxide/Mg Hydroxide (Magnesium Hydrox/Alum Hydrox 30 Ml Oral.Susp) 30 ml PO Q6H PRN PRN Reason: Heartburn/Nausea Last Admin: 01/21/22 23:03 Dose: 30 ml Albuterol Sulfate (Albuterol Sulfate 90 Mcg 8 Gm Inhaler) 2 puff INHALE Q4H PRN PRN Reason: shortness of breath or wheezing Last Admin: 01/19/22 22:39 Dose: 2 puff Artificial Tears (Artificial Tears 15 Ml Drops) 2 drop EYE-BOTH Q4H PRN PRN Reason: Dry Eyes Last Admin: 01/22/22 10:08 Dose: 2 drop Ascorbic Acid (Ascorbic Acid 250 Mg Tablet) 250 mg PO DAILY [facility] Last Admin: 01/23/22 08:35 Dose: 250 mg Benzocaine (Throat Lozenge, Medicated Lozenge) 1 lozenge MUCOUS MEM Q1H PRN PRN Reason: Sore Throat Last Admin: 12/27/21 06:54 Dose: 1 lozenge Bisacodyl (Bisacodyl 10 Mg Supp.Rect) 10 mg MI BEDTIME PRN PRN Reason: Constipation Last Admin: 12/06/21 21:14 Dose: 10 mg Carbamazepine (Carbamazepine Er 200 Mg Tab.Er.12h) 800 mg PO BEDTIME DAVY Last Admin: 01/23/22 20:54 Dose: 800 mg Carbamazepine (Carbamazepine Er 200 Mg Tab.Er.12h) 800 mg PO DAILY [facility] Last Admin: 01/23/22 08:34 Dose: 800 mg Clonazepam (Clonazepam 1 Mg Tablet) 1 mg PO TID DAVY Last Admin: 01/23/22 20:55 Dose: 1 mg Clozapine (Clozapine 100 Mg Tablet) 100 mg PO BEDTIME DAVY Last Admin: 01/23/22 20:55 Dose: 100 mg Diphenhydramine HCl (Diphenhydramine Hcl 25 Mg Capsule) 50 mg PO Q6H PRN PRN Reason: Itching Last Admin: 01/24/22 05:52 Dose: 50 mg Famotidine (Famotidine 20 Mg Tablet) 20 mg PO BID DAVY Last Admin: 01/23/22 20:55 Dose: 20 mg Fluticasone/Vilanterol (Fluticasone/Vilanterol 100/25 Blst.W.Dev) 1 puff INHALE DAILY DAVY Last Admin: 01/23/22 08:37 Dose: 1 puff Furosemide (Furosemide 40 Mg Tablet) 40 mg PO DAILY DAVY; Protocol Last Admin: 01/23/22 08:35 Dose: 40 mg Guaifenesin (Guaifenesin La 600 Mg Tab.Er.12h) 600 mg PO BID PRN PRN Reason: thick secretions Last Admin: 01/03/22 23:25 Dose: 600 mg Hydrocortisone (Hydrocortisone 1 % Ointment 28.35 Gm Tube) 1 appl TOPICAL BID DAVY; Protocol Hydroxyzine HCl (Hydroxyzine Hcl 50 Mg Tablet) 50 mg PO Q6H PRN PRN Reason: Anxiety Last Admin: 01/22/22 16:22 Dose: 50 mg Ibuprofen (Ibuprofen 600 Mg Tablet) 600 mg PO Q6H PRN PRN Reason: aches and pains Last Admin: 01/22/22 23:43 Dose: 600 mg Lactic Acid (Ammonium Lactate 12 % Lotion 226 Gm Bottle) 1 appl TOPICAL BID DAVY; Protocol Last Admin: 01/23/22 21:33 Dose: Not Given Lidocaine/Diphenhydr/Alum/Mg/Simeth (Mag&Al/Sim/Diphenhyd/Lidocaine 10 Ml Oral.Susp) 10 ml PO Q4H PRN; Protocol PRN Reason: oral mucous membrane ulcer jeremiah Last Admin: 12/20/21 02:20 Dose: 10 ml Magnesium Hydroxide (Milk Of Magnesia 30 Ml Oral.Susp) 30 ml PO DAILY PRN PRN Reason: Constipation Last Admin: 01/17/22 17:31 Dose: 30 ml Nicotine Polacrilex (Nicotine Polacrilex 2 Mg Gum) 4 mg BUCCAL Q1H PRN PRN Reason: Nicotine Cravings Last Admin: 01/24/22 06:55 Dose: 4 mg Olanzapine (Olanzapine Odt 10 Mg Tab.Rapdis) 40 mg TRANSLINGU BEDTIME DAVY Last Admin: 01/23/22 20:54 Dose: 40 mg Perphenazine (Perphenazine 8 Mg Tablet) 16 mg PO TID DAVY Last Admin: 01/23/22 20:55 Dose: 16 mg Prazosin HCl (Prazosin Hcl 1 Mg Capsule) 2 mg PO BEDTIME DAVY; Protocol Last Admin: 01/23/22 20:54 Dose: 2 mg Quetiapine Fumarate (Quetiapine Fumarate 200 Mg Tablet) 200 mg PO Q2H PRN PRN Reason: insomnia/agitation Last Admin: 01/13/22 21:16 Dose: 200 mg Senna/Docusate Sodium (Sennosides/Docusate Sodium Tablet) 1 tab PO BID DAVY Simethicone (Simethicone 80 Mg Tab.Chew) 80 mg PO QIDWMHS PRN PRN Reason: flatulence Last Admin: 01/20/22 16:37 Dose: 80 mg Tamsulosin HCl (Tamsulosin Hcl 0.4 Mg Capsule) 0.4 mg PO BEDTIME [facility] Last Admin: 01/23/22 20:54 Dose: 0.4 mg Trazodone HCl (Trazodone Hcl 50 Mg Tablet) 150 mg PO BEDTIME DAVY Last Admin: 01/23/22 20:54 Dose: 150 mg Trazodone HCl (Trazodone Hcl 50 Mg Tablet) 50 mg PO BEDTIME PRN PRN Reason: Insomnia Last Admin: 01/18/22 23:31 Dose: 50 mg Vitamin E (Vitamin E (Dl,Tocopheryl Acet) 180 Mg (400 Unit) Capsule) 180 mg PO BID [facility] Last Admin: 01/23/22 20:55 Dose: 180 mg Allergies Allergies Allergy/AdvReac Type Severity Reaction Status Date / Time divalproex sodium Allergy Severe PANCREATITI Verified 11/24/21 14:34 [From DEPAKOTE] S haloperidol [From Haldol] Allergy Intermediate DYSTONIC Verified 11/24/21 14:34 REACTION Assessment & Plan Assessment & Plan (1) Schizoaffective disorder: Status: Acute Code(s): F25.9 - Schizoaffective disorder, unspecified (2) Cellulitis: Status: Acute Code(s): L03.90 - Cellulitis, unspecified Assessment and Plan: 51yo M with COPD, HLD, obesity, BPH, ex-smoker, bipolar-type schizoaffective disorder admitted to [facility]. Developed infection of R foot yesterday as well as symptomatic Covid-19 infection without hypoxia. # nonpurulent cellulitis - doxycycline x7d. no need for blood culture. monitor clinically for improvement. (3) COVID-19: Status: Acute Code(s): U07.1 - COVID-19 Assessment and Plan: 51yo M with COPD, HLD, obesity, BPH, ex-smoker, bipolar-type schizoaffective disorder admitted to [facility]. Developed infection of R foot yesterday as well as symptomatic Covid-19 infection without hypoxia. # Covid-19 infection - not hypoxic; no steroids indicated. Paxlovid contraindicated by use of carbamezapine. can give 3 days of IV remdesivir as alternative. Monitor SaO2 qshift. beginning 12/20/21, isolation x5d then mask-wearing x5d Plan 12/03: continue home meds for now. CV rejected as pt unable to appreciate the circumstances of his admission. will need commitment and benedicto's order. T/C restarting clozaril and lithium, on which pt did well for many years, reportedly. tegretol increased from 400 BID to 600 BID at admission. 12/04: klonopin 0.5/0.5/1 reinstated 12/04 (outpt provider had started it 11/25 at 1 mg TID). magic mouthwash started for oral ulcers. 12/05: slept well last night, still pressured and disorganized.? continue current mgmt. 12/08: 12b up, applied for commitment and meds.? making sexually inappropriate comments/suggestions to staff, threatening violence and toward male peer. 12/09: same presentation as yesterday.? started lithium 450 mg BID today. 12/10: no change in presentation, compliant with lithium. 12/11: DC prazosin to see if B/L pedal edema decreases.? DC pravachol as pt is refusing it.? order lac-hydrin for plantar fissure.? otherwise continue previous mgmt.? perhaps slight decrease in pressure and disorganization. 12/12: pedal edema no worse, perhaps better.? no GI side effects from lithium.? fissure looks improved with cream.? check lithium, tegretol, associated labs on wednesday (ordered).? titrate lithium as indicated. 12/13 pt manic, disorganized, intrusive, blaming, threatening (told grant writer someone would come over and break his neck) -consider switching to Zyprexa from seroquel 12/14 her is manic, intrusive irritable, grandiose [place] level subtherapeutic; however patient is very anxious about this medication causing side effects and at this time grant writer thinks it might be better to leave it is current dose since patient continues to take it and trying to increase it may very well cause him to refuse it altogether; he is also on Tegretol.? Perhaps switching antipsychotics to Zyprexa is warranted.? Patient says he has never taken Zyprexa before.? Patient typically knows his medication history however usually when someone gets on clozapine it is because most other medications have not worked.? [place] has just reached at steady state so will hold off making medication adjustments right now to see if there can be any further benefit observed from currently lithium dose and medication regimen. 12/15 no change; clonazepam at started off and was not restarted.? Patient did take p.o. laxatives and had a bowel movement says he feels better. 12/16:? increase tegretol from 600 BID to 600/800 tonight, as level around 7.? lithium sub-therapeutic but pt resistant to increase, will see how much better he can get on higher tegretol dosing.? T/C switching anti-psychotic to zyprexa, as pt has done well on clozaril in the past.? TEDs obtained for pedal edema. 12/17: no change in mgmt.? presentation not substantially changed.? some agitation today. 12/18: presentation essentially unchanged.? no agitation today, sleeping late morning. 12/19: Assessed for pedal edema, spoke with hospitalist, BNP, BMP wnl, venous doppler wnl. Per hospitalist, continue with TEDs, may consider low dose lasix. 12/20: stable presentation.? continue current mgmt.? check tegretol level about a week after dose increase.? trending more calm than earlier in his stay but remains very psychotic.? T/C trial of olanzapine. 12/21:? taper and DC lithium and it appears to be having unsustainable physical side effects (B/L LE edema, now possibly with cellulitis).? also tested COVID POS today, satting mid 902 on RA.? hospitalist consult placed for eval of COVID severity and R/O cellulitis.? T/C olanzapine trial once lithium has been DCed. 12/22: stable, appears medically better than yesterday. continue lithium taper, to 150 BID tonight and tomorrow morning. start ibuprofen for better pain control with COVID. continue antibiotic and antiviral. 12/24 continue current tx. O2 sat >93, no s/s of respiratory distress. afebrile. 12/25: course of remdesivir complete, doxy ongoing. rash has not spread, likely related to edema and dependent limbs. less purpuric and more pinpoint red with bruising. edema improved. c/o productive cough, expectorant Rx'ed. otherwise continue current mgmt. per CDC guidelines, persons with moderate COVID (which includes having oxygen saturation less than 94%) should isolate for 10 days. 12/26: stable, in quarantine day #6 of . continue current mgmt. check labs on wednesday morning. 12/27: Continue current regimen and plans. Continue quarantine. 12/28: Continue current plans and regimen 12/29: increasingly disorganized and hyperverbal since DC of lithium. B/L pedal edema dose seem to be improving. day #9 of quarantine. tegretol level 8, other labs unremarkable aside from anemia. 12/30: obsessively scrubbing floor overnight, up all NOC. sleeping during day. more disorganized, hyperverbal. DC seroquel and start olanzapine 30 mg QHS. seroquel 200 mg PRNs for insomnia. 12/31: c/o persisting edema. perhaps lithium is not the largest offender; the only other change has been increasing tegretol dosing (edema identified as a side effect only in post-marketing, frequency not provided by update). lasix 20 mg one time tomorrow morning. otherwise continue current mgmt. slept well last night with zyprexa at HS. 01/01: slept 3 hours overnight. give lasix 40 mg daily x 3 days as 20 mg dose this morning was not effective. pedal edema remains below the ankle. continue current mgmt otherwise. 01/02: continues to have only several hours of sleep at night. reports good diuresis on lasix 40. continue to monitor pedal edema and efficacy of olanzapine + tegretol (and perphenazine) regimen. 01/03 continue current plan. 01/04 continue tx. 01/05: no change to Tx plan. 01/06: increase zyprexa to 40 mg at HS, restart lasix 20 mg daily for pedal edema. trending more organized and less pressured, but by no means well. 01/07: continues to appear less pressured and more organized. paranoia persists. 01/08: more disorganized and pressured today. met with new [facility] mtg next wednesday. lasix increased to 40 mg to combat edema. 01/09: sleeping day shift. reportedly slept 5 hours last night. no change in presentation otherwise. continue current mgmt. 01/10/Continue treatment plan including HOLD on scheduled seroquel 01/11 Contnue current treatment plan 11/7: continue current mgmt. more calm and organized today than last week. mtg with sister tuesday 01/16. 01/13: continue current mgmt. continues more organized and calm. pursuing GINNA. 01/14: no change in mgmt. continues more linear, logical, topical. awaiting OT testing results. mtg with sister wednesday. 01/15: stable, no complaints or requests. scored 4.6 on OT testing, meaning he may live on his own with support at the level of check-ins weekly. mtg with sister tomorrow. 01/16: mtg with sister, OT, SW, . pt reactive, labile, disorganized, bizarre in the face of any discussion of his ability or lack thereof to live independently. at sister's urging, pt agreed to restart clozaril at 25 mg daily. 01/17: took clozapine 25 last night. increase dose again tomorrow. clearly agitated at the idea of being back on clozapine, quite hyper-aroused during interview with MD today. 01/18: increase clozapine to 50 mg QHS as of tonight. pt reports subjective improvement since restarting clozapine, no such improvement observed by clinical staff. 01/19: continue current mgmt. increase clozapine to 75 mg tomorrow. less labile and paranoid today. 01/20: presentation as per yesterday. denies side effects from medication. increase clozapine to 75 mg as of this evening. 01/21 increase clozaril to 100mg po qhs. continue other medications. 01/22 continue current medications. add benadryl for itchiness. 01/23 continue tx. add cortisone lotion, will check cbcy, if continues to worsen, will ask hospitalist consult. I spent minutes with the patient and/or on the patient floor today, greater than?50% of which was spent counseling/coordinating care. Reason for contiued inpatient stay Substantial Risk for: inability to function
[2022-01-23] MEDS: traZODone HCL 50 MG TABLET 150 MG PO (20:54)
[2022-01-23] MEDS: OLANZapine ODT 10 MG TAB.RAPDIS 40 MG TRANSLINGU (20:54)
[2022-01-23] MEDS: Prazosin HCL 1 MG CAPSULE 2 MG PO (20:54)
[2022-01-23] MEDS: Tamsulosin HCL 0.4 MG CAPSULE PO (20:54)
[2022-01-23] MEDS: cloZAPine 100 MG TABLET PO (20:55)
[2022-01-23 21:01] VITALS: BP 135/74; PULSE 82; TEMP 36.4; O2SAT 99
--- NOTE | 2022-01-24 00:50 | HO.PSYCHPN ---
Subjective Subjective Date of Service: 01/24/22 Reason For Visit: psychosis Interim History: Discussed with team. Has self inflicted skin excoriation, question of eczema, has bacitracin, hydrocortisone. Has been scratching himself on the leg and hands. Says his meds are alright. Sleep is good. Appetite is good. No GI issues. No questions or concerns. Medication Compliance: Yes Side effects from medications: No Attending Groups: Intermittent Review of Systems Acute medical concerns: No Medical Review of Systems: unchanged Mental Status Exam Mental Status Exam Narrative: dressed in street clothes.? behavior is cooperative; adequate hygiene;? affect normo-intense, non-labile;? Speech incr rate, nml amount, nml loudness.? nml prosody, decr latency; thought process tangential and loose. no delusions explicitly expressed.? no SI/HI/AVH expressed.? Patients insight and judgment are impaired. Diagnostics Vital Signs (24Hr): Vital Signs - 24 hr 01/23/22 08:32 01/23/22 21:01 Temperature 96.9 F 97.6 F Pulse Rate 81 82 Blood Pressure 132/76 135/74 Pulse Oximetry 98 99 Oxygen Delivery Method Room Air Room Air BMI result Body Mass Index 30.7 Labs Results: 01/24/22 08:44 12/29/21 08:55 Labs: Laboratory Results - last 48 hr 01/23/22 08:11 Absolute Neuts (auto) 3.5 Imaging Radiology Impressions: ITS Impressions Venous Duplex 12/19/21 20:16 IMPRESSION: No DVT demonstrated in the bilateral lower extremity. Medications Medications Current Medications Acetaminophen (Acetaminophen 325 Mg Tablet) 650 mg PO Q6H PRN PRN Reason: Headache/Pain Mild Scale (1-3) Last Admin: 12/30/21 18:04 Dose: 650 mg Al Hydroxide/Mg Hydroxide (Magnesium Hydrox/Alum Hydrox 30 Ml Oral.Susp) 30 ml PO Q6H PRN PRN Reason: Heartburn/Nausea Last Admin: 01/21/22 23:03 Dose: 30 ml Albuterol Sulfate (Albuterol Sulfate 90 Mcg 8 Gm Inhaler) 2 puff INHALE Q4H PRN PRN Reason: shortness of breath or wheezing Last Admin: 01/19/22 22:39 Dose: 2 puff Artificial Tears (Artificial Tears 15 Ml Drops) 2 drop EYE-BOTH Q4H PRN PRN Reason: Dry Eyes Last Admin: 01/22/22 10:08 Dose: 2 drop Ascorbic Acid (Ascorbic Acid 250 Mg Tablet) 250 mg PO DAILY [facility] Last Admin: 01/23/22 08:35 Dose: 250 mg Benzocaine (Throat Lozenge, Medicated Lozenge) 1 lozenge MUCOUS MEM Q1H PRN PRN Reason: Sore Throat Last Admin: 12/27/21 06:54 Dose: 1 lozenge Bisacodyl (Bisacodyl 10 Mg Supp.Rect) 10 mg HI BEDTIME PRN PRN Reason: Constipation Last Admin: 12/06/21 21:14 Dose: 10 mg Carbamazepine (Carbamazepine Er 200 Mg Tab.Er.12h) 800 mg PO BEDTIME DAVY Last Admin: 01/23/22 20:54 Dose: 800 mg Carbamazepine (Carbamazepine Er 200 Mg Tab.Er.12h) 800 mg PO DAILY [facility] Last Admin: 01/23/22 08:34 Dose: 800 mg Clonazepam (Clonazepam 1 Mg Tablet) 1 mg PO TID DAVY Last Admin: 01/23/22 20:55 Dose: 1 mg Clozapine (Clozapine 100 Mg Tablet) 100 mg PO BEDTIME DAVY Last Admin: 01/23/22 20:55 Dose: 100 mg Diphenhydramine HCl (Diphenhydramine Hcl 25 Mg Capsule) 50 mg PO Q6H PRN PRN Reason: Itching Last Admin: 01/23/22 16:28 Dose: 50 mg Famotidine (Famotidine 20 Mg Tablet) 20 mg PO BID DAVY Last Admin: 01/23/22 20:55 Dose: 20 mg Fluticasone/Vilanterol (Fluticasone/Vilanterol 100/25 Blst.W.Dev) 1 puff INHALE DAILY [facility] Last Admin: 01/23/22 08:37 Dose: 1 puff Furosemide (Furosemide 40 Mg Tablet) 40 mg PO DAILY DAVY; Protocol Last Admin: 01/23/22 08:35 Dose: 40 mg Guaifenesin (Guaifenesin La 600 Mg Tab.Er.12h) 600 mg PO BID PRN PRN Reason: thick secretions Last Admin: 01/03/22 23:25 Dose: 600 mg Hydroxyzine HCl (Hydroxyzine Hcl 50 Mg Tablet) 50 mg PO Q6H PRN PRN Reason: Anxiety Last Admin: 01/22/22 16:22 Dose: 50 mg Ibuprofen (Ibuprofen 600 Mg Tablet) 600 mg PO Q6H PRN PRN Reason: aches and pains Last Admin: 01/22/22 23:43 Dose: 600 mg Lactic Acid (Ammonium Lactate 12 % Lotion 226 Gm Bottle) 1 appl TOPICAL BID DAVY; Protocol Last Admin: 01/23/22 21:33 Dose: Not Given Lidocaine/Diphenhydr/Alum/Mg/Simeth (Mag&Al/Sim/Diphenhyd/Lidocaine 10 Ml Oral.Susp) 10 ml PO Q4H PRN; Protocol PRN Reason: oral mucous membrane ulcer jeremiah Last Admin: 12/20/21 02:20 Dose: 10 ml Magnesium Hydroxide (Milk Of Magnesia 30 Ml Oral.Susp) 30 ml PO DAILY PRN PRN Reason: Constipation Last Admin: 01/17/22 17:31 Dose: 30 ml Nicotine Polacrilex (Nicotine Polacrilex 2 Mg Gum) 4 mg BUCCAL Q1H PRN PRN Reason: Nicotine Cravings Last Admin: 01/23/22 21:07 Dose: 4 mg Olanzapine (Olanzapine Odt 10 Mg Tab.Rapdis) 40 mg TRANSLINGU BEDTIME DAVY Last Admin: 01/23/22 20:54 Dose: 40 mg Perphenazine (Perphenazine 8 Mg Tablet) 16 mg PO TID DAVY Last Admin: 01/23/22 20:55 Dose: 16 mg Prazosin HCl (Prazosin Hcl 1 Mg Capsule) 2 mg PO BEDTIME DAVY; Protocol Last Admin: 01/23/22 20:54 Dose: 2 mg Psyllium Hydrophilic Mucilloid (Psyllium Seed 3.4 Gm Powd.Pack) 3.4 gm PO BID DAVY Last Admin: 01/23/22 20:53 Dose: 3.4 gm Quetiapine Fumarate (Quetiapine Fumarate 200 Mg Tablet) 200 mg PO Q2H PRN PRN Reason: insomnia/agitation Last Admin: 01/13/22 21:16 Dose: 200 mg Simethicone (Simethicone 80 Mg Tab.Chew) 80 mg PO QIDWMHS PRN PRN Reason: flatulence Last Admin: 01/20/22 16:37 Dose: 80 mg Tamsulosin HCl (Tamsulosin Hcl 0.4 Mg Capsule) 0.4 mg PO BEDTIME DAVY Last Admin: 01/23/22 20:54 Dose: 0.4 mg Trazodone HCl (Trazodone Hcl 50 Mg Tablet) 150 mg PO BEDTIME DAVY Last Admin: 01/23/22 20:54 Dose: 150 mg Trazodone HCl (Trazodone Hcl 50 Mg Tablet) 50 mg PO BEDTIME PRN PRN Reason: Insomnia Last Admin: 01/18/22 23:31 Dose: 50 mg Vitamin E (Vitamin E (Dl,Tocopheryl Acet) 180 Mg (400 Unit) Capsule) 180 mg PO BID DAVY Last Admin: 01/23/22 20:55 Dose: 180 mg Allergies Allergies Allergy/AdvReac Type Severity Reaction Status Date / Time divalproex sodium Allergy Severe PANCREATITI Verified 11/24/21 14:34 [From DEPAKOTE] S haloperidol [From Haldol] Allergy Intermediate DYSTONIC Verified 11/24/21 14:34 REACTION Assessment & Plan Assessment & Plan (1) Schizoaffective disorder: Status: Acute Code(s): F25.9 - Schizoaffective disorder, unspecified (2) Cellulitis: Status: Acute Code(s): L03.90 - Cellulitis, unspecified Assessment and Plan: 51yo M with COPD, HLD, obesity, BPH, ex-smoker, bipolar-type schizoaffective disorder admitted to [facility]. Developed infection of R foot yesterday as well as symptomatic Covid-19 infection without hypoxia. # nonpurulent cellulitis - doxycycline x7d. no need for blood culture. monitor clinically for improvement. (3) COVID-19: Status: Acute Code(s): U07.1 - COVID-19 Assessment and Plan: 51yo M with COPD, HLD, obesity, BPH, ex-smoker, bipolar-type schizoaffective disorder admitted to [facility]. Developed infection of R foot yesterday as well as symptomatic Covid-19 infection without hypoxia. # Covid-19 infection - not hypoxic; no steroids indicated. Paxlovid contraindicated by use of carbamezapine. can give 3 days of IV remdesivir as alternative. Monitor SaO2 qshift. beginning 12/20/21, isolation x5d then mask-wearing x5d Plan 12/03: continue home meds for now. CV rejected as pt unable to appreciate the circumstances of his admission. will need commitment and benedicto's order. T/C restarting clozaril and lithium, on which pt did well for many years, reportedly. tegretol increased from 400 BID to 600 BID at admission. 12/04: klonopin 0.5/0.5/ reinstated 12/04 (outpt provider had started it 11/25 at 1 mg TID). magic mouthwash started for oral ulcers. 12/05: slept well last night, still pressured and disorganized.? continue current mgmt. 12/08: 12b up, applied for commitment and meds.? making sexually inappropriate comments/suggestions to staff, threatening violence and toward male peer. 12/09: same presentation as yesterday.? started lithium 450 mg BID today. 12/10: no change in presentation, compliant with lithium. 12/11: DC prazosin to see if B/L pedal edema decreases.? DC pravachol as pt is refusing it.? order lac-hydrin for plantar fissure.? otherwise continue previous mgmt.? perhaps slight decrease in pressure and disorganization. 12/12: pedal edema no worse, perhaps better.? no GI side effects from lithium.? fissure looks improved with cream.? check lithium, tegretol, associated labs on wednesday (ordered).? titrate lithium as indicated. 12/13 pt manic, disorganized, intrusive, blaming, threatening (told investment underwriter someone would come over and break his neck) -consider switching to Zyprexa from seroquel 12/14 her is manic, intrusive irritable, grandiose [place] level subtherapeutic; however patient is very anxious about this medication causing side effects and at this time investment underwriter thinks it might be better to leave it is current dose since patient continues to take it and trying to increase it may very well cause him to refuse it altogether; he is also on Tegretol.? Perhaps switching antipsychotics to Zyprexa is warranted.? Patient says he has never taken Zyprexa before.? Patient typically knows his medication history however usually when someone gets on clozapine it is because most other medications have not worked.? [place] has just reached at steady state so will hold off making medication adjustments right now to see if there can be any further benefit observed from currently lithium dose and medication regimen. 12/15 no change; clonazepam at started off and was not restarted.? Patient did take p.o. laxatives and had a bowel movement says he feels better. 12/16:? increase tegretol from 600 BID to 600/800 tonight, as level around 7.? lithium sub-therapeutic but pt resistant to increase, will see how much better he can get on higher tegretol dosing.? T/C switching anti-psychotic to zyprexa, as pt has done well on clozaril in the past.? TEDs obtained for pedal edema. 12/17: no change in mgmt.? presentation not substantially changed.? some agitation today. 12/18: presentation essentially unchanged.? no agitation today, sleeping late morning. 12/19: Assessed for pedal edema, spoke with hospitalist, BNP, BMP wnl, venous doppler wnl. Per hospitalist, continue with TEDs, may consider low dose lasix. 12/20: stable presentation.? continue current mgmt.? check tegretol level about a week after dose increase.? trending more calm than earlier in his stay but remains very psychotic.? T/C trial of olanzapine. 12/21:? taper and DC lithium and it appears to be having unsustainable physical side effects (B/L LE edema, now possibly with cellulitis).? also tested COVID POS today, satting mid 902 on RA.? hospitalist consult placed for eval of COVID severity and R/O cellulitis.? T/C olanzapine trial once lithium has been DCed. 12/22: stable, appears medically better than yesterday. continue lithium taper, to 150 BID tonight and tomorrow morning. start ibuprofen for better pain control with COVID. continue antibiotic and antiviral. 12/24 continue current tx. O2 sat >93, no s/s of respiratory distress. afebrile. 12/25: course of remdesivir complete, doxy ongoing. rash has not spread, likely related to edema and dependent limbs. less purpuric and more pinpoint red with bruising. edema improved. c/o productive cough, expectorant Rx'ed. otherwise continue current mgmt. per CDC guidelines, persons with moderate COVID (which includes having oxygen saturation less than 94%) should isolate for 10 days. 12/26: stable, in quarantine day #6 of . continue current mgmt. check labs on wednesday morning. 12/27: Continue current regimen and plans. Continue quarantine. 12/28: Continue current plans and regimen 12/29: increasingly disorganized and hyperverbal since DC of lithium. B/L pedal edema dose seem to be improving. day #9 of quarantine. tegretol level 8, other labs unremarkable aside from anemia. 12/30: obsessively scrubbing floor overnight, up all NOC. sleeping during day. more disorganized, hyperverbal. DC seroquel and start olanzapine 30 mg QHS. seroquel 200 mg PRNs for insomnia. 12/31: c/o persisting edema. perhaps lithium is not the largest offender; the only other change has been increasing tegretol dosing (edema identified as a side effect only in post-marketing, frequency not provided by [facility]da). lasix 20 mg one time tomorrow morning. otherwise continue current mgmt. slept well last night with zyprexa at HS. 01/01: slept 3 hours overnight. give lasix 40 mg daily x 3 days as 20 mg dose this morning was not effective. pedal edema remains below the ankle. continue current mgmt otherwise. 01/02: continues to have only several hours of sleep at night. reports good diuresis on lasix 40. continue to monitor pedal edema and efficacy of olanzapine + tegretol (and perphenazine) regimen. 01/03 continue current plan. 01/04 continue tx. 01/05: no change to Tx plan. 01/06: increase zyprexa to 40 mg at HS, restart lasix 20 mg daily for pedal edema. trending more organized and less pressured, but by no means well. 01/07: continues to appear less pressured and more organized. paranoia persists. 01/08: more disorganized and pressured today. met with new RENEE. [facility] mtg next wednesday. lasix increased to 40 mg to combat edema. 01/09: sleeping day shift. reportedly slept 5 hours last night. no change in presentation otherwise. continue current mgmt. 01/10/Continue treatment plan including HOLD on scheduled seroquel 01/11 Contnue current treatment plan 01/12: continue current mgmt. more calm and organized today than last week. mtg with sister tuesday 01/16. 01/13: continue current mgmt. continues more organized and calm. pursuing GINNA. 01/14: no change in mgmt. continues more linear, logical, topical. awaiting OT testing results. mtg with sister wednesday. 01/15: stable, no complaints or requests. scored 4.6 on OT testing, meaning he may live on his own with support at the level of check-ins weekly. mtg with sister tomorrow. 01/16: mtg with sister, OT, RENEE, . pt reactive, labile, disorganized, bizarre in the face of any discussion of his ability or lack thereof to live independently. at sister's urging, pt agreed to restart clozaril at 25 mg daily. 01/17: took clozapine 25 last night. increase dose again tomorrow. clearly agitated at the idea of being back on clozapine, quite hyper-aroused during interview with MD today. 01/18: increase clozapine to 50 mg QHS as of tonight. pt reports subjective improvement since restarting clozapine, no such improvement observed by clinical staff. 01/19: continue current mgmt. increase clozapine to 75 mg tomorrow. less labile and paranoid today. 01/20: presentation as per yesterday. denies side effects from medication. increase clozapine to 75 mg as of this evening. 01/21 increase clozaril to 100mg po qhs. continue other medications. 01/22 continue current medications. add benadryl for itchiness. 01/23 continue tx. add cortisone lotion, will check cbcy, if continues to worsen, will ask hospitalist consult. 01/24: No med changes, skin excoriation areas are not infected, using bacitracin I spent minutes with the patient and/or on the patient floor today, greater than?50% of which was spent counseling/coordinating care. Patient educated on: therapeutic strategies Reason for contiued inpatient stay Substantial Risk for: inability to function, rapid decompensation and med/psych decompensation
[2022-01-24] MEDS: Nicotine Polacrilex 2 MG GUM 4 MG BUCCAL ×10 (04:01→20:23)
[2022-01-24] MEDS: diphenhydrAMINE HCL 25 MG CAPSULE 50 MG PO ×3 (05:52→20:44)
[2022-01-24 08:30] VITALS: BP 125/73; PULSE 71; RESP 20; TEMP 36.4; O2SAT 100
[2022-01-24] MEDS: Famotidine 20 MG TABLET PO ×2 (08:40→20:44)
[2022-01-24] MEDS: Vitamin E (Dl,Tocopheryl Acet) 180 MG (400 UNIT) CAPSULE PO ×2 (08:40→22:07)
[2022-01-24] MEDS: Ascorbic Acid 250 MG TABLET PO (08:40)
[2022-01-24] MEDS: carBAMazepine ER 200 MG TAB.ER.12H 800 MG PO ×2 (08:40→20:44)
[2022-01-24] MEDS: Fluticasone/Vilanterol 100/25 BLST.W.DEV 1 PUFF INHALE (08:40)
[2022-01-24] MEDS: Sennosides/Docusate Sodium TABLET 1 TAB PO ×2 (08:40→20:45)
[2022-01-24] MEDS: Furosemide 40 MG TABLET PO (08:40)
[2022-01-24] MEDS: clonazePAM 1 MG TABLET PO ×3 (08:40→20:44)
[2022-01-24 09:12] LABS: MANUAL DIFF FLAG NO
[2022-01-24] MEDS: Perphenazine 8 MG TABLET 16 MG PO ×3 (09:12→20:44)
[2022-01-24 09:19] LABS: Basophils Percent Auto 0.5 % (0-2); Eosinophils Absolute Auto 0.2 X10*3/uL (0.0-0.4); Eosinophils Percent Auto 3.1 % (0-4); Hematocrit 42.4 % (42.0-52.0); Hemoglobin 13.7 g/dl (14.0-18.0); Imm Gran Abs Auto 0.02 X10*3/uL (0.00-0.03); Imm Gran Pct Auto 0.3 % (0.0-0.4); Lymphocytes Absolute Auto 1.2 X10*3/uL (1.2-4.9); Lymphocytes Percent Auto 20.9 % (20-40); Mean Corpuscular HGB Conc 32.3 g/dl (31.0-36.0); Mean Corpuscular Hemoglobin 30.7 pg (27.0-33.0); Mean Corpuscular Volume 95.1 fL (80.0-98.0); Mean Platelet Volume 10.5 fL (9.4-12.4); Monocytes Absolute Auto 0.5 X10*3/uL (0.1-1.2); Monocytes Percent Auto 8.7 % (2-11); Neutrophils Absolute Auto 3.9 x10*3/uL (2.0-8.3); Neutrophils Percent Auto 66.5 % (45-73); Platelet Count 203 X10*3/uL (160-400); Red Blood Count 4.46 X10*6/uL (4.60-5.80); Red Cell Distribution Width 13.1 % (11.0-16.0); White Blood Count 5.9 X10*3/uL (4.8-10.8)
[2022-01-24] MEDS: Hydrocortisone 1 % Ointment 28.35 GM TUBE 1 APPL TOPICAL ×2 (11:07→21:36)
[2022-01-24] MEDS: Ammonium Lactate 12 % Lotion 226 GM BOTTLE 1 APPL TOPICAL ×2 (11:07→21:36)
[2022-01-24] MEDS: Artificial Tears 15 ML DROPS 2 DROP EYE-BOTH ×2 (13:54→21:04)
[2022-01-24 20:40] VITALS: BP 111/80; PULSE 80; RESP 16; TEMP 35.7; O2SAT 99
[2022-01-24] MEDS: Prazosin HCL 1 MG CAPSULE 2 MG PO (20:44)
[2022-01-24] MEDS: OLANZapine ODT 10 MG TAB.RAPDIS 40 MG TRANSLINGU (20:44)
[2022-01-24] MEDS: Ibuprofen 600 MG TABLET PO (20:45)
[2022-01-24] MEDS: cloZAPine 100 MG TABLET PO (20:45)
[2022-01-24] MEDS: traZODone HCL 50 MG TABLET 150 MG PO (22:07)
[2022-01-24] MEDS: Tamsulosin HCL 0.4 MG CAPSULE PO (22:07)
--- NOTE | 2022-01-25 01:48 | P.PNPSI_ITS ---
Subjective Subjective Date of Service: 01/25/22 Reason For Visit: psychosis Subjective Notes: Andrews Warning and Conditional Voluntary Interim History: Discussed with team. Spoke with pt, says he is doing alright, wants to go home, asks when he is discharging. He is found reading, says he is focused on reading his books. He is tangential and difficult to follow, still disorganized speech but no behavioral issues, appropriate. Mental Status Exam Mental Status Exam Narrative: dressed in street clothes.? behavior is cooperative; adequate hygiene;? affect normo-intense, non-labile;? Speech incr rate, nml amount, nml loudness.? nml prosody, decr latency; thought process tangential and loose. no delusions explicitly expressed.? no SI/HI/AVH expressed.? Patients insight and judgment are impaired. Diagnostics Vital Signs (24Hr): Vital Signs - 24 hr 01/24/22 08:30 01/24/22 20:40 Temperature 97.5 F 96.2 F L Pulse Rate 71 80 Respiratory Rate 20 16 Blood Pressure 125/73 111/80 Pulse Oximetry 100 99 Oxygen Delivery Method Room Air Room Air BMI result Body Mass Index 30.7 Labs Results: 01/24/22 08:44 12/29/21 08:55 Labs: Laboratory Results - last 48 hr 01/23/22 01/24/22 08:11 08:44 WBC 5.9 RBC 4.46 L Hgb 13.7 L Hct 42.4 MCV 95.1 MCH 30.7 MCHC 32.3 RDW 13.1 Plt Count 203 MPV 10.5 Immature Gran % (Auto) 0.3 Neut % (Auto) 66.5 Lymph % (Auto) 20.9 [place] % (Auto) 8.7 Eos % (Auto) 3.1 Baso % (Auto) 0.5 Lymph # (Auto) 1.2 [place] # (Auto) 0.5 Eos # (Auto) 0.2 Baso # (Auto) 0.0 Abs Immat Gran (auto) 0.02 Absolute Neuts (auto) 3.5 3.9 Absolute Nucleated RBC 0.000 Nucleated RBC % (auto) 0.0 Imaging Radiology Impressions: ITS Impressions Venous Duplex 12/19/21 20:16 IMPRESSION: No DVT demonstrated in the bilateral lower extremity. Medications Medications Current Medications Acetaminophen (Acetaminophen 325 Mg Tablet) 650 mg PO Q6H PRN PRN Reason: Headache/Pain Mild Scale (1-3) Last Admin: 12/30/21 18:04 Dose: 650 mg Al Hydroxide/Mg Hydroxide (Magnesium Hydrox/Alum Hydrox 30 Ml Oral.Susp) 30 ml PO Q6H PRN PRN Reason: Heartburn/Nausea Last Admin: 01/21/22 23:03 Dose: 30 ml Albuterol Sulfate (Albuterol Sulfate 90 Mcg 8 Gm Inhaler) 2 puff INHALE Q4H PRN PRN Reason: shortness of breath or wheezing Last Admin: 01/19/22 22:39 Dose: 2 puff Artificial Tears (Artificial Tears 15 Ml Drops) 2 drop EYE-BOTH Q4H PRN PRN Reason: Dry Eyes Last Admin: 01/24/22 21:04 Dose: 2 drop Ascorbic Acid (Ascorbic Acid 250 Mg Tablet) 250 mg PO DAILY [facility] Last Admin: 01/24/22 08:40 Dose: 250 mg Benzocaine (Throat Lozenge, Medicated Lozenge) 1 lozenge MUCOUS MEM Q1H PRN PRN Reason: Sore Throat Last Admin: 12/27/21 06:54 Dose: 1 lozenge Bisacodyl (Bisacodyl 10 Mg Supp.Rect) 10 mg WA BEDTIME PRN PRN Reason: Constipation Last Admin: 12/06/21 21:14 Dose: 10 mg Carbamazepine (Carbamazepine Er 200 Mg Tab.Er.12h) 800 mg PO BEDTIME [facility] Last Admin: 01/24/22 20:44 Dose: 800 mg Carbamazepine (Carbamazepine Er 200 Mg Tab.Er.12h) 800 mg PO DAILY [facility] Last Admin: 01/24/22 08:40 Dose: 800 mg Clonazepam (Clonazepam 1 Mg Tablet) 1 mg PO TID [facility] Last Admin: 01/24/22 20:44 Dose: 1 mg Clozapine (Clozapine 100 Mg Tablet) 100 mg PO BEDTIME [facility] Last Admin: 01/24/22 20:45 Dose: 100 mg Diphenhydramine HCl (Diphenhydramine Hcl 25 Mg Capsule) 50 mg PO Q6H PRN PRN Reason: Itching Last Admin: 01/24/22 20:44 Dose: 50 mg Famotidine (Famotidine 20 Mg Tablet) 20 mg PO BID [facility] Last Admin: 01/24/22 20:44 Dose: 20 mg Fluticasone/Vilanterol (Fluticasone/Vilanterol 100/25 Blst.W.Dev) 1 puff INHALE DAILY [facility] Last Admin: 01/24/22 08:40 Dose: 1 puff Furosemide (Furosemide 40 Mg Tablet) 40 mg PO DAILY [facility]; Protocol Last Admin: 01/24/22 08:40 Dose: 40 mg Guaifenesin (Guaifenesin La 600 Mg Tab.Er.12h) 600 mg PO BID PRN PRN Reason: thick secretions Last Admin: 01/03/22 23:25 Dose: 600 mg Hydrocortisone (Hydrocortisone 1 % Ointment 28.35 Gm Tube) 1 appl TOPICAL BID [facility]Y; Protocol Last Admin: 01/24/22 21:36 Dose: 1 appl Hydroxyzine HCl (Hydroxyzine Hcl 50 Mg Tablet) 50 mg PO Q6H PRN PRN Reason: Anxiety Last Admin: 01/22/22 16:22 Dose: 50 mg Ibuprofen (Ibuprofen 600 Mg Tablet) 600 mg PO Q6H PRN PRN Reason: aches and pains Last Admin: 01/24/22 20:45 Dose: 600 mg Lactic Acid (Ammonium Lactate 12 % Lotion 226 Gm Bottle) 1 appl TOPICAL BID [facility]Y; Protocol Last Admin: 01/24/22 21:36 Dose: 1 appl Lidocaine/Diphenhydr/Alum/Mg/Simeth (Mag&Al/Sim/Diphenhyd/Lidocaine 10 Ml Oral.Susp) 10 ml PO Q4H PRN; Protocol PRN Reason: oral mucous membrane ulcer jeremiah Last Admin: 12/20/21 02:20 Dose: 10 ml Magnesium Hydroxide (Milk Of Magnesia 30 Ml Oral.Susp) 30 ml PO DAILY PRN PRN Reason: Constipation Last Admin: 01/17/22 17:31 Dose: 30 ml Nicotine Polacrilex (Nicotine Polacrilex 2 Mg Gum) 4 mg BUCCAL Q1H PRN PRN Reason: Nicotine Cravings Last Admin: 01/24/22 20:23 Dose: 4 mg Olanzapine (Olanzapine Odt 10 Mg Tab.Rapdis) 40 mg TRANSLINGU BEDTIME [facility] Last Admin: 01/24/22 20:44 Dose: 40 mg Perphenazine (Perphenazine 8 Mg Tablet) 16 mg PO TID [facility] Last Admin: 01/24/22 20:44 Dose: 16 mg Prazosin HCl (Prazosin Hcl 1 Mg Capsule) 2 mg PO BEDTIME [facility]; Protocol Last Admin: 01/24/22 20:44 Dose: 2 mg Quetiapine Fumarate (Quetiapine Fumarate 200 Mg Tablet) 200 mg PO Q2H PRN PRN Reason: insomnia/agitation Last Admin: 01/13/22 21:16 Dose: 200 mg Senna/Docusate Sodium (Sennosides/Docusate Sodium Tablet) 1 tab PO BID [facility] Last Admin: 01/24/22 20:45 Dose: 1 tab Simethicone (Simethicone 80 Mg Tab.Chew) 80 mg PO QIDWMHS PRN PRN Reason: flatulence Last Admin: 01/20/22 16:37 Dose: 80 mg Tamsulosin HCl (Tamsulosin Hcl 0.4 Mg Capsule) 0.4 mg PO BEDTIME [facility] Last Admin: 01/24/22 22:07 Dose: 0.4 mg Trazodone HCl (Trazodone Hcl 50 Mg Tablet) 150 mg PO BEDTIME [facility] Last Admin: 01/24/22 22:07 Dose: 150 mg Trazodone HCl (Trazodone Hcl 50 Mg Tablet) 50 mg PO BEDTIME PRN PRN Reason: Insomnia Last Admin: 01/18/22 23:31 Dose: 50 mg Vitamin E (Vitamin E (Dl,Tocopheryl Acet) 180 Mg (400 Unit) Capsule) 180 mg PO BID [facility] Last Admin: 01/24/22 22:07 Dose: 180 mg Allergies Allergies Allergy/AdvReac Type Severity Reaction Status Date / Time divalproex sodium Allergy Severe PANCREATITI Verified 11/24/21 14:34 [From DEPAKOTE] S haloperidol [From Haldol] Allergy Intermediate DYSTONIC Verified 11/24/21 14:34 REACTION Assessment & Plan Assessment & Plan (1) Schizoaffective disorder: Status: Acute Code(s): F25.9 - Schizoaffective disorder, unspecified (2) Cellulitis: Status: Acute Code(s): L03.90 - Cellulitis, unspecified Assessment and Plan: 51yo M with COPD, HLD, obesity, BPH, ex-smoker, bipolar-type schizoaffective disorder admitted to [facility]. Developed infection of R foot yesterday as well as symptomatic Covid-19 infection without hypoxia. # nonpurulent cellulitis - doxycycline x7d. no need for blood culture. monitor clinically for improvement. (3) COVID-19: Status: Acute Code(s): U07.1 - COVID-19 Assessment and Plan: 51yo M with COPD, HLD, obesity, BPH, ex-smoker, bipolar-type schizoaffective disorder admitted to [facility]. Developed infection of R foot yesterday as well as symptomatic Covid-19 infection without hypoxia. # Covid-19 infection - not hypoxic; no steroids indicated. Paxlovid contraindicated by use of carbamezapine. can give 3 days of IV remdesivir as alternative. Monitor SaO2 qshift. beginning 12/20/21, isolation x5d then mask-wearing x5d Plan 12/03: continue home meds for now. CV rejected as pt unable to appreciate the circumstances of his admission. will need commitment and benedicto's order. T/C restarting clozaril and lithium, on which pt did well for many years, reportedly. tegretol increased from 400 BID to 600 BID at admission. 12/04: klonopin 0.5/0.5/1 reinstated 12/04 (outpt provider had started it 11/25 at 1 mg TID). magic mouthwash started for oral ulcers. 12/05: slept well last night, still pressured and disorganized.? continue current mgmt. 12/08: 12b up, applied for commitment and meds.? making sexually inappropriate comments/suggestions to staff, threatening violence and toward male peer. 12/09: same presentation as yesterday.? started lithium 450 mg BID today. 12/10: no change in presentation, compliant with lithium. 12/11: DC prazosin to see if B/L pedal edema decreases.? DC pravachol as pt is refusing it.? order lac-hydrin for plantar fissure.? otherwise continue previous mgmt.? perhaps slight decrease in pressure and disorganization. 12/12: pedal edema no worse, perhaps better.? no GI side effects from lithium.? fissure looks improved with cream.? check lithium, tegretol, associated labs on wednesday (ordered).? titrate lithium as indicated. 12/13 pt manic, disorganized, intrusive, blaming, threatening (told [employer] someone would come over and break his neck) -consider switching to Zyprexa from seroquel 12/14 her is manic, intrusive irritable, grandiose [place] level subtherapeutic; however patient is very anxious about this medication causing side effects and at this time [employer] thinks it might be better to leave it is current dose since patient continues to take it and trying to increase it may very well cause him to refuse it altogether; he is also on Tegretol.? Perhaps switching antipsychotics to Zyprexa is warranted.? Patient says he has never taken Zyprexa before.? Patient typically knows his medication history however usually when someone gets on clozapine it is because most other medications have not worked.? [place] has just reached at steady state so will hold off making medication adjustments right now to see if there can be any further benefit observed from currently lithium dose and medication regimen. 12/15 no change; clonazepam at started off and was not restarted.? Patient did take p.o. laxatives and had a bowel movement says he feels better. 12/16:? increase tegretol from 600 BID to 600/800 tonight, as level around 7.? lithium sub-therapeutic but pt resistant to increase, will see how much better he can get on higher tegretol dosing.? T/C switching anti-psychotic to zyprexa, as pt has done well on clozaril in the past.? TEDs obtained for pedal edema. 12/17: no change in mgmt.? presentation not substantially changed.? some agitation today. 12/18: presentation essentially unchanged.? no agitation today, sleeping late morning. 12/19: Assessed for pedal edema, spoke with hospitalist, BNP, BMP wnl, venous doppler wnl. Per hospitalist, continue with TEDs, may consider low dose lasix. 12/20: stable presentation.? continue current mgmt.? check tegretol level about a week after dose increase.? trending more calm than earlier in his stay but remains very psychotic.? T/C trial of olanzapine. 12/21:? taper and DC lithium and it appears to be having unsustainable physical side effects (B/L LE edema, now possibly with cellulitis).? also tested COVID POS today, satting mid 902 on RA.? hospitalist consult placed for eval of COVID severity and R/O cellulitis.? T/C olanzapine trial once lithium has been DCed. 12/22: stable, appears medically better than yesterday. continue lithium taper, to 150 BID tonight and tomorrow morning. start ibuprofen for better pain control with COVID. continue antibiotic and antiviral. 12/24 continue current tx. O2 sat >93, no s/s of respiratory distress. afebrile. 12/25: course of remdesivir complete, doxy ongoing. rash has not spread, likely related to edema and dependent limbs. less purpuric and more pinpoint red with bruising. edema improved. c/o productive cough, expectorant Rx'ed. otherwise continue current mgmt. per CDC guidelines, persons with moderate COVID (which includes having oxygen saturation less than 94%) should isolate for 10 days. 12/26: stable, in quarantine day #6 of . continue current mgmt. check labs on wednesday morning. 12/27: Continue current regimen and plans. Continue quarantine. 12/28: Continue current plans and regimen 12/29: increasingly disorganized and hyperverbal since DC of lithium. B/L pedal edema dose seem to be improving. day #9 of quarantine. tegretol level 8, other labs unremarkable aside from anemia. 12/30: obsessively scrubbing floor overnight, up all NOC. sleeping during day. more disorganized, hyperverbal. DC seroquel and start olanzapine 30 mg QHS. seroquel 200 mg PRNs for insomnia. 12/31: c/o persisting edema. perhaps lithium is not the largest offender; the only other change has been increasing tegretol dosing (edema identified as a side effect only in post-marketing, frequency not provided by update). lasix 20 mg one time tomorrow morning. otherwise continue current mgmt. slept well last night with zyprexa at HS. 01/01: slept 3 hours overnight. give lasix 40 mg daily x 3 days as 20 mg dose this morning was not effective. pedal edema remains below the ankle. continue current mgmt otherwise. 01/02: continues to have only several hours of sleep at night. reports good diuresis on lasix 40. continue to monitor pedal edema and efficacy of olanzapine + tegretol (and perphenazine) regimen. 01/03 continue current plan. 01/04 continue tx. 01/05: no change to Tx plan. 01/06: increase zyprexa to 40 mg at HS, restart lasix 20 mg daily for pedal edema. trending more organized and less pressured, but by no means well. 01/07: continues to appear less pressured and more organized. paranoia persists. 01/08: more disorganized and pressured today. met with new RENEE. [facility] mtg next wednesday. lasix increased to 40 mg to combat edema. 01/09: sleeping day shift. reportedly slept 5 hours last night. no change in presentation otherwise. continue current mgmt. 01/10/Continue treatment plan including HOLD on scheduled seroquel 01/11 Contnue current treatment plan 01/12: continue current mgmt. more calm and organized today than last week. mtg with sister tuesday 01/16. 01/13: continue current mgmt. continues more organized and calm. pursuing GINNA. 01/14: no change in mgmt. continues more linear, logical, topical. awaiting OT testing results. mtg with sister wednesday. 01/15: stable, no complaints or requests. scored 4.6 on OT testing, meaning he may live on his own with support at the level of check-ins weekly. mtg with sister tomorrow. 01/16: mtg with sister, OT, MD RENEE. pt reactive, labile, disorganized, bizarre in the face of any discussion of his ability or lack thereof to live independently. at sister's urging, pt agreed to restart clozaril at 25 mg daily. 01/17: took clozapine 25 last night. increase dose again tomorrow. clearly agitated at the idea of being back on clozapine, quite hyper-aroused during interview with MD today. 01/18: increase clozapine to 50 mg QHS as of tonight. pt reports subjective improvement since restarting clozapine, no such improvement observed by clinical staff. 01/19: continue current mgmt. increase clozapine to 75 mg tomorrow. less labile and paranoid today. 01/20: presentation as per yesterday. denies side effects from medication. increase clozapine to 75 mg as of this evening. 01/21 increase clozaril to 100mg po qhs. continue other medications. 01/22 continue current medications. add benadryl for itchiness. 01/23 continue tx. add cortisone lotion, will check cbcy, if continues to worsen, will ask hospitalist consult. 01/24: No med changes, skin excoriation areas are not infected, using bacitracin 01/25: no med changes I spent minutes with the patient and/or on the patient floor today, greater than?50% of which was spent counseling/coordinating care. Patient educated on: therapeutic strategies Reason for contiued inpatient stay Substantial Risk for: rapid decompensation and med/psych decompensation
[2022-01-25] MEDS: Nicotine Polacrilex 2 MG GUM 4 MG BUCCAL ×10 (06:06→22:52)
[2022-01-25 08:33] VITALS: BP 130/74; PULSE 70; RESP 20; TEMP 36.4; O2SAT 99
[2022-01-25] MEDS: carBAMazepine ER 200 MG TAB.ER.12H 800 MG PO ×2 (08:34→22:18)
[2022-01-25] MEDS: Perphenazine 8 MG TABLET 16 MG PO ×3 (08:35→22:18)
[2022-01-25] MEDS: Vitamin E (Dl,Tocopheryl Acet) 180 MG (400 UNIT) CAPSULE PO ×2 (08:35→22:18)
[2022-01-25] MEDS: clonazePAM 1 MG TABLET PO ×3 (08:35→22:19)
[2022-01-25] MEDS: Sennosides/Docusate Sodium TABLET 1 TAB PO ×2 (08:35→22:19)
[2022-01-25] MEDS: Ascorbic Acid 250 MG TABLET PO (08:35)
[2022-01-25] MEDS: Furosemide 40 MG TABLET PO (08:35)
[2022-01-25] MEDS: Famotidine 20 MG TABLET PO ×2 (08:35→22:18)
[2022-01-25] MEDS: Fluticasone/Vilanterol 100/25 BLST.W.DEV 1 PUFF INHALE (10:33)
[2022-01-25] MEDS: Ammonium Lactate 12 % Lotion 226 GM BOTTLE 1 APPL TOPICAL ×2 (12:25→23:07)
[2022-01-25] MEDS: Hydrocortisone 1 % Ointment 28.35 GM TUBE 1 APPL TOPICAL ×2 (12:25→23:07)
[2022-01-25 22:00] VITALS: BP 125/65; PULSE 65; RESP 16; TEMP 36.9; O2SAT 99
[2022-01-25] MEDS: diphenhydrAMINE HCL 25 MG CAPSULE 50 MG PO (22:17)
[2022-01-25] MEDS: OLANZapine ODT 10 MG TAB.RAPDIS 40 MG TRANSLINGU (22:17)
[2022-01-25] MEDS: Prazosin HCL 1 MG CAPSULE 2 MG PO (22:18)
[2022-01-25] MEDS: traZODone HCL 50 MG TABLET 150 MG PO (22:18)
[2022-01-25] MEDS: Tamsulosin HCL 0.4 MG CAPSULE PO (22:18)
[2022-01-25] MEDS: cloZAPine 100 MG TABLET PO (22:19)
[2022-01-25] MEDS: Artificial Tears 15 ML DROPS 2 DROP EYE-BOTH (22:23)
[2022-01-25] MEDS: QUEtiapine Fumarate 200 MG TABLET PO (23:36)
[2022-01-25] MEDS: traZODone HCL 50 MG TABLET PO (23:39)
[2022-01-26 06:00] VITALS: BP 122/76; PULSE 77; RESP 16; TEMP 36.6; O2SAT 99
[2022-01-26] MEDS: Nicotine Polacrilex 2 MG GUM 4 MG BUCCAL ×8 (06:59→20:30)
[2022-01-26] MEDS: Ammonium Lactate 12 % Lotion 226 GM BOTTLE 1 APPL TOPICAL ×2 (08:27→21:08)
[2022-01-26] MEDS: carBAMazepine ER 200 MG TAB.ER.12H 800 MG PO ×2 (08:27→20:58)
[2022-01-26] MEDS: Artificial Tears 15 ML DROPS 2 DROP EYE-BOTH ×2 (08:27→21:08)
[2022-01-26] MEDS: Hydrocortisone 1 % Ointment 28.35 GM TUBE 1 APPL TOPICAL ×2 (08:27→21:08)
[2022-01-26] MEDS: Fluticasone/Vilanterol 100/25 BLST.W.DEV 1 PUFF INHALE (08:27)
[2022-01-26] MEDS: Famotidine 20 MG TABLET PO ×2 (08:28→21:04)
[2022-01-26] MEDS: Sennosides/Docusate Sodium TABLET 1 TAB PO ×2 (08:28→20:57)
[2022-01-26] MEDS: Vitamin E (Dl,Tocopheryl Acet) 180 MG (400 UNIT) CAPSULE PO ×2 (08:28→21:01)
[2022-01-26] MEDS: Perphenazine 8 MG TABLET 16 MG PO ×3 (08:28→20:57)
[2022-01-26] MEDS: diphenhydrAMINE HCL 25 MG CAPSULE 50 MG PO ×3 (08:28→21:00)
[2022-01-26] MEDS: clonazePAM 1 MG TABLET PO ×3 (08:29→21:01)
[2022-01-26] MEDS: Furosemide 40 MG TABLET PO (08:29)
[2022-01-26] MEDS: Ibuprofen 600 MG TABLET PO (08:29)
[2022-01-26] MEDS: QUEtiapine Fumarate 200 MG TABLET PO (08:29)
[2022-01-26] MEDS: Ascorbic Acid 250 MG TABLET PO (08:29)
[2022-01-26] MEDS: Simethicone 80 MG TAB.CHEW PO (12:20)
--- NOTE | 2022-01-26 12:33 | P.PNPSI_ITS ---
Subjective Subjective Date of Service: 01/26/22 Reason For Visit: psychosis Subjective Notes: Conditional Voluntary Interim History: Pt calm and cooperative. He reports less itchiness, using cortisone cream and benadryl. His speech is somewhat tangential and at times loose association but much more coherent. He denies SI/HI. He is sleeping through the night, some residual paranoia but no behavioral concerns. Medication Compliance: Yes Review of Systems Review of Systems Lower extremity edema Yes all other systems are reviewed and are negative and Unobtainable due to mental status Mental Status Exam Mental Status Exam Narrative: dressed in street clothes.? behavior is cooperative; adequate hygiene;? affect normo-intense, non-labile;? Speech incr rate, nml amount, nml loudness.? nml prosody, decr latency; thought process tangential and loose. no delusions explicitly expressed.? no SI/HI/AVH expressed.? Patients insight and judgment are impaired. Diagnostics Vital Signs (24Hr): Vital Signs - 24 hr 01/26/22 20:51 01/27/22 08:13 Temperature 97.2 F 97.1 F Pulse Rate 74 78 Respiratory Rate 18 Blood Pressure 140/82 H 144/81 H Pulse Oximetry 99 98 Oxygen Delivery Method Room Air Room Air BMI result Body Mass Index 30.7 Labs Results: 01/24/22 08:44 12/29/21 08:55 Imaging Radiology Impressions: ITS Impressions Venous Duplex 12/19/21 20:16 IMPRESSION: No DVT demonstrated in the bilateral lower extremity. Medications Medications Current Medications Acetaminophen (Acetaminophen 325 Mg Tablet) 650 mg PO Q6H PRN PRN Reason: Headache/Pain Mild Scale (1-3) Last Admin: 12/30/21 18:04 Dose: 650 mg Al Hydroxide/Mg Hydroxide (Magnesium Hydrox/Alum Hydrox 30 Ml Oral.Susp) 30 ml PO Q6H PRN PRN Reason: Heartburn/Nausea Last Admin: 01/21/22 23:03 Dose: 30 ml Albuterol Sulfate (Albuterol Sulfate 90 Mcg 8 Gm Inhaler) 2 puff INHALE Q4H PRN PRN Reason: shortness of breath or wheezing Last Admin: 01/19/22 22:39 Dose: 2 puff Artificial Tears (Artificial Tears 15 Ml Drops) 2 drop EYE-BOTH Q4H PRN PRN Reason: Dry Eyes Last Admin: 01/26/22 21:08 Dose: 2 drop Ascorbic Acid (Ascorbic Acid 250 Mg Tablet) 250 mg PO DAILY DAVY Last Admin: 01/27/22 08:14 Dose: 250 mg Benzocaine (Throat Lozenge, Medicated Lozenge) 1 lozenge MUCOUS MEM Q1H PRN PRN Reason: Sore Throat Last Admin: 12/27/21 06:54 Dose: 1 lozenge Bisacodyl (Bisacodyl 10 Mg Supp.Rect) 10 mg CA BEDTIME PRN PRN Reason: Constipation Last Admin: 12/06/21 21:14 Dose: 10 mg Carbamazepine (Carbamazepine Er 200 Mg Tab.Er.12h) 800 mg PO BEDTIME DAVY Last Admin: 01/26/22 20:58 Dose: 800 mg Carbamazepine (Carbamazepine Er 200 Mg Tab.Er.12h) 800 mg PO DAILY DAVY Last Admin: 01/27/22 08:14 Dose: 800 mg Clozapine (Clozapine 100 Mg Tablet) 100 mg PO BEDTIME DAVY Last Admin: 01/26/22 21:04 Dose: 100 mg Diphenhydramine HCl (Diphenhydramine Hcl 25 Mg Capsule) 50 mg PO Q6H PRN PRN Reason: Itching Last Admin: 01/26/22 21:00 Dose: 50 mg Famotidine (Famotidine 20 Mg Tablet) 20 mg PO BID DAVY Last Admin: 01/27/22 08:15 Dose: 20 mg Fluticasone/Vilanterol (Fluticasone/Vilanterol 100/25 Blst.W.Dev) 1 puff INHALE DAILY DAVY Last Admin: 01/26/22 08:27 Dose: 1 puff Furosemide (Furosemide 40 Mg Tablet) 40 mg PO DAILY DAVY; Protocol Last Admin: 01/27/22 08:14 Dose: 40 mg Guaifenesin (Guaifenesin La 600 Mg Tab.Er.12h) 600 mg PO BID PRN PRN Reason: thick secretions Last Admin: 01/03/22 23:25 Dose: 600 mg Hydrocortisone (Hydrocortisone 1 % Ointment 28.35 Gm Tube) 1 appl TOPICAL BID DAVY; Protocol Last Admin: 01/26/22 21:08 Dose: 1 appl Hydroxyzine HCl (Hydroxyzine Hcl 50 Mg Tablet) 50 mg PO Q6H PRN PRN Reason: Anxiety Last Admin: 01/22/22 16:22 Dose: 50 mg Ibuprofen (Ibuprofen 600 Mg Tablet) 600 mg PO Q6H PRN PRN Reason: aches and pains Last Admin: 01/26/22 08:29 Dose: 600 mg Lactic Acid (Ammonium Lactate 12 % Lotion 226 Gm Bottle) 1 appl TOPICAL BID DAVY; Protocol Last Admin: 01/26/22 21:08 Dose: 1 appl Lidocaine/Diphenhydr/Alum/Mg/Simeth (Mag&Al/Sim/Diphenhyd/Lidocaine 10 Ml Oral.Susp) 10 ml PO Q4H PRN; Protocol PRN Reason: oral mucous membrane ulcer jeremiah Last Admin: 12/20/21 02:20 Dose: 10 ml Magnesium Hydroxide (Milk Of Magnesia 30 Ml Oral.Susp) 30 ml PO DAILY PRN PRN Reason: Constipation Last Admin: 01/17/22 17:31 Dose: 30 ml Nicotine Polacrilex (Nicotine Polacrilex 2 Mg Gum) 4 mg BUCCAL Q1H PRN PRN Reason: Nicotine Cravings Last Admin: 01/27/22 06:40 Dose: 4 mg Olanzapine (Olanzapine Odt 10 Mg Tab.Rapdis) 40 mg TRANSLINGU BEDTIME DAVY Last Admin: 01/26/22 21:02 Dose: 40 mg Perphenazine (Perphenazine 8 Mg Tablet) 16 mg PO TID DAVY Last Admin: 01/27/22 08:14 Dose: 16 mg Prazosin HCl (Prazosin Hcl 1 Mg Capsule) 2 mg PO BEDTIME DAVY; Protocol Last Admin: 01/26/22 20:57 Dose: 2 mg Quetiapine Fumarate (Quetiapine Fumarate 200 Mg Tablet) 200 mg PO Q2H PRN PRN Reason: insomnia/agitation Last Admin: 01/26/22 08:29 Dose: 200 mg Senna/Docusate Sodium (Sennosides/Docusate Sodium Tablet) 1 tab PO BID DAVY Last Admin: 01/27/22 08:14 Dose: 1 tab Simethicone (Simethicone 80 Mg Tab.Chew) 80 mg PO QIDWMHS PRN PRN Reason: flatulence Last Admin: 01/26/22 12:20 Dose: 80 mg Tamsulosin HCl (Tamsulosin Hcl 0.4 Mg Capsule) 0.4 mg PO BEDTIME DAVY Last Admin: 01/26/22 21:01 Dose: 0.4 mg Trazodone HCl (Trazodone Hcl 50 Mg Tablet) 150 mg PO BEDTIME DAVY Last Admin: 01/26/22 21:04 Dose: 150 mg Trazodone HCl (Trazodone Hcl 50 Mg Tablet) 50 mg PO BEDTIME PRN PRN Reason: Insomnia Last Admin: 01/25/22 23:39 Dose: 50 mg Vitamin E (Vitamin E (Dl,Tocopheryl Acet) 180 Mg (400 Unit) Capsule) 180 mg PO BID DAVY Last Admin: 01/27/22 08:14 Dose: 180 mg Allergies Allergies Allergy/AdvReac Type Severity Reaction Status Date / Time divalproex sodium Allergy Severe PANCREATITI Verified 11/24/21 14:34 [From DEPAKOTE] S haloperidol [From Haldol] Allergy Intermediate DYSTONIC Verified 11/24/21 14:34 REACTION Assessment & Plan Assessment & Plan (1) Schizoaffective disorder: Status: Acute Code(s): F25.9 - Schizoaffective disorder, unspecified (2) Cellulitis: Status: Acute Code(s): L03.90 - Cellulitis, unspecified Assessment and Plan: 51yo M with COPD, HLD, obesity, BPH, ex-smoker, bipolar-type schizoaffective disorder admitted to [facility]. Developed infection of R foot yesterday as well as symptomatic Covid-19 infection without hypoxia. # nonpurulent cellulitis - doxycycline x7d. no need for blood culture. monitor clinically for improv ement. (3) COVID-19: Status: Acute Code(s): U07.1 - COVID-19 Assessment and Plan: 51yo M with COPD, HLD, obesity, BPH, ex-smoker, bipolar-type schizoaffective disorder admitted to [facility]. Developed infection of R foot yesterday as well as symptomatic Covid-19 infection without hypoxia. # Covid-19 infection - not hypoxic; no steroids indicated. Paxlovid contraindicated by use of carbamezapine. can give 3 days of IV remdesivir as alternative. Monitor SaO2 qshift. beginning 12/20/21, isolation x5d then mask-wearing x5d Plan 12/03: continue home meds for now. CV rejected as pt unable to appreciate the circumstances of his admission. will need commitment and benedicto's order. T/C restarting clozaril and lithium, on which pt did well for many years, reportedly. tegretol increased from 400 BID to 600 BID at admission. 12/04: klonopin 0.5/0.5/ reinstated 12/04 (outpt provider had started it 11/25 at 1 mg TID). magic mouthwash started for oral ulcers. 12/05: slept well last night, still pressured and disorganized.? continue current mgmt. 12/08: 12b up, applied for commitment and meds.? making sexually inappropriate comments/suggestions to staff, threatening violence and toward male peer. 12/09: same presentation as yesterday.? started lithium 450 mg BID today. 12/10: no change in presentation, compliant with lithium. 12/11: DC prazosin to see if B/L pedal edema decreases.? DC pravachol as pt is refusing it.? order lac-hydrin for plantar fissure.? otherwise continue previous mgmt.? perhaps slight decrease in pressure and disorganization. 12/12: pedal edema no worse, perhaps better.? no GI side effects from lithium.? fissure looks improved with cream.? check lithium, tegretol, associated labs on wednesday (ordered).? titrate lithium as indicated. 12/13 pt manic, disorganized, intrusive, blaming, threatening (told rewriter someone would come over and break his neck) -consider switching to Zyprexa from seroquel 12/14 her is manic, intrusive irritable, grandiose [place] level subtherapeutic; however patient is very anxious about this medication causing side effects and at this time rewriter thinks it might be better to leave it is current dose since patient continues to take it and trying to increase it may very well cause him to refuse it altogether; he is also on Tegretol.? Perhaps switching antipsychotics to Zyprexa is warranted.? Patient says he has never taken Zyprexa before.? Patient typically knows his medication history however usually when someone gets on clozapine it is because most other medications have not worked.? [place] has just reached at steady state so will hold off making medication adjustments right now to see if there can be any further benefit observed from currently lithium dose and medication regimen. 12/15 no change; clonazepam at started off and was not restarted.? Patient did take p.o. laxatives and had a bowel movement says he feels better. 12/16:? increase tegretol from 600 BID to 600/800 tonight, as level around 7.? lithium sub-therapeutic but pt resistant to increase, will see how much better he can get on higher tegretol dosing.? T/C switching anti-psychotic to zyprexa, as pt has done well on clozaril in the past.? TEDs obtained for pedal edema. 12/17: no change in mgmt.? presentation not substantially changed.? some agitation today. 12/18: presentation essentially unchanged.? no agitation today, sleeping late morning. 12/19: Assessed for pedal edema, spoke with hospitalist, BNP, BMP wnl, venous doppler wnl. Per hospitalist, continue with TEDs, may consider low dose lasix. 12/20: stable presentation.? continue current mgmt.? check tegretol level about a week after dose increase.? trending more calm than earlier in his stay but remains very psychotic.? T/C trial of olanzapine. 12/21:? taper and DC lithium and it appears to be having unsustainable physical side effects (B/L LE edema, now possibly with cellulitis).? also tested COVID POS today, satting mid 902 on RA.? hospitalist consult placed for eval of COVID severity and R/O cellulitis.? T/C olanzapine trial once lithium has been DCed. 12/22: stable, appears medically better than yesterday. continue lithium taper, to 150 BID tonight and tomorrow morning. start ibuprofen for better pain control with COVID. continue antibiotic and antiviral. 12/24 continue current tx. O2 sat >93, no s/s of respiratory distress. afebrile. 12/25: course of remdesivir complete, doxy ongoing. rash has not spread, likely related to edema and dependent limbs. less purpuric and more pinpoint red with bruising. edema improved. c/o productive cough, expectorant Rx'ed. otherwise continue current mgmt. per CDC guidelines, persons with moderate COVID (which includes having oxygen saturation less than 94%) should isolate for 10 days. 12/26: stable, in quarantine day #6 of 10. continue current mgmt. check labs on wednesday morning. 12/27: Continue current regimen and plans. Continue quarantine. 12/28: Continue current plans and regimen 12/29: increasingly disorganized and hyperverbal since DC of lithium. B/L pedal edema dose seem to be improving. day #9 of quarantine. tegretol level 8, other labs unremarkable aside from anemia. 12/30: obsessively scrubbing floor overnight, up all NOC. sleeping during day. more disorganized, hyperverbal. DC seroquel and start olanzapine 30 mg QHS. seroquel 200 mg PRNs for insomnia. 12/31: c/o persisting edema. perhaps lithium is not the largest offender; the only other change has been increasing tegretol dosing (edema identified as a side effect only in post-marketing, frequency not provided by [facility]). lasix 20 mg one time tomorrow morning. otherwise continue current mgmt. slept well last night with zyprexa at HS. 01/01: slept 3 hours overnight. give lasix 40 mg daily x 3 days as 20 mg dose this morning was not effective. pedal edema remains below the ankle. continue current mgmt otherwise. 01/02: continues to have only several hours of sleep at night. reports good diuresis on lasix 40. continue to monitor pedal edema and efficacy of olanzapine + tegretol (and perphenazine) regimen. 01/03 continue current plan. 01/04 continue tx. 01/05: no change to Tx plan. 01/06: increase zyprexa to 40 mg at HS, restart lasix 20 mg daily for pedal edema. trending more organized and less pressured, but by no means well. 01/07: continues to appear less pressured and more organized. paranoia persists. 01/08: more disorganized and pressured today. met with new RENEE. [facility] mtg next wednesday. lasix increased to 40 mg to combat edema. 01/09: sleeping day shift. reportedly slept 5 hours last night. no change in presentation otherwise. continue current mgmt. 01/10/Continue treatment plan including HOLD on scheduled seroquel 01/11 Contnue current treatment plan 01/12: continue current mgmt. more calm and organized today than last week. mtg with sister tuesday 01/16. 01/13: continue current mgmt. continues more organized and calm. pursuing GINNA. 01/14: no change in mgmt. continues more linear, logical, topical. awaiting OT testing results. mtg with sister wednesday. 01/15: stable, no complaints or requests. scored 4.6 on OT testing, meaning he may live on his own with support at the level of check-ins weekly. mtg with sister tomorrow. 01/16: mtg with sister, OT, SW, . pt reactive, labile, disorganized, bizarre in the face of any discussion of his ability or lack thereof to live independent ly. at sister's urging, pt agreed to restart clozaril at 25 mg daily. 01/17: took clozapine 25 last night. increase dose again tomorrow. clearly agitated at the idea of being back on clozapine, quite hyper-aroused during interview with MD today. 01/18: increase clozapine to 50 mg QHS as of tonight. pt reports subjective improvement since restarting clozapine, no such improvement observed by clinical staff. 01/19: continue current mgmt. increase clozapine to 75 mg tomorrow. less labile and paranoid today. 01/20: presentation as per yesterday. denies side effects from medication. increase clozapine to 75 mg as of this evening. 01/21 increase clozaril to 100mg po qhs. continue other medications. 01/22 continue current medications. add benadryl for itchiness. 01/23 continue tx. add cortisone lotion, will check cbcy, if continues to worsen, will ask hospitalist consult. 01/24: No med changes, skin excoriation areas are not infected, using bacitracin 01/25: no med changes 01/26 continue tx. I spent minutes with the patient and/or on the patient floor today, greater than?50% of which was spent counseling/coordinating care. Reason for contiued inpatient stay Substantial Risk for: inability to function
[2022-01-26 20:51] VITALS: BP 140/82; PULSE 74; TEMP 36.2; O2SAT 99
[2022-01-26] MEDS: Prazosin HCL 1 MG CAPSULE 2 MG PO (20:57)
[2022-01-26] MEDS: Tamsulosin HCL 0.4 MG CAPSULE PO (21:01)
[2022-01-26] MEDS: OLANZapine ODT 10 MG TAB.RAPDIS 40 MG TRANSLINGU (21:02)
[2022-01-26] MEDS: traZODone HCL 50 MG TABLET 150 MG PO (21:04)
[2022-01-26] MEDS: cloZAPine 100 MG TABLET PO (21:04)
[2022-01-27] MEDS: Nicotine Polacrilex 2 MG GUM 4 MG BUCCAL ×10 (06:40→19:49)
[2022-01-27 08:13] VITALS: BP 144/81; PULSE 78; RESP 18; TEMP 36.2; O2SAT 98
[2022-01-27] MEDS: Sennosides/Docusate Sodium TABLET 1 TAB PO ×2 (08:14→20:27)
[2022-01-27] MEDS: carBAMazepine ER 200 MG TAB.ER.12H 800 MG PO ×2 (08:14→20:26)
[2022-01-27] MEDS: Ascorbic Acid 250 MG TABLET PO (08:14)
[2022-01-27] MEDS: Vitamin E (Dl,Tocopheryl Acet) 180 MG (400 UNIT) CAPSULE PO ×2 (08:14→20:27)
[2022-01-27] MEDS: Perphenazine 8 MG TABLET 16 MG PO ×3 (08:14→20:26)
[2022-01-27] MEDS: Furosemide 40 MG TABLET PO (08:14)
[2022-01-27] MEDS: Famotidine 20 MG TABLET PO ×2 (08:15→20:26)
[2022-01-27] MEDS: Fluticasone/Vilanterol 100/25 BLST.W.DEV 1 PUFF INHALE (10:59)
[2022-01-27] MEDS: Artificial Tears 15 ML DROPS 2 DROP EYE-BOTH (11:00)
[2022-01-27] MEDS: diphenhydrAMINE HCL 25 MG CAPSULE 50 MG PO ×2 (11:01→20:25)
[2022-01-27] MEDS: clonazePAM 1 MG TABLET PO ×3 (12:19→20:27)
--- NOTE | 2022-01-27 13:28 | HO.PSYCHPN ---
Subjective Subjective Date of Service: 01/27/22 Reason For Visit: psychosis Subjective Notes: Conditional Voluntary Interim History: Pt reports doing well. He is looking forward to be discharged tomorrow. Speech more organized. He denies SI/HI. No VH/AH. Pt is sleeping throught the night. No behavioral concerns. Medication Compliance: Yes Side effects from medications: No Review of Systems Review of Systems Lower extremity edema Yes all other systems are reviewed and are negative and Unobtainable due to mental status Mental Status Exam Mental Status Exam Narrative: dressed in street clothes.? behavior is cooperative; adequate hygiene;? affect normo-intense, non-labile;? Speech incr rate, nml amount, nml loudness.? nml prosody, decr latency; thought process tangential and loose. no delusions explicitly expressed.? no SI/HI/AVH expressed.? Patients insight and judgment are impaired. Diagnostics Vital Signs (24Hr): Vital Signs - 24 hr 01/27/22 20:32 01/28/22 08:00 Temperature 97.6 F 97.2 F Pulse Rate 81 76 Respiratory Rate 18 20 Blood Pressure 140/72 H 140/75 H Pulse Oximetry 97 100 Oxygen Delivery Method Room Air Room Air BMI result Body Mass Index 30.7 Labs Results: 01/24/22 08:44 12/29/21 08:55 Imaging Radiology Impressions: ITS Impressions Venous Duplex 12/19/21 20:16 IMPRESSION: No DVT demonstrated in the bilateral lower extremity. Medications Medications Current Medications Acetaminophen (Acetaminophen 325 Mg Tablet) 650 mg PO Q6H PRN PRN Reason: Headache/Pain Mild Scale (1-3) Last Admin: 12/30/21 18:04 Dose: 650 mg Al Hydroxide/Mg Hydroxide (Magnesium Hydrox/Alum Hydrox 30 Ml Oral.Susp) 30 ml PO Q6H PRN PRN Reason: Heartburn/Nausea Last Admin: 01/21/22 23:03 Dose: 30 ml Albuterol Sulfate (Albuterol Sulfate 90 Mcg 8 Gm Inhaler) 2 puff INHALE Q4H PRN PRN Reason: shortness of breath or wheezing Last Admin: 01/19/22 22:39 Dose: 2 puff Artificial Tears (Artificial Tears 15 Ml Drops) 2 drop EYE-BOTH Q4H PRN PRN Reason: Dry Eyes Last Admin: 01/27/22 11:00 Dose: 2 drop Ascorbic Acid (Ascorbic Acid 250 Mg Tablet) 250 mg PO DAILY DAVY Last Admin: 01/28/22 08:03 Dose: 250 mg Benzocaine (Throat Lozenge, Medicated Lozenge) 1 lozenge MUCOUS MEM Q1H PRN PRN Reason: Sore Throat Last Admin: 12/27/21 06:54 Dose: 1 lozenge Bisacodyl (Bisacodyl 10 Mg Supp.Rect) 10 mg NM BEDTIME PRN PRN Reason: Constipation Last Admin: 12/06/21 21:14 Dose: 10 mg Carbamazepine (Carbamazepine Er 200 Mg Tab.Er.12h) 800 mg PO BEDTIME DAVY Last Admin: 01/27/22 20:26 Dose: 800 mg Carbamazepine (Carbamazepine Er 200 Mg Tab.Er.12h) 800 mg PO DAILY DAVY Last Admin: 01/28/22 08:02 Dose: 800 mg Clonazepam (Clonazepam 1 Mg Tablet) 1 mg PO TID DAVY Last Admin: 01/28/22 08:02 Dose: 1 mg Clozapine (Clozapine 100 Mg Tablet) 100 mg PO BEDTIME DAVY Last Admin: 01/27/22 20:27 Dose: 100 mg Diphenhydramine HCl (Diphenhydramine Hcl 25 Mg Capsule) 50 mg PO Q6H PRN PRN Reason: Itching Last Admin: 01/28/22 08:05 Dose: 50 mg Famotidine (Famotidine 20 Mg Tablet) 20 mg PO BID DAVY Last Admin: 01/28/22 08:02 Dose: 20 mg Fluticasone/Vilanterol (Fluticasone/Vilanterol 100/25 Blst.W.Dev) 1 puff INHALE DAILY DAVY Last Admin: 01/28/22 08:03 Dose: 1 puff Furosemide (Furosemide 40 Mg Tablet) 40 mg PO DAILY DAVY; Protocol Last Admin: 01/28/22 08:03 Dose: 40 mg Guaifenesin (Guaifenesin La 600 Mg Tab.Er.12h) 600 mg PO BID PRN PRN Reason: thick secretions Last Admin: 01/03/22 23:25 Dose: 600 mg Hydrocortisone (Hydrocortisone 1 % Ointment 28.35 Gm Tube) 1 appl TOPICAL BID DAVY; Protocol Last Admin: 01/27/22 20:24 Dose: Not Given Hydroxyzine HCl (Hydroxyzine Hcl 50 Mg Tablet) 50 mg PO Q6H PRN PRN Reason: Anxiety Last Admin: 01/22/22 16:22 Dose: 50 mg Ibuprofen (Ibuprofen 600 Mg Tablet) 600 mg PO Q6H PRN PRN Reason: aches and pains Last Admin: 01/26/22 08:29 Dose: 600 mg Lactic Acid (Ammonium Lactate 12 % Lotion 226 Gm Bottle) 1 appl TOPICAL BID DAVY; Protocol Last Admin: 01/27/22 20:24 Dose: Not Given Lidocaine/Diphenhydr/Alum/Mg/Simeth (Mag&Al/Sim/Diphenhyd/Lidocaine 10 Ml Oral.Susp) 10 ml PO Q4H PRN; Protocol PRN Reason: oral mucous membrane ulcer jeremiah Last Admin: 12/20/21 02:20 Dose: 10 ml Magnesium Hydroxide (Milk Of Magnesia 30 Ml Oral.Susp) 30 ml PO DAILY PRN PRN Reason: Constipation Last Admin: 01/17/22 17:31 Dose: 30 ml Nicotine Polacrilex (Nicotine Polacrilex 2 Mg Gum) 4 mg BUCCAL Q1H PRN PRN Reason: Nicotine Cravings Last Admin: 01/28/22 08:05 Dose: 4 mg Olanzapine (Olanzapine Odt 10 Mg Tab.Rapdis) 40 mg TRANSLINGU BEDTIME DAVY Last Admin: 01/27/22 20:26 Dose: 40 mg Perphenazine (Perphenazine 8 Mg Tablet) 16 mg PO TID DAVY Last Admin: 01/28/22 08:03 Dose: 16 mg Prazosin HCl (Prazosin Hcl 1 Mg Capsule) 2 mg PO BEDTIME DAVY; Protocol Last Admin: 01/27/22 20:27 Dose: 2 mg Quetiapine Fumarate (Quetiapine Fumarate 200 Mg Tablet) 200 mg PO Q2H PRN PRN Reason: insomnia/agitation Last Admin: 01/27/22 20:25 Dose: 200 mg Senna/Docusate Sodium (Sennosides/Docusate Sodium Tablet) 1 tab PO BID DAVY Last Admin: 01/28/22 08:05 Dose: 1 tab Simethicone (Simethicone 80 Mg Tab.Chew) 80 mg PO QIDWMHS PRN PRN Reason: flatulence Last Admin: 01/28/22 08:05 Dose: 80 mg Tamsulosin HCl (Tamsulosin Hcl 0.4 Mg Capsule) 0.4 mg PO BEDTIME DAVY Last Admin: 01/27/22 20:26 Dose: 0.4 mg Trazodone HCl (Trazodone Hcl 50 Mg Tablet) 150 mg PO BEDTIME DAVY Last Admin: 01/27/22 20:26 Dose: 150 mg Trazodone HCl (Trazodone Hcl 50 Mg Tablet) 50 mg PO BEDTIME PRN PRN Reason: Insomnia Last Admin: 01/25/22 23:39 Dose: 50 mg Vitamin E (Vitamin E (Dl,Tocopheryl Acet) 180 Mg (400 Unit) Capsule) 180 mg PO BID DAVY Last Admin: 01/28/22 08:03 Dose: 180 mg Allergies Allergies Allergy/AdvReac Type Severity Reaction Status Date / Time divalproex sodium Allergy Severe PANCREATITI Verified 11/24/21 14:34 [From DEPAKOTE] S haloperidol [From Haldol] Allergy Intermediate DYSTONIC Verified 11/24/21 14:34 REACTION Assessment & Plan Assessment & Plan (1) Schizoaffective disorder: Status: Acute Code(s): F25.9 - Schizoaffective disorder, unspecified (2) Cellulitis: Status: Acute Code(s): L03.90 - Cellulitis, unspecified Assessment and Plan: 51yo M with COPD, HLD, obesity, BPH, ex-smoker, bipolar-type schizoaffective disorder admitted to [facility]. Developed infection of R foot yesterday as well as symptomatic Covid-19 infection without hypoxia. # nonpurulent cellulitis - doxycycline x7d. no need for blood culture. monitor clinically for improvement. (3) COVID-19: Status: Acute Code(s): U07.1 - COVID-19 Assessment and Plan: 51yo M with COPD, HLD, obesity, BPH, ex-smoker, bipolar-type schizoaffective disorder admitted to [facility]. Developed infection of R foot yesterday as well as symptomatic Covid-19 infection without hypoxia. # Covid-19 infection - not hypoxic; no steroids indicated. Paxlovid contraindicated by use of carbamezapine. can give 3 days of IV remdesivir as alternative. Monitor SaO2 qshift. beginning 12/20/21, isolation x5d then mask-wearing x5d Plan 12/03: continue home meds for now. CV rejected as pt unable to appreciate the circumstances of his admission. will need commitment and benedicto's order. T/C restarting clozaril and lithium, on which pt did well for many years, reportedly. tegretol increased from 400 BID to 600 BID at admission. 12/04: klonopin 0.5/0.5/1 reinstated 12/04 (outpt provider had started it 11/25 at 1 mg TID). magic mouthwash started for oral ulcers. 12/05: slept well last night, still pressured and disorganized.? continue current mgmt. 12/08: 12b up, applied for commitment and meds.? making sexually inappropriate comments/suggestions to staff, threatening violence and toward male peer. 12/09: same presentation as yesterday.? started lithium 450 mg BID today. 12/10: no change in presentation, compliant with lithium. 12/11: DC prazosin to see if B/L pedal edema decreases.? DC pravachol as pt is refusing it.? order lac-hydrin for plantar fissure.? otherwise continue previous mgmt.? perhaps slight decrease in pressure and disorganization. 12/12: pedal edema no worse, perhaps better.? no GI side effects from lithium.? fissure looks improved with cream.? check lithium, tegretol, associated labs on wednesday (ordered).? titrate lithium as indicated. 12/13 pt manic, disorganized, intrusive, blaming, threatening (told underwriter solicitation director someone would come over and break his neck) -consider switching to Zyprexa from seroquel 12/14 her is manic, intrusive irritable, grandiose [place] level subtherapeutic; however patient is very anxious about this medication causing side effects and at this time underwriter solicitation director thinks it might be better to leave it is current dose since patient continues to take it and trying to increase it may very well cause him to refuse it altogether; he is also on Tegretol.? Perhaps switching antipsychotics to Zyprexa is warranted.? Patient says he has never taken Zyprexa before.? Patient typically knows his medication history however usually when someone gets on clozapine it is because most other medications have not worked.? [place] has just reached at steady state so will hold off making medication adjustments right now to see if there can be any further benefit observed from currently lithium dose and medication regimen. 12/15 no change; clonazepam at started off and was not restarted.? Patient did take p.o. laxatives and had a bowel movement says he feels better. 12/16:? increase tegretol from 600 BID to 600/800 tonight, as level around 7.? lithium sub-therapeutic but pt resistant to increase, will see how much better he can get on higher tegretol dosing.? T/C switching anti-psychotic to zyprexa, as pt has done well on clozaril in the past.? TEDs obtained for pedal edema. 12/17: no change in mgmt.? presentation not substantially changed.? some agitation today. 12/18: presentation essentially unchanged.? no agitation today, sleeping late morning. 12/19: Assessed for pedal edema, spoke with hospitalist, BNP, BMP wnl, venous doppler wnl. Per hospitalist, continue with TEDs, may consider low dose lasix. 12/20: stable presentation.? continue current mgmt.? check tegretol level about a week after dose increase.? trending more calm than earlier in his stay but remains very psychotic.? T/C trial of olanzapine. 12/21:? taper and DC lithium and it appears to be having unsustainable physical side effects (B/L LE edema, now possibly with cellulitis).? also tested COVID POS today, satting mid 902 on RA.? hospitalist consult placed for eval of COVID severity and R/O cellulitis.? T/C olanzapine trial once lithium has been DCed. 12/22: stable, appears medically better than yesterday. continue lithium taper, to 150 BID tonight and tomorrow morning. start ibuprofen for better pain control with COVID. continue antibiotic and antiviral. 12/24 continue current tx. O2 sat >93, no s/s of respiratory distress. afebrile. 12/25: course of remdesivir complete, doxy ongoing. rash has not spread, likely related to edema and dependent limbs. less purpuric and more pinpoint red with bruising. edema improved. c/o productive cough, expectorant Rx'ed. otherwise continue current mgmt. per CDC guidelines, persons with moderate COVID (which includes having oxygen saturation less than 94%) should isolate for 10 days. 12/26: stable, in quarantine day #6 of . continue current mgmt. check labs on wednesday morning. 12/27: Continue current regimen and plans. Continue quarantine. 12/28: Continue current plans and regimen 12/29: increasingly disorganized and hyperverbal since DC of lithium. B/L pedal edema dose seem to be improving. day #9 of quarantine. tegretol level 8, other labs unremarkable aside from anemia. 12/30: obsessively scrubbing floor overnight, up all NOC. sleeping during day. more disorganized, hyperverbal. DC seroquel and start olanzapine 30 mg QHS. seroquel 200 mg PRNs for insomnia. 12/31: c/o persisting edema. perhaps lithium is not the largest offender; the only other change has been increasing tegretol dosing (edema identified as a side effect only in post-marketing, frequency not provided by update). lasix 20 mg one time tomorrow morning. otherwise continue current mgmt. slept well last night with zyprexa at HS. 01/01: slept 3 hours overnight. give lasix 40 mg daily x 3 days as 20 mg dose this morning was not effective. pedal edema remains below the ankle. continue current mgmt otherwise. 01/02: continues to have only several hours of sleep at night. reports good diuresis on lasix 40. continue to monitor pedal edema and efficacy of olanzapine + tegretol (and perphenazine) regimen. 01/03 continue current plan. 01/04 continue tx. 01/05: no change to Tx plan. 01/06: increase zyprexa to 40 mg at HS, restart lasix 20 mg daily for pedal edema. trending more organized and less pressured, but by no means well. 01/07: continues to appear less pressured and more organized. paranoia persists. 01/08: more disorganized and pressured today. met with new RENEE. [facility] mtg next wednesday. lasix increased to 40 mg to combat edema. 01/09: sleeping day shift. reportedly slept 5 hours last night. no change in presentation otherwise. continue current mgmt. 01/10/Continue treatment plan including HOLD on scheduled seroquel 01/11 Contnue current treatment plan 01/12: continue current mgmt. more calm and organized today than last week. mtg with sister tuesday 01/16. 01/13: continue current mgmt. continues more organized and calm. pursuing GINNA. 01/14: no change in mgmt. continues more linear, logical, topical. awaiting OT testing results. mtg with sister wednesday. 01/15: stable, no complaints or requests. scored 4.6 on OT testing, meaning he may live on his own with support at the level of check-ins weekly. mtg with sister tomorrow. 01/16: mtg with sister, OT, SW, . pt reactive, labile, disorganized, bizarre in the face of any discussion of his ability or lack thereof to live independently. at sister's urging, pt agreed to restart clozaril at 25 mg daily. 01/17: took clozapine 25 last night. increase dose again tomorrow. clearly agitated at the idea of being back on clozapine, quite hyper-aroused during interview with MD today. 01/18: increase clozapine to 50 mg QHS as of tonight. pt reports subjective improvement since restarting clozapine, no such improvement observed by clinical staff. 01/19: continue current mgmt. increase clozapine to 75 mg tomorrow. less labile and paranoid today. 01/20: presentation as per yesterday. denies side effects from medication. increase clozapine to 75 mg as of this evening. 01/21 increase clozaril to 100mg po qhs. continue other medications. 01/22 continue current medications. add benadryl for itchiness. 01/23 continue tx. add cortisone lotion, will check cbcy, if continues to worsen, will ask hospitalist consult. 01/24: No med changes, skin excoriation areas are not infected, using bacitracin 01/25: no med changes 01/26 continue tx. 01/27 continue tx. dc tomorrow. I spent minutes with the patient and/or on the patient floor today, greater than?50% of which was spent counseling/coordinating care. Reason for contiued inpatient stay Substantial Risk for: stable for discharge
[2022-01-27] MEDS: QUEtiapine Fumarate 200 MG TABLET PO (20:25)
[2022-01-27] MEDS: traZODone HCL 50 MG TABLET 150 MG PO (20:26)
[2022-01-27] MEDS: Tamsulosin HCL 0.4 MG CAPSULE PO (20:26)
[2022-01-27] MEDS: OLANZapine ODT 10 MG TAB.RAPDIS 40 MG TRANSLINGU (20:26)
[2022-01-27] MEDS: cloZAPine 100 MG TABLET PO (20:27)
[2022-01-27] MEDS: Prazosin HCL 1 MG CAPSULE 2 MG PO (20:27)
[2022-01-27 20:32] VITALS: BP 140/72; PULSE 81; RESP 18; TEMP 36.4; O2SAT 97
[2022-01-28] MEDS: Nicotine Polacrilex 2 MG GUM 4 MG BUCCAL ×7 (04:11→12:45)
[2022-01-28 08:00] VITALS: BP 140/75; PULSE 76; RESP 20; TEMP 36.2; O2SAT 100
[2022-01-28] MEDS: clonazePAM 1 MG TABLET PO (08:02)
[2022-01-28] MEDS: Famotidine 20 MG TABLET PO (08:02)
[2022-01-28] MEDS: carBAMazepine ER 200 MG TAB.ER.12H 800 MG PO (08:02)
[2022-01-28] MEDS: Perphenazine 8 MG TABLET 16 MG PO (08:03)
[2022-01-28] MEDS: Ascorbic Acid 250 MG TABLET PO (08:03)
[2022-01-28] MEDS: Furosemide 40 MG TABLET PO (08:03)
[2022-01-28] MEDS: Vitamin E (Dl,Tocopheryl Acet) 180 MG (400 UNIT) CAPSULE PO (08:03)
[2022-01-28] MEDS: Fluticasone/Vilanterol 100/25 BLST.W.DEV 1 PUFF INHALE (08:03)
[2022-01-28] MEDS: Sennosides/Docusate Sodium TABLET 1 TAB PO (08:05)
[2022-01-28] MEDS: diphenhydrAMINE HCL 25 MG CAPSULE 50 MG PO (08:05)
[2022-01-28] MEDS: Simethicone 80 MG TAB.CHEW PO (08:05)
--- NOTE | 2022-01-28 11:19 | P.DS_ITS ---
DS: Providers Provider Date of Service: 01/28/22 Date of admission: 12/02/21 14:35 Primary care physician: Unknown Physician Consults: 12/21/21 14:51 Consult to Hospitalist Routine Consulting Provider: Hospitalist Reason For Exam: R/O cellulitis of RLE; COVID+ satting low 90s DS: Diagnosis Discharge Diagnosis (1) Schizoaffective disorder: Status: Acute (2) Cellulitis: Status: Acute (3) COVID-19: Status: Acute DS: Medications Discharge Medications Home Medications: Previous Rx's Medication Instructions Recorded fluticasone 250 mcg-salmeterol 50 1 inh inhalation BID 30 days #60 ea 11/17/21 mcg/dose blistr powdr for inhalation albuterol sulfate 90 mcg/actuation 2 puff inhalation Q4H PRN 01/27/22 aerosol inhaler (Ventolin HFA) shortness of breath or wheezing #6.7 grams ascorbic acid (vitamin C) 250 mg 250 mg PO DAILY #0 tabs 01/27/22 tablet carbamazepine 400 mg 800 mg PO BID #120 tabs 01/27/22 tablet,extended release,12 hr clonazepam 1 mg tablet 1 mg PO TID #90 tabs 01/27/22 clozapine 100 mg tablet 100 mg PO BEDTIME #30 tabs 01/27/22 diphenhydramine HCl 25 mg capsule 50 mg PO Q6H PRN Itching #30 caps 01/27/22 famotidine 20 mg tablet 20 mg PO BID #60 tabs 01/27/22 furosemide 40 mg tablet 40 mg PO DAILY #30 tabs 01/27/22 hydrocortisone 1 % topical ointment 1 appl topical BID #28.35 grams 01/27/22 ibuprofen 600 mg tablet 600 mg PO Q6H PRN aches and pains 01/27/22 #30 tabs lovastatin 40 mg tablet 40 mg PO DAILY 30 days #30 tabs 01/27/22 nicotine (polacrilex) 2 mg gum 4 mg buccal Q1H PRN Nicotine 01/27/22 Cravings #60 ea olanzapine 20 mg tablet 40 mg PO BEDTIME 30 days #60 tabs 01/27/22 perphenazine 8 mg tablet 16 mg PO TID #180 tabs 01/27/22 polyvinyl alcohol 1.4 % eye drops 2 drp ophthalmic (eye) Q4H PRN Dry 01/27/22 (Artificial Tears (polyvinyl Eyes #15 mL alcohol)) prazosin 2 mg capsule 2 mg PO BEDTIME #30 caps 01/27/22 sennosides 8.6 mg-docusate sodium 1 tab PO BID #60 tabs 01/27/22 50 mg tablet (Senna Plus) simethicone 80 mg chewable tablet 80 mg PO QIDWMHS PRN flatulence 01/27/22 (Gas Relief (simethicone)) #90 tabs tamsulosin 0.4 mg capsule 0.4 mg PO BEDTIME #30 caps 01/27/22 trazodone 150 mg tablet 150 mg PO BEDTIME #30 tabs 01/27/22 vitamin E (dl, acetate) 180 mg 180 mg PO BID #60 caps 01/27/22 (400 unit) capsule clonazepam 1 mg tablet 1 mg PO TID #0 tabs 01/28/22 Mental Status Exam Mental Status Exam Narrative: dressed in street clothes.? behavior is cooperative; adequate hygiene;? affect normo-intense, non-labile;? Speech nml rate, nml amount, nml loudness.? nml prosody, decr latency; thought process more linear and organized. no delusions explicitly expressed.? no SI/HI/AVH.? Patients insight and judgment are impaired. Data Data Completed and Pending Completed studies during hospitalization [Text1]: 01/23/22 01/24/22 08:11 08:44 WBC 5.9 RBC 4.46 L Hgb 13.7 L Hct 42.4 MCV 95.1 MCH 30.7 MCHC 32.3 RDW 13.1 Plt Count 203 MPV 10.5 Immature Gran % (Auto) 0.3 Neut % (Auto) 66.5 Lymph % (Auto) 20.9 [place] % (Auto) 8.7 Eos % (Auto) 3.1 Baso % (Auto) 0.5 Lymph # (Auto) 1.2 [place] # (Auto) 0.5 Eos # (Auto) 0.2 Baso # (Auto) 0.0 Abs Immat Gran (auto) 0.02 Absolute Neuts (auto) 3.5 3.9 Absolute Nucleated RBC 0.000 Nucleated RBC % (auto) 0.0 Imaging Diagnostic Imaging Impressions Venous Duplex 12/19/21 20:16 IMPRESSION: No DVT demonstrated in the bilateral lower extremity. DS: Summary Hospital Course Hospital Course: per 12/03 admission note: pt was BIBA to ED after having been found doing donuts in his vehicle outside [facility] [employer] [facility].? he was described in the crisis note as agitated, disorganized, delusional, and not redirectable. ? he reported he has a chip in his head, that he is a direct relative of the Ngo family and heir to the throne. ? per crisis eval, during the interview pt made several vague, aggressive, statements directed at political figures. on interview with MD, pt presented as disorganized, delusional (chip in head), pressured.? he was aware he was in a psychiatric facility, but he was not sure whether or not he has a mental illness.? he was very clear that he is not hear for treatment or help, but rather that he is here to help others.? he specifically mentioned trying to convince peers to take their medications.? he reports his mood is fine and denies SI/HI/AVH.? c/o side effects of clozaril (choking, constipation, thinking he was having sex with little kids with my toes ) and lithium (diarrhea). Past Psychiatric History: schizoaffective disorder, bipolar type Dx. Hx X area hospitalizations. Last was at 10/15/21 - 11/17/21, before that Prov in 2018. M5 in 2008. Cloz (1991), Li (2009), Perphenazine (2012). Sees Pietro Leos APRN. h/o physical aggression, agitated behaviors. no known h/o SA. has reported SIB of self-mutilation of his fingers, covered by bandaids, but it is unclear if this is delusional. Medical Evaluation Reviewed: Yes [facility] Medical History Anxiety COPD (chronic obstructive pulmonary disease) Difficulty sleeping Elevated cholesterol GERD (gastroesophageal reflux disease) Hx of pancreatitis Hyperlipidemia Obesity Schizoaffective disorder Smoker Surgical History? History of bilateral cataract extraction History of bunionectomy History of excision of mass Hx of colonoscopy Family History: None known Social History: single, no kids, never , on SSDI.? Completed H[facility]S B and r locally. Has 2 older and 2 younger sister. F is advocate for him. M involved too.? Lives in own apt but had much support from his father who is now (as of 09/2021). Substance History: reportedly occasionally uses alcohol Trauma History: None Precis: 12/03: continue home meds for now. CV rejected as pt unable to appreciate the circumstances of his admission. will need commitment and benedicto's order. T/C restarting clozaril and lithium, on which pt did well for many years, reportedly. tegretol increased from 400 BID to 600 BID at admission. 12/04: klonopin 0.5/0.5/1 reinstated 12/04 (outpt provider had started it 11/25 at 1 mg TID). magic mouthwash started for oral ulcers. 12/05: slept well last night, still pressured and disorganized.? continue current mgmt. 12/08: 12b up, applied for commitment and meds.? making sexually inappropriate comments/suggestions to staff, threatening violence and toward male peer. 12/09: same presentation as yesterday.? started lithium 450 mg BID today. 12/10: no change in presentation, compliant with lithium. 12/11: DC prazosin to see if B/L pedal edema decreases.? DC pravachol as pt is refusing it.? order lac-hydrin for plantar fissure.? otherwise continue previous mgmt.? perhaps slight decrease in pressure and disorganization. 12/12: pedal edema no worse, perhaps better.? no GI side effects from lithium.? fissure looks improved with cream.? check lithium, tegretol, associated labs on wednesday (ordered).? titrate lithium as indicated. 12/13: pt manic, disorganized, intrusive, blaming, threatening (told chief writer someone would come over and break his neck) -consider switching to Zyprexa from seroquel 12/14: he is manic, intrusive irritable, grandiose [place] level subtherapeutic; however patient is very anxious about this medication causing side effects and at this time chief writer thinks it might be better to leave it is current dose since patient continues to take it and trying to increase it may very well cause him to refuse it altogether; he is also on Tegretol.? Perhaps switching antipsychotics to Zyprexa is warranted.? Patient says he has never taken Zyprexa before.? Patient typically knows his medication history however usually when someone gets on clozapine it is because most other medications have not worked.? [place] has just reached at steady state so will hold off making medication adjustments right now to see if there can be any further benefit observed from currently lithium dose and medication regimen. 12/15 no change; clonazepam at started off and was not restarted.? Patient did take p.o. laxatives and had a bowel movement says he feels better. 12/16:? increase tegretol from 600 BID to 600/800 tonight, as level around 7.? lithium sub-therapeutic but pt resistant to increase, will see how much better he can get on higher tegretol dosing.? T/C switching anti-psychotic to zyprexa, as pt has done well on clozaril in the past.? TEDs obtained for pedal edema. 12/17: no change in mgmt.? presentation not substantially changed.? some agitation today. 12/18: presentation essentially unchanged.? no agitation today, sleeping late morning. 12/19: Assessed for pedal edema, spoke with hospitalist, BNP, BMP wnl, venous doppler wnl. Per hospitalist, continue with TEDs, may consider low dose lasix. 12/20: stable presentation.? continue current mgmt.? check tegretol level about a week after dose increase.? trending more calm than earlier in his stay but remains very psychotic.? T/C trial of olanzapine. 12/21:? taper and DC lithium and it appears to be having unsustainable physical side effects (B/L LE edema, now possibly with cellulitis).? also tested COVID P OS today, satting mid 90s on RA.? hospitalist consult placed for eval of COVID severity and R/O cellulitis.? T/C olanzapine trial once lithium has been DCed. 12/22: stable, appears medically better than yesterday.? continue lithium taper, to 150 BID tonight and tomorrow morning.? start ibuprofen for better pain control with COVID.? continue antibiotic and antiviral. 12/24 continue current tx. O2 sat >93, no s/s of respiratory distress. afebrile. 12/25: course of remdesivir complete, doxy ongoing.? rash has not spread, likely related to edema and dependent limbs.? less purpuric and more pinpoint red with bruising.? edema improved.? c/o productive cough, expectorant Rx'ed.? otherwise continue current mgmt.? per CDC guidelines, persons with moderate COVID (which includes having oxygen saturation less than 94%) should isolate for 10 days. 12/26: stable, in quarantine day #6 of .? continue current mgmt.? check labs on wednesday morning. 12/27: Continue current regimen and plans.? Continue quarantine. 12/28: Continue current plans and regimen 12/29: increasingly disorganized and hyperverbal since DC of lithium.? B/L pedal edema dose seem to be improving.? day #9 of quarantine.? tegretol level 8, other labs unremarkable aside from anemia. 12/30: obsessively scrubbing floor overnight, up all NOC.? sleeping during day.? more disorganized, hyperverbal.? DC seroquel and start olanzapine 30 mg QHS.? seroquel 200 mg PRNs for insomnia. 12/31: c/o persisting edema.? perhaps lithium is not the largest offender; the only other change has been increasing tegretol dosing (edema identified as a side effect only in post-marketing, frequency not provided by [facility]).? lasix 20 mg one time tomorrow morning.? otherwise continue current mgmt.? slept well last night with zyprexa at HS. 01/01: slept 3 hours overnight.? give lasix 40 mg daily x 3 days as 20 mg dose this morning was not effective.? pedal edema remains below the ankle.? continue current mgmt otherwise. 01/02: continues to have only several hours of sleep at night.? reports good diuresis on lasix 40.? continue to monitor pedal edema and efficacy of olanzapine + tegretol (and perphenazine) regimen. 01/03 continue current plan. 01/04 continue tx. 01/05: no change to Tx plan. 01/06: increase zyprexa to 40 mg at HS, restart lasix 20 mg daily for pedal edema.? trending more organized and less pressured, but by no means well. 01/07: continues to appear less pressured and more organized.? paranoia persists. 01/08: more disorganized and pressured today.? met with new SW.? DM mtg next wednesday.? lasix increased to 40 mg to combat edema. 01/09: sleeping day shift.? reportedly slept 5 hours last night.? no change in presentation otherwise.? continue current mgmt. 01/10/Continue treatment plan including HOLD? on scheduled? seroquel 01/11 Contnue current treatment plan 01/12: continue current mgmt.? more calm and organized today than last week.? mtg with sister tuesday 01/16. 01/13: continue current mgmt.? continues more organized and calm.? pursuing GINNA. 01/14: no change in mgmt.? continues more linear, logical, topical.? awaiting OT testing results.? mtg with sister wednesday. 01/15: stable, no complaints or requests.? scored 4.6 on OT testing, meaning he may live on his own with support at the level of check-ins weekly.? mtg with sister tomorrow. 01/16: mtg with sister, OT, RENEE, .? pt reactive, labile, disorganized, bizarre in the face of any discussion of his ability or lack thereof to live independently.? at sister's urging, pt agreed to restart clozaril at 25 mg daily. 01/17: took clozapine 25 last night.? increase dose again tomorrow.? clearly agitated at the idea of being back on clozapine, quite hyper-aroused during interview with MD today. 01/18: increase clozapine to 50 mg QHS as of tonight.? pt reports subjective improvement since restarting clozapine, no such improvement observed by clinical staff. 01/19: continue current mgmt.? increase clozapine to 75 mg tomorrow.? less labile and paranoid today. 01/20: presentation as per yesterday.? denies side effects from medication.? increase clozapine to 75 mg as of this evening. 01/21 increase clozaril to 100mg po qhs. continue other medications. 01/22 continue current medications. add benadryl for itchiness. 01/23 continue tx. add cortisone lotion, will check cbcy, if continues to worsen, will ask hospitalist consult. 01/24: No med changes, skin excoriation areas are not infected, using bacitracin 01/25: no med changes 01/26 continue tx. 01/27 continue tx. dc tomorrow. 01/28: stable, improved. discharged to home with sister. Time Spent with Patient Time attestation: Total time spent providing and/or coordinating discharge services: Time spent: Greater than 30 minutes Discharge Plan Discharge Anticipated Discharge Date/Time: 01/28/22 13:00 Patient Disposition: Home, Self-Care Discharge Diagnosis: Schizoaffective Disorder, Bipolar Type Referrals: Dr. Siddiqi (Psychiatry) [Other] - 02/25/22 2:00 pm (IN OFFICE APPOINTMENT) Maru Roman (Therapy) [Other] - 1 Week (Your therapist should be in contact with you regarding your follow up therapy appointment -If you do not hear from your therapist by next week, please call the clinic. ) [facility] [Physician] - 1 Week Discharge Medications: New diphenhydramine HCl 25 mg Capsule 50 mg PO Q6H PRN (Reason: Itching) Qty: 30 0RF nicotine (polacrilex) 2 mg Gum 4 mg buccal Q1H PRN (Reason: Nicotine Cravings) Qty: 60 0RF tamsulosin 0.4 mg Capsule 0.4 mg PO BEDTIME Qty: 30 0RF albuterol sulfate [Ventolin HFA] 90 mcg/actuation Hfa Aerosol Inhaler 2 puff inhalation Q4H PRN (Reason: shortness of breath or wheezing) Qty: 6.7 0RF prazosin 2 mg capsule 2 mg PO BEDTIME Qty: 30 0RF carbamazepine 400 mg tablet extended release 12 hr 800 mg PO BID Qty: 120 0RF perphenazine 8 mg Tablet 16 mg PO TID Qty: 180 0RF trazodone 150 mg tablet 150 mg PO BEDTIME Qty: 30 0RF clozapine 100 mg Tablet 100 mg PO BEDTIME Qty: 30 0RF ibuprofen 600 mg Tablet 600 mg PO Q6H PRN (Reason: aches and pains) Qty: 30 0RF olanzapine 20 mg tablet 40 mg PO BEDTIME 30 Days Qty: 60 0RF furosemide 40 mg Tablet 40 mg PO DAILY Qty: 30 0RF Protocol: Hold for SBP< HOLD for SBP < : 90 polyvinyl alcohol [Artificial Tears (polyvin alc)] 1.4 % Drops 2 drp ophthalmic (eye) Q4H PRN (Reason: Dry Eyes) Qty: 15 0RF sennosides-docusate sodium [Senna Plus] 8.6-50 mg Tablet 1 tab PO BID Qty: 60 0RF famotidine 20 mg Tablet 20 mg PO BID Qty: 60 0RF simethicone [Gas Relief (simethicone)] 80 mg Tablet,Chewable 80 mg PO QIDWMHS PRN (Reason: flatulence) Qty: 90 0RF hydrocortisone 1 % Ointment 1 appl topical BID Qty: 28.35 0RF Protocol: Apply to: Apply to: arms where itchiness ascorbic acid (vitamin C) 250 mg Tablet 250 mg PO DAILY Qty: 0 0RF vitamin E (dl, acetate) 180 mg (400 unit) Capsule 180 mg PO BID Qty: 60 0RF clonazepam 1 mg tablet 1 mg PO TID Qty: 90 0RF clonazepam 1 mg Tablet 1 mg PO TID Qty: 0 0RF Continued fluticasone propion-salmeterol 250-50 mcg/dose blister with device 1 inh inhalation BID 30 Days Qty: 60 5RF lovastatin 40 mg tablet 40 mg PO DAILY 30 Days Qty: 30 8RF Discontinued trazodone 150 mg tablet 150 mg PO BEDTIME 30 Days Qty: 30 0RF polyvinyl alcohol [Artificial Tears (polyvin alc)] 1.4 % Drops 2 drp ophthalmic (eye) Q4H PRN (Reason: Dry Eyes) 30 Days Qty: 15 1RF ascorbic acid (vitamin C) 250 mg Tablet 250 mg PO DAILY 30 Days Qty: 30 0RF magnesium hydroxide [Milk of Magnesia] 400 mg/5 mL Suspension 30 ml PO DAILY PRN (Reason: Constipation) 30 Days Qty: 355 0RF tamsulosin 0.4 mg Capsule 0.4 mg PO BEDTIME 30 Days Qty: 30 0RF hydroxyzine pamoate 50 mg capsule 50 mg PO TID PRN (Reason: anxiety) 30 Days Qty: 90 0RF cimetidine 300 mg tablet 300 mg PO Q12H 30 Days Qty: 60 8RF nicotine (polacrilex) 4 mg gum 4 mg buccal Q1H 30 Days Qty: 100 8RF Citrucel 500 mg tablet 500 mg PO BID 30 Days Qty: 60 5RF albuterol sulfate 90 mcg/actuation HFA aerosol inhaler 2 puff inhalation Q4H PRN (Reason: shortness of breath or wheezing) 30 Days Qty: 1 7RF vitamin E 400 unit capsule 1 cap PO BID 30 Days Qty: 30 0RF carbamazepine 400 mg tablet extended release 12 hr 400 mg PO BID 30 Days Qty: 60 0RF prazosin 2 mg capsule 2 mg PO BEDTIME 30 Days Qty: 30 0RF perphenazine 16 mg tablet 16 mg PO TID 30 Days Qty: 90 0RF quetiapine [Seroquel] 200 mg tablet 200 mg PO BID@0900,1400 30 Days Qty: 60 0RF quetiapine [Seroquel] 400 mg tablet 400 mg PO BEDTIME 30 Days Qty: 30 0RF Discharge Orders: Discharge Order (Routine); Ordered 01/28/22 Ordered By: Jeremy Jimenez Diet: Advance to usual diet Activity on Discharge: As tolerated Stand Alone Forms: Patient Portal Discharge page, Community Support Care Plan Goals: remain safe and sober in the outpatient treatment setting Health Concerns: HTN GERD Hyperlipidemia Plan of Treatment: take medications as prescribed, attend appointments as scheduled Assessment: not at imminent risk of harm to self or others Discharge Date/Time: 01/28/22 13:21
== END 2022-01-28 13:21 | disposition home or self-care (01) | DRG 750 ==
LOC: HO.ED 12-02 00:55 → HO.PADLT16 12-02 14:50
PROVIDERS: Registered Nurse; Social Worker; Admitting Provider Psychiatry & Neurology Psychiatry; Emergency Provider Emergency Medicine; Visit Provider Psychiatry & Neurology Psychiatry
DX: F25.9 Schizoaffective disorder, unspecified (principal); U07.1 COVID-19; L03.115 Cellulitis of right lower limb; E78.5 Hyperlipidemia, unspecified; E66.9 Obesity, unspecified; Z68.30 Body mass index [BMI] 30.0-30.9, adult; N40.0 Benign prostatic hyperplasia without lower urinary tract symptoms; F41.9 Anxiety disorder, unspecified; K21.9 Gastro-esophageal reflux disease without esophagitis; J44.9 Chronic obstructive pulmonary disease, unspecified; Z87.891 Personal history of nicotine dependence; Z79.51 Long term (current) use of inhaled steroids; Z79.899 Other long term (current) drug therapy
CPT/HCPCS: 36415; 80048; 80053; 80061; 80076; 80156; 80178; 80307; 81003; 82607; 82746; 83690; 83880; 84443; 85025; 85048; 87635; 93005; 93970; 99285; J0248

== ENCOUNTER 2022-02-13 13:38 | Outpatient (REF) | payer OTHER, SELFPAY ==
[2022-02-13 13:58] LABS: MANUAL DIFF FLAG NO
[2022-02-13 14:52] LABS: Basophils Percent Auto 0.7 % (0-2); Eosinophils Absolute Auto 0.1 X10*3/uL (0.0-0.4); Eosinophils Percent Auto 1.1 % (0-4); Hematocrit 46.9 % (42.0-52.0); Hemoglobin 15.8 g/dl (14.0-18.0); Imm Gran Abs Auto 0.02 X10*3/uL (0.00-0.03); Imm Gran Pct Auto 0.4 % (0.0-0.4); Lymphocytes Absolute Auto 1.3 X10*3/uL (1.2-4.9); Lymphocytes Percent Auto 23.7 % (20-40); Mean Corpuscular HGB Conc 33.7 g/dl (31.0-36.0); Mean Corpuscular Hemoglobin 31.5 pg (27.0-33.0); Mean Corpuscular Volume 93.4 fL (80.0-98.0); Mean Platelet Volume 10.5 fL (9.4-12.4); Monocytes Absolute Auto 0.5 X10*3/uL (0.1-1.2); Monocytes Percent Auto 8.2 % (2-11); Neutrophils Absolute Auto 3.7 x10*3/uL (2.0-8.3); Neutrophils Percent Auto 65.9 % (45-73); Platelet Count 231 X10*3/uL (160-400); Red Blood Count 5.02 X10*6/uL (4.60-5.80); Red Cell Distribution Width 13.1 % (11.0-16.0); White Blood Count 5.6 X10*3/uL (4.8-10.8)
[2022-02-13 15:58] LABS: Alanine Aminotransferase 35 U/L (0-40); Albumin Level 4.6 g/dL (3.5-5.0); Alkaline Phosphatase 95 U/L (39-117); Anion Gap 12 (12-20); Aspartate Amino Transferase 20 U/L (5-37); Bilirubin Total 0.6 mg/dL (0.0-1.0); Blood Urea Nitrogen 20 mg/dL (9-16); Calcium 9.5 mg/dL (8.4-10.2); Carbon Dioxide 30 mmol/L (22-29); Chloride 102 mmol/L (96-108); Cholesterol 271 mg/dL; Estimated Glomerular Filt Rate > 60; Glucose Fasting 113 mg/dL (60-99); HDL Cholesterol 35 mg/dL; LDL Cholesterol Calculated 196 mg/dl; Potassium 4.4 mmol/L (3.3-5.1); Sodium 140 mmol/L (135-145); Thyroid Stimulating Hormone 1.82 uIU/mL (0.32-4.0); Total Protein 7.2 g/dL (6.5-8.0); Triglycerides 201 mg/dL
== END 2022-02-13 13:39 | disposition home or self-care (01) ==
LOC: HO.LAB 13:38
PROVIDERS: PCP Internal Medicine; Visit Provider Internal Medicine
DX: E03.9 Hypothyroidism, unspecified (principal); E78.5 Hyperlipidemia, unspecified; I10 Essential (primary) hypertension; Z13.0 Encounter for screening for diseases of the blood and blood-forming organs and certain disorders involving the immune mechanism
CPT/HCPCS: 36415; 80053; 80061; 84443; 85025

== ENCOUNTER 2022-03-19 09:41 | Outpatient (REF) | payer OTHER, SELFPAY ==
[2022-03-19 09:56] LABS: MANUAL DIFF FLAG NO
[2022-03-19 10:22] LABS: Basophils Percent Auto 0.5 % (0-2); Eosinophils Absolute Auto 0.1 X10*3/uL (0.0-0.4); Eosinophils Percent Auto 1.1 % (0-4); Hematocrit 49.9 % (42.0-52.0); Hemoglobin 16.1 g/dl (14.0-18.0); Imm Gran Abs Auto 0.07 X10*3/uL (0.00-0.03); Imm Gran Pct Auto 1.3 % (0.0-0.4); Lymphocytes Absolute Auto 1.5 X10*3/uL (1.2-4.9); Lymphocytes Percent Auto 27.3 % (20-40); Mean Corpuscular HGB Conc 32.3 g/dl (31.0-36.0); Mean Corpuscular Hemoglobin 30.8 pg (27.0-33.0); Mean Corpuscular Volume 95.4 fL (80.0-98.0); Monocytes Absolute Auto 0.4 X10*3/uL (0.1-1.2); Monocytes Percent Auto 7.7 % (2-11); Neutrophils Absolute Auto 3.4 x10*3/uL (2.0-8.3); Neutrophils Percent Auto 62.1 % (45-73); Platelet Count 222 X10*3/uL (160-400); Red Blood Count 5.23 X10*6/uL (4.60-5.80); Red Cell Distribution Width 13.7 % (11.0-16.0); White Blood Count 5.5 X10*3/uL (4.8-10.8)
== END 2022-03-19 09:42 | disposition home or self-care (01) ==
LOC: HO.LAB 09:41
PROVIDERS: PCP Internal Medicine; Visit Provider Psychiatry & Neurology Psychiatry
DX: Z79.899 Other long term (current) drug therapy (principal)
CPT/HCPCS: 36415; 85025

== ENCOUNTER 2022-04-18 08:27 | Outpatient (REF) | payer OTHER, SELFPAY ==
[2022-04-18 08:36] LABS: MANUAL DIFF FLAG NO
[2022-04-18 09:19] LABS: Basophils Percent Auto 0.5 % (0-2); Eosinophils Absolute Auto 0.1 X10*3/uL (0.0-0.4); Eosinophils Percent Auto 1.8 % (0-4); Hematocrit 45.1 % (42.0-52.0); Hemoglobin 14.6 g/dl (14.0-18.0); Imm Gran Abs Auto 0.02 X10*3/uL (0.00-0.03); Imm Gran Pct Auto 0.4 % (0.0-0.4); Lymphocytes Absolute Auto 1.7 X10*3/uL (1.2-4.9); Lymphocytes Percent Auto 29.2 % (20-40); Mean Corpuscular HGB Conc 32.4 g/dl (31.0-36.0); Mean Corpuscular Volume 95.8 fL (80.0-98.0); Mean Platelet Volume 10.5 fL (9.4-12.4); Monocytes Absolute Auto 0.4 X10*3/uL (0.1-1.2); Monocytes Percent Auto 7.4 % (2-11); Neutrophils Absolute Auto 3.4 x10*3/uL (2.0-8.3); Neutrophils Percent Auto 60.7 % (45-73); Platelet Count 176 X10*3/uL (160-400); Red Blood Count 4.71 X10*6/uL (4.60-5.80); Red Cell Distribution Width 13.1 % (11.0-16.0); White Blood Count 5.7 X10*3/uL (4.8-10.8)
== END 2022-04-18 08:28 | disposition home or self-care (01) ==
LOC: HO.LABR 08:27
PROVIDERS: PCP Internal Medicine; Visit Provider Psychiatry & Neurology Psychiatry
DX: Z79.899 Other long term (current) drug therapy (principal)
CPT/HCPCS: 36415; 85025

== ENCOUNTER 2022-05-16 09:20 | Outpatient (REF) | payer OTHER, SELFPAY ==
[2022-05-16 09:29] LABS: MANUAL DIFF FLAG NO
[2022-05-16 10:20] LABS: Basophils Percent Auto 0.5 % (0-2); Eosinophils Absolute Auto 0.1 X10*3/uL (0.0-0.4); Eosinophils Percent Auto 1.8 % (0-4); Hematocrit 46.3 % (42.0-52.0); Hemoglobin 15.4 g/dl (14.0-18.0); Imm Gran Abs Auto 0.02 X10*3/uL (0.00-0.03); Imm Gran Pct Auto 0.4 % (0.0-0.4); Lymphocytes Absolute Auto 1.8 X10*3/uL (1.2-4.9); Lymphocytes Percent Auto 31.8 % (20-40); Mean Corpuscular HGB Conc 33.3 g/dl (31.0-36.0); Mean Corpuscular Hemoglobin 31.8 pg (27.0-33.0); Mean Corpuscular Volume 95.7 fL (80.0-98.0); Mean Platelet Volume 10.3 fL (9.4-12.4); Monocytes Absolute Auto 0.5 X10*3/uL (0.1-1.2); Monocytes Percent Auto 8.3 % (2-11); Neutrophils Absolute Auto 3.2 x10*3/uL (2.0-8.3); Neutrophils Percent Auto 57.2 % (45-73); Platelet Count 190 X10*3/uL (160-400); Red Blood Count 4.84 X10*6/uL (4.60-5.80); Red Cell Distribution Width 12.8 % (11.0-16.0); White Blood Count 5.6 X10*3/uL (4.8-10.8)
== END 2022-05-16 09:21 | disposition home or self-care (01) ==
LOC: HO.LABR 09:20
PROVIDERS: PCP Internal Medicine; Visit Provider Psychiatry & Neurology Psychiatry
DX: Z79.899 Other long term (current) drug therapy (principal)
CPT/HCPCS: 36415; 85025

== ENCOUNTER 2022-06-05 10:30 | Emergency (ER) | payer OTHER, SELFPAY ==
--- NOTE | ~2022-06-05 | XR_ITS ---
EXAMINATION: XR SHOULDER, LEFT CLINICAL INFORMATION: Left shoulder pain. COMPARISON: None available. TECHNIQUE: Three views of the left shoulder. FINDINGS: The bones and soft tissues are normal. No fracture. Glenohumeral and acromioclavicular alignment is anatomic with normal joint space. No abnormal soft tissue calcifications. XR/XR shoulder LT min 2V IMPRESSION: Unremarkable left shoulder.
--- NOTE | ~2022-06-05 | XR_ITS ---
EXAMINATION: XR CHEST CLINICAL INFORMATION: Chest pain. COMPARISON: 12/19/2020 chest radiographs. TECHNIQUE: 2 views of the chest were obtained. FINDINGS: No significant abnormality is noted involving the heart, lungs, mediastinum, bony thorax or soft tissues. XR/XR chest 2V IMPRESSION: No acute cardiopulmonary process.
--- NOTE | ~2022-06-05 | XR_ITS ---
EXAMINATION: XR CERVICAL SPINE CLINICAL INFORMATION: Neck/shoulder pain. COMPARISON: None available. TECHNIQUE: 3 views of the cervical spine were obtained. FINDINGS: Mild reversal the normal cervical lordosis is seen with apex at C4-5. Moderate to severe degenerative disc disease is seen from C4-5 to C6-7 with significant disc space narrowing, sclerosis and adjacent endplates and marginal osteophyte formation most pronounced at C5-6. The vertebral bodies are intact. The odontoid process is intact with no acute fracture. The soft tissues are unremarkable. XR/XR cervical spine 3V IMPRESSION: 1. Mild reversal the normal cervical lordosis may be secondary to positioning and/or muscle spasm. 2. Moderate to severe degenerative disc disease from C4-5 to C6-7.
--- NOTE | 2022-06-05 10:34 | ECG_ITS ---
Test Reason : l arm pain Blood Pressure : / mmHG Vent. Rate : 077 BPM Atrial Rate : 077 BPM P-R Int : 192 ms QRS Dur : 096 ms QT Int : 378 ms P-R-T Axes : 048 094 027 degrees QTc Int : 427 ms Normal sinus rhythm Rightward axis Borderline ECG When compared with ECG of 01-DEC-2021 15:35, No significant change was found Referred By: Generic ED Physician Electronically Signed By:KAMILA LEROY
[2022-06-05 10:40] VITALS: BP 159/99; PULSE 79; RESP 16; TEMP 36.6; O2SAT 98; BMI 31.8
[2022-06-05 10:53] LABS: MANUAL DIFF FLAG NO
--- NOTE | 2022-06-05 10:56 | ED_ITS ---
HPI - General Adult General Chief complaint: General Medical Stated complaint: L shoulder/arm pain Time Seen by Provider: 06/05/22 10:46 Source: patient and RN notes reviewed Mode of arrival: ambulatory Limitations: no limitations History of Present Illness HPI narrative: This is a 52-year-old male, with past history schizoaffective disorder, presents to the emergency department today with complaints of left shoulder pain and chest pain x 2 days. Patient reports that he is unsure what he was doing but noticed that he was experiencing left shoulder pain that radiates down into his left hand. He denies any recent trauma, injury, any lifting or falls. Patient also reports that he has had some midsternal chest pain that is constant but reports that his left shoulder pain is more severe than his chest pain. He denies any dizziness, headache, lightheadedness, fevers, chills, sore throat, ear pain, shortness of breath, palpitations, abdominal pain, nausea, vomiting, diarrhea, constipation or lower extremity swelling. He denies history of left shoulder pain in the past. He denies any hx of blood clots, recent travels, surgeries, or hx of cancer. No other complaints or concerns at this time. MD complaint: Left shoulder pain/chest pain Onset (ago): day(s) Location: chest, left and upper extremity Radiation: neck and extremity Severity: moderate Quality: aching Pain Consistency: constant Relieving factors: none Exacerbating factors: none Associated symptoms: denies other symptoms Treatments prior to arrival: none Related Data Home Medications Medication Instructions Recorded Confirmed perphenazine 16 mg tablet 0 mg PO 03/11/22 05/29/22 Previous Rx's Medication Instructions Recorded fluticasone 250 mcg-salmeterol 50 1 inh inhalation BID 30 days #60 ea 11/17/21 mcg/dose blistr powdr for inhalation albuterol sulfate 90 mcg/actuation 2 puff inhalation Q4H PRN 01/27/22 aerosol inhaler (Ventolin HFA) shortness of breath or wheezing #6.7 grams ascorbic acid (vitamin C) 250 mg 250 mg PO DAILY #0 tabs 01/27/22 tablet carbamazepine 400 mg 800 mg PO BID #120 tabs 01/27/22 tablet,extended release,12 hr clozapine 100 mg tablet 100 mg PO BEDTIME #30 tabs 01/27/22 furosemide 40 mg tablet 40 mg PO DAILY #30 tabs 01/27/22 olanzapine 20 mg tablet 40 mg PO BEDTIME 30 days #60 tabs 01/27/22 polyvinyl alcohol 1.4 % eye drops 2 drp ophthalmic (eye) Q4H PRN Dry 01/27/22 (Artificial Tears (polyvinyl Eyes #15 mL alcohol)) prazosin 2 mg capsule 2 mg PO BEDTIME #30 caps 01/27/22 simethicone 80 mg chewable tablet 80 mg PO QIDWMHS PRN flatulence 01/27/22 (Gas Relief (simethicone)) #90 tabs trazodone 150 mg tablet 150 mg PO BEDTIME #30 tabs 01/27/22 vitamin E (dl, acetate) 180 mg 180 mg PO BID #60 caps 01/27/22 (400 unit) capsule clonazepam 1 mg tablet 1 mg PO TID #0 tabs 01/28/22 diphenhydramine HCl 25 mg capsule 50 mg PO Q6H PRN Itching #30 caps 02/20/22 famotidine 20 mg tablet 20 mg PO BID #60 tabs 04/27/22 ibuprofen 600 mg tablet 600 mg PO Q6H PRN aches and pains 04/27/22 #60 tabs tamsulosin 0.4 mg capsule 0.4 mg PO BEDTIME #30 caps 05/05/22 atorvastatin 20 mg tablet 20 mg PO DAILY #60 tabs 05/14/22 triamcinolone acetonide 0.5 % 1 appl topical TID #15 grams 05/14/22 topical cream nicotine (polacrilex) 2 mg gum 4 mg buccal Q1H PRN Nicotine 05/21/22 Cravings #100 ea Allergies Allergy/AdvReac Type Severity Reaction Status Date / Time divalproex sodium Allergy Severe PANCREATITI Verified 05/29/22 13:21 [From DEPAKOTE] S haloperidol [From Haldol] Allergy Intermediate DYSTONIC Verified 05/29/22 13:21 REACTION Review of Systems Review of Systems: Yes all other systems are reviewed and are negative FOR[facility]LY [facility], [facility] Past Medical History Medical History Anxiety COPD (chronic obstructive pulmonary disease) Difficulty sleeping Elevated cholesterol GERD (gastroesophageal reflux disease) Hx of pancreatitis Hyperlipidemia Obesity Schizoaffective disorder Smoker Surgical History History of bilateral cataract extraction History of bunionectomy History of excision of mass Hx of colonoscopy Family History Family History Father Diabetes Mother No problems noted. Paternal Grandfather Gastric cancer Social History Social History Household Members: None Housing: Apartment Are you a primary care support representative to a significant other at home: No Do you presently have visiting nurse or other home services: No Unable to assess alcohol history related to: Unknown Alcohol intake: current Alcohol intake frequency: holidays/special occasions only Alcohol type: beer Patient Tobacco Use Status: Former Tobacco user Quit Date: 12/2020 Tobacco use type: Cigarette Cigarettes Per Day: 0.5 Years Smoked: unknown e-Cigarette/Vaping Use: Never Used Second Hand Smoke Exposure: No service: No Current occupational status: disabled Sexual orientation: Straight/Heterosexual Cognitive needs: No Hearing needs: No Vision needs: No Physical Exam ED Vital Signs: Vital Signs - 24 hr 06/05/22 10:40 Temperature 97.9 F Pulse Rate 79 Respiratory Rate 16 Blood Pressure 159/99 H Pulse Oximetry 98 Oxygen Delivery Method Room Air BMI result Body Mass Index 31.8 Appearance: Alert. Oriented X3. No acute distress. Eyes: Pupils equal, round and reactive to light. EOMI ENT: Pharynx normal. Patent airway. No pharyngeal edema or erythema, uvula is m idline. Neck: Normal inspection. Neck supple. Mild tenderness to palpation overlying the base of the cervical spine, no tenderness overlying the paraspinous muscles. ROM is full and intact. CVS: Normal heart rate and rhythm. Pulses normal. Nontender chest. S1S2 regular, no murmurs, rubs or gallops. Respiratory: No respiratory distress. Breath sounds normal. Lungs clear to auscultation bilaterally. Abdomen: Soft and nontender. +BS x4 Skin: Skin warm and dry. Normal skin color. Normal skin turgor. No rashes. Extremities: No lower extremity edema. No calf tenderness. MSK: Left shoulder with mild tenderness overlying the bicipital groove, Distal sensation and circulation is intact. Negative empty can test. Full range of motion of the left shoulder. Neuro: Oriented X 3. No motor deficit. No sensory deficit. CN II-XII intact. Course Reevaluation(s) Reevaluation #1: Patient was re-evaluated, patient has no leukocytosis chemistry is within normal limits, and patient has a negative troponin. EKG is normal sinus rhythm without any signs of any acute ischemic changes, or ST elevation or depression. Chest x-ray and left shoulder x-ray are unremarkable. Cervical spine x-ray reveals mo derate to severe degenerative disc disease from C4 to C5-C6 C7. This correlates with a dermatomal distribution of patient's symptoms. Symptoms and workup today consistent with a cervical radiculopathy. Patient educated that he should follow-up with his primary care physician as this may need to be further evaluated by Neurosurgery. Educated patient to take ibuprofen and Tylenol and given instructions on when to return to the emergency department. Patient understands and agrees with plan. Time: 12:56 Medical Decision Making Medical Decision Making [facility] Narrative: This is a 52-year-old male, with past history schizoaffective disorder, presents to the emergency department today with complaints of left shoulder pain and chest pain x 2 days. VSS stable. Patient appears comfortable, in no acute distress. Patient placed on telemetry monitor. EKG was normal sinus rhythm, with no ST elevation or depression, or any ischemic changes. Troponin was negative. Patient is PERC negative. Plan: C-spine, left shoulder and chest x-ray ordered. EKG and labs ordered. Differential Diagnosis Differential Diagnoses: The differential diagnosis associated with the presentation includes ACS, left shoulder strain, cervical radiculopathy, PE Lab Data [facility] Lab Attestation statement: I reviewed the patient's lab results. Negative troponin, no leukocytosis normal H&H, normal chemistry. 06/05/22 10:50 06/05/22 10:50 Labs: Lab Results 06/05/22 06/05/22 06/05/22 Range/Units 10:50 10:50 10:50 WBC 5.8 (4.8-10.8) X10*3/uL RBC 4.65 (4.60-5.80) X10*6/uL Hgb 15.0 (14.0-18.0) g/dl Hct 44.4 (42.0-52.0) % MCV 95.5 (80.0-98.0) fL MCH 32.3 (27.0-33.0) pg MCHC 33.8 (31.0-36.0) g/dl RDW 12.9 (11.0-16.0) % Plt Count 157 L (160-400) X10*3/uL MPV 10.3 (9.4-12.4) fL Immature Gran % (Auto) 0.5 H (0.0-0.4) % Neut % (Auto) 56.3 (45-73) % Lymph % (Auto) 33.4 (20-40) % [place] % (Auto) 8.3 (2-11) % Eos % (Auto) 1.0 (0-4) % Baso % (Auto) 0.5 (0-2) % Lymph # (Auto) 1.9 (1.2-4.9) X10*3/uL [place] # (Auto) 0.5 (0.1-1.2) X10*3/uL Eos # (Auto) 0.1 (0.0-0.4) X10*3/uL Baso # (Auto) 0.0 (0.0-0.2) X10*3/uL Abs Immat Gran (auto) 0.03 (0.00-0.03) X10*3/uL Absolute Neuts (auto) 3.2 (2.0-8.3) x10*3/uL Absolute Nucleated RBC 0.000 (0.0-0.012) X10*3/uL Nucleated RBC % (auto) 0.0 (0.0-0.2) /100WBC Sodium 142 (135-145) mmol/L Potassium 4.2 (3.3-5.1) mmol/L Chloride 108 (96-108) mmol/L Carbon Dioxide 27 (22-29) mmol/L Anion Gap 11 L (12-20) BUN 12 (9-16) mg/dL Creatinine 0.95 (0.5-1.4) mg/dL Estim Creat Clear Calc 124.7 Estimated GFR > 60 Random Glucose 112 (60-115) mg/dL Calcium 8.9 D (8.4-10.2) mg/dL Troponin I High Sens < 3.5 (<3.5-35.0) ng/L Independent Interpretation I performed an independent interpretation of an: EKG Interpretation: EKG normal sinus rhythm with a ventricular rate of 77 beats per minute, normal [place] interval, QTC 427. No acute ischemic changes, no ST elevation or depression. Radiology Impression Discussion of test interpretation with radiology: I have reviewed the radiologist's reading. Radiologist Impression: EXAMINATION: XR SHOULDER, LEFT CLINICAL INFORMATION: Left shoulder pain.? COMPARISON: None available.? TECHNIQUE: Three views of the left shoulder. FINDINGS: The bones and soft tissues are normal. No fracture. Glenohumeral and acromioclavicular alignment is anatomic with normal joint space. No abnormal soft tissue calcifications.? XR/XR shoulder LT min 2V IMPRESSION: Unremarkable left shoulder. EXAMINATION: XR CHEST CLINICAL INFORMATION: Chest pain. COMPARISON: 12/19/2020 chest radiographs. TECHNIQUE: 2 views of the chest were obtained. FINDINGS: No significant abnormality is noted involving the heart, lungs, mediastinum, bony thorax or soft tissues. XR/XR chest 2V IMPRESSION: No acute cardiopulmonary process. EXAMINATION: XR CERVICAL SPINE CLINICAL INFORMATION: Neck/shoulder pain. COMPARISON: None available. TECHNIQUE: 3 views of the cervical spine were obtained. FINDINGS: Mild reversal the normal cervical lordosis is seen with apex at C4-5. Moderate to severe degenerative disc disease is seen from C4-5 to C6-7 with significant disc space narrowing, sclerosis and adjacent endplates and marginal osteophyte formation most pronounced at C5-6. The vertebral bodies are intact. The odontoid process is intact with no acute fracture. The soft tissues are unremarkable. XR/XR cervical spine 3V IMPRESSION: 1.? Mild reversal the normal cervical lordosis may be secondary to positioning and/or muscle spasm. 2.? Moderate to severe degenerative disc disease from C4-5 to C6-7. Discharge Plan Discharge Clinical Impression: Cervical radiculopathy Patient Disposition: Home, Self-Care Instructions: Cervical Radiculopathy (ED) Additional Instructions: Your neck x-ray showed Moderate to severe degenerative disc disease from C4-5 to C6-7. This is likely the cause of your current symptoms. Your ekg, chest x-ray, and left shoulder x-ray was normal today. You make take ibuprofen/tylenol as needed for symptoms. Please follow up with your primary care physician regarding this visit, as you may need to be referred to neurosurgery. If any new or worsening symptoms occur, please return for further evaluation. Prescriptions: No Action diphenhydramine HCl 25 mg capsule 50 mg PO Q6H PRN (Reason: Itching) Qty: 30 0RF famotidine 20 mg tablet 20 mg PO BID Qty: 60 7RF tamsulosin 0.4 mg capsule 0.4 mg PO BEDTIME Qty: 30 0RF nicotine (polacrilex) 2 mg gum 4 mg buccal Q1H PRN (Reason: Nicotine Cravings) Qty: 100 8RF fluticasone propion-salmeterol 250-50 mcg/dose blister with device 1 inh inhalation BID 30 Days Qty: 60 5RF albuterol sulfate [Ventolin HFA] 90 mcg/actuation Hfa Aerosol Inhaler 2 puff inhalation Q4H PRN (Reason: shortness of breath or wheezing) Qty: 6.7 0RF prazosin 2 mg capsule 2 mg PO BEDTIME Qty: 30 0RF carbamazepine 400 mg tablet extended release 12 hr 800 mg PO BID Qty: 120 0RF trazodone 150 mg tablet 150 mg PO BEDTIME Qty: 30 0RF clozapine 100 mg Tablet 100 mg PO BEDTIME Qty: 30 0RF olanzapine 20 mg tablet 40 mg PO BEDTIME 30 Days Qty: 60 0RF furosemide 40 mg Tablet 40 mg PO DAILY Qty: 30 0RF Protocol: Hold for SBP< HOLD for SBP < : 90 polyvinyl alcohol [Artificial Tears (polyvin alc)] 1.4 % Drops 2 drp ophthalmic (eye) Q4H PRN (Reason: Dry Eyes) Qty: 15 0RF simethicone [Gas Relief (simethicone)] 80 mg Tablet,Chewable 80 mg PO QIDWMHS PRN (Reason: flatulence) Qty: 90 0RF ascorbic acid (vitamin C) 250 mg Tablet 250 mg PO DAILY Qty: 0 0RF vitamin E (dl, acetate) 180 mg (400 unit) Capsule 180 mg PO BID Qty: 60 0RF clonazepam 1 mg Tablet 1 mg PO TID Qty: 0 0RF triamcinolone acetonide 0.5 % cream 1 appl topical TID Qty: 15 3RF atorvastatin 20 mg tablet 20 mg PO DAILY Qty: 60 5RF perphenazine 16 mg tablet 0 mg PO ibuprofen 600 mg tablet 600 mg PO Q6H PRN (Reason: aches and pains) Qty: 60 4RF Referrals: Artemio Lopez MD [Primary Care Provider] - Interventions: ED Discharge Assessment Last Done: 06/05/22 13:01 Discharge Date/Time: 06/05/22 13:02
[2022-06-05 10:57] LABS: Basophils Percent Auto 0.5 % (0-2); Eosinophils Absolute Auto 0.1 X10*3/uL (0.0-0.4); Hematocrit 44.4 % (42.0-52.0); Imm Gran Abs Auto 0.03 X10*3/uL (0.00-0.03); Imm Gran Pct Auto 0.5 % (0.0-0.4); Lymphocytes Absolute Auto 1.9 X10*3/uL (1.2-4.9); Lymphocytes Percent Auto 33.4 % (20-40); Mean Corpuscular HGB Conc 33.8 g/dl (31.0-36.0); Mean Corpuscular Hemoglobin 32.3 pg (27.0-33.0); Mean Corpuscular Volume 95.5 fL (80.0-98.0); Mean Platelet Volume 10.3 fL (9.4-12.4); Monocytes Absolute Auto 0.5 X10*3/uL (0.1-1.2); Monocytes Percent Auto 8.3 % (2-11); Neutrophils Absolute Auto 3.2 x10*3/uL (2.0-8.3); Neutrophils Percent Auto 56.3 % (45-73); Platelet Count 157 X10*3/uL (160-400); Red Blood Count 4.65 X10*6/uL (4.60-5.80); Red Cell Distribution Width 12.9 % (11.0-16.0); White Blood Count 5.8 X10*3/uL (4.8-10.8)
--- NOTE | 2022-06-05 11:01 | PC.NURSE ---
patient a&ox3, ekg performed, labs drawn, pt placed on monitor tech, vitals currently stable, pt c/o lt arm pain not reproducible with movement- pt states it is a constant pain, denies trauma, call juárez within reach, will continue to monitor.
[2022-06-05 11:09] LABS: Anion Gap 11 (12-20); Blood Urea Nitrogen 12 mg/dL (9-16); Carbon Dioxide 27 mmol/L (22-29); Chloride 108 mmol/L (96-108); Creatinine Clr Calc Pharmacy 124.7; Potassium 4.2 mmol/L (3.3-5.1); Sodium 142 mmol/L (135-145)
[2022-06-05 11:10] LABS: Calcium 8.9 mg/dL (8.4-10.2); Estimated Glomerular Filt Rate > 60; Glucose Random 112 mg/dL (60-115)
[2022-06-05 11:23] LABS: Troponin-I High Sensitivity < 3.5 ng/L (<3.5-35.0)
== END 2022-06-05 13:02 | disposition home or self-care (01) ==
PROVIDERS: Emergency Provider Emergency Medicine Emergency Medical Services; PCP Internal Medicine
DX: M50.121 Cervical disc disorder at C4-C5 level with radiculopathy (principal); M50.123 Cervical disc disorder at C6-C7 level with radiculopathy; F17.200 Nicotine dependence, unspecified, uncomplicated; E78.5 Hyperlipidemia, unspecified; Z79.899 Other long term (current) drug therapy
CPT/HCPCS: 36415; 71046; 72040; 73030; 80048; 84484; 85025; 93005; 99283

== ENCOUNTER 2022-06-17 06:53 | Outpatient (REF) | payer OTHER, SELFPAY ==
[2022-06-17 07:03] LABS: MANUAL DIFF FLAG NO
[2022-06-17 07:35] LABS: Basophils Percent Auto 0.5 % (0-2); Eosinophils Absolute Auto 0.2 X10*3/uL (0.0-0.4); Hematocrit 44.7 % (42.0-52.0); Hemoglobin 14.9 g/dl (14.0-18.0); Imm Gran Abs Auto 0.02 X10*3/uL (0.00-0.03); Imm Gran Pct Auto 0.3 % (0.0-0.4); Lymphocytes Absolute Auto 1.9 X10*3/uL (1.2-4.9); Mean Corpuscular HGB Conc 33.3 g/dl (31.0-36.0); Mean Corpuscular Hemoglobin 32.3 pg (27.0-33.0); Mean Platelet Volume 10.2 fL (9.4-12.4); Monocytes Absolute Auto 0.4 X10*3/uL (0.1-1.2); Monocytes Percent Auto 6.1 % (2-11); Neutrophils Absolute Auto 3.3 x10*3/uL (2.0-8.3); Neutrophils Percent Auto 57.1 % (45-73); Platelet Count 194 X10*3/uL (160-400); Red Blood Count 4.61 X10*6/uL (4.60-5.80); Red Cell Distribution Width 13.1 % (11.0-16.0); White Blood Count 5.8 X10*3/uL (4.8-10.8)
== END 2022-06-17 06:54 | disposition home or self-care (01) ==
LOC: HO.LABR 06:53
PROVIDERS: Psychiatry & Neurology Psychiatry; PCP Internal Medicine; Visit Provider Clinical Nurse Specialist Psychiatric/Mental Health, Adult
DX: Z79.899 Other long term (current) drug therapy (principal)
CPT/HCPCS: 36415; 85025

== ENCOUNTER 2022-07-22 09:04 | Outpatient (REF) | payer OTHER, SELFPAY ==
[2022-07-22 09:15] LABS: MANUAL DIFF FLAG NO
[2022-07-22 10:20] LABS: Basophils Percent Auto 0.7 % (0-2); Eosinophils Percent Auto 0.7 % (0-4); Hematocrit 43.4 % (42.0-52.0); Hemoglobin 14.5 g/dl (14.0-18.0); Imm Gran Abs Auto 0.02 X10*3/uL (0.00-0.03); Imm Gran Pct Auto 0.3 % (0.0-0.4); Lymphocytes Absolute Auto 1.3 X10*3/uL (1.2-4.9); Lymphocytes Percent Auto 21.9 % (20-40); Mean Corpuscular HGB Conc 33.4 g/dl (31.0-36.0); Mean Corpuscular Hemoglobin 32.5 pg (27.0-33.0); Mean Corpuscular Volume 97.3 fL (80.0-98.0); Mean Platelet Volume 10.5 fL (9.4-12.4); Monocytes Absolute Auto 0.4 X10*3/uL (0.1-1.2); Neut%MD 69.4 %; Neutrophils Absolute Auto 4.2 x10*3/uL (2.0-8.3); Neutrophils Percent Auto 69.4 % (45-73); Platelet Count 187 X10*3/uL (160-400); Red Blood Count 4.46 X10*6/uL (4.60-5.80); Red Cell Distribution Width 12.9 % (11.0-16.0)
== END 2022-07-22 09:05 | disposition home or self-care (01) ==
LOC: HO.LABR 09:04
PROVIDERS: PCP Internal Medicine; Visit Provider Psychiatry & Neurology Psychiatry
DX: Z79.899 Other long term (current) drug therapy (principal)
CPT/HCPCS: 36415; 85025

== ENCOUNTER 2022-08-17 12:00 | Outpatient (RCR) | payer OTHER, SELFPAY ==
--- NOTE | 2022-07-29 13:50 | MHC.PT.EP ---
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 RECENT XRAYS REVEALED Moderate to severe degenerative disc disease from C4-5 to C6-7. THE Pt HAS DECR POSTURAL AWARENESS, CERV AROM LIMITATIONS, DECR POST RC/ SCAP STRENGTH, AND INTERM PAIN IN HIS [place]AUGH[place] LOWER CERV REGION- HE CURRENTLY DENIED LEFT RADIC. Pt IS A GOOD PT CANDIDATE TO GUIDE HIM IN ADDRESSING THE ABOVE FINDINGS, PAIN MGMT, DEV A PROGRESSIVE HEP AND SELF-SX MGMT STRATEGIES. Frequency and Duration: The patient will be seen 2 x WK x 4 WKS Short Term Goals: *Pt INDEP SELF CORRECT POSTURE IN VARIED POSES *DECR CERV PAIN TO 2-3/10 *IMPROVE CERV AROM AND ANT CHEST/PECT STRETCH/ FLEXIB [facility] Goals: *Pt INDEP HEP AND SELF-SX MGMT TECHN *Pt INDEP W REG ADLs/ EXER ROUTINE *Pt DEMON PROPER BODY MECH W 3:3 SIMUL TASK*POST RC/ SCAP STRENGTH INCR BY 1/2 TO 1 GRADE Treatment Plan: Modalities to reduce pain, spasms and effusion. Manual therapy to restore motion and function. Therapeutic exercise to improve strength and flexibility. Neuromuscular re-education for posture and balance. Therapeutic activities to return to functional activities of daily living. Electronically signed by: OSMIN RODNEY,PT Please sign and return to therapist. Thank you for your referral.
--- NOTE | 2022-09-15 07:49 | MHC.PT.DC ---
[facility] [place] Office [place] Office [place] Office [address] Thania Reyes [address] [facility] [phone] F: [phone] F: [phone] F: [phone] F: [phone] Physical Therapy Discharge Report Diagnosis: CHRONIC NECK PAIN->SPONDYLOSIS W/O MYELOPATHY Date of Surgery: Date of Evaluation: 07/29/22 Date of Discharge: 09/15/22 Treatments to Date: 6 Cancellations to Date: 2 No Shows to Date: 0 Discharge Status: Improved Function Independent with HEP Patient Elected to Stop Discharge Summary: THE Pt RESPONDED WELL TO PT INTERVENTION-> HE HAS A HEP AND IS MORE AWARE OF HIS POSTURE. HIS NECK PAIN HAS DECR- THE Pt DID NOT ATTEND THE LAST 2 SCHED PT APPTS AND THEREFORE, A FORMAL RE-ASSESSMENT WAS NOT PERF. Electronically signed by: OSMIN RODNEY,PT Please sign and return to therapist. Thank you for your referral.
== END 2022-09-15 07:57 | disposition home or self-care (01) ==
LOC: HO.PT 12:00
PROVIDERS: PCP Internal Medicine; Visit Provider Internal Medicine
DX: M47.812 Spondylosis without myelopathy or radiculopathy, cervical region (principal)
CPT/HCPCS: 97110; 97162

== ENCOUNTER 2022-08-19 09:24 | Outpatient (REF) | payer OTHER, SELFPAY ==
[2022-08-19 09:35] LABS: MANUAL DIFF FLAG NO
[2022-08-19 10:48] LABS: Basophils Percent Auto 0.4 % (0-2); Eosinophils Absolute Auto 0.1 X10*3/uL (0.0-0.4); Eosinophils Percent Auto 0.7 % (0-4); Hematocrit 45.2 % (42.0-52.0); Hemoglobin 15.2 g/dl (14.0-18.0); Imm Gran Abs Auto 0.03 X10*3/uL (0.00-0.03); Imm Gran Pct Auto 0.4 % (0.0-0.4); Lymphocytes Absolute Auto 1.5 X10*3/uL (1.2-4.9); Lymphocytes Percent Auto 20.2 % (20-40); Mean Corpuscular HGB Conc 33.6 g/dl (31.0-36.0); Mean Corpuscular Hemoglobin 33.1 pg (27.0-33.0); Mean Corpuscular Volume 98.5 fL (80.0-98.0); Monocytes Absolute Auto 0.5 X10*3/uL (0.1-1.2); Monocytes Percent Auto 6.5 % (2-11); Neutrophils Absolute Auto 5.5 x10*3/uL (2.0-8.3); Neutrophils Percent Auto 71.8 % (45-73); Platelet Count 201 X10*3/uL (160-400); Red Blood Count 4.59 X10*6/uL (4.60-5.80); Red Cell Distribution Width 12.7 % (11.0-16.0); White Blood Count 7.6 X10*3/uL (4.8-10.8)
[2022-08-19 11:50] LABS: Cholesterol 178 mg/dL; HDL Cholesterol 30 mg/dL; LDL Cholesterol Calculated 96 mg/dl; Triglycerides 262 mg/dL
== END 2022-08-19 09:25 | disposition home or self-care (01) ==
LOC: HO.LAB 09:24
PROVIDERS: Psychiatry & Neurology Psychiatry; Visit Provider Internal Medicine
DX: E78.5 Hyperlipidemia, unspecified (principal); Z79.899 Other long term (current) drug therapy
CPT/HCPCS: 36415; 80061; 85025

== ENCOUNTER 2022-09-18 08:33 | Outpatient (REF) | payer OTHER, SELFPAY ==
[2022-09-18 08:59] LABS: MANUAL DIFF FLAG NO
[2022-09-18 09:45] LABS: Basophils Percent Auto 0.3 % (0-2); Eosinophils Percent Auto 0.7 % (0-4); Hematocrit 43.7 % (42.0-52.0); Hemoglobin 14.5 g/dl (14.0-18.0); Imm Gran Abs Auto 0.03 X10*3/uL (0.00-0.03); Imm Gran Pct Auto 0.5 % (0.0-0.4); Lymphocytes Absolute Auto 1.7 X10*3/uL (1.2-4.9); Mean Corpuscular HGB Conc 33.2 g/dl (31.0-36.0); Mean Corpuscular Hemoglobin 32.9 pg (27.0-33.0); Mean Corpuscular Volume 99.1 fL (80.0-98.0); Mean Platelet Volume 10.8 fL (9.4-12.4); Monocytes Absolute Auto 0.6 X10*3/uL (0.1-1.2); Monocytes Percent Auto 9.7 % (2-11); Neutrophils Absolute Auto 3.5 x10*3/uL (2.0-8.3); Neutrophils Percent Auto 59.8 % (45-73); Platelet Count 167 X10*3/uL (160-400); Red Blood Count 4.41 X10*6/uL (4.60-5.80); Red Cell Distribution Width 12.3 % (11.0-16.0); White Blood Count 5.9 X10*3/uL (4.8-10.8)
== END 2022-09-18 08:34 | disposition home or self-care (01) ==
LOC: HO.LABR 08:33
PROVIDERS: PCP Internal Medicine; Visit Provider Psychiatry & Neurology Psychiatry
DX: Z79.899 Other long term (current) drug therapy (principal)
CPT/HCPCS: 36415; 85025

== ENCOUNTER 2022-10-22 07:54 | Outpatient (REF) | payer OTHER, SELFPAY ==
[2022-10-22 08:07] LABS: MANUAL DIFF FLAG NO
[2022-10-22 08:50] LABS: Basophils Percent Auto 0.5 % (0-2); Eosinophils Absolute Auto 0.1 X10*3/uL (0.0-0.4); Eosinophils Percent Auto 1.1 % (0-4); Hematocrit 45.1 % (42.0-52.0); Hemoglobin 15.2 g/dl (14.0-18.0); Imm Gran Abs Auto 0.02 X10*3/uL (0.00-0.03); Imm Gran Pct Auto 0.3 % (0.0-0.4); Lymphocytes Absolute Auto 2.1 X10*3/uL (1.2-4.9); Lymphocytes Percent Auto 33.2 % (20-40); Mean Corpuscular HGB Conc 33.7 g/dl (31.0-36.0); Mean Platelet Volume 11.3 fL (9.4-12.4); Monocytes Absolute Auto 0.5 X10*3/uL (0.1-1.2); Monocytes Percent Auto 8.4 % (2-11); Neutrophils Absolute Auto 3.5 x10*3/uL (2.0-8.3); Neutrophils Percent Auto 56.5 % (45-73); Platelet Count 162 X10*3/uL (160-400); Red Cell Distribution Width 12.1 % (11.0-16.0); White Blood Count 6.2 X10*3/uL (4.8-10.8)
== END 2022-10-22 07:55 | disposition home or self-care (01) ==
LOC: HO.LABR 07:54
PROVIDERS: PCP Internal Medicine; Visit Provider Psychiatry & Neurology Psychiatry
DX: Z79.899 Other long term (current) drug therapy (principal)
CPT/HCPCS: 36415; 85025

== ENCOUNTER 2022-11-12 11:42 | Outpatient (REF) | payer OTHER, SELFPAY ==
[2022-11-12 13:56] LABS: Carbamazepine Tegretol 13.5 mcg/mL (5.0-12.0)
[2022-11-16 07:54] LABS: Clozapine (Clozaril) 55 mcg/L; Norclozapine 59 mcg/L (25-400)
== END 2022-11-12 11:43 | disposition home or self-care (01) ==
LOC: HO.HMGCLDS 11:42
PROVIDERS: PCP Internal Medicine; Visit Provider Psychiatry & Neurology Psychiatry
DX: Z79.899 Other long term (current) drug therapy (principal)
CPT/HCPCS: 36415; 80156; 80159

== ENCOUNTER 2022-11-20 08:08 | Outpatient (REF) | payer OTHER, SELFPAY ==
[2022-11-20 08:17] LABS: MANUAL DIFF FLAG NO
[2022-11-20 09:26] LABS: Basophils Percent Auto 0.8 % (0-2); Eosinophils Absolute Auto 0.1 X10*3/uL (0.0-0.4); Eosinophils Percent Auto 1.4 % (0-4); Hematocrit 46.1 % (42.0-52.0); Hemoglobin 15.2 g/dl (14.0-18.0); Imm Gran Abs Auto 0.01 X10*3/uL (0.00-0.03); Imm Gran Pct Auto 0.2 % (0.0-0.4); Lymphocytes Absolute Auto 1.6 X10*3/uL (1.2-4.9); Lymphocytes Percent Auto 31.7 % (20-40); Mean Corpuscular Volume 100.2 fL (80.0-98.0); Mean Platelet Volume 11.5 fL (9.4-12.4); Monocytes Absolute Auto 0.4 X10*3/uL (0.1-1.2); Neut%MD 57.9 %; Neutrophils Absolute Auto 2.9 x10*3/uL (2.0-8.3); Neutrophils Percent Auto 57.9 % (45-73); Platelet Count 176 X10*3/uL (160-400); Red Cell Distribution Width 12.5 % (11.0-16.0)
[2022-11-20 11:12] LABS: Cholesterol 216 mg/dL (<200); HDL Cholesterol 40 mg/dL (>40); LDL Cholesterol Calculated 121 mg/dL (<100); Triglycerides 275 mg/dL (<150)
== END 2022-11-20 08:09 | disposition home or self-care (01) ==
LOC: HO.LABR 08:08
PROVIDERS: PCP Internal Medicine; Visit Provider Psychiatry & Neurology Psychiatry
DX: Z79.899 Other long term (current) drug therapy (principal); E78.5 Hyperlipidemia, unspecified
CPT/HCPCS: 36415; 80061; 85025

== ENCOUNTER 2022-11-24 12:56 | Outpatient (AMB) | payer OTHER, SELFPAY ==
[2022-11-24 12:58] VITALS: BP 124/82; PULSE 74; O2SAT 98; BMI 31.4
--- NOTE | 2022-11-24 12:58 | MHC.PC.OV ---
Vital Signs 11/24/22 12:58 Height 6 ft 3 in Weight 251 lb BMI 31.4 BP 124/82 Blood Pressure Location Lt brachial Position Sitting Pulse 74 Pulse Source Pulse Oximeter Pulse Oximetry (%) 98 Oxygen Delivery Method Room Air Intake Visit Reasons: [address] Assistant: Not Required per policy Accompanied by: Self / Same As Patient Allergies divalproex sodium [From DEPAKOTE] Allergy (Severe, Verified 11/24/22 12:58) PANCREATITIS haloperidol [From Haldol] Allergy (Intermediate, Verified 11/24/22 12:58) DYSTONIC REACTION Medication List - Last Reconciled 11/24/22 by Artemio Lopez MD albuterol sulfate 90 mcg/actuation (Ventolin HFA) 2 puffs inhalation Q4H PRN ascorbic acid (vitamin C) 250 mg PO DAILY atorvastatin 20 mg PO DAILY carbamazepine ER 800 mg (2 x 400 mg) PO BID clozapine 100 mg PO BEDTIME diphenhydramine HCl 50 mg (2 x 25 mg) PO Q6H PRN famotidine 20 mg PO BID fluticasone propion-salmeterol 250-50 mcg/dose 1 inh inhalation BID 30 days furosemide 40 mg See Protocol PO DAILY ibuprofen 600 mg PO Q6H PRN olanzapine 40 mg (2 x 20 mg) PO BEDTIME 30 days perphenazine 0 mg PO polyvinyl alcohol 1.4% (Artificial Tears (polyvinyl alcohol)) 2 drps ophthalmic (eye) Q4H PRN prazosin 2 mg PO BEDTIME simethicone (Gas Relief (simethicone)) 80 mg PO QIDWMHS PRN tamsulosin 0.4 mg PO BEDTIME trazodone 150 mg PO BEDTIME triamcinolone acetonide 0.5% 1 appl topical TID vitamin E (dl, acetate) 180 mg PO BID Tobacco use date assessed: 08/18/22 Dental Screening Dental Screen Date: 11/24/22 Did you have a dental visit in the last 12 months?: Yes Did you have a dental problem in the last 6 months where you did not have access to dental care?: No Was dental information given to patient?: Patient has dentist HPI 3 month follow up HPI Details hyperlipidemia rash and schizophrenia; sees psych PFSH Medical History Obesity Hx of pancreatitis Anxiety Difficulty sleeping Smoker Hyperlipidemia GERD (gastroesophageal reflux disease) Schizoaffective disorder COPD (chronic obstructive pulmonary disease) Elevated cholesterol Surgical History Hx of colonoscopy History of excision of mass History of bilateral cataract extraction History of bunionectomy Family History Father Diabetes Mother No problems noted. Paternal Grandfather Gastric cancer Social History Household Members: None Housing: Apartment Are you a primary healthcare social worker to a significant other at home: No Do you presently have visiting nurse or other home services: No Unable to assess alcohol history related to: Unknown Alcohol intake: current Alcohol intake frequency: holidays/special occasions only Alcohol type: beer Patient Tobacco Use Status: Former Tobacco user Quit Date: 12/2020 Tobacco use type: Cigarette Cigarettes Per Day: 0.5 Years Smoked: unknown e-Cigarette/Vaping Use: Never Used Second Hand Smoke Exposure: No service: No Current occupational status: disabled Sexual orientation: Straight/Heterosexual Cognitive needs: No Hearing needs: No Vision needs: No Questionnaire PHQ-9 Over the last 2 weeks, how often have you been bothered by any of the following problems? 1. Little interest or pleasure in doing things: not at all 2. Feeling down, depressed, or hopeless: not at all 3. Trouble falling or staying asleep, or sleeping too much: not at all 4. Feeling tired or having little energy: not at all 5. Poor appetite or overeating: not at all 6. Feeling bad about yourself - or that you are a failure or have let yourself or your family down: not at all 7. Trouble concentrating on things, such as reading the newspaper or watching television: not at all 8. Moving or speaking so slowly that other people could have noticed. Or the opposite - being so fidgety or restless that you have been moving around a lot more than usual: not at all 9. Thoughts that you would be better off or of hurting yourself in some way: not at all Total score: 0 Depression Screening Interpretation: Negative 93812 - PHQ-9 Billing: Yes Source: Developed by Drs. Jaswinder Garcia, Fior Benites, Griffin Corea and colleagues, with an educational sharan from [employer]. Thrive Questionnaire Date Thrive assessed: 08/18/22 AUDIT C Alcohol Use Questionnaire (AUDIT-C) 1. How often do you have a drink containing alcohol?: 2-3 times a week 2. How many drinks containing alcohol do you have on a typical day when you are drinking?: 1 or 2 3. How often do you have six or more drinks on one occasion?: Never Total Score: 3 Score Reviewed/Action Taken: Yes MARISSA-7 AMB Questionnaire MARISSA-7 Date MARISSA - 7 assessed: 08/18/22 Source: Developed by Drs. Jaswinder Garcia, Fior Benites, Griffin Corea and colleagues, with an educational sharan from [employer]. Review of Systems Const Denies chills, Denies headache(s) and Denies weight loss ENT Denies headache(s) Card Denies chest pain, Denies syncope, Denies irregular heart rhythm and Denies dyspnea Resp Denies chest congestion, Denies cough and Denies dyspnea GI Denies abdominal pain, Denies change in stool character, Denies nausea and Denies vomiting Musc Denies deformity and Denies joint swelling Neuro Denies syncope and Denies headache(s) Physical exam (Primary Care) Vital Signs: Last Vital Signs Pulse 74 11/24/22 12:58 BP 124/82 11/24/22 12:58 Pulse Ox 98 11/24/22 12:58 Oxygen Delivery Method Room Air 11/24/22 12:58 BMI result Body Mass Index 31.4 Tobacco/Smoking Status: Tobacco use Status Tobacco use date assessed 08/18/22 11/24/22 13:03 Patient Tobacco Use Status Former Tobacco user 11/24/22 13:03 Tobacco use type Cigarette 11/24/22 13:03 e-Cigarette/Vaping Use Never Used 11/24/22 13:03 PHQ-9: PHQ-9 Score PHQ-9: Total score 0 11/24/22 13:03 Depression Screening Interpretation: Negative Thrive Assessment: Date of Thrive Assessment Date Thrive assessed 08/18/22 11/24/22 13:03 Const General: cooperative, comfortable, no acute distress and alert Neck Neck: Yes no lymphadenopathy Thyroid: Thyroid normal Resp Effort & Inspection: normal respiratory effort Auscultation: clear to auscultation bilaterally Percussion: percussion normal Cardio Jugular venous distension: no JVD Palpation: normal PMI Rate: regular rate Rhythm: regular rhythm Heart sounds: S1 normal heart sound present and S2 normal heart sound present GI Inspection: Yes normal to inspection Palpation (GI): No hepatosplenomegaly present Skin General skin exam: no rashes or lesions noted Extrem General: Yes no clubbing, cyanosis or edema Assessment and Plan Assessment & Plan (1) Contact dermatitis: Code(s): L25.9 - Unspecified contact dermatitis, unspecified cause Plan: stable; same rx (2) Schizoaffective disorder: Code(s): F25.9 - Schizoaffective disorder, unspecified Plan: per psych (3) Hyperlipidemia: Code(s): E78.5 - Hyperlipidemia, unspecified Plan: stable Orders: Orders Comprehensive [place]. Panel Fast Today N28.9 - Disorder of kidney and ureter, unspecified Complete Blood Count Auto Diff Today D64.9 - Anemia, unspecified Lipid Panel Today E78.5 - Hyperlipidemia, unspecified Referrals Dermatology Referral R21 - Rash and other nonspecific skin eruption Coding Level of Care Code Est Pt Level 4 (47454) Diagnoses Contact dermatitis L25.9 Schizoaffective disorder F25.9 Hyperlipidemia E78.5
== END 2022-11-24 13:13 | disposition home or self-care (01) ==
PROVIDERS: PCP Internal Medicine; Visit Provider Internal Medicine
DX: L25.9 Unspecified contact dermatitis, unspecified cause (principal); F25.9 Schizoaffective disorder, unspecified; E78.5 Hyperlipidemia, unspecified
CPT/HCPCS: 99214

== ENCOUNTER 2022-12-18 09:30 | Outpatient (REF) | payer OTHER, SELFPAY ==
[2022-12-18 09:53] LABS: MANUAL DIFF FLAG NO
[2022-12-18 11:25] LABS: Basophils Absolute Auto 0.1 X10*3/uL (0.0-0.2); Basophils Percent Auto 0.8 % (0-2); Eosinophils Absolute Auto 0.1 X10*3/uL (0.0-0.4); Eosinophils Percent Auto 0.8 % (0-4); Hematocrit 44.8 % (42.0-52.0); Hemoglobin 15.1 g/dl (14.0-18.0); Imm Gran Abs Auto 0.02 X10*3/uL (0.00-0.03); Imm Gran Pct Auto 0.3 % (0.0-0.4); Lymphocytes Absolute Auto 1.8 X10*3/uL (1.2-4.9); Mean Corpuscular HGB Conc 33.7 g/dl (31.0-36.0); Mean Corpuscular Hemoglobin 32.9 pg (27.0-33.0); Mean Corpuscular Volume 97.6 fL (80.0-98.0); Mean Platelet Volume 11.6 fL (9.4-12.4); Monocytes Absolute Auto 0.5 X10*3/uL (0.1-1.2); Monocytes Percent Auto 7.8 % (2-11); Neutrophils Percent Auto 62.3 % (45-73); Platelet Count 176 X10*3/uL (160-400); Red Blood Count 4.59 X10*6/uL (4.60-5.80); Red Cell Distribution Width 12.2 % (11.0-16.0); White Blood Count 6.4 X10*3/uL (4.8-10.8)
== END 2022-12-18 09:31 | disposition home or self-care (01) ==
LOC: HO.LABR 09:30
PROVIDERS: PCP Internal Medicine; Visit Provider Psychiatry & Neurology Psychiatry
DX: Z79.899 Other long term (current) drug therapy (principal)
CPT/HCPCS: 36415; 85025

== ENCOUNTER 2023-01-19 14:38 | Outpatient (REF) | payer OTHER, SELFPAY ==
[2023-01-19 14:51] LABS: MANUAL DIFF FLAG NO
[2023-01-19 15:02] LABS: Basophils Percent Auto 0.6 % (0-2); Eosinophils Percent Auto 0.6 % (0-4); Hematocrit 45.5 % (42.0-52.0); Hemoglobin 15.4 g/dl (14.0-18.0); Imm Gran Abs Auto 0.03 X10*3/uL (0.00-0.03); Imm Gran Pct Auto 0.6 % (0.0-0.4); Lymphocytes Absolute Auto 1.4 X10*3/uL (1.2-4.9); Mean Corpuscular HGB Conc 33.8 g/dl (31.0-36.0); Mean Corpuscular Hemoglobin 33.8 pg (27.0-33.0); Mean Corpuscular Volume 99.8 fL (80.0-98.0); Mean Platelet Volume 10.9 fL (9.4-12.4); Monocytes Absolute Auto 0.4 X10*3/uL (0.1-1.2); Monocytes Percent Auto 7.1 % (2-11); Neutrophils Absolute Auto 3.3 x10*3/uL (2.0-8.3); Neutrophils Percent Auto 64.1 % (45-73); Platelet Count 166 X10*3/uL (160-400); Red Blood Count 4.56 X10*6/uL (4.60-5.80); Red Cell Distribution Width 12.5 % (11.0-16.0); White Blood Count 5.2 X10*3/uL (4.8-10.8)
== END 2023-01-19 14:39 | disposition home or self-care (01) ==
LOC: HO.LABR 14:38
PROVIDERS: Visit Provider Psychiatry & Neurology Psychiatry
DX: Z79.899 Other long term (current) drug therapy (principal)
CPT/HCPCS: 36415; 85025

== ENCOUNTER 2023-02-12 07:46 | Outpatient (REF) | payer OTHER, SELFPAY ==
[2023-02-12 08:05] LABS: MANUAL DIFF FLAG NO
[2023-02-12 09:07] LABS: Basophils Percent Auto 0.5 % (0-2); Eosinophils Absolute Auto 0.1 X10*3/uL (0.0-0.4); Eosinophils Percent Auto 0.9 % (0-4); Hematocrit 46.8 % (42.0-52.0); Hemoglobin 15.6 g/dl (14.0-18.0); Imm Gran Abs Auto 0.03 X10*3/uL (0.00-0.03); Imm Gran Pct Auto 0.5 % (0.0-0.4); Lymphocytes Absolute Auto 1.4 X10*3/uL (1.2-4.9); Lymphocytes Percent Auto 25.8 % (20-40); Mean Corpuscular HGB Conc 33.3 g/dl (31.0-36.0); Mean Corpuscular Volume 98.9 fL (80.0-98.0); Mean Platelet Volume 11.4 fL (9.4-12.4); Monocytes Absolute Auto 0.4 X10*3/uL (0.1-1.2); Monocytes Percent Auto 7.4 % (2-11); Neutrophils Absolute Auto 3.6 x10*3/uL (2.0-8.3); Neutrophils Percent Auto 64.9 % (45-73); Platelet Count 156 X10*3/uL (160-400); Red Blood Count 4.73 X10*6/uL (4.60-5.80); Red Cell Distribution Width 12.4 % (11.0-16.0); White Blood Count 5.6 X10*3/uL (4.8-10.8)
[2023-02-12 09:18] LABS: Alanine Aminotransferase 34 U/L (0-40); Alkaline Phosphatase 91 U/L (39-117); Anion Gap 11 (12-20); Aspartate Amino Transferase 23 U/L (5-37); Bilirubin Total 0.4 mg/dL (0.0-1.0); Blood Urea Nitrogen 12 mg/dL (9-16); Carbon Dioxide 25 mmol/L (22-29); Chloride 111 mmol/L (96-108); Cholesterol 174 mg/dL (<200); Estimated Glomerular Filt Rate > 60; Glucose Fasting 91 mg/dL (60-99); HDL Cholesterol 34 mg/dL (>40); LDL Cholesterol Calculated 86 mg/dL (<100); Potassium 4.1 mmol/L (3.3-5.1); Sodium 143 mmol/L (135-145); Total Protein 6.6 g/dL (6.5-8.0); Triglycerides 274 mg/dL (<150)
== END 2023-02-12 07:47 | disposition home or self-care (01) ==
LOC: HO.LAB 07:46
PROVIDERS: PCP Internal Medicine; Visit Provider Internal Medicine
DX: N28.9 Disorder of kidney and ureter, unspecified (principal); D64.9 Anemia, unspecified; E78.5 Hyperlipidemia, unspecified
CPT/HCPCS: 36415; 80053; 80061; 85025

== ENCOUNTER 2023-02-16 12:42 | Outpatient (AMB) | payer OTHER, SELFPAY ==
[2023-02-16 12:44] VITALS: BP 102/70; PULSE 78; O2SAT 98; BMI 33.1
--- NOTE | 2023-02-16 12:44 | MHC.PC.OV ---
Vital Signs 02/16/23 12:44 Height 6 ft 3 in Weight 265 lb BMI 33.1 BP 102/70 Blood Pressure Location Lt brachial Position Sitting Pulse 78 Pulse Source Pulse Oximeter Pulse Oximetry (%) 98 Oxygen Delivery Method Room Air Intake Visit Reasons: Annual Exam Regional Truck Driver Required: No Fabric Coating Supervisor: Not Required per policy Accompanied by: Self / Same As Patient Allergies divalproex sodium [From DEPAKOTE] Allergy (Severe, Verified 02/16/23 12:45) PANCREATITIS haloperidol [From Haldol] Allergy (Intermediate, Verified 02/16/23 12:45) DYSTONIC REACTION Medication List - Last Reconciled 02/16/23 by Artemio Lopez MD albuterol sulfate 90 mcg/actuation (Ventolin HFA) 2 puffs inhalation Q4H PRN ascorbic acid (vitamin C) 250 mg PO DAILY atorvastatin 20 mg PO DAILY carbamazepine ER 800 mg (2 x 400 mg) PO BID clozapine 100 mg PO BEDTIME diphenhydramine HCl 50 mg (2 x 25 mg) PO Q6H PRN famotidine 20 mg PO BID fluticasone propion-salmeterol 250-50 mcg/dose 1 inh inhalation BID 30 days furosemide 40 mg See Protocol PO DAILY ibuprofen 600 mg PO Q6H PRN olanzapine 40 mg (2 x 20 mg) PO BEDTIME 30 days perphenazine 0 mg PO polyvinyl alcohol 1.4% (Artificial Tears (polyvinyl alcohol)) 2 drps ophthalmic (eye) Q4H PRN prazosin 2 mg PO BEDTIME simethicone (Gas Relief (simethicone)) 80 mg PO QIDWMHS PRN tamsulosin 0.4 mg PO BEDTIME trazodone 150 mg PO BEDTIME triamcinolone acetonide 0.5% 1 appl topical TID vitamin E (dl, acetate) 180 mg PO BID Tobacco use date assessed: 08/18/22 Dental Screening Dental Screen Date: 02/16/23 Did you have a dental visit in the last 12 months?: Yes Did you have a dental problem in the last 6 months where you did not have access to dental care?: No Was dental information given to patient?: Patient has dentist HPI Annual Exam HPI Details hyperlip and schizophrenia; sees psych; doing well PFSH Medical History Obesity Hx of pancreatitis Anxiety Difficulty sleeping Smoker Hyperlipidemia GERD (gastroesophageal reflux disease) Schizoaffective disorder COPD (chronic obstructive pulmonary disease) Elevated cholesterol Surgical History Hx of colonoscopy History of excision of mass History of bilateral cataract extraction History of bunionectomy Family History Father Diabetes Mother No problems noted. Paternal Grandfather Gastric cancer Social History Household Members: None Housing: Apartment Are you a primary healthcare liaison to a significant other at home: No Do you presently have visiting nurse or other home services: No Unable to assess alcohol history related to: Unknown Alcohol intake: current Alcohol intake frequency: holidays/special occasions only Alcohol type: beer Comment: ALEEP NO SOB NOTED Patient Tobacco Use Status: Former Tobacco user Quit Date: 12/2020 Tobacco use type: Cigarette Cigarettes Per Day: 0.5 Years Smoked: unknown e-Cigarette/Vaping Use: Never Used Second Hand Smoke Exposure: No service: No Current occupational status: disabled Sexual orientation: Straight/Heterosexual Cognitive needs: No Hearing needs: No Vision needs: No Questionnaire Thrive Questionnaire Date Thrive assessed: 08/18/22 MARISSA-7 AMB Questionnaire MARISSA-7 Date MARISSA - 7 assessed: 08/18/22 Source: Developed by Drs. Jaswinder Garcia, Fior Benites, Griffin Corea and colleagues, with an educational sharan from [employer]. Review of Systems Const Denies chills, Denies fatigue, Denies headache(s) and Denies weight loss Eyes Denies change in vision, Denies diplopia and Denies eye pain ENT Denies vertigo, Denies dizziness, Denies headache(s) and Denies nasal discharge Card Denies chest pain, Denies rapid heart rate and Denies dyspnea on exertion Resp Denies chest congestion, Denies cough, Denies pain with cough and Denies dyspnea on exertion GI Denies abdominal pain, Denies hematochezia and Denies change in bowel habits Musc Denies myalgias, Denies arthralgias and Denies joint swelling Skin/Breast Denies lesions and Denies unusual bruising Neuro Denies vertigo, Denies dizziness, Denies headache(s) and Denies focal weakness Endo Denies fatigue Physical exam (Primary Care) Vital Signs: Last Vital Signs Pulse 78 02/16/23 12:44 BP 102/70 02/16/23 12:44 Pulse Ox 98 02/16/23 12:44 Oxygen Delivery Method Room Air 02/16/23 12:44 BMI result Body Mass Index 33.1 Tobacco/Smoking Status: Tobacco use Status Tobacco use date assessed 08/18/22 02/16/23 12:46 Patient Tobacco Use Status Former Tobacco user 02/16/23 12:46 Tobacco use type Cigarette 02/16/23 12:46 e-Cigarette/Vaping Use Never Used 02/16/23 12:46 Thrive Assessment: Date of Thrive Assessment Date Thrive assessed 08/18/22 02/16/23 12:46 Const General: cooperative, healthy appearing and no acute distress Orientation/consciousness: oriented to person, oriented to place and oriented to time HENMT Head: Yes normal to inspection, Yes normocephalic and Yes atraumatic Mouth: Normal oral and palatal mucosa present and tongue normal Throat: Yes posterior oropharynx normal and Yes uvula midline Eyes General: appearance normal, both eyes and all related structures Neck Neck: Yes normal visual inspection, Yes full ROM and Yes no lymphadenopathy Thyroid: Thyroid normal Carotids: normal carotid upstroke Chest Chest palpation & inspection: normal inspection of the chest Resp Effort & Inspection: normal respiratory effort and able to speak in complete sentences Auscultation: clear to auscultation bilaterally Cardio Jugular venous distension: no JVD Palpation: normal PMI Rate: regular rate Rhythm: regular rhythm Heart sounds: S1 normal heart sound present and S2 normal heart sound present GI Inspection: Yes normal to inspection Palpation (GI): Soft to palpation and No hepatosplenomegaly present Auscultation: normal bowel sounds General: Yes no CVA tenderness Back/Spine/Pelvis Back: no CVA tenderness Skin General skin exam: no rashes or lesions noted Neuro General: oriented to person, oriented to place and oriented to time Extrem General: Yes normal to inspection and Yes full ROM Assessment and Plan Assessment & Plan (1) Physical exam: Code(s): Z00.00 - Encounter for general adult medical examination without abnormal findings Plan: stable (2) Hyperlipidemia: Code(s): E78.5 - Hyperlipidemia, unspecified Plan: do labs (3) Schizoaffective disorder: Code(s): F25.9 - Schizoaffective disorder, unspecified Plan: as per psych Orders: Orders Lipid Panel Today E78.5 - Hyperlipidemia, unspecified Coding Level of Care Code Est Pt Prev Care 40-64y(24464) Diagnoses Physical exam Z00.00 Hyperlipidemia E78.5 Schizoaffective disorder F25.9
== END 2023-02-16 13:06 | disposition home or self-care (01) ==
PROVIDERS: Visit Provider Internal Medicine
DX: Z00.00 Encounter for general adult medical examination without abnormal findings (principal); E78.5 Hyperlipidemia, unspecified; F25.9 Schizoaffective disorder, unspecified
CPT/HCPCS: 99396

== ENCOUNTER 2023-02-18 08:10 | Outpatient (REF) | payer OTHER, SELFPAY ==
[2023-02-18 08:23] LABS: MANUAL DIFF FLAG NO
[2023-02-18 08:32] LABS: Basophils Percent Auto 0.4 % (0-2); Eosinophils Percent Auto 0.6 % (0-4); Hematocrit 46.1 % (42.0-52.0); Hemoglobin 15.5 g/dl (14.0-18.0); Imm Gran Abs Auto 0.02 X10*3/uL (0.00-0.03); Imm Gran Pct Auto 0.4 % (0.0-0.4); Lymphocytes Absolute Auto 1.4 X10*3/uL (1.2-4.9); Lymphocytes Percent Auto 28.5 % (20-40); Mean Corpuscular HGB Conc 33.6 g/dl (31.0-36.0); Mean Corpuscular Hemoglobin 33.5 pg (27.0-33.0); Mean Corpuscular Volume 99.6 fL (80.0-98.0); Mean Platelet Volume 10.7 fL (9.4-12.4); Monocytes Absolute Auto 0.3 X10*3/uL (0.1-1.2); Monocytes Percent Auto 5.8 % (2-11); Neutrophils Absolute Auto 3.1 x10*3/uL (2.0-8.3); Neutrophils Percent Auto 64.3 % (45-73); Platelet Count 158 X10*3/uL (160-400); Red Blood Count 4.63 X10*6/uL (4.60-5.80); Red Cell Distribution Width 12.5 % (11.0-16.0); White Blood Count 4.8 X10*3/uL (4.8-10.8)
== END 2023-02-18 08:11 | disposition home or self-care (01) ==
LOC: HO.LABR 08:10
PROVIDERS: PCP Internal Medicine; Visit Provider Psychiatry & Neurology Psychiatry
DX: Z79.899 Other long term (current) drug therapy (principal)
CPT/HCPCS: 36415; 85025

== ENCOUNTER 2023-03-19 08:22 | Outpatient (REF) | payer OTHER, SELFPAY ==
[2023-03-19 08:45] LABS: MANUAL DIFF FLAG NO
[2023-03-19 08:50] LABS: Basophils Percent Auto 0.6 % (0-2); Eosinophils Absolute Auto 0.1 X10*3/uL (0.0-0.4); Eosinophils Percent Auto 1.4 % (0-4); Hematocrit 44.1 % (42.0-52.0); Hemoglobin 14.9 g/dl (14.0-18.0); Imm Gran Abs Auto 0.03 X10*3/uL (0.00-0.03); Imm Gran Pct Auto 0.6 % (0.0-0.4); Lymphocytes Absolute Auto 1.8 X10*3/uL (1.2-4.9); Lymphocytes Percent Auto 35.2 % (20-40); Mean Corpuscular HGB Conc 33.8 g/dl (31.0-36.0); Mean Corpuscular Volume 100.7 fL (80.0-98.0); Mean Platelet Volume 10.3 fL (9.4-12.4); Monocytes Absolute Auto 0.4 X10*3/uL (0.1-1.2); Monocytes Percent Auto 8.2 % (2-11); Neutrophils Absolute Auto 2.8 x10*3/uL (2.0-8.3); Platelet Count 163 X10*3/uL (160-400); Red Blood Count 4.38 X10*6/uL (4.60-5.80); Red Cell Distribution Width 12.5 % (11.0-16.0); White Blood Count 5.1 X10*3/uL (4.8-10.8)
== END 2023-03-19 08:23 | disposition home or self-care (01) ==
LOC: HO.LABR 08:22
PROVIDERS: PCP Internal Medicine; Visit Provider Psychiatry & Neurology Psychiatry
DX: Z79.899 Other long term (current) drug therapy (principal)
CPT/HCPCS: 36415; 85025

== ENCOUNTER 2023-04-21 08:10 | Outpatient (REF) | payer OTHER, SELFPAY ==
[2023-04-21 08:20] LABS: MANUAL DIFF FLAG NO
[2023-04-21 08:42] LABS: Basophils Percent Auto 0.5 % (0-2); Eosinophils Absolute Auto 0.1 X10*3/uL (0.0-0.4); Eosinophils Percent Auto 1.4 % (0-4); Hematocrit 47.8 % (42.0-52.0); Hemoglobin 15.9 g/dl (14.0-18.0); Imm Gran Abs Auto 0.03 X10*3/uL (0.00-0.03); Imm Gran Pct Auto 0.5 % (0.0-0.4); Lymphocytes Absolute Auto 1.9 X10*3/uL (1.2-4.9); Lymphocytes Percent Auto 32.6 % (20-40); Mean Corpuscular HGB Conc 33.3 g/dl (31.0-36.0); Mean Corpuscular Hemoglobin 33.3 pg (27.0-33.0); Mean Corpuscular Volume 100.2 fL (80.0-98.0); Mean Platelet Volume 10.9 fL (9.4-12.4); Monocytes Absolute Auto 0.5 X10*3/uL (0.1-1.2); Monocytes Percent Auto 8.1 % (2-11); Neutrophils Absolute Auto 3.3 x10*3/uL (2.0-8.3); Neutrophils Percent Auto 56.9 % (45-73); Platelet Count 178 X10*3/uL (160-400); Red Blood Count 4.77 X10*6/uL (4.60-5.80); Red Cell Distribution Width 12.2 % (11.0-16.0); White Blood Count 5.8 X10*3/uL (4.8-10.8)
== END 2023-04-21 08:11 | disposition home or self-care (01) ==
LOC: HO.LABR 08:10
PROVIDERS: PCP Internal Medicine; Visit Provider Psychiatry & Neurology Psychiatry
DX: Z79.899 Other long term (current) drug therapy (principal)
CPT/HCPCS: 36415; 85025

== ENCOUNTER 2023-05-21 10:07 | Outpatient (REF) | payer OTHER, SELFPAY ==
[2023-05-21 10:20] LABS: MANUAL DIFF FLAG NO
[2023-05-21 10:49] LABS: Basophils Percent Auto 0.5 % (0-2); Eosinophils Absolute Auto 0.1 X10*3/uL (0.0-0.4); Eosinophils Percent Auto 0.8 % (0-4); Hematocrit 48.5 % (42.0-52.0); Hemoglobin 16.6 g/dl (14.0-18.0); Imm Gran Abs Auto 0.02 X10*3/uL (0.00-0.03); Imm Gran Pct Auto 0.3 % (0.0-0.4); Lymphocytes Absolute Auto 1.9 X10*3/uL (1.2-4.9); Mean Corpuscular HGB Conc 34.2 g/dl (31.0-36.0); Mean Corpuscular Hemoglobin 33.4 pg (27.0-33.0); Mean Corpuscular Volume 97.6 fL (80.0-98.0); Mean Platelet Volume 10.7 fL (9.4-12.4); Monocytes Absolute Auto 0.5 X10*3/uL (0.1-1.2); Monocytes Percent Auto 7.5 % (2-11); Neutrophils Absolute Auto 3.6 x10*3/uL (2.0-8.3); Neutrophils Percent Auto 59.9 % (45-73); Platelet Count 165 X10*3/uL (160-400); Red Blood Count 4.97 X10*6/uL (4.60-5.80); Red Cell Distribution Width 12.1 % (11.0-16.0)
== END 2023-05-21 10:08 | disposition home or self-care (01) ==
LOC: HO.LAB 10:07
PROVIDERS: PCP Internal Medicine; Visit Provider Psychiatry & Neurology Psychiatry
DX: Z79.899 Other long term (current) drug therapy (principal)
CPT/HCPCS: 36415; 85025

== ENCOUNTER 2023-06-22 08:08 | Outpatient (REF) | payer OTHER, SELFPAY ==
[2023-06-22 08:37] LABS: MANUAL DIFF FLAG NO
[2023-06-22 09:09] LABS: Basophils Percent Auto 0.5 % (0-2); Eosinophils Percent Auto 0.6 % (0-4); Hematocrit 48.9 % (42.0-52.0); Hemoglobin 16.3 g/dl (14.0-18.0); Imm Gran Abs Auto 0.03 X10*3/uL (0.00-0.03); Imm Gran Pct Auto 0.5 % (0.0-0.4); Lymphocytes Absolute Auto 1.9 X10*3/uL (1.2-4.9); Lymphocytes Percent Auto 28.9 % (20-40); Mean Corpuscular HGB Conc 33.3 g/dl (31.0-36.0); Mean Corpuscular Hemoglobin 33.2 pg (27.0-33.0); Mean Corpuscular Volume 99.6 fL (80.0-98.0); Mean Platelet Volume 10.4 fL (9.4-12.4); Monocytes Absolute Auto 0.5 X10*3/uL (0.1-1.2); Monocytes Percent Auto 7.1 % (2-11); Neutrophils Absolute Auto 4.2 x10*3/uL (2.0-8.3); Neutrophils Percent Auto 62.4 % (45-73); Platelet Count 164 X10*3/uL (160-400); Red Blood Count 4.91 X10*6/uL (4.60-5.80); Red Cell Distribution Width 12.4 % (11.0-16.0); White Blood Count 6.7 X10*3/uL (4.8-10.8)
== END 2023-06-22 08:09 | disposition home or self-care (01) ==
LOC: HO.LABR 08:08
PROVIDERS: Visit Provider Psychiatry & Neurology Psychiatry
DX: Z79.899 Other long term (current) drug therapy (principal)
CPT/HCPCS: 36415; 85025

== ENCOUNTER 2023-06-29 11:18 | Outpatient (AMB) | payer OTHER, SELFPAY ==
--- NOTE | 2023-06-29 11:24 | A.OFFPC_ITS ---
Vital Signs 06/29/23 11:25 Height 6 ft 3 in Weight 270 lb BMI 33.7 BP 118/70 Blood Pressure Location Lt brachial Position Sitting Pulse 70 Pulse Source Pulse Oximeter Pulse Oximetry (%) 98 Oxygen Delivery Method Room Air Intake Visit Reasons: 3mth f/u Customs Manager Required: No Leasing Property Manager: Not Required per policy Accompanied by: Self / Same As Patient Allergies divalproex sodium [From DEPAKOTE] Allergy (Severe, Verified 06/29/23 11:25) PANCREATITIS haloperidol [From Haldol] Allergy (Intermediate, Verified 06/29/23 11:25) DYSTONIC REACTION lithium Adverse Reaction (Verified 06/29/23 11:30) Unknown Medication List - Last Reconciled 06/29/23 by Artemio Lopez MD albuterol sulfate 90 mcg/actuation (Ventolin HFA) 2 puffs inhalation Q4H PRN ascorbic acid (vitamin C) 250 mg PO DAILY atorvastatin 20 mg PO DAILY carbamazepine ER 800 mg (2 x 400 mg) PO BID clozapine 100 mg PO BEDTIME diphenhydramine HCl 50 mg (2 x 25 mg) PO Q6H PRN famotidine 20 mg PO BID fluticasone propion-salmeterol 250-50 mcg/dose 1 inh inhalation BID 30 days furosemide 40 mg See Protocol PO DAILY ibuprofen 600 mg PO Q6H PRN olanzapine 40 mg (2 x 20 mg) PO BEDTIME 30 days perphenazine 0 mg PO polyvinyl alcohol 1.4% (Artificial Tears (polyvinyl alcohol)) 2 drps ophthalmic (eye) Q4H PRN prazosin 2 mg PO BEDTIME simethicone (Gas Relief (simethicone)) 80 mg PO QIDWMHS PRN tamsulosin 0.4 mg PO BEDTIME trazodone 150 mg PO BEDTIME triamcinolone acetonide 0.5% 1 appl topical TID vitamin E (dl, acetate) 180 mg PO BID Tobacco use date assessed: 06/29/23 Dental Screening Dental Screen Date: 06/29/23 Did you have a dental visit in the last 12 months?: Yes Did you have a dental problem in the last 6 months where you did not have access to dental care?: No Was dental information given to patient?: Patient has dentist HPI 3mth f/u HPI Details hyperlipidemia on rx; compliant; due for labs PFSH Medical History Obesity Hx of pancreatitis Anxiety Difficulty sleeping Smoker Hyperlipidemia GERD (gastroesophageal reflux disease) Schizoaffective disorder COPD (chronic obstructive pulmonary disease) Elevated cholesterol Surgical History Hx of colonoscopy History of excision of mass History of bilateral cataract extraction History of bunionectomy Family History Father Diabetes Mother No problems noted. Paternal Grandfather Gastric cancer Social History Household Members: None Housing: Apartment Are you a primary palliative care nurse to a significant other at home: No Do you presently have visiting nurse or other home services: No Unable to assess alcohol history related to: Unknown Alcohol intake: current Alcohol intake frequency: holidays/special occasions only Alcohol type: beer Comment: ALEEP NO SOB NOTED Patient Tobacco Use Status: Former Tobacco user Quit Date: 12/2020 Tobacco use type: Cigarette Cigarettes Per Day: 0.5 Years Smoked: unknown e-Cigarette/Vaping Use: Never Used Second Hand Smoke Exposure: No service: No Current occupational status: disabled Sexual orientation: Straight/Heterosexual Cognitive needs: No Hearing needs: No Vision needs: No Questionnaire PHQ-9 Over the last 2 weeks, how often have you been bothered by any of the following problems? 1. Little interest or pleasure in doing things: not at all 2. Feeling down, depressed, or hopeless: not at all 3. Trouble falling or staying asleep, or sleeping too much: not at all 4. Feeling tired or having little energy: not at all 5. Poor appetite or overeating: not at all 6. Feeling bad about yourself - or that you are a failure or have let yourself or your family down: not at all 7. Trouble concentrating on things, such as reading the newspaper or watching television: not at all 8. Moving or speaking so slowly that other people could have noticed. Or the opposite - being so fidgety or restless that you have been moving around a lot more than usual: not at all 9. Thoughts that you would be better off or of hurting yourself in some way: not at all Total score: 0 Depression Screening Interpretation: Negative Depression Screening Done: Yes 85508 - PHQ-9 Billing: Yes Source: Developed by Drs. Jaswinder Garcia, Fior Benites, Griffin Corea and colleagues, with an educational sharan from [facility]. Thrive Questionnaire Date Thrive assessed: 06/29/23 I am a: Patient What is your living situation today?: I have a steady place to live Within the past 12 months, did the food you bought not last and you didn't have the money to get more?: Never true Within the past 12 months, did you worry whether your food would run out before you got money to buy more?: Never true Do you have trouble paying for medicines?: No Do you have trouble getting transportation to medical appointments?: No Do you have trouble paying your heating and electricity bill?: No Do you have trouble taking care of your child, family member or friend?: No Do you have trouble with day-to-day activities such as bathing, preparing meals, shopping, managing finances, etc.?: No Are you currently unemployed and looking for a job?: No Are you interested in more education?: No Please select the resources that you would like help with: None THRIVE Score: 0 AUDIT C Alcohol Use Questionnaire (AUDIT-C) 1. How often do you have a drink containing alcohol?: 2-3 times a week 2. How many drinks containing alcohol do you have on a typical day when you are drinking?: 1 or 2 3. How often do you have six or more drinks on one occasion?: Never Total Score: 3 Score Reviewed/Action Taken: Yes MARISSA-7 AMB Questionnaire MARISSA-7 Date MARISSA - 7 assessed: 06/29/23 Feeling nervous, anxious, or on edge: 0 = Not at all Not being able to stop or control worryin = Not at all Worrying too much about different things: 0 = Not at all Trouble relaxin = Not at all Being so restless that it is hard to sit still: 0 = Not at all Becoming easily annoyed or irritable: 0 = Not at all Feeling afraid as if something awful might happen: 0 = Not at all Total MARISSA-7 score (0-4 normal; 5-9 mild; 10-14 moderate; 15-21 severe): 0 Source: Developed by Drs. Jaswinder Garcia, Fior Benites, Griffin Corea and colleagues, with an educational sharan from [facility]. Review of Systems Const Denies chills, Denies headache(s) and Denies weight loss ENT Denies headache(s) Card Denies chest pain, Denies syncope, Denies irregular heart rhythm and Denies dyspnea Resp Denies chest congestion, Denies cough and Denies dyspnea GI Denies abdominal pain, Denies change in stool character, Denies nausea and Denies vomiting Musc Denies deformity and Denies joint swelling Neuro Denies syncope and Denies headache(s) Physical exam (Primary Care) Vital Signs: Last Vital Signs Pulse 70 06/29/23 11:25 BP 118/70 06/29/23 11:25 Pulse Ox 98 06/29/23 11:25 Oxygen Delivery Method Room Air 06/29/23 11:25 BMI result Body Mass Index 33.7 Tobacco/Smoking Status: Tobacco use Status Tobacco use date assessed 06/29/23 06/29/23 11:26 Patient Tobacco Use Status Former Tobacco user 06/29/23 11:26 Tobacco use type Cigarette 06/29/23 11:26 e-Cigarette/Vaping Use Never Used 06/29/23 11:26 PHQ-9: PHQ-9 Score PHQ-9: Total score 0 06/29/23 11:26 Depression Screening Interpretation: Negative Thrive Assessment: Date of Thrive Assessment Date Thrive assessed 06/29/23 06/29/23 11:26 Const General: cooperative, comfortable, no acute distress and alert Neck Neck: Yes no lymphadenopathy Thyroid: Thyroid normal Resp Effort & Inspection: normal respiratory effort Auscultation: clear to auscultation bilaterally Percussion: percussion normal Cardio Jugular venous distension: no JVD Palpation: normal PMI Rate: regular rate Rhythm: regular rhythm Heart sounds: S1 normal heart sound present and S2 normal heart sound present GI Inspection: Yes normal to inspection Palpation (GI): No hepatosplenomegaly present Skin General skin exam: no rashes or lesions noted Extrem General: Yes no clubbing, cyanosis or edema Assessment and Plan Assessment & Plan (1) Hyperlipidemia: Code(s): E78.5 - Hyperlipidemia, unspecified Plan: stable; do labs Orders: Orders Lipid Panel Today Z13.220 - Encounter for screening for lipoid disorders Coding Level of Care Code Est Pt Level 3 (10971) Diagnoses Hyperlipidemia E78.5
[2023-06-29 11:25] VITALS: BP 118/70; PULSE 70; O2SAT 98; BMI 33.7
== END 2023-06-29 11:38 | disposition home or self-care (01) ==
PROVIDERS: PCP Internal Medicine; Visit Provider Internal Medicine
DX: E78.5 Hyperlipidemia, unspecified (principal)
CPT/HCPCS: 99213

== ENCOUNTER 2023-07-22 07:32 | Outpatient (REF) | payer OTHER, SELFPAY ==
[2023-07-22 07:39] LABS: MANUAL DIFF FLAG NO
[2023-07-22 08:18] LABS: Basophils Percent Auto 0.6 % (0-2); Eosinophils Absolute Auto 0.1 X10*3/uL (0.0-0.4); Eosinophils Percent Auto 0.9 % (0-4); Hematocrit 48.6 % (42.0-52.0); Hemoglobin 16.3 g/dl (14.0-18.0); Imm Gran Abs Auto 0.03 X10*3/uL (0.00-0.03); Imm Gran Pct Auto 0.5 % (0.0-0.4); Lymphocytes Absolute Auto 1.7 X10*3/uL (1.2-4.9); Lymphocytes Percent Auto 26.3 % (20-40); Mean Corpuscular HGB Conc 33.5 g/dl (31.0-36.0); Mean Corpuscular Hemoglobin 33.5 pg (27.0-33.0); Mean Corpuscular Volume 99.8 fL (80.0-98.0); Mean Platelet Volume 10.4 fL (9.4-12.4); Monocytes Absolute Auto 0.5 X10*3/uL (0.1-1.2); Monocytes Percent Auto 8.2 % (2-11); Neutrophils Absolute Auto 4.2 x10*3/uL (2.0-8.3); Neutrophils Percent Auto 63.5 % (45-73); Platelet Count 204 X10*3/uL (160-400); Red Blood Count 4.87 X10*6/uL (4.60-5.80); Red Cell Distribution Width 12.8 % (11.0-16.0); White Blood Count 6.6 X10*3/uL (4.8-10.8)
== END 2023-07-22 07:33 | disposition home or self-care (01) ==
LOC: HO.LABR 07:32
PROVIDERS: PCP Internal Medicine; Visit Provider Psychiatry & Neurology Psychiatry
DX: Z79.899 Other long term (current) drug therapy (principal)
CPT/HCPCS: 36415; 85025

== ENCOUNTER 2023-08-23 07:42 | Outpatient (REF) | payer OTHER, SELFPAY ==
[2023-08-23 08:04] LABS: MANUAL DIFF FLAG NO
[2023-08-23 08:23] LABS: Basophils Percent Auto 0.4 % (0-2); Eosinophils Absolute Auto 0.1 X10*3/uL (0.0-0.4); Eosinophils Percent Auto 0.6 % (0-4); Hematocrit 44.2 % (42.0-52.0); Hemoglobin 15.3 g/dl (14.0-18.0); Imm Gran Abs Auto 0.02 X10*3/uL (0.00-0.03); Imm Gran Pct Auto 0.3 % (0.0-0.4); Lymphocytes Absolute Auto 1.9 X10*3/uL (1.2-4.9); Mean Corpuscular HGB Conc 34.6 g/dl (31.0-36.0); Mean Corpuscular Hemoglobin 33.9 pg (27.0-33.0); Mean Platelet Volume 10.4 fL (9.4-12.4); Monocytes Absolute Auto 0.7 X10*3/uL (0.1-1.2); Monocytes Percent Auto 8.3 % (2-11); Neutrophils Absolute Auto 5.2 x10*3/uL (2.0-8.3); Neutrophils Percent Auto 66.4 % (45-73); Platelet Count 178 X10*3/uL (160-400); Red Blood Count 4.51 X10*6/uL (4.60-5.80); Red Cell Distribution Width 12.3 % (11.0-16.0); White Blood Count 7.8 X10*3/uL (4.8-10.8)
== END 2023-08-23 07:43 | disposition home or self-care (01) ==
LOC: HO.LAB 07:42
PROVIDERS: Absent Provider Family Medicine; PCP Internal Medicine; Visit Provider Psychiatry & Neurology Psychiatry
DX: Z79.899 Other long term (current) drug therapy (principal)
CPT/HCPCS: 36415; 85025

== ENCOUNTER 2023-09-22 07:51 | Outpatient (REF) | payer OTHER, SELFPAY ==
[2023-09-22 08:01] LABS: MANUAL DIFF FLAG NO
[2023-09-22 08:58] LABS: Basophils Percent Auto 0.4 % (0-2); Eosinophils Absolute Auto 0.1 X10*3/uL (0.0-0.4); Eosinophils Percent Auto 1.3 % (0-4); Hematocrit 44.8 % (42.0-52.0); Imm Gran Abs Auto 0.04 X10*3/uL (0.00-0.03); Imm Gran Pct Auto 0.6 % (0.0-0.4); Lymphocytes Percent Auto 29.1 % (20-40); Mean Corpuscular HGB Conc 33.5 g/dl (31.0-36.0); Mean Corpuscular Hemoglobin 33.9 pg (27.0-33.0); Mean Corpuscular Volume 101.4 fL (80.0-98.0); Monocytes Absolute Auto 0.7 X10*3/uL (0.1-1.2); Monocytes Percent Auto 9.6 % (2-11); Neutrophils Absolute Auto 4.1 x10*3/uL (2.0-8.3); Platelet Count 176 X10*3/uL (160-400); Red Blood Count 4.42 X10*6/uL (4.60-5.80); Red Cell Distribution Width 12.6 % (11.0-16.0)
== END 2023-09-22 07:52 | disposition home or self-care (01) ==
LOC: HO.LABR 07:51
PROVIDERS: PCP Family Medicine; Visit Provider Psychiatry & Neurology Psychiatry
DX: Z79.899 Other long term (current) drug therapy (principal)
CPT/HCPCS: 36415; 85025

== ENCOUNTER 2023-10-04 09:12 | Outpatient (AMB) | payer OTHER, SELFPAY ==
--- NOTE | 2023-10-04 09:26 | MHC.OFFWIV ---
Intake Vital Signs 10/04/23 09:27 Height 6 ft 3 in Weight 256 lb BMI 32.0 BP 118/82 Blood Pressure Location Rt brachial Position Sitting Pulse 81 Pulse Source Pulse Oximeter Temp 98.4 F Temp Source Oral Pulse Oximetry (%) 98 Oxygen Delivery Method Room Air Intake Visit Reasons: RT foot stepped on broken plate Intake Note: pt here c/o RT foot injury, Stepped on broken plate Patient Tobacco Use Status: Former Tobacco user Allergies divalproex sodium [From DEPAKOTE] Allergy (Severe, Verified 10/04/23 09:27) PANCREATITIS haloperidol [From Haldol] Allergy (Intermediate, Verified 10/04/23 09:27) DYSTONIC REACTION lithium Adverse Reaction (Verified 10/04/23 09:27) Unknown Do you need a note to return to daycare/school/sports/work: No HPI HPI Comments History of Present Illness Details Patient presents to the walk-in today for sick visit Complaining of injury to the right foot, reports he stepped on a broken plate 5 days ago Is concerned that there is a piece of the plate stocking there Requesting an x-ray [facility] Medical History Obesity Hx of pancreatitis Anxiety Difficulty sleeping Smoker Hyperlipidemia GERD (gastroesophageal reflux disease) Schizoaffective disorder COPD (chronic obstructive pulmonary disease) Elevated cholesterol Surgical History Hx of colonoscopy History of excision of mass History of bilateral cataract extraction History of bunionectomy Family History Father Diabetes Mother No problems noted. Paternal Grandfather Gastric cancer Social History Household Members: None Housing: Apartment Are you a primary care director rn to a significant other at home: No Do you presently have visiting nurse or other home services: No Unable to assess alcohol history related to: Unknown Alcohol intake: current Alcohol intake frequency: holidays/special occasions only Alcohol type: beer Comment: ALEEP NO SOB NOTED Patient Tobacco Use Status: Former Tobacco user Tobacco use type: Cigarette Cigarettes Per Day: 0.5 Years Smoked: unknown e-Cigarette/Vaping Use: Never Used Second Hand Smoke Exposure: No service: No Current occupational status: disabled Sexual orientation: Straight/Heterosexual Cognitive needs: No Hearing needs: No Vision needs: No Review of Systems Const All systems reviewed & are unremarkable except as noted in HPI and below Physical Exam Vital Signs: Last Vital Signs Temp 98.4 F 10/04/23 09:27 Pulse 81 10/04/23 09:27 BP 118/82 10/04/23 09:27 Pulse Ox 98 10/04/23 09:27 Oxygen Delivery Method Room Air 10/04/23 09:27 BMI result Body Mass Index 32.0 General: awake, alert, oriented. Answers questions appropriately. Fully engaged in examination. Skin: warm, dry, intact, Abrasion to sole of right foot. No open wounds, bleeding, signs of infection. Nontender to palpation. HEENT: Normocephalic. Hearing intact. Cardiac: External chest normal in appearance. Respiratory: No cough, audible wheezing or stridor. Abdomen: without gross distension. MS: No obvious swelling or deformities. Neurological: Oriented to person, place, time and situation. Thought process intact. No gait abnormalities appreciated. Psychiatric: Appropriate mood and affect. Good judgment and insight. Results Reviewed Results Reviewed: X-ray ordered and independently reviewed: No foreign body identified Assessment & Plan Assessment & Plan (1) Injury of right foot: Code(s): S99.921A - Unspecified injury of right foot, initial encounter Plan X-ray ordered and independently reviewed: No foreign body identified Patient advised that it would be difficult to evaluate foreign body that is not visible on an x-ray. Lengthy discussion with patient today advising him that we will not blindly search for foreign body, patient verbalizes understanding. Continue with triple antibiotic ointment/bacitracin/Neosporin and Band-Aid for the abrasion. All questions and concerns were answered, patient agrees with plan. Follow up with PCP or return here for any new or worsening symptoms Coding Level of Care Code Est Pt Level 4 (89662) Diagnoses Injury of right foot S99.921A
[2023-10-04 09:27] VITALS: BP 118/82; PULSE 81; TEMP 36.9; O2SAT 98; BMI 32.0
== END 2023-10-04 10:33 | disposition home or self-care (01) ==
PROVIDERS: PCP Family Medicine; Visit Provider Registered Nurse Emergency
DX: S99.921A Unspecified injury of right foot, initial encounter (principal)
CPT/HCPCS: 99214

== ENCOUNTER 2023-10-04 10:03 | Outpatient (REF) | payer OTHER, SELFPAY ==
--- NOTE | ~2023-10-04 | XR_ITS ---
EXAMINATION: XR FOOT, RIGHT CLINICAL INFORMATION: Injury to right foot COMPARISON: Right foot 06/27/2009 TECHNIQUE: AP, lateral, and oblique views of the right foot. FINDINGS: There is been prior resection of the head of fifth metatarsal. The bones and soft tissues are otherwise unremarkable. No fracture. Alignment is anatomic. Joint spaces are maintained. XR/XR foot RT min 3V IMPRESSION: 1. No acute fracture or dislocation. 2. Prior resection of the head of the fifth metatarsal.
== END 2023-10-04 10:04 | disposition home or self-care (01) ==
LOC: HO.HMGCX 10:03
PROVIDERS: PCP Family Medicine; Visit Provider Registered Nurse Emergency
DX: S99.921D Unspecified injury of right foot, subsequent encounter (principal)
CPT/HCPCS: 73630

== ENCOUNTER 2023-10-21 07:25 | Outpatient (REF) | payer OTHER, SELFPAY ==
[2023-10-21 07:39] LABS: MANUAL DIFF FLAG NO
[2023-10-21 07:50] LABS: Basophils Percent Auto 0.6 % (0-2); Eosinophils Absolute Auto 0.1 X10*3/uL (0.0-0.4); Eosinophils Percent Auto 1.2 % (0-4); Hematocrit 46.8 % (42.0-52.0); Hemoglobin 16.1 g/dl (14.0-18.0); Imm Gran Abs Auto 0.02 X10*3/uL (0.00-0.03); Imm Gran Pct Auto 0.4 % (0.0-0.4); Lymphocytes Absolute Auto 1.3 X10*3/uL (1.2-4.9); Lymphocytes Percent Auto 25.8 % (20-40); Mean Corpuscular HGB Conc 34.4 g/dl (31.0-36.0); Mean Corpuscular Hemoglobin 33.8 pg (27.0-33.0); Mean Corpuscular Volume 98.3 fL (80.0-98.0); Mean Platelet Volume 10.1 fL (9.4-12.4); Monocytes Absolute Auto 0.3 X10*3/uL (0.1-1.2); Monocytes Percent Auto 5.8 % (2-11); Neutrophils Absolute Auto 3.5 x10*3/uL (2.0-8.3); Neutrophils Percent Auto 66.2 % (45-73); Platelet Count 167 X10*3/uL (160-400); Red Blood Count 4.76 X10*6/uL (4.60-5.80); Red Cell Distribution Width 12.2 % (11.0-16.0); White Blood Count 5.2 X10*3/uL (4.8-10.8)
== END 2023-10-21 07:26 | disposition home or self-care (01) ==
LOC: HO.LAB 07:25
PROVIDERS: PCP Internal Medicine; Visit Provider Psychiatry & Neurology Psychiatry
DX: Z79.899 Other long term (current) drug therapy (principal)
CPT/HCPCS: 36415; 85025

== ENCOUNTER 2023-11-18 07:39 | Outpatient (REF) | payer OTHER, SELFPAY ==
[2023-11-18 07:52] LABS: MANUAL DIFF FLAG NO
[2023-11-18 08:09] LABS: Basophils Percent Auto 0.6 % (0-2); Eosinophils Absolute Auto 0.1 X10*3/uL (0.0-0.4); Eosinophils Percent Auto 0.9 % (0-4); Hemoglobin 16.2 g/dl (14.0-18.0); Imm Gran Abs Auto 0.02 X10*3/uL (0.00-0.03); Imm Gran Pct Auto 0.3 % (0.0-0.4); Lymphocytes Absolute Auto 1.8 X10*3/uL (1.2-4.9); Lymphocytes Percent Auto 28.5 % (20-40); Mean Corpuscular HGB Conc 34.5 g/dl (31.0-36.0); Mean Corpuscular Hemoglobin 34.1 pg (27.0-33.0); Mean Corpuscular Volume 98.9 fL (80.0-98.0); Mean Platelet Volume 10.2 fL (9.4-12.4); Monocytes Absolute Auto 0.5 X10*3/uL (0.1-1.2); Monocytes Percent Auto 7.3 % (2-11); Neutrophils Percent Auto 62.4 % (45-73); Platelet Count 181 X10*3/uL (160-400); Red Blood Count 4.75 X10*6/uL (4.60-5.80); Red Cell Distribution Width 12.1 % (11.0-16.0); White Blood Count 6.5 X10*3/uL (4.8-10.8)
== END 2023-11-18 07:40 | disposition home or self-care (01) ==
LOC: HO.LABR 07:39
PROVIDERS: PCP Internal Medicine; Visit Provider Psychiatry & Neurology Psychiatry
DX: Z79.899 Other long term (current) drug therapy (principal)
CPT/HCPCS: 36415; 85025

== ENCOUNTER 2023-12-02 07:41 | Outpatient (REF) | payer OTHER, SELFPAY ==
[2023-12-02 08:29] LABS: Alanine Aminotransferase 44 U/L (0-40); Albumin Level 4.7 g/dL (3.5-5.0); Alkaline Phosphatase 98 U/L (39-117); Anion Gap 11 (12-20); Aspartate Amino Transferase 29 U/L (5-37); Bilirubin Total 0.7 mg/dL (0.0-1.0); Blood Urea Nitrogen 13 mg/dL (9-16); Calcium 9.8 mg/dL (8.4-10.2); Carbon Dioxide 29 mmol/L (22-29); Chloride 106 mmol/L (96-108); Cholesterol 214 mg/dL (<200); Estimated Glomerular Filt Rate > 60; Glucose Random 116 mg/dL (60-115); HDL Cholesterol 36 mg/dL (>40); LDL Cholesterol Calculated 118 mg/dL (<100); Potassium 4.2 mmol/L (3.3-5.1); Sodium 142 mmol/L (135-145); Total Protein 7.5 g/dL (6.5-8.0); Triglycerides 304 mg/dL (<150)
== END 2023-12-02 07:42 | disposition home or self-care (01) ==
LOC: HO.LAB 07:41
PROVIDERS: PCP Internal Medicine; Visit Provider Family Medicine
DX: E78.2 Mixed hyperlipidemia (principal); K21.9 Gastro-esophageal reflux disease without esophagitis
CPT/HCPCS: 36415; 80053; 80061

== ENCOUNTER 2023-12-21 07:02 | Outpatient (REF) | payer OTHER, SELFPAY ==
[2023-12-21 07:16] LABS: MANUAL DIFF FLAG NO
[2023-12-21 07:50] LABS: Basophils Percent Auto 0.4 % (0-2); Eosinophils Absolute Auto 0.1 X10*3/uL (0.0-0.4); Eosinophils Percent Auto 0.9 % (0-4); Hematocrit 48.3 % (42.0-52.0); Hemoglobin 16.5 g/dl (14.0-18.0); Imm Gran Abs Auto 0.02 X10*3/uL (0.00-0.03); Imm Gran Pct Auto 0.4 % (0.0-0.4); Lymphocytes Percent Auto 34.7 % (20-40); Mean Corpuscular HGB Conc 34.2 g/dl (31.0-36.0); Mean Corpuscular Hemoglobin 33.9 pg (27.0-33.0); Mean Corpuscular Volume 99.2 fL (80.0-98.0); Mean Platelet Volume 10.5 fL (9.4-12.4); Monocytes Absolute Auto 0.5 X10*3/uL (0.1-1.2); Monocytes Percent Auto 8.9 % (2-11); Neutrophils Absolute Auto 3.1 x10*3/uL (2.0-8.3); Neutrophils Percent Auto 54.7 % (45-73); Platelet Count 161 X10*3/uL (160-400); Red Blood Count 4.87 X10*6/uL (4.60-5.80); Red Cell Distribution Width 12.2 % (11.0-16.0); White Blood Count 5.7 X10*3/uL (4.8-10.8)
== END 2023-12-21 07:03 | disposition home or self-care (01) ==
LOC: HO.LABR 07:02
PROVIDERS: PCP Internal Medicine; Visit Provider Psychiatry & Neurology Psychiatry
DX: Z79.899 Other long term (current) drug therapy (principal)
CPT/HCPCS: 36415; 85025

== ENCOUNTER 2024-01-21 08:11 | Outpatient (REF) | payer OTHER, SELFPAY ==
[2024-01-21 08:41] LABS: MANUAL DIFF FLAG NO
[2024-01-21 08:46] LABS: Basophils Percent Auto 0.7 % (0-2); Eosinophils Percent Auto 0.7 % (0-4); Hematocrit 43.5 % (42.0-52.0); Hemoglobin 14.8 g/dl (14.0-18.0); Imm Gran Abs Auto 0.03 X10*3/uL (0.00-0.03); Imm Gran Pct Auto 0.5 % (0.0-0.4); Lymphocytes Percent Auto 33.8 % (20-40); Mean Corpuscular Hemoglobin 33.6 pg (27.0-33.0); Mean Corpuscular Volume 98.6 fL (80.0-98.0); Mean Platelet Volume 10.2 fL (9.4-12.4); Monocytes Absolute Auto 0.6 X10*3/uL (0.1-1.2); Monocytes Percent Auto 10.4 % (2-11); Neutrophils Absolute Auto 3.1 x10*3/uL (2.0-8.3); Neutrophils Percent Auto 53.9 % (45-73); Platelet Count 164 X10*3/uL (160-400); Red Blood Count 4.41 X10*6/uL (4.60-5.80); Red Cell Distribution Width 12.3 % (11.0-16.0); White Blood Count 5.8 X10*3/uL (4.8-10.8)
== END 2024-01-21 08:12 | disposition home or self-care (01) ==
LOC: HO.LABR 08:11
PROVIDERS: PCP Family Medicine; Visit Provider Psychiatry & Neurology Psychiatry
DX: Z79.899 Other long term (current) drug therapy (principal)
CPT/HCPCS: 36415; 85025

== ENCOUNTER 2024-02-14 09:51 | Outpatient (REF) | payer OTHER, SELFPAY ==
[2024-02-14 10:07] VITALS: BP 135/72; PULSE 73; RESP 16; TEMP 36.5; O2SAT 99; BMI 30.4
--- OUTSIDE RECORDS SUMMARY | 2024-02-16 14:14 | XMS_ITS | Continuity of Care Document ---
Author Organization [facility] Address [address] [place] [address]- Care Team Providers Care Public Affairs Specialist Name Role Phone Jaswinder Jimenez DO Primary Care Physician Encounter [facility] Date(s): 12/17/23 - 01/16/24 [facility] Adult [address] [place] [address]- Allergies, Adverse Reactions, Alerts Substance Reaction Severity Status Haldol Active Depakote Active lithium carbonate Active Medications Albuterol (Eqv-ProAir HFA) 90 mcg/inh inhalation aerosol 2 puffs, Inhalation, Every 6 hours, # 8.5 Gm, 5 Refills, Maintenance, 09/03/23 10:59:00 EDT, [facility] # [facility], Partial fill upon patient request if the prescription is for a schedule II opioid drug., 2 puffs Inhalation Every 6 hours, 189, cm, 09/02... Start Date: 09/03/23 Status: Ordered atorvastatin 20 mg oral tablet 1 tablet = 20 mg, By Mouth, Daily, # 90 tablet, 3 Refills, Maintenance, 07/20/23 10:48:00 EDT, Tablet, [facility] # [facility], Partial fill upon patient request if the prescription is for a schedule II opioid drug., 189, cm, 07/20/23 10:01:00 EDT, Height... Start Date: 07/20/23 Status: Ordered carBAMazepine 400 mg oral tablet, extended release 400 mg, 1, tablet, By Mouth, 2 times a day, # 120 tablet, Refills 0, Maintenance, 07/20/23 10:30:00EDT, Partial fill upon patient request if the prescription is for a schedule II opioid drug. Start Date: 07/20/23 Status: Ordered ciclopirox 0.77% topical cream Topically, 2 times a day, 0 Refills, Maintenance, 11/25/23 14:35:00 EDT, Partial fill upon patient request if the prescription is for a schedule II opioid drug. Start Date: 11/25/23 Status: Ordered clonazePAM 1 mg oral tablet 1 tablet = 1 mg, By Mouth, 3 times a day, 0 Refills, Maintenance, 11/04/22 21:51:00 EDT, Partial fill upon patient request if the prescription is for a schedule II opioid drug. Start Date: 11/04/22 Status: Ordered clozapine 100 mg oral tablet 0 Refills, Maintenance, 11/04/22 21:51:00 EDT, Partial fill upon patient request if the prescription is for a schedule II opioid drug. Start Date: 11/04/22 Status: Ordered famotidine 20 mg oral tablet 20 mg, 1, tablet, By Mouth, 2 times a day, # 60 tablet, Refills 0, Maintenance, 07/20/23 10:30:00 EDT, Partial fill upon patient request if the prescription is for a schedule II opioid drug. Start Date: 07/20/23 Status: Ordered fluticasone-salmeterol 250 mcg-50 mcg inhalation powder 1, inhalation, Inhalation, 2 times a day, rinse mouth and throat after use, # 3 each, Refills 3, Tot. Refills 3, Maintenance, 12/17/23 13:34:00 EDT, Powder, Route to Pharmacy Electronically, [id number], [facility] # [facility], 1... Start Date: 12/17/23 Status: Ordered ibuprofen 600 mg oral tablet 600 mg, 1, tablet, By Mouth, 4 times a day, PRN, # 40 tablet, Refills 0, Maintenance, for pain, 07/20/23 10:32:00 EDT, Partial fill upon patient request if the prescription is for a schedule II opioid drug. Start Date: 07/20/23 Status: Ordered olanzapine 20 mg oral tablet 2 tablet = 40 mg, 0 Refills, Maintenance, 11/04/22 21:51:00 EDT, Partial fill upon patient request if the prescription is for a schedule II opioid drug. Start Date: 11/04/22 Status: Ordered perphenazine 16 mg oral tablet 16 mg, 1, tablet, By Mouth, 3 times a day, # 90 tablet, Refills 0, Maintenance, 07/20/23 10:32:00 EDT, Partial fill upon patient request if the prescription is for a schedule II opioid drug. Start Date: 07/20/23 Status: Ordered prazosin 2 mg oral capsule 1 capsule = 2 mg, By Mouth, Daily at bedtime, # 30 capsule, 0 Refills, Maintenance, 07/20/23 10:33:00 EDT, Capsule, Partial fill upon patient request if the prescription is for a schedule II opioid drug. Start Date: 07/20/23 Status: Ordered tamsulosin 0.4 mg oral capsule 0.4 mg, 1, capsule, By Mouth, Daily, # 90 capsule, Refills 0, Maintenance, 07/20/23 10:34:00 EDT, Partial fill upon patient request if the prescription is for a schedule II opioid drug. Start Date: 07/20/23 Status: Ordered triamcinolone 0.5% topical cream See Instructions, APPLY TOPICALLY TWO TIMES A DAY TO SCALP AND EAR, # 60 Gm, 1 Refills, Maintenance, 10/07/23 16:19:00 EDT, [facility] # [facility], 30, APPLY TOPICALLY TWO TIMES A DAY TO SCALP AND EAR, 189, cm, 09/03/23 10:47:00 EDT, Height, 114, kg, ... Start Date: 10/07/23 Status: Ordered Problem List Condition Confirmation Course Effective Dates Status H ealth Status Informant Left ankle pain Confirmed Active COPD mixed type Confirmed Active Former smoker Confirmed Active GERD (gastroesophageal reflux disease) Confirmed Active History of pancreatitis Confirmed Active Mixed hyperlipidemia Confirmed Active Obese class I Confirmed Active Knee pain Confirmed Active Physical exam Confirmed Active PTSD (post-traumatic stress disorder) Confirmed Active Schizoaffective disorder Confirmed Active Seborrhea Confirmed Active Tinea pedis Confirmed Active Social History Social History Type Response Smoking Status Former smoker, quit more than 30 days ago; Tobacco use times per day: quit 12/2020-2021 1ppd; Number of years: 37; Total pack years: 37; entered on: 07/20/23 Sex Patient Care team information Care Team Personnel Name: Jaswinder Jimenez DO Position: S Physician - Primary Care Member Role: PCP Address: Address: [address] [place] [address]- Care Team Related Persons Name: HARVEY VILLEDA Name: FREDERICK PAINTING SR Address: [place] [address] [place] [address]
--- OUTSIDE RECORDS SUMMARY | 2024-02-16 14:14 | XMS_ITS | Continuity of Care Document ---
Author Organization [facility] Address [address] [place] [address]- Care Team Providers Care [employer] Dean Name Role Phone Jaswinder Jimenez DO Primary Care Phys[id number] Adult [address] [place] [address]- Encounter Diagnosis COPD mixed type(Discharge Diagnosis) - 02/08/24 Attending Physician: Carmen Demarco Encounter Type: Office Visit Allergies, Adverse Reactions, Alerts Substance Criticality Severity Reaction Reaction Severity Status Haldol Active Depakote Active lithium carbonate Ac tive Medications Albuterol (Eqv-ProAir HFA) 90 mcg/inh inhalation aerosol 2 puffs, Inhalation, Every 6 hours, # 8.5 Gm, 5 Refills, Maintenance, 09/03/23 10:59:00 AM EDT, [facility] # [facility], Partial fill upon patient request if the prescription is for a schedule II opioid drug., 2 puffs Inhalation Every 6 hours, 189, cm, 09/03/23 10:47:00 EDT, Height, 114, kg, 11/04/22 23:03:00 EDT, Dry Weight Start Date: 09/03/23 Status: Ordered Quantity: 8.5 Unit: g Repeat number: 6 atorvastatin 20 mg oral tablet 1 tablet = 20 mg, By Mouth, Daily, # 90 tablet, 3 Refills, Maintenance, 07/20/23 10:48:00 AM EDT, Tablet, [facility] # [facility], Partial fill upon patient request if the prescription is for a schedule II opioid drug., 189, cm, 07/20/23 10:01:00 EDT, Height, 114, kg, 11/04/22 23:03:00 EDT, Dry Weight Start Date: 07/20/23 Status: Ordered Quantity: 90.0 Unit: tablet Repeat number: 4 carBAMazepine 400 mg oral tablet, extended release 400 mg, 1, tablet, By Mouth, 2 times a day, # 120 tablet, Refills 0, Maintenance, 07/20/23 10:30:00 AM EDT, Partial fill upon patient request if the prescription is for a schedule II opioid drug. Start Date: 07/20/23 Status: Ordered Quantity: 120.0 Unit: tablet Repeat number: 1 ciclopirox 0.77% topical cream Topically, 2 times a day, 0 Refills, Maintenance, 11/25/23 2:35:00 PM EDT, Partial fill upon patientrequest if the prescription is for a schedule II opioid drug. Start Date: 11/25/23 Status: Ordered Repeat number: 1 clonazePAM 1 mg oral tablet 1 tablet = 1 mg, By Mouth, 3 times a day, 0 Refills, Maintenance, 11/04/22 9:51:00 PM EDT, Partial fill upon patient request if the prescription is for a schedule II opioid drug. Start Date: 11/04/22 Status: Ordered Repeat number: 1 clozapine 100 mg oral tablet 0 Refills, Maintenance, 11/04/22 9:51:00 PM EDT, Partial fill upon patient request if the prescription is for a schedule II opioid drug. Start Date: 11/04/22 Status: Ordered Repeat number: 1 famotidine 20 mg oral tablet 20 mg, 1, tablet, By Mouth, 2 times a day, # 60 tablet, Refills 0, Maintenance, 07/20/23 10:30:00 AMEDT, Partial fill upon patient request if the prescription is for a schedule II opioid drug. Start Date: 07/20/23 Status: Ordered Quantity: 60.0 Unit: tablet Repeat number: 1 fluticasone-salmeterol 250 mcg-50 mcg inhalation powder 1, inhalation, Inhalation, 2 times a day, rinse mouth and throat after use, # 3 each, Refills 3, Tot. Refills 3, Maintenance, 12/17/23 1:34:00 PM EDT, Powder, Route to Pharmacy Electronically, [id number], [facility] # [facility], 189, cm, 11/25/23 14:36:00 EDT, Height, 114, kg, 11/04/22 23:03:00 EDT, Dry Weight Start Date: 12/17/23 Status: Ordered Quantity: 3.0 Unit: each Repeat number: 4 ibuprofen 600 mg oral tablet 600 mg, 1, tablet, By Mouth, 4 times a day, PRN, # 40 tablet, Refills 0, Maintenance, for pain, 07/20/23 10:32:00 AM EDT, Partial fill upon patient request if the prescription is for a schedule II opioid drug. Start Date: 07/20/23 Status: Ordered Quantity: 40.0 Unit: tablet Repeat number: 1 olanzapine 20 mg oral tablet 2 tablet = 40 mg, 0 Refills, Maintenance, 11/04/22 9:51:00 PM EDT, Partial fill upon patient requestif the prescription is for a schedule II opioid drug. Start Date: 11/04/22 Status: Ordered Repeat number: 1 perphenazine 16 mg oral tablet 16 mg, 1, tablet, By Mouth, 3 times a day, # 90 tablet, Refills 0, Maintenance, 07/20/23 10:32:00 AMEDT, Partial fill upon patient request if the prescription is for a schedule II opioid drug. Start Date: 07/20/23 Status: Ordered Quantity: 90.0 Unit: tablet Repeat number: 1 prazosin 2 mg oral capsule 1 capsule = 2 mg, By Mouth, Daily at bedtime, # 30 capsule, 0 Refills, Maintenance, 07/20/23 10:33:00 AM EDT, Capsule, Partial fill upon patient request if the prescription is for a schedule II opioiddrug. Start Date: 07/20/23 Status: Ordered Quantity: 30.0 Unit: capsule Repeat number: 1 tamsulosin 0.4 mg oral capsule 0.4 mg, 1, capsule, By Mouth, Daily, # 90 capsule, Refills 0, Maintenance, 07/20/23 10:34:00 AM EDT,Partial fill upon patient request if the prescription is for a schedule II opioid drug. Start Date: 07/20/23 Status: Ordered Quantity: 90.0 Unit: capsule Repeat number: 1 triamcinolone 0.5% topical cream See Instructions, APPLY TOPICALLY TWO TIMES A DAY TO SCALP AND EAR, # 60 Gm, 1 Refills, Maintenance, 10/07/23 4:19:00 PM EDT, [facility] # [facility], 30, APPLY TOPICALLY TWO TIMES A DAY TO SCALP AND EAR, 189, cm, 09/03/23 10:47:00 EDT, Height, 114, kg, 11/04/22 23:03:00 EDT, Dry Weight Start Date: 10/07/23 Status: Ordered Quantity: 60.0 Unit: g Repeat number: 1 Problem List Condition Confirmation Course Effective Dates [...] Seborrhea Confirmed Active Tinea pedis Confirmed Active Diagnosis Diagnosis Type Effective Dates Health Status inical Service Informant COPD mixed type Discharge Diagnosis 02/08/24 Vital Signs Most recent to oldest [Reference Range]: 1 Height 189 cm (02/08/24 10:49 AM) Weight 118.2 kg (02/08/24 10:49 AM) Oxygen Saturation [94-100 %] 99 % (02/08/24 10:49 AM) Pulse Rate [55-90 bpm] 73 bpm (02/08/24 10:49 AM) Body Mass Index [18.5-24.99 kg/m2] 33.09 kg/m2 *>HHI* (02/08/24 10:49 AM) Blood Pressure [90-138/55-84 mm Hg] 131/ 83mm Hg (02/08/24 10:49 AM) Temperature [96.8-100.4 DegF] 97.9 DegF (02/08/24 10:49 AM) Mode of Delivery (Oxygen) Room air (02/08/24 10:49 AM) Blood pressure sites Arm, right (02/08/24 10:49 AM) Temperature Route Oral (02/08/24 10:49 AM) Weight Obtained Via Standing scale (02/08/24 10:49 AM) Social History Social History Type Response Smoking Status Former smoker, quit more than 30 days ago; Tobacco use times per day: quit 12/20202020 1ppd; Number of years: 37; Total pack years: 37; entered on: 07/20/23 Sex Sex Representation Male (finding) Patient Care team information Care Team Personnel Name: Jaswinder Jimenez DO Position: S Physician - Primary Care Member Role: PCP Address: [address] [place] [address] Telecom: Care Team Related Persons Name: HARVEY VILLEDA Name: FREDERICK PAINTING Insurance Providers Guarantor name: FREDERICK PAINTING Health Plan Information #: 1 Payer: [facility] [employer]/ONE CARE Member Number: [id number] Policy Number: NA Group Number: [facility] Health Plan Information #: 2 Payer: [facility] C[employer] Member Number: [id number] Policy Number: NA Group Number: NA
--- OUTSIDE RECORDS SUMMARY | 2024-02-16 14:14 | XMS_ITS ---
Author Organization [facility] Address [address] [place] [address] Care Team Providers Care Advertising Director Name Role Phone Jaswinder Jimenez MD Primary Care Provider Unavailab carmen Becky Pope Unavailable [phone] REASON FOR VISIT B/L swelling, reaction Encounters Encounter Location Date Provider Diagnosis [facility] [address] [place] [address] 11/01/2023 Becky Niko Plan Of Treatment Next Appt Details Provider Name:Becky Pope , 03/30/2024 11:00:00 AM, [address] [place], [address], Progress Notes * Cedric PAINTING SDOB:[birth year] (53 yo M)Acc No.[id number]:11/01/2023 Patient:?Cedric Painting S :1970???Age:53 Y???Sex:Male Address:[address] [place] [address], [address], [place], [address] * true * Date:? Generated for Jerryi ishan/Carissa/eTransmitting on:?02/16/2024 02:14 PM EST
--- OUTSIDE RECORDS SUMMARY | 2024-02-16 14:14 | XMS_ITS ---
Author Organization [facility] Address [address] [place] [address] Care Team Providers Care Tariff Clerk Name Role Phone Jaswinder Jimenez MD Primary Care Provider Unavailab carmen PopeJaninee Unavailable [phone] REASON FOR VISIT ciclopirox/pop Encounters Encounter Location Date Provider Diagnosis [facility] [address] [place] [address] 11/16/2023 Becky Pope Plan Of Treatment Next Appt Details Provider Name:Becky Pope , 03/30/2024 11:00:00 AM, [address] [place], [address], Progress Notes * Cedric PAINTING SDOB:[birth year] (53 yo M)Acc No.[id number]:11/16/2023 Patient:?Cedric Painting S :1970???Age:53 Y???Sex:Male Address:[address] [place] [address], [address], [place], [address] * true * Date:? Generated for Jerryi ishan/Carissa/eTransmitting on:?02/16/2024 02:14 PM EST
--- OUTSIDE RECORDS SUMMARY | 2024-02-16 14:15 | XMS_ITS ---
Author Organization [facility] Address [address] [place] [address] Care Team Providers Care Mobility Architect Name Role Phone Jaswinder Jimenez MD Primary Care Provider Unavailab carmen PopeBecky Unavailable [phone] REASON FOR VISIT Ciclopirox Olamine (0.77 % Cream) Encounters Encounter Location Date Provider Diagnosis [address] [address] 10/18/2023 Becky Niko Plan Of Treatment Next Appt Details Provider Name:Becky Pope , 03/30/2024 11:00:00 AM, [address] [place], [address], Progress Notes * Cedric PAINTING SDOB:[birth year] (53 yo M)Acc No.[id number]:10/18/2023 Patient:?Cedric Painting S :1970???Age:53 Y???Sex:Male Address:[address] [place] [address] [address], [place], [address] * true * Date:? Generated for Printi ishan/Carissa/eTransmitting on:?02/16/2024 02:14 PM EST
--- OUTSIDE RECORDS SUMMARY | 2024-02-16 14:15 | XMS_ITS | Patient Health Record ---
Author Organization [facility] Zbigniew andrey ConstantinoKing Address [address] [place] [address] Care Team Providers Care Switchboard Operator Receptionist Name Role Phone Jaswinder Jimenez MD Primary Care Provider Becky Minor Unavailable [phone] Allergies Allergen (clinical drug ingredient) Drug/Non Drug Allergy documented on EMR Reaction Allergy Type Onset Date Status valproate Depakote panciritis Drug Allergy Active Haldol head got stuck Drug Allergy Ac tive lithium carbonate [place] Carbonate Unknown Drug Allergy Active Reason For Referral No Information Medications Medication SIG (Take, Route, Frequency, Duration) Notes Start Date End Date Status methylPREDNISolone 4 MG 1 tablet with fo od or milk Orally every 12 hrs for 30 day(s) Active Tamsulosin HCl 0.4 MG 1 capsule Orally Once a day for 30 day(s) Active Fluticasone Propionate (Inhal) 250 MCG/ACT 1 puff Inhalation Twice a day Active OLANZapine 20 MG 1 tablet Orally Once a day for 30 day(s) Active Advair HFA 230-21 MCG/ACT Inhalation Twi ce a day Not-Taking Nicotine Polacrilex 2 MG 1 piece chew fo r 30 minutes as needed Mouth/Throat every 8 hrs Active Vitamin C 1000 MG as directed Orally Once a day Not-Taking carBAMazepine ER 400 MG 1 tablet Orally Twice a day for 30 day(s) Active Benztropine Mesylate 1 MG Orally twice a day Not-Taking clonazePAM 1 MG 1 tablet Orally Once a day Active [place] Carbonate 300 MG 1 capsule at bedtime Orally four times 3 times a day Not-Taking Triamcinolone Acetonide 0.5 % 1 application Externally Two times a Week Active Vitamin B Complex as directed Orally Not-Taking Prazosin HCl 2 MG 1 capsule at bedtime Orally Once a day for 30 day(s) Active Lovastatin 40 MG 1 tablet with the evening meal Orally Once a day for 30 day(s) Not-Taking cloZAPine 100 MG 1 tablet Orally Once a day Active DOK Not-Taking traZODone HCl 150 MG 1 tablet at bedtime Orally Once a day for 30 day(s) Active Ventolin HFA 108 (90 Base) MCG/ACT Inhalation Not-Taking Vitamin E Active Perphenazine 16 MG 1 tablet Orally three times a day Active Ciclopirox Olamine 0.77 % 1 application Externally Twice a day for 30 days Active Famotidine 20 MG as directed Orally Once a day Active Social History Tobacco Use: Social History Observation Description Date Details (start date - stop date) Former Smoker NA - NA Tobacco Use/Smoking Question Answer Notes Are you a: former smoker Additional Findings: Tobacco Non-User Current no n-smoker Alcohol Screen Question Answer Notes Did you have a drink contain ing alcohol in the past year? Yes How often did you have a dri nk containing alcohol in the past year? 2 to 3 times a week (3 points) Points 3 Interpretation Negative Tobacco use other than smoking: Question Answer Notes Are you an other tobacco user? Yes N icotein Gum Nicoret Problems Problem Type SNOMED Code ICD Code Onset Dates Problem Status W/U Status Risk Notes Problem Plantar wart (28104102) Plantar wart (B07.0) Active confirmed Problem Acquired deformity of right foot (829028989524 94502) PlantarFlexion of metatarsal of right foot (M21.6X1) Active confirmed Problem Acquired deformity of left foot (475250420399 80926) PlantarFlexion of metatarsal of left foot (M21.6X2) Active confirmed Vital Signs Height 6ft3in in 09/27/2023 Weight 260 lbs 09/27/2023 BMI 32.49 kg/m2 09/27/2023 Procedures Procedure Date Ordered Date Performed Result Body Sit e 12164-Sckr Destruction, 1-14 09/27/2023 N/A Encounters Encounter Location Date Provider Diagnosis [facility] [place] [address] [place] [address] 09/27/2023 Becky Black Plantar wart B07.0 ; Metatarsalgia, left foot M77.42 ; Pain in left foot M79.672 ; Tinea pedis of both feet B35.3 ; Pain in left ankle and joints of left foot M25.572 and Bursitis of intermetatarsal bursa of left foot M77.52 [facility] [address] [address] 05/03/2023 Becky Black [facility] [address] [address] 06/08/2023 Becky Black [facility] [address] [address] 10/07/2023 Becky Black [facility] [address] [address] 10/13/2023 Becky Black [facility] [address] [address] 10/18/2023 Becky Black [facility] [address] 11/01/2023 Becky Niko [facility] [address] 11/16/2023 Beckydean Pope [facility] Encounter Date Diagnosis (ICD Code) Assessment Notes Treatment Notes Treatment Clinical Notes Section Notes 09/27/2023 Plantar wart (ICD-10 - B07.0) 09/27/2023 Metatarsalgia, left foot (ICD-10 - M77.42) 09/27/2023 Pain in left foot (ICD-10 - M79.672) 09/27/2023 Tinea pedis of both feet (ICD-10 - B35.3) 09/27/2023 Pain in left ankle and joints of left foot (ICD-10 - M25.572) 09/27/2023 Bursitis of intermetatarsal bursa of left foot (ICD-10 - M77.52) Plan Of Treatment Pending Test Test Name Order Date 79605-QIHUKDC NAIL, 6 OR MORE 12/28/2019 44670-NIFDEWL NAIL, 1-5 05/29/2021 12541-EXWWWCY NAIL, 1-5 08/25/2021 67719-DXVAZGD NAIL, 1-5 02/26/2022 70888-Vbfd Destruction, 1-14 02/26/2022 12944-Ipdl Destruction, 1-14 09/27/2023 38275-Cgsm Destruction, -14 05/29/2021 66978-Plso Destruction, -14 12/28/2019 81934-Woen Destruction, -14 02/13/2021 52191-Gcow Destruction, -14 08/22/2020 60483-Uyzc Destruction, -14 12/06/2020 30831-Kmqyftgn Plate 02/13/2021 98695- Removal of Foreign Body, Subcut 0 05/29/2021 Next Appt Details Provider Name:Becky Pope , 03/30/2024 11:00:00 AM, [address] [facility], [place], [address], Insurance Providers Payer Name Payer Address Payer Phone Subscriber Number Group Number Insured Name Patient Relationship to Insured Coverage Start Date Coverage End Date [facility] CCA SCO Claims [address] [place] [phone] [id number] Cedric Morales Self - patient is the insured Medical (General) History Medical History History ICD Code Psychiatric disorder Cholesterol Anxiety 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
== END 2024-02-14 09:52 | disposition home or self-care (01) ==
LOC: HO.MS 09:51
PROVIDERS: PCP Internal Medicine; Visit Provider Ophthalmology
PROC: (CPT 66821; principal; 2024-02-14 11:30)
DX: H26.491 Other secondary cataract, right eye (principal)
CPT/HCPCS: 66821

== ENCOUNTER 2024-02-21 07:22 | Outpatient (REF) | payer OTHER, SELFPAY ==
--- OUTSIDE RECORDS SUMMARY | 2024-02-21 07:25 | XMS_ITS ---
Author Organization [facility] Address [address] [place] [address] Care Team Providers Care Slotter Operator Name Role Phone Jaswinder Jimenez MD Primary Care Provider Unavailab carmen PopeBecky Unavailable [phone] REASON FOR VISIT ciclopirox/pop Encounters Encounter Location Date Provider Diagnosis [facility] [address] [place] [address] 11/16/2023 Becky Poep Plan Of Treatment Next Appt Details Provider Name:Becky Pope , 03/30/2024 11:00:00 AM, [address] [place], [address], Progress Notes * Cedric PAINTING SDOB:[birth year] (53 yo M)Acc No.[id number]:11/16/2023 Patient:?Cedric Painting S :1970???Age:53 Y???Sex:Male Address:[address] [place] [address], [address], [place], [address] * true * Date:? Generated for Jerryi ishan/Carissa/eTransmitting on:?02/21/2024 07:25 AM EST
--- OUTSIDE RECORDS SUMMARY | 2024-02-21 07:25 | XMS_ITS ---
Author Organization [facility] Address [address] [place] [address] Care Team Providers Care Ed Special Education Teacher Name Role Phone Jaswinder Jimenez MD Primary Care Provider Unavailab carmen Becky Pope Unavailable [phone] REASON FOR VISIT B/L swelling, reaction Encounters Encounter Location Date Provider Diagnosis [facility] [address] [place] [address] 11/01/2023 Becky Niko Plan Of Treatment Next Appt Details Provider Name:Becky Pope , 03/30/2024 11:00:00 AM, [address] [place], [address], Progress Notes * Cedric PAINTING SDOB:[birth year] (53 yo M)Acc No.[id number]:11/01/2023 Patient:?Cedric Painting S :1970???Age:53 Y???Sex:Male Address:[address] [place] [address], [address], [place], [address] * true * Date:? Generated for Jerryi ishan/Carissa/eTransmitting on:?02/21/2024 07:25 AM EST
--- OUTSIDE RECORDS SUMMARY | 2024-02-21 07:25 | XMS_ITS | Patient Health Record ---
Author Organization [facility] Zbigniew andrey ConstantinoKing Address [address] [place] [address] Care Team Providers Care Policy Writer Name Role Phone Jaswinder Jimenez MD Primary Care Provider Becky Minor Unavailable [phone] Allergies Allergen (clinical drug ingredient) Drug/Non Drug Allergy documented on EMR Reaction Allergy Type Onset Date Status valproate Depakote panciritis Drug Allergy Active Haldol head got stuck Drug Allergy Ac tive lithium carbonate [place] Carbonate Unknown Drug Allergy Active Reason For [...] 1 tablet Orally Once a day Active [place] Carbonate 300 MG 1 capsule at bedtime [...] W/U Status Risk Notes Problem Plantar wart (19122509) Plantar wart (B07.0) Active confirmed Problem Acquired deformity of right foot (394027400375 97028) PlantarFlexion of metatarsal of right foot (M21.6X1) Active confirmed Problem Acquired deformity of left foot (652382792186 04079) PlantarFlexion of metatarsal of left foot (M21.6X2) Active confirmed Vital Signs Height 6ft3in in 09/27/2023 Weight 260 lbs 09/27/2023 BMI 32.49 kg/m2 09/27/2023 Procedures Procedure Date Ordered Date Performed Result Body Sit e 93728-Ceui Destruction, 1-14 09/27/2023 N/A Encounters Encounter Location Date Provider Diagnosis [facility] [place] [address] [place] [address] 09/27/2023 Becky Black Plantar wart B07.0 ; Metatarsalgia, left foot M77.42 ; Pain in left foot M79.672 ; Tinea pedis of both feet B35.3 ; Pain in left ankle and joints of left foot M25.572 and Bursitis of intermetatarsal bursa of left foot M77.52 [facility] [address] [address] 05/03/2023 Becky Black [facility] [address] [address] 06/08/2023 Becky Black [facility] [address] [address] 10/07/2023 Becky Black [facility] [address] [address] 10/13/2023 Becky Black [facility] [address] [address] 10/18/2023 Becky Black [facility] [address] 11/01/2023 Becky Niko [facility] [address] 11/16/2023 Beckydean Pope [facility] Encounter Date Diagnosis (ICD Code) Assessment Notes [...] Treatment Pending Test Test Name Order Date 73277-SBJLAMT NAIL, 6 OR MORE 12/28/2019 90368-THCARPP NAIL, 1-5 05/29/2021 96906-CIXXFFY NAIL, 1-5 08/25/2021 97026-OGGULXJ NAIL, 1-5 02/26/2022 99389-Idpu Destruction, 1-14 02/26/2022 56022-Mmtz Destruction, 1-14 09/27/2023 26333-Ppbk Destruction, -14 05/29/2021 95594-Bmis Destruction, -14 12/28/2019 80168-Nuup Destruction, -14 02/13/2021 97025-Mthy Destruction, -14 08/22/2020 74614-Ubuv Destruction, -14 12/06/2020 75729-Blnajvrw Plate 02/13/2021 91257- Removal of Foreign Body, Subcut 0 05/29/2021 Next Appt Details Provider Name:Becky Pope , 03/30/2024 11:00:00 AM, [address] [facility], [place], [address], Insurance Providers Payer Name Payer Address Payer Phone Subscriber Number Group Number Insured Name Patient Relationship to Insured Coverage Start Date Coverage End Date [facility] CCA SCO Claims [address] [place] [phone] [id number] Cedric Morales Self - patient is the insured Medical (General) History Medical History History ICD Code Psychiatric disorder Cholesterol Anxiety 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
--- OUTSIDE RECORDS SUMMARY | 2024-02-21 07:25 | XMS_ITS ---
Author Organization [facility] Address [address] [place] [address] Care Team Providers Care Histotechnician Name Role Phone Jaswinder Jimenez MD Primary Care Provider Unavailab carmen PopeBecky Unavailable [phone] REASON FOR VISIT Ciclopirox Olamine (0.77 % Cream) Encounters Encounter Location Date Provider Diagnosis [address] [address] 10/18/2023 Becky Niko Plan Of Treatment Next Appt Details Provider Name:Becky Pope , 03/30/2024 11:00:00 AM, [address] [place], [address], Progress Notes * Cedric PAINTING SDOB:[birth year] (53 yo M)Acc No.[id number]:10/18/2023 Patient:?Cedric Painting S :1970???Age:53 Y???Sex:Male Address:[address] [place] [address] [address], [place], [address] * true * Date:? Generated for Jerryi ishan/Carissa/eTransmitting on:?02/21/2024 07:25 AM EST
[2024-02-21 07:33] LABS: MANUAL DIFF FLAG NO
[2024-02-21 08:31] LABS: Basophils Percent Auto 0.6 % (0-2); Eosinophils Absolute Auto 0.1 X10*3/uL (0.0-0.4); Eosinophils Percent Auto 0.8 % (0-4); Hematocrit 46.7 % (42.0-52.0); Hemoglobin 15.5 g/dl (14.0-18.0); Imm Gran Abs Auto 0.05 X10*3/uL (0.00-0.03); Imm Gran Pct Auto 0.8 % (0.0-0.4); Lymphocytes Absolute Auto 1.8 X10*3/uL (1.2-4.9); Mean Corpuscular HGB Conc 33.2 g/dl (31.0-36.0); Mean Corpuscular Hemoglobin 33.6 pg (27.0-33.0); Mean Corpuscular Volume 101.3 fL (80.0-98.0); Mean Platelet Volume 10.8 fL (9.4-12.4); Monocytes Absolute Auto 0.5 X10*3/uL (0.1-1.2); Monocytes Percent Auto 7.1 % (2-11); Neutrophils Absolute Auto 4.1 x10*3/uL (2.0-8.3); Neutrophils Percent Auto 63.7 % (45-73); Platelet Count 175 X10*3/uL (160-400); Red Blood Count 4.61 X10*6/uL (4.60-5.80); Red Cell Distribution Width 12.5 % (11.0-16.0); White Blood Count 6.5 X10*3/uL (4.8-10.8)
== END 2024-02-21 07:23 | disposition home or self-care (01) ==
LOC: HO.LABR 07:22
PROVIDERS: PCP Internal Medicine; Visit Provider Psychiatry & Neurology Psychiatry
DX: Z79.899 Other long term (current) drug therapy (principal)
CPT/HCPCS: 36415; 85025

== ENCOUNTER 2024-03-20 07:26 | Outpatient (REF) | payer OTHER, SELFPAY ==
--- OUTSIDE RECORDS SUMMARY | 2024-03-20 07:29 | XMS_ITS ---
Author Organization [facility] Address [address] [place] [address] Care Team Providers Care Performance Manager Name Role Phone Jaswinder Jimenez MD Primary Care Provider Unavailab carmen Becky Pope Unavailable [phone] REASON FOR VISIT B/L swelling, reaction Encounters Encounter Location Date Provider Diagnosis [facility] [address] [place] [address] 11/01/2023 Becky Niko Plan Of Treatment Next Appt Details Provider Name:Becky Pope , 03/30/2024 11:00:00 AM, [address] [place], [address], Progress Notes * Cedric PAINTING SDOB:[birth year] (53 yo M)Acc No.[id number]:11/01/2023 Patient:?Cedric Painting S :1970???Age:53 Y???Sex:Male Address:[address] [place] [address], [address], [place], [address] * true * Date:? Generated for Jerryi ishan/Carissa/eTransmitting on:?03/20/2024 07:29 AM EST
--- OUTSIDE RECORDS SUMMARY | 2024-03-20 07:29 | XMS_ITS | Continuity of Care Document ---
Author Organization [facility]osta [facility] Address [address] [place] [address]- Care Team Providers Care Directory Compiler Name Role Phone Jaswinder Jimenez DO Primary Care Physician [phone] [id number] Date(s): 01/25/24 - 02/24/24 [facility] Adult [address] [place] [address]- Encounter Type: Triage Allergies, Adverse Reactions, Alerts Substance Criticality Severity Reaction Reaction Severity Status Haldol Active Depakote Active lithium carbonate Ac tive Medications Albuterol (Eqv-ProAir HFA) 90 mcg/inh inhalation aerosol 2 puffs, Inhalation, Every 6 hours, # 8.5 Gm, 5 Refills, Maintenance, 09/03/23 10:59:00 AM EDT, [facility], Partial fill upon [...] Refills, Maintenance, 07/20/23 10:48:00 AM EDT, Tablet, [facility], Partial fill upon [...] PM EDT, Powder, Route to Pharmacy Electronically, [id number], [facility] 189, cm, 11/25/23 14:36:00 EDT, Height, 114, [...] Team Personnel Name: Jaswinder Jimenez DO Position: [facility] Physician - Primary Care Member Role: PCP Address: [address] [place] [id number] Telecom: Care Team Related Persons Name: HARVEY VILLEDA Name: FREDERICK PAINTING Insurance Providers Guarantor name: FREDERICK PAINTING Health Plan Information #: 1 Payer: [facility] CARE ALLIANCE/ONE CARE Member Number: NA Policy Number: NA Group Number: NA
--- OUTSIDE RECORDS SUMMARY | 2024-03-20 07:29 | XMS_ITS ---
Author Organization [facility] Address [address] [place] [address] Care Team Providers Care University Intern Name Role Phone Jaswinder Jimenez MD Primary Care Provider Unavailab carmen PopeBecky Unavailable [phone] REASON FOR VISIT ciclopirox/pop Encounters Encounter Location Date Provider Diagnosis [facility] [address] [place] [address] 11/16/2023 Becky Niko Plan Of Treatment Next Appt Details Provider Name:Becky Pope , 03/30/2024 11:00:00 AM, [address] [place], [address], Progress Notes * Cedric PAINTING SDOB:[birth year] (53 yo M)Acc No.[id number]:11/16/2023 Patient:?Cedric Painting S :1970???Age:53 Y???Sex:Male Address:[address] [place] [address], [address], [place], [address] * true * Date:? Generated for Jerryi ishan/Carissa/eTransmitting on:?03/20/2024 07:29 AM EST
--- OUTSIDE RECORDS SUMMARY | 2024-03-20 07:30 | XMS_ITS | Patient Health Record ---
Author Organization [facility] Zbigniew andrey ConstantinoKing Address [address] [place] [address] Care Team Providers Care Tobacco Drummer Name Role Phone Jaswinder Jimenez MD Primary Care Provider Becky Minor Unavailable [phone] Allergies Allergen (clinical drug ingredient) Drug/Non Drug Allergy documented on EMR Reaction Allergy Type Onset Date Status valproate Depakote panciritis Drug Allergy Active Haldol head got stuck Drug Allergy Ac tive lithium carbonate [place] Carbonate Unknown Drug Allergy Active Reason For [...] 1 tablet Orally Once a day Active [place] Carbonate 300 MG 1 capsule at bedtime [...] W/U Status Risk Notes Problem Plantar wart (77497072) Plantar wart (B07.0) Active confirmed Problem Acquired deformity of right foot (727609218903 08034) PlantarFlexion of metatarsal of right foot (M21.6X1) Active confirmed Problem Acquired deformity of left foot (474476259248 35830) PlantarFlexion of metatarsal of left foot (M21.6X2) Active confirmed Vital Signs Height 6ft3in in 09/27/2023 Weight 260 lbs 09/27/2023 BMI 32.49 kg/m2 09/27/2023 Procedures Procedure Date Ordered Date Performed Result Body Sit e 12640-Yuxc Destruction, 1-14 09/27/2023 N/A Encounters Encounter Location Date Provider Diagnosis [facility] [place] [address] [place] [address] 09/27/2023 Becky Black Plantar wart B07.0 ; Metatarsalgia, left foot M77.42 ; Pain in left foot M79.672 ; Tinea pedis of both feet B35.3 ; Pain in left ankle and joints of left foot M25.572 and Bursitis of intermetatarsal bursa of left foot M77.[address] [facility] [address] [address] 05/03/2023 Becky Black [facility] [address] [address] 06/08/2023 Becky Black [facility] [address] [address] 10/07/2023 Becky Black [facility] [address] [address] 10/13/2023 Becky Black [facility] [address] [address] 10/18/2023 Becky Black [facility] [address] 11/01/2023 Becky Niko [facility] [address] 11/16/2023 Beckydean Pope [facility] Encounter Date Diagnosis (ICD Code) Assessment Notes [...] Treatment Pending Test Test Name Order Date 59777-CPERATM NAIL, 6 OR MORE 12/28/2019 30823-LORMMQE NAIL, 1-5 05/29/2021 30344-MRXFQYK NAIL, 1-5 08/25/2021 55558-BWKMQZY NAIL, 1-5 02/26/2022 70618-Verk Destruction, 1-14 02/26/2022 62363-Fchm Destruction, 1-14 09/27/2023 53816-Ubic Destruction, -14 05/29/2021 30343-Zrht Destruction, -14 12/28/2019 43097-Gyjw Destruction, -14 02/13/2021 10436-Oegr Destruction, -14 08/22/2020 34928-Jdol Destruction, -14 12/06/2020 29955-Hfewihvd Plate 02/13/2021 28303- Removal of Foreign Body, Subcut 0 05/29/2021 Next Appt Details Provider Name:Becky Pope , 03/30/2024 11:00:00 AM, [address] [facility], [place], [address], Insurance Providers Payer Name Payer Address Payer Phone Subscriber Number Group Number Insured Name Patient Relationship to Insured Coverage Start Date Coverage End Date [facility] CCA SCO Claims [address] [place] [id number] [phone] [id number] Cedric Morales Self - patient is the insured Medical (General) History Medical History History ICD Code Psychiatric disorder Cholesterol Anxiety 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
--- OUTSIDE RECORDS SUMMARY | 2024-03-20 07:30 | XMS_ITS ---
Author Organization [facility] Address [address] [place] [address] Care Team Providers Care Wiring Mechanic Name Role Phone Jaswinder Jimenez MD Primary Care Provider Unavailab carmen PopeBecky Unavailable [phone] REASON FOR VISIT Ciclopirox Olamine (0.77 % Cream) Encounters Encounter Location Date Provider Diagnosis [address] [address] 10/18/2023 Becky Niko Plan Of Treatment Next Appt Details Provider Name:Becky Pope , 03/30/2024 11:00:00 AM, [address] [place], [address], Progress Notes * Cedric PAINTING SDOB:[birth year] (53 yo M)Acc No.[id number]:10/18/2023 Patient:?Cedric Painting S :1970???Age:53 Y???Sex:Male Address:[address] [place] [address] [address], [place], [address] * true * Date:? Generated for Jerryi ishan/Carissa/eTransmitting on:?03/20/2024 07:29 AM EST
[2024-03-20 07:43] LABS: MANUAL DIFF FLAG NO
[2024-03-20 08:19] LABS: Basophils Percent Auto 0.4 % (0-2); Eosinophils Absolute Auto 0.1 X10*3/uL (0.0-0.4); Eosinophils Percent Auto 0.7 % (0-4); Hematocrit 47.9 % (42.0-52.0); Hemoglobin 16.4 g/dl (14.0-18.0); Imm Gran Abs Auto 0.03 X10*3/uL (0.00-0.03); Imm Gran Pct Auto 0.4 % (0.0-0.4); Lymphocytes Absolute Auto 2.1 X10*3/uL (1.2-4.9); Mean Corpuscular HGB Conc 34.2 g/dl (31.0-36.0); Mean Corpuscular Volume 99.2 fL (80.0-98.0); Mean Platelet Volume 10.6 fL (9.4-12.4); Monocytes Absolute Auto 0.6 X10*3/uL (0.1-1.2); Monocytes Percent Auto 7.9 % (2-11); Neutrophils Absolute Auto 4.5 x10*3/uL (2.0-8.3); Neutrophils Percent Auto 61.6 % (45-73); Platelet Count 172 X10*3/uL (160-400); Red Blood Count 4.83 X10*6/uL (4.60-5.80); White Blood Count 7.3 X10*3/uL (4.8-10.8)
== END 2024-03-20 07:27 | disposition home or self-care (01) ==
LOC: HO.LABR 07:26
PROVIDERS: PCP Internal Medicine; Visit Provider Psychiatry & Neurology Psychiatry
DX: Z79.899 Other long term (current) drug therapy (principal)
CPT/HCPCS: 36415; 85025

== ENCOUNTER 2024-04-19 07:30 | Outpatient (REF) | payer OTHER, SELFPAY ==
--- OUTSIDE RECORDS SUMMARY | 2024-04-19 07:33 | XMS_ITS | Continuity of Care Document ---
Author Organization [facility] Address [address] [place] [address]- Care Team Providers Care Combo Welder Name Role Phone Jaswinder Jimenez DO Primary Care [id number]14/24 [facility] Adult [address] [place] [address]- Encounter Type: Triage Allergies, Adverse Reactions, Alerts Substance Criticality Severity Reaction Reaction Severity Status Haldol Active Depakote Active lithium carbonate Ac tive Medications Albuterol (Eqv-ProAir HFA) 90 mcg/inh inhalation aerosol 2 puffs, Inhalation, Every 6 hours, # 8.5 Gm, 5 Refills, Maintenance, 09/03/23 10:59:00 AM EDT, [facility], Partial fill upon patient [...] Refills, Maintenance, 07/20/23 10:48:00 AM EDT, Tablet, [facility], Partial fill upon [...] a day, # 60 tablet, Refills 0, Tot. Refills 0, Maintenance, 04/13/24 12:55:00 PM EST, Route to Pharmacy Electronically, [facility], Partial fill upon patient request if the prescription is for a schedule II opioid drug., 189, cm, 02/08/24 10:49:00 EST, Height, 114, kg, 11/04/22 23:03:00 EDT, Dry Weight Start Date: 04/13/24 Status: Ordered Quantity: 60.0 Unit: tablet Repeat number: 1 fluticasone-salmeterol 250 mcg-50 mcg inhalation powder 1, inhalation, Inhalation, 2 times a day, rinse mouth and throat after use, # 3 each, Refills 3, Tot. Refills 3, Maintenance, 03/16/24 9:45:00 AM EST, Powder, Route to Pharmacy Electronically, [id number], [facility], 189, cm, 02/08/24 10:49:00 EST, Height, 114, kg, 11/04/22 23:03:00 EDT, Dry Weight Start Date: 03/16/24 Status: Ordered Quantity: 3.0 Unit: each Repeat number: 4 ibuprofen 600 mg oral tablet 600 mg, 1, tablet, By Mouth, Every 8 hours, As needed for pain take with food, # 60 tablet, Refills3, Tot. Refills 3, Maintenance, 03/29/24 3:05:00 PM EST, Route to Pharmacy Electronically, [facility], Partial fill upon patient request if the prescription is for a schedule II opioid drug.,189, cm, 02/08/24 10:49:00 EST, Height, 114, kg, 11/04/22 23:03:00 EDT, Dry Weight Start Date: 03/29/24 Status: Ordered Quantity: 60.0 Unit: tablet Repeat number: 4 ibuprofen 600 mg oral [...] - Primary Care Member Role: PCP Address: [address] [place] [id number] Telecom: Care Team Related Persons Name: HARVEY VILLEDA Name: FREDERICK PAINTING Insurance Providers Guarantor name: FR[facility]ICK [facility] Plan Information #: 1 Payer: [facility] CARE ALLIANCE/[facility] Member Number: NA Policy Number: NA Group Number: NA
--- OUTSIDE RECORDS SUMMARY | 2024-04-19 07:33 | XMS_ITS ---
Author Organization [facility] Address [address] [place] [address] Care Team Providers Care Manager Speech Name Role Phone Jaswinder Jimenez MD Primary Care Provider Unavailab carmen Becky Pope Unavailable [phone] REASON FOR VISIT B/L swelling, reaction Encounters Encounter Location Date Provider Diagnosis [facility] [address] [place] [address] 11/01/2023 Becky Niko Plan Of Treatment Next Appt Details Provider Name:Becky Pope , 10/02/2024 02:30:00 PM, [address] [place], [address], Progress Notes * Cedric PAINTING SDOB:[birth year] (53 yo M)Acc No.[id number]:11/01/2023 Patient:?Cedric Painting S :1970???Age:53 Y???Sex:Male Address:[address] [place] [address], [address], [place], [address] * true * Date:? Generated for Jerryi ishan/Carissa/eTransmitting on:?04/19/2024 07:33 AM EST
--- OUTSIDE RECORDS SUMMARY | 2024-04-19 07:33 | XMS_ITS ---
Author Organization [facility] Zbigniew Constantinoley Address [address] [place] [address] Care Team Providers Care Green Material Value Added Assessor Name Role Phone Jaswinder Jimenez MD Primary Care Provider Unavailab Becky Cruz Unavailable [phone] Allergies Allergen (clinical drug ingredient) Drug/Non Drug Allergy documented on EMR Reaction Allergy Type Onset Date Status valproate Depakote panciritis Drug Allergy Active Haldol head got stuck Drug Allergy Ac tive lithium carbonate [place] Carbonate Unknown Drug Allergy Active REASON FOR VISIT Skin problem(s), Wart(s) Medications Medication SIG (Take, Route, Frequency, Duration) Notes Start Date End Date Status DOK Not-Taking methylPREDNISolone 4 MG 1 tablet with fo od or milk Orally every 12 hrs for 30 day(s) Active Ammonium Lactate 12 % 1 application Externally to affected areas of dry skin to feet except for between the toes Twice a day for 30 days Active Fluticasone Propionate (Inhal) 250 MCG/ACT 1 puff Inhalation Twice a day Active Tamsulosin HCl 0.4 MG 1 capsule Orally Once a day for 30 day(s) Active Benztropine Mesylate 1 MG Orally twice a day Not-Taking Lovastatin 40 MG 1 tablet with the evening meal Orally Once a day for 30 day(s) Not-Taking Vitamin B Complex as directed Orally Not-Taking Ventolin HFA 108 (90 Base) MCG/ACT Inhalation Not-Taking [place] Carbonate 300 MG 1 capsule at bedtime Orally four times 3 times a day Not-Taking Vitamin E Active Vitamin C 1000 MG as directed Orally Once a day Not-Taking Advair HFA 230-21 MCG/ACT Inhalation Twi ce a day Not-Taking Famotidine 20 MG as directed Orally Once a day Active Ciclopirox Olamine 0.77 % 1 application Externally Twice a day for 30 days Active Prazosin HCl 2 MG 1 capsule at bedtime Orally Once a day for 30 day(s) Active Triamcinolone Acetonide 0.5 % 1 application Externally Two times a Week Active Perphenazine 16 MG 1 tablet Orally three times a day Active traZODone HCl 150 MG 1 tablet at bedtime Orally Once a day for 30 day(s) Active cloZAPine 100 MG 1 tablet Orally Once a day Active clonazePAM 1 MG 1 tablet Orally Once a day Active carBAMazepine ER 400 MG 1 tablet Orally Twice a day for 30 day(s) Active Nicotine Polacrilex 2 MG 1 piece chew fo r 30 minutes as needed Mouth/Throat every 8 hrs Active OLANZapine 20 MG 1 tablet Orally Once a day for 30 day(s) Active Social History Tobacco Use: Social History Observation Description Date Details (start date - stop date) Never Smoker NA - NA Tobacco use other than smoking: Question Answer Notes Are you an other tobacco user? Yes N icotein Gum Nicoret Tobacco Control (Standard) Question Answer Notes Tobacco use: Nonsmoker Vital Signs Blood pressure systolic 120 mm Hg 03/30/19 25 Blood pressure diastolic 70 mm Hg 025 Height 6ft3in in 03/30/2024 Weight 250 lbs 03/30/2024 BMI 31.24 kg/m2 03/30/2024 Procedures Procedure Date Ordered Date Performed Result Body Sit e 23307-Xpzy Destruction, 1-14 03/30/2024 N/A Encounters Encounter Location Date Provider Diagnosis [facility] [place] [address] [place] [address] 03/30/2024 Becky Black Left foot pain M79.672 ; Xerosis of skin L85.3 and Plantar wart B07.0 Assessments Encounter Date Diagnosis (ICD Code) Assessment Notes Treatment Notes Treatment Clinical Notes Section Notes 03/30/2024 Left foot pain (ICD-10 - M79.672) 03/30/2024 Xerosis of skin (ICD-10 - L85.3) 03/30/2024 Plantar wart (ICD-10 - B07.0) Plan Of Treatment Medication Medication Name Sig Start Date Stop Date Notes Ammonium Lactate 12 % 1 application Exte rnally to affected areas of dry skin to feet except for between the toes Twice a day for 30 days Pending Test Test Name Order Date 28123-Yijd Destruction, 1-14 03/30/2024 Next Appt Details Follow Up: prn, Reason: Provider Name:Becky Pope , 10/02/2024 02:30:00 PM, [address] [place], [address], Procedure Notes * Category Sub-Category Detail Notes Wart Treatment Procedure Verruca, as desc ribed in exam, were debrided to pin- point bleeding margins with sterile 15 surgical blade, silver nitrate chemocautery applied, recomm. immune-boosting meds such as zinc, recomm. follow up with topical chemosurgical agents, Pt STILL, defers any other forms of tx - 34498 Progress Notes * Cedric PAINTING SDOB:[birth year] (54 yo M)Acc No.[id number]:03/30/2024 Progress Note Patient:?Cedric PAINTING S Provider:?Becky Pope DPM :1970???Age:54 Y???Sex:Male Tej e:03/30/2024 Address:[address] [place] [address], [place] [address] Pcp:Jaswinder Jimenez MD Subjective: * Chief Complaints: * ???Skin problem(s)Wart(s) * HPI: ???Skin problems:?Pt States PCP Visit: ?DATE?01/18/2024 ?Nature:?dryness , scaling.?Location:?B/L .?Duration:?, several months.?Course:?, unchanged.?Treatments:?admits nonadherence to recommended application.? * Medical History:? * Surgical History:?bunion Jasmine anjelica pinky toe surgery prostate surgery 06/10/20eye surgery 01/2024 * Hospitalization/Major Diagno stic Procedure:?[facility]- anxeity 02/2020 * Family History:?Mother: hui moran, cancer, diagnosed with Other malignant neoplasm of unspecified site.?Father: alive, diagnosed with Diabetic - NIDDM, Family history of arthritis.? * Social History:?Tobacco Use:?Tobacco use other than smoking?Are you an other tobacco user??Yes Nicotein Gum Nicoret ?Tobacco Control (Standard)?Tobacco use:?Nonsmoker ???Miscellaneous:?Caffeine: yes, 1-2 cups per day. ?Children: no. ?Exercise: yes, walking, stomach workout. ?Marital status: single. ?Occupation: Unemployed. * Medications:?TakingmethylPRE DNISolone 4 MG Tablet 1 tablet with food or milk Orally every 12 hrs Fluticasone Propionate (Inhal) 250 MCG/ACT Aerosol Powder Breath Activated 1 puff Inhalation Twice a day Tamsulosin HCl 0.4 MG Capsule 1 capsule Orally Once a day Nicotine Polacrilex 2 MG Gum 1 piece chew for 30 minutes as needed Mouth/Throat every 8 hrs OLANZapine 20 MG Tablet 1 tablet Orally Once a day clonazePAM 1 MG Tablet 1 tablet Orally Once a day carBAMazepine ER 400 MG Tablet Extended Release 12 Hour 1 tablet Orally Twice a day Prazosin HCl 2 MG Capsule 1 capsule at bedtime Orally Once a day Triamcinolone Acetonide 0.5 % Cream 1 application Externally Two times a Week traZODone HCl 150 MG Tablet 1 tablet at bedtime Orally Once a day cloZAPine 100 MG Tablet 1 tablet Orally Once a day Perphenazine 16 MG Tablet 1 tablet Orally three times a day Vitamin E Famotidine 20 MG Tablet as directed Orally Once a day Ciclopirox Olamine 0.77 % Cream 1 application Externally Twice a day Taking methylPREDNISolone 4 MG Tablet 1 tablet with food or milk Orally every 12 hrs Taking Fluticasone Propionate (Inhal) 250 MCG/ACT Aerosol Powder Breath Activated 1 puff Inhalation Twice a day Taking Tamsulosin HCl 0.4 MG Capsule 1 capsule Orally Once a day Taking Nicotine Polacrilex 2 MG Gum 1 piece chew for 30 minutes as needed Mouth/Throat every 8 hrs Taking OLANZapine 20 MG Tablet 1 tablet Orally Once a day Taking clonazePAM 1 MG Tablet 1 tablet Orally Once a day Taking carBAMazepine ER 400 MG Tablet Extended Release 12 Hour 1 tablet Orally Twice a day Taking Prazosin HCl 2 MG Capsule 1 capsule at bedtime Orally Once a day Taking Triamcinolone Acetonide 0.5 % Cream 1 application Externally Two times a Week Taking traZODone HCl 150 MG Tablet 1 tablet at bedtime Orally Once a day Taking cloZAPine 100 MG Tablet 1 tablet Orally Once a day Taking Perphenazine 16 MG Tablet 1 tablet Orally three times a day Taking Vitamin E Taking Famotidine 20 MG Tablet as directed Orally Once a day Taking Ciclopirox Olamine 0.77 % Cream 1 application Externally Twice a day Not-Taking/PRNVitamin C 1000 MG Tablet as directed Orally Once a day Advair HFA 230-21 MCG/ACT Aerosol Inhalation Twice a day [place] Carbonate 300 MG Capsule 1 capsule at bedtime Orally four times , Notes to Pharmacist: 3 times a dayBenztropine Mesylate 1 MG Tablet Orally twice a day Lovastatin 40 MG Tablet 1 tablet with the evening meal Orally Once a day Vitamin B Complex as directed Orally Ventolin HFA 108 (90 Base) MCG/ACT Aerosol Solution Inhalation DOK Medication List reviewed and reconciled with the patientNot-Taking/PRN Vitamin C 1000 MG Tablet as directed Orally Once a day Not-Taking/PRN Advair HFA 230-21 MCG/ACT Aerosol Inhalation Twice a day Not-Taking/PRN [place] Carbonate 300 MG Capsule 1 capsule at bedtime Orally four times , Notes to Pharmacist: 3 times a dayNot-Taking/PRN Benztropine Mesylate 1 MG Tablet Orally twice a day Not-Taking/PRN Lovastatin 40 MG Tablet 1 tablet with the evening meal Orally Once a day Not-Taking/PRN Vitamin B Complex as directed Orally Not-Taking/PRN Ventolin HFA 108 (90 Base) MCG/ACT Aerosol Solution Inhalation Not-Taking/PRN DOK Medication List reviewed and reconciled with the patient * Allergies:?Depakote: panciri tisHaldol: head got stuckLithium Carbonateyes[Allergies Verified] Objective: * Vitals:?Ht: 6ft3in, Wt:250, BMI:31.24, Shoe size: 10.5, BP:120/70mm Hg, Ht-cm: 190.5 cm, Wt-k.4 kg. * Examination: ???General Examination: ?GENERAL APPEARANCE:?Reveals a pleasant, alert, well nourished, well- developed, well hydrated individual, who demonstrates proper attention to hygiene/body habitus, and is in no acute distress, Pt serves as own historian for office visit today.?ORIENTED:?person, place, and time.?Dermatologic: ?SKIN FINDINGS:?Skin shows sign(s) of, dryness, scaling, in a stocking fashion, no fissure(s) present, B/L , Skin shows sign(s) of, erythema, scaling, in a moccasin fashion, no fissure(s) present, B/L.?VERRUCA:??Single , multi-loculated , mosaically patterned, round, raised, flat-topped, petechial bleeding papulae(s), with cauliflower appearance and interrruption of skin lines, pain to lateral compression, and size estimated at 2-3mm diameter, plantar Forefoot, LEFT.?Vascular: ?DP PULSES (B):?3/4, B/L.?PT PULSES (B):?3/4, B/L.?CAPILLARY FILL TIME:?immediate, all digits, B/L.?TROPHIC CONDITION-TEXTURE/ELASTICITY/TURGOR/HAIR GROWTH (B):?normal, B/L.?TEMPERTURE GRADIENT (C):?normal, warm to cool, proximal to distal, B/L, B/L.?PIGMENTATION:?normal, B/L.?EDEMA (C):?absent, B/L.? Assessment: * Assessment: 1.?Left foot pain - M79.672? ??2.?Xerosis of skin - L85.3???Specify :Acute problem, Uncomplicated (3),Rx Management (4)???3.?Plantar wart - B07.0 (Primary)??? Plan: * Treatment: 2.?Xerosis of skin? Start Ammonium Lactate Cream, 12 %, 1 application, Externally to affected areas of dry skin to feet except for between the toes, Twice a day, 30 days, 280, Refills 3.?? * Procedures:?Wart Treatment:?Procedure?Verruca, as described in exam, were debrided to pin-point bleeding margins with sterile 15 surgical blade, silver nitrate chemocautery applied, recomm. immune-boosting meds such as zinc, recomm. follow up with topical chemosurgical agents, Pt STILL, defers any other forms of tx - 16895.? * Procedure Codes:?21090 Wart Destruction, 1-14, Modifiers: XS * Preventive Medicine:? ??Counseling:?Discussion:?-13: Office or other outpatient visit for the evaluation and management of an established patient, which required a medically appropriate history and/or examination and LOW level of DECISION MAKING for: 1 STABLE ACUTE UNCOMPLICATED PROBLEM, 2 OR MORE MINOR PROBLEMS, OR 1 STABLE CHRONIC PROBLEM, THAT POSE(S) A LOW RISK FOR MORBIDITY/MORTALITY. The visit on the day of the encounter encompassed interpreting the data and educating the patient as to the nature of their condition, treatment options available according to their individual PMH, meds, allergies, and overall health/living conditions, as well as any potential risks or complications that may occur from a failure to adhere to, and participate in, the recommended course of therapy. The discussion included a complete verbal, and/or written explanation of the examination results, any x-rays taken, the proposed diagnosis, and outline of the treatment plan. A schedule for future care needs was also explained. The patient verbalized an understanding of the instructions at this time and agreed to be an active participant in their treatment. If the patient should think of any questions or concerns after the visit, I have encouraged the patient to call the office.?Xerosis:?Discussed with the Patient the issues that may arise if he/she does not treat their condition : Pain, fissues, infection and furt Recom. evening occlusion with gel sock, The patient was counseled on the diagnosis, potential etiologies, and treatment options for their skin condition. The patient has decided to apply Rx skin creams to their feet save the interspaces while paying special attention to the heels. Such was sent to their pharmacy at the time of visit, her break down of skin..? * Follow Up:?prn * Images: * Sign off status: Completed true * Provider:?Becky Pope DPM Date:?2024 Generated for Jerryi ishan/Carissa/Freddie on:?04/19/2024 07:33 AM EST History and Physical Notes * HPI (History of Present Illness) Category Sub-Category Detail Notes Category Not es Skin problems Nature: dryness , scaling Location: B/L Duration: , several months Course: , unchanged Aggravated by: Treatments: admits nonadherence to recommended application Pt States PCP Visit: DATE: 01/18/2024 Examination Category Sub-Category Detail Notes Category Not es Dermatologic SKIN FINDINGS: Skin shows sign( s) of, dryness, scaling, in a stocking fashion, no fissure(s) present, B/L , Skin shows sign(s) of, erythema, scaling, in a moccasin fashion, no fissure(s) present, B/L VERRUCA: Single , multi-locul ated , mosaically patterned, round, raised, flat- topped, petechial bleeding papulae(s), with cauliflower appearance and interrruption of skin lines, pain to lateral compression, and size estimated at 2-3mm diameter, plantar Forefoot, LEFT General Examination GENERAL APPEARANCE: Reveals a pleasant, alert, well nourished, well-developed, well hydrated individual, who demonstrates proper attention to hygiene/body habitus, and is in no acute distress, Pt serves as own historian for office visit today ORIENTED: person, place, and t reynaldo Vascular DP PULSES (B): 3/4, B/L PT PULSES (B): 3/4, B/L CAPILLARY FILL TIME: immediate, all digi ts, B/L TEMPERTURE GRADIENT (C): normal, warm to cool, proximal to distal, B/L, B/L TROPHIC CONDITION-TEXTURE/ELASTICITY/TURGOR/HAIR GROWTH (B): normal, B/L EDEMA (C): absent, B/L PIGMENTATION: normal, B/L
--- OUTSIDE RECORDS SUMMARY | 2024-04-19 07:33 | XMS_ITS | Patient Health Record ---
Author Organization [facility] Zbigniew andrey ConstantinoKing Address [address] [place] [address] Care Team Providers Care Middle School English Teacher Name Role Phone Jaswnider Jimenez MD Primary Care Provider Becky Minor Unavailable [phone] Allergies Allergen (clinical drug ingredient) Drug/Non Drug Allergy documented on EMR Reaction Allergy Type Onset Date Status valproate Depakote panciritis Drug Allergy Active Haldol head got stuck Drug Allergy Ac tive lithium carbonate [place] Carbonate Unknown Drug Allergy Active Reason For Referral No Information Medications Medication SIG (Take, Route, Frequency, Duration) Notes Start Date End Date Status Prazosin HCl 2 MG 1 capsule at bedtime Orally Once a day for 30 day(s) Active Benztropine Mesylate 1 MG Orally twice a day Not-Taking Triamcinolone Acetonide 0.5 % 1 application Externally Two times a Week Active Lovastatin 40 MG 1 tablet with the evening meal Orally Once a day for 30 day(s) Not-Taking clonazePAM 1 MG 1 tablet Orally Once a day Active carBAMazepine ER 400 MG 1 tablet Orally Twice a day for 30 day(s) Active Perphenazine 16 MG 1 tablet Orally three times a day Active DOK Not-Taking Vitamin E Active traZODone HCl 150 MG 1 tablet at bedtime Orally Once a day for 30 day(s) Active Vitamin B Complex as directed Orally Not-Taking cloZAPine 100 MG 1 tablet Orally Once a day Active Ventolin HFA 108 (90 Base) MCG/ACT Inhalation Not-Taking methylPREDNISolone 4 MG 1 tablet with fo od or milk Orally every 12 hrs for 30 day(s) Active Nicotine Polacrilex 2 MG 1 piece chew fo r 30 minutes as needed Mouth/Throat every 8 hrs Active OLANZapine 20 MG 1 tablet Orally Once a day for 30 day(s) Active Ammonium Lactate 12 % 1 application Externally to affected areas of dry skin to feet except for between the toes Twice a day for 30 days Active Fluticasone Propionate (Inhal) 250 MCG/ACT 1 puff Inhalation Twice a day Active Tamsulosin HCl 0.4 MG 1 capsule Orally Once a day for 30 day(s) Active Vitamin C 1000 MG as directed Orally Once a day Not-Taking Advair HFA 230-21 MCG/ACT Inhalation Twi ce a day Not-Taking Famotidine 20 MG as directed Orally Once a day Active Ciclopirox Olamine 0.77 % 1 application Externally Twice a day for 30 days Active [place] Carbonate 300 MG 1 capsule at bedtime Orally four times 3 times a day Not-Taking Social History Tobacco Use: Social History Observation Description Date Details (start date - stop date) Never Smoker NA - NA Alcohol Screen Question Answer Notes Did you [...] (Standard) Question Answer Notes Tobacco use: Nonsmoker Problems Problem Type SNOMED Code ICD Code Onset Dates Problem Status W/U Status Risk Notes Problem Plantar wart (01307444) Plantar wart (B07.0) Active confirmed Problem Acquired deformity of right foot (850091861066 ) PlantarFlexion of metatarsal of right foot (M21.6X1) Active confirmed Problem Acquired deformity of left foot (411814636139 50604) PlantarFlexion of metatarsal of left foot (M21.6X2) Active confirmed Vital Signs Blood pressure diastolic 70 mm Hg 03/30/2024 Height 6ft3in in 03/30/2024 Blood pressure systolic 120 mm Hg 03/30/2024 Weight 250 lbs 03/30/2024 BMI 31.24 kg/m2 03/30/2024 Procedures Procedure Date Ordered Date Performed Result Body Sit e 86581-Mhxi Destruction, 03-2109/27/2023 N/A 28678-Cdwg Destruction, 03-2103/30/2024 N/A Encounters Encounter Location Date Provider Diagnosis [facility] [place] [address] [place] [address] 09/27/2023 Becky Black Plantar wart B07.0 ; Metatarsalgia, left foot M77.42 ; Pain in left foot M79.672 ; Tinea pedis of both feet B35.3 ; Pain in left ankle and joints of left foot M25.572 and Bursitis of intermetatarsal bursa of left foot M77.[address] [facility] [address] [address] 03/30/2024 Becky Black Left foot pain M79.6 72 ; Xerosis of skin L85.3 and Plantar wart B07.[address] [facility] [address] [address] 05/03/2023 Becky Black [facility] [address] 06/08/2023 Becky Black [facility] [address] [address] 10/07/2023 Becky Black [facility] [address] [address] 10/13/2023 Becky Black [facility] [address] [address] 10/18/2023 Becky Black [facility] [address] 11/01/2023 Becky Black [facility] [address] 11/16/2023 Becky Black Assessments Encounter Date Diagnosis (ICD Code) Assessment Notes Treatment Notes Treatment Clinical Notes Section Notes 09/27/2023 Plantar wart (ICD-10 - B07.0) 09/27/2023 Metatarsalgia, left foot (ICD-10 - M77.42) 03/30/2024 Left foot pain (ICD-10 - M79.672) 03/30/2024 Xerosis of skin (ICD-10 - L85.3) 09/27/2023 Pain in left foot (ICD-10 - M79.672) 03/30/2024 Plantar wart (ICD-10 - B07.0) 09/27/2023 Tinea pedis of both feet (ICD-10 - B35.3) 09/27/2023 Pain in left ankle and joints of left foot (ICD-10 - M25.572) 09/27/2023 Bursitis of intermetatarsal bursa of left foot (ICD-10 - M77.52) Plan Of Treatment Pending Test Test Name Order Date [id number] NAIL, 6 OR MORE 12/28/2019 06500-WNEMFPU NAIL, 1-5 05/29/2021 11337-BURFICF NAIL, 1-5 08/25/2021 34645-KGKXRIV NAIL, 1-5 02/26/2022 08692-Ardx Destruction, 1-14 02/26/2022 62868-Hywx Destruction, 1-14 09/27/2023 69372-Dowc Destruction, 1-14 03/30/2024 64698-Rjoa Destruction, 1-14 05/29/2021 51711-Frrh Destruction, 1-14 12/28/2019 11776-Zreo Destruction, 1-14 02/13/2021 25542-Nrpg Destruction, 1-14 08/22/2020 64280-Hxad Destruction, 1-14 12/06/2020 00734-Uclnoews Plate 02/13/2021 66885- Removal of Foreign Body, Subcut 0 05/29/2021 Next Appt Details Provider Name:Becky Pope , 10/02/2024 02:30:00 PM, [address] [facility], [place], [address], Insurance Providers Payer Name Payer Address Payer Phone Subscriber Number Group Number Insured Name Patient Relationship to Insured Coverage Start Date Coverage End Date [facility] Adv [address] [place] [address] [id number] Cedric Morales Self - patient is the insured Medical (General) History Medical History History ICD Code Psychiatric disorder Cholesterol Anxiety 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
--- OUTSIDE RECORDS SUMMARY | 2024-04-19 07:34 | XMS_ITS ---
Author Organization [facility] Address [address] [place] [address] Care Team Providers Care Antique Clocks Repairer Name Role Phone Jaswinder Jimenez MD Primary Care Provider Unavailab carmen PopeJaninee Unavailable [phone] REASON FOR VISIT ciclopirox/pop Encounters Encounter Location Date Provider Diagnosis [facility] [address] [place] [address] 11/16/2023 Becky Pope Plan Of Treatment Next Appt Details Provider Name:Becky Pope , 10/02/2024 02:30:00 PM, [address] [place], [address], Progress Notes * Cedric PAINTING SDOB:[birth year] (53 yo M)Acc No.[id number]:11/16/2023 Patient:?Cedric Painting S :1970???Age:53 Y???Sex:Male Address:[address] [place] [address], [address], [place], [address] * true * Date:? Generated for Jerryi ishan/Carissa/eTransmitting on:?04/19/2024 07:33 AM EST
[2024-04-19 07:42] LABS: MANUAL DIFF FLAG NO
[2024-04-19 08:28] LABS: Basophils Percent Auto 0.5 % (0-2); Eosinophils Absolute Auto 0.1 X10*3/uL (0.0-0.4); Hematocrit 47.7 % (42.0-52.0); Hemoglobin 16.1 g/dl (14.0-18.0); Imm Gran Abs Auto 0.04 X10*3/uL (0.00-0.03); Imm Gran Pct Auto 0.7 % (0.0-0.4); Lymphocytes Absolute Auto 1.7 X10*3/uL (1.2-4.9); Lymphocytes Percent Auto 27.8 % (20-40); Mean Corpuscular HGB Conc 33.8 g/dl (31.0-36.0); Mean Corpuscular Hemoglobin 33.8 pg (27.0-33.0); Mean Platelet Volume 10.4 fL (9.4-12.4); Monocytes Absolute Auto 0.5 X10*3/uL (0.1-1.2); Monocytes Percent Auto 7.9 % (2-11); Neutrophils Absolute Auto 3.8 x10*3/uL (2.0-8.3); Neutrophils Percent Auto 62.1 % (45-73); Platelet Count 188 X10*3/uL (160-400); Red Blood Count 4.77 X10*6/uL (4.60-5.80); Red Cell Distribution Width 11.9 % (11.0-16.0); White Blood Count 6.1 X10*3/uL (4.8-10.8)
== END 2024-04-19 07:31 | disposition home or self-care (01) ==
LOC: HO.LABR 07:30
PROVIDERS: PCP Family Medicine; Visit Provider Psychiatry & Neurology Psychiatry
DX: Z79.899 Other long term (current) drug therapy (principal)
CPT/HCPCS: 36415; 85025

== ENCOUNTER 2024-05-19 07:26 | Outpatient (REF) | payer OTHER, SELFPAY ==
[2024-05-19 07:40] LABS: MANUAL DIFF FLAG NO
[2024-05-19 07:57] LABS: Basophils Percent Auto 0.5 % (0-2); Eosinophils Absolute Auto 0.1 X10*3/uL (0.0-0.4); Eosinophils Percent Auto 0.8 % (0-4); Hematocrit 45.4 % (42.0-52.0); Hemoglobin 15.5 g/dl (14.0-18.0); Imm Gran Abs Auto 0.02 X10*3/uL (0.00-0.03); Imm Gran Pct Auto 0.3 % (0.0-0.4); Lymphocytes Absolute Auto 1.6 X10*3/uL (1.2-4.9); Lymphocytes Percent Auto 24.8 % (20-40); Mean Corpuscular HGB Conc 34.1 g/dl (31.0-36.0); Mean Corpuscular Hemoglobin 33.5 pg (27.0-33.0); Mean Corpuscular Volume 98.1 fL (80.0-98.0); Mean Platelet Volume 10.2 fL (9.4-12.4); Monocytes Absolute Auto 0.5 X10*3/uL (0.1-1.2); Monocytes Percent Auto 8.2 % (2-11); Neutrophils Absolute Auto 4.2 x10*3/uL (2.0-8.3); Neutrophils Percent Auto 65.4 % (45-73); Platelet Count 166 X10*3/uL (160-400); Red Blood Count 4.63 X10*6/uL (4.60-5.80); Red Cell Distribution Width 12.1 % (11.0-16.0); White Blood Count 6.4 X10*3/uL (4.8-10.8)
== END 2024-05-19 07:27 | disposition home or self-care (01) ==
LOC: HO.LAB 07:26
DX: Z79.899 Other long term (current) drug therapy (principal)
CPT/HCPCS: 36415; 85025

== ENCOUNTER 2024-06-22 07:18 | Outpatient (REF) | payer OTHER, SELFPAY ==
--- OUTSIDE RECORDS SUMMARY | 2024-06-22 07:22 | XMS_ITS ---
Author Organization [facility] Address [address] [place] [address] Care Team Providers Care Blood Coordinator Name Role Phone Jaswinder Jimenez MD Primary Care Provider Unavailab carmen PopeBecky Unavailable [phone] REASON FOR VISIT ciclopirox/pop Encounters Encounter Location Date Provider Diagnosis [facility] [address] [place] [address] 11/16/2023 Becky Pope Plan Of Treatment Next Appt Details Provider Name:Becky Pope , 10/02/2024 02:30:00 PM, [address] [place], [address], Progress Notes * Cedric PAINTING SDOB:[birth year] (53 yo M)Acc No.[id number]:11/16/2023 Patient:?Cedric Painting S :1970???Age:53 Y???Sex:Male Address:[address] [place] [address], [address], [place], [address] * true * Date:? Generated for Printi ishan/Carissa/eTransmitting on:?06/22/2024 07:22 AM EDT
--- OUTSIDE RECORDS SUMMARY | 2024-06-22 07:22 | XMS_ITS | Continuity of Care Document ---
Author Organization [facility], [place], operated by [facility] lt Address [address] [place] [address]- Care Team Providers Care Executive Producer Promos Name Role Phone Ashley Alves MD Primary Care Physician [id number] Date(s): 05/19/24 - 06/18/24 [facility] [place] [address] [place] [address]- Encounter Type: Triage Allergies, Adverse Reactions, Alerts Substance Criticality Severity Reaction Reaction Severity Status Haldol Active Depakote Active lithium carbonate Ac tive Medications Albuterol (Eqv-ProAir HFA) 90 mcg/inh inhalation aerosol 2 puffs, Inhalation, Every 6 hours, # 8.5 Gm, 5 Refills, Maintenance, 09/03/23 10:59:00 AM EDT, [facility] # [facility], Partial fill upon patient [...] Refills, Maintenance, 07/20/23 10:48:00 AM EDT, Tablet, [facility], Partial fill upon [...] number: 1 famotidine 20 mg oral tablet See Instructions, TAKE ONE TABLET BY MOUTH TWICE A DAY, # 60 tablet, Refills 0, Maintenance, 06/16/24 1:43:00 PM EDT, Instructions Replace Required Details, Route to Pharmacy Electronically, [facility], 189, cm, 02/08/24 10:49:00 EST, Height, 114, kg, 11/04/22 23:03:00 EDT, Dry Weight Start Date: 06/16/24 Status: Ordered Quantity: 60.0 Unit: tablet Repeat number: 1 famotidine 20 mg oral tablet 20 mg, 1, tablet, By Mouth, 2 times a day, # 60 tablet, Refills 5, Tot. Refills 5, Maintenance, 05/19/24 9:36:00 PM EDT, Route to Pharmacy Electronically, [facility] # [facility], Partial fill upon patient request if the prescription is for a schedule II opioid drug., 189, cm, 02/08/24 10:49:00 EST, Height, 114, kg, 11/04/22 23:03:00 EDT, Dry Weight Start Date: 05/19/24 Status: Ordered Quantity: 60.0 Unit: tablet Repeat number: 6 famotidine 20 mg oral tablet See Instructions, TAKE ONE TABLET BY MOUTH TWICE A DAY, # 60 tablet, Refills 0, Maintenance, 05/19/24 9:39:00 PM EDT, Instructions Replace Required Details, Route to Pharmacy Electronically, [facility] # [facility], 189, cm, 02/08/24 10:49:00 EST, Height, 114, kg, 11/04/22 23:03:00 EDT, Dry Weight Start Date: 05/19/24 Status: Ordered Quantity: 60.0 Unit: tablet Repeat number: 1 fluticasone-salmeterol 250 mcg-50 mcg inhalation powder 1, inhalation, Inhalation, 2 times a day, rinse mouth and throat after use, # 3 each, Refills 3, Tot. Refills 3, Maintenance, 03/16/24 9:45:00 AM EST, Powder, Route to Pharmacy Electronically, [id number], [facility] # 50, 189, cm, 02/08/24 10:49:00 [...] PM EST, Route to Pharmacy Electronically, [facility] # 50, Partial fill upon patient [...] 1 Refills, Maintenance, 10/07/23 4:19:00 PM EDT, [facility] # [facility], 30, APPLY TOPICALLY TWO TIMES A DAY TO SCALP AND EAR, 189, cm, 09/03/23 10:47:00 EDT, Height, 114, kg, 08/30/23 23:03:00 EDT, Dry Weight Start Date: 10/07/23 [...] Care team information Care Team Personnel Name: Ashley Alves MD Position: [facility] Physician - Primary Care Member Role: PCP Address: [address] [place] [id number] Telecom: Care Team Related Persons Name: HARVEY VILLEDA Name: FREDERICK PAINTING Insurance Providers Guarantor name: FREDERICK PAINTING Health Plan Information #: 1 Payer: [facility] Member Number: NA Policy Number: NA Group Number: NA
--- OUTSIDE RECORDS SUMMARY | 2024-06-22 07:22 | XMS_ITS ---
Author Organization [facility] Zbigniew balderas King Address [address] [place] [address] Care Team Providers Care Stucco Plasterer Name Role Phone Jaswinder Jimenez MD Primary Care Provider Unavailab Becky Cruz Unavailable [phone] Allergies Allergen (clinical drug ingredient) Drug/Non Drug Allergy documented on EMR Reaction Allergy Type Onset Date Status valproate Depakote panciritis Drug Allergy Active Haldol head got stuck Drug Allergy Ac tive lithium carbonate [place] Carbonate Unknown Drug Allergy Active REASON FOR [...] HFA 108 (90 Base) MCG/ACT Inhalation Not-Taking [place] Carbonate 300 MG 1 capsule at bedtime [...] Answer Notes Tobacco use: Nonsmoker Vital Signs Height 6ft3in in 03/30/2024 Weight 250 lbs 03/30/2024 BMI 31.24 kg/m2 03/30/2024 Blood pressure systolic 120 mm Hg 03/30/19 25 Blood pressure diastolic 70 mm Hg 025 Procedures Procedure Date Ordered Date Performed Result Body Sit e 19758-Fwik Destruction, 1-14 03/30/2024 N/A Encounters Encounter Location Date Provider Diagnosis [facility] [place] [address] [place] [address] 03/30/2024 Becky Black Left foot pain M79.672 [...] days Pending Test Test Name Order Date 84103-Vzpg Destruction, 1-14 03/30/2024 Next Appt Details Follow Up: prn, Reason: Provider Name:Becky Pope , 10/02/2024 02:30:00 PM, [address] [place], [address], Procedure Notes * Category Sub-Category Detail Notes Wart Treatment Procedure Verruca, as desc ribed in exam, were debrided to pin- point bleeding margins with sterile 15 surgical blade, silver nitrate chemocautery applied, recomm. immune-boosting meds such as zinc, recomm. follow up with topical chemosurgical agents, Pt STILL, defers any other forms of tx - 67494 Progress Notes * Cedric PAINTING SDOB:[birth year] (54 yo M)Acc No.[id number]:03/30/2024 Progress Note Patient:?Cedric PAINTING S Provider:?Becky Pope DPM :1970???Age:54 Y???Sex:Male Tej e:03/30/2024 Address:[address] [place] [address], [place] [address] Pcp:Jaswinder Jimenez MD Subjective: * Chief Complaints: [...] 230-21 MCG/ACT Aerosol Inhalation Twice a day [place] Carbonate 300 MG Capsule 1 capsule at [...] MCG/ACT Aerosol Inhalation Twice a day Not-Taking/PRN [place] Carbonate 300 MG Capsule 1 capsule at [...] defers any other forms of tx - 69480.? * Procedure Codes:?97986 Wart Destruction, 1-14, Modifiers: XS * Preventive [...] Provider:?Becky Pope DPM Date:?2024 Generated for Jerryi ishan/Carissa/Cliftonitting on:?06/22/2024 07:21 AM EDT History and Physical Notes * HPI (History [...]
--- OUTSIDE RECORDS SUMMARY | 2024-06-22 07:22 | XMS_ITS | Patient Health Record ---
Author Organization [facility] [place] Address [address] [place] [address] Care Team Providers Care Tdp Displays Analyst Name Role Phone Jaswinder Jimenez MD Primary Care Provider Becky Minor Unavailable [phone] Allergies Allergen (clinical drug ingredient) Drug/Non Drug Allergy documented on EMR Reaction Allergy Type Onset Date Status valproate Depakote panciritis Drug Allergy Active Haldol head got stuck Drug Allergy Ac tive lithium carbonate [place] Carbonate Unknown Drug Allergy Active Reason For [...] Twice a day for 30 days Active [place] Carbonate 300 MG 1 capsule at bedtime [...] W/U Status Risk Notes Problem Plantar wart (54783530) Plantar wart (B07.0) Active confirmed Problem Acquired deformity of right foot (960242888898 ) PlantarFlexion of metatarsal of right foot (M21.6X1) Active confirmed Problem Acquired deformity of left foot (333536552479 47182) PlantarFlexion of metatarsal of left foot (M21.6X2) Active confirmed Vital Signs Blood pressure diastolic 70 mm Hg 03/30/2024 Height 6ft3in in 03/30/2024 Blood pressure systolic 120 mm Hg 03/30/2024 Weight 250 lbs 03/30/2024 BMI 31.24 kg/m2 03/30/2024 Procedures Procedure Date Ordered Date Performed Result Body Sit e 45804-Anki Destruction, 03-2109/27/2023 N/A 06227-Irvp Destruction, 03-2103/30/2024 N/A Encounters Encounter Location Date Provider Diagnosis [facility] [place] [address] [place] [address] 09/27/2023 Becky Black Plantar wart B07.0 ; Metatarsalgia, left foot M77.42 ; Pain in left foot M79.672 ; Tinea pedis of both feet B35.3 ; Pain in left ankle and joints of left foot M25.572 and Bursitis of intermetatarsal bursa of left foot M77.[address] [facility] [address] [address] 03/30/2024 Becky Black Left foot pain M79.6 72 ; Xerosis of skin L85.3 and Plantar wart B07.[address] [facility] [address] [address] 10/07/2023 Becky Black [facility] [address] 10/13/2023 Becky Black [facility] [address] 10/18/2023 Becky Black [facility] [address] 11/01/2023 Becky Black [facility] [address] 11/16/2023 Becky Black Assessments Encounter Date Diagnosis [...] Treatment Pending Test Test Name Order Date 25396-WLEOLZV NAIL, 6 OR MORE 12/28/2019 28963-KAEEHXX NAIL, 1-5 05/29/2021 30503-HQACTUX NAIL, 1-5 08/25/2021 03109-BZIYHYV NAIL, 1-5 02/26/2022 50971-Fbkd Destruction, 1-14 02/26/2022 22209-Jszc Destruction, 1-14 09/27/2023 67773-Kvdl Destruction, 1-14 03/30/2024 23251-Otzl Destruction, 1-14 05/29/2021 49136-Bpkx Destruction, 1-14 12/28/2019 10176-Ewmo Destruction, 1-14 02/13/2021 06760-Vppm Destruction, 1-14 08/22/2020 30462-Gusv Destruction, 1-14 12/06/2020 62615-Laaszain Plate 02/13/2021 62769- Removal of Foreign Body, Subcut 0 05/29/2021 Next Appt Details Provider Name:Becky Davalos Niko , 10/02/2024 02:30:00 PM, [address] [facility], [place], [address], Insurance Providers Payer Name Payer Address Payer Phone Subscriber Number Group Number Insured Name Patient Relationship to Insured Coverage Start Date Coverage End Date [facility] Adv [address] [place] 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
--- OUTSIDE RECORDS SUMMARY | 2024-06-22 07:22 | XMS_ITS ---
Author Organization [facility] Address [address] [place] [address] Care Team Providers Care Rigger Chief Name Role Phone Jaswinder Jimenez MD Primary Care Provider Unavailab carmen Becky Pope Unavailable [phone] REASON FOR VISIT B/L swelling, reaction Encounters Encounter Location Date Provider Diagnosis [facility] [address] [place] [address] 11/01/2023 Becky Niko Plan Of Treatment Next Appt Details Provider Name:Becky Pope , 10/02/2024 02:30:00 PM, [address] [place], [address], Progress Notes * Cedric PAINTING SDOB:[birth year] (53 yo M)Acc No.[id number]:11/01/2023 Patient:?Cedric Painting S :1970???Age:53 Y???Sex:Male Address:[address] [place] [address], [address], [place], [address] * true * Date:? Generated for Printi ishan/Carissa/eTransmitting on:?06/22/2024 07:21 AM EDT
[2024-06-22 07:36] LABS: MANUAL DIFF FLAG NO
[2024-06-22 07:55] LABS: Basophils Percent Auto 0.5 % (0-2); Eosinophils Absolute Auto 0.1 X10*3/uL (0.0-0.4); Eosinophils Percent Auto 1.3 % (0-4); Hematocrit 46.2 % (42.0-52.0); Hemoglobin 15.7 g/dl (14.0-18.0); Imm Gran Abs Auto 0.03 X10*3/uL (0.00-0.03); Imm Gran Pct Auto 0.5 % (0.0-0.4); Lymphocytes Absolute Auto 1.5 X10*3/uL (1.2-4.9); Mean Corpuscular Hemoglobin 33.8 pg (27.0-33.0); Mean Corpuscular Volume 99.6 fL (80.0-98.0); Mean Platelet Volume 10.5 fL (9.4-12.4); Monocytes Absolute Auto 0.4 X10*3/uL (0.1-1.2); Monocytes Percent Auto 7.9 % (2-11); Neutrophils Absolute Auto 3.4 x10*3/uL (2.0-8.3); Neutrophils Percent Auto 61.8 % (45-73); Platelet Count 172 X10*3/uL (160-400); Red Blood Count 4.64 X10*6/uL (4.60-5.80); Red Cell Distribution Width 12.6 % (11.0-16.0); White Blood Count 5.5 X10*3/uL (4.8-10.8)
== END 2024-06-22 07:19 | disposition home or self-care (01) ==
LOC: HO.LABR 07:18
PROVIDERS: Visit Provider Psychiatry & Neurology Psychiatry
DX: Z79.899 Other long term (current) drug therapy (principal)
CPT/HCPCS: 36415; 85025